=== PATIENT | male | born 1955 | race Caucasian/White ===

== ENCOUNTER 2018-03-19 07:16 | Day surgery (SDC) | payer OTHER, SELFPAY ==
--- NOTE | 2018-03-19 | COLBX_PTH ---
PATIENT: MEIR LANDRUM LOC: EN U#:[id number] AGE/SX: 62/M ROOM: RE03/19/[address]: Dr. Marisol Colin MD : 1955 BED: DIS: 03/19/2018 SPEC #: [id number] RECD: 03/19/18 14:16 STATUS: PAT FRANCISCO #: [id number] VU: 03/19/18 00:[address]: Marisol Colin DEPT: SURGICAL PATHOLOGY RECD BY: Min Stubbs ENTERED: 03/19/18 14:16 SP TYPE: COLON BX OTHR DR: Dr. Nicolás Hernandez, DO Tissues: A - Cecum, NOS B - Descending colon Procedures: Surgery Specimen Level IV HEADER OPERATION: Colonoscopy (MAC) PRE-OP DIAGNOSIS: Screening TISSUE SUBMITTED: A ? Cecum polyp biopsy, B ? Descending colon polyp biopsy MICROSCOPIC DIAGNOSIS A. Cecum polyp, biopsy: Fragments of tubular adenoma. B. Descending colon polyp, biopsy: Fragments of tubular adenoma. BRISEYDA:alissa 03/20/18 MICROSCOPIC DESCRIPTION Slides are reviewed. GROSS DESCRIPTION A - Received in fixative is one container labeled with the patient's name and designated cecum polyp biopsy. The specimen consists of multiple irregular fragments of light mendez soft tissue that in aggregate measure 0.8 x 0.3 x 0.1 cm. The specimen is totally submitted in one cassette. B - Received in fixative is one container labeled with the patient's name and designated descending colon polyp biopsy. The specimen consists of two irregular fragments of light mendez soft tissue that in aggregate measure 0.8 x 0.3 x 0.1 cm. The specimen is totally submitted in one cassette. / SJ:alissa 03/19/18 TC:1 CPT: 70940 x2
[2018-03-19 07:34] VITALS: BP 112/81; PULSE 81; RESP 16; TEMP 36.7; O2SAT 98; BMI 28.5
[2018-03-19 10:07] VITALS: BP 112/81; BP 116/73; PULSE 87; RESP 16; TEMP 36.6; O2SAT 98
[2018-03-19 10:12] VITALS: BP 112/81; BP 121/85; PULSE 80; RESP 16; O2SAT 98
[2018-03-19 10:17] VITALS: BP 112/81; BP 127/86; PULSE 78; RESP 16; O2SAT 99
[2018-03-19 10:22] VITALS: BP 112/81; BP 123/87; PULSE 77; RESP 16; TEMP 36.4; O2SAT 99
--- NOTE | 2018-03-19 10:39 | PCM.OPRPT ---
Report of Operation Date of Procedure: 03/19/18 Pre-Operative Diagnosis: Screening for colon cancer, history of diverticulitis Post-Operative Diagnosis: Cecal and descending colon polyp, diverticulosis of the descending and sigmoid colon Surgery/Procedure Performed:: Colonoscopy with biopsy Type of Anesthesia:: MAC Anesthesiologist: Randal Watson Specimen's removed: 1 cecal polyp, 2 descending colon polyp Estimated Blood Loss (mL): Minimal Description of Procedure: Procedure: Colonoscopy After reviewing the risks benefits, the patient was deemed in satisfactory condition to undergo procedure. After obtaining informed consent, the scope was passed under direct visualization. Throughout the procedure, the patient's blood pressure pulse and position saturations were monitored continuously anesthesia. The colonoscope was introduced through the anus and advanced to the cecum, identified by the appendiceal orifice, IC valve and transillumination. The colonoscopy was performed without difficulty. The patient tolerated procedure well. Quality of bowel prep was good. Findings: The perianal and digital rectal exam were normal. Small linear cecal polyp was seen in the cecum and removed completely with cold forceps biopsies. Two additional small sessile polyps are seen in the descending colon and removed completely with cold forceps biopsies. There is also noted to be moderate diverticulosis of the descending and sigmoid colon. Otherwise the colon (entire examined portion) appeared normal. Retroflexed view of the distal rectum and anal verge was normal and showed no anal or rectal abnormalities Impression: 1. Small cecal and descending colon polyps removed completely with cold forceps biopsies. 2. Moderate diverticulosis of the descending and sigmoid colon 3. The distal rectal and anal verge were normal on retroflexed view. Recommendations: Await biopsies Repeat colonoscopy in 3-5 years for screening purposes depending on biopsies - Complications None
[2018-03-19 10:44] VITALS: BP 112/81
== END 2018-03-19 10:51 | disposition home or self-care (01) ==
LOC: EN 07:16 → AC 07:17
PROVIDERS: Family Provider Family Medicine; PCP Family Medicine; Visit Provider Surgery
PROC: 0DJD8ZZ Inspection of Lower Intestinal Tract, Via Natural or Artificial Opening Endoscopic (ICD-10-PCS; CPT 45378; principal; 2018-03-19 08:25)
DX: Z12.11 Encounter for screening for malignant neoplasm of colon (principal); K57.90 Diverticulosis of intestine, part unspecified, without perforation or abscess without bleeding; D12.0 Benign neoplasm of cecum; D12.4 Benign neoplasm of descending colon; I25.10 Atherosclerotic heart disease of native coronary artery without angina pectoris; Z95.5 Presence of coronary angioplasty implant and graft; I10 Essential (primary) hypertension; E78.5 Hyperlipidemia, unspecified; G47.33 Obstructive sleep apnea (adult) (pediatric); M19.90 Unspecified osteoarthritis, unspecified site; Z85.828 Personal history of other malignant neoplasm of skin; Z79.02 Long term (current) use of antithrombotics/antiplatelets; Z79.899 Other long term (current) drug therapy; M51.36 Other intervertebral disc degeneration, lumbar region
CPT/HCPCS: 45380; 88305; J7120

== ENCOUNTER → 2018-07-09 06:43 | Outpatient (CLI) | payer OTHER, SELFPAY ==
--- NOTE | 2018-07-09 06:48 | CT_ITS ---
STUDY: LOW DOSE CT LUNG CANCER SCREENING REASON FOR EXAM: Male, 63 years old. 45 pack-year history. Current smoker. RADIATION DOSAGE (If Supplied By Facility): CTDIvol = ( 4.02 ) mGy, DLP = ( 141.95 ) mGycm TECHNIQUE: No contrast was administered. Low dose technique was utilized (average mAS-38 and kVp 120). 1.25 mm axial source images with a slice interval of 1.25-mm were reconstructed in lung windows. 2.5 mm axial source images with a slice interval of 2.5-mm were reconstructed in lung windows. 5.0 mm axial source images with a slice interval of 5.0-mm were reconstructed in soft tissue windows. Nodule measured using lung windows on PACS and/or independent workstation with automated measurement of minimum and maximum diameter. Nodule measurement reported as average diameter rounded to the nearest whole number. Growth is defined as an increase ins size of greater than 1.5 mm. COMPARISON: Chest, April 17, 2017. NODULES: Total lung nodules (excluding granulomas): Emphysema: There are mild emphysematous changes. There is evidence of subpleural fibrosis and honeycombing in the anterior upper lobes. Endobronchial lesion: None Aorta: There is atherosclerotic tortuosity of the thoracic aorta without aneurysm. Coronary arteries: There are coronary artery calcifications. There is evidence of coronary stents. Heart: The heart is normal in size. Normal pericardium. Pulmonary artery: Normal Mediastinal nodes: None Other chest and abdominal findings: Minimal degenerative changes on the thoracic spine. 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 IMPORTANT NOTES FOR USE: ACR Lung-RADS Version 1.0 Assessment Categories Release Date: January 03, 2014 Category: Coded 0-4 bases on nodule(s) with highest degree of suspicion. Negative screen is defined as categories 1 and 2; a positive screen is defined as categories 3 and 4. Category 3 and 4A nodules that are unchanged on interval CT should be coded as category 2, and individuals returned to screening in 12 months. Category 4X: Category 3 or 4 nodules with additional imaging findings that increase the suspicion of lung cancer, such as spiculation, GGN that doubles in size in 1 year, enlarged lymph notes, etc. Category Modifiers: S (significant finding unrelated to lung cancer) and C (prior history of treated lung cancer) may be added to the 0-4 Lung-RADS Electronically Signed: Lazaro Corey DO at 20:20 EDT Tel [phone], Service support ,
== END ==
PROVIDERS: Family Provider Family Medicine; PCP Family Medicine; Referring Provider Family Medicine; Visit Provider Family Medicine
DX: Z87.891 Personal history of nicotine dependence (principal); Z72.0 Tobacco use; Z12.2 Encounter for screening for malignant neoplasm of respiratory organs
CPT/HCPCS: G0297

== ENCOUNTER → 2018-07-22 08:13 | Outpatient (CLI) | payer OTHER, SELFPAY ==
[2018-07-22 10:13] LABS: AST(SGOT) 22 U/L (15-37); Alanine Aminotransfer ALT/SGPT 33 U/L (16-61); Albumin, Serum 4.1 g/dL (3.2-5.0); Alkaline Phosphatase 72 U/L (45-117); Bilirubin, Direct 0.13 mg/dL (0.00-0.30); Cholesterol 192 mg/dL (200); Globulin 2.8 g/dL (2.2-4.2); High Density Lipoprotein 51 mg/dL; PSA,Total - Annual Screen 0.87 ng/mL (0.00-4.00); Protein, Total 6.9 g/dL (6.4-8.2); Triglycerides 198 mg/dL; Very Low Density Lipoprotein 40 mg/dL (5-40)
== END ==
PROVIDERS: Physician Assistant Medical; Family Provider Family Medicine; PCP Family Medicine; Referring Provider Internal Medicine Cardiovascular Disease; Visit Provider Internal Medicine Cardiovascular Disease
DX: E78.5 Hyperlipidemia, unspecified (principal); Z12.5 Encounter for screening for malignant neoplasm of prostate
CPT/HCPCS: 36415; 80061; 80076; 84153; G0103

== ENCOUNTER → 2018-08-21 09:39 | Outpatient (CLI) | payer OTHER, SELFPAY ==
[2018-07-23 09:58] VITALS: BMI 30.2
[2018-08-21 09:42] LABS: Bacteria 0 SEEN /hpf (None Seen); Mucous, Urine 0 SEEN /hpf (<or=2+); Red Blood Cells-Urine 0 SEEN /hpf (0-5); Squamous Epithelial Cells - UA 0 SEEN /hpf (0-5); White Blood Cells 0 SEEN /hpf (0-5)
[2018-08-21 12:33] LABS: Color, Urine Yellow (Yellow); Glucose, Dipstick Normal (Normal); Ketone-Dipstick Negative (Negative); Leukocyte Esterase-Dipstick Negative /ul (Negative); Nitrite-Dipstick Negative (Negative); Occult Blood-Urine Negative /ul (Negative); Protein-Dipstick Negative (Negative); Urine Bilirubin Dipstick Negative (Negative); Urine Clarity Clear (Clear); Urine Urobilinogen Normal (Normal)
[2018-08-21 12:48] LABS: Absolute Lymphocyte Count 1.94 X10^3/ul (0.83-4.51); Basophil# 0.06 X10^3/uL; Basophil% 0.5 % (0-1); Eosinophil# 0.47 X10^3/uL; Eosinophils% 3.8 % (0-5); Hematocrit 48.1 % (40-54); Hemoglobin 16.4 g/dl (13.0-16.5); Lymphocyte # 1.94 X10^3/ul (4.0); Lymphocyte % 15.6 % (19-41); Mean Corp Hgb Conc 34.1 g/gl (32-36); Mean Corpuscular Hgb 31.1 pg (27.0-32.0); Mean Corpuscular Volume 91.3 fL (80-94); Mean Platelet Vol. 9.2 fl (6.2-12.0); Monocyte# 0.94 X10^3/uL; Monocyte% 7.6 % (0-10); Neutrophil # 8.95 X10^3/uL (2.7-7.7); Platelet Count 309 K/mm3 (150-450); RBC Distribution Width CV 13.1 % (11.6-14.6); RBC Distribution Width SD 43.3 fl (35.1-43.9); Red Blood Count 5.27 M/mm3 (4.6-6.2); White Blood Count 12.4 K/mm3 (4.4-11.0)
[2018-08-21 13:02] LABS: POSITIVE COUNT NO; POSITIVE DIFFERENTIAL NO; POSITIVE MORPHOLOGY NO
[2018-08-21 13:45] LABS: ALB/GLOB Ratio 1.1 RATIO (0.9-2.4); AST(SGOT) 27 U/L (15-37); Alanine Aminotransfer ALT/SGPT 39 U/L (16-61); Albumin, Serum 3.8 g/dL (3.2-5.0); Alkaline Phosphatase 75 U/L (45-117); Anion Gap 8 (5-15); BUN 18 mg/dL (7-18); BUN/Creat Ratio 17.6 RATIO (10-20); Calcium,Total 9.3 mg/dL (8.5-10.1); Chloride 106 mmol/L (98-107); Creatinine, Serum 1.02 mg/dL (0.70-1.30); EST Glomerular Filtration Rate 79 mL/min (>60); Est Glom Filt Rate - Afr Amer 95 mL/min (>60); Globulin 3.5 g/dL (2.2-4.2); Glucose 89 mg/dL (74-106); Potassium 4.3 mmol/L (3.5-5.1); Protein, Total 7.3 g/dL (6.4-8.2); Sodium Level 140 mmol/L (136-145)
--- OUTSIDE RECORDS SUMMARY | 2018-10-06 23:29 | XMS RPT_ITS ---
:1955 Author Organization OHIP Support Name Relationship Address Phone BABGIULIANAS, LUIS ENRIQUE Unavailable [address] + [place] [address] S Unavailable Unavailable Unavailable LUCITA JS Unavailable [address] + [place] [address] BABBES, LUIS ENRIQUE Unavailable [address] + [place] [address] S Unavailable Unavailable Unavailable JACQUES LANDRUMA Unavailable [address] + [place] [address] BABBES, LUIS ENRIQUE Unavailable [address] + [place] [address] S Unavailable Unavailable Unavailable JACQUES LANDRUMA Unavailable [address] + [place] [address] BABBES, LUIS ENRIQUE Unavailable [address] + [place] [address] S Unavailable Unavailable Unavailable LUCITA JS Unavailable [address] + [place] [address] BABBES, LUIS ENRIQUE Unavailable [address] + [place] [address] S Unavailable Unavailable Unavailable JACQUES LANDRUMA Unavailable [address] + [place] [address] BABBES, LUIS ENRIQUE Unavailable [address] + [place] [address] S Unavailable Unavailable Unavailable JACQUES LANDRUMA Unavailable [address] + [place] [address] BABBES, LUIS ENRIQUE Unavailable [address] + [place] [address] S Unavailable Unavailable Unavailable BABBES, LUIS ENRIQUE Unavailable [address] + [place] [address] S Unavailable Unavailable Unavailable BABBES, LUIS ENRIQUE Unavailable [address] + [place] [address] S Unavailable Unavailable Unavailable BABBES, LUIS ENRIQUE Unavailable NA + [place], [place] S Unavailable Unavailable Unavailable BABBES, LUIS ENRIQUE Unavailable NA + [place], [place] S Unavailable Unavailable Unavailable BABBES, LUIS ENRIQUE Unavailable [address] [phone] [place] [address] S Unavailable Unavailable Unavailable Care Team Providers Name Role Phone Nicolás Hernandez Attending Unavailable David, Nicolás Primary Care Unavailable Nicolás Hernandez Attending Unavailable David, Nicolás Referring Unavailable David, Nicolás Primary Care Unavailable Saul Arias Attending Unavailable Saul Arias Referring Unavailable David, Nicolás Primary Care Unavailable Jayshree Gaytan Attending Unavailable David, Nicolás Referring Unavailable David, Nicolás Primary Care Unavailable Wayt, Amarjit Attending Unavailable David, Nicolás Referring Unavailable Wayt, Amarjit Attending Unavailable Wayt, Amarjit Referring Unavailable David, Nicolás Primary Care Unavailable Robotham, Marisol Attending Unavailable David, Nicolás Referring Unavailable David, Nicolás Primary Care Unavailable Robotham, Marisol Attending Unavailable Robotham, Marisol Referring Unavailable David, Nicolás Primary Care Unavailable Robotham, Marisol Attending Unavailable Robotham, Marisol Referring Unavailable David, Nicolás Primary Care Unavailable Robotham, Marisol Consulting Unavailable David, Nicolás Attending Unavailable David, Nicolás Referring Unavailable David, Nicolás Primary Care Unavailable Saul Arias Attending Unavailable MoodisSaul peraza Referring Unavailable David, Nicolás Primary Care Unavailable Jayshree Gaytan Attending Unavailable PROBLEMS PROBLEMS DATE TYPE CONDITION / CODE ATTENDING STATUS SOURCE 09/24/2018 Unknown M54.5 - Low back pain Dipesh Beaversew Active [place] / [facility]54.5([facility]-10) [facility] 09/24/2018 Unknown M25.551 - Pain in Nimesh Amarjit Active [place] right hip / Community M25.551(ICD-10) Hospital Repository 08/28/2018 Unknown R10.9 - Unspecified Nicolás Hernandez Active [facility] abdominal pain / Community R10.9(ICD-10) Hospital Repository 08/28/2018 Unknown K57.92 - Nicolás Hernandez Active [place] [facility] intestine, [facility] unspecified, without Repository perforation or abscess without bleeding / K57.92(ICD-10) 07/23/2018 Unknown I25.10 - Gaytan, Active [place] Atherosclerotic heart Jayshree [facility] disease of [facility] coronary artery Repository without angina pectoris / I25.10(ICD-10) 07/23/2018 Unknown I10 - Essential Gaytan, Active [place] (primary) [facility] hypertension / Hospital I10(ICD-10) Repository 07/23/2018 Unknown E78.00 - Pure Gaytan, Active [facility] hypercholesterolemia, Jayshree [facility] unspecified / Hospital E78.00(ICD-10) Repository 02/04/2018 Unknown Z87.19 - Personal Cristi, Active [place] history of other [facility] diseases of the Hospital digestive system / Repository Z87.19(ICD-10) 02/04/2018 Unknown Z12.11 - Encounter Cristi Active [place] for screening for [facility] malignant neoplasm of [facility] colon / Repository Z12.11(ICD-10) PROCEDURES PROCEDURES No Procedure Records FoundRESULTS RESULTS ORTHOPEDIC VISIT Observed: 09/24/2018 Status: F Source: [place] REPORT 12:38 PM [facility] REPOSITORY [facility] [address] [place], [place] [id number] OFFICE VISIT Date of Service: 09/24/18 MR#: [id number] Acct: [id number] Name: AMOL LANDRUM Delta Rep #: [id number] : 1955 Provider: DANIE Beavers Age/Sex: 63/M Location: [facility] Status: Signed Intake Vital Signs09/24/18 Body Mass Index (BMI) 30.2 09/24/18 Height 5 ft 11 in 09/24/18 Weight: 212 lb 09/24/18 Body Mass Index (BMI) 29.5 Intake Visit Reasons: RIGHT HIP Is patient in pain?: Yes Pain scale (1-10): 4 Allergies Penicillins [PCN] Allergy (Verified 09/24/18 09:48) Itching rosuvastatin [From Crestor] Adverse Reaction (Verified 09/24/18 09:48) Other simvastatin [From Zocor] Adverse Reaction (Verified 09/24/18 09:48) Other Medications Naproxen Sodium [Aleve] 440 mg PO BID 03/27/17 [History Confirmed 07/23/18] Nitroglycerin [Nitrostat] 0.4 mg SUBLINGUAL Q5M PRN 03/27/17 [History Confirmed 07/23/18] clopidogrel 75 mg tablet 75 mg PO DAILY #90 tab 10/24/17 [Rx Confirmed 07/23/18] atorvastatin 10 mg tablet 5 mg PO .QOD tab 07/23/18 [History] ezetimibe 10 mg tablet 5 mg PO .QOD tab 07/23/18 [History] varenicline 1 mg tablet 1 mg PO BID 07/23/18 [History Confirmed 07/23/18] PFSH Medical History History of heart attack (Chronic) Diverticulitis (Chronic) Arthritis (Acute) Seasonal allergies (Acute) Hemorrhoids (Acute) Hx of squamous cell carcinoma of skin (Acute) GO (obstructive sleep apnea) (Chronic) Hyperlipidemia (Chronic) Hypertension (Chronic) CAD (coronary artery disease) (Chronic) Surgical History Hx of shoulder surgery (Resolved) History of left heart catheterization (Resolved) Hx of knee surgery (Resolved) Family History Father Hypertension CAD (coronary artery disease) Mother CAD (coronary artery disease) Brother Cancer Skin cancer- Outside of anus Social History Smoking Status: Current every day smoker second hand exposure: Yes alcohol intake: never substance use type: does not use caffeine: Yes Type: coffee Number of servings: 3 what type of physical activity do you participate in: none frequency: does not exercise seatbelt use: always HPI RIGHT HIP: Details: AMOL LANDRUM is a 63 year old M here today for right hip pain. He states that he has had right hip pain for about 2 years. He fell off his deck about 2 years ago. He had xrays at that time which showed no fracture. 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 Patient has increased pain with ambulation and climbing ladders. Patient has decreased hip range of motion. He has difficulty sleeping at night due to his pain. He walks with an antalgic gait. Patient complains of pain over his anterior and posterior hip. He also notes he has a history of back issues which he has a home exercise program for. Patient states that he had heart stents and had a hematoma in his groin, which is the area that is painful. He has been applying icy hot which is not helpful. He denies any formal physical therapy or injections. He denies any recent xrays or recent MRI. ROS Const Reports system reviewed and no additional complaints, except as docu Eyes Reports system reviewed and no additional complaints, except as docu ENT Reports system reviewed and no additional complaints, except as docu Card Reports system reviewed and no additional complaints, except as docu Resp Reports system reviewed and no additional complaints, except as docu GI Reports system reviewed and no additional complaints, except as docu Reports system reviewed and no additional complaints, except as docu Musc Reports joint pain, Reports limited joint movement Skin/Breast Reports system reviewed and no additional complaints, except as docu Neuro Yes system reviewed and no additional complaints, except as docu Psych Reports system reviewed and no additional complaints, except as docu Endo Reports system reviewed and no additional complaints, except as docu Ortho Exam Right Hip Hip: absent soft tissue swelling, absent erythema, absent TTP Greater Troch, absent eccymosis internal rotation @90 degree flexion: 25 degrees external rotation @90 degree extension: 70 degrees Impingement Test: 1 Labral Stress Test: 1 Special Tests: No pain with log roll, No IT band snap, No KADEN test Homans Sign: No HIP: Today in the office patient has no evident abnormalities on inspection of the right hip. He has no localized or generalized swelling and no bruising/ecchymosis or other skin changes. Patient does have normal sensation throughout the lower extremity. Patient does have anterior hip pain with flexion of the hip against resistance. He has normal extension, abduction, and adduction with and without resistance. He does also have a very evident limited internal rotation compared to the left hip. He has a slight limitation of external rotation compared to the left as well. the rest of the movements are pretty comparable to the left hip. He has some minor tightness of the IT band at the same time a negative Kaden test. He has very minimal tenderness on palpation of the greater trochanter bursa at the same time is not consistently reproducible. There is no evident instability of the hip throughout movements. There is no grinding, snapping, clicking, or laxity. He has a negative Betty test Spine SPINE TESTING CERVICAL THORACIC LUMBAR Musculoskeletal Thoracic/Lumbar Spine: straight leg raise negative bilaterally Strength 0=absent - 5=normal Assessment AND Plan Problems 1. Right hip pain M25.551 2. Arthritis of right hip M16.11 Plan Obtained Xrays of patient's right hip. Personally reviewed Xrays. There is no obvious fracture, dislocation, or lucency noted. Patient has very evident femoral acetabular arthritis noted on the inferior and superior margins of the joint. He has evidence of impingement of superior margin as well. See chart for further details. This time patient presents the office with a 2+ year history of hip pain that primarily occurs in the anterior hip with some posterior as well. Patient does have a history of some back issues and therefore does have some radiating type pains down the lateral aspect of the leg and it does cross the knee. He states these pains are very different than the pain he gets in the hip. We did go over his x-rays today which show very evident moderate amount of arthritis throughout the hip joint. This is very much likely at least part of the pains that he has. Patient was told at one point that he would need arthroplasty and this is definitely a possibility seen the x-rays. At this time patient though does not wish to proceed with any type of surgical intervention. At this time then after discussion we are going to go ahead and start him in some physical therapy as well as have him see pain management for an intra-articular joint injection under fluoroscopy. I explained that this often times is helpful for only a short amount of time at the same time would help him decide how much of pain is coming from the arthritis and how much could be a result of the back problems. Would also definitely recommend that he work on some core strength and stability for the back as well. I would like patient to return to our office after he has the injection and has gone through physical therapy and meet with Dr. Mcclure who does joint arthroplasty here. In the meantime patient is able to ice, heat, and/or anti-inflammatories as needed for pain and inflammation. He has been taking anti-inflammatories for a long time and thus we did discuss the concerns or risks associated with the such as ulcers, GI bleeds, or other kidney dysfunction. Try to use only as needed. patient is to monitor for signs or symptoms that would point more to the back which include numbness or tingling down the leg, weakness of the lower extremity, change in bowel or bladder dysfunction, and/or any saddleback paresthesias. He needs to notify immediately of any of these concerns or complaints. All of patient's questions were answered at this time his satisfaction. This note was generated with goTennaation software. It may contain incorrect words, spelling, and punctuation that were not noted in checking the note before signing. Orders Orders: Plan Detail Follow Up 8 Weeks Coding Level of Care Code Off vis,new,level 3 Diagnoses Right hip pain M25.551 Arthritis of right hip M16.11 09/24/18 1238 <Electronically signed by Amarjit HELTON> Date Amarjit HELTON Cosigner Signature: Date (if applicable) CC: HIP, UNI W/ PELVIS Observed: 09/24/2018 Status: F Source: [place] 2-3 VIEWS 9:55 AM [facility] REPOSITORY [facility] Imaging Services [address] [place] [address] HIP, UNI W/ Pelvis 2-3 Views MR#: [id number] Acct: [id number] Name: AMOL LANDRUM Rep #: [id number] : 1955 M 63 From: Gil Reveles MD PCP: Nicolás Hernandez DO Status: REG CLI Study: HIP, UNI W/ Pelvis 2-3 Views Date of Exam: 09/24/18 Exam# [id number] Ordering Dr: Amarjit Beavers STUDY: X-RAY - RIGHT HIP and pelvis REASON FOR EXAM: Male, 63 years old. Right hip and lower back pain TECHNIQUE: 2 views of the hip. One view of the pelvis. COMPARISON: None. FINDINGS: The bony pelvis is intact with no evidence of fracture or lytic or blastic osseous process. The SI joints are within normal limits. There are moderately severe arthritic changes of the right hip. Joint space narrowing is noted superiorly. There are mild arthritic changes with joint space narrowing of the left hip. There is no evidence of left or right hip fracture, dislocation, or lytic or blastic osseous process. RAD/HIP, UNI W/ Pelvis 2-3 Views IMPRESSION: Degenerative changes of the hips right side more severely affected than left. The bony pelvis is intact with no evidence of fracture or lytic or blastic osseous process. Electronically Signed: Gil Reveles MD at 23:39 EST , Service support , CC: DANIE Beavers; Nicolás Hernandez DO Business Lawyer: Signed L/S SPINE COMP/W Observed: 09/24/2018 Status: F Source: [place] BENDING VIEWS 9:55 AM [facility] REPOSITORY [facility] Imaging Services [address] [place] [address] L/S Spine Comp/w Bending Views MR#: [id number] Acct: [id number] Name: AMOL LANDRUM Rep #: [id number] : 1955 63 From: Gil Reveles MD PCP: Nicolás Hernandez DO Status: REG CLI Study: L/S Spine Comp/w Bending Views Date of Exam: 09/24/18 Exam# [id number] Ordering Dr: Amarjit Beavers STUDY: X-RAY - LUMBOSACRAL SPINE REASON FOR EXAM: Male, 63 years old. Right hip, lower back pain TECHNIQUE: 6 view(s) of the lumbosacral spine were obtained. COMPARISON: Previous study of 11/12/2016 FINDINGS: Normal lumbar lordosis. There is a minimal lumbar dextroscoliosis with slight rotatory component. There is normal alignment of the vertebrae. There is mild endplate spondylosis at L4 and L5. There is narrowing of the L4-5 and L5-S1 disc spaces. Normal bilateral sacral ala, sacroiliac joints, and visualized sacrum. Normal visualized soft tissue structures. RAD/L/S Spine Comp/w Bending Views IMPRESSION: Endplate spondylosis of L4 and L5. Narrowing of the L4-5 and L5-S1 disc spaces. There is no evidence of fracture, spondylolysis, or spondylolisthesis. There is a minimal lumbar dextroscoliosis with slight rotatory component. There is no significant interval change. Electronically Signed: Gil Reveles MD at 23:53 EST , Service support , CC: DANIE Beavers; Nicolás Hernandez DO Business Lawyer: Signed ABDOMEN SINGLE VIEW Observed: 08/28/2018 Status: F Source: [place] 10:36 AM [facility] REPOSITORY [facility] Imaging Services [address] [place] [address] Abdomen Single View MR#: [id number] Acct: [id number] Name: AMOL LANDRUM Rep #: [id number] : 1955 63 From: Bryan Tellez MD PCP: Nicolás Hernandez DO Status: REG CLI Study: Abdomen Single View Date of Exam: 08/28/18 Exam# [id number] Ordering Dr: Nicolás Hernandez DO STUDY: X-RAY - ABDOMEN/PELVIS REASON FOR EXAM: Male, 63 years old. Generalized lower abdominal pain. History of recent diverticulitis. TECHNIQUE: AP supine and upright views of the abdomen and pelvis. COMPARISON: None. FINDINGS: Normal visualized lung bases. There is an unremarkable bowel gas pattern. There is no demonstrated free abdominal air. The visualized liver, spleen and kidneys are grossly normal in size and morphology. Normal soft tissue structures. Normal visualized osseous structures. RAD/Abdomen Single View IMPRESSION: Normal x-ray examination of the abdomen and pelvis. Electronically Signed: Bryan Tellez MD at 15:02 EST Tel [phone], Service support , CC: Nicolás Hernandez DO Business Lawyer: Signed CBC W/DIFF, AUTOMATED Collected: 08/28/2018 Status: F Source: [place] 10:21 AM [facility] REPOSITORY TYPE CODE TESTS RESULT OUT OF RANGE REFERENCE UNITS LAB L100.1000 4.4-11.0 K/mm3 Normal WBC 8.2 LAB L100.1200 4.6-6.2 M/mm3 Normal RBC 5.37 LAB L100.1300 13.0-16.5 g/dl High HGB 16.7 LAB L100.1400 40-54 % Normal HCT 48.7 LAB L100.1500 80-94 fL Normal MCV 90.7 LAB L100.1600 27.0-32.0 pg Normal MCH 31.1 LAB L100.1700 32-36 g/gl Normal MCHC 34.3 LAB L100.1810 11.6-14.6 % Normal RDW CV 13.2 LAB L100.1820 35.1-43.9 fl Normal RDW SD 43.6 LAB L100.1900 150-450 K/mm3 Normal PLT 288 LAB L100.2000 6.2-12.0 fl Normal MPV 9.0 LAB L100.2100 47-70 % Normal NEUT% 64.2 LAB L100.2200 19-41 % Low LY% 18.4 LAB L100.2300 0-10 % High MONO% 11.6 LAB L100.2400 0-5 % Normal EO% 4.5 LAB L100.2500 0-1 % Normal BASO% 0.7 LAB L100.2550 0.0-0.9 % Normal IM GRAN % 0.600 Result Comment: IG% - Immature Granulocytes (promyelocytes, myelocytes and metamyelocytes) > 1% indicates that a LEFT SHIFT is Present. LAB L100.2620 2.0-7.7 X10 3/uL Normal Absolute Neut 5.3 LAB L100.2720 0.83-4.51 X10 3/ul Normal Absolute Lymph 1.51 Performed By: #### L100.0100 #### [facility] [address] [place], [address] CRP Collected: 08/28/2018 Status: F Source: [place] 10:21 AM [facility] REPOSITORY TYPE CODE TESTS RESULT OUT OF RANGE REFERENCE UNITS LAB L501.6710 0.0-3.0 mg/L High 3.59 C-REACTIVE PROT Result Comment: C-Reactive Protein (CRP) provides useful information for the diagnosis, therapy and monitoring of inflammatory processes and associated diseases. For the evaluation of Relative Risk for Cardiovascular Disease, a High Sensitivity CRP (HSCRP) should be ordered. Performed By: #### L501.6710 #### [facility] [address] [place], [address] URINALYSIS, COMPLETE Collected: 08/21/2018 Status: F Source: [place] 9:41 AM [facility] REPOSITORY Order Comment: How was Urine Obtained? Urine, Random TYPE CODE TESTS RESULT OUT OF RANGE REFERENCE UNITS LAB L400.3000 Yellow COLOR Normal Yellow LAB L400.3050 Clear Normal CLARITY Clear LAB L400.3200 Normal mg/dl Normal GLUCOSE, UR Normal LAB L400.3300 Negative mg/dL Normal BILIRUBIN URINE Negative LAB L400.3400 Negative mg/dl Normal KETONE UR Negative LAB L400.3465 1.002-1.030 Normal SP.GR. DIPSTX 1.010 LAB L400.3550 5.0 - 8.0 pH UR Normal 7.0 LAB L400.3600 Negative mg/dl PROT Normal DIPSTX Negative LAB L400.3700 Normal mg/dl Normal UROBILI Normal LAB L400.3750 Negative Normal NITRITE UR Negative LAB L400.3780 Negative /ul Normal OCCULT BLOOD-UR Negative LAB L400.3800 Negative /ul LEUK Normal ESTERASE Negative LAB L400.4050 0-5 /hpf WBC 0 Normal SEEN LAB L400.4100 0-5 /hpf 0 Normal RBC-UA SEEN LAB L400.4150 0-5 /hpf SQUAM 0 Normal EPI SEEN LAB L400.4300 None Seen /hpf 0 Normal BACTERIA SEEN LAB L400.4350 <or=2+ /hpf 0 Normal MUCUS, URINE SEEN Performed By: #### L400.0001 #### [facility] [address] [place], [place], [address] CBC W/DIFF, AUTOMATED Collected: 08/21/2018 Status: F Source: [place] 9:41 AM [facility] REPOSITORY TYPE CODE TESTS RESULT OUT OF RANGE REFERENCE UNITS LAB L100.1000 4.4-11.0 K/mm3 High WBC 12.4 LAB L100.1200 4.6-6.2 M/mm3 Normal RBC 5.27 LAB L100.1300 13.0-16.5 g/dl Normal HGB 16.4 LAB L100.1400 40-54 % Normal HCT 48.1 LAB L100.1500 80-94 fL Normal MCV 91.3 LAB L100.1600 27.0-32.0 pg Normal MCH 31.1 LAB L100.1700 32-36 g/gl Normal MCHC 34.1 LAB L100.1810 11.6-14.6 % Normal RDW CV 13.1 LAB L100.1820 35.1-43.9 fl Normal RDW SD 43.3 LAB L100.1900 150-450 K/mm3 Normal PLT 309 LAB L100.2000 6.2-12.0 fl Normal MPV 9.2 LAB L100.2100 47-70 % High NEUT% 72.0 LAB L100.2200 19-41 % Low LY% 15.6 LAB L100.2300 0-10 % Normal MONO% 7.6 LAB L100.2400 0-5 % Normal EO% 3.8 LAB L100.2500 0-1 % Normal BASO% 0.5 LAB L100.2550 0.0-0.9 % Normal IM GRAN % 0.500 Result Comment: IG% - Immature Granulocytes (promyelocytes, myelocytes and metamyelocytes) > 1% indicates that a LEFT SHIFT is Present. LAB L100.2620 2.0-7.7 X10 3/uL High Absolute Neut 9.0 LAB L100.2720 0.83-4.51 X10 3/ul Normal Absolute Lymph 1.94 Performed By: #### L100.0100 #### [facility] [address] [place], [address] COMPREHENSIVE METABOLIC Collected: 08/21/2018 Status: F Source: [place] [facility] 9:41 AM [facility] REPOSITORY TYPE CODE TESTS RESULT OUT OF RANGE REFERENCE UNITS LAB L501.0100 74-106 mg/dL Normal GLU 89 Result Comment: Please note revised GLUCOSE reference range effective 2017. LAB L501.1000 7-18 mg/dL Normal BUN 18 LAB L501.1100 0.70-1.30 mg/dL Normal CREAT,SERUM 1.02 Result Comment: The validity of the calculated GFR AND GFRAA in patients over 70 years has not been determined. Clinical correlation is essential. LAB L501.1110 >60 mL/min Normal EST GFR 79 Result Comment: Non- GFR Calc LAB L501.1115 >60 mL/min Normal EST GFR - AA 95 Result Comment: GFR Calc LAB L501.1300 10-20 RATIO Normal BUN/CRE 17.6 LAB L501.1500 6.4-8.2 g/dL T Normal PROT 7.3 LAB L501.1800 3.2-5.0 g/dL Normal ALB 3.8 LAB L501.1950 2.2-4.2 g/dL Normal GLOB 3.5 LAB L501.2000 0.9-2.4 RATIO Normal A/G 1.1 LAB L501.2200 8.5-10.1 mg/dL CA Normal 9.3 LAB L501.4100 15-37 U/L Normal AST 27 LAB L501.4305 45-117 U/L Normal ALK P 75 LAB L501.4405 16-61 U/L Normal ALT 39 LAB L501.4600 0.20-1.00 mg/dL T Normal BILI 0.70 LAB L501.5300 136-145 mmol/L NA Normal 140 LAB L501.5600 3.5-5.1 mmol/L K Normal 4.3 LAB L501.5900 98-107 mmol/L CL Normal 106 LAB L501.6100 21.0-32.0 mmol/L Normal CO2 26.0 LAB L501.6200 5-15 Normal GAP 8 Performed By: #### L500.4050, L501.6710 #### [facility] [address] [place], [address] CRP Collected: 08/21/2018 Status: F Source: [place] 9:41 AM [facility] REPOSITORY TYPE CODE TESTS RESULT OUT OF RANGE REFERENCE UNITS LAB L501.6710 0.0-3.0 mg/L High 33.90 C-REACTIVE PROT Result Comment: C-Reactive Protein (CRP) provides useful information for the diagnosis, therapy and monitoring of inflammatory processes and associated diseases. For the evaluation of Relative Risk for Cardiovascular Disease, a High Sensitivity CRP (HSCRP) should be ordered. Performed By: #### L500.4050, L501.6710 #### [facility] [address] [place], [address] Observed: 08/21/2018 Status: F Source: [place] CULTURE, URINE 9:41 AM [facility] REPOSITORY Urine Culture Culture exhibits no growth. Performed By: #### M100.0650 #### [facility] [facility] [address] [place], [address] CARDIOLOGY VISIT Observed: 07/23/2018 Status: F Source: ERIK REPORT 10:45 AM [facility] REPOSITORY [facility] [address] [place] [address] OFFICE VISIT Date of Service: 07/23/18 MR#: [id number] Acct: [id number] Name: AMOL LANDRUM Rep #: [id number] : 1955 Provider: Jayshree Gaytan Age/Sex: 63/M Location: [facility] [place] [facility] Status: Signed HPI HPI Details: AMOL LANDRUM, is a 63 M who presents to the office today for a cardiovascular follow-up. He has a history of premature coronary artery disease. He had an anterior myocardial infarction in 2008 at stenting to his LAD. He also has a history of hyperlipidemia and sleep apnea. Pts biggest issue is his smoking. He is trying to quit again. He did have a CT of his chest because of some atypical chest pain. This pain when away when he stopped smoking. He does not have any chest discomfort/heaviness/tightness. He does not have any worsening symptoms of shortness of breath. He denies any PND. He does not have any orthopnea. He does not have any symptoms of congestive heart failure. He does not have any palpitations that he is aware of. He does not have any lightheadedness or dizziness. He does not have any near-syncope or syncope. He does not have any lower extremity edema. He does not have any symptoms of claudication. Intake Vital Signs07/23/18 Height 5 ft 11 in 07/23/18 Weight: 217 lb 07/23/18 Body Mass Index (BMI) 30.2 07/23/18 Blood Pressure 112/70 Intake Visit Reasons: 6 M FU Micro Paleontologist Required: No Accompanied by: None Is patient in pain?: No Allergies Penicillins [PCN] Allergy (Verified 07/23/18 10:18) Itching rosuvastatin [From Crestor] Adverse Reaction (Verified 07/23/18 10:18) Other simvastatin [From Zocor] Adverse Reaction (Verified 07/23/18 10:18) Other Medications Naproxen Sodium [Aleve] 440 mg PO BID 03/27/17 [History Confirmed 07/23/18] Nitroglycerin [Nitrostat] 0.4 mg SUBLINGUAL Q5M PRN 03/27/17 [History Confirmed 07/23/18] clopidogrel 75 mg tablet 75 mg PO DAILY #90 tab 10/24/17 [Rx Confirmed 07/23/18] atorvastatin 10 mg tablet 5 mg PO .QOD tab 07/23/18 [History] ezetimibe 10 mg tablet 5 mg PO .QOD tab 07/23/18 [History] varenicline 1 mg tablet 1 mg PO BID 07/23/18 [History Confirmed 07/23/18] Ejection fraction %: 60 to 64 PFSH Medical History History of heart attack (Chronic) Diverticulitis (Chronic) Arthritis (Acute) Seasonal allergies (Acute) Hemorrhoids (Acute) Hx of squamous cell carcinoma of skin (Acute) GO (obstructive sleep apnea) (Chronic) Hyperlipidemia (Chronic) Hypertension (Chronic) CAD (coronary artery disease) (Chronic) Surgical History Hx of shoulder surgery (Resolved) History of left heart catheterization (Resolved) Hx of knee surgery (Resolved) Family History Father Hypertension CAD (coronary artery disease) Mother CAD (coronary artery disease) Brother Cancer Skin cancer- Outside of anus Social History Smoking Status: Current every day smoker second hand exposure: Yes alcohol intake: never substance use type: does not use caffeine: Yes Type: coffee Number of servings: 3 what type of physical activity do you participate in: none frequency: does not exercise seatbelt use: always ROS Const Const: Negative for weakness, fatigue, fever(s) or headache(s) Eyes Eyes: Negative for blind spots, loss of peripheral vision or transient loss of vision ENT ENT: Negative for headache(s) Cardio Chest Pain: No Edema: None Muscle aches with walking: None Resp Respiratory: Negative for SOB with activity, SOB at rest or SOB orthopnea\SOB lying down GI GI: Negative nausea, vomiting, heartburn or vomiting blood/hematemesis : Negative for hematuria Musc Musc: Negative for muscle aches/ myalgia Neuro Neuro: Negative for weakness or headache(s) Mario Hematologic/Lymphatic: Negative for easy bleeding Endo Endo: Negative for fatigue Cardiology Exam Const Appearance: cooperative, no acute distress and well developed Orientation: alert, awake and oriented x3 Head Head: normocephalic and atraumatic Mouth: moist mucous membranes Eyes General: appearance normal, both eyes and all related structures Conjunctivae: conjunctivae normal Pupils: PERRL EOM: EOM intact bilaterally Neck Neck: normal visual inspection, no lymphadenopathy and no JVD Carotids: Negative bruit Neck Mass: Negative Neck mass Chest Chest inspection: normal inspection of the chest and symmetric chest movement Auscultation: Bilateral: Clear to Auscultation Cardio Palpation: normal PMI Rate: regular rate Rhythm: regular rhythm Heart sounds: S1 normal, S2 normal, rub and positive S4; negative gallop or murmur GI GI: normal to inspection, soft, no hepatosplenomegaly and bowel sounds present; negative tender Neuro General: alert, awake, oriented x3, CN's II-XI intact bilaterally and moves all extremities Extremities Pulses: Normal: Right Posterior Tibial Pulse, Left Posterior Tibial Pulse, Right Radial Pulse, Left Radial Pulse Lower Extremity Edema: None: Bilateral Psych Psychological: normal affect Supplemental Info Stress test in 2017 was negative for ischemia. Echocardiogram at that time demonstrated an ejection fraction of 60% with trivial mitral and tricuspid insufficiency. Trivial pulmonic insufficiency. Assessment AND Plan 1. Coronary artery disease involving [place] coronary artery of [place] heart without angina pectoris I25.10 anterior [place] (2008), stenting to LAD Plan Stable, from a cardiac standpoint patient does not have any symptoms of angina. We recommend that they continue with current aggressive medical management and risk factor modification. Orders Orders: 2. Essential hypertension I10 Plan Patient is currently not on any blood pressure lowering medications. Blood pressure is adequately controlled. We will continue to monitor. Orders Orders: 3. Pure hypercholesterolemia E78.00 Plan Recent lipid profile demonstrates total cholesterol 192, HDL 51, LDL 101. We will continue to monitor and update labs as appropriately. Orders Orders: Plan Detail Other Medications New: Additional Comments Strongly encouraged smoking cessations. Thank you for allowing us to participate in patient's plan of care, if you have any questions please do not hesitate to call. This note was generated using a voice recognition system and there may be incorrect words, spelling or punctuation errors that were not noted when reviewing the office note prior to saving. Follow Up 1 Year (PFM) 6 Months (MMM) Coding Level of Care Code Off vis,est,level 3 Diagnoses Coronary artery disease involving [place] coronary artery of [place] heart without angina pectoris I25.10 Coronary Disease-Associated Artery/Lesion type: [place] artery [place] vs. transplanted heart: [place] heart Associated angina: without angina Essential hypertension I10 Hypertension type: essential hypertension Pure hypercholesterolemia E78.00 Hyperlipidemia type: pure hypercholesterolemia Coding Level of Care Code Off vis,est,level 3 Diagnoses Coronary artery disease involving [place] coronary artery of [place] heart without angina pectoris I25.10 Coronary Disease-Associated Artery/Lesion type: [place] artery [place] vs. transplanted heart: [place] heart Associated angina: without angina Essential hypertension I10 Hypertension type: essential hypertension Pure hypercholesterolemia E78.00 Hyperlipidemia type: pure hypercholesterolemia 07/23/18 1045 <Electronically signed by Jayshree HELTON> Date Jayshree HELTON Cosigner Signature: Date (if applicable) CC: Nicolás Hernandez DO LIVER PROFILE Collected: 07/22/2018 Status: F Source: MILAN 8:17 AM [facility] REPOSITORY Order Comment: PSA FOR DR HERNANDEZ LIVER AND LIPID FOR DR GAYTAN TYPE CODE TESTS RESULT OUT OF RANGE REFERENCE UNITS LAB L501.1500 6.4-8.2 g/dL Normal T PROT 6.9 LAB L501.1800 3.2-5.0 g/dL Normal ALB 4.1 LAB L501.1950 2.2-4.2 g/dL Normal GLOB 2.8 LAB L501.4100 15-37 U/L Normal AST 22 LAB L501.4305 45-117 U/L Normal ALK P 72 LAB L501.4405 16-61 U/L Normal ALT 33 LAB L501.4600 0.20-1.00 mg/dL Normal T BILI 0.60 LAB L501.4700 0.00-0.30 mg/dL Normal D BILI 0.13 Performed By: #### L500.3400, L500.4100, L501.9910 #### [facility] [address] [place], [address] LIPID PROFILE Collected: 07/22/2018 Status: F Source: MILAN 8:17 AM [facility] REPOSITORY Order Comment: PSA FOR DR HERNANDEZ LIVER AND LIPID FOR DR GAYTAN TYPE CODE TESTS RESULT OUT OF RANGE REFERENCE UNITS LAB L501.4900 200 mg/dL Normal CHOL 192 Result Comment: <200 mg/dL Desirable 200-240 mg/dL Borderline >240 mg/dL High Risk LAB L501.5000 mg/dL Normal TRIG 198 Result Comment: The drugs N-Acetylcysteine and Metamizole may falsely depress this assay. Serum Triglycerides Reference Interval Normal <150 mg/dL Borderline high 150 - 199 mg/dL High 200 - 499 mg/dL Very High > or = 500 mg/dL LAB L501.6400 mg/dL Normal HDL 51 Result Comment: The drugs N-Acetylcysteine and Metamizole may falsely depress this assay. Reference Range HDL <40 mg/dL Low HDL Cholesterol HDL >or= 60 mg/dL High HDL Cholesterol LAB L501.6500 0-130 mg/dL Normal LDL 101 LAB L501.6600 5-40 mg/dL Normal VLDL 40 Performed By: #### L500.3400, L500.4100, L501.9910 #### [facility] [address] [place], [address] PSA,TOTAL - ANNUAL Collected: 07/22/2018 Status: F Source: MILAN SCREEN 8:17 AM [facility] REPOSITORY Order Comment: PSA FOR DR HERNANDEZ LIVER AND LIPID FOR DR GAYTAN TYPE CODE TESTS RESULT OUT OF RANGE REFERENCE UNITS LAB L501.9910 0.00-4.00 ng/mL Normal PSA,TOT 0.87 SCREEN Result Comment: This test was performed using the TPSA assay method for the [employer] chemistry system. Values obtained with different assay methods cannot be used interchangably. When changing PSA assays in the course of monitoring a patient, additional sequential testing should be carried out to confirm baseline values. Performed By: #### L500.3400, L500.4100, L501.9910 #### [facility] [address] [place], [address] LUNG Observed: 07/09/2018 Status: F Source: MILAN SCREENING 6:48 AM [facility] REPOSITORY [facility] Imaging Services [address] [place] [address] Lung Screening MR#: [id number] Acct: [id number] Name: AMOL LANDRUM Rep #: [id number] : 1955 M 63 From: Lazaro Corey DO PCP: Nicolás Hernandez DO Status: REG CLI Study: Low Dose CT Lung Screening Date of Exam: 07/09/18 Exam# [id number] Ordering Dr: Nicolás Hernandez DO STUDY: LOW DOSE CT LUNG CANCER SCREENING REASON FOR EXAM: Male, 63 years old. 45 pack-year history. Current smoker. RADIATION DOSAGE (If Supplied By Facility): CTDIvol = ( 4.02 ) mGy, DLP = ( 141.95 ) mGycm TECHNIQUE: No contrast was administered. Low dose technique was utilized (average mAS-38 and kVp 120). 1.25 mm axial source images with a slice interval of 1.25- mm were reconstructed in lung windows. 2.5 mm axial source images with a slice interval of 2.5-mm were reconstructed in lung windows. 5.0 mm axial source images with a slice interval of 5.0-mm were reconstructed in soft tissue windows. Nodule measured using lung windows on PACS and/or independent workstation with automated measurement of minimum and maximum diameter. Nodule measurement reported as average diameter rounded to the nearest whole number. Growth is defined as an increase ins size of greater than 1.5 mm. COMPARISON: Chest, April 17, 2017. NODULES: Total lung nodules (excluding granulomas): Emphysema: There are mild emphysematous changes. There is evidence of subpleural fibrosis and honeycombing in the anterior upper lobes. Endobronchial lesion: None Aorta: There is atherosclerotic tortuosity of the thoracic aorta without aneurysm. Coronary arteries: There are coronary artery calcifications. There is evidence of coronary stents. Heart: The heart is normal in size. Normal pericardium. Pulmonary artery: Normal Mediastinal nodes: None Other chest and abdominal findings: Minimal degenerative changes on the thoracic spine. 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 IMPORTANT NOTES FOR USE: ACR Lung-RADS Version 1.0 Assessment Categories Release Date: January 03, 2014 Category: Coded 0-4 bases on nodule(s) with highest degree of suspicion. Negative screen is defined as categories 1 and 2; a positive screen is defined as categories 3 and 4. Category 3 and 4A nodules that are unchanged on interval CT should be coded as category 2, and individuals returned to screening in 12 months. Category 4X: Category 3 or 4 nodules with additional imaging findings that increase the suspicion of lung cancer, such as spiculation, GGN that doubles in size in 1 year, enlarged lymph notes, etc. Category Modifiers: S (significant finding unrelated to lung cancer) and C (prior history of treated lung cancer) may be added to the 0-4 Lung-RADS Electronically Signed: Lazaro Corey DO at 20:20 EDT Tel [phone], Service support , CC: Nicolás Hernandez DO Business Lawyer: Signed OPERATIVE REPORT Observed: 03/19/2018 Status: F Source: MILAN 10:42 AM [facility] REPOSITORY [facility] Medical Records Department [address] [place] [address] Operative Report 03/19/18 1039 MR#: [id number] Acct: [id number] Name: AMOL LANDRUM Rep #: [id number] : 1955 62 From: Marisol Colin MD PCP: Nicolás Hernandez DO Status: REG [facility] Location: [place] [address] Report of Operation Date of Procedure: 03/19/18 Pre-Operative Diagnosis: Screening for colon cancer, history of diverticulitis Post-Operative Diagnosis: Cecal and descending colon polyp, diverticulosis of the descending and sigmoid colon Surgery/Procedure Performed:: Colonoscopy with biopsy Type of Anesthesia:: MAC Anesthesiologist: Randal Watson Specimen's removed: 1 cecal polyp, 2 descending colon polyp Estimated Blood Loss (mL): Minimal Description of Procedure: Procedure: Colonoscopy After reviewing the risks benefits, the patient was deemed in satisfactory condition to undergo procedure. After obtaining informed consent, the scope was passed under direct visualization. Throughout the procedure, the patient's blood pressure pulse and position saturations were monitored continuously anesthesia. The colonoscope was introduced through the anus and advanced to the cecum, identified by the appendiceal orifice, IC valve and transillumination. The colonoscopy was performed without difficulty. The patient tolerated procedure well. Quality of bowel prep was good. Findings: The perianal and digital rectal exam were normal. Small linear cecal polyp was seen in the cecum and removed completely with cold forceps biopsies. Two additional small sessile polyps are seen in the descending colon and removed completely with cold forceps biopsies. There is also noted to be moderate diverticulosis of the descending and sigmoid colon. Otherwise the colon (entire examined portion) appeared normal. Retroflexed view of the distal rectum and anal verge was normal and showed no anal or rectal abnormalities Impression: 1. Small cecal and descending colon polyps removed completely with cold forceps biopsies. 2. Moderate diverticulosis of the descending and sigmoid colon 3. The distal rectal and anal verge were normal on retroflexed view. Recommendations: Await biopsies Repeat colonoscopy in 3-5 years for screening purposes depending on biopsies - Complications None 03/19/18 1042 <Electronically signed by Marisol Colin MD> Date Marisol Colin MD CC: Nicolás Hernandez DO; Marisol Colin MD Signed COLON BIOPSY (CHOOSE Observed: 03/19/2018 Status: F Source: MILAN SITE) 12:00 AM [facility] REPOSITORY Patient: AMOL LANDRUM : 1955 (62/M) Acct Num: [id number] Phys: Cristi SHAW,Marisol Unit Num: [id number] Loc: EN Specimen: [id number] Received: 03/19/18 - 1415 Spec Type: COLON BX TISSUES TISSUES: A. Cecum, NOS B. Descending colon GROSS DESCRIPTION A - Received in fixative is one container labeled with the patient's name and designated cecum polyp biopsy. The specimen consists of multiple irregular fragments of light mendez soft tissue that in aggregate measure 0.8 x 0.3 x 0.1 cm. The specimen is totally submitted in one cassette. B - Received in fixative is one container labeled with the patient's name and designated descending colon polyp biopsy. The specimen consists of two irregular fragments of light mendez soft tissue that in aggregate measure 0.8 x 0.3 x 0.1 cm. The specimen is totally submitted in one cassette. / BRISEYDA:alissa 03/19/18 TC:1 CPT: 64347 x2 HEADER OPERATION: Colonoscopy (MAC) PRE-OP DIAGNOSIS: Screening TISSUE SUBMITTED: A Cecum polyp biopsy, B Descending colon polyp biopsy MICROSCOPIC DESCRIPTION Slides are reviewed. MICROSCOPIC DIAGNOSIS A. Cecum polyp, biopsy: Fragments of tubular adenoma. B. Descending colon polyp, biopsy: Fragments of tubular adenoma. SJ:alissa 03/20/18 Signed Paul Lee 03/20/18 <signature on file> Performed By: #### PCOLBX #### [facility] [address] [place], [address] SURGERY VISIT REPORT Observed: 02/04/2018 Status: F Source: ERIK 9:28 AM [facility] REPOSITORY [facility] [address] [place] [address] OFFICE VISIT Date of Service: 02/04/18 MR#: [id number] Acct: [id number] Name: AMOL LANDRUM Rep #: [id number] : 1955 Provider: Marisol Colin MD Age/Sex: 62/M Location: [facility] Status: Signed Intake Vital Signs02/04/18 Height 5 ft 11 in 02/04/18 Weight: 215 lb Intake Visit Reasons: TO DISCUSS GETTING C-SCOPE Micro Paleontologist Required: No Is patient in pain?: No Allergies Penicillins [PCN] Allergy (Verified 02/04/18 09:11) Itching rosuvastatin [From Crestor] Adverse Reaction (Verified 02/04/18 09:11) Other simvastatin [From Zocor] Adverse Reaction (Verified 02/04/18 09:11) Other Medications Ezetimibe [Zetia] 5 mg PO QHS 03/27/17 [History Confirmed 02/04/18] Naproxen Sodium [Aleve] 440 mg PO BID 03/27/17 [History Confirmed 02/04/18] Nitroglycerin [Nitrostat] 0.4 mg SUBLINGUAL Q5M PRN 03/27/17 [History Confirmed 02/04/18] clopidogrel 75 mg tablet 75 mg PO DAILY #90 tab 10/24/17 [Rx Confirmed 02/04/18] atorvastatin 10 mg tablet 5 mg PO QHS #45 tab 01/20/18 [Rx Confirmed 02/04/18] PFSH Medical History History of heart attack (Acute) Diverticulitis (Chronic) Arthritis (Acute) Seasonal allergies (Acute) Hemorrhoids (Acute) Hx of squamous cell carcinoma of skin (Acute) GO (obstructive sleep apnea) (Chronic) Hyperlipidemia (Chronic) Hypertension (Chronic) CAD (coronary artery disease) (Chronic) Surgical History Hx of shoulder surgery (Acute) History of left heart catheterization (Acute) Hx of knee surgery (Acute) Family History Father Hypertension CAD (coronary artery disease) Mother CAD (coronary artery disease) Brother Cancer Skin cancer- Outside of anus Social History Smoking Status: Current every day smoker second hand exposure: Yes alcohol intake: never substance use type: does not use caffeine: Yes what type of physical activity do you participate in: none frequency: does not exercise seatbelt use: always HPI HPI HPI: AMOL LANDRUM, is a 62 M who presents to the office today for screening colonoscopy. Patient was initially seen in June of last year but during that time he was having crampy suprapubic pain and did get a CT abdomen pelvis which showed acute diverticulitis and he was treated with antibiotics and it did resolve. However he did have a repeat flare in mid November and currently states that he does not have any pain in his abdomen is doing well. He does state he has bowel movements daily denies having previous scope denies any blood in the stool does state he has hemorrhoids occasionally. Denies a family history of colon cancer. 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 He was also worried about having some bumps near his anus. Exam Const General: cooperative, comfortable, no acute distress GI Inspection: non-distended Palpation: soft, nontender, no guarding Rectal Exam: visual inspection normal (Ingrown hairs surrounding anus, noninfected, clogged glands Patient was bro), hemorrhoids (Circumferential mainly internal larger on right), prostate normal, normal sphincter tone Assessment AND Plan Problems 1. Diverticulitis K57.92 Last flareup was mid November 2. Screening for colon cancer Z12.11 3. Coronary artery disease involving [place] coronary artery of [place] heart without angina pectoris I25.10 anterior [place] (2008), stenting to LAD Plan Patient reports his last flare of diverticulitis was in mid November he denies any pain since then. I have discussed the above with the patient. I have offered the patient colonoscopy for evaluation. I have explained the risks/benefits of the procedure and described the procedure. I have discussed the risks with the patient, including but not limited to: infection, bleeding, perforation of the GI tract requiring emergency surgery, inability to complete the procedure, injury to any internal organs, complications of anesthesia, etc. - the patient understands and agrees to proceed. I have answered all the patient's questions to the patient's satisfaction and the patient has no further questions. The patient has been given instructions for the colon cleansing preparation, one day of clears, MiraLAX Dulcolax split, pt will stop plavix 5 days before. Marisol Colin M.D. Pager: [phone] [facility] [address] [place] [address], [address] [place] [address] Office: [phone] Orders Orders: Medications Discontinued: varenicline (Chantix Starting Month Box) Discontinued RePO PER PKAlec Bruner ason: Pt no longer taking Plan Detail Follow Up 1 (Patient will schedule colonoscopy.) Coding Level of Care Code Off vis,est,level 3 Diagnoses Diverticulitis K57.92 Screening for colon cancer Z12.11 Coronary artery disease involving [place] coronary artery of [place] heart without angina pectoris I25.10 Coronary Disease-Associated Artery/Lesion type: [place] artery [place] vs. transplanted heart: [place] and [place] heart Associated angina: without angina 02/04/18 0928 <Electronically signed by Marisol Colin MD> Date Marisol Colin MD Cosigner Signature: Date (if applicable) CC: Nicolás Hernandez DO; Saul Arias MD CARDIOLOGY VISIT Observed: 10/06/2017 Status: F Source: ERIK REPORT 6:11 PM [facility] REPOSITORY [facility] [address] [place] [address] OFFICE VISIT Date of Service: 10/01/17 MR#: [id number] Acct: [id number] Name: AMOL LANDRUM Rep #: [id number] : 1955 Provider: Jayshree Gaytan Age/Sex: 62/M Location: [facility] Status: Signed HPI 6 M FU: Details: AMOL LANDRUM, is a 62 M who presents to the office today for a cardiovascular follow-up. He has a history of premature coronary artery disease. He had an anterior myocardial infarction in 2008 at stenting to his LAD. He also has a history of hyperlipidemia and sleep apnea. Stress test in 2017 was negative for ischemia. Echocardiogram at that time demonstrated an ejection fraction of 60% with trivial mitral and tricuspid insufficiency. Trivial pulmonic insufficiency. Pt stopped taking his Bystolic a few months ago. He did this on his own for low BP. He did not have any episodes of chest pain. He does not have any symptoms of CHF. He does not have any palpitations. He does have any lightheadedness/dizziness. He does not have any near syncope/syncope. He does not have any edema. Intake Vital Signs10/01/17 Height 5 ft 9 in 10/01/17 Weight: 210 lb 10/01/17 Body Mass Index (BMI) 31.0 10/01/17 Blood Pressure 120/80 10/01/17 Pulse Rate 84 Intake Visit Reasons: 6 M FU Allergies Penicillins [PCN] Allergy (Verified 03/27/17 13:15) Itching rosuvastatin [From Crestor] Adverse Reaction (Verified 03/27/17 13:15) Other simvastatin [From Zocor] Adverse Reaction (Verified 03/27/17 13:15) Other Medications Clopidogrel Bisulfate [Plavix] 75 mg PO DAILY 03/27/17 [History Confirmed 09/24/17] Ezetimibe [Zetia] 5 mg PO QHS 03/27/17 [History Confirmed 09/24/17] Naproxen Sodium [Aleve] 440 mg PO BID 03/27/17 [History Confirmed 09/24/17] Nitroglycerin [Nitrostat] 0.4 mg SUBLINGUAL Q5M PRN 03/27/17 [History Confirmed 09/24/17] atorvastatin 10 mg tablet 5 mg PO QHS #45 tab 08/12/17 [Rx Confirmed 09/24/17] aspirin 81 mg tablet,delayed release 81 mg PO QDAY 10/01/17 [History Confirmed 10/01/17] Ejection fraction %: 60 to 64 PFSH Medical History GO (obstructive sleep apnea) (Chronic) Hyperlipidemia (Chronic) Hypertension (Chronic) CAD (coronary artery disease) (Chronic) Family History Father Hypertension CAD (coronary artery disease) ROS Const Const: Negative for weakness, fatigue, fever(s) or headache(s) Eyes Eyes: Negative for blind spots, loss of peripheral vision or transient loss of vision ENT ENT: Negative for headache(s), Negative for dizziness, Negative for tinnitus, Negative for Nosebleed/epistaxis Cardio Chest Pain: No Palpitations: Positive for No Edema: None Muscle aches with walking: None Resp Respiratory: Negative for SOB with activity, SOB at rest or SOB orthopnea\SOB lying down GI GI: Negative nausea, vomiting, heartburn or vomiting blood/hematemesis : Negative for hematuria Musc Musc: Negative for muscle aches/ myalgia Neuro Neuro: Negative for weakness, Negative for headache(s), Negative for dizziness, Negative for near syncope, Negative for syncope, Negative for lightheadedness Mario Hematologic/Lymphatic: Negative for easy bleeding Endo Endo: Negative for fatigue Cardiology Exam Const Appearance: cooperative, no acute distress and well developed Orientation: alert, awake and oriented x3 Head Head: normocephalic and atraumatic Mouth: moist mucous membranes Eyes General: appearance normal, both eyes and all related structures Conjunctivae: conjunctivae normal Pupils: PERRL EOM: EOM intact bilaterally Neck Neck: normal visual inspection, no lymphadenopathy and no JVD Carotids: Negative bruit Neck Mass: Negative Neck mass Chest Chest inspection: normal inspection of the chest and symmetric chest movement Auscultation: Bilateral: Clear to Auscultation Cardio Palpation: normal PMI Rate: regular rate Rhythm: regular rhythm Heart sounds: S1 normal, S2 normal, rub and positive S4; negative gallop or murmur GI GI: normal to inspection, soft, no hepatosplenomegaly and bowel sounds present; negative tender Neuro General: alert, awake, oriented x3, CN's II-XI intact bilaterally and moves all extremities Extremities Pulses: Normal: Right Posterior Tibial Pulse, Left Posterior Tibial Pulse, Right Radial Pulse, Left Radial Pulse Lower Extremity Edema: None: Bilateral Psych Psychological: normal affect Assessment AND Plan 1. Coronary artery disease involving [place] coronary artery of [place] heart without angina pectoris I25.10 anterior [place] (2008), stenting to LAD Plan - DANIE Bella Stable, from a cardiac standpoint patient does not have any symptoms of angina. We recommend that they continue with current aggressive medical management and risk factor modification. 2. Essential hypertension I10 Plan - DANIE Bella Patient is currently not on any blood pressure lowering medications. Blood pressure is adequately controlled. We will continue to monitor. 3. Pure hypercholesterolemia E78.00; E78.0 Plan - DANIE Bella Recent lipid profile demonstrates total cholesterol 176, HDL 50, LDL 87. We will continue to monitor and update labs as appropriately. Plan Detail Other Orders Orders: Follow Up 9 Months (PFM) Coding Level of Care Code Off vis,est,level 3 Diagnoses Coronary artery disease involving [place] coronary artery of [place] heart without angina pectoris I25.10 Coronary Disease-Associated Artery/Lesion type: [place] artery [place] vs. transplanted heart: [place] heart Associated angina: without angina Essential hypertension I10 Hypertension type: essential hypertension Pure hypercholesterolemia E78.00; E78.0 Hyperlipidemia type: pure hypercholesterolemia 10/01/171800 <Electronically signed by Jayshree HELTON> Date Jayshree EHLTON 10/06/171810<Electronically signed by Saul Arias MD> Cosigner Signature: Date (if applicable) Saul Arias MD CC: Nicolás Hernandez DO LIVER PROFILE Collected: 10/01/2017 Status: F Source: ERIK 8:02 AM [facility] REPOSITORY Order Comment: Order Date: 01/31/17 Order Info: [id number] - *Hepatic Function Panel Order Info: [id number] - *Lipid Profile CC PCP Comments: 12 hours fasting, may have water. TYPE CODE TESTS RESULT OUT OF RANGE REFERENCE UNITS LAB L501.1500 6.4-8.2 g/dL Normal T PROT 7.3 LAB L501.1800 3.4-5.0 g/dL Normal ALB 4.0 Result Comment: Please note revised Albumin AND Globulin reference range effective 2017. LAB L501.1950 2.2-4.2 g/dL Normal GLOB 3.3 LAB L501.4100 15-37 U/L Normal AST 18 LAB L501.4305 45-117 U/L Normal ALK P 68 LAB L501.4405 12-78 U/L Normal ALT 33 LAB L501.4600 0.20-1.00 mg/dL Normal T BILI 0.70 LAB L501.4700 0.00-0.30 mg/dL Normal D BILI 0.18 Performed By: #### L500.3400 #### [facility] [address] [place], [place], [address] LIPID PROFILE Collected: 10/01/2017 Status: F Source: MILAN 8:02 AM [facility] REPOSITORY Order Comment: Order Date: 01/31/17 Order Info: [id number] - *Hepatic Function Panel Order Info: [id number] - *Lipid Profile CC PCP Comments: 12 hours fasting, may have water. TYPE CODE TESTS RESULT OUT OF RANGE REFERENCE UNITS LAB L501.4900 200 mg/dL Normal CHOL 176 Result Comment: <200 mg/dL Desirable 200-240 mg/dL Borderline >240 mg/dL High Risk LAB L501.5000 mg/dL Normal TRIG 193 Result Comment: The drugs N-Acetylcysteine and Metamizole may falsely depress this assay. Serum Triglycerides Reference Interval Normal <150 mg/dL Borderline high 150 - 199 mg/dL High 200 - 499 mg/dL Very High > or = 500 mg/dL LAB L501.6400 mg/dL Normal HDL 50 Result Comment: The drugs N-Acetylcysteine and Metamizole may falsely depress this assay. Reference Range HDL <40 mg/dL Low HDL Cholesterol HDL >or= 60 mg/dL High HDL Cholesterol LAB L501.6500 0-130 mg/dL Normal LDL 87 LAB L501.6600 5-40 mg/dL Normal VLDL 39 Performed By: #### L500.4100 #### [facility] [address] [place], [place], [address] ALLERGIES ALLERGIES DATE TYPE / CODE NAME / CODE REACTION SEVERITY SOURCE 09/24/2018 Drug Penicillins/ Itching Unknown [facility] Allergy/4160 [id number]( Hospital 96893(SNOMED XNORM) Repository CT) 09/24/2018 Drug simvastatin/ Other Unknown [facility] Allergy/4160 [id number]( Hospital 47636(SNOMED XNORM) Repository CT) 09/24/2018 Drug rosuvastatin Other Unknown [facility] Allergy/4160 /[id number]( Hospital 68939(SNOMED RXNORM) Repository CT) ENCOUNTERS ENCOUNTERS ADMIT/DISCHARGE ACCOUNT ADMITTING ENCOUNTER LOCATION SOURCE NUMBER CLASS 09/24/2018 [id number] Ambulatory [facility] ing:HPRAD Repository 09/24/2018/ [id number] Ambulatory BMSBuilding:B [place] [facility] 9 [place].[facility] Repository 08/28/2018 [id number] Ambulatory Erik [facility] 8 [facility] ing:LAB Repository 08/21/2018 [id number] Ambulatory [facility] 9 [facility] ing:BFHLAB Repository 07/23/2018/ [id number] Ambulatory BMSBuilding:B [place] [facility] 4 [place] Repository 07/22/2018 [id number] Ambulatory [facility] [place] ing:LAB Repository 07/09/2018 [id number] Ambulatory [facility] ing:CT Repository 03/19/2018/ [id number] Ambulatory [place] [facility] 8 4 [facility] ing:EN Repository 03/19/2018 [id number] Ambulatory BMSBuilding:B [place] [facility] MS.CF.[facility]ly [facility] Repository 02/04/2018/ [id number] Ambulatory BMSBuilding:B Erik 8 8 [place].[facility] Repository 10/01/2017/ [id number] Ambulatory BMSBuilding:B [place] [facility] 4 [place].[facility] Repository 10/01/2017 [id number] Ambulatory [place] [facility] 6 [facility] ing:LAB Repository PAYERS PAYERS ENCOUNTER GUARANTOR PAYER SUBSCRIBER SOURCE 09/24/2018 AMOL [facility]son Primary AMOL Sorenson [facility] [place] [id number] [facility] Y[facility]LLD[facility] Community [facility] [id number] Number: Repository [address]Jgi: 330 [id number] [phone] (HP) Date:8212-30-31FK [address] [address]IW: 09/24/2018 Secondary NOT GIVENUNK Erik Insurance:SELF PAY [facility] Number: Effective Repository Date:2018-09-24 09/24/2018 AMOL J Primary AMOL J [place] [id number] Insurance:[employer] YARNELLDOB: Community [facility] [id number] Number: Repository [address]Ziv: 330 [id number] [phone] (HP) Date:6169-79-52XY [address] [address]OH: 09/24/2018 Secondary NOT GIVENUNK [place] Insurance:SELF PAY [facility] Number: Effective Repository Date:2018-09-23 08/28/2018 AMOL J Primary AMOL J [facility] [place] [id number] Insurance:[employer] YARNELLDOB: Community [facility] JUST [place] 339917-08-08[place] Number: Repository [address]Ibh: 330 [id number] [phone] (HP) Date:2616-18-74YV [address] [address]PK: 08/28/2018 Secondary NOT GIVENUNK Erik Insurance:SELF PAY [facility] Number: Effective Repository Date:2018-08-28 08/21/2018 AMOL J Primary AMOL J [place] [id number] Insurance:[employer] YARNELLDOB: Community [facility] [place] 741497-08-08[place] Number: Repository [address]Mhr: 330 [id number] [phone] (HP) Date:4525-40-31DY [address] [address]JS: 08/21/2018 Secondary NOT GIVENUNK Erik Insurance:SELF PAY [facility] Number: Effective Repository Date:2018-08-21 07/23/2018 AMOL J Primary AMOL [place] Erik [id number] Insurance:[employer] YARNELLDOB: Community [facility] [place] 741497-08-08[place] Number: Repository [address]Dfs: 330 [id number] [phone] (HP) Date:7739-31-70KC [address] [address]PK: 07/23/2018 Secondary NOT GIVENUNK Erik Insurance:SELF PAY [facility] Number: Effective Repository Date:2018-07-23 07/22/2018 AMOL J Primary AMOL J [place] [id number] Insurance:[employer] YARNELLDOB: [facility] [address]IN[address] Number: Repository [address]Obm: 330 [id number] [phone] (HP) Date:1788-31-50AO [address] [address]EP: 07/22/2018 Secondary NOT GIVENUNK Erik Insurance:SELF PAY [facility] Number: Effective Repository Date:2018-07-21 07/09/2018 AMOL J Primary AMOL J Erik [id number] Insurance:[employer] YARNELLDOB: [facility] [place] 741497-08-08[place] Number: Repository [address]Mbb: 330 [id number] [phone] (HP) Date:9109-37-62MH [address] [address]ZQ: 07/09/2018 Secondary NOT GIVENUNK [place] Insurance:SELF PAY [facility] Number: Effective Repository Date:2018-06-08 03/19/2018 AMOL J Primary AMOL J [place] [id number] Insurance:[employer] YARNELLDOB: Community [facility] JUST [facility] [id number] Number: Repository [address]Usp: 330 [id number] [phone] (HP) Date:0532-16-29HN [address] [address]OY: 03/19/2018 Secondary NOT GIVENUNK Erik Insurance:SELF PAY [facility] Number: Effective Repository Date:2018-02-04 03/19/2018 AMOL J Primary AMOL J [place] [id number] Insurance:[employer] YARNELLDOB: Community [facility] JUST FOR [facility] [id number] [place] Number: Repository [address]Ztq: 330 [id number] [phone] (HP) Date:3575-55-97RV [address] [address]MG: 03/19/2018 Secondary NOT GIVENUNK [place] Insurance:SELF PAY [facility] Number: Effective Repository Date:2018-03-19 02/04/2018 AMOL J Primary AMOL J [place] [id number] Insurance:[employer] YARNELLDOB: Community [facility] JUST [place] 339917-08-08[place] Number: Repository [address]Zvp: 330 [id number] [phone] (HP) Date:7758-60-83JP [address] [address]JY: 02/04/2018 Secondary NOT GIVENUNK [place] Insurance:SELF PAY [facility] Number: Effective Repository Date:2018-01-23 10/01/2017 AMOL J Primary AMOL J [place] [id number] Insurance:[employer] YARNELLDOB: Community [facility] [place] 741497-08-08[place] Number: Repository [address]Ryb: 330 [id number] [phone] (HP) Date:7541-22-69LH [address] [address]GL: 10/01/2017 Secondary NOT GIVENUNK [place] Insurance:SELF PAY [facility] Number: Effective Repository Date:2017-08-09 10/01/2017 Amol Sorenson Primary Amol [place] [id number] Insurance:CARESOURCE ChristineB: [facility] [place]: Repository [address]Kfq: [phone] [id number] [phone] Date:8974-01-87IY [facility] [address] [place] [address]IQ: 10/01/2017 Secondary NOT GIVENUNK Erik Insurance:SELF PAY [facility] Number: Effective Repository Date:2017-10-01
== END ==
PROVIDERS: Family Provider Family Medicine; PCP Family Medicine; Visit Provider Family Medicine
DX: R10.9 Unspecified abdominal pain (principal)
CPT/HCPCS: 36415; 80053; 81001; 85025; 86140; 87086

== ENCOUNTER → 2018-08-28 10:11 | Outpatient (CLI) | payer OTHER, SELFPAY ==
[2018-07-23 09:58] VITALS: BMI 30.2
--- NOTE | 2018-08-28 10:38 | RAD_ITS ---
STUDY: X-RAY - ABDOMEN/PELVIS REASON FOR EXAM: Male, 63 years old. Generalized lower abdominal pain. History of recent diverticulitis. TECHNIQUE: AP supine and upright views of the abdomen and pelvis. COMPARISON: None. FINDINGS: Normal visualized lung bases. There is an unremarkable bowel gas pattern. There is no demonstrated free abdominal air. The visualized liver, spleen and kidneys are grossly normal in size and morphology. Normal soft tissue structures. Normal visualized osseous structures. RAD/Abdomen Single View IMPRESSION: Normal x-ray examination of the abdomen and pelvis. Electronically Signed: Bryan Tellez MD at 15:02 EST Tel [phone], Service support ,
[2018-08-28 11:09] LABS: Absolute Lymphocyte Count 1.51 X10^3/ul (0.83-4.51); Absolute Neutrophil Count 5.3 X10^3/uL (2.0-7.7); Basophil# 0.06 X10^3/uL; Basophil% 0.7 % (0-1); Eosinophil# 0.37 X10^3/uL; Eosinophils% 4.5 % (0-5); Hematocrit 48.7 % (40-54); Hemoglobin 16.7 g/dl (13.0-16.5); Lymphocyte # 1.51 X10^3/ul (4.0); Lymphocyte % 18.4 % (19-41); Mean Corp Hgb Conc 34.3 g/gl (32-36); Mean Corpuscular Hgb 31.1 pg (27.0-32.0); Mean Corpuscular Volume 90.7 fL (80-94); Monocyte# 0.95 X10^3/uL; Monocyte% 11.6 % (0-10); Neutrophil # 5.25 X10^3/uL (2.7-7.7); Neutrophil % 64.2 % (47-70); POSITIVE COUNT NO; POSITIVE DIFFERENTIAL NO; POSITIVE MORPHOLOGY NO; Platelet Count 288 K/mm3 (150-450); RBC Distribution Width CV 13.2 % (11.6-14.6); RBC Distribution Width SD 43.6 fl (35.1-43.9); Red Blood Count 5.37 M/mm3 (4.6-6.2); White Blood Count 8.2 K/mm3 (4.4-11.0)
[2018-08-28 11:55] LABS: CRP 3.59 mg/L (0.0-3.0)
== END ==
PROVIDERS: Family Provider Family Medicine; PCP Family Medicine; Referring Provider Family Medicine; Visit Provider Family Medicine
DX: K57.92 Diverticulitis of intestine, part unspecified, without perforation or abscess without bleeding (principal); R10.9 Unspecified abdominal pain
CPT/HCPCS: 36415; 74018; 85025; 86140

== ENCOUNTER → 2018-09-24 09:52 | Outpatient (CLI) | payer OTHER, SELFPAY ==
[2018-09-24 09:48] VITALS: BMI 29.5
--- NOTE | 2018-09-24 09:55 | RAD_ITS ---
STUDY: X-RAY - RIGHT HIP and pelvis REASON FOR EXAM: Male, 63 years old. Right hip and lower back pain TECHNIQUE: 2 views of the hip. One view of the pelvis. COMPARISON: None. FINDINGS: The bony pelvis is intact with no evidence of fracture or lytic or blastic osseous process. The SI joints are within normal limits. There are moderately severe arthritic changes of the right hip. Joint space narrowing is noted superiorly. There are mild arthritic changes with joint space narrowing of the left hip. There is no evidence of left or right hip fracture, dislocation, or lytic or blastic osseous process. RAD/HIP, UNI W/ Pelvis 2-3 Views IMPRESSION: Degenerative changes of the hips right side more severely affected than left. The bony pelvis is intact with no evidence of fracture or lytic or blastic osseous process. Electronically Signed: Gil Reveles MD at 23:39 EST , Service support ,
--- NOTE | 2018-09-24 09:55 | RAD_ITS ---
STUDY: X-RAY - LUMBOSACRAL SPINE REASON FOR EXAM: Male, 63 years old. Right hip, lower back pain TECHNIQUE: 6 view(s) of the lumbosacral spine were obtained. COMPARISON: Previous study of 11/12/2016 FINDINGS: Normal lumbar lordosis. There is a minimal lumbar dextroscoliosis with slight rotatory component. There is normal alignment of the vertebrae. There is mild endplate spondylosis at L4 and L5. There is narrowing of the L4-5 and L5-S1 disc spaces. Normal bilateral sacral ala, sacroiliac joints, and visualized sacrum. Normal visualized soft tissue structures. RAD/L/S Spine Comp/w Bending Views IMPRESSION: Endplate spondylosis of L4 and L5. Narrowing of the L4-5 and L5-S1 disc spaces. There is no evidence of fracture, spondylolysis, or spondylolisthesis. There is a minimal lumbar dextroscoliosis with slight rotatory component. There is no significant interval change. Electronically Signed: Gil Reveles MD at 23:53 EST , Service support ,
--- OUTSIDE RECORDS SUMMARY | 2018-11-28 23:59 | XMS RPT_ITS ---
:1955 Author Organization OHIP Support Name Relationship Address Phone BABGIULIANAS, LUIS ENRIQUE Unavailable [address] + [place] [address] S Unavailable Unavailable Unavailable LUCITA JS Unavailable [address] + [place] [address] BABBES, LUIS ENRIQUE Unavailable [address] + [place] [address] S Unavailable Unavailable Unavailable JACQUES LANDRUMA Unavailable [address] + [place] [address] BABBES, LUIS ENRIQUE Unavailable [address] + [place] [address] S Unavailable Unavailable Unavailable JACQUES LANDRUMA Unavailable [address] + [place] [address] BABBES, LUIS ENRIQUE Unavailable [address] + [place] [address] S Unavailable Unavailable Unavailable LUCITA JS Unavailable [address] + [place] [address] BABBES, LUIS ENRIQUE Unavailable [address] + [place] [address] S Unavailable Unavailable Unavailable JACQUES LANDRUMA Unavailable [address] + [place] [address] BABBES, LUIS ENRIQUE Unavailable [address] + [place] [address] S Unavailable Unavailable Unavailable JACQUES LANDRUMA Unavailable [address] + [place] [address] BABBES, LUIS ERNIQUE Unavailable [address] + [place] [address] S Unavailable Unavailable Unavailable BABBES, LUIS ENRIQUE Unavailable [address] + [place] [address] S Unavailable Unavailable Unavailable BABBES, LUIS ENRIQUE Unavailable [address] + [place] [address] S Unavailable Unavailable Unavailable BABBES, LUIS ENRIQUE Unavailable NA + [place], [place] S Unavailable Unavailable Unavailable BABBES, LUIS ENRIQUE Unavailable NA + [place], [place] Unavailable Unavailable Unavailable Care Team Providers Name Role Phone Nicolás Hernandez Attending Unavailable David, Nicolás Primary Care Unavailable DavidNicolás ortiz Attending Unavailable DavidNicolás ortiz Referring Unavailable David, Nicolás Primary Care Unavailable Robotham, Marisol Attending Unavailable Nicolás Hernandez Referring Unavailable DavidNicolás ortiz Primary Care Unavailable Robotham, Marisol Attending Unavailable Robotham, Marisol Referring Unavailable David, Nicolás Primary Care Unavailable Amarjit Beavers Attending Unavailable Nicolás Hernandez Referring Unavailable Amarjit Beavers Attending Unavailable Wayt, Amarjit Referring Unavailable David, Nicolás Primary Care Unavailable Robotham, Marisol Attending Unavailable Robotham, Marisol Referring Unavailable David, Nicolás Primary Care Unavailable Robotham, Marisol Consulting Unavailable Nicolás Hernandez Attending Unavailable David, Nicolás Referring Unavailable David, Nicolás Primary Care Unavailable Saul Arias Attending Unavailable Saul Arias Referring Unavailable David, Nicolás Primary Care Unavailable Jayshree Gaytan Attending Unavailable Jayshree Gaytan Attending Unavailable David, Nicolás Referring Unavailable David, Nicolás Primary Care Unavailable PROBLEMS PROBLEMS DATE TYPE CONDITION / CODE ATTENDING STATUS SOURCE 09/24/2018 Unknown M54.5 - Low back pain Amarjit Beavers Active [place] / M54.5(ICD-10) [facility] 09/24/2018 Unknown M25.551 - Pain in Amarjit Beavers Active [place] right hip / Community M25.551(ICD-10) Hospital Repository 08/28/2018 Unknown R10.9 - Unspecified DavidNicolás ortiz Active [place] abdominal pain / Community R10.9(ICD-10) Hospital Repository 08/28/2018 Unknown K57.92 - DavidNicolás ortiz Active [place] Diverticulitis of [facility] intestine, [facility] [place] unspecified, without Repository perforation or abscess without bleeding / K57.92(ICD-10) 07/23/2018 Unknown I25.10 - Greg, Active [place] Atherosclerotic heart Jayshree Zafar [facility] disease of [facility] coronary artery Repository without angina pectoris / I25.10(ICD-10) 07/23/2018 Unknown I10 - Essential Greg, Active [place] (primary) Jayshree Zafar [facility] hypertension / Hospital I10(ICD-10) Repository 07/23/2018 Unknown E78.00 - Pure Gaytan, Active [place] hypercholesterolemia, Jayshree Zafar [facility] unspecified / Hospital E78.00(ICD-10) Repository 02/04/2018 Unknown Z87.19 - Personal Cristi, Active [place] history of other [facility] diseases of the [facility] digestive system / Repository Z87.19(ICD-10) 02/04/2018 Unknown Z12.11 - Encounter Michael Colin for screening for [facility] malignant neoplasm of Hospital colon / Repository Z12.11(ICD-10) PROCEDURES PROCEDURES No Procedure Records FoundRESULTS RESULTS ORTHOPEDIC VISIT Observed: 09/24/2018 Status: F Source: [place] REPORT 12:38 PM [facility] REPOSITORY [facility] [address] [place] [address] OFFICE VISIT Date of Service: 09/24/18 MR#: [id number] Acct: [id number] Name: LUCITAMEIR Rep #: [id number] : 1955 Provider: DANIE Beavers Age/Sex: 63/M [place] [facility] [place] Status: Signed Intake Vital Signs09/24/18 Body Mass [...] seatbelt use: always HPI RIGHT HIP: Details: MEIR LANDRUM is a 63 year old M here today for right hip pain. He states that he has had right hip pain for about 2 years. He fell off his deck about 2 years ago. He had xrays at that time which showed no fracture. 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 This note was generated with [employer] dictation software. It may contain incorrect words, spelling, [...] W/ PELVIS Observed: 09/24/2018 Status: F Source: [place] 2-3 VIEWS 9:55 AM [facility] REPOSITORY [facility] Imaging Services [address] [place] [address] HIP, UNI W/ Pelvis 2-3 Views MR#: [id number] Acct: [id number] Name: MEIR LANDRUM Rep #: [id number] : 1955 63 From: Gil Reveles MD PCP: Nicolás Hernandez DO Status: REG CLI Study: HIP, UNI W/ Pelvis 2-3 Views Date of Exam: 09/24/18 Exam# [id number] Ordering Dr: Amarjit Beavers STUDY: X-RAY - [...] , CC: DANIE Beavers; Nicolás Hernandez DO Leveler: Signed L/S SPINE COMP/W Observed: 09/24/2018 Status: F Source: [place] BENDING VIEWS 9:55 AM [facility] REPOSITORY [facility] Imaging Services [address] [place] [address] L/S Spine Comp/w Bending Views MR#: [id number] Acct: [id number] Name: MEIR LANDRUM [place] Rep #: [id number] : 1955 63 From: Gil Reveles MD PCP: Nicolás Hernandez DO Status: REG CLI Study: L/S Spine Comp/w Bending Views Date of Exam: 09/24/18 Exam# [id number] Ordering Dr: Amarjit Beavers STUDY: X-RAY - [...] , CC: DANIE Beavers; Nicolás Hernandez DO Leveler: Signed ABDOMEN SINGLE VIEW Observed: 08/28/2018 Status: F Source: [place] 10:36 AM [facility] REPOSITORY [facility] Imaging Services [address] [place] [address] Abdomen Single View MR#: [id number] Acct: [id number] Name: MEIR LANDRUM Rep #: [id number] : 1955 63 From: Bryan Tellez MD PCP: Nicolás Hernandez DO Status: REG CLI Study: Abdomen Single View Date of Exam: 08/28/18 Exam# [id number] Ordering Dr: Nicolás Hernandez DO STUDY: X-RAY [...] Bryan Tellez MD at 15:02 EST Tel [phone], Service support , CC: Nicolás Hernandez DO Leveler: Signed CBC W/DIFF, AUTOMATED Collected: 08/28/2018 Status: F Source: [place] 10:21 AM [facility] REPOSITORY TYPE CODE TESTS RESULT OUT OF [...] Lymph 1.51 Performed By: #### L100.0100 #### [facility] [address] [place], [address] CRP Collected: 08/28/2018 Status: F Source: [place] 10:21 AM [facility] REPOSITORY TYPE CODE TESTS RESULT OUT OF RANGE REFERENCE UNITS LAB L501.6710 0.0-3.0 mg/L High 3.59 C-REACTIVE PROT Result Comment: C-Reactive Protein (CRP) provides useful information for the diagnosis, therapy and monitoring of inflammatory processes and associated diseases. For the evaluation of Relative Risk for Cardiovascular Disease, a High Sensitivity CRP (HSCRP) should be ordered. Performed By: #### L501.6710 #### [facility] [address] [place], [address] URINALYSIS, COMPLETE Collected: 08/21/2018 Status: F Source: [place] 9:41 AM [facility] REPOSITORY Order Comment: How was Urine Obtained? [...] URINE SEEN Performed By: #### L400.0001 #### [facility] [address] [place], [place], [address] CBC W/DIFF, AUTOMATED Collected: 08/21/2018 Status: F Source: [place] 9:41 AM [facility] REPOSITORY TYPE CODE TESTS RESULT OUT OF [...] Lymph 1.94 Performed By: #### L100.0100 #### [facility] [address] [place], [address] COMPREHENSIVE METABOLIC Collected: 08/21/2018 Status: F Source: [place] KONG 9:41 AM [facility] REPOSITORY TYPE CODE TESTS RESULT OUT OF [...] 8 Performed By: #### L500.4050, L501.6710 #### [facility] [address] [place], [address] CRP Collected: 08/21/2018 Status: F Source: [place] 9:41 AM [facility]OS[facility] REPOSITORY TYPE CODE TESTS RESULT OUT OF RANGE REFERENCE UNITS LAB L501.6710 0.0-3.0 mg/L High 33.90 C-REACTIVE PROT Result Comment: C-Reactive Protein (CRP) provides useful information for the diagnosis, therapy and monitoring of inflammatory processes and associated diseases. For the evaluation of Relative Risk for Cardiovascular Disease, a High Sensitivity CRP (HSCRP) should be ordered. Performed By: #### L500.4050, L501.6710 #### [facility] [address] [place], [address] Observed: 08/21/2018 Status: F Source: [place] CULTURE, URINE 9:41 AM [facility] REPOSITORY Urine Culture Culture exhibits no growth. Performed By: #### M100.0650 #### [facility] [address] [place], [address] CARDIOLOGY VISIT Observed: 07/23/2018 Status: F Source: [place] REPORT 10:45 AM [facility] REPOSITORY [facility] [address] [place] [address] OFFICE VISIT Date of Service: 07/23/18 MR#: [id number] Acct: [id number] Name: MEIR LANDRUM Rep #: [id number] : 1955 Provider: Jayshree Gaytan Age/Sex: 63/M Location[place] [facility] [place] Status: Signed HPI HPI Details: MEIR LANDRUM, is a 63 M who presents [...] Pressure 112/70 Intake Visit Reasons: 6 M Circular Head Saw Operator Required: No Accompanied by: None Is patient [...] AND Plan 1. Coronary artery disease involving alatna coronary artery of alatna heart without angina pectoris I25.10 anterior [place] (2008), stenting to LAD Plan Stable, from [...] vis,est,level 3 Diagnoses Coronary artery disease involving al[place]na coronary artery of alatna heart without angina pectoris I25.10 Coronary Disease-Associated Artery/Lesion type: alatna artery Elem vs. transplanted heart: alatna heart Associated angina: without angina Essential hypertension I10 Hypertension type: essential hypertension Pure hypercholesterolemia E78.00 Hyperlipidemia type: pure hypercholesterolemia Coding Level of Care Code Off vis,est,level 3 Diagnoses Coronary artery disease involving alatna coronary artery of alatna heart without angina pectoris I25.10 Coronary Disease-Associated Artery/Lesion type: alatna artery Elem vs. transplanted heart: alatna heart Associated angina: without angina Essential hypertension I10 Hypertension type: essential hypertension Pure hypercholesterolemia E78.00 Hyperlipidemia type: pure hypercholesterolemia 07/23/18 1045 <Electronically signed by Jayshree HELTON> Date Jayshree HELTON Cosigner Signature: Date (if applicable) CC: Nicolás Hernandez DO LIVER PROFILE Collected: 07/22/2018 Status: F Source: [place] 8:17 AM [facility] REPOSITORY Order Comment: PSA FOR DR HERNANDEZ [...] Performed By: #### L500.3400, L500.4100, L501.9910 #### [facility] [address] [place], [address] LIPID PROFILE Collected: 07/22/2018 Status: F Source: [place] 8:17 AM [facility] REPOSITORY Order Comment: PSA FOR DR HERNANDEZ [...] Performed By: #### L500.3400, L500.4100, L501.9910 #### [facility] [address] [place], [address] PSA,TOTAL - ANNUAL Collected: 07/22/2018 Status: F Source: [place] SCREEN 8:17 AM [facility] REPOSITORY Order Comment: PSA FOR DR HERNANDEZ LIVER AND LIPID FOR DR GAYTAN TYPE CODE TESTS RESULT OUT OF RANGE REFERENCE UNITS LAB L501.9910 0.00-4.00 ng/mL Normal PSA,TOT 0.87 SCREEN Result Comment: This test was performed using the TPSA assay method for the [employer] chemistry system. Values obtained with different assay methods cannot be used interchangably. When changing PSA assays in the course of monitoring a patient, additional sequential testing should be carried out to confirm baseline values. Performed By: #### L500.3400, L500.4100, L501.9910 #### [facility] [address] [place], [address] LUNG Observed: 07/09/2018 Status: F Source: [place] SCREENING 6:48 AM [facility] REPOSITORY [facility] Imaging Services [address] [place] [address] Lung Screening MR#: [id number] Acct: [id number] Name: MEIR LANDRUM Rep #: [id number] : 1955 M 63 From: Lazaro Corey DO PCP: Nicolás Hernandez DO Status: REG CLI Study: Low Dose CT Lung Screening Date of Exam: 07/09/18 Exam# [id number] Ordering Dr: Nicolás Hernandez DO STUDY: LOW [...] Lazaro Corey DO at 20:20 EDT Tel [phone], Service support , CC: Nicolás Hernandez DO Leveler: Signed OPERATIVE REPORT Observed: 03/19/2018 Status: F Source: [place] 10:42 AM [facility] REPOSITORY [facility] Medical Records Department [address] [place] [address] Operative Report 03/19/18 1039 MR#: [id number] Acct: [id number] Name: MEIR LANDRUM Rep #: [id number] : 1955 62 From: Marisol Colin MD PCP: Nicolás Hernandez DO Status: REG COC Y Location: [place] [address] Report of Operation Date of Procedure: 03/19/18 [...] MD> Date Marisol Colin MD CC: Nicolás David DO; Marisol Colin MD Signed COLON BIOPSY (CHOOSE Observed: 03/19/2018 Status: F Source: [place] SITE) 12:00 AM [facility] REPOSITORY Patient: MEIR LANDRUM : 1955 (62/M) Acct Num: [id number] Phys: Cristi SHAW,Marisol Unit Num: [id number] Loc: EN Specimen: [id number] Received: 03/19/181415 Spec Type: COLON BX TISSUES TISSUES: A. [...] is totally submitted in one cassette. / SJ:alissa 03/19/18 TC:1 CPT: 08902 x2 HEADER OPERATION: Colonoscopy (MAC) PRE-OP DIAGNOSIS: Screening TISSUE SUBMITTED: A Cecum polyp biopsy, B Descending colon polyp biopsy MICROSCOPIC DESCRIPTION Slides are reviewed. MICROSCOPIC DIAGNOSIS A. Cecum polyp, biopsy: Fragments of tubular adenoma. B. Descending colon polyp, biopsy: Fragments of tubular adenoma. SJ:alissa 03/20/18 Signed Paul Lee 03/20/18 <signature on file> Performed By: #### PCOLBX #### [facility] [address] [place], [address] SURGERY VISIT REPORT Observed: 02/04/2018 Status: F Source: [place] [address]:28 AM [facility] REPOSITORY [facility] [address] [place] [address] OFFICE VISIT Date of Service: 02/04/18 MR#: [id number] Acct: [id number] Name: MEIR LANDRUM Rep #: [id number] : 1955 Provider: Marisol Colin MD Age/Sex: 62/M Location: [facility] Status: Signed Intake Vital Signs02/04/18 Height 5 ft 11 in 02/04/18 Weight: 215 lb Intake Visit Reasons: TO DISCUSS GETTING C-SCOPE Circular Head Saw Operator Required: No Is patient in pain?: No [...] exercise seatbelt use: always HPI HPI HPI: MEIR LANDRUM, is a 62 M who presents [...] cancer Z12.11 3. Coronary artery disease involving alatna coronary artery of alatna heart without angina pectoris I25.10 anterior [place] (2008), stenting to LAD Plan Patient reports [...] 5 days before. Marisol Colin M.D. Pager: [phone] [facility] [address] [place] [address], [address] [place] [address] Office: [phone] Orders Orders: Medications Discontinued: varenicline (Chantix Starting Month Box) Discontinued RePO PER PKG DIR Rashmi Bruner ason: Pt no longer taking Plan Detail Follow Up 1 (Patient will schedule colonoscopy.) Coding Level of Care Code Off vis,est,level 3 Diagnoses Diverticulitis K57.92 Screening for colon cancer Z12.11 Coronary artery disease involving alatna coronary artery of alatna heart without angina pectoris I25.10 Coronary Disease-Associated Artery/Lesion type: alatna artery Elem vs. transplanted heart: alatna heart Associated angina: without angina 02/04/18 0928 <Electronically signed by Marisol Colin MD> Date Marisol Cloin MD Cosigner Signature: Date (if applicable) CC: Nicolás Hernandez DO; Saul Arias MD CARDIOLOGY VISIT Observed: 10/06/2017 Status: F Source: [place] REPORT 6:11 PM [facility] REPOSITORY [facility] [address] [place] [address]. [address] [place] [address] OFFICE VISIT Date of Service: 10/01/17 MR#: [id number] Acct: [id number] Name: MEIR LANDRUM Rep #: [id number] : 1955 Provider: Jayshree Gaytan Age/Sex: 62/M Location: [facility] [place] Status: Signed HPI 6 M FU: Details: MEIR LANDRUM, is a 62 M who presents [...] AND Plan 1. Coronary artery disease involving alatna coronary artery of alatna heart without angina pectoris I25.10 anterior DE (2008), stenting to LAD Plan - DANIE [...] vis,est,level 3 Diagnoses Coronary artery disease involving alatna coronary artery of al[place]na heart without angina pectoris I25.10 Coronary Disease-Associated Artery/Lesion type: al[place] artery Elem vs. transplanted heart: alatna heart Associated angina: without angina Essential hypertension I10 Hypertension type: essential hypertension Pure hypercholesterolemia E78.00; E78.0 Hyperlipidemia type: pure hypercholesterolemia 10/01/171800 <Electronically signed by Jayshree HELTON> Date Jayshree HELTON 10/06/171810<Electronically signed by Saul Arias MD> Cosigner Signature: Date (if applicable) Saul Arias MD CC: Nicolás Hernandez DO ALLERGIES ALLERGIES DATE TYPE / CODE NAME / CODE REACTION SEVERITY SOURCE 09/24/2018 Drug [facility]/ [facility] [id number]([place] [address](SNOMED XNORM) Repository CT) 09/24/2018 Drug simvastatin/ Other Unknown [place] [facility] Allergy/4160 [id number]([place] [address](SNOMED XNORM) Repository CT) 09/24/2018 Drug rosuvastatin Other Unknown [place] [facility] Allergy/4160 /[id number]( [place] [address](SNOMED RXNORM) Repository CT) ENCOUNTERS ENCOUNTERS ADMIT/DISCHARGE ACCOUNT ADMITTING ENCOUNTER LOCATION SOURCE NUMBER CLASS 09/24/2018 [id number] Ambulatory [place] 9 [facility] ing:HPRAD Repository 09/24/2018/ [id number] Ambulatory BMSBuilding:B [place] 9 9 [facility] Repository 08/28/2018 [id number] Ambulatory [place] 8 [facility] ing:LAB Repository 08/21/2018 [id number] Ambulatory [place] 9 [facility] ing:BFHLAB Repository 07/23/2018/ [id number] Ambulatory BMSBuilding:B [place] 8 4 [facility] Repository 07/22/2018 [id number] Ambulatory [place] 3 [facility] ing:LAB Repository 07/09/2018 [id number] Ambulatory [place] 9 [facility] ing:CT Repository 03/19/2018/ [id number] Ambulatory [place] 8 4 [facility] ing:EN Repository 03/19/2018 [id number] Ambulatory BMSBuilding:B [place] 0 [facility] Repository 02/04/2018/ [id number] Ambulatory BMSBuilding:B [place] 8 8 [facility] Repository 10/01/2017/ [id number] Ambulatory BMSBuilding:B [place] 8 4 [facility] Repository PAYERS PAYERS ENCOUNTER GUARANTOR PAYER SUBSCRIBER SOURCE 09/24/2018 MEIR Sorenson Primary MEIR [place] [id number] Insurance:CARESOURCE YARNELLDOB: [facility] [id number] [place] [address] Number: Repository [id number]: 330 [id number] [phone] () Date:5971-55-00[address] [address]LQ: 09/24/2018 Secondary NOT GIVENUNK [place] Insurance:SELF PAY [facility] Number: Effective Repository Date:2018-09-24 09/24/2018 MEIR Valencia [id number] [facility] YARNELLB: [facility] [id number] Number: Repository [id number]: 330 [id number] [phone] (HP) Date:0064-28-20YU [address] [place] [address]OI: 09/24/2018 Secondary NOT GIVENUNK [place] Insurance:SELF PAY [facility] Number: Effective Repository Date:2018-09-23 08/28/2018 MEIR J Primary MEIR Sorenson [place] [id number] Insurance:CARESOURCE YARNELLDOB: Community [address] [facility] [id number] Number: Repository [address]Xmv: 330 [id number] [phone] (HP) Date:0093-79-28WR [address] [address]BR: 08/28/2018 Secondary NOT GIVENUNK [place] Insurance:SELF PAY [facility] Number: Effective Repository Date:2018-08-28 08/21/2018 MEIR J Primary MEIR Sorenson [place] [id number] Insurance:CARESOURCE YARNELLDOB: Community [facility] [address] [id number] Number: Repository [id number]: 330 [id number] [phone] (HP) Date:4485-18-04ZH [address] [address]SM: 08/21/2018 Secondary NOT GIVENUNK [place] Insurance:SELF PAY [facility] Number: Effective Repository Date:2018-08-21 07/23/2018 MEIR J Primary MEIR [place] [id number] Insurance:CARESOURCE YARNELLDOB: Community [facility] [address] [id number], [place] Number: Repository [address]Ukt: 330 [id number] [phone] (HP) Date:6490-66-78XM [address] [address]RL: 07/23/2018 Secondary NOT GIVENUNK [place] Insurance:SELF PAY [facility] Number: Effective Repository Date:2018-07-23 07/22/2018 MEIR J Primary MEIR Sorenson [place] [id number] Insurance:CARESOURCE YARNELLDOB: Community [facility] [address] JUST FOR [facility] [id number], [place] Number: Repository [address]Jfm: 330 [id number] [phone] (HP) Date:0674-78-62IQ [address] [address]PX: 07/22/2018 Secondary NOT GIVENUNK [place] Insurance:SELF PAY [facility] Number: Effective Repository Date:2018-07-21 07/09/2018 MEIR J Primary MEIR J [place] [id number] Insurance:CARESOURCE YARNELLDOB: Community [facility] [address] JUST [facility] [id number], [place] Number: Repository [address]Tcx: 330 [id number] [phone] (HP) Date:9191-34-08KV [address] [address]XB: 07/09/2018 Secondary NOT GIVENUNK [place] Insurance:SELF PAY [facility] Number: Effective Repository Date:2018-06-08 03/19/2018 MEIR J Primary MEIR Sorenson [place] [id number] Insurance:CARESOURCE YARNELLDOB: [facility] [address] JUST [facility] [id number], [place] Number: Repository [address]Tgf: 330 [id number] [phone] (HP) Date:5754-74-80FX [address] [address]JE: 03/19/2018 Secondary NOT GIVENUNK [place] Insurance:SELF PAY [facility] Number: Effective Repository Date:2018-02-04 03/19/2018 MEIR J Primary MEIR Sorenson Erik [id number] Insurance:CARESOURCE YARNELLDOB: [facility] [id number] Number: Repository [id number]: [id number] [phone] (HP) Date:[id number] [address] [address]NN: 03/19/2018 Secondary NOT GIVENUNK Erik Insurance:SELF PAY [facility] Number: Effective Repository Date:2018-03-19 02/04/2018 MEIR J Primary MEIR [place] [id number] Insurance:CARESOURCE YARNELLDOB: [facility] KIET [facility] [id number] Number: Repository [id number]: [id number] [phone] (HP) Date:[id number] [address] [address]CL: 02/04/2018 Secondary NOT GIVENUNK Erik Insurance:SELF PAY [facility] Number: Effective Repository Date:2018-01-23 10/01/2017 MEIR J Primary MEIR J Erik [id number] Insurance:CARESOURCE YARNELLDOB: [facility] [id number] Number: Repository [id number]: [phone] [id number] [phone] (HP) Date:[id number] [address] [address]ZQ: 10/01/2017 Secondary NOT GIVENUNK Erik Insurance:SELF PAY [facility] Number: Effective Repository Date:2017-08-09
== END ==
PROVIDERS: Family Provider Family Medicine; PCP Family Medicine; Referring Provider Physician Assistant; Visit Provider Physician Assistant
DX: M54.5 Low back pain (principal); M25.551 Pain in right hip
CPT/HCPCS: 72114; 73502

== ENCOUNTER 2018-11-30 17:00 | Outpatient (RCR) | payer OTHER, SELFPAY ==
[2018-10-13 16:24] VITALS: BMI 29.5
--- NOTE | 2018-10-22 09:42 | HP.PTEVAL ---
Patient's Visit Information MEIR LANDRUM is a 63 year old M referred to Physical Therapy by Terra Gonzalez MD with a diagnosis of BACK AND HIP PAIN. Date of Evaluation: 10/21/18 Physical Therapist: Dung Valladares, PT, Cert MDT, OCS - Visit Plan Frequency: 2x /Week Duration: 4 Weeks Plan: Intially ,Aquatic PT for ROM /strength right hip ,lumbar ROM/strength ,2xwk for 2weeks then recheck - Subjective Findings: This 63 y/o male presents to physical therapy with with back and hip pain.Patient has lumbar pain many years and right hip 2 years ago after falling on icy step. 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 Lumbar pain symmrical lower L-S region region no radiular symptoms. Location of hip groin to thigh.Symptoms worse with working,bending ,lifting ,staning and walking.In the morning is better. Patient affects sleeping. Denies parathesia/tingling.Coughing sneezing -.Bowel/bladder -. Patient fell 2 years ago. Symptoms better rest. Seen DR patel fluroscopy injection to right hip. Patient seen orthopedic Dr did x-rays hip and DJD right,and DDD lumbar spine. Patient back hip and back affects QOL /job demands and ADL'S. SOCAIL: . 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 GAIT: antalgic gait right side decrease stance time. NEURO: denies parathesia/tingling L3-4,L4-5,L5-S1. HIP ROM: flexion 90 degrees,IR 0 degrees,hip abd 40 degrees. MMT: quads/hams 4-/5 right,hip flexion/abduction 3+/5,ankle 4/5. LUMBAR ROM: flexion WFL ,extension min/mod loss ,side glides mod loss pain on right side. PIRIFORMIS: mod loss - Special Tests L/S Slump test left side: Negative L/S Slump test right side: Negative L/S Left Straight Leg Raise: Negative L/S Right Straight Leg Raise: Negative Lumbar Standing: Flexion - Mechanical Response: No effect Lumbar Standing: Flexion - Symptoms During Testing: No effect Lumbar Standing: Flexion - Symptoms After Testing: No effect Lumbar Standing: Extension - Mechanical Response: No effect Lumbar Standing: Extension - Symptoms During Testing: Increases Lumbar Standing: Extension - Symptoms After Testing: No worse Comments:: right hip Lumbar Standing: Right Side Glides - Mechanical Response: No effect Lumbar Standing: Right Side Marcellus - Symptoms During Testing: Increases Lumbar Standing: Right Side Marcellus - Symptoms After Testing: No effect Lumbar Standing: Left Side Marcellus - Mechanical Response: No effect Lumbar Standing: Left Side Marcellus - Symptoms During Testing: Increases Lumbar Standing: Left Side Marcellus - Symptoms After Testing: No worse Lumbar Lying: Flexion - Mechanical Response: No effect Lumbar Lying: Flexion - Symptoms During Testing: Increases Lumbar Lying: Flexion - Symptoms After Testing: Worse Lumbar Lying: Extension - Mechanical Response: No effect Lumbar Lying: Extension - Symptoms During Testing: Increases Lumbar Lying: Extension - Symptoms After Testing: Worse Comments:: lateral hip R Hip Scour: Positive R Hip SAUL - Intraarticular Pathology: Positive R Hip Trendelenberg - Glut Medius: Positive - Goals Goal 1:: Independant with HEP and Aquatic program. Goal Time Frame: 4-6 Weeks Goal 2:: Decrease hip and back pain by 40-50% or greater to improve function with ADL'S Goal Time Frame: 4-6 Weeks Goal 3:: Patient increase right hip ROM by 5-10 degrees to improve function with stairs. Goal Time Frame: 4-6 Weeks Goal 4:: Patient increase hip strength by 4-/5 to imptrove function. 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 Patient has decrease hip ROM ,strength,antalgic gait impairs walking and standing affects job demands. Patient has lumbar pain and has symptoms radiating to lateral hip as well with weakness of abd /back Rehabilitation Potential: Fair - Anticipated Interventions Patient/Client Instruction: Educate patient on: Condition, Plan of Care For the Purpose of:: To decrease pain, To increase ROM, To improve muscle performance and motor function, To improve ability to perform ADL's, To increase tolerance to activity/condition/position, To improve performance and independence with ADL's, To improve ability of physical actions for home/community/work/leisure, To improve health of tissue, To decrease soft tissue restriction, To increase flexibility/ROM, To improve ability to perform tasks related to life management Therapeutic Exercise to Include: Strength training, Postural training, Flexibilty training, In an aquatic setting, Active ROM, Dynamic Lumbar Stabilization Comment: hip/knee For the Purpose of:: To decrease pain, To increase ROM, To improve muscle performance and motor function, To increase tolerance to activity/condition/position, To improve ability of physical actions for home/community/work/leisure, To improve gait and locomotor functions, To improve health of tissue, To decrease soft tissue restriction, To increase flexibility/ROM, To improve ability to perform tasks related to life management Thank you for the opportunity to evaluate your patient. For Medicare and Medicare HMO plans, please review the plan of care and approve it. It will need to be FAXED BACK to us at [phone] for Medicare purposes. For Medicare only, by signing this I certify the plan of care. Please let me know if there are questions or concerns regarding this plan of care. Physician Signature: Date:
--- NOTE | 2018-11-30 18:04 | HP.PTDCSUM_ITS ---
HP - PT D/C Summary It has been my pleasure to treat MEIR LANDRUM under orders from Terra Gonzalez MD, for the diagnosis of BACK AND HIP PAIN for a total of 8 visit(s). Discharge Date: 11/30/18 Please see the following information for a summary of their discharge status. - Subjective Subjective: Feeling pretty good today. - Pain Bilateral Back Pain Intensity (Out of 10): 2 Right Hip Pain Intensity (Out of 10): 2 - Overall Improvement % Improvement: 70 - Objective Objective/Function: Cues for glute engagment with progression to SLS wall push- ups as well as newly added noodle stomp - difficulty with neutral pelvis. Demo'ing same difficulty with NWBing (with progression to 1 UE on HR) DLP exc. Cues for glute engagment against upward buoyant pull. GAIT: normal zhanna. PROM: flexion 100 degrees ,abduction 40 degrees,IR 10,ER 50 degrees. MMT: quads/hams/hip flexion 4/5,hip abd 4-/5 - Goals Goal 1:: Independant with HEP and Aquatic program. Goal Progress: Goal Met Goal 2:: Decrease hip and back pain by 40-50% or greater to improve function with ADL'S Goal Progress: Goal Met Goal 3:: Patient increase right hip ROM by 5-10 degrees to improve function with stairs. Goal Progress: Goal Met Goal 4:: Patient increase hip strength by 4-/5 to imptrove function. Goal Progress: Goal Met Goal 5:: Patient to improve LFES score by 5-10 points to improve QOL Goal Progress: Goal Met - Plan Plan: D/C TO HEP IN AQUATIC - D/C Information Discharge Comments: Aquatics on own If there are questions or concerns regarding this patient's physical therapy, please feel free to call me at [phone]. Thank you for the referral of this patient. Sincerely, Dung Valladares, PT, Cert MDT, OCS
== END 2018-11-30 19:00 | disposition home or self-care (01) ==
LOC: PT 17:00
PROVIDERS: Family Provider Family Medicine; PCP Family Medicine; Referring Provider Anesthesiology Pain Medicine; Visit Provider Anesthesiology Pain Medicine
DX: M54.9 Dorsalgia, unspecified (principal); M79.606 Pain in leg, unspecified
CPT/HCPCS: 97110; 97113; 97162; 97530

== ENCOUNTER → 2019-02-04 | Outpatient (CLI) | payer OTHER, SELFPAY ==
[2018-10-13 16:24] VITALS: BMI 29.5
[2019-02-04 09:14] LABS: AST(SGOT) 28 U/L (15-37); Alanine Aminotransfer ALT/SGPT 36 U/L (16-61); Albumin, Serum 3.8 g/dL (3.2-5.0); Alkaline Phosphatase 70 U/L (45-117); Bilirubin, Direct 0.14 mg/dL (0.00-0.30); Cholesterol 161 mg/dL (200); High Density Lipoprotein 46 mg/dL; Protein, Total 6.8 g/dL (6.4-8.2); Triglycerides 201 mg/dL; Very Low Density Lipoprotein 40 mg/dL (5-40)
== END | disposition home or self-care (01) ==
LOC: LAB.FUTURE 08:10
PROVIDERS: Physician Assistant Medical; Family Provider Family Medicine; PCP Family Medicine; Referring Provider Family Medicine; Visit Provider Family Medicine
DX: I25.10 Atherosclerotic heart disease of native coronary artery without angina pectoris (principal); I10 Essential (primary) hypertension; E78.00 Pure hypercholesterolemia, unspecified; R97.20 Elevated prostate specific antigen [PSA]
CPT/HCPCS: 36415; 80061; 80076; 84153

== ENCOUNTER → 2019-04-06 | Outpatient (CLI) | payer OTHER, SELFPAY ==
[2019-03-05 15:58] VITALS: BMI 29.7
--- NOTE | 2019-04-06 15:43 | STRESSREP ---
Stress Test Report Date: 04-06-19 Procedure: Pharmacologic stress nuclear imaging study Indications: Chest pain; CAD; PCI Consent: Per the patient Procedure: The patient underwent pharmacologic (Regadenoson) evaluation with a peak heart rate of 88 beats per minute (55 %predicted maximal heart rate) and a peak blood pressure of 142/80 mmHg. The baseline ECG demonstrated normal sinus rhythm. The peak pharmacologic ECG demonstrated no obvious ECG changes. There were no cardiac dysrhythmias pretest, during pharmacologic infusion, or recovery. There was no complaint of chest discomfort during pharmacologic infusion or recovery. The examination was discontinued secondary to completion of protocol. Impression: 1. Pharmacologic (Regadenoson) evaluation 2. Peak pharmacologic ECG with no obvious ECG changes. 3. There were no cardiac dysrhythmias pretest, during pharmacologic infusion, or recovery. 4. Nuclear images pending Myocardial perfusion imaging study: Technique: The patient was injected with 14.3 millicuries of technetium 99m Cardiolite and subsequently rest SPECT Cardiolite nuclear imaging was obtained in the horizontal long, vertical long, and short axis views. The patient underwent pharmacologic (Regadenoson) evaluation with a peak heart rate of 88 beats per minute (55 % percent predicted maximal heart rate) and a peak blood pressure of 142/80 mmHg. The patient was injected with 44.5 millicuries of technetium 99m Cardiolite and subsequently stress SPECT Cardiolite nuclear imaging was obtained in the horizontal long, vertical long, and short axis views. A gated Cardiolite study at peak stress was obtained. Interpretation: Rest and stress SPECT Cardiolite nuclear imaging status post realignment, normalization, and attenuation correction demonstrate areas of extracardiac/gastrointestinal tracer uptake near the inferior segments which appears to be more prominent at rest as opposed to stress. There is notation of diminished tracer uptake in portions of the mid to distal inferior segments at rest which appear to improve and/or normalize following stress.. There is end systolic thickening and brightening. The gated Cardiolite study demonstrates myocardial thickening and inward wall motion. The reported LVEF is 49 %. Impression: 1. Rest and stress SPECT cardio light nuclear imaging demonstrate myocardial perfusion changes appearing compatible with the effects of soft tissue attenuation/gastrointestinal uptake/detraction with myocardial perfusion changes at rest in the mid to distal inferior segments which appear to improve and/or normalize following stress with no myocardial perfusion changes considered diagnostic for associated stress-induced myocardial ischemia. 2. The gated Cardiolite study reports an LVEF of 49 %. This note was generated with [employer] software. It may contain incorrect words, spelling, and punctuation that were not noted in checking the note before signing.
== END | disposition home or self-care (01) ==
LOC: CVS 05:58
PROVIDERS: Family Provider Family Medicine; PCP Family Medicine; Referring Provider Nurse Practitioner Family; Visit Provider Nurse Practitioner Family
DX: I25.10 Atherosclerotic heart disease of native coronary artery without angina pectoris (principal); R07.89 Other chest pain; E78.5 Hyperlipidemia, unspecified; I10 Essential (primary) hypertension
CPT/HCPCS: 78452; 93017; A9500; A4216; J2785

== ENCOUNTER → 2019-04-08 | Outpatient (CLI) | payer OTHER, SELFPAY ==
[2019-03-05 15:58] VITALS: BMI 29.7
--- NOTE | 2019-04-08 12:45 | RAD_ITS ---
STUDY: X-RAY - LEFT SHOULDER REASON FOR EXAM: Pain. TECHNIQUE: 4 view(s) of the shoulder. COMPARISON: None. FINDINGS: There are marginal osteophytes of the medial humeral head and joint space narrowing of the glenohumeral articulation. Normal acromioclavicular joint. Normal acromion. Normal humeral head and visualized proximal humerus. There is calcific tendinitis. Normal visualized pulmonary apex. RAD/Shoulder min 2 Views IMPRESSION: Glenohumeral arthrosis. Calcific tendinitis. Electronically Signed: Daren Curtis MD at 13:02 EDT Tel , Service support ,
== END | disposition home or self-care (01) ==
LOC: HPRAD 12:45
PROVIDERS: Family Provider Family Medicine; PCP Family Medicine; Referring Provider Physician Assistant; Visit Provider Physician Assistant
DX: M25.512 Pain in left shoulder (principal)
CPT/HCPCS: 73030

== ENCOUNTER → 2019-11-04 08:20 | Outpatient (CLI) | payer OTHER, SELFPAY ==
[2019-07-28 08:01] VITALS: BMI 29.7
[2019-11-04 09:40] LABS: AST(SGOT) 26 U/L (15-37); Alanine Aminotransfer ALT/SGPT 41 U/L (16-61); Albumin, Serum 3.8 g/dL (3.2-5.0); Alkaline Phosphatase 63 U/L (45-117); Bilirubin, Direct 0.18 mg/dL (0.00-0.30); Cholesterol 169 mg/dL (200); Globulin 3.1 g/dL (2.2-4.2); High Density Lipoprotein 56 mg/dL; Protein, Total 6.9 g/dL (6.4-8.2); Triglycerides 180 mg/dL; Very Low Density Lipoprotein 36 mg/dL (5-40)
== END ==
PROVIDERS: PCP Family Medicine; Referring Provider Physician Assistant Medical; Visit Provider Physician Assistant Medical
DX: E78.5 Hyperlipidemia, unspecified (principal)
CPT/HCPCS: 36415; 80061; 80076

== ENCOUNTER → 2020-02-14 | Outpatient (CLI) | payer OTHER, SELFPAY ==
[2020-02-14 08:47] VITALS: BMI 30.9
--- NOTE | 2020-02-14 08:52 | RAD_ITS ---
STUDY: X-RAY - LEFT KNEE REASON FOR EXAM: Male, 64 years old. KNEE PAIN TECHNIQUE: 4 view(s) of the knee. COMPARISON: None. FINDINGS: Normal visualized distal femur. Normal visualized proximal tibia and fibula. Normal proximal tibiofibular articulation. There is moderate degenerative arthrosis of the medial femorotibial compartment with moderate joint space narrowing. Normal lateral femorotibial compartment. There is mild degenerative arthrosis of the patellofemoral articulation. The soft tissue structures are unremarkable. RAD/Knee 4 or More Views IMPRESSION: Degenerative arthrosis. Electronically Signed: Bryan Tellez, at 15:46 EDT , Service support ,
== END | disposition home or self-care (01) ==
LOC: HPRAD 08:52
PROVIDERS: PCP Family Medicine; Referring Provider Orthopaedic Surgery; Visit Provider Orthopaedic Surgery
DX: M25.562 Pain in left knee (principal)
CPT/HCPCS: 73564

== ENCOUNTER → 2020-05-04 08:19 | Outpatient (CLI) | payer OTHER, SELFPAY ==
[2020-02-14 08:47] VITALS: BMI 30.9
[2020-05-04 09:40] LABS: AST(SGOT) 26 U/L (15-37); Alanine Aminotransfer ALT/SGPT 32 U/L (16-61); Albumin, Serum 4.2 g/dL (3.2-5.0); Alkaline Phosphatase 77 U/L (45-117); Bilirubin, Direct 0.25 mg/dL (0.00-0.30); Cholesterol 188 mg/dL (200); Globulin 3.4 g/dL (2.2-4.2); High Density Lipoprotein 52 mg/dL; PSA,Total- Diagnostic 1.06 ng/mL (0.0-4.0); Protein, Total 7.6 g/dL (6.4-8.2); Triglycerides 160 mg/dL; Very Low Density Lipoprotein 32 mg/dL (5-40)
== END ==
PROVIDERS: PCP Family Medicine; Referring Provider Internal Medicine Cardiovascular Disease; Visit Provider Internal Medicine Cardiovascular Disease
DX: E78.00 Pure hypercholesterolemia, unspecified (principal); E78.5 Hyperlipidemia, unspecified; R97.20 Elevated prostate specific antigen [PSA]
CPT/HCPCS: 36415; 80061; 80076; 84153

== ENCOUNTER → 2020-08-15 16:14 | Outpatient (CLI) | payer OTHER, SELFPAY ==
[2020-08-15 18:08] LABS: Absolute Lymphocyte Count 1.99 X10^3/uL (0.83-4.51); Absolute Neutrophil Count 10.9 X10^3/uL (2.0-7.7); Basophil# 0.11 X10^3/uL; Basophil% 0.7 % (0-1); Hematocrit 47.1 % (40-54); Hemoglobin 16.1 g/dL (13.0-16.5); Lymphocyte # 1.99 X10^3/ul (4.0); Lymphocyte % 13.6 % (19-41); Mean Corp Hgb Conc 34.2 g/dL (32-36); Mean Corpuscular Hgb 31.8 pg (27.0-32.0); Mean Corpuscular Volume 92.9 fL (80-94); Mean Platelet Vol. 8.9 fl (6.2-12.0); Monocyte# 1.22 X10^3/uL; Monocyte% 8.3 % (0-10); NRBC Flagged by Analyzer 0 % (0-5); Neutrophil # 10.85 X10^3/uL (2.7-7.7); Platelet Count 292 K/mm3 (150-450); RBC Distribution Width CV 12.8 % (11.6-14.6); RBC Distribution Width SD 43.4 fl (35.1-43.9); Red Blood Count 5.07 M/mm3 (4.6-6.2); White Blood Count 14.7 K/mm3 (4.4-11.0)
[2020-08-15 18:31] LABS: Anion Gap 6 (5-15); BUN 20 mg/dL (7-18); BUN/Creat Ratio 18.9 RATIO (10-20); Calcium,Total 9.3 mg/dL (8.5-10.1); Chloride 106 mmol/L (98-107); Creatinine, Serum 1.06 mg/dL (0.70-1.30); EST Glomerular Filtration Rate 75 mL/min (>60); Est Glom Filt Rate - Afr Amer 91 mL/min (>60); Glucose 83 mg/dL (74-106); Potassium 3.9 mmol/L (3.5-5.1); Sodium Level 138 mmol/L (136-145)
[2020-08-16 07:14] LABS: SARS-COV-2 TOTAL ABS Nonreactive (Nonreactive)
== END ==
PROVIDERS: PCP Family Medicine; Visit Provider Family Medicine
DX: I25.10 Atherosclerotic heart disease of native coronary artery without angina pectoris (principal); Z51.81 Encounter for therapeutic drug level monitoring; R07.9 Chest pain, unspecified; Z20.828 Contact with and (suspected) exposure to other viral communicable diseases
CPT/HCPCS: 36415; 80048; 84484; 85025; 86769

== ENCOUNTER → 2020-08-18 15:45 | Outpatient (CLI) | payer OTHER, SELFPAY | PROVIDERS: PCP Family Medicine; Visit Provider Family Medicine | DX: R10.13 Epigastric pain (principal); D72.829 Elevated white blood cell count, unspecified ==

== ENCOUNTER → 2020-08-23 13:51 | Outpatient (CLI) | payer OTHER, SELFPAY ==
[2020-08-23 15:25] LABS: Absolute Lymphocyte Count 1.72 X10^3/uL (0.83-4.51); Basophil# 0.08 X10^3/uL; Basophil% 0.7 % (0-1); Eosinophil# 0.35 X10^3/uL; Eosinophils% 2.9 % (0-5); Hematocrit 46.3 % (40-54); Hemoglobin 15.5 g/dL (13.0-16.5); Lymphocyte # 1.72 X10^3/ul (4.0); Lymphocyte % 14.1 % (19-41); Mean Corp Hgb Conc 33.5 g/dL (32-36); Mean Corpuscular Hgb 31.5 pg (27.0-32.0); Mean Corpuscular Volume 94.1 fL (80-94); Mean Platelet Vol. 9.2 fl (6.2-12.0); Monocyte# 0.97 X10^3/uL; Monocyte% 7.9 % (0-10); NRBC Flagged by Analyzer 0 % (0-5); Neutrophil % 73.5 % (47-70); Platelet Count 295 K/mm3 (150-450); RBC Distribution Width SD 44.9 fl (35.1-43.9); Red Blood Count 4.92 M/mm3 (4.6-6.2); White Blood Count 12.2 K/mm3 (4.4-11.0)
== END ==
PROVIDERS: PCP Family Medicine; Visit Provider Family Medicine
DX: R10.13 Epigastric pain (principal); D72.829 Elevated white blood cell count, unspecified
CPT/HCPCS: 36415; 85025

== ENCOUNTER → 2021-02-10 08:14 | Outpatient (CLI) | payer OTHER, SELFPAY ==
[2021-02-09 14:59] VITALS: BMI 28.6
[2021-02-10 09:44] LABS: AST(SGOT) 21 U/L (15-37); Alanine Aminotransfer ALT/SGPT 34 U/L (16-61); Albumin, Serum 3.8 g/dL (3.2-5.0); Alkaline Phosphatase 65 U/L (45-117); Bilirubin, Direct 0.13 mg/dL (0.00-0.30); Cholesterol 187 mg/dL (200); Globulin 2.9 g/dL (2.2-4.2); High Density Lipoprotein 59 mg/dL; Protein, Total 6.7 g/dL (6.4-8.2); Triglycerides 104 mg/dL; Very Low Density Lipoprotein 21 mg/dL (5-40)
== END ==
PROVIDERS: PCP Family Medicine; Referring Provider Internal Medicine Cardiovascular Disease; Visit Provider Internal Medicine Cardiovascular Disease
DX: E78.00 Pure hypercholesterolemia, unspecified (principal)
CPT/HCPCS: 36415; 80061; 80076

== ENCOUNTER → 2021-07-07 10:15 | Outpatient (CLI) | payer OTHER, SELFPAY ==
--- NOTE | 2021-07-07 10:45 | RAD_ITS ---
STUDY: X-RAY - PELVIS AND RIGHT HIP REASON FOR EXAM: Male, 66 years old. PAIN -- HIP REPLACEMENT FRIDAY TECHNIQUE: 3 views of the pelvis and hip. COMPARISON: 09/24/2018 FINDINGS: There is a non-specific bowel gas pattern. Normal visualized soft tissue structures. Normal bilateral iliac wings, sacroiliac joints and visualized sacrum. Normal bilateral superior and inferior pubic rami. Normal pubic symphysis. Normal bilateral ischial tuberosities. Interval right hip arthroplasty. The prosthesis appears located. No ostial lysis to suggest loosening.. RAD/HIP, UNI W/ Pelvis 2-3 Views IMPRESSION: Interval right hip arthroplasty. Electronically Signed: Lane Gallo MD at 12:41 EDT Tel , Service support ,
--- NOTE | 2021-07-07 10:45 | RAD_ITS ---
STUDY: X-RAY - LUMBAR SPINE REASON FOR EXAM: Male, 66 years old. PAIN TECHNIQUE: 5 view(s) of the lumbar spine were obtained. COMPARISON: 09/24/2018 FINDINGS: Normal lumbar lordosis. Mild dextroscoliosis centered at L2. There is a normal alignment of the vertebrae. There is multilevel endplate spondylosis of the lumbar vertebrae. There is multi-level degenerative disc disease with multi-level disc space narrowing. The soft tissue structures are unremarkable. RAD/L/S Spine Min 4 Views IMPRESSION: Mild dextroscoliosis with diffuse degenerative disc disease. MRI would be useful. Electronically Signed: Lane Gallo MD at 12:39 EDT Tel , Service support ,
== END ==
PROVIDERS: PCP Family Medicine; Referring Provider Family Medicine; Visit Provider Family Medicine
DX: M54.50 Low back pain, unspecified (principal); M25.551 Pain in right hip
CPT/HCPCS: 72110; 73502

== ENCOUNTER → 2021-08-13 08:03 | Outpatient (CLI) | payer OTHER, SELFPAY ==
[2021-08-13 09:42] LABS: AST(SGOT) 20 U/L (15-37); Alanine Aminotransfer ALT/SGPT 30 U/L (16-61); Albumin, Serum 3.6 g/dL (3.2-5.0); Alkaline Phosphatase 85 U/L (45-117); Bilirubin, Direct 0.14 mg/dL (0.00-0.30); Cholesterol 193 mg/dL (200); Globulin 3.4 g/dL (2.2-4.2); High Density Lipoprotein 51 mg/dL; Triglycerides 153 mg/dL; Very Low Density Lipoprotein 31 mg/dL (5-40)
== END ==
PROVIDERS: PCP Family Medicine; Referring Provider Internal Medicine Cardiovascular Disease; Visit Provider Internal Medicine Cardiovascular Disease
DX: E78.00 Pure hypercholesterolemia, unspecified (principal); E78.5 Hyperlipidemia, unspecified
CPT/HCPCS: 36415; 80061; 80076

== ENCOUNTER 2021-08-27 07:06 | Day surgery (SDC) | payer OTHER, SELFPAY ==
[2021-08-27] VITALS (7 sets, daily range): BP systolic 118–146; BP diastolic 77–98; PULSE 64–81; RESP 16; TEMP 36.1–36.5; O2SAT 96–100; BMI 28.5
--- NOTE | 2021-08-27 07:25 | PCM.HP.BLA ---
History and Physical Date of Admission: 08/27/21 Date of Service: 08/21/21 MR#:[id number]:[id number]: MEIR LANDRUMDALI #:[id number]:[id number] Provider:Dr. 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 Required: No Is patient in pain?: No Allergies Penicillins [PCN] Allergy (Verified 08/21/21 09:31) Itching ciprofloxacin [From Cipro] Adverse Reaction (Intermediate, Verified 08/21/21 09:31) Unknown rosuvastatin [From Crestor] Adverse Reaction (Verified 08/21/21 09:31) Other simvastatin [From Zocor] Adverse Reaction (Verified 08/21/21 09:31) Other Medications nitroglycerin 0.4 mg SUBLINGUAL Q5M PRN 03/27/17 [History Confirmed 08/21/21] naproxen sodium 220 mg tablet 220 mg PO BID tab 11/04/19 [History Confirmed 08/21/21] pantoprazole 20 mg tablet,delayed release 20 mg PO DAILY tab 02/09/21 [History Confirmed 08/21/21] aspirin 81 mg tablet,delayed release 81 mg PO DAILY 08/13/21 [History Confirmed 08/21/21] atorvastatin 10 mg tablet 5 mg PO .COMPLEX #45 tab 08/13/21 [Rx Confirmed 08/21/21] ezetimibe 10 mg tablet 5 mg PO .QOD #45 tab 08/13/21 [Rx Confirmed 08/21/21] PFSH Medical History Arthritis Atherosclerotic heart disease of [place] coronary artery without angina pectoris CAD (coronary artery disease) Diverticulitis Essential hypertension Hemorrhoids Hx of squamous cell carcinoma of skin Hyperlipidemia Old myocardial infarction GO (obstructive sleep apnea) Presence of stent in coronary artery (~05/23/09) Seasonal allergies Surgical History History of colonoscopy (~2018) History of left heart catheterization Hx of knee surgery Hx of shoulder surgery Presence of coronary angioplasty implant and graft (~05/23/09) Family History Father Hypertension CAD (coronary artery disease) Mother CAD (coronary artery disease) Brother Cancer Skin cancer- Outside of anus Social History Smoking Status: Current every day smoker second hand exposure: Yes alcohol intake: current alcohol intake frequency: holidays/special occasions only substance use type: does not use caffeine: Yes Type: carbonated beverages Number of servings: 2 and coffee Number of servings: 2 what type of physical activity do you participate in: none frequency: does not exercise seatbelt use: always HPI HPI HPI: MEIR LANDRUM, is a 66 M who presents to the office today for need for repeat colonoscopy due to history of colon polyps as well as some left-sided abdominal pain which has resolved since patient made appointment. PCP for diverticulitis and was given 7 days of antibiotics Cipro/Flagyl. Patient did not have a CAT scan. Patient was also started have some pain when he made this appointment however that has resolved. States he has bowel movements daily denies any blood denies any nausea/vomiting patient last colonoscopy was in March 2018 patient did have 3 polyps at that time plan repeat in 3 years. ROS General General: No weight change, appetite, fatigue, colon cancer, breast cancer or weakness HEENT HEENT: No difficulty swallowing, eye injury, eye surgery, swollen glands or hoarseness Endo Endocrine: No thyroid disease, diabetes mellitus, thyroid cancer, Hair loss, heat intolerance or cold intolerance Musc Musculoskeletal: Yes back problems and arthritis; No rheumatoid arthritis, gout or joint pain Cardio Cardiovascular: Yes heart disease, heart attack and heart stent; No murmur, pacemaker, atrial fibrillation, high blood pressure, palpitations, shortness of breat with exertion or chest pain Psych Psychiatric: No depression, anxiety or hearing voices Resp Respiratory: No shortness of breath, Yes sleep apnea, No cough, No COPD, No asthma, No emphysema and No wheezing Gastro Gastrointestinal: No abdominal pain, No nausea or vomiting, No diarrhea, No constipation, No blood in stool, No acid reflux, No hemorrhoids, No ulcers, No gallbladder problem and No black,tarry stools Mario Hematologic: Yes blood thinners, No blood disorders, No bleeding, No anemia and No blood clots Neuro Neurologic: No weakness Exam Const General: cooperative, healthy appearing, comfortable and no acute distress Neck Neck: normal visual inspection Resp Effort & Inspection: normal respiratory effort Cardio Rate: regular rate GI Inspection: non-distended Palpation: soft, no guarding and nontender Skin General: no rashes or lesions noted Neuro General: patient oriented x3 Psych Affect: normal affect Assessment and Plan Assessment and Plan (1) Hx of colonic polyps: Status: Acute Plan - Dr. Marisol Colin MD: I have discussed the above with the patient. I have offered the patient colonoscopy for evaluation. I have explained the risks/benefits of the procedure and described the procedure. I have discussed the risks with the patient, including but not limited to: infection, bleeding, perforation of the GI tract requiring emergency surgery, inability to complete the procedure, injury to any internal organs, complications of anesthesia, etc. - the patient understands and agrees to proceed. I have answered all the patient's questions to the patient's satisfaction and the patient has no further questions. The patient has been given instructions for the colon cleansing preparation. 1 day of clears, MiraLAX Dulcolax split prep. Marisol Colin M.D. Pager: [phone] [facility] [address] [place] [address], [address] [place] [address] Office: [phone] Coding Level of Care Code Off vis,est,level 3 Diagnoses Hx of colonic polyps Z86.010 08/22/21 0940<Electronically signed by Marisol Colin MD>Date Marisol Colin MD
[2021-08-27] MEDS: Lactated Ringers 1,000 ML 15 ML IV (07:45)
--- NOTE | 2021-08-27 08:15 | COLBX_PTH ---
PATIENT: MEIR LANDRUM LOC: EN U#:[id number] AGE/SX: 66/M ROOM: RE08/27/[address]: Dr. Marisol Colin MD : 1955 BED: DIS: 08/27/2021 SPEC #: [id number] RECD: 08/27/21 10:37 STATUS: PAT REMohit #: [id number] VU: 08/27/21 08:[address]: Marisol Colin DEPT: SURGICAL PATHOLOGY RECD BY: Yeni Castañeda ENTERED: 08/27/21 11:20 SP TYPE: COLON BX OTHR DR: Dr. Nicolás Hernandez, DO Tissues: A - Cecum, NOS B - Transverse colon C - Descending colon D - Sigmoid colon biopsy E - Rectum, NOS Procedures: Surgery Specimen Level IV HEADER OPERATION: Colonoscopy (MAC) PRE-OP DIAGNOSIS: History of colon polyps TISSUE SUBMITTED: A ? Cecal polyp biopsies, B ? Transverse polyp biopsy, C ? Descending polyps biopsy x2, D ? Sigmoid polyp, E ? Rectal polyp biopsy MICROSCOPIC DIAGNOSIS A. Cecal polyp, biopsy: Fragments of tubular adenoma. B. Transverse colon polyp, biopsy: Fragments of tubular adenoma. C. Descending colon polyps, biopsy: Fragments of tubular adenoma. D. Sigmoid colon polyp, biopsy: Fragments of tubular adenoma. E. Rectal polyp, biopsy: Hyperplastic polyp. AM:alissa 08/28/2021 MICROSCOPIC DESCRIPTION Slides are reviewed. GROSS DESCRIPTION A - Received in fixative is one container labeled with the patient's name and designated cecal polyp biopsy. The specimen consists of two irregular fragments of light mendez soft tissue that in aggregate measure 0.6 x 0.5 x 0.1 cm. The specimen is totally submitted in one cassette. B - Received in fixative is one container labeled with the patient's name and designated transverse polyp. The specimen consists of multiple irregular fragments of light mendez soft tissue that in aggregate measure 1 x 0.3 x 0.1 cm. The specimen is totally submitted in one cassette. C - Received in fixative is one container labeled with the patient's name and designated descending polyp. The specimen consists of multiple irregular fragments of light mendez soft tissue that in aggregate measure 1 x 0.5 x 0.1 cm. The specimen is totally submitted in one cassette. D - Received in fixative is one container labeled with the patient's name and designated sigmoid polyp. The specimen consists of multiple irregular fragments of light mendez soft tissue that in aggregate measure 2 x 1 x 0.1 cm. The specimen is totally submitted in one cassette. E - Received in fixative is one container labeled with the patient's name and designated rectal polyp. The specimen consists of one irregular fragment of light mendez soft tissue that measures 0.3 x 0.3 x 0.1 cm. The specimen is totally submitted in one cassette. / AM:alissa 08/27/21 TC:5 CPT: 67715 x5
[2021-08-27] MEDS: Glucagon 1 MG/ML Syringe (08:34)
--- NOTE | 2021-08-27 09:20 | OP.COLON_ITS ---
Patient Name: Amol Mejias Procedure Date: 08/27/2021 8:08 AM Date of : 1955 Age: 66 Procedure: Colonoscopy Indications: High risk colon cancer surveillance: Personal history of colonic polyps Providers: Marisol Colin MD Medicines: Monitored Anesthesia Care Patient Profile: This is a 66 year old male. Last Colonoscopy: 2018. Complications: No immediate complications. Procedure: Pre-Anesthesia Assessment: - Prior to the procedure, a History and Physical was performed, and patient medications and allergies were reviewed. The patient's tolerance of previous anesthesia was also reviewed. The risks and benefits of the procedure and the sedation options and risks were discussed with the patient. All questions were answered, and informed consent was obtained. Prior Anticoagulants: The patient has taken aspirin, last dose was 5 days prior to procedure. ASA Grade Assessment: Per anesthesia. After reviewing the risks and benefits, the patient was deemed in satisfactory condition to undergo the procedure. After I obtained informed consent, the scope was passed under direct vision. Throughout the procedure, the patient's blood pressure, pulse, and oxygen saturations were monitored continuously. The pediatric colonoscope was introduced through the anus and advanced to the cecum, identified by appendiceal orifice and ileocecal valve. The colonoscopy was performed without difficulty. The patient tolerated the procedure well. The quality of the bowel preparation was good. Scope In: 8:16:21 AM Scope Withdrawal Time 0 hours 46 minutes 44 seconds Scope Out: 9:11:13 AM Total Procedure Duration Time 0 hours 54 minutes 52 seconds Findings: The perianal and digital rectal examinations were normal. Six sessile polyps were found in the rectum, descending colon, transverse colon and cecum. The polyps were less than 5 mm in size. These polyps were removed with a cold biopsy forceps. Resection and retrieval were complete. A 5 mm polyp was found in the sigmoid colon. The polyp was semi-pedunculated. The polyp was removed with a hot snare. Resection and retrieval were complete. Multiple small-mouthed diverticula were found in the sigmoid colon and descending colon. The exam was otherwise without abnormality on direct and retroflexion views. Impression: - Six less than 5 mm polyps in the rectum, in the descending colon, in the transverse colon and in the cecum, removed with a cold biopsy forceps. Resected and retrieved. - One 5 mm polyp in the sigmoid colon, removed with a hot snare. Resected and retrieved. - Diverticulosis in the sigmoid colon and in the descending colon. - The examination was otherwise normal on direct and retroflexion views. Recommendation: - Discharge patient to home. - High fiber diet. - Continue present medications. - Await pathology results. - Repeat colonoscopy in 3 years for surveillance based on pathology results. Procedure Code(s): --- Professional --- 50137, PT, Colonoscopy, flexible; with removal of tumor(s), polyp(s), or other lesion(s) by snare technique 99344, 59, Colonoscopy, flexible; with biopsy, single or multiple Diagnosis Code(s): --- Professional --- Z86.010, Personal history of colonic polyps K62.1, Rectal polyp D12.4, Benign neoplasm of descending colon D12.3, Benign neoplasm of transverse colon (hepatic flexure or splenic flexure) D12.0, Benign neoplasm of cecum D12.5, Benign neoplasm of sigmoid colon K57.30, Diverticulosis of large intestine without perforation or abscess without bleeding CPT copyright 2017 [employer]. All rights reserved. The codes documented in this report are preliminary and upon computer language coder review may be revised to meet current compliance requirements. MD Marisol Schreiber MD 08/27/2021 9:19:23 AM This report has been signed electronically. Number of Addenda: 0 Note Initiated On: 08/27/2021 8:08 AM
--- NOTE | 2021-08-27 09:21 | OP.CCLET_ITS ---
08/27/2021 Nicolás Hernandez [address] [place] [address] Re : Colonoscopy procedure for Amol Mejias Dear Dr. Hernandez This procedure was performed on Friday, August 27, 2021. My impressions and recommendations are as follows: Impressions : - Six less than 5 mm polyps in the rectum, in the descending colon, in the transverse colon and in the cecum, removed with a cold biopsy forceps. Resected and retrieved. - One 5 mm polyp in the sigmoid colon, removed with a hot snare. Resected and retrieved. - Diverticulosis in the sigmoid colon and in the descending colon. - The examination was otherwise normal on direct and retroflexion views. Recommendations : - Discharge patient to home. - High fiber diet. - Continue present medications. - Await pathology results. - Repeat colonoscopy in 3 years for surveillance based on pathology results. My findings are described in the full procedure note, which is enclosed. If I can be of further assistance, please feel free to contact me at Doctor phone number(s): , Work: . Sincerely, MD Marisol Schreiber MD 08/27/2021 9:19:23 AM This report has been signed electronically.
== END 2021-08-27 10:01 | disposition home or self-care (01) ==
LOC: EN 07:07 → AC 07:08
PROVIDERS: PCP Family Medicine; Referring Provider Family Medicine; Visit Provider Surgery
PROC: 0DJD8ZZ Inspection of Lower Intestinal Tract, Via Natural or Artificial Opening Endoscopic (ICD-10-PCS; CPT 45378; principal; 2021-08-27 08:10)
DX: D12.0 Benign neoplasm of cecum (principal); D12.3 Benign neoplasm of transverse colon; D12.4 Benign neoplasm of descending colon; D12.5 Benign neoplasm of sigmoid colon; K62.1 Rectal polyp; K57.30 Diverticulosis of large intestine without perforation or abscess without bleeding; Z86.010 Personal history of colon polyps; I10 Essential (primary) hypertension; I25.10 Atherosclerotic heart disease of native coronary artery without angina pectoris; M19.90 Unspecified osteoarthritis, unspecified site; E78.5 Hyperlipidemia, unspecified; I25.2 Old myocardial infarction; G47.33 Obstructive sleep apnea (adult) (pediatric); Z87.19 Personal history of other diseases of the digestive system; Z87.442 Personal history of urinary calculi; Z85.828 Personal history of other malignant neoplasm of skin; Z95.1 Presence of aortocoronary bypass graft; Z79.82 Long term (current) use of aspirin; Z79.899 Other long term (current) drug therapy; F17.200 Nicotine dependence, unspecified, uncomplicated
CPT/HCPCS: 45380; 45385; 88305; J7120; J1610; J2405

== ENCOUNTER 2021-11-05 15:30 | Outpatient (RCR) | payer OTHER, SELFPAY ==
--- NOTE | 2021-09-12 18:52 | HP.PTEVAL_ITS ---
Patient's Visit Information MEIR LANDRUM is a 66 year old M referred to Physical Therapy by MENA WILCOX with a diagnosis of Lumbar facet arthropathy. Date of Evaluation: 09/12/21 Physical Therapist: LAYLA Pruett - Visit Plan Frequency: 2x /Week Duration: 6 Weeks Plan: 2X/ week for 6 weeks for AT for neutral spine core stability, hip strength, postural exercises, deep water hang, proper movement mechanics with bending etc with HEP - Subjective Pt had a hip replacement Jul 02. He has always had a bad back and he has arthritis and disc issues. He has always had some back soreness. But the last week before surgery he found his back that it tightened up worst. Bending FW increases his pain. If he sits and relaxes it is better. He wears suspenders. If he puts a belt on his back will tighten up and the elastic on his boxers will set his back off. Any pressure like that increases his pain. He went to a chiropractor last week and did get some relief. He has no pain that goes down the back of the legs. He takes a break at work. He is on mobic and Tylenol and Alieve. He has been cutting his hours short due to pain. By the next morning he feels better but it starts up again the next day. Chiro says that his pelvis is way off and seeing him again on Friday. He had a R THR in June. He still has bad habits due to the amount of pain he had in his R hip prior to surgery. He works everyday. - Pain Back Pain Pain Intensity (Out of 10): 2 Pain Intensity Range: 8 Comment: after work - Objective Gait: Walks with slight antalgic gait on the R with R shoulder dips. Pt is able to walk on heels and toes. Trunk AROM: flexion 50%, Ext 25%, SB B 75%, Rot B 75%. LE MMT: hip flex B 4/5, R hip abd 4-/5 and L hip and 4/5, pt is able to do a full ROM bridge, B knee flex 4/5, B knee ext 4/5. Patella DTR's: 2+/3. -SLR B. Palpation: tender to palpation along the L paraspinals around L3-L4. Pt demonstrates that when he goes to reach for something he can not bend straight FW and he tends to reach his R arm across his body to get something off the floor etc.. - Balance/Special Test Scores Oswestry Low Back Score: 11 - Goals Goal 1:: I HEP Goal Time Frame: 6-8 Weeks Goal 2:: Be able to tolerate his work day better with 50% less pain Goal Time Frame: 6-8 Weeks Goal 3:: Increase posture to demonstrate proper pain free posture to be able to do during his work day. Goal Time Frame: 6-8 Weeks Goal 4:: Increase LE strength by 1/2 muscle grade (at time of eval: LE MMT: hip flex B 4/5, R hip abd 4-/5 and L hip and 4/5, pt is able to do a full ROM bridge, B knee flex 4/5, B knee ext 4/5). Goal Time Frame: 6-8 Weeks Goal 5:: Be able to demonstrate how to reach fw to get something off the floor etc without having to cross his body due to bad habits with his hip pain prior to R hip surgery. Goal Time Frame: 6-8 Weeks - Rehabilitation Potential Rehabilitation Potential: Good - Anticipated Interventions Patient/Client Instruction: Educate patient on: Condition, Plan of Care For the Purpose of:: To decrease pain, To increase ROM, To improve nutrient deli very to tissue, To improve muscle performance and motor function, To improve ability to perform ADL's, To increase tolerance to activity/condition/position, To improve performance and independence with ADL's, To improve ability of physical actions for home/community/work/leisure, To improve gait and locomotor functions, To improve health of tissue, To increase flexibility/ROM Therapeutic Exercise to Include: Strength training, Body mechanics, Postural training, Flexibilty training, Gait and locomotor training, Neuromotor development, In an aquatic setting, Passive ROM, Active ROM, Dynamic Lumbar Stabilization For the Purpose of:: To decrease pain, To increase ROM, To improve nutrient delivery to tissue, To improve muscle performance and motor function, To improve ability to perform ADL's, To increase tolerance to activity/condition/position, To improve performance and independence with ADL's, To improve ability of physical actions for home/community/work/leisure, To improve gait and locomotor functions, To decrease soft tissue restriction, To increase flexibility/ROM Functional Training to Include: Gait training For the Purpose of:: To improve gait and locomotor functions Thank you for the opportunity to evaluate your patient. For Medicare and Medicare HMO plans, please review the plan of care and approve it. It will need to be FAXED BACK to us at [phone] for Medicare purposes. For Medicare only, by signing this I certify the plan of care. Please let me know if there are questions or concerns regarding this plan of care. Physician Signature: Date:
--- NOTE | 2021-11-05 15:53 | HP.PTDCSUM ---
It has been my pleasure to treat MEIR LANDRUM referred by MENA WILCOX, with the diagnosis of Lumbar facet arthropathy for a total of 13 visit(s). Discharge Date: 11/05/21 Please see the following information for a summary of their discharge status. Subjective: Pt does not wake up with that much pain anymore and he used to wake up with pain. He has to make an appt with his Dr. He likes the water a lot. He feels stronger. Feels less pain. Pt wants to save his remaining to visits for other ailments. Back Pain Pain Intensity (Out of 10): 2 % Improvement: 40 Objective/Function: LE MMT: hip flex R 4/5 and L 4-/5, R hip abd 4/5 and L hip and 4/5, pt is able to do a full ROM bridge, B knee flex 4+/5, B knee ext 4+/5). Goal 1:: I HEP Goal Progress: Goal Met Goal 2:: Be able to tolerate his work day better with 50% less pain Goal Progress: Goal Met Goal 3:: Increase posture to demonstrate proper pain free posture to be able to do during his work day. Goal Progress: Progressing Goal 4:: Increase LE strength by 1/2 muscle grade (at time of eval: LE MMT: hip flex B 4/5, R hip abd 4-/5 and L hip and 4/5, pt is able to do a full ROM bridge, B knee flex 4/5, B knee ext 4/5). Goal 5:: Be able to demonstrate how to reach fw to get something off the floor etc without having to cross his body due to bad habits with his hip pain prior to R hip surgery. Goal Progress: Goal Met Plan: DC PT to HEP Discharge Comments: DC PT TO HEP If there are questions or concerns regarding this patient's physical therapy, please feel free to call me at [phone]. Thank you for the referral of this patient. Sincerely, Susan Mauro, MPT Balance/Gait/Functional tests - Balance/Special Test Scores Oswestry Low Back Score: 13
== END 2021-11-05 19:00 | disposition home or self-care (01) ==
LOC: PT 15:30
PROVIDERS: PCP Family Medicine; Visit Provider Anesthesiology Pain Medicine
DX: M47.816 Spondylosis without myelopathy or radiculopathy, lumbar region (principal)
CPT/HCPCS: 97113; 97161; 97530

== ENCOUNTER 2022-01-08 17:00 | Outpatient (RCR) | payer OTHER, SELFPAY ==
--- NOTE | 2021-12-13 18:23 | HP.PTEVAL ---
Patient's Visit Information MEIR LANDRUM is a 66 year old M referred to Physical Therapy by Dr. Terra Gonzalez MD with a diagnosis of L shoulder OA. Date of Evaluation: 12/13/21 Physical Therapist: Randal Ruvalcaba DPT, OCS, CSCS - Visit Plan Frequency: 2-3x /Week Duration: 4-6 Weeks Plan: 2-3x/week for 4-6 weeks. 1. US nonthermal to L infraspinatus muscle, CFM to same and STM same. PROM work on ext rotation and flexion. 2. Gentle mobs grade 2-4 to L g-h joint. 3. strength progression L RC and scap, postural emphasis - Subjective L shoulder has hurt on and off for 5 years, cortisone shots from Dr. Powers. Has had R shouldr cleaned out. Started seeing Borussa which did not help then Basali injections which helped. 06/28 got AGUSTIN and shoulder was worse. Injection in October and lasted 3-4 days. Hurting ever since. Met with surgeon at [facility] and had x rays and Catscan but is a TSA candidate. Is bone on bone in shoulder and has spurs. Wants to try to get relief from therapy. Will see ortho January 3 may have TSA in fall. Has to walk arm up wall to put deodorant on. Pain daily is 10/10 if using it. 0/10 at rest most times. sleep: wakes up often at night. Up 4x last night if rolls on it. Uses alleve like skittles. 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 Hobbies: golf and swimming and scuba. Time has not allowed him to do those. Basic ADLs: Dressing I modificed and painful. All I. Has not done any exercises for shoulder. - Pain L posterior shoulder Pain Intensity (Out of 10): 0 Pain Intensity Range: 0, 10 - Objective L scap elevated significantly vs R, FW head and protracted scap posture. Tender to palpation in infraspinatus insertion and post joint surface as well as infra belly. cervical AROM wfl adn without pain today. R UE AROM WFL elevation limited to 140 adn ext rotation to 65. L shoulder AROM 39 ext rotation with pain, full IR without pain, elevation to 130 and painful flexion and abduction, painful empty can and resisted with er and flexion, abd. + HK, + neer, + scour L, =- ext rotation lag test, - drop arm. Obvious pain with elevation and cross body. Elbow and wrist AROM and strength full. reflexes 2/3 bi and tri. Sensation UE WNL to gross light touch. - Balance/Special Test Scores Quick DASH Score: 54.5450 - Goals Goal 1:: AROM flexion L 145 and ext rotation 55 without pain to facilitate work. Goal Time Frame: 4-6 Weeks Goal 2:: Pain to 4/10 at worst and manageable at 70% better Goal Time Frame: 4-6 Weeks Goal 3:: I approp HEP to manage symptoms Goal Time Frame: 4-6 Weeks Goal 4:: Quickdash score 20 or better. Goal Time Frame: 4-6 Weeks - Rehabilitation Potential Physical Therapy Diagnosis: L shoulder OA Rehabilitation Potential: Fair - Anticipated Interventions Patient/Client Instruction: Educate patient on: Condition, Plan of Care For the Purpose of:: To decrease pain, To increase ROM, To increase tolerance to activity/condition/position Therapeutic Exercise to Include: Strength training, Postural training, Flexibilty training, Passive ROM, Active ROM For the Purpose of:: To decrease pain, To increase ROM, To improve muscle performance and motor function, To increase tolerance to activity/condition/position Manual Therapy Techniques to Include: Mobilization, Passive ROM, Soft tissue mobilization For the Purpose of:: To decrease pain, To increase ROM, To improve muscle performance and motor function, To increase tolerance to activity/condition/position, To improve ability of physical actions for home/community/work/leisure Cryotherapy (ice pack, ice massage): Yes Thermo therapy (hot pack): Yes Ultrasound (thermal/non thermal): Yes - nonthermal For the Purpose of:: To decrease pain, To increase ROM, To improve muscle performance and motor function, To increase tolerance to activity/condition/position, To improve ability of physical actions for home/community/work/leisure, To improve gait and locomotor functions Thank you for the opportunity to evaluate your patient. For Medicare and Medicare HMO plans, please review the plan of care and approve it. It will need to be FAXED BACK to us at [phone] for Medicare purposes. For Medicare only, by signing this I certify the plan of care. Please let me know if there are questions or concerns regarding this plan of care. Physician Signature: Date:
--- NOTE | 2022-01-08 17:16 | HP.PTDCSUM ---
It has been my pleasure to treat MEIR LANDRUM referred by Dr. Terra Gonzalez MD, with the diagnosis of L shoulder OA for a total of 6 visit(s). Discharge Date: 01/08/22 Please see the following information for a summary of their discharge status. Subjective: Saw surgeon today to review Catscan. Decided that work is too busy for surgery right now. Willing to keep doing strengthening and he was given a shot today. Steroid always helps and is still numb from the procedure. No real relief from the exercises he did in therapy but did work to I with band exercises. Still working with saw and drill. L posterior shoulder Pain Intensity (Out of 10): Unrated % Improvement: 0 Objective/Function: 143 AROM flexion, 45 ext rotation ROM on L arm. Strength is 4/5 with pain on empty can moderately and flexion minimally. Overall objective and subjective about the same. Pt feels I in continued home strength and will continue this 3x/weedk Goal 1:: AROM flexion L 145 and ext rotation 55 without pain to facilitate work. Goal Progress: Not Progressing Goal 2:: Pain to 4/10 at worst and manageable at 70% better Goal Progress: Not Progressing Goal 3:: I approp HEP to manage symptoms Goal Progress: Goal Met Goal 4:: Quickdash score 20 or better. Goal Progress: Progressing Plan: d/c Discharge Comments: d/c to HEP If there are questions or concerns regarding this patient's physical therapy, please feel free to call me at [phone]. Thank you for the referral of this patient. Sincerely, Randal Ruvalcaba, DPT, OCS, CSCS Balance/Gait/Functional tests - Balance/Special Test Scores Quick DASH Score: 36.3625
== END 2022-01-08 19:00 | disposition home or self-care (01) ==
LOC: PT 17:00
PROVIDERS: PCP Family Medicine; Referring Provider Anesthesiology Pain Medicine; Visit Provider Anesthesiology Pain Medicine
DX: M19.012 Primary osteoarthritis, left shoulder (principal)
CPT/HCPCS: 97035; 97110; 97140; 97161; 97164

== ENCOUNTER → 2022-02-18 | Outpatient (CLI) | payer OTHER, SELFPAY ==
[2022-02-18 09:10] LABS: AST(SGOT) 29 U/L (15-37); Alanine Aminotransfer ALT/SGPT 33 U/L (16-61); Albumin, Serum 3.7 g/dL (3.2-5.0); Alkaline Phosphatase 69 U/L (45-117); Bilirubin, Direct 0.12 mg/dL (0.00-0.30); Cholesterol 171 mg/dL (200); Globulin 2.9 g/dL (2.2-4.2); High Density Lipoprotein 43 mg/dL; Protein, Total 6.6 g/dL (6.4-8.2); Triglycerides 212 mg/dL; Very Low Density Lipoprotein 42 mg/dL (5-40)
== END | disposition home or self-care (01) ==
LOC: LAB 08:09
PROVIDERS: Internal Medicine Cardiovascular Disease; PCP Family Medicine; Referring Provider Internal Medicine Cardiovascular Disease; Visit Provider Internal Medicine Cardiovascular Disease
DX: E78.00 Pure hypercholesterolemia, unspecified (principal); E78.5 Hyperlipidemia, unspecified
CPT/HCPCS: 36415; 80061; 80076

== ENCOUNTER → 2022-05-09 | Outpatient (CLI) | payer MEDICARE, OTHER, SELFPAY ==
--- NOTE | 2022-05-09 13:44 | STRESSREP_ITS ---
Stress Test Report Date: 05-09-2022 Procedure: Exercise tolerance test/imaging study Indications: Chest pain; CAD; status post PCI Consent: Per the patient Procedure: The patient exercised on a Sean protocol for 5 minutes and 36 seconds completing completing Stage I and 2 minutes and 36 seconds of Stage II achieving a peak heart rate of 130 bpm (83% predicted maximal heart rate) with a peak blood pressure 152/68 mmHg and a peak MET capacity of 7 METs. The baseline ECG demonstrated normal sinus rhythm. The peak exercise ECG demonstrated no obvious ECG changes at the heart rate achieved. There were no cardiac dysrhythmias pretest, during exercise, or recovery. The functional capacity was considered good. There was no complaint of chest discomfort during exercise or recovery. The examination was discontinued secondary to dyspnea and leg discomfort. Impression: 1. Technically adequate (percent predicted maximal heart rate greater than 85%) exercise tolerance test 2. Peak exercise ECG with no obvious ECG changes at the heart rate achieved 3. There were no cardiac dysrhythmias pretest, during exercise, or recovery 4. Nuclear images pending Myocardial perfusion imaging study: Technique: The patient was injected with 14.7 mCi of technetium 99m Cardiolite and subsequently rest SPECT Cardiolite nuclear imaging was obtained in the horizontal long, vertical long, and short axis views. The patient exercised on a Sean protocol for 5 minutes and 36 seconds completing completing Stage I and 2 minutes and 36 seconds of Stage II achieving a peak heart rate of 130 bpm (83% predicted maximal heart rate) with a peak blood pressure 152/68 mmHg and a peak MET capacity of 7 METs. The patient was injected with 44.3 mCi of technetium 99 m Cardiolite and subsequently stress SPECT Cardiolite nuclear imaging was obtained in the horizontal long, vertical long, and short axis views. A gated Cardiolite study at peak stress was obtained. Interpretation: Rest and stress SPECT Cardiolite nuclear imaging status post realignment, normalization, and attenuation correction, demonstrates the appearance of extracardiac/gastrointestinal tracer uptake near the inferior segments and otherwise relative uniform tracer uptake and myocardial perfusion appearing within normal limits. There is end systolic thickening and brightening. The gated Cardiolite study demonstrates myocardial thickening and inward wall motion. The reported LVEF is 58%. Impression: 1. Rest and stress SPECT Cardiolite nuclear imaging demonstrate relative uniform tracer uptake and myocardial perfusion appearing within normal limits. 2. The gated Cardiolite study reports an LVEF of 58%. This note was generated with [email or web address] software. It may contain incorrect words, spelling, and punctuation that were not noted in checking the note before signing.
== END | disposition home or self-care (01) ==
LOC: CVS 06:35
PROVIDERS: PCP Family Medicine; Referring Provider Nurse Practitioner Family; Visit Provider Nurse Practitioner Family
DX: R07.9 Chest pain, unspecified (principal); I25.10 Atherosclerotic heart disease of native coronary artery without angina pectoris; Z95.5 Presence of coronary angioplasty implant and graft; I10 Essential (primary) hypertension; E78.5 Hyperlipidemia, unspecified
CPT/HCPCS: 78452; 93017; A9500; A4216

== ENCOUNTER 2022-08-09 10:52 | Outpatient (CLI) | payer MEDICARE, OTHER, SELFPAY | END 2022-08-09 23:59 | disposition home or self-care (01) | PROVIDERS: PCP Family Medicine; Visit Provider Otolaryngology Otolaryngology/Facial Plastic Surgery | DX: J32.8 Other chronic sinusitis (principal) | CPT/HCPCS: 87070; 87205 ==

== ENCOUNTER → 2022-11-08 | Outpatient (CLI) | payer MEDICARE, OTHER, SELFPAY ==
[2022-11-08 17:41] LABS: Absolute Lymphocyte Count 2.58 X10^3/uL (0.83-4.51); Absolute Neutrophil Count 7.3 X10^3/uL (2.0-7.7); Basophil# 0.14 X10^3/uL; Basophil% 1.1 % (0-1); Eosinophil# 1.21 X10^3/uL; Eosinophils% 9.8 % (0-5); Hematocrit 50.2 % (40-54); Hemoglobin 16.7 g/dL (13.0-16.5); Lymphocyte # 2.58 X10^3/ul (0.83-4.51); Lymphocyte % 20.9 % (19-41); Mean Corp Hgb Conc 33.3 g/dL (32-36); Mean Corpuscular Hgb 30.4 pg (27.0-32.0); Mean Corpuscular Volume 91.4 fL (80-94); Mean Platelet Vol. 8.5 fl (6.2-12.0); Monocyte# 0.98 X10^3/uL; NRBC Flagged by Analyzer 0 % (0-5); Neutrophil # 7.31 X10^3/uL (2.7-7.7); Neutrophil % 59.4 % (47-70); Platelet Count 295 K/mm3 (150-450); RBC Distribution Width CV 13.3 % (11.6-14.6); RBC Distribution Width SD 45.4 fl (35.1-43.9); Red Blood Count 5.49 M/mm3 (4.6-6.2); White Blood Count 12.3 K/mm3 (4.4-11.0)
[2022-11-08 17:44] LABS: Anion Gap 8 (5-15); BUN 17 mg/dL (7-18); Calcium,Total 9.4 mg/dL (8.5-10.1); Chloride 103 mmol/L (98-107); Creatinine, Serum 1.13 mg/dL (0.70-1.30); EST Glomerular Filtration Rate 69 mL/min (>60); Est Glom Filt Rate - Afr Amer 84 mL/min (>60); Glucose 91 mg/dL (74-106); PSA,Total - Annual Screen 2.21 ng/mL (0.00-4.00); Potassium 4.3 mmol/L (3.5-5.1); Sodium Level 138 mmol/L (136-145)
== END | disposition home or self-care (01) ==
LOC: BFHLAB 14:12
PROVIDERS: PCP Family Medicine; Visit Provider Family Medicine
DX: Z12.5 Encounter for screening for malignant neoplasm of prostate (principal); I25.10 Atherosclerotic heart disease of native coronary artery without angina pectoris; Z51.81 Encounter for therapeutic drug level monitoring; Z79.899 Other long term (current) drug therapy
CPT/HCPCS: 36415; 80048; 84153; 85025; G0103

== ENCOUNTER → 2023-12-25 | Outpatient (CLI) | payer MEDICARE, OTHER, SELFPAY | END | disposition home or self-care (01) | LOC: LABSPEC 15:06 | PROVIDERS: PCP Family Medicine; Visit Provider Otolaryngology Otolaryngology/Facial Plastic Surgery | DX: J32.9 Chronic sinusitis, unspecified (principal) | CPT/HCPCS: 87070; 87077; 87186; 87205 ==

== ENCOUNTER → 2023-12-30 | Outpatient (CLI) | payer MEDICARE, OTHER, SELFPAY ==
--- NOTE | 2023-12-30 08:10 | CT_ITS ---
STUDY: CT MAXILLOFACIAL SINUSES REASON FOR EXAM: Male, 68 years old. CHRONIC SINUSITIS RADIATION DOSAGE (If Supplied By Facility): CTDIvol = ( 28.14 ) mGy, DLP = ( 1450.17 ) mGycm TECHNIQUE: The patient was scanned in a multi detector CT scanner. High resolution axial imaging was performed without the administration of intravenous contrast material. Sagittal and coronal images were reconstructed. Individualized dose optimization techniques were used for this CT. COMPARISON: None. FINDINGS: FRONTAL SINUSES: Mucosal thickening of the left frontal sinus. ETHMOIDAL SINUSES: Partial opacification of the ethmoid sinuses bilaterally. MAXILLARY SINUSES: Mucosal thickening of the maxillary sinuses more prominent in the inferior aspect of the left maxillary sinus. SPHENOIDAL SINUSES: Normal aeration, without mucosal inflammatory disease. There is patency of the bilateral maxillary infundibuli with normal uncinate processes, ethmoid bullae, and hiatus semilunaris. Normal bilateral middle turbinates. Normal bilateral inferior turbinates. Normal midline nasal septum. There is patency of the bilateral nasal airways. The visualized osseous structures are normal. The visualized bilateral orbital contents are normal. CT/Sinus/Facial Bone IMPRESSION: Mucosal thickening of the maxillary sinus bilaterally more prominent in the inferior aspect of the left maxillary sinus. Partial opacification of the ethmoid sinuses. Mucosal thickening of the left frontal sinus. Electronically Signed: Bryan Tellez MD at 10:49 EDT ,
--- NOTE | 2023-12-30 08:10 | RAD_ITS ---
STUDY: X-RAY CHEST REASON FOR EXAM: Male, 68 years old. EMPHYSEMA TECHNIQUE: PA and lateral views of the chest. COMPARISON: None. FINDINGS: Mild cystic emphysematous changes are present. No demonstrated consolidation. The lungs are clear and expanded. There is no demonstrated pleural abnormality. Normal size heart. Normal mediastinum and daria. Normal visualized pulmonary arteries. There is atherosclerotic tortuosity of the aortic arch and descending thoracic aorta. There are diffuse degenerative changes of the visualized thoracic spine. Left shoulder prosthesis noted. There is no demonstrated abnormality of the visualized soft tissue structures of the upper abdomen. RAD/Chest PA and Lateral IMPRESSION: 1. Degenerative changes, as described above. No demonstrated acute cardiopulmonary process. 2. Mild cystic emphysematous changes. Electronically Signed: Mumtaz Resendiz MD at 11:15 EDT ,
== END | disposition home or self-care (01) ==
LOC: CT 08:09
PROVIDERS: PCP Family Medicine; Referring Provider Otolaryngology Otolaryngology/Facial Plastic Surgery; Visit Provider Otolaryngology Otolaryngology/Facial Plastic Surgery
DX: J32.8 Other chronic sinusitis (principal); J43.9 Emphysema, unspecified
CPT/HCPCS: 70486; 71046

== ENCOUNTER → 2024-07-09 | Outpatient (CLI) | payer MEDICARE, OTHER, SELFPAY ==
--- NOTE | 2024-07-09 06:34 | MRI_ITS ---
STUDY: MRI TEMPOROMANDIBULAR JOINTS REASON FOR EXAM: Male, 69 years old. ASSESS RT TMJ FOR ABNORMALITIES, PREV RT TMJ SURGERY TECHNIQUE: Standardized fat and water weighted pulse sequences were obtained in all 3 orthogonal planes. COMPARISON: None. FINDINGS: Left TMJ: In the closed-mouth position, the left mandibular condyle is normally positioned in the mandibular fossa. 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 There is meniscal degeneration with intrasubstance signal alteration and diffuse attrition. There is anterior dislocation of the meniscus of the left temporomandibular joint in the closed mouth position. There is no demonstrated joint effusion. There is limited forward translation of the mandibular condyle on the open mouth position, which does not come to rest under the articular eminence. There is a persistent displacement of the meniscus without recapture of the meniscus in the open mouth position. Right TMJ: In the closed-mouth position, the right mandibular condyle is normally positioned in the mandibular fossa. There is severe osteoarthritis of the right mandibular condyle with a reduction in the size of the condyle, articular flattening, cortical loss, cavitation of the subchondral bone, narrowing of the joint space and osteoarthritic spurring. There is meniscal degeneration with intrasubstance signal alteration and diffuse attrition. There is anterior dislocation of the meniscus of the right temporomandibular joint in the closed mouth position. There is no demonstrated joint effusion. There is limited forward translation of the mandibular condyle on the open mouth position, which does not come to rest under the articular eminence. There is a persistent displacement of the meniscus without recapture of the meniscus in the open mouth position. MRI/TMJ/Bilat IMPRESSION: Severe DJD bilateral TMJs. Meniscus is not well visualized but appears to be anteriorly displaced bilaterally on open and closed views. Electronically Signed: Ruben Norwood MD at 19:14 EDT ,
== END | disposition home or self-care (01) ==
LOC: MRI 06:26
PROVIDERS: PCP Family Medicine; Referring Provider Nurse Practitioner Family; Visit Provider Nurse Practitioner Family
DX: M26.621 Arthralgia of right temporomandibular joint (principal)
CPT/HCPCS: 70336

== ENCOUNTER → 2024-12-09 | Outpatient (CLI) | payer MEDICARE, OTHER, SELFPAY | END | disposition home or self-care (01) | LOC: LABSPEC 15:30 | PROVIDERS: PCP Family Medicine; Referring Provider Otolaryngology Otolaryngology/Facial Plastic Surgery; Visit Provider Otolaryngology Otolaryngology/Facial Plastic Surgery | DX: J32.9 Chronic sinusitis, unspecified (principal) | CPT/HCPCS: 87070; 87077; 87205 ==

== ENCOUNTER → 2025-01-13 | Outpatient (CLI) | payer MEDICARE, OTHER, SELFPAY ==
[2025-01-13 10:02] LABS: Absolute Lymphocyte Count 2.78 X10^3/uL (0.83-4.51); Absolute Neutrophil Count 7.3 X10^3/uL (2.0-7.7); Basophil% 0.8 % (0-1); Eosinophil# 0.88 X10^3/uL; Eosinophils% 7.1 % (0-5); Hematocrit 46.8 % (40-54); Hemoglobin 16.3 g/dL (13.0-16.5); Lymphocyte # 2.78 X10^3/ul (0.83-4.51); Lymphocyte % 22.6 % (19-41); Mean Corp Hgb Conc 34.8 g/dL (32-36); Mean Corpuscular Hgb 30.9 pg (27.0-32.0); Mean Corpuscular Volume 88.6 fL (80-94); Mean Platelet Vol. 8.6 fl (6.2-12.0); Monocyte# 1.18 X10^3/uL; Monocyte% 9.6 % (0-10); NRBC Flagged by Analyzer 0 % (0-5); Neutrophil # 7.28 X10^3/uL (2.7-7.7); Neutrophil % 59.2 % (47-70); Platelet Count 262 K/mm3 (150-450); RBC Distribution Width CV 13.1 % (11.6-14.6); RBC Distribution Width SD 42.5 fl (35.1-43.9); Red Blood Count 5.28 M/mm3 (4.6-6.2); White Blood Count 12.3 K/mm3 (4.4-11.0)
== END | disposition home or self-care (01) ==
PROVIDERS: PCP Family Medicine; Referring Provider Family Medicine; Visit Provider Family Medicine
DX: E78.5 Hyperlipidemia, unspecified (principal); I25.119 Atherosclerotic heart disease of native coronary artery with unspecified angina pectoris; Z98.61 Coronary angioplasty status
CPT/HCPCS: 36415; 85025

== ENCOUNTER → 2025-01-14 | Outpatient (CLI) | payer MEDICARE, OTHER, SELFPAY ==
[2025-01-14 10:01] LABS: ALB/GLOB Ratio 1.5 RATIO (0.9-2.4); AST(SGOT) 31 U/L (<=37); Alanine Aminotransfer ALT/SGPT 27 U/L (<=46); Albumin, Serum 4.2 g/dL (3.4-4.8); Alkaline Phosphatase 85 U/L (40-129); Anion Gap 11 (5-15); BUN 16 mg/dL (4-19); BUN/Creat Ratio 15.4 RATIO (10-20); Bilirubin, Direct 0.12 mg/dL (0.00-0.30); Calcium,Total 9.7 mg/dL (7.6-11.0); Carbon Dioxide 23.9 mmol/L (21.0-32.0); Chloride 105 mmol/L (98-108); Cholesterol 196 mg/dL (<=200); Creatinine, Serum 1.02 mg/dL (0.70-1.20); EST Glomerular Filtration Rate 81 (>60); Globulin 2.8 g/dL (2.2-4.2); Glucose 92 mg/dL (70-99); High Density Lipoprotein 38 mg/dL; Low Density Lipoprotein Calc. 87 mg/dL; PSA,Total - Annual Screen 2.09 ng/mL (0.02-4.00); Potassium 4.6 mmol/L (3.3-5.1); Sodium Level 139 mmol/L (133-145); Triglycerides 358 mg/dL; Very Low Density Lipoprotein 72 mg/dL (5-40); cholesterol:hdl ratio screen 5.19
== END | disposition home or self-care (01) ==
PROVIDERS: PCP Family Medicine; Referring Provider Family Medicine; Visit Provider Family Medicine
DX: I25.10 Atherosclerotic heart disease of native coronary artery without angina pectoris (principal); E78.5 Hyperlipidemia, unspecified; Z12.5 Encounter for screening for malignant neoplasm of prostate; I25.119 Atherosclerotic heart disease of native coronary artery with unspecified angina pectoris; Z98.61 Coronary angioplasty status
CPT/HCPCS: 80053; 80061; 82248; 84153; G0103

== ENCOUNTER → 2025-02-02 | Outpatient (CLI) | payer MEDICARE, OTHER, SELFPAY ==
[2025-02-02 08:17] LABS: Absolute Neutrophil Count 7.6 X10^3/uL (2.0-7.7); Basophil# 0.12 X10^3/uL; Eosinophil# 0.84 X10^3/uL; Eosinophils% 6.9 % (0-5); Hematocrit 47.7 % (40-54); Hemoglobin 16.4 g/dL (13.0-16.5); Lymphocyte % 20.4 % (19-41); Mean Corp Hgb Conc 34.4 g/dL (32-36); Mean Corpuscular Hgb 31.1 pg (27.0-32.0); Mean Corpuscular Volume 90.5 fL (80-94); Mean Platelet Vol. 8.5 fl (6.2-12.0); Monocyte# 1.09 X10^3/uL; Monocyte% 8.9 % (0-10); NRBC Flagged by Analyzer 0 % (0-5); Platelet Count 247 K/mm3 (150-450); RBC Distribution Width SD 43.2 fl (35.1-43.9); Red Blood Count 5.27 M/mm3 (4.6-6.2); White Blood Count 12.3 K/mm3 (4.4-11.0)
[2025-02-02 09:12] LABS: Anion Gap 11 (5-15); BUN 24 mg/dL (4-19); BUN/Creat Ratio 22.1 RATIO (10-20); Calcium,Total 9.2 mg/dL (7.6-11.0); Carbon Dioxide 21.9 mmol/L (21.0-32.0); Chloride 105 mmol/L (98-108); Creatinine, Serum 1.08 mg/dL (0.70-1.20); EST Glomerular Filtration Rate 75 (>60); Glucose 99 mg/dL (70-99); Potassium 4.4 mmol/L (3.3-5.1); Sodium Level 138 mmol/L (133-145)
== END | disposition home or self-care (01) ==
PROVIDERS: PCP Family Medicine; Referring Provider Internal Medicine Cardiovascular Disease; Visit Provider Internal Medicine Cardiovascular Disease
DX: Z01.810 Encounter for preprocedural cardiovascular examination (principal)
CPT/HCPCS: 36415; 80048; 85025

== ENCOUNTER 2025-03-18 13:39 | Emergency (ER) | payer MEDICARE, OTHER, SELFPAY ==
[2025-03-18 13:40] VITALS: BP 120/82; PULSE 98; RESP 18; TEMP 36.6; O2SAT 98; BMI 27.6
--- NOTE | 2025-03-18 15:40 | VDLE_ITS ---
Reason For Study Reason For Study: Swelling RIGHT LEFT GSV harvested for CABG. CFV is compressible, spontaneous, phasic, competent, CFV is compressible, spontaneous, phasic, competent and demonstrates normal augmentation. and demonstrates normal augmentation. FV is compressible, spontaneous, phasic, competent and demonstrates normal augmentation. POP V is compressible, spontaneous, phasic, competent and demonstrates normal augmentation. T/P Trunk is compressible. PTV is compressible. RT PerV is compressible. Procedure This is a venous duplex using B-mode, color flow and spectral Doppler. Exam performed portable in ED. A preliminary report was called and/or faxed to [facility]. VL/Venous Duplex US, Unilateral Interpretation Summary Deep veins of the right lower extremity are patent and compressible segmentally . There is no evidence of right lower extremity deep vein thrombosis. Ordering Physician: Randal Flores Referring Physician: Nicolás Hernandez Performed By: Rhonda Mayfield RVT
--- NOTE | 2025-03-18 15:42 | EX.ED.DYSGE1 ---
HPI History of Present Illness Chief Complaint: Lower Extremity Injury Informant: patient Onset/Context/Timing Onset: Today Context: Sudden Onset Timing: Intermittent Quality: Purple discoloration Location: Plantar aspects of the feet bilaterally Worsened by: Walking Relieved by: Rest Narrative Narrative: Patient presents with discoloration to his feet that was noticed today. Patient states he went for a walk today and after that he noted some discoloration to the plantar aspects of his feet. Patient states that they appeared to be purple. Patient states that this resolved. Patient states he contacted the sheet metal insulator in [place] where he had his recent coronary artery bypass graft and was told to come to the emergency department for evaluation. Patient denies any change in temperature of his feet. Patient denies any pallor. [facility] Medical History Wears glasses Cancer History of steroid therapy Kidney stones High cholesterol Excessive bleeding Easy bruising Back pain History of diverticulitis Gastric reflux Former smoker Sleep apnea History of stress test Cardiology follow-up encounter History of heart attack Presence of stent in coronary artery (~05/23/09) Atherosclerotic heart disease of [place] coronary artery without angina pectoris Essential hypertension Old myocardial infarction Diverticulitis Arthritis Seasonal allergies Hemorrhoids Hx of squamous cell carcinoma of skin GO (obstructive sleep apnea) Hyperlipidemia CAD (coronary artery disease) Home Medications ?Medication ?Instructions ?Recorded ?Last Taken ?Type nitroglycerin 0.4 mg sublingual 0.4 mg sublingual Q5M PRN Chest 03/27/17 Unknown History tablet Pain pantoprazole 20 mg tablet,delayed 20 mg PO DAILY 02/09/21 Unknown History release aspirin 81 mg tablet,delayed 81 mg PO DAILY 08/13/21 08/22/21 History release (Adult Aspirin Regimen) acetaminophen 500 mg tablet 1,000 mg PO BID 02/18/22 Unknown History naproxen sodium 220 mg tablet 440 mg PO BID 02/18/22 Unknown History ezetimibe 10 mg tablet 5 mg (1/2 x 10 mg) PO .QOD #45 tabs 09/11/22 Unknown Rx atorvastatin 10 mg tablet 5 mg (1/2 x 10 mg) PO .COMPLEX #45 04/22/23 Unknown Rx tabs cephalexin 500 mg capsule 500 mg PO Q6 #40 CAPSULES 03/18/25 Unknown Rx Allergy/AdvReac Type Severity Reaction Status Date / Time Penicillins (PCN) Allergy Itching Verified 03/18/25 13:43 ciprofloxacin (From Cipro) AdvReac Intermediate Unknown Verified 03/18/25 13:43 rosuvastatin (From Crestor) AdvReac Other Verified 03/18/25 13:43 simvastatin (From Zocor) AdvReac Other Verified 03/18/25 13:43 Family History Father Hypertension CAD (coronary artery disease) Mother CAD (coronary artery disease) Brother Cancer Skin cancer- Outside of anus Surgical History History of coronary artery stent placement Hx of total hip arthroplasty History of colonoscopy (~2017) Presence of coronary angioplasty implant and graft (~05/23/09) Hx of shoulder surgery History of left heart catheterization Hx of knee surgery Social History Smoking Status: Current every day smoker tobacco type: cigarettes second hand exposure: Yes alcohol intake: current alcohol intake frequency: holidays/special occasions only substance use type: does not use caffeine: Yes Type: carbonated beverages Number of servings: 1, coffee Number of servings: 2 and tea Number of servings: 1 what type of physical activity do you participate in: none frequency: does not exercise seatbelt use: always ROS ROS ED Constitutional Constitutional ED: Denies chills or fever(s) Eyes Eyes: Denies blurry vision or change in vision ENT ENT ED: Denies rhinorrhea or sore throat Cardiovascular Cardiovascular: Reports chest pain; Denies palpitations Respiratory/Chest Respiratory/Chest: Denies cough or dyspnea Gastrointestinal Gastrointestinal: Denies nausea or vomiting Genitourinary Genitourinary ED: Denies dysuria or hematuria Musculoskeletal Musculoskeletal: Denies back pain or neck pain Integumentary Denies abscess or rash Neurologic Neurologic: Denies headache(s) or weakness Allergic/Immunologic Allergic/Immunologic ED: Denies mouth swelling or urticaria EXAM Physical Exam Const Vital Signs: 03/18/25 13:40 03/18/25 15:57 03/18/25 17:00 Temperature 98 F Temperature Source Oral Pulse Rate 98 90 67 Respiratory Rate 18 16 16 Blood Pressure 120/82 H 121/80 H 143/106 H Blood Pressure Mean 94 93 118 Pulse Ox 98 97 97 Oxygen Delivery Method Room Air Room Air Positive well nourished and well developed General Appearance ED: well developed and NAD HEENT Reports moist mucous membranes Neck supple and no JVD Chest Wall Chest Narrative: The incision is healing well. There is no sign of any infection. There is no erythema or warmth. There is no discharge or drainage. Resp normal respiratory effort and clear to auscultation bilaterally Cardio regular rate and regular rhythm GI non-tender and non-distended Palpation: soft Extremity Extremity Narrative: The incisions on the right thigh and lower leg are healing well. There is mild erythema. There is also some mild erythema proximal to the thigh incision. There is no abscess. There is no fluctuance. There is no discharge or drainage. Neuro oriented x3, CN's II-XII intact bilaterally and no sensory deficits noted Sensorium / Orientation: alert Motor Exam: strength 5/5 throughout Psych mental status grossly normal MDM MDM MDM Narrative Medical decision making narrative: Differential diagnosis includes DVT, peripheral vascular disease, dehydration, electrolyte abnormality, and anemia. CBC will be obtained to assess for leukocytosis, anemia, and thrombocytopenia. Basic metabolic profile will be obtained to assess for electrolyte abnormality and renal function. PT was INR and PTT will be obtained to assess for coagulopathy. Venous duplex of the right lower extremity will be obtained to assess for DVT. History & Record Review Additional record(s) reviewed:: Prior labs Lab Data Attestation: I reviewed the patient's lab results. Lab results narrative: CBC was reviewed. There is a leukocytosis of 18.0. There is mild anemia with a hemoglobin of 12.8 and hematocrit 38.2. Basic metabolic profile was reviewed. Creatinine was slightly elevated at 1.46. Labs: Laboratory Results - last 24 hr 03/18/25 15:55 WBC 18.0 H RBC 4.15 L Hgb 12.8 L Hct 38.2 L MCV 92.0 MCH 30.8 MCHC 33.5 RDW Std Deviation 46.4 H RDW Coeff of Lizette 13.9 Plt Count 376 MPV 8.2 Immature Gran % (Auto) 4.300 H Neut % (Auto) 66.2 Lymph % (Auto) 12.7 L [place] % (Auto) 9.6 Eos % (Auto) 6.6 H Baso % (Auto) 0.6 Absolute Neuts (auto) 11.9 H Absolute Lymphs (auto) 2.28 Nucleated RBC % 0 PT 14.1 INR 1.1 APTT 26.8 Sodium 136 Potassium 4.8 Chloride 101 Carbon Dioxide 22.9 Anion Gap 12 BUN 18 Creatinine 1.46 H Estim Creat Clear Calc 52.29 Est GFR (MDRD) Non-Af 52 L BUN/Creatinine Ratio 12.5 Glucose 100 H Calcium 9.2 Radiography Diagnostic Testing: Venous duplex of the right lower extremity was reviewed. There is no evidence of DVT. Treatment and Re-Evaluation :: Patient was advised of his findings. Patient declined IV fluids. Because of the leukocytosis and erythema over the right medial thigh, we will cover for cellulitis. Patient was given a dose of Keflex here and a prescription for Keflex. Patient was instructed to follow-up with his primary care physician and cardiothoracic surgeon as scheduled. Patient understood and was agreeable with plan. All questions were answered. Discharge Plan Triage Chief Complaint: Lower Extremity Injury ED Provider: Randal Flores Dx/Rx/DC Orders Clinical Impression: Cellulitis, Essential hypertension Instructions: ED Cellulitis Prescriptions: New cephalexin 500 mg capsule 500 mg PO Q6 Qty: 40 0RF No Action pantoprazole 20 mg tablet,delayed release (DR/EC) 20 mg PO DAILY Patient Comments: take 1 tablet by mouth once daily aspirin [Adult Aspirin Regimen] 81 mg tablet,delayed release (DR/EC) 81 mg PO DAILY acetaminophen 500 mg tablet 1,000 mg PO BID nitroglycerin 0.4 MG tablet 0.4 mg SUBLINGUAL Q5M PRN (Reason: Chest Pain) naproxen sodium 220 mg tablet 440 mg PO BID ezetimibe 10 mg tablet 5 mg PO .QOD Qty: 45 3RF atorvastatin 10 mg tablet 5 mg PO .COMPLEX Qty: 45 3RF Rx Instructions: 5 mg PO every other day; Primary Care Provider: Nicolás Hernandez Referrals: Nicolás Hernandez DO [Primary Care Provider] - 5-7 Days Print Language: Singaporean Disposition Disposition: Home, Self Care
[2025-03-18 15:57] VITALS: BP 121/80; PULSE 90; RESP 16; O2SAT 97
[2025-03-18 16:06] LABS: Hematocrit 38.2 % (40-54); Hemoglobin 12.8 g/dL (13.0-16.5); Immature Granulocytes Count 0.770 X10^3/uL (0.0-0.0); Mean Corp Hgb Conc 33.5 g/dL (32-36); Mean Corpuscular Volume 92.0 fL (80-94); Mean Platelet Vol. 8.2 fl (6.2-12.0); NRBC Flagged by Analyzer 0 % (0-5); POSITIVE DIFFERENTIAL YES; Platelet Count 376 K/mm3 (150-450); RBC Distribution Width CV 13.9 % (11.6-14.6); RBC Distribution Width SD 46.4 fl (35.1-43.9); Red Blood Count 4.15 M/mm3 (4.6-6.2); White Blood Count 18.0 K/mm3 (4.4-11.0)
[2025-03-18 16:12] LABS: Partial Thromboplast Time 26.8 Seconds (24.1-36.2); Prothrombin Time (Protime)PT. 14.1 SECONDS (11.7-14.9)
[2025-03-18 16:28] LABS: Anion Gap 12 (5-15); BUN 18 mg/dL (4-19); BUN/Creat Ratio 12.5 RATIO (10-20); Calcium,Total 9.2 mg/dL (7.6-11.0); Carbon Dioxide 22.9 mmol/L (21.0-32.0); Chloride 101 mmol/L (98-108); Estimated Creatinine Clearance 52.29 ml/min (50-250); Glucose 100 mg/dL (70-99); Potassium 4.8 mmol/L (3.3-5.1)
[2025-03-18 17:00] VITALS: BP 143/106; PULSE 67; RESP 16; O2SAT 97
[2025-03-18] MEDS: 0.9% Normal Saline (1000mL) 1,000 ML 1000 ML IV (17:00)
--- NOTE | 2025-03-18 17:07 | ED.RN ---
pt on 128oz per day fluid restriction post heart surgery. family concerned about fluids iv. discussed with dr zamora. to hold fluids for now.
[2025-03-18 18:27] VITALS: BP 145/81; PULSE 78; RESP 16; TEMP 36.7; O2SAT 99
[2025-03-18 19:15] LABS: Differential Comment SCANNED
== END 2025-03-18 18:28 | disposition home or self-care (01) ==
PROVIDERS: Emergency Provider Emergency Medicine; PCP Family Medicine; Referring Provider Emergency Medicine; Visit Provider Emergency Medicine
DX: L03.115 Cellulitis of right lower limb (principal); I10 Essential (primary) hypertension; E78.00 Pure hypercholesterolemia, unspecified; I25.10 Atherosclerotic heart disease of native coronary artery without angina pectoris; I25.2 Old myocardial infarction; Z85.828 Personal history of other malignant neoplasm of skin; K21.9 Gastro-esophageal reflux disease without esophagitis; Z79.899 Other long term (current) drug therapy; Z79.82 Long term (current) use of aspirin; Z95.5 Presence of coronary angioplasty implant and graft; Z96.649 Presence of unspecified artificial hip joint; F17.210 Nicotine dependence, cigarettes, uncomplicated
CPT/HCPCS: 80048; 85025; 85610; 85730; 93971; 96360; 99283

== ENCOUNTER → 2025-03-30 | Outpatient (CLI) | payer MEDICARE, OTHER, SELFPAY ==
--- NOTE | 2025-03-30 14:11 | PCM.CR.HP2 ---
CR - History & Physical General Arrival date:: 03/30/25 Arrival time:: 14:11 Date of Referral:: 03/23/25 Date of CR Evaluation:: 03/30/25 Referring Physician: Dr. Ambriz Primary Diagnosis: S/P CABG X 3 History of Present Cardiac Event Onset Date Coronary Artery Bypass Graft:: Yes (onset 03/10/2025) Vessel: IM-LAD, SVG-OM, SVG-PDA Medications Ambulatory Orders Medication Instructions Recorded nitroglycerin 0.4 mg sublingual 0.4 mg sublingual Q5M PRN Chest 03/27/17 tablet Pain pantoprazole 20 mg tablet,delayed 20 mg PO DAILY 02/09/21 release aspirin 81 mg tablet,delayed 81 mg PO DAILY 08/13/21 release (Adult Aspirin Regimen) acetaminophen 500 mg tablet 1,000 mg PO BID 02/18/22 naproxen sodium 220 mg tablet 440 mg PO BID 02/18/22 ezetimibe 10 mg tablet 5 mg (1/2 x 10 mg) PO .QOD #45 tabs 09/11/22 atorvastatin 10 mg tablet 5 mg (1/2 x 10 mg) PO .COMPLEX #45 04/22/23 tabs cephalexin 500 mg capsule 500 mg PO Q6 #40 CAPSULES 03/18/25 Allergies Allergies Penicillins (PCN) Allergy (Verified 03/18/25 13:43) Itching ciprofloxacin (From Cipro) Adverse Reaction (Intermediate, Verified 03/18/25 13:43) Unknown muscle aches rosuvastatin (From Crestor) Adverse Reaction (Verified 03/18/25 13:43) Other simvastatin (From Zocor) Adverse Reaction (Verified 03/18/25 13:43) Other MUSCLE ACHES/JOINT PAIN Sleep Disorder Evaluation Hx of Sleep Apnea: Yes Do you snore loudly (louder than talking or can be heard through closed doors)?: Yes Do you often feel tired/ fatigued/ sleepy during daytime?: Yes Has anyone observed you stop breathing during sleep?: No History of Hypertension (for STOP score): Yes STOP Results: Positive Advanced Directives Advanced Directives Do you have a Healthcare Power of Scale Model Maker?: No Living Will: No Advance Directives Information Provided: No Advance Directives on File: No DNR Order?:: No Past Medical History Covid-19 Screening Physicial Symptoms Other Clinical Concerns Exposure Risk Pertinent Comorbidities 65 years or older:: Yes Has a serious heart condition:: Yes Past Medical Illness Medical History Wears glasses Cancer History of steroid therapy Kidney stones High cholesterol Excessive bleeding Easy bruising Back pain History of diverticulitis Gastric reflux Former smoker Sleep apnea History of stress test Cardiology follow-up encounter History of heart attack Presence of stent in coronary artery (~05/23/09) Atherosclerotic heart disease of [place] coronary artery without angina pectoris Essential hypertension Old myocardial infarction Diverticulitis Arthritis Seasonal allergies Hemorrhoids Hx of squamous cell carcinoma of skin GO (obstructive sleep apnea) Hyperlipidemia CAD (coronary artery disease) Past Surgical History Surgical History History of coronary artery stent placement Hx of total hip arthroplasty History of colonoscopy (~2017) Presence of coronary angioplasty implant and graft (~05/23/09) Hx of shoulder surgery History of left heart catheterization Hx of knee surgery Family History Summary Family History Father Hypertension CAD (coronary artery disease) Mother CAD (coronary artery disease) Brother Cancer Skin cancer- Outside of anus Social History Smoking History Smoking Status: Former smoker Years Smokin (Recently stopped smoking) Packs Smoked per Day: 1 Alcohol Use Alcohol Usage: Yes (rare) Substance Abuse Hx Substance Use: No Occupation Occupation (List type of work in comments):: Retired Social Environment Status Marital Status: Current Living Arrangements Living Environment:: Spouse Safety Do you feel safe in your surroundings?: Yes Assistance Do you need any assistance at home?: no Review of Systems Review of Systems Hints Review of Present Symptoms: Reports Shortness of Breath with Exertion, Operative Discomfort, Dizziness/Lightheadedness, Fatigue and Appetite - Normal; Denies Shortness of Breath at Rest, PVD, Angina, Wound Healing, Heart Arrhythmia/Irregularities, Appetite - Special Diet, Sleep - Normal or Sexual Changes Pain Pain Location: back Pain Level: 10 Risk Factor Assessment Chief Complaint Chief Complaint: S/P CABG Vital Signs Pulse Ox: 96 Blood Pressure: 122/76 Pulse Pulse Rate: 80 Pulse Rhythm: Regular Hypertension Blood Pressure Sitting - Right Arm: 122/76 Obesity Height: 5 ft 11 in Weight:: 228 lb Weight in Pounds: 228.0 lbs Body Mass Index (BMI): 31.8 Physical Inactivity Physical Inactivity: Reg Exercise 30 min/day Risk Stratification Risk Guidelines: Moderate Risk: Risk Factor for Diabetes, Risk Factor for Obesity, Risk Factor for Sedentary Lifestyle and Risk Factor for Depression and Highest Risk: Risk Factor for Smoking, Risk Factor for Dyslipidemia and Risk Factor for Hypertension For Smoking Smoking Risk Guidelines For Dyslipidemia Dyslipidemia Risk Guidelines For Diabetes Mellitus Diabetes Risk Guidelines For Obesity/Overweight Obesity/Overweight Risk Guidelines For Hypertension Hypertension Risk Guidelines For Sedentary Lifestyle Sedentary Lifestyle Risk Guidelines For Depression Depression Risk Guidelines Family History Family History Father Hypertension CAD (coronary artery disease) Mother CAD (coronary artery disease) Brother Cancer Motivation Motivation to Participate On a scale of 1 to 10, how prepared are you to commit to attending program?: 8 What do you see as barriers to successfully being able to complete the program?: nothing What do you see as the benefits of succesfully completing the program? In other words, what do you hope to get out of participating in the program?: mor eenergy Are there issues you are dealing with that will interfere with completing the program?: no Do you have a spouse or signficant other, family or friends who will help support you to complete the program?: yes
[2025-03-30 14:25] VITALS: PULSE 80; O2SAT 96
[2025-03-30 14:30] VITALS: BP 122/76
--- NOTE | 2025-03-30 14:57 | PCM.CR.ITP ---
Diagnosis General Information Admitting Diagnosis: S/P CABG Personal Learning Style:: Audio/Visual Barriers to Learning: No Barriers Stage of change r/t lifestyle modifications:: Contemplation Gave educational material for:: Treating Heart Disease, How The Heart Works, What it means to have Heart Disease, How Coronary Artery Disease is Diagnosed, Heart Procedures, What Heart Medications Do, Risk Factors & Modifications, Living an Active Life, Nutrition, Emotions & Heart Disease, Stress Management & Relaxation and Sleep Disorders & Heart Disease Education/Goals Cardiac Rehabilitation Goals Personal Goals: Initial Assessment: Improve energy level, Participate in home exercise program, Get back to work, or to resume activities faster and Improve muscle strength and endurance Scale for measuring improvement of personal goals Diagnosis & Disease Process Outcomes/Goals: Pt IDs own risk factors & lifestyle modifications by Session 10, Verbalizes symptoms of angina & response by session 3., Pt independently manages and Other Additional Outcomes/Goals: Plan/Interventions: Assist Pt to ID & engage in lifestyle modification to reduce CVD risk, Instruct on individual risk factors, Review symptoms of angina & emergency actions, Review secondary diagnosis & identify educational needs. and Other see comment 30 day Reassessments:: Not Met 30 day Reassessments:: Not Met 30 day Reassessments:: Not Met 30 day Reassessments:: Not Met Final Reassessments:: Not Met Safety Referral to Physical Therapy: No Referral to [facility] Case Management: No Fall Risk Assessed:: Yes Assistive Devices:: None Exercise - Initial Assessment Visit Date of Eval: 03/30/25 (initial eval ) Mets: Pre-: >3 METS for 30 minutes by discharge, >5 METS for 30 minutes by discharge, >7 METS for 30 minutes by discharge and Unable to meet goal due to: (see comment below) Physician Prescribed Exercise Modalities: Treadmill, Rower, Schwinn Airdyne AD-7, SciFit Stepper, SciFit Pro-II Ergometer and SciFit Lateral Projection Camera Operator Frequency: 3x/week for 12 weeks [36 sessions] Intensity: 60-80% of age predicted maximum heart rate reserve Duration: 30 - 45 minutes Current METSs:: 3 Target Heart Rate:: 92-115 Resting Blood Pressure: 122/76 EKG Type: NSR Outcomes & Goals Goals:: Verbalizes understanding of THR, RPE & goal METS by session 6, Documents in home exercise log/reports 30 min aerobic 5 day/wk by DC, Demonstrates accurate pulse taking by DC and Other additional outcome/goals: see below Intervention & Plan Exercise Program Goals: Instruct on personal THR & RPE, Instruct on MET level & personal MET goal, Show patient to take own pulse /validate performance until accurate, Instruct on home exercise and Other additional plan/int Physical Activity Home Exercise Physical Activity - Home Exercise: Safe Exercise, Warm-up, Self-monitoring, Cool-Down, Home Exercise > 30 min Daily and Sitting Time <3 hours/daily Outcomes & Goals Outcomes/Goals: Demonstrates correct Warm-up/exercise Cool-Down (S3) if = 2.5 METs, Verbalizes symptoms of exercise intolerance by Session 3 (S3), Demonstrate safe equipment use (S3) & follows exercise prescrition (6) and Other: See below Intervention & Plan Plan/Intervention: Instruct warm-up & cool-down if exercising at > 2 METs, Instruct on symptoms of exercise intolerance & actions to take, Instruct & monitor on saf, Assess intial functional capacity & safety risk and Other See below Nutrition - Initial Assessment Program Goals Nutrition Program Goals Patient has diagnosis of Hyperlipidemia (ICD E78)?: Yes Visit Date of Eval: 03/30/25 (initial eval ) Cholesterol/Lipids (Other Core Measures) Determine presence & major risk factors that modify LDL goal: Cigarette smoking, Hypertension or hypertensive medication, Low HDL cholesterol <40 mg/dL*, Family history of premature CHD in Male < 55 years: female <65 yearsFa and Age men > 45 years; women >/= 55 years Outcomes/Goals: Pt IDs own risk factors & lifestyle modifications by Session 10, Verbalizes symptoms of angina & response by session 3., Pt independently manages and Other Additional Outcomes/Goals: Intervention/Plan: Advocate for lipid panel cholesterol medication if applicable, Instruct on personal lipid levels & lipid goals/NCEP guidelines, Instruct on cholesterol and Other additional plan/int Diabetes (Other Core Measures) Diabetes Type: Not Applicable Weight Mgt (Other Care) Height: 5 ft 11 in Weight:: 228 lb BMI: 31.8 Diagnosis Overweight/Obesity BMI> 30% ICD-10 E66: Yes Diagnosis High BMI/Morbid Obesity BMI> 35% ICD-10 Z68: No Outcomes/Goals: Pt sets, maintains & shows weight loss goal & trend during rehab and Other additional outcomes/goals Intervention/Plan: Instruct on ideal BMI & set weight loss goal w/patient, Assist pt to ID & incorporate diet changes for weight loss by S9, Refer to Structured Weight Loss program as appropriate, Encourage goal of using 250-300dcal per session for weight loss and Other additional plan/interventions Healthy Eating Habits Will attend diet classes:: Yes Outcomes/Goals:: Consume diet rich in vegs,fruits,whole grain/high fiber,fish,lean meat, Limit sat/trans fats,cholesterol & added salts & sugars and Other additional outcome/goals: Intervention/Plan:: Assess current eating habits and Other Additional plan/interventions Education Gave educational materials for:: Signs & symptoms of hypoglycemia, Signs & symptoms of hyperglycemia, Relate diabetes to coronary artery disease and Healthy eating Core - Initial Assessment Visit Date of Eval: 03/30/25 (initial eval ) Medication Compliance Preventative Medication(s):: Aspirin, Statin/lipid and Beta roberto H/O mental health issues: depression, anxiety, or addiction?: No Doesn’t believe in the benefits of treatment?: No Believes medications are unnecessary or harmful?: No Has a concern about medication side effects?: No Expresses concern over the cost of medications?: No Outcomes/Goals: Verbalizes medications,desired effect & common side effects @ DC, Pt self-reports following medication regimen, Keeps card in wallet w/medications listed by DC and Other additional outcome/goals: Interventions/plans: Instruct on medication effects & side effects, Review medication list w/patient every two weeks, Instruct importance of taking meds as ordered & assist problem solving and Other additional Tobacco Use Tobacco Use: Non-smoker How long ago did you quit using tobacco products?: Less than 6 months ago Years Smokin (Pt has recently stopped smoking) Do you use smokeless tobacco?: No Interventions/plan: Instruct on effects of smoking & provide smoking cessation resource, Assist pt to set quit date & provide encouragement, Assist pt to develop strategies to achieve/maintain quit date, Assist pt w/nicotine replacement & medication for cessation success and Other additional plan/interventions Hypertension Hypertension Diagnosis:: Hypertension ICD-10 I10 Resting Blood Pressure:: 122/76 [employer] Hypertension Guidelines Outcomes/Goals: Able to verbalize/achieve optimal blood pressure <130/80, Incorporates diet changes & exercise for blood pressure control by DC and Other additional outcomes/goals Interventions/plan: Instruct on optimal blood pressure, hypertension & medications, Instruct on effects of sodium, alcohol, stress, exercise &hypertension and Other additional plan/interventions Tobacco Cessation Referral Education Schedule Given:: Yes Psychosocial - Initial Assess VIsit Date of Eval: 03/30/25 (initial eval ) History of previous Mental disease:: No Target Goals Target Goals Psychosocial Test Tool Used:: PHQ-9 Questionnaire phq-9 Severity See PHQ-9 Score: 2 Referral to Behavioral Health PS - Interventions: Yes: Attend Stress Management Classes Outcomes/Goals: See list Psychosocial Outcomes/Goals:: ID's personal stressors & 2 strategies to manage stress by discharge and Other Additional outcome/goals: Intervention/Plan: See List Interventions/Plan:: Assess stressors,coping strategies & signs of derpression on admission, Instruct/assist pt to develop coping & personal stress Mgt strategies, Refer to Behavioral Health if appropriate, Refer to Physician if appropriate, Instruct patient to recognize signs & symptoms of depression, Instruct patient to recog and Other additional plan/intervention Patient Health Questionnaire PHQ-9 Screening Initial Assessment: 1. Little interest or pleasure in doing things: Not at all 2. Feeling down, depressed, or hopeless: Not at all 3. Trouble falling or staying asleep, or sleeping too much: Not at all 4. Feeling tired or having little energy: Several days 5. Poor appetite or overeating: Not at all 6. Feeling bad about yourself -- or that you are a failure or have let yourself or your family down: Not at all 7. Trouble concentrating on things, such as reading the newspaper or watching television: Not at all 8. Moving or speaking so slowly that other people could have noticed. Or the opposite - being so fidgety or restless that you have been moving around a lot more than usual: Not at all 9. Thoughts that you would be better off , or of hurting yourself in some way: Not at all How difficult have these problems made it for you to do your work, take care of things at home, or get along with other people?: Not difficult at all Total Score: 1 MAYKEL-Q SV Test Statements CAD is a disease of the arteries in the heart: False Examples of risk factors for heart disease: True Angina is chest pain or discomfort: True The benefits of resistance training include: True Eating more meat and dairy products: False Anti-platelet medications such as aspirin are important: False The only effective way to manage stress: False An exercise warm-up slowly increases heart rate: True Prepared, processed foods usually have high sodium: True Depression is common after a heart attack: True The statin medications lower cholesterol: True To control blood pressure, lower the amount of sodium: True If someone gets chest discomfort during walking: False Transfats are partially hydrogenated vegetable oils: True Sleep apnea that is not treated increases the risk: False To control cholesterol, one should become a vegetarian: False Someone knows if he/she is exercising at the right level: I Don't Know Diabetes cannot be prevented with exercise & health eating: False Stress is a large risk for heart attack: True A diet that can help lower blood pressure is rich in: True Total Score Total Correct Responses: 18 Self-Efficacy 6-Item Scale Initial Assessment: We would like to know how confident you are in doing certain activities. Please select your confidence level for: Fatigue Select Number: 8 Physical Discomfort or Pain Select Number: 8 Emotional Distress Select Number: 10 Other Symptoms or Health Problems Select Number: 8 Different Tasks and Activities Select Number: 8 Medication Select Number: 8 Total Score:: 8 Nutrition Survey Nutrition Survey Instructions Scoring Instructions Nutrition Survey Initial: Have you lost >10 lbs over the past 2 months without trying?: Yes Are you following a special diet at home for diabetes, low fat, or low salt?: Yes Are you interested in meeting with a dietitian for help understanding your diet?: No Do you eat less than 3 meals a day?: No Do you eat fatty meats (mann, sausage, ribs, etc), fried foods, desserts, large amounts of salad dressings, margarine, butter, or cheese most days?: No Do you have food allergies? [Enter types in comment field]: No Do you eat in restaurants more than 3 times a week?: No Do you season food with salt, seasoning salt, or garlic salt?: No Do you used canned, boxed, frozen meals, or soups, seasoning packets?: No Total Score:: 2 Exercise - 30-day Assessment Physician Prescribed Exercise Modalities: Treadmill, RowerWillie AD-7, SciFit Stepper, SciFit Pro-II Ergometer and SciFit Lateral [place] Exercise - 60-day Assessment Physician Prescribed Exercise Modalities: Treadmill, RowerWilliene AD-7, SciFit Stepper, SciFit Pro-II Ergometer and SciFit Lateral Projection Camera Operator Exercise - 90-day Assessment Physician Prescribed Exercise Modalities: Treadmill, Rower, Schwinn Airdyne AD-7, SciFit Stepper, SciFit Pro-II Ergometer and SciFit Lateral [place] Exercise - Final/Discharge Physician Prescribed Exercise Modalities: Treadmill, Rower, Schwinn Airdyne AD-7, SciFit Stepper, SciFit Pro-II Ergometer and SciFit Lateral Projection Camera Operator Frequency: 3x/week for 12 weeks [36 sessions] Intensity: 60-80% of age predicted maximum heart rate reserve Current METSs:: 3 Target Heart Rate:: 92-115 Nutrition - 30-Day Assessment Weight Mgt (Other Care) Height: 5 ft 11 in Weight:: 228 lb BMI: 31.8 Nutrition - 60-Day Assessment Weight Mgt (Other Care) Height: 5 ft 11 in Weight:: 228 lb BMI: 31.8 Core - 30-Day Assessment Tobacco Use Years Smokin (Pt has recently stopped smoking) Core - Final Assessment Hypertension Resting Blood Pressure:: 122/76 [employer] Hypertension Guidelines Core - 60-Day Assessment Hypertension Resting Blood Pressure:: 122/76 [employer] Hypertension Guidelines Psychosocial - 30-Day Assess Target Goals Target Goals Referral to Behavioral Health PS - Interventions: Yes: Attend Stress Management Classes Psychosocial - 60-Day Assess Target Goals Target Goals Referral to Behavioral Health PS - Interventions: Yes: Attend Stress Management Classes Psychosocial - 90-Day Assess Target Goals Target Goals Referral to Behavioral Health PS - Interventions: Yes: Attend Stress Management Classes Psychosocial - Final Assessmen Target Goals Target Goals Psychosocial Test phq-9 Severity See PHQ-9 Score: 2 Referral to Behavioral Health PS - Interventions: Yes: Attend Stress Management Classes Nutrition - 90-Day Assessment Weight Mgt (Other Care) Height: 5 ft 11 in Weight:: 228 lb BMI: 31.8 Nutrition - Final Assessment Program Goals Patient has diagnosis of Hyperlipidemia (ICD E78)?: Yes Weight Mgt (Other Care) Height: 5 ft 11 in Weight:: 228 lb BMI: 31.8
[2025-03-30 15:07] VITALS: BP 122/76; BMI 31.8
== END | disposition home or self-care (01) ==
PROVIDERS: PCP Family Medicine; Referring Provider Thoracic Surgery (Cardiothoracic Vascular Surgery); Visit Provider Thoracic Surgery (Cardiothoracic Vascular Surgery)
DX: Z95.1 Presence of aortocoronary bypass graft (principal)

== ENCOUNTER 2025-04-01 17:02 | Emergency (ER) | payer MEDICARE, OTHER, SELFPAY ==
[2025-03-30 15:07] VITALS: BMI 31.8
[2025-04-01] VITALS (10 sets, daily range): BP systolic 91–131; BP diastolic 70–93; PULSE 65–113; RESP 13–20; TEMP 37; O2SAT 97–98; BMI 29.7
--- NOTE | 2025-04-01 17:27 | EKG12_ITS ---
Test Reason : CP Blood Pressure : */* mmHG Vent. Rate : 98 BPM Atrial Rate : 98 BPM P-R Int : 152 ms QRS Dur : 94 ms QT Int : 374 ms P-R-T Axes : 62 -26 61 degrees QTcB Int : 477 ms Normal sinus rhythm Normal ECG Confirmed by ARTHUR SHAW, MARBELLA ([id number]), business editor BLAINE HOWARD ([id number]) on 04/04/2025 8:33:32 AM Referred By: HAWK/MEAGHAN Confirmed By: MARBELLA GIBSON MD
--- NOTE | 2025-04-01 17:28 | EDS_ITS ---
HPI History of Present Illness Chief Complaint: Chest Pain Informant: patient Narrative Narrative: 69-year-old male was at rest when he started having nonpleuritic substernal chest discomfort about 2.5 hours ago radiating into his right axilla and upper arm. He had a CABG 1-2 months ago at [facility], so he took a couple of nitroglycerin which improved his symptoms, he now has no chest discomfort and just has the discomfort in his right axilla and upper arm. No other associated symptoms. He states this occurred about an hour after he broke down and "bummed a cigarette off of someone and smoked." He now regrets smoking. He denies any other drug or illicit substance use. He has been compliant with his medications which include aspirin and no other antiplatelet or anticoagulants. States otherwise has been doing well until this occurred, breathing well, his chest has not been bothering him with regards to the CABG scar/incision. [facility] Medical History Wears glasses Cancer History of steroid therapy Kidney stones High cholesterol Excessive bleeding Easy bruising Back pain History of diverticulitis Gastric reflux Former smoker Sleep apnea History of stress test Cardiology follow-up encounter History of heart attack Presence of stent in coronary artery (~05/23/09) Atherosclerotic heart disease of [place] coronary artery without angina pectoris Essential hypertension Old myocardial infarction Diverticulitis Arthritis Seasonal allergies Hemorrhoids Hx of squamous cell carcinoma of skin GO (obstructive sleep apnea) Hyperlipidemia CAD (coronary artery disease) Home Medications Medication Instructions Recorded Last Taken Type nitroglycerin 0.4 mg sublingual 0.4 mg sublingual Q5M PRN Chest 03/27/17 Unknown History tablet Pain pantoprazole 20 mg tablet,delayed 20 mg PO DAILY 02/09 Unknown History release aspirin 81 mg tablet,delayed 81 mg PO DAILY 08/13/21 1 10/23/20 History release (Adult Aspirin Regimen) acetaminophen 500 mg tablet 1,000 mg PO BID 02/18/22 U nknown History naproxen sodium 220 mg tablet 440 mg PO BID 02/18/22 U nknown History ezetimibe 10 mg tablet 5 mg (1/2 x 10 mg) PO .QOD # 45 tabs 09/11/22 Unknown Rx atorvastatin 10 mg tablet 5 mg (1/2 x 10 mg) PO .COMPL EX #45 04/22/23 Unknown Rx tabs Allergy/AdvReac Type Severity Reaction Status Date / Time Penicillins (PCN) Allergy Itching Verified 04/01/25 17:04 ciprofloxacin (From Cipro) AdvReac Intermediate Unknown Verified 04/01/25 17:04 rosuvastatin (From Crestor) AdvReac Other Verified 04/01/25 17:04 simvastatin (From Zocor) AdvReac Other Verified 04/01/25 17:04 Family History Father Hypertension CAD (coronary artery disease) Mother CAD (coronary artery disease) Brother Cancer Skin cancer- Outside of anus Surgical History (Updated 04/01/25 @ 23:[address] Vince Sanford MD) Hx of CABG History of coronary artery stent placement Hx of total hip arthroplasty History of colonoscopy (~2017) Presence of coronary angioplasty implant and graft (~05/23/09) Hx of shoulder surgery History of left heart catheterization Hx of knee surgery Social History household members: spouse housing: house Smoking Status: Former smoker second hand exposure: Yes alcohol intake: current alcohol intake frequency: holidays/special occasions only substance use type: does not use caffeine: Yes Type: carbonated beverages Number of servings: 1, coffee Number of servings: 2 and tea Number of servings: 1 what type of physical activity do you participate in: none frequency: does not exercise seatbelt use: always ROS ROS ED Constitutional Constitutional ED: Denies chills, fever(s) or sweats Eyes Eyes: Denies change in vision or diplopia ENT ENT ED: Denies rhinorrhea or sore throat Cardiovascular Cardiovascular: Reports as per HPI, chest pain and radiating jaw, neck or arm pain; Denies leg edema, lightheadedness, palpitations or syncope Respiratory/Chest Respiratory/Chest: Denies cough or dyspnea Gastrointestinal Gastrointestinal: Denies abdominal pain, diarrhea, nausea or vomiting Genitourinary Genitourinary ED: Denies dysuria or hematuria Musculoskeletal Musculoskeletal: Denies back pain or neck pain Integumentary Denies abscess or rash Neurologic Neurologic: Denies headache(s), paresthesias or weakness Psychiatric Psychiatric: Denies suicidal thoughts EXAM Physical Exam Const Vital Signs: 04/01/25 17:03 04/01/25 17:16 04/01/25 17:27 Temperature 98.6 F Temperature Source Oral Pulse Rate 113 H Respiratory Rate 20 H Respiratory Effort Normal Non-Labored Blood Pressure 117/79 Blood Pressure Mean 91 Pulse Ox 98 98 Oxygen Delivery Method Room Air Room Air 04/01/25 18:02 04/01/25 19:14 04/01/25 20:00 Temperature Temperature Source Pulse Rate 83 83 76 Respiratory Rate 13 13 15 Respiratory Effort Blood Pressure 117/82 H 116/83 H 123/79 H Blood Pressure Mean 93 94 93 Pulse Ox 97 97 97 Oxygen Delivery Method Room Air Room Air 04/01/25 21:00 04/01/25 22:00 04/01/25 23:00 Temperature Temperature Source Pulse Rate 90 84 65 Respiratory Rate 16 13 14 Respiratory Effort Blood Pressure 115/74 127/93 H 131/90 H Blood Pressure Mean 87 104 103 Pulse Ox 97 98 97 Oxygen Delivery Method Room Air Room Air Room Air 04/01/25 23:33 Temperature Temperature Source Pulse Rate 74 Respiratory Rate Respiratory Effort Blood Pressure 129/89 H Blood Pressure Mean Pulse Ox Oxygen Delivery Method Positive well nourished and well developed General Appearance ED: well developed and NAD HEENT Reports moist mucous membranes normocephalic and atraumatic Eyes PERRL and EOMs intact bilaterally Neck full ROM and supple Chest Wall Chest Narrative: Well-healing midline chest CABG incision and epigastric wire sites. Resp normal respiratory effort and clear to auscultation bilaterally Cardio regular rate, regular rhythm and no murmurs Rate: Negative for tachycardic Peripheral Pulses: pulses 2+ throughout GI non-tender and non-distended Auscultation: normoactive bowel sounds Palpation: soft Back/Spine no CVA tenderness General Back: other FROM Extremity normal to inspection General Extremety ED: Negative for edema, pulses abnormal or tenderness General Extremity: Negative for edema or pulses abnormal Neuro oriented x3, CN's II-XII intact bilaterally and no sensory deficits noted Sensorium / Orientation: awake and alert Motor Exam: strength 5/5 throughout Skin no rashes or lesions noted and no wounds Heart Score History: Highly Suspicious ECG: Normal Age: >/= 65 years Risk Factors: >/= 3 Risk Factors or History of CAD Troponin: >1 - <3 Normal Limit Score: 7 MDM MDM MDM Narrative Medical decision making narrative: Patient without chest discomfort at this time, and his EKG appears unremarkable. Obtained a 1 view chest x-ray which is normal on my interpretation, and sequential troponin measurements as well as renal function, blood counts. All his labs are normal except for his troponins, which were nonspecifically elevated at 36, at 2 hours 41 and at 4 hours 53. Checked on the patient multiple times during all of this, his chest and axilla/right upper extremity discomfort is all completely resolved and he feels good. His vitals are normal. I think that he should be admitted for further testing. I am concerned about the symptoms. Does not sound like a pulmonary embolus I do not think he needs CT angiography of the chest right now. He and his asked that I discussed with his cardiothoracic surgeon who happened to be on-call at [facility], Dr. Kenny. He advised that they would be happy to take the patient down there, but it would also be reasonable for us to admit him for cardiology consult here. Discussed with the patient and his family, as they see Dr. Arias in [place] for cardiology although he just sees him as an outpatient. Under the circumstances and recently having surgery and studies at [facility], the patient prefers to go there. He was given Lovenox 1 mg/kg as well as 2 baby aspirin, he took a baby aspirin earlier this morning. He received a bed pretty quickly, accepted by the C[facility]. While waiting for transport, he developed RUE discomfort again. I repeated EKG, on my interpretation it is unchanged compared with his old/prior. Given another nitroglycerin and he had improvement. He is clinically and hemodynamically stable at this time. Awaiting transport. History & Record Review Discussion w/independent historian: Patient and Significant other Lab Data Attestation: I reviewed the patient's lab results. Labs: Laboratory Results - last 24 hr 04/01/25 04/01/25 04/01/25 17:08 19:10 21:08 WBC 10.9 RBC 4.80 Hgb 14.9 Hct 44.1 MCV 91.9 MCH 31.0 MCHC 33.8 RDW Std Deviation 44.5 H RDW Coeff of Lizette 13.1 Plt Count 355 MPV 8.2 Immature Gran % (Auto) 0.600 Neut % (Auto) 58.0 Lymph % (Auto) 20.7 [place] % (Auto) 11.6 H Eos % (Auto) 7.6 H Baso % (Auto) 1.5 H Absolute Neuts (auto) 6.3 Absolute Lymphs (auto) 2.25 Nucleated RBC % 0 Sodium 141 Potassium 4.1 Chloride 103 Carbon Dioxide 22.4 Anion Gap 16 H BUN 16 Creatinine 1.19 Estim Creat Clear Calc 71.42 Est GFR (MDRD) Non-Af 67 BUN/Creatinine Ratio 13.2 Glucose 103 H Calcium 9.6 Troponin T High Sens 36 H Troponin T Hi Sens 2 Hr 41 H Troponin T Hi Sens 4Hr 53 H Radiography Diagnostic Testing: Clinical Impression(s) from Imaging Studies Chest X-Ray 04/01/25 17:40 IMPRESSION: NO ACUTE FINDINGS. Reading Location: [id number] Rhythm Strip Rhythm Strip: Sinus Rhythm Rate: 98 Ectopy: None EKG Initial EKG: Attestation: I personally reviewed and interpreted this EKG as follows: Interpretation: Sinus Rhythm and No Acute Injury Pattern Comments: Nml intervals, leftward axis otherwise nml EKG Follow-up EKG: Attestation: I personally reviewed and interpreted this EKG as follows: (During chest pain recurrence) Interpretation: Sinus Rhythm and No Acute Injury Pattern Comments: Nml intervals, leftward axis otherwise nml EKG Prior: Unchanged Management Discussion w/another healthcare provider: Business Analyst [employer] (Cardiothoracic surgery) Discharge Plan Triage Chief Complaint: Chest Pain ED Provider: Vince Sanford Dx/Rx/DC Orders Clinical Impression: Chest pain, Elevated troponin, Status post coronary artery bypass graft Prescriptions: No Action pantoprazole 20 mg tablet,delayed release (DR/EC) 20 mg PO DAILY Patient Comments: take 1 tablet by mouth once daily aspirin [Adult Aspirin Regimen] 81 mg tablet,delayed release (DR/EC) 81 mg PO DAILY acetaminophen 500 mg tablet 1,000 mg PO BID nitroglycerin 0.4 MG tablet 0.4 mg SUBLINGUAL Q5M PRN (Reason: Chest Pain) naproxen sodium 220 mg tablet 440 mg PO BID ezetimibe 10 mg tablet 5 mg PO .QOD Qty: 45 3RF atorvastatin 10 mg tablet 5 mg PO .COMPLEX Qty: 45 3RF Rx Instructions: 5 mg PO every other day; Primary Care Provider: Nicolás Hernandez: Nicolás Hernandez, [Primary Care Provider] - Print Language: Chilean
--- NOTE | 2025-04-01 17:40 | RAD_ITS ---
PROCEDURE: CHEST PA AND LATERAL 04/01/2025 REASON FOR EXAM: CHEST PAIN TECHNIQUE: CHEST PA AND LATERAL COMPARISON: 12/30/2023. FINDINGS: Prior sternotomy. Left shoulder arthroplasty. The heart is enlarged. The lungs are clear. No acute osseous abnormalities. RAD/Chest PA and Lateral IMPRESSION: NO ACUTE FINDINGS. Reading Location: [id number]
[2025-04-01 17:44] LABS: Hematocrit 44.1 % (40-54); Hemoglobin 14.9 g/dL (13.0-16.5); Immature Granulocytes Count 0.070 X10^3/uL (0.0-0.0); Mean Corp Hgb Conc 33.8 g/dL (32-36); Mean Corpuscular Volume 91.9 fL (80-94); Mean Platelet Vol. 8.2 fl (6.2-12.0); NRBC Flagged by Analyzer 0 % (0-5); Platelet Count 355 K/mm3 (150-450); RBC Distribution Width CV 13.1 % (11.6-14.6); RBC Distribution Width SD 44.5 fl (35.1-43.9); Red Blood Count 4.80 M/mm3 (4.6-6.2); White Blood Count 10.9 K/mm3 (4.4-11.0)
[2025-04-01 18:08] LABS: Anion Gap 16 (5-15); BUN 16 mg/dL (4-19); BUN/Creat Ratio 13.2 RATIO (10-20); Calcium,Total 9.6 mg/dL (7.6-11.0); Carbon Dioxide 22.4 mmol/L (21.0-32.0); Chloride 103 mmol/L (98-108); Estimated Creatinine Clearance 71.42 ml/min (50-250); Glucose 103 mg/dL (70-99); Potassium 4.1 mmol/L (3.3-5.1); Troponin T High Sensitivity 36 ng/L (<=22)
[2025-04-01 20:10] LABS: Troponin T High Sens 2 HR 41 ng/L (<=22)
[2025-04-01 21:50] LABS: Troponin T High Sens 4 HR 53 ng/L (<=22)
--- NOTE | 2025-04-01 23:25 | EKG12_ITS ---
Test Reason : REPEAT CP Blood Pressure : */* mmHG Vent. Rate : 78 BPM Atrial Rate : 78 BPM P-R Int : 168 ms QRS Dur : 94 ms QT Int : 416 ms P-R-T Axes : 18 -30 74 degrees QTcB Int : 474 ms Normal sinus rhythm Left axis deviation Abnormal ECG Confirmed by MARBELLA GIBSON MD ([id number]), assignment editor BLAINE HOWARD ([id number]) on 04/04/2025 8:33:44 AM Referred By: MEAGHAN Confirmed By: MARBELLA GIBSON MD
[2025-04-01] MEDS: Nitroglycerin SL (ED/IMG/CATH) 0.4 MG TABLET SL (23:33)
[2025-04-02] VITALS: BP 91/70; PULSE 86; RESP 21; O2SAT 96
[2025-04-02 00:06] VITALS: BP 91/70; PULSE 86; RESP 21; TEMP 36.6; O2SAT 96
== END 2025-04-02 00:57 | disposition short-term general hospital (02) ==
LOC: ED 17:55
PROVIDERS: Emergency Provider Emergency Medicine; PCP Family Medicine; Visit Provider Emergency Medicine
DX: R07.9 Chest pain, unspecified (principal); I25.10 Atherosclerotic heart disease of native coronary artery without angina pectoris; E78.00 Pure hypercholesterolemia, unspecified; I10 Essential (primary) hypertension; Z95.1 Presence of aortocoronary bypass graft; R79.89 Other specified abnormal findings of blood chemistry; Z87.891 Personal history of nicotine dependence; Z95.5 Presence of coronary angioplasty implant and graft; I25.2 Old myocardial infarction; Z85.828 Personal history of other malignant neoplasm of skin; K21.9 Gastro-esophageal reflux disease without esophagitis; Z96.649 Presence of unspecified artificial hip joint
CPT/HCPCS: 71046; 80048; 84484; 85025; 93005; 96372; 99285; A4216

== ENCOUNTER 2025-05-06 09:15 | Outpatient (RCR) | payer MEDICARE, OTHER, SELFPAY ==
[2025-03-30 15:07] VITALS: BMI 31.8
--- NOTE | 2025-04-26 08:12 | PCM.CR.ITP ---
Exercise - Initial Assessment Visit Session #:: 6 Physician Prescribed Exercise Modalities: Treadmill, Rower, Schwinn Airdyne AD-7, SciFit Stepper, SciFit Pro-II Ergometer and SciFit Lateral [place] Nutrition - Initial Assessment Weight Mgt (Other Care) Height: 5 ft 11 in Weight:: 216 lb BMI: 30.1 BMI (Report if calculated above): 30 Psychosocial - Initial Assess Target Goals Target Goals Referral to Behavioral Health PS - Interventions: Yes: Attend Stress Management Classes Patient Health Questionnaire PHQ-9 Screening 30-Day Re-eval Assessment: 1. Little interest or pleasure in doing things: Not at all 2. Feeling down, depressed, or hopeless: Not at all 3. Trouble falling or staying asleep, or sleeping too much: Not at all 4. Feeling tired or having little energy: Several days 5. Poor appetite or overeating: Not at all 6. Feeling bad about yourself -- or that you are a failure or have let yourself or your family down: Not at all 7. Trouble concentrating on things, such as reading the newspaper or watching television: Not at all 8. Moving or speaking so slowly that other people could have noticed. Or the opposite - being so fidgety or restless that you have been moving around a lot more than usual: Not at all 9. Thoughts that you would be better off , or of hurting yourself in some way: Not at all How difficult have these problems made it for you to do your work, take care of things at home, or get along with other people?: Not difficult at all Total Score: 1 Self-Efficacy 6-Item Scale 30-Day Re-eval Assessment: We would like to know how confident you are in doing certain activities. Please select your confidence level for: Fatigue Select Number: 8 Physical Discomfort or Pain Select Number: 8 Emotional Distress Select Number: 10 Other Symptoms or Health Problems Select Number: 8 Different Tasks and Activities Select Number: 8 Medication Select Number: 8 Total Score:: 8 Nutrition Survey Nutrition Survey Instructions Scoring Instructions Exercise - 30-day Assessment Visit Date of Eval: 04/26/25 Session #:: 6 Physician Prescribed Exercise Modalities: Treadmill, Rower, Schwinn Airdyne AD-7, SciFit Stepper, SciFit Pro-II Ergometer and SciFit Lateral Demand Planning Manager Frequency: 3x/week for 12 weeks [36 sessions] Intensity: 60-80% of age predicted maximum heart rate reserve Duration: 30 - 45 minutes METs - Progression 0.5-1.0 weekly:: 0.5-1 Current METSs:: 4 Target Heart Rate:: 92-115 Target RPE 12-16:: 12-16 Current RPE:: 13 Maximum Excercise HR:: 122 Resting Blood Pressure: 134/78 Maximum Exercise Blood Pressure: 128/80 EKG Type: NSR to ST with rare pac/pvc Current Physical Activity or Exercising minutes: 30-45 Outcomes & Goals Goals:: Verbalizes understanding of THR, RPE & goal METS by session 6, Documents in home exercise log/reports 30 min aerobic 5 day/wk by DC and Demonstrates accurate pulse taking by DC Intervention & Plan Exercise Program Goals: Instruct on personal THR & RPE, Instruct on MET level & personal MET goal, Show patient to take own pulse /validate performance until accurate and Instruct on home exercise 30-day Reassessments 30 day Reassessments:: Progressing Reassessment Notes & Comments:: Pt instructed on personal MET goal and continues to progress each week. Physical Activity Home Exercise Physical Activity - Home Exercise: Safe Exercise, Warm-up, Self-monitoring, Cool-Down, Home Exercise > 30 min Daily and Sitting Time <3 hours/daily Outcomes & Goals Outcomes/Goals: Demonstrates correct Warm-up/exercise Cool-Down (S3) if = 2.5 METs, Verbalizes symptoms of exercise intolerance by Session 3 (S3) and Demonstrate safe equipment use (S3) & follows exercise prescrition (6) Intervention & Plan Plan/Intervention: Instruct warm-up & cool-down if exercising at > 2 METs, Instruct on symptoms of exercise intolerance & actions to take, Instruct & monitor on saf and Assess intial functional capacity & safety risk 30-day Reassessments 30 day Reassessments:: Progressing Reassessment Notes & Comments:: Pt instructed on proper warm up and cool down for exercise. Pt completes both with minimal direction. Exercise - 60-day Assessment Physician Prescribed Exercise Modalities: Treadmill, Rower, Schwinn Airdyne AD-7, SciFit Stepper, SciFit Pro-II Ergometer and SciFit Lateral Demand Planning Manager Exercise - 90-day Assessment Physician Prescribed Exercise Modalities: Treadmill, Rower, Schwinn Airdyne AD-7, SciFit Stepper, SciFit Pro-II Ergometer and SciFit Lateral Demand Planning Manager Exercise - Final/Discharge Physician Prescribed Exercise Modalities: Treadmill, RowerWillie AD-7, SciFit Stepper, SciFit Pro-II Ergometer and SciFit Lateral Demand Planning Manager Nutrition - 30-Day Assessment Program Goals Nutrition Program Goals Patient has diagnosis of Hyperlipidemia (ICD E78)?: Yes Visit Date of Eval: 04/26/25 Session #:: 6 Cholesterol/Lipids (Other Core Measures) Triglycerides (mg/dL): 358 Total Cholesterol (mg/dL): 196 LDL Cholesterol (mg/dL): 87 HDL Cholesterol (mg/dL): 38 Lipid Medication: atorvastatin 20mg daily Determine presence & major risk factors that modify LDL goal: Cigarette smoking, Hypertension or hypertensive medication, Low HDL cholesterol <40 mg/dL* and Age men > 45 years; women >/= 55 years Outcomes/Goals: Pt IDs own risk factors & lifestyle modifications by Session 10, Verbalizes symptoms of angina & response by session 3. and Pt independently manages Intervention/Plan: Advocate for lipid panel cholesterol medication if applicable, Instruct on personal lipid levels & lipid goals/NCEP guidelines and Instruct on cholesterol Referral to dietitian:: Yes 30-day Reassessments:: Progressing Diabetes (Other Core Measures) Diabetes Type: Not Applicable Weight Mgt (Other Care) Height: 5 ft 11 in Weight:: 216 lb BMI: 30.1 BMI (Report if calculated above): 30 Diagnosis Overweight/Obesity BMI> 30% ICD-10 E66: No Diagnosis High BMI/Morbid Obesity BMI> 35% ICD-10 Z68: No Outcomes/Goals: Pt sets, maintains & shows weight loss goal & trend during rehab Intervention/Plan: Instruct on ideal BMI & set weight loss goal w/patient, Assist pt to ID & incorporate diet changes for weight loss by S9, Refer to Structured Weight Loss program as appropriate and Encourage goal of using 250-300dcal per session for weight loss 30 day Reassessments:: Progressing Reassessment Notes & Comments:: Pt currently at ideal BMI and continues to track weight weekly in class. Healthy Eating Habits Will attend diet classes:: Yes Outcomes/Goals:: Consume diet rich in vegs,fruits,whole grain/high fiber,fish,lean meat and Limit sat/trans fats,cholesterol & added salts & sugars Intervention/Plan:: Assess current eating habits 30-day Reassessments:: Progressing Reassessment Notes & Comments:: Pt to attend diet classes. Education Gave educational materials for:: Signs & symptoms of hypoglycemia, Signs & symptoms of hyperglycemia, Relate diabetes to coronary artery disease and Healthy eating Nutrition - 60-Day Assessment Weight Mgt (Other Care) Height: 5 ft 11 in Weight:: 216 lb BMI: 30.1 BMI (Report if calculated above): 30 Core - 30-Day Assessment Visit Date of Eval: 04/26/25 Session #:: 6 Medication Compliance Preventative Medication(s):: Aspirin, Statin/lipid and Beta roberto H/O mental health issues: depression, anxiety, or addiction?: No Doesn?t believe in the benefits of treatment?: No Believes medications are unnecessary or harmful?: No Has a concern about medication side effects?: No Expresses concern over the cost of medications?: No Outcomes/Goals: Verbalizes medications,desired effect & common side effects @ DC, Pt self-reports following medication regimen and Keeps card in wallet w/medications listed by DC Interventions/plans: Instruct on medication effects & side effects, Review medication list w/patient every two weeks and Instruct importance of taking meds as ordered & assist problem solving 30-day Reassessments:: Progressing Reassessment Notes & Comments:: Pt verbalizes importance of following medication regimen and taking medications as prescribed. Tobacco Use Tobacco Use: Non-smoker Hypertension Hypertension Diagnosis:: Hypertension ICD-10 I10 Resting Blood Pressure:: 134/78 [place] [employer] Hypertension Guidelines Peak Exercise Blood Pressure:: 128/80 Outcomes/Goals: Able to verbalize/achieve optimal blood pressure <130/80 and Incorporates diet changes & exercise for blood pressure control by DC Interventions/plan: Instruct on optimal blood pressure, hypertension & medications and Instruct on effects of sodium, alcohol, stress, exercise &hypertension 30 day Reassessments:: Progressing Reassessment Notes & Comments:: Pt taking antihypertensive medications as prescribed, pt encouraged to maintain low sodium diet, pt able to verbalize optimal BP is <130/80 Tobacco Cessation Referral Education Schedule Given:: Yes Psychosocial - 30-Day Assess VIsit Date of Eval: 04/26/25 Session #:: 6 History of previous Mental disease:: No History of Emotional Disorders: None Target Goals Target Goals Psychosocial Test Tool Used:: PHQ-9 Questionnaire phq-9 Severity See PHQ-9 Score: 1 Total Score:: 1 Referral to Behavioral Health PS - Interventions: Yes: Attend Stress Management Classes Outcomes/Goals: See list Psychosocial Outcomes/Goals:: ID's personal stressors & 2 strategies to manage stress by discharge Intervention/Plan: See List Interventions/Plan:: Assess stressors,coping strategies & signs of derpression on admission, Instruct/assist pt to develop coping & personal stress Mgt strategies, Refer to Behavioral Health if appropriate, Refer to Physician if appropriate and Instruct patient to recognize signs & symptoms of depression 30-day Reassessments: 30 day Reassessments:: Met Reassessment Notes & Comments:: Pt denies any psychosocial needs at this time. Pt to attend stress management classes. Psychosocial - 60-Day Assess Target Goals Target Goals Referral to Behavioral Health PS - Interventions: Yes: Attend Stress Management Classes Outcomes/Goals: See list Psychosocial Outcomes/Goals:: ID's personal stressors & 2 strategies to manage stress by discharge Psychosocial - 90-Day Assess Target Goals Target Goals Referral to Behavioral Health PS - Interventions: Yes: Attend Stress Management Classes Psychosocial - Final Assessmen Target Goals Target Goals Referral to Behavioral Health PS - Interventions: Yes: Attend Stress Management Classes Nutrition - 90-Day Assessment Weight Mgt (Other Care) Height: 5 ft 11 in Weight:: 216 lb BMI: 30.1 BMI (Report if calculated above): 30 Nutrition - Final Assessment Weight Mgt (Other Care) Height: 5 ft 11 in Weight:: 216 lb BMI: 30.1 BMI (Report if calculated above): 30
[2025-04-26 08:43] VITALS: BP 134/78; BMI 30.1
== END 2025-05-08 23:59 ==
LOC: CR 09:15
PROVIDERS: PCP Family Medicine; Referring Provider Thoracic Surgery (Cardiothoracic Vascular Surgery); Visit Provider Thoracic Surgery (Cardiothoracic Vascular Surgery)
DX: Z95.1 Presence of aortocoronary bypass graft (principal)
CPT/HCPCS: 93798

== ENCOUNTER 2025-06-06 09:15 | Outpatient (RCR) | payer MEDICARE, OTHER, SELFPAY ==
[2025-04-26 08:43] VITALS: BMI 30.1
--- NOTE | 2025-05-23 09:38 | PCM.CR.ITP ---
Exercise - Initial Assessment Physician Prescribed Exercise Modalities: Treadmill, Schwinn Airdyne AD-7 and SciFit Stepper Nutrition - Initial Assessment Weight Mgt (Other Care) Height: 5 ft 11 in Weight:: 222 lb BMI: 30.9 Core - Initial Assessment Hypertension Resting Blood Pressure:: 118/78 [place] [employer] Hypertension Guidelines Psychosocial - Initial Assess Referral to Behavioral Health PS - Interventions: Yes: Attend Stress Management Classes Patient Health Questionnaire PHQ-9 Screening 60-Day Re-eval Assessment: 1. Little interest or pleasure in doing things: Not at all 2. Feeling down, depressed, or hopeless: Not at all 3. Trouble falling or staying asleep, or sleeping too much: Not at all 4. Feeling tired or having little energy: More than half the days 5. Poor appetite or overeating: Not at all 6. Feeling bad about yourself -- or that you are a failure or have let yourself or your family down: Not at all 7. Trouble concentrating on things, such as reading the newspaper or watching television: Not at all 8. Moving or speaking so slowly that other people could have noticed. Or the opposite - being so fidgety or restless that you have been moving around a lot more than usual: Not at all 9. Thoughts that you would be better off , or of hurting yourself in some way: Not at all How difficult have these problems made it for you to do your work, take care of things at home, or get along with other people?: Not difficult at all Total Score: 2 Self-Efficacy 6-Item Scale 60-Day Re-eval Assessment: We would like to know how confident you are in doing certain activities. Please select your confidence level for: Fatigue Select Number: 8 Physical Discomfort or Pain Select Number: 8 Emotional Distress Select Number: 10 Other Symptoms or Health Problems Select Number: 8 Different Tasks and Activities Select Number: 8 Medication Select Number: 8 Total Score:: 8 Exercise - 30-day Assessment Physician Prescribed Exercise Modalities: Treadmill, Schwinn Airdyne AD-7 and SciFit Stepper Exercise - 60-day Assessment Visit Date of Eval: 05/23/25 Session #:: 14 Physician Prescribed Exercise Modalities: Treadmill, Schwinn Airdyne AD-7 and SciFit Stepper Frequency: 3x/week for 12 weeks [36 sessions] Intensity: 60-80% of age predicted maximum heart rate reserve Duration: 30 - 45 minutes Current METSs:: 4.4 Target Heart Rate:: 92-115 Current RPE:: 12-13 Maximum Excercise HR:: 125 Resting Blood Pressure: 134/84 Maximum Exercise Blood Pressure: 140/72 EKG Type: NSR to ST w/ rare PVC Outcomes & Goals Goals:: Verbalizes understanding of THR, RPE & goal METS by session 6, Documents in home exercise log/reports 30 min aerobic 5 day/wk by DC, Demonstrates accurate pulse taking by DC and Other additional outcome/goals: see below Intervention & Plan Exercise Program Goals: Instruct on personal THR & RPE, Instruct on MET level & personal MET goal, Show patient to take own pulse /validate performance until accurate, Instruct on home exercise and Other additional plan/int Physical Activity Home Exercise Physical Activity - Home Exercise: Safe Exercise, Warm-up, Self-monitoring, Cool-Down, Home Exercise > 30 min Daily and Sitting Time <3 hours/daily Outcomes & Goals Outcomes/Goals: Demonstrates correct Warm-up/exercise Cool-Down (S3) if = 2.5 METs, Verbalizes symptoms of exercise intolerance by Session 3 (S3), Demonstrate safe equipment use (S3) & follows exercise prescrition (6) and Other: See below Intervention & Plan Plan/Intervention: Instruct warm-up & cool-down if exercising at > 2 METs, Instruct on symptoms of exercise intolerance & actions to take, Instruct & monitor on saf, Assess intial functional capacity & safety risk and Other See below 30-day Reassessments 30 day Reassessments:: Progressing Reassessment Notes & Comments:: Proper warm up and cool down reviewed with pt. Pt demonstrates understanding in his daily sessions. Exercise - 90-day Assessment Physician Prescribed Exercise Modalities: Treadmill, Schwinn Airdyne AD-7 and SciFit Stepper Exercise - Final/Discharge Physician Prescribed Exercise Modalities: Treadmill, Schwinn Airdyne AD-7 and SciFit Stepper Nutrition - 30-Day Assessment Weight Mgt (Other Care) Height: 5 ft 11 in Weight:: 222 lb BMI: 30.9 Nutrition - 60-Day Assessment Program Goals Nutrition Program Goals Patient has diagnosis of Hyperlipidemia (ICD E78)?: Yes Visit Date of Eval: 05/23/25 Session #:: 14 (Nutrition survey score 2) Cholesterol/Lipids (Other Core Measures) Determine presence & major risk factors that modify LDL goal: Cigarette smoking, Hypertension or hypertensive medication, Low HDL cholesterol <40 mg/dL*, Family history of premature CHD in Male < 55 years: female <65 yearsFa and Age men > 45 years; women >/= 55 years Outcomes/Goals: Pt IDs own risk factors & lifestyle modifications by Session 10, Verbalizes symptoms of angina & response by session 3., Pt independently manages and Other Additional Outcomes/Goals: Intervention/Plan: Advocate for lipid panel cholesterol medication if applicable, Instruct on personal lipid levels & lipid goals/NCEP guidelines, Instruct on cholesterol and Other additional plan/int Referral to dietitian:: Yes Diabetes (Other Core Measures) Diabetes Type: Not Applicable Weight Mgt (Other Care) Height: 5 ft 11 in Weight:: 222 lb BMI: 30.9 Diagnosis Overweight/Obesity BMI> 30% ICD-10 E66: Yes Diagnosis High BMI/Morbid Obesity BMI> 35% ICD-10 Z68: No Outcomes/Goals: Pt sets, maintains & shows weight loss goal & trend during rehab and Other additional outcomes/goals Intervention/Plan: Instruct on ideal BMI & set weight loss goal w/patient, Assist pt to ID & incorporate diet changes for weight loss by S9, Refer to Structured Weight Loss program as appropriate, Encourage goal of using 250-300dcal per session for weight loss and Other additional plan/interventions 30 day Reassessments:: Progressing Reassessment Notes & Comments:: Pt is scheduled to attend nutrition class. Heart healthy low sodium diet encouraged. Healthy Eating Habits Will attend diet classes:: Yes Outcomes/Goals:: Consume diet rich in vegs,fruits,whole grain/high fiber,fish,lean meat, Limit sat/trans fats,cholesterol & added salts & sugars and Other additional outcome/goals: Intervention/Plan:: Assess current eating habits and Other Additional plan/interventions 30-day Reassessments:: Progressing Reassessment Notes & Comments:: Pt is scheduled to attend nutrition class. Heart healthy low sodium diet encouraged. Education Gave educational materials for:: Signs & symptoms of hypoglycemia, Signs & symptoms of hyperglycemia, Relate diabetes to coronary artery disease and Healthy eating Core - Final Assessment Hypertension Resting Blood Pressure:: 118/78 [place] [employer] Hypertension Guidelines Core - 60-Day Assessment Visit Date of Eval: 05/23/25 Session #:: 14 Medication Compliance Preventative Medication(s):: Aspirin, Statin/lipid and Beta roberto H/O mental health issues: depression, anxiety, or addiction?: No Doesn?t believe in the benefits of treatment?: No Believes medications are unnecessary or harmful?: No Has a concern about medication side effects?: No Expresses concern over the cost of medications?: No Outcomes/Goals: Verbalizes medications,desired effect & common side effects @ DC, Pt self-reports following medication regimen, Keeps card in wallet w/medications listed by DC and Other additional outcome/goals: Interventions/plans: Instruct on medication effects & side effects, Review medication list w/patient every two weeks, Instruct importance of taking meds as ordered & assist problem solving and Other additional 30-day Reassessments:: Progressing Reassessment Notes & Comments:: 04/18/25 Pt taken off Plavix and put on prasugrel 10 mg QD and metoprolol succinate 25 mg QD Tobacco Use Tobacco Use: Non-smoker Hypertension Hypertension Diagnosis:: Hypertension ICD-10 I10 Resting Blood Pressure:: 134/84 Resting Blood Pressure:: 118/78 [place] [employer] Hypertension Guidelines Peak Exercise Blood Pressure:: 140/72 Outcomes/Goals: Able to verbalize/achieve optimal blood pressure <130/80, Incorporates diet changes & exercise for blood pressure control by DC and Other additional outcomes/goals Interventions/plan: Instruct on optimal blood pressure, hypertension & medications, Instruct on effects of sodium, alcohol, stress, exercise &hypertension and Other additional plan/interventions 30 day Reassessments:: Progressing Reassessment Notes & Comments:: Pt's BP's are within AHA normal limits on most days. Weigh loss and a low sodium diet encouraged. Will continue to monitor and report to pt's physician if necessary. Tobacco Cessation Referral Smoking Cessation Referral:: No Individual Education/Counseling:: No Education Schedule Given:: Yes Psychosocial - 30-Day Assess Referral to Behavioral Health PS - Interventions: Yes: Attend Stress Management Classes Outcomes/Goals: See list Psychosocial Outcomes/Goals:: ID's personal stressors & 2 strategies to manage stress by discharge Psychosocial - 60-Day Assess VIsit Date of Eval: 05/23/25 Session #:: 14 History of previous Mental disease:: No Psychosocial Test Tool Used:: PHQ-9 Questionnaire phq-9 Severity See PHQ-9 Score: 2 Referral to Behavioral Health PS - Interventions: Yes: Attend Stress Management Classes Outcomes/Goals: See list Psychosocial Outcomes/Goals:: ID's personal stressors & 2 strategies to manage stress by discharge Intervention/Plan: See List Interventions/Plan:: Assess stressors,coping strategies & signs of derpression on admission, Instruct/assist pt to develop coping & personal stress Mgt strategies, Refer to Behavioral Health if appropriate, Refer to Physician if appropriate, Instruct patient to recognize signs & symptoms of depression and Instruct patient to recog 30-day Reassessments: 30 day Reassessments:: Progressing Reassessment Notes & Comments:: Pt denies any psychosocial issues at this time. Will continue to monitor. Psychosocial - 90-Day Assess Referral to Behavioral Health PS - Interventions: Yes: Attend Stress Management Classes Psychosocial - Final Assessmen Referral to Behavioral Health PS - Interventions: Yes: Attend Stress Management Classes Nutrition - 90-Day Assessment Weight Mgt (Other Care) Height: 5 ft 11 in Weight:: 222 lb BMI: 30.9 Nutrition - Final Assessment Weight Mgt (Other Care) Height: 5 ft 11 in Weight:: 222 lb BMI: 30.9
[2025-05-23 09:56] VITALS: BP 118/78; BP 134/84; BMI 30.9
== END 2025-06-07 23:59 ==
LOC: CR 09:15
PROVIDERS: PCP Family Medicine; Referring Provider Thoracic Surgery (Cardiothoracic Vascular Surgery); Visit Provider Thoracic Surgery (Cardiothoracic Vascular Surgery)
DX: Z95.1 Presence of aortocoronary bypass graft (principal)
CPT/HCPCS: 93798

== ENCOUNTER → 2025-06-09 | Outpatient (CLI) | payer MEDICARE, OTHER, SELFPAY ==
[2025-05-23 09:56] VITALS: BMI 30.9
--- OUTSIDE RECORDS SUMMARY | 2025-06-10 00:53 | XMS RPT_ITS | CCD ---
Author Organization [facility] Care Team Providers Care Scaffold Erector Name Role Phone JAMES, DR RIMA Mancuso Attending Unavaila ble JAMES, DR RIMA Mancuso Primary Care Unavaila ble JAMES, DR RIMA Mancuso Admitting Unavaila ble JAMES, DR RIMA Mancuso Attending Unavaila ble JAMES, DR RIMA Mancuso Primary Care Unavaila ble JAMES, DR RMIA Mancuso Admitting Unavaila ble Tracy ALDANA MD, Augustine Romero Primary Care Provider Pratibha Ronquillo DO Primary Care Provider Dr. Pratibha Ronquillo Primary Care Provider Dr. Pratibha Ronquillo Referring Provider Roof METER MECHANIC, METER MECHANIC-C Enzo Barnett Attending Provider Pratibha Ronquillo DO Primary Care Provider Dr. Pratibha Ronquillo Primary Care Provider Roof METER MECHANIC, METER MECHANIC-C Enzo Barnett Referring Provider Roof METER MECHANIC, METER MECHANIC-C Enzo Barnett Other Provider Dr. Luis Antonio Arias Attending Provider Pratibha Ronquillo DO Primary Care Provider Dr. Pratibha Ronquillo DO Primary Care Provider Jaylan SHAW, Dr. Omar Manrique Attending Provider Dr. Omar Tian MD Referring Provider Pratibha Ronquillo DO Primary Care Provider Dr. Pratibha Ronquillo DO Attending Provider Dr. Pratibha Ronquillo DO Referring Provider Angel SHAW, Dr. Hughes Other Provider [phone] Angel SHAW, Dr. Hughes Attending Provider Angel SHAW, Dr. Hughes Referring Provider Hawk SIMON, Dr. Tee Referring Provider Hawk SIMON, Dr. Tee Emergency Provider Hawk SIMON, Dr. Tee Attending Provider Bettie SHAW, Dr. Tee Attending Provider Jose SHAW, Bony Attending Provider Jose HSAW, Bony Referring Provider Meaghan SHAW, Dr. Clarke Emergency Provider Yg SIMON, Dr. Monzon Primary Care Provider Meaghan SHAW, Dr. Clarke Attending Provider Vance, Samantha Attending Unavailable Vance, Samantha Referring Unavailable Yg, Pratibha Primary Care Unavailable Schwiger, Randal Referring Unavailable Yg, Pratibha Primary Care Unavailable Schwiger, Randal Attending Unavailable Yg, Pratibha Primary Care Unavailable Bony Garcia Attending Unavailable JoseBony Referring Unavailable Yg, Pratibha Primary Care Unavailable Yg, Pratibha Attending Unavailable Bony Garcia Attending Unavailable Jose, Bony Referring Unavailable Yg, Pratibha Primary Care Unavailable Yg, Pratibha Primary Care Unavailable Bony Garcia Attending Unavailable Jose, Bony Referring Unavailable Yg, Pratibha Primary Care Unavailable Vince Harding Attending Unavailable Schwiger, Randal Referring Unavailable Yg, Pratibha Primary Care Unavailable Randal Alexandre Attending Unavailable Yg, Pratibha Primary Care Unavailable Luis Antonio Arias Attending Unavailable Moodispasalina, Luis Antonio Referring Unavailable Yg, Pratibha Primary Care Unavailable Moodispaw, Luis Antonio Consulting Unavailable Yg, Pratibha Attending Unavailable Yg, Pratibha Referring Unavailable Yg, Pratibha Primary Care Unavailable Moodispaw, Luis Antonio Consulting Unavailable Yg, Pratibha Attending Unavailable Yg, Pratibha Referring Unavailable Omar Tian Attending Unavailable Omar Tian Referring Unavailable Yg, Pratibha Primary Care Unavailable YG, PRATIBHA A Primary Care Unavailable RHEA VÁZQUEZ Attending Unavailable YG, PRATIBHA A Referring Unavailable MOODISPAW, LUIS ANTONIO Yao Attending Unavailable YG, PRATIBHA A Primary Care Unavailable YG, PRATIBHA A Referring Unavailable MOODISPAW, LUIS ANTONIO Yao Attending Unavailable YG, PRATIBHA A Primary Care Unavailable YG, PRATIBHA A Referring Unavailable MOODISPAW, LUIS ANTONIO Yao Attending Unavailable YG, PRATIBHA A Primary Care Unavailable YG, PRATIBHA A Primary Care Unavailable YADI LEON Attending Unavailable KURTISSTEYADI Referring Unavailable MOODISPAW, LUIS ANTONIO F Referring Unavailable JOSEBONY JOSE Admitting Unavailable CONSULT, LIFESTYLE MEDICINE Consulting Unav ailable YG, PRATIBHA A Primary Care Unavailable BONY GARCIA Attending Unavailable BONY GARCIA Admitting Unavailable CONSULT, CARDIOLOGY Consulting Unavailable VINCE HARDING Referring Unavailable BONY GARCIA Attending Unavailable YG, PRATIBHA A Primary Care Unavailable NICOLE SALINAS Admitting Unavailable YG, PRATIBHA A Primary Care Unavailable MEIR DELEON Referring Unavailable MEIR DELEON Attending Unavailable YG, PRATIBHA A Primary Care Unavailable YADI LEON Referring Unavailable KURTISSTEYADI Attending Unavailable AHMAD, ANIRUDH S Referring Unavailable YG, PRATIBHA A Primary Care Unavailable BONY GARCIA Attending Unavailable MOODISPAW, LUIS ANTONIO Yao Referring Unavailable MOODISPAW, LUIS ANTONIO Yao Attending Unavailable YG, PRATIBHA A Primary Care Unavailable MOODISPASalina, LUIS ANTONIO Yao Attending Unavailable SELF, SELF Referring Unavailable YG, PRATIBHA A Primary Care Unavailable YG, PRATIBHA A Primary Care Unavailable KURTISSTEYADI Referring Unavailable KURTISSTEYADI Attending Unavailable YG, PRATIBHA A Primary Care Unavailable KURTISSTNANCY MancusoIE C Attending Unavailable KURTISSTE, YADI C Referring Unavailable JOSEBONY A Attending Unavailable YG, PRATIBHA A Primary Care Unavailable KURTISSTENANCYIE C Referring Unavailable JOSEBONY A Attending Unavailable YG, PRATIBHA A Primary Care Unavailable KURTISSTE YADI C Referring Unavailable SELF, SELF Referring Unavailable MARILYN MARIE Attending Unavailable YG, PRATIBHA A Primary Care Unavailable KISTEYADI C Referring Unavailable YG, PRATIBHA A Primary Care Unavailable AHMAD, ANIRUDH S Referring Unavailable AHMAD, ANIRUDH S Attending Unavailable YG, PRATIBHA A Primary Care Unavailable YG, PRATIBHA A Referring Unavailable YG, PRATIBHA A Attending Unavailable YG, PRATIBHA A Primary Care Unavailable MAURICIO TADEO Attending Unavailable MAURICIO TADEO Admitting Unavailable GY, PRATIBHA A Primary Care Unavailable YG, PRATIBHA A Referring Unavailable YG, PRATIBHA A Attending Unavailable YG, PRATIBHA A Primary Care Unavailable Allergies Allergy Classification Reported Allergen(s) Allergy Type Date of Onset Reaction(s) Facility Penicillins (antibiotic) (1 source) Penicillins Drug Allergy 05-22-20 09 [facility] Work Phone: varenicline (1 source) varenicline Drug Allergy 10-23-19 12 Mental Status Change [facility] Work Phone: (20 sources) Ciprofloxacin; Translations: [CIPROFLOXACIN] Drug Allergy 05-17-20 20 [facility] Comment on above: muscle aches (20 sources) meloxicam; Translations: [MELOXICAM] Drug Allergy 07-17-20 21 [facility] Work Phone: (20 sources) Penicillins; Translations: [Penicillins] Propensity to adverse reactions to drug 05-22-20 09 Itching [facility] (20 sources) rosuvastatin Drug Allergy 01-01-20 11 [facility] (20 sources) Simvastatin; Translations: [SIMVASTATIN] Drug Allergy 01-01-20 11 Other [facility] Comment on above: MUSCLE ACHES/JOINT P AIN (20 sources) varenicline; Translations: [VARENICLINE] Drug Allergy 10-23-19 12 [facility] (20 sources) meloxicam Drug Allergy 07-17-20 21 [facility] Work Phone: (3 sources) Rosuvastatin calcium Propensity to adverse reactions to drug 01-01-20 11 [facility] (20 sources) Simvastatin Propensity to adverse reactions to drug 01-01-20 11 [facility] (20 sources) Sulfamethoxazole / Trimethoprim; Translations: [SULFAMETHOXAZOLE-T RIMETHOPRIM] Drug Allergy 01-18-20 Hives, Swelling [facility] (6 sources) clopidogrel; Translations: [CLOPIDOGREL] Drug Allergy 05-04-20 Drowsy/Sedated [facility] (1 source) Ciprofloxacin Drug Allergy 04-01-20 [facility] (1 source) rosuvastatin Drug Allergy 04-01-20 [facility] (1 source) Simvastatin Drug Allergy 04-01-20 [facility] Medications Current Medications Medication Drug Class(es) Dates Sig (Normalized) Sig (Original) aspirin 81 mg chewable tablet (20 sources) Platelet Aggregation Inhibitor, Nonsteroidal Anti-inflammatory Drug Start: 04-02-2025 End: 05-30-2025 aspirin 81 MG Chew Tab chewable tablet Chew 1 tablet daily. 90 tablet 3 05/30/2025 Active Start: 03-11-2025 End: 04-05-2025 take 1 tablet by mouth once daily Aspirin 325 MG tablet Take 1 tablet by mouth daily. 30 tablet 3 03/16/2025 04/05/2025 Discontinued (Stop Taking at Discharge) Start: 02-03-2025 End: 02-03-2025 324 mg, Oral, ONCE, 1 dose, On Maria Luz 02/03/25 at 1000, Patient to receive at least 30 minutes prior to procedure. Instruct patient to chew and not swallow., Pre-op/Pre-Proc Start: 08-14-2022 End: 07-21-2023 aspirin chewable tablet 81 m g Start: 08-13-2021 End: 03-15-2025 take 1 tablet by mouth once daily Aspirin (Adult Aspirin Regimen) 81 mg tablet,delayed release (DR/EC) Active 81 mg PO DAILY August 13, 2021 1:00am Start: 07-03-2021 End: 01-30-2022 take 1 tablet by mouth twice daily aspirin 325 MG tablet Take 1 tablet by mouth 2 times daily. Take for 35 days for prevention of blood clots 70 tablet 0 07/03/2021 01/30/2022 Discontinued Start: 05-04-2020 End: 02-09-2021 Aspirin (Adult Low Dose Aspi rin) 81 mg tablet,delayed release (DR/EC) Discontinued 81 mg PO .qod 30 0 May 04, 2020 9:12am February 09, 2021 3:02pm Start: 04-20-2019 End: 05-04-2020 Aspirin (Adult Low Dose Aspi rin) 81 mg tablet,delayed release (DR/EC) Discontinued 81 mg PO DAILY 30 0 April 20, 2019 12:00am May 04, 2020 9:12am Start: 10-01-2017 End: 02-04-2018 Aspirin (Adult Low Dose Aspi rin) 81 mg tablet,delayed release (DR/EC) Discontinued 81 mg PO daily October 01, 2017 1:00am February 04, 2018 9:13am Start: 05-26-2009 End: 10-01-2017 take 1 tablet by mouth at bedtime Aspirin 325 MG tablet Discontinued 325 mg PO AT BEDTIME March 27, 2017 12:00am October 01, 2017 5:05pm Comment on above: 1 Tab ORAL DAILY atorvastatin 10 mg oral tablet (20 sources) HMG-CoA Reductase Inhibitor Start: End: take 1 tablet by mouth once daily Atorvastatin 10 MG tablet Indications: 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 , Hyperlipidemia, unspecified hyperlipidemia type , Encounter for screening for coronary artery disease Take 1 tablet by mouth daily. 05/12/2025 Active Start: 01-18-2025 End: 05-12-2025 take 1 tablet by mouth once daily Atorvastatin 20 MG tablet Indications: 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 , Hyperlipidemia, unspecified hyperlipidemia type , Encounter for screening for coronary artery disease Take 1 tablet by mouth daily. 90 tablet 3 01/18/2025 05/12/2025 Discontinued Start: 07-21-2023 End: 01-18-2025 take 0.5 tablet by mouth every other day Atorvastatin 10 MG tablet Indications: 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 , Hyperlipidemia, unspecified hyperlipidemia type , Encounter for screening for coronary artery disease Take 0.5 tablets by mouth every other day. 90 tablet 3 07/21/2023 01/18/2025 Discontinued (Reorder) Start: 03-27-2017 End: 04-22-2023 take 5 mg by mouth every other day Atorvastatin 10 mg tablet Discontinued 5 mg PO .COMPLEX 15 March 26, 2021 12:26pm Kyaw 6th, 2021 9:47am 5 mg PO every other day; Start: 03-27-2017 End: 04-22-2023 take 5 mg by mouth every other day Atorvastatin Discontinued 5 MG PO .COMPLEX 15 March 26, 2021 12:26pm August 13, 2021 9:47am 5 mg PO every other day; 24 hr metoprolol succinate 25 mg extended release oral tablet (20 sources) beta-Adrenergic Roberto Start: 06-02-2025 take 1 tablet by mouth twice daily Metoprolol succinate (Toprol XL) 25 MG tablet XL Indications: 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 , H/O heart artery stent , S/P CABG x 3 , Hyperlipidemia, unspecified hyperlipidemia type , Angina pectoris Take 1 tablet by mouth 2 times daily. 180 tablet 3 06/02/2025 Active Start: 04-14-2025 End: 06-02-2025 take 1 tablet by mouth once daily Metoprolol succinate (Toprol XL) 25 MG tablet XL Take 1 tablet by mouth daily. 90 tablet 3 04/14/2025 06/02/2025 Discontinued (Reorder) Start: 04-04-2025 End: 04-05-2025 take 25 mg by mouth every twelve hours 25 mg, Oral, EVERY 12 HOURS, First dose (after last modification) on Fri04/04/25 at 2100, Until Discontinued, Hold for SBP Start: 04-03-2025 End: 04-14-2025 take 1 tablet by mouth twice daily Metoprolol 25 MG tab regular release Take 1 tablet by mouth 2 times daily. 60 tablet 2 04/05/2025 04/14/2025 Discontinued (Therapy completed) Start: 04-02-2025 End: 04-03-2025 take 12.5 mg by mouth twice daily 12.5 mg, Oral, 2 TIMES DAILY, First dose on Fri04/02/25 at 0900, Until Discontinued Start: 03-15-2025 End: 04-05-2025 take 0.5 tablet by mouth twice daily Metoprolol 25 MG tab regular release Take 0.5 tablets by mouth 2 times daily. 30 tablet 1 03/15/2025 04/05/2025 Discontinued Start: 03-15-2025 End: 03-15-2025 take 12.5 mg by mouth once daily 12.5 mg, Oral, DAILY, First dose (after last modification) on Fri03/15/25 at 0900, Until Discontinued, For all post-operative patients starting POD #1 for atrial fibrillation prophylaxis. Hold for Heart Rate less than 65 and Systolic Blood Pressure less than 100bpm or hold if patient is receiving inotropes (dobutamine, epinephrine, milrinone) or pressors (vasopressin, dopamine, norepinephrine, phenylephrine, isoproterenol)., Post-op/Post-Proc Start: 03-11-2025 End: 03-15-2025 take 12.5 mg by mouth every twelve hours 12.5 mg, Oral, EVERY 12 HOURS, First dose (after last modification) on Fri03/12/25 at 2100, Until Discontinued, For all post-operative patients starting POD #1 for atrial fibrillation prophylaxis. Hold for Heart Rate less than 65 and Systolic Blood Pressure less than 100bpm or hold if patient is receiving inotropes (dobutamine, epinephrine, milrinone) or pressors (vasopressin, dopamine, norepinephrine, phenylephrine, isoproterenol)., Post-op/Post-Proc Start: 02-10-2025 End: 03-15-2025 take 1 tablet by mouth once daily Metoprolol succinate (Toprol XL) 25 MG tablet XL Take 1 tablet by mouth daily. 30 tablet 6 02/10/2025 03/15/2025 Discontinued (Stop Taking at Discharge) Multiple Vitamins-Minerals (Multivitamin Gummies Adult) Chew Tab (12 sources) Multiple Vitamins-Minerals (Multivitamin Gummies Adult) Chew Tab Chew 1 tablet daily. Active naproxen sodium 220 mg oral tablet (20 sources) Nonsteroidal Anti-inflammatory Drug Start: 2021 take 2 tablets by mouth twice daily Naproxen Sodium 220 mg tablet Active 440 mg PO TWICE A DAY February 18, 2022 8:53am Start: 02-18-2022 take 440 mg by mouth twice daily Naproxen Sodium Active 440 MG PO TWICE A DAY February 18, 2022 8:53am Start: 11-04-2019 End: 02-18-2022 take 1 tablet by mouth twice daily Naproxen Sodium 220 mg tablet Discontinued 220 mg PO TWICE A DAY November 04, 2019 5:02pm February 18, 2022 8:53am Start: 03-27-2017 End: 11-04-2019 take 440 mg by mouth twice daily Naproxen Sodium Discontinued 440 MG PO TWICE A DAY March 27, 2017 12:00am November 04, 2019 5:03pm Start: 03-13-2006 End: 11-04-2019 take 2 tablets by mouth twice daily Naproxen Sodium 220 MG tablet Discontinued 440 mg PO TWICE A DAY March 27, 2017 12:00am November 04, 2019 5:03pm End: 07-21-2023 Naproxen Sodium 220 MG capsu le Take by mouth as needed for Mild Pain. 0 07/21/2023 Discontinued (Medication Reconciliation (suppress cancel msg)) Comment on above: 2 tabs bid nitroglycerin 0.4 mg sublingual tablet (20 sources) Nitrate Vasodilator Start: 05-29-2025 End: 05-29-2025 1 dose, Starting on 05/29/25 at 1150, Until 05/29/25 at 1151, Created by cabinet override Start: 05-29-2025 End: 05-30-2025 nitroGLYCERIN 0.[address] 1 tablet under tongue every 5 minutes as needed for Chest pain. max = 3 doses. If CP persists after 1st dose, call 911 25 tablet 2 05/31/2025 Active Start: 04-02-2025 End: 04-03-2025 0-100 mcg/min (0-30 mL/hr), Intravenous, CONTINUOUS, Starting on 04/02/25 at 1400, Until 04/03/25 at 1707, Initiate at 10 mcg/min. Titrate by 10 mcg/min every 5 minutes for chest pain relief (spasm in [place]OR[place]). Maintain SBP greater than 90 mmHg. Notify prescriber for inability to achieve goals at maximum dose of ordered range or for change in clinical condition. Start: 03-10-2025 End: 03-11-2025 take 3 mL intravenously every hour 10 mcg/min (3 mL/hr ), Intravenous, CONTINUOUS, Starting on Maria Luz 03/10/25 at 2044, Until Fri03/11/25 at 2043, Initiate at ordered dose. Do not titrate. Notify Prescriber for a change in clinical condition. Start: 03-27-2017 End: 03-15-2025 Nitroglycerin 0.4 MG tablet Active 0.4 mg SL Q5M as needed for Chest Pain March 27, 2017 12:00am prasugrel 10 mg oral tablet (8 sources) [id number] Platelet Inhibitor Start: 04-14-2025 End: 05-30-2025 take 1 tablet by mouth once daily Prasugrel HCl (Effient) 10 MG tablet Take 1 tablet by mouth daily. 90 tablet 3 05/30/2025 Active 12 hr ranolazine 500 mg extended release oral tablet (1 source) Anti-anginal Start: 06-02-2025 take 1 tablet by mouth twice daily Ranolazine 500 MG Tab SR 12 HR tablet Indications: 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 , H/O heart artery stent , S/P CABG x 3 , Hyperlipidemia, unspecified hyperlipidemia type , Angina pectoris Take 1 tablet by mouth 2 times daily. 60 tablet 6 06/02/2025 Active Completed/Discontinued Medications Medication Drug Class(es) Dates Sig (Normalized) Sig (Original) acetaminophen 325 mg oral tablet (20 sources) Start: 05-28-2025 End: 05-30-2025 take 1 tablet by mouth every four hours as needed 650 mg, Oral, EVERY 4 HOURS NEEDED, Starting on 05/28/25 at 1240, Until 05/30/25 at 1908, Mild Pain, Moderate Pain, Severe Pain, Maximum dose of acetaminophen is 4000 mg from all sources in 24 hours. Start: 04-02-2025 End: 04-05-2025 975 mg, Oral, EVERY 6 HOURS, First dose on 04/02/25 at 2230, Until Discontinued, Maximum dose of acetaminophen is 4000 mg from all sources in 24 hours. Start: 04-02-2025 End: 04-02-2025 take 1 tablet by mouth every six hours as needed 325 mg, Oral, EVERY 6 HOURS NEEDED, Starting on 04/02/25 at 0307, Until 04/02/25 at 2218, Mild Pain, Moderate Pain, Severe Pain, Oral temp > 100.4 F, For mild, moderate, or severe pain (DVPRS) or CPOT >2. Ok to give with opioid if frequency allows. Start: 03-14-2025 End: 03-15-2025 take 1 tablet by mouth every four hours as needed Acetaminophen (TYLENOL) tablet 650 mg Start: 03-10-2025 End: 03-10-2025 take 1 dose by mouth once 975 mg, Oral, ONCE, 1 dose, On Maria Luz 03/10/25 at 1030, Prior to OR; Hold if liver dysfunction present (AST/ALT greater than 2x upper limit of normal)., Pre-op/Pre-Proc Start: 08-14-2022 End: 09-17-2022 take 1 tablet by mouth every six hours as needed acetaminophen 650 MG Tab CR Take 1 tablet by mouth every 6 hours as needed for Mild Pain or Moderate Pain for up to 20 days. 40 tablet 1 08/28/2022 09/17/2022 Active Start: 02-18-2022 take 2 tablets by mo uth twice daily Acetaminophen 500 mg tablet Active 1000 mg PO TWICE A DAY February 18, 2022 12:00am Start: 02-18-2022 take 1000 mg by mout h twice daily Acetaminophen Active 1000 MG PO TWICE A DAY February 18, 2022 12:00am Start: 07-03-2021 End: 03-15-2025 take 2 tablets by mouth every six hours as needed Acetaminophen 325 MG tablet Take 2 tablets by mouth every 6 hours as needed for Moderate Pain or Mild Pain. 03/15/2025 Active Start: 11-04-2019 End: 05-17-2020 take 1 tablet by mouth every six hours as needed Acetaminophen 325 mg tablet Discontinued 325 mg PO EVERY 6 HOURS as needed November 04, 2019 1:00am May 17, 2020 8:52am 500 ml albumin human, retirement 50 mg/ml injection (1 source) Human Serum Albumin Start: 04-04-2025 End: 04-04-2025 12.5 g, Intravenous, Administer over 60 Minutes, ONCE, 1 dose, On Fri04/04/25 at 1045, At [facility], in emergencies, administer as rapidly as necessary to improve clinical conditions. Rate of infusion is based on dose: 12.5g given over 30min, 25g given over 60min, 50g given over 120min., Indications: Fluid Resuscitation albuterol 0.83 mg/ml inhalation solution (1 source) beta2-Adrenergic Agonist Start: 03-13-2025 End: 03-15-2025 take 2.5 mg by inhalation every six hours as needed 2.5 mg, Nebulization, EVERY 6 HOURS NEEDED, Starting on Fri03/13/25 at 1804, Until Fri03/15/25 at 1626, Shortness of Breath aluminum hydroxide 40 mg/ml / magnesium hydroxide 40 mg/ml / simethicone 4 mg/ml oral suspension (1 source) Start: 04-02-2025 End: 04-05-2025 take 30 mL by mouth every six hours as needed 30 mL, Oral, EVERY 6 HOURS NEEDED, Starting on 04/02/25 at 0307, Until Tu04/05/25 at 1514, Indigestion, Per 5 mL is equivalent to: (Alum-Mag Hydroxide 200-225 mg and Simethicone 20 mg) and (Alum-Mag Hydroxide 200-200 mg and Simethicone 20 mg) amiodarone hydrochloride 400 mg oral tablet (2 sources) Antiarrhythmic Start: 02-22-2025 End: 03-15-2025 take 1 tablet by mouth three times daily amiodarone 400 MG tablet Take 1 tablet by mouth 3 (three) times a day for 9 doses. For atrial fibrillation prophylaxis prior to cardiac surgery. 9 tablet 02/22/2025 03/15/2025 Discontinued (Stop Taking at Discharge) azithromycin 250 mg oral tablet (1 source) Macrolide Antimicrobial Start: 05-04-2025 End: 05-08-2025 Azithromycin 250 MG tablet Take two tabs on day one, and one tab daily on days two through five. 6 tablet 05/04/2025 05/08/2025 Aztreonam (AZACTAM) 2 g in sodium chloride 0.9% (MB PLUS) 100 mL (total volume) IVPB (1 source) Start: 03-11-2025 End: 03-11-2025 take 2 g intravenously every eight hours 2 g, Intravenous, Administer over 30 Minutes, EVERY 8 HOURS NON-STANDARD, 2 doses, First dose on Fri03/11/25 at 0300, Last dose on Fri03/11/25 at 1100, For 2 doses and 24 hour duration of antibiotic. Pharmacists to adjust., Post-op/Post-Proc bisacodyl 10 mg rectal suppository (1 source) Stimulant Laxative Start: 03-13-2025 End: 03-15-2025 10 mg, Rectal, DAILY, First dose on Fri03/13/25 at 0900, Until Discontinued, Hold for loose stools or positive bowel movement in the last 48 hours., Post-op/Post-Proc 5 ml bupivacaine hydrochloride 5 mg/ml injection (4 sources) Amide Local Anesthetic Start: 04-10-2022 End: 04-10-2022 bupivacaine (PF) (MARCAINE) 0.5 % injection 0.5 mL Start: 03-06-2022 End: 03-06-2022 bupivacaine (PF) (MARCAINE) 0.5 % injection 0.5 mL calcium carbonate 648 mg oral tablet (16 sources) Start: 05-29-2025 End: 05-30-2025 take 648-1296 mg by mouth four times daily as needed 648-1,296 mg (1-2 tablet), Oral, 4 TIMES DAILY NEEDED, Starting on 05/29/25 at 2054, Until 05/30/25 at 1908, Indigestion Start: 03-27-2017 End: 10-01-2017 take 1 tablet by mouth at bedtime Calcium Carbonate 200 MG tablet,chewable Discontinued 200 mg PO AT BEDTIME March 27, 2017 12:00am October 01, 2017 5:05pm calcium chloride 0.0014 meq/ ml / potassium chloride 0.004 meq/ml / sodium chloride 0.103 meq/ml / sodium lactate 0.028 meq/ml injectable solution (1 source) Start: 08-14-2022 End: 08-14-2022 lactated ringers IV solution Calcium Gluconate 10 % injec tion 2 g (2 sources) Start: 04-02-2025 End: 04-05-2025 Calcium Gluconate 10 % injection 2 g Start: 03-10-2025 End: 03-15-2025 Calcium Gluconate 10 % injec tion 2 g carvedilol 3.125 mg oral tablet (1 source) alpha-Adrenergic Roberto, beta-Adrenergic Roberto Start: 05-26-2009 take 1 tablet by mouth once daily CARVEDILOL 3.125 MG TAB 1 Tab ORAL DAILY 30 0 05/26/2009 Active Comment on above: 1 Tab ORAL DAILY castor oil 0.788 mg/mg / cymro balsam 0.087 mg/mg topical ointment (1 source) Standardized Chemical Allergen Start: 03-10-2025 End: 03-15-2025 1 Application, Topical, 3 TIMES DAILY, First dose on Maria Luz 03/10/25 at 2100, Until Discontinued, Apply to bony prominences (like back, heels, elbows, sacrum, etc.) to promote circulation., ICU celecoxib 100 mg oral capsule (20 sources) Nonsteroidal Anti-inflammatory Drug Start: 05-01-2022 End: 07-31-2022 take 2 capsules by mouth twice daily celecoxib (CeleBREX) 100 MG capsule Take 2 capsules by mouth 2 times daily. 60 capsule 1 05/01/2022 07/31/2022 Discontinued (Medication Reconciliation (suppress cancel msg)) Start: 11-16-2021 End: 05-01-2022 take 1 capsule by mouth twice daily celecoxib (CeleBREX) 100 MG capsule Take 1 capsule by mouth 2 times daily. 60 capsule 1 11/16/2021 05/01/2022 Discontinued (Reorder) cephalexin 500 mg oral capsule (5 sources) Cephalosporin Antibacterial Start: 03-18-2025 End: 04-01-2025 take 1 capsule by mouth every six hours Cephalexin 500 mg capsule Discontinued 500 mg PO EVERY 6 HOURS 40 0 March 18, 2025 12:00am April 01, 2025 5:25pm chlorhexidine gluconate 1.2 mg/ml mouthwash (2 sources) Start: 03-10-2025 End: 03-13-2025 take 15 mL by mouth every twelve hours 15 mL, Swish & Spit, EVERY 12 HOURS, First dose on Maria Luz 03/10/25 at 2030, Until Discontinued, Not for systemic administration. Non-ventilated patients: Swish and spit. Ventilated patients: Swab in mouth., Intubation Start: 03-10-2025 End: 03-10-2025 15 mL, Mouth/Throat, HYPERBARIC WELDER DIVER TO PROCEDURE, 1 dose, Starting on Maria Luz 03/10/25 at 1020, Until Maria Luz 03/10/25 at 1055, Mouth Cleansing, To be administered in PACU., Pre-op/Pre-Proc ciprofloxacin 500 mg oral tablet (15 sources) Quinolone Antimicrobial Start: 09-24-2017 End: 10-01-2017 take 1 tablet by mouth twice daily Ciprofloxacin Hcl (Cipro) 500 mg tablet Discontinued 500 mg PO TWICE A DAY September 24, 2017 1:00am October 01, 2017 5:05pm clindamycin 150 mg oral capsule (20 sources) Lincosamide Antibacterial End: 07-31-2022 take 1 capsule by mouth four times daily clindamycin 150 MG capsule Take 150 mg by mouth 4 times daily. 0 07/31/2022 Discontinued (Medication Reconciliation (suppress cancel msg)) clopidogrel 75 mg oral tablet (20 sources) [id number] Platelet Inhibitor Start: 04-02-2025 End: 04-02-2025 take 1 dose by mouth once 525 mg, Oral, ONCE, 1 dose, On 04/02/25 at 1215 Start: 04-02-2025 End: 04-14-2025 take 1 tablet by mouth once daily Clopidogrel 75 MG tablet Take 1 tablet by mouth daily. 30 tablet 5 04/06/2025 04/14/2025 Discontinued (Side effects) Start: 03-27-2017 End: 04-20-2019 take 1 tablet by mouth once daily Clopidogrel 75 mg tablet Discontinued 75 mg PO DAILY 90 3 October 26, 2018 11:00am April 20, 2019 10:07am Start: 05-26-2009 take 1 tablet by [facility] twice daily, then take 1 tablet by mouth every month CLOPIDOGREL 75 MG TAB 1 Tab ORAL 2 TIMES DAILY for first month, then take 1 tab daily every month. 120 0 05/26/2009 Active Comment on above: 1 Tab ORAL 2 TIMES D AILY for first month, then take 1 tab daily every month. docusate sodium 100 mg oral capsule (20 sources) Start: 2 End: take 1 capsule by mouth twice daily as needed docusate 100 MG capsule Take 1 capsule by mouth 2 times daily as needed. 20 capsule 08/14/2022 02/03/2025 Discontinued (Stop Taking at Discharge) EPINEPHrine (ADRENALIN) 5 mg in Sodium chloride 0.9% 250 mL IV infusion (1 source) Start: 5 End: 5 0-0.06 mcg/kg/min 102.1 kg Order-specific weight (0-18.378 mL/hr, rounded to 0-18.4 mL/hr), Intravenous, CONTINUOUS, Starting on Maria Luz 03/10/25 at 2045, Until 03/12/25 at 0451, Initiate infusion at 0.02 mcg/kg/min. Titrate by 0.01 mcg/kg/min every 1 minute to maintain MAP between 65 and 75 mmHg . Titrate to the lowest rate to achieve target goal. Notify prescriber for inability to achieve goals at maximum dose of ordered range or change in clinical condition. Extravasation risk. Central line required. ezetimibe 10 mg oral tablet (20 sources) Dietary Cholesterol Absorption Inhibitor Start: End: take 10 mg by mouth once daily 10 mg, Oral, DAILY, First dose on 05/28/25 at 1115, Until Discontinued Start: 04-29-2021 End: 01-19-2025 take 0.5 tablet by mouth every other day Ezetimibe 10 MG tablet Indications: 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 , Hyperlipidemia, unspecified hyperlipidemia type , Encounter for screening for coronary artery disease Take 0.5 tablets by mouth every other day. 90 tablet 3 07/21/2023 01/19/2025 Discontinued (Reorder) Start: 03-27-2017 End: 09-11-2022 take 5 mg by mouth every other day Ezetimibe 10 mg tablet Discontinued 5 mg PO .QOD 15 June 14, 2020 11:19am February 09, 2021 3:05pm Start: 03-27-2017 End: 09-11-2022 take 5 mg by mouth every other day Ezetimibe Discontinued 5 MG PO .QOD June 14, 2020 11:19am February 09, 2021 3:05pm 2 ml fentaNYL 0.05 mg/ml injection (1 source) Opioid Agonist Start: 08-14-2022 End: 08-14-2022 fentaNYL (SUBLIMAZE) injection 25 mcg furosemide 40 mg oral tablet (6 sources) Loop Diuretic Start: 03-14-2025 End: 04-04-2025 take 1 tablet by mouth once daily furOSEmide 40 MG tablet Take 1 tablet by mouth daily for 5 days. 5 tablet 03/16/2025 04/04/2025 Discontinued (Medication Reconciliation (suppress cancel msg)) Start: 03-12-2025 End: 03-12-2025 20 mg, Intravenous, 2 TIMES DAILY BEFORE MEALS, 1 dose, First dose (after last reorder) on 03/13/25 at 0900, Administer by slow IV push at a rate not exceeding 40mg/min gabapentin 100 mg oral capsule (17 sources) Anti-epileptic Agent Start: 08-14-2022 End: 03-15-2025 take 1 capsule by mouth three times daily for pain gabapentin 100 MG capsule Take 1 capsule by mouth 3 times daily for 10 days. This medication is used for acute post-operative pain 30 capsule 08/14/2022 03/15/2025 Discontinued (Stop Taking at Discharge) Gadobutrol (GADAVIST) 1 MMOL/ML injection 1-30 mL (1 source) Start: 04-04-2025 End: 04-04-2025 1-30 mL, Intravenous, ONCE, 1 dose, On Fri04/04/25 at 1300, Extravasation Risk GI Cocktail (2 sources) Start: 05-29-2025 End: 05-29-2025 take 1 dose by mouth once Oral, ONCE, 1 dose, On 05/29/25 at 1330 Start: 04-03-2025 End: 04-03-2025 take 1 dose by mouth once Oral, ONCE, 1 dose, On Fri at 0400 guaiFENesin 20 mg/ml oral solution (1 source) Start: 03-12-2025 End: 03-15-2025 take 200 mg by mouth every four hours as needed 200 mg, Oral, EVERY 4 HOURS NEEDED, Starting on 03/12/25 at 0544, Until Tu03/15/25 at 1626, Cough 1 ml haloperidol 5 mg/ml prefilled syringe (1 source) Typical Antipsychotic Start: 03-11-2025 End: 03-11-2025 2 mg, Intravenous, ONCE, 1 dose, On Fri03/11/25 at 0300 250 ml heparin sodium, porcine 100 unt/ml injection (4 sources) Unfractionated Heparin, Anti-coagulant Start: 05-29-2025 End: 05-30-2025 CONTINUOUS, Starting on 05/29/25 at 0930, Until 05/30/25 at 1129, INTERMEDIATE/CA RDIAC SLIDING SCALE FOR PATIENTS EQUAL TO OR GREATER THAN 65KG: Initiate dose at 12 units/kg/hr. If PTT is less than 47, increase dose by 3 units/kg/hr. If PTT is 47-60, increase dose by 2 units/kg/hr. If PTT is 61-71, increase dose by 1 unit/kg/hr. If PTT is 72-95, no change. If PTT is 96-111, decrease dose by 1 unit/kg/hr. If PTT is 112-126, hold infusion for 60 minutes and decrease dose by 2 units/kg/hr. If PTT greater than 126, hold infusion and check PTT every 2 hours. Once PTT is in goal range or below, restart infusion at 3 units/kg/hr lower than the most recent dose. Note: Round PTT to nearest whole number (e.g. 70.5=71, 70.4=70)., Indications: Acute Coronary Syndrome, On hold since 05/30/2025 at 0845 until manually unheld Start: 05-29-2025 End: 05-29-2025 4,000 Units, Intravenous, ON CE, 1 dose, On 05/29/25 at 0930 Start: 04-02-2025 End: 04-05-2025 CONTINUOUS, Starting on 04/02/25 at 0645, Until Tu04/05/25 at 1034, INTERMEDIATE/CARDIAC SLIDING SCALE FOR PATIENTS EQUAL TO OR GREATER THAN 65KG: Initiate dose at 12 units/kg/hr. If PTT is less than 47, increase dose by 3 units/kg/hr. If PTT is 47-60, increase dose by 2 units/kg/hr. If PTT is 61-71, increase dose by 1 unit/kg/hr. If PTT is 72-95, no change. If PTT is 96-111, decrease dose by 1 unit/kg/hr. If PTT is 112-126, hold infusion for 60 minutes and decrease dose by 2 units/kg/hr. If PTT greater than 126, hold infusion and check PTT every 2 hours. Once PTT is in goal range or below, restart infusion at 3 units/kg/hr lower than the most recent dose. Note: Round PTT to nearest whole number (e.g. 70.5=71, 70.4=70)., Indications: Elevated tropoin Start: 03-11-2025 End: 03-15-2025 inject 5000 [IU] by subcutaneous injection every eight hours 5,000 Units, Subcutaneous, EVERY 8 HOURS (0800/1600/2200), First dose on Fri03/11/25 at 2200, Until Discontinued, Post-op/Post-Proc hydrALAZINE hydrochloride 25 mg oral tablet (2 sources) Arteriolar Vasodilator Start: 05-29-2025 End: 05-30-2025 take 1 tablet by mouth every eight hours as needed 25 mg, Oral, EVERY 8 HOURS NEEDED, Starting on 05/29/25 at 1746, Until 05/30/25 at 1908, Other, BP>160 or DBP>90 (notify MD prior to giving) Start: 03-12-2025 End: 03-12-2025 5 mg, Intravenous, ONCE, 1 d ose, On 03/12/25 at 2315 hydrogen peroxide 30 mg/ml topical solution (1 source) Start: 08-14-2022 End: 08-14-2022 hydrogen peroxide - sterile 0.03 topical solution 1 Application 1 ml HYDROmorphone hydrochloride 1 mg/ml cartridge (4 sources) Opioid Agonist Start: 03-11-2025 End: 03-11-2025 0.5 mg, Intravenous, ONCE, 1 dose, On Fri03/11/25 at 0930 Start: 03-10-2025 End: 03-11-2025 take 0.5 mg intravenously every four hours as needed 0.5 mg, Intravenous, EVERY 4 HOURS NEEDED, Starting on Maria Luz 03/10/25 at 2017, Until Fri03/11/25 at 0016, Severe Pain, Single dose for severe pain (DVPRS) or CPOT>2. May give x1 30 minutes post PRN IV hydromorphone if dose previously documented as ineffective and did not result in adverse effects (RR 100 ml insulin, regular, human 1 unt/ml injection (1 source) Insulin Start: 03-10-2025 End: 03-12-2025 0-25 Units/hr (0-25 mL/hr), Intravenous, CONTINUOUS, Starting on Fri03/10/25 at 2030, Until Fri03/12/25 at 0451, TYPE 2 DIABETES OR OTHER HYPERGLYCEMIA standard rate. Initiate at 2 units/hr. Measure patient's glucose q1hr. Adjust the insulin infusion rate as directed in Table 1. , Post-op/Post-Proc 24 hr isosorbide mononitrate 30 mg extended release oral tablet (8 sources) Nitrate Vasodilator Start: 04-04-2025 End: 04-05-2025 30 mg, Oral, DAILY, First dose on Fri04/04/25 at 0900, Until Discontinued, Do not crush or chew. May be divided in half., On hold since Fri04/04/2025 at 1520 until manually unheld Start: 02-10-2025 End: 03-15-2025 take 1 tablet by mouth once daily in the morning Isosorbide mononitrate 30 MG Tab SR 24 HR tablet XL Take 1 tablet by mouth daily every morning. 30 tablet 6 02/10/2025 03/15/2025 Discontinued (Stop Taking at Discharge) lidocaine 0.04 mg/mg medicated patch (1 source) Antiarrhythmic, Amide Local Anesthetic Start: 03-11-2025 End: 03-15-2025 apply 1 dose transdermal route every twenty-four hours 1 patch, Transdermal, Administer over 12 Hours, EVERY 24 HOURS, First dose on Fri03/11/25 at 1300, Until Discontinued, Apply to chest tube site . magnesium chloride 0.31094 meq/ml / potassium chloride 0.99983 meq/ml / sodium acetate 0.027 meq/ml / sodium chloride 0.0899 meq/ml / sodium gluconate 5.02 mg/ml injectable solution (2 sources) Start: 03-10-2025 End: 03-11-2025 500 mL, Intravenous, ONCE, 1 dose, On Fri03/11/25 at 0145, Fluid Bolus magnesium hydroxide 240 mg/ml oral suspension (1 source) Start: 03-14-2025 End: 03-15-2025 10 mL, Oral, DAILY, First dose on Fri03/14/25 at 0900, Until Discontinued, 10 mL concentrate = 30 mL regular magnesium oxide 400 mg oral tablet (1 source) Start: 05-30-2025 End: 05-30-2025 800 mg, Per NG tube, ADMINISTER DIRECTED, Starting on Fri05/30/25 at 0637, Until Fri05/30/25 at 1908, See admin instructions, For Magnesium 1.6 - 2.0, give 800 mg of Magnesium oxide. 50 ml magnesium sulfate 80 mg/ml injection (4 sources) Start: 05-30-2025 End: 05-30-2025 4 g, Intravenous, Administer over 4 Hours, ADMINISTER DIRECTED, Starting on Fri05/30/25 at 0637, Until Fri05/30/25 at 1908, Other, Magnesium Replacement Therapy, If Magnesium less than 1.6, give 4 g Magnesium Sulfate IVPB over 4 hours (may give over 1 hour if arrhythmias present). Start: 04-02-2025 End: 04-05-2025 4 g, Intravenous, Administer over 4 Hours, ADMINISTER DIRECTED, Starting on 04/02/25 at 0307, Until Fri04/05/25 at 1514, Other, Magnesium replacement therapy:, 1. If Magnesium 1.7-2.4, Give 4 g Magnesium Sulfate IVPB. 2. If Magnesium less than or equal to 1.6, Give 8g Magnesium Sulfate IVPB. 3. Recheck Magnesium level 4 hours after completion of infusion. Start: 03-10-2025 End: 03-11-2025 take 4 g intravenously every twelve hours 4 g, Intravenous, Administer over 4 Hours, EVERY 12 HOURS NON-STANDARD, 2 doses, First dose on Maria Luz 03/10/25 at 2100, Last dose on Fri03/11/25 at 0900, Hold if Magnesium level greater than 3., Post-op/Post-Proc Start: 03-10-2025 End: 03-15-2025 4 g, Intravenous, Administer over 4 Hours, ADMINISTER DIRECTED, Starting on Fri03/10/25 at 2017, Until Fri03/15/25 at 1626, Other, Magnesium replacement therapy:, 1. If Magnesium 1.7-2.4, Give 4 g Magnesium Sulfate IVPB. 2. If Magnesium less than or equal to 1.6, Give 8g Magnesium Sulfate IVPB. 3. Recheck Magnesium level 4 hours after completion of infusion., Post-op/Post-Proc meloxicam 15 mg oral tablet (20 sources) Nonsteroidal Anti-inflammatory Drug Start: 08-24-2021 End: 02-18-2022 take 1 tablet by mouth once daily Meloxicam 15 mg tablet Discontinued 15 mg PO DAILY August 24, 2021 1:00am February 18, 2022 8:52am Start: 03-02-2021 End: 08-13-2021 take 1 tablet by mouth once daily Meloxicam 15 mg tablet Discontinued 15 mg PO DAILY 21 0 March 02, 2021 12:00am August 13, 2021 9:23am Primary osteoarthritis of left knee Primary osteoarthritis of left shoulder Unilateral primary osteoarthritis, left knee Primary osteoarthritis, left shoulder Pain Do not take in conjunction with other NSAIDs. methocarbamol 500 mg oral tablet (3 sources) Muscle Relaxant Start: 03-11-2025 End: 04-04-2025 take 1 tablet by mouth every eight hours Methocarbamol 500 MG tablet Take 1 tablet by mouth every 8 hours for 5 days. 15 tablet 03/15/2025 04/04/2025 Discontinued (Medication Reconciliation (suppress cancel msg)) methylPREDNISolone acetate 40 mg/ml injectable suspension (4 sources) Corticosteroid Start: 11-03-2020 End: 11-03-2020 Depo-Medrol (methylprednisolone acetate) 40 mg/mL suspension for injection Discontinued 40 MG INTRAARTIC ONCE November 03, 2020 8:52am November 03, 2020 9:14am Start: 07-05-2020 End: 07-05-2020 Depo-Medrol (methylprednisol one acetate) 40 mg/mL suspension for injection Discontinued 40 MG INTRAARTIC ONCE July 05, 2020 8:03am July 05, 2020 8:25am Start: 05-17-2020 End: 05-17-2020 Depo-Medrol (methylprednisol one acetate) 40 mg/mL suspension for injection Discontinued 40 MG INTRAARTIC ONCE May 17, 2020 8:39am May 17, 2020 9:20am Start: 02-14-2020 End: 02-14-2020 Depo-Medrol (methylprednisol one acetate) 40 mg/mL suspension for injection Discontinued 40 MG INTRAARTIC ONCE February 14, 2020 8:28am February 14, 2020 9:21am Multi-Vitamins tablet 1 tablet (1 source) Start: 03-11-2025 End: 03-15-2025 Multi-Vitamins tablet 1 tablet mupirocin 0.02 mg/mg topical ointment (20 sources) RNA Synthetase Inhibitor Antibacterial Start: 03-10-2025 End: 03-10-2025 1 Application, Topical, HYPERBARIC WELDER DIVER TO PROCEDURE, 1 dose, Starting on Maria Luz 7//25 at 1020, Until Maria Luz 7//25 at 1055, Other, preoperative prophylaxis, DO NOT GIVE PRIOR TO MRSA SCREEN. Apply a generous amount of ointment onto the tip of a clean Q-tip. Insert the coated Q-tip about 1/4 of an inch into one nostril, gently wiping the inner surface of the nostril. Repeat using the opposite end of the Q-tip for the other nostril. Press the sides of the nose together and gently massage to spread the ointment throughout the inside of the nostrils., Pre-op/Pre-Proc Start: 07-31-2022 End: 02-03-2025 apply 0.5 g nasal route twice daily mupirocin (Bactroban Nasal) 2 % Ointment Indications: Preoperative examination Intranasal Approximately 0.5 gram applied into each nostril twice daily for 5 days ( Please dispense regular generic mupirocin ointment if nasal ointment is not available or not covered by insurance ) 20 g 07/31/2022 02/03/2025 Discontinued (Stop Taking at Discharge) Start: 06-08-2021 End: 07-03-2021 apply 0.5 g nasal route twice daily mupirocin (Bactroban Nasal) 2 % Ointment Intranasal Approximately 0.5 gram applied into each nostril twice daily for 5 days ( Please dispense regular generic mupirocin ointment if nasal ointment is not available or not covered by insurance 22 g 0 06/08/2021 07/03/2021 Discontinued (Stop Taking at Discharge) nebivolol 2.5 mg oral tablet (15 sources) Start: 03-27-2017 End: 10-01-2017 take 1 tablet by mouth at bedtime Nebivolol 2.5 MG tablet Discontinued 2.5 mg PO AT BEDTIME March 27, 2017 12:00am October 01, 2017 5:04pm 2 ml ondansetron 2 mg/ml injection (20 sources) Serotonin-3 Receptor Antagonist Start: 03-10-2025 End: 03-15-2025 4 mg, Intravenous, EVERY 4 HOURS NEEDED, Starting on Maria Luz 03/10/25 at 2017, Until Fri03/15/25 at 1626, Nausea / Vomiting, Post-op/Post-Proc Start: 08-14-2022 End: 02-03-2025 take 1 tablet by mouth every eight hours as needed ondansetron 4 MG tablet Take 1 tablet by mouth every 8 hours as needed for Nausea / Vomiting. 20 tablet 08/14/2022 02/03/2025 Discontinued (Stop Taking at Discharge) oxyCODONE hydrochloride 5 mg oral tablet (20 sources) Opioid Agonist Start: 04-02-2025 End: 04-05-2025 take 1 tablet by mouth every four hours as needed 5 mg, Oral, EVERY 4 HOURS NEEDED, Starting on Fri04/02/25 at 0307, Until Fri04/05/25 at 1514, Moderate Pain, Severe Pain, PRN for moderate pain or severe pain (DVPRS) or greater than 2.. Use first if PO/NG administration available. Start: 03-12-2025 End: 03-15-2025 take 1 tablet by mouth every four hours as needed 5 mg, Oral, EVERY 4 HOURS NEEDED, Starting on Fri03/12/25 at 1756, Until Fri03/15/25 at 1626, Moderate Pain, Severe Pain, PRN for moderate pain or severe pain (DVPRS) or CPOT>2. Use first if PO/NG administration available., Post-op/Post-Proc Start: 03-11-2025 End: 03-12-2025 take 1 tablet by mouth every four hours as needed 10 mg, Oral, EVERY 4 HOURS NEEDED, Starting on Fri03/11/25 at 2333, Until Fri03/12/25 at 1756, Moderate Pain, Severe Pain, PRN for moderate pain or severe pain (DVPRS) or CPOT>2. Use first if PO/NG administration available., Post-op/Post-Proc Start: 03-11-2025 End: 03-11-2025 take 1 dose by mouth once 10 mg, Oral, ONCE, 1 dose, O n Fri03/11/25 at 1815 Start: 03-11-2025 End: 03-11-2025 take 1 tablet by mouth every three hours as needed 5 mg, Oral, EVERY 3 HOURS NEEDED, Starting on Fri03/11/25 at 0547, Until Fri03/11/25 at 2333, Moderate Pain, Severe Pain, PRN for moderate pain or severe pain (DVPRS) or CPOT>2. Use first if PO/NG administration available., Post-op/Post-Proc Start: 08-14-2022 End: 04-04-2025 take 1 tablet by mouth every eight hours as needed for pain oxyCODONE 5 MG tablet Indications: S/P three vessel coronary artery bypass , Acute post-operative pain Take 1 tablet by mouth every 8 hours as needed for Moderate Pain or Severe Pain for up to 7 days. 15 tablet 03/15/2025 04/04/2025 Discontinued (Medication Reconciliation (suppress cancel msg)) Start: 08-14-2022 End: 08-14-2022 take 1 tablet by mouth every four hours as needed oxyCODONE (ROXICODONE) tablet 5 mg pantoprazole 40 mg delayed release oral tablet (20 sources) Proton Pump Inhibitor Start: 05-28-2025 End: 05-30-2025 take 40 mg by mouth once daily 40 mg, Oral, DAILY, First dose on 05/28/25 at 1115, Until Discontinued, Swallow whole; do not crush or chew., Indications: Continuation of Home Therapy Start: 04-02-2025 End: 04-05-2025 take 40 mg by mouth once daily 40 mg, Oral, DAILY, Fir st dose on 04/02/25 at 0900, Until Discontinued, Swallow whole; do not crush or chew., Indications: Continuation of Home Therapy Start: 03-11-2025 End: 03-15-2025 take 40 mg by mouth once daily at bedtime 40 mg, Oral, DAILY AT BEDTIME, First dose on Fri03/11/25 at 2100, Until Discontinued, Swallow whole; do not crush or chew., Indications: Continuation of Home Therapy Start: 04-27-2021 take 1 tablet by miryam th once daily pantoprazole 20 MG Tab tablet Take 1 tablet by mouth daily. 04/27/2021 Active Start: 11-03-2020 End: 02-09-2021 take 1 tablet by mouth once daily pantoprazole 20 MG Tab tablet Take 1 tablet by mouth daily. 04/27/2021 Active Start: 11-03-2020 End: 02-09-2021 Pantoprazole 20 mg tablet,de layed release (DR/EC) Discontinued NMA PO November 03, 2020 1:00am February 09, 2021 3:03pm polyethylene glycol 3350 [id number] mg powder for oral solution (2 sources) Osmotic Laxative Start: 04-02-2025 End: 04-05-2025 17 g, Oral, EVERY 12 HOURS, First dose on 04/02/25 at 0900, Until Discontinued, Hold for loose stools or positive bowel movement in the last 48 hours. Start: 03-11-2025 End: 03-15-2025 17 g, Oral, 2 TIMES DAILY, F irst dose on Fri03/11/25 at 0900, Until Discontinued, Hold for loose stools or positive bowel movement in the last 48 hours., Post-op/Post-Proc potassium bicarbonate 20 meq effervescent oral tablet (5 sources) Start: 05-30-2025 End: 05-30-2025 20-40 mEq, Per NG tube, ADMINISTER DIRECTED, Starting on 05/30/25 at 0637, Until 05/30/25 at 1908, Other, See administration instructions, If SCr 2.0 - 2.5 mg/dL 1. For Potassium 3.6-4.0, give 20 mEq potassium via enteral route. 2. If Potassium less than 3.6, give 40 mEq potassium via enteral route, recheck in AM. If SCr greater than 2.5 and potassium less than 4.0, Contact MD/LIP for replacement order Do not swallow whole. Dissolve completely in 3-4 ounces of water or cold juice before drinking. If administering via J tube, dilute in sterile water, wait for tablet to stop fizzing, swirl the solution and draw into a syringe suitable for attaching to the tube. After administration, flush tube with 15-30 ml water. Start: 04-02-2025 End: 04-05-2025 20-60 mEq, Oral, ADMINISTER DIRECTED, Starting on 04/02/25 at 0311, Until 04/05/25 at 1514, Other, See administration instructions, 1. If Creatinine less than 2.0 mg/dL and/or urine output greater than 30 mL/hour. 2. If Potassium is 4.1-4.4, give 20 mEq Potassium Chloride oral. 3. If Potassium is 3.6-4.0, give 40 mEq Potassium Chloride oral. 4. If Potassium less than 3.6, give 60 mEq Potassium Chloride orally, recheck in 8 hours. 5. If Potassium low, replace Magnesium first if indicated. Do not swallow whole. Dissolve completely in 3-4 ounces of water or cold juice before drinking. If administering via J tube, dilute in sterile water, wait for tablet to stop fizzing, swirl the solution and draw into a syringe suitable for attaching to the tube. After administration, flush tube with 15-30 ml water. Start: 03-12-2025 End: 03-15-2025 20-60 mEq, Oral, ADMINISTER DIRECTED, Starting on 03/12/25 at 1956, Until Tu03/15/25 at 1626, Other, See administration instructions, 1. If Creatinine less than 2.0 mg/dL and/or urine output greater than 30 mL/hour. 2. If Potassium is 4.1-4.4, give 20 mEq Potassium Chloride oral. 3. If Potassium is 3.6-4.0, give 40 mEq Potassium Chloride oral. 4. If Potassium less than 3.6, give 60 mEq Potassium Chloride orally, recheck in 8 hours. 5. If Potassium low, replace Magnesium first if indicated. Do not swallow whole. Dissolve completely in 3-4 ounces of water or cold juice before drinking. If administering via J tube, dilute in sterile water, wait for tablet to stop fizzing, swirl the solution and draw into a syringe suitable for attaching to the tube. After administration, flush tube with 15-30 ml water., Post-op/Post-Proc microencapsulated potassium chloride 20 meq extended release oral tablet (7 sources) Start: 05-28-2025 End: 05-30-2025 take 60 mEq by mouth every eight hours 40-60 mEq, Oral, ADMINISTER DIRECTED, Starting on 05/28/25 at 1012, Until 05/30/25 at 0637, See admin instructions, If Cr less than 2.0 mg/dL 1. For Potassium 3.6 - 4.0, give 40 mEq of Potassium Chloride orally, recheck in the AM. 2. For Potassium less than 3.6, give 60 mEq Potassium Chloride orally, recheck in 8 hours. 3. If potassium is low please administer magnesium first if indicated. Start: 04-02-2025 End: 04-05-2025 take 60 mEq by mouth every eight hours 20-60 mEq, Oral, ADMINISTER DIRECTED, Starting on 04/02/25 at 0311, Until Tu04/05/25 at 1514, See admin instructions, 1. If Creatinine less than 2.0 mg/dL and/or urine output greater than 30 mL/hour. 2. If Potassium is 4.1-4.4, give 20 mEq Potassium Chloride oral. 3. If Potassium is 3.6-4.0, give 40 mEq Potassium Chloride oral. 4. If Potassium less than 3.6, give 60 mEq Potassium Chloride orally, recheck in 8 hours. 5. If Potassium low, replace Magnesium first if indicated. Start: 03-16-2025 End: 04-04-2025 take 2 tablets by mouth once daily Potassium chloride 20 MEQ Tab CR tablet Take 2 tablets by mouth daily for 5 days. Take potasium along with Lasix. Stop taking if you no longer on Lasix . 10 tablet 03/16/2025 04/04/2025 Discontinued (Medication Reconciliation (suppress cancel msg)) Start: 03-14-2025 End: 03-15-2025 20 mEq, Oral, DAILY, First d ose on Fri03/14/25 at 0900, Until Discontinued Start: 03-12-2025 End: 03-15-2025 take 60 mEq by mouth every eight hours 20-60 mEq, Oral, ADMINISTER DIRECTED, Starting on 03/12/25 at 1956, Until Fri03/15/25 at 1626, See admin instructions, 1. If Creatinine less than 2.0 mg/dL and/or urine output greater than 30 mL/hour. 2. If Potassium is 4.1-4.4, give 20 mEq Potassium Chloride oral. 3. If Potassium is 3.6-4.0, give 40 mEq Potassium Chloride oral. 4. If Potassium less than 3.6, give 60 mEq Potassium Chloride orally, recheck in 8 hours. 5. If Potassium low, replace Magnesium first if indicated., Post-op/Post-Proc Start: 03-12-2025 End: 03-15-2025 20 mEq, Oral, ADMINISTER DIRECTED, Starting on Fri03/12/25 at 1956, Until Fri03/15/25 at 1626, See admin instructions, RENAL DOSAGE, 1. If Creatinine 2.0-2.5 mg/dL and/or urine output less than 30 mL/hour. 2. Potassium Less than 3.6, give 20 mEq Potassium Chloride, recheck in 8 hours. 3. If Creatinine greater than 2.5 consult critical care team for Potassium less than 4.0 for replacement orders. 4. If Potassium low, replace magnesium first if indicated., Post-op/Post-Proc povidone-iodine (3M SKIN and NASAL ANTISEPTIC) 5 % topical solution 1 Application (1 source) Start: 03-10-2025 End: 03-10-2025 1 Application, Nasal, HYPERBARIC WELDER DIVER TO PROCEDURE, 1 dose, Starting on Maria Luz 03/10/25 at 1020, Until Maria Luz 7 at 1055, Other, preoperative prophylaxis, Administer 60 minutes prior to procedure., Pre-op/Pre-Proc 100 ml propofol 10 mg/ml injection (1 source) General Anesthetic Start: 03-10-2025 End: 03-10-2025 0-50 mcg/kg/min 102 kg Order-specific weight (0-30.6 mL/hr), Intravenous, CONTINUOUS, Starting on Maria Luz 03/10/25 at 2030, Until Maria Luz 7 at 2129, Assess analgesic needs and treat pain first prior to sedation titration. Initiate infusion at 5 mcg/kg/min and titrate up by 5 mcg/kg/min no more frequently than every 5 minutes to maintain target arousal. If below target arousal, titrate down by 5 mcg/kg/min every 5 minutes to the lowest rate needed to achieve target arousal. Do not administer by bolus dosing. Notify prescriber for inability to achieve target arousal at maximum dose of ordered range or if at target arousal but not meeting other clinical parameters. If below target arousal for two consecutive assessments, contact the prescriber for revised titration parameters or an additional spontaneous awakening trial. Extravasation Risk, ICU 10 ml ropivacaine hydrochloride 10 mg/ml injection (4 sources) Amide Local Anesthetic Start: 04-29-2022 End: 04-29-2022 ropivacaine (NAROPIN) 1 % injection 4 mL Start: 01-08-2022 End: 01-08-2022 ropivacaine (NAROPIN) 1 % in jection 4 mL Ropivacaine HCl-NaCl 0.2-0.9 % On-Q pump (1 source) Start: 08-14-2022 End: 08-14-2022 Ropivacaine HCl-NaCl 0.2-0.9 % On-Q pump sennosides, retirement 8.6 mg oral tablet (3 sources) Start: 04-02-2025 End: 04-05-2025 take 8.6 mg by mouth once daily 8.6 mg, Oral, DAILY, First dose on 04/02/25 at 0900, Until Discontinued Start: 03-15-2025 End: 03-29-2025 take 1 tablet by mouth once daily Senna 8.6 MG tablet Take 1 tablet by mouth daily for 14 days. Stop taking if you have loose stools. 14 tablet 03/15/2025 03/29/2025 Active Start: 03-11-2025 End: 03-15-2025 8.6 mg, Oral, EVERY 12 HOURS , First dose on Fri03/11/25 at 0900, Until Discontinued, Hold for loose stools or positive bowel movement in the last 48 hours., Post-op/Post-Proc 250 ml sodium chloride 9 mg/ml injection (8 sources) Start: 05-28-2025 End: 05-30-2025 take 1.5 mL intravenously every hour 1.5 mL/kg/hr 97.7 kg Dosing weight (146.55 mL/hr, rounded to 146.6 mL/hr), Intravenous, CONTINUOUS, Starting on 05/30/25 at 1015, Until 05/30/25 at 1614, Administer for Post Bin Piler Hydration to Prevent Acute Kidney Injury. , Post-op/Post-Proc Start: 04-04-2025 End: 04-04-2025 1-100 mL, Intravenous, ONCE NEEDED, 1 dose, Starting on Fri04/04/25 at 1258, Until 04/04/25 at 1340, Flush, MR Procedure Start: 04-02-2025 End: 04-02-2025 take 1.5 mL intravenously every hour 1.5 mL/kg/hr 97.5 kg Dosing weight (146.25 mL/hr, rounded to 146.3 mL/hr), Intravenous, CONTINUOUS, Starting on 04/02/25 at 1345, Until 04/02/25 at 1944, Administer for Post Bin Piler Hydration to Prevent Acute Kidney Injury. , Post-op/Post-Proc Start: 03-10-2025 End: 03-12-2025 Intravenous, at 1 mL/hr, CONTINUOUS, Starting on Maria Luz 03/10/25 at 2030, Until 03/12/25 at 0451, Per pressure bags for all transduced lines., ICU Start: 03-10-2025 End: 03-15-2025 Intravenous, at 20 mL/hr, NEEDED, Starting on Fri03/10/25 at 2017, Until Fri03/15/25 at 1626, Carrier Fluid - See Admin. Inst, 0.9NS to be used as carrier fluid for intermittent small volume or piggyback medication administration as needed. Infusion rate of the carrier fluid should be set at 20 mL/hr unless the rate as the intermittent medication is less than 20 mL/hr. For intermittent medications with a rate less than 20 mL/hr set the carrier fluid at that rate of the intermittent or piggy back medication., Post-op/Post-Proc Start: 02-03-2025 End: 02-03-2025 take 75 mL intravenously every hour 75 mL/hr, Intravenous, CONTINUOUS, Starting on Fri02/03/25 at 1230, Until Fri02/03/25 at 1429, Administer for Post Bin Piler Hydration to Prevent Acute Kidney Injury. , Post-op/Post-Proc Start: 02-03-2025 End: 02-03-2025 Intravenous, at 100 mL/hr, CONTINUOUS, Starting on Fri02/03/25 at 1000, Until Fri02/03/25 at 1631, Pre-op/Pre-Proc Sulfur Hexafluoride Microsph (Lumason) 60.7-25 MG 2 mL (1 source) Start: 05-30-2025 End: 05-30-2025 2 mL, Intravenous, ONCE, 1 dose, On 05/30/25 at 1230, FOR ECHO PROCEDURE ONLY - after reconstitution is 2mL administered as in intravenous bolus injection during echocardiography, during a single examination, a second injection of 2 mL may be administered to prolong contrast enhancement. Follow each Lumason injection with a intravenous flush using 5 mL of 0.9% sodium chloride injection., Echo Procedure traMADol hydrochloride 50 mg oral tablet (1 source) Opioid Agonist Start: 04-05-2021 End: 07-03-2021 take 1 tablet by mouth three times daily for pain traMADol 50 MG tablet take 1 tablet by mouth three times a day if needed for pain 0 04/05/2021 07/03/2021 Discontinued (Stop Taking at Discharge) 1 ml triamcinolone acetonide 40 mg/ml prefilled syringe (7 sources) Corticosteroid Start: 04-29-2022 End: 04-29-2022 triamcinolone (KENALOG-40) injection 1 mL Start: 01-08-2022 End: 01-08-2022 triamcinolone (KENALOG-40) i njection 1 mL Start: 05-17-2020 End: 05-17-2020 Kenalog (triamcinolone aceto nide) 40 mg/mL suspension for injection Discontinued 40 MG INTRAARTIC ONCE 1 May 17, 2020 8:39am May 17, 2020 9:17am Start: 07-19-2019 End: 07-19-2019 Kenalog (triamcinolone aceto nide) 40 mg/mL suspension for injection Discontinued 80 MG INTRAARTIC ONCE 2 July 19, 2019 9:18am July 19, 2019 10:22am Start: 04-08-2019 End: 04-08-2019 Kenalog (triamcinolone aceto nide) 40 mg/mL suspension for injection Discontinued 80 MG INTRAARTIC ONCE 2 April 08, 2019 12:39pm April 08, 2019 3:17pm Vancomycin HCl in NaCl (Vancocin) 1,250 mg 287.5 ml premade IVPB (2 sources) Start: 03-10-2025 End: 03-11-2025 take 1250 mg intravenously every twelve hours 1,250 mg, Intravenous, Administer over 2 Hours, EVERY 12 HOURS NON-STANDARD, 1 dose, First dose on Maria Luz 03/10/25 at 2215, For 1 dose and 24 hour duration of antibiotic. Pharmacists to adjust., Post-op/Post-Proc Start: 03-10-2025 End: 03-10-2025 1,250 mg, Intravenous, Admin ister over 1 Hours, HYPERBARIC WELDER DIVER TO PROCEDURE, 1 dose, Starting on Maria Luz 03/10/25 at 0000, Until Maria Luz 03/10/25 at 1154, Other, Surgical Prophylaxis, Initiate antibiotic based on infusion time to complete administration 30-60 minutes prior to surgical incision., Pre-op/Pre-Proc varenicline 1 mg oral tablet (20 sources) Partial Cholinergic Nicotinic Agonist Start: 07-23-2018 End: 03-05-2019 take 1 tablet by mouth twice daily, then take 1 tablet by mouth once Varenicline Tartrate (Chantix Continuing Month Box) 1 mg tablet Discontinued 1 mg PO TWICE A DAY July 23, 2018 1:00March 05, 2019 4:02pm Start: 10-24-2017 End: 02-04-2018 take 1 tablet by mouth once Varenicline Tartrate (Saucedo tix Starting Month Box) 0.5 mg (11)- 1 mg (42) tablets,dose pack Discontinued 0 PO per package directions 53 October 24, 2017 1:00am February 04, 2018 9:13am PO PER PKG DIR Problems Active Problems Problem Classification Problem Date Documented Date Episodic/Chronic Acute myocardial infarction (9 sources) Acute myocardial infarction; Translations: [Acute myocardial infarction, unspecified] Onset: 05-23-2009 Resolved: 05-30-2025 10-23-2011 Chronic Congestive heart failure; nonhypertensive (3 sources) Systolic heart failure; Translations: [Unspecified systolic (congestive) heart failure] Onset: 04-02-2025 04-02-2025 Chronic Coronary atherosclerosis and other heart disease (20 sources) Coronary arteriosclerosis; Translations: [Atherosclerotic heart disease of [place] coronary artery without angina pectoris] Onset: 05-23-2009 Chronic Comment on above: anterior VT (2008), stenting to LAD Coronary atherosclerosis and other heart disease (20 sources) Patient post percutaneous transluminal coronary angioplasty; Translations: [Coronary angioplasty status] Onset: 05-09-2009 05-23-2009 Episodic Comment on above: PCI/LILIANA to mid LAD 0 05/23/09 Disorders of lipid metabolism (20 sources) Hyperlipidemia; Translations: [Hyperlipidemia, unspecified] Onset: 09-15-2007 09-15-2007 Chronic Diverticulosis and diverticulitis (15 sources) Diverticulitis; Translations: [Diverticulitis of intestine, part unspecified, without perforation or abscess without bleeding] 03-19-2018 Chronic Comment on above: Last flareup was mid November Esophageal disorders (1 source) Gastroesophageal reflux disease; Translations: [Gastro-esophageal reflux disease without esophagitis] Chronic Essential hypertension (16 sources) Essential hypertension; Translations: [Essential (primary) hypertension] Chronic Comment on above: NO MEDS Inflammatory conditions of male genital organs (1 source) Inflammatory disorder of penis; Translations: [Other inflammatory disorders of penis] Onset: 03-04-2008 03-04-2008 Chronic Malaise and fatigue (4 sources) Physical deconditioning; Translations: [Other malaise] Onset: 03-10-2025 03-15-2025 Episodic Nonspecific chest pain (20 sources) Chest pain; Translations: [Chest pain, unspecified] Onset: 04-07-2025 02-27-2022 Episodic Osteoarthritis (20 sources) Arthritis of left glenohumeral joint; Translations: [Primary osteoarthritis, left shoulder] Onset: 05-07-2021 Chronic Other aftercare (1 source) Surgical follow-up; Translations: [Encounter for follow-up examination after completed treatment for conditions other than malignant neoplasm] Episodic Other and unspecified benign neoplasm (15 sources) History of polyp of colon; Translations: [Personal history of colonic polyps] 08-22-2021 Episodic Other circulatory disease (3 sources) Vascular disorder; Translations: [Other disorders of arteries, arterioles and capillaries in diseases classified elsewhere] Onset: 03-08-2025 03-04-2025 Chronic Other circulatory disease (1 source) Other disorders of arteries, arterioles and capillaries in diseases classified elsewhere; Translations: [Other disorders of arteries, arterioles and capillaries in diseases classified elsewhere] Onset: 03-08-2025 Chronic Other circulatory disease (2 sources) Vascular disorder 03-04-2025 Episodic Other connective tissue disease (1 source) History of repair of hip joint; Translations: [Presence of right artificial hip joint] Chronic Other connective tissue disease (1 source) History of left shoulder arthroplasty; Translations: [Presence of left artificial shoulder joint] Chronic Other connective tissue disease (20 sources) History of operative procedure on shoulder; Translations: [Presence of unspecified artificial shoulder joint] Onset: 08-14-2022 Chronic Other lower respiratory disease (4 sources) Interstitial lung disease; Translations: [Interstitial pulmonary disease, unspecified] 05-16-2025 Chronic Other lower respiratory disease (2 sources) Interstitial pulmonary disease, unspecified; Translations: [Interstitial pulmonary disease, unspecified] Onset: 05-04-2025 Chronic Other lower respiratory disease (4 sources) Dyspnea on exertion; Translations: [Other forms of dyspnea] 02-03-2025 Episodic Other nervous system disorders (2 sources) Acute postoperative pain; Translations: [Other acute postprocedural pain] Episodic Other nervous system disorders (2 sources) Other acute postprocedural pain; Translations: [Other acute postprocedural pain] Onset: 03-10-2025 Episodic Other non-traumatic joint disorders (7 sources) Shoulder pain; Translations: [Pain in left shoulder] Episodic Other non-traumatic joint disorders (2 sources) Pain in right hip joint; Translations: [Pain in right hip] Episodic Other non-traumatic joint disorders (1 source) Chronic pain of left upper limb; Translations: [Pain in left shoulder] Episodic Other nutritional; endocrine; and metabolic disorders (1 source) Body mass index 30+ - obesity; Translations: [Body mass index (BMI) 30.0-30.9, adult] Chronic Other nutritional; endocrine; and metabolic disorders (20 sources) Obese class I; Translations: [Obesity, unspecified] Onset: 07-21-2023 07-21-2023 Chronic Other nutritional; endocrine; and metabolic disorders (1 source) Personal history of other endocrine, nutritional and metabolic disease; Translations: [History of hyperlipidemia] Onset: 05-27-2025 Episodic Other screening for suspected conditions (not mental disorders or infectious disease) (2 sources) Abnormal findings on diagnostic imaging of other specified body structures; Translations: [Abnormal findings on diagnostic imaging of other specified body structures] Onset: 03-08-2025 Chronic Other screening for suspected conditions (not mental disorders or infectious disease) (9 sources) Raised cardiac enzyme or marker; Translations: [Other specified abnormal findings of blood chemistry] Onset: 03-08-2025 04-01-2025 Episodic Other upper respiratory infections (1 source) Chronic sinusitis, unspecified; Translations: [Chronic sinusitis, unspecified] Onset: 12-14-2024 Chronic Residual codes; unclassified (15 sources) Obstructive sleep apnea syndrome; Translations: [Obstructive sleep apnea (adult) (pediatric)] 03-19-2018 Chronic Comment on above: does not use BiPAP Residual codes; unclassified (2 sources) Hypersomnia; Translations: [Hypersomnia, unspecified] 05-16-2025 Chronic Residual codes; unclassified (2 sources) Hypersomnia, unspecified; Translations: [Hypersomnia, unspecified] Onset: 05-04-2025 Chronic Residual codes; unclassified (14 sources) Bilateral lower limb edema; Translations: [Localized edema] 02-18-2022 Episodic Residual codes; unclassified (1 source) Localized edema; Translations: [Edema] Episodic Residual codes; unclassified (15 sources) Patient encounter status; Translations: [Encounter for procedure for purposes other than remedying health state, unspecified] Onset: 03-10-2025 Episodic Residual codes; unclassified (9 sources) History of operative procedure on shoulder; Translations: [Other specified postprocedural states] Episodic Residual codes; unclassified (2 sources) Other specified postprocedural states; Translations: [Other specified postprocedural states] Onset: 05-12-2025 Episodic Skin and subcutaneous tissue infections (6 sources) Cellulitis; Translations: [Cellulitis, unspecified] Onset: 04-07-2025 03-18-2025 Episodic Spondylosis; intervertebral disc disorders; other back problems (12 sources) Lumbar spondylosis; Translations: [Spondylosis without myelopathy or radiculopathy, lumbar region] Chronic Substance-related disorders (4 sources) Smoker; Translations: [Nicotine dependence, unspecified, uncomplicated] Onset: 04-02-2025 Chronic Past or Other Problems Problem Classification Problem Date Documented Date Episodic/Chronic Disorders of teeth and jaw (1 source) Arthralgia of right temporomandibular joint; Translations: [Arthralgia of right temporomandibular joint] Onset: 08-02-2024 Episodic Other lower respiratory disease (2 sources) Other forms of dyspnea; Translations: [Other forms of dyspnea] Onset: 02-10-2025 Episodic Unclassified (3 sources) Onset: 09-03-2023 09-03-2023 Viral infection (1 source) Verruca vulgaris; Translations: [Other viral warts] Onset: 09-15-2007 09-15-2007 Episodic Results Test Name Value Interpretation Reference Range Facility INVASIVE CARDIOVASCULAR PROC [facility] 05-31-2025 INVASIVE CARDIOVASCULAR PROCEDURE Conclusions - 2/3 patent bypass grafts. ARORA-LAD is patent. SVG-OM is patent. SVG-RPDA occluded. - 95% stenosis tandem lesions in the proximal SVG-OM graft successfully treated with a 2.5 x 28 mm Synergy XD drug-eluting stent. 80% stenosis at the ostium of the SVG-OM graft successfully treated with 3.0 x 20 mm Synergy XD drug-eluting stent. - [place] three vessel disease as outlined below. - Elevated LVEDP Access - left radial artery with TR band hemostasis Hemodynamics - LVEDP 22 mmHg - No gradient on LV to AO pullback Coronary angiography - RCA: dominant, moderate in size. There is 90% stenosis in the proximal vessel. Mild diffuse disease in the remainder of the vessel. - LM: large in caliber, angiographically normal - LCx: nondominant, moderate in size. 90% stenosis in the proximal segment. The vessel gives off a large OM branch with 90% stenosis in the proximal OM. - LAD: moderate in size with mild diffuse disease. There is a 95% proximal LAD lesion. Competitive flow is seen in the mid-distal segment that is also supplied by the ARORA-graft. Bypass angiography - ARORA-LAD is patent - SVG-OM is patent with 90% stenosis in the proximal segment and 80% stenosis at the ostium. - SVG-RPDA is occluded. PCI: mid SVG-OM (2.5 x 28 mm Synergy XD drug eluting stent. Ostial SVG-OM (3.0 x 20 mm Synergy XD drug eluting stent. Recommendations - DAPT (aspirin + P2Y12i) for at least 6 months, preferably one year. - SAPT indefinitely - Cardiac rehab - GDMT for CAD per primary ship's cook and inpatient team Table formatting from the original result was not included. Images from the original result were not included. [facility] Invasive [facility] Cath Procedure Ordering Physician: NICOLE SALINAS Order #: [id number] Study Date: 05/30/2025 Patient Information Name MRN Description Meir Ramos Randell [id number] y.o. male Location Name Address [address] [id number] Physicians Panel Physicians Referring Physician Case Authorizing Physician Anirudh Rutledge MD (Primary) Provider Not In System Nicole Salinas MD, PhD Gabo Shahid DO (Fellow) Jamar Farrell DO (Fellow) Procedures CORONARY ANGIOGRAM WITH LEFT HEART CATH CORONARY BYPASS GRAFT ANGIOGRAM ULTRASOUND GUIDED ACCESS STENT-BYPASS GRAFT Indications NSTEMI (non-ST elevated myocardial infarction) [I21.4 (ICD-10-CM)] Coronary artery disease involving [place] coronary artery of [place] heart with unstable angina pectoris [I25.110 (ICD-10-CM)] Conclusion Conclusions - 2/3 patent bypass grafts. ARORA-LAD is patent. SVG-OM is patent. SVG-RPDA occluded. - 95% stenosis tandem lesions in the proximal SVG-OM graft successfully treated with a 2.5 x 28 mm Synergy XD drug-eluting stent. 80% stenosis at the ostium of the SVG-OM graft successfully treated with 3.0 x 20 mm Synergy XD drug-eluting stent. - [place] three vessel disease as outlined below. - Elevated LVEDP Access - left radial artery with TR band hemostasis Hemodynamics - LVEDP 22 mmHg - No gradient on LV to AO pullback Coronary angiography - RCA: dominant, moderate in size. There is 90% stenosis in the proximal vessel. Mild diffuse disease in the remainder of the vessel. - LM: large in caliber, angiographically normal - LCx: nondominant, moderate in size. 90% stenosis in the proximal segment. The vessel gives off a large OM branch with 90% stenosis in the proximal OM. - LAD: moderate in size with mild diffuse disease. There is a 95% proximal LAD lesion. Competitive flow is seen in the mid-distal segment that is also supplied by the ARORA-graft. Bypass angiography - ARORA-LAD is patent - SVG-OM is patent with 90% stenosis in the proximal segment and 80% stenosis at the ostium. - SVG-RPDA is occluded. PCI: mid SVG-OM (2.5 x 28 mm Synergy XD drug eluting stent. Ostial SVG-OM (3.0 x 20 mm Synergy XD drug eluting stent. Recommendations - DAPT (aspirin + P2Y12i) for at least 6 months, preferably one year. - SAPT indefinitely - Cardiac rehab - GDMT for CAD per primary ship's cook and inpatient team Medical History Diagnosis Date Comment Source Arthritis CAD (coronary artery disease) Cardiac angina Congestive heart failure Diverticulitis GERD (gastroesophageal reflux disease) Hyperlipidemia VT (myocardial infarction) Medical History - Pertinent Negatives Pertinent Negative Date Comment Source Arrhythmia 02/22/2025 Atrial fibrillation 02/22/2025 Cardiomyopathy 02/22/2025 Claudication 02/22/2025 Congenital heart disease 02/22/2025 COPD (chronic obstructive pulmonary disease) 02/03/2025 Diabetes mellitus 02/03/2025 Essential hypertension, benign 02/03/2025 Hepatitis 02/03/2025 Hyperthyroidism 02/22/2025 Hypothyroidism 02/22/2025 Liver disease 02/03/2025 Migraine 02/03/2025 GO (obstructive sleep apnea) 02/03/2025 Pacemaker 02/03/2025 Renal disease 02/03/2025 Seizure 02/03/2025 S (more content not included)... Normal [facility] ACT* LOW RANGE, POCon 2024 ACT LOW RANGE, POC [facility] Comment on above: Out of Range High. The test result is outside clinical range and should not be used for patient-management decisions. Test performed at address of the patient encounter. [facility] ACT LOW RANGE, POC [facility] Comment on above: Out of Range High. The test result is outside clinical range and should not be used for patient-management decisions. Test performed at address of the patient encounter. [facility] ACT LOW RANGE, POC 292.0 High [facility] Interpretation and review of laboratory results Abnormal [facility] Test performed at address of the patient encounter. [facility] CARDIAC RHYTHMon 05-30-2025 [facility] CBC,PLATELETSon 05-30-2025 Erythrocyte distribution width (RBC) [Ratio] 12.8 % 10.9 - 14.3 % [facility] Hematocrit (Bld) [Volume fraction] 40.8 % 39.6 - 48.8 % [facility] Hemoglobin (Bld) [Mass/Vol] 13.6 g/dL 13.4 - 16.8 g/dL [facility] Interpretation and review of laboratory results Abnormal [facility] MCH (RBC) [Entitic mass] 29.6 pg 26.1 - 33.3 pg [facility] MCHC (RBC) [Mass/Vol] 33.3 g/dL 31.9 - 36.5 g/dL [facility] MCV (RBC) [Entitic vol] 88.7 fL 79.0 - 94.5 fL [facility] Platelet mean volume (Bld) [Entitic vol] 8.5 fL Low 8.7 - 12.3 fL [facility] Platelets (Bld) [#/Vol] 216 10*3/uL 146 - 337 K/uL [facility] RBC (Bld) [#/Vol] 4.60 10*6/uL [facility] WBC (Bld) [#/Vol] 11.86 10*3/uL High 3.73 - 10.10 K/uL [facility] Hematocrit (Bld) [Volume fraction] 40.8 % Normal 39.6-48.8 [facility] Comment on above: Performed By: #### I CA #### [facility] (DEFAULT) [address] [place] [id number] Hemoglobin (Bld) [Mass/Vol] 13.6 g/dL Normal 13.4-16.8 [facility] Comment on above: Performed By: #### I CA #### [facility] (DEFAULT) [address] [place] [id number] MCV (RBC) [Entitic vol] 88.7 fL Normal 79.0-94.5 [facility] Comment on above: Performed By: #### I CA #### [facility] (DEFAULT) [address] [id number] Mean Cell Hgb 29.6 pg Normal 26.1-33.3 [facility] Comment on above: Performed By: #### I CA #### [facility] (DEFAULT) [address] [place] [address] 51332 Mean Cell Hgb Conc 33.3 g/dL Normal 31.9-36.5 [facility] Comment on above: Performed By: #### I CA #### [facility] (DEFAULT) [address] [place] [address] 28434 Platelet mean volume (Bld) [Entitic vol] 8.5 fL Low 8.7-12.3 [facility] Comment on above: Performed By: #### I CA #### [facility] (DEFAULT) [address] [place] [address] 00521 Platelets (Bld) [#/Vol] 216 10*3/uL Normal 146-337 [facility] Comment on above: Performed By: #### I CA #### [facility] (DEFAULT) [address] [place] [address] 62327 RBC (Bld) [#/Vol] 4.60 10*6/uL Normal 4.38-5.83 [facility] Comment on above: Performed By: #### I CA #### [facility] (DEFAULT) [address] [place] [address] 32116 RBC Distribution 12.8 % Normal 10.9-14.3 [facility] Comment on above: Performed By: #### I CA #### [facility] (DEFAULT) [address] [place] [address] 56037 WBC (Bld) [#/Vol] 11.86 10*3/uL High 3.73-10.10 [facility] Comment on above: Performed By: #### I CA #### [facility] (DEFAULT) [address] [place] [address] 12610 CHEM 7 (LYTES,BUN,CREA,GLUC) on 05-30-2025 Anion gap [Moles/Vol] 12 mmol/L 7 - 17 mmol/L [facility] Chloride [Moles/Vol] 106 mmol/L 98 - 10 8 mmol/L [facility] CO2 [Moles/Vol] 25 mmol/L 21 - 31 mmol/L [facility] Creatinine [Mass/Vol] 1.02 mg/dL 0.70 - 1.30 mg/dL [facility] eGFR, CKD-EPI, Male 80 - PINF [facility] Comment on above: Reported eGFR is bas ed on the CKD-EPI 2020 equation using creatinine, age, and sex. Glucose [Mass/Vol] 96 mg/dL 70 - 179 mg/dL [facility] Osmolality Calc [Osmolality] 291 [facility] Potassium [Moles/Vol] 4.0 mmol/L 3.5 - 5.0 mmol/L [facility] Sodium [Moles/Vol] 139 mmol/L 135 - 145 mmol/L [facility] Urea nitrogen [Mass/Vol] 15 mg/dL 7 - 25 mg/dL [facility] Urea nitrogen/Creatinine [Mass ratio] 15 mg/mg [facility] Anion gap [Moles/Vol] 12 mmol/L Normal 7-17 [facility] Comment on above: Performed By: #### S URGP #### [facility] (DEFAULT) [address] [place] [address] 00025 Chloride [Moles/Vol] 106 mmol/L Normal 98-108 [facility] Comment on above: Performed By: #### S URGP #### [facility] (DEFAULT) [address] [place] [address] 45056 CO2 [Moles/Vol] 25 mmol/L Normal 21-31 [facility] Comment on above: Performed By: #### S URGP #### [facility] (DEFAULT) [address] [place] [address] 66111 Creatinine [Mass/Vol] 1.02 mg/dL Normal 0.70-1.30 [facility] Comment on above: Performed By: #### S URGP #### [facility] (DEFAULT) [address] [place] [address] 69705 GFR/1.73 sq M.predicted among non-blacks MDRD (S/P/Bld) [Vol rate/Area] 80 mL/min/{1.73_m2} Normal >=60 [facility] Comment on above: Result Comment: Repo rted eGFR is based on the CKD-EPI 2020 equation using creatinine, age, and sex. Performed By: #### S URGP #### [facility] (DEFAULT) [address] [place] [address] 20558 Glucose [Mass/Vol] 96 mg/dL Normal Nonfastin -179 mg/dL; Fastin-99 [facility] Comment on above: Performed By: #### S URGP #### [facility] (DEFAULT) [address] [place] [address] 01560 Osmolality [Osmolality] 291 mosm/kg Normal 278-305 [facility] Comment on above: Performed By: #### S URGP #### [facility] (DEFAULT) [address] [place] [address] 79143 Potassium [Moles/Vol] 4.0 mmol/L Normal 3.5-5.0 [facility] Comment on above: Performed By: #### S URGP #### [facility] (DEFAULT) [address] [place] [address] 30789 Sodium [Moles/Vol] 139 mmol/L Normal 135-145 [facility] Comment on above: Performed By: #### S URGP #### [facility] (DEFAULT) [address] [place] [address] 97117 Urea nitrogen [Mass/Vol] 15 mg/dL Normal 7-25 [facility] Comment on above: Performed By: #### S URGP #### [facility] (DEFAULT) [address] [place] [address] 42727 Urea nitrogen/Creatinine [Mass ratio] 15 mg/mg Normal [facility] Comment on above: Performed By: #### S URGP #### [facility] (DEFAULT) [address] [place] [address] 40333 Cardiac catheterization stud yon 05-30-2025 [facility] Radiology Study observation (narrative) [facility] ECHOCARDIOGRAM LIMITED/FOLLO WUPon 05-30-2025 ECHOCARDIOGRAM LIMITED/FOLLOWUP Limited echo for ventricular function Left ventricular chamber size is mildly enlarged at end-systole. Persistent inferior/inferolateral wall motion abnormalities, as previously described, consistent with remote infarction. No definitive new wall motion abnormalities. Global function mildly reduced, ejection fraction +/-48%. Right ventricle visually appears normal in size with normal function Table formatting from the original result was not included. Images from the original result were not included. [facility] Facility [facility] Patient Information Patient Name Meir Landrum Legal Sex Male Indication for Exam Priority: Routine Dx: Chest pain, unspecified type [R07.9 (ICD-10-CM)] Order Question Reason for Exam 70M CABG 03/2025 and PCI 2008, new chest pain, eval for new WMA Interpretation Summary Result History is available. Limited echo for ventricular function Left ventricular chamber size is mildly enlarged at end-systole. Persistent inferior/inferolateral wall motion abnormalities, as previously described, consistent with remote infarction. No definitive new wall motion abnormalities. Global function mildly reduced, ejection fraction +/-48%. Right ventricle visually appears normal in size with normal function Findings Left Ventricle Chamber size is mildly enlarged at end systole. Normal wall thickness. Global hypokinesis with regional wall motion abnormalities. Wall motion abnormality: See wall scoring diagram. Akinesis of the inferior wall. Akinesis of the inferolateral wall. The ejection fraction is 48%. Ejection fraction by modified Hess's rule is mildly reduced. Diastolic function not assessed. Right Ventricle Chamber size is normal. Systolic function is low normal. Left Atrium Left atrium not assessed. Right Atrium Right atrium not assessed. Septum Atrial septum not assessed. Mitral Valve Normal appearing leaflets. Mitral valve function not assessed. Aortic Valve Non-specific thickening. Aortic valve function not assessed. Tricuspid Valve Normal leaflets. Tricuspid valve function not assessed. Pulmonic Valve Pulmonic valve not assessed. Aorta Aorta not assessed. Pericardium No pericardial effusion. IVC/SVC The inferior vena cava structure is normal. Pulmonary Artery Pulmonary artery not assessed. Reading Providers Reading Role Read Date Abhijit Blanco DO Echo Arlee 05/30/2025 Wall Scoring Score Index: 1.47 The following segments are akinetic: basal anteroseptal and basal inferoseptal. The following segments are hypokinetic: basal anterolateral, mid inferolateral, mid anterolateral and apical lateral. All other segments are normal. Left Heart Measurements LV - Systole LVIDD 5.29 cm IVS 0.91 cm LVIDS 4.27 cm PW 1.04 cm LV RWT 0.39 LV Mass Index 89.4 g/m2 LV EDV BP 88 mL LV ESV BP 46 mL BP EF 48 % LV stroke volume BP (ml) 42 mL LV stroke volume index BP 19.44 mL/m2 Vitals Height Weight BSA (Calculated - sq m) BP Pulse 1.778 m (5' 10") 98.2 kg (216 lb 7.9 oz) 2.16 m2 148/82 71 Performing Staff Michael Green RDCS Study Details A limited echocardiography study (including microbubbles) was performed. Contrast indication: evaluation of left ventricle contiguous segments. Study limitations include poor cardiac windows. Imaging system used: Siemens. Exam Details Performed Procedure Technologist Supporting Staff Performing Physician ECHOCARDIOGRAM LIMITED/FOLLOWUP STUDY DETAILS BILLING Michael Green RDCS Appointment Date/Status Modality Department 05/30/2025 Arrived INPATIENT BEDSIDE ECHO TESTING, [facility] ECHOCARDIOGRAPHY ROSS Begin Exam End Exam Begin Exam Questionnaires 05/30/2025 11:13 AM 05/30/2025 12:35 PM [facility] CARD TIMEOUT CHECKLIST Signed at 1310 EDT External Results Report There is an external results report available. Patient Release Status: This result is viewable by the patient in MyChart and MyChart Bedside. ECHOCARDIOGRAM LIMITED/FOLLOWUP: Patient Communication Released Not seen ABN Associated with this Order There is no ABN associated with this order. Normal [facility] HIGH SENSITIVITY TROPONIN I - SINGLE ORDEROrdered By: Nicola Peralta on 05-30-2025 Interpretation and review of laboratory results Abnormal [facility] Troponin I.cardiac High sensitivity method [Mass/Vol] 5175 ng/L Critically high NINF - 53 ng/L [facility] Comment on above: Suggestive of myocar dial injury [facility] HIGH SENSITIVITY TROPONIN I - SINGLE ORDERon 05-30-2025 hs-Troponin I 5175 ng/L Critically high <53 [facility] Comment on above: Order Comment: Acute Coronary Syndrome (ACS): Initial Evaluation and Management:[email or web address] [email or web address] Result Comment: Sugg estive of myocardial injury Performed By: #### F SHELLIE PARK #### [facility] (DEFAULT) [address] [place] [address] hs-Troponin I 1666 ng/L High <53 [facility] Comment on above: Order Comment: This test was performed using a real-time PCR assay. This test was developed, and its performance characteristics determined by [facility]. It has not been cleared or approved by the FDA. The laboratory is regulated under CLIA as qualified to perform high-complexity testing. This test is used for clinical purposes. It should not be regarded as investigational or for research. Result Comment: Sugg estive of myocardial injury Performed By: #### C ANDBALJIT AURIS SCREEN BY PCR #### [facility] (DEFAULT) [address] [place] [address] Interpretation and review of laboratory results Abnormal [facility] Troponin I.cardiac High sensitivity method [Mass/Vol] 926 ng/L High NINF - 53 ng/L [facility] Comment on above: Suggestive of myocar dial injury Critical value previously called. [facility] hs-Troponin I 926 ng/L High <53 [facility] Comment on above: Order Comment: Acute Coronary Syndrome (ACS): Initial Evaluation and Management:[email or web address] [email or web address]%[email or web address] Result Comment: Sugg estive of myocardial injury Critical value previously called. Performed By: #### G AS5L #### [facility] (DEFAULT) [address] [place] [address] HIGH SENSITIVITY TROPONIN I - SINGLE ORDEROrdered By: Adam Flores on 05-30-2025 Interpretation and review of laboratory results Abnormal [facility] Troponin I.cardiac High sensitivity method [Mass/Vol] 1666 ng/L High NINF - 53 ng/L [facility] Comment on above: Suggestive of myocar dial injury [facility] HIGH SENSITIVITY TROPONIN I - SINGLE ORDEROrdered By: Tiffany Dodson on 05-30-2025 Interpretation and review of laboratory results Abnormal [facility] Troponin I.cardiac High sensitivity method [Mass/Vol] 696 ng/L High NINF - 53 ng/L [facility] Comment on above: Suggestive of myocar dial injury [facility] MAGNESIUMon 05-30-2025 Interpretation and review of laboratory results Normal [facility] Magnesium [Mass/Vol] 2.2 mg/dL 1.6 - 2 .6 mg/dL [facility] Magnesium [Mass/Vol] 2.2 mg/dL Normal 1.6-2.6 [facility] Comment on above: Performed By: #### S URGP #### [facility] (DEFAULT) [address] [place] [address] No Panel Informationon 05-30 [facility] PTTon 05-30-2025 aPTT Coag (PPP) [Time] 95.9 s High [facility] Interpretation and review of laboratory results Abnormal [facility] aPTT Coag (Bld) [Time] 95.9 s High 24.0-34.3 [facility] Comment on above: Order Comment: After initiation a PTT should be checked every 6 hours from time of last dose change or, if dose has not changed, 6 hours after last PTT result posted.? The frequent monitoring should occur until PTT in goal range for two consecutive lab draws without dose changes at which time PTTs may be checked no less frequently than every 12 hours.? If dose requires a change, PTT should be monitored at least every 6 hours until titration is no longer indicated, then as directed above.? If PTT above goal range refer to medication administration instructions. Performed By: #### X M #### [facility] (DEFAULT) [address] [place], [place] [id number] aPTT Coag (Bld) [Time] 91.9 s High 24.0-34.3 [facility] Comment on above: Order Comment: After initiation a PTT should be checked every 6 hours from time of last dose change or, if dose has not changed, 6 hours after last PTT result posted.? The frequent monitoring should occur until PTT in goal range for two consecutive lab draws without dose changes at which time PTTs may be checked no less frequently than every 12 hours.? If dose requires a change, PTT should be monitored at least every 6 hours until titration is no longer indicated, then as directed above.? If PTT above goal range refer to medication administration instructions. Performed By: #### I CA #### [facility] (DEFAULT) [address] [place] [address] PTTOrdered By: Lolita Michael on 05-30-2025 aPTT Coag (PPP) [Time] 91.9 s High [facility] Interpretation and review of laboratory results Abnormal [facility] US Heart limitedOrdered By: Abhijit Blanco on 05-30-2025 Body surface area Derived from formula 2.16 m2 [facility] Work Phone: [phone] BP EF 48 % [facility] Work Phone: [phone] EF SP 2CH 46 [facility] Work Phone: [phone] EF SP 4CH 49 [facility] Work Phone: [phone] FS 19 % [facility] Work Phone: [phone] IVS 0.91 cm [facility] Work Phone: [phone] LV EDV BP 88 mL [facility] Work Phone: [phone] LV EDV SP 2CH 65 mL [facility] Work Phone: [phone] LV EDV SP 4CH 110 mL [facility] Work Phone: [phone] LV ESV BP 46 mL [facility] Work Phone: [phone] LV ESV SP 2CH 35 mL [facility] Work Phone: [phone] LV ESV SP 4CH 56 mL [facility] Work Phone: [phone] LV mass 193.18 g [facility] Work Phone: [phone] LV Mass Index 89.4 g/m2 [facility] Work Phone: [phone] LV RWT 0.39 [facility] Work Phone: [phone] LV stroke volume BP (ml) 42 mL [facility] Work Phone: LV stroke volume index BP 19.44 mL/m2 [facility] Work Phone: LVIDD 5.29 cm [facility] Work Phone: [phone] LVIDS 4.27 cm [facility] Work Phone: [phone] [facility] ECHO LV BIPLANE SYSTOLIC VOLUME INDEX 21.30 mL/m2 [facility] Work Phone: [facility] ECHO LV BP DIASTOLIC VOLUME INDEX 40.74 [facility]: PW 1.04 cm [facility] Work Phone: [facility] Work Phone: Heart [facility] 5 Limited echo for ventricular function Left ventricular chamber size is mildly enlarged at end-systole. Persistent inferior/inferolateral wall motion abnormalities, as previously described, consistent with remote infarction. No definitive new wall motion abnormalities. Global function mildly reduced, ejection fraction +/-48%. Right ventricle visually appears normal in size with normal function Left Ventricle Chamber size is mildly enlarged at end systole. Normal wall thickness. Global hypokinesis with regional wall motion abnormalities. Wall motion abnormality: See wall scoring diagram. Akinesis of the inferior wall. Akinesis of the inferolateral wall. The ejection fraction is 48%. Ejection fraction by modified Hess's rule is mildly reduced. Diastolic function not assessed. Right Ventricle Chamber size is normal. Systolic function is low normal. Left Atrium Left atrium not assessed. Right Atrium Right atrium not assessed. IVC/SVC The inferior vena cava structure is normal. Mitral Valve Normal appearing leaflets. Mitral valve function not assessed. Tricuspid Valve Normal leaflets. Tricuspid valve function not assessed. Aortic Valve Non-specific thickening. Aortic valve function not assessed. Pulmonic Valve Pulmonic valve not assessed. Pericardium No pericardial effusion. Septum Atrial septum not assessed. Pulmonary Artery Pulmonary artery not assessed. Aorta Aorta not assessed. Study Details A limited echocardiography study (including microbubbles) was performed. Contrast indication: evaluation of left ventricle contiguous segments. Study limitations include poor cardiac windows. Imaging system used: Siemens. Wall Scoring Score Index: 1.47 The following segments are akinetic: basal anteroseptal and basal inferoseptal. The following segments are hypokinetic: basal anterolateral, mid inferolateral, mid anterolateral and apical lateral. All other segments are normal. [facility] Radiology Study observation (narrative) [facility] CBC,PLATELETSon 05-29-2025 Erythrocyte distribution width (RBC) [Ratio] 12.7 % 10.9 - 14.3 % [facility] Hematocrit (Bld) [Volume fraction] 42.4 % 39.6 - 48.8 % [facility] Hemoglobin (Bld) [Mass/Vol] 13.9 g/dL 13.4 - 16.8 g/dL [facility] Interpretation and review of laboratory results Abnormal [facility] MCH (RBC) [Entitic mass] 29.2 pg 26.1 - 33.3 pg [facility] MCHC (RBC) [Mass/Vol] 32.8 g/dL 31.9 - 36.5 g/dL [facility] MCV (RBC) [Entitic vol] 89.1 fL 79.0 - 94.5 fL [facility] Platelet mean volume (Bld) [Entitic vol] 8.3 fL Low 8.7 - 12.3 fL [facility] Platelets (Bld) [#/Vol] 210 10*3/uL 146 - 337 K/uL [facility] RBC (Bld) [#/Vol] 4.76 10*6/uL [facility] WBC (Bld) [#/Vol] 9.68 10*3/uL 3.73 - 10.10 K/uL [facility] Hematocrit (Bld) [Volume fraction] 42.4 % Normal 39.6-48.8 [facility] Comment on above: Performed By: #### X M #### [facility] (DEFAULT) [address] [address] Hemoglobin (Bld) [Mass/Vol] 13.9 g/dL Normal 13.4-16.8 [facility] Comment on above: Performed By: #### X M #### [facility] (DEFAULT) [address] [address] MCV (RBC) [Entitic vol] 89.1 fL Normal 79.0-94.5 O [facility] Comment on above: Performed By: #### X M #### [facility] (DEFAULT) [address] [address] Mean Cell Hgb 29.2 pg Normal 26.1-33.3 [facility] Comment on above: Performed By: #### X M #### [facility] (DEFAULT) [address] [address] Mean Cell Hgb Conc 32.8 g/dL Normal 31.9-36.5 [facility] Comment on above: Performed By: #### X M #### [facility] (DEFAULT) [address] [address] Platelet mean volume (Bld) [Entitic vol] 8.3 fL Low 8.7-12.3 [facility] Comment on above: Performed By: #### X M #### [facility] (DEFAULT) [address] [address] Platelets (Bld) [#/Vol] 210 10*3/uL Normal 146-337 [facility] Comment on above: Performed By: #### X M #### [facility] (DEFAULT) [address] [address] RBC (Bld) [#/Vol] 4.76 10*6/uL Normal 4.38-5.83 [facility] Comment on above: Performed By: #### X M #### [facility] (DEFAULT) [address] [address] RBC Distribution 12.7 % Normal 10.9-14.3 [facility] Comment on above: Performed By: #### X M #### [facility] (DEFAULT) [address] [place] [address] WBC (Bld) [#/Vol] 9.68 10*3/uL Normal 3.73-10.10 [facility] Comment on above: Performed By: #### X M #### [facility] (DEFAULT) [address] [place] [address] CHEM 7 (LYTES,BUN,CREA,GLUC) on 05-29-2025 Anion gap [Moles/Vol] 13 mmol/L 7 - 17 mmol/L [facility] Chloride [Moles/Vol] 107 mmol/L 98 - 10 8 mmol/L [facility] CO2 [Moles/Vol] 24 mmol/L 21 - 31 mmol/L [facility] Creatinine [Mass/Vol] 0.98 mg/dL 0.70 - 1.30 mg/dL [facility] eGFR, CKD-EPI, Male 84 - PINF [facility] Comment on above: Reported eGFR is bas ed on the CKD-EPI 2020 equation using creatinine, age, and sex. Glucose [Mass/Vol] 93 mg/dL 70 - 179 mg/dL [facility] Osmolality Calc [Osmolality] 294 [facility] Potassium [Moles/Vol] 4.0 mmol/L 3.5 - 5.0 mmol/L [facility] Sodium [Moles/Vol] 140 mmol/L 135 - 145 mmol/L [facility] Urea nitrogen [Mass/Vol] 18 mg/dL 7 - 25 mg/dL [facility] Urea nitrogen/Creatinine [Mass ratio] 18 mg/mg [facility] Anion gap [Moles/Vol] 13 mmol/L Normal 7-17 [facility] Comment on above: Performed By: #### G AS5L #### [facility] (DEFAULT) [address] [place] [address] Chloride [Moles/Vol] 107 mmol/L Normal 98-108 [facility] Comment on above: Performed By: #### G AS5L #### [facility] (DEFAULT) [address] [place] [address] CO2 [Moles/Vol] 24 mmol/L Normal 21-31 [facility] Comment on above: Performed By: #### Alec AS5L #### [facility] (DEFAULT) [address] [place] [address] Creatinine [Mass/Vol] 0.98 mg/dL Normal 0.70-1.30 [facility] Comment on above: Performed By: #### G AS5L #### [facility] (DEFAULT) [address] [place] [address]84[address] GFR/1.73 sq M.predicted among non-blacks MDRD (S/P/Bld) [Vol rate/Area] 84 mL/min/{1.73_m2} Normal >=60 [facility] Comment on above: Result Comment: Repo rted eGFR is based on the CKD-EPI 2020 equation using creatinine, age, and sex. Performed By: #### Alec AS5L #### [facility] (DEFAULT) [address] [place] [address]5980 Glucose [Mass/Vol] 93 mg/dL Normal Nonfastin -179 mg/dL; Fastin-99 [facility] Comment on above: Performed By: #### Alec AS5L #### [facility] (DEFAULT) [address] [place] [address] 27827 Osmolality [Osmolality] 294 mosm/kg Normal 278-305 [facility] Comment on above: Performed By: #### G AS5L #### [facility] (DEFAULT) [address] [place] [address]87[address] Potassium [Moles/Vol] 4.0 mmol/L Normal 3.5-5.0 [facility] Comment on above: Performed By: #### G AS5L #### [facility] (DEFAULT) [address] [place] [address]2749 Sodium [Moles/Vol] 140 mmol/L Normal 135-145 [facility] Comment on above: Performed By: #### G AS5L #### [facility] (DEFAULT) [address] [place] [address]70 Urea nitrogen [Mass/Vol] 18 mg/dL Normal 7-25 [facility] Comment on above: Performed By: #### G AS5L #### [facility] (DEFAULT) [address] [place] [address] 80592 Urea nitrogen/Creatinine [Mass ratio] 18 mg/mg Normal [facility] Comment on above: Performed By: #### G AS5L #### [facility] (DEFAULT) [address] [place] [address] HEMOGLOBIN A1Con 05-29-2025 Average glucose Estimated from glycated hemoglobin (Bld) [Mass/Vol] 103 mg/dL [facility] HbA1c (Bld) [Mass fraction] 5.2 % 4.7 - 5.6 % [facility] Glucose [Mass/Vol] 103 mg/dL Normal [facility] Comment on above: Performed By: #### X M #### [facility] (DEFAULT) [address] [place] [address] Hemoglobin A1C HPLC 5.2 % Normal 4.7-5.6 [facility] Comment on above: Performed By: #### X M #### [facility] (DEFAULT) [address] [place] [address] HEPATIC FUNCTION PANELon Albumin [Mass/Vol] 3.8 g/dL 3.5 - 5.0 g/dL [facility] ALP [Catalytic activity/Vol] 66 U/L 32 - 126 U/L [facility] ALT [Catalytic activity/Vol] 15 U/L 10 - 52 U/L [facility] AST [Catalytic activity/Vol] 17 U/L 10 - 39 U/L [facility] Bilirubin [Mass/Vol] 0.4 mg/dL NINF - 1.5 mg/dL [facility] Bilirubin.direct [Mass/Vol] mg/dL NINF - 0.3 mg/dL [facility] Interpretation and review of laboratory results Abnormal [facility] Protein [Mass/Vol] 6.3 g/dL Low 6.4 - 8.3 g/dL [facility] Albumin [Mass/Vol] 3.8 g/dL Normal 3.5-5.0 [facility] Comment on above: Performed By: #### Alec AS5L #### [facility] (DEFAULT) [address] [place] [address] 95019 ALP [Catalytic activity/Vol] 66 U/L Normal 32-126 [facility] Comment on above: Performed By: #### Alec AS5L #### [facility] (DEFAULT) [address] [place] [address] 50054 ALT [Catalytic activity/Vol] 15 U/L Normal 10-52 [facility] Comment on above: Performed By: #### Alec AS5L #### [facility] (DEFAULT) [address] [place] [address] 82742 AST [Catalytic activity/Vol] 17 U/L Normal 10-39 [facility] Comment on above: Performed By: #### Alec AS5L #### [facility] (DEFAULT) [address] [place] [address] 98244 Bilirubin [Mass/Vol] 0.4 mg/dL Normal <1.5 [facility] Comment on above: Performed By: #### Alec AS5L #### [facility] (DEFAULT) [address] [place] [address] 49211 Bilirubin Direct < Normal <0.3 [facility] Comment on above: Performed By: #### Alec AS5L #### [facility] (DEFAULT) [address] [place] [address] 50251 Protein [Mass/Vol] 6.3 g/dL Low 6.4-8.3 [facility] Comment on above: Performed By: #### Alec AS5L #### [facility] (DEFAULT) [address] [place] [address] HIGH SENSITIVITY TROPONIN I - SINGLE ORDERon 05-29-2025 hs-Troponin I 696 ng/L High <53 [facility] Comment on above: Order Comment: Acute Coronary Syndrome (ACS): Initial Evaluation and Management:[email or web address] [email or web address]%20Coronary%20Syndrome.[email or web address] Result Comment: Pham estive of myocardial injury Performed By: #### X M #### [facility] (DEFAULT) [address] [place] [address] 63002 Interpretation and review of laboratory results Normal [facility] Troponin I.cardiac High sensitivity method [Mass/Vol] 38 ng/L NINF - 53 ng/L [facility] hs-Troponin I 38 ng/L Normal <53 [facility] Comment on above: Order Comment: Acute Coronary Syndrome (ACS): Initial Evaluation and Management:[email or web address] [email or web address]%20Coronary%20Syndrome.[email or web address] Performed By: #### X M #### [facility] (DEFAULT) [address] [place] [address] 72058 Interpretation and review of laboratory results Normal [facility] Troponin I.cardiac High sensitivity method [Mass/Vol] 40 ng/L NINF - 53 ng/L [facility] hs-Troponin I 40 ng/L Normal <53 [facility] Comment on above: Order Comment: Acute Coronary Syndrome (ACS): Initial Evaluation and Management:[email or web address] delines/Acute%20Coronary%[email or web address]#[email or web address] Performed By: #### X M #### [facility] (DEFAULT) [address] [place] [address] LIPID PANEL W CALCULATED LDL on 05-29-2025 Cholesterol [Mass/Vol] 116 mg/dL NINF - 200 mg/dL [facility] Comment on above: [<200 mg/dL: Desirab le] [200-239 mg/dL: Borderline High] [>239 mg/dL: High] Cholesterol in HDL [Mass/Vol] 34 mg/dL Low 40 - PINF mg/dL [facility] Comment on above: [<40 mg/dL: Low (Hig h Risk)] [>59 mg/dL: High (Low Risk)] Cholesterol in LDL [Mass/Vol] 27 mg/dL 0 - 99 mg/dL [facility] Comment on above: [<100 mg/dL: Optimal ] [100-129 mg/dL: Near Optimal] [130-159 mg/dL: Borderline High] [160-189 mg/dL: High] [>189 mg/dL: Very High] Cholesterol non HDL [Mass/Vol] 82 mg/dL NINF - 130 mg/dL [facility] Cholesterol.total/Misty sterol in HDL [Mass ratio] 3.4 {ratio} NINF - 4.5 [facility] Interpretation and review of laboratory results Abnormal [facility] Triglyceride [Mass/Vol] 276 mg/dL High NINF - 150 mg/dL [facility] Comment on above: [<150 mg/dL: Desirab le] [150-199 mg/dL: Borderline] [200-499 mg/dL: High] [>500 mg/dL: Very High] [facility] Calculated LDL Cholesterol 27 mg/dL Normal 0-99 [facility] Comment on above: Result Comment: [<10 0 mg/dL: Optimal] [100-129 mg/dL: Near Optimal] [130-159 mg/dL: Borderline High] [160-189 mg/dL: High] [>189 mg/dL: Very High] Performed By: #### G AS5L #### [facility] (DEFAULT) [address] [place] [address] Cholesterol [Mass/Vol] 116 mg/dL Normal <200 [facility] Comment on above: Result Comment: [<20 0 mg/dL: Desirable] [200-239 mg/dL: Borderline High] [>239 mg/dL: High] Performed By: ###Peter Michael AS5L #### [facility] (DEFAULT) [address] [place] [address] 46406 Cholesterol in HDL [Mass/Vol] 34 mg/dL Low >=40 [facility] Comment on above: Result Comment: [<40 mg/dL: Low (High Risk)] [>59 mg/dL: High (Low Risk)] Performed By: ###Peter Michael AS5L #### [facility] (DEFAULT) [address] [place] [address] 97553 Non HDL Cholesterol 82 mg/dL Normal <130 [facility] Comment on above: Performed By: ###Peter Michael AS5L #### [facility] (DEFAULT) [address] [place] [address] 80792 Total Cholesterol/HDL Ratio 3.4 Normal <4.5 [facility] Comment on above: Performed By: ###Peter Michael AS5L #### [facility] (DEFAULT) [address] [place] [address] 64470 Triglyceride [Mass/Vol] 276 mg/dL High <150 [facility] Comment on above: Result Comment: [<15 0 mg/dL: Desirable] [150-199 mg/dL: Borderline] [200-499 mg/dL: High] [>500 mg/dL: Very High] Performed By: ###Peter Michael AS5L #### [facility] (DEFAULT) [address] [place] [address] 47945 MAGNESIUMon 05-29-2025 Interpretation and review of laboratory results Normal [facility] Magnesium [Mass/Vol] 2.2 mg/dL 1.6 - 2 .6 mg/dL [facility] Magnesium [Mass/Vol] 2.2 mg/dL Normal 1.6-2.6 [facility] Comment on above: Performed By: #### Alec AS5L #### [facility] (DEFAULT) [address] [address] No Panel Informationon 05-29 [facility] PTTOrdered By: Janice Madrigal on 05-29-2025 aPTT Coag (PPP) [Time] 70.5 s High [facility] Comment on above: Results inconsistent with previous results Interpretation and review of laboratory results Abnormal [facility] PTTon 05-29-2025 aPTT Coag (Bld) [Time] 70.5 s High 24.0-34.3 [facility] Comment on above: Order Comment: Draw prior to initiation of intravenous Heparin. Result Comment: Resu lts inconsistent with previous results Performed By: #### S URGP #### [facility] (DEFAULT) [address] [place], [place] [id number] CALCIUMon 05-28-2025 Calcium [Mass/Vol] 9.4 mg/dL 8.6 - 10. 5 mg/dL [facility] Calcium [Mass/Vol] 9.4 mg/dL Normal 8.6-10.5 [facility] Comment on above: Performed By: #### G AS5L #### [facility] (DEFAULT) [address] [place] [address] 10026 CBC AND ELECTRONIC DIFFon Basophils (Bld) [#/Vol] 0.07 10*3/uL 0.00 - 0.09 K/uL [facility] Basophils/100 WBC (Bld) 0.7 % [facility] Differential cell count method Nom (Bld) Electronic Differential [facility] Eosinophils (Bld) [#/Vol] 0.55 10*3/uL High 0.00 - 0.48 K/uL [facility] Eosinophils/100 WBC (Bld) 5.4 % [facility] Erythrocyte distribution width (RBC) [Ratio] 12.7 % 10.9 - 14.3 % [facility] Hematocrit (Bld) [Volume fraction] 45.6 % 39.6 - 48.8 % [facility] Hemoglobin (Bld) [Mass/Vol] 15.4 g/dL 13.4 - 16.8 g/dL [facility] Immature granulocytes (Bld) [#/Vol] 0.07 10*3/uL NINF - 0.07 K/uL [facility] Immature granulocytes/100 WBC (Bld) 0.7 % [facility] Interpretation and review of laboratory results Abnormal [facility] Lymphocytes (Bld) [#/Vol] 1.87 10*3/uL 0.83 - 3.57 K/uL [facility] Lymphocytes/100 WBC (Bld) 18.2 % [facility] MCH (RBC) [Entitic mass] 29.8 pg 26.1 - 33.3 pg [facility] MCHC (RBC) [Mass/Vol] 33.8 g/dL 31.9 - 36.5 g/dL [facility] MCV (RBC) [Entitic vol] 88.2 fL 79.0 - 94.5 fL [facility] Monocytes (Bld) [#/Vol] 0.76 10*3/uL 0.24 - 0.93 K/uL [facility] Monocytes/100 WBC (Bld) 7.4 % [facility] Neutrophils (Bld) [#/Vol] 6.94 10*3/uL High 1.57 - 6.19 K/uL [facility] Nucleated RBC/100 WBC (Bld) [Ratio] 0.0 % [facility] Platelet mean volume (Bld) [Entitic vol] 8.3 fL Low 8.7 - 12.3 fL [facility] Platelets (Bld) [#/Vol] 236 10*3/uL 146 - 337 K/uL [facility] RBC (Bld) [#/Vol] 5.17 10*6/uL [facility] Segmented neutrophils/100 WBC (Bld) 67.6 % [facility] WBC (Bld) [#/Vol] 10.26 10*3/uL High 3.73 - 10.10 K/uL [facility] Basophils (Bld) [#/Vol] 0.07 10*3/uL Normal 0.00-0.09 [facility] Comment on above: Performed By: #### F IB, PTPTT #### [facility] (DEFAULT) [address] [place] [address] 62009 Basophils/100 WBC (Bld) 0.7 % Normal [facility] Comment on above: Performed By: #### F IB, PTPTT #### [facility] (DEFAULT) [address] [place] [address] 30156 DIFF STATUS Electronic Differential Normal [facility] Comment on above: Performed By: #### F IB, PTPTT #### [facility] (DEFAULT) [address] [address] Eosinophils (Bld) [#/Vol] 0.55 10*3/uL High 0.00-0.48 [facility] Comment on above: Performed By: #### F IB, PTPTT #### [facility] (DEFAULT) [address] [address] Eosinophils/100 WBC (Bld) 5.4 % Normal [facility] Comment on above: Performed By: #### F IB, PTPTT #### [facility] (DEFAULT) [address] [address] Hematocrit (Bld) [Volume fraction] 45.6 % Normal 39.6-48.8 [facility] Comment on above: Performed By: #### F IB, PTPTT #### [facility] (DEFAULT) [address] [place] [address] 63603 Hemoglobin (Bld) [Mass/Vol] 15.4 g/dL Normal 13.4-16.8 [facility] Comment on above: Performed By: #### F IB, PTPTT #### [facility] (DEFAULT) [address] [place] [address] 56768 Immature Grans % 0.7 % Normal [facility] Comment on above: Performed By: #### F IB, PTPTT #### [facility] (DEFAULT) [address] [place] [address] 82987 Immature Grans Absolute 0.07 K/uL Normal <=0.07 [facility] Comment on above: Performed By: #### F IB, PTPTT #### [facility] (DEFAULT) [address] [place] [address] 61643 Lymphocytes (Bld) [#/Vol] 1.87 10*3/uL Normal 0.83-3.57 [facility] Comment on above: Performed By: #### F IB, PTPTT #### [facility] (DEFAULT) [address] [place] [address] 93667 Lymphocytes/100 WBC (Bld) 18.2 % Normal [facility] Comment on above: Performed By: #### F IB, PTPTT #### [facility] (DEFAULT) [address] [place] [address] 97288 MCV (RBC) [Entitic vol] 88.2 fL Normal 79.0-94.5 [facility] Comment on above: Performed By: #### F IB, PTPTT #### [facility] (DEFAULT) [address] [place] [address] 27020 Mean Cell Hgb 29.8 pg Normal 26.1-33.3 [facility] Comment on above: Performed By: #### F IB, PTPTT #### [facility] (DEFAULT) [address] [place] [address] 52286 Mean Cell Hgb Conc 33.8 g/dL Normal 31.9-36.5 [facility] Comment on above: Performed By: #### F IB, PTPTT #### [facility] (DEFAULT) [address] [place] [address] 02375 Monocytes (Bld) [#/Vol] 0.76 10*3/uL Normal 0.24-0.93 [facility] Comment on above: Performed By: #### F IB, PTPTT #### [facility] (DEFAULT) [address] [place] [address] 93130 Monocytes/100 WBC (Bld) 7.4 % Normal [facility] Comment on above: Performed By: #### F IB, PTPTT #### [facility] (DEFAULT) [address] [place] [address] 68572 Nucleated RBC 0.0 /100 WBC Normal <=0.2 [facility] Comment on above: Performed By: #### F IB, PTPTT #### [facility] (DEFAULT) [address] [place] [address] 38185 Platelet mean volume (Bld) [Entitic vol] 8.3 fL Low 8.7-12.3 [facility] Comment on above: Performed By: #### F IB, PTPTT #### [facility] (DEFAULT) [address] [place] [address] 88968 Platelets (Bld) [#/Vol] 236 10*3/uL Normal 146-337 [facility] Comment on above: Performed By: #### F IB, PTPTT #### [facility] (DEFAULT) [address] [place] [address] 85380 RBC (Bld) [#/Vol] 5.17 10*6/uL Normal 4.38-5.83 [facility] Comment on above: Performed By: #### F IB, PTPTT #### [facility] (DEFAULT) [address] [place] [address] 28993 RBC Distribution 12.7 % Normal 10.9-14.3 [facility] Comment on above: Performed By: #### F IB, PTPTT #### [facility] (DEFAULT) [address] [place] [address] 51228 Segs + Bands Auto 67.6 % Normal [facility] Comment on above: Performed By: #### F IB, PTPTT #### [facility] (DEFAULT) [address] [place] [address] 52269 Segs + Bands,Absolute Auto 6.94 K/uL High 1.57-6.19 [facility] Comment on above: Performed By: #### F IB, PTPTT #### [facility] (DEFAULT) [address] [place] [address] WBC (Bld) [#/Vol] 10.26 10*3/uL High 3.73-10.10 [facility] Comment on above: Performed By: #### F IB, PTPTT #### [facility] (DEFAULT) [address] [place] [address] CHEM 7 (LYTES,BUN,CREA,GLUC) on 05-28-2025 Anion gap [Moles/Vol] 15 mmol/L 7 - 17 mmol/L [facility] Chloride [Moles/Vol] 105 mmol/L 98 - 10 8 mmol/L [facility] CO2 [Moles/Vol] 23 mmol/L 21 - 31 mmol/L [facility] Creatinine [Mass/Vol] 0.96 mg/dL 0.70 - 1.30 mg/dL [facility] eGFR, CKD-EPI, Male 86 - PINF [facility] Comment on above: Reported eGFR is bas ed on the CKD-EPI 2020 equation using creatinine, age, and sex. Glucose [Mass/Vol] 87 mg/dL 70 - 179 mg/dL [facility] Osmolality Calc [Osmolality] 291 [facility] Potassium [Moles/Vol] 4.6 mmol/L 3.5 - 5.0 mmol/L [facility] Comment on above: Specimen slightly he molyzed. Potassium results may be falsey elevated by more than 0.5 mmol/L. Consider recollection. Sodium [Moles/Vol] 138 mmol/L 135 - 145 mmol/L [facility] Urea nitrogen [Mass/Vol] 17 mg/dL 7 - 25 mg/dL [facility] Urea nitrogen/Creatinine [Mass ratio] 18 mg/mg [facility] Anion gap [Moles/Vol] 15 mmol/L Normal 7-17 [facility] Comment on above: Performed By: #### G AS5L #### [facility] (DEFAULT) [address] [place] [address] 51574 Chloride [Moles/Vol] 105 mmol/L Normal 98-108 [facility] Comment on above: Performed By: #### Alec AS5L #### [facility] (DEFAULT) [address] [place] [address] 42696 CO2 [Moles/Vol] 23 mmol/L Normal 21-31 [facility] Comment on above: Performed By: #### G AS5L #### [facility] (DEFAULT) [address] [place] [address] 69465 Creatinine [Mass/Vol] 0.96 mg/dL Normal 0.70-1.30 [facility] Comment on above: Performed By: #### G AS5L #### Adriana [facility] (DEFAULT) [address] [place] [address] 29588 GFR/1.73 sq M.predicted among non-blacks MDRD (S/P/Bld) [Vol rate/Area] 86 mL/min/{1.73_m2} Normal >=60 [facility] Comment on above: Result Comment: Repo rted eGFR is based on the CKD-EPI 2020 equation using creatinine, age, and sex. Performed By: #### Alec AS5L #### [facility] (DEFAULT) [address] [place] [address] 93416 Glucose [Mass/Vol] 87 mg/dL Normal Nonfastin -179 mg/dL; Fastin-99 [facility] Comment on above: Performed By: #### G AS5L #### [facility] (DEFAULT) [address] [place] [address] 30237 Osmolality [Osmolality] 291 mosm/kg Normal 278-305 [facility] Comment on above: Performed By: #### G AS5L #### [facility] (DEFAULT) [address] [place] [address] 86313 Potassium [Moles/Vol] 4.6 mmol/L Normal 3.5-5.0 [facility] Comment on above: Result Comment: Spec imen slightly hemolyzed. Potassium results may be falsey elevated by more than 0.5 mmol/L. Consider recollection. Performed By: #### G AS5L #### [facility] (DEFAULT) [address] [place] [address] 05348 Sodium [Moles/Vol] 138 mmol/L Normal 135-145 [facility] Comment on above: Performed By: #### G AS5L #### [facility] (DEFAULT) [address] [place] [address] 39366 Urea nitrogen [Mass/Vol] 17 mg/dL Normal 7-25 [facility] Comment on above: Performed By: #### G AS5L #### [facility] (DEFAULT) [address] [place] [address] 85669 Urea nitrogen/Creatinine [Mass ratio] 18 mg/mg Normal [facility] Comment on above: Performed By: #### G AS5L #### [facility] (DEFAULT) [address] [place] [address] 96011 ED NOTEon 05-28-2025 ED NOTE HNO ID: [id number] Author: NEGRA RODRIGES RN Service: Emergency Medicine Author Type: Registered Nurse Type: ED Notes Filed: 05/28/2025 05:12 Note Text: Called transfer line to check status, they are working on transfer request. Normal [facility] ED NOTE HNO ID: [id number] Author: HUANG MERCADO RN Service: Emergency Medicine Author Type: Registered Nurse Type: ED Notes Filed: 05/28/2025 07:54 Note Text: Report given to [facility]. Pt is alert and oriented, verbalizes understanding of transport to [facility]. Pt ambulates to transfer cot with steady gait. Normal [facility] ED NOTE HNO ID: [id number] Author: HUANG MERCADO, RN Service: Emergency Medicine Author Type: Registered Nurse Type: ED Notes Filed: 05/28/2025 07:23 Note Text: Transfer line contacted to call [facility] accepting physician to discuss change in trop. Normal [facility] ED NOTE HNO ID: [id number] Author: NEGRA RODRIGES RN Service: Emergency Medicine Author Type: Registered Nurse Type: ED Notes Filed: 05/28/2025 07:04 Note Text: Report to MICHELLE Jo [facility] ED NOTE HNO ID: [id number] Author: NEGRA RODRIGES RN Service: Emergency Medicine Author Type: Registered Nurse Type: ED Notes Filed: 05/28/2025 06:53 Note Text: Patients SO Jayshree updated on ETA for ambulance, bed #. Breakfast ordered for patient. [facility] ED NOTE HNO ID: [id number] Author: JUSTYNA VELAZQUEZ RN Service: ? Author Type: Registered Nurse Type: ED Notes Filed: 05/28/2025 04:56 Note Text: Bed assignment [facility] room 2027 Report [phone] [facility] ED NOTE HNO ID: [id number] Author: NEGRA RODRIGES RN Service: Emergency Medicine Author Type: Registered Nurse Type: ED Notes Filed: 05/28/2025 04:53 Note Text: [facility] ETA 3 hours. [facility] ED NOTE HNO ID: [id number] Author: NEGRA RODRIGES RN Service: Emergency Medicine Author Type: Registered Nurse Type: ED Notes Filed: 05/28/2025 04:52 Note Text: Brenda, charge nurse from [facility], called with bed assignment. Patient will go to [facility] Bed 2035 Report number [id number] Report given to Brenda, vladislav update with ETA [facility] ED PROGRESS NOTE (PROVIDER)o n 05-28-2025 ED PROGRESS NOTE (PROVIDER) HNO ID: [id number] Author: AMADA SENA DO Service: Emergency Medicine Author Type: Physician Type: ED PROGRESS NOTE (PROVIDER) Filed: 05/28/2025 07:39 Note Text: ED CONTINUATION OF CARE NOTE Code Status: Full Code Assumed care from: Dr. Vázquez Presentation / Findings / Interventions / Plan / Items to Follow Up: Patient accepted to [facility] with pending transfer at 0800. Fourth troponin pending. ED Course as of 05/28/25 0708 Others' Documentation Sat May 28, 2025 0329 [facility] transfer center returned the call: Mimi. [ES] ED Course User Index [ES] Rhea Vázquez DO Clinical Impressions as of 05/28/25 0708 Chest pain History of hyperlipidemia Hx of CABG Elevated troponin Results for orders placed or performed during the hospital encounter of 05/27/25 EKG Impression NORMAL SINUS RHYTHM LEFT AXIS DEVIATION ABNORMAL ECG NO PREVIOUS ECGS AVAILABLE Confirmed by MD CLARK JOSHUA ([id number]) on 05/27/2025 11:36:27 PM Medical Decision Making Fourth troponin trending up from 22 to 29. On re-evaluation: Patient resting in bed, no distress. Heart RRR. He states he has no chest pain. No shortness of breath. No complaints at this time. Patient is set up for transfer to [facility] waiting for transport to arrive. Time: 730 am I spoke with [facility] transfer line. They will message the physician with the update on fourth troponin result and if physician wants to discuss with me, they will call me back. Time: 733 am Patient reports right TMJ pain. He reports he has a history of TMJ pain in the past. He received tylenol last night for it and is requesting another dose of tylenol. He reports the pain is worse when he moves his jaw and points directly to the right TMJ area. He denies any headache. No chest pain or shortness of breath. SIGNATURE: Amada Sena DO PATIENT NAME: Meir Landrum DATE: May 28, 2025 TIME: 7:08 AM PAGER/CONTACT #: Normal [facility] ED PROV NOTEon 05-28-2025 ED PROV NOTE HNO ID: [id number] Author: RHEA VÁZQUEZ DO Service: Emergency Medicine Author Type: Physician Type: ED Provider Notes Filed: 05/28/2025 06:09 Note Text: ED CONTINUATION OF CARE NOTE Code Status: Full Code Assumed care from: Dr Clark Presentation / Findings / Interventions / Plan / Items to Follow Up: Patient had been evaluated by Dr. Clark and signed out pending a 3 hour trop. His trop increased to 22 and per the care pathway, admission was recommended. His cardiac team is a [facility] (Dr. Garcia, cardiothoracic), Luis Antonio Renee is the ship's cook. He denies current CP. He denies Shortness of Breath. He denies back, arm or jaw pain. His last ASA was 8 hours ago,162mg. His last nitro was taken at 8pm on his way from [facility] to [facility]. There was a long wait at [place], so he left. His CP was intermittent yesterday beginning at 1pm. He took at nitro at 2pm yesterday and the pain improved so he went to get evaluated. The patient has remained chest pain-free while in our emergency department. I did give him an additional 162 mg of aspirin. The patient was updated on his third troponin result. He understands that per the care pathway and recommendation is that he be admitted for further workup and evaluation. The patient is agreeable to this and requested transfer to his hospital of choice which is [facility]. We did contact them and arranged for admission. The patient verbalized understanding of the care plan along with his . Shared decision making was utilized for this encounter and all their questions were answered. HEENT head is normocephalic atraumatic extraocular muscles intact sclera is nonicteric neck is supple normal passive range of motion no JVD. Cardiovascular heart is regular rate rhythm without murmurs gallops or rubs. Lungs clear to auscultation bilaterally without wheeze rales or rhonchi. Abdomen is soft nontender nondistended normal active bowel sounds no rebound rigidity or guarding no peritoneal signs. Extremities equal radial DP and PT pulses no peripheral edema cyanosis or clubbing. He has a chronic wound that is approximately 3 mm in length from where his graft was harvested that appears to still be healing the other harvest wounds are healed. There is no surrounding cellulitis or purulent drainage to that wound. It is on the right leg on the medial aspect of the upper calf. Neurologic alert awake and oriented x 3 cranial nerves are grossly intact no focal deficits. Psychiatric patient is calm and cooperative with a normal affect. ED Course as of 05/28/25 06 Rhea Vázquez's Documentation Sat May 28, 2025 0329 [facility] transfer center returned the call: Mimi. Clinical Impressions as of 05/28/25 0607 Chest pain History of hyperlipidemia Hx of CABG Elevated troponin Medical Decision Making SIGNATURE: Rhea Vázquez DO PATIENT NAME: Meir Landrum DATE: May 28, 2025 TIME: 12:54 AM PAGER/CONTACT #: RHEA VÁZQUEZ 05/28/25 0609 Normal [facility] HIGH SENSITIVITY TROPONIN I - SINGLE ORDERon 05-28-2025 Interpretation and review of laboratory results Abnormal [facility] Troponin I.cardiac High sensitivity method [Mass/Vol] 104 ng/L High NINF - 53 ng/L [facility] hs-Troponin I 104 ng/L High <53 [facility] Comment on above: Order Comment: Acute Coronary Syndrome (ACS): Initial Evaluation and Management:[email or web address] Performed By: #### L ABHSTI1 ####[facility] (DEFAULT)[address] [place] [address] hs-Troponin I 114 ng/L High <53 [facility] Comment on above: Order Comment: Acute Coronary Syndrome (ACS): Initial Evaluation and Management:[email or web address] Performed By: #### X MPO #### [facility] (DEFAULT) [address] [place] [address] HIGH SENSITIVITY TROPONIN I - SINGLE ORDEROrdered By: Jinny Spencer on 05-28-2025 Interpretation and review of laboratory results Abnormal [facility] Troponin I.cardiac High sensitivity method [Mass/Vol] 114 ng/L High NINF - 53 ng/L [facility] HIGH SENSITIVITY TROPONIN To n 05-28-2025 Troponin T.cardiac High sensitivity method [Mass/Vol] 29 ng/L High <12 [facility] Comment on above: Order Comment: Speci men Type: BLOOD SPECIMENOrdering Facility: [facility] Address: [address] [place] [address] Performed By: #### H STNT ####[facility]CLIA [id number] [place] [address] [place] HIGH SENSITIVITY TROPONIN T (THIRD) 3 HRS AFTER INITIALon 05-28-2025 Troponin T.cardiac High sensitivity method [Mass/Vol] 22 ng/L High <12 [facility] Comment on above: Order Comment: Speci men Type: BLOOD SPECIMEN [facility] Address: [address] [place] [address] Performed By: #### L [id number] #### [facility] CLIA [id number] [address] [place] [address] [place] MAGNESIUMon 05-28-2025 Magnesium [Mass/Vol] 2.3 mg/dL 1.6 - 2 .6 mg/dL [facility] Magnesium [Mass/Vol] 2.3 mg/dL Normal 1.6-2.6 [facility] Comment on above: Performed By: #### G AS5L #### [facility] (DEFAULT) [address] [place] [address] No Panel Informationon 05-28 Interpretation and review of laboratory results Normal [facility] PT,INR,PTTon 05-28-2025 aPTT Coag (PPP) [Time] 28.8 s [facility] INR Coag (Bld) [Relative time] 1.1 {INR} 0.9 - 1.1 [facility] Interpretation and review of laboratory results Normal [facility] PT Coag (PPP) [Time] 13.7 s [facility] aPTT Coag (Bld) [Time] 28.8 s Normal 24.0-34.3 [facility] Comment on above: Performed By: #### P TPTT ####[facility] (DEFAULT)[address] [place] [address] INR Coag (PPP) [Relative time] 1.1 {INR} Normal 0.9-1.1 [facility] Comment on above: Performed By: #### P TPTT ####[facility] (DEFAULT)[address] [place] [address] PT Coag (PPP) [Time] 13.7 s Normal 11.9-14.2 [facility] Comment on above: Performed By: #### P TPTT ####[facility] (DEFAULT)[address] [place] [address] CBC W Auto Differential pane l (Bld)on 05-27-2025 Basophils (Bld) [#/Vol] 0.07 10*3/uL Normal <0.11 [facility] Comment on above: Order Comment: Speci men Type: BLOOD SPECIMEN [facility] Address: [address] [place] [address] Performed By: #### 5 7021-8 #### [facility] CLIA [id number] [address] [place] [address] [place] Basophils/100 WBC (Bld) 0.7 % Normal [facility] Comment on above: Order Comment: Speci men Type: BLOOD SPECIMEN [facility] Address: [address] [place] [address] Performed By: #### 5 7021-8 #### [facility] CLIA [id number] [address] [place] [address] [place] Differential cell count method Nom (Bld) Auto Normal [facility] Comment on above: Order Comment: Speci men Type: BLOOD SPECIMEN [facility] Address: [address] [place] [address] Performed By: #### 5 7021-8 #### [facility] CLIA [id number] [address] [place] [address] [place] Eosinophils (Bld) [#/Vol] 0.72 10*3/uL High <0.46 [facility] Comment on above: Order Comment: Speci men Type: BLOOD SPECIMEN [facility] Address: [address] [place] [address] Performed By: #### 5 7021-8 #### [facility] CLIA [id number] [address] [place] [address] [place] Eosinophils/100 WBC (Bld) 7.5 % Normal [facility] Comment on above: Order Comment: Speci men Type: BLOOD SPECIMEN [facility] Address: [address] [place] [address] Performed By: #### 5 7021-8 #### [facility] CLIA [id number] [address] [place] [address] [place] Erythrocyte distribution width (RBC) [Ratio] 13.0 % Normal 11.5-15.0 [facility] Comment on above: Order Comment: Speci men Type: BLOOD SPECIMEN [facility] Address: [address] [place] [address] Performed By: #### 5 7021-8 #### [facility] CLIA [id number] [address] [place] Hematocrit (Bld) [Volume fraction] 42.5 % Normal 39.0-51.0 [facility] Comment on above: Order Comment: Speci men Type: BLOOD SPECIMEN [facility] Address: [address] [place] [address] Performed By: #### 5 7021-8 #### [facility] CLIA [id number] [address] [place] [address] [place] Hemoglobin (Bld) [Mass/Vol] 14.0 g/dL Normal 13.0-17.0 [facility] Comment on above: Order Comment: Speci men Type: BLOOD SPECIMEN [facility] Address: [address] [place] [address] Performed By: #### 5 7021-8 #### [facility] CLIA [id number] [address] [place] [address] [place] Immature granulocytes (Bld) [#/Vol] 0.04 10*3/uL Normal <0.10 [facility] Comment on above: Order Comment: Speci men Type: BLOOD SPECIMEN [facility] Address: [address] [place] [address] Performed By: #### 5 7021-8 #### [facility] CLIA [id number] [address] [place] [address] [place] [facility] Immature granulocytes/100 WBC (Bld) 0.4 % Normal [facility] Comment on above: Order Comment: Speci men Type: BLOOD SPECIMEN [facility] Address: [address] [place] [address] Performed By: #### 5 7021-8 #### [facility] CLIA [id number] [address] [place] [address] [place] Lymphocytes (Bld) [#/Vol] 2.62 10*3/uL Normal 1.00-4.00 [facility] Comment on above: Order Comment: Speci men Type: BLOOD SPECIMEN [facility] Address: [address] [place] [address] Performed By: #### 5 7021-8 #### [facility] CLIA [id number] [address] [place] [facility] Lymphocytes/100 WBC (Bld) 27.2 % Normal [facility] Comment on above: Order Comment: Speci men Type: BLOOD SPECIMEN [facility] Address: [address] [place] [address] Performed By: #### 5 7021-8 #### [facility] CLIA [id number] [address] [place] [address] [place] MCH (RBC) [Entitic mass] 30.0 pg Normal 26.0-34.0 [facility] Comment on above: Order Comment: Speci men Type: BLOOD SPECIMEN [facility] Address: [address] [place] [address] Performed By: #### 5 7021-8 #### [facility] CLIA [id number] [address] [place] [address] [place] MCHC (RBC) [Mass/Vol] 32.9 g/dL Normal 30.5-36.0 [facility] Comment on above: Order Comment: Speci men Type: BLOOD SPECIMEN [facility] Address: [address] [place] [address] Performed By: #### 5 7021-8 #### [facility] CLIA [id number] [address] [place] [address] [place] MCV (RBC) [Entitic vol] 91.0 fL Normal 80.0-100.0 [facility] Comment on above: Order Comment: Speci men Type: BLOOD SPECIMEN [facility] Address: [address] [place] [address] Performed By: #### 5 7021-8 #### [facility] CLIA [id number] [address] [place] [address] [place] Monocytes (Bld) [#/Vol] 0.98 10*3/uL High <0.87 [facility] Comment on above: Order Comment: Speci men Type: BLOOD SPECIMEN [facility] Address: [address] [place] [address] Performed By: #### 5 7021-8 #### [facility] CLIA [id number] [address] [place] [address] [place] Monocytes/100 WBC (Bld) 10.2 % Normal A [facility] Comment on above: Order Comment: Speci men Type: BLOOD SPECIMEN [facility] Address: [address] [place] [address] Performed By: #### 5 7021-8 #### [facility] CLIA [id number] [address] [place] [address] [place] Neutrophils (Bld) [#/Vol] 5.22 10*3/uL Normal 1.45-7.50 [facility] Comment on above: Order Comment: Speci men Type: BLOOD SPECIMEN [facility] Address: [address] [place] [address] Performed By: #### 5 7021-8 #### [facility] CLIA [id number] [address] [place] [address] [place] Neutrophils/100 WBC (Bld) 54.0 % Normal [facility] Comment on above: Order Comment: Speci men Type: BLOOD SPECIMEN [facility] Address: [address] [place] [address] Performed By: #### 5 7021-8 #### [facility] CLIA [id number] [address] [place] [address] [place] Nucleated RBC (Bld) [#/Vol] Normal [facility] Comment on above: Order Comment: Speci men Type: BLOOD SPECIMEN [facility] Address: [address] [place] [address] Performed By: #### 5 7021-8 #### [facility] CLIA [id number] [address] [place] [address] [place] Nucleated RBC/100 WBC (Bld) [Ratio] Normal [facility] Comment on above: Order Comment: Speci men Type: BLOOD SPECIMEN [facility] Address: [address] [place] [address] Performed By: #### 5 7021-8 #### [facility] CLIA [id number] [address] [place] [address] [place] Platelet mean volume (Bld) [Entitic vol] 8.3 fL Low 9.0-12.7 [facility] Comment on above: Order Comment: Speci men Type: BLOOD SPECIMEN [facility] Address: [address] [place] [address] Performed By: #### 5 7021-8 #### [facility] CLIA [id number] [address] [place] [address] [place] Platelets (Bld) [#/Vol] 239 10*3/uL Normal 150-400 [facility] Comment on above: Order Comment: Speci men Type: BLOOD SPECIMEN [facility] Address: [address] [place] [address] Performed By: #### 5 7021-8 #### [facility] CLIA [id number] [address] [place] [address] [facility] RBC (Bld) [#/Vol] 4.67 10*6/uL Normal 4.20-6.00 [facility] Comment on above: Order Comment: Speci men Type: BLOOD SPECIMEN [facility] Address: [address] [place] [address] Performed By: #### 5 7021-8 #### [facility] CLIA [id number] [address] [place] [address] [facility] WBC (Bld) [#/Vol] 9.65 10*3/uL Normal 3.70-11.00 [facility] Comment on above: Order Comment: Speci men Type: BLOOD SPECIMEN [facility] Address: [address] [place] [address] Performed By: #### 5 7021-8 #### [facility] CLIA [id number] [address] [place] [address] [facility] Comprehensive metabolic 2000 panelon 05-27-2025 Albumin [Mass/Vol] 4.1 g/dL Normal 3.9-4.9 [facility] Comment on above: Order Comment: Speci men Type: BLOOD SPECIMEN [facility] Address: [address] [place] [address] Performed By: #### 2 4323-8, #### [facility] CLIA [id number] [address] [place] [address] [facility] ALP [Catalytic activity/Vol] 82 U/L Normal 38-113 [facility] Comment on above: Order Comment: Speci men Type: BLOOD SPECIMEN [facility] Address: [address] [place] [address] Performed By: #### 2 4323-8, #### [facility] CLIA [id number] [address] [place] [address] [place] ALT With P-5'-P [Catalytic activity/Vol] 18 U/L Normal 10-54 [facility] Comment on above: Order Comment: Speci men Type: BLOOD SPECIMEN [facility] Address: [address] [place], [place] [address] Performed By: #### 2 4323-8, #### [facility] CLIA [id number] [address] [place] [address] [place] Anion gap [Moles/Vol] 13 mmol/L Normal 8-15 [facility] Comment on above: Order Comment: Speci men Type: BLOOD SPECIMEN [facility] Address: [address] [place] [address] Performed By: #### 2 4323-8, #### [facility] CLIA [id number] [address] [place] [address] [place] AST With P-5'-P [Catalytic activity/Vol] 18 U/L Normal 14-40 [facility] Comment on above: Order Comment: Speci men Type: BLOOD SPECIMEN [facility] Address: [address] [place], [place] [address] Performed By: #### 2 432-8, #### [facility] CLIA [id number] [address] [place] [address] [place] Bilirubin [Mass/Vol] 0.2 mg/dL Normal 0.2-1.3 [facility] Comment on above: Order Comment: Speci men Type: BLOOD SPECIMEN [facility] Address: [address] [place] [address] Performed By: #### 2 432-8, #### [facility] CLIA [id number] [address] [place] [address] [place] Calcium [Mass/Vol] 9.4 mg/dL Normal 8.5-10.2 [facility] Comment on above: Order Comment: Speci men Type: BLOOD SPECIMEN [facility] Address: [address] [place] [address] Performed By: #### 2 4323-8, #### [facility] CLIA [id number] [address] [place] [address] [place] Chloride [Moles/Vol] 104 mmol/L Normal 98-107 [facility] Comment on above: Order Comment: Speci men Type: BLOOD SPECIMEN [facility] Address: [address] [place] [address] Performed By: #### 2 4323-8, #### [facility] CLIA [id number] [address] [place] [address] [place] CO2 [Moles/Vol] 22 mmol/L Normal 22-30 [facility] Comment on above: Order Comment: Speci men Type: BLOOD SPECIMEN [facility] Address: [address] [place] [address] Performed By: #### 2 4323-8, #### [facility] CLIA [id number] [address] [place] [address] [place] Creatinine [Mass/Vol] 1.05 mg/dL Normal 0.73-1.22 [facility] Comment on above: Order Comment: Speci men Type: BLOOD SPECIMEN [facility] Address: [address] [place] [address] Performed By: #### 2 4323-8, #### [facility] CLIA [id number] [address] [place] [address] [place] eGFRcr SerPlBld CKD-EPI 2020 77 mL/min/1.73m??? Normal >=60 [facility] Comment on above: Order Comment: Speci men Type: BLOOD SPECIMEN [facility] Address: [address] [place] [address] Result Comment: Cici mated Glomerular Filtration Rate (eGFR) is calculated using the 2020 CKD-EPI creatinine equation. This equation utilizes serum creatinine, sex, and age as parameters. The creatinine assay has traceable calibration to isotope dilution-mass spectrometry. Refer to KDIGO guidelines for clinical interpretation. In patients with unstable renal function, e.g. those with acute kidney injury, the eGFR may not accurately reflect actual GFR. Performed By: #### 2 432-8, #### [facility] CLIA [id number] [address] [place] [address] [place] Glucose [Mass/Vol] 89 mg/dL Normal 74-99 [facility] Comment on above: Order Comment: Lisbeth arroyo Type: BLOOD SPECIMEN [facility] Address: [address] [place], [place] [address] Result Comment: The [place] [employer] (ADA) provides guidance for cutoff values for fasting glucose and random glucose. The ADA defines fasting as no caloric intake for at least 8 hours. Fasting plasma glucose results between 100 to 125 mg/dL indicate increased risk for diabetes (prediabetes). Fasting plasma glucose results greater than or equal to 126 mg/dL meet the criteria for diagnosis of diabetes. In the absence of unequivocal hyperglycemia, results should be confirmed by repeat testing. In a patient with classic symptoms of hyperglycemia or hyperglycemic crisis, random plasma glucose results greater than or equal to 200 mg/dL meet the criteria for diagnosis of diabetes. Reference: Standards of Medical Care in Diabetes 2016, [place] [employer] Association. Diabetes Care. 2016.39(Suppl 1). Performed By: #### 2 43211-13, #### [facility] CLIA [id number] [address] [place] [address] [place] Potassium [Moles/Vol] 4.2 mmol/L Normal 3.7-5.1 [facility] Comment on above: Order Comment: Lisbeth arroyo Type: BLOOD SPECIMEN [facility] Address: [address] [place] [address] Performed By: #### 2 43211-13, #### [facility] CLIA [id number] [address] [place] [address] [place] Protein [Mass/Vol] 6.6 g/dL Normal 6.3-8.0 [facility] Comment on above: Order Comment: Lisbeth men Type: BLOOD SPECIMEN [facility] Address: [address] [place] [address] Performed By: #### 2 4323-8, #### [facility] CLIA [id number] [address] [place] [address] [place] Sodium [Moles/Vol] 139 mmol/L Normal 136-144 [facility] Comment on above: Order Comment: Deanni men Type: BLOOD SPECIMEN [facility] Address: [address] [place] [address] Performed By: #### 2 43238, #### [facility] CLIA [id number] [address] [place] [address] [place] [facility] Urea nitrogen [Mass/Vol] 20 mg/dL Normal 9-24 [facility] Comment on above: Order Comment: Deanni men Type: BLOOD SPECIMEN [facility] Address: [address] [place] [address] Performed By: #### 2 4328, #### [facility] CLIA [id number] [address] [place] [address] [facility] ED NOTEon 05-27-2025 ED NOTE HNO ID: [id number] Author: NEGRA RODRIGES RN Service: Emergency Medicine Author Type: Registered Nurse Type: ED Notes Filed: 05/27/2025 20:49 Note Text: Patient states that he had cardiac rehab this morning, got home, patient was doing yard work, pulled fountain out of pond, patient was standing outside watering when he went inside and sat down, patient ate and then developed chest pain. 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 Patient took 5 nitro and 2 extra ASA today. States nitro helped some. Patient denies Shortness of Breath, nausea, sweating. Had CABG x3 this spring at [facility], is currently in cardiac rehab. Normal [facility] ED PROV NOTEon 05-27-2025 ED PROV NOTE HNO ID: [id number] Author: YOVANY CLARK MD Service: Emergency Medicine Author Type: Physician Type: ED Provider Notes Filed: 05/29/2025 20:26 Note Text: ED Provider Note Patient Name: Meir Landrum : 1955 SERVICE DATE: 05/27/25 History Patient presents with: Chest Pain This is a 70-year-old white male with history of CAD who stated that he had CABG x 3 in March of this year at [facility] and is currently in cardiac rehab. He states that about 3 or 4 weeks after he had his CABG he had an episode of chest pain that radiated into his right arm and he went back in the hospital and was found to have troponins in the 400s that raised up to the 500s and after lots of tests he went back to the [facility] and was found to have a narrowing of one of the grafts due to "Competitive flow" per patient. 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 He states that yesterday he rode a 4 rich with a grandchild and then was doing physical work as well and he thinks maybe he is just having some sternotomy pain because of moving the handlebars on the 4 rich and doing the physical work because he was tightening a gas line and other things that required some torque. But then on the other hand he states that he took some nitro and felt it helped and so he just wanted to make sure that this was not related to another heart attack. He denies associated shortness of breath nausea diaphoresis lightheadedness. He does not have pleuritic chest pain. He states he takes Effient denies a history of PE. He denies lower extremity swelling. No numbness or tingling. No headache. 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 PAST SURGICAL HISTORY Procedure Laterality Date - ARTHROSCOPY KNEE DIAGNOSTIC W/WO SYNOVIAL BX SPX lt for meniscus tear in 2000 - CORONARY ARTERY BYPASS GRAFT HX x3 - ORTHOPEDICS SURGERY HX Left Shoulder, Left Hip replacements - PAST SURGICAL HISTORY OF tmj surgery in FAMILY HISTORY Problem Relation Age of Onset - Heart Father [place] 55 and CAB[place] 63 [place] - Heart Paternal Uncle [place] at age 40 - Heart Maternal Uncle [place] at age 46 - Heart Maternal Grandfather at age 67 from [place] - Heart Paternal Grandfather at age 73 from [place] - Colon Cancer Brother - Hypertension Father - Hypertension Maternal Grandfather - Hypertension Paternal Grandfather - Hypertension Maternal Uncle - Lipids Maternal Uncle - Lipids Paternal Uncle - Lipids Paternal Grandfather - Lipids Maternal Grandfather - Lipids Father Social History[1] ALLERGIES Allergen Reactions - Simvastatin Other: See Comments Other reaction(s): Myalgias, Other - Ciprofloxacin Other: See Comments - Chantix [Vareniclin* Mental Status Change Depression - Clopidogrel Other: See Comments Feels very sore - Meloxicam Hives It is tolerable if he uses benadryl. - Penicillins Itching - Sulfamethoxazole-Tr* Hives, Swelling Review of Systems Physical Exam Vitals BP Pulse Temp Temp src Resp SpO2 Weight Height 05/27/25205005/27/25205005/27/25205005/27/25205005/27/25205005/27/25205005/27/25 2100 -- 138/94 80 36.6 ?C (97.9 ?F) Temporal 18 99 % 100.7 kg (222 lb) Physical Exam Vitals and nursing note reviewed. Constitutional: Appearance: He is well-developed. He is not toxic-appearing or diaphoretic. HENT: Head: Normocephalic and atraumatic. Right Ear: Tympanic membrane, ear canal and external ear normal. Left Ear: Tympanic membrane, ear canal and external ear normal. Mouth/Throat: Mouth: Mucous membranes are moist. Mucous membranes are not dry. Pharynx: Uvula midline. No oropharyngeal exudate or posterior oropharyngeal erythema. Eyes: General: No scleral icterus. Extraocular Movements: Extraocular movements intact. Conjunctiva/sclera: Conjunctivae normal. Right eye: Right conjunctiva is not injected. Left eye: Left conjunctiva is not injected. Pupils: Pupils are equal, round, and reactive to light. Neck: Vascular: No JVD. Cardiovascular: Rate and Rhythm: Normal rate and regular rhythm. Pulses: Normal pulses. Radial pulses are 2+ on the right side and 2+ on the left side. Dorsalis pedis pulses are 2+ on the right side and 2+ on the left side. Posterior tibial pulses are 2+ on the right side and 2+ on the left side. Heart sounds: Normal heart sounds. No murmur heard. No friction rub. No gallop. Pulmonary: Effort: Pulmonary effort is normal. No respiratory distress. Breath sounds: Normal breath sounds. No stridor. No wheezing, rhonchi or rales. Chest: Comments: Ster (more content not included)... Normal [facility] EKGon 05-27-2025 Electrocardiogram Ventricular Rate : 7 0 BPM Atrial Rate : 70 BPM P-R Interval : 170 ms QRS Duration : 96 ms Q-T Interval : 430 ms QTC Calculation(Bazett) : 464 ms Calculated P [place] : 24 degrees Calculated R [place] : -30 degrees Calculated T [place] : 52 degrees NORMAL SINUS RHYTHM LEFT AXIS DEVIATION ABNORMAL ECG NO PREVIOUS ECGS AVAILABLE Confirmed by MD CLARK JOSHUA ([id number]) on 05/27/2025 11:36:27 PM NAME : MEIR LANDRUM PID : [id number] : 1955 Gender : Male Race : ORD : Procedure Date : May 27 2025 20:42:32 Edit Date : May 27 2025 23:36:29 Diagnosis: NORMAL SINUS RHYTHM LEFT AXIS DEVIATION ABNORMAL ECG NO PREVIOUS ECGS AVAILABLE Confirmed by MD CLARK JOSHUA ([id number]) on 05/27/2025 11:36:27 PM Test Reason : Location : 150 : [facility] Overread By : MD CLARK JOSHUA Edited By : MD CLARK JOSHUA Referred By : , Acquired by : YONAS CAMARENA [facility] HIGH SENSITIVITY TROPONIN T (INITIAL)on 05-27-2025 Troponin T.cardiac High sensitivity method [Mass/Vol] 16 ng/L High <12 [facility] Comment on above: Order Comment: Speci men Type: BLOOD SPECIMENOrdering Facility: [facility] Address: [address] [place] [address] Performed By: #### L [id number] ####[facility] [id number] [place] [address] [place] HIGH SENSITIVITY TROPONIN T (SECOND)on 05-27-2025 Troponin T.cardiac High sensitivity method [Mass/Vol] 18 ng/L High <12 [facility] Comment on above: Order Comment: Lisbeth arroyo Type: BLOOD SPECIMEN [facility] Facility: [facility] Address: [address] [place], [place] [id number] Performed By: #### L [id number] #### [facility] CLIA [id number] [address] [place] [address] [facility] Magnesium SerPl-mCncon 05-27 Magnesium [Mass/Vol] 2.3 mg/dL Normal 1.7-2.3 [facility] Comment on above: Order Comment: Lisbeth arroyo Type: BLOOD SPECIMEN [facility] Facility[facility] Address: [address] [place] [address] Performed By: #### 2 4323-8, 97821-9 #### [facility] CLIA [id number] [address] [place], [place] [id number] [facility] XR CHEST 2V FRONTAL/LATon XR CHEST 2V FRONTAL/LAT * * *Final Repor t* * * DATE OF EXAM: May 27 2025 9:42PM LDX [id number] - XR CHEST 2V FRONTAL/LAT / PROCEDURE REASON: Chest Pain * * * * Physician Interpretation * * * * EXAMINATION: CHEST RADIOGRAPH (2 VIEW FRONTAL and LATERAL) CLINICAL HISTORY: Chest Pain MQ: [id number] EXAM DATE/TIME: 05/27/2025 9:42 PM COMPARISON: No relevant prior studies available. RESULT: Lines, tubes, and devices: None. Lungs and pleura: No consolidation. No lung mass. No pleural effusion. No pneumothorax. Cardiomediastinal silhouette: Normal cardiomediastinal silhouette. Bones and soft tissues: Sternal sutures are noted. Postoperative changes from left shoulder replacement. IMPRESSION: No acute radiographic abnormality. Instructional Consultant: SUHA Transcribe Date/Time: May 27 2025 11:00P Dictated by : SHIRLEY VALDES MD This examination was interpreted and the report reviewed and electronically signed by: SHIRLEY VALDES MD on May 27 2025 11:01PM EST [id number] Normal [facility] XR CHEST PA AND LATERAL 2 EWSon 05-12-2025 XR CHEST PA AND LATERAL 2 VIEWS EXAM: XR CHEST PA AND LATERAL 2 VIEWS, 05/12/2025 10:14 AM COMPARISON: XR CHEST 1 VIEW PORTABLE April 02, 2025, XR CHEST 1 VIEW PORTABLE March 15, 2025 CLINICAL INDICATIONS: Post-op CABG RELEVANT CLINICAL HISTORY: Z95.1:S/P three vessel coronary artery bypass FINDINGS: (Adequate technique) Implanted Devices: Partially visualized left shoulder arthroplasty hardware. Lungs: Clear, without mass, interstitial disease, or consolidation. Pleural Spaces: No pleural effusion. No pneumothorax. Mediastinum and Lizette: Normal Cardiac silhouette and great vessels: Normal heart size. Atherosclerotic calcifications in the aorta. Postsurgical changes from previous CABG. Chest Wall: Stable appearance of sternotomy wires. IMPRESSION: No significant change from the previous examination I personally viewed and interpreted these images and I have reviewed and approved this report. Normal [facility] XR Chest PA and Lateralon IMPRESSION: No significant change from the previous examination I personally viewed and interpreted these images and I have reviewed and approved this report. OLOGY EXAM: XR CHEST PA AN D LATERAL 2 VIEWS, 05/12/2025 10:14 AM COMPARISON: XR CHEST 1 VIEW PORTABLE April 02, 2025, XR CHEST 1 VIEW PORTABLE March 15, 2025 CLINICAL INDICATIONS: Post-op CABG RELEVANT CLINICAL HISTORY: Z95.1:S/P three vessel coronary artery bypass FINDINGS: (Adequate technique) Implanted Devices: Partially visualized left shoulder arthroplasty hardware. Lungs: Clear, without mass, interstitial disease, or consolidation. Pleural Spaces: No pleural effusion. No pneumothorax. Mediastinum and Lizette: Normal Cardiac silhouette and great vessels: Normal heart size. Atherosclerotic calcifications in the aorta. Postsurgical changes from previous CABG. Chest Wall: Stable appearance of sternotomy wires. RADIOLOGY Андрей Stinson MD - 05/12/2025 EXAM: XR CHEST PA AND LATERAL 2 VIEWS, 05/12/2025 10:14 AM COMPARISON: XR CHEST 1 VIEW PORTABLE April 02, 2025, XR CHEST 1 VIEW PORTABLE March 15, 2025 CLINICAL INDICATIONS: Post-op CABG RELEVANT CLINICAL HISTORY: Z95.1:S/P three vessel coronary artery bypass FINDINGS: (Adequate technique) Implanted Devices: Partially visualized left shoulder arthroplasty hardware. Lungs: Clear, without mass, interstitial disease, or consolidation. Pleural Spaces: No pleural effusion. No pneumothorax. Mediastinum and Lizette: Normal Cardiac silhouette and great vessels: Normal heart size. Atherosclerotic calcifications in the aorta. Postsurgical changes from previous CABG. Chest Wall: Stable appearance of sternotomy wires. IMPRESSION IMPRESSION: No significant change from the previous examination I personally viewed and interpreted these images and I have reviewed and approved this report. [facility] Radiology Study observation (narrative) [facility] XR Chest PA and LateralOrder ed By: Андрей Stinson on 05-12-2025 [facility] Work Phone: LIPID PANEL W CALCULATED LDL on 05-10-2025 Cholesterol [Mass/Vol] 162 mg/dL NINF - 200 mg/dL [facility] Comment on above: [<200 mg/dL: Desirab le] [200-239 mg/dL: Borderline High] [>239 mg/dL: High] Cholesterol in HDL [Mass/Vol] 41 mg/dL 40 - PINF mg/dL [facility] Comment on above: [<40 mg/dL: Low (Hig h Risk)] [>59 mg/dL: High (Low Risk)] Cholesterol in LDL [Mass/Vol] [facility] Comment on above: Not Calculated Cholesterol non HDL [Mass/Vol] 121 mg/dL NINF - 130 mg/dL [facility] Cholesterol.total/Misty sterol in HDL [Mass ratio] 4.0 {ratio} [facility] Interpretation and review of laboratory results Abnormal [facility] Triglyceride [Mass/Vol] 428 mg/dL High NINF - 150 mg/dL [facility] Comment on above: [<150 mg/dL: Desirab le] [150-199 mg/dL: Borderline] [200-499 mg/dL: High] [>500 mg/dL: Very High] [facility] Calculated LDL Cholesterol Normal [facility] Comment on above: Result Comment: Not Calculated Performed By: #### X MPO #### [facility] (DEFAULT) [address] [place] [address] Cholesterol [Mass/Vol] 162 mg/dL Normal <200 [facility] Comment on above: Result Comment: [<20 0 mg/dL: Desirable] [200-239 mg/dL: Borderline High] [>239 mg/dL: High] Performed By: #### X MPO #### [facility] (DEFAULT) [address] [place] [address]1607 Cholesterol in HDL [Mass/Vol] 41 mg/dL Normal >=40 [facility] Comment on above: Result Comment: [<40 mg/dL: Low (High Risk)] [>59 mg/dL: High (Low Risk)] Performed By: #### X MPO #### [facility] (DEFAULT) [address] [place] [address] Non HDL Cholesterol 121 mg/dL Normal <130 [facility] Comment on above: Performed By: #### X MPO #### [facility] (DEFAULT) [address] [place] [address]484 Total Cholesterol/HDL Ratio 4.0 Normal <4.5 [facility] Comment on above: Performed By: #### X MPO #### [facility] (DEFAULT) [address] [place] [address] Triglyceride [Mass/Vol] 428 mg/dL High <150 [facility] Comment on above: Result Comment: [<15 0 mg/dL: Desirable] [150-199 mg/dL: Borderline] [200-499 mg/dL: High] [>500 mg/dL: Very High] Performed By: #### X MPO #### [facility] (DEFAULT) [address] [place] [address] No Panel InformationOrdered By: Radha Edwards on 04-26-2025 [facility] Cardiac Rehab [address] [place] [address] CR - Individual Treatment Plan MR#: [id number] Acct: [id number] Name: MEIR LANDRUM Rep #:[id number] : 1955 70 From: Radha Edwards PCP: Dr. Pratibha Ronquillo, DO DOS: 04/25 Exercise - Initial Assessment Visit Session #:: 6 Physician Prescribed Exercise Modalities: Treadmill, Rower, Schwinn Airdyne AD-7, SciFit Stepper, SciFit Pro-II Ergometer and SciFit Lateral [place] Nutrition - Initial Assessment Weight Mgt (Other Care) Height: 5 ft 11 in Weight:: 216 lb BMI: 30.1 BMI (Report if calculated above): 30 Psychosocial - Initial Assess Target Goals Target Goals Referral to Behavioral Health PS - Interventions: Yes: Attend Stress Management Classes Patient Health Questionnaire PHQ-9 Screening 30-Day Re-eval Assessment: 1. Little interest or pleasure in doing things: Not at all 2. Feeling down, depressed, or hopeless: Not at all 3. Trouble falling or staying asleep, or sleeping too much: Not at all 4. Feeling tired or having little energy: Several days 5. Poor appetite or overeating: Not at all 6. Feeling bad about yourself -- or that you are a failure or have let yourself or your family down: Not at all 7. Trouble concentrating on things, such as reading the newspaper or watching television: Not at all 8. Moving or speaking so slowly that other people could have noticed. Or the opposite - being so fidgety or restless that you have been moving around a lot more than usual: Not at all 9. Thoughts that you would be better off , or of hurting yourself in some way: Not at all How difficult have these problems made it for you to do your work, take care of things at home, or get along with other people?: Not difficult at all Total Score: 1 Self-Efficacy 6-Item Scale 30-Day Re-eval Assessment: We would like to know how confident you are in doing certain activities. Please select your confidence level for: Fatigue Select Number: 8 Physical Discomfort or Pain Select Number: 8 Emotional Distress Select Number: 10 Other Symptoms or Health Problems Select Number: 8 Different Tasks and Activities Select Number: 8 Medication Select Number: 8 Total Score:: 8 Nutrition Survey Nutrition Survey Instructions Scoring Instructions Exercise - 30-day Assessment Visit Date of Eval: 04/26/25 Session #:: 6 Physician Prescribed Exercise Modalities: Treadmill, Rower, Schwinn Airdyne AD-7, SciFit Stepper, SciFit Pro-II Ergometer and SciFit Lateral [place] Frequency: 3x/week for 12 weeks [36 sessions] Intensity: 60-80% of age predicted maximum heart rate reserve Duration: 30 - 45 minutes METs - Progression 0.5-1.0 weekly:: 0.5-1 Current METSs:: 4 Target Heart Rate:: 92-115 Target RPE 12-16:: 12-16 Current RPE:: 13 Maximum Excercise HR:: 122 Resting Blood Pressure: 134/78 Maximum Exercise Blood Pressure: 128/80 EKG Type: NSR to ST with rare pac/pvc Current Physical Activity or Exercising minutes: 30-45 Outcomes & Goals Goals:: Verbalizes understanding of THR, RPE & goal METS by session 6, Documentsin home exercise log/reports 30 min aerobic 5 day/wk by DC and Demonstrates accurate pulse taking by DC Intervention & Plan Exercise Program Goals: Instruct on personal THR & RPE, Instruct on MET level & personal MET goal, Show patient to take own pulse /validate performance until accurate and Instruct on home exercise 30-day Reassessments 30 day Reassessments:: Progressing Reassessment Notes & Comments:: Pt instructed on personal MET goal and continuesto progress each week. Physical Activity Home Exercise Physical Activity - Home Exercise: Safe Exercise, Warm-up, Self-monitoring, Cool-Down, Home Exercise > 30 min Daily and Sitting Time <3 hours/daily Outcomes & Goals Outcomes/Goals: Demonstrates correct Warm-up/exercise Cool-Down (S3) if = 2.5 METs, Verbalizes symptoms of exercise intolerance by Session 3 (S3) and Demonstrate safe equipment use (S3) & follows exercise prescrition (6) Intervention & Plan Plan/Intervention: Instruct warm-up & cool-down if exercising at > 2 METs, Instruct on symptoms of exercise intolerance & actions to take, Instruct & monitor on saf and Assess intial functional capacity & safety risk 30-day Reassessments 30 day Reassessments:: Progressing Reassessment Notes & Comments:: Pt instructed on proper warm up and cool down for exercise. Pt completes both with minimal direction. Exercise - 60-day Assessment Physician Prescribed Exercise Modalities: Treadmill, Rower, Schwinn Airdyne AD-7, SciFit Stepper, SciFit Pro-II Ergometer and SciFit Lateral [place] Exercise - 90-day Assessment Physician Prescribed Exercise Modalities: Treadmill, Rower, Schwinn Airdyne AD-7, SciFit Stepper, SciFit Pro-II Ergometer and SciFit Lateral [employer] Exercise - Final/Discharge Physician Prescribed Exercise Modalities: Treadmill, Rower, Schwinn Airdyne AD-7, SciFit Stepper, SciFit Pro-II Ergometer and SciFit Lateral [employer] Nutrition - 30-Day Assessment Program Goals Nutrition Program Goals Marcia (more content not included)... [facility] CBC,PLATELETSon 04-05-2025 Erythrocyte distribution width (RBC) [Ratio] 13.2 % 10.9 - 14.3 % [facility] Hematocrit (Bld) [Volume fraction] 37.3 % Low 39.6 - 48.8 % [facility] Hemoglobin (Bld) [Mass/Vol] 12.2 g/dL Low 13.4 - 16.8 g/dL [facility] Interpretation and review of laboratory results Abnormal [facility] MCH (RBC) [Entitic mass] 30 pg 26.1 - 33.3 pg [facility] MCHC (RBC) [Mass/Vol] 32.7 g/dL 31.9 - 36.5 g/dL [facility] MCV (RBC) [Entitic vol] 91.9 fL 79.0 - 94.5 fL [facility] Platelet mean volume (Bld) [Entitic vol] 8.6 fL Low 8.7 - 12.3 fL [facility] Platelets (Bld) [#/Vol] 222 10*3/uL 146 - 337 K/uL [facility] RBC (Bld) [#/Vol] 4.06 10*6/uL Low [facility] WBC (Bld) [#/Vol] 11.02 10*3/uL High 3.73 - 10.10 K/uL [facility] Hematocrit (Bld) [Volume fraction] 37.3 % Low 39.6-48.8 [facility] Comment on above: Performed By: #### X MPO #### [facility] (DEFAULT) [address] [place] [address]49 Hemoglobin (Bld) [Mass/Vol] 12.2 g/dL Low 13.4-16.8 [facility] Comment on above: Performed By: #### X MPO #### [facility] (DEFAULT) [address] [place] [address] 56993 MCV (RBC) [Entitic vol] 91.9 fL Normal 79.0-94.5 [facility] Comment on above: Performed By: #### X MPO #### [facility] (DEFAULT) [address] [place] [address] 75497 Mean Cell Hgb 30.0 pg Normal 26.1-33.3 [facility] Comment on above: Performed By: #### X MPO #### [facility] (DEFAULT) [address] [place] [address] 47863 Mean Cell Hgb Conc 32.7 g/dL Normal 31.9-36.5 [facility] Comment on above: Performed By: #### X MPO #### [facility] (DEFAULT) [address] [place] [address] 06508 Platelet mean volume (Bld) [Entitic vol] 8.6 fL Low 8.7-12.3 [facility] Comment on above: Performed By: #### X MPO #### [facility] (DEFAULT) [address] [place] [address] 75593 Platelets (Bld) [#/Vol] 222 10*3/uL Normal 146-337 [facility] Comment on above: Performed By: #### X MPO #### [facility] (DEFAULT) [address] [place] [address] 22043 RBC (Bld) [#/Vol] 4.06 10*6/uL Low 4.38-5.83 [facility] Comment on above: Performed By: #### X MPO #### [facility] (DEFAULT) [address] [place] [address] 65680 RBC Distribution 13.2 % Normal 10.9-14.3 [facility] Comment on above: Performed By: #### X MPO #### [facility] (DEFAULT) [address] [place] [address] 40860 WBC (Bld) [#/Vol] 11.02 10*3/uL High 3.73-10.10 [facility] Comment on above: Performed By: #### X MPO #### [facility] (DEFAULT) [address] [place] [address] 07707 CHEM 7 (LYTES,BUN,CREA,GLUC) on 04-05-2025 Anion gap [Moles/Vol] 15 mmol/L 7 - 17 mmol/L [facility] Chloride [Moles/Vol] 106 mmol/L 98 - 10 8 mmol/L [facility] CO2 [Moles/Vol] 22 mmol/L 21 - 31 mmol/L [facility] Creatinine [Mass/Vol] 1.01 mg/dL 0.70 - 1.30 mg/dL [facility] eGFR, CKD-EPI, Male 82 - PINF [facility] Comment on above: Reported eGFR is bas ed on the CKD-EPI 2020 equation using creatinine, age, and sex. Glucose [Mass/Vol] 103 mg/dL 70 - 179 mg/dL [facility] Osmolality Calc [Osmolality] 290 [facility] Potassium [Moles/Vol] 4 mmol/L 3.5 - 5.0 mmol/L [facility] Sodium [Moles/Vol] 139 mmol/L 135 - 145 mmol/L [facility] Urea nitrogen [Mass/Vol] 11 mg/dL 7 - 25 mg/dL [facility] Urea nitrogen/Creatinine [Mass ratio] 11 mg/mg [facility] Anion gap [Moles/Vol] 15 mmol/L Normal 7-17 [facility] Comment on above: Performed By: #### X M #### [facility] (DEFAULT) [address] [place] [address] 54334 Chloride [Moles/Vol] 106 mmol/L Normal 98-108 [facility] Comment on above: Performed By: #### X M #### [facility] (DEFAULT) [address] [place] [address] 65654 CO2 [Moles/Vol] 22 mmol/L Normal 21-31 [facility] Comment on above: Performed By: #### X M #### [facility] (DEFAULT) [address] [place] [address] 86583 Creatinine [Mass/Vol] 1.01 mg/dL Normal 0.70-1.30 [facility] Comment on above: Performed By: #### X M #### [facility] (DEFAULT) [address] [place] [address] 62473 GFR/1.73 sq M.predicted among non-blacks MDRD (S/P/Bld) [Vol rate/Area] 82 mL/min/{1.73_m2} Normal >=60 [facility] Comment on above: Result Comment: Repo rted eGFR is based on the CKD-EPI 2020 equation using creatinine, age, and sex. Performed By: #### X M #### [facility] (DEFAULT) [address] [place] [address] 66139 Glucose [Mass/Vol] 103 mg/dL Normal Nonfastin -179 mg/dL; Fastin-99 [facility] Comment on above: Performed By: #### X M #### [facility] (DEFAULT) [address] [place] [address] 76657 Osmolality [Osmolality] 290 mosm/kg Normal 278-305 [facility] Comment on above: Performed By: #### X M #### [facility] (DEFAULT) [address] [place] [address] Potassium [Moles/Vol] 4.0 mmol/L Normal 3.5-5.0 [facility] Comment on above: Performed By: #### X M #### [facility] (DEFAULT) [address] [place] [address] 33374 Sodium [Moles/Vol] 139 mmol/L Normal 135-145 [facility] Comment on above: Performed By: #### X M #### [facility] (DEFAULT) [address] [place] [address] 23957 Urea nitrogen [Mass/Vol] 11 mg/dL Normal 7-25 [facility] Comment on above: Performed By: #### X M #### [facility] (DEFAULT) [address] [place] [address] 52842 Urea nitrogen/Creatinine [Mass ratio] 11 mg/mg Normal [facility] Comment on above: Performed By: #### X M #### [facility] (DEFAULT) [address] [place] [address] 99172 IONIZED CALCIUM, WHOLE BLOOD Ordered By: Abdirahman Ponce on 04-05-2025 Calcium.ionized (Bld) [Moles/Vol] 4.64 mg/dL 4.60 - 5.30 mg/dL [facility] Interpretation and review of laboratory results Normal [facility] IONIZED CALCIUM, WHOLE BLOOD on 04-05-2025 ICA 4.64 mg/dL Normal 4.60-5.30 [facility] Comment on above: Performed By: #### F IB, PTPTT #### [facility] (DEFAULT) [address] [place] [address] 15291 MAGNESIUMon 04-05-2025 Interpretation and review of laboratory results Normal [facility] Magnesium [Mass/Vol] 2.2 mg/dL 1.6 - 2 .6 mg/dL [facility] Magnesium [Mass/Vol] 2.2 mg/dL Normal 1.6-2.6 [facility] Comment on above: Performed By: #### F IB, PTPTT #### [facility] (DEFAULT) [address] [address] No Panel Informationon 04-05 [facility] PTTon 04-05-2025 aPTT Coag (PPP) [Time] 78.4 s High [facility] Interpretation and review of laboratory results Abnormal [facility] aPTT Coag (Bld) [Time] 78.4 s High 24.0-34.3 [facility] Comment on above: Order Comment: After initiation a PTT should be checked every 6 hours from time of last dose change or, if dose has not changed, 6 hours after last PTT result posted.? The frequent monitoring should occur until PTT in goal range for two consecutive lab draws without dose changes at which time PTTs may be checked no less frequently than every 12 hours.? If dose requires a change, PTT should be monitored at least every 6 hours until titration is no longer indicated, then as directed above.? If PTT above goal range refer to medication administration instructions. Performed By: #### X M #### [facility] (DEFAULT) [address] [address] CARDIAC RHYTHMon 04-04-2025 [facility] CBC,PLATELETSon 04-04-2025 Erythrocyte distribution width (RBC) [Ratio] 13 % 10.9 - 14.3 % [facility] Hematocrit (Bld) [Volume fraction] 39.6 % 39.6 - 48.8 % [facility] Hemoglobin (Bld) [Mass/Vol] 13.1 g/dL Low 13.4 - 16.8 g/dL [facility] Interpretation and review of laboratory results Abnormal [facility] MCH (RBC) [Entitic mass] 30.3 pg 26.1 - 33.3 pg [facility] MCHC (RBC) [Mass/Vol] 33.1 g/dL 31.9 - 36.5 g/dL [facility] MCV (RBC) [Entitic vol] 91.5 fL 79.0 - 94.5 fL [facility] Platelet mean volume (Bld) [Entitic vol] 8.3 fL Low 8.7 - 12.3 fL [facility] Platelets (Bld) [#/Vol] 214 10*3/uL 146 - 337 K/uL [facility] RBC (Bld) [#/Vol] 4.33 10*6/uL Low [facility] WBC (Bld) [#/Vol] 9.12 10*3/uL 3.73 - 10.10 K/uL [facility] Hematocrit (Bld) [Volume fraction] 39.6 % Normal 39.6-48.8 [facility] Comment on above: Performed By: #### F IB, PTPTT #### [facility] (DEFAULT) [address] [address] Hemoglobin (Bld) [Mass/Vol] 13.1 g/dL Low 13.4-16.8 [facility] Comment on above: Performed By: #### F IB, PTPTT #### [facility] (DEFAULT) [address] [place] [address]30 MCV (RBC) [Entitic vol] 91.5 fL Normal 79.0-94.5 [facility] Comment on above: Performed By: #### F IB, PTPTT #### [facility] (DEFAULT) [address] [place] [address] Mean Cell Hgb 30.3 pg Normal 26.1-33.3 [facility] Comment on above: Performed By: #### F IB, PTPTT #### [facility] (DEFAULT) [address] [place] [address] 03129 Mean Cell Hgb Conc 33.1 g/dL Normal 31.9-36.5 [facility] Comment on above: Performed By: #### F IB, PTPTT #### [facility] (DEFAULT) [address] [place] [address] 46227 Platelet mean volume (Bld) [Entitic vol] 8.3 fL Low 8.7-12.3 [facility] Comment on above: Performed By: #### F IB, PTPTT #### [facility] (DEFAULT) [address] [place] [address] 17097 Platelets (Bld) [#/Vol] 214 10*3/uL Normal 146-337 [facility] Comment on above: Performed By: #### F IB, PTPTT #### [facility] (DEFAULT) [address] [place] [address] 98432 RBC (Bld) [#/Vol] 4.33 10*6/uL Low 4.38-5.83 [facility] Comment on above: Performed By: #### F IB, PTPTT #### [facility] (DEFAULT) [address] [address] RBC Distribution 13.0 % Normal 10.9-14.3 [facility] Comment on above: Performed By: #### F IB, PTPTT #### [facility] (DEFAULT) [address] [place] [address] 19568 WBC (Bld) [#/Vol] 9.12 10*3/uL Normal 3.73-10.10 [facility] Comment on above: Performed By: #### F IB, PTPTT #### [facility] (DEFAULT) [address] [place] [address] 74858 CHEM 7 (LYTES,BUN,CREA,GLUC) on 04-04-2025 Anion gap [Moles/Vol] 14 mmol/L 7 - 17 mmol/L [facility] Chloride [Moles/Vol] 106 mmol/L 98 - 10 8 mmol/L [facility] CO2 [Moles/Vol] 22 mmol/L 21 - 31 mmol/L [facility] Creatinine [Mass/Vol] 1.02 mg/dL 0.70 - 1.30 mg/dL [facility] eGFR, CKD-EPI, Male 81 - PINF [facility] Comment on above: Reported eGFR is bas ed on the CKD-EPI 2020 equation using creatinine, age, and sex. Glucose [Mass/Vol] 92 mg/dL 70 - 179 mg/dL [facility] Osmolality Calc [Osmolality] 288 [facility] Potassium [Moles/Vol] 3.9 mmol/L 3.5 - 5.0 mmol/L [facility] Sodium [Moles/Vol] 138 mmol/L 135 - 145 mmol/L [facility] Urea nitrogen [Mass/Vol] 13 mg/dL 7 - 25 mg/dL [facility] Urea nitrogen/Creatinine [Mass ratio] 13 mg/mg [facility] Anion gap [Moles/Vol] 14 mmol/L Normal 7-17 [facility] Comment on above: Performed By: #### C ANDIDA AURIS SCREEN BY PCR #### [facility] (DEFAULT) [address] [place] [address] 63338 Chloride [Moles/Vol] 106 mmol/L Normal 98-108 [facility] Comment on above: Performed By: #### C ANDIDA AURIS SCREEN BY PCR #### [facility] (DEFAULT) [address] [place] [address] 42712 CO2 [Moles/Vol] 22 mmol/L Normal 21-31 [facility] Comment on above: Performed By: #### C ANDIDA AURIS SCREEN BY PCR #### Adriana [facility] (DEFAULT) [address] [place] [address] 95317 Creatinine [Mass/Vol] 1.02 mg/dL Normal 0.70-1.30 [facility] Comment on above: Performed By: #### C ANDIDA AURIS SCREEN BY PCR #### [facility] (DEFAULT) [address] [place] [address] 67957 GFR/1.73 sq M.predicted among non-blacks MDRD (S/P/Bld) [Vol rate/Area] 81 mL/min/{1.73_m2} Normal >=60 [facility] Comment on above: Result Comment: Repo rted eGFR is based on the CKD-EPI 2020 equation using creatinine, age, and sex. Performed By: #### C ANDIDA AURIS SCREEN BY PCR #### BUFFY [facility] (DEFAULT) [address] [place] [address] [phone] Glucose [Mass/Vol] 92 mg/dL Normal Nonfastin -179 mg/dL; Fastin-99 [facility] Comment on above: Performed By: #### C ANDIDA AURIS SCREEN BY PCR #### Adriana [facility] (DEFAULT) [address] [place] [address] 58042 Osmolality [Osmolality] 288 mosm/kg Normal 278-305 [facility] Comment on above: Performed By: #### C ANDIDA AURIS SCREEN BY PCR #### [facility] (DEFAULT) [address] [place] [address] 79058 Potassium [Moles/Vol] 3.9 mmol/L Normal 3.5-5.0 [facility] Comment on above: Performed By: #### C ANDIDA AURIS SCREEN BY PCR #### [facility] (DEFAULT) [address] [place] [address] 22510 Sodium [Moles/Vol] 138 mmol/L Normal 135-145 [facility] Comment on above: Performed By: #### C ANDIDA AURIS SCREEN BY PCR #### [facility] (DEFAULT) [address] [place] [address] 17936 Urea nitrogen [Mass/Vol] 13 mg/dL Normal 7-25 [facility] Comment on above: Performed By: #### C ANDIDA AURIS SCREEN BY PCR #### [facility] (DEFAULT) [address] [place] [address] 50232 Urea nitrogen/Creatinine [Mass ratio] 13 mg/mg Normal [facility] Comment on above: Performed By: #### C ANDIDA AURIS SCREEN BY PCR #### [facility] (DEFAULT) [address] [place] [address] 50198 Cardiac catheterization stud yOrdered By: Nicole Salinas on 04-04-2025 Body surface area Derived from formula 2.15 m2 [facility] Work Phone: [facility] Work Phone: Cardiac catheterization stud leonor 04-04-2025 Impression Obstructive moapa coronary artery disease Patent coronary bypass grafts Recommendations: Continue aggressive risk factor modification and medical management for CAD. Consider medical management of NSTEMI, 48 hours of heparin (can start 4 hours after hemostasis of femoral access site) and DAPT for at least 6-12 months ------ Access: R femoral access, sheath left in for removal when ACT is below 160 L radial artery, TR band used for hemostasis Coronary angiography: The left main is angiographically normal. The left anterior descending (LAD) is a large vessel with 90% ISR of previously placed proximal LAD stent The left circumflex (LCx) has proximal 80% stenosis distal to the first obtuse marginal branch The right coronary artery is dominant with mid 80% stenosis Coronary bypass angiography ARORA-LAD graft is widely patent. There is some tapering near the distal anastomosis that is favored to represent competitive flow rather than obstructive stenosis. Required use of L radial artery access in order to engage SVG-RCA is widely patent SVG-OM is widely patent [facility] ECHOCARDIOGRAM LIMITED/CAITLYN Baird 04-04-2025 ECHOCARDIOGRAM LIMITED/FOLLOWUP ? NSTEMI, limited oracle bpm consultant echo by fellowCHITO reviewed 04/04/25. ? Mild segmental LV dysfunction, basal septal akinesis, lateral hypokinesis, EF ~45%. ? Grossly normal RV. ? Valves not assessed in data. Table formatting from the original result was not included. Images from the original result were not included. [facility] Facility [facility] Patient Information Patient Name Meir Landrum Legal Sex Male Indication for Exam Priority: Urgent Dx: Systolic heart failure, unspecified HF chronicity [I50.20 (ICD-10-CM)] Order Question Reason for Exam evaluate for wall motion abnormality and EF Interpretation Summary Result History is available. ? NSTEMI, limited oracle bpm consultant echo by fellowCHITO reviewed 04/04/25. ? Mild segmental LV dysfunction, basal septal akinesis, lateral hypokinesis, EF ~45%. ? Grossly normal RV. ? Valves not assessed in data. Findings Left Ventricle Chamber size is normal. Wall motion abnormality: See wall scoring diagram. Ejection fraction is mildly reduced. Diastolic function not assessed. Right Ventricle Chamber size is normal. Systolic function is low normal. Left Atrium Left atrium not assessed. Right Atrium Right atrium not assessed. Septum Atrial septum not assessed. Mitral Valve Normal appearing leaflets. Mitral valve function not assessed. Aortic Valve Non-specific thickening. Aortic valve function not assessed. Tricuspid Valve Normal leaflets. Tricuspid valve function not assessed. Pulmonic Valve Pulmonic valve not assessed. Aorta Aorta not assessed. Pericardium No pericardial effusion. IVC/SVC The inferior vena cava structure is normal. Pulmonary Artery Pulmonary artery not assessed. Reading Providers Reading Role Read Date Kelin Pritchard MD Fellow - Reading 04/02/2025 Cayden Valentin MD Echo Arlee 04/04/2025 Wall Scoring Score Index: 1.47 The following segments are akinetic: basal anteroseptal and basal inferoseptal. The following segments are hypokinetic: basal inferolateral, basal anterolateral, mid inferolateral and mid anterolateral. All other segments are normal. Left Heart Measurements LV - Systole LVIDD 4.48 cm IVS 0.93 cm LVIDS 3.62 cm PW 0.85 cm LV RWT 0.38 LV Mass Index 60.4 g/m2 Right Heart Measurements Right Atrium EST RAP 3 mmHg Doppler Measurements - Tricuspid Valve Regurgitation EST RAP 3 mmHg Vitals Height Weight BSA (Calculated - sq m) BP Pulse 1.778 m (5' 10") 97.5 kg (215 lb) 2.15 m2 152/76 74 Performing Staff Tabby Juan RDCS Study Details A limited echocardiography study (including M-mode) was performed. Overall study quality was fair. Study limitations include patient body habitus and patient's inability to turn. Imaging system used: FOCUS Trainr. Indications Indications for study: LV function. Exam Details Performed Procedure Technologist Supporting Staff Performing Physician ECHOCARDIOGRAM LIMITED/FOLLOWUP STUDY DETAILS BILLING Tabby Juan RDCS Appointment Date/Status Modality Department 04/02/2025 Arrived ECHO TESTING, [facility] ECHOCARDIOGRAPHY ROSS Begin Exam End Exam Begin Exam Questionnaires 04/02/2025 6:54 PM 04/02/2025 7:49 PM [facility] CARD TIMEOUT CHECKLIST Signed at 0823 EDT External Results Report There is an external results report available. Patient Release Status: This result is viewable by the patient in MyChart and MyChart Bedside. ECHOCARDIOGRAM LIMITED/FOLLOWUP: Patient Communication Released Not seen ABN Associated with this Order There is no ABN associated with this order. Normal [facility] GLUCOSE POCon 04-04-2025 Glucose [Mass/Vol] 113 mg/dL 70 - 179 mg/dL [facility] POC Sample Type CAPBL [facility] Test performed at address of the patient encounter. [facility] HEMATOCRITon 04-04-2025 Hematocrit (Bld) [Volume fraction] 37.5 % Low 39.6 - 48.8 % [facility] Interpretation and review of laboratory results Abnormal [facility] Hematocrit (Bld) [Volume fraction] 37.5 % Low 39.6-48.8 [facility] Comment on above: Performed By: #### H CT ####[facility] (DEFAULT)[address] [place] [address] INVASIVE CARDIOVASCULAR PROC EDUREon 04-04-2025 INVASIVE CARDIOVASCULAR PROCEDURE Impression Obstructive moapa coronary artery disease Patent coronary bypass grafts Recommendations: Continue aggressive risk factor modification and medical management for CAD. Consider medical management of NSTEMI, 48 hours of heparin (can start 4 hours after hemostasis of femoral access site) and DAPT for at least 6-12 months Access: R femoral access, sheath left in for removal when ACT is below 160 L radial artery, TR band used for hemostasis Coronary angiography: The left main is angiographically normal. The left anterior descending (LAD) is a large vessel with 90% ISR of previously placed proximal LAD stent The left circumflex (LCx) has proximal 80% stenosis distal to the first obtuse marginal branch The right coronary artery is dominant with mid 80% stenosis Coronary bypass angiography ARORA-LAD graft is widely patent. There is some tapering near the distal anastomosis that is favored to represent competitive flow rather than obstructive stenosis. Required use of L radial artery access in order to engage SVG-RCA is widely patent SVG-OM is widely patent Table formatting from the original result was not included. Images from the original result were not included. Meir Landrum Invasive Cardiology Cath Procedure Ordering Physician: BONY GARCIA Order #: [id number] Study Date: 04/02/2025 Patient Information Name MRN Description Meir Richard Randell [id number] y.o. male Location Name Address [facility] [address] [facility] [address] Physicians Panel Physicians Referring Physician Case Authorizing Physician Nicole Salinas MD, PhD (Primary) MD Bony Schuster MD, PhD Joaquim Flanagan MD (Fellow) Procedures CORONARY ANGIOGRAM CORONARY BYPASS GRAFT ANGIOGRAM Indications NSTEMI (non-ST elevated myocardial infarction) [I21.4 (ICD-10-CM)] Conclusion Impression Obstructive moapa coronary artery disease Patent coronary bypass grafts Recommendations: Continue aggressive risk factor modification and medical management for CAD. Consider medical management of NSTEMI, 48 hours of heparin (can start 4 hours after hemostasis of femoral access site) and DAPT for at least 6-12 months Access: R femoral access, sheath left in for removal when ACT is below 160 L radial artery, TR band used for hemostasis Coronary angiography: The left main is angiographically normal. The left anterior descending (LAD) is a large vessel with 90% ISR of previously placed proximal LAD stent The left circumflex (LCx) has proximal 80% stenosis distal to the first obtuse marginal branch The right coronary artery is dominant with mid 80% stenosis Coronary bypass angiography ARORA-LAD graft is widely patent. There is some tapering near the distal anastomosis that is favored to represent competitive flow rather than obstructive stenosis. Required use of L radial artery access in order to engage SVG-RCA is widely patent SVG-OM is widely patent Medical History Diagnosis Date Comment Source Arthritis CAD (coronary artery disease) Cardiac angina Congestive heart failure Diverticulitis GERD (gastroesophageal reflux disease) Hyperlipidemia VT (myocardial infarction) Medical History - Pertinent Negatives Pertinent Negative Date Comment Source Arrhythmia 02/22/2025 Atrial fibrillation 02/22/2025 Cardiomyopathy 02/22/2025 Claudication 02/22/2025 Congenital heart disease 02/22/2025 COPD (chronic obstructive pulmonary disease) 02/03/2025 Diabetes mellitus 02/03/2025 Essential hypertension, benign 02/03/2025 Hepatitis 02/03/2025 Hyperthyroidism 02/22/2025 Hypothyroidism 02/22/2025 Liver disease 02/03/2025 Migraine 02/03/2025 GO (obstructive sleep apnea) 02/03/2025 Pacemaker 02/03/2025 Renal disease 02/03/2025 Seizure 02/03/2025 Sickle cell anemia 02/22/2025 Stroke 02/03/2025 TIA (transient ischemic attack) 02/03/2025 Vascular disease 02/03/2025 Procedure The risks and alternatives of the procedure and sedation were explained. Informed consent was obtained. The patient was brought to the canvas shop laborer and placed on the table. The planned puncture sites were prepped and draped in the usual sterile fashion. Fluoro Dose Fluoro Dose: 86.7 Gy-cm^2 Complications Complications documented before study signed (04/04/2025 1:06 PM) No complications were associated with this study. Documented by Joaquim Flanagan MD - 04/02/2025 3:35 PM Cardiac Bin Piler Attending Physician Statement and Signature I have personally performed and/or personally supervised and was present for this entire procedure, including the review and interpretation of all images and physiologic tracings acquired during (more content not included)... Normal [facility] IONIZED CALCIUM, WHOLE BLOOD Ordered By: Raquel Smith on 04-04-2025 Calcium.ionized (Bld) [Moles/Vol] 4.99 mg/dL 4.60 - 5.30 mg/dL [facility] Interpretation and review of laboratory results Normal [facility] IONIZED CALCIUM, WHOLE BLOOD on 04-04-2025 ICA 4.99 mg/dL Normal 4.60-5.30 [facility] Comment on above: Performed By: #### C ANDIDA AURIS SCREEN BY PCR #### [facility] (DEFAULT) [address] [place] [address] ICA 3.89 mg/dL Low 4.60-5.30 [facility] Comment on above: Performed By: #### X M #### [facility] (DEFAULT) [address] [place] [address] IONIZED CALCIUM, WHOLE BLOOD Ordered By: Adam Flores on 04-04-2025 Calcium.ionized (Bld) [Moles/Vol] 3.89 mg/dL Low 4.60 - 5.30 mg/dL [facility] Interpretation and review of laboratory results Abnormal [facility] MAGNESIUMon 04-04-2025 Interpretation and review of laboratory results Normal [facility] Magnesium [Mass/Vol] 2.1 mg/dL 1.6 - 2 .6 mg/dL [facility] Magnesium [Mass/Vol] 2.1 mg/dL Normal 1.6-2.6 [facility] Comment on above: Performed By: #### C ANDIDA AURIS SCREEN BY PCR #### [facility] (DEFAULT) [address] [place], [place] [id number] MR Heart cine for blood flow velocity mapping W contrast Delmi 04-04-2025 [facility] CMR Report Name: MEIR LANDRUM : Scan Date: Electronically signed by Bella Tobias 14:40:33 VITALS HEIGHT: 70 in (178 cm) WEIGHT: 212 lbs (96 kgs) BSA: 2.14 m^2 BP: 113 / 63 mmHg BASELINE HR: 66 BPM HEART RHYTHM: Normal Sinus Rhythm FINAL IMPRESSION Mild systolic dysfunction with regional wall motion abnormalities and predominantly ischemic fibrosis. CRITICAL RESULT: No SUMMARY 69 yo M with HTN, HLD, multivessel CAD s/p PCI LAD & CABG (ARORA-LAD, SVG-RCA, SVG-OM), HFmrEF/ICM, admitted with NSTEMI; CMR for further assessment; CARDIAC MRI LEFT VENTRICLE: Normal left ventricular size with normal wall thickness. Mild systolic dysfunction with thinning and focal akinesis of the mid anteroseptal wall - partially extending into the mid inferoseptal wall - as well as focal akinesis of the mid inferior wall. Quantitative LVEF 48 %. LGE: Late gadolinium enhancement imaging demonstrates subendocardial infarct scar in the basal anteroseptal wall involving approximately 25% of wall thickness, near transmural infarct scar in the mid septal wall as well as focal near transmural infarct scar in the mid inferior wall. There is also mild patchy midmyocardial nonischemic fibrosis in the basal septal/inferior/inferol ateral adams as well as superior/inferior RV insertion point fibrosis. MYOCARDIUM: Normal moapa T1 values with no evidence of diffuse interstitial expansion (ECV 25%, normal <31%). No evidence of myocardial edema/inflammation on T2 mapping. RIGHT VENTRICLE: Normal right ventricular size with normal systolic function. Quantitative RVEF 56 %. LA/RA SEPTUM: Fatty infiltration. LEFT ATRIUM: LA cavity size is normal. RIGHT ATRIUM: RA cavity size is upper limits of normal. PERICARDIUM: Epicardial fat pad with trivial circumferential pericardial effusion. AORTIC VALVE: Peak aortic velocity 1.2 m/s. Trivial aortic regurgitation. Assessment by phase contrast imaging: regurgitant volume 6 ml, regurgitant fraction 8%. MITRAL VALVE: Trivial mitral regurgitation. TRICUSPID VALVE: Trivial tricuspid regurgitation. PULMONIC VALVE: Peak aortic velocity 0.8 m/s. Trivial regurgitation. Assessment by phase contrast imaging: regurgitant volume 4 ml, regurgitant fraction 4%. STUDY QUALITY: Study quality is good. OTHER FINDINGS: Evidence of prior median sternotomy. Mild parenchymal pulmonary changes not further characterized on this cardiac oriented exam. CORE EXAM MEASUREMENTS VOLUMETRIC ANALYSIS . . LV Reference RV Reference +------+ +--- ---+ +------ + + EDV ml 144 (109-191) 118 (105-205) ml/m^2 67 (60-95) 55 (56-101) ESV ml 75.5 (27-72) 51.8 (20-80) ml/m^2 35 (14-36) 24 (11-40) CO L/min 4.52 4.37 L/min/m^2 2.11 2.04 MASS g 120 (107-183) g/m^2 56 (57-90) SV ml 68 (73-129) 66 (71-139) ml/m^2 32 (40-64) 31 (37-69) EF % 48 (58-76) 56 (55-81) '------+ +--- ---+ +------ + ' LV DIMENSIONS WALL THICKNESS - ANTEROSEPTAL: 0.9 cm WALL THICKNESS - INFEROLATERAL: 0.7 cm LV NICOLE: 5.5 cm LA DIMENSIONS (LV SYSTOLE) AREA - 2 CHAMBER: 24 cm^2 LENGTH - 2 CHAMBER: 5.8 cm AREA - 4 CHAMBER: 24 cm^2 LENGTH - 4 CHAMBER: 6.6 cm VOLUME: 84 ml VOLUME NORMALIZED: 39.5 ml/m^2 RA DIMENSIONS (RV SYSTOLE) --------- (more content not included)... CARDIOLOGY Bella Tobias MD - 04/04/2025 [facility] CMR Report Name: MEIR LANDRUM : Scan Date: Electronically signed by Bella Tobias 14:40:33 VITALS ====== ======== HEIGHT: 70 in (178 cm) WEIGHT: 212 lbs (96 kgs) BSA: 2.14 m^2 BP: 113 / 63 mmHg BASELINE HR: 66 BPM HEART RHYTHM: Normal Sinus Rhythm FINAL IMPRESSION ====== ======== Mild systolic dysfunction with regional wall motion abnormalities and predominantly ischemic fibrosis. CRITICAL RESULT: No SUMMARY ====== ======== 69 yo M with HTN, HLD, multivessel CAD s/p PCI LAD & CABG (ARORA-LAD, SVG-RCA, SVG-OM), HFmrEF/ICM, admitted with NSTEMI; CMR for further assessment; CARDIAC MRI LEFT VENTRICLE: Normal left ventricular size with normal wall thickness. Mild systolic dysfunction with thinning and focal akinesis of the mid anteroseptal wall - partially extending into the mid inferoseptal wall - as well as focal akinesis of the mid inferior wall. Quantitative LVEF 48 %. LGE: Late gadolinium enhancement imaging demonstrates subendocardial infarct scar in the basal anteroseptal wall involving approximately 25% of wall thickness, near transmural infarct scar in the mid septal wall as well as focal near transmural infarct scar in the mid inferior wall. There is also mild patchy midmyocardial nonischemic fibrosis in the basal septal/inferior/inferol ateral adams as well as superior/inferior RV insertion point fibrosis. MYOCARDIUM: Normal moapa T1 values with no evidence of diffuse interstitial expansion (ECV 25%, normal <31%). No evidence of myocardial edema/inflammation on T2 mapping. RIGHT VENTRICLE: Normal right ventricular size with normal systolic function. Quantitative RVEF 56 %. LA/RA SEPTUM: Fatty infiltration. LEFT ATRIUM: LA cavity size is normal. RIGHT ATRIUM: RA cavity size is upper limits of normal. PERICARDIUM: Epicardial fat pad with trivial circumferential pericardial effusion. AORTIC VALVE: Peak aortic velocity 1.2 m/s. Trivial aortic regurgitation. Assessment by phase contrast imaging: regurgitant volume 6 ml, regurgitant fraction 8%. MITRAL VALVE: Trivial mitral regurgitation. TRICUSPID VALVE: Trivial tricuspid regurgitation. PULMONIC VALVE: Peak aortic velocity 0.8 m/s. Trivial regurgitation. Assessment by phase contrast imaging: regurgitant volume 4 ml, regurgitant fraction 4%. STUDY QUALITY: Study quality is good. OTHER FINDINGS: Evidence of prior median sternotomy. Mild parenchymal pulmonary changes not further characterized on this cardiac oriented exam. CORE EXAM ====== ======== MEASUREMENTS ------ VOLUMETRIC ANALYSIS . . LV Reference RV Reference +------+ +--- ---+ +------ + + EDV ml 144 (109-191) 118 (105-205) ml/m^2 67 (60-95) 55 (56-101) ESV ml 75.5 (27-72) 51.8 (20-80) ml/m^2 35 (14-36) 24 (11-40) CO L/min 4.52 4.37 L/min/m^2 2.11 2.04 MASS g 120 (107-183) g/m^2 56 (57-90) SV ml 68 (73-129) 66 (71-139) ml/m^2 32 (40-64) 31 (37-69) EF % 48 (58-76) 56 (55-81) '------+ +--- ---+ +------ + ' LV DIMENSIONS WALL THICKNESS - ANTEROSEPTAL: 0.9 cm WALL THICKNESS - INFEROLATERAL: 0.7 cm LV NICOLE: 5.5 cm LA DIMENSIONS (LV SYSTOLE) AREA - 2 CHAMBER: 24 cm^2 LENGTH - 2 CHAMBER: 5.8 cm AREA - 4 CHAMBER: 24 cm^2 LENGTH - 4 CHAMBER: 6.6 cm VOLUME: 84 ml VOLUME NORMALIZED: 39.5 ml/m^2 RA DIMENSIONS (RV SYSTOLE) AREA - 4 CHAMBER: 25 cm^2 EXTRACELLULAR VOLUME MEASUREMENT PRE-CONTRAST T1 MYOCARDIUM: 1047 msec PRE-CONTRAST T1 LV CAVITY: 1692 msec POST-CONTRAST T1 MYOCARDIUM: 421 msec POST-CONTRAST T1 LV CAVITY: 247 msec HEMATOCRIT: 39.6 % HEMATOCRIT DATE: ECV: 24.8 % SCAN INFO ====== ======== GENERAL (more content not included)... [facility] Radiology Study observation (narrative) [facility] MRI CARDIAC WITH CONTRAST W/ VELOCITY FLOW [facility] 04-04-2025 MRI CARDIAC WITH CONTRAST W/VELOCITY FLOW MAP [facility] CMR Report Name: MEIR LANDRUM : Scan Date: Electronically signed by Bella Tobias 14:40:33 VITALS HEIGHT: 70 in (178 cm) WEIGHT: 212 lbs (96 kgs) BSA: 2.14 m^2 BP: 113 / 63 mmHg BASELINE HR: 66 BPM HEART RHYTHM: Normal Sinus Rhythm FINAL Mild systolic dysfunction with regional wall motion abnormalities and predominantly ischemic fibrosis. CRITICAL RESULT: No SUMMARY 69 yo M with HTN, HLD, multivessel CAD s/p PCI LAD & CABG (ARORA-LAD, SVG-RCA, SVG-OM), HFmrEF/ICM, admitted with NSTEMI; CMR for further assessment; CARDIAC MRI LEFT VENTRICLE: Normal left ventricular size with normal wall thickness. Mild systolic dysfunction with thinning and focal akinesis of the mid anteroseptal wall - partially extending into the mid inferoseptal wall - as well as focal akinesis of the mid inferior wall. Quantitative LVEF 48 %. LGE: Late gadolinium enhancement imaging demonstrates subendocardial infarct scar in the basal anteroseptal wall involving approximately 25% of wall thickness, near transmural infarct scar in the mid septal wall as well as focal near transmural infarct scar in the mid inferior wall. There is also mild patchy midmyocardial nonischemic fibrosis in the basal septal/inferior/inferol ateral adams as well as superior/inferior RV insertion point fibrosis. MYOCARDIUM: Normal moapa T1 values with no evidence of diffuse interstitial expansion (ECV 25%, normal <31%). No evidence of myocardial edema/inflammation on T2 mapping. RIGHT VENTRICLE: Normal right ventricular size with normal systolic function. Quantitative RVEF 56 %. LA/RA SEPTUM: Fatty infiltration. LEFT ATRIUM: LA cavity size is normal. RIGHT ATRIUM: RA cavity size is upper limits of normal. PERICARDIUM: Epicardial fat pad with trivial circumferential pericardial effusion. AORTIC VALVE: Peak aortic velocity 1.2 m/s. Trivial aortic regurgitation. Assessment by phase contrast imaging: regurgitant volume 6 ml, regurgitant fraction 8%. MITRAL VALVE: Trivial mitral regurgitation. TRICUSPID VALVE: Trivial tricuspid regurgitation. PULMONIC VALVE: Peak aortic velocity 0.8 m/s. Trivial regurgitation. Assessment by phase contrast imaging: regurgitant volume 4 ml, regurgitant fraction 4%. STUDY QUALITY: Study quality is good. OTHER FINDINGS: Evidence of prior median sternotomy. Mild parenchymal pulmonary changes not further characterized on this cardiac oriented exam. CORE EXAM MEASUREMENTS VOLUMETRIC ANALYSIS . . LV Reference RV Reference +------+ +--- ---+ +------ + + EDV ml 144 (109-191) 118 (105-205) ml/m^2 67 (60-95) 55 (56-101) ESV ml 75.5 (27-72) 51.8 (20-80) ml/m^2 35 (14-36) 24 (11-40) CO L/min 4.52 4.37 L/min/m^2 2.11 2.04 MASS g 120 (107-183) g/m^2 56 (57-90) SV ml 68 (73-129) 66 (71-139) ml/m^2 32 (40-64) 31 (37-69) EF % 48 (58-76) 56 (55-81) '------+ +--- ---+ +------ + ' LV DIMENSIONS WALL THICKNESS - ANTEROSEPTAL: 0.9 cm WALL THICKNESS - INFEROLATERAL: 0.7 cm LV NICOLE: 5.5 cm LA DIMENSIONS (LV SYSTOLE) AREA - 2 CHAMBER: 24 cm^2 LENGTH - 2 CHAMBER: 5.8 cm AREA - 4 CHAMBER: 24 cm^2 LENGTH - 4 CHAMBER: 6.6 cm VOLUME: 84 ml VOLUME NORMALIZED: 39.5 ml/m^2 RA DIMENSIONS (RV SYSTOLE) AREA - 4 CHAMBER: 25 cm^2 EXTRACELLULAR VOLUME MEASUREMENT PRE-CONTRAST T1 MYOCARDIUM: 1047 msec PRE-CONTRAST T1 LV CAVITY: 1692 msec POST-CONTRAST T1 MYOCARDIUM: 421 msec POST-CONTRAST T1 LV CAVITY: 247 msec HEMATOCRIT: 39.6 % HEMATOCRIT DATE: ECV: 24.8 % SCAN INFO GENERAL SCANNER OTOLARYNGOLOGY NURSE: Ubalo Charisma (more content not included)... Normal [facility] No Panel Informationon 04-04 [facility] PTTon 04-04-2025 aPTT Coag (PPP) [Time] 78.1 s High [facility] Interpretation and review of laboratory results Abnormal [facility] aPTT Coag (Bld) [Time] 78.1 s High 24.0-34.3 [facility] Comment on above: Performed By: #### I CA #### [facility] (DEFAULT) [address] [place] [address] aPTT Coag (Bld) [Time] 76.7 s High 24.0-34.3 [facility] Comment on above: Order Comment: After initiation a PTT should be checked every 6 hours from time of last dose change or, if dose has not changed, 6 hours after last PTT result posted.? The frequent monitoring should occur until PTT in goal range for two consecutive lab draws without dose changes at which time PTTs may be checked no less frequently than every 12 hours.? If dose requires a change, PTT should be monitored at least every 6 hours until titration is no longer indicated, then as directed above.? If PTT above goal range refer to medication administration instructions. Performed By: #### S URGP #### [facility] (DEFAULT) [address] [address] aPTT Coag (Bld) [Time] 124.4 s High 24.0-34.3 [facility] Comment on above: Order Comment: After initiation a PTT should be checked every 6 hours from time of last dose change or, if dose has not changed, 6 hours after last PTT result posted.? The frequent monitoring should occur until PTT in goal range for two consecutive lab draws without dose changes at which time PTTs may be checked no less frequently than every 12 hours.? If dose requires a change, PTT should be monitored at least every 6 hours until titration is no longer indicated, then as directed above.? If PTT above goal range refer to medication administration instructions. Performed By: #### X M #### [facility] (DEFAULT) [address] [place] [id number] PTTOrdered By: Storm Burnham on 04-04-2025 aPTT Coag (PPP) [Time] 76.7 s High [facility] Interpretation and review of laboratory results Abnormal [facility] PTTOrdered By: Alie tristan on 04-04-2025 aPTT Coag (PPP) [Time] 124.4 s High [facility] Interpretation and review of laboratory results Abnormal [facility] Heart limitedon 5 Body surface area Derived from formula 2.15 m2 [facility] EF SP 2CH 61 [facility] EF SP 4CH 52 [facility] EST RAP 3 mmHg [facility] FS 19 % [facility] IVS 0.93 cm [facility] LV EDV SP 2CH 75 mL [facility] LV EDV SP 4CH 56 mL [facility] LV ESV SP 2CH 29 mL [facility] LV ESV SP 4CH 27 mL [facility] LV mass 129.89 g [facility] LV Mass Index 60.4 g/m2 [facility] LV RWT 0.38 [facility] LVIDD 4.48 cm [facility] LVIDS 3.62 cm [facility] PW 0.85 cm [facility] NSTEMI, limited on c all echo by fellow, CHITO reviewed 04/04/25. Mild segmental LV dysfunction, basal septal akinesis, lateral hypokinesis, EF ~45%. Grossly normal RV. Valves not assessed in data. Left Ventricle Chamber size is normal. Wall motion abnormality: See wall scoring diagram. Ejection fraction is mildly reduced. Diastolic function not assessed. Right Ventricle Chamber size is normal. Systolic function is low normal. Left Atrium Left atrium not assessed. Right Atrium Right atrium not assessed. IVC/SVC The inferior vena cava structure is normal. Mitral Valve Normal appearing leaflets. Mitral valve function not assessed. Tricuspid Valve Normal leaflets. Tricuspid valve function not assessed. Aortic Valve Non-specific thickening. Aortic valve function not assessed. Pulmonic Valve Pulmonic valve not assessed. Pericardium No pericardial effusion. Septum Atrial septum not assessed. Pulmonary Artery Pulmonary artery not assessed. Aorta Aorta not assessed. Study Details A limited echocardiography study (including M-mode) was performed. Overall study quality was fair. Study limitations include patient body habitus and patient's inability to turn. Imaging system used: [employer]. Indications Indications for study: LV function. Wall Scoring Score Index: 1.47 The following segments are akinetic: basal anteroseptal and basal inferoseptal. The following segments are hypokinetic: basal inferolateral, basal anterolateral, mid inferolateral and mid anterolateral. All other segments are normal. [facility] CBC,PLATELETSon 04-03-2025 Erythrocyte distribution width (RBC) [Ratio] 13 % 10.9 - 14.3 % [facility] Hematocrit (Bld) [Volume fraction] 39.5 % Low 39.6 - 48.8 % [facility] Hemoglobin (Bld) [Mass/Vol] 13.1 g/dL Low 13.4 - 16.8 g/dL [facility] Interpretation and review of laboratory results Abnormal [facility] MCH (RBC) [Entitic mass] 30.5 pg 26.1 - 33.3 pg [facility] MCHC (RBC) [Mass/Vol] 33.2 g/dL 31.9 - 36.5 g/dL [facility] MCV (RBC) [Entitic vol] 91.9 fL 79.0 - 94.5 fL [facility] Platelet mean volume (Bld) [Entitic vol] 8.2 fL Low 8.7 - 12.3 fL [facility] Platelets (Bld) [#/Vol] 223 10*3/uL 146 - 337 K/uL [facility] RBC (Bld) [#/Vol] 4.3 10*6/uL Low [facility] WBC (Bld) [#/Vol] 10.22 10*3/uL High 3.73 - 10.10 K/uL [facility] Hematocrit (Bld) [Volume fraction] 39.5 % Low 39.6-48.8 [facility] Comment on above: Performed By: #### X M #### [facility] (DEFAULT) [address] [place] [address] Hemoglobin (Bld) [Mass/Vol] 13.1 g/dL Low 13.4-16.8 [facility] Comment on above: Performed By: #### X M #### [facility] (DEFAULT) [address] [place] [address] 31868 MCV (RBC) [Entitic vol] 91.9 fL Normal 79.0-94.5 [facility] Comment on above: Performed By: #### X M #### [facility] (DEFAULT) [address] [place] [address]14 Mean Cell Hgb 30.5 pg Normal 26.1-33.3 [facility] Comment on above: Performed By: #### X M #### [facility] (DEFAULT) [address] [place] [address] Mean Cell Hgb Conc 33.2 g/dL Normal 31.9-36.5 [facility] Comment on above: Performed By: #### X M #### [facility] (DEFAULT) [address] [address] Platelet mean volume (Bld) [Entitic vol] 8.2 fL Low 8.7-12.3 [facility] Comment on above: Performed By: #### X M #### [facility] (DEFAULT) [address] [address] Platelets (Bld) [#/Vol] 223 10*3/uL Normal 146-337 [facility] Comment on above: Performed By: #### X M #### [facility] (DEFAULT) [address] [address] RBC (Bld) [#/Vol] 4.30 10*6/uL Low 4.38-5.83 [facility] Comment on above: Performed By: #### X M #### [facility] (DEFAULT) [address] [address] RBC Distribution 13.0 % Normal 10.9-14.3 [facility] Comment on above: Performed By: #### X M #### [facility] (DEFAULT) [address] [address] WBC (Bld) [#/Vol] 10.22 10*3/uL High 3.73-10.10 [facility] Comment on above: Performed By: #### X M #### [facility] (DEFAULT) [address] [address] CHEM 7 (LYTES,BUN,CREA,GLUC) on 04-03-2025 Anion gap [Moles/Vol] 13 mmol/L 7 - 17 mmol/L [facility] Chloride [Moles/Vol] 106 mmol/L 98 - 10 8 mmol/L [facility] CO2 [Moles/Vol] 22 mmol/L 21 - 31 mmol/L [facility] Creatinine [Mass/Vol] 1.11 mg/dL 0.70 - 1.30 mg/dL [facility] eGFR, CKD-EPI, Male 75 - PINF [facility] Comment on above: Reported eGFR is bas ed on the CKD-EPI 2020 equation using creatinine, age, and sex. Glucose [Mass/Vol] 86 mg/dL 70 - 179 mg/dL [facility] Osmolality Calc [Osmolality] 287 [facility] Potassium [Moles/Vol] 4.1 mmol/L 3.5 - 5.0 mmol/L [facility] Sodium [Moles/Vol] 137 mmol/L 135 - 145 mmol/L [facility] Urea nitrogen [Mass/Vol] 15 mg/dL 7 - 25 mg/dL [facility] Urea nitrogen/Creatinine [Mass ratio] 14 mg/mg [facility] Anion gap [Moles/Vol] 13 mmol/L Normal 7-17 [facility] Comment on above: Performed By: #### X M #### [facility] (DEFAULT) [address] [address] Chloride [Moles/Vol] 106 mmol/L Normal 98-108 [facility] Comment on above: Performed By: #### X M #### [facility] (DEFAULT) [address] [address] CO2 [Moles/Vol] 22 mmol/L Normal 21-31 [facility] Comment on above: Performed By: #### X M #### [facility] (DEFAULT) [address] [address] Creatinine [Mass/Vol] 1.11 mg/dL Normal 0.70-1.30 [facility] Comment on above: Performed By: #### X M #### [facility] (DEFAULT) [address] [address] GFR/1.73 sq M.predicted among non-blacks MDRD (S/P/Bld) [Vol rate/Area] 73 mL/min/{1.73_m2} Normal >=60 [facility] Comment on above: Result Comment: Repo rted eGFR is based on the CKD-EPI 2020 equation using creatinine, age, and sex. Performed By: #### X M #### [facility] (DEFAULT) [address] [place] [address] Glucose [Mass/Vol] 86 mg/dL Normal Nonfastin -179 mg/dL; Fastin-99 [facility] Comment on above: Performed By: #### X M #### [facility] (DEFAULT) [address] [place] [address] Osmolality [Osmolality] 287 mosm/kg Normal 278-305 [facility] Comment on above: Performed By: #### X M #### [facility] (DEFAULT) [address] [place] [address] Potassium [Moles/Vol] 4.1 mmol/L Normal 3.5-5.0 [facility] Comment on above: Performed By: #### X M #### [facility] (DEFAULT) [address] [place] [address] Sodium [Moles/Vol] 137 mmol/L Normal 135-145 [facility] Comment on above: Performed By: #### X M #### [facility] (DEFAULT) [address] [place] [address] Urea nitrogen [Mass/Vol] 15 mg/dL Normal 7-25 [facility] Comment on above: Performed By: #### X M #### [facility] (DEFAULT) [address] [place] [address] Urea nitrogen/Creatinine [Mass ratio] 14 mg/mg Normal [facility] Comment on above: Performed By: #### X M #### [facility] (DEFAULT) [address] [place] [address] HIGH SENSITIVITY TROPONIN I - SINGLE ORDEROrdered By: Anuj Ware on 04-03-2025 Interpretation and review of laboratory results Abnormal [facility] Troponin I.cardiac High sensitivity method [Mass/Vol] 257 ng/L High NINF - 53 ng/L [facility] Comment on above: Suggestive of myocar dial injury [facility] HIGH SENSITIVITY TROPONIN I - SINGLE ORDERon 04-03-2025 hs-Troponin I 257 ng/L High <53 [facility] Comment on above: Order Comment: Acute Coronary Syndrome (ACS): Initial Evaluation and Management:[email or web address] [email or web address] Result Comment: Sugg estive of myocardial injury Performed By: #### L ABHSTI1 ####[facility] (DEFAULT)[address] [place] [address] Interpretation and review of laboratory results Abnormal [facility] Troponin I.cardiac High sensitivity method [Mass/Vol] 359 ng/L High NINF - 53 ng/L [facility] Comment on above: Suggestive of myocar dial injury [facility] hs-Troponin I 359 ng/L High <53 [facility] Comment on above: Order Comment: Acute Coronary Syndrome (ACS): Initial Evaluation and Management:[email or web address] [email or web address]%20Coronary%20Syndrome.pdf#search=troponin Result Comment: Sugg estive of myocardial injury Performed By: #### S URGP #### [facility] (DEFAULT) [address] [place] [address] hs-Troponin I 414 ng/L High <53 [facility] Comment on above: Order Comment: This test was performed using a real-time PCR assay. This test was developed, and its performance characteristics determined by [facility]. It has not been cleared or approved by the FDA. The laboratory is regulated under CLIA as qualified to perform high-complexity testing. This test is used for clinical purposes. It should not be regarded as investigational or for research. Result Comment: Sugg estive of myocardial injury Performed By: #### C PENNIE DOOLEY SCREEN BY PCR #### [facility] (DEFAULT) [address] [place] [address] hs-Troponin I 508 ng/L High <53 [facility] Comment on above: Order Comment: Acute Coronary Syndrome (ACS): Initial Evaluation and Management:[email or web address] [email or web address]/Danis delines/Acute%20Coronary%20Syndrome.pdf#search=troponin Result Comment: Sugg estive of myocardial injury Performed By: #### L ABHSTI1 ####[facility] (DEFAULT)[address] [place] [address] hs-Troponin I 436 ng/L High <53 [facility] Comment on above: Order Comment: Acute Coronary Syndrome (ACS): Initial Evaluation and Management:[email or web address] [email or web address]%20Coronary%20Syndrome.pdf#search=troponin Result Comment: Sugg estive of myocardial injury Performed By: #### X M #### [facility] (DEFAULT) [address] [place] [address] HIGH SENSITIVITY TROPONIN I - SINGLE ORDEROrdered By: Nicole Powers on 04-03-2025 Interpretation and review of laboratory results Abnormal [facility] Troponin I.cardiac High sensitivity method [Mass/Vol] 414 ng/L High NINF - 53 ng/L [facility] Comment on above: Suggestive of myocar dial injury [facility] HIGH SENSITIVITY TROPONIN I - SINGLE ORDEROrdered By: Marcelle Duenas on 04-03-2025 Interpretation and review of laboratory results Abnormal [facility] Troponin I.cardiac High sensitivity method [Mass/Vol] 436 ng/L High NINF - 53 ng/L [facility] Comment on above: Suggestive of myocar dial injury [facility] HIGH SENSITIVITY TROPONIN I - SINGLE ORDEROrdered By: Tiffany Dodson on 04-03-2025 Interpretation and review of laboratory results Abnormal [facility] Troponin I.cardiac High sensitivity method [Mass/Vol] 508 ng/L High NINF - 53 ng/L [facility] Comment on above: Suggestive of myocar dial injury [facility] PTTon 04-03-2025 aPTT Coag (PPP) [Time] 80.4 s High [facility] Interpretation and review of laboratory results Abnormal [facility] aPTT Coag (Bld) [Time] 80.4 s High 24.0-34.3 [facility] Comment on above: Order Comment: After initiation a PTT should be checked every 6 hours from time of last dose change or, if dose has not changed, 6 hours after last PTT result posted.? The frequent monitoring should occur until PTT in goal range for two consecutive lab draws without dose changes at which time PTTs may be checked no less frequently than every 12 hours.? If dose requires a change, PTT should be monitored at least every 6 hours until titration is no longer indicated, then as directed above.? If PTT above goal range refer to medication administration instructions. Performed By: #### X M #### [facility] (DEFAULT) [address] [address] aPTT Coag (PPP) [Time] 63.2 s High [facility] Interpretation and review of laboratory results Abnormal [facility] aPTT Coag (Bld) [Time] 63.2 s High 24.0-34.3 [facility] Comment on above: Order Comment: After initiation a PTT should be checked every 6 hours from time of last dose change or, if dose has not changed, 6 hours after last PTT result posted.? The frequent monitoring should occur until PTT in goal range for two consecutive lab draws without dose changes at which time PTTs may be checked no less frequently than every 12 hours.? If dose requires a change, PTT should be monitored at least every 6 hours until titration is no longer indicated, then as directed above.? If PTT above goal range refer to medication administration instructions. Performed By: #### X MPO #### [facility] (DEFAULT) [address] [place] [address] aPTT Coag (PPP) [Time] 84.8 s High [facility] Interpretation and review of laboratory results [facility] Coag (Bld) [Time] 84.8 s High 24.0-34.3 [facility] Comment on above: Order Comment: After initiation a PTT should be checked every 6 hours from time of last dose change or, if dose has not changed, 6 hours after last PTT result posted.? The frequent monitoring should occur until PTT in goal range for two consecutive lab draws without dose changes at which time PTTs may be checked no less frequently than every 12 hours.? If dose requires a change, PTT should be monitored at least every 6 hours until titration is no longer indicated, then as directed above.? If PTT above goal range refer to medication administration instructions. Performed By: #### F IB, PTPTT #### [facility] (DEFAULT) [address] [address] aPTT Coag (Bld) [Time] 67.3 s High 24.0-34.3 [facility] Comment on above: Order Comment: After initiation a PTT should be checked every 6 hours from time of last dose change or, if dose has not changed, 6 hours after last PTT result posted.? The frequent monitoring should occur until PTT in goal range for two consecutive lab draws without dose changes at which time PTTs may be checked no less frequently than every 12 hours.? If dose requires a change, PTT should be monitored at least every 6 hours until titration is no longer indicated, then as directed above.? If PTT above goal range refer to medication administration instructions. Performed By: #### F IB, PTPTT #### [facility] (DEFAULT) [address] [place] [address] PTTOrdered By: Xiomara hopson 04-03-2025 aPTT Coag (PPP) [Time] 67.3 s High [facility] Interpretation and review of laboratory results Abnormal [facility] ACT* LOW RANGE, POCon 2024 ACT LOW RANGE, POC 163 High [facility] Interpretation and review of laboratory results Abnormal [facility] Test performed at address of the patient encounter. [facility] ACT LOW RANGE, POC 231 High [facility] Interpretation and review of laboratory results Abnormal [facility] Test performed at address of the patient encounter. [facility] JL AURIS SCREEN BY PCRO rdered By: Laurence Alcala on 04-02-2025 Jl auris Screen by PCR Not detected Not Detected [facility] Interpretation and review of laboratory results Normal [facility] This test was perfor med using a real-time PCR assay. [facility] JL AURIS SCREEN BY PCRo n 04-02-2025 Jl auris Screen by PCR Not detected Normal Not Detected [facility] Comment on above: Order Comment: This test was performed using a real-time PCR assay. Performed By: #### X M #### [facility] (DEFAULT) [address] [place] [address] CBC,PLATELETSon 04-02-2025 Erythrocyte distribution width (RBC) [Ratio] 13.2 % 10.9 - 14.3 % [facility] Hematocrit (Bld) [Volume fraction] 43.8 % 39.6 - 48.8 % [facility] Hemoglobin (Bld) [Mass/Vol] 14.2 g/dL 13.4 - 16.8 g/dL [facility] Interpretation and review of laboratory results Abnormal [facility] MCH (RBC) [Entitic mass] 30.1 pg 26.1 - 33.3 pg [facility] MCHC (RBC) [Mass/Vol] 32.4 g/dL 31.9 - 36.5 g/dL [facility] MCV (RBC) [Entitic vol] 93 fL 79.0 - 94.5 fL [facility] Platelet mean volume (Bld) [Entitic vol] 8.1 fL Low 8.7 - 12.3 fL [facility] Platelets (Bld) [#/Vol] 303 10*3/uL 146 - 337 K/uL [facility] RBC (Bld) [#/Vol] 4.71 10*6/uL [facility] WBC (Bld) [#/Vol] 10.9 10*3/uL High 3.73 - 10.10 K/uL [facility] Hematocrit (Bld) [Volume fraction] 43.8 % Normal 39.6-48.8 [facility] Comment on above: Performed By: #### F IB, PTPTT #### [facility] (DEFAULT) [address] [place] [address] Hemoglobin (Bld) [Mass/Vol] 14.2 g/dL Normal 13.4-16.8 [facility] Comment on above: Performed By: #### F IB, PTPTT #### [facility] (DEFAULT) [address] [place] [address] MCV (RBC) [Entitic vol] 93.0 fL Normal 79.0-94.5 [facility] Comment on above: Performed By: #### F IB, PTPTT #### [facility] (DEFAULT) [address] [place] [address] Mean Cell Hgb 30.1 pg Normal 26.1-33.3 [facility] Comment on above: Performed By: #### F IB, PTPTT #### [facility] (DEFAULT) [address] [place] [address] Mean Cell Hgb Conc 32.4 g/dL Normal 31.9-36.5 [facility] Comment on above: Performed By: #### F IB, PTPTT #### [facility] (DEFAULT) [address] [place] [address] Platelet mean volume (Bld) [Entitic vol] 8.1 fL Low 8.7-12.3 [facility] Comment on above: Performed By: #### F IB, PTPTT #### [facility] (DEFAULT) [address] [place] [address] Platelets (Bld) [#/Vol] 303 10*3/uL Normal 146-337 [facility] Comment on above: Performed By: #### F IB, PTPTT #### [facility] (DEFAULT) [address] [place] [address] RBC (Bld) [#/Vol] 4.71 10*6/uL Normal 4.38-5.83 [facility] Comment on above: Performed By: #### F IB, PTPTT #### [facility] (DEFAULT) [address] [place] [address] 76122 RBC Distribution 13.2 % Normal 10.9-14.3 [facility] Comment on above: Performed By: #### F IB, PTPTT #### [facility] (DEFAULT) [address] [place] [address] 25914 WBC (Bld) [#/Vol] 10.90 10*3/uL High 3.73-10.10 [facility] Comment on above: Performed By: #### F IB, PTPTT #### [facility] (DEFAULT) [address] [place] [address] 76272 CHEM 7 (LYTES,BUN,CREA,GLUC) on 04-02-2025 Anion gap [Moles/Vol] 15 mmol/L 7 - 17 mmol/L [facility] Chloride [Moles/Vol] 105 mmol/L 98 - 10 8 mmol/L [facility] CO2 [Moles/Vol] 23 mmol/L 21 - 31 mmol/L [facility] Creatinine [Mass/Vol] 1.18 mg/dL 0.70 - 1.30 mg/dL [facility] eGFR, CKD-EPI, Male 70 - PINF [facility] Comment on above: Reported eGFR is bas ed on the CKD-EPI 2020 equation using creatinine, age, and sex. Glucose [Mass/Vol] 89 mg/dL 70 - 179 mg/dL [facility] Osmolality Calc [Osmolality] 291 [facility] Potassium [Moles/Vol] 4 mmol/L 3.5 - 5.0 mmol/L [facility] Sodium [Moles/Vol] 139 mmol/L 135 - 145 mmol/L [facility] Urea nitrogen [Mass/Vol] 16 mg/dL 7 - 25 mg/dL [facility] Urea nitrogen/Creatinine [Mass ratio] 14 mg/mg [facility] Anion gap [Moles/Vol] 15 mmol/L Normal 7-17 [facility] Comment on above: Performed By: #### X MPO #### [facility] (DEFAULT) [address] [place] [address] 80261 Chloride [Moles/Vol] 105 mmol/L Normal 98-108 [facility] Comment on above: Performed By: #### X MPO #### [facility] (DEFAULT) [address] [address] CO2 [Moles/Vol] 23 mmol/L Normal 21-31 [facility] Comment on above: Performed By: #### X MPO #### [facility] (DEFAULT) [address] [address] Creatinine [Mass/Vol] 1.18 mg/dL Normal 0.70-1.30 [facility] Comment on above: Performed By: #### X MPO #### [facility] (DEFAULT) [address] [place] [address] 98364 GFR/1.73 sq M.predicted among non-blacks MDRD (S/P/Bld) [Vol rate/Area] 68 mL/min/{1.73_m2} Normal >=60 [facility] Comment on above: Result Comment: Repo rted eGFR is based on the CKD-EPI 2020 equation using creatinine, age, and sex. Performed By: #### X MPO #### [facility] (DEFAULT) [address] [place] [address] 82619 Glucose [Mass/Vol] 89 mg/dL Normal Nonfastin -179 mg/dL; Fastin-99 [facility] Comment on above: Performed By: #### X MPO #### [facility] (DEFAULT) [address] [place] [address] Osmolality [Osmolality] 291 mosm/kg Normal 278-305 [facility] Comment on above: Performed By: #### X MPO #### [facility] (DEFAULT) [address] [place] [address] Potassium [Moles/Vol] 4.0 mmol/L Normal 3.5-5.0 [facility] Comment on above: Performed By: #### X MPO #### [facility] (DEFAULT) [address] [place] [address] Sodium [Moles/Vol] 139 mmol/L Normal 135-145 [facility] Comment on above: Performed By: #### X MPO #### [facility] (DEFAULT) [address] [place] [address] Urea nitrogen [Mass/Vol] 16 mg/dL Normal 7-25 [facility] Comment on above: Performed By: #### X MPO #### [facility] (DEFAULT) [address] [place] [address] 49322 Urea nitrogen/Creatinine [Mass ratio] 14 mg/mg Normal [facility] Comment on above: Performed By: #### X MPO #### [facility] (DEFAULT) [address] [place] [address] 71553 Cardiac catheterization stud yon 04-02-2025 [facility] Radiology Study observation (narrative) [facility] HEPATIC FUNCTION PANELon Albumin [Mass/Vol] 3.8 g/dL 3.5 - 5.0 g/dL [facility] ALP [Catalytic activity/Vol] 70 U/L 32 - 126 U/L [facility] ALT [Catalytic activity/Vol] 13 U/L 10 - 52 U/L [facility] AST [Catalytic activity/Vol] 20 U/L 10 - 39 U/L [facility] Bilirubin [Mass/Vol] 0.6 mg/dL NINF - 1.5 mg/dL [facility] Bilirubin.direct [Mass/Vol] mg/dL NINF - 0.3 mg/dL [facility] Protein [Mass/Vol] 6.5 g/dL 6.4 - 8.3 g/dL [facility] Albumin [Mass/Vol] 3.8 g/dL Normal 3.5-5.0 [facility] Comment on above: Performed By: #### X MPO #### [facility] (DEFAULT) [address] [place] [address] 42711 ALP [Catalytic activity/Vol] 70 U/L Normal 32-126 [facility] Comment on above: Performed By: #### X MPO #### [facility] (DEFAULT) [address] [place] [address] 69283 ALT [Catalytic activity/Vol] 13 U/L Normal 10-52 [facility] Comment on above: Performed By: #### X MPO #### [facility] (DEFAULT) [address] [place] [address] 89961 AST [Catalytic activity/Vol] 20 U/L Normal 10-39 [facility] Comment on above: Performed By: #### X MPO #### [facility] (DEFAULT) [address] [place] [address] 06151 Bilirubin [Mass/Vol] 0.6 mg/dL Normal <1.5 [facility] Comment on above: Performed By: #### X MPO #### [facility] (DEFAULT) [address] [place] [address] 21162 Bilirubin Direct < Normal <0.3 [facility] Comment on above: Performed By: #### X MPO #### [facility] (DEFAULT) [address] [place] [address] 80448 Protein [Mass/Vol] 6.5 g/dL Normal 6.4-8.3 [facility] Comment on above: Performed By: #### X MPO #### [facility] (DEFAULT) [address] [place] [address] 06524 HIGH SENSITIVITY TROPONIN I - SINGLE ORDEROrdered By: Nicola Peralta on 04-02-2025 Interpretation and review of laboratory results Abnormal [facility] Troponin I.cardiac High sensitivity method [Mass/Vol] 431 ng/L High NINF - 53 ng/L [facility] Comment on above: Suggestive of myocar dial injury [facility] HIGH SENSITIVITY TROPONIN I - SINGLE ORDERon 04-02-2025 hs-Troponin I 431 ng/L High <53 [facility] Comment on above: Order Comment: Acute Coronary Syndrome (ACS): Initial Evaluation and Management:[email or web address]/[email or web address]/Danis delines/Acute%20Coronary%20Syndrome.pdf#search=troponin Result Comment: Sugg estive of myocardial injury Performed By: #### F IB, PTPTT #### [facility] (DEFAULT) [address] [place] [address] Interpretation and review of laboratory results Abnormal [facility] Troponin I.cardiac High sensitivity method [Mass/Vol] 742 ng/L High NINF - 53 ng/L [facility] Comment on above: Suggestive of myocar dial injury [facility] hs-Troponin I 742 ng/L High <53 [facility] Comment on above: Order Comment: Acute Coronary Syndrome (ACS): Initial Evaluation and Management:https://[email or web address]/sites/ebm/Documents/Danis delines/Acute%20Coronary%20Syndrome.pdf#search=troponin Result Comment: Sugg estive of myocardial injury Performed By: #### S URGP #### [facility] (DEFAULT) [address] [address] Interpretation and review of laboratory results Abnormal [facility] Troponin I.cardiac High sensitivity method [Mass/Vol] 631 ng/L High NINF - 53 ng/L [facility] Comment on above: Suggestive of myocar dial injury [facility] hs-Troponin I 631 ng/L High <53 [facility] Comment on above: Order Comment: Acute Coronary Syndrome (ACS): Initial Evaluation and Management:[email or web address]/Documents/Danis delines/Acute%20Coronary%20Syndrome.pdf#search=troponin Result Comment: Sugg estive of myocardial injury Performed By: #### I CA #### [facility] (DEFAULT) [address] [place] [address] 58578 hs-Troponin I 573 ng/L High <53 [facility] Comment on above: Order Comment: Acute Coronary Syndrome (ACS): Initial Evaluation and Management:[email or web address]://[facility] [email or web address].[facility]/sites/ebm/Documents/Danis delines/Acute%20Coronary%20Syndrome.pdf#search=troponin Result Comment: Sugg estive of myocardial injury Performed By: #### X M #### [facility] (DEFAULT) [address] [place] [address] 81865 HIGH SENSITIVITY TROPONIN I - SINGLE ORDEROrdered By: Luba Garcia on 04-02-2025 Interpretation and review of laboratory results Abnormal [facility] Troponin I.cardiac High sensitivity method [Mass/Vol] 573 ng/L High NINF - 53 ng/L [facility] Comment on above: Suggestive of myocar dial injury [facility] IONIZED CALCIUM, WHOLE BLOOD Ordered By: Simi Beck on 04-02-2025 Calcium.ionized (Bld) [Moles/Vol] 4.52 mg/dL Low 4.60 - 5.30 mg/dL [facility] Interpretation and review of laboratory results Abnormal [facility] IONIZED CALCIUM, WHOLE BLOOD on 04-02-2025 ICA 4.52 mg/dL Low 4.60-5.30 [facility] Comment on above: Performed By: #### S URGP #### [facility] (DEFAULT) [address] [place] [address] 90326 MAGNESIUMon 04-02-2025 Magnesium [Mass/Vol] 2.1 mg/dL 1.6 - 2 .6 mg/dL [facility] Magnesium [Mass/Vol] 2.1 mg/dL Normal 1.6-2.6 [facility] Comment on above: Performed By: #### X MPO #### [facility] (DEFAULT) [address] [place] [address] 87814 No Panel Informationon 04-02 Interpretation and review of laboratory results Normal [facility] Radiology Study observation (narrative) [facility] PHOSPHATE, INORGANICon 04-02 Phosphate [Mass/Vol] 3.7 mg/dL 2.2 - 4 .6 mg/dL [facility] Phosphorous 3.7 mg/dL Normal 2.2-4.6 [facility] Comment on above: Performed By: #### X MPO #### [facility] (DEFAULT) [address] [place] [address] 66252 PLATELET COUNTon 04-02-2025 Interpretation and review of laboratory results Abnormal [facility] Platelet mean volume (Bld) [Entitic vol] 8.2 fL Low 8.7 - 12.3 fL [facility] Platelets (Bld) [#/Vol] 291 10*3/uL 146 - 337 K/uL [facility] Platelet mean volume (Bld) [Entitic vol] 8.2 fL Low 8.7-12.3 [facility] Comment on above: Performed By: #### X M #### [facility] (DEFAULT) [address] [place] [address] 53679 Platelets (Bld) [#/Vol] 291 10*3/uL Normal 146-337 [facility] Comment on above: Performed By: #### X M #### [facility] (DEFAULT) [address] [place] [address] 22954 PT,INR,PTTon 04-02-2025 aPTT Coag (PPP) [Time] 35.9 s High [facility] INR Coag (Bld) [Relative time] 1.1 {INR} 0.9 - 1.1 [facility] Interpretation and review of laboratory results Abnormal [facility] PT Coag (PPP) [Time] 14.4 s High [facility] aPTT Coag (Bld) [Time] 35.9 s High 24.0-34.3 [facility] Comment on above: Performed By: #### X M #### [facility] (DEFAULT) [address] [place] [address] 96928 INR Coag (PPP) [Relative time] 1.1 {INR} Normal 0.9-1.1 [facility] Comment on above: Performed By: #### X M #### [facility] (DEFAULT) [address] [place] [address] 46352 PT Coag (PPP) [Time] 14.4 s High 11.9-14.2 [facility] Comment on above: Performed By: #### X M #### [facility] (DEFAULT) [address] [place] [address] 31709 Portable XR Chest Viewson IMPRESSION: No acute cardiopulmonary disease OLOGY EXAM: XR CHEST 1 VIE W PORTABLE, 04/02/2025 03:54 AM COMPARISON: XR CHEST 1 VIEW PORTABLE March 15, 2025 CLINICAL INDICATIONS: cabg readmission with chest pain RELEVANT CLINICAL HISTORY: FINDINGS: (Adequate technique) Implanted Devices: None Thorax: No acute findings in the chest. RADIOLOGY Carolina Goldstein MB [facility] - 04/02/2025 EXAM: XR CHEST 1 VIEW PORTABLE, 04/02/2025 03:54 AM COMPARISON: XR CHEST 1 VIEW PORTABLE March 15, 2025 CLINICAL INDICATIONS: cabg readmission with chest pain RELEVANT CLINICAL HISTORY: FINDINGS: (Adequate technique) Implanted Devices: None Thorax: No acute findings in the chest. IMPRESSION IMPRESSION: No acute cardiopulmonary disease [facility] Portable XR Chest ViewsOrder ed By: Carolina Goldstein on 04-02-2025 [facility] Work Phone: TYPE AND SCREENon 04-02-2025 ABO/RH(D) TYPE Positive [facility] Specimen Expiration 04/05/2025 23:59 [facility] ABO/RH(D) TYPE Positive Normal [facility] Comment on above: Performed By: #### X M #### [facility] (DEFAULT) [address] [place] [address] 22720 Specimen Expiration 04/05/2025 23:59 Normal [facility] Comment on above: Performed By: #### X M #### [facility] (DEFAULT) [address] [address] US Heart limitedon Radiology Study observation (narrative) [facility] XR CHEST 1 VIEW PORTABLEon 0 04-02-2025 XR CHEST 1 VIEW PORTABLE EXAM: XR CHEST 1 VIEW PORTABLE, 04/02/2025 03:54 AM COMPARISON: XR CHEST 1 VIEW PORTABLE March 15, 2025 CLINICAL INDICATIONS: cabg readmission with chest pain RELEVANT CLINICAL HISTORY: FINDINGS: (Adequate technique) Implanted Devices: None Thorax: No acute findings in the chest. IMPRESSION: No acute cardiopulmonary disease [facility] 12 Lead EKGon 04-01-2025 12 Lead EKG [facility] Cardiovascular Services [address] [place] [address] 12 Lead EKG 04/01/25 2332 MR#: [id number] Acct: [id number] Name: MEIR LANDRUM Rep #: [id number] : 1955 69 From: Jg Nix MD Attending Dr: Status: DEP ER Ordering Dr: Vince Harding MD Date: 04/01/25 Location: ED Sex: M C Admitted: Test Reason : REPEAT CP Blood Pressure : */* mmHG Vent. Rate : 78 BPM Atrial Rate : 78 BPM P-R Int : 168 ms QRS Dur : 94 ms QT Int : 416 ms P-R-T Axes : 18 -30 74 degrees QTcB Int : 474 ms Normal sinus rhythm Left axis deviation Abnormal ECG Confirmed by JG NIX MD ([id number]), development editor BLAINE HOWARD ([id number]) on 04/04/2025 8:33:44 AM Referred By: MEAGHAN Confirmed By: JG NIX MD 04/04/25832 Date Jg Nix MD CC: Dr. Vince Harding MD; Dr. Pratibha Ronquillo DO Signed [facility] 12 Lead EKG [facility] Cardiovascular Services [address] [place] [address] 12 Lead EKG 04/01/25 1711 MR#: [id number] Acct: [id number] Name: MEIR LANDRUM Rep #: [id number] : 1955 69 From: Jg Nix MD Attending Dr: Status: DEP ER Ordering Dr: Vince Harding MD Date: 04/01/25 Location: ED Sex: M C Admitted: Test Reason : CP Blood Pressure : */* mmHG Vent. Rate : 98 BPM Atrial Rate : 98 BPM P-R Int : 152 ms QRS Dur : 94 ms QT Int : 374 ms P-R-T Axes : 62 -26 61 degrees QTcB Int : 477 ms Normal sinus rhythm Normal ECG Confirmed by JG NIX MD ([id number]), development editor BLAINE HOWARD ([id number]) on 04/04/2025 8:33:32 AM Referred By: HAWK/MEAGHAN Confirmed By: JG NIX MD 04/04/25832 Date Jg Nix MD CC: Dr. Vince Harding MD; Dr. Pratibha Ronquillo, Signed [facility] Absolute lymphocyte countOrd ered By: Vince Harding on 04-01-2025 Lymphocytes Auto (Unsp spec) [#/Vol] 2.25 10*3/uL 0.83-4.51 [facility] Absolute neutrophil countOrd ered By: Vince Harding on 04-01-2025 Neutrophils (Bld) [#/Vol] 6.3 10*3/uL 2.0-7.7 [facility] Anion gap in Serum or Plasma Ordered By: Vince Harding on 04-01-2025 Anion gap [Moles/Vol] 16 mmol/L High 5-15 [facility] Automated lymphocyte count a s percentage of total leukocytesOrdered By: Vince Harding on 04-01-2025 Lymphocytes/100 WBC Auto (Unsp spec) 20.7 % [facility] BUN/creatinine ratioOrdered By: Vince Harding on 04-01-2025 Urea nitrogen/Creatinine [Mass ratio] 13.2 mg/mg 06-27 [facility] Basic Metabolic Profile (BMP )on 04-01-2025 BUN/CRE 13.2 RATIO Normal 06-27 [facility] Comment on above: Performed By: #### L 100.0100, L501.4021, L500.2500 #### [facility] Laboratory [address] [place], [address] Calcium [Mass/Vol] 9.6 mg/dL Normal 7.6-11.0 [facility] Comment on above: Performed By: #### L 100.0100, L501.4021, L500.2500 #### [facility] [address] [place], [address] Chloride [Moles/Vol] 103 mmol/L Normal 98-108 [facility] Comment on above: Performed By: #### L 100.0100, L501.4021, L500.2500 #### [facility] [address] [place], [address] CO2 [Moles/Vol] 22.4 mmol/L Normal 21.0-32.0 [facility] Comment on above: Performed By: #### L 100.0100, L501.4021, L500.2500 #### [facility] [address] [place], [address] Creatinine [Mass/Vol] 1.19 mg/dL Normal 0.70-1.20 [facility] Comment on above: Performed By: #### L 100.0100, L501.4021, L500.2500 #### [facility] [address] [place], [address] ECRCL 71.42 ml/min Normal 50-250 [facility] Comment on above: Performed By: #### L 100.0100, L501.4021, L500.2500 #### [facility] [address] [place], [address] GAP 16 High 5-15 [facility] Comment on above: Performed By: #### L 100.0100, L501.4021, L500.2500 #### [facility] [address] [place], [address] GFR/1.73 sq M.predicted among non-blacks MDRD (S/P/Bld) [Vol rate/Area] 67 mL/min/{1.73_m2} Normal >60 [facility] Comment on above: Result Comment: mL/m in/1.73m2 CKD-EPI Creatinine Equation (2020) Performed By: #### L 100.0100, L501.4021, L500.2500 #### [facility] [address] [place], [address] Glucose [Mass/Vol] 103 mg/dL High 70-99 [facility] Comment on above: Performed By: #### L 100.0100, L501.4021, L500.2500 #### [facility] [address] [place], [address] Potassium [Moles/Vol] 4.1 mmol/L Normal 3.3-5.1 [facility] Comment on above: Performed By: #### L 100.0100, L501.4021, L500.2500 #### [facility] [address] [place], [address] Sodium [Moles/Vol] 141 mmol/L Normal 133-145 [facility] Comment on above: Performed By: #### L 100.0100, L501.4021, L500.2500 #### [facility] [address] [place], [address] Urea nitrogen [Mass/Vol] 16 mg/dL Normal 4-19 [facility] Comment on above: Performed By: #### L 100.0100, L501.4021, L500.2500 #### [facility] [address] [place], [address] Basophil percentageOrdered B y: Vince Harding on 04-01-2025 Basophils/100 WBC (Bld) 1.5 % High 0-1 [facility] CBC W/Diff, Automatedon 03-09 Absolute Lymph 2.25 X10 3/uL Normal 0.83-4.51 [facility] Comment on above: Performed By: #### L 100.0100, L501.4021, L500.2500 #### [facility] [address] [place], [address] Absolute Neut 6.3 X10 3/uL Normal 2.0-7.7 [facility] Comment on above: Performed By: #### L 100.0100, L501.4021, L500.2500 #### [facility] [address] [place], [address] Basophils/100 WBC (Bld) 1.5 % High 0-1 [facility] Comment on above: Performed By: #### L 100.0100, L501.4021, L500.2500 #### [facility] [address] [place], [address] Eosinophils/100 WBC (Bld) 7.6 % High 0-5 [facility] Comment on above: Performed By: #### L 100.0100, L501.4021, L500.2500 #### [facility] [address] [place], [address] Erythrocyte distribution width (RBC) [Ratio] 13.1 % Normal 11.6-14.6 [facility] Comment on above: Performed By: #### L 100.0100, L501.4021, L500.2500 #### [facility] [address] [place], [address] Hematocrit (Bld) [Volume fraction] 44.1 % Normal 40-54 [facility] Comment on above: Performed By: #### L 100.0100, L501.4021, L500.2500 #### [facility] [address] [place], [address] Hemoglobin (Bld) [Mass/Vol] 14.9 g/dL Normal 13.0-16.5 [facility] Comment on above: Performed By: #### L 100.0100, L501.4021, L500.2500 #### [facility] [address] [place], [address] IG% 0.600 Normal 0.0-0.9 [facility] Comment on above: Result Comment: IG% - Immature Granulocytes (promyelocytes, myelocytes and metamyelocytes) > 1% indicates that a LEFT SHIFT is Present. Performed By: #### L 100.0100, L501.4021, L500.2500 #### [facility] [address] [place], [address] Lymphocytes/100 WBC (Bld) 20.7 % Normal 19-41 [facility] Comment on above: Performed By: #### L 100.0100, L501.4021, L500.2500 #### [facility] [address] [place], [address] MCH (RBC) [Entitic mass] 31.0 pg Normal 27.0-32.0 [facility] Comment on above: Performed By: #### L 100.0100, L501.4021, L500.2500 #### [facility] [address] [place], [address] MCHC (RBC) [Mass/Vol] 33.8 g/dL Normal 32-36 [facility] Comment on above: Performed By: #### L 100.0100, L501.4021, L500.2500 #### [facility] [address] [place], [address] MCV (RBC) [Entitic vol] 91.9 fL Normal 80-94 [facility] Comment on above: Performed By: #### L 100.0100, L501.4021, L500.2500 #### [facility] [address] [place], [address] Monocytes/100 WBC (Bld) 11.6 % High 0-10 [facility] Comment on above: Performed By: #### L 100.0100, L501.4021, L500.2500 #### [facility] [address] [place], [address] Neutrophils/100 WBC (Bld) 58.0 % Normal 47-70 [facility] Comment on above: Performed By: #### L 100.0100, L501.4021, L500.2500 #### [facility] [address] [place], [address] Nucleated RBC (Bld) [#/Vol] 0 10*3/uL Normal 0-5 [facility] Comment on above: Performed By: #### L 100.0100, L501.4021, L500.2500 #### [facility] [address] [place], [address] Platelet mean volume (Bld) [Entitic vol] 8.2 fL Normal 6.2-12.0 [facility] Comment on above: Performed By: #### L 100.0100, L501.4021, L500.2500 #### [facility] [address] [place], [address] Platelets (Bld) [#/Vol] 355 10*3/uL Normal 150-450 [facility] Comment on above: Performed By: #### L 100.0100, L501.4021, L500.2500 #### [facility] [address] [place], [address] RBC (Bld) [#/Vol] 4.80 10*6/uL Normal 4.6-6.2 [facility] Comment on above: Performed By: #### L 100.0100, L501.4021, L500.2500 #### [facility] [address] [place], [address] RDW SD 44.5 fl High 35.1-43.9 [facility] Comment on above: Performed By: #### L 100.0100, L501.4021, L500.2500 #### [facility] [address] [place], [address] WBC (Bld) [#/Vol] 10.9 10*3/uL Normal 4.4-11.0 [facility] Comment on above: Performed By: #### L 100.0100, L501.4021, L500.2500 #### [facility] [address] [place], [address] Carbon dioxide, total [Moles /volume] in Central venous bloodOrdered By: Vince Harding on 04-01-2025 CO2 [Moles/Vol] 22.4 mmol/L 21.0-32.0 [facility] Chest PA and Lateralon 04-01 Chest PA and Lateral [facility] Imaging Services [address] [place] [address] Chest PA and Lateral MR#: [id number] Acct: [id number] Name: MEIR LANDRUM Rep #: [id number] : 1955 M 69 From: Amarjit Bedolla MD PCP: Dr. Pratibha Ronquillo DO Status: PRE ER Study: Chest PA and Lateral Date of Exam: 04/01/25 Exam# [id number] Ordering Dr: Vince Harding MD PROCEDURE: CHEST PA AND LATERAL 04/01/2025 REASON FOR EXAM: CHEST PAIN TECHNIQUE: CHEST PA AND LATERAL COMPARISON: 12/30/2023. FINDINGS: Prior sternotomy. Left shoulder arthroplasty. The heart is enlarged. The lungs are clear. No acute osseous abnormalities. RAD/Chest PA and Lateral IMPRESSION: NO ACUTE FINDINGS. Reading Location: [facility] CC: Dr. Vince Harding MD; Dr. Pratibha Ronquillo DO Instructional Consultant: Signed Normal [facility] Chloride assayOrdered By: Sarah Harding on 04-01-2025 Chloride [Moles/Vol] 103 mmol/L 98-108 [facility] Emergency Department Summary on 04-01-2025 Emergency Department Summary [facility] Medical Records Department [address] [place] [address] Emergency Department Summary 04/01/25 MR#: [id number] Acct: [id number] Name: MEIR LANDRUM Rep #: [id number] : 1955 69 From: Vince Harding MD PCP: Dr. Pratibha Ronquillo DO Status:REG ER Location: ED HPI History of Present Illness Chief Complaint: Chest Pain Informant: patient Narrative Narrative: 69-year-old male was at rest when he started having nonpleuritic substernal chest discomfort about 2.5 hours ago radiating into his right axilla and upper arm. He had a CABG 1-2 months ago at [facility], so he took a couple of nitroglycerin which improved his symptoms, he now has no chest discomfort and just has the discomfort in his right axilla and upper arm. No other associated symptoms. He states this occurred about an hour after he broke down and "bummed a cigarette off of someone and smoked." He now regrets smoking. He denies any other drug or illicit substance use. He has been compliant with his medications which include aspirin and no other antiplatelet or anticoagulants. States otherwise has been doing well until this occurred, breathing well, his chest has not been bothering him with regards to the CABG scar/incision. [facility] Medical History Wears glasses Cancer History of steroid therapy Kidney stones High cholesterol Excessive bleeding Easy bruising Back pain History of diverticulitis Gastric reflux Former smoker Sleep apnea History of stress test Cardiology follow-up encounter History of heart attack Presence of stent in coronary artery ( 05/23/09) Atherosclerotic heart disease of [place] coronary artery without angina pectoris Essential hypertension Old myocardial infarction Diverticulitis Arthritis Seasonal allergies Hemorrhoids Hx of squamous cell carcinoma of skin GO (obstructive sleep apnea) Hyperlipidemia CAD (coronary artery disease) Home Medications ???Medication ???Instructions ???Recorded ???Last Taken ???Type nitroglycerin 0.4 mg sublingual 0.4 mg sublingual Q5M PRN Chest Unknown History tablet Pain pantoprazole 20 mg tablet,delayed 20 mg PO DAILY 02/09/21 Unknown H istory release aspirin 81 mg tablet,delayed 81 mg PO DAILY 08/13/21 08/22/21 H istory release (Adult Aspirin Regimen) acetaminophen 500 mg tablet 1,000 mg PO BID 02/18/22 Unknown H istory naproxen sodium 220 mg tablet 440 mg PO BID 02/18/22 Unknown His tory ezetimibe 10 mg tablet 5 mg (1/2 x 10 mg) PO .QOD #45 tab s 09/11/22 Unknown Rx atorvastatin 10 mg tablet 5 mg (1/2 x 10 mg) PO .COMPLEX #45 04/22/23 Unknown Rx tabs Allergy/AdvReac Type Severity Reaction Status Date / Time Penicillins (PCN) Allergy Itching Verified 04/01/25 17:04 ciprofloxacin (From Cipro) AdvReac Intermediate Unknown Verified 04/01/25 17:04 rosuvastatin (From Crestor) AdvReac Other Verified 04/01/25 17:04 simvastatin (From Zocor) AdvReac Other Verified 04/01/25 17:04 Family History Father Hypertension CAD (coronary artery disease) Mother CAD (coronary artery disease) Brother Cancer Skin cancer- Outside of anus Surgical History (Updated 04/01/25 @ 23:[address] Vince Harding MD) Hx of CABG History of coronary artery stent placement Hx of total hip arthroplasty History of colonoscopy ( 2018) Presence of coronary angioplasty implant and graft ( 05/23/09) Hx of shoulder surgery History of left heart catheterization Hx of knee surgery Social History household members: spouse housing: house Smoking Status: Former smoker second hand exposure: Yes alcohol intake: current alcohol intake frequency: holidays/special occasions only substance use type: does not use caffeine: Yes Type: carbonated beverages Number of servings: 1, coffee Number of servings: 2 and tea Number of servings: 1 what type of physical activity do you participate in: none frequency: does not exercise seatbelt use: always ROS ROS ED Constitutional Constitutional ED: Denies chills, fever(s) or sweats Eyes Eyes: Denies change in vision or diplopia ENT ENT ED: Denies rhinorrhea or sore throat Cardiovascular Cardiovascular: Reports as per HPI, chest pain and radiating jaw, neck or arm pain; Denies leg edema, lightheadedness, palpitations or syncope Respiratory/Chest Respiratory/Chest: Denies cough or dyspnea Gastrointestinal Gastrointestinal: Denies abdominal pain, diarrhea, nausea or vomiting Genitourinary Genitourinary ED: Denies dysuria or hematuria Musculoskeletal Musculoskeletal: Denies back pain or neck pain Integumentary Denies abscess or rash Neurologic Neurologic: Denies headache(s (more content not included)... Normal [facility] Eosinophil percentageOrdered By: Vince Harding on 04-01-2025 Eosinophils/100 WBC (Bld) 7.6 % High 0-5 [facility] Erythrocyte distribution wid th ratioOrdered By: Vince Harding on 04-01-2025 Erythrocyte distribution width (RBC) [Ratio] 13.1 % 11.6-14.6 [facility] Erythrocyte distribution wid th standard deviationOrdered By: Vince Harding on 04-01-2025 Erythrocyte distribution width (RBC) [Ratio] 44.5 fl High 35.1-43.9 [facility] Glomerular filtration rate ( GFR) estimation/1.73 sq m using serum, plasma, or whole bOrdered By: Vince Harding on 04-01-2025 GFR/1.73 sq M.predicted among non-blacks MDRD (S/P/Bld) [Vol rate/Area] 67 mL/min/{1.73_m2} >60 [facility] Comment on above: mL/min/1.73m2 CKD-EP I Creatinine Equation (2020) Hematocrit Auto (Bld) [Volum e fraction]Ordered By: Vince Harding on 04-01-2025 Hematocrit (Bld) [Volume fraction] 44.1 % 40-54 [facility] Hemoglobin measurementOrdere d By: Vince Harding on 04-01-2025 Hemoglobin (Bld) [Mass/Vol] 14.9 g/dL 13.0-16.5 [facility] Immature granulocytes/100 WB C Auto (Bld)Ordered By: Vince Harding on 04-01-2025 Immature granulocytes/100 WBC (Bld) 0.600 % 0.0-0.9 [facility] Comment on above: IG% - Immature Granu locytes (promyelocytes, myelocytes and metamyelocytes) > 1% indicates that a LEFT SHIFT is Present. L501.4021on 04-01-2025 Trop T High Sen 36 ng/L High <=22 [facility] Comment on above: Performed By: #### L 100.0100, L501.4021, L500.2500 #### [facility] Laboratory [address] [place], [address] MCV (mean corpuscular volume ) determinationOrdered By: Vince Harding on 04-01-2025 MCV (RBC) [Entitic vol] 91.9 fL 80-94 [facility] Mean corpuscular hemoglobin (MCH) determinationOrdered By: Vincepio Harding on 04-01-2025 MCH (RBC) [Entitic mass] 31.0 pg 27.0-32.0 [facility] Mean corpuscular hemoglobin concentration (MCHC) determinationOrdered By: Vince Harding on 04-01-2025 MCHC (RBC) [Mass/Vol] 33.8 g/dL 32-36 [facility] Mean platelet volume determi nationOrdered By: Vince Harding on 04-01-2025 Platelet mean volume (Bld) [Entitic vol] 8.2 fL 6.2-12.0 [facility] Monocyte percentageOrdered B y: Vince Harding on 04-01-2025 Monocytes/100 WBC (Bld) 11.6 % High 0-10 [facility] Neutrophil percentageOrdered By: Vince Harding on 04-01-2025 Neutrophils/100 WBC (Bld) 58.0 % 47-70 [facility] Nucleated red blood cell per centageOrdered By: Vince Harding on 04-01-2025 Nucleated RBC/100 WBC (Bld) [Ratio] 0 % 0-5 [facility] Platelet countOrdered By: Sarah Harding on 04-01-2025 Platelets (Bld) [#/Vol] 355 10*3/uL 150-450 [facility] Potassium measurement (mass/ volume)Ordered By: Vince Harding on 04-01-2025 Potassium (Unsp spec) [Mass/Vol] 4.1 mmol/L 3.3-5.1 [facility] RBC Auto (Bld) [#/Vol]Ordere d By: Vince Harding on 04-01-2025 RBC (Bld) [#/Vol] 4.80 10*6/uL 4.6-6.2 [facility] Serum creatinine measurement (mass/volume)Ordered By: Vince Harding on 04-01-2025 Creatinine [Mass/Vol] 1.19 mg/dL 0.70-1.20 [facility] Serum glucose measurement (m ass/volume)Ordered By: Vince Harding on 04-01-2025 Glucose [Mass/Vol] 103 mg/dL High 70-99 [facility] Serum or plasma calcium jimy urement (mass/volume)Ordered By: Vince Harding on 04-01-2025 Calcium [Mass/Vol] 9.6 mg/dL 7.6-11.0 [facility] Serum or plasma urea nitroge n measurement (mass/volume)Ordered By: Vince Harding on 04-01-2025 Urea nitrogen [Mass/Vol] 16 mg/dL 4-19 [facility] Sodium levelOrdered By: Juan Ramon Harding on 04-01-2025 Sodium [Moles/Vol] 141 mmol/L 133-145 [facility] Troponin T HS 2 HRon 025 Trop T High Sen 41 ng/L High <=22 [facility] Comment on above: Performed By: #### L 100.0100, L500.2500 #### [facility] Laboratory [address] [place], [place], [id number] Troponin T HS 4 HRon 025 Trop T High Sen 53 ng/L High <=22 [facility] Comment on above: Result Comment: Crit ical Result(s) Called at: 2148 by:??JAMEL VANEGAS TO MICHELLE NICHOLSON. Results read back by same. Performed By: #### L 499.0043 #### [facility] [address] [place], [place], [address] Troponin T.cardiac [Mass/vol ume] in Serum or Plasma by High sensitivity methodOrdered By: Vince Harding on 04-01-2025 Troponin T.cardiac High sensitivity method [Mass/Vol] 53 ng/L High <22 [facility] Comment on above: Critical Result(s) C alled at: 2148 by: JAMEL VANEGAS TO MICHELLE NICHOLSON. Results read back by same. Troponin T.cardiac High sensitivity method [Mass/Vol] 41 ng/L High <22 [facility] Troponin T.cardiac High sensitivity method [Mass/Vol] 36 ng/L High <22 [facility] White blood cell (WBC) count Ordered By: Vince Harding on 04-01-2025 WBC (Bld) [#/Vol] 10.9 10*3/uL 4.4-11.0 [facility] CR - History AND Physicalon 03-30-2025 CR - History & Physical [facility] Cardiac Rehab [address] [place] [address] CR - History Physical MR#: [id number] Acct: [id number] Name: MEIR LANDRUM Rep #: [id number] : 1955 69 From: Yusuf Carranza BS, RVT PCP: Dr. Pratibha Ronquillo, DO DOS: 03/30/25 CR - History Physical General Arrival date:: 03/30/25 Arrival time:: 14:11 Date of Referral:: 03/23/25 Date of CR Evaluation:: 03/30/25 Referring Physician: Dr. Garcia Primary Diagnosis: S/P CABG X 3 History of Present Cardiac Event Onset Date Coronary Artery Bypass Graft:: Yes (onset 03/10/2025) Vessel: IM-LAD, SVG-OM, SVG-PDA Medications Ambulatory Orders ???Medication ???Instructions ???Recorded nitroglycerin 0.4 mg sublingual 0.4 mg sublingual Q5M PRN Chest tablet Pain pantoprazole 20 mg tablet,delayed 20 mg PO DAILY 02/09/21 release aspirin 81 mg tablet,delayed 81 mg PO DAILY 08/13/21 release (Adult Aspirin Regimen) acetaminophen 500 mg tablet 1,000 mg PO BID 02/18/22 naproxen sodium 220 mg tablet 440 mg PO BID 02/18/22 ezetimibe 10 mg tablet 5 mg (1/2 x 10 mg) PO .QOD #45 tab s 09/11/22 atorvastatin 10 mg tablet 5 mg (1/2 x 10 mg) PO .COMPLEX #45 04/22/23 tabs cephalexin 500 mg capsule 500 mg PO Q6 #40 CAPSULES 03/18/25 Allergies Allergies Penicillins (PCN) Allergy (Verified 03/18/25 13:43) Itching ciprofloxacin (From Cipro) Adverse Reaction (Intermediate, Verified 03/18/25 13:43) Unknown muscle aches rosuvastatin (From Crestor) Adverse Reaction (Verified 03/18/25 13:43) Other simvastatin (From Zocor) Adverse Reaction (Verified 03/18/25 13:43) Other MUSCLE ACHES/JOINT PAIN Sleep Disorder Evaluation Hx of Sleep Apnea: Yes Do you snore loudly (louder than talking or can be heard through closed doors)?: Yes Do you often feel tired/ fatigued/ sleepy during daytime?: Yes Has anyone observed you stop breathing during sleep?: No History of Hypertension (for STOP score): Yes STOP Results: Positive Advanced Directives Advanced Directives Do you have a Healthcare Power of Synthetic Gem [employer] Operator?: No Living Will: No Advance Directives Information Provided: No Advance Directives on File: No DNR Order?:: No Past Medical History Covid-19 Screening Physicial Symptoms Other Clinical Concerns Exposure Risk Pertinent Comorbidities 65 years or older:: Yes Has a serious heart condition:: Yes Past Medical Illness Medical History Wears glasses Cancer History of steroid therapy Kidney stones High cholesterol Excessive bleeding Easy bruising Back pain History of diverticulitis Gastric reflux Former smoker Sleep apnea History of stress test Cardiology follow-up encounter History of heart attack Presence of stent in coronary artery ( 05/23/09) Atherosclerotic heart disease of [place] coronary artery without angina pectoris Essential hypertension Old myocardial infarction Diverticulitis Arthritis Seasonal allergies Hemorrhoids Hx of squamous cell carcinoma of skin GO (obstructive sleep apnea) Hyperlipidemia CAD (coronary artery disease) Past Surgical History Surgical History History of coronary artery stent placement Hx of total hip arthroplasty History of colonoscopy ( 2018) Presence of coronary angioplasty implant and graft ( 05/23/09) Hx of shoulder surgery History of left heart catheterization Hx of knee surgery Family History Summary Family History Father Hypertension CAD (coronary artery disease) Mother CAD (coronary artery disease) Brother Cancer Skin cancer- Outside of anus Social History Smoking History Smoking Status: Former smoker Years Smokin (Recently stopped smoking) Packs Smoked per Day: 1 Alcohol Use Alcohol Usage: Yes (rare) Substance Abuse Hx Substance Use: No Occupation Occupation (List type of work in comments):: Retired Social Environment Status Marital Status: Current Living Arrangements Living Environment:: Spouse Safety Do you feel safe in your surroundings?: Yes Assistance Do you need any assistance at home?: no Review of Systems Review of Systems Hints Review of Present Symptoms: Reports Shortness of Breath with Exertion, Operative Discomfort, Dizziness/Lightheadedne ss, Fatigue and Appetite - Normal; Denies Shortness of Breath at Rest, PVD, Angina, Wound Healing, Heart Arrhythmia/Irregulariti es, Appetite - Special Diet, Sleep - Normal or Sexual Changes Pain Pain Location: back Pain Level: 310 Risk Factor Assessment Chief Complaint Chief Complaint: S/P CABG Vital Signs Pulse Ox: 96 Blood Pressure: 122/76 Pulse Pulse Rate: 80 Pulse Rhythm: Regular Hypertension Blood Pressure Sitting - Right Arm: 122/7 (more content not included)... Normal [facility] Cardiac rehabilitation evalu ation reportOrdered By: Yusuf Tsang on 03-30-2025 Study report [facility] Cardiac Rehab [address] [place] [address] CR - History & Physical MR#: [id number] Acct: [id number] Name: MEIR LANDRUM Rep #:[id number] : 1955 69 From: Yusuf Carranza BS, RVT PCP: Dr. Pratibha Ronquillo, DO DOS: 03/30 CR - History & Physical General Arrival date:: 03/30/25 Arrival time:: 14:11 Date of Referral:: 03/23/25 Date of CR Evaluation:: 03/30/25 Referring Physician: Dr. Garcia Primary Diagnosis: S/P CABG X 3 History of Present Cardiac Event Onset Date Coronary Artery Bypass Graft:: Yes (onset 03/10/2025) Vessel: IM-LAD, SVG-OM, SVG-PDA Medications Ambulatory Orders ?Medication ?Instructions ?Recorded nitroglycerin 0.4 mg sublingual 0.4 mg sublingual Q5M PRN Chest 03/27/17 tablet Pain pantoprazole 20 mg tablet,delayed 20 mg PO DAILY 02/09 release aspirin 81 mg tablet,delayed 81 mg PO DAILY 08/13/21 release (Adult Aspirin Regimen) acetaminophen 500 mg tablet 1,000 mg PO BID 02/18/22 naproxen sodium 220 mg tablet 440 mg PO BID 02/18/22 ezetimibe 10 mg tablet 5 mg (1/2 x 10 mg) PO .QOD # 45 tabs 09/11/22 atorvastatin 10 mg tablet 5 mg (1/2 x 10 mg) PO .COMPL EX #45 04/22/23 tabs cephalexin 500 mg capsule 500 mg PO Q6 #40 CAPSULES Allergies Allergies Penicillins (PCN) Allergy (Verified 03/18/25 13:43) Itching ciprofloxacin (From Cipro) Adverse Reaction (Intermediate, Verified 03/18/25 13:43) Unknown muscle aches rosuvastatin (From Crestor) Adverse Reaction (Verified 03/18/25 13:43) Other simvastatin (From Zocor) Adverse Reaction (Verified 03/18/25 13:43) Other MUSCLE ACHES/JOINT PAIN Sleep Disorder Evaluation Hx of Sleep Apnea: Yes Do you snore loudly (louder than talking or can be heard through closed doors)?:Yes Do you often feel tired/ fatigued/ sleepy during daytime?: Yes Has anyone observed you stop breathing during sleep?: No History of Hypertension (for STOP score): Yes STOP Results: Positive Advanced Directives Advanced Directives Do you have a Healthcare Power of Synthetic Gem [employer] Operator?: No Living Will: No Advance Directives Information Provided: No Advance Directives on File: No DNR Order?:: No Past Medical History Covid-19 Screening Physicial Symptoms Other Clinical Concerns Exposure Risk Pertinent Comorbidities 65 years or older:: Yes Has a serious heart condition:: Yes Past Medical Illness Medical History Wears glasses Cancer History of steroid therapy Kidney stones High cholesterol Excessive bleeding Easy bruising Back pain History of diverticulitis Gastric reflux Former smoker Sleep apnea History of stress test Cardiology follow-up encounter History of heart attack Presence of stent in coronary artery (~05/23/09) Atherosclerotic heart disease of [place] coronary artery without angina pectoris Essential hypertension Old myocardial infarction Diverticulitis Arthritis Seasonal allergies Hemorrhoids Hx of squamous cell carcinoma of skin GO (obstructive sleep apnea) Hyperlipidemia CAD (coronary artery disease) Past Surgical History Surgical History History of coronary artery stent placement Hx of total hip arthroplasty History of colonoscopy (~2018) Presence of coronary angioplasty implant and graft (~05/23/09) Hx of shoulder surgery History of left heart catheterization Hx of knee surgery Family History Summary Family History Father Hypertension CAD (coronary artery disease) Mother CAD (coronary artery disease) Brother Cancer Skin cancer- Outside of anus Social History Smoking History Smoking Status: Former smoker Years Smokin (Recently stopped smoking) Packs Smoked per Day: 1 Alcohol Use Alcohol Usage: Yes (rare) Substance Abuse Hx Substance Use: No Occupation Occupation (List type of work in comments):: Retired Social Environment Status Marital Status: Current Living Arrangements Living Environment:: Spouse Safety Do you feel safe in your surroundings?: Yes Assistance Do you need any assistance at home?: no Review of Systems Review of Systems Hints Review of Present Symptoms: Reports Shortness of Breath with Exertion, OperativeDiscomfort, Dizziness/Lightheadedne ss, Fatigue and Appetite - Normal; Denies Shortness of Breath at Rest, PVD, Angina, Wound Healing, Heart Arrhythmia/Irregulariti es, Appetite - Special Diet, Sleep - Normal or Sexual Changes Pain Pain Location: back Pain Level: 11/15 Risk Factor Assessment Chief Complaint Chief Complaint: S/P CABG Vital Signs Pulse Ox: 96 Blood Pressure: 122/76 Pulse Pulse Rate: 80 Pulse Rhythm: Regular Hypertension Blood Pressure Sitting - Right Arm: 122/76 Obesity Height: 5 ft 11 in Weight:: 228 lb Weight in Pounds: 228.0 lbs Body Mass Index (BMI): 31.8 Physical Inactivity Physical Inactivity: Reg Exercise 30 min/day Risk Stratification Risk Guidelines: Moderate Risk: Risk Factor for Diabetes, Risk Factor for Obesity, Risk Factor for Sedentary Lifestyle and Risk (more content not included)... [facility] No Panel InformationOrdered By: Yusuf Tsang on 03-30-2025 [facility] Cardiac Rehab [address] [place] [address] CR - Individual Treatment Plan MR#: [id number] Acct: [id number] Name: MEIR LANDRUM Rep #:[id number] : 1955 69 From: Yusuf Carranza BS, RVT PCP: Dr. Pratibha Ronquillo, DO DOS: 03/30 Diagnosis General Information Admitting Diagnosis: S/P CABG Personal Learning Style:: Audio/Visual Barriers to Learning: No Barriers Stage of change r/t lifestyle modifications:: Contemplation Gave educational material for:: Treating Heart Disease, How The Heart Works, What it means to have Heart Disease, How Coronary Artery Disease is Diagnosed, Heart Procedures, What Heart Medications Do, Risk Factors & Modifications, Living an Active Life, Nutrition, Emotions & Heart Disease, Stress Management & Relaxation and Sleep Disorders & Heart Disease Education/Goals Cardiac Rehabilitation Goals Personal Goals: Initial Assessment: Improve energy level, Participate in home exercise program, Get back to work, or to resume activities faster and Improve muscle strength and endurance Scale for measuring improvement of personal goals Diagnosis & Disease Process Outcomes/Goals: Pt IDs own risk factors & lifestyle modifications by Session 10,Verbalizes symptoms of angina & response by session 3., Pt independently managesand Other Additional Outcomes/Goals: Plan/Interventions: Assist Pt to ID & engage in lifestyle modification to reduceCVD risk, Instruct on individual risk factors, Review symptoms of angina & emergency actions, Review secondary diagnosis & identify educational needs. and Other see comment 30 day Reassessments:: Not Met 30 day Reassessments:: Not Met 30 day Reassessments:: Not Met 30 day Reassessments:: Not Met Final Reassessments:: Not Met Safety Referral to Physical Therapy: No Referral to [facility] Case Management: No Fall Risk Assessed:: Yes Assistive Devices:: None Exercise - Initial Assessment Visit Date of Eval: 03/30/25 (initial eval ) Mets: Pre-: >3 METS for 30 minutes by discharge, >5 METS for 30 minutes by discharge, >7 METS for 30 minutes by discharge and Unable to meet goal due to: (see comment below) Physician Prescribed Exercise Modalities: Treadmill, Rower, Schwinn Airdyne AD-7, SciFit Stepper, SciFit Pro-II Ergometer and SciFit Lateral Game Farm Helper Frequency: 3x/week for 12 weeks [36 sessions] Intensity: 60-80% of age predicted maximum heart rate reserve Duration: 30 - 45 minutes Current METSs:: 3 Target Heart Rate:: 92-115 Resting Blood Pressure: 122/76 EKG Type: NSR Outcomes & Goals Goals:: Verbalizes understanding of THR, RPE & goal METS by session 6, Documentsin home exercise log/reports 30 min aerobic 5 day/wk by DC, Demonstrates accurate pulse taking by DC and Other additional outcome/goals: see below Intervention & Plan Exercise Program Goals: Instruct on personal THR & RPE, Instruct on MET level & personal MET goal, Show patient to take own pulse /validate performance until accurate, Instruct on home exercise and Other additional plan/int Physical Activity Home Exercise Physical Activity - Home Exercise: Safe Exercise, Warm-up, Self-monitoring, Cool-Down, Home Exercise > 30 min Daily and Sitting Time <3 hours/daily Outcomes & Goals Outcomes/Goals: Demonstrates correct Warm-up/exercise Cool-Down (S3) if = 2.5 METs, Verbalizes symptoms of exercise intolerance by Session 3 (S3), Demonstratesafe equipment use (S3) & follows exercise prescrition (6) and Other: See below Intervention & Plan Plan/Intervention: Instruct warm-up & cool-down if exercising at > 2 METs, Instruct on symptoms of exercise intolerance & actions to take, Instruct & monitor on saf, Assess intial functional capacity & safety risk and Other See below Nutrition - Initial Assessment Program Goals Nutrition Program Goals Patient has diagnosis of Hyperlipidemia (ICD E78)?: Yes Visit Date of Eval: 03/30/25 (initial eval ) Cholesterol/Lipids (Other Core Measures) Determine presence & major risk factors that modify LDL goal: Cigarette smoking,Hypertension or hypertensive medication, Low HDL cholesterol <40 mg/dL*, Family history of premature CHD in Male < 55 years: female <65 yearsFa and Age men > 45years; women >/= 55 years Outcomes/Goals: Pt IDs own risk factors & lifestyle modifications by Session 10,Verbalizes symptoms of angina & response by session 3., Pt independently managesand Other Additional Outcomes/Goals: Intervention/Plan: Advocate for lipid panel cholesterol medication if applicable, Instruct on personal lipid levels & lipid goals/NCEP guidelines, Instruct on cholesterol and Other additional plan/int Diabetes (Other Core Measures) Diabetes Type: Not Applicable Weight Mgt (Other Care) Height: 5 ft 11 in Weight:: 228 lb BMI: 31.8 Diagnosis Overweight/Obesity BMI> 30% ICD-10 E66: Yes Diagnosis High BMI/Morbid Obesity BMI> 35% ICD-10 Z68: No Outcomes/Goals: Pt sets, maintains & shows weight loss goal & trend during rehaband Other additional outcomes/goals Intervention/Plan: Instruct on ideal BMI & set weight loss goal w/patient, Assist (more content not included)... [facility] Absolute lymphocyte countOrd ered By: Randal Flores on 03-18-2025 Lymphocytes Auto (Unsp spec) [#/Vol] 2.28 10*3/uL 0.83-4.51 [facility] Absolute neutrophil countOrd ered By: Randal Flores on 03-18-2025 Neutrophils (Bld) [#/Vol] 11.9 10*3/uL High 2.0-7.7 [facility] Activated partial thrombopla stin time (aPTT) in platelet poor plasma by coagulation aOrdered By: Randal Flores on 03-18-2025 aPTT Coag (PPP) [Time] 26.8 s 24.1-36.2 [facility] Anion gap in Serum or Plasma Ordered By: Randal Flores on 03-18-2025 Anion gap [Moles/Vol] 12 mmol/L 5-15 [facility] Automated lymphocyte count a s percentage of total leukocytesOrdered By: Randal Flores on 03-18-2025 Lymphocytes/100 WBC Auto (Unsp spec) 12.7 % Low 19-41 [facility] BUN/creatinine ratioOrdered By: Randal Flores on 03-18-2025 Urea nitrogen/Creatinine [Mass ratio] 12.5 mg/mg 10- [facility] Basic Metabolic Profile (BMP )on 03-18-2025 BUN/CRE 12.5 RATIO Normal - [facility] Comment on above: Performed By: #### L 100.0100, L500.2500 #### [facility] [address] [place], [address] Calcium [Mass/Vol] 9.2 mg/dL Normal 7.6-11.0 [facility] Comment on above: Performed By: #### L 100.0100, L500.2500 #### [facility] [address] [place], [address] Chloride [Moles/Vol] 101 mmol/L Normal 98-108 [facility] Comment on above: Performed By: #### L 100.0100, L500.2500 #### [facility] [address] [place], [address] CO2 [Moles/Vol] 22.9 mmol/L Normal 21.0-32.0 [facility] Comment on above: Performed By: #### L 100.0100, L500.2500 #### [facility] [address] [place], [address] Creatinine [Mass/Vol] 1.46 mg/dL High 0.70-1.20 [facility] Comment on above: Performed By: #### L 100.0100, L500.2500 #### [facility] [address] [place], [address] ECRCL 52.29 ml/min Normal 50-250 [facility] Comment on above: Performed By: #### L 100.0100, L500.2500 #### [facility] [address] [place], [address] GAP 12 Normal 5-15 [facility] Comment on above: Performed By: #### L 100.0100, L500.2500 #### [facility] [address] [place], [address] GFR/1.73 sq M.predicted among non-blacks MDRD (S/P/Bld) [Vol rate/Area] 52 mL/min/{1.73_m2} Low >60 [facility] Comment on above: Result Comment: mL/m in/1.73m2 CKD-EPI Creatinine Equation (2020) Performed By: #### L 100.0100, L500.2500 #### [facility] [address] [place], [address] Glucose [Mass/Vol] 100 mg/dL High 70-99 [facility] Comment on above: Performed By: #### L 100.0100, L500.2500 #### [facility] [address] [place], [address] Potassium [Moles/Vol] 4.8 mmol/L Normal 3.3-5.1 [facility] Comment on above: Performed By: #### L 100.0100, L500.2500 #### [facility] [address] [place], [address] Sodium [Moles/Vol] 136 mmol/L Normal 133-145 [facility] Comment on above: Performed By: #### L 100.0100, L500.2500 #### [facility] [address] [place], [address] Urea nitrogen [Mass/Vol] 18 mg/dL Normal 4-19 [facility] Comment on above: Performed By: #### L 100.0100, L500.2500 #### [facility] [address] [place], [address] Basophil percentageOrdered B y: Randal Flores on 03-18-2025 Basophils/100 WBC (Bld) 0.6 % 0-1 [facility] Blood manual differential co mment interpretation (narrative result)Ordered By: Randal Flores on 03-18-2025 Manual differential comment Arsenio (Bld) [Interp] SCANNED [facility] CBC W/Diff, Automatedon 03-08 PLT EST ADEQUATE Normal ADEQ [facility] Comment on above: Performed By: #### L 100.0100, L500.2500 #### [facility] [address] [place], [address] SMEAR COMMENT SCANNED Normal [facility] Comment on above: Performed By: #### L 100.0100, L500.2500 #### [facility] [address] [place], [address] Carbon dioxide, total [Moles /volume] in Central venous bloodOrdered By: Randal Flores on 03-18-2025 CO2 [Moles/Vol] 22.9 mmol/L 21.0-32.0 [facility] Chloride assayOrdered By: Jose Flores on 03-18-2025 Chloride [Moles/Vol] 101 mmol/L 98-108 [facility] Emergency Department Summary on 03-18-2025 Emergency Department Summary [facility] Medical Records Department [address] [place] [address] Emergency Department Summary 03/18/25 MR#: [id number] Acct: [id number] Name: MEIR LANDRUM Rep #: [id number] : 1955 69 From: Randal Flores DO PCP: Dr. Pratibha Ronquillo DO Status:DEP ER Location: ED HPI History of Present Illness Chief Complaint: Lower Extremity Injury Informant: patient Onset/Context/Timing Onset: Today Context: Sudden Onset Timing: Intermittent Quality: Purple discoloration Location: Plantar aspects of the feet bilaterally Worsened by: Walking Relieved by: Rest Narrative Narrative: Patient presents with discoloration to his feet that was noticed today. Patient states he went for a walk today and after that he noted some discoloration to the plantar aspects of his feet. Patient states that they appeared to be purple. Patient states that this resolved. Patient states he contacted the ship's cook in [place] where he had his recent coronary artery bypass graft and was told to come to the emergency department for evaluation. Patient denies any change in temperature of his feet. Patient denies any pallor. [facility] Medical History Wears glasses Cancer History of steroid therapy Kidney stones High cholesterol Excessive bleeding Easy bruising Back pain History of diverticulitis Gastric reflux Former smoker Sleep apnea History of stress test Cardiology follow-up encounter History of heart attack Presence of stent in coronary artery ( 05/23/09) Atherosclerotic heart disease of [place] coronary artery without angina pectoris Essential hypertension Old myocardial infarction Diverticulitis Arthritis Seasonal allergies Hemorrhoids Hx of squamous cell carcinoma of skin GO (obstructive sleep apnea) Hyperlipidemia CAD (coronary artery disease) Home Medications ???Medication ???Instructions ???Recorded ???Last Taken ???Type nitroglycerin 0.4 mg sublingual 0.4 mg sublingual Q5M PRN Chest Unknown History tablet Pain pantoprazole 20 mg tablet,delayed 20 mg PO DAILY 02/09/21 Unknown H istory release aspirin 81 mg tablet,delayed 81 mg PO DAILY 08/13/21 08/22/21 H istory release (Adult Aspirin Regimen) acetaminophen 500 mg tablet 1,000 mg PO BID 02/18/22 Unknown H istory naproxen sodium 220 mg tablet 440 mg PO BID 02/18/22 Unknown His tory ezetimibe 10 mg tablet 5 mg (1/2 x 10 mg) PO .QOD #45 tab s 09/11/22 Unknown Rx atorvastatin 10 mg tablet 5 mg (1/2 x 10 mg) PO .COMPLEX #45 04/22/23 Unknown Rx tabs cephalexin 500 mg capsule 500 mg PO Q6 #40 CAPSULES 03/18/25 Unknown Rx Allergy/AdvReac Type Severity Reaction Status Date / Time Penicillins (PCN) Allergy Itching Verified 03/18/25 13:43 ciprofloxacin (From Cipro) AdvReac Intermediate Unknown Verified 03/18/25 13:43 rosuvastatin (From Crestor) AdvReac Other Verified 03/18/25 13:43 simvastatin (From Zocor) AdvReac Other Verified 03/18/25 13:43 Family History Father Hypertension CAD (coronary artery disease) Mother CAD (coronary artery disease) Brother Cancer Skin cancer- Outside of anus Surgical History History of coronary artery stent placement Hx of total hip arthroplasty History of colonoscopy ( 2018) Presence of coronary angioplasty implant and graft ( 05/23/09) Hx of shoulder surgery History of left heart catheterization Hx of knee surgery Social History Smoking Status: Current every day smoker tobacco type: cigarettes second hand exposure: Yes alcohol intake: current alcohol intake frequency: holidays/special occasions only substance use type: does not use caffeine: Yes Type: carbonated beverages Number of servings: 1, coffee Number of servings: 2 and tea Number of servings: 1 what type of physical activity do you participate in: none frequency: does not exercise seatbelt use: always ROS ROS ED Constitutional Constitutional ED: Denies chills or fever(s) Eyes Eyes: Denies blurry vision or change in vision ENT ENT ED: Denies rhinorrhea or sore throat Cardiovascular Cardiovascular: Reports chest pain; Denies palpitations Respiratory/Chest Respiratory/Chest: Denies cough or dyspnea Gastrointestinal Gastrointestinal: Denies nausea or vomiting Genitourinary Genitourinary ED: Denies dysuria or hematuria Musculoskeletal Musculoskeletal: Denies back pain or neck pain Integumentary Denies abscess or rash Neurologic Neurologic: Denies headache(s) or weakness Allergic/Immunologic Allergic/Immunologic ED: Denies mouth swelling or urticaria EXAM Physical Exam Const Vital Signs: (more content not included)... Normal [facility] Eosinophil percentageOrdered By: Randal Flores on 03-18-2025 Eosinophils/100 WBC (Bld) 6.6 % High 0-5 [facility] Erythrocyte distribution wid th ratioOrdered By: Randal Flores on 03-18-2025 Erythrocyte distribution width (RBC) [Ratio] 13.9 % 11.6-14.6 [facility] Erythrocyte distribution wid th standard deviationOrdered By: Randal Flores on 03-18-2025 Erythrocyte distribution width (RBC) [Ratio] 46.4 fl High 35.1-43.9 [facility] Glomerular filtration rate ( GFR) estimation/1.73 sq m using serum, plasma, or whole bOrdered By: Randal Flores on 03-18-2025 GFR/1.73 sq M.predicted among non-blacks MDRD (S/P/Bld) [Vol rate/Area] 52 mL/min/{1.73_m2} Low >60 [facility] Comment on above: mL/min/1.73m2 CKD-EP I Creatinine Equation (2020) Hematocrit Auto (Bld) [Volum e fraction]Ordered By: Randal Flores on 03-18-2025 Hematocrit (Bld) [Volume fraction] 38.2 % Low 40-54 [facility] Hemoglobin measurementOrdere d By: Randal Flores on 03-18-2025 Hemoglobin (Bld) [Mass/Vol] 12.8 g/dL Low 13.0-16.5 [facility] Immature granulocytes/100 WB C Auto (Bld)Ordered By: Randal Flores 03-18-2025 Immature granulocytes/100 WBC (Bld) 4.300 % High 0.0-0.9 [facility] Comment on above: IG% - Immature Granu locytes (promyelocytes, myelocytes and metamyelocytes) > 1% indicates that a LEFT SHIFT is Present. International normalized rat io (INR) calculationOrdered By: Randal Flores on 03-18-2025 INR Coag (Bld) [Relative time] 1.1 {INR} [facility] MCV (mean corpuscular volume ) determinationOrdered By: Randal Flores 03-18-2025 MCV (RBC) [Entitic vol] 92.0 fL 80-94 [facility] Mean corpuscular hemoglobin (MCH) determinationOrdered By: Randal Flores on 03-18-2025 MCH (RBC) [Entitic mass] 30.8 pg 27.0-32.0 [facility] Mean corpuscular hemoglobin concentration (MCHC) determinationOrdered By: Randal Flores on 03-18-2025 MCHC (RBC) [Mass/Vol] 33.5 g/dL 32-36 [facility] Mean platelet volume determi nationOrdered By: Randal Flores on 03-18-2025 Platelet mean volume (Bld) [Entitic vol] 8.2 fL 6.2-12.0 [facility] Monocyte percentageOrdered B y: Randal Flores on 03-18-2025 Monocytes/100 WBC (Bld) 9.6 % 0-10 [facility] Neutrophil percentageOrdered By: Randal Flores on 03-18-2025 Neutrophils/100 WBC (Bld) 66.2 % 47-70 [facility] Nucleated red blood cell per centageOrdered By: Randal Flores on 03-18-2025 Nucleated RBC/100 WBC (Bld) [Ratio] 0 % 0-5 [facility] Partial Thromboplast Timeon 03-18-2025 aPTT Coag (Bld) [Time] 26.8 s Normal 24.1-36.2 [facility] Comment on above: Performed By: #### L 100.0100, L500.2500 #### [facility] [address] [place] [address], [address] Platelet countOrdered By: Jose Flores on 03-18-2025 Platelets (Bld) [#/Vol] 376 10*3/uL 150-450 [facility] Platelet estimateOrdered By: Randal Flores on 03-18-2025 Platelets LM Ql (Bld) ADEQUATE ADEQ [facility] Potassium measurement (mass/ volume)Ordered By: Randal Flores on 03-18-2025 Potassium (Unsp spec) [Mass/Vol] 4.8 mmol/L 3.3-5.1 [facility] Prothrombin Time w/INRon INR Coag (PPP) [Relative time] 1.1 {INR} Normal [facility] Comment on above: Performed By: #### L 100.0100, L500.2500 #### [facility] [address] [place], [address] PT Coag (PPP) [Time] 14.1 s Normal 11.7-14.9 [facility] Comment on above: Performed By: #### L 100.0100, L500.2500 #### [facility] [address] [place], [address] Prothrombin timeOrdered By: Randal Flores on 03-18-2025 PT Coag (PPP) [Time] 14.1 s 11.7-14.9 [facility] RBC Auto (Bld) [#/Vol]Ordere d By: Randal Flores on 03-18-2025 RBC (Bld) [#/Vol] 4.15 10*6/uL Low 4.6-6.2 [facility] Serum creatinine measurement (mass/volume)Ordered By: Randal Flores on 03-18-2025 Creatinine [Mass/Vol] 1.46 mg/dL High 0.70-1.20 [facility] Serum glucose measurement (m ass/volume)Ordered By: Randal Flores on 03-18-2025 Glucose [Mass/Vol] 100 mg/dL High 70-99 [facility] Serum or plasma calcium jimy urement (mass/volume)Ordered By: Randal Flores on 03-18-2025 Calcium [Mass/Vol] 9.2 mg/dL 7.6-11.0 [facility] Serum or plasma urea nitroge n measurement (mass/volume)Ordered By: Randal Flores on 03-18-2025 Urea nitrogen [Mass/Vol] 18 mg/dL 4-19 [facility] Sodium levelOrdered By: Randal Flores on 03-18-2025 Sodium [Moles/Vol] 136 mmol/L 133-145 [facility] Venous Duplex US, Unilateral on 03-18-2025 Venous Duplex US, Unilateral [facility] [address] [place] [address] Venous Duplex US, Unilateral 03/18/251548 MR#: [id number] Acct: [id number] Name: MEIR LANDRUM Rep #: [id number] : 1955 69 From: Randal Alexandre MD Attending Dr: Status: [facility] ER Ordering Dr: Randal Flores DO Date: 03/18/25 Location: ED Sex: M C Admitted: Reason For Study Reason For Study: Swelling RIGHT LEFT GSV harvested for CABG. CFV is compressible, spontaneous, phasic, competent, CFV is compressible, spontaneous, phasic, competent and demonstrates normal augmentation. and demonstrates normal augmentation. FV is compressible, spontaneous, phasic, competent and demonstrates normal augmentation. POP V is compressible, spontaneous, phasic, competent and demonstrates normal augmentation. T/P Trunk is compressible. PTV is compressible. RT PerV is compressible. Procedure This is a venous duplex using B-mode, color flow and spectral Doppler. Exam performed portable in ED. A preliminary report was called and/or faxed to MICHELLE Mccullough. VL/Venous Duplex US, Unilateral Interpretation Summary Deep veins of the right lower extremity are patent and compressible segmentally. There is no evidence of right lower extremity deep vein thrombosis. Ordering Physician: Randal Flores Referring Physician: Pratibha Ronquillo Performed By: Rhonda Mayfield RVT 03/21/25 1252 Date Randal Alexandre MD CC: Dr. Randal Flores DO; Dr. Pratibha Ronquillo DO Date Dictated: 03/18/25 1549 Date Transcribed: 03/21/25 1252 Instructional Consultant: Signed Normal [facility] White blood cell (WBC) count Ordered By: Randal Flores on 03-18-2025 WBC (Bld) [#/Vol] 18.0 10*3/uL High 4.4-11.0 [facility] CARDIAC RHYTHMon 03-15-2025 [facility] CBC,PLATELETSon 03-15-2025 Erythrocyte distribution width (RBC) [Ratio] 13.6 % 10.9 - 14.3 % [facility] Hematocrit (Bld) [Volume fraction] 36.6 % Low 39.6 - 48.8 % [facility] Hemoglobin (Bld) [Mass/Vol] 12.4 g/dL Low 13.4 - 16.8 g/dL [facility] Interpretation and review of laboratory results Abnormal [facility] MCH (RBC) [Entitic mass] 30.9 pg 26.1 - 33.3 pg [facility] MCHC (RBC) [Mass/Vol] 33.9 g/dL 31.9 - 36.5 g/dL [facility] MCV (RBC) [Entitic vol] 91.3 fL 79.0 - 94.5 fL [facility] Platelet mean volume (Bld) [Entitic vol] 8.6 fL Low 8.7 - 12.3 fL [facility] Platelets (Bld) [#/Vol] 251 10*3/uL 146 - 337 K/uL [facility] RBC (Bld) [#/Vol] 4.01 10*6/uL Low [facility] WBC (Bld) [#/Vol] 15.26 10*3/uL High 3.73 - 10.10 K/uL [facility] Hematocrit (Bld) [Volume fraction] 36.6 % Low 39.6-48.8 [facility] Comment on above: Performed By: #### S URGP #### [facility] (DEFAULT) [address] [place] [address] Hemoglobin (Bld) [Mass/Vol] 12.4 g/dL Low 13.4-16.8 [facility] Comment on above: Performed By: #### S URGP #### [facility] (DEFAULT) [address] [address] MCV (RBC) [Entitic vol] 91.3 fL Normal 79.0-94.5 [facility] Comment on above: Performed By: #### S URGP #### [facility] (DEFAULT) [address] [place] [address] Mean Cell Hgb 30.9 pg Normal 26.1-33.3 [facility] Comment on above: Performed By: #### S URGP #### [facility] (DEFAULT) [address] [address] Mean Cell Hgb Conc 33.9 g/dL Normal 31.9-36.5 [facility] Comment on above: Performed By: #### S URGP #### [facility] (DEFAULT) [address] [address] Platelet mean volume (Bld) [Entitic vol] 8.6 fL Low 8.7-12.3 [facility] Comment on above: Performed By: #### S URGP #### [facility] (DEFAULT) [address] [address] Platelets (Bld) [#/Vol] 251 10*3/uL Normal 146-337 [facility] Comment on above: Performed By: #### S URGP #### [facility] (DEFAULT) [address] [address] RBC (Bld) [#/Vol] 4.01 10*6/uL Low 4.38-5.83 [facility] Comment on above: Performed By: #### S URGP #### [facility] (DEFAULT) [address] [address] RBC Distribution 13.6 % Normal 10.9-14.3 [facility] Comment on above: Performed By: #### S URGP #### [facility] (DEFAULT) [address] [place] [address] WBC (Bld) [#/Vol] 15.26 10*3/uL High 3.73-10.10 [facility] Comment on above: Performed By: #### S URGP #### [facility] (DEFAULT) [address] [place] [address] CHEM 7 (LYTES,BUN,CREA,GLUC) on 03-15-2025 Anion gap [Moles/Vol] 11 mmol/L 7 - 17 mmol/L [facility] Chloride [Moles/Vol] 99 mmol/L 98 - 10 8 mmol/L [facility] CO2 [Moles/Vol] 27 mmol/L 21 - 31 mmol/L [facility] Creatinine [Mass/Vol] 0.88 mg/dL 0.70 - 1.30 mg/dL [facility] eGFR, CKD-EPI, Male - PINF [facility] Comment on above: Reported eGFR is bas ed on the CKD-EPI 2020 equation using creatinine, age, and sex. Glucose [Mass/Vol] 97 mg/dL 70 - 179 mg/dL [facility] Interpretation and review of laboratory results Abnormal [facility] Osmolality Calc [Osmolality] 280 [facility] Potassium [Moles/Vol] 4 mmol/L 3.5 - 5.0 mmol/L [facility] Sodium [Moles/Vol] 133 mmol/L Low 135 - 145 mmol/L [facility] Urea nitrogen [Mass/Vol] 15 mg/dL 7 - 25 mg/dL [facility] Urea nitrogen/Creatinine [Mass ratio] 17 mg/mg [facility] Anion gap [Moles/Vol] 11 mmol/L Normal 7-17 [facility] Comment on above: Performed By: #### F IB, PTPTT #### [facility] (DEFAULT) [address] [place] [address] Chloride [Moles/Vol] 99 mmol/L Normal 98-108 [facility] Comment on above: Performed By: #### F IB, PTPTT #### [facility] (DEFAULT) [address] [place] [address] CO2 [Moles/Vol] 27 mmol/L Normal 21-31 [facility] Comment on above: Performed By: #### F IB, PTPTT #### [facility] (DEFAULT) [address] [place] [address] Creatinine [Mass/Vol] 0.88 mg/dL Normal 0.70-1.30 [facility] Comment on above: Performed By: #### F IB, PTPTT #### [facility] (DEFAULT) [address] [place] [address] eGFR, CKD-EPI, Male > Normal >=60 [facility] Comment on above: Result Comment: Repo rted eGFR is based on the CKD-EPI 2020 equation using creatinine, age, and sex. Performed By: #### F IB, PTPTT #### [facility] (DEFAULT) [address] [place] [address] Glucose [Mass/Vol] 97 mg/dL Normal Nonfastin -179 mg/dL; Fastin-99 [facility] Comment on above: Performed By: #### F IB, PTPTT #### [facility] (DEFAULT) [address] [place] [address] Osmolality [Osmolality] 280 mosm/kg Normal 278-305 [facility] Comment on above: Performed By: #### F IB, PTPTT #### [facility] (DEFAULT) [address] [place] [address] Potassium [Moles/Vol] 4.0 mmol/L Normal 3.5-5.0 [facility] Comment on above: Performed By: #### F IB, PTPTT #### [facility] (DEFAULT) [address] [place] [address] Sodium [Moles/Vol] 133 mmol/L Low 135-145 [facility] Comment on above: Performed By: #### F IB, PTPTT #### [facility] (DEFAULT) [address] [place] [address] Urea nitrogen [Mass/Vol] 15 mg/dL Normal 7-25 [facility] Comment on above: Performed By: #### F IB, PTPTT #### [facility] (DEFAULT) [address] [place] [address] Urea nitrogen/Creatinine [Mass ratio] 17 mg/mg Normal [facility] Comment on above: Performed By: #### F IB, PTPTT #### [facility] (DEFAULT) [address] [place] [address] MAGNESIUMon 03-15-2025 Interpretation and review of laboratory results Normal [facility] Magnesium [Mass/Vol] 2.3 mg/dL 1.6 - 2 .6 mg/dL [facility] Magnesium [Mass/Vol] 2.3 mg/dL Normal 1.6-2.6 [facility] Comment on above: Performed By: #### F IB, PTPTT #### [facility] (DEFAULT) [address] [place] [address] No Panel Informationon 03-15 [facility] Portable XR Chest Viewson IMPRESSION: Improved right pleural effusion and right basilar atelectasis. OLOGY EXAM: XR CHEST 1 VIE W PORTABLE, 03/15/2025 06:21 AM COMPARISON: Compared to prior day. CLINICAL INDICATIONS: post op heart surgery RELEVANT CLINICAL HISTORY: FINDINGS: (Adequate technique) Implanted Devices: None Thorax: No new acute findings in the chest. Improved right pleural effusion and right basilar atelectasis. No other change. RADIOLOGY Carolina Goldstein MB [facility] - 03/15/2025 EXAM: XR CHEST 1 VIEW PORTABLE, 03/15/2025 06:21 AM COMPARISON: Compared to prior day. CLINICAL INDICATIONS: post op heart surgery RELEVANT CLINICAL HISTORY: FINDINGS: (Adequate technique) Implanted Devices: None Thorax: No new acute findings in the chest. Improved right pleural effusion and right basilar atelectasis. No other change. IMPRESSION IMPRESSION: Improved right pleural effusion and right basilar atelectasis. [facility] Radiology Study observation (narrative) [facility] XR CHEST 1 VIEW PORTABLEon 0 03-15-2025 XR CHEST 1 VIEW PORTABLE EXAM: XR CHEST 1 VIEW PORTABLE, 03/15/2025 06:21 AM COMPARISON: Compared to prior day. CLINICAL INDICATIONS: post op heart surgery RELEVANT CLINICAL HISTORY: FINDINGS: (Adequate technique) Implanted Devices: None Thorax: No new acute findings in the chest. Improved right pleural effusion and right basilar atelectasis. No other change. IMPRESSION: Improved right pleural effusion and right basilar atelectasis. Normal [facility] CBC,PLATELETSon 03-14-2025 Erythrocyte distribution width (RBC) [Ratio] 13.2 % 10.9 - 14.3 % [facility] Hematocrit (Bld) [Volume fraction] 35.8 % Low 39.6 - 48.8 % [facility] Hemoglobin (Bld) [Mass/Vol] 12.3 g/dL Low 13.4 - 16.8 g/dL [facility] Interpretation and review of laboratory results Abnormal [facility] MCH (RBC) [Entitic mass] 31.4 pg 26.1 - 33.3 pg [facility] MCHC (RBC) [Mass/Vol] 34.4 g/dL 31.9 - 36.5 g/dL [facility] MCV (RBC) [Entitic vol] 91.3 fL 79.0 - 94.5 fL [facility] Platelet mean volume (Bld) [Entitic vol] 9.1 fL 8.7 - 12.3 fL [facility] Platelets (Bld) [#/Vol] 196 10*3/uL 146 - 337 K/uL [facility] RBC (Bld) [#/Vol] 3.92 10*6/uL Low [facility] WBC (Bld) [#/Vol] 15.44 10*3/uL High 3.73 - 10.10 K/uL [facility] Hematocrit (Bld) [Volume fraction] 35.8 % Low 39.6-48.8 [facility] Comment on above: Performed By: #### F IB, PTPTT #### [facility] (DEFAULT) [address] [place] [address] [id number] Hemoglobin (Bld) [Mass/Vol] 12.3 g/dL Low 13.4-16.8 [facility] Comment on above: Performed By: #### F IB, PTPTT #### [facility] (DEFAULT) [address] [place] [address] 15711 MCV (RBC) [Entitic vol] 91.3 fL Normal 79.0-94.5 [facility] Comment on above: Performed By: #### F IB, PTPTT #### [facility] (DEFAULT) [address] [place] [address] 38009 Mean Cell Hgb 31.4 pg Normal 26.1-33.3 [facility] Comment on above: Performed By: #### F IB, PTPTT #### [facility] (DEFAULT) [address] [place] [address] 16468 Mean Cell Hgb Conc 34.4 g/dL Normal 31.9-36.5 [facility] Comment on above: Performed By: #### F IB, PTPTT #### [facility] (DEFAULT) [address] [place] [address] 97159 Platelet mean volume (Bld) [Entitic vol] 9.1 fL Normal 8.7-12.3 [facility] Comment on above: Performed By: #### F IB, PTPTT #### [facility] (DEFAULT) [address] [place] [address] 13192 Platelets (Bld) [#/Vol] 196 10*3/uL Normal 146-337 [facility] Comment on above: Performed By: #### F IB, PTPTT #### [facility] (DEFAULT) [address] [place] [address] 59259 RBC (Bld) [#/Vol] 3.92 10*6/uL Low 4.38-5.83 [facility] Comment on above: Performed By: #### F IB, PTPTT #### [facility] (DEFAULT) [address] [place] [address] 31080 RBC Distribution 13.2 % Normal 10.9-14.3 [facility] Comment on above: Performed By: #### F IB, PTPTT #### [facility] (DEFAULT) [address] [place] [address] 65470 WBC (Bld) [#/Vol] 15.44 10*3/uL High 3.73-10.10 [facility] Comment on above: Performed By: #### F IB, PTPTT #### [facility] (DEFAULT) [address] [place] [address] 04082 CHEM 7 (LYTES,BUN,CREA,GLUC) on 03-14-2025 Anion gap [Moles/Vol] 14 mmol/L 7 - 17 mmol/L [facility] Chloride [Moles/Vol] 96 mmol/L Low 98 - 10 8 mmol/L [facility] CO2 [Moles/Vol] 24 mmol/L 21 - 31 mmol/L [facility] Creatinine [Mass/Vol] 0.87 mg/dL 0.70 - 1.30 mg/dL [facility] eGFR, CKD-EPI, Male - PINF [facility] Comment on above: Reported eGFR is bas ed on the CKD-EPI 2020 equation using creatinine, age, and sex. Glucose [Mass/Vol] 98 mg/dL 70 - 179 mg/dL [facility] Interpretation and review of laboratory results Abnormal [facility] Osmolality Calc [Osmolality] 275 Low [facility] Potassium [Moles/Vol] 3.6 mmol/L 3.5 - 5.0 mmol/L [facility] Sodium [Moles/Vol] 130 mmol/L Low 135 - 145 mmol/L [facility] Urea nitrogen [Mass/Vol] 18 mg/dL 7 - 25 mg/dL [facility] Urea nitrogen/Creatinine [Mass ratio] 21 mg/mg [facility] Anion gap [Moles/Vol] 14 mmol/L Normal 7-17 [facility] Comment on above: Performed By: #### C HM7, MGO ####[facility] (DEFAULT)[address] [place] [address] Chloride [Moles/Vol] 96 mmol/L Low 98-108 [facility] Comment on above: Performed By: #### C HM7, MGO ####[facility] (DEFAULT)[address] [place] [address] CO2 [Moles/Vol] 24 mmol/L Normal 21-31 [facility] Comment on above: Performed By: #### C HM7, MGO ####[facility] (DEFAULT)[address] [place] [address] Creatinine [Mass/Vol] 0.87 mg/dL Normal 0.70-1.30 [facility] Comment on above: Performed By: #### C HM7, MGO ####[facility] (DEFAULT)[address] [place] [address] eGFR, CKD-EPI, Male > Normal >=60 [facility] Comment on above: Result Comment: Repo rted eGFR is based on the CKD-EPI 2020 equation using creatinine, age, and sex. Performed By: #### C HM7, MGO ####[facility] (DEFAULT)[address] [place] [address] Glucose [Mass/Vol] 98 mg/dL Normal Nonfastin -179 mg/dL; Fastin-99 [facility] Comment on above: Performed By: #### C HM7, MGO ####[facility] (DEFAULT)[address] [facility] [place] [address] Osmolality [Osmolality] 275 mosm/kg Low 278-305 [facility] Comment on above: Performed By: #### C HM7, MGO ####[facility] (DEFAULT)[address] [place] [address] Potassium [Moles/Vol] 3.6 mmol/L Normal 3.5-5.0 [facility] Comment on above: Performed By: #### C HM7, MGO ####[facility] (DEFAULT)[address] [facility] [place] [address] Sodium [Moles/Vol] 130 mmol/L Low 135-145 [facility] Comment on above: Performed By: #### C HM7, MGO ####[facility] (DEFAULT)[address] [place] [address] Urea nitrogen [Mass/Vol] 18 mg/dL Normal 7-25 [facility] Comment on above: Performed By: #### C HM7, MGO ####[facility] (DEFAULT)[address] [place] [address] Urea nitrogen/Creatinine [Mass ratio] 21 mg/mg Normal [facility] Comment on above: Performed By: #### C HM7, MGO ####[facility] (DEFAULT)[address] [place] [address] MAGNESIUMon 03-14-2025 Interpretation and review of laboratory results Normal [facility] Magnesium [Mass/Vol] 2.2 mg/dL 1.6 - 2 .6 mg/dL [facility] Magnesium [Mass/Vol] 2.2 mg/dL Normal 1.6-2.6 [facility] Comment on above: Performed By: #### C HM7, MGO ####[facility] (DEFAULT)[address] [place], [place] [id number] No Panel Informationon 03-14 [facility] Portable XR Chest Viewson IMPRESSION: No pneumothorax after thoracostomy tube removal. OLOGY EXAM: XR CHEST 1 VIE W PORTABLE, 03/14/2025 11:40 AM COMPARISON: March 14, 2025 CLINICAL INDICATIONS: post removal of pleural CT - r/o pneumo RELEVANT CLINICAL HISTORY: FINDINGS: (Adequate technique) Left thoracostomy tube is removed. No pneumothorax. No other change. RADIOLOGY Zelda Vernon M D - 03/14/2025 EXAM: XR CHEST 1 VIEW PORTABLE, 03/14/2025 11:40 AM COMPARISON: March 14, 2025 CLINICAL INDICATIONS: post removal of pleural CT - r/o pneumo RELEVANT CLINICAL HISTORY: FINDINGS: (Adequate technique) Left thoracostomy tube is removed. No pneumothorax. No other change. IMPRESSION IMPRESSION: No pneumothorax after thoracostomy tube removal. [facility] Radiology Study observation (narrative) [facility] IMPRESSION: No significant change from the previous examination OLOGY EXAM: XR CHEST 1 VIE W PORTABLE, 03/14/2025 06:32 AM COMPARISON: Compared to prior day. CLINICAL INDICATIONS: post op heart surgery RELEVANT CLINICAL HISTORY: FINDINGS: (Adequate technique) Implanted Devices: Stable left chest tube. Thorax: No new acute findings in the chest stable small right pleural effusion and bibasilar atelectasis. No pneumothorax. RADIOLOGY Carolina Goldstein MB [facility] - 03/14/2025 EXAM: XR CHEST 1 VIEW PORTABLE, 03/14/2025 06:32 AM COMPARISON: Compared to prior day. CLINICAL INDICATIONS: post op heart surgery RELEVANT CLINICAL HISTORY: FINDINGS: (Adequate technique) Implanted Devices: Stable left chest tube. Thorax: No new acute findings in the chest stable small right pleural effusion and bibasilar atelectasis. No pneumothorax. IMPRESSION IMPRESSION: No significant change from the previous examination [facility] Radiology Study observation (narrative) [facility] Portable XR Chest ViewsOrder ed By: Zelda Vernon on 03-14-2025 [facility] Work Phone: Portable XR Chest ViewsOrder ed By: Carolina Goldstein on 03-14-2025 [facility] Work Phone: TYPE AND SCREENon 03-14-2025 ABO/RH(D) TYPE Positive [facility] Specimen Expiration 03/17/2025 23:59 [facility] ABO/RH(D) TYPE Positive Normal [facility] Comment on above: Performed By: #### X M #### [facility] (DEFAULT) [address] [place] [address] Specimen Expiration 03/17/2025 23:59 Normal [facility] Comment on above: Performed By: #### X M #### [facility] (DEFAULT) [address] [place], [place] [id number] XR CHEST 1 VIEW PORTABLEon 0 03-14-2025 XR CHEST 1 VIEW PORTABLE EXAM: XR CHEST 1 VIEW PORTABLE, 03/14/2025 11:40 AM COMPARISON: March 14, 2025 CLINICAL INDICATIONS: post removal of pleural CT - r/o pneumo RELEVANT CLINICAL HISTORY: FINDINGS: (Adequate technique) Left thoracostomy tube is removed. No pneumothorax. No other change. IMPRESSION: No pneumothorax after thoracostomy tube removal. Normal [facility] XR CHEST 1 VIEW PORTABLE EXAM: XR CHEST 1 VIEW PORTABLE, 03/14/2025 06:32 AM COMPARISON: Compared to prior day. CLINICAL INDICATIONS: post op heart surgery RELEVANT CLINICAL HISTORY: FINDINGS: (Adequate technique) Implanted Devices: Stable left chest tube. Thorax: No new acute findings in the chest stable small right pleural effusion and bibasilar atelectasis. No pneumothorax. IMPRESSION: No significant change from the previous examination Normal [facility] XR CHEST PA AND LATERAL 2 EWSon 03-14-2025 XR CHEST PA AND LATERAL 2 VIEWS EXAM: XR CHEST PA AND LATERAL 2 VIEWS, 03/14/2025 16:19 PM COMPARISON: Chest radiograph March 14, 2025 CLINICAL INDICATIONS: post removal of all chest tubes , r/o pneumo FINDINGS: (Adequate technique) Implanted Devices: Left shoulder arthroplasty. Well aligned sternotomy wires. Coronary ostial marker. Surgical clips along the mediastinum. Postsurgical changes status post CABG. Unchanged low lung volumes. Small right effusion with mild adjacent atelectasis. Stable cardiomediastinal silhouette. Degenerative changes of visualized osseous structures with no acute osseous abnormality. No pneumothorax. IMPRESSION: Stable exam with no pneumothorax. I personally viewed and interpreted these images and I have reviewed and approved this report. Normal [facility] XR Chest PA and Lateralon IMPRESSION: Stable exam with no pneumothorax. I personally viewed and interpreted these images and I have reviewed and approved this report. OLOGY EXAM: XR CHEST PA AN D LATERAL 2 VIEWS, 03/14/2025 16:19 PM COMPARISON: Chest radiograph March 14, 2025 CLINICAL INDICATIONS: post removal of all chest tubes , r/o pneumo FINDINGS: (Adequate technique) Implanted Devices: Left shoulder arthroplasty. Well aligned sternotomy wires. Coronary ostial marker. Surgical clips along the mediastinum. Postsurgical changes status post CABG. Unchanged low lung volumes. Small right effusion with mild adjacent atelectasis. Stable cardiomediastinal silhouette. Degenerative changes of visualized osseous structures with no acute osseous abnormality. No pneumothorax. RADIOLOGY Zelda Vernon M D - 03/14/2025 EXAM: XR CHEST PA AND LATERAL 2 VIEWS, 03/14/2025 16:19 PM COMPARISON: Chest radiograph March 14, 2025 CLINICAL INDICATIONS: post removal of all chest tubes , r/o pneumo FINDINGS: (Adequate technique) Implanted Devices: Left shoulder arthroplasty. Well aligned sternotomy wires. Coronary ostial marker. Surgical clips along the mediastinum. Postsurgical changes status post CABG. Unchanged low lung volumes. Small right effusion with mild adjacent atelectasis. Stable cardiomediastinal silhouette. Degenerative changes of visualized osseous structures with no acute osseous abnormality. No pneumothorax. IMPRESSION IMPRESSION: Stable exam with no pneumothorax. I personally viewed and interpreted these images and I have reviewed and approved this report. [facility] Radiology Study observation (narrative) [facility] CBC,PLATELETSon 03-13-2025 Erythrocyte distribution width (RBC) [Ratio] 13.1 % 10.9 - 14.3 % [facility] Hematocrit (Bld) [Volume fraction] 34 % Low 39.6 - 48.8 % [facility] Hemoglobin (Bld) [Mass/Vol] 11.7 g/dL Low 13.4 - 16.8 g/dL [facility] Interpretation and review of laboratory results Abnormal [facility] MCH (RBC) [Entitic mass] 30.8 pg 26.1 - 33.3 pg [facility] MCHC (RBC) [Mass/Vol] 34.4 g/dL 31.9 - 36.5 g/dL [facility] MCV (RBC) [Entitic vol] 89.5 fL 79.0 - 94.5 fL [facility] Platelet mean volume (Bld) [Entitic vol] 9.1 fL 8.7 - 12.3 fL [facility] Platelets (Bld) [#/Vol] 156 10*3/uL 146 - 337 K/uL [facility] RBC (Bld) [#/Vol] 3.8 10*6/uL Low [facility] WBC (Bld) [#/Vol] 19.49 10*3/uL High 3.73 - 10.10 K/uL [facility] Hematocrit (Bld) [Volume fraction] 34.0 % Low 39.6-48.8 [facility] Comment on above: Performed By: #### I CA #### [facility] (DEFAULT) [address] [place] [address] 60970 Hemoglobin (Bld) [Mass/Vol] 11.7 g/dL Low 13.4-16.8 [facility] Comment on above: Performed By: #### I CA #### [facility] (DEFAULT) [address] [place] [address] 01451 MCV (RBC) [Entitic vol] 89.5 fL Normal 79.0-94.5 [facility] Comment on above: Performed By: #### I CA #### [facility] (DEFAULT) [address] [place] [address] 61559 Mean Cell Hgb 30.8 pg Normal 26.1-33.3 [facility] Comment on above: Performed By: #### I CA #### [facility] (DEFAULT) [address] [place] [address] 32467 Mean Cell Hgb Conc 34.4 g/dL Normal 31.9-36.5 [facility] Comment on above: Performed By: #### I CA #### [facility] (DEFAULT) [address] [place] [address] 36886 Platelet mean volume (Bld) [Entitic vol] 9.1 fL Normal 8.7-12.3 [facility] Comment on above: Performed By: #### I CA #### [facility] (DEFAULT) [address] [place] [address] 94765 Platelets (Bld) [#/Vol] 156 10*3/uL Normal 146-337 [facility] Comment on above: Performed By: #### I CA #### [facility] (DEFAULT) [address] [place] [address] 21983 RBC (Bld) [#/Vol] 3.80 10*6/uL Low 4.38-5.83 [facility] Comment on above: Performed By: #### I CA #### [facility] (DEFAULT) [address] [place] [address] RBC Distribution 13.1 % Normal 10.9-14.3 [facility] Comment on above: Performed By: #### I CA #### [facility] (DEFAULT) [address] [place] [address] WBC (Bld) [#/Vol] 19.49 10*3/uL High 3.73-10.10 [facility] Comment on above: Performed By: #### I CA #### [facility] (DEFAULT) [address] [place] [address] CHEM 7 (LYTES,BUN,CREA,GLUC) on 03-13-2025 Anion gap [Moles/Vol] 12 mmol/L 7 - 17 mmol/L [facility] Chloride [Moles/Vol] 97 mmol/L Low 98 - 10 8 mmol/L [facility] CO2 [Moles/Vol] 26 mmol/L 21 - 31 mmol/L [facility] Creatinine [Mass/Vol] 0.95 mg/dL 0.70 - 1.30 mg/dL [facility] eGFR, CKD-EPI, Male 88 - PINF [facility] Comment on above: Reported eGFR is bas ed on the CKD-EPI 2020 equation using creatinine, age, and sex. Glucose [Mass/Vol] 118 mg/dL 70 - 179 mg/dL [facility] Interpretation and review of laboratory results Abnormal [facility] Osmolality Calc [Osmolality] 280 [facility] Potassium [Moles/Vol] 3.8 mmol/L 3.5 - 5.0 mmol/L [facility] Sodium [Moles/Vol] 131 mmol/L Low 135 - 145 mmol/L [facility] Urea nitrogen [Mass/Vol] 22 mg/dL 7 - 25 mg/dL [facility] Urea nitrogen/Creatinine [Mass ratio] 23 mg/mg [facility] Anion gap [Moles/Vol] 12 mmol/L Normal 7-17 [facility] Comment on above: Performed By: #### C ANDIDA AURIS SCREEN BY PCR #### [facility] (DEFAULT) [address] [place] [address] 18543 Chloride [Moles/Vol] 97 mmol/L Low 98-108 [facility] Comment on above: Performed By: #### C ANDIDA AURIS SCREEN BY PCR #### [facility] (DEFAULT) [address] [place] [address] 27685 CO2 [Moles/Vol] 26 mmol/L Normal 21-31 [facility] Comment on above: Performed By: #### C ANDIDA AURIS SCREEN BY PCR #### [facility] (DEFAULT) [address] [place] [address] 56861 Creatinine [Mass/Vol] 0.95 mg/dL Normal 0.70-1.30 [facility] Comment on above: Performed By: #### C ANDIDA AURIS SCREEN BY PCR #### Adriana [facility] (DEFAULT) [address] [place] [address] 88521 GFR/1.73 sq M.predicted among non-blacks MDRD (S/P/Bld) [Vol rate/Area] 88 mL/min/{1.73_m2} Normal >=60 [facility] Comment on above: Result Comment: Repo rted eGFR is based on the CKD-EPI 2020 equation using creatinine, age, and sex. Performed By: #### C ANDIDA AURIS SCREEN BY PCR #### [facility] (DEFAULT) [address] [place] [address] 33868 Glucose [Mass/Vol] 118 mg/dL Normal Nonfastin -179 mg/dL; Fastin-99 [facility] Comment on above: Performed By: #### C ANDIDA AURIS SCREEN BY PCR #### [facility] (DEFAULT) [address] [place] [address] 74468 Osmolality [Osmolality] 280 mosm/kg Normal 278-305 [facility] Comment on above: Performed By: #### C ANDIDA AURIS SCREEN BY PCR #### [facility] (DEFAULT) [address] [place] [address] 39971 Potassium [Moles/Vol] 3.8 mmol/L Normal 3.5-5.0 [facility] Comment on above: Performed By: #### C ANDIDA AURIS SCREEN BY PCR #### [facility] (DEFAULT) [address] [place] [address] 66480 Sodium [Moles/Vol] 131 mmol/L Low 135-145 [facility] Comment on above: Performed By: #### C ANDIDA AURIS SCREEN BY PCR #### [facility] (DEFAULT) [address] [place] [address] 10536 Urea nitrogen [Mass/Vol] 22 mg/dL Normal 7-25 [facility] Comment on above: Performed By: #### C ANDIDA AURIS SCREEN BY PCR #### [facility] (DEFAULT) [address] [place] [address] 96143 Urea nitrogen/Creatinine [Mass ratio] 23 mg/mg Normal [facility] Comment on above: Performed By: #### C ANDIDA AURIS SCREEN BY PCR #### [facility] (DEFAULT) [address] [place] [address] 11192 GLUCOSE POCon 03-13-2025 Glucose [Mass/Vol] 128 mg/dL 70 - 179 mg/dL [facility] POC Sample Type CAPBL [facility] Test performed at address of the patient encounter. [facility] Glucose [Mass/Vol] 100 mg/dL 70 - 179 mg/dL [facility] POC Sample Type CAPBL [facility] Test performed at address of the patient encounter. [facility] Glucose [Mass/Vol] 117 mg/dL 70 - 179 mg/dL [facility] POC Sample Type CAPBL [facility] Test performed at address of the patient encounter. [facility] MAGNESIUMon 03-13-2025 Interpretation and review of laboratory results Normal [facility] Magnesium [Mass/Vol] 2.4 mg/dL 1.6 - 2 .6 mg/dL [facility] Magnesium [Mass/Vol] 2.4 mg/dL Normal 1.6-2.6 [facility] Comment on above: Performed By: #### C ANDIDA AURIS SCREEN BY PCR #### [facility] (DEFAULT) [address] [place] [address] No Panel Informationon 03-13 [facility] Portable XR Chest Viewson IMPRESSION: Interval removal of the 3 anterior chest tubes without pneumothorax or other appreciable change. OLOGY EXAM: XR CHEST 1 VIE W PORTABLE, 03/13/2025 10:45 AM CLINICAL INDICATIONS: s/p CT removal RELEVANT CLINICAL HISTORY: COMPARISON: XR CHEST 1 VIEW PORTABLE March 13, 2025 FINDINGS: Unchanged midline sternal wires and coronary ostial marker. Interval removal of 2 of the 3 anterior chest tubes. Left humeral head prosthesis. No pneumothorax. Increased left greater than right volume loss, similar to the previous study. Prominent heart size. No pulmonary edema. Degenerative change of the thoracic spine. RADIOLOGY Phill Wing M D, PhD - 03/13/2025 EXAM: XR CHEST 1 VIEW PORTABLE, 03/13/2025 10:45 AM CLINICAL INDICATIONS: s/p CT removal RELEVANT CLINICAL HISTORY: COMPARISON: XR CHEST 1 VIEW PORTABLE March 13, 2025 FINDINGS: Unchanged midline sternal wires and coronary ostial marker. Interval removal of 2 of the 3 anterior chest tubes. Left humeral head prosthesis. No pneumothorax. Increased left greater than right volume loss, similar to the previous study. Prominent heart size. No pulmonary edema. Degenerative change of the thoracic spine. IMPRESSION IMPRESSION: Interval removal of the 3 anterior chest tubes without pneumothorax or other appreciable change. [facility] Radiology Study observation (narrative) [facility] IMPRESSION: Stable exam without pneumothorax. OLOGY EXAM: XR CHEST 1 VIE W PORTABLE, 03/13/2025 05:47 AM CLINICAL INDICATIONS: post op heart surgery RELEVANT CLINICAL HISTORY: COMPARISON: XR CHEST 1 VIEW PORTABLE March 12, 2025 FINDINGS: Unchanged midline sternal wires, coronary ostial markers and anterior chest tubes. No pneumothorax. Right greater than left basilar volume loss, unchanged. Normal heart size. No pulmonary edema. RADIOLOGY Phill Wing M D, PhD - 03/13/2025 EXAM: XR CHEST 1 VIEW PORTABLE, 03/13/2025 05:47 AM CLINICAL INDICATIONS: post op heart surgery RELEVANT CLINICAL HISTORY: COMPARISON: XR CHEST 1 VIEW PORTABLE March 12, 2025 FINDINGS: Unchanged midline sternal wires, coronary ostial markers and anterior chest tubes. No pneumothorax. Right greater than left basilar volume loss, unchanged. Normal heart size. No pulmonary edema. IMPRESSION IMPRESSION: Stable exam without pneumothorax. [facility] Radiology Study observation (narrative) [facility] XR CHEST 1 VIEW PORTABLEon 0 03-13-2025 XR CHEST 1 VIEW PORTABLE EXAM: XR CHEST 1 VIEW PORTABLE, 03/13/2025 10:45 AM CLINICAL INDICATIONS: s/p CT removal RELEVANT CLINICAL HISTORY: COMPARISON: XR CHEST 1 VIEW PORTABLE March 13, 2025 FINDINGS: Unchanged midline sternal wires and coronary ostial marker. Interval removal of 2 of the 3 anterior chest tubes. Left humeral head prosthesis. No pneumothorax. Increased left greater than right volume loss, similar to the previous study. Prominent heart size. No pulmonary edema. Degenerative change of the thoracic spine. IMPRESSION: Interval removal of the 3 anterior chest tubes without pneumothorax or other appreciable change. Normal [facility] XR CHEST 1 VIEW PORTABLE EXAM: XR CHEST 1 VIEW PORTABLE, 03/13/2025 05:47 AM CLINICAL INDICATIONS: post op heart surgery RELEVANT CLINICAL HISTORY: COMPARISON: XR CHEST 1 VIEW PORTABLE March 12, 2025 FINDINGS: Unchanged midline sternal wires, coronary ostial markers and anterior chest tubes. No pneumothorax. Right greater than left basilar volume loss, unchanged. Normal heart size. No pulmonary edema. IMPRESSION: Stable exam without pneumothorax. Normal [facility] CBC,PLATELETSon 03-12-2025 Erythrocyte distribution width (RBC) [Ratio] 13.4 % 10.9 - 14.3 % [facility] Hematocrit (Bld) [Volume fraction] 37 % Low 39.6 - 48.8 % [facility] Hemoglobin (Bld) [Mass/Vol] 12.3 g/dL Low 13.4 - 16.8 g/dL [facility] Interpretation and review of laboratory results Abnormal [facility] MCH (RBC) [Entitic mass] 30.5 pg 26.1 - 33.3 pg [facility] MCHC (RBC) [Mass/Vol] 33.2 g/dL 31.9 - 36.5 g/dL [facility] MCV (RBC) [Entitic vol] 91.8 fL 79.0 - 94.5 fL [facility] Platelet mean volume (Bld) [Entitic vol] 8.9 fL 8.7 - 12.3 fL [facility] Platelets (Bld) [#/Vol] 148 10*3/uL 146 - 337 K/uL [facility] RBC (Bld) [#/Vol] 4.03 10*6/uL Low [facility] WBC (Bld) [#/Vol] 22.26 10*3/uL High 3.73 - 10.10 K/uL [facility] Hematocrit (Bld) [Volume fraction] 37.0 % Low 39.6-48.8 [facility] Comment on above: Performed By: #### [facility] ####[facility] (DEFAULT)[address] [place] [address] Hemoglobin (Bld) [Mass/Vol] 12.3 g/dL Low 13.4-16.8 [facility] Comment on above: Performed By: #### H EMOGC ####[facility] (DEFAULT)[address] [place] [address] MCV (RBC) [Entitic vol] 91.8 fL Normal 79.0-94.5 [facility] Comment on above: Performed By: #### H EMOGC ####[facility] (DEFAULT)[address] [place] [address] Mean Cell Hgb 30.5 pg Normal 26.1-33.3 [facility] Comment on above: Performed By: #### H EMOGC ####[facility] (DEFAULT)[address] [facility] [place] [address] Mean Cell Hgb Conc 33.2 g/dL Normal 31.9-36.5 [facility] Comment on above: Performed By: #### H EMOGC ####[facility] (DEFAULT)[address] [facility] [place] [address] Platelet mean volume (Bld) [Entitic vol] 8.9 fL Normal 8.7-12.3 [facility] Comment on above: Performed By: #### H EMOGC ####[facility] (DEFAULT)[address] [place] [address] Platelets (Bld) [#/Vol] 148 10*3/uL Normal 146-337 [facility] Comment on above: Performed By: #### H EMOGC ####[facility] (DEFAULT)[address] [place] [address] RBC (Bld) [#/Vol] 4.03 10*6/uL Low 4.38-5.83 [facility] Comment on above: Performed By: #### H EMOGC ####[facility] (DEFAULT)[address] [place] [address] RBC Distribution 13.4 % Normal 10.9-14.3 [facility] Comment on above: Performed By: #### [facility] ####[facility] (DEFAULT)[address] [place] [address] WBC (Bld) [#/Vol] 22.26 10*3/uL High 3.73-10.10 [facility] Comment on above: Performed By: #### [facility] ####[facility] (DEFAULT)[address] [place] [address] CHEM 7 (LYTES,BUN,CREA,GLUC) Ordered By: Julito Bazzi on 03-12-2025 Anion gap [Moles/Vol] 12 mmol/L 7 - 17 mmol/L [facility] Chloride [Moles/Vol] 102 mmol/L 98 - 10 8 mmol/L [facility] CO2 [Moles/Vol] 23 mmol/L 21 - 31 mmol/L [facility] Creatinine [Mass/Vol] 1.05 mg/dL 0.70 - 1.30 mg/dL [facility] eGFR, CKD-EPI, Male 78 - PINF [facility] Comment on above: Reported eGFR is bas ed on the CKD-EPI 2020 equation using creatinine, age, and sex. Glucose [Mass/Vol] 103 mg/dL 70 - 179 mg/dL [facility] Interpretation and review of laboratory results Abnormal [facility] Osmolality Calc [Osmolality] 284 [facility] Potassium [Moles/Vol] 4.4 mmol/L 3.5 - 5.0 mmol/L [facility] Sodium [Moles/Vol] 133 mmol/L Low 135 - 145 mmol/L [facility] Urea nitrogen [Mass/Vol] 21 mg/dL 7 - 25 mg/dL [facility] Urea nitrogen/Creatinine [Mass ratio] 20 mg/mg [facility] CHEM 7 (LYTES,BUN,CREA,GLUC) on 03-12-2025 Anion gap [Moles/Vol] 12 mmol/L Normal 7-17 [facility] Comment on above: Performed By: #### I CA #### U [facility] (DEFAULT) [address] [place] [address] Chloride [Moles/Vol] 102 mmol/L Normal 98-108 [facility] Comment on above: Performed By: #### I CA #### [facility] (DEFAULT) [address] [place] [address] CO2 [Moles/Vol] 23 mmol/L Normal 21-31 [facility] Comment on above: Performed By: #### I CA #### U [facility] (DEFAULT) [address] [place] [address] Creatinine [Mass/Vol] 1.05 mg/dL Normal 0.70-1.30 [facility] Comment on above: Performed By: #### I CA #### U [facility] (DEFAULT) [address] [place] [address] GFR/1.73 sq M.predicted among non-blacks MDRD (S/P/Bld) [Vol rate/Area] 78 mL/min/{1.73_m2} Normal >=60 [facility] Comment on above: Result Comment: Repo rted eGFR is based on the CKD-EPI 2020 equation using creatinine, age, and sex. Performed By: #### I CA #### U [facility] (DEFAULT) [address] [place] [address] Glucose [Mass/Vol] 103 mg/dL Normal Nonfastin -179 mg/dL; Fastin-99 [facility] Comment on above: Performed By: #### I CA #### U [facility] (DEFAULT) [address] [place] [address] Osmolality [Osmolality] 284 mosm/kg Normal 278-305 [facility] Comment on above: Performed By: #### I CA #### [facility] (DEFAULT) [address] [place] [address] Potassium [Moles/Vol] 4.4 mmol/L Normal 3.5-5.0 [facility] Comment on above: Performed By: #### I CA #### [facility] (DEFAULT) [address] [place] [address] Sodium [Moles/Vol] 133 mmol/L Low 135-145 [facility] Comment on above: Performed By: #### I CA #### [facility] (DEFAULT) [address] [place] [address] Urea nitrogen [Mass/Vol] 21 mg/dL Normal 7-25 [facility] Comment on above: Performed By: #### I CA #### [facility] (DEFAULT) [address] [place] [address] Urea nitrogen/Creatinine [Mass ratio] 20 mg/mg Normal [facility] Comment on above: Performed By: #### I CA #### [facility] (DEFAULT) [address] [place] [address] FIBRINOGEN, CLOTTABLEon Fibrinogen Coag (PPP) [Mass/Vol] 677 mg/dL High 220 - 410 mg/dL [facility] Comment on above: Functional Fibrinoge n (activity) levels can be affected by direct thrombin inhibitors such as heparins (>2.0 IU/ml) and dabigatran. Abnormal results should be interpreted with caution. Interpretation and review of laboratory results Abnormal [facility] Fibrinogen-Clottable 677 mg/dL High 220-410 [facility] Comment on above: Result Comment: Func tional Fibrinogen (activity) levels can be affected by direct thrombin inhibitors such as heparins (>2.0 IU/ml) and dabigatran. Abnormal results should be interpreted with caution. Performed By: #### X MPO #### [facility] (DEFAULT) [address] [place] [address] GLUCOSE POCon 03-12-2025 Glucose [Mass/Vol] 141 mg/dL 70 - 179 mg/dL [facility] POC Sample Type CAPBL [facility] Test performed at address of the patient encounter. [facility] Glucose [Mass/Vol] 113 mg/dL 70 - 179 mg/dL [facility] POC Sample Type CAPBL [facility] Test performed at address of the patient encounter. [facility] Glucose [Mass/Vol] 88 mg/dL 70 - 179 mg/dL [facility] POC Sample Type CAPBL [facility] Test performed at address of the patient encounter. [facility] Glucose [Mass/Vol] 95 mg/dL 70 - 179 mg/dL [facility] POC Sample Type CAPBL [facility] Test performed at address of the patient encounter. [facility] IONIZED CALCIUM, WHOLE BLOOD Ordered By: Jone Simon on 03-12-2025 Calcium.ionized (Bld) [Moles/Vol] 4.69 mg/dL 4.60 - 5.30 mg/dL [facility] Interpretation and review of laboratory results Normal [facility] IONIZED CALCIUM, WHOLE BLOOD on 03-12-2025 ICA 4.69 mg/dL Normal 4.60-5.30 [facility] Comment on above: Order Comment: Maximus e draw daily with [facility] chemistry lab while patient is ICU status.Obtain if patient has new onset of atrial fibrillation with a Heart Rate greater than 110, and as dictated by patient serum electrolyte values and replacement therapy. Performed By: #### F IB, PTPTT #### [facility] (DEFAULT) [address] [place] [address] MAGNESIUMon 03-12-2025 Interpretation and review of laboratory results Normal [facility] Magnesium [Mass/Vol] 2.3 mg/dL 1.6 - 2 .6 mg/dL [facility] Magnesium [Mass/Vol] 2.3 mg/dL Normal 1.6-2.6 [facility] Comment on above: Performed By: #### I CA #### [facility] (DEFAULT) [address] [address] PT,INR,PTTon 03-12-2025 aPTT Coag (PPP) [Time] 34.7 s High [facility] INR Coag (Bld) [Relative time] 1.3 {INR} High 0.9 - 1.1 [facility] Interpretation and review of laboratory results Abnormal [facility] PT Coag (PPP) [Time] 16.6 s High [facility] aPTT Coag (Bld) [Time] 34.7 s High 24.0-34.3 [facility] Comment on above: Performed By: #### X MPO #### [facility] (DEFAULT) [address] [place] [address] INR Coag (PPP) [Relative time] 1.3 {INR} High 0.9-1.1 [facility] Comment on above: Performed By: #### X MPO #### [facility] (DEFAULT) [address] [place] [address] PT Coag (PPP) [Time] 16.6 s High 11.9-14.2 [facility] Comment on above: Performed By: #### X MPO #### [facility] (DEFAULT) [address] [place] [address] Portable XR Chest Viewson IMPRESSION: Interval removal of the right IJ pulmonary artery catheter without pneumothorax or other appreciable change. OLOGY EXAM: XR CHEST 1 VIE W PORTABLE, 03/12/2025 05:51 AM CLINICAL INDICATIONS: post op heart surgery RELEVANT CLINICAL HISTORY: COMPARISON: XR CHEST 1 VIEW PORTABLE March 11, 2025 FINDINGS: Unchanged midline sternal wires, coronary ostial markers and anterior chest tube. Left humeral head prosthesis. Interval removal of the right IJ pulmonary artery catheter. No pneumothorax. Right greater than left basilar volume loss, overall similar to the previous study. Heart size partially obscured by the volume loss. No pulmonary edema. RADIOLOGY Phill Wing M D, PhD - 03/12/2025 EXAM: XR CHEST 1 VIEW PORTABLE, 03/12/2025 05:51 AM CLINICAL INDICATIONS: post op heart surgery RELEVANT CLINICAL HISTORY: COMPARISON: XR CHEST 1 VIEW PORTABLE March 11, 2025 FINDINGS: Unchanged midline sternal wires, coronary ostial markers and anterior chest tube. Left humeral head prosthesis. Interval removal of the right IJ pulmonary artery catheter. No pneumothorax. Right greater than left basilar volume loss, overall similar to the previous study. Heart size partially obscured by the volume loss. No pulmonary edema. IMPRESSION IMPRESSION: Interval removal of the right IJ pulmonary artery catheter without pneumothorax or other appreciable change. [facility] Radiology Study observation (narrative) [facility] Portable XR Chest ViewsOrder ed By: Phill Wing on 03-12-2025 [facility] Work Phone: XR CHEST 1 VIEW PORTABLEon 0 03-12-2025 XR CHEST 1 VIEW PORTABLE EXAM: XR CHEST 1 VIEW PORTABLE, 03/12/2025 05:51 AM CLINICAL INDICATIONS: post op heart surgery RELEVANT CLINICAL HISTORY: COMPARISON: XR CHEST 1 VIEW PORTABLE March 11, 2025 FINDINGS: Unchanged midline sternal wires, coronary ostial markers and anterior chest tube. Left humeral head prosthesis. Interval removal of the right IJ pulmonary artery catheter. No pneumothorax. Right greater than left basilar volume loss, overall similar to the previous study. Heart size partially obscured by the volume loss. No pulmonary edema. IMPRESSION: Interval removal of the right IJ pulmonary artery catheter without pneumothorax or other appreciable change. Normal [facility] ACT* LOW RANGE, POCon 2024 ACT LOW RANGE, POC 116 [facility] Interpretation and review of laboratory results Normal [facility] Test performed at address of the patient encounter. [facility] ARTERIAL BLOOD GAS PLUS LACT ATEon 03-11-2025 Base excess Calc (Bld) [Moles/Vol] -3.8000 mmol/L Low -3.0 - 3.0 mmol/L [facility] CO2 (Bld) [Partial pressure] 46 mm[Hg] [facility] HCO3 (Bld) [Moles/Vol] 23 mmol/L 22 - 28 mmol/L [facility] Inhaled oxygen concentration [facility] Comment on above: 45% Interpretation and review of laboratory results Abnormal [facility] Lactate [Moles/Vol] 2.7 mmol/L High 0.5 - 1. 6 mmol/L [facility] Comment on above: Lactate results >/= 2.0 mmol/L should be followed up with a measurement 2 hours later for patients with suspicion of sepsis. Oxygen (Bld) [Partial pressure] 78 mm[Hg] Low [facility] Oxygen saturation in Blood 96 % 94 - 98 % [facility] pH (Bld) 7.3 [pH] Low 7.35 - 7.45 [facility] Specimen source Nom (Unsp spec) Arterial [facility] Base Excess -3.8 mmol/L Low -3.0-3.0 [facility] Comment on above: Performed By: #### X M #### [facility] (DEFAULT) [address] [place] [address] FIO2 Normal [facility] Comment on above: Result Comment: 45% Performed By: #### X M #### [facility] (DEFAULT) [address] [place] [address]75 HCO3 (Bld) [Moles/Vol] 23 mmol/L Normal 22-28 [facility] Comment on above: Performed By: #### X M #### [facility] (DEFAULT) [address] [place] [address] 06955 Lactate, Whole Blood 2.7 mmol/L High 0.5-1.6 [facility] Comment on above: Result Comment: Lact ate results >/= 2.0 mmol/L should be followed up with a measurement 2 hours later for patients with suspicion of sepsis. Performed By: #### X M #### [facility] (DEFAULT) [address] [place] [address] Oxygen saturation in Blood 96 % Normal 94-98 [facility] Comment on above: Performed By: #### X M #### [facility] (DEFAULT) [address] [place] [address] 11122 pCO2 46 mm Hg Normal 32-48 [facility] Comment on above: Performed By: #### X M #### [facility] (DEFAULT) [address] [place] [address] 26318 pH, Arterial 7.30 Low 7.35-7.45 [facility] Comment on above: Performed By: #### X M #### [facility] (DEFAULT) [address] [place] [address] 22012 pO2 78 mm Hg Low 83-108 [facility] Comment on above: Performed By: #### X M #### [facility] (DEFAULT) [address] [place] [address]69 Specimen type Nom (Spec) Arterial Normal [facility] Comment on above: Performed By: #### X M #### [facility] (DEFAULT) [address] [place] [address] Base excess Calc (Bld) [Moles/Vol] -5.6000 mmol/L Low -3.0 - 3.0 mmol/L [facility] CO2 (Bld) [Partial pressure] 48 mm[Hg] [facility] HCO3 (Bld) [Moles/Vol] 22 mmol/L 22 - 28 mmol/L [facility] Inhaled oxygen concentration [facility] Comment on above: 45% Interpretation and review of laboratory results Abnormal [facility] Lactate [Moles/Vol] 3.5 mmol/L High 0.5 - 1. 6 mmol/L [facility] Comment on above: Lactate results >/= 2.0 mmol/L should be followed up with a measurement 2 hours later for patients with suspicion of sepsis. Oxygen (Bld) [Partial pressure] 81 mm[Hg] Low [facility] Oxygen saturation in Blood 98 % 94 - 98 % [facility] pH (Bld) 7.26 [pH] Low 7.35 - 7.45 [facility] Specimen source Nom (Unsp spec) Arterial [facility] Base Excess -5.6 mmol/L Low -3.0-3.0 [facility] Comment on above: Performed By: #### G AS5L #### [facility] (DEFAULT) [address] [place] [address]10 FIO2 Normal [facility] Comment on above: Result Comment: 45% Performed By: #### G AS5L #### [facility] (DEFAULT) [address] [place] [address]186 HCO3 (Bld) [Moles/Vol] 22 mmol/L Normal 22-28 [facility] Comment on above: Performed By: #### G AS5L #### [facility] (DEFAULT) [address] [place] [address] 85997 Lactate, Whole Blood 3.5 mmol/L High 0.5-1.6 [facility] Comment on above: Result Comment: Lact ate results >/= 2.0 mmol/L should be followed up with a measurement 2 hours later for patients with suspicion of sepsis. Performed By: #### G AS5L #### [facility] (DEFAULT) [address] [place] [address] 76169 Oxygen saturation in Blood 98 % Normal 94-98 [facility] Comment on above: Performed By: #### G AS5L #### [facility] (DEFAULT) [address] [place] [address] 52750 pCO2 48 mm Hg Normal 32-48 [facility] Comment on above: Performed By: #### G AS5L #### [facility] (DEFAULT) [address] [place] [address] 39906 pH, Arterial 7.26 Low 7.35-7.45 [facility] Comment on above: Performed By: #### G AS5L #### [facility] (DEFAULT) [address] [place] [address] pO2 81 mm Hg Low 83-108 [facility] Comment on above: Performed By: #### G AS5L #### [facility] (DEFAULT) [address] [place] [address] Specimen type Nom (Spec) Arterial Normal [facility] Comment on above: Performed By: #### G AS5L #### [facility] (DEFAULT) [address] [place] [address] JL AURIS SCREEN BY PCRO rdered By: Laurence Alcala on 03-11-2025 Jl auris Screen by PCR Not detected Not Detected [facility] Interpretation and review of laboratory results Normal [facility] This test was perfor med using a real-time PCR assay. This test was developed, and its performance characteristics determined by [facility]. It has not been cleared or approved by the FDA. The laboratory is regulated under CLIA as qualified to perform high-complexity testing. This test is used for clinical purposes. It should not be regarded as investigational or for research. [facility] CBC,PLATELETSon 03-11-2025 Erythrocyte distribution width (RBC) [Ratio] 13.6 % 10.9 - 14.3 % [facility] Hematocrit (Bld) [Volume fraction] 36.7 % Low 39.6 - 48.8 % [facility] Hemoglobin (Bld) [Mass/Vol] 12.3 g/dL Low 13.4 - 16.8 g/dL [facility] Interpretation and review of laboratory results Abnormal [facility] MCH (RBC) [Entitic mass] 31.1 pg 26.1 - 33.3 pg [facility] MCHC (RBC) [Mass/Vol] 33.5 g/dL 31.9 - 36.5 g/dL [facility] MCV (RBC) [Entitic vol] 92.7 fL 79.0 - 94.5 fL [facility] Platelet mean volume (Bld) [Entitic vol] 8.8 fL 8.7 - 12.3 fL [facility] Platelets (Bld) [#/Vol] 208 10*3/uL 146 - 337 K/uL [facility] RBC (Bld) [#/Vol] 3.96 10*6/uL Low [facility] WBC (Bld) [#/Vol] 22.7 10*3/uL High 3.73 - 10.10 K/uL [facility] Hematocrit (Bld) [Volume fraction] 36.7 % Low 39.6-48.8 [facility] Comment on above: Order Comment: Draw lab 8 hours after arrival Performed By: #### G AS5L #### [facility] (DEFAULT) [address] [address] Hemoglobin (Bld) [Mass/Vol] 12.3 g/dL Low 13.4-16.8 [facility] Comment on above: Order Comment: Draw lab 8 hours after arrival Performed By: #### G AS5L #### [facility] (DEFAULT) [address] [address] MCV (RBC) [Entitic vol] 92.7 fL Normal 79.0-94.5 O [facility] Comment on above: Order Comment: Draw lab 8 hours after arrival Performed By: #### G AS5L #### [facility] (DEFAULT) [address] [address] Mean Cell Hgb 31.1 pg Normal 26.1-33.3 [facility] Comment on above: Order Comment: Draw lab 8 hours after arrival Performed By: #### G AS5L #### [facility] (DEFAULT) [address] [address] Mean Cell Hgb Conc 33.5 g/dL Normal 31.9-36.5 [facility] Comment on above: Order Comment: Draw lab 8 hours after arrival Performed By: #### G AS5L #### [facility] (DEFAULT) [address] [place] [address] Platelet mean volume (Bld) [Entitic vol] 8.8 fL Normal 8.7-12.3 [facility] Comment on above: Order Comment: Draw lab 8 hours after arrival Performed By: #### G AS5L #### [facility] (DEFAULT) [address] [place] [address] Platelets (Bld) [#/Vol] 208 10*3/uL Normal 146-337 [facility] Comment on above: Order Comment: Draw lab 8 hours after arrival Performed By: #### G AS5L #### [facility] (DEFAULT) [address] [place] [address] RBC (Bld) [#/Vol] 3.96 10*6/uL Low 4.38-5.83 [facility] Comment on above: Order Comment: Draw lab 8 hours after arrival Performed By: #### Alec AS5L #### [facility] (DEFAULT) [address] [place] [address]23 RBC Distribution 13.6 % Normal 10.9-14.3 [facility] Comment on above: Order Comment: Draw lab 8 hours after arrival Performed By: #### Alce AS5L #### [facility] (DEFAULT) [address] [place] [address] WBC (Bld) [#/Vol] 22.70 10*3/uL High 3.73-10.10 [facility] Comment on above: Order Comment: Draw lab 8 hours after arrival Performed By: #### G AS5L #### [facility] (DEFAULT) [address] [place] [address] CHEM 7 (LYTES,BUN,CREA,GLUC) on 03-11-2025 Anion gap [Moles/Vol] 15 mmol/L 7 - 17 mmol/L [facility] Chloride [Moles/Vol] 110 mmol/L High 98 - 10 8 mmol/L [facility] CO2 [Moles/Vol] 22 mmol/L 21 - 31 mmol/L [facility] Creatinine [Mass/Vol] 1.38 mg/dL High 0.70 - 1.30 mg/dL [facility] eGFR, CKD-EPI, Male 58 Low - PINF [facility] Comment on above: Reported eGFR is bas ed on the CKD-EPI 2020 equation using creatinine, age, and sex. Glucose [Mass/Vol] 113 mg/dL 70 - 179 mg/dL [facility] Osmolality Calc [Osmolality] 301 [facility] Potassium [Moles/Vol] 4.6 mmol/L 3.5 - 5.0 mmol/L [facility] Sodium [Moles/Vol] 142 mmol/L 135 - 145 mmol/L [facility] Urea nitrogen [Mass/Vol] 20 mg/dL 7 - 25 mg/dL [facility] Urea nitrogen/Creatinine [Mass ratio] 14 mg/mg [facility] Anion gap [Moles/Vol] 15 mmol/L Normal 7-17 [facility] Comment on above: Order Comment: This test was performed using a real-time PCR assay. This test was developed, and its performance characteristics determined by [facility]. It has not been cleared or approved by the FDA. The laboratory is regulated under CLIA as qualified to perform high-complexity testing. This test is used for clinical purposes. It should not be regarded as investigational or for research. Performed By: #### C ANDIDA AURIS SCREEN BY PCR #### [facility] (DEFAULT) [address] [address] Chloride [Moles/Vol] 110 mmol/L High 98-108 [facility] Comment on above: Order Comment: This test was performed using a real-time PCR assay. This test was developed, and its performance characteristics determined by [facility]. It has not been cleared or approved by the FDA. The laboratory is regulated under CLIA as qualified to perform high-complexity testing. This test is used for clinical purposes. It should not be regarded as investigational or for research. Performed By: #### C ANDIDA AURIS SCREEN BY PCR #### [facility] (DEFAULT) [address] [address] CO2 [Moles/Vol] 22 mmol/L Normal 21-31 [facility] Comment on above: Order Comment: This test was performed using a real-time PCR assay. This test was developed, and its performance characteristics determined by [facility]. It has not been cleared or approved by the FDA. The laboratory is regulated under CLIA as qualified to perform high-complexity testing. This test is used for clinical purposes. It should not be regarded as investigational or for research. Performed By: #### C ANDIDA AURIS SCREEN BY PCR #### [facility] (DEFAULT) [address] [address] Creatinine [Mass/Vol] 1.38 mg/dL High 0.70-1.30 [facility] Comment on above: Order Comment: This test was performed using a real-time PCR assay. This test was developed, and its performance characteristics determined by [facility]. It has not been cleared or approved by the FDA. The laboratory is regulated under CLIA as qualified to perform high-complexity testing. This test is used for clinical purposes. It should not be regarded as investigational or for research. Performed By: #### C ANDIDA AURIS SCREEN BY PCR #### [facility] [facility] (DEFAULT) [address] [address] GFR/1.73 sq M.predicted among non-blacks MDRD (S/P/Bld) [Vol rate/Area] 56 mL/min/{1.73_m2} Low >=60 [facility] Comment on above: Order Comment: This test was performed using a real-time PCR assay. This test was developed, and its performance characteristics determined by [facility]. It has not been cleared or approved by the FDA. The laboratory is regulated under CLIA as qualified to perform high-complexity testing. This test is used for clinical purposes. It should not be regarded as investigational or for research. Result Comment: Repo rted eGFR is based on the CKD-EPI 2020 equation using creatinine, age, and sex. Performed By: #### C ANDIDA AURIS SCREEN BY PCR #### [facility] (DEFAULT) [address] [place] [address] Glucose [Mass/Vol] 113 mg/dL Normal Nonfastin -179 mg/dL; Fastin-99 [facility] Comment on above: Order Comment: This test was performed using a real-time PCR assay. This test was developed, and its performance characteristics determined by [facility]. It has not been cleared or approved by the FDA. The laboratory is regulated under CLIA as qualified to perform high-complexity testing. This test is used for clinical purposes. It should not be regarded as investigational or for research. Performed By: #### C ANDIDA AURIS SCREEN BY PCR #### [facility] (DEFAULT) [address] [place] [address] Osmolality [Osmolality] 301 mosm/kg Normal 278-305 [facility] Comment on above: Order Comment: This test was performed using a real-time PCR assay. This test was developed, and its performance characteristics determined by [facility]. It has not been cleared or approved by the FDA. The laboratory is regulated under CLIA as qualified to perform high-complexity testing. This test is used for clinical purposes. It should not be regarded as investigational or for research. Performed By: #### C ANDIDA AURIS SCREEN BY PCR #### [facility] (DEFAULT) [address] [place] [address] Potassium [Moles/Vol] 4.6 mmol/L [facility] 3.5-5.0 [facility] above: Order Comment: This test was performed using a real-time PCR assay. This test was developed, and its performance characteristics determined by [facility]. It has not been cleared or approved by the FDA. The laboratory is regulated under CLIA as qualified to perform high-complexity testing. This test is used for clinical purposes. It should not be regarded as investigational or for research. Performed By: #### C ANDIDA AURIS SCREEN BY PCR #### [facility] (DEFAULT) [address] [address] Sodium [Moles/Vol] 142 mmol/L Normal 135-145 [facility] Comment on above: Order Comment: This test was performed using a real-time PCR assay. This test was developed, and its performance characteristics determined by [facility]. It has not been cleared or approved by the FDA. The laboratory is regulated under CLIA as qualified to perform high-complexity testing. This test is used for clinical purposes. It should not be regarded as investigational or for research. Performed By: #### C ANDIDA AURIS SCREEN BY PCR #### [facility] (DEFAULT) [address] [address] Urea nitrogen [Mass/Vol] 20 mg/dL Normal 7-25 [facility] Comment on above: Order Comment: This test was performed using a real-time PCR assay. This test was developed, and its performance characteristics determined by [facility]. It has not been cleared or approved by the FDA. The laboratory is regulated under CLIA as qualified to perform high-complexity testing. This test is used for clinical purposes. It should not be regarded as investigational or for research. Performed By: #### C ANDIDA AURIS SCREEN BY PCR #### [facility] (DEFAULT) [address] [address] Urea nitrogen/Creatinine [Mass ratio] 14 mg/mg Normal [facility] Comment on above: Order Comment: This test was performed using a real-time PCR assay. This test was developed, and its performance characteristics determined by [facility]. It has not been cleared or approved by the FDA. The laboratory is regulated under CLIA as qualified to perform high-complexity testing. This test is used for clinical purposes. It should not be regarded as investigational or for research. Performed By: #### C ANDIDA AURIS SCREEN BY PCR #### [facility] (DEFAULT) [address] [address] GLUCOSE POCon 03-11-2025 Glucose [Mass/Vol] 107 mg/dL 70 - 179 mg/dL [facility] POC Sample Type CAPBL [facility] Test performed at address of the patient encounter. [facility] Glucose [Mass/Vol] 108 mg/dL 70 - 179 mg/dL [facility] POC Sample Type CAPBL [facility] Test performed at address of the patient encounter. [facility] Glucose [Mass/Vol] 120 mg/dL 70 - 179 mg/dL [facility] POC Sample Type ARTER [facility] Test performed at address of the patient encounter. [facility] Glucose [Mass/Vol] 119 mg/dL 70 - 179 mg/dL [facility] POC Sample Type ARTER [facility] Test performed at address of the patient encounter. [facility] Glucose [Mass/Vol] 115 mg/dL 70 - 179 mg/dL [facility] POC Sample Type ARTER [facility] Test performed at address of the patient encounter. [facility] Glucose [Mass/Vol] 119 mg/dL 70 - 179 mg/dL [facility] Glucose [Mass/Vol] 136 mg/dL 70 - 179 mg/dL [facility] Glucose [Mass/Vol] 129 mg/dL 70 - 179 mg/dL [facility] POC Sample Type ARTER [facility] Test performed at address of the patient encounter. [facility] Glucose [Mass/Vol] 137 mg/dL 70 - 179 mg/dL [facility] POC Sample Type ARTER [facility] Test performed at address of the patient encounter. [facility] HEMOGLOBIN A1Con 03-11-2025 Average glucose Estimated from glycated hemoglobin (Bld) [Mass/Vol] 103 mg/dL [facility] HbA1c (Bld) [Mass fraction] 5.2 % 4.7 - 5.6 % [facility] Glucose [Mass/Vol] 103 mg/dL Normal [facility] Comment on above: Performed By: #### G AS5L #### [facility] (DEFAULT) [address] [address] Hemoglobin A1C HPLC 5.2 % Normal 4.7-5.6 [facility] Comment on above: Performed By: #### G AS5L #### [facility] (DEFAULT) [address] [address] IONIZED CALCIUM, WHOLE BLOOD Ordered By: Nia Goldsmith on 03-11-2025 Calcium.ionized (Bld) [Moles/Vol] 4.52 mg/dL Low 4.60 - 5.30 mg/dL [facility] Interpretation and review of laboratory results Abnormal [facility] IONIZED CALCIUM, WHOLE BLOOD on 03-11-2025 ICA 4.52 mg/dL Low 4.60-5.30 [facility] Comment on above: Order Comment: Draw lab 8 hours after arrival Performed By: #### I CA #### [facility] (DEFAULT) [address] [address] MAGNESIUMon 03-11-2025 Magnesium [Mass/Vol] 3.4 mg/dL High 1.6 - 2 .6 mg/dL [facility] Magnesium [Mass/Vol] 3.4 mg/dL High 1.6-2.6 [facility] Comment on above: Order Comment: This test was performed using a real-time PCR assay. This test was developed, and its performance characteristics determined by [facility]. It has not been cleared or approved by the FDA. The laboratory is regulated under CLIA as qualified to perform high-complexity testing. This test is used for clinical purposes. It should not be regarded as investigational or for research. Performed By: #### Supriya CASPER AURSOPHIA SCREEN BY PCR #### [facility] (DEFAULT) [address] [address] No Panel Informationon 03-11 POC Sample Type ARTER [facility] Test performed at address of the patient encounter. [facility] Interpretation and review of laboratory results Abnormal [facility] PT,INR,PTTon 03-11-2025 aPTT Coag (PPP) [Time] 30 s OS [facility] INR Coag (Bld) [Relative time] 1.2 {INR} High 0.9 - 1.1 [facility] Interpretation and review of laboratory results Abnormal [facility] PT Coag (PPP) [Time] 15.1 s High [facility] aPTT Coag (Bld) [Time] 30.0 s Normal 24.0-34.3 [facility] Comment on above: Order Comment: Draw lab 8 hours after arrival Performed By: #### I CA #### [facility] (DEFAULT) [address] [place] [address] INR Coag (PPP) [Relative time] 1.2 {INR} High 0.9-1.1 [facility] Comment on above: Order Comment: Draw lab 8 hours after arrival Performed By: #### I CA #### [facility] (DEFAULT) [address] [place] [address] PT Coag (PPP) [Time] 15.1 s High 11.9-14.2 [facility] Comment on above: Order Comment: Draw lab 8 hours after arrival Performed By: #### I CA #### [facility] (DEFAULT) [address] [place] [address] Portable XR Chest Viewson IMPRESSION: Interval extubation. Slight interval increase in bilateral basilar predominant opacities which may represent atelectasis. Correlate clinically for superimposed infection. OLOGY XR CHEST 1 VIEW PORTABLE, 03/11/2025 5:27 AM CLINICAL INFORMATION: Male, 69 years old. post op CABG TECHNIQUE: XR CHEST 1 VIEW PORTABLE COMPARISON: XR CHEST 1 VIEW PORTABLE March 10, 2025, CT CHEST WITHOUT CONTRAST March 04, 2025 FINDINGS: Low lung volumes make detailed cardiopulmonary evaluation difficult. Right internal jugular catheter with tip overlying the main pulmonary outflow tract. Left-sided chest tubes are again seen. There is slight interval increase in bilateral basilar predominant opacities. No large pleural effusion or significant pneumothorax. Interval extubation. Cardiomediastinal silhouette is stable. RADIOLOGY Jayda Llamas MD - 03/11/2025 XR CHEST 1 VIEW PORTABLE, 03/11/2025 5:27 AM CLINICAL INFORMATION: Male, 69 years old. post op CABG TECHNIQUE: XR CHEST 1 VIEW PORTABLE COMPARISON: XR CHEST 1 VIEW PORTABLE March 10, 2025, CT CHEST WITHOUT CONTRAST March 04, 2025 FINDINGS: Low lung volumes make detailed cardiopulmonary evaluation difficult. Right internal jugular catheter with tip overlying the main pulmonary outflow tract. Left-sided chest tubes are again seen. There is slight interval increase in bilateral basilar predominant opacities. No large pleural effusion or significant pneumothorax. Interval extubation. Cardiomediastinal silhouette is stable. IMPRESSION IMPRESSION: Interval extubation. Slight interval increase in bilateral basilar predominant opacities which may represent atelectasis. Correlate clinically for superimposed infection. [facility]narrative[facility] ViewsOrder ed By: Jayda Llamas on 03-11-2025 [facility] XR CHEST 1 VIEW PORTABLEon 0 03-11-2025 XR CHEST 1 VIEW PORTABLE XR CHEST 1 VIEW PORTABLE, 03/11/2025 5:27 AM CLINICAL INFORMATION: Male, 69 years old. post op CABG TECHNIQUE: XR CHEST 1 VIEW PORTABLE COMPARISON: XR CHEST 1 VIEW PORTABLE March 10, 2025, CT CHEST WITHOUT CONTRAST March 04, 2025 FINDINGS: Low lung volumes make detailed cardiopulmonary evaluation difficult. Right internal jugular catheter with tip overlying the main pulmonary outflow tract. Left-sided chest tubes are again seen. There is slight interval increase in bilateral basilar predominant opacities. No large pleural effusion or significant pneumothorax. Interval extubation. Cardiomediastinal silhouette is stable. IMPRESSION: Interval extubation. Slight interval increase in bilateral basilar predominant opacities which may represent atelectasis. Correlate clinically for superimposed infection. Normal [facility] ACTIVATED CLOTTING TIME,POCo n 03-10-2025 aPTT Coag (Bld) [Time] 120 s OS [facility] Interpretation and review of laboratory results [facility] a[facility] Coag (Bld) [Time] 422 s High OS [facility] Interpretation and review of laboratory results Abnormal [facility] Test performed at address of the patient encounter. [facility] aPTT Coag (Bld) [Time] 557 s High OS [facility] Interpretation and review of laboratory results Abnormal [facility] Test performed at address of the patient encounter. [facility] aPTT Coag (Bld) [Time] 631 s High OS [facility] Interpretation and review of laboratory results Abnormal [facility] Test performed at address of the patient encounter. [facility] aPTT Coag (Bld) [Time] 649 s High OS [facility] Interpretation and review of laboratory results Abnormal [facility] Test performed at address of the patient encounter. [facility] aPTT Coag (Bld) [Time] 112 s OS [facility] Interpretation and review of laboratory results Normal [facility] Test performed at address of the patient encounter. [facility] ARTERIAL BLOOD GAS PLUS LACT ATEon 03-10-2025 Base excess Calc (Bld) [Moles/Vol] -7.2000 mmol/L Low -3.0 - 3.0 mmol/L [facility] CO2 (Bld) [Partial pressure] 50 mm[Hg] [facility] HCO3 (Bld) [Moles/Vol] 21 mmol/L Low 22 - 28 mmol/L [facility] Inhaled oxygen concentration 60 % [facility] Interpretation and review of laboratory results Abnormal [facility] Lactate [Moles/Vol] 3.1 mmol/L High 0.5 - 1. 6 mmol/L [facility] Comment on above: Lactate results >/= 2.0 mmol/L should be followed up with a measurement 2 hours later for patients with suspicion of sepsis. Oxygen (Bld) [Partial pressure] 111 mm[Hg] High [facility] Oxygen saturation in Blood 99 % High 94 - 98 % [facility] PF Ratio 185 [facility] pH (Bld) 7.22 [pH] Low 7.35 - 7.45 [facility] Specimen source Nom (Unsp spec) Arterial [facility] Base Excess -7.2 mmol/L Low -3.0-3.0 [facility] Comment on above: Performed By: #### X M #### [facility] (DEFAULT) [address] [place] [address] FIO2 60 % Normal [facility] Comment on above: Performed By: #### X M #### [facility] (DEFAULT) [address] [place] [address] HCO3 (Bld) [Moles/Vol] 21 mmol/L Low 22-28 [facility] Comment on above: Performed By: #### X M #### [facility] (DEFAULT) [address] [place] [address] Lactate, Whole Blood 3.1 mmol/L High 0.5-1.6 [facility] Comment on above: Result Comment: Lact ate results >/= 2.0 mmol/L should be followed up with a measurement 2 hours later for patients with suspicion of sepsis. Performed By: #### X M #### [facility] (DEFAULT) [address] [place] [address] Oxygen saturation in Blood 99 % High 94-98 [facility] Comment on above: Performed By: #### X M #### [facility] (DEFAULT) [address] [place] [address] pCO2 50 mm Hg High 32-48 [facility] Comment on above: Performed By: #### X M #### [facility] (DEFAULT) [address] [place] [address] PF Ratio 185 Normal [facility] Comment on above: Performed By: #### X M #### [facility] (DEFAULT) [address] [place] [address] pH, Arterial 7.22 Low 7.35-7.45 [facility] Comment on above: Performed By: #### X M #### [facility] (DEFAULT) [address] [place] [address] pO2 111 mm Hg High 83-108 [facility] Comment on above: Performed By: #### X M #### [facility] (DEFAULT) [address] [place] [address] Specimen type Nom (Spec) Arterial Normal [facility] Comment on above: Performed By: #### X M #### [facility] (DEFAULT) [address] [place] [address] Base excess Calc (Bld) [Moles/Vol] -6.4000 mmol/L Low -3.0 - 3.0 mmol/L [facility] CO2 (Bld) [Partial pressure] 52 mm[Hg] High [facility] HCO3 (Bld) [Moles/Vol] 21 mmol/L Low 22 - 28 mmol/L [facility] Inhaled oxygen concentration 60 % [facility] Interpretation and review of laboratory results Abnormal [facility] Lactate [Moles/Vol] 2.9 mmol/L High 0.5 - 1. 6 mmol/L [facility] Comment on above: Lactate results >/= 2.0 mmol/L should be followed up with a measurement 2 hours later for patients with suspicion of sepsis. Oxygen (Bld) [Partial pressure] 89 mm[Hg] [facility] Oxygen saturation in Blood 98 % 94 - 98 % [facility] PF Ratio 148 [facility] pH (Bld) 7.22 [pH] Low 7.35 - 7.45 [facility] Specimen source Nom (Unsp spec) Arterial [facility] Base Excess -6.4 mmol/L Low -3.0-3.0 [facility] Comment on above: Order Comment: Colle ct first specimen at 30 minutes of arrival unit. Performed By: #### X M #### [facility] (DEFAULT) [address] [place] [address] FIO2 60 % Normal [facility] Comment on above: Order Comment: Colle ct first specimen at 30 minutes of arrival unit. Performed By: #### X M #### [facility] (DEFAULT) [address] [place] [address] HCO3 (Bld) [Moles/Vol] 21 mmol/L Low 22-28 [facility] Comment on above: Order Comment: Colle ct first specimen at 30 minutes of arrival unit. Performed By: #### X M #### [facility] (DEFAULT) [address] [place] [address] Lactate, Whole Blood 2.9 mmol/L High 0.5-1.6 [facility] Comment on above: Order Comment: Colle ct first specimen at 30 minutes of arrival unit. Result Comment: Lact ate results >/= 2.0 mmol/L should be followed up with a measurement 2 hours later for patients with suspicion of sepsis. Performed By: #### X M #### [facility] (DEFAULT) [address] [place] [address] Oxygen saturation in Blood 98 % Normal 94-98 [facility] Comment on above: Order Comment: Colle ct first specimen at 30 minutes of arrival unit. Performed By: #### X M #### [facility] (DEFAULT) [address] [place] [address] pCO2 52 mm Hg High 32-48 [facility] Comment on above: Order Comment: Colle ct first specimen at 30 minutes of arrival unit. Performed By: #### X M #### [facility] (DEFAULT) [address] [address] PF Ratio 148 Normal [facility] Comment on above: Order Comment: Colle ct first specimen at 30 minutes of arrival unit. Performed By: #### X M #### [facility] (DEFAULT) [address] [address] pH, Arterial 7.22 Low 7.35-7.45 [facility] Comment on above: Order Comment: Colle ct first specimen at 30 minutes of arrival unit. Performed By: #### X M #### [facility] (DEFAULT) [address] [place] [address] pO2 89 mm Hg Normal 83-108 [facility] Comment on above: Order Comment: Colle ct first specimen at 30 minutes of arrival unit. Performed By: #### X M #### [facility] (DEFAULT) [address] [address] Specimen type Nom (Spec) Arterial Normal [facility] Comment on above: Order Comment: Colle ct first specimen at 30 minutes of arrival unit. Performed By: #### X M #### [facility] (DEFAULT) [address] [address] JL AURIS SCREEN BY PCRo n 03-10-2025 Jl auris Screen by PCR Not detected Normal Not Detected [facility] Comment on above: Order Comment: This test was performed using a real-time PCR assay. This test was developed, and its performance characteristics determined by [facility]. It has not been cleared or approved by the FDA. The laboratory is regulated under CLIA as qualified to perform high-complexity testing. This test is used for clinical purposes. It should not be regarded as investigational or for research. Performed By: #### C ANDIDA AURIS SCREEN BY PCR #### [facility] (DEFAULT) [address] [place] [address] CBC,PLATELETSon 03-10-2025 Erythrocyte distribution width (RBC) [Ratio] 13.2 % 10.9 - 14.3 % [facility] Hematocrit (Bld) [Volume fraction] 40.5 % 39.6 - 48.8 % [facility] Hemoglobin (Bld) [Mass/Vol] 13.5 g/dL 13.4 - 16.8 g/dL [facility] Interpretation and review of laboratory results Abnormal [facility] MCH (RBC) [Entitic mass] 30.5 pg 26.1 - 33.3 pg [facility] MCHC (RBC) [Mass/Vol] 33.3 g/dL 31.9 - 36.5 g/dL [facility] MCV (RBC) [Entitic vol] 91.6 fL 79.0 - 94.5 fL [facility] Platelet mean volume (Bld) [Entitic vol] 8.7 fL 8.7 - 12.3 fL [facility] Platelets (Bld) [#/Vol] 230 10*3/uL 146 - 337 K/uL [facility] RBC (Bld) [#/Vol] 4.42 10*6/uL [facility] WBC (Bld) [#/Vol] 31.82 10*3/uL High 3.73 - 10.10 K/uL [facility] Hematocrit (Bld) [Volume fraction] 40.5 % Normal 39.6-48.8 [facility] Comment on above: Performed By: #### I CA #### [facility] (DEFAULT) [address] [address] Hemoglobin (Bld) [Mass/Vol] 13.5 g/dL Normal 13.4-16.8 [facility] Comment on above: Performed By: #### I CA #### [facility] (DEFAULT) [address] [address] MCV (RBC) [Entitic vol] 91.6 fL Normal 79.0-94.5 O [facility] Comment on above: Performed By: #### I CA #### [facility] (DEFAULT) [address] [place] [address] Mean Cell Hgb 30.5 pg Normal 26.1-33.3 [facility] Comment on above: Performed By: #### I CA #### [facility] (DEFAULT) [address] [place] [address] Mean Cell Hgb Conc 33.3 g/dL Normal 31.9-36.5 [facility] Comment on above: Performed By: #### I CA #### [facility] (DEFAULT) [address] [place] [address] Platelet mean volume (Bld) [Entitic vol] 8.7 fL Normal 8.7-12.3 [facility] Comment on above: Performed By: #### I CA #### [facility] (DEFAULT) [address] [place] [address] Platelets (Bld) [#/Vol] 230 10*3/uL Normal 146-337 [facility] Comment on above: Performed By: #### I CA #### [facility] (DEFAULT) [address] [place] [address] RBC (Bld) [#/Vol] 4.42 10*6/uL Normal 4.38-5.83 [facility] Comment on above: Performed By: #### I CA #### [facility] (DEFAULT) [address] [place] [address] RBC Distribution 13.2 % Normal 10.9-14.3 [facility] Comment on above: Performed By: #### I CA #### [facility] (DEFAULT) [address] [place] [address] WBC (Bld) [#/Vol] 31.82 10*3/uL High 3.73-10.10 [facility] Comment on above: Performed By: #### I CA #### [facility] (DEFAULT) [address] [place] [address] CHEM 7 (LYTES,BUN,CREA,GLUC) on 03-10-2025 Anion gap [Moles/Vol] 16 mmol/L 7 - 17 mmol/L [facility] Chloride [Moles/Vol] 108 mmol/L 98 - 10 8 mmol/L [facility] CO2 [Moles/Vol] 22 mmol/L 21 - 31 mmol/L [facility] Creatinine [Mass/Vol] 1.3 mg/dL 0.70 - 1.30 mg/dL [facility] eGFR, CKD-EPI, Male 60 - PINF [facility] Comment on above: Reported eGFR is bas ed on the CKD-EPI 2020 equation using creatinine, age, and sex. Glucose [Mass/Vol] 164 mg/dL 70 - 179 mg/dL [facility] Osmolality Calc [Osmolality] 301 [facility] Potassium [Moles/Vol] 4.6 mmol/L 3.5 - 5.0 mmol/L [facility] Sodium [Moles/Vol] 141 mmol/L 135 - 145 mmol/L [facility] Urea nitrogen [Mass/Vol] 17 mg/dL 7 - 25 mg/dL [facility] Urea nitrogen/Creatinine [Mass ratio] 13 mg/mg [facility] Anion gap [Moles/Vol] 16 mmol/L Normal 7-17 [facility] Comment on above: Performed By: #### X M #### [facility] (DEFAULT) [address] [place] [address] Chloride [Moles/Vol] 108 mmol/L Normal 98-108 [facility] Comment on above: Performed By: #### X M #### [facility] (DEFAULT) [address] [place] [address] CO2 [Moles/Vol] 22 mmol/L Normal 21-31 [facility] Comment on above: Performed By: #### X M #### [facility] (DEFAULT) [address] [place] [address] Creatinine [Mass/Vol] 1.30 mg/dL Normal 0.70-1.30 [facility] Comment on above: Performed By: #### X M #### [facility] (DEFAULT) [address] [place] [address]2014 GFR/1.73 sq M.predicted among non-blacks MDRD (S/P/Bld) [Vol rate/Area] 60 mL/min/{1.73_m2} Normal >=60 [facility] Comment on above: Result Comment: Repo rted eGFR is based on the CKD-EPI 2020 equation using creatinine, age, and sex. Performed By: #### X M #### [facility] (DEFAULT) [address] [place] [address]671 Glucose [Mass/Vol] 164 mg/dL Normal Nonfastin -179 mg/dL; Fastin-99 [facility] Comment on above: Performed By: #### X M #### [facility] (DEFAULT) [address] [place] [address] 75946 Osmolality [Osmolality] 301 mosm/kg Normal 278-305 [facility] Comment on above: Performed By: #### X M #### [facility] (DEFAULT) [address] [address] Potassium [Moles/Vol] 4.6 mmol/L Normal 3.5-5.0 [facility] Comment on above: Performed By: #### X M #### [facility] (DEFAULT) [address] [place] [address] 63786 Sodium [Moles/Vol] 141 mmol/L Normal 135-145 [facility] Comment on above: Performed By: #### X M #### [facility] (DEFAULT) [address] [address] Urea nitrogen [Mass/Vol] 17 mg/dL Normal 7-25 [facility] Comment on above: Performed By: #### X M #### [facility] (DEFAULT) [address] [place] [address] 43368 Urea nitrogen/Creatinine [Mass ratio] 13 mg/mg Normal [facility] Comment on above: Performed By: #### X M #### [facility] (DEFAULT) [address] [place] [address]858 FIBRINOGEN, CLOTTABLEon 07-0 Fibrinogen Coag (PPP) [Mass/Vol] 333 mg/dL 220 - 410 mg/dL [facility] Comment on above: Functional Fibrinoge n (activity) levels can be affected by direct thrombin inhibitors such as heparins (>2.0 IU/ml) and dabigatran. Abnormal results should be interpreted with caution. Interpretation and review of laboratory results Normal [facility] Fibrinogen-Clottable 333 mg/dL Normal 220-410 [facility] Comment on above: Result Comment: Func tional Fibrinogen (activity) levels can be affected by direct thrombin inhibitors such as heparins (>2.0 IU/ml) and dabigatran. Abnormal results should be interpreted with caution. Performed By: #### F IB, PTPTT #### [facility] (DEFAULT) [address] [address] GLUCOSE POCon 03-10-2025 Glucose [Mass/Vol] 161 mg/dL 70 - 179 mg/dL [facility] POC Sample Type ARTER [facility] Test performed at address of the patient encounter. [facility] Glucose [Mass/Vol] 168 mg/dL 70 - 179 mg/dL [facility] POC Sample Type ARTER [facility] Test performed at address of the patient encounter. [facility] Glucose [Mass/Vol] 108 mg/dL 70 - 179 mg/dL [facility] POC Sample Type CAPBL [facility] Test performed at address of the patient encounter. [facility] IONIZED CALCIUM, WHOLE BLOOD Ordered By: Glenny Hyde on 03-10-2025 Calcium.ionized (Bld) [Moles/Vol] 4.72 mg/dL 4.60 - 5.30 mg/dL [facility] Interpretation and review of laboratory results Normal [facility] IONIZED CALCIUM, WHOLE BLOOD on 03-10-2025 ICA 4.72 mg/dL Normal 4.60-5.30 [facility] Comment on above: Performed By: #### I CA #### [facility] (DEFAULT) [address] [place] [address] MAGNESIUMon 03-10-2025 Interpretation and review of laboratory results Abnormal [facility] Magnesium [Mass/Vol] 2.8 mg/dL High 1.6 - 2 .6 mg/dL [facility] Magnesium [Mass/Vol] 2.8 mg/dL High 1.6-2.6 [facility] Comment on above: Performed By: #### X M #### [facility] (DEFAULT) [address] [address] No Panel Informationon 03-10 [facility] ABO/RH(D) TYPE Positive [facility] BLOOD COMPONENT TYPE Red Cells, Leukoreduced [facility] EXPIRATION DATE [id number] [facility] Product ABO/RH(D) Positive [facility] Product ABO/RH(D) NUMBER [id number] [facility] PRODUCT CODE [id number] [facility] UNIT STATUS released [facility] PHOSPHATE, INORGANICon 03-10 Interpretation and review of laboratory results Normal [facility] Phosphate [Mass/Vol] 3.8 mg/dL 2.2 - 4 .6 mg/dL [facility] Phosphorous 3.8 mg/dL Normal 2.2-4.6 [facility] Comment on above: Performed By: #### X M #### [facility] (DEFAULT) [address] [place] [address] POC ARTERIAL BLOOD GASon Base excess Calc (Bld) [Moles/Vol] -2.7000 mmol/L -3.0 - 3.0 mmol/L [facility] Calcium.ionized (Bld) [Mass/Vol] 5.19 mg/dL 4.60 - 5.30 mg/dL [facility] CO2 (Bld) [Partial pressure] 61 mm[Hg] High [facility] Glucose [Mass/Vol] 133 mg/dL 70 - 179 mg/dL [facility] HCO3 (Bld) [Moles/Vol] 25 mmol/L 22 - 28 mmol/L [facility] Hematocrit (Bld) [Volume fraction] 38 % Low 40 - 50 % [facility] Hemoglobin (Bld) [Mass/Vol] 12.8 g/dL Low 13.4 - 16.8 g/dL [facility] Interpretation and review of laboratory results Abnormal [facility] Lactate [Moles/Vol] 1.5 mmol/L 0.5 - 1. 6 mmol/L [facility] Oxygen (Bld) [Partial pressure] 227 mm[Hg] High [facility] Oxygen saturation in Blood 100 % High 94 - 98 % [facility] pH (Bld) 7.22 [pH] Low 7.35 - 7.45 [facility] Potassium [Moles/Vol] 5.2 mmol/L High 3.5 - 5.0 mmol/L [facility] Sodium [Moles/Vol] 134 mmol/L Low 135 - 145 mmol/L [facility] Specimen source Nom (Unsp spec) Arterial [facility] Test performed at address of the patient encounter. [facility] Base excess Calc (Bld) [Moles/Vol] -1.6000 mmol/L -3.0 - 3.0 mmol/L [facility] Calcium.ionized (Bld) [Mass/Vol] 4.38 mg/dL Low 4.60 - 5.30 mg/dL [facility] CO2 (Bld) [Partial pressure] 49 mm[Hg] High [facility] Glucose [Mass/Vol] 147 mg/dL 70 - 179 mg/dL [facility] HCO3 (Bld) [Moles/Vol] 25 mmol/L 22 - 28 mmol/L [facility] Hematocrit (Bld) [Volume fraction] 37 % Low 40 - 50 % [facility] Hemoglobin (Bld) [Mass/Vol] 12.2 g/dL Low 13.4 - 16.8 g/dL [facility] Interpretation and review of laboratory results Abnormal [facility] Lactate [Moles/Vol] 1.2 mmol/L 0.5 - 1. 6 mmol/L [facility] Oxygen (Bld) [Partial pressure] 262 mm[Hg] High [facility] Oxygen saturation in Blood 100 % High 94 - 98 % [facility] pH (Bld) 7.31 [pH] Low 7.35 - 7.45 [facility] Potassium [Moles/Vol] 6.3 mmol/L Critically high 3.5 - 5.0 mmol/L [facility] Sodium [Moles/Vol] 136 mmol/L 135 - 145 mmol/L [facility] Specimen source Nom (Unsp spec) Arterial [facility] Test performed at address of the patient encounter. [facility] Base excess Calc (Bld) [Moles/Vol] -2.1000 mmol/L -3.0 - 3.0 mmol/L [facility] Calcium.ionized (Bld) [Mass/Vol] 4.34 mg/dL Low 4.60 - 5.30 mg/dL [facility] CO2 (Bld) [Partial pressure] 48 mm[Hg] [facility] Glucose [Mass/Vol] 132 mg/dL 70 - 179 mg/dL [facility] HCO3 (Bld) [Moles/Vol] 24 mmol/L 22 - 28 mmol/L [facility] Hematocrit (Bld) [Volume fraction] 37 % Low 40 - 50 % [facility] Hemoglobin (Bld) [Mass/Vol] 12.3 g/dL Low 13.4 - 16.8 g/dL [facility] Interpretation and review of laboratory results Abnormal [facility] Lactate [Moles/Vol] 0.9 mmol/L 0.5 - 1. 6 mmol/L [facility] Oxygen (Bld) [Partial pressure] 250 mm[Hg] High [facility] Oxygen saturation in Blood 100 % High 94 - 98 % [facility] pH (Bld) 7.31 [pH] Low 7.35 - 7.45 [facility] Potassium [Moles/Vol] 5.6 mmol/L High 3.5 - 5.0 mmol/L [facility] Sodium [Moles/Vol] 136 mmol/L 135 - 145 mmol/L [facility] Specimen source Nom (Unsp spec) Arterial [facility] Test performed at address of the patient encounter. [facility] Base excess Calc (Bld) [Moles/Vol] -0.3000 mmol/L -3.0 - 3.0 mmol/L [facility] Calcium.ionized (Bld) [Mass/Vol] 4.22 mg/dL Low 4.60 - 5.30 mg/dL [facility] CO2 (Bld) [Partial pressure] 53 mm[Hg] High [facility] Glucose [Mass/Vol] 121 mg/dL 70 - 179 mg/dL [facility] HCO3 (Bld) [Moles/Vol] 26 mmol/L 22 - 28 mmol/L [facility] Hematocrit (Bld) [Volume fraction] 37 % Low 40 - 50 % [facility] Hemoglobin (Bld) [Mass/Vol] 12.2 g/dL Low 13.4 - 16.8 g/dL [facility] Interpretation and review of laboratory results Abnormal [facility] Lactate [Moles/Vol] 0.7 mmol/L 0.5 - 1. 6 mmol/L [facility] Oxygen (Bld) [Partial pressure] 329 mm[Hg] High [facility] Oxygen saturation in Blood 100 % High 94 - 98 % [facility] pH (Bld) 7.3 [pH] Low 7.35 - 7.45 [facility] Potassium [Moles/Vol] 4.9 mmol/L 3.5 - 5.0 mmol/L [facility] Sodium [Moles/Vol] 136 mmol/L 135 - 145 mmol/L [facility] Specimen source Nom (Unsp spec) Arterial [facility] Test performed at address of the patient encounter. [facility] Base excess Calc (Bld) [Moles/Vol] -2.1000 mmol/L -3.0 - 3.0 mmol/L [facility] Calcium.ionized (Bld) [Mass/Vol] 4.47 mg/dL Low 4.60 - 5.30 mg/dL [facility] CO2 (Bld) [Partial pressure] 51 mm[Hg] High [facility] Glucose [Mass/Vol] 91 mg/dL 70 - 179 mg/dL [facility] HCO3 (Bld) [Moles/Vol] 24 mmol/L 22 - 28 mmol/L [facility] Hematocrit (Bld) [Volume fraction] 46 % 40 - 50 % [facility] Hemoglobin (Bld) [Mass/Vol] 15.2 g/dL 13.4 - 16.8 g/dL [facility] Interpretation and review of laboratory results Abnormal [facility] Lactate [Moles/Vol] 0.6 mmol/L 0.5 - 1. 6 mmol/L [facility] Oxygen (Bld) [Partial pressure] 176 mm[Hg] High [facility] Oxygen saturation in Blood 100 % High 94 - 98 % [facility] pH (Bld) 7.29 [pH] Low 7.35 - 7.45 [facility] Potassium [Moles/Vol] 4.2 mmol/L 3.5 - 5.0 mmol/L [facility] Sodium [Moles/Vol] 136 mmol/L 135 - 145 mmol/L [facility] Specimen source Nom (Unsp spec) Arterial [facility] Test performed at address of the patient encounter. [facility] PREPARE TO TRANSFUSE OR RED BLOOD CELLSon 03-10-2025 UNIT NUMBER [id number] [facility] UNIT NUMBER [id number] [facility] PT,INR,PTTon 03-10-2025 aPTT Coag (PPP) [Time] 26.4 s OS [facility] INR Coag (Bld) [Relative time] 1.2 {INR} High 0.9 - 1.1 [facility] Interpretation and review of laboratory results Abnormal [facility] PT Coag (PPP) [Time] 15.2 s High [facility] aPTT Coag (Bld) [Time] 26.4 s Normal 24.0-34.3 [facility] Comment on above: Performed By: #### F IB, PTPTT #### [facility] (DEFAULT) [address] [place] [address] INR Coag (PPP) [Relative time] 1.2 {INR} High 0.9-1.1 [facility] Comment on above: Performed By: #### F IB, PTPTT #### [facility] (DEFAULT) [address] [place] [address] PT Coag (PPP) [Time] 15.2 s High 11.9-14.2 [facility] Comment on above: Performed By: #### F IB, PTPTT #### [facility] (DEFAULT) [address] [place] [address] Portable XR Chest Viewson IMPRESSION: 1. Shallow lung volumes. 2. Lines and tubes in appropriate position as described. OLOGY EXAM: XR CHEST 1 VIE W PORTABLE, 03/10/2025 20:53 PM COMPARISON: No prior studies available for comparison. CLINICAL INDICATIONS: postop heart surgery RELEVANT CLINICAL HISTORY: On arrival to unit.; FINDINGS: (Adequate technique) Implanted Devices: The patient is status post median sternotomy and CABG. The endotracheal tube tip is approximately 3.7 cm from the farzaneh. The feeding tube extends into the stomach. The tip is within the body of the stomach. Right jugular approach central venous catheter tip within the proximal/superior aspect of the right atrium. Left shoulder prosthesis. Thorax: Shallow lung volumes. No pleural effusions. No pneumothorax. RADIOLOGY Abbi Irene MD - 03/10/2025 EXAM: XR CHEST 1 VIEW PORTABLE, 03/10/2025 20:53 PM COMPARISON: No prior studies available for comparison. CLINICAL INDICATIONS: postop heart surgery RELEVANT CLINICAL HISTORY: On arrival to unit.; FINDINGS: (Adequate technique) Implanted Devices: The patient is status post median sternotomy and CABG. The endotracheal tube tip is approximately 3.7 cm from the farzaneh. The feeding tube extends into the stomach. The tip is within the body of the stomach. Right jugular approach central venous catheter tip within the proximal/superior aspect of the right atrium. Left shoulder prosthesis. Thorax: Shallow lung volumes. No pleural effusions. No pneumothorax. IMPRESSION IMPRESSION: 1. Shallow lung volumes. 2. Lines and tubes in appropriate position as described. [facility] Radiology Study observation (narrative) [facility] Portable XR Chest ViewsOrder ed By: Abbi Irene on 03-10-2025 [facility] Work Phone: SURG PATH REQUESTon 03-10-20 Case Report Normal [facility] Comment on above: Result Comment: Surg ical Pathology Report Case: [id number] Authorizing Provider: Bony Garcia MD, PhD Collected: 03/10/2025 05:18 PM Ordering Location: [place] PERIOP Received: 03/11/2025 12:53 PM Pathologist: Simeon Joaquin MD Specimen: SURG PATH, Left atrial appendage Performed By: #### S URGP #### [facility] [address] [place] [address] Clinical History 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 Medical History: Arthritis. Hyperlipidemia. Coronary artery disease. Gastroesophageal reflux disease. Myocardial infarction. Diverticulitis. Congestive heart failure. Cardiac angina. Normal [facility] Comment on above: Performed By: #### S URGP #### [facility] (DEFAULT) [address] [address] Diagnosis Comments Congo red stain (performed per protocol) is negative for amyloid. Normal [facility] Comment on above: Performed By: #### S URGP #### [facility] (DEFAULT) [address] [place] [address] Gross Description Normal [facility] Comment on above: Result Comment: The specimen is received in one properly labeled container with the patient's name and accession number. A. The specimen is designated "left atrial appendage" and consists of a 2.8 x 2.4 x 1.8 cm atrial appendage. The epicardial surface is minimally mendez-brown with focal mendez-white fibrotic areas and diffusely covered with mendez-yellow adipose tissue. The staple line is removed with the underlying margin inked blue. The specimen is serially sectioned to reveal a 1.3 x 0.9 x 0.8 cm area of clotted blood abutting the resection margin. The remaining cut surface is mendez-white to mendez-brown. RS 1 Cassettes: A1, accounting representative section of atrial appendage to include area of clotted blood Lab Use Only: JobID [id number] Grosser for this case was: Ro Ace Performed By: #### S URGP #### [facility] (DEFAULT) [address] [place] [address] Microscopic Description Normal [facility] Comment on above: Result Comment: A mi croscopic examination was performed. All controls show appropriate reactivity. All immunohistochemistry (IHC), in situ hybridization (VEL), and histochemical tests were developed by and are performed at the [facility], Histology and IHC Lab, [address] [place] [address]. All Immunofluorescent (IF) tests were developed by and are performed at the [facility], Renal Division, [address] [place] [address]. All tests reported here, except for PD-L1, have not been cleared by or approved by the [place] Food and Drug Administration (FDA). The laboratory is regulated under CLIA as qualified to perform high-complexity testing. The tests are used for clinical purposes. They should not be regarded as investigational or for research. Performed By: #### S URGP #### [facility] (DEFAULT) [address] [address] Pathologic Diagnosis [facility] Comment on above: Result Comment: A. A trial appendage, left, excision: Atrial tissue with subendocardial fibrosis, and myocyte hyperplasia. at 1537 EDT Performed By: #### S URGP #### [facility] (DEFAULT) [address] [address] Professional Interpretation Performed at: [facility] Comment on above: Result Comment: [facility] For Immediate Release [facility] Yes [address] [place] [address] Performed By: #### S URGP #### [facility] (DEFAULT) [address] [address] XR ABDOMEN 1 VIEW PORTABLEon 03-10-2025 XR ABDOMEN 1 VIEW PORTABLE EXAM: XR ABDOMEN 1 VIEW PORTABLE, 03/10/2025 20:54 PM COMPARISON: No prior studies available for comparison. CLINICAL INDICATIONS: post operative heart surgery Upon arrival to unit; FINDINGS: Tubes: NG/OG tube is better seen on the concurrent chest radiograph with sidehole at the GE junction. A More catheter projects over the pelvis. Bowel gas pattern: Mild gaseous distention of central small bowel loops in a pattern suggesting ileus. No visible free air. Abnormal calcifications/Radiopac ities: None Bones: Right hip arthroplasty Other findings: None. IMPRESSION: Enteric tube with sidehole at the GE junction. Recommend advancement approximately 5 cm. Mild gaseous distention of central small bowel loops in a pattern suggesting ileus. [facility] XR Abdomen Single viewon IMPRESSION: Enteric tube with sidehole at the GE junction. Recommend advancement approximately 5 cm. Mild gaseous distention of central small bowel loops in a pattern suggesting ileus. OLOGY EXAM: XR ABDOMEN 1 V IEW PORTABLE, 03/10/2025 20:54 PM COMPARISON: No prior studies available for comparison. CLINICAL INDICATIONS: post operative heart surgery Upon arrival to unit; FINDINGS: Tubes: NG/OG tube is better seen on the concurrent chest radiograph with sidehole at the GE junction. A More catheter projects over the pelvis. Bowel gas pattern: Mild gaseous distention of central small bowel loops in a pattern suggesting ileus. No visible free air. Abnormal calcifications/Radiopac ities: None Bones: Right hip arthroplasty Other findings: None. RADIOLOGY Mohit Perez MD - 03/10/2025 EXAM: XR ABDOMEN 1 VIEW PORTABLE, 03/10/2025 20:54 PM COMPARISON: No prior studies available for comparison. CLINICAL INDICATIONS: post operative heart surgery Upon arrival to unit; FINDINGS: Tubes: NG/OG tube is better seen on the concurrent chest radiograph with sidehole at the GE junction. A More catheter projects over the pelvis. Bowel gas pattern: Mild gaseous distention of central small bowel loops in a pattern suggesting ileus. No visible free air. Abnormal calcifications/Radiopac ities: None Bones: Right hip arthroplasty Other findings: None. IMPRESSION IMPRESSION: Enteric tube with sidehole at the GE junction. Recommend advancement approximately 5 cm. Mild gaseous distention of central small bowel loops in a pattern suggesting ileus. [facility] Radiology Study observation (narrative) [facility] XR Abdomen Single viewOrdere d By: Mohit Perez on 03-10-2025 [facility] Work Phone: XR CHEST 1 VIEW PORTABLEon 0 03-10-2025 XR CHEST 1 VIEW PORTABLE EXAM: XR CHEST 1 VIEW PORTABLE, 03/10/2025 20:53 PM COMPARISON: No prior studies available for comparison. CLINICAL INDICATIONS: postop heart surgery RELEVANT CLINICAL HISTORY: On arrival to unit.; FINDINGS: (Adequate technique) Implanted Devices: The patient is status post median sternotomy and CABG. The endotracheal tube tip is approximately 3.7 cm from the farzaneh. The feeding tube extends into the stomach. The tip is within the body of the stomach. Right jugular approach central venous catheter tip within the proximal/superior aspect of the right atrium. Left shoulder prosthesis. Thorax: Shallow lung volumes. No pleural effusions. No pneumothorax. IMPRESSION: 1. Shallow lung volumes. 2. Lines and tubes in appropriate position as described. Normal [facility] CALCIUMon 03-08-2025 Calcium [Mass/Vol] 9.4 mg/dL Normal 8.6-10.5 [facility] Comment on above: Performed By: #### F IB, PTPTT #### [facility] (DEFAULT) [address] [place] [address] CBC AND ELECTRONIC DIFFon Basophils (Bld) [#/Vol] 0.10 10*3/uL High 0.00-0.09 [facility] Comment on above: Performed By: #### F IB, PTPTT #### [facility] (DEFAULT) [address] [place] [address]400 Basophils/100 WBC (Bld) 0.8 % Normal [facility] Comment on above: Performed By: #### F IB, PTPTT #### [facility] (DEFAULT) [address] [place] [address] DIFF STATUS Electronic Differential Normal [facility] Comment on above: Performed By: #### F IB, PTPTT #### [facility] (DEFAULT) [address] [place] [address] Eosinophils (Bld) [#/Vol] 0.72 10*3/uL High 0.00-0.48 [facility] Comment on above: Performed By: #### F IB, PTPTT #### [facility] (DEFAULT) [address] [place] [address] Eosinophils/100 WBC (Bld) 6.1 % Normal [facility] Comment on above: Performed By: #### F IB, PTPTT #### [facility] (DEFAULT) [address] [place] [address] Hematocrit (Bld) [Volume fraction] 47.6 % Normal 39.6-48.8 [facility] Comment on above: Performed By: #### F IB, PTPTT #### [facility] (DEFAULT) [address] [place] [address] Hemoglobin (Bld) [Mass/Vol] 15.8 g/dL Normal 13.4-16.8 [facility] Comment on above: Performed By: #### F IB, PTPTT #### [facility] (DEFAULT) [address] [address] Immature Grans % 0.8 % Normal [facility] Comment on above: Performed By: #### F IB, PTPTT #### [facility] (DEFAULT) [address] [place] [address] Immature Grans Absolute 0.10 K/uL High <=0.07 [facility] Comment on above: Performed By: #### F IB, PTPTT #### [facility] (DEFAULT) [address] [place] [address] 247[address] Lymphocytes (Bld) [#/Vol] 2.34 10*3/uL Normal 0.83-3.57 [facility] Comment on above: Performed By: #### F IB, PTPTT #### [facility] (DEFAULT) [address] [place] [address]5529 Lymphocytes/100 WBC (Bld) 19.7 % Normal [facility] Comment on above: Performed By: #### F IB, PTPTT #### [facility] (DEFAULT) [address] [address] MCV (RBC) [Entitic vol] 89.8 fL Normal 79.0-94.5 [facility] Comment on above: Performed By: #### F IB, PTPTT #### [facility] (DEFAULT) [address] [place] [address] Mean Cell Hgb 29.8 pg Normal 26.1-33.3 [facility] Comment on above: Performed By: #### F IB, PTPTT #### [facility] (DEFAULT) [address] [place] [address] 86079 Mean Cell Hgb Conc 33.2 g/dL Normal 31.9-36.5 [facility] Comment on above: Performed By: #### F IB, PTPTT #### [facility] (DEFAULT) [address] [place] [address] Monocytes (Bld) [#/Vol] 1.05 10*3/uL High 0.24-0.93 [facility] Comment on above: Performed By: #### F IB, PTPTT #### [facility] (DEFAULT) [address] [place] [address]3368 Monocytes/100 WBC (Bld) 8.8 % Normal [facility] Comment on above: Performed By: #### F IB, PTPTT #### [facility] (DEFAULT) [address] [place] [address] 53711 Nucleated RBC 0.0 /100 WBC Normal <=0.2 [facility] Comment on above: Performed By: #### F IB, PTPTT #### [facility] (DEFAULT) [address] [place] [address]484 Platelet mean volume (Bld) [Entitic vol] 8.7 fL Normal 8.7-12.3 [facility] Comment on above: Performed By: #### F IB, PTPTT #### [facility] (DEFAULT) [address] [place] [address] 74172 Platelets (Bld) [#/Vol] 254 10*3/uL Normal 146-337 [facility] Comment on above: Performed By: #### F IB, PTPTT #### [facility] (DEFAULT) [address] [place] [address] 11391 RBC (Bld) [#/Vol] 5.30 10*6/uL Normal 4.38-5.83 [facility] Comment on above: Performed By: #### F IB, PTPTT #### [facility] (DEFAULT) [address] [place] [address] 88202 RBC Distribution 13.0 % Normal 10.9-14.3 [facility] Comment on above: Performed By: #### F IB, PTPTT #### [facility] (DEFAULT) [address] [place] [address] 05493 Segs + Bands Auto 63.8 % Normal [place] [facility] Comment on above: Performed By: #### F IB, PTPTT #### [facility] (DEFAULT) [address] [place] [address] 03653 Segs + Bands,Absolute Auto 7.59 K/uL High 1.57-6.19 [facility] Comment on above: Performed By: #### F IB, PTPTT #### [facility] (DEFAULT) [address] [place] [address] 88096 WBC (Bld) [#/Vol] 11.90 10*3/uL High 3.73-10.10 [facility] Comment on above: Performed By: #### F IB, PTPTT #### [facility] (DEFAULT) [address] [place] [address] 94882 CHEM 7 (LYTES,BUN,CREA,GLUC) on 03-08-2025 Anion gap [Moles/Vol] 13 mmol/L Normal 7-17 [facility] Comment on above: Performed By: #### F IB, PTPTT #### [facility] (DEFAULT) [address] [place] [address] 59268 Chloride [Moles/Vol] 103 mmol/L Normal 98-108 [facility] Comment on above: Performed By: #### F IB, PTPTT #### [facility] (DEFAULT) [address] [place] [address] 72348 CO2 [Moles/Vol] 28 mmol/L Normal 21-31 [facility] Comment on above: Performed By: #### F IB, PTPTT #### [facility] (DEFAULT) [address] [place] [address] 17460 Creatinine [Mass/Vol] 1.03 mg/dL Normal 0.70-1.30 [facility] Comment on above: Performed By: #### F IB, PTPTT #### [facility] (DEFAULT) [address] [place] [address] 89051 GFR/1.73 sq M.predicted among non-blacks MDRD (S/P/Bld) [Vol rate/Area] 80 mL/min/{1.73_m2} Normal >=60 [facility] Comment on above: Result Comment: Repo rted eGFR is based on the CKD-EPI 2020 equation using creatinine, age, and sex. Performed By: #### F IB, PTPTT #### Adriana [facility] (DEFAULT) [address] [place] [address] 08031 Glucose [Mass/Vol] 76 mg/dL Normal Nonfastin -179 mg/dL; Fastin-99 [facility] Comment on above: Performed By: #### F IB, PTPTT #### [facility] (DEFAULT) [address] [place] [address] 23686 Osmolality [Osmolality] 292 mosm/kg Normal 278-305 [facility] Comment on above: Performed By: #### F IB, PTPTT #### [facility] (DEFAULT) [address] [place] [address] 38915 Potassium [Moles/Vol] 4.5 mmol/L Normal 3.5-5.0 [facility] Comment on above: Performed By: #### F IB, PTPTT #### [facility] (DEFAULT) [address] [place] [address] 94751 Sodium [Moles/Vol] 139 mmol/L Normal 135-145 [facility] Comment on above: Performed By: #### F IB, PTPTT #### [facility] (DEFAULT) [address] [place] [address] Urea nitrogen [Mass/Vol] 17 mg/dL Normal 7-25 [facility] Comment on above: Performed By: #### F IB, PTPTT #### [facility] (DEFAULT) [address] [place] [address] Urea nitrogen/Creatinine [Mass ratio] 17 mg/mg Normal [facility] Comment on above: Performed By: #### F IB, PTPTT #### [facility] (DEFAULT) [address] [place] [address] 97583 FIBRINOGEN, CLOTTABLEon 07-0 Fibrinogen-Clottable 459 mg/dL High 220-410 [facility] Comment on above: Result Comment: Func tional Fibrinogen (activity) levels can be affected by direct thrombin inhibitors such as heparins (>2.0 IU/ml) and dabigatran. Abnormal results should be interpreted with caution. Performed By: #### X M #### [facility] (DEFAULT) [address] [place] [address] 33212 HEMOGLOBIN A1Con 03-08-2025 Glucose [Mass/Vol] 103 mg/dL Normal [facility] Comment on above: Performed By: #### A 1CB ####[facility] (DEFAULT)[address] [place] [address] 46237 Hemoglobin A1C HPLC 5.2 % Normal 4.7-5.6 [facility] Comment on above: Performed By: #### A 1CB ####[facility] (DEFAULT)[address] [place] [address] 27445 HEPATIC FUNCTION PANELon Albumin [Mass/Vol] 4.2 g/dL Normal 3.5-5.0 [facility] Comment on above: Performed By: #### F IB, PTPTT #### [facility] (DEFAULT) [address] [place] [address] 72257 ALP [Catalytic activity/Vol] 69 U/L Normal 32-126 [facility] Comment on above: Performed By: #### F IB, PTPTT #### [facility] (DEFAULT) [address] [place] [address] 72514 ALT [Catalytic activity/Vol] 21 U/L Normal 10-52 [facility] Comment on above: Performed By: #### F IB, PTPTT #### [facility] (DEFAULT) [address] [place] [address] 02079 AST [Catalytic activity/Vol] 21 U/L Normal 10-39 [facility] Comment on above: Performed By: #### F IB, PTPTT #### [facility] (DEFAULT) [address] [place] [address] 37166 Bilirubin [Mass/Vol] 0.5 mg/dL Normal <1.5 [facility] Comment on above: Performed By: #### F IB, PTPTT #### [facility] (DEFAULT) [address] [place] [address] 21140 Bilirubin.indirect [Mass/Vol] 0.1 mg/dL Normal <0.3 [facility] Comment on above: Performed By: #### F IB, PTPTT #### [facility] (DEFAULT) [address] [place] [address] 09524 Protein [Mass/Vol] 6.9 g/dL Normal 6.4-8.3 [facility] Comment on above: Performed By: #### F IB, PTPTT #### [facility] (DEFAULT) [address] [place] [address] 58137 LIPID PANEL W CALCULATED LDL on 03-08-2025 Calculated LDL Cholesterol 98 mg/dL Normal 0-99 [facility] Comment on above: Result Comment: [<10 0 mg/dL: Optimal] [100-129 mg/dL: Near Optimal] [130-159 mg/dL: Borderline High] [160-189 mg/dL: High] [>189 mg/dL: Very High] Performed By: #### F IB, PTPTT #### [facility] (DEFAULT) [address] [place] [address] 99193 Cholesterol [Mass/Vol] 213 mg/dL High <200 [facility] Comment on above: Result Comment: [<20 0 mg/dL: Desirable] [200-239 mg/dL: Borderline High] [>239 mg/dL: High] Performed By: #### F IB, PTPTT #### [facility] (DEFAULT) [address] [place] [address] 56684 Cholesterol in HDL [Mass/Vol] 37 mg/dL Low >=40 [facility] Comment on above: Result Comment: [<40 mg/dL: Low (High Risk)] [>59 mg/dL: High (Low Risk)] Performed By: #### F IB, PTPTT #### [facility] (DEFAULT) [address] [place] [address] 43873 Non HDL Cholesterol 176 mg/dL High <130 [facility] Comment on above: Performed By: #### F IB, PTPTT #### [facility] (DEFAULT) [address] [place] [address] 28427 Total Cholesterol/HDL Ratio 5.8 High <4.5 [facility] Comment on above: Performed By: #### F IB, PTPTT #### [facility] (DEFAULT) [address] [place] [address] 12286 Triglyceride [Mass/Vol] 392 mg/dL High <150 [facility] Comment on above: Result Comment: [<15 0 mg/dL: Desirable] [150-199 mg/dL: Borderline] [200-499 mg/dL: High] [>500 mg/dL: Very High] Performed By: #### F IB, PTPTT #### [facility] (DEFAULT) [address] [place] [address] 21439 MAGNESIUMon 03-08-2025 Magnesium [Mass/Vol] 2.2 mg/dL Normal 1.6-2.6 [facility] Comment on above: Performed By: #### F IB, PTPTT #### [facility] (DEFAULT) [address] [place] [address] 58873 PHOSPHATE, INORGANICon 03-08 Phosphorous 2.6 mg/dL Normal 2.2-4.6 [facility] Comment on above: Performed By: #### F IB, PTPTT #### [facility] (DEFAULT) [address] [place] [address] 84806 PREALBUMINon 03-08-2025 Prealbumin [Mass/Vol] 26 mg/dL Normal 17-34 [facility] Comment on above: Performed By: #### C ANDIDA AURIS SCREEN BY PCR #### [facility] (DEFAULT) [address] [place] [address] 31103 PT,INR,PTTon 03-08-2025 aPTT Coag (Bld) [Time] 28.9 s Normal 24.0-34.3 [facility] Comment on above: Performed By: #### X M #### [facility] (DEFAULT) [address] [place] [address] 99947 INR Coag (PPP) [Relative time] 1.0 {INR} Normal 0.9-1.1 [facility] Comment on above: Performed By: #### X M #### [facility] (DEFAULT) [address] [place] [address] 83632 PT Coag (PPP) [Time] 13.2 s Normal 11.9-14.2 [facility] Comment on above: Performed By: #### X M #### [facility] (DEFAULT) [address] [place] [address] 82986 T3 FREEon 03-08-2025 Free T3 [Mass/Vol] 3.1 pg/mL Normal 2.3-4.2 [facility] Comment on above: Performed By: #### S URGP #### [facility] (DEFAULT) [address] [place] [address] 27331 T4 FREEon 03-08-2025 Free T4 [Mass/Vol] 1.20 ng/dL Normal 0.89-1.76 [facility] Comment on above: Performed By: #### X M #### [facility] (DEFAULT) [address] [place] [address] TSHon 03-08-2025 TSH 1.584 uIU/mL Normal 0.550-4.780 [facility] Comment on above: Performed By: #### X M #### [facility] (DEFAULT) [address] [place] [address] 49496 TYPE AND SCREEN - PREADMISSI ONon 03-08-2025 ABO/RH(D) TYPE Positive Normal [facility] Comment on above: Performed By: #### X MPO #### [facility] (DEFAULT) [address] [place] [address] 91556 Specimen Expiration 03/13/2025 23:59 Normal [facility] Comment on above: Performed By: #### X MPO #### [facility] (DEFAULT) [address] [place] [address] CHEST WITHOUT CONTRASTon 03-05-2025 CT CHEST WITHOUT CONTRAST EXAM: CT CHEST WITHOUT CONTRAST COMPARISON: none CLINICAL INDICATIONS: preop CABG TECHNIQUE: Non contrast axial CT images of the chest 5 mm with 1 mm contiguous high-resolution, coronal MIP and sagittal MPR series. FINDINGS: Bilateral upper lobe hazy groundglass and minimal fine reticular markings with subpleural cysts predominantly in the lung periphery No dominant mass, no suspicious pulmonary nodule No pleural effusion Patent airways without wall thickening No adenopathy in the chest or axilla, few subcentimeter middle mediastinal paratracheal lymph nodes Aortic and coronary arteriosclerosis No pericardial effusion No aggressive osteolytic or blastic bony lesion Opposing endplate degenerative sclerotic Modic changes mid and caudal thoracic vertebral bodies, also cervical thoracic junction, bones are otherwise moderately demineralized No suspicious finding limited upper abdomen IMPRESSION: 1. Patient is a former smoker, upper lung findings of subpleural cysts and very mild groundglass and thin reticular markings may represent peripheral paraseptal subtype emphysema. The possibility of interstitial lung disease such as lymphocytic interstitial pneumonia (LIP) is also a consideration. Consider presentation at multidisciplinary chest conference and consultation with lung specialist regarding the need for additional management Mando Alcala M.D. This report has been electronically signed and verified by the Radiologist whose name is printed above. This report contains privileged and confidential information and is intended solely for the use of the individual or entity to which it is addressed. If you are not the intended recipient of this report, you are hereby notified that any copying, distribution, dissemination or action taken in relation to the contents of this report is strictly prohibited and may be unlawful. If you have received this report in error, please notify the sender immediately at [phone] and permanently delete the original report and destroy any copies or printouts. Normal [facility] US.doppler Carotid arteries - bilateralOrdered By: Manjinder Perez on 03-04-2025 [facility] Work Phone: US.doppler Carotid arteries - bilateralon 03-04-2025 Radiology Study observation (narrative) [facility] US.doppler Lower extremity v ein - bilateralOrdered By: Manjinder Perez on 03-04-2025 [facility] Work Phone: US.doppler Lower extremity v ein - bilateralon 03-04-2025 Radiology Study observation (narrative) [facility] SCREEN: MRSA/MSSAon 02-23-20 25 Methicillin Resistant S. Aureus By Pcr Negative Normal Negative [facility] Comment on above: Order Comment: This test was performed using a real time PCR assay. Results should be interpreted in conjunction with other clinical and laboratory findings. A positive result does not necessarily indicate the presence of viable organism. This test should not be used as a test of cure. For E-swab specimens, this test was developed and its performance characteristics determined by the Clinical Microbiology Laboratory at [facility]. It has not been cleared or approved by the FDA.The laboratory is regulated under CLIA as qualified to perform high-complexity testing. This test is used for clinical purposes. It should not be regarded as investigational or for research. Performed By: #### X M #### [facility] (DEFAULT) [address] [place] [address] Staphylococcus Aureus By Pcr Negative Normal Negative [facility] Comment on above: Order Comment: This test was performed using a real time PCR assay. Results should be interpreted in conjunction with other clinical and laboratory findings. A positive result does not necessarily indicate the presence of viable organism. This test should not be used as a test of cure. For E-swab specimens, this test was developed and its performance characteristics determined by the [facility]biology [facility] at [facility]. It has not been cleared or approved by the FDA.The laboratory is regulated under CLIA as qualified to perform high-complexity testing. This test is used for clinical purposes. It should not be regarded as investigational or for research. Performed By: #### X M #### [facility] (DEFAULT) [address] [place] [address] Cardiac echo study Procedure Ordered By: Kyaw Rowell on 02-10-2025 Ao ASC index 1.51 cm/m2 [facility] Work Phone: [phone] Ao peak jon 0.99 m/s [facility] Work Phone: [phone] Ao SOV index 1.57 cm/m2 [facility] Work Phone: [phone] Ao STJ index 1.37 cm/m2 [facility] Work Phone: [phone] Ao VTI 23.53 cm [facility] Work Phone: [phone] Ascending aorta 3.3 cm [facility] Work Phone: [phone] AV LVOT peak gradient 3 mmHg [facility] Work Phone: [phone] AV mean gradient 3 mmHg [facility] Work Phone: [phone] AV peak gradient 4 mmHG [facility] Work Phone: [phone] AV valve area 2.8 cm2 [facility] Work Phone: [phone] AV Velocity Ratio 0.[address] [facility] Work Phone: [phone] MERCEDES (continuity Vmax) 3.21 cm2 [facility] Work Phone: [phone] MERCEDES (continuity VTI) 2.8 cm2 [facility] Work Phone: [phone] MERCEDES index (continuity Vmax) 1.47 m/s [facility] Work Phone: [phone] MERCEDES index (continuity VTI) 1.28 cm2/m2 [facility] Phone: [phone] Avg e' pk jon 0.09 m/s [facility] Work Phone: [phone] Avg E/e' ratio 8.07 [facility] Work Phone: [phone] Body surface area Derived from formula 2.19 m2 [facility] Work Phone: [phone] BP EF 50 % [facility] Work Phone: [phone] DI (Vmax) 0.87 [facility] Work Phone: [phone] DI (VTI) 0.76 m/2 [facility] Work Phone: E wave decelartion time 327.96 msec O [facility] Work Phone: [phone] e' lateral pk jon 0.0896 m/s [facility] Work Phone: e' lateral pk jon 0.09 m/s [facility] Work Phone: [phone] e' septal pk jon 0.0913 m/s [facility]: [phone] e' septal pk jon 0.09 m/s [facility] Work Phone: E/A ratio 0.74 [facility] Work Phone: E/e' lateral ratio 8.15 [facility] Work Phone: [phone] E/e' septal ratio 8 [facility] Work Phone: EF SP 2CH 49 [facility] Work Phone: [phone] EF SP 4CH 49 [facility] Work Phone: [phone] EST RAP 3 mmHg [facility] Work Phone: [phone] FS 17 % [facility] Work Phone: [phone] IVC ostium 1.91 cm [facility] Work Phone: [phone] IVS 0.99 cm [facility] Work Phone: [phone] LA AREA 2CH 18.71 cm2 [facility] Work Phone: [phone] LA area 4CH 17.88 cm2 [facility] Work Phone: [phone] LA ESV BP (MOD) 49 mL [facility] Work Phone: [phone] LA ESV BP (MOD) index 22 mL/m2 [facility] Work Phone: [phone] LA ESV SP 2CH (MOD) 53 mL [facility] Work Phone: [phone] LA ESV SP 4CH (MOD) 45 [facility]: [phone] LA size 4.17 cm [facility] Work Phone: [phone] LEFT ATRIAL DIAMETER INDEX 1.9 cm/m2 [facility] Work Phone: [phone] Long Strain -17.8 % [facility] Work Phone: [phone] LV EDV BP 121 mL [facility] Work Phone: [phone] LV EDV SP 2CH 109 mL [facility] Work Phone: [phone] LV EDV SP 4CH 129 mL [facility] Work Phone: [phone] LV ESV BP 61 mL [facility] Work Phone: [phone] LV ESV SP 2CH 56 mL [facility] Work Phone: [phone] LV ESV SP 4CH 66 mL [facility] Work Phone: [phone] LV mass 211.98 g [facility] Work Phone: [phone] LV Mass Index 96.8 g/m2 [facility] Work Phone: [phone] LV RWT 0.37 [facility] Work Phone: [phone] LV stroke volume BP (ml) 60 mL [facility] Work Phone: [phone] LV stroke volume index BP 27.4 mL/m2 [facility] Work Phone: [phone] LVIDD 5.46 cm [facility] Work Phone: [phone] LVIDS 4.52 cm [facility] Work Phone: [phone] LVOT area 3.7 cm2 [facility] Work Phone: [phone] LVOT diameter 2.17 cm [facility] Work Phone: [phone] LVOT peak jon 0.86 m/s [facility] Work Phone: [phone] LVOT peak VTI 17.8 cm [facility] Work Phone: [phone] LVOT stroke volume 66 cm3 [facility] Work Phone: [phone] LVOT stroke volume index 30.04 ml/m2 [facility] Work Phone: [phone] MV pk A jon 0.99 m/s [facility] Work Phone: [phone] MV pk E jon 0.73 m/s [facility] Work Phone: [phone] MV stenosis pressure 1/2 time 95.11 ms [facility] Work Phone: [phone] MV valve area p 1/2 method 2.31 cm2 [facility] Work Phone: [facility] AV VTI RATIO PRE STRESS 0.76 [facility] Work Phone: [facility] ECHO LV BIPLANE SYSTOLIC VOLUME INDEX 27.85 mL/m2 [facility] Work Phone: [facility] ECHO LV BP DIASTOLIC VOLUME INDEX 55.25 mL/m2 [facility] Work Phone: [facility] RVOT VTI RATIO 0.77 [facility] Work Phone: PV mean gradient 2 mmHg [facility] Work Phone: PV peak gradient 4 mmHg [facility] Work Phone: PV PK JON 0.97 m/s [facility] Work Phone: PV VTI 20.87 cm [facility] Work Phone: PW 1.02 cm [facility] Work Phone: RA vol index 4CH (MOD) 21 mL/m2 [facility] Work Phone: Right atrium volume 4 chamber method of disks 46 [facility] Work Phone: RV Area diastolic 20.01 cm2 [facility] Work Phone: RV Area systolic 10.01 cm2 [facility] Work Phone: RV basal diam 3.3 cm [facility] Work Phone: RV Fractional area change 50 % [facility] Work Phone: RV long diam 8.5 cm [facility] Work Phone: RV mid diam 2.27 cm [facility] Work Phone: RV S' 9.94 cm/s [facility] Work Phone: RVOT peak gradient 1 mmHg [facility] Work Phone: RVOT peak jon 0.56 m/s [facility] Work Phone: RVOT peak VTI 16.09 cm [facility] Work Phone: Sinus 3.43 cm [facility] Work Phone: [phone] STJ 3 cm [facility] Work Phone: Stroke Volume 66 cm/mL [facility] Work Phone: Stroke volume index 30 [facility] Work Phone: TAPSE 1.92 cm [facility] Work Phone: [facility] Work Phone: Cardiac echo study Procedure on 02-10-2025 Left Ventricle: Yamilet marianne size is normal. Ejection fraction is mildly reduced (45 - 50%). Diastolic function is normal. GLS =-17.8% Right Ventricle: Chamber size is normal. Systolic function is normal. Left Atrium: Chamber size is normal. Trace TR, trace MR. Left Ventricle Chamber size is normal. Normal wall thickness. Ejection fraction is mildly reduced (45 - 50%). Diastolic function is normal. Global longitudinal strain is -17.8%. Right Ventricle Chamber size is normal. Systolic function is normal. Left Atrium Chamber size is normal. Right Atrium Chamber size is normal. IVC/SVC The inferior vena cava is normal in size. The inferior vena cava structure is normal. Mitral Valve Normal appearing leaflets. Leaflet mobility is normal. Trace regurgitation. No valve stenosis. Tricuspid Valve Normal leaflets. Leaflet mobility is normal. Trace regurgitation. No stenosis. Aortic Valve Trileaflet valve. Leaflet mobility is normal. No regurgitation. No stenosis. Pulmonic Valve Trace regurgitation. No stenosis. Pericardium No pericardial effusion. Septum The atrial septum is normal. Aorta No dilation to extent seen. SOV: 3.43 cm. STJ: 3.00 cm. Ascendin.30 cm. Study Details A complete echocardiography study (including color flow Doppler, spectral Doppler, M-mode and left ventricular strain) was performed. Imaging system used: Siemens. Indications Indications for study: pre-op, LV function and dyspnea. [facility] Radiology Study observation (narrative) [facility] ECHOCARDIOGRAMon 02-10-2025 Echocardiography ? Left Ventricle: Chamber size is normal. Ejection fraction is mildly reduced (45 - 50%). ? Diastolic function is normal. GLS =-17.8% ? Right Ventricle: Chamber size is normal. Systolic function is normal. ? Left Atrium: Chamber size is normal. ? Trace TR, trace MR. Table formatting from the original result was not included. Images from the original result were not included. [facility] Patient Information Patient Name Meir Landrum Legal Sex Male Indication for Exam Priority: Routine Dx: Hx of percutaneous transluminal coronary angioplasty [Z98.61 (ICD-10-CM)]; DAVID (dyspnea on exertion) [R06.09 (ICD-10-CM)] Comments: CABG eval, LV function assessment, multivessel CAD Interpretation Summary Result History is available. ? Left Ventricle: Chamber size is normal. Ejection fraction is mildly reduced (45 - 50%). ? Diastolic function is normal. GLS =-17.8% ? Right Ventricle: Chamber size is normal. Systolic function is normal. ? Left Atrium: Chamber size is normal. ? Trace TR, trace MR. Findings Left Ventricle Chamber size is normal. Normal wall thickness. Ejection fraction is mildly reduced (45 - 50%). Diastolic function is normal. Global longitudinal strain is -17.8%. Right Ventricle Chamber size is normal. Systolic function is normal. Left Atrium Chamber size is normal. Right Atrium Chamber size is normal. Septum The atrial septum is normal. Mitral Valve Normal appearing leaflets. Leaflet mobility is normal. Trace regurgitation. No valve stenosis. Aortic Valve Trileaflet valve. Leaflet mobility is normal. No regurgitation. No stenosis. Tricuspid Valve Normal leaflets. Leaflet mobility is normal. Trace regurgitation. No stenosis. Pulmonic Valve Trace regurgitation. No stenosis. Aorta No dilation to extent seen. SOV: 3.43 cm. STJ: 3.00 cm. Ascendin.30 cm. Pericardium No pericardial effusion. IVC/SVC The inferior vena cava is normal in size. The inferior vena cava structure is normal. Reading Providers Reading Role Read Date Kyaw Rowell MD Echo Arlee, Test Bilingual Nanny 02/10/2025 Left Heart Measurements LV - Systole LVIDD 5.46 cm IVS 0.99 cm LVIDS 4.52 cm PW 1.02 cm LV RWT 0.37 LV Mass Index 96.8 g/m2 LV EDV BP 121 mL LV ESV BP 61 mL BP EF 50 % LV stroke volume BP (ml) 60 mL LV stroke volume index BP 27.4 mL/m2 Long Strain -17.8 % LV - Diastole MV pk E jon 0.73 m/s MV pk A jon 0.99 m/s E/A ratio 0.74 e' septal pk jon 0.09 m/s e' lateral pk jon 0.09 m/s Avg e' pk jon 0.09 m/s E/e' septal ratio 8 E/e' lateral ratio 8.15 Avg E/e' ratio 8.07 LV - HCM AV LVOT peak gradient 3 mmHg Left Atrium LA size 4.17 cm LA ESV SP 4CH (MOD) 45 mL LA ESV SP 2CH (MOD) 53 mL LA ESV BP (MOD) index 22 mL/m2 Right Heart Measurements RV - 2D RV basal diam 3.3 cm RV mid diam 2.27 cm RV long diam 8.5 cm RV Area diastolic 20.01 cm2 RV Area systolic 10.01 cm2 RV Fractional area change 50 % RV - Doppler TAPSE 1.92 cm RV S' 9.94 cm/s Right Atrium RA vol index 4CH (MOD) 21 mL/m2 EST RAP 3 mmHg Great Vessels Aortic Root - End Diastolic Sinus 3.43 cm STJ 3 cm Ascending aorta 3.3 cm Inferior Vena Cava IVC ostium 1.91 cm Doppler Measurements - Aortic Valve Stenosis LVOT diameter 2.17 cm LVOT area 3.7 cm2 LVOT peak jon 0.86 m/s LVOT peak VTI 17.8 cm Stroke Volume 66 cm/mL Stroke volume index 30 Ao peak jon 0.99 m/s Ao VTI 23.53 cm AV peak gradient 4 mmHG AV mean gradient 3 mmHg DI (VTI) 0.76 m/2 DI (Vmax) 0.87 MERCEDES (continuity Vmax) 3.21 cm2 MERCEDES index (continuity Vmax) 1.47 m/s MERCEDES (continuity VTI) 2.8 cm2 MERCEDES index (continuity VTI) 1.28 cm2/m2 LVOT stroke volume 66 cm3 LVOT stroke volume index 30.04 ml/m2 Doppler Measurements - Mitral Valve Stenosis MV pk E jon 0.73 m/s MV pk A jon 0.99 m/s E/A ratio 0.74 MV stenosis pressure 1/2 time 95.11 ms MV valve area p 1/2 method 2.31 cm2 PISA-MS MV pk E jon 0.73 m/s Doppler Measurements - Tricuspid Valve Stenosis IVC ostium 1.91 cm Regurgitation EST RAP 3 mmHg Doppler Measurements - Pulmonic Valve Stenosis PV PK JON 0.97 m/s PV VTI 20.87 cm PV peak gradient 4 mmHg PV mean gradient 2 mmHg RVOT peak jon 0.56 m/s RVOT peak VTI 16.09 cm RVOT peak gradient 1 mmHg Vitals Height Weight BSA (Calculated - sq m) BP Pulse 1.778 m (5' 10") 102.1 kg (225 lb 1.4 oz) 2.19 m2 130/84 75 Performing Staff Lyndon Jacinto RDCS Study Details A complete echocardiography study (including color flow Doppler, spectral Doppler, M-mode and left ventricular strain) was (more content not included)... Normal [facility] INVASIVE CARDIOVASCULAR PROC EDURE 02-07-2025 INVASIVE CARDIOVASCULAR PROCEDURE Background:Meir Landrum is 69 y.o. who presents for [facility]/Coronary angiogram due to DAVID. Access: Right Radial Diagnostics: - right dominant system -RCA : mRCA up to 80% stenosis -LAD: at previously placed proximal LAD stent there is up to 80%-90% ISR -LCx: proximal LCx just after OM1 there is up to 80% focal stenosis. 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 Recommendations: CTS Referral placed for expedited eval for CABG Table formatting from the original result was not included. Images from the original result were not included. Meir Landrum Invasive Cardiology Cath Procedure Ordering Physician: LUIS ANTONIO ARIAS Order #: [id number] Study Date: 02/03/2025 Patient Information Name MRN Description Meir Landrum [id number] 69 y.o. male Location Name Address [facility] [address] [facility] [address] Physicians Panel Physicians Referring Physician Case Authorizing Physician Anirudh Rutledge MD (Primary) DO Luis Antonio Damian MD CC Referring Recipient Method Contact Information Pratibha Ronquillo DO ? ? Procedures CORONARY ANGIOGRAM WITH LEFT HEART CATH Indications Angina pectoris [I20.9 (ICD-10-CM)] 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 [I25.119 (ICD-10-CM)] H/O heart artery stent [Z95.5 (ICD-10-CM)] Hyperlipidemia, unspecified hyperlipidemia type [E78.5 (ICD-10-CM)] Conclusion Background:Meir Landrum is 69 y.o. who presents for [facility]/Coronary angiogram due to DAVID. Access: Right Radial Diagnostics: - right dominant system -RCA : mRCA up to 80% stenosis -LAD: at previously placed proximal LAD stent there is up to 80%-90% ISR -LCx: proximal LCx just after OM1 there is up to 80% focal stenosis. 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 Recommendations: CTS Referral placed for expedited eval for CABG Medical History Diagnosis Date Comment Source Arthritis CAD (coronary artery disease) Congestive heart failure Diverticulitis Hyperlipidemia VT (myocardial infarction) Medical History - Pertinent Negatives Pertinent Negative Date Comment Source COPD (chronic obstructive pulmonary disease) 02/03/2025 Diabetes mellitus 02/03/2025 Essential hypertension, benign 02/03/2025 Hepatitis 02/03/2025 Liver disease 02/03/2025 Migraine 02/03/2025 GO (obstructive sleep apnea) 02/03/2025 Pacemaker 02/03/2025 Renal disease 02/03/2025 Seizure 02/03/2025 Stroke 02/03/2025 TIA (transient ischemic attack) 02/03/2025 Vascular disease 02/03/2025 Procedure The risks and alternatives of the procedure and sedation were explained. Informed consent was obtained. The patient was brought to the canvas shop laborer and placed on the table. The planned puncture sites were prepped and draped in the usual sterile fashion. Fluoro Dose Fluoro Dose: 27.2 Gy-cm^2 Complications Complications documented before study signed (02/07/2025 9:57 AM) No complications were associated with this study. Documented by Anirudh Rutledge MD - 02/07/2025 9:57 AM Cardiac Bin Piler Attending Physician Statement and Signature I have personally performed and/or personally supervised and was present for this entire procedure, including the review and interpretation of all images and physiologic tracings acquired during the course of this study. Signed at 0957 EDT Phase: Baseline Data Systolic (mmHg) Diastolic (mmHg) Mean (mmHg) dP/dt (mmHg/sec) A Wave (mmHg) V Wave (mmHg) AO Pressures [phone] 92 LV Pressures 146 6 Case Tracking Events Event Time In Patient In - Facility (Arrived) 9:56 AM In Preprocedure 9:58 AM Preprocedure Complete 10:30 AM Patient Ready for Procedure 11:40 AM Medical History Prompt Yes/No Comments Date VT Yes Hypertension No 02/03/2025 Stroke No 02/03/2025 Vascular Disease No 02/03/2025 COPD No 02/03/2025 Diabetes No 02/03/2025 Surgical History Prompt Yes/No Procedure Laterality Comments Date CABG Unanswered Coronary Artery Bypass Graft Tobacco Use Some Days; Cigarettes: Started 09/08/1974; Last attempted to quit 04/30/2021; 0.5 packs/day; Smoked an average of 1 pack/day for 48.[address]?: Occasional tobacco smoker ([id number]). Smokeless Tobacco: Never used smokeless tobacco. Comments: Not a heavy smoker and have quit several times in last 10 years Vaping Use Never used Last Resulted Components Date/Time Component Value Lab Status 02/03/25 1008 CREATSERUM 1.05 Final result 02/03/25 1008 HGB 17.7 Final result Normal [facility] CBC,PLATELETSon 02-03-2025 Erythrocyte distribution width (RBC) [Ratio] 13.2 % 10.9 - 14.3 % [facility] Hematocrit (Bld) [Volume fraction] 53.1 % High 39.6 - 48.8 % [facility] Hemoglobin (Bld) [Mass/Vol] 17.7 g/dL High 13.4 - 16.8 g/dL [facility] Interpretation and review of laboratory results Abnormal [facility] MCH (RBC) [Entitic mass] 30.6 pg 26.1 - 33.3 pg [facility] MCHC (RBC) [Mass/Vol] 33.3 g/dL 31.9 - 36.5 g/dL [facility] MCV (RBC) [Entitic vol] 91.7 fL 79.0 - 94.5 fL [facility] Platelet mean volume (Bld) [Entitic vol] 8.8 fL 8.7 - 12.3 fL [facility] Platelets (Bld) [#/Vol] 271 10*3/uL 146 - 337 K/uL [facility] RBC (Bld) [#/Vol] 5.79 10*6/uL [facility] WBC (Bld) [#/Vol] 11.85 10*3/uL High 3.73 - 10.10 K/uL [facility] Hematocrit (Bld) [Volume fraction] 53.1 % High 39.6-48.8 [facility] Comment on above: Performed By: #### [facility] ####[facility] (DEFAULT)[address] [place] [address] Hemoglobin (Bld) [Mass/Vol] 17.7 g/dL High 13.4-16.8 [facility] Comment on above: Performed By: #### [facility] ####[facility] (DEFAULT)[address] [place] [address] MCV (RBC) [Entitic vol] 91.7 fL Normal 79.0-94.5 O [facility] Comment on above: Performed By: #### [facility] ####[facility] (DEFAULT)[address] [place] [address] Mean Cell Hgb 30.6 pg Normal 26.1-33.3 [facility] Comment on above: Performed By: #### H EMO ####[facility] (DEFAULT)[address] [place] [address] Mean Cell Hgb Conc 33.3 g/dL Normal 31.9-36.5 [facility] Comment on above: Performed By: #### H EMO ####[facility] (DEFAULT)[address] [place] [address] Platelet mean volume (Bld) [Entitic vol] 8.8 fL Normal 8.7-12.3 [facility] Comment on above: Performed By: #### H EMO ####[facility] (DEFAULT)[address] [place] [address] Platelets (Bld) [#/Vol] 271 10*3/uL Normal 146-337 [facility] Comment on above: Performed By: #### H EMO ####[facility] (DEFAULT)[address] [facility] [place] [address] RBC (Bld) [#/Vol] 5.79 10*6/uL Normal 4.38-5.83 [facility] Comment on above: Performed By: #### H EMO ####[facility] (DEFAULT)[address] [place] [address] RBC Distribution 13.2 % Normal 10.9-14.3 [facility] Comment on above: Performed By: #### H EMOGC ####[facility] (DEFAULT)[address] [place] [address] WBC (Bld) [#/Vol] 11.85 10*3/uL High 3.73-10.10 [facility] Comment on above: Performed By: #### H EMOGC ####[facility] (DEFAULT)[address] [facility] [place] [address] CHEM 6 (LYTES, BUN CREA)on 0 02-03-2025 Anion gap [Moles/Vol] 14 mmol/L 7 - 17 mmol/L [facility] Chloride [Moles/Vol] 103 mmol/L 98 - 10 8 mmol/L [facility] CO2 [Moles/Vol] 26 mmol/L 21 - 31 mmol/L [facility] Creatinine [Mass/Vol] 1.05 mg/dL 0.70 - 1.30 mg/dL [facility] eGFR, CKD-EPI, Male 78 - PINF [facility] Comment on above: Reported eGFR is bas ed on the CKD-EPI 2020 equation using creatinine, age, and sex. Potassium [Moles/Vol] 3.9 mmol/L 3.5 - 5.0 mmol/L [facility] Sodium [Moles/Vol] 139 mmol/L 135 - 145 mmol/L [facility] Urea nitrogen [Mass/Vol] 21 mg/dL 7 - 25 mg/dL [facility] Urea nitrogen/Creatinine [Mass ratio] 20 mg/mg [facility] Anion gap [Moles/Vol] 14 mmol/L Normal 7-17 [facility] Comment on above: Performed By: #### S URGP #### [facility] (DEFAULT) [address] [address] Chloride [Moles/Vol] 103 mmol/L Normal 98-108 [facility] Comment on above: Performed By: #### S URGP #### [facility] (DEFAULT) [address] [place] [address] CO2 [Moles/Vol] 26 mmol/L Normal 21-31 [facility] Comment on above: Performed By: #### S URGP #### [facility] (DEFAULT) [address] [address] Creatinine [Mass/Vol] 1.05 mg/dL Normal 0.70-1.30 [facility] Comment on above: Performed By: #### S URGP #### [facility] (DEFAULT) [address] [place] [address] GFR/1.73 sq M.predicted among non-blacks MDRD (S/P/Bld) [Vol rate/Area] 78 mL/min/{1.73_m2} Normal >=60 [facility] Comment on above: Result Comment: Repo rted eGFR is based on the CKD-EPI 2020 equation using creatinine, age, and sex. Performed By: #### S URGP #### [facility] (DEFAULT) [address] [place] [address] Potassium [Moles/Vol] 3.9 mmol/L Normal 3.5-5.0 [facility] Comment on above: Performed By: #### S URGP #### [facility] (DEFAULT) [address] [place] [address] Sodium [Moles/Vol] 139 mmol/L Normal 135-145 [facility] Comment on above: Performed By: #### S URGP #### [facility] (DEFAULT) [address] [place] [address] Urea nitrogen [Mass/Vol] 21 mg/dL Normal 7-25 [facility] Comment on above: Performed By: #### S URGP #### [facility] (DEFAULT) [address] [place] [address] Urea nitrogen/Creatinine [Mass ratio] 20 mg/mg Normal [facility] Comment on above: Performed By: #### S URGP #### [facility] (DEFAULT) [address] [place] [address] Cardiac catheterization stud yon 02-03-2025 [facility] Radiology Study observation (narrative) [facility] EXTRA LIGHT BLUE TOPOrdered By: Storm Eagle on 02-03-2025 [facility] Absolute lymphocyte countOrd ered By: Luis Antonio Arias on 02-02-2025 Lymphocytes Auto (Unsp spec) [#/Vol] 2.50 10*3/uL 0.83-4.51 [facility] Absolute neutrophil countOrd ered By: Luis Antonio Arias on 02-02-2025 Neutrophils (Bld) [#/Vol] 7.6 10*3/uL 2.0-7.7 [facility] Anion gap in Serum or Plasma Ordered By: Luis Antonio Arisa on 02-02-2025 Anion gap [Moles/Vol] 11 mmol/L 5-15 [facility] Automated lymphocyte count a s percentage of total leukocytesOrdered By: Luis Antonio Arias on 02-02-2025 Lymphocytes/100 WBC Auto (Unsp spec) 20.4 % [facility] BUN/creatinine ratioOrdered By: Luis Antonio Arias on 02-02-2025 Urea nitrogen/Creatinine [Mass ratio] 22.1 mg/mg High 06-27 [facility] Basic Metabolic Profile (BMP )on 02-02-2025 BUN/CRE 22.1 RATIO High 06-27 [facility] Comment on above: Performed By: #### L 100.0100, L500.2500 #### [facility] [address] [place], [address] Calcium [Mass/Vol] 9.2 mg/dL Normal 7.6-11.0 [facility] Comment on above: Performed By: #### L 100.0100, L500.2500 #### [facility] [address] [place], [address] Chloride [Moles/Vol] 105 mmol/L Normal 98-108 [facility] Comment on above: Performed By: #### L 100.0100, L500.2500 #### [facility] [address] [place], [address] CO2 [Moles/Vol] 21.9 mmol/L Normal 21.0-32.0 [facility] Comment on above: Performed By: #### L 100.0100, L500.2500 #### [facility] [address] [place], [address] Creatinine [Mass/Vol] 1.08 mg/dL Normal 0.70-1.20 [facility] Comment on above: Performed By: #### L 100.0100, L500.2500 #### [facility] [address] [place], [address] GAP 11 Normal 5-15 [facility] Comment on above: Performed By: #### L 100.0100, L500.2500 #### [facility] [address] [place], [address] GFR/1.73 sq M.predicted among non-blacks MDRD (S/P/Bld) [Vol rate/Area] 75 mL/min/{1.73_m2} Normal >60 [facility] Comment on above: Result Comment: mL/m in/1.73m2 CKD-EPI Creatinine Equation (2020) Performed By: #### L 100.0100, L500.2500 #### [facility] [address] [place], [address] Glucose [Mass/Vol] 99 mg/dL Normal 70-99 [facility] Comment on above: Performed By: #### L 100.0100, L500.2500 #### [facility] [address] [place], [address] Potassium [Moles/Vol] 4.4 mmol/L Normal 3.3-5.1 [facility] Comment on above: Performed By: #### L 100.0100, L500.2500 #### [facility] [address] [place], [address] Sodium [Moles/Vol] 138 mmol/L Normal 133-145 [facility] Comment on above: Performed By: #### L 100.0100, L500.2500 #### [facility] [address] [place], [address] Urea nitrogen [Mass/Vol] 24 mg/dL High 4-19 [facility] Comment on above: Performed By: #### L 100.0100, L500.2500 #### [facility] [address] [place], [address] Basophil percentageOrdered B y: Luis Antonio Arias on 02-02-2025 Basophils/100 WBC (Bld) 1.0 % 0-1 [facility] CBC W/Diff, Automatedon 05- Absolute Lymph 2.50 X10 3/uL Normal 0.83-4.51 [facility] Comment on above: Performed By: #### L 100.0100, L500.2500 #### [facility] [address] [place], [address] Absolute Neut 7.6 X10 3/uL Normal 2.0-7.7 [facility] Comment on above: Performed By: #### L 100.0100, L500.2500 #### [facility] [address] [place], [address] Basophils/100 WBC (Bld) 1.0 % Normal 0-1 [facility] Comment on above: Performed By: #### L 100.0100, L500.2500 #### [facility] [address] [place], [address] Eosinophils/100 WBC (Bld) 6.9 % High 0-5 [facility] Comment on above: Performed By: #### L 100.0100, L500.2500 #### [facility] [address] [place], [address] Erythrocyte distribution width (RBC) [Ratio] 13.0 % Normal 11.6-14.6 [facility] Comment on above: Performed By: #### L 100.0100, L500.2500 #### [facility] [address] [place], [address] Hematocrit (Bld) [Volume fraction] 47.7 % Normal 40-54 [facility] Comment on above: Performed By: #### L 100.0100, L500.2500 #### [facility] [address] [place], [address] Hemoglobin (Bld) [Mass/Vol] 16.4 g/dL Normal 13.0-16.5 [facility] Comment on above: Performed By: #### L 100.0100, L500.2500 #### [facility] [address] [place], [address] IG% 0.800 Normal 0.0-0.9 [facility] Comment on above: Result Comment: IG% - Immature Granulocytes (promyelocytes, myelocytes and metamyelocytes) > 1% indicates that a LEFT SHIFT is Present. Performed By: #### L 100.0100, L500.2500 #### [facility] [address] [place], [address] Lymphocytes/100 WBC (Bld) 20.4 % Normal 19-41 [facility] Comment on above: Performed By: #### L 100.0100, L500.2500 #### [facility] [address] [place], [address] MCH (RBC) [Entitic mass] 31.1 pg Normal 27.0-32.0 [facility] Comment on above: Performed By: #### L 100.0100, L500.2500 #### [facility] [address] [place], [address] MCHC (RBC) [Mass/Vol] 34.4 g/dL Normal 32-36 [facility] Comment on above: Performed By: #### L 100.0100, L500.2500 #### [facility] [address] [place], [address] MCV (RBC) [Entitic vol] 90.5 fL Normal 80-94 [facility] Comment on above: Performed By: #### L 100.0100, L500.2500 #### [facility] [address] [place], [address] Monocytes/100 WBC (Bld) 8.9 % Normal 0-10 [facility] Comment on above: Performed By: #### L 100.0100, L500.2500 #### [facility] [address] [place], [address] Neutrophils/100 WBC (Bld) 62.0 % Normal 47-70 [facility] Comment on above: Performed By: #### L 100.0100, L500.2500 #### [facility] [address] [place], [address] Nucleated RBC (Bld) [#/Vol] 0 10*3/uL Normal 0-5 [facility] Comment on above: Performed By: #### L 100.0100, L500.2500 #### [facility] [address] [place], [address] Platelet mean volume (Bld) [Entitic vol] 8.5 fL Normal 6.2-12.0 [facility] Comment on above: Performed By: #### L 100.0100, L500.2500 #### [facility] [address] [place], [address] Platelets (Bld) [#/Vol] 247 10*3/uL Normal 150-450 [facility] Comment on above: Performed By: #### L 100.0100, L500.2500 #### [facility] [address] [place], [address] RBC (Bld) [#/Vol] 5.27 10*6/uL Normal 4.6-6.2 [facility] Comment on above: Performed By: #### L 100.0100, L500.2500 #### [facility] [address] [place], [address] RDW SD 43.2 fl Normal 35.1-43.9 [facility] Comment on above: Performed By: #### L 100.0100, L500.2500 #### [facility] [address] [place], [address] WBC (Bld) [#/Vol] 12.3 10*3/uL High 4.4-11.0 [facility] Comment on above: Performed By: #### L 100.0100, L500.2500 #### [facility] [address] [place], [address] Carbon dioxide, total [Moles /volume] in Central venous bloodOrdered By: Luis Antonio Arias on 02-02-2025 CO2 [Moles/Vol] 21.9 mmol/L 21.0-32.0 [facility] Chloride assayOrdered By: Danie Arias on 02-02-2025 Chloride [Moles/Vol] 105 mmol/L 98-108 [facility] Eosinophil percentageOrdered By: Luis Antonio Arias on 02-02-2025 Eosinophils/100 WBC (Bld) 6.9 % High 0-5 [facility] Erythrocyte distribution wid th ratioOrdered By: Luis Antonio Arias on 02-02-2025 Erythrocyte distribution width (RBC) [Ratio] 13.0 % 11.6-14.6 [facility] Erythrocyte distribution wid th standard deviationOrdered By: Luis Antonio Arias on 02-02-2025 Erythrocyte distribution width (RBC) [Ratio] 43.2 fl 35.1-43.9 [facility] Glomerular filtration rate ( GFR) estimation/1.73 sq m using serum, plasma, or whole bOrdered By: Luis Antonio Arias on 02-02-2025 GFR/1.73 sq M.predicted among non-blacks MDRD (S/P/Bld) [Vol rate/Area] 75 mL/min/{1.73_m2} >60 [facility] Comment on above: mL/min/1.73m2 CKD-EP I Creatinine Equation (2020) Hematocrit Auto (Bld) [Volum e fraction]Ordered By: Luis Antonio Arias on 02-02-2025 Hematocrit (Bld) [Volume fraction] 47.7 % 40-54 [facility] Hemoglobin measurementOrdere d By: Luis Antonio Arias on 02-02-2025 Hemoglobin (Bld) [Mass/Vol] 16.4 g/dL 13.0-16.5 [facility] Immature granulocytes/100 WB C Auto (Bld)Ordered By: Luis Antonio Arias on 02-02-2025 Immature granulocytes/100 WBC (Bld) 0.800 % 0.0-0.9 [facility] Comment on above: IG% - Immature Granu locytes (promyelocytes, myelocytes and metamyelocytes) > 1% indicates that a LEFT SHIFT is Present. MCV (mean corpuscular volume ) determinationOrdered By: Luis Antonio Arias on 02-02-2025 MCV (RBC) [Entitic vol] 90.5 fL 80-94 [facility] Mean corpuscular hemoglobin (MCH) determinationOrdered By: Luis Antonio Arias on 02-02-2025 MCH (RBC) [Entitic mass] 31.1 pg 27.0-32.0 [facility] Mean corpuscular hemoglobin concentration (MCHC) determinationOrdered By: Luis Antonio Arias on 02-02-2025 MCHC (RBC) [Mass/Vol] 34.4 g/dL 32-36 [facility] Mean platelet volume determi nationOrdered By: Luis Antonio Arias on 02-02-2025 Platelet mean volume (Bld) [Entitic vol] 8.5 fL 6.2-12.0 [facility] Monocyte percentageOrdered B y: Luis Antonio Arias on 02-02-2025 Monocytes/100 WBC (Bld) 8.9 % 0-10 [facility] Neutrophil percentageOrdered By: Luis Antonio Arias on 02-02-2025 Neutrophils/100 WBC (Bld) 62.0 % 47-70 [facility] Nucleated red blood cell per centageOrdered By: Luis Antonio Arias on 02-02-2025 Nucleated RBC/100 WBC (Bld) [Ratio] 0 % 0-5 [facility] Platelet countOrdered By: Danie Arias on 02-02-2025 Platelets (Bld) [#/Vol] 247 10*3/uL 150-450 [facility] Potassium measurement (mass/ volume)Ordered By: Luis Antonio Arias on 02-02-2025 Potassium (Unsp spec) [Mass/Vol] 4.4 mmol/L 3.3-5.1 [facility] RBC Auto (Bld) [#/Vol]Ordere d By: Luis Antonio Arias on 02-02-2025 RBC (Bld) [#/Vol] 5.27 10*6/uL 4.6-6.2 [facility] Serum creatinine measurement (mass/volume)Ordered By: Luis Antonio Arias on 02-02-2025 Creatinine [Mass/Vol] 1.08 mg/dL 0.70-1.20 [facility] Serum glucose measurement (m ass/volume)Ordered By: Luis Antonio Arias on 02-02-2025 Glucose [Mass/Vol] 99 mg/dL 70-99 [facility] Serum or plasma calcium jimy urement (mass/volume)Ordered By: Luis Antonio Arias on 02-02-2025 Calcium [Mass/Vol] 9.2 mg/dL 7.6-11.0 [facility] Serum or plasma urea nitroge n measurement (mass/volume)Ordered By: Luis Antonio Arias on 02-02-2025 Urea nitrogen [Mass/Vol] 24 mg/dL High 4-19 [facility] Sodium levelOrdered By: Luis Antonio Arias on 02-02-2025 Sodium [Moles/Vol] 138 mmol/L 133-145 [facility] White blood cell (WBC) count Ordered By: Luis Antonio Arias on 02-02-2025 WBC (Bld) [#/Vol] 12.3 10*3/uL High 4.4-11.0 [facility] Anion gap in Serum or Plasma Ordered By: Pratibha Ronquillo on 01-14-2025 Anion gap [Moles/Vol] 11 mmol/L 5-15 [facility] BUN/creatinine ratioOrdered By: Pratibha Ronquillo on 01-14-2025 Urea nitrogen/Creatinine [Mass ratio] 15.4 mg/mg 10-20 [facility] Bilirubin directOrdered By: Pratibha Ronquillo on 01-14-2025 Bilirubin.direct [Mass/Vol] 0.12 mg/dL Normal 0.00-0.30 [facility] Comment on above: Hemolysis present, R esults could be affected. Order Comment: DR.PM BONILLA ORDERED LIPID AND LIVERDR.LINDA ORDERED CMP, LIPID, PSA Result Comment: Hemo lysis present, Results??could be affected. ?? Performed By: #### L 100.0100, L500.2500 #### [facility] [address] [place], [address] Bilirubin, totalOrdered By: Pratibha Ronquillo on 01-14-2025 Bilirubin [Mass/Vol] 0.50 mg/dL Normal 0.00-1.30 [facility] Comment on above: Order Comment: DR.PM BONILLA ORDERED LIPID AND LIVERDR.LINDA ORDERED CMP, LIPID, PSA Performed By: #### L 100.0100, L500.2500 #### [facility] [address] [place], [address] Calculated very low density lipoprotein (VLDL) cholesterol measurementOrdered By: Pratibha Ronquillo on 01-14-2025 Calculated very low density lipoprotein (VLDL) cholesterol measurement 72 mg/dL High 5-40 [facility] Carbon dioxide, total [Moles /volume] in Central venous bloodOrdered By: Pratibha Ronquillo on 01-14-2025 CO2 [Moles/Vol] 23.9 mmol/L Normal 21.0-32.0 [facility] Comment on above: Order Comment: DR.PM BONILLA ORDERED LIPID AND LIVERDR.LINDA ORDERED CMP, LIPID, PSA Performed By: #### L 100.0100, L500.2500 #### [facility] [address] [place], [address] Chloride assayOrdered By: Daniel Ronquillo on 01-14-2025 Chloride [Moles/Vol] 105 mmol/L Normal 98-108 [facility] Comment on above: Order Comment: DR.PM BONILLA ORDERED LIPID AND LIVERDR.LINDA ORDERED CMP, LIPID, PSA Performed By: #### L 100.0100, L500.2500 #### [facility] [address] [place], [address] Comprehensive Metabolic Prof nina 01-14-2025 ALK PHOS 85 U/L Normal 40-129 [facility] Comment on above: Order Comment: DR.PM BONILLA ORDERED LIPID AND LIVERDR.[facility] ORDERED CMP, LIPID, PSA Performed By: #### L 100.0100, L500.2500 #### [facility] [address] [place], [address] BUN/CRE 15.4 RATIO Normal 10-20 [facility] Comment on above: Order Comment: DR.PM BONILLA ORDERED LIPID AND LIVERDR.[facility] ORDERED CMP, LIPID, PSA Performed By: #### L 100.0100, L500.2500 #### [facility] [address] [place], [address] GAP 11 Normal 5-15 [facility] Comment on above: Order Comment: DR.PM BONILLA ORDERED LIPID AND LIVERDR.[facility] ORDERED CMP, LIPID, PSA Performed By: #### L 100.0100, L500.2500 #### [facility] [address] [place], [address] Potassium [Moles/Vol] 4.6 mmol/L Normal 3.3-5.1 [facility] Comment on above: Order Comment: DR.PM BONILLA ORDERED LIPID AND LIVERDR.[facility] ORDERED CMP, LIPID, PSA Result Comment: Hemo lysis present, Results??could be affected. ?? Performed By: #### L 100.0100, L500.2500 #### [facility] [address] [place], [address] T PROT 7.0 g/dL Normal 5.9-8.4 [facility] Comment on above: Order Comment: DR.PM BONILLA [facility]DR[facility]MP, LIPID, PSA Performed By: #### L 100.0100, L500.2500 #### [facility] [address] [place], [address] Comprehensive Metabolic Prof ilOrdered By: Pratibha Ronquillo on 01-14-2025 AST [Catalytic activity/Vol] 31 U/L Normal <=37 [facility] Comment on above: Hemolysis present, R esults could be affected. Order Comment: DR.PM BONILLA ORDERED LIPID AND LIVERDR.LINDA ORDERED CMP, LIPID, PSA Result Comment: Hemo lysis present, Results??could be affected. ?? Performed By: #### L 100.0100, L500.2500 #### [facility] [address] [place], [address] Glomerular filtration rate ( GFR) estimation/1.73 sq m using serum, plasma, or whole bOrdered By: Pratibha Ronquillo on 01-14-2025 GFR/1.73 sq M.predicted among non-blacks MDRD (S/P/Bld) [Vol rate/Area] 81 mL/min/{1.73_m2} Normal >60 [facility] Comment on above: mL/min/1.73m2 CKD-EP I Creatinine Equation (2020) Order Comment: DR.PM BONILLA ORDERED LIPID AND LIVERDR.LINDA ORDERED CMP, LIPID, PSA Result Comment: mL/m in/1.73m2 CKD-EPI Creatinine Equation (2020) Performed By: #### L 100.0100, L500.2500 #### [facility] [address] [place], [address] LDL calc ser/plasOrdered By: Pratibha Ronquillo on 01-14-2025 Cholesterol in LDL [Mass/Vol] 87 mg/dL Normal [facility] Comment on above: Oqzilwqeks=448-441 m g/dL & Higher Oszp=686 mg/dL or greater Order Comment: DR.PM BONILLA ORDERED LIPID AND LIVERDR.LINDA ORDERED CMP, LIPID, PSA Result Comment: Bord byveqe=792-298 mg/dL Higher Xqyc=606 mg/dL or greater Performed By: #### L 100.0100, L500.2500 #### [facility] [address] [place], [address] Lipid Profileon 01-14-2025 CHOL:HDL 5.19 Normal [facility] Comment on above: Order Comment: DR.PM BONILLA ORDERED LIPID AND LIVERDR.LINDA ORDERED CMP, LIPID, PSA Performed By: #### L 100.0100, L500.2500 #### [facility] [address] [place], [address] Cholesterol in VLDL [Mass/Vol] 72 mg/dL High 5-40 [facility] Comment on above: Order Comment: DR.PM BONILLA ORDERED LIPID AND LIVERDR.LINDA ORDERED CMP, LIPID, PSA Performed By: #### L 100.0100, L500.2500 #### [facility] [address] [place], [address] PSA,Total - Annual Screenon 01-14-2025 PSA,TOT SCREEN 2.09 ng/mL Normal 0.02-4.00 [facility] Comment on above: Order Comment: DR.PM BONILLA ORDERED LIPID AND LIVERDR.LINDA ORDERED CMP, LIPID, PSA Result Comment: This test was performed using the [employer] tPSA method. Measured values of a patient??sample can vary depending on the testing procedure used. PSA values determined on patient samples by different testing procedures cannot be used interchangeably. If there is a change in PSA assays while monitoring therapy, sequential testing should be performed to confirm baseline values. Performed By: #### L 100.0100, L500.2500 #### [facility] [address] [place], [address] Potassium measurement (mass/ volume)Ordered By: Pratibha Ronquillo on 01-14-2025 Potassium (Unsp spec) [Mass/Vol] 4.6 mmol/L 3.3-5.1 [facility] Comment on above: Hemolysis present, R esults could be affected. Screening total cholesterol/ high density lipoprotein (HDL) cholesterol ratioOrdered By: Pratibha Ronquillo on 01-14-2025 Cholesterol.total/Misty sterol in HDL [Mass ratio] 5.19 {ratio} [facility] Serum creatinine measurement (mass/volume)Ordered By: Pratibha Ronquillo on 01-14-2025 Creatinine [Mass/Vol] 1.02 mg/dL Normal 0.70-1.20 [facility] Comment on above: Order Comment: DR.PM BONILLA ORDERED LIPID AND LIVERDR.LINDA ORDERED CMP, LIPID, PSA Performed By: #### L 100.0100, L500.2500 #### [facility] [address] [place], [address] Serum globulin measurementOr dered By: Pratibha Ronquillo on 01-14-2025 Globulin (S) [Mass/Vol] 2.8 g/dL Normal 2.2-4.2 [facility] Comment on above: Order Comment: DR.PM BONILLA ORDERED LIPID AND LIVERDR.LINDA ORDERED CMP, LIPID, PSA Performed By: #### L 100.0100, L500.2500 #### [facility] [address] [place], [address] Serum glucose measurement (m ass/volume)Ordered By: Pratibha Ronquillo on 01-14-2025 Glucose [Mass/Vol] 92 mg/dL Normal 70-99 [facility] Comment on above: Order Comment: DR.PM BONILLA ORDERED LIPID AND LIVERDR.LINDA ORDERED CMP, LIPID, PSA Performed By: #### L 100.0100, L500.2500 #### [facility] [address] [place], [address] Serum or plasma alanine mccoy otransferase (ALT) measurementOrdered By: Pratibha Ronquillo on 01-14-2025 ALT [Catalytic activity/Vol] 27 U/L Normal <=46 [facility] Comment on above: Order Comment: DR.PM BONILLA ORDERED LIPID AND LIVERDR.LINDA ORDERED CMP, LIPID, PSA Performed By: #### L 100.0100, L500.2500 #### [facility] [address] [place], [address] Serum or plasma albumin jimy urement (mass/volume)Ordered By: Pratibha Ronquillo on 01-14-2025 Albumin [Mass/Vol] 4.2 g/dL Normal 3.4-4.8 [facility] Comment on above: Order Comment: DR.PM BONILLA ORDERED LIPID AND LIVERDR.LINDA ORDERED CMP, LIPID, PSA Performed By: #### L 100.0100, L500.2500 #### [facility] [address] [place], [address] Serum or plasma albumin/glob ulin mass ratioOrdered By: Pratibha Ronquillo on 01-14-2025 Albumin/Globulin [Mass ratio] 1.5 {ratio} Normal 0.9-2.4 [facility] Comment on above: Order Comment: DR.PM BONILLA ORDERED LIPID AND LIVERDR.LINDA ORDERED CMP, LIPID, PSA Performed By: #### L 100.0100, L500.2500 #### [facility] [address] [facility] [address] Serum or plasma alkaline richardson sphatase measurementOrdered By: Pratibha Ronquillo on 01-14-2025 ALP [Catalytic activity/Vol] 85 U/L 40-129 [facility] Serum or plasma calcium jimy urement (mass/volume)Ordered By: Pratibha Ronquillo on 01-14-2025 Calcium [Mass/Vol] 9.7 mg/dL Normal 7.6-11.0 [facility] Comment on above: Order Comment: DR.PM BONILLA ORDERED LIPID AND LIVERDR.LINDA ORDERED CMP, LIPID, PSA Performed By: #### L 100.0100, L500.2500 #### [facility] [address] [place], [address] Serum or plasma cholesterol in HDL measurement (mass/volume)Ordered By: Pratibha Ronquillo on 01-14-2025 Cholesterol in HDL [Mass/Vol] 38 mg/dL Low [facility] Comment on above: National Cholesterol Education Program (NCEP) guidelines:<40 mg/dL: Low HDL-cholesterol (major risk factor for CHD)>= 60 mg/dL: High HDL-cholesterol (negative risk factor for CHD)HDL-cholesterol is affected by a number of factors, e.g. smoking, exercise, hormones, sex and age. Order Comment: DR.PM BONILLA ORDERED LIPID AND LIVERDRJACKY ORDERED CMP, LIPID, PSA Result Comment: Sonali onal Cholesterol Education Program (NCEP) guidelines: <40 mg/dL: Low HDL-cholesterol (major risk factor for CHD) >= 60 mg/dL: High HDL-cholesterol (negative risk factor for CHD) HDL-cholesterol is affected by a number of factors, e.g. smoking, exercise, hormones, sex and age. Performed By: #### L 100.0100, L500.2500 #### [facility] [address] [place], [place], [id number] Serum or plasma cholesterol measurement (mass/volume)Ordered By: Pratibha Ronquillo on 01-14-2025 Cholesterol [Mass/Vol] 196 mg/dL Normal <=200 [facility] Comment on above: Cholesterol level, D esirable <200 mg/dLBorderline high cholesterol 200-239 mg/dLHigh cholesterol >=240 mg/dLRecommendations of the NCEP Adult Treatment Panel for the following risk-cutoff thresholds for the [place] population. Order Comment: DR.PM BONILLA ORDERED LIPID AND LIVERDRJACKY ORDERED CMP, LIPID, PSA Result Comment: Chol esterol level, Desirable <200 mg/dL Borderline high cholesterol 200-239 mg/dL High cholesterol >=240 mg/dL Recommendations of the NCEP Adult Treatment Panel for the following risk-cutoff thresholds for the [place] population. Performed By: #### L 100.0100, L500.2500 #### [facility] [address] [place], [place], [id number] Serum or plasma urea nitroge n measurement (mass/volume)Ordered By: Pratibha Ronquillo on 01-14-2025 Urea nitrogen [Mass/Vol] 16 mg/dL Normal 4-19 [facility] Comment on above: Order Comment: DR.PM BONILLA ORDERED LIPID AND LIVERDRJACKY ORDERED CMP, LIPID, PSA Performed By: #### L 100.0100, L500.2500 #### [facility] [address] [place], [address] Sodium levelOrdered By: Pratibha Ronquillo on 01-14-2025 Sodium [Moles/Vol] 139 mmol/L Normal 133-145 [facility] Comment on above: Order Comment: DR.PM BONILLA ORDERED LIPID AND LIVERDR.LINDA ORDERED CMP, LIPID, PSA Performed By: #### L 100.0100, L500.2500 #### [facility] [address] [place], [address] Total proteinOrdered By: Suni Ronquillo on 01-14-2025 Protein [Mass/Vol] 7.0 g/dL 5.9-8.4 [facility] Triglycerides measurementOrd ered By: Pratibha Ronquillo on 01-14-2025 Triglyceride [Mass/Vol] 358 mg/dL High [facility] Comment on above: The drugs N-Acetylcy steine and Metamizole may falsely depress this assay. Normal range: <150 mg/dLBorderline High: 150-199 mg/dLHigh: 200-499 mg/dLVery High: >500 mg/dL Order Comment: DR.PM BONILLA ORDERED LIPID AND LIVERDR.LINDA ORDERED CMP, LIPID, PSA Result Comment: The drugs N-Acetylcysteine and Metamizole may falsely depress this assay. Normal range: <150 mg/dL Borderline High: 150-199 mg/dL High: 200-499 mg/dL Very High: >500 mg/dL Performed By: #### L 100.0100, L500.2500 #### [facility] [address] [place], [address] Absolute lymphocyte countOrd ered By: Pratibha Ronquillo on 01-13-2025 Lymphocytes Auto (Unsp spec) [#/Vol] 2.78 10*3/uL 0.83-4.51 [facility] Absolute neutrophil countOrd ered By: Pratibha Ronquillo on 01-13-2025 Neutrophils (Bld) [#/Vol] 7.3 10*3/uL 2.0-7.7 [facility] Automated lymphocyte count a s percentage of total leukocytesOrdered By: Pratibha Ronquillo on 01-13-2025 Lymphocytes/100 WBC Auto (Unsp spec) 22.6 % 19-41 [facility] Basophil percentageOrdered B y: Pratibha Ronquillo on 01-13-2025 Basophils/100 WBC (Bld) 0.8 % 0-1 [facility] CBC W/Diff, Automatedon Absolute Lymph 2.78 X10 3/uL Normal 0.83-4.51 [facility] Comment on above: Performed By: #### L 500.4050, L100.0100, L501.9910, L500.4100 #### [facility] [address] [place], [address] Absolute Neut 7.3 X10 3/uL Normal 2.0-7.7 [facility] Comment on above: Performed By: #### L 500.4050, L100.0100, L501.9910, L500.4100 #### [facility] [address] [place], [address] Basophils/100 WBC (Bld) 0.8 % Normal 0-1 [facility] Comment on above: Performed By: #### L 500.4050, L100.0100, L501.9910, L500.4100 #### [facility] [address] [place], [address] Eosinophils/100 WBC (Bld) 7.1 % High 0-5 [facility] Comment on above: Performed By: #### L 500.4050, L100.0100, L501.9910, L500.4100 #### [facility] [address] [place], [address] Erythrocyte distribution width (RBC) [Ratio] 13.1 % Normal 11.6-14.6 [facility] Comment on above: Performed By: #### L 500.4050, L100.0100, L501.9910, L500.4100 #### [facility] [address] [place], [address] Hematocrit (Bld) [Volume fraction] 46.8 % Normal 40-54 [facility] Comment on above: Performed By: #### L 500.4050, L100.0100, L501.9910, L500.4100 #### [facility] [address] [place], [address] Hemoglobin (Bld) [Mass/Vol] 16.3 g/dL Normal 13.0-16.5 [facility] Comment on above: Performed By: #### L 500.4050, L100.0100, L501.9910, L500.4100 #### [facility] [address] [place], [address] IG% 0.700 Normal 0.0-0.9 [facility] Comment on above: Result Comment: IG% - Immature Granulocytes (promyelocytes, myelocytes and metamyelocytes) > 1% indicates that a LEFT SHIFT is Present. Performed By: #### L 500.4050, L100.0100, L501.9910, L500.4100 #### [facility] [address] [place], [address] Lymphocytes/100 WBC (Bld) 22.6 % Normal 19-41 [facility] Comment on above: Performed By: #### L 500.4050, L100.0100, L501.9910, L500.4100 #### [facility] [address] [place], [address] MCH (RBC) [Entitic mass] 30.9 pg Normal 27.0-32.0 [facility] Comment on above: Performed By: #### L 500.4050, L100.0100, L501.9910, L500.4100 #### [facility] [address] [place], [address] MCHC (RBC) [Mass/Vol] 34.8 g/dL Normal 32-36 [facility] Comment on above: Performed By: #### L 500.4050, L100.0100, L501.9910, L500.4100 #### [facility] [address] [place], [address] MCV (RBC) [Entitic vol] 88.6 fL Normal 80-94 [facility] Comment on above: Performed By: #### L 500.4050, L100.0100, L501.9910, L500.4100 #### [facility] [address] [place], [address] Monocytes/100 WBC (Bld) 9.6 % Normal 0-10 [facility] Comment on above: Performed By: #### L 500.4050, L100.0100, L501.9910, L500.4100 #### [facility] [address] [place], [address] Neutrophils/100 WBC (Bld) 59.2 % Normal 47-70 [facility] Comment on above: Performed By: #### L 500.4050, L100.0100, L501.9910, L500.4100 #### [facility] [address] [place], [address] Nucleated RBC (Bld) [#/Vol] 0 10*3/uL Normal 0-5 [facility] Comment on above: Performed By: #### L 500.4050, L100.0100, L501.9910, L500.4100 #### [facility] [address] [place], [address] Platelet mean volume (Bld) [Entitic vol] 8.6 fL Normal 6.2-12.0 [facility] Comment on above: Performed By: #### L 500.4050, L100.0100, L501.9910, L500.4100 #### [facility] [address] [place], [address] Platelets (Bld) [#/Vol] 262 10*3/uL Normal 150-450 [facility] Comment on above: Performed By: #### L 500.4050, L100.0100, L501.9910, L500.4100 #### [facility] [address] [place], [address] RBC (Bld) [#/Vol] 5.28 10*6/uL Normal 4.6-6.2 [facility] Comment on above: Performed By: #### L 500.4050, L100.0100, L501.9910, L500.4100 #### [facility] [address] [place], [address] RDW SD 42.5 fl Normal 35.1-43.9 [facility] Comment on above: Performed By: #### L 500.4050, L100.0100, L501.9910, L500.4100 #### [facility] [address] [place], [address] WBC (Bld) [#/Vol] 12.3 10*3/uL High 4.4-11.0 [facility] Comment on above: Performed By: #### L 500.4050, L100.0100, L501.9910, L500.4100 #### [facility] [address] [place], [address] Comprehensive Metabolic Prof ilon 01-13-2025 ALB Normal 3.4-4.8 [facility] Comment on above: Result Comment: This specimen has been REJECTED due to Laboratory criteria: Hemolyzed. STARR FARRIS has been notified of need of recollection. 01/13/25 1101 Luis Leos Performed By: #### L 100.0100, L500.2500 #### [facility] [address] [place], [address] ALK PHOS Normal 40-129 [facility] Comment on above: Result Comment: This specimen has been REJECTED due to Laboratory criteria: Hemolyzed. STARR COCHRANERHOFF has been notified of need of recollection. 01/13/25 110 Luis L White Performed By: #### L 100.0100, L500.2500 #### [facility] [address] [place], [address] ALT Normal <=46 [facility] Comment on above: Result Comment: This specimen has been REJECTED due to Laboratory criteria: Hemolyzed. STARR BRENTON has been notified of need of recollection. 01/13/25 110 Luis L White Performed By: #### L 100.0100, L500.2500 #### [facility] [address] [place], [address] AST Normal <=37 [facility] Comment on above: Result Comment: This specimen has been REJECTED due to Laboratory criteria: Hemolyzed. STARR BRENTON has been notified of need of recollection. 01/13/25 110 Luis L White Performed By: #### L 100.0100, L500.2500 #### [facility] [address] [place], [address] BUN Normal 4-19 [facility] Comment on above: Result Comment: This specimen has been REJECTED due to Laboratory criteria: Hemolyzed. STARR BRENTON has been notified of need of recollection. 01/13/251100 Luis L White Performed By: #### L 100.0100, L500.2500 #### [facility] [address] [place], [address] BUN/CRE Normal 10-20 [facility] Comment on above: Result Comment: This specimen has been REJECTED due to Laboratory criteria: Hemolyzed. STARR BRENTON has been notified of need of recollection. 01/13/25 110 Luis L White Performed By: #### L 100.0100, L500.2500 #### [facility] [address] [place], [address] Calcium Normal 7.6-11.0 [facility] Comment on above: Result Comment: This specimen has been REJECTED due to Laboratory criteria: Hemolyzed. STARR FARRIS has been notified of need of recollection. 01/13/25 1101 Luis L White Performed By: #### L 100.0100, L500.2500 #### [facility] [address] [place], [address] CL Normal 98-108 [facility] Comment on above: Result Comment: This specimen has been REJECTED due to Laboratory criteria: Hemolyzed. STARR FARRIS has been notified of need of recollection. 01/13/25 110 Luis L White Performed By: #### L 100.0100, L500.2500 #### [facility] [address] [place], [address] CO2 Normal 21.0-32.0 [facility] Comment on above: Result Comment: This specimen has been REJECTED due to Laboratory criteria: Hemolyzed. STARR FARRIS has been notified of need of recollection. 01/13/25 110 Luis L White Performed By: #### L 100.0100, L500.2500 #### [facility] [address] [place], [address] CREAT,SERUM Normal 0.70-1.20 [facility] Comment on above: Result Comment: This specimen has been REJECTED due to Laboratory criteria: Hemolyzed. STARR FARRIS has been notified of need of recollection. 01/13/25 110 Luis L White Performed By: #### L 100.0100, L500.2500 #### [facility] [address] [place], [address] eGFR Normal >60 [facility] Comment on above: Result Comment: This specimen has been REJECTED due to Laboratory criteria: Hemolyzed. STARR FARRIS has been notified of need of recollection. 01/13/25 110 Luis L White Performed By: #### L 100.0100, L500.2500 #### [facility] [address] [place], [address] GAP Normal 5-15 [facility] Comment on above: Result Comment: This specimen has been REJECTED due to Laboratory criteria: Hemolyzed. STARR FARRIS has been notified of need of recollection. 01/13/25 110 Luis L White Performed By: #### L 100.0100, L500.2500 #### [facility] [address] [place], [address] GLU Normal 70-99 [facility] Comment on above: Result Comment: This specimen has been REJECTED due to Laboratory criteria: Hemolyzed. STARR FARRIS has been notified of need of recollection. 01/13/25 110 Luis L White Performed By: #### L 100.0100, L500.2500 #### [facility] [address] [place], [address] Potassium Normal 3.3-5.1 [facility] Comment on above: Result Comment: This specimen has been REJECTED due to Laboratory criteria: Hemolyzed. STARR FARRIS has been notified of need of recollection. 01/13/25 110 Luis L White Performed By: #### L 100.0100, L500.2500 #### [facility] [address] [place], [address] T BILI Normal 0.00-1.30 [facility] Comment on above: Result Comment: This specimen has been REJECTED due to Laboratory criteria: Hemolyzed. STARR FARRIS has been notified of need of recollection. 01/13/25 110 Luis L White Performed By: #### L 100.0100, L500.2500 #### [facility] [address] [place], [place], [address] T PROT Normal 5.9-8.4 [facility] Comment on above: Result Comment: This specimen has been REJECTED due to Laboratory criteria: Hemolyzed. STARR HERNANDEZHOFF has been notified of need of recollection. 01/13/25 1101 Luis L White Performed By: #### L 100.0100, L500.2500 #### [facility] [address] [place], [address] Comprehensive Metabolic Profil Normal 133-145 [facility] Comment on above: Result Comment: This specimen has been REJECTED due to Laboratory criteria: Hemolyzed. STARR POSTBRENTON has been notified of need of recollection. 01/13/25 110 Luis L White Performed By: #### L 100.0100, L500.2500 #### [facility] [address] [place], [address] Eosinophil percentageOrdered By: Pratibha Ronquillo on 01-13-2025 Eosinophils/100 WBC (Bld) 7.1 % High 0-5 [facility] Erythrocyte distribution wid th ratioOrdered By: Pratibha Ronquillo on 01-13-2025 Erythrocyte distribution width (RBC) [Ratio] 13.1 % 11.6-14.6 [facility] Erythrocyte distribution wid th standard deviationOrdered By: Pratibha Ronquillo on 01-13-2025 Erythrocyte distribution width (RBC) [Ratio] 42.5 fl 35.1-43.9 [facility] Hematocrit Auto (Bld) [Volum e fraction]Ordered By: Pratibha Ronquillo on 01-13-2025 Hematocrit (Bld) [Volume fraction] 46.8 % 40-54 [facility] Hemoglobin measurementOrdere d By: Pratibha Ronquillo on 01-13-2025 Hemoglobin (Bld) [Mass/Vol] 16.3 g/dL 13.0-16.5 [facility] Immature granulocytes/100 WB C Auto (Bld)Ordered By: Pratibha Ronquillo on 01-13-2025 Immature granulocytes/100 WBC (Bld) 0.700 % 0.0-0.9 [facility] Comment on above: IG% - Immature Granu locytes (promyelocytes, myelocytes and metamyelocytes) > 1% indicates that a LEFT SHIFT is Present. Lipid Profileon 01-13-2025 CHOL:HDL 4.59 Normal [facility] Comment on above: Result Comment: This specimen has been REJECTED due to Laboratory criteria: Hemolyzed. STARR FARRIS has been notified of need of recollection. 01/13/25 1101 Luis Leos Performed By: #### L 500.4050, L100.0100, L501.9910, L500.4100 #### [facility] [address] [place], [address] Cholesterol [Mass/Vol] 181 mg/dL Normal <=200 [facility] Comment on above: Result Comment: This specimen has been REJECTED due to Laboratory criteria: Hemolyzed. STARR FARRIS has been notified of need of recollection. 01/13/251100 Luis Leos Cholesterol level, Desirable <200 mg/dL Borderline high cholesterol 200-239 mg/dL High cholesterol >=240 mg/dL Recommendations of the NCEP Adult Treatment Panel for the following risk-cutoff thresholds for the [place] population. Performed By: #### L 500.4050, L100.0100, L501.9910, L500.4100 #### [facility] [address] [place], [address] Cholesterol in HDL [Mass/Vol] 39 mg/dL Low [facility] Comment on above: Result Comment: This specimen has been REJECTED due to Laboratory criteria: Hemolyzed. STARR FARRIS has been notified of need of recollection. 01/13/25 1101 Luis Leos National Cholesterol Education Program (NCEP) guidelines: <40 mg/dL: Low HDL-cholesterol (major risk factor for CHD) >= 60 mg/dL: High HDL-cholesterol (negative risk factor for CHD) HDL-cholesterol is affected by a number of factors, e.g. smoking, exercise, hormones, sex and age. Performed By: #### L 500.4050, L100.0100, L501.9910, L500.4100 #### [facility] [address] [place], [address] Cholesterol in LDL [Mass/Vol] 92 mg/dL Normal [facility] Comment on above: Result Comment: This specimen has been REJECTED due to Laboratory criteria: Hemolyzed. STARR FARRIS has been notified of need of recollection. 01/13/25 1101 Luis L White Bxgaygyqiv=961-056 mg/dL Higher Vmtg=266 mg/dL or greater Performed By: #### L 500.4050, L100.0100, L501.9910, L500.4100 #### [facility] [address] [place], [address] Cholesterol in VLDL [Mass/Vol] 50 mg/dL High 5-40 [facility] Comment on above: Result Comment: This specimen has been REJECTED due to Laboratory criteria: Hemolyzed. STARR FARRIS has been notified of need of recollection. 01/13/25 1101 Luis Asif White Performed By: #### L 500.4050, L100.0100, L501.9910, L500.4100 #### [facility] [address] [place], [address] Triglyceride [Mass/Vol] 250 mg/dL High [facility] Comment on above: Result Comment: This specimen has been REJECTED due to Laboratory criteria: Hemolyzed. STARR FARRIS has been notified of need of recollection. 01/13/25 1101 Luis Yefri White The drugs N-Acetylcysteine and Metamizole may falsely depress this assay. Normal range: <150 mg/dL Borderline High: 150-199 mg/dL High: 200-499 mg/dL Very High: >500 mg/dL Performed By: #### L 500.4050, L100.0100, L501.9910, L500.4100 #### [facility] [address] [place], [address] MCV (mean corpuscular volume ) determinationOrdered By: Pratibha Ronquillo on 01-13-2025 MCV (RBC) [Entitic vol] 88.6 fL 80-94 [facility] Mean corpuscular hemoglobin (MCH) determinationOrdered By: Pratibha Ronquillo on 01-13-2025 MCH (RBC) [Entitic mass] 30.9 pg 27.0-32.0 [facility] Mean corpuscular hemoglobin concentration (MCHC) determinationOrdered By: Pratibha Ronquillo on 01-13-2025 MCHC (RBC) [Mass/Vol] 34.8 g/dL 32-36 [facility] Mean platelet volume determi nationOrdered By: Pratibha Ronquillo on 01-13-2025 Platelet mean volume (Bld) [Entitic vol] 8.6 fL 6.2-12.0 [facility] Monocyte percentageOrdered B y: Pratibha Ronquillo on 01-13-2025 Monocytes/100 WBC (Bld) 9.6 % 0-10 [facility] Neutrophil percentageOrdered By: Praitbha Ronquillo on 01-13-2025 Neutrophils/100 WBC (Bld) 59.2 % 47-70 [facility] Nucleated red blood cell per centageOrdered By: Pratibha Ronquillo on 01-13-2025 Nucleated RBC/100 WBC (Bld) [Ratio] 0 % 0-5 [facility] PSA,Total - Annual Screenon 01-13-2025 PSA,TOT SCREEN 2.08 ng/mL Normal 0.02-4.00 [facility] Comment on above: Order Comment: This specimen has been REJECTED due to Laboratory criteria: Hemolyzed. STARR FARRIS has been notified of need of recollection. 01/13/25 1101 Luis Leos Result Comment: This specimen has been REJECTED due to Laboratory criteria: Hemolyzed. STARR FARRIS has been notified of need of recollection. 01/13/25 1101 Luis Leos This test was performed using the [employer] tPSA method. Measured values of a patient??sample can vary depending on the testing procedure used. PSA values determined on patient samples by different testing procedures cannot be used interchangeably. If there is a change in PSA assays while monitoring therapy, sequential testing should be performed to confirm baseline values. Performed By: #### L 500.4050, L100.0100, L501.9910, L500.4100 #### [facility] [address] [place], [place], [address] Platelet countOrdered By: Daniel Ronquillo on 01-13-2025 Platelets (Bld) [#/Vol] 262 10*3/uL 150-450 [facility] RBC Auto (Bld) [#/Vol]Ordere d By: Pratibha Ronquillo on 01-13-2025 RBC (Bld) [#/Vol] 5.28 10*6/uL 4.6-6.2 [facility] White blood cell (WBC) count Ordered By: Pratibha Ronquillo on 01-13-2025 WBC (Bld) [#/Vol] 12.3 10*3/uL High 4.4-11.0 [facility] Nasopharyngeal Cultureon NAC #1 Trimeth/Sulfa, Chloramphenicol, Cefotaxime, Ciprofloxacin, Amoxicillin/Clavulanic Acid, and Oral 2nd/3rd Generation Cephalosporins are effective against both Beta-Lactamase positive and Beta-Lactamase negative isolates. Nasopharyngeal Culture #2 Susceptibility not normally performed on this organism. Nasopharyngeal Culture Nasopharyngeal Culture Nasopharyngeal Culture Haemophilus influenzae Amount Growth 2+ Beta Lactamase-Reportable Positive AHAE Amount Growth 1+ Normal [facility] Comment on above: Performed By: #### L 100.0100, L500.2500 #### [facility] [address] [place], [address] Gram Stainon 12-10-2024 GS Positive Normal [facility] Comment on above: Performed By: #### L 100.0100, L500.2500 #### [facility] [address] [place], [address] Gram stainOrdered By: Omar espino on 12-09-2024 Microscopic observation Gram stain Nom (Unsp spec) [facility] Nasopharyngeal cultureOrdere d By: Omar Tian on 12-09-2024 Respiratory microbial culture Arcanobacterium haemolyticum Abnormal [facility] TMJ/Bilaton 07-09-2024 TMJ/Bilat [facility] Imaging Services [address] [place] [address] TMJ/Bilat MR#: [id number] Acct: [id number] Name: MEIR LANDRUM Rep #: [id number] : 1955 M 69 From: Ruben Fonseca PCP: Dr. Pratibha Ronquillo, DO Status: REG CLI Study: TMJ/Bilat Date of Exam: 07/09/24 Exam# [id number] Ordering Dr: Samantha Woodard [employer]C [id number] STUDY: MRI TEMPOROMANDIBULAR JOINTS REASON FOR EXAM: Male, 69 years old. ASSESS RT TMJ FOR ABNORMALITIES, PREV RT TMJ SURGERY TECHNIQUE: Standardized fat and water weighted pulse sequences were obtained in all 3 orthogonal planes. COMPARISON: None. FINDINGS: Left TMJ: In the closed-mouth position, the left mandibular condyle is normally positioned in the mandibular fossa. 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 There is meniscal degeneration with intrasubstance signal alteration and diffuse attrition. There is anterior dislocation of the meniscus of the left temporomandibular joint in the closed mouth position. There is no demonstrated joint effusion. There is limited forward translation of the mandibular condyle on the open mouth position, which does not come to rest under the articular eminence. There is a persistent displacement of the meniscus without recapture of the meniscus in the open mouth position. Right TMJ: In the closed-mouth position, the right mandibular condyle is normally positioned in the mandibular fossa. There is severe osteoarthritis of the right mandibular condyle with a reduction in the size of the condyle, articular flattening, cortical loss, cavitation of the subchondral bone, narrowing of the joint space and osteoarthritic spurring. There is meniscal degeneration with intrasubstance signal alteration and diffuse attrition. There is anterior dislocation of the meniscus of the right temporomandibular joint in the closed mouth position. There is no demonstrated joint effusion. There is limited forward translation of the mandibular condyle on the open mouth position, which does not come to rest under the articular eminence. There is a persistent displacement of the meniscus without recapture of the meniscus in the open mouth position. MRI/TMJ/Bilat IMPRESSION: Severe DJD bilateral TMJs. Meniscus is not well visualized but appears to be anteriorly displaced bilaterally on open and closed views. Electronically Signed: Ruben Norwood MD at 19:14 EDT , CC: VIOLETTE Woodard; Dr. Pratibha Ronquillo DO Instructional Consultant: Signed [facility] XR Shoulder - left 2 Viewson 03-16-2024 IMPRESSION: Status post conventional left shoulder total arthroplasty. Hardware appears intact. Anterior subluxation of the humeral component relative to the glenoid component on the axillary view. No acute osseous abnormality. OLOGY EXAM: XR SHOULDER LE FT 2+ VIEWS, 03/16/2024 09:18 AM CLINICAL INDICATIONS: Left Shoulder Pain RELEVANT CLINICAL HISTORY: Z98.890:S/P shoulder surgery [facility], [facility], Axillary, Scap Y; COMPARISON: March 17, 2023 FINDINGS: 4 images obtained. Soft Tissue: No soft tissue swelling evident. Bone: No acute osseous abnormality is identified. Joint: Status post glenohumeral joint total arthroplasty. Hardware appears intact. Anterior subluxation of the humeral component relative to the glenoid component on the axillary view. Acromioclavicular joint is anatomically aligned. RADIOLOGY Oliverio Jay MD - 03/16/2024 EXAM: XR SHOULDER LEFT 2+ VIEWS, 03/16/2024 09:18 AM CLINICAL INDICATIONS: Left Shoulder Pain RELEVANT CLINICAL HISTORY: Z98.890:S/P shoulder surgery [facility], [facility], Axillary, Scap Y; COMPARISON: March 17, 2023 FINDINGS: 4 images obtained. Soft Tissue: No soft tissue swelling evident. Bone: No acute osseous abnormality is identified. Joint: Status post glenohumeral joint total arthroplasty. Hardware appears intact. Anterior subluxation of the humeral component relative to the glenoid component on the axillary view. Acromioclavicular joint is anatomically aligned. IMPRESSION IMPRESSION: Status post conventional left shoulder total arthroplasty. Hardware appears intact. Anterior subluxation of the humeral component relative to the glenoid component on the axillary view. No acute osseous abnormality. [facility] Radiology Study observation (narrative) [facility] XR Shoulder - left 2 ViewsOr dered By: Oliverio Jay on 03-16-2024 [facility] Work Phone: Gram stain for investigation of transfusion reactionOrdered By: Omar Tian on 12-25-2023 Microscopic observation Gram stain Nom (Unsp spec) [facility] No Panel InformationOrdered By: Omar Tian on 12-25-2023 Nasopharyngeal Culture Klebsiella pneumo niae sp pneum [facility] Cardiac echo study Procedure Ordered By: Nasim Chen on 09-03-2023 Ao ASC index 1.60 cm/m2 [facility] Work [facility]: Ao peak jon 1.00 m/s [facility] Work Phone: Ao SOV index 1.67 cm/m2 [facility] Work Phone: Ao STJ index 1.42 cm/m2 [facility] Work Phone: Ao VTI 20.59 cm [facility] Work Phone: Ascending aorta 3.40 cm [facility] Work Phone: [phone] AV LVOT peak gradient 3 mmHg [facility] Work Phone: AV mean gradient 2 mmHg [facility] Work Phone: [phone] AV peak gradient 4 mmHG [facility] Work Phone: [phone] AV valve area 3.34 cm2 [facility] Work Phone: [phone] AV Velocity Ratio 0.[address] [facility] Work Phone: [phone] MERCEDES (continuity Vmax) 3.38 cm2 [facility] Work Phone: [phone] MERCEDES (continuity VTI) 3.34 cm2 [facility] Work Phone: [phone] MERCEDES index (continuity Vmax) 1.58 m/s [facility] Work Phone: [phone] MERCEDES index (continuity VTI) 1.57 cm2/m2 [facility] Work Phone: [phone] Avg e' pk jon 0.09 m/s [facility] Work Phone: [phone] Avg E/e' ratio 6.53 [facility] Work Phone: [phone] Body surface area Derived from formula 2.13 m2 [facility] Work Phone: [phone] BP EF 51 % [facility] Work Phone: [phone] DI (Vmax) 0.82 [facility] Work Phone: [phone] DI (VTI) 0.81 m/2 [facility] Work Phone: [phone] E wave decelartion time 193.38 msec [facility] Work Phone: [phone] e' lateral pk jon 0.0953 m/s [facility] Work Phone: [phone] e' lateral pk jon 0.10 m/s [facility] Work Phone: [phone] e' septal pk jon 0.0888 m/s [facility] Work Phone: [phone] e' septal pk jon 0.09 m/s [facility] Work Phone: [phone] E/A ratio 0.90 [facility] Work Phone: [phone] E/e' lateral ratio 6.30 [facility] Work Phone: [phone] E/e' septal ratio 6.76 [facility] Work Phone: [phone] EF SP 2CH 58 [facility] Work Phone: [phone] EF SP 4CH 45 [facility] Work Phone: [phone] EST RAP 3.00 mmHg [facility] Work Phone: [phone] EST RVSP 23 mmHg [facility] Work Phone: [phone] FS 17 % Abnormal 28 - 44 % [facility] Work Phone: [phone] Interpretation and review of laboratory results Abnormal [facility] Work Phone: [phone] IVC ostium 1.85 cm [facility] Work Phone: [phone] IVS 0.75 cm [facility] Work Phone: [phone] LA AREA 2CH 13.64 cm2 [facility] Work Phone: [phone] LA area 4CH 15.60 cm2 [facility] Work Phone: [phone] LA ESV BP (MOD) [facility]: LA ESV BP (MOD) index 17 mL/m2 [facility] Work Phone: [phone] LA ESV SP 2CH (MOD) 32 mL [facility] Work Phone: LA ESV SP 4CH (MOD) 42 mL [facility] Work Phone: LV EDV BP 105 mL [facility] Work Phone: [phone] LV EDV SP 2CH 106 mL [facility] Work Phone: [phone] LV EDV SP 4CH 100 mL [facility] Work Phone: [phone] LV ESV BP 51 mL [facility] Work Phone: [phone] LV ESV SP 2CH 44 mL [facility] Work Phone: [phone] LV ESV SP 4CH 55 mL [facility] Work Phone: [phone] LV mass 108.30 g [facility] Work Phone: [phone] LV Mass Index 50.8 g/m2 [facility] Work Phone: [phone] LV RWT 0.34 [facility] Work Phone: [phone] LV stroke volume BP (ml) 54 mL [facility] Work Phone: [phone] LV stroke volume index BP 25.35 mL/m2 [facility] Work Phone: [phone] LVIDD 4.55 cm [facility] Work Phone: [phone] LVIDS 3.78 cm [facility] Work Phone: [phone] LVOT area 4.12 cm2 [facility] Work Phone: [phone] LVOT diameter 2.29 cm [facility] Work Phone: [phone] LVOT peak jon 0.82 m/s [facility] Work Phone: [phone] LVOT peak VTI 16.69 cm [facility] Work Phone: [phone] LVOT stroke volume 69 cm3 [facility] Work Phone: [phone] LVOT stroke volume index 32.26 ml/m2 [facility] Work Phone: [phone] MV mean gradient 1.00 mmHg [facility] Work Phone: [phone] MV pk A jon 0.67 m/s [facility] Work Phone: [phone] MV pk E jon 0.60 m/s [facility] Work Phone: [phone] MV stenosis pressure 1/2 time 56.08 ms [facility] Work Phone: [phone] MV valve area by continuity eq 3.01 cm2 [facility] Work Phone: [phone] MV valve area p 1/2 method 3.92 cm2 [facility] Work Phone: [phone] MV VTI 22.80 cm [facility] Work Phone: [phone] [facility] AV VTI RATIO PRE STRESS 0.81 [facility] Work Phone: [phone] [facility] ECHO LV BIPLANE SYSTOLIC VOLUME INDEX 23.94 mL/m2 [facility] Work Phone: [phone] [facility] ECHO LV BP DIASTOLIC VOLUME INDEX 49.30 mL/m2 [facility] Work Phone: [phone] PV peak gradient 2 mmHg [facility] Work Phone: [phone] PV PK JON 0.65 m/s [facility] Work Phone: [phone] PW 0.77 cm [facility] Work Phone: [phone] RA vol index 4CH (MOD) 17.37 mL/m2 [facility] Work Phone: [phone] Right atrium volume 4 chamber method of disks 37 mL [facility] Work Phone: [phone] RV Area diastolic 18.[address] [facility] Work Phone: [phone] RV Area systolic 11.20 cm2 [facility] Work Phone: RV basal diam 3.80 cm [facility] Work Phone: RV Fractional area change 38.4 % [facility] Work Phone: RV long diam 8.48 cm [facility] Work Phone: RV mid diam 2.63 cm [facility] Work Phone: RV S' 11.16 cm/s [facility] Work Phone: RVOT peak gradient [address] [facility] Work [facility]: RVOT peak jon 0.30 m/s [facility] Work Phone: Sinus 3.55 cm [facility] Work Phone: STJ 3.02 cm [facility] Work Phone: Stroke Volume 69 cm/mL [facility] Work Phone: Stroke volume index [facility]: TAPSE 2.24 cm [facility] Work Phone: TR pk grad 20 mmHg [facility] Work Phone: TR pk jon 2.24 m/s [facility] Work Phone: [facility] Work Phone: Cardiac echo study Procedure on 09-03-2023 Technically difficul t study, endocardium not well seen Normal left ventricular size and low normal systolic function. LVEF of 50-55%. Proximal anteroseptum appears hypekinetic. Normal diastolic function Normal right ventricular size and systolic function No significant valvular abnormalities RVSP of 23 mmHg Left Ventricle Chamber size is normal. Normal wall thickness. Normal global systolic function. Wall motion abnormality: See wall scoring diagram. Ejection fraction is low normal (50-55%). Diastolic function is normal. Right Ventricle Chamber size is normal. Systolic function is normal. Left Atrium Chamber size is normal. Right Atrium Chamber size is normal. IVC/SVC The inferior vena cava is normal in size. Mitral Valve Non-specific leaflet thickening. Leaflet mobility is normal. Trace regurgitation. No valve stenosis. Tricuspid Valve Normal leaflets. Leaflet mobility is normal. Trace regurgitation. No stenosis. Estimated right ventricular systolic pressure is 23 mmHg. Aortic Valve Trileaflet valve. Leaflet calcification of the right coronary cusp (RCC). Leaflet mobility is normal. No regurgitation. No stenosis. Pulmonic Valve Pulmonic valve not well visualized. No regurgitation. No stenosis. Pericardium An echo density consistent with a fat pad is present. No pericardial effusion. Septum The atrial septum is normal. Aorta No dilation to extent seen. SOV: 3.55 cm. Ascendin.40 cm. Study Details A complete echocardiography study was performed. Imaging system used: [facility]. Indications Indications for study: CAD. Wall Scoring Score Index: 1.06 The following segments are hypokinetic: basal anteroseptal. All other segments are normal. [facility] [facility] Radiology Study observation (narrative) [facility] XR Shoulder - left 2 Viewson 03-17-2023 IMPRESSION: Stable anatomic left total shoulder arthroplasty. OLOGY EXAM: XR SHOULDER LE FT 4 VIEWS, 03/17/2023 10:24 AM CLINICAL INDICATIONS: pain RELEVANT CLINICAL HISTORY: Z98.890:S/P shoulder surgery Scap Y, Axillary, Grashey-ER, AP-IR; COMPARISON: Radiographs dated December 02, 2022. FINDINGS: 4 images obtained. Soft Tissue: No soft tissue swelling evident. Bone: No acute osseous abnormality is identified. Joint: Status post anatomic left total shoulder arthroplasty. No perioperative fracture or osteolysis. The components are stable in alignment. Narrowing and osteophytosis of the AC joint. RADIOLOGY Chuck Mclean DO - 03/17/2023 EXAM: XR SHOULDER LEFT 4 VIEWS, 03/17/2023 10:24 AM CLINICAL INDICATIONS: pain RELEVANT CLINICAL HISTORY: Z98.890:S/P shoulder surgery Scap Y, Axillary, Grashey-ER, AP-IR; COMPARISON: Radiographs dated December 02, 2022. FINDINGS: 4 images obtained. Soft Tissue: No soft tissue swelling evident. Bone: No acute osseous abnormality is identified. Joint: Status post anatomic left total shoulder arthroplasty. No perioperative fracture or osteolysis. The components are stable in alignment. Narrowing and osteophytosis of the AC joint. IMPRESSION IMPRESSION: Stable anatomic left total shoulder arthroplasty. [facility] Radiology Study observation (narrative) [facility] XR Shoulder - left 2 ViewsOr dered By: Chuck Mclean on 03-17-2023 [facility] Work Phone: XR Shoulder - left 2 Viewson 12-02-2022 IMPRESSION: Total left shoulder arthroplasty hardware. No acute osseous abnormality. OLOGY EXAM: XR SHOULDER LE FT 4 VIEWS, 12/02/2022 09:50 AM CLINICAL INDICATIONS: Left Shoulder Pain RELEVANT CLINICAL HISTORY: Z98.890:S/P shoulder surgery Grashey ER, AP IR, Axillary, Scap Y; COMPARISON: Left shoulder radiographs 09/30/2022 FINDINGS: 4 images obtained. Soft Tissue: No soft tissue swelling evident. Bone: No acute osseous abnormality is identified. Joint: Stable total left shoulder arthroplasty hardware. Joint is anatomically aligned with stable degenerative changes. RADIOLOGY Meir Redd MD - 12/02/2022 EXAM: XR SHOULDER LEFT 4 VIEWS, 12/02/2022 09:50 AM CLINICAL INDICATIONS: Left Shoulder Pain RELEVANT CLINICAL HISTORY: Z98.890:S/P shoulder surgery Grashey ER, AP IR, Axillary, Scap Y; COMPARISON: Left shoulder radiographs 09/30/2022 FINDINGS: 4 images obtained. Soft Tissue: No soft tissue swelling evident. Bone: No acute osseous abnormality is identified. Joint: Stable total left shoulder arthroplasty hardware. Joint is anatomically aligned with stable degenerative changes. IMPRESSION IMPRESSION: Total left shoulder arthroplasty hardware. No acute osseous abnormality. [facility] Radiology Study observation (narrative) [facility] XR Shoulder - left 2 ViewsOr dered By: Meir Redd on 12-02-2022 [facility] Work Phone: Absolute lymphocyte countOrd ered By: Dr. Ronquillo on 11-08-2022 Lymphocytes Auto (Unsp spec) [#/Vol] 2.58 10*3/uL 0.83-4.51 [facility] Basophil percentageOrdered B y: Dr. Ronquillo on 11-08-2022 Basophils/100 WBC (Bld) 1.1 % 0-1 [facility] Chloride [Moles/Vol] 103 mmol/L 98-107 [facility] Eosinophils/100 WBC (Bld) 9.8 % 0-5 [facility] Glucose [Mass/Vol] 91 mg/dL 74-106 [facility] Neutrophils (Bld) [#/Vol] 7.3 10*3/uL 2.0-7.7 [facility] Neutrophils/100 WBC (Bld) 59.4 % 47-70 [facility] Potassium [Moles/Vol] 4.3 mmol/L 3.5-5.1 [facility] Sodium [Moles/Vol] 138 mmol/L 136-145 [facility] WBC (Bld) [#/Vol] 12.3 10*3/uL 4.4-11.0 [facility] Blood erythrocytes count (nu mber/volume)Ordered By: Dr. Ronquillo on 11-08-2022 RBC (Bld) [#/Vol] 5.49 10*6/uL 4.6-6.2 [facility] Blood hemoglobin measurement (mass/volume)Ordered By: Dr. Ronquillo on 11-08-2022 Hemoglobin (Bld) [Mass/Vol] 16.7 g/dL 13.0-16.5 [facility] Blood lymphocytes/100 leukoc ytesOrdered By: Dr. Ronquillo on 11-08-2022 Lymphocytes/100 WBC (Bld) 20.9 % 19-41 [facility] Blood monocytes/100 leukocyt esOrdered By: Dr. Ronquillo on 11-08-2022 Monocytes/100 WBC (Bld) 8.0 % 0-10 [facility] Blood platelet mean volumeOr dered By: Dr. Ronquillo on 11-08-2022 Platelet mean volume (Bld) [Entitic vol] 8.5 fL 6.2-12.0 [facility] Determination of erythrocyte mean corpuscular volume (MCV)Ordered By: Dr. Ronquillo on 11-08-2022 MCV (RBC) [Entitic vol] 91.4 fL 80-94 [facility] Hematocrit Auto (Bld) [Volum e fraction]Ordered By: Dr. Ronquillo on 11-08-2022 Hematocrit (Bld) [Volume fraction] 50.2 % 40-54 [facility] Laboratory - Chemistry and C hemistry - challengeOrdered By: Dr. Ronquillo on 11-08-2022 CO2 [Moles/Vol] 27.0 mmol/L 21.0-32.0 [facility] Urea nitrogen/Creatinine [Mass ratio] 15.0 mg/mg 10-20 [facility] Laboratory - Hematology and Cell countsOrdered By: Dr. Ronquillo on 11-08-2022 Erythrocyte distribution width (RBC) [Entitic vol] 45.4 fL 35.1-43.9 [facility] Erythrocyte distribution width (RBC) [Ratio] 13.3 % 11.6-14.6 [facility] Immature granulocytes/100 WBC (Bld) 0.800 % 0.0-0.9 [facility] Comment on above: IG% - Immature Granu locytes (promyelocytes, myelocytes and metamyelocytes) > 1% indicates that a LEFT SHIFT is Present. MCH (RBC) [Entitic mass] 30.4 pg 27.0-32.0 [facility] Nucleated RBC/100 WBC (Bld) [Ratio] 0 % 0-5 [facility] MCHC Auto (RBC) [Mass/Vol]Or dered By: Dr. Ronquillo on 11-08-2022 MCHC (RBC) [Mass/Vol] 33.3 g/dL 32-36 [facility] No Panel InformationOrdered By: Dr. Ronquillo on 11-08-2022 Estimated GFR (MDRD) Amer 84 mL/min >60 [facility] Comment on above: GFR Calc Estimated GFR (MDRD) Non-Af Amer 69 mL/min >60 [facility] Comment on above: Non- GFR Calc Prostate Specific Antigen Screen 2.21 ng/mL 0.00-4.00 [facility] Comment on above: This test was perfor med using the TPSA assay method for the[employer] chemistry system. Values obtained with differentassay methods cannot be used interchangably.When changing PSA assays in the course of monitoring apatient, additional sequential testing should be carriedout to confirm baseline values. Platelets bldOrdered By: Dr. Ronquillo on 11-08-2022 Platelets (Bld) [#/Vol] 295 10*3/uL 150-450 [facility] Serum or plasma calcium jimy urement (mass/volume)Ordered By: Dr. Ronquillo on 11-08-2022 Calcium [Mass/Vol] 9.4 mg/dL 8.5-10.1 [facility] Serum or plasma creatinine m easurement (mass/volume)Ordered By: Dr. Ronquillo on 11-08-2022 Creatinine [Mass/Vol] 1.13 mg/dL 0.70-1.30 [facility] Comment on above: The validity of the calculated GFR & GFRAA in patients over 70 years has not been determined. Clinical correlation is essential. Serum or plasma urea nitroge n measurement (mass/volume)Ordered By: Dr. Ronquillo on 11-08-2022 Urea nitrogen [Mass/Vol] 17 mg/dL 7-18 [facility] Thin prep Papanicolaou smear with manual screeningOrdered By: Dr. Ronquillo on 11-08-2022 Thin prep Papanicolaou smear with manual screening 8 5-15 [facility] XR Shoulder - left 2 Viewson 09-30-2022 IMPRESSION: Stable previous total shoulder arthroplasty without hardware failure or acute osseous abnormality. OLOGY EXAM: XR SHOULDER LE FT 4 VIEWS, 09/30/2022 09:05 AM CLINICAL INDICATIONS: Left Shoulder Pain RELEVANT CLINICAL HISTORY: Z98.890:S/P shoulder surgery Grashey ER, AP IR, Axillary, Scap Y; COMPARISON: 08/28/2022 FINDINGS: 4 images obtained. Soft Tissue: No soft tissue swelling evident. Bone: No acute osseous abnormality is identified. Joint: Previous total left shoulder arthroplasty is present. Prosthesis is stable and intact without hardware failure or loosening. Acromioclavicular and glenohumeral joints are aligned. RADIOLOGY Fiordaliza Wyatt MD - 09/30/2022 EXAM: XR SHOULDER LEFT 4 VIEWS, 09/30/2022 09:05 AM CLINICAL INDICATIONS: Left Shoulder Pain RELEVANT CLINICAL HISTORY: Z98.890:S/P shoulder surgery Grashey ER, AP IR, Axillary, Scap Y; COMPARISON: 08/28/2022 FINDINGS: 4 images obtained. Soft Tissue: No soft tissue swelling evident. Bone: No acute osseous abnormality is identified. Joint: Previous total left shoulder arthroplasty is present. Prosthesis is stable and intact without hardware failure or loosening. Acromioclavicular and glenohumeral joints are aligned. IMPRESSION IMPRESSION: Stable previous total shoulder arthroplasty without hardware failure or acute osseous abnormality. [facility] Radiology Study observation (narrative) [facility] XR Shoulder - left 2 ViewsOr dered By: Fiordaliza Wyatt on 09-30-2022 [facility] Work Phone: XR Shoulder - left 2 Viewson 08-28-2022 IMPRESSION: Improved soft tissue findings. Stable left total shoulder arthroplasty. OLOGY EXAM: XR SHOULDER LE FT 4 VIEWS, 08/28/2022 09:01 AM CLINICAL INDICATIONS: left shoulder pain RELEVANT CLINICAL HISTORY: Z98.890:S/P shoulder surgery Shoulder Complete-AP, Outlet, AC Joint, Axillary; COMPARISON: Radiographs dated August 14, 2022 FINDINGS: 4 images obtained. Soft Tissue: Resolution of postoperative air with improved swelling. Bone: No acute osseous abnormality is identified. Joint: Postoperative changes are again seen relating to left total shoulder arthroplasty. No perioperative fracture is identified. AC joint is anatomic. RADIOLOGY Chuck Mclean DO - 08/28/2022 EXAM: XR SHOULDER LEFT 4 VIEWS, 08/28/2022 09:01 AM CLINICAL INDICATIONS: left shoulder pain RELEVANT CLINICAL HISTORY: Z98.890:S/P shoulder surgery Shoulder Complete-AP, Outlet, AC Joint, Axillary; COMPARISON: Radiographs dated August 14, 2022 FINDINGS: 4 images obtained. Soft Tissue: Resolution of postoperative air with improved swelling. Bone: No acute osseous abnormality is identified. Joint: Postoperative changes are again seen relating to left total shoulder arthroplasty. No perioperative fracture is identified. AC joint is anatomic. IMPRESSION IMPRESSION: Improved soft tissue findings. Stable left total shoulder arthroplasty. [facility] Radiology Study observation (narrative) [facility] XR Shoulder - left 2 ViewsOr dered By: Chuck Mclean on 08-28-2022 [facility] Work Phone: US Unspecified body region d uring surgeryOrdered By: Unassigned Pacs on 08-14-2022 [facility] Work Phone: US Unspecified body region d uring surgeryon 08-14-2022 Radiology Study observation (narrative) [facility] XR Shoulder - left 2 Viewson 08-14-2022 IMPRESSION: Expected postsurgical changes related to left total shoulder arthroplasty. OLOGY EXAM: XR SHOULDER LE FT 2 VIEWS, 08/14/2022 13:54 PM CLINICAL INDICATIONS: S/p shoulder surgery RELEVANT CLINICAL HISTORY: COMPARISON: December 11, 2021 FINDINGS: 2 images obtained. Postsurgical changes are evident related to a conventional left total shoulder arthroplasty. The scapular and humeral implants appear well seated. Intra-articular and intrabursal air is noted as well as within the surrounding soft tissues of the left shoulder. The acromioclavicular joint appears anatomically aligned. RADIOLOGY Fred Rodriguez MD - 08/14/2022 EXAM: XR SHOULDER LEFT 2 VIEWS, 08/14/2022 13:54 PM CLINICAL INDICATIONS: S/p shoulder surgery RELEVANT CLINICAL HISTORY: COMPARISON: December 11, 2021 FINDINGS: 2 images obtained. Postsurgical changes are evident related to a conventional left total shoulder arthroplasty. The scapular and humeral implants appear well seated. Intra-articular and intrabursal air is noted as well as within the surrounding soft tissues of the left shoulder. The acromioclavicular joint appears anatomically aligned. IMPRESSION IMPRESSION: Expected postsurgical changes related to left total shoulder arthroplasty. [facility] Radiology Study observation (narrative) [facility] XR Shoulder - left 2 ViewsOr dered By: Fred Rodriguez on 08-14-2022 [facility] Work Phone: No Panel InformationOrdered By: Dr. Tian on 08-11-2022 Nasopharyngeal Culture [facility] Gram stain for investigation of transfusion reactionOrdered By: Dr. Tian on 08-09-2022 Microscopic observation Gram stain Nom (Unsp spec) [facility] XR Hip - right 2 Viewson IMPRESSION: Stable right total hip arthroplasty. No acute osseous abnormality. OLOGY EXAM: XR HIP RIGHT 3 VIEWS,, 08/06/2022 09:43 AM COMPARISON: Compared to prior study dated January 30, 2022. CLINICAL INDICATIONS: pain RELEVANT CLINICAL HISTORY: M25.551:Right hip pain FINDINGS: 3 images obtained. Soft Tissue: There is no obvious soft tissue swelling. There is no radiographically evident heterotopic ossification. Bone: No acute osseous abnormality is identified. Hip: Total hip arthroplasty in place. Hardware intact and stable in alignment. No periprosthetic lucency. RADIOLOGY Elbert Ferrell MD - 08/06/2022 EXAM: XR HIP RIGHT 3 VIEWS,, 08/06/2022 09:43 AM COMPARISON: Compared to prior study dated January 30, 2022. CLINICAL INDICATIONS: pain RELEVANT CLINICAL HISTORY: M25.551:Right hip pain FINDINGS: 3 images obtained. Soft Tissue: There is no obvious soft tissue swelling. There is no radiographically evident heterotopic ossification. Bone: No acute osseous abnormality is identified. Hip: Total hip arthroplasty in place. Hardware intact and stable in alignment. No periprosthetic lucency. IMPRESSION IMPRESSION: Stable right total hip arthroplasty. No acute osseous abnormality. [facility] Radiology Study observation (narrative) [facility] XR Hip - right 2 ViewsOrdere d By: Elbert Ferrell on 08-06-2022 [facility] Work Phone: SCREEN: MRSA/MSSAOrdered By: Bethany Vitale on 08-01-2022 Interpretation and review of laboratory results Normal [facility] Methicillin Resistant S. Aureus By Pcr Negative Negative [facility] Staphylococcus Aureus By Pcr Negative Negative [facility] This test was perfor med using a real time PCR assay. Results should be interpreted in conjunction with other clinical and laboratory findings. A positive result does not necessarily indicate the presence of viable organism. This test should not be used as a test of cure. For E-swab specimens, this test was developed and its performance characteristics determined by the Clinical Microbiology Laboratory at [facility]. It has not been cleared or approved by the FDA.The laboratory is regulated under CLIA as qualified to perform high-complexity testing. This test is used for clinical purposes. It should not be regarded as investigational or for research. [facility] ALBUMINon 07-31-2022 Albumin [Mass/Vol] 4.1 g/dL 3.5 - 5.0 g/dL [facility] C REACTIVE PROTEINon 022 CRP High sensitivity method [Mass/Vol] 4.35 mg/L NINF - 10.00 mg/L [facility] CALCIUMon 07-31-2022 Calcium [Mass/Vol] 9.6 mg/dL 8.6 - 10. 5 mg/dL [facility] CHEM 6 (LYTES, BUN CREA)on 09-30-2021 Anion gap [Moles/Vol] 11 mmol/L 7 - 17 mmol/L [facility] Chloride [Moles/Vol] 107 mmol/L 98 - 10 8 mmol/L [facility] CO2 [Moles/Vol] 28 mmol/L 21 - 31 mmol/L [facility] Creatinine [Mass/Vol] 1.19 mg/dL 0.70 - 1.30 mg/dL [facility] GFR/1.73 sq M.predicted CKD-EPI (S/P/Bld) [Vol rate/Area] 68 - PINF [facility] Comment on above: Reported eGFR is bas ed on the CKD-EPI 2020 equation using creatinine, age, and sex. Potassium [Moles/Vol] 5.0 mmol/L 3.5 - 5.0 mmol/L [facility] Sodium [Moles/Vol] 141 mmol/L 135 - 145 mmol/L [facility] Urea nitrogen [Mass/Vol] 25 mg/dL 7 - 25 mg/dL [facility] Urea nitrogen/Creatinine [Mass ratio] 21 mg/mg [facility] HEMOGLOBIN [id number] By: Ulises Pierre on 07-31-2022 Average glucose Estimated from glycated hemoglobin (Bld) [Mass/Vol] 103 mg/dL [facility] HbA1c (Bld) [Mass fraction] 5.2 % 4.7 - 5.6 % [facility] No Panel Informationon 07-31 Interpretation and review of laboratory results Normal [facility] PT,INR,PTTon 07-31-2022 aPTT Coag (PPP) [Time] 27.0 s [facility] INR Coag (Bld) [Relative time] 1.0 {INR} 0.9 - 1.1 [facility] Interpretation and review of laboratory results Normal [facility] PT Coag (PPP) [Time] 13.2 s [facility] SEDIMENTATION RATE, AUTOMATE DOrdered By: Heidi Gifford on 07-31-2022 ESR (Bld) [Velocity] 11 mm/h NINF [facility] Interpretation and review of laboratory results Normal [facility] TYPE AND SCREEN - PREADMISSI ONon 07-31-2022 ABO/RH(D) TYPE Positive [facility] RADIOFREQUENCY ABLATIONon Teresita Rawls MD 07/03/2022 8:45 AM RADIOFREQUENCY ABLATION Date/Time: 07/03/2022 8:40 AM Performed by: Teresita Rawls MD Authorized by: Teresita Rawls MD Procedure Details: Radiofrequency Ablation for 3 level(s):Left After informed consent was obtained, the patient was escorted back to the procedure room and placed prone on the procedure table. Verbal verification and time-out was performed and all present were in agreement. Vital sign monitoring was initiated. The patient was sterilely prepped and draped in usual fashion using Chloraprep. The procedure was completed with intermittent fluoroscopy. The skin and soft tissues overlying the affected region were anesthetized using 5 mL of lidocaine 1%. A 20 G 100 mm curved tip radiofrequency needle with 10 mm active tip was directed toward the anatomic location of the medial branch nerves at the sacral ala, superior articular process / transverse process junctions and L5 dorsal ramus of the above listed levels. Utilizing intermittent fluoroscopy anteroposterior, lateral and ipsilateral oblique views were used to confirm placement. Motor stimulation up to 2 mV was done to confirm no ablation of the ventral ramus at each level. After waiting 30-60 seconds, the ablation was performed using a radiofrequency generator at 80 degrees C for 90 seconds. The needle(s) were then moved slightly back and rotated and a second ablation was done at 80 degrees C for another 90 seconds. The needle(s) were removed. Post Procedure Details: Complications: none The procedure was tolerated well. The patient was transported to the recovery room where they were observed prior to discharge. The patient was discharged to home. They were advised to contact the office with any questions or concerns. Pre-Procedure Details The procedure was performed with a resident Resident: Michelle Vo MD The attending physician was present for the entire procedure. I have personally evaluated this patient on the day of service, and personally supervised the procedures as they were performed or performed any portion of the procedures myself. Pre Procedure Details: Informed consent was obtained. Risks and benefits were explained to the patient and they wish to proceed. We discussed risks (pain, bleeding, infection, CSF leak, positional headache, paralysis, nerve injury, medication allergy, seizure, stroke and ), benefits (pain relief and increase in function and improvement of QoL), and process involved. . [facility] Radiology Study observation (narrative) [facility] RADIOFREQUENCY ABLATION: L3- L4, L4-L5, L5-S1on 06-26-2022 Teresita Rawls MD 06/26/2022 9:34 AM RADIOFREQUENCY ABLATION: L3-L4, L4-L5, L5-S1 Date/Time: 06/26/2022 8:40 AM Performed by: Teresita Rawls MD Authorized by: Teresita Rawls MD Procedure Details: Radiofrequency Ablation for 3 level(s):Right L3-L4 L4-L5 L5-S1 After informed consent was obtained, the patient was escorted back to the procedure room and placed prone on the procedure table. Verbal verification and time-out was performed and all present were in agreement. Vital sign monitoring was initiated. The patient was sterilely prepped and draped in usual fashion using Chloraprep. The procedure was completed with intermittent fluoroscopy. The skin and soft tissues overlying the affected region were anesthetized using 5 mL of lidocaine 1%. A 20 G 100 mm curved tip radiofrequency needle with 10 mm active tip was directed toward the anatomic location of the medial branch nerves at the sacral ala, superior articular process / transverse process junctions and L5 dorsal ramus of the above listed levels. Utilizing intermittent fluoroscopy anteroposterior, lateral and ipsilateral oblique views were used to confirm placement. Motor stimulation up to 2 mV was done to confirm no ablation of the ventral ramus at each level. After waiting 30-60 seconds, the ablation was performed using a radiofrequency generator at 80 degrees C for 90 seconds. The needle(s) were then moved slightly back and rotated and a second ablation was done at 80 degrees C for another 90 seconds. The needle(s) were removed. Post Procedure Details: Complications: none The procedure was tolerated well. The patient was transported to the recovery room where they were observed prior to discharge. The patient was discharged to home. They were advised to contact the office with any questions or concerns. Pre-Procedure Details The attending physician was present for the entire procedure. I have personally evaluated this patient on the day of service, and personally supervised the procedures as they were performed or performed any portion of the procedures myself. Pre Procedure Details: Informed consent was obtained. Risks and benefits were explained to the patient and they wish to proceed. We discussed risks (pain, bleeding, infection, CSF leak, positional headache, paralysis, nerve injury, medication allergy, seizure, stroke and ), benefits (pain relief and increase in function and improvement of QoL), and process involved. . [facility] Radiology Study observation (narrative) [facility] LARGE JOINT/BURSA INJECTION AND/OR ASPIRATION: L glenohumeralon 04-29-2022 Zaheer Govea MD 04/29/2022 4:22 PM LARGE JOINT/BURSA INJECTION AND/OR ASPIRATION: L glenohumeral Date/Time: 04/29/2022 4:30 PM Supporting Documentation Indications: pain Procedure Details: Location: shoulder - L glenohumeral Guidance: ultrasound Ultrasound probe size: 4 mHz curvilinear Images were saved electronically. Needle size: 21 G Needle Length: 3.0 inch Approach: posterior Medication Verification: I have personally verified and performed the final check of the medication(s) used in this procedure prior to administration. The following items were included during the verification process for medication(s) administered: drug name, strength, volume, expiration, physical integrity and appearance of the medication(s). Medications administered: 1 mL triamcinolone 40 MG/ML; 4 mL ropivacaine 1 % Patient tolerance: patient tolerated the procedure well with no immediate complications Comments Comments The use of direct ultrasound visualization of the needle (rather than a non-guided injection) was required to increase patient safety by excluding inadvertent intramuscular or intratendinous placement and minimizing bleeding by avoiding osteochondral or vascular injury from the needle. Additionally, the increased accuracy of placement may increase clinical effectiveness and will allow higher diagnostic specificity when evaluating effectiveness of this injection. Using ultrasound, a pre-scan of the region was performed to identify the target structure. Left GH joint Pre-Procedure Details The attending physician was present for the entire procedure. Consent: Consent was obtained prior to the procedure after discussion of the risks, benefits and alternatives, and expected outcomes were discussed with the patient. The possibilities of reaction to medication, bleeding, infection, the need for additional procedures, failure to diagnosis a condition, and creating a complication requiring operation were discussed with the patient. The patient concurred with the proposed plan, giving consent. Preparation: Patient was prepped in the usual sterile fashion. The patient was prepped with Chloraprep. [facility] Radiology Study observation (narrative) [facility] US Unspecified body regionOr dered By: Unassigned Pacs on 04-29-2022 [facility] Work Phone: [phone] [place] Unspecified body regionon 04-29-2022 Radiology Study observation (narrative) [facility] SPINAL INJECTION: L3, L4, L5 , L2, L3, L4, L5, L2on 04-10-2022 Teresita Rawls MD 04/10/2022 11:12 AM SPINAL INJECTION: L3, L4, L5, L2, L3, L4, L5, L2 Date/Time: 04/10/2022 11:00 AM Performed by: Teresita Rawls MD Authorized by: Teresita Rawls MD Procedure Details: Procedure performed: medial branch block After informed consent was obtained, the patient was escorted back to the procedure room and placed in the prone position on the procedure table. Verbal verification and time-out was performed and all present were in agreement. Vital sign monitoring was initiated. The patient was sterilely prepped and draped in usual fashion with Chloraprep gluconate 4% antiseptic solution. Procedure guidance: fluoroscopy The fluoroscope was brought into the field and a PA image was obtained to identify the appropriate vertebral body. The anterior and posterior aspects of the superior endplate of the vertebral body were superimposed upon one another. The fluoroscope was then rotated in an oblique angle toward the right and left such that the superior articulating process was positioned midway between the anterior and posterior aspects of the vertebral body superior endplate. A point on the skin overlying the proposed site of needle entry was marked. The skin and subcutaneous tissues overlying the proposed needle entry site were anesthetized with 4 mL of lidocaine 1%. A 22 G 3.5 inch spinal needle was advanced to the medial branch nerve L5 dorsal ramus area. Needle depth was periodically evaluated using fluoroscopic imaging. Correct final needle position was confirmed with anteroposterior, lateral and ipsilateral oblique fluoroscopic imaging. Medication Verification: I have personally verified and performed the final check of the medication(s) used in this procedure prior to administration. The following items were included during the verification process for medication(s) administered: drug name, strength, volume, expiration, physical integrity and appearance of the medication(s). A solution of 0.5 mL bupivacaine (PF) 0.5 % was divided equally among the affected levels and injected. After completion of the injection, the needle was flushed and removed. The above listed procedure was done for: Left L3, L4, L5 and L2 Right L3, L4, L5 and L2 Post Procedure Details: Complications: none The procedure was tolerated well. The patient was transported to the recovery room where they were observed for at least 20 minutes prior to discharge. The patient was discharged to home. They were advised to contact the office with any questions or concerns. Comments: 0.5ml of 1% lidocaine given for local skin infiltration, 0.5ml 0.5% bupivicaine given per spinal level Pre-Procedure Details The procedure was performed with a fellow Fellow: Placido Wei MDI have personally evaluated this patient on the day of service, and personally supervised the procedures as they were performed or performed any portion of the procedures myself. I have personally evaluated this patient on the day of service, and personally supervised the procedures as they were performed or performed any portion of the procedures myself. Pre Procedure Details: Informed consent was obtained. Risks and benefits were explained to the patient and they wish to proceed. We discussed risks (pain, bleeding, infection, CSF leak, positional headache, artery injury, paralysis, nerve injury, medication allergy, seizure, stroke and ), benefits (pain relief and increase in function and improvement of QoL), and process involved. [facility] Radiology Study observation (narrative) [facility] SPINAL INJECTION: L3, L4, L5 , L2, L3, L4, L5, L2on 03-06-2022 Teresita Rawls MD 03/06/2022 11:06 AM SPINAL INJECTION: L3, L4, L5, L2, L3, L4, L5, L2 Date/Time: 03/06/2022 11:00 AM Performed by: Teresita Rawls MD Authorized by: Teresita Rawls MD Procedure Details: Procedure performed: medial branch block After informed consent was obtained, the patient was escorted back to the procedure room and placed in the prone position on the procedure table. Verbal verification and time-out was performed and all present were in agreement. Vital sign monitoring was initiated. The patient was sterilely prepped and draped in usual fashion with Chloraprep gluconate 4% antiseptic solution. Procedure guidance: fluoroscopy The fluoroscope was brought into the field and a PA image was obtained to identify the appropriate vertebral body. The anterior and posterior aspects of the superior endplate of the vertebral body were superimposed upon one another. The fluoroscope was then rotated in an oblique angle toward the right and left such that the superior articulating process was positioned midway between the anterior and posterior aspects of the vertebral body superior endplate. A point on the skin overlying the proposed site of needle entry was marked. A 25 G 3.5 inch spinal needle was advanced to the medial branch nerve L5 dorsal ramus area. Needle depth was periodically evaluated using fluoroscopic imaging. Correct final needle position was confirmed with anteroposterior, lateral and ipsilateral oblique fluoroscopic imaging. Medication Verification: I have personally verified and performed the final check of the medication(s) used in this procedure prior to administration. The following items were included during the verification process for medication(s) administered: drug name, strength, volume, expiration, physical integrity and appearance of the medication(s). A solution of 0.5 mL bupivacaine (PF) 0.5 % was divided equally among the affected levels and injected. After completion of the injection, the needle was flushed and removed. The above listed procedure was done for: Left L3, L4, L5 and L2 Right L3, L4, L5 and L2 Post Procedure Details: Complications: none The procedure was tolerated well. The patient was transported to the recovery room where they were observed for at least 20 minutes prior to discharge. The patient was discharged to home. They were advised to contact the office with any questions or concerns. Comments: 0.5ml 0.5% bupivicaine given per level Pre-Procedure Details The procedure was performed with a fellow Fellow: EMILE Costello have personally evaluated this patient on the day of service, and personally supervised the procedures as they were performed or performed any portion of the procedures myself. I have personally evaluated this patient on the day of service, and personally supervised the procedures as they were performed or performed any portion of the procedures myself. Pre Procedure Details: Informed consent was obtained. Risks and benefits were explained to the patient and they wish to proceed. We discussed risks (pain, bleeding, infection, CSF leak, positional headache, artery injury, paralysis, nerve injury, medication allergy, seizure, stroke and ), benefits (pain relief and increase in function and improvement of QoL), and process involved. [facility] Radiology Study observation (narrative) [facility] Basophil percentageon 2021 Bilirubin [Mass/Vol] 0.50 mg/dL 0.20-1.00 [facility] Work Phone: Comment on above: For patients on eltr ombopag therapy, use of Dimension [place] TBIL is not recommended. Cholesterol [Mass/Vol] 171 mg/dL <200 [facility] Work Phone: Comment on above: <200 mg/dL Desirable 200-240 mg/dL Borderline >240 mg/dL High Risk Protein [Mass/Vol] 6.6 g/dL 6.4-8.2 [facility] Work Phone: [phone] Triglyceride [Mass/Vol] 212 mg/dL <199 [facility] Work Phone: Comment on above: The drugs N-Acetylcy steine and Metamizole may falsely depress this assay.Serum Triglycerides Reference Interval Normal <150 mg/dL Borderline high 150 - 199 mg/dL High 200 - 499 mg/dL Very High > or = 500 mg/dL Direct bilirubinon 2 Bilirubin.direct [Mass/Vol] 0.12 mg/dL 0.00-0.30 [facility] Work Phone: Laboratory - Chemistry and C hemistry - challengeon 02-18-2022 ALP [Catalytic activity/Vol] 69 U/L 45-117 [facility] Work Phone: [phone] ALT [Catalytic activity/Vol] 33 U/L 16-61 [facility] Work Phone: Globulin (S) [Mass/Vol] 2.9 g/dL 2.2-4.2 [facility] Work Phone: Serum or plasma albumin jimy urement (mass/volume)on 02-18-2022 Albumin [Mass/Vol] 3.7 g/dL 3.2-5.0 [facility] Work Phone: Serum or plasma cholesterol in HDL measurement (mass/volume)on 02-18-2022 Cholesterol in HDL [Mass/Vol] 43 mg/dL >40 [facility] Work Phone: Comment on above: The drugs N-Acetylcy steine and Metamizole may falsely depress this assay. Reference Range HDL <40 mg/dL Low HDL Cholesterol HDL >or= 60 mg/dL High HDL Cholesterol Serum or plasma cholesterol in VLDL measurement (mass/volume)on 02-18-2022 Cholesterol in VLDL [Mass/Vol] 42 mg/dL 5-40 [facility] Work Phone: Serum or plasma low density lipoprotein (LDL) cholesterol measurement (mass/volume)on 02-18-2022 Cholesterol in LDL [Mass/Vol] 86 mg/dL 0-130 [facility] Work Phone: Thin prep Papanicolaou smear with manual screeningon 02-18-2022 Thin prep Papanicolaou smear with manual screening 29 U/L 15-37 [facility] Work Phone: C REACTIVE PROTEINon 022 CRP High sensitivity method [Mass/Vol] 5.58 mg/L <10.00 [facility] Interpretation and review of laboratory results Normal [facility] SEDIMENTATION RATE, AUTOMATE Don 01-30-2022 ESR (Bld) [Velocity] 8 mm/h <20 mm/hr [facility] Interpretation and review of laboratory results Normal [facility] XR Hip - right 2 Viewson IMPRESSION: Stable right total hip arthroplasty. No hardware failure. OLOGY EXAM: XR HIP RIGHT 3 VIEWS,, 01/30/2022 14:26 PM COMPARISON: July 17, 2021 CLINICAL INDICATIONS: eval RELEVANT CLINICAL HISTORY: Z96.641:Status post right hip replacement AP/Cross table lateral of right hip with 30 mm calibration ball, AP Pelvis; FINDINGS: 3 images obtained. Soft Tissue: There is no new heterotopic ossification. Bone: A right total hip arthroplasty is redemonstrated. The acetabular and femoral implants are well-seated. No indication of hardware failure or acute osseous abnormality. The remainder of the pelvis appears grossly unchanged. RADIOLOGY Fred Rodriguze MD - 01/30/2022 EXAM: XR HIP RIGHT 3 VIEWS,, 01/30/2022 14:26 PM COMPARISON: July 17, 2021 CLINICAL INDICATIONS: eval RELEVANT CLINICAL HISTORY: Z96.641:Status post right hip replacement AP/Cross table lateral of right hip with 30 mm calibration ball, AP Pelvis; FINDINGS: 3 images obtained. Soft Tissue: There is no new heterotopic ossification. Bone: A right total hip arthroplasty is redemonstrated. The acetabular and femoral implants are well-seated. No indication of hardware failure or acute osseous abnormality. The remainder of the pelvis appears grossly unchanged. IMPRESSION IMPRESSION: Stable right total hip arthroplasty. No hardware failure. [facility] Radiology Study observation (narrative) [facility] XR Hip - right 2 ViewsOrdere d By: Fred Rodriguez on 01-30-2022 [facility] Work Phone: LARGE JOINT/BURSA INJECTION AND/OR ASPIRATION: L glenohumeralon 01-08-2022 Zaheer Govea MD 01/08/2022 10:47 AM LARGE JOINT/BURSA INJECTION AND/OR ASPIRATION: L glenohumeral Date/Time: 01/08/2022 11:15 AM Supporting Documentation Indications: pain Procedure Details: Location: shoulder - L glenohumeral Guidance: ultrasound Ultrasound probe size: 4 mHz curvilinear Images were saved electronically. Needle size: 21 G Approach: posterior Medication Verification: I have personally verified and performed the final check of the medication(s) used in this procedure prior to administration. The following items were included during the verification process for medication(s) administered: drug name, strength, volume, expiration, physical integrity and appearance of the medication(s). Medications administered: 1 mL triamcinolone 40 MG/ML; 4 mL ropivacaine 1 % Patient tolerance: patient tolerated the procedure well with no immediate complications Comments Comments The use of direct ultrasound visualization of the needle (rather than a non-guided injection) was required to increase patient safety by excluding inadvertent intramuscular or intratendinous placement and minimizing bleeding by avoiding osteochondral or vascular injury from the needle. Additionally, the increased accuracy of placement may increase clinical effectiveness and will allow higher diagnostic specificity when evaluating effectiveness of this injection. Using ultrasound, a pre-scan of the region was performed to identify the target structure. Left GH joint Pre-Procedure Details The attending physician was present for the entire procedure. Consent: Consent was obtained prior to the procedure after discussion of the risks, benefits and alternatives, and expected outcomes were discussed with the patient. The possibilities of reaction to medication, bleeding, infection, the need for additional procedures, failure to diagnosis a condition, and creating a complication requiring operation were discussed with the patient. The patient concurred with the proposed plan, giving consent. Preparation: Patient was prepped in the usual sterile fashion. The patient was prepped with Chloraprep. [facility] CT Shoulder - left NAYELI jones 01-02-2022 IMPRESSION: Severe glenohumeral arthritis as above with intra-articular body. Measurements as above. Calcific tendinitis in the distribution of the supraspinatus. OLOGY EXAM: CT SHOULDER LE FT WITHOUT CONTRAST WITH 3D FOR SURGICAL PLANNING, 01/02/2022 13:34 PM COMPARISON: Left shoulder radiographs December 11, 2021 CLINICAL INDICATIONS: surgical planning for replacement; RELEVANT CLINICAL HISTORY: M25.512:Left shoulder pain, unspecified chronicity TECHNIQUE: Contiguous 0.625 x 0.3125 mm transaxial images were performed through the shoulder without the use of intravenous contrast. The images were then reconstructed in the coronal, sagittal, and axial planes at 2-2.5 mm intervals. TECHNIQUE 3D IMAGES: Multiplanar 3-dimensional reconstructed images of the shoulder were also obtained at an independent workstation. FINDINGS: Soft Tissue: There is no significant soft tissue swelling. No pathologic fluid collection. No soft tissue mass identified. Limited imaging of the left lung shows paraseptal emphysema anteriorly. Calcific tendinitis is evident adjacent to the greater tuberosity. Bone: No acute osseous abnormality is identified. Joint: Severe glenohumeral arthritis manifested by joint space narrowing and osteophytosis. Ossific intra-articular body in the subcoracoid recess. Mechanical remodeling is evident involving the posterior aspect of the glenoid with slight posterior subluxation of the humeral head. Acromioclavicular arthritis is evident. The glenoid measures 4.5 mm in depth, 29 mm transversely, and 35 mm in craniocaudal dimension. 3D reconstruction was performed on an independent workstation based on specific patient condition and were reviewed and approved by Min Omalley MD. The post-processed images contributed with the following findings: Precise assessment of osseous anatomy for purposes of preoperative planning. RADIOLOGY Min Omalley MD - 01/02/2022 EXAM: CT SHOULDER LEFT WITHOUT CONTRAST WITH 3D FOR SURGICAL PLANNING, 01/02/2022 13:34 PM COMPARISON: Left shoulder radiographs December 11, 2021 CLINICAL INDICATIONS: surgical planning for replacement; RELEVANT CLINICAL HISTORY: M25.512:Left shoulder pain, unspecified chronicity TECHNIQUE: Contiguous 0.625 x 0.3125 mm transaxial images were performed through the shoulder without the use of intravenous contrast. The images were then reconstructed in the coronal, sagittal, and axial planes at 2-2.5 mm intervals. TECHNIQUE 3D IMAGES: Multiplanar 3-dimensional reconstructed images of the shoulder were also obtained at an independent workstation. FINDINGS: Soft Tissue: There is no significant soft tissue swelling. No pathologic fluid collection. No soft tissue mass identified. Limited imaging of the left lung shows paraseptal emphysema anteriorly. Calcific tendinitis is evident adjacent to the greater tuberosity. Bone: No acute osseous abnormality is identified. Joint: Severe glenohumeral arthritis manifested by joint space narrowing and osteophytosis. Ossific intra-articular body in the subcoracoid recess. Mechanical remodeling is evident involving the posterior aspect of the glenoid with slight posterior subluxation of the humeral head. Acromioclavicular arthritis is evident. The glenoid measures 4.5 mm in depth, 29 mm transversely, and 35 mm in craniocaudal dimension. 3D reconstruction was performed on an independent workstation based on specific patient condition and were reviewed and approved by Min Omalley MD. The post-processed images contributed with the following findings: Precise assessment of osseous anatomy for purposes of preoperative planning. IMPRESSION IMPRESSION: Severe glenohumeral arthritis as above with intra-articular body. Measurements as above. Calcific tendinitis in the distribution of the supraspinatus. [facility] Radiology Study observation (narrative) [facility] CT Shoulder - left WO contra stOrdered By: Min Omalley on 01-02-2022 [facility] Work Phone: XR Shoulder - left 2 Viewson 12-11-2021 IMPRESSION: 1. Chronic rotator cuff disease. 2. Severe arthritic changes in the glenohumeral joint. OLOGY EXAM: XR SHOULDER LE FT 4 VIEWS, 12/11/2021 10:02 AM CLINICAL INDICATIONS: Left shoulder pain RELEVANT CLINICAL HISTORY: M25.512:Left shoulder pain, unspecified chronicity [place] [facility], AP IR, Axillary, Scap Y; COMPARISON: No prior studies available for comparison. FINDINGS: 4 images obtained. Soft Tissue: No soft tissue swelling evident. Bone: No acute osseous abnormality is identified. There is cortical irregularity in the greater tuberosity foot plate. Joint: There is severe narrowing of the glenohumeral joint with osteophytosis. The acromioclavicular joint appears anatomically aligned. RADIOLOGY Fred Rodriguez MD - 12/11/2021 EXAM: XR SHOULDER LEFT 4 VIEWS, 12/11/2021 10:02 AM CLINICAL INDICATIONS: Left shoulder pain RELEVANT CLINICAL HISTORY: M25.512:Left shoulder pain, unspecified chronicity [place] [facility], AP IR, Axillary, Scap Y; COMPARISON: No prior studies available for comparison. FINDINGS: 4 images obtained. Soft Tissue: No soft tissue swelling evident. Bone: No acute osseous abnormality is identified. There is cortical irregularity in the greater tuberosity foot plate. Joint: There is severe narrowing of the glenohumeral joint with osteophytosis. The acromioclavicular joint appears anatomically aligned. IMPRESSION IMPRESSION: 1. Chronic rotator cuff disease. 2. Severe arthritic changes in the glenohumeral joint. [facility] Radiology Study observation (narrative) [facility] XR Shoulder - left 2 ViewsOr dered By: Fred Rodriguez on 12-11-2021 [facility] Work Phone: NOVEL CORONAVIRUS PCRon 06-08 SARS-CoV-2 (COVID-19) RNA ODESSA+probe Ql (Unsp spec) Not detected NOT DETECTED [facility] Comment on above: [facility] Negative results do not preclude SARS-CoV-2 infection and should not be used as the sole basis for treatment or other patient management decisions. Optimum specimen types and timing for peak viral levels during infections caused by SARS-CoV-2 has not been determined. The possibility of a false negative result should especially be considered if the patient's recent exposures or clinical presentation suggest that SARS-CoV-2 infection is probable, and diagnostic tests for other causes of illness (e.g., other respiratory illness) are negative. Collection of a new specimen and re-testing may be necessary if the patient is critically ill or clinically deteriorating. SARS-CoV-2 (COVID-19) RNA NA A+probe Ql (Unsp spec)on 06-26-2021 Interpretation and review of laboratory results Normal [facility] This test was perfor med using [employer] Mediated Amplification and has been approved as Emergency Use Authorization (EUA) for the qualitative detection of SARS-CoV-2 nucleic acid. [facility] Gram stain for investigation of transfusion reaction Microscopic observation Gram stain Nom (Unsp spec) [facility] Work Phone: No Panel Information Nasopharyngeal Culture [facility] Work Phone: Vital Signs Date Time Vital Sign Value Performing Clinician Facility 06-02-2025 13:43-0400 Body height 177.8 cm Luis Antonio Arias MD Work Phone: [phone] [address] 06-02-2025 13:43-0400 Body mass index (BMI) [Ratio] 31.27 kg/m2 Luis Antonio Arias MD Work Phone: [phone] [place] [address] 06-02-2025 13:43-0400 Body weight 98.84 kg Luis Antonio Arias MD Work Phone: [phone] [place] [address] 06-02-2025 13:43-0400 Diastolic blood pressure 66 mm[Hg] Luis Antonio Arias MD Work Phone: [phone] [place] [address] 06-02-2025 13:43-0400 Heart rate 96 /min Luis Antonio Arias MD Work Phone: [phone] [place] [address] 06-02-2025 13:43-0400 SaO2% (BldA) [Mass fraction] 98 % Luis Antonio Arias MD Work Phone: [phone] [place] [address] 06-02-2025 13:43-0400 Systolic blood pressure 122 mm[Hg] Luis Antonio Arias MD Work Phone: [phone] [place] [address] 05-30-2025 16:05-0400 Body temperature 97.7 [degF] Nicole Salinas MD, PhD Work Phone: [phone] [place] [address] 05-30-2025 16:05-0400 Diastolic blood pressure 80 mm[Hg] Nicole Salinas MD, PhD Work Phone: [phone] [place] [address] 05-30-2025 16:05-0400 Heart rate 69 /min Nicole Salinas MD, PhD Work Phone: [phone] [place] [address] 05-30-2025 16:05-0400 Respiratory rate 18 /min Nicole Salinas MD, PhD Work Phone: [phone] [place] [address] 05-30-2025 16:05-0400 SaO2% (BldA) [Mass fraction] 97 % Nicole Salinas MD, PhD Work Phone: [phone] [place] [address] 05-30-2025 16:05-0400 Systolic blood pressure 166 mm[Hg] Nicole Salinas MD, PhD Work Phone: [phone] [place] [address] 05-30-2025 12:15-0400 Body height 177.8 cm Nicole Salinas MD, PhD Work Phone: [phone] [place] [address] 05-30-2025 12:15-0400 Body mass index (BMI) [Ratio] 31.06 kg/m2 Nicole Salinas MD, PhD Work Phone: [phone] [place] [address] 05-30-2025 12:15-0400 Body weight 98.2 kg Nicole Salinas MD, PhD Work Phone: [phone] [place] [address] 05-10-2025 11:36-0400 Body height 177.8 cm Luis Antonio Arias MD Work Phone: [phone] [place] [address] 05-10-2025 11:36-0400 Body mass index (BMI) [Ratio] 31.41 kg/m2 Luis Antonio Arias MD Work Phone: [phone] [place] [address] 05-10-2025 11:36-0400 Body weight 99.29 kg Luis Antonio Arias MD Work Phone: [phone] [place] [address] 05-10-2025 11:36-0400 Diastolic blood pressure 74 mm[Hg] Luis Antonio Arias MD Work Phone: [phone] [place] [address] 05-10-2025 11:36-0400 Heart rate 76 /min Luis Antonio Arias MD Work Phone: 6(188)392-551052 [place] [address] 05-10-2025 11:36-0400 Systolic blood pressure 120 mm[Hg] Luis Antonio Arias MD Work Phone: 3(837)103-285152 [place] [address] 05-04-2025 10:24-0400 Body height 177.8 cm Armani Rae MD Work Phone: [facility] 05-04-2025 10:24-0400 Body mass index (BMI) [Ratio] 31.14 kg/m2 Armani Rae MD Work Phone: [facility] 05-04-2025 10:24-0400 Body temperature 97.39 [degF] Armani Rae MD Work Phone: [facility] 05-04-2025 10:24-0400 Body weight 98.43 kg Armani Rae MD Work Phone: [facility] 05-04-2025 10:24-0400 Diastolic blood pressure 84 mm[Hg] Armani Rae MD Work Phone: [facility] 05-04-2025 10:24-0400 Heart rate 68 /min Armani Rae MD Work Phone: [facility] 05-04-2025 10:24-0400 SaO2% (BldA) [Mass fraction] 98 % Armani Rae MD Work Phone: [facility] Comment on above: RA 05-04-2025 10:24-0400 Systolic blood pressure 134 mm[Hg] Armani Rae MD Work Phone: [facility] 04-26-2025 08:43-0400 Body height 180.[address] Pratibha Ronquillo DO Work Phone: [facility] 04-26-2025 08:43-0400 Body weight 97.[address] Pratibha Ronquillo DO Work Phone: [facility] 04-14-2025 14:41-0400 Body height 177.8 cm Marilyn MERCER Work Phone: [facility] 04-14-2025 14:41-0400 Body mass index (BMI) [Ratio] 30.42 kg/m2 Marilyn MERCER Work Phone: [facility] 04-14-2025 14:41-0400 Body weight 96.16 kg Marilyn Marie PROFESSOR OF VOICE-AERONAUTICAL DRAFTER Work Phone: 1(467)518-492652 [place] [address] 04-14-2025 14:41-0400 Diastolic blood pressure 82 mm[Hg] Marilyn Johnsine PROFESSOR OF VOICE-AERONAUTICAL DRAFTER Work Phone: 9(957)952-809152 [place] [address] 04-14-2025 14:41-0400 Heart rate 74 /min Marilyn Marie PROFESSOR OF VOICE-AERONAUTICAL DRAFTER Work Phone: 5(145)447-719052 [place] [address] 04-14-2025 14:41-0400 Systolic blood pressure 120 mm[Hg] Marilyn Marie PROFESSOR OF VOICE-AERONAUTICAL DRAFTER Work Phone: 7(403)788-060352 [place] [address] 04-05-2025 12:00-0400 Heart rate 64 /min Bony Garcia MD, PhD Work Phone: 7(506)972-585979 [place] [address] 04-05-2025 10:38-0400 Body temperature 97.59 [degF] Bony Garcia MD, PhD Work Phone: 4(336)598-770579 [place] [address] 04-05-2025 10:33-0400 Diastolic blood pressure 89 mm[Hg] Bony Garcia MD, PhD Work Phone: 3(564)274-852379 [place] [address] 04-05-2025 10:33-0400 Systolic blood pressure 140 mm[Hg] Bony Garcia MD, PhD Work Phone: 7(159)845-473379 [place] [address] 04-05-2025 08:00-0400 Body mass index (BMI) [Ratio] 30.36 kg/m2 Bony Garcia MD, PhD Work Phone: 9(340)941-353379 [place] [address] 04-05-2025 08:00-0400 Body weight 95.98 kg Bony Garcia MD, PhD Work Phone: 0(937)740-572979 [place] [address] Comment on above: standing 04-05-2025 08:00-0400 Respiratory rate 18 /min Bony Garcia MD, PhD Work Phone: [facility] 04-05-2025 08:00-0400 SaO2% (BldA) [Mass fraction] 95 % Bony Garcia MD, PhD Work Phone: [facility] 04-02-2025 18:01-0400 Body height 177.8 cm Bony Garcia MD, PhD Work Phone: [facility] 04-02-2025 00:06-0400 Body temperature 97.8 [degF] Dr. Pratibha Ronquillo DO Work Phone: [facility] 04-02-2025 00:06-0400 Diastolic blood pressure 70 mm[Hg] Dr. Pratibha Ronquillo DO Work Phone: [facility] 04-02-2025 00:06-0400 Heart rate 86 /min Dr. Pratibha Ronquillo DO Work Phone: [facility] 04-02-2025 00:06-0400 Respiratory rate 21 /min Dr. Pratibha Ronquillo DO Work Phone: [facility] 04-02-2025 00:06-0400 SaO2% (BldA) [Mass fraction] 96 % Dr. Pratibha Ronquillo DO Work Phone: [facility] 04-02-2025 00:06-0400 Systolic blood pressure 91 mm[Hg] Dr. Pratibha Ronquillo DO Work Phone: [facility] 04-01-2025 17:03-0400 Body height 180.[address] Pratibha Ronquillo DO Work Phone: [facility] 04-01-2025 17:03-0400 Body mass index (BMI) [Ratio] 29.7 kg/m2 Dr. Pratibha Ronquillo DO Work Phone: [facility] 04-01-2025 17:03-0400 Body weight 96.[address] Pratibha Ronquillo DO Work Phone: [facility] 03-30-2025 15:07-0400 Body mass index (BMI) [Ratio] 31.8 kg/m2 Dr. Pratibha Ronquillo DO Work Phone: [facility] 03-30-2025 15:07-0400 Body weight 103.[address] Pratibha Ronquillo DO Work Phone: [facility] 03-30-2025 14:30-0400 Diastolic blood pressure 76 mm[Hg] Dr. Pratibha Ronquillo DO Work Phone: [facility] 03-30-2025 14:30-0400 Systolic blood pressure 122 mm[Hg] Dr. Pratibha Ronquillo DO Work Phone: [facility] 03-30-2025 14:25-0400 Heart rate 80 /min Dr. Pratibha Ronquillo DO Work Phone: [facility] 03-30-2025 14:25-0400 SaO2% (BldA) [Mass fraction] 96 % Dr. Pratibha Ronquillo DO Work Phone: [facility] 03-18-2025 18:27-0400 Body temperature 98.1 [degF] Dr. Pratibha Ronquillo DO Work Phone: [facility] 03-18-2025 18:27-0400 Diastolic blood pressure 81 mm[Hg] Dr. Pratibha Ronquillo DO Work Phone: [facility] 03-18-2025 18:27-0400 Heart rate 78 /min Dr. Pratibha Ronquillo DO Work Phone: [facility] 03-18-2025 18:27-0400 Respiratory rate 16 /min Dr. Pratibha Ronquillo DO Work Phone: [facility] 03-18-2025 18:27-0400 SaO2% (BldA) [Mass fraction] 99 % Dr. Pratibha Ronquillo DO Work Phone: [facility] 03-18-2025 18:27-0400 Systolic blood pressure 145 mm[Hg] Dr. Pratibha Ronquillo DO Work Phone: [facility] 03-18-2025 13:40-0400 Body height 180.[address] Pratibha Ronquillo DO Work Phone: [facility] 03-18-2025 13:40-0400 Body mass index (BMI) [Ratio] 27.6 kg/m2 Dr. Pratibha Ronquillo DO Work Phone: [facility] 03-18-2025 13:40-0400 Body weight 89.[address] Pratibha Ronquillo DO Work Phone: [facility] 03-15-2025 10:46-0400 Heart rate 67 /min Bony Garcia MD, PhD Work Phone: 4(204)719-573422 [address] 03-15-2025 10:46-0400 Respiratory rate 18 /min Bony Garcia MD, PhD Work Phone: 7(283)617-211579 [place] [address] 03-15-2025 10:46-0400 SaO2% (BldA) [Mass fraction] 95 % Bony Garcia MD, PhD Work Phone: 2(785)789-830079 [place] [address] 03-15-2025 09:36-0400 Diastolic blood pressure 76 mm[Hg] Bony Garcia MD, PhD Work Phone: 0(387)513-088779 [place] [address] 03-15-2025 09:36-0400 Systolic blood pressure 130 mm[Hg] Bony Garcia MD, PhD Work Phone: 6(950)608-174379 [place] [address] 03-15-2025 07:58-0400 Body temperature 98.2 [degF] Bony Garcia MD, PhD Work Phone: 2(906)520-675079 [place] [address] 03-15-2025 05:00-0400 Body mass index (BMI) [Ratio] 32.8 kg/m2 Bony Garcia MD, PhD Work Phone: [facility] 03-15-2025 05:00-0400 Body weight 103.69 kg Bony Garcia MD, PhD Work Phone: [facility] Comment on above: Standing weight. 03-12-2025 01:00-0400 Body height 177.8 cm Bony Garcia MD, PhD Work Phone: [facility] 02-10-2025 15:00-0400 Body mass index (BMI) [Ratio] 32.3 kg/m2 Anirudh Rutledge MD Work Phone: [facility] 02-10-2025 15:00-0400 Body weight 102.1 kg Anirudh Rutledge MD Work Phone: 9(716)833-823108 [place] [address] 02-10-2025 13:55-0400 Body height 177.8 cm Luis Antonio Arias MD Work Phone: [facility] 02-10-2025 13:55-0400 Body mass index (BMI) [Ratio] 32.28 kg/m2 Luis Antonio Arias MD Work Phone: [facility] 02-10-2025 13:55-0400 Body weight 102.06 kg Luis Antonio Arias MD Work Phone: [facility] 02-10-2025 13:55-0400 Diastolic blood pressure 84 mm[Hg] Luis Antonio Arias MD Work Phone: [facility] 02-10-2025 13:55-0400 Heart rate 75 /min Luis Antonio Arias MD Work Phone: [facility] 02-10-2025 13:55-0400 SaO2% (BldA) [Mass fraction] 97 % Luis Antonio Arias MD Work Phone: [facility] 02-10-2025 13:55-0400 Systolic blood pressure 130 mm[Hg] Luis Antonio Arias MD Work Phone: [facility] 02-03-2025 14:15-0400 Diastolic blood pressure 87 mm[Hg] Mauricio Tadeo MD Work Phone: 6(507)543-756152 [place] [address] 02-03-2025 14:15-0400 Heart rate 71 /min Mauricio Tadeo MD Work Phone: 1(562)619-453652 [place] [address] 02-03-2025 14:15-0400 Respiratory rate 16 /min Mauricio Tadeo MD Work Phone: 8(828)077-977452 [place] [address] 02-03-2025 14:15-0400 SaO2% (BldA) [Mass fraction] 98 % Mauricio Tadeo MD Work Phone: 5(679)138-570452 [place] [address] 02-03-2025 14:15-0400 Systolic blood pressure 136 mm[Hg] Mauricio Tadeo MD Work Phone: 1(682)216-880152 [place] [address] 02-03-2025 10:17-0400 Body height 177.8 cm Mauricio Tadeo MD Work Phone: 8(496)332-412752 [place] [address] 02-03-2025 10:17-0400 Body mass index (BMI) [Ratio] 31.73 kg/m2 Mauricio Tadeo MD Work Phone: 1(541)709-076752 [place] [address] 02-03-2025 10:17-0400 Body temperature 97.81 [degF] Mauricio Tadeo MD Work Phone: 9(238)807-477452 [place] [address] 02-03-2025 10:17-0400 Body weight 100.3 kg Mauricio Tadeo MD Work Phone: 3(967)402-245752 [place] [address] 01-17-2025 10:05-0400 Heart rate 85 /min Luis Antonio Arias MD Work Phone: 4(964)496-775152 [place] [address] 07-21-2023 10:43-0500 Body height 177.8 cm Luis Antonio Arias MD Work Phone: [facility] 07-21-2023 10:43-0500 Body mass index (BMI) [Ratio] 30.12 kg/m2 Luis Antonio Arias MD Work Phone: [facility] 07-21-2023 10:43-0500 Body weight 95.21 kg Luis Antonio Arias MD Work Phone: [facility] 07-21-2023 10:43-0500 Diastolic blood pressure 77 mm[Hg] Luis Antonio Arias MD Work Phone: [facility] 07-21-2023 10:43-0500 Heart rate 79 /min Luis Antonio Arias MD Work Phone: [facility] 07-21-2023 10:43-0500 Systolic blood pressure 132 mm[Hg] Luis Antonio Arias MD Work Phone: [facility] 12-25-2022 14:32-0400 Body height 179.1 cm Teresita Rawls MD Work Phone: [facility] 12-25-2022 14:32-0400 Body mass index (BMI) [Ratio] 30.55 kg/m2 Teresita Rawls MD Work Phone: [facility] 12-25-2022 14:32-0400 Body temperature 96.91 [degF] Teresita Rawls MD Work Phone: [facility] 12-25-2022 14:32-0400 Body weight 97.98 kg Teresita Rawls MD Work Phone: [facility] 12-25-2022 14:32-0400 Heart rate 78 /min Teresita Rawls MD Work Phone: [facility] 12-25-2022 14:32-0400 SaO2% (BldA) [Mass fraction] 96 % Teresita Rawls MD Work Phone: [facility] 08-14-2022 14:15-0500 Body temperature 98.4 [degF] Robin Mcguire MD Work Phone: [facility] 08-14-2022 14:15-0500 Diastolic blood pressure 82 mm[Hg] Robin Mcguire MD Work Phone: [facility] 08-14-2022 14:15-0500 Heart rate 89 /min Robin Mcguire MD Work Phone: [facility] 08-14-2022 14:15-0500 Respiratory rate 18 /min Robin Mcguire MD Work Phone: [facility] 08-14-2022 14:15-0500 SaO2% (BldA) [Mass fraction] 93 % Robin Mcguire MD Work Phone: [facility] 08-14-2022 14:15-0500 Systolic blood pressure 130 mm[Hg] Robin Mcguier MD Work Phone: [facility] 08-14-2022 08:53-0500 Body height 179.1 cm Robin Mcguire MD Work Phone: [facility] 08-14-2022 08:53-0500 Body mass index (BMI) [Ratio] 30.27 kg/m2 Robin Mcguire MD Work Phone: [facility] 08-14-2022 08:53-0500 Body weight 97.07 kg Robin Mcguire MD Work Phone: [facility] 07-31-2022 07:16-0500 Body height 179.1 cm Susan Vernon APRN-AERONAUTICAL DRAFTER Work Phone: [facility] 07-31-2022 07:16-0500 Body mass index (BMI) [Ratio] 30.27 kg/m2 Susan Vernon APRN-AERONAUTICAL DRAFTER Work Phone: [facility] 07-31-2022 07:16-0500 Body weight 97.07 kg Susan Vernon PROFESSOR OF VOICE-AERONAUTICAL DRAFTER Work Phone: [facility] 07-31-2022 07:16-0500 Diastolic blood pressure 86 mm[Hg] Susan Vernon PROFESSOR OF VOICE-AERONAUTICAL DRAFTER Work Phone: [facility] 07-31-2022 07:16-0500 Heart rate 74 /min Susan Vernon PROFESSOR OF VOICE-AERONAUTICAL DRAFTER Work Phone: [facility] 07-31-2022 07:16-0500 Respiratory rate 16 /min Susan Vernon PROFESSOR OF VOICE-AERONAUTICAL DRAFTER Work Phone: [facility] 07-31-2022 07:16-0500 SaO2% (BldA) [Mass fraction] 97 % Susan Vernon PROFESSOR OF VOICE-AERONAUTICAL DRAFTER Work Phone: [facility] 07-31-2022 07:16-0500 Systolic blood pressure 138 mm[Hg] Susan Vernon PROFESSOR OF VOICE-AERONAUTICAL DRAFTER Work Phone: [facility] 07-03-2022 09:12-0400 Diastolic blood pressure 90 mm[Hg] Teresita Rawls MD Work Phone: [facility] 07-03-2022 09:12-0400 Heart rate 77 /min Teresita Rawls MD Work Phone: [facility] 07-03-2022 09:12-0400 Systolic blood pressure 151 mm[Hg] Teresita Rawls MD Work Phone: [facility] 07-03-2022 08:39-0400 Body height 180.3 cm Teresita Rawls MD Work Phone: [facility] 07-03-2022 08:39-0400 Body mass index (BMI) [Ratio] 28.59 kg/m2 Teresita Rawls MD Work Phone: 0(242)908-260276 [place] [address] 07-03-2022 08:39-0400 Body temperature 97.3 [degF] Teresita Rawls MD Work Phone: 7(707)567-180964 [place] [address] 07-03-2022 08:39-0400 Body weight 92.99 kg Teresita Rawls MD Work Phone: 0(070)653-891964 [place] [address] 06-26-2022 09:32-0400 Diastolic blood pressure 96 mm[Hg] Teresita Rawls MD Work Phone: 3(062)672-061864 [place] [address] 06-26-2022 09:32-0400 Heart rate 79 /min Teresita Rawls MD Work Phone: 1(505)035-352364 [place] [address] 06-26-2022 09:32-0400 Systolic blood pressure 149 mm[Hg] Teresita Rawls MD Work Phone: 1(926)251-878264 [place] [address] 06-26-2022 09:08-0400 Body height 180.3 cm Teresita Ralws MD Work Phone: 6(141)622-062364 [place] [address] 06-26-2022 09:08-0400 Body mass index (BMI) [Ratio] 28.59 kg/m2 Teresita Rawls MD Work Phone: 8(801)788-667364 [place] [address] 06-26-2022 09:08-0400 Body temperature 97.2 [degF] Teresita Rawls MD Work Phone: 6(313)743-264764 [place] [address] 06-26-2022 09:08-0400 Body weight 92.99 kg Teresita Rawls MD Work Phone: 1(556)142-456364 [place] [address] 06-26-2022 09:08-0400 Respiratory rate 9 /min Teresita Rawls MD Work Phone: 8(218)833-046764 [place] [address] 04-10-2022 11:43-0400 Diastolic blood pressure 88 mm[Hg] Teresita Rawls MD Work Phone: [facility] 04-10-2022 11:43-0400 Heart rate 70 /min Teresita Rawls MD Work Phone: [facility] 04-10-2022 11:43-0400 Systolic blood pressure 143 mm[Hg] Teresita Rawls MD Work Phone: [facility] 04-10-2022 10:49-0400 Body height 180.3 cm Teresita Rawls MD Work Phone: [facility] 04-10-2022 10:49-0400 Body mass index (BMI) [Ratio] 28.59 kg/m2 Teresita Rawls MD Work Phone: [facility] 04-10-2022 10:49-0400 Body temperature 97.2 [degF] Teresita Rawls MD Work Phone: [facility] 04-10-2022 10:49-0400 Body weight 92.99 kg Teresita Rawls MD Work Phone: [facility] 03-06-2022 11:20-0400 Diastolic blood pressure 86 mm[Hg] Teresita Rawls MD Work Phone: [facility] 03-06-2022 11:20-0400 Heart rate 74 /min Teresita Rawls MD Work Phone: [facility] 03-06-2022 11:20-0400 Systolic blood pressure 146 mm[Hg] Teresita Rawls MD Work Phone: [facility] 03-06-2022 10:39-0400 Body height 180.3 cm Teresita Rawls MD Work Phone: [facility] 03-06-2022 10:39-0400 Body mass index (BMI) [Ratio] 29.29 kg/m2 Teresita Rawls MD Work Phone: [facility] 03-06-2022 10:39-0400 Body temperature 97.5 [degF] Teresita Rawls MD Work Phone: [facility] 03-06-2022 10:39-0400 Body weight 95.25 kg Teresita Rawls MD Work Phone: [facility] 02-18-2022 08:51-0400 Body height 180.[address] Pratibha Ronquillo Work Phone: [facility] Work Phone: 02-18-2022 08:51-0400 Body mass index (BMI) [Ratio] 29.5 kg/m2 Dr. Pratibha Ronquillo Work Phone: [facility] Work Phone: 02-18-2022 08:51-0400 Body weight 96.[address] Pratibha Ronquillo Work Phone: [facility] Work Phone: 02-18-2022 08:51-0400 Diastolic blood pressure 86 mm[Hg] Dr. Pratibha Ronquillo Work Phone: [facility] Work Phone: 02-18-2022 08:51-0400 Heart rate 74 /min Dr. Pratibha Ronquillo Work Phone: [facility] Work Phone: 02-18-2022 08:51-0400 Respiratory rate 16 /min Dr. Pratibha Ronquillo Work Phone: [facility] Work Phone: 02-18-2022 08:51-0400 Systolic blood pressure 149 mm[Hg] Dr. Pratibha Ronquillo Work Phone: [facility] Work Phone: 01-03-2022 11:44-0400 Body height 180.3 cm Teresita Rawls MD Work Phone: [facility] 01-03-2022 11:44-0400 Body mass index (BMI) [Ratio] 29.29 kg/m2 Teresita Rawls MD Work Phone: [facility] 01-03-2022 11:44-0400 Body temperature 96.6 [degF] Teresita Rawls MD Work Phone: [facility] 01-03-2022 11:44-0400 Body weight 95.25 kg Teresita Rawls MD Work Phone: [facility] 01-03-2022 11:44-0400 Heart rate 91 /min Teresita Rawls MD Work Phone: [facility] 01-03-2022 11:44-0400 SaO2% (BldA) [Mass fraction] 96 % Teresita Rawls MD Work Phone: [facility] Encounters Encounter Date Encounter Type Care Provider Facility Start: 06-02-2025 End: 06-02-2025 Office outpatient visit 25 minutes Luis Antonio Arias MD Work Phone: [facility] Comment on above: Atherosclerosis of n ative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 (Primary Dx); H/O heart artery stent; S/P CABG x 3; Angina pectoris; Hyperlipidemia, unspecified hyperlipidemia type Start: 06-02-2025 ambulatory PRATIBHA RONQUILLO Facilit y:[facility] Start: 05-28-2025 End: 05-30-2025 Evaluation and management of inpatient Nicole Salinas MD, PhD Work Phone: [facility] Comment on above: NSTEMI (non-ST eleva arpit myocardial infarction) Start: 05-27-2025 End: 05-28-2025 Emergency department patient visit PRATIBHA RONQUILLO Facility:[facility] Start: 05-27-2025 ambulatory Bony Jose Facility: [facility] Start: 05-12-2025 ambulatory PRATIBHA RONQUILLO Facilit y:[facility] Start: 05-12-2025 End: 05-12-2025 Subsequent hospital visit by physician Pratibha Ronquillo DO Work Phone: [facility] Comment on above: Arrived Start: 05-11-2025 Registered Recurring Bony Fonseca -Cardiac Rehab Work Phone: Start: 05-10-2025 End: 05-10-2025 Office outpatient visit 25 minutes Luis Antonio Arias MD Work Phone: [facility] Comment on above: 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 Pratibha Ronquillo DO Work Phone: -Cardiac Rehab Start: 05-06-2025 End: 05-08-2025 Discharged Recurring Bony Garcia MD -Cardiac Rehab Work Phone: Start: 05-04-2025 End: 05-04-2025 Office outpatient new 45 minutes Armani Rae MD Work Phone: [facility] Comment on above: Hypersomnia (Primary Dx); ILD (interstitial lung disease) Start: 05-04-2025 ambulatory YADIDELMA ALDRICHBartolome Facility :[facility] Start: 04-14-2025 End: 04-14-2025 Office outpatient visit 25 minutes Marilyn Marie APRN-AERONAUTICAL DRAFTER Work Phone: [facility] Comment on above: S/P CABG x 3 (Primar y Dx); Hx of percutaneous transluminal coronary angioplasty; Mixed hyperlipidemia Start: 04-14-2025 ambulatory SELF SELF Facility:[facility] Start: 04-02-2025 End: 04-05-2025 Evaluation and management of inpatient Bony Garcia MD, PhD Work Phone: [facility] Comment on above: S/P CABG (coronary a rtery bypass graft) Start: 04-01-2025 End: 04-02-2025 Emergency department patient visit Dr. Pratibha Ronquillo DO Work Phone: -Emergency Department Work Phone: Start: 03-30-2025 End: 03-30-[address] Pratibha Ronquillo DO Work Phone: -Cardiac Rehab Start: 03-30-2025 End: 03-30-2025 Patient encounter procedure Bony Garcia MD -Cardiac Rehab Work Phone: Start: 03-30-2025 End: 03-30-2025 ambulatory Pratibha Ronquillo Facility:[facility] Start: 03-18-2025 ambulatory Randal Flores Facility: [facility] Start: 03-18-2025 Non-patient / Non-visit Dr. Randal young MD -[facility] Start: 03-18-2025 End: 03-18-2025 Emergency department patient visit Dr. Pratibha Ronquillo DO Work Phone: -Emergency Department Work Phone: Start: 03-10-2025 End: 03-15-2025 Evaluation and management of inpatient Bony Garcia MD, PhD Work Phone: [facility] Comment on above: Elective surgical pr ocedure Start: 03-08-2025 ambulatory BONY Parrish y:[facility] Start: 03-08-2025 ambulatory BONY GARCIA Facilit y:[facility] Start: 03-04-2025 ambulatory PRATIBHA RONQUILLO Facilit y:[facility] Start: 03-04-2025 End: 03-04-2025 Subsequent hospital visit by physician Yadi Leon PROFESSOR OF VOICE-AERONAUTICAL DRAFTER Work Phone: Department of Radiology Comment on above: Arrived Start: 03-04-2025 ambulatory PRATIBHA RONQUILLO Facilit y:[facility] Start: 03-04-2025 End: 03-04-2025 Subsequent hospital visit by physician Yadi Leon PROFESSOR OF VOICE-AERONAUTICAL DRAFTER Work Phone: Cardi[facility] Comment on above: Arrived Start: 02-22-2025 ambulatory ANIRUDH RUTLEDGE Facility: [facility] Start: 02-10-2025 End: 02-10-2025 Office outpatient visit 25 minutes Luis Antonio Arias MD Work Phone: [facility] Comment on above: Angina pectoris (Jessi carmen Dx); 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; H/O heart artery stent; Hyperlipidemia, unspecified hyperlipidemia type Start: 02-10-2025 ambulatory [facility] ANTONIO ARIAS Facili ty:[facility] Start: 02-10-2025 End: 02-10-2025 Subsequent hospital visit by physician Anirudh Rutledge MD Work Phone: [facility] Start: 02-08-2025 Encounter for preprocedural cardiovascular examination Luis Antonio Arias [facility] Start: 02-03-2025 End: 02-03-2025 ambulatory MAURICIO TADEO Facility:[facility] Start: 02-03-2025 End: 02-03-2025 Subsequent hospital visit by physician Mauricio Tadeo MD Work Phone: [facility] Comment on above: Angina pectoris Start: 02-02-2025 End: 02-02-[address] Pratibha Ronquillo DO Work Phone: [facility] Work Phone: Start: 02-02-2025 End: 02-02-[address] Luis Antonio Arias MD -Laboratory Work Phone: Start: 02-02-2025 End: 02-02-2025 ambulatory Pratibha Ronquillo Facility:[facility] Start: 01-18-2025 End: 01-18-2025 Telephone encounter Kelin Albarran RN [facility] Comment on above: Outside Medical [place] rds Request Start: 01-17-2025 End: 01-17-2025 Office outpatient visit 25 minutes Luis Antonio Arias MD Work Phone: [facility] Comment on above: Angina pectoris (Jessi carmen Dx); 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; H/O heart artery stent; Hyperlipidemia, unspecified hyperlipidemia type; Hx of percutaneous transluminal coronary angioplasty Start: 01-17-2025 ambulatory [facility] ANTONIO TELLEZCONRAD Carmonai ty:[facility] Start: 01-14-2025 End: 01-14-[address] Pratibha Ronquillo DO Work Phone: [facility] Work Phone: Start: 01-14-2025 End: 01-14-[address] Pratibha Ronquillo DO -Laboratory Work Phone: Start: 01-13-2025 End: 01-14-[address] Pratibha Ronquillo DO Work Phone: [facility] Work Phone: Start: 01-13-2025 End: 01-13-[address] Pratibha Ronquillo DO -Laboratory Work Phone: Start: 01-13-2025 End: 01-13-2025 ambulatory Pratibha Ronquillo Facility:[facility] Start: 12-09-2024 End: 12-09-[address] Pratibha Ronquillo DO Work Phone: [facility] Work Phone: Start: 12-09-2024 End: 12-09-[address] Omar Tian MD -Laboratory, Specimen Work Phone: Start: 12-09-2024 End: 12-09-2024 ambulatory Omar Tian Facility:[facility] Start: 08-26-2024 ambulatory Pratibha Ronquillo Facility: [facility] Start: 07-09-2024 End: 07-09-2024 ambulatory Samantha Woodard Facility:[facility] Start: 03-16-2024 End: 03-16-2024 Office outpatient visit 25 minutes Robin Mcguire MD Work Phone: [facility] [place] Comment on above: S/P shoulder surgery (Primary Dx) Start: 03-16-2024 End: 03-16-2024 Subsequent hospital visit by physician Robin Mcguire MD Work Phone: [facility] [place] Comment on above: Arrived Start: 12-30-2023 End: 12-30-2023 ambulatory [facility] Work Phone: Start: 12-30-2023 End: 12-30-2023 Patient encounter procedure [facility]-Cat Scan, [facility] Work Phone: Start: 12-25-2023 End: 12-25-2023 ambulatory [facility] Work Phone: Start: 12-25-2023 End: 12-25-2023 Patient encounter procedure [facility]-Laboratory, Specimen Work Phone: Start: 09-03-2023 End: 09-03-2023 Subsequent hospital visit by physician Luis Antonio Arias MD Work Phone: [facility] [place] Start: 07-21-2023 End: 07-21-2023 Office outpatient new 45 minutes Luis Antonio Arias MD Work Phone: [facility] [place] Comment on above: Atherosclerosis of n ative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 (Primary Dx); Hyperlipidemia, unspecified hyperlipidemia type; Hx of percutaneous transluminal coronary angioplasty; Encounter for screening for coronary artery disease Start: 07-11-2023 Telephone encounter Kelin Jefferson RN [facility] [place] Comment on above: Outside Medical [place] rds Request Start: 03-17-2023 End: 03-17-2023 Office outpatient visit 25 minutes Robin Mcguire MD Work Phone: [facility] [place] Comment on above: Left shoulder pain, unspecified chronicity (Primary Dx) Start: 03-17-2023 End: 03-17-2023 Subsequent hospital visit by physician Robin Mcguire MD Work Phone: [facility] [place] Comment on above: Arrived Start: 12-25-2022 End: 12-25-2022 Office outpatient visit 15 minutes Teresita Rawls MD Work Phone: [facility] Comment on above: 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) Start: 12-02-2022 End: 12-02-2022 Office outpatient visit 25 minutes Robin Mcguire MD Work Phone: [facility] [place] Comment on above: S/P shoulder surgery (Primary Dx) Start: 12-02-2022 End: 12-02-2022 Subsequent hospital visit by physician Robin Mcguire MD Work Phone: Imaging [facility]patient [facility] Comment on above: Arrived Start: 11-08-2022 End: 11-08-2022 ambulatory [facility] Work Phone: Start: 11-08-2022 End: 11-08-2022 Patient encounter procedure [facility]-Melanie, Delbert Garner [facility] Start: 09-30-2022 End: 09-30-2022 Postop follow up visit related to original px Robin Mcguire MD Work Phone: [facility] Comment on above: S/P shoulder surgery (Primary Dx) Start: 09-30-2022 End: 09-30-2022 Subsequent hospital visit by physician Robin Mcguire MD Work Phone: [facility] Comment on above: Arrived Start: 08-28-2022 End: 08-28-2022 Postop follow up visit related to original px Betzaida Bueno PA-C Work Phone: Sports Medicine [facility] Comment on above: S/P shoulder surgery (Primary Dx) Start: 08-28-2022 End: 08-28-2022 Subsequent hospital visit by physician Juan De PA-C Work Phone: Imaging [facility] [employer] [facility] Comment on above: Arrived Start: 08-14-2022 End: 08-14-2022 Evaluation and management of inpatient Robin Mcguire MD Work Phone: [facility] Comment on above: Status post shoulder replacement Start: 08-09-2022 End: 08-09-[address] Pratibha Ronquillo Work Phone: [facility] Work Phone: Start: 08-09-2022 End: 08-09-[address] Pratibha Ronquillo Work Phone: [facility]-Laboratory, Specimen Start: 08-06-2022 End: 08-06-2022 Subsequent hospital visit by physician Amarjit Marroquin MD Work Phone: [facility] [place] Comment on above: Arrived Start: 07-31-2022 End: 07-31-2022 Office outpatient visit 40 minutes Susan Valles Saulo PROFESSOR OF VOICE-[employer]ONAUTICAL DRAFTER Work Phone: Pre-Procedure Evaluation and Assessment [facility] Comment on above: Preoperative examina tion (Primary Dx); Coronary artery disease involving moapa coronary artery of moapa heart without angina pectoris; H/O heart artery stent; Mixed hyperlipidemia; Chronic GERD; Smoker; BMI 30.0-30.9,adult; Chronic left shoulder pain Start: 07-31-2022 End: 07-31-2022 Preprocedural examination done Susan Vernon PROFESSOR OF VOICE-[employer]ONAUTICAL DRAFTER Work Phone: Pre-Procedure Evaluation [facility] Assessment [facility] Start: 07-03-2022 End: 07-03-2022 Patient encounter procedure Teresita Rawls MD Work Phone: [facility] Comment on above: 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) Start: 07-03-2022 End: 07-03-2022 Subsequent hospital visit by physician Teresita Rawls MD Work Phone: [facility] Comment on above: Arrived Start: 06-26-2022 End: 06-26-2022 Patient encounter procedure Teresita Rawls MD Work Phone: [facility] Comment on above: 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 Daniel Ronquillo Work Phone: [facility] Start: 05-09-2022 End: 05-09-[address] Pratibha Ronquillo Work Phone: [facility]-Cardiovascular Services Start: 05-01-2022 End: 05-01-2022 Office outpatient visit 25 minutes Amarjit Marroquin MD Work Phone: [facility] [place] Comment on above: Right hip pain (Prim summer Dx) Start: 04-29-2022 End: 04-29-2022 Patient encounter procedure Zaheer Govea MD Work Phone: [facility] [place] Comment on above: Left shoulder pain, unspecified chronicity (Primary Dx) Start: 04-10-2022 Telephone encounter Suri Howard [facility] [place] Comment on above: Appointment Start: 04-10-2022 End: 04-10-2022 Patient encounter procedure Teresita Rawls MD Work Phone: [facility] Comment on above: 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 Pratibha Ronquillo Work Phone: [facility] Start: 01-30-2022 End: 01-30-2022 Office outpatient visit 15 minutes Amarjit Keita PA-C Work Phone: Orthopedics [facility] Comment on above: Status post right hi p replacement (Primary Dx) Start: 01-30-2022 End: 01-30-2022 Subsequent hospital visit by physician Amarjit Keita PA-C Work Phone: [facility] Comment on above: Arrived Start: 01-08-2022 End: 01-08-2022 Discharged Recurring [facility]-Physical Therapy Start: 01-08-2022 End: 01-08-2022 Patient encounter procedure Zaheer Govea MD Work Phone: [facility] Comment on above: Arthritis of left gl enohumeral joint (Primary Dx) Start: 01-08-2022 End: 01-08-2022 Office outpatient visit 25 minutes Robin Mcguire MD Work Phone: [facility] Comment on above: Left shoulder pain, unspecified chronicity (Primary Dx) Start: 01-03-2022 End: 01-03-2022 Office outpatient visit 25 minutes Teresita Rawls MD Work Phone: [facility] Comment on above: 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); Lumbar facet arthropathy; DDD (degenerative disc disease), lumbar Start: 01-02-2022 End: 01-02-2022 Subsequent hospital visit by physician Robin Mcguire MD Work Phone: [facility] [place] Comment on above: Arrived Start: 12-11-2021 End: 12-11-2021 Office consultation new/estab patient 40 min Robin Mcguire MD Work Phone: [facility] Comment on above: Arthritis of left gl enohumeral joint (Primary Dx); Left shoulder pain, unspecified chronicity Start: 12-11-2021 End: 12-11-2021 Subsequent hospital visit by physician Alvaro Chaves MD Work Phone: Imaging [facility] Comment on above: Arrived Start: 11-05-2021 End: 11-05-2021 Discharged Recurring [facility]-Physical Therapy Start: 06-25-2021 End: 06-25-2021 Admission to same day surgery center Amarjit Marroquin MD Work Phone: [facility] Comment on above: Primary osteoarthrit is of right hip; Elective surgery Start: 12-15-2020 End: 12-15-[address] RIMA Mancuso JAMES [facility] Start: 11-17-2020 End: 11-17-[address] RIMA Mancuso JAMES [facility] Start: 05-26-2009 End: 05-26-2009 Patient encounter procedure Queenie Valles (Res) Yordy Work Phone: Internal Medicine Comment on above: CAD (Coronary Artery Disease) (Primary Dx) Procedures Date Procedure Procedure Detail Performing Clinician Start: 05-30-2025 Assay of troponin quantitative Gurveer S Iveth DO Work Phone: Start: 05-30-2025 CARDIAC RHYTHM Other Ot her OT Start: 05-30-2025 2D TTE w or w/o fol w/con,fu Shira Oliveros MD Work Phone: Start: 05-30-2025 Cath plmt l hrt & ar ts w/njx & angio img s&i Nicole Salinas MD, PhD Work Phone: Start: 05-30-2025 Prq trluml coronary byp grft revasc one vessel Nicole Salinas MD, PhD Work Phone: Start: 05-30-2025 Us vasc access sits vsl patency ndl entry Nicole Salinas MD, PhD Work Phone: Start: 05-30-2025 End: 05-30-2025 ACT* LOW RANGE, POC Nicole Salinas MD, PhD Work Phone: Start: 05-30-2025 Cardiac catheterization Nicole Salinas MD, PhD Work Phone: Start: 05-30-2025 Thromboplastin time partial plasma/whole blood Gurveer S Iveth DO Work Phone: Start: 05-30-2025 End: 05-30-2025 Assay of magnesium Shira Oliveros MD Work Phone: Start: 05-29-2025 Assay of troponin quantitative Amada Singh DO Work Phone: Start: 05-29-2025 Thromboplastin time partial plasma/whole blood Anne Valles Iveth DO Work Phone: Start: 05-29-2025 Assay of troponin quantitative Shira Oliveros MD Work Phone: Start: 05-29-2025 Assay of troponin quantitative Shira Oliveros MD Work Phone: Start: 05-29-2025 Lipid 1996 panel - S isabel or Plasma Nicole Salinas MD, PhD Work Phone: Start: 05-29-2025 Hemoglobin glycosyla arpit a1c Shira Oliveros MD Work Phone: Start: 05-29-2025 Lipid panel Shira romero MD Work Phone: Start: 05-28-2025 Prothrombin time Shira Oliveros MD Work Phone: Start: 05-28-2025 Assay of troponin quantitative Shira Oliveros MD Work Phone: Start: 05-28-2025 Assay of magnesium Stephane Oliveros MD Work Phone: Start: 05-28-2025 CBC AND ELECTRONIC DIFF Shira Oliveros MD Work Phone: Start: 05-28-2025 Complete blood count with white cell differential, automated Shira Oliveros MD Work Phone: Start: 05-28-2025 Ecg routine ecg w/le ast 12 lds w/i&r Shira Oliveros MD Work Phone: Start: 05-12-2025 Radiologic exam ches t 2 views Deloris Mathur PROFESSOR OF [employer]AUT[employer]TER Work Phone: Start: 05-10-2025 Lipid 1996 panel - S isabel or Plasma Luis Antonio Arias MD Work Phone: Start: 04-14-2025 Follow-up visit Follow-up MARILYN MARIE Start: 04-05-2025 Thromboplastin time partial plasma/whole blood Cinira C Keystone PA-C Work Phone: Start: 04-05-2025 Assay of magnesium Cini ra C Keystone PA-C Work Phone: Start: 04-04-2025 Thromboplastin time partial plasma/whole blood Bony Garcia MD, PhD Work Phone: Start: 04-04-2025 Blood count hematocrit Jennifer Atkins MD Work Phone: Start: 04-04-2025 CARDIAC RHYTHM Other Ot her OT Start: 04-04-2025 Cardiac mri w/wo con trast & further seq Cinira C Carlos PA-C Work Phone: Start: 04-04-2025 Calcium ionized Cinira C Keystone PA-C Work Phone: Start: 04-04-2025 Assay of magnesium Cini ra C Carlos PA-C Work Phone: Start: 04-04-2025 Glucose measurement, blood Bony Garcia MD, PhD Work Phone: Start: 04-03-2025 Thromboplastin time partial plasma/whole blood Cinira C Keystone PA-C Work Phone: Start: 04-03-2025 Thromboplastin time partial plasma/whole blood Cinira C Carlos PA-C Work Phone: Start: 04-03-2025 Assay of troponin quantitative Meagan E Hites PA-C Work Phone: Start: 04-03-2025 Thromboplastin time partial plasma/whole blood Cinira C Keystone PA-C Work Phone: Start: 04-03-2025 End: 04-03-2025 Assay of troponin quantitative Meagan E Hites PA-C Work Phone: Start: 04-03-2025 Thromboplastin time partial plasma/whole blood Janay Gonzalez PA-C Work Phone: Start: 04-02-2025 Echo transthorc r-t 2d w/wo m-mode rec f-up/lmtd Bony Garcia MD, PhD Work Phone: Start: 04-02-2025 Assay of troponin quantitative Janay Epps Keystone PA-C Work Phone: Start: 04-02-2025 End: 04-14-2025 History of coronary artery bypass grafting S/P CABG x 3 Bony Garcia MD, PhD Work Phone: Start: 04-02-2025 Cath placement & njx coronary art angio img s&i Bony Garcia MD, PhD Work Phone: Start: 04-02-2025 End: 04-02-2025 ACT* LOW RANGE, POC Bony Garcia MD, PhD Work Phone: Start: 04-02-2025 Cardiac catheterization Bony Garcia MD, PhD Work Phone: Start: 04-02-2025 Blood count platelet automated Janay Gonzalez PA-C Work Phone: Start: 04-02-2025 Assay of troponin quantitative Meagan Greenwood PA-C Work Phone: Start: 04-02-2025 Antibody screen Bony hart MD, PhD Work Phone: Start: 04-02-2025 Radiologic exam ches t single view Meagan Kirkpatrickes PA-C Work Phone: Start: 04-02-2025 Antibody screen PRATIBHA YANG Comment on above: Performed By: #### X M #### [facility] ([facility]) [address] [place] [address] Start: 04-02-2025 JL AURIS SCREEN BY PCR Meagan Kirkpatrickes PA-C Work Phone: Start: 04-02-2025 Assay of magnesium Baron n Bartolome Kirkpatrickes PA-C Work Phone: Start: 04-02-2025 End: 04-02-2025 Hepatic function panel Meagan Greenwood PA- C Work Phone: Start: 04-01-2025 X-ray of chest, PA a nd lateral views Dr. Pratibha Ronquillo DO Work Phone: Start: 04-01-[address] Pratibha Ronquillo DO Work Phone: Start: 03-18-[address] Pratibha Ronquillo DO Work Phone: Start: 03-15-2025 CARDIAC RHYTHM Other Ot her OT Start: 03-15-2025 History of coronary artery bypass grafting S/P CABG x 3 Bony Garcia MD, PhD Work Phone: Start: 03-15-2025 Radiologic exam ches t single view Yuliana Alvarado MD Work Phone: Start: 03-15-2025 Assay of magnesium Tristan Alvarado MD Work Phone: Start: 03-14-2025 Radiologic exam ches t 2 views Ancey Vinoyi PROFESSOR OF [employer]AUT[employer]RAFTER Work Phone: Start: 03-14-2025 Radiologic exam ches t single view Ancey Vinoyi PROFESSOR OF VO[employer]AUTICAL [employer]TER Work Phone: Start: 03-14-2025 Radiologic exam ches t single view Yuliana Alvarado MD Work Phone: Start: 03-14-2025 Antibody screen Bony hart MD, PhD Work Phone: Start: 03-14-2025 Antibody screen PRATIBHA YANG Comment on above: Performed By: #### X M #### [facility] ([facility]) [address] [place] [address] Start: 03-14-2025 Assay of magnesium Tristan Alvarado MD Work Phone: Start: 03-14-2025 Blood typing serolog ic abo Yuliana Alvarado MD Work Phone: Start: 03-13-2025 Glucose measurement, blood Bony Garcia MD, PhD Work Phone: Start: 03-13-2025 Glucose measurement, blood Bony Garcia MD, PhD Work Phone: Start: 03-13-2025 Radiologic exam ches t single view Deloris Mathur PROFESSOR OF [employer]AUT[employer]TER Work Phone: Start: 03-13-2025 Glucose measurement, blood Bony Garcia MD, PhD Work Phone: Start: 03-13-2025 Radiologic exam ches t single view Yuliana Alvarado MD Work Phone: Start: 03-13-2025 Assay of magnesium Tristan Alvarado MD Work Phone: Start: 03-12-2025 Glucose measurement, blood Bony Garcia MD, PhD Work Phone: Start: 03-12-2025 Glucose measurement, blood Bony Garcia MD, PhD Work Phone: Start: 03-12-2025 Glucose measurement, blood Bony Garcia MD, PhD Work Phone: Start: 03-12-2025 Glucose measurement, blood Bony Garcia MD, PhD Work Phone: Start: 03-12-2025 Radiologic exam ches t single view Yuliana Alvarado MD Work Phone: Start: 03-12-2025 Assay of magnesium Tristan Alvarado MD Work Phone: Start: 03-11-2025 Glucose measurement, blood Bony Garcia MD, PhD Work Phone: Start: 03-11-2025 Glucose measurement, blood Bony Garcia MD, PhD Work Phone: Start: 03-11-2025 Glucose measurement, blood Bony Garcia MD, PhD Work Phone: Start: 03-11-2025 Glucose measurement, blood Bony Garcia MD, PhD Work Phone: Start: 03-11-2025 Radiologic exam ches t single view Yuliana Alvarado MD Work Phone: Start: 03-11-2025 Glucose measurement, blood Bony Garcia MD, PhD Work Phone: Start: 03-11-2025 End: 03-11-2025 Hemoglobin glycosylated a1c Madiha Courtney [facility] Work Phone: Start: 03-11-2025 End: 03-11-2025 Glucose measurement, blood Bony Garcia MD, PhD Work Phone: Start: 03-11-2025 Gases blood ph direc t jimy xcpt pulse oximitry Brenda D Bryan PROFESSOR OF [employer]AUT[employer]TER Work Phone: Start: 03-11-2025 Gases blood ph direc t jimy xcpt pulse oximitry Brenda D Bryan PROFESSOR OF VOICE-A[employer]ONAUTICAL [employer]RAFTER Work Phone: Start: 03-11-2025 Glucose measurement, blood Bony Garcia MD, PhD Work Phone: Start: 03-10-2025 Glucose measurement, blood Bony Garcia MD, PhD Work Phone: Start: 03-10-2025 Glucose measurement, blood Bony Garcia MD, PhD Work Phone: Start: 03-10-2025 Gases blood ph direc t jimy xcpt pulse oximitry Brenda D Armando PROFESSOR OF VOICE-[employer]ONAUTICAL [employer]RAFTER Work Phone: Start: 03-10-2025 ACT* LOW RANGE, POC Lino Garcia MD, PhD Work Phone: Start: 03-10-2025 Radiologic exam abdo men 1 view Yuliana Alvarado MD Work Phone: Start: 03-10-2025 Radiologic exam ches t single view Yuliana Alvarado MD Work Phone: Start: 03-10-2025 Assay of magnesium Tristan Alvarado MD Work Phone: Start: 03-10-2025 JL AURIS SCREEN BY PCR Yuliana Alvarado MD Work Phone: Start: 03-10-2025 Gases blood ph direc t jimy xcpt pulse oximitry Yuliana Alvarado MD Work Phone: Start: 03-10-2025 Glucose measurement, blood Bony Garcia MD, PhD Work Phone: Start: 03-10-2025 Retired procedure Zion Alvarado MD Work Phone: Start: 03-10-2025 Calcium ionized Bony Garcia MD, PhD Work Phone: Start: 03-10-2025 ACTIVATED CLOTTING TIME,POC Bony Garcia MD, PhD Work Phone: Start: 03-10-2025 End: 03-10-2025 ACTIVATED CLOTTING TIME,POC Bony Garcia MD, PhD Work Phone: Start: 03-10-2025 End: 03-10-2025 Calcium ionized Bony Garcia MD, PhD Work Phone: Start: 03-10-2025 End: 03-10-2025 ACTIVATED CLOTTING TIME,POC Bony Garcia MD, PhD Work Phone: Start: 03-10-2025 Calcium ionized Bony Garcia MD, PhD Work Phone: Start: 03-10-2025 ACTIVATED CLOTTING TIME,POC Bony Garcia MD, PhD Work Phone: Start: 03-10-2025 End: 03-10-2025 Cabg w/arterial graft three arterial grafts Bony Garcia MD, PhD Work Phone: Start: 03-10-2025 Glucose measurement, blood Bony Garcia MD, PhD Work Phone: Start: 03-08-[address] GARCIA Comment on above: Performed By: #### X MPO #### [facility] ([facility]) [address] [place] [address] Start: 03-08-2025 PREPARE TO TRANSFUSE OR RED BLOOD CELLS Yadi Epps Edward PROFESSOR OF VO[employer]ONAUT[employer]RAFTER Work Phone: Start: 03-08-2025 Lipid 1996 panel - S isabel or Plasma Bony Garcia MD, PhD Work Phone: Start: 03-04-2025 Spmtry w/vc expirato ry kailey w/wo mxml vol vntj Yadi Epps Edward PROFESSOR OF [employer]AUT[employer]TER Work Phone: Start: 03-04-2025 Dup-scan xtr veins complete bilateral study Yadi Epps Edward PROFESSOR OF [employer]ONAUTICAL [employer]RAFTER Work Phone: Start: 03-04-2025 Duplex scan extracra nial art compl bi study Yadi Torresjasson PROFESSOR OF VOICE-[employer]ONAUTICAL [employer]RAFTER Work Phone: Start: 02-10-2025 Echo tthrc r-t 2d w/wom-mode compl spec&colr d Anirudh Rutledge MD Work Phone: Start: 02-03-2025 Cardiac catheterization Luis Antonio Arias MD Work Phone: Start: 02-03-2025 EXTRA LIGHT BLUE TOP Ra ankit Tadeo MD Work Phone: Start: 02-03-2025 EXTRA TUBES Mauricio Tadeo MD Work Phone: Start: 02-03-2025 Creatinine blood Valeriy Bautista MD Work Phone: Start: 01-14-2025 Prostate specific an tigen measurement Dr. Pratibha Ronquillo DO Work Phone: Comment on above: This test was perfor med using the [employer] tPSA method. Measured values of a patient sample can vary depending on the testing procedure used. PSA values determined on patient samples by different testing procedures cannot be used interchangeably. If there is a change in PSA assays while monitoring therapy, sequential testing should be performed to confirm baseline values. Start: 12-09-2024 Gram stain microscopy D mehrdad Ronquillo DO Work Phone: Start: 12-09-2024 End: 12-09-[address] rPatibha Ronquillo DO Work Phone: Start: 03-16-2024 Radex shoulder compl ete minimum 2 views Robin Mcguire MD Work Phone: Start: 12-30-2023 CT of face Start: 12-30-2023 Plain chest X-ray Start: 12-25-2023 Investigation of transfusion reaction Start: 12-25-2023 Nasopharyngeal Culture Start: 09-03-2023 Echo tthrc r-t 2d w/wom-mode compl spec&colr d Luis Antonio Arias MD Work Phone: Start: 07-21-2023 History of percutane ous transluminal coronary angioplasty Hx of percutaneous transluminal coronary angioplasty Luis Antonio Arias MD Work Phone: Start: 03-17-2023 Radex shoulder compl ete minimum 2 views Robni Mcguire MD Work Phone: Start: 12-02-2022 Radex shoulder compl ete minimum 2 views Robin Mcguire MD Work Phone: Start: 09-30-2022 Radex shoulder compl ete minimum 2 views Robin Mcguire MD Work Phone: Start: 08-28-2022 Radex shoulder compl ete minimum 2 views Juan Westbrookra PA-C Work Phone: Start: 08-14-2022 Radex shoulder compl ete minimum 2 views Ishvin Yefri Cubra PA-C Work Phone: Start: 08-14-2022 US Unspecified body region during surgery Michael Castro MD Work Phone: Start: 08-06-2022 Radex hip unilateral with pelvis 2-3 views Amarjit Marroquin MD Work Phone: Start: 07-31-2022 Antibody screen Susan Vernon PROFESSOR OF [employer]AUT[employer]TER Work Phone: Start: 07-31-2022 History of placement of stent for coronary artery disease H/O heart artery stent Susan Vernon PROFESSOR OF [employer]AUT[employer]TER Work Phone: Start: 07-31-2022 Iadna s aureus ampli fied probe tq Susan Vernon PROFESSOR OF [employer]ICE-[employer]ONAUTICAL [employer]RAFTER Work Phone: Start: 07-03-2022 Dstr nrolytc agnt parverteb fct sngl lmbr/sacral Teresita Rawls MD Work Phone: Start: 06-26-2022 Dstr nrolytc agnt parverteb fct sngl lmbr/sacral Teresita Rawls MD Work Phone: Start: 05-09-2022 Radionuclide imaging of perfusion of myocardium under exercise stress Dr. Pratibha Ronquillo Work Phone: Start: 04-29-2022 Arthrocentesis aspir &/inj major jt/bursa w/us Zaheer Govea MD Work Phone: Start: 04-29-2022 US Unspecified body region Zaheer Govea MD Work Phone: Start: 04-10-2022 Njx dx/ther agt pvrt facet jt lmbr/sac 1 level Teresita Rawls MD Work Phone: Start: 03-06-2022 Njx dx/ther agt pvrt facet jt lmbr/sac 1 level Teresita Rawls MD Work Phone: Start: 01-30-2022 Radex hip unilateral with pelvis 2-3 views Marcelle Velasco PA-C Work Phone: Start: 01-08-2022 Arthrocentesis aspir &/inj major jt/bursa w/us Zaheer Govea MD Work Phone: Start: 01-02-2022 Ct upper extremity w /o contrast material Robin Mcguire MD Work Phone: Start: 12-11-2021 Radex shoulder compl ete minimum 2 views Alvaro Chaves MD Work Phone: Start: 06-25-2021 SARS-CoV-2 (COVID-19 ) RNA [Presence] in Unspecified specimen by ODESSA with probe detection Marcelle Velasco PA-C Work Phone: History of coronary artery bypass grafting S/P three vessel coronary artery bypass Bony Garcia MD, PhD Work Phone: History of coronary artery bypass grafting S/P three vessel coronary artery bypass Bony Garcia MD, PhD Work Phone: History of coronary artery bypass grafting Status post coronary artery bypass graft Dr. Pratibha Ronquillo DO Work Phone: History of coronary artery bypass grafting S/P CABG x 3 Marilyn Marie PROFESSOR OF VOICE-AERONAUTICAL DRAFTER Work Phone: History of coronary artery bypass grafting S/P CABG x 3 Luis Antonio Arias MD Work Phone: History of coronary artery bypass grafting S/P three vessel coronary artery bypass Pratibha Ronquillo DO Work Phone: History of coronary artery bypass grafting S/P CABG x 3 Luis Antonio Arias MD Work Phone: History of percutane ous transluminal coronary angioplasty Hx of percutaneous transluminal coronary angioplasty Luis Antonio Arias MD Work Phone: History of percutane ous transluminal coronary angioplasty Hx of percutaneous transluminal coronary angioplasty Mauricio Tadeo MD Work Phone: History of percutane ous transluminal coronary angioplasty Hx of percutaneous transluminal coronary angioplasty Anirudh Rutledge MD Work Phone: History of percutane ous transluminal coronary angioplasty Hx of percutaneous transluminal coronary angioplasty Marilyn Marie APRN-AERONAUTICAL DRAFTER Work Phone: History of placement of stent for coronary artery disease H/O heart artery stent Luis Antonio Arias MD Work Phone: History of placement of stent for coronary artery disease H/O heart artery stent Mauricio Tadeo MD Work Phone: History of placement of stent for coronary artery disease H/O heart artery stent Luis Antonio Arias MD Work Phone: History of placement of stent for coronary artery disease H/O heart artery stent Luis Antonio Arias MD Work Phone: History of placement of stent for coronary artery disease H/O heart artery stent Luis Antonio Arias MD Work Phone: Investigation of transfusion reaction Dr. Pratibha Ronquillo Work Phone: Investigation of transfusion reaction Nasopharyngeal Culture Dr. Charisma Ronquillo Work Phone: Nasopharyngeal Culture Plan of Treatment Date Care Activity Detail Author Start: 05-29-2030 Lipid panel LIPID SCREENING [facility] Start: 05-15-2030 Tetanus vaccination TETANUS [facility] Start: 05-10-2030 Lipid panel LIPID SCREENING [facility] Start: 03-08-2030 Lipid panel LIPID SCREENING [facility] Start: 03-15-2026 Potassium [Moles/volume] in Serum or Plasma POTASSIUM [facility] Start: 03-04-2026 Screening for malignant neoplasm of lung LUNG CANCER SCREENING [facility] Start: 12-28-2025 End: 12-28-2025 Patient encounter procedure 12/28/2025 10:00 AM EDT Office Visit [facility] [address] [address] Luis Antonio Arias MD [facility] [address] [address] [facility] [place] Start: 11-22-2025 End: 11-22-2025 Patient encounter procedure 11/22/2025 9:30 AM EDT Appointment Pulmonary Testing [facility] [address] [place] [address] Armani Rae MD [address] [place] [phone] Pulmonary Testing [facility] Start: 11-22-2025 End: 11-22-2025 Patient encounter procedure Imaging [facility] Outpatient [facility] Start: 09-14-2025 End: 09-14-2025 Patient encounter procedure 09/14/2025 10:00 AM EST Office Visit [facility] [address] [address] Luis Antonio Arias MD [address] [place] [address] [facility] [place] Start: 08-15-2025 End: 08-15-2025 Clinical Support Encounter 08/15/2025 7:20 PM EST Clinical Support Encounter [facility] [address] [place] [phone] Sleep Disorders [facility] Start: 05-12-2025 End: 05-12-2025 Patient encounter procedure [facility] Start: 05-10-2025 End: 05-10-2025 Patient encounter procedure 05/10/2025 11:30 AM EDT Office Visit [facility] [address] [address] Luis Antonio Arias MD [address] [place] [address] [facility] [place] Start: 05-09-2025 COVID-19 VACCINE ( season) COVID-19 VACCINE () [facility] Start: 05-09-2025 Influenza vaccination [facility] Start: 05-04-2025 End: 05-04-2026 CT Chest WO contrast CT CHEST WITHOUT CONTRAST Imaging Routine ILD (interstitial lung disease) Expected: 05/04/2025, Expires: 05/04/2026 [facility] Comment on above: Expected: 05/04/2025, Expires: Start: 05-04-2025 End: 05-04-2025 Patient encounter procedure 05/04/2025 10:40 AM EDT Office Visit Lung Care [facility] [address] [place] [address] Armani Rae MD [address] [place] [address] Lung Care [facility] Start: 04-14-2025 End: 04-14-2025 Patient encounter procedure [facility] Start: 04-01-2025 [facility] Start: 04-01-2025 [facility] Start: 03-18-2025 [facility] Start: 03-13-2025 End: 03-13-2026 XR Chest PA and Lateral XR CHEST PA AND LATERAL 2 VIEWS Imaging Routine S/P three vessel coronary artery bypass Expected: 03/13/2025, Expires: 03/13/2026 [facility] Comment on above: Expected: 03/13/2025, Expires: Start: 03-10-2025 End: 03-10-2025 Cabg w/arterial graft three arterial grafts CABG W/ ARTERY GRAFT OPEN 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 03/10/2025 8:15 AM EDT [facility] Start: 03-10-2025 End: 03-10-2025 Evaluation and management of inpatient [facility] Comment on above: Atherosclerosis of moapa coronary arter y 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 CABG W/ ARTERY GRAFT OPEN Start: 03-08-2025 End: 03-08-2025 Patient encounter procedure 03/08/2025 10:00 AM EDT Office Visit [facility] [address] [place] [address] Bony Garcia MD, PhD [address] [place] [phone] Recovery Rn Center [facility] Start: 02-22-2025 End: 02-22-2025 Patient encounter procedure 02/22/2025 8:00 AM EDT Office Visit Recovery [facility] [address] [place] [phone] Bony Garcia MD, PhD [address] [place] [phone] Recovery Rn [facility] Start: 02-03-2025 End: 02-03-2026 Echocardiography ECHOCARDIOGRAM Echocardiography Routine Hx of percutaneous transluminal coronary angioplasty DAVID (dyspnea on exertion) Expected: 02/03/2025, Expires: 02/03/2026 [facility] Comment on above: Expected: 02/03/2025, Expires: Start: 02-03-2025 End: 02-03-2025 Admission to same day surgery center 02/03/2025 12:00 PM EDT - 02/03/2025 1:00 PM EDT Surgery [facility] [address] [place] [phone] Ihisschedule, Cath All [address] [place] [address] CORONARY ANGIOGRAM WITH LEFT HEART CATH [facility] Comment on above: CORONARY ANGIOGRAM WITH LEFT HEART CATH Start: 02-03-2025 Subsequent hospital visit by physician 02/03/2025 12:00 PM EDT Hospital Encounter [facility] [address] [place] [address] [address] [place] [address] Angina pectoris [facility] Comment on above: Angina pectoris Start: 12-09-2024 Respiratory microbial culture Nasopharyngeal Culture [facility] Start: 12-09-2024 Source specific culture [facility] Start: 05-09-2024 COVID-19 VACCINE ( season) COVID-19 VACCINE () [facility] Start: 05-09-2024 Influenza vaccination INFLUENZA VACCINE (#1) [facility] Start: 03-15-2024 End: 03-15-2024 Patient encounter procedure 03/15/2024 10:00 AM EDT Office Visit [facility] [place] [address] [facility] [address] [place] [address] Robin Mcguire MD [address] [place] [address] [facility] Start: 12-30-2023 Plain chest X-ray Chest PA and Lateral [facility] Start: 12-30-2023 XR Chest PA and Lateral [facility] Start: 09-03-2023 End: 09-03-2023 Patient encounter procedure [facility] [place] Start: 07-21-2023 End: 07-21-2024 Echocardiography ECHOCARDIOGRAM Echocardiography Routine 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 Hyperlipidemia, unspecified hyperlipidemia type Encounter for screening for coronary artery disease Expected: 07/21/2023, Expires: 07/21/2024 [facility] Comment on above: Expected: 07/21/2023, Expires: 4 Start: 07-21-2023 End: 07-21-2024 LIPID PANEL W CALCULATED LDL LIPID PANEL W CALCULATED LDL Lab Routine 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 Hyperlipidemia, unspecified hyperlipidemia type Encounter for screening for coronary artery disease Expected: 07/21/2023, Expires: 07/21/2024 [facility] Comment on above: Expected: 07/21/2023, Expires: 4 Start: 07-21-2023 End: 07-21-2024 SPECT Heart perfusion at rest and W stress and W radionuclide IV NUC MYOCARD PERF STRESS MIBI EXERCISE Cardiac Nuclear Medicine Routine 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 Hyperlipidemia, unspecified hyperlipidemia type Encounter for screening for coronary artery disease Expected: 07/21/2023, Expires: 07/21/2024 [facility] Comment on above: Expected: 07/21/2023, Expires: Start: 07-21-2023 End: 07-21-2023 Patient encounter procedure 07/21/2023 11:00 AM EST Office Visit [facility] [address] [address] Luis Antonio Arias MD [address] [address] [facility] [place] Start: 05-09-2023 COVID-19 VACCINE ( season) COVID-19 VACCINE () [facility] Start: 05-09-2023 Influenza vaccination INFLUENZA VACCINE (#1) [facility] Start: 03-04-2023 End: 03-04-2023 Patient encounter procedure 03/04/2023 Office Visit Robin Duron MD [address] [place] [address] [facility] Start: 12-25-2022 End: 12-25-2022 Patient encounter procedure 12/25/2022 Office Visit Multispecialty Teresita Rawls MD [address] [place] [phone] Spine Care Outpatient Care [facility] Start: 12-02-2022 End: 12-02-2022 Patient encounter procedure 12/02/2022 Office Visit Robin Duron MD [address] [place] [address] [facility] Start: 11-12-2022 COVID-19 VACCINE (2 - Moderna series) COVID-19 VACCINE (2 - Moderna series) [facility] Start: 09-30-2022 End: 09-30-2022 Patient encounter procedure 09/30/2022 Office Visit Sports Medicine Robin Mcguire MD [address] [place] [address] [facility] Start: 08-28-2022 End: 08-28-2022 Patient encounter procedure 08/28/2022 Office Visit Sports Medicine Betzaida Bueno PA-C [address] [place] [address] [facility] Start: 08-14-2022 End: 08-14-2022 Arthroplasty glenohumeral joint total shoulder [facility] Start: 08-14-2022 End: 08-14-2022 Evaluation and management of inpatient [facility] Comment on above: Arthritis of left glenohumeral joint ARTHROPLASTY SHOULDE R TOTAL Left [facility] Start: 08-14-2022 End: 08-14-2022 Arthroplasty glenohumeral joint total shoulder ARTHROPLASTY SHOULDER TOTAL Arthritis of left glenohumeral joint Biceps tendinitis of left upper extremity 08/14/2022 10:42 AM EST [facility] Start: 08-06-2022 End: 08-06-2022 Patient encounter procedure [facility] Start: 07-31-2022 End: 07-31-2023 Standard ECG [facility] Comment on above: Expected: 07/31/2022, Expires: Start: 07-31-2022 End: 07-31-2022 ambulatory 07/31/2022 Pre-Operative Assessment [facility] Susan Vernon, PROFESSOR OF VOICE-AERONAUTICAL DRAFTER [address] [place] [address] Pre-Procedure Evaluation and Assessment Outpatient [facility] Start: 07-26-2022 End: 07-26-2022 ambulatory 07/26/2022 Pre-Operative Nurse Assessment [facility] Start: 07-10-2022 End: 07-10-2022 Patient encounter procedure 07/10/2022 Office Visit Amarjit Clinton MD [address] [place] [address] [facility] [place] Start: 07-03-2022 End: 07-02-2023 [facility] Comment on above: Expected: 07/03/2022, Expires: 3 1 Occurrences starti ng 07/03/2022 until 07/03/2022 Start: 07-03-2022 End: 07-03-2022 Patient encounter procedure 07/03/2022 Office Visit Multispecialty Terseita Rawls MD [address] [place] [phone] Spine Care Outpatient Care [facility] Start: 06-26-2022 End: 06-25-2023 [facility] Comment on above: Expected: 06/26/2022, Expires: 3 1 Occurrences starti ng 06/26/2022 until 06/26/2022 Start: 05-22-2022 End: 05-22-2022 Patient encounter procedure 05/22/2022 Office Visit Multispecialty Teresita Rawls MD [address] [place] [address] Spine Care Outpatient Care [facility] Start: 05-09-2022 Influenza vaccination INFLUENZA VACCINE (#1) [facility] Start: 05-01-2022 End: 05-01-2022 Patient encounter procedure 05/01/2022 Office Visit Amarjit Clinton MD [address] [place], [place] [phone] [facility] [place] Start: 04-29-2022 End: 04-29-2022 Patient encounter procedure 04/29/2022 Office Visit Sports Medicine Zaheer Govea MD [address] [place] [address] [facility] Start: 04-16-2022 End: 04-16-2022 Patient encounter procedure 04/16/2022 Office Visit Sports Medicine Zaheer Govea MD [address] [place] [address] [facility] Start: 2022 Abdominal aortic aneurysm screening ABDOMINAL AORTIC ANEURYSM HIGH RISK SCREEN [facility] Start: 2022 Pneumococcal vaccination PNEUMOCOCCAL VACCINE SERIES (1 - PCV) [facility] Start: 04-10-2022 End: 04-09-2023 [facility] Comment on above: Expected: 04/10/2022, Expires: 3 Start: 03-06-2022 End: 03-05-2023 [facility] Comment on above: Expected: 03/06/2022, Expires: 3 1 Occurrences starti ng 03/06/2022 until 03/06/2022 Start: 03-06-2022 End: 03-06-2022 Patient encounter procedure [facility] [place] Start: 02-12-2022 End: 02-12-2022 Patient encounter procedure 02/12/2022 Office Visit Orthopaedics Jen Mac PA-C [address] [place] [address] Orthopedics Outpatient Care [facility] Start: 01-08-2022 End: 01-08-2022 Patient encounter procedure 01/08/2022 Office Visit Sports Medicine Robin Mcguire MD [address] [place] [address] [facility] Start: 01-03-2022 End: 01-03-2022 Patient encounter procedure 01/03/2022 Office Visit Multispecialty Teresita Rawls MD [address] [place] [address] Spine Care Outpatient [facility] Start: 01-02-2022 End: 01-02-2022 Patient encounter procedure 01/02/2022 Appointment Computerized Tomography Scan Robin Mcguire MD [address] [place] [address] [facility] [place] Start: 12-11-2021 End: 12-11-2022 CT Shoulder - left WO contrast CT SHOULDER LEFT WITHOUT CONTRAST WITH 3D FOR SURGICAL PLANNING Imaging Routine Left shoulder pain, unspecified chronicity Expected: 12/11/2021, Expires: 12/11/2022 [facility] Comment on above: Expected: 12/11/2021, Expires: 3 Start: 05-09-2021 Influenza vaccination [facility]ZA (Season Ended) [facility] Start: 11-10-2020 LIPID SCREEN LIPID SCREEN [facility] Start: 09-25-2012 PROSTATE CANCER SCREENING DISCUSSION PROSTATE CANCER SCREENING DISCUSSION [facility] Start: 05-26-2012 DIABETES SCREEN DIABETES SCREEN [facility] Start: 2012 Prostate specific antigen measurement PROSTATE CANCER SCREENING DISCUSSION [facility] Start: 05-29-2010 Pneumococcal vaccination [facility] Start: 02-07-2008 Urine microalbumin profile DTAP,TDAP,TD (2 - Tdap) [facility] Start: 2007 Prostate specific antigen measurement PROSTATE CANCER SCREENING DISCUSSION [facility] Start: 2007 Screening for malignant neoplasm of colon [facility] Start: 2007 Screening for malignant neoplasm of lung LUNG CANCER SCREENING [facility] Start: 2007 SHINGRIX VACCINE (1 of 2) SHINGRIX VACCINE (1 of 2) [facility] Start: 2007 Zoster vaccine hzv live for subcutaneous use ZOSTER (SHINGLES) VACCINE (1 of 2) [facility] Start: 2002 Colonoscopy COLORECTAL CANCER SCREENING DISCUSSION [facility] Start: 2002 Screening for malignant neoplasm of colon COLORECTAL CANCER SCREENING DISCUSSION [facility] Start: 1997 Fasting lipid profile LIPID SCREENING [facility] Start: 1997 Lipid panel LIPID SCREENING [facility] Start: 1976 Third diphtheria, tetanus and acellular pertussis (DTaP) vaccination TDAP (ADULT) [facility] Start: 1975 HEPATITIS C SCREENING HEPATITIS C SCREENING [facility] Start: 1975 Tetanus vaccination TETANUS [facility] Start: 1972 HIV screening HIV SCREENING DISCUSSION [facility] Start: 1969 Adult depression screening assessment DEPRESSION SCREENING [facility] Start: 1969 COVID-19 VACCINE (1) COVID-19 VACCINE (1) [facility] Start: 1962 COVID-19 VACCINE (#1) COVID-19 VACCINE (#1) [facility] Start: 1962 COVID-19 VACCINE (1) COVID-19 VACCINE (1) [facility] Start: 1957 COVID-19 VACCINE (#1) COVID-19 VACCINE (#1) [facility] Start: 1957 Hepatitis C antibody, confirmatory test HEPATITIS C VIRUS SCREENING [facility] Start: 1957 Hepatitis C screening HEPATITIS C VIRUS SCREENING [facility] 6-minute walk test EXERCISE-6 VT N. WALK PFT Routine ILD (interstitial lung disease) Ordered: 05/04/2025 [facility] Comment on above: Ordered: 05/04/2025 Arthroplasty glenohumeral joint total shoulder ARTHROPLASTY SHOULDER TOTAL Arthritis of left glenohumeral joint [facility] End: 01-17-2025 Cardiac catheterization study [facility] Comment on above: One Time for 1 Occurrences starting 01/06 until 01/17/2025 Cardiac catheterizat ion study INVASIVE CARDIOVASCULAR PROCEDURE Cardiac Cath Routine NSTEMI (non-ST elevated myocardial infarction) Coronary artery disease involving moapa coronary artery of moapa heart with unstable angina pectoris 05/30/2025 10:01 AM EDT [facility] End: 03-04-2025 CT Chest WO contrast [facility] Comment on above: 1 Occurrences starting 03/04/2025 until 03/04/2025 Ecg routine ecg w/le ast 12 lds w/i&r IL ELECTROCARDIOGRAM, COMPLETE IL - OFFICE PERFORMED Routine 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 Hyperlipidemia, unspecified hyperlipidemia type Encounter for screening for coronary artery disease Ordered: 07/21/2023 [facility] Comment on above: Ordered: 07/21/2023 Ecg routine ecg w/le ast 12 lds w/i&r IL ECG ROUTINE ECG W/LEAST 12 LDS W/I&R IL - OFFICE PERFORMED Routine 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 H/O heart artery stent Hyperlipidemia, unspecified hyperlipidemia type Ordered: 01/17/2025 [facility] Comment on above: Ordered: 01/17/2025 Ecg routine ecg w/le ast 12 lds w/i&r IL ECG ROUTINE ECG W/LEAST 12 LDS W/I&R IL - OFFICE PERFORMED Routine 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 H/O heart artery stent S/P CABG x 3 Hyperlipidemia, unspecified hyperlipidemia type Angina pectoris Ordered: 06/02/2025 [facility] Comment on above: Ordered: 06/02/2025 End: 03-10-2025 ECHOCARDIOGRAM TRANSESOPHAGEAL ([place]) IN OR - IMAGES ECHOCARDIOGRAM TRANSESOPHAGEAL ([place]) IN OR - IMAGES Imaging Routine One Time for 1 Occurrences starting 03/10/2025 until 03/10/2025 [facility] Comment on above: One Time for 1 Occurrences starting 11/2024 until 03/10/2025 End: 05-30-2025 Echocardiography ECHOCARDIOGRAM Echocardiography STAT One Time for 1 Occurrences starting 05/30/2025 until 05/30/2025 [facility] Work Phone: Comment on above: One Time for 1 Occurrences starting 05/10 until 05/30/2025 Measurement of respiratory function PFT STANDARD PFT Routine 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 03/04/2025 9:39 AM EDT [facility] Measurement of respiratory function PFT STANDARD PFT Routine ILD (interstitial lung disease) Ordered: 05/04/2025 [facility] Comment on above: Ordered: 05/04/2025 Patient Education ED Cellulitis [facility] Work Phone: Polysomnography SLEEP STUDY - DI AGNOSTIC PFT Routine Hypersomnia Ordered: 05/04/2025 [facility] Comment on above: Ordered: 05/04/2025 Radionuclide imaging of perfusion of myocardium under exercise stress [facility] Work Phone: End: 03-15-2025 Standard ECG ECG ECG Routine One Time for 1 Occurrences starting 03/15/2025 until 03/15/2025 [facility] Comment on above: One Time for 1 Occurrences starting 04/2025 until 03/15/2025 End: 04-02-2025 Standard ECG [facility] Comment on above: One Time for 1 Occurrences starting 03/09 until 04/02/2025 SURG PATH REQUEST [facility] Comment on above: Release Upon Ordering for 1 Occurrences starting 03/10/2025, 1 completed US Heart [facility] Work Phone: End: 03-10-2025 US IMAGING ANESTHESIA OR US IMAGING ANESTHESIA OR Imaging Routine One Time for 1 Occurrences starting 03/10/2025 until 03/10/2025 [facility] Comment on above: One Time for 1 Occurrences starting 11/2024 until 03/10/2025 US Unspecified body region US [facility]ING SPORTS MEDICINE Imaging Routine Arthritis of left glenohumeral joint Ordered: 01/08/2022 [facility] Comment on above: Ordered: 01/08/2022 End: 03-10-2025 US Unspecified body region US IMAGING REGIONAL ANESTHESIA Imaging Routine One Time for 1 Occurrences starting 03/10/2025 until 03/10/2025 [facility] Comment on above: One Time for 1 Occurrences starting 11/2024 until 03/10/2025 End: 08-14-2022 US Unspecified body region during surgery US IMAGING OR Imaging Routine One Time for 1 Occurrences starting 08/14/2022 until 08/14/2022 [facility] Comment on above: One Time for 1 Occurrences starting 03/2022 until 08/14/2022 Immunizations Immunization Date Immunization Notes Care Provider Henry randall 06-03-2023 influenza virus vaccine, unspecified formulation Robin Mcguire MD Work Phone: [facility] 06-30-2022 influenza virus vaccine, unspecified formulation Robin Mcguire MD Work Phone: [facility] 07-23-2021 influenza virus vaccine, unspecified formulation Teresita Rawls MD Work Phone: [facility] 02-06-1998 diphtheria and tetan us toxoids, adsorbed for pediatric use Queenie Scales Work Phone: [facility] Payers Date Payer Category Payer Self-pay [id number] 2024 Unknown [id number] 2022 Managed Care (unspecified) MEDICARE SUPPLEMENT [id number] 2022 Medicare [id number]. 1.13.172.2.7 .[id number] 2022 Medicare [id number] 2022 Unknown [id number] 2021 Unknown [id number]. 1.13.172.2.7 .3.286507.315 2016 Unknown [id number] 2004 Unknown ANTHEM BLUE ACCE SS PPO [id number] 2004-2016 PPO [id number] .[id number] 2004 Self-pay SELF PAY HSP/MED ICAL SELF PAY [id number] 2004-2015 SELF PAY Indemnity [id number] [id number] .3.730197.315 1957 Unknown [id number] 2.840.1.045916.3.579.2.6 51 1957 Unknown [id number] 2.840.1.864176.3.579.2.6 51 1957 Unknown [id number] 2.840.1.503318.3.579.2.5 94 1957 Unknown [id number] 2.840.1.272469.3.579.2.5 94 1957 Unknown [id number] 2.840.1.144182.3.579.2.5 94 1957 Unknown [id number] 2.16.840.1.367891.3.579.2.5 94 1957 Unknown [id number] 2.16840.1.460668.3.579.2.5 94 1957 Unknown [id number] 2.840.1.759156.3.579.2.5 94 1957 Unknown [id number] 2.16.840.1.394482.3.579.2.5 94 - Unknown [id number] 2.16.840.1.765259.3.579.2.5 94 - Unknown [id number] 2.16.840.1.041984.3.579.2.5 94 1957 Unknown [id number] 2.16.840.1.943173.3.579.2.5 94 - Unknown [id number] 2.16.840.1.820467.3.579.2.5 94 1957 Unknown [id number] 2.840.1.243459.3.579.2.5 94 1957 Unknown [id number] 2.840.1.383275.3.579.2.5 94 1957 Unknown [id number] 2.840.1.274369.3.579.2.5 94 - Unknown [id number] 2..840.1.292357.3.579.2.5 94 1957 Unknown [id number] 2.16.840.1.204279.3.579.2.5 94 - Unknown [id number] 2..840.1.932766.3.579.2.5 94 1957 Unknown [id number] 2.16.840.1.668983.3.579.2.5 94 - Unknown [id number] 2.16.840.1.551827.3.579.2.5 94 1957 Unknown [id number] 2.16.840.1.433747.3.579.2.5 94 - Unknown [id number] 2.16.840.1.087351.3.579.2.5 94 Unknown [id number] 2.16.840.1.290621.3.579.2.4 62 Unknown [id number] 2.16.840.1.683014.3.579.2.4 62 Unknown [id number] 2.16.840.1.989375.3.579.2.4 62 Unknown [id number] 2.16.840.1.052306.3.579.2.4 62 Unknown [id number] 2.16.840.1.313299.3.579.2.4 62 Unknown [id number] 2.16.840.1.219008.3.579.2.4 62 Unknown [id number] 2.16.840.1.204734.3.579.2.4 62 Unknown [id number] 2.16.840.1.729705.3.579.2.4 62 Unknown [id number] 2.16.840.1.406935.3.579.2.4 62 Unknown [id number] 2.16.840.1.691365.3.579.2.4 62 Unknown [id number] 2.16.840.1.950066.3.579.2.4 62 Unknown [id number] 2.16.840.1.089737.3.579.2.4 62 Social History Date Type Detail Facility Start: 05-22-2009 End: 03-18-2025 Tobacco smoking status VTIS Current every day smoker [facility] Start: 09-08-1974 End: 06-05-2021 History of tobacco use Cigarette Smoker [facility] Work Phone: Start: 05-22-2009 End: 05-29-2025 Cigarettes smoked current (pack per day) - Reported [facility] Start: 05-22-2009 End: 12-25-2022 Alcohol intake Current drinker of alcohol (finding) [facility] Start: 1955 Sex Assigned At Not on file [facility] Start: 06-25-2021 End: 04-01-2025 Tobacco smoking status NHIS Ex-smoker [facility] End: 06-05-2021 History of tobacco use Current smoker [facility] Start: 06-25-2021 End: 02-03-2025 Tobacco use and exposure Smokeless tobacco non-user [facility] Start: 06-25-2021 History SDOH Alcohol Comment Less than once a week [facility] Start: 12-01-2021 End: 12-11-2021 Exposure to SARS-CoV-2 (event) Not sure [facility] Start: 08-24-2021 End: 02-18-2022 Tobacco smoking status NHIS Unknown if ever smoked [facility] Start: 03-16-2018 Cigarettes [facility] Start: 1955 Sex Assigned At Male [facility] Start: 07-26-2022 Tobacco Comment Down to 5 Cig. Per d ay. [facility] Start: 08-04-2022 End: 08-28-2022 Exposure to SARS-CoV-2 (event) Unable to assess [facility] Start: 12-25-2022 End: 05-29-2025 Tobacco use panel [facility] Start: 05-01-2021 Gender identity Identifies as male gender (finding) [facility] Start: 05-01-2021 Sexual orientation Heterosexual (iliana cody) [facility] Start: 09-08-1974 End: 02-03-2025 Tobacco smoking status NHIS Occasional tobacco smoker [facility] Start: 07-21-2023 End: 06-02-2025 Alcohol intake Ex-drinker (finding) [facility] Start: 07-21-2023 Tobacco Comment Not a heavy sm oker and have quit several times in last 10 years [facility] Start: 04-17-2021 End: 12-14-2024 Sex Male (finding) [facility] Within the past 12 months, did you worry that your food would run out before you got money to buy more? No [facility] Medical Equipment Procedure Code Equipment Code Equipment Origin al Text Equipment Identifier Dates Stem Femoral 107 mm 6 08/21 High Offset Taper Actis Duofix - [id number] Start: 07-02-2021 Head Humeral Shoulder Nucleus Simpliciti 3 Sterile - [id number] Start: 08-14-2022 Shell Acetabular 56mm Hip Sector Gription Dalzell Sterile - [id number] Start: 07-02-2021 Altrx Neut 40idx 56od - [id number] Start: 07-02-2021 Erika Ts Cer Hd 40mm +1.5 - [id number] Start: 07-02-2021 Cement Bone Simp roseann P Speedset Radiopaque Sterile - [id number] Start: 08-14-2022 Component Glenoi d 15d Medium Augment Cortiloc Shoulder Left - [id number] Start: 08-14-2022 Head Humeral 17m m 46mm Shoulder Simpliciti Sterile - [id number] Start: 08-14-2022 Coronary Stent 2 0mm 3mm Synergy Xd Monorail 144cm Everolimus - [id number] Start: 05-30-2025 Coronary Stent 2 8mm 2.5mm Synergy Xd Monorail 144cm - [id number] Start: 05-30-2025 Functional Status Date Assessment Result Facility 05-28-2025 Are you deaf, or do you have serious difficulty hearing No 05/28/2025 10:10 AM Ned Staley RN No [facility] 05-28-2025 Are you blind, or do you have serious difficulty seeing, even when wearing glasses No 05/28/2025 10:10 AM Ned Staley RN No [facility] 05-28-2025 Do you have serious difficulty walking or climbing stairs No 05/28/2025 10:10 AM Ned Staley RN No [facility] 05-28-2025 Do you have difficul ty dressing or bathing No 05/28/2025 10:10 AM Ned Staley, MICHELLE No [facility] 05-28-2025 Because of a physica l, mental, or emotional condition, do you have difficulty doing errands alone such as visiting a physician's office or shopping No 05/28/2025 10:10 AM Ned Staley, MICHELLE No [facility] 04-02-2025 Are you deaf, or do you have serious difficulty hearing No 04/02/2025 3:05 AM Palak Carbajal, IMCHELLE No [facility] 04-02-2025 Are you blind, or do you have serious difficulty seeing, even when wearing glasses No 04/02/2025 3:05 AM Palak Carbajal, MICHELLE No [facility] 04-02-2025 Do you have serious difficulty walking or climbing stairs No 04/02/2025 3:05 AM Palak Carbajal, MICHELLE No [facility] 04-02-2025 Do you have difficul ty dressing or bathing No 04/02/2025 3:05 AM Palak Carbajal, MICHELLE No [facility] 04-02-2025 Because of a physica l, mental, or emotional condition, do you have difficulty doing errands alone such as visiting a physician's office or shopping No 04/02/2025 3:05 AM Palak Carbajal, MICHELLE No [facility] 07-02-2021 Are you deaf, or do you have serious difficulty hearing No 07/02/2021 1:00 PM Bettina Ibarra, MICHELLE No [facility] 07-02-2021 Are you blind, or do you have serious difficulty seeing, even when wearing glasses No 07/02/2021 1:00 PM Bettina Ibarra, MICHELLE No [facility] 07-02-2021 Do you have serious difficulty walking or climbing stairs No 07/02/2021 1:00 PM Bettina Ibarra, MICHELLE No [facility] 07-02-2021 Do you have difficul ty dressing or bathing No 07/02/2021 1:00 PM Bettina Ibarra, RN No [facility] 07-02-2021 Because of a physica l, mental, or emotional condition, do you have difficulty doing errands alone such as visiting a physician's office or shopping No 07/02/2021 1:00 PM EDT Bettina Perez, MICHELLE No [facility] Mental Status Date Assessment Result Facility 05-28-2025 Because of a physica l, mental, or emotional condition, do you have serious difficulty concentrating, remembering, or making decisions No 05/28/2025 10:10 AM EDT Ned Barcenas, MICHELLE No [facility] 04-02-2025 Because of a physica l, mental, or emotional condition, do you have serious difficulty concentrating, remembering, or making decisions No 04/02/2025 3:05 AM EDT Palak Mcintosh, MICHELLE No [facility] 04-01-2025 Cognitive function Voice/Name [facility] Work Phone: 07-02-2021 Because of a physica l, mental, or emotional condition, do you have serious difficulty concentrating, remembering, or making decisions No 07/02/2021 1:00 PM EDT Bettina Perez, MICHELLE No [facility] Clinical Notes 12-11-2021 to 06-02-2025 Assessment & Plan Note - Luis Antonio Arias MD - 06/02/2025 4:45 PM EDTAssessment & Plan Note - Luis Antonio Arias MD - 06/02/2025 4:45 PM EDTPalbert Arias MD - 06/02/2025 2:00 PM EDT Note Date & Type Note Facility 06-02-2025 Evaluation + Plan note Associated Problem(s): Hyperlipidemia He states being on lipid-lowering therapy has been challenging in the past. However, he is continuing his current therapeutic intervention. [facility] 06-02-2025 Evaluation + Plan note Associated Problem(s): Angina pectoris He does have angina pectoris. His medicines will be adjusted as noted. Hopefully this will provide some improvement in his symptoms. [facility] 06-02-2025 Evaluation + Plan note Associated Problem(s): S/P CABG x 3 He has had CABG as noted. He has had issues with his ARORA to the LAD, his SVG to the OM, and his SVG to the RCA. He will continue medical management for concerns of his angina pectoris. His case will be discussed with the [facility] cardiac catheterization laboratory team as to whether not he is a candidate for any further percutaneous intervention of his moapa systems or the ARORA to the LAD. [facility] 06-02-2025 Miscellaneous Notes Associated Problem(s): Hyperlipidemia He states being on lipid-lowering therapy has been challenging in the past. However, he is continuing his current therapeutic intervention. Associated Problem(s): Angina pectoris He does have angina pectoris. His medicines will be adjusted as noted. Hopefully this will provide some improvement in his symptoms. Associated Problem(s): S/P CABG x 3 He has had CABG as noted. He has had issues with his ARORA to the LAD, his SVG to the OM, and his SVG to the RCA. He will continue medical management for concerns of his angina pectoris. His case will be discussed with the [facility] cardiac catheterization laboratory team as to whether not he is a candidate for any further percutaneous intervention of his moapa systems or the ARORA to the LAD. Associated Problem(s): H/O heart artery stent He has undergone previous PCI to the LAD in 2008 and subsequent now PCI to the SVG to the OM. He is continuing aspirin therapy and antiplatelet therapy with prasugrel. Associated Problem(s): 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 He has had longstanding history of underlying CAD. He was found to have multivessel disease on repeat evaluation in the Cardiac catheterization laboratory. He underwent CABG with a ARORA to the LAD, an SVG to the OM, and an SVG to the RCA on 03/10/2025. Since that time he has had to repeat cardiac catheterizations. He has been found to have concerns of the AORRA to the LAD being somewhat small and partially atretic as it nears the anastomosis to the LAD. He has now been found to have serial high-grade diseas in the SVG to the OM which required PTCA/stent as well as occlusion of the SVG to the RCA. At the present time he is going to continue medical therapy. He has been asked to increase his metoprolol XL 25 mg to be ID to assist with his rate and hopefully symptoms. He is going to be placed on ranolazine/Ranexa, as he appears to be in previously intolerant to nitrates, at 500 mg p.o. b.i.d.. A request will be made to the [facility] cardiac catheterization to review his cardiac catheterization films as to whether he is a candidate for any further percutaneous intervention of his moapa RCA system or to the ARORA to the LAD system. documented in this encounter [facility] 06-02-2025 Evaluation + Plan note Associated Problem(s): H/O heart artery stent He has undergone previous PCI to the LAD in 2008 and subsequent now PCI to the SVG to the OM. He is continuing aspirin therapy and antiplatelet therapy with [facility]ugrel. [facility] + Plan note Associated Problem(s): 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 He has had longstanding history of underlying CAD. He was found to have multivessel disease on repeat evaluation in the Cardiac catheterization laboratory. He underwent CABG with a ARORA to the LAD, an SVG to the OM, and an SVG to the RCA on 03/10/2025. Since that time he has had to repeat cardiac catheterizations. He has been found to have concerns of the ARORA to the LAD being somewhat small and partially atretic as it nears the anastomosis to the LAD. He has now been found to have serial high-grade diseas in the SVG to the OM which required PTCA/stent as well as occlusion of the SVG to the RCA. At the present time he is going to continue medical therapy. He has been asked to increase his metoprolol XL 25 mg to be ID to assist with his rate and hopefully symptoms. He is going to be placed on ranolazine/Ranexa, as he appears to be in previously intolerant to nitrates, at 500 mg p.o. b.i.d.. A request will be made to the [facility] cardiac catheterization to review his cardiac catheterization films as to whether he is a candidate for any further percutaneous intervention of his moapa RCA system or to the ARORA to the LAD system. [facility] 06-02-2025 History of Presen t illness Narrative Images from the original note were not included. Primary care provider: Pratibha Ronquillo DO (General) Dear Dr. Ronquillo, I had the pleasure of seeing your patient, Meir Landrum, at the [facility] on 06/02/2025 in follow-up. I have reviewed pertinent outside medical records available at this time regarding this patient. As you recall, this 70 y.o. male is managed by our group for concerns of a history of CAD, PCI, CABG, and hyperlipidemia.. Chief Complaint Patient presents with Follow-up Hospital follow up, Had a heart attack Friday morning and he had 2 stents in. Wants to know exactly what the next steps are HPI: Initial HPI from: 07/21/2023 This is a 68-year-old white male who presents for a new outpatient cardiovascular visit with a history of underlying CAD status post PCI-LAD at [facility] (2008), hyperlipidemia, for concerns of chest discomfort concerning for angina pectoris. He has previously been followed through the [facility] in [place], [place]. He has requested transferring his care to [facility] Cardiovascular Medicine. He states he has been doing well until a short time ago. He developed concerns of centralized chest pressure. He states it was somewhat random. It did not necessarily radiate out of his chest. He can have associated dyspnea on exertion. There was no obvious orthopnea, PND, or worsening peripheral pitting edema. He has had no near-syncope or syncope. He states following his chest pressure events he then developed an respiratory tract related issue. He tested negative for COVID-19. He was evaluated by his PCP. He was placed on antibiotic therapy. He states he feels somewhat better but still feels he has drainage from his upper respiratory tract. He is status post a previous hip surgery. He states he has been dealing with plantar fasciitis. He has been evaluated by other physicians and has changed shoes, insoles, and had various injections performed. He knows he has had his lipid labs performed in the past. He does not believe he is undergone any recent cardiovascular diagnostic studies. Some of his previous studies are noted below. They have included an ECG, and echocardiogram, and his cardiac catheterization/PCI procedure. Again, this was performed at [facility] and included PCI to the LAD distribution. He had an ECG in the office. He was noted to have normal sinus rhythm. He had no acute ECG changes. Interval History: 01/17/2025 History of Present Illness The patient, a 69-year-old male, presents for an outpatient cardiovascular follow-up visit. He has a medical history significant for coronary artery disease (CAD), status post percutaneous coronary intervention (PCI) of the left anterior descending (LAD) artery performed in 2008 at the [facility] ([facility]), and hyperlipidemia. He notes that he has been having symptoms of chest discomfort radiating to his neck and to his jaw area. He states this is similar to the symptoms he had prior to 2008 when he had his PCI performed at [facility]. He states the jaw discomfort has been what is been most concerning to him. He notes that he can feel somewhat short of breath with these events and with activity. He has not had orthopnea or PND or peripheral pitting edema. He states there has been times when he is felt somewhat lightheaded but he has had no loss of consciousness episode/syncope. He does have nitroglycerin tablets however he states he has not use them. He has been hoping that his symptoms were related to gastroesophageal reflux disorder. He did have an ECG in the office. He was noted to be in normal sinus rhythm. He had no acute ECG changes. He did have a left axis deviation. He states he just had laboratory work done through his PCP office. Based upon the information he has received this included a CMP, a lipid profile, and a PSA. He believes there may have been other labs performed as well. These labs have not yet been received for review. His other cardiovascular studies available for review are noted below. They have been discussed with him. Interval History: 02/10/25 History of Present Illness The patient is a 69-year-old male presenting for an outpatient cardiovascular follow-up. He has a history of coronary artery disease (CAD) status post percutaneous coronary intervention (PCI) and hyperlipidemia. Recently, he underwent a repeat diagnostic cardiac catheterization, which revealed progressive multivessel coronary artery disease. Consequently, coronary artery bypass grafting (CABG) has been recommended. At the present time he states that he has still been somewhat active at home. However he notes that with activity he does start to get tired and fatigued much easier. He has not noted any acute chest discomfort. There has been no orthopnea or PND or peripheral pitting edema. He has had no near-syncope or syncope. He states that since initiating statin therapy he has had significant joint discomfort. He states he feels like he has difficulty moving his joints. He has undergone evaluation with cardiac catheterization. He did have multivessel disease involving both the right coronary artery, the LAD system, and the LCX system. He was recommended for CABG. He has a pre CABG transthoracic echocardiogram scheduled for this afternoon. He has an appointment scheduled for Dr. Garcia on 02/22/2025 for his CABG evaluation. Interval History: 04/14/[address] Arias, patient underwent CABGx3 (ARORA-LAD, SVG-OM, SVG-PDA), LAAL with Dr. Bony Garcia on 03/10/25. His postoperative course was uncomplicated and he was discharged on 03/15/25. He was seen in the local ER for poor perfusion to lower extremities (bottoms of feet were purple), duplexes were WNL, but he was prescribed 10 days of Keflex for his mildly erythematous SVG sites which he completed. He was also admitted 04/02 to 04/05 due to concerns for chest pain after smoking his first cigarette after surgery. Troponin was elevated at local ER, so he was transferred to [facility]. EKG showed new T wave inversion in aVL & V2. He had a LHC on 04/02 revealing open grafts and ARORA-LAD tapering c/w completive flow. A TTE was also completed revealing EF 50-55% and WMA. MRI was unrevealing. He was hypotensive with Imdur. Since starting Plavix, he's been achy. Pain began in his back, moved around to sides/kidneys and into legs. He's also been really sleepy. He had similar aching when he took Plavix in the past. He's not had any issues with ASA 81mg or 325mg daily. He cannot recall taking any other antiplatelet therapy. He felt a little "strange" on the three days he took isosorbide prior to CABG. He was lightheaded in the hospital when he was taking isosorbide during the second admission. BP has been pretty good. He started cardiac rehab yesterday. He's feeling pretty good. No chest pain. He's a little SOB, but just feels like everything is a lot to do as he's just sore and fatigued. feels like he's sleeping ok, but seems to sleep a lot. He has an upcoming appointment with pulmonology. He doesn't feel depressed, but doesn't like the way he feels due to soreness and fatigue. He's taking atorvastatin 10mg daily along with Zetia. He was unable to tolerate 20mg due to myalgias. He has not smoked since his second admission. Interval History: 05/10/2025 Mr. Landrum is a 70-year-old male who presents today for an outpatient cardiovascular follow-up with a history of CAD, remote LAD PCI, status post CABG, and hyperlipidemia. He states he overall he is feeling better. His only chest discomfort is residual discomfort from his sternotomy. He states that he has used his upper extremities moving some dirt with a shovel and does note some residual musculoskeletal type discomfort. He states that his right lower extremity incision appears to be healing now. He has had no other symptoms of classic angina pectoris at the moment. He has had no issues of overt CHF or pulmonary edema. There has been no near-syncope or syncope. He states that since changing from clopidogrel to Effient/prasugrel he feels much better. He appears to be tolerating it well. He continues in cardiac rehab at his local hospital. Thus far there has been no obvious report of any concerns during his cardiac rehab sessions. He also notes that he has refrain from any cigarette smoking/tobacco use since his last event that led him to repeat hospitalization that led to repeat diagnostic cardiac catheterization that demonstrated his ARORA to LAD to be distally somewhat atretic. He continued medical therapy after that did not require any other form of intervention. Interval History: 06/02/2025 Mr. Landrum is a 70-year-old male with a past medical history of CAD status post remote (2008) LAD PCI, subsequent CABG (recent), and hyperlipidemia. Since his last visit he has had recurrent symptoms of angina pectoris. He was once again re-evaluated in a local emergency department. He was transferred back to [facility] for additional evaluation care and felt to have findings compatible with an acute non ST segment elevation VT type 1. He underwent re-evaluation with transthoracic echocardiogram and diagnostic cardiac catheterization. His transthoracic echocardiogram demonstrated left ventricular regional wall motion abnormalities-previously noted-with an LVEF reported at 48%. His diagnostic cardiac catheterization revealed underlying moapa vessel disease, a patent ARORA to the LAD, an SVG to the OM with multiple high-grade stenoses, and an occluded SVG to the RCA system. He subsequently underwent PTCA/stenting to the SVG to the OM system. He was released home recently on medical management. He states that his concern is recurrent chest discomforts for which he has used nitroglycerin sublingual. He is not complaining of orthopnea or PND or findings of CHF. There has been no near-syncope or syncope. He states he is concerned about cardiac rehab. He has been told his heart rate is somewhat higher than usual. He is also concerned about that he has had early graft failure. He knows that he did not have any additional revascularization to his moapa RCA system. In the office today he had an ECG performed. He was noted to be in normal sinus rhythm. He had a subtle nonspecific ST segment abnormality. He had no acute ECG changes. Historical information was reviewed in the medical record. The following historical elements were reviewed by a provider in the specific [facility] and updated as appropriate: Allergies[1] Encounter Medications[2] Past Medical History[3] Past Surgical History[4] Family History Problem Relation Age of Onset Uterine Cancer Mother Heart Disease - Other Mother Heart Disease - Other Father Heart Failure Father Heart Disease - Other Maternal Uncle Myocardial Infarction Maternal Uncle Heart Disease - Other Maternal Grandfather Myocardial Infarction Maternal Grandfather Heart Disease - Other Paternal Grandfather Myocardial Infarction Paternal Grandfather Social History Socioeconomic History Marital status: Single Spouse name: Not on file Number of children: Not on file Years of education: Not on file Highest education level: Not on file Occupational History Not on file Tobacco Use Smoking status: Some Days Current packs/day: 0.50 Average packs/day: 1 pack/day for 48.4 years (47.5 ttl pk-yrs) Types: Cigarettes Start date: 09/08/1974 Last attempt to quit: 04/30/2021 Smokeless tobacco: Never Tobacco comments: Not a heavy smoker and have quit several times in last 10 years Vaping Use Vaping status: Former Substance and Sexual Activity Alcohol use: Not Currently Comment: Less than once a week Drug use: Never Sexual activity: Yes Partners: Female control/protection: Female Sterilization Comment: My had a hysterictomy in 2018 Other Topics Concern Occupational Exposure No Hobby Hazards No Social History Narrative Not on file Social Drivers of Health Financial Resource Strain: Not on file Food Insecurity: No Food Insecurity (05/29/2025) NCSS - Food Insecurity Worried About Running Out of Food in the Last Year: No Ran Out of Food in the Last Year: No Transportation Needs: No Transportation Needs (05/29/2025) NCSS - Transportation Lack of Transportation: No Physical Activity: Not on file Stress: Not on file Social Connections: Not on file Personal Safety: Not At Risk (05/29/2025) NCSS - Interpersonal Safety Feels Physically and Emotionally Safe: Yes Physically Hurt by Someone: No Humiliated or Emotionally Abused by Someone: No Housing Stability: Not At Risk (05/29/2025) NCSS - Housing/Utilities Has Housing: Yes Worried About Losing Housing: No Unable to Get Utilities: No Review of Systems Cardiovascular: Positive for chest pain. Negative for claudication, cyanosis, dyspnea on exertion, irregular heartbeat, leg swelling, near-syncope, orthopnea, palpitations, paroxysmal nocturnal dyspnea and syncope. On physcial exam today, the vital signs are as follows: Vitals: 06/02/25 1343 BP: 122/66 Pulse: 96 SpO2: 98% Weight: 98.8 kg (217 lb 14.4 oz) Height: 1.778 m (5' 10") Body mass index is 31.27 kg/m . Physical Exam Vitals and nursing note reviewed. Constitutional: General: He is awake. Appearance: Normal appearance. He is well-developed, well-groomed and overweight. HENT: Head: Normocephalic and atraumatic. Cardiovascular: Rate and Rhythm: Normal rate and regular rhythm. No extrasystoles are present. Chest Wall: PMI is not displaced. No thrill. Pulses: Carotid pulses are 2+ on the right side and 2+ on the left side. Radial pulses are 2+ on the right side and 2+ on the left side. Posterior tibial pulses are 2+ on the right side and 2+ on the left side. Heart sounds: S1 normal and S2 normal. No murmur heard. No friction rub. No gallop. Pulmonary: Effort: Pulmonary effort is normal. Breath sounds: Normal breath sounds. Chest: Comments: Median Sternotomy: well healed Abdominal: General: Abdomen is flat. Bowel sounds are normal. Palpations: Abdomen is soft. Musculoskeletal: General: Normal range of motion. Cervical back: Normal range of motion. Right lower leg: No edema. Left lower leg: No edema. Skin: General: Skin is warm and dry. Neurological: General: No focal deficit present. Mental Status: He is alert. Psychiatric: Mood and Affect: Mood normal. Behavior: Behavior is cooperative. Relevant diagnostic data includes the following: Lab Results Component Value Date CHOLESTEROL 116 05/29/2025 TRIG 276 (H) 05/29/2025 HDL 34 (L) 05/29/2025 LDLCALC 27 05/29/2025 NHCHOL 82 05/29/2025 Lab Results Component Value Date WBC 11.86 (H) 05/30/2025 HGB 13.6 05/30/2025 HCT 40.8 05/30/2025 PLATELET 216 05/30/2025 MCV 88.7 05/30/2025 Lab Results Component Value Date SODIUM 139 05/30/2025 POTASSIUM 4.0 05/30/2025 CHLORIDE 106 05/30/2025 CO2 25 05/30/2025 BUN 15 05/30/2025 CREATSERUM 1.02 05/30/2025 GLUCOSE 96 05/30/2025 Lab Results Component Value Date TSH 1.584 03/08/2025 Lab Results Component Value Date HGBA1C 5.2 05/29/2025 I have independently reviewed the following images/tracings: as noted below. Supplemental Information: [facility]ARD[facility]2022 [facility] 04[facility]25 [facility] ECHOCARDIOGRAM 05[facility]24/2009 [facility] CONCLUSIONS S/p NSTEMI and Stent to LAD. Technically Difficult and Limited Study. 1. Grossly normal LV and RV systolic function. 2. Valves and aorta not well seen. 3. Trivial pericardial effusion. ECHOCARDIOGRAM 09/03/2023 (Final) Interpretation Summary Technically difficult study, endocardium not well seen Normal left ventricular size and low normal systolic function. LVEF of 50-55%. Proximal anteroseptum appears hypekinetic. Normal diastolic function Normal right ventricular size and systolic function No significant valvular abnormalities RVSP of 23 mmHg ECHOCARDIOGRAM LIMITED/FOLLOWUP 04/02/2025 (Final) Interpretation Summary NSTEMI, limited oracle bpm consultant echo by fellow, CHITO reviewed 04/04/25. Mild segmental LV dysfunction, basal septal akinesis, lateral hypokinesis, EF ~45%. Grossly normal RV. Valves not assessed in data. ECHOCARDIOGRAM LIMITED/FOLLOWUP 05/30/2025 (Final) Interpretation Summary Limited echo for ventricular function Left ventricular chamber size is mildly enlarged at end-systole. Persistent inferior/inferolateral wall motion abnormalities, as previously described, consistent with remote infarction. No definitive new wall motion abnormalities. Global function mildly reduced, ejection fraction +/-48%. Right ventricle visually appears normal in size with normal function MYOCARDIAL PERFUSION STUDY 09/03/2023 [facility] Lexiscan Stress myocardial perfusion scan within normal limits. No evidence of ischemia. No evidence of prior myocardial injury. Normal left ventricular systolic function ( 58% ). CARDIAC MRI 04/04/2025 [facility] Mild systolic dysfunction with regional wall motion abnormalities and predominantly ischemic fibrosis. CRITICAL RESULT: No SUMMARY 69 yo M with HTN, HLD, multivessel CAD s/p PCI LAD & CABG (ARORA-LAD, SVG-RCA, SVG-OM), HFmrEF/ICM, admitted with NSTEMI; CMR for further assessment; CARDIAC MRI LEFT VENTRICLE: Normal left ventricular size with normal wall thickness. Mild systolic dysfunction with thinning and focal akinesis of the mid anteroseptal wall - partially extending into the mid inferoseptal wall - as well as focal akinesis of the mid inferior wall. Quantitative LVEF 48 %. LGE: Late gadolinium enhancement imaging demonstrates subendocardial infarct scar in the basal anteroseptal wall involving approximately 25% of wall thickness, near transmural infarct scar in the mid septal wall as well as focal near transmural infarct scar in the mid inferior wall. There is also mild patchy midmyocardial nonischemic fibrosis in the basal septal/inferior/inferolateral adams as well as superior/inferior RV insertion point fibrosis. MYOCARDIUM: Normal [place] T1 values with no evidence of diffuse interstitial expansion (ECV 25%, normal <31%). No evidence of myocardial edema/inflammation on T2 mapping. RIGHT VENTRICLE: Normal right ventricular size with normal systolic function. Quantitative RVEF 56 %. LA/RA SEPTUM: Fatty infiltration. LEFT ATRIUM: LA cavity size is normal. RIGHT ATRIUM: RA cavity size is upper limits of normal. PERICARDIUM: Epicardial fat pad with trivial circumferential pericardial effusion. AORTIC VALVE: Peak aortic velocity 1.2 m/s. Trivial aortic regurgitation. Assessment by phase contrast imaging: regurgitant volume 6 ml, regurgitant fraction 8%. MITRAL VALVE: Trivial mitral regurgitation. TRICUSPID VALVE: Trivial tricuspid regurgitation. PULMONIC VALVE: Peak aortic velocity 0.8 m/s. Trivial regurgitation. Assessment by phase contrast imaging: regurgitant volume 4 ml, regurgitant fraction 4%. STUDY QUALITY: Study quality is good. OTHER FINDINGS: Evidence of prior median sternotomy. Mild parenchymal pulmonary changes not further characterized on this cardiac oriented exam. CARDIAC CATHETERIZATION / PCI 05/23/2009 [facility] Left Main Angiographically free of disease. LAD A 80% stenosis was seen in a large Proximal LAD. It was characterized as a class C (Complex) lesion. Circumflex Stenosis of greater than or equal to 50% noted for this vessel. RCA Stenosis of greater than or equal to 50% noted for this vessel. Bypass Grafts None Other Pertinent Medical Problems: None Current Medications: ASA (mg), Heparin (units), Nitroglycerin (mcg), Plavix (mg), Statin PROCEDURE Site: Proximal LAD Artery Size: 3.56 ACC/AHA: C *lesion length > 20mm Primary Treatment: Intended - Balloon Angioplasty 12-austin Result: 80% to 60% stenosis, MURIEL 3 Complications: None Final Result: Successful Final Complications: None Site: Proximal LAD Artery Size: 3.56 ACC/AHA: C *lesion length > 20mm Primary Treatment: Intended - Drug Eluting Stent 18-austin Result: 60% to 10% stenosis, MURIEL 3 Complications: None Final Result: Successful Final Complications: None Site: Proximal LAD Artery Size: 3.56 ACC/AHA: C *lesion length > 20mm Primary Treatment: Intended - Drug Eluting Stent 16-austin Result: 60% to 10% stenosis, MURIEL 3 Complications: None Final Result: Successful Final Complications: None Site: Proximal LAD Artery Size: 3.56 ACC/AHA: C *lesion length > 20mm Primary Treatment: Intended - Balloon Angioplasty 20-austin Result: 10% to 0% stenosis, MURIEL 3 Complications: None Final Result: Successful Final Complications: None 02/03/2025 [facility] Diagnostics: - right dominant system -RCA : mRCA up to 80% stenosis -LAD: at previously placed proximal LAD stent there is up to 80%-90% ISR -LCx: proximal LCx just after OM1 there is up to 80% focal stenosis. 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 Recommendations: CTS Referral placed for expedited eval for CABG 04/02/2025 [facility] Impression Obstructive mo[place] coronary artery disease Patent coronary bypass grafts Recommendations: Continue aggressive risk factor modification and medical management for CAD. Consider medical management of NSTEMI, 48 hours of heparin (can start 4 hours after hemostasis of femoral access site) and DAPT for at least 6-12 months Access: R femoral access, sheath left in for removal when ACT is below 160 L radial artery, TR band used for hemostasis Coronary angiography: The left main is angiographically normal. The left anterior descending (LAD) is a large vessel with 90% ISR of previously placed proximal LAD stent The left circumflex (LCx) has proximal 80% stenosis distal to the first obtuse marginal branch The right coronary artery is dominant with mid 80% stenosis Coronary bypass angiography ARORA-LAD graft is widely patent. There is some tapering near the distal anastomosis that is favored to represent competitive flow rather than obstructive stenosis. Required use of L radial artery access in order to engage SVG-RCA is widely patent SVG-OM is widely patent 05/30/2025 [facility] Conclusions - 2/3 patent bypass grafts. ARORA-LAD is patent. SVG-OM is patent. SVG-RPDA occluded. - 95% stenosis tandem lesions in the proximal SVG-OM graft successfully treated with a 2.5 x 28 mm Synergy XD drug-eluting stent. 80% stenosis at the ostium of the SVG-OM graft successfully treated with 3.0 x 20 mm Synergy XD drug-eluting stent. - [place] three vessel disease as outlined below. - Elevated LVEDP Access - left radial artery with TR band hemostasis Hemodynamics - LVEDP 22 mmHg - No gradient on LV to AO pullback Coronary angiography - RCA: dominant, moderate in size. There is 90% stenosis in the proximal vessel. Mild diffuse disease in the remainder of the vessel. - LM: large in caliber, angiographically normal - LCx: nondominant, moderate in size. 90% stenosis in the proximal segment. The vessel gives off a large OM branch with 90% stenosis in the proximal OM. - LAD: moderate in size with mild diffuse disease. There is a 95% proximal LAD lesion. Competitive flow is seen in the mid-distal segment that is also supplied by the ARORA-graft. Bypass angiography - ARORA-LAD is patent - SVG-OM is patent with 90% stenosis in the proximal segment and 80% stenosis at the ostium. - SVG-RPDA is occluded. PCI: mid SVG-OM (2.5 x 28 mm Synergy XD drug eluting stent. Ostial SVG-OM (3.0 x 20 mm Synergy XD drug eluting stent. Recommendations - DAPT (aspirin + P2Y12i) for at least 6 months, preferably one year. - SAPT indefinitely - Cardiac rehab - GDMT for CAD per primary ship's cook and inpatient team CT SURGERY 03/10/2025 [facility] PROCEDURES PERFORMED: 1. Coronary artery bypass graft x3 with left internal mammary artery to left anterior descending artery, reverse saphenous vein graft to obtuse marginal branch and a separate reverse saphenous vein graft to the posterior descending artery. In summary, Mr. 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 He was found to have multivessel disease on repeat evaluation in the Cardiac catheterization laboratory. He underwent CABG with a ARORA to the LAD, an SVG to the OM, and an SVG to the RCA on 03/10/2025. Since that time he has had to repeat cardiac catheterizations. He has been found to have concerns of the ARORA to the LAD being somewhat small and partially atretic as it nears the anastomosis to the LAD. He has now been found to have serial high-grade diseas in the SVG to the OM which required PTCA/stent as well as occlusion of the SVG to the RCA. At the present time he is going to continue medical therapy. He has been asked to increase his metoprolol XL 25 mg to be ID to assist with his rate and hopefully symptoms. He is going to be placed on ranolazine/Ranexa, as he appears to be in previously intolerant to nitrates, at 500 mg p.o. b.i.d.. A request will be made to the [facility] cardiac catheterization to review his cardiac catheterization films as to whether he is a candidate for any further percutaneous intervention of his [place] RCA system or to the ARORA to the LAD system. H/O heart artery stent He has undergone previous PCI to the LAD in 2008 and subsequent now PCI to the SVG to the OM. He is continuing aspirin therapy and antiplatelet therapy with prasugrel. S/P CABG x 3 He has had CABG as noted. He has had issues with his ARORA to the LAD, his SVG to the OM, and his SVG to the RCA. He will continue medical management for concerns of his angina pectoris. His case will be discussed with the [facility] cardiac catheterization laboratory team as to whether not he is a candidate for any further percutaneous intervention of his mo[place] systems or the ARORA to the LAD. Angina pectoris He does have angina pectoris. His medicines will be adjusted as noted. Hopefully this will provide some improvement in his symptoms. Hyperlipidemia He states being on lipid-lowering therapy has been challenging in the past. However, he is continuing his current therapeutic intervention. I have ordered the following: Diagnoses and all orders for this visit: 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 - [place] ECG ROUTINE ECG W/LEAST 12 LDS W/I&R - Ranolazine 500 MG Tab SR 12 HR tablet; Take 1 tablet by mouth 2 times daily. - Metoprolol succinate (Toprol XL) 25 MG tablet XL; Take 1 tablet by mouth 2 times daily. H/O heart artery stent - IL ECG ROUTINE ECG W/LEAST 12 LDS W/I&R - Ranolazine 500 MG Tab SR 12 HR tablet; Take 1 tablet by mouth 2 times daily. - Metoprolol succinate (Toprol XL) 25 MG tablet XL; Take 1 tablet by mouth 2 times daily. S/P CABG x 3 - IL ECG ROUTINE ECG W/LEAST 12 LDS W/I&R - Ranolazine 500 MG Tab SR 12 HR tablet; Take 1 tablet by mouth 2 times daily. - Metoprolol succinate (Toprol XL) 25 MG tablet XL; Take 1 tablet by mouth 2 times daily. Angina pectoris - IL ECG ROUTINE ECG W/LEAST 12 LDS W/I&R - Ranolazine 500 MG Tab SR 12 HR tablet; Take 1 tablet by mouth 2 times daily. - Metoprolol succinate (Toprol XL) 25 MG tablet XL; Take 1 tablet by mouth 2 times daily. Hyperlipidemia, unspecified hyperlipidemia type The above was discussed and reviewed with him. He was agreeable to this approach. We will plan on No follow-ups on file.. If I can be of any further assistance, please do not hesitate to contact me. Sincerely, Luis Antonio Arias MD, [facility] [employer] - Clinical Division of Cardiovascular Medicine Department of Internal Medicine [facility] If Code G2211 is submitted, it indicates that this visit constitutes management of one or more complex chronic conditions listed, a process that involves longitudinal medical decision making, review/interpretation of lab work, cardiac rhythm/function testing, medical titration, and/or care coordination as described. Please be aware that portions of this note may have been completed with a voice recognition software system and an artificial intelligence system with the knowledge and approval of the patient. Despite efforts to edit the note mis-transcribed words may still be present. [1] Allergies Allergen Reactions Penicillins Itching Itching Rosuvastatin Numbness Other reaction(s): Other Simvastatin Other reaction(s): Myalgias, Other Ciprofloxacin Numbness Bactrim [Sulfamethoxazole-Trimethoprim] Hives and Swelling Meloxicam Hives It is tolerable if he uses benadryl. Plavix [Clopidogrel] Drowsy/Sedated Feels very sore Varenicline Other reaction(s): Mental Status Change Depression [2] Outpatient Encounter Medications as of 06/02/2025 Medication Sig Dispense Refill Metoprolol succinate (Toprol XL) 25 MG tablet XL Take 1 tablet by mouth 2 times daily. 180 tablet 3 Acetaminophen 325 MG tablet Take 2 tablets by mouth every 6 hours as needed for Moderate Pain or Mild Pain. (Patient taking differently: Take 500 mg by mouth every 6 hours as needed for Moderate Pain or Mild Pain.) aspirin 81 MG Chew Tab chewable tablet Chew 1 tablet daily. 90 tablet 3 Atorvastatin 10 MG tablet Take 1 tablet by mouth daily. Ezetimibe 10 MG tablet Take 1 tablet by mouth daily. 90 tablet 3 Multiple Vitamins-Minerals (Multivitamin Gummies Adult) Chew Tab Chew 1 tablet daily. nitroGLYCERIN 0.[address] 1 tablet under tongue every 5 minutes as needed for Chest pain. max = 3 doses. If CP persists after 1st dose, call 911 25 tablet 2 pantoprazole [address] tablet DR Take 1 tablet by mouth daily. Prasugrel HCl (Effient) 10 MG tablet Take 1 tablet by mouth daily. 90 tablet 3 Ranolazine 500 MG Tab SR 12 HR tablet Take 1 tablet by mouth 2 times daily. 60 tablet 6 [DISCONTINUED] Metoprolol succinate (Toprol XL) 25 MG tablet XL Take 1 tablet by mouth daily. 90 tablet 3 No facility-administered encounter medications on file as of 06/02/2025. [3] Past Medical History: Diagnosis Date Arthritis CAD (coronary artery disease) Cardiac angina Congestive heart failure Diverticulitis GERD (gastroesophageal reflux disease) Hyperlipidemia VT (myocardial infarction) [4] Past Surgical History: Procedure Laterality Date CORONARY STENT PLACEMENT N/A 05/30/2025 Laterality: N/A; Surgeon: Anirudh Rutledge MD; Location[facility] CATH CABG W/ ARTERY GRAFT OPEN Midline 03/10/2025 Laterality: Midline; Surgeon: Bony Garcia MD, PhD; Location: [facility] MA[facility] OR ARTHROPLASTY SHOULDER TOTAL Left 08/14/2022 Laterality: Left; Surgeon: Robin Mcguire MD; Location: [facility] MA[facility] OR TENODESIS BICEPS LONG TENDON Left 08/14/2022 Laterality: Left; Surgeon: Robin Mcguire MD; Location: [facility] MA[facility] OR ARTHROPLASTY HIP TOTAL ANTERIOR APPROACH Right 07/02/2021 Laterality: Right; Surgeon: Amarjit Marroquin MD; Location: [facility] MA[facility] OR ASPIRATION OR INJECTION LARGE JOINT BURSA Left 07/02/2021 Laterality: Left; Surgeon: Amarjit Marroquin MD; Location: [facility] MA[facility] OR CORONARY STENT PLACEMENT 2009 MENISCECTOMY Left SHOULDER ARTHROSCOPY Right Patient has verified full name and . 12 Lead EKG performed per provider's order, per policy, and given to dr. Arias for interpretation. Medical automatic tire tester offered to patient prior to sensitive procedure and patient declined documented in this encounter [facility] 06-02-2025 Instructions Luis Antonio Arias MD - 06/02/2025 2:00 PM EDT Medication Changes: Metoprolol XL: 25 mg twice a day Ranexa / Ranolazine: 500 mg twice a day documented in this encounter [facility] 05-30-2025 Miscellaneous Notes After Visit Summary instructions provided and reviewed with the patient at the bedside. Patient verbalized understanding and denied any questions or concerns. Peripheral IV & telemetry discontinued per physician order. Patient denies having any medications secured in the medication room upon admission. Patient will be discharged home with belongings and a copy of discharge instructions accompanied by hospital staff. I was notified about the 14:12 troponin result of 5175 by the RN. This lab was drawn after the patient underwent PCI. This result was discussed with the team. It is expected that the patient will have a troponin elevation after his procedure. He is asymptomatic at this time. We have gone over return precautions extensively and the patient is still clear for discharge at this time. 2 Jeffrey Daily Rounding Plan of Care The plan of care was discussed with the attending service regarding Meir Landrum. The 2 Jeffrey Multidisciplinary Checklist was reviewed - yes Daily Plan of Care: -LHC--> 2 LILIANA stents placed -trend troponin -echo Avoiding Complications: Active Cardiac Monitoring Order: yes Active Restraints Order: no Restraint type: na Central Line or Arterial Line Present: no CVC indication: na Arterial line indication: na More Catheter Present: no Catheter Indication: na DVT and VTE Prophylaxis? yes Antibiotic Timeout Reviewed: no Nutrition Plan: DIET HEART HEALTHY - 4 GM SODIUM BM in the last 24hrs: yes [place] Score: 20 Skin breakdown: no Wound Consult: no Activity plan: independent but with effort PT/OT: no Cardiac Rehab consult: yes Social Work: no Case Management needs: no Palliative needs present: no; consult placed no LDAs The type, length of duration and necessity of all lines and drains listed below was reviewed, in order to prevent any possible sources of infection and encourage timely removal. Patient Lines/Drains/Airways Status Active Lines, Drains, Airways, & Wound Overview Name Placement date Placement time Site Days Peripheral IV Line - Single Lumen 05/28/25 1026 median cubital vein (antecubital fossa), right 20 gauge 05/28/25 1026 -- 2 Peripheral IV Line - Single Lumen 05/29/25 1123 pink forearm, posterior, left 20 gauge;1 1/4 in length 05/29/25 1123 -- 1 Wound Surgical 03/10/25 1534 Lower;Right Leg 03/10/25 1534 Leg 81 Wound Surgical Sheath Site 05/30/25 1015 Left Radial 05/30/25 1015 Radial less than 1 Transient chest pain during the day and overnight. Somewhat relieved with nitro. Trending troponins: 38->696->926. No EKG changes. Problem: Adult Inpatient Plan of Care Goal: Plan of Care Review Outcome: Progressing Goal: Patient-Specific Goal (Individualized) Outcome: Progressing Goal: Absence of Hospital-Acquired Illness or Injury Outcome: Progressing Goal: Optimal Comfort and Wellbeing Outcome: Progressing Goal: Readiness for Transition of Care Outcome: Progressing 2 Jeffrey Daily Rounding Plan of Care The plan of care was discussed with the attending service regarding Meir Landrum. The 2 Jeffrey Multidisciplinary Checklist was reviewed - yes Daily Plan of Care: Pt with intermittent chest pain. Started heparin gtt today. SL Ntg x2. Troponin levels at this time were 40>38 respectively. ECG neg. Pt reports pain relief after starting heparin infusion and GI cocktail. Plan for [facility] 05/30. Avoiding Complications: Active Cardiac Monitoring Order: yes Active Restraints Order: no Restraint type: Central Line or Arterial Line Present: no CVC indication: no Arterial line indication: no More Catheter Present: no Catheter Indication: no DVT and VTE Prophylaxis? No Antibiotic Timeout Reviewed: no Nutrition Plan: DIET HEART HEALTHY - 4 GM SODIUM DIET NPO with meds BM in the last 24hrs: yes Dakota Dakota Score: 23 Skin breakdown: yes Wound Consult: no Activity plan: normal PT/OT: no Cardiac Rehab consult: yes Social Work: yes Case Management needs: yes Palliative needs present: no; consult placed no LDAs The type, length of duration and necessity of all lines and drains listed below was reviewed, in order to prevent any possible sources of infection and encourage timely removal. Patient Lines/Drains/Airways Status Active Lines, Drains, Airways, & Wound Overview Name Placement date Placement time Site Days Peripheral IV Line - Single Lumen 05/28/25 1026 median cubital vein (antecubital fossa), right 20 gauge 05/28/25 1026 -- 1 Peripheral IV Line - Single Lumen 05/29/25 1123 pink forearm, posterior, left 20 gauge;1 1/4 in length 05/29/25 1123 -- less than 1 Wound Surgical 03/10/25 1534 Lower;Right Leg 03/10/25 1534 Leg 80 Problem: Adult Inpatient Plan of Care Goal: Plan of Care Review Outcome: Progressing Goal: Patient-Specific Goal (Individualized) Outcome: Progressing Goal: Absence of Hospital-Acquired Illness or Injury Outcome: Progressing Goal: Optimal Comfort and Wellbeing Outcome: Progressing Problem: Cardiac Catheterization (Diagnostic/Interventional) Goal: Stable Heart Rate and Rhythm Outcome: Progressing Patient admitted to [facility] for CP. Patient alert & oriented x4. No complaints of pain/SOB at this time. VSS, NSR on telemetry. Orders reviewed. Labs and ECG obtained. Dr. Salinas resident notified of patient arrival. Plan for [facility]. Admissions questions asked and completed to the best ability of the patient at this time. On admission to , from outside facility a dual RN initial assessment of skin condition was performed by Ned Barcenas RN and Nicole Espinoza RN. Skin Assessment: Skin within defined limits: Yes - s/p cabg-healing appropriately Dakota Score: 23 LDA Added:No Ned Barcenas RN Problem: Adult Inpatient Plan of Care Goal: Plan of Care Review Outcome: Progressing Goal: Patient-Specific Goal (Individualized) Outcome: Progressing Goal: Absence of Hospital-Acquired Illness or Injury Outcome: Progressing Goal: Optimal Comfort and Wellbeing Outcome: Progressing documented in this encounter [facility] 05-30-2025 Nurse Note After Visit Summary instructions provided and reviewed with the patient at the bedside. Patient verbalized understanding and denied any questions or concerns. Peripheral IV & telemetry discontinued per physician order. Patient denies having any medications secured in the medication room upon admission. Patient will be discharged home with belongings and a copy of discharge instructions accompanied by hospital staff. [facility] 05-30-2025 Plan of care note I was notified about the 14:12 troponin result of 5175 by the RN. This lab was drawn after the patient underwent PCI. This result was discussed with the team. It is expected that the patient will have a troponin elevation after his procedure. He is asymptomatic at this time. We have gone over return precautions extensively and the patient is still clear for discharge at this time. [facility] 05-30-2025 Note Acute Coronary Syndr ome (ACS): Initial Evaluation and Management: [email or web address] [facility] 05-30-2025 Hospital Discharg e instructions Cristian Whitlock DO - 05/30/2025 4:04 PM EDT You were seen for evaluation of your chest pain. You were found to have an occluded graft upon coronary catheterization. You received two new drug eluding stents. Please continue all of your previous medications, which can reviewed in the medication section of your discharge paperwork. You should return to cardiac rehab as soon as possible. Please seek re-evaluation at the nearest emergency department if you develop new/worsening chest pain, dizziness, weakness, or sweating. Please follow up with our outpatient cardiac team and PCP as scheduled. The following attachments cannot be sent through Care Everywhere.Stent: How to Protect ([facility]) (Georgian)Cardiac Catheterization: Left (Georgian)Cardiac Cath Care After Wrist Site ([facility]) (Georgian)documented in this encounter [facility] 05-30-2025 History of Presen t illness Narrative Department of Pharmacy Medication Reconciliation Note Patient: Meir Landrum Room/Bed: I have reviewed the patient's discharge medication list. The patient's medication list is correct and accurate to the best of my knowledge. We sent refills for both the aspirin and prasugrel to ensure there are enough refills at the patient's retail pharmacy for one year from when the stent is placed. Please feel free to contact me or the pharmacy with any further questions. Name: Shabana Lama [facility] Phone #: [phone] Date/Time: 05/30/2025 2:17 PM Time Spent: 20 minutes Department of Pharmacy Admission Medication Reconciliation Note Patient: Meir Landrum Room/Bed: I have reviewed the patient's home medication list with the following sources Patient recall without prompting. I have also reviewed this list with the pharmacist. A call to the pharmacy was not needed because the information compiled from listed sources corroborates the patient/caregiver interview. I am recommending the following changes to the home medication list. These recommendations are considered preliminary until attestation of this note by a pharmacist. Added to Home Medications: N/A Deleted from Home Medications: N/A Edits to Home Medications: N/A Other Comments: The patient's allergies have been reviewed with Patient. Patient is taking all the home medications that are listed. No additional medications taken. Please feel free to contact me with any further questions. Name: Francheska Yuen Student Preceptor: Barry Cifuentes RPH Date/Time: 05/30/2025 12:10 PM Time Spent: 60 minutes Cosigned by Barry Cifuentes RPH at 05/30/2025 1:21 PM EDT Associated attestation - Barry Cifuentes RPH - 05/30/2025 1:21 PM EDT Department of Pharmacy Admission Medication Reconciliation Note Patient: Meir Landrum Room/Bed: 2036/A Updated SPEECH AND LANGUAGE SPECIALIST Med List: Prior to Admission Medications Prescriptions Acetaminophen 325 MG tablet Sig: Take 2 tablets by mouth every 6 hours as needed for Moderate Pain or Mild Pain. Atorvastatin 10 MG tablet Sig: Take 1 tablet by mouth daily. Ezetimibe 10 MG tablet Sig: Take 1 tablet by mouth daily. Metoprolol succinate (Toprol XL) 25 MG tablet XL Sig: Take 1 tablet by mouth daily. Multiple Vitamins-Minerals (Multivitamin Gummies Adult) Chew Tab Sig: Chew 1 tablet daily. Prasugrel HCl (Effient) 10 MG tablet Sig: Take 1 tablet by mouth daily. aspirin 81 MG Chew Tab chewable tablet Sig: Chew 1 tablet daily. nitroGLYCERIN 0.4 MG tablet SL Sig: Place 1 tablet under tongue every 5 minutes as needed for Chest pain. max = 3 doses. If CP persists after 1st dose, call 911 pantopraz[address] tablet Sig: Take 1 tablet by mouth daily. Facility-Administered Medications: None I have reviewed the home medication list with the Student. The home medication list status is: complete and home med list marked as reviewed . All changes to the home medication list have been updated in [facility]. Please feel free to contact me with any further questions. Name: Barry Cifuentes [facility] Phone #: [phone] Date/Time: 05/30/2025 1:19 PM Discharge Planning Assessment Is the patient able to participate in the assessment?: Yes Care Management Plan Pt lives with spouse in a one story house and was independent prior to admission. Anticipate pt will return home at discharge with outpatient follow up. Initial Discharge Planning Expected Discharge Disposition: Home Transportation Available for Discharge: Family or Friend Anticipated DME: none Anticipated Services at Discharge: Outpatient follow up Patient Assessment Completed: Initial Legal Next of Kin Does the patient have a Guardian?: No Spouse: Yes Name and Contact information: Jayshree Adams [phone] Adult Sibling(s), List All Adult Siblings: Yes Name and Contact information: Sonali Landrum [phone] Reviewed and Updated in Demographics? : Yes Advanced Care Planning Has the patient completed Advance Directives?: Not Completed Referral to Social Work for Advance Care Planning? : Patient Declines Medication Management Does the patient have prescription insurance coverage? : Yes Is the patient on Anticoagulation? : Yes Provider or Clinic that manages Anticoagulation?: [facility] 81/Plavix [id number] [place] [address] - [phone] [facility] [id number] Living Environment and Support System Is the patient from a facility or chcf?: No Living Environment: House Patient Caregiving Responsibilities: Self Patient-identified caregiver/support network: Family, Friends Who does the patient identify as a teachable caregiver(s)?: Spouse or Partner Services Does the patient use a home health or hospice agency?: No Current with dialysis?: No Does the patient use any community programs or services?: No Does patient use DME? : rollator, shower seat, blood pressure monitor Would you like to add additional DME providers?: No Does the patient use oxygen?: No Does patient use medical supplies? : none Anticipated Changes Related to Illness/Injury? : No Inability to care for self?: No Initial ADLs Prior to Arrival What is the patient's reported baseline physical functioning prior to this acute illness?: independent What is the patient's reported baseline cognitive functioning prior to this acute illness?: independent Is the patient's baseline functioning changed by this acute illness? : No Concerns with patient being able to care for themselves at home? : No MINNIE Hu LISW-S Obstetrics Gynecology Md for ACS/HRT3 DAILY PROGRESS NOTE IDENTIFYING INFORMATION PATIENT: Meir Landrum ADMIT DATE: 05/28/2025 TIME OF EVALUATION: 05/29/2025 8:28 AM HOSPITAL STAY: LOS: 1 day SUBJECTIVE/INTERVAL HISTORY Meir Landrum's events from the last 12-24 hours were reviewed. Patient reports that yesterday around 8:30pm he developed a short-lasting episode of chest pain after walking the halls. This morning, denies chest pain, chest pressure, or shortness of breath. Patient aware of plan for heart cath tomorrow. ASSESSMENT AND PLAN Meir Landrum is a 70 y.o. male with a history of CAD s/p PCI to LAD in 2008 and CABG (ARORA-LAD, SVG-OM, SVG-PDA) with LI ligation in 03/10/2025, HTN, HLD, hx of prior tobacco use who presents on 05/28 with chest pain. Major updates today: - Started heparin gtt - Plan for [facility] tomorrow, NPO at midnight NSTEMI Type 2 CAD s/p CABGx3 03/10/25, PCI to LAD in 2008 Per patient, history of stents to LAD in 2008 which was very traumatic due to uncontrolled femoral site bleeding post-PCI. Recent CABGx3 (ARORA-LAD, SVG-OM, SVG-PDA) with LI ligation on 03/10/2025. Has been in cardiac rehab. Had an episode of chest pain 3 weeks post-CABG and was admitted for NSTEMI. Last cath 04/02/25 with patent bypass grafts and obstructive moapa coronary artery disease with suggestion of aggressive risk factor modification for which he was initiated on DAPT. This admission, presented with chest pain for the first time since March in the setting of exertion. Troponin elevated to 22 in OSH ED (reference >12). - CXR with no acute findings - ECG with NSR - Troponin peak 114 - Heparin gtt given patient is high-risk and complaining of intermittent chest pain - Antiplatelet: home bASA, prasugrel - Lipid management: home atorvastatin 10mg, zetia 10mg - Antianginals: home Toprol 25mg, SL nitroglycerin prn - Limited TTE ordered - Lipid panel (LDL 27) and A1C (5.2) ordered - Plan for [facility] 05/30 Hypertension - Continue home Toprol 25mg Hyperlipidemia Hypertriglyceridemia Per patient, unable to tolerate high-intensity statin dosage. Triglycerides managed by diet modification at this time. - Lipid panel TC 116/ HDL 34/ LDL 27/ TG 276 - Continue home atorvastatin 10mg & zetia Leukocytosis, resolved WBC on admission 10.26. Low concern for infection at this time given patient is afebrile and asymptomatic. CXR negative. - CTM Chronic Medical Problems: GERD: home PPI daily Hx of TMJ: tylenol prn, ice application prn Quality Self-Check Complexity. Obesity, class I Body mass index is 31.16 kg/m . - Follow with PCP for dietary and lifestyle modifications. Wound Documentation Wound Surgical 03/10/25 1534 Lower;Right Leg (Active) Date First Assessed/Time First Assessed: 03/10/251533 Primary Wound Type: Surgical Present on Original Admission: No Device Related: no Incision Type: laparoscopic punctures Incision Closure/Dressing: Dermabond;Island Dressing;Pedrito Wrap Wound L... Any conditions listed below are present on admission unless otherwise specified. . -- FEN: DIET HEART HEALTHY - 4 GM SODIUM DIET NPO with meds / Replace as needed (K>4, Mg>2) DVT Prophylaxis: heparin gtt Code Status: Full Code Disposition: Pending [facility] -- This plan was discussed with the team on rounds. Shira Oliveros MD, MPH Internal Medicine, PGY-1 MEDICATIONS SCHEDULED: aspirin chewable tablet 81 mg, 81 mg, Daily Atorvastatin (LIPITOR) tablet 10 mg, 10 mg, Daily Enoxaparin Sodium (LOVENOX) injection 40 mg, 40 mg, Daily Ezetimibe (ZETIA) 10 mg, 10 mg, Daily Metoprolol succinate (TOPROL-XL) tablet XL 25 mg, 25 mg, Daily Pantoprazole (PROTONIX) tablet DR 40 mg, 40 mg, Daily Prasugrel HCl (EFFIENT) tablet 10 mg, 10 mg, Daily FLUIDS/DRIPS: PRNs: Acetaminophen, 650 mg, Q4H PRN magnesium oxide, 800 mg, As directed PRN magnesium sulfate, 4 g, As directed PRN Potassium chloride, 20 mEq, As directed PRN Potassium chloride, 40-60 mEq, As directed PRN Sodium chloride 0.9%, 250 mL, PRN ALLERGIES: He is allergic to penicillins, rosuvastatin, simvastatin, ciprofloxacin, bactrim [sulfamethoxazole-trimethoprim], meloxicam, plavix [clopidogrel], and varenicline. OBJECTIVE FINDINGS Vital Signs (24hrs): Temp: [97.5 F (36.4 C)-98.5 F (36.9 C)] 98.5 F (36.9 C) Pulse (Heart Rate): [59-99] 75 Resp Rate: [16-18] 18 BP: (131-149)/(74-90) 149/90 O2 Sat (%): [96 %-99 %] 98 % Weight: [97.7 kg (215 lb 6.2 oz)-98.5 kg (217 lb 2.5 oz)] 98.5 kg (217 lb 2.5 oz) Hemodynamic/Invasive Device Data (24 hrs): Pulmonary/Cardiac Hemodynamics Pulse (Heart Rate): 75 BSA (Calculated - sq m): 2.15 m2 Neuro ICP/CPP Monitoring MAP (mmHg): (!) 113 mmHg Neuro ICP/CPP Monitoring 2 MAP (mmHg): (!) 113 mmHg Ventilation/Oxygen Therapy (24hrs): Oxygen Therapy O2 Sat (%): 98 % O2 Device: room air Oxygen Delivery/Consumption Hemodynamics BSA (Calculated - sq m): 2.15 m2 Lines/Drains/Airways/Wounds: Patient Lines/Drains/Airways Status Active Lines, Drains, Airways, & Wound Overview Name Placement date Placement time Site Days Peripheral IV Line - Single Lumen 05/28/25 1026 median cubital vein (antecubital fossa), right 20 gauge 05/28/25 1026 -- less than 1 Wound Surgical 03/10/25 1534 Lower;Right Leg 03/10/25 1534 Leg 79 Fluid Management (24hrs): -Intake/Output last 3 shifts: I/O last 3 completed shifts: In: 910 [P.O.:910] Out: - Physical Examination: General: awake, cooperative, no acute distress HEENT: PERRL, EOMI, full neck ROM, no JVD Heart: RRR, S1+S2 present, no m/r/g Lung: Equal, bilateral breath sounds; normal respiratory effort, midline scar well healed on chest consistent with prior CABG Abdomen: soft, non-tender, non-distended Ext: warm, no edema; peripheral pulses present bilaterally Neuro: A&Ox4, moves all extremities spontaneously DIAGNOSTIC RESULTS/PROCEDURES Labs-ABGs Labs-CBC WBC/Hgb/Hct/Plts: 9.68/13.9/42.4/210 (05/29 116) Labs-Chem 7(PMC) Bun/Creat/Cl/CO2/Glucose: 18/0.98/107/24/93 (05/29 116) Na/K+/Phos/Mg/Ca: 140/4.0/--/2.2/9.4 (05/28 1104-05/29 116) Labs-Coags Ptt/Pt/Inr: 28.8/13.7/1.1 (05/28 1453) Additional Labs No results found for: "BNP" No results found for: "TROP" Lab Results Component Value Date CHOLESTEROL 162 05/10/2025 TRIG 428 (H) 05/10/2025 HDL 41 05/10/2025 Imaging/Radiological Studies: ECHOCARDIOGRAM LIMITED/FOLLOWUP (Results Pending) Recent Results (from the past 3650 days) INVASIVE CARDIOVASCULAR PROCEDURE 04/02/2025 (Final) Narrative Impression Obstructive moapa coronary artery disease Patent coronary bypass grafts Recommendations: Continue aggressive risk factor modification and medical management for CAD. Consider medical management of NSTEMI, 48 hours of heparin (can start 4 hours after hemostasis of femoral access site) and DAPT for at least 6-12 months Access: R femoral access, sheath left in for removal when ACT is below 160 L radial artery, TR band used for hemostasis Coronary angiography: The left main is angiographically normal. The left anterior descending (LAD) is a large vessel with 90% ISR of previously placed proximal LAD stent The left circumflex (LCx) has proximal 80% stenosis distal to the first obtuse marginal branch The right coronary artery is dominant with mid 80% stenosis Coronary bypass angiography ARORA-LAD graft is widely patent. There is some tapering near the distal anastomosis that is favored to represent competitive flow rather than obstructive stenosis. Required use of L radial artery access in order to engage SVG-RCA is widely patent SVG-OM is widely patent Results for orders placed during the hospital encounter of 04/02/25 ECHOCARDIOGRAM LIMITED/FOLLOWUP 04/02/2025 (Final) Interpretation Summary NSTEMI, limited oracle bpm consultant echo by fellow, CHITO reviewed 04/04/25. Mild segmental LV dysfunction, basal septal akinesis, lateral hypokinesis, EF ~45%. Grossly normal RV. Valves not assessed in data. Consults/Procedures: None Cosigned by Nicole Salinas MD, PhD at 05/29/2025 1:08 PM EDT Associated attestation - Nicole Salinas MD, PhD - 05/29/2025 1:08 PM EDT Meir Landrum was seen and evaluated independently evaluated and examined by me on 05/29/2025. I discussed my findings and the therapeutic plan with Dr. Oliveros. I have reviewed the laboratory results and imaging studies in the EMR on rounds. I agree with the overnight events and interval history, physical examination, and medical decisions and documentation supporting the plan of care as outlined today's progress note by Dr. Oliveros. I oversaw the plan of care developed by Dr. Oliveros. Vitals stable, heart no murmurs, lungs CTA, extremities no edema NSTEMI with minor troponin elevation in patient with recent CABG. Prior cath reviewed. We will plan on repeat cath tomorrow to assess anatomy and PCI if indicated Remainder as per the documentation and plan of care by Dr. Oliveros. Nicole Salinas MD, PhD, [facility], DANK electrical accessories assembler Director, Division of Cardiovascular Medicine The Luis Wolf Chair in Cardiology Division of Cardiovascular Medicine Department of Medicine [facility] documented in this encounter [facility] 05-30-2025 Nurse Note 2 Ross Daily Rounding Plan of Care The plan of care was discussed with the attending service regarding Meir Landrum. The 2 [place] Multidisciplinary Checklist was reviewed - yes Daily Plan of Care: -LHC--> 2 LILIANA stents placed -trend troponin -echo Avoiding Complications: Active Cardiac Monitoring Order: yes Active Restraints Order: no Restraint type: na Central Line or Arterial Line Present: no CVC indication: na Arterial line indication: na More Catheter Present: no Catheter Indication: na DVT and VTE Prophylaxis? yes Antibiotic Timeout Reviewed: no Nutrition Plan: DIET HEART HEALTHY - 4 GM SODIUM BM in the last 24hrs: yes Dakota Dakota Score: 20 Skin breakdown: no Wound Consult: no Activity plan: independent but with effort PT/OT: no Cardiac Rehab consult: yes Social Work: no Case Management needs: no Palliative needs present: no; consult placed no LDAs The type, length of duration and necessity of all lines and drains listed below was reviewed, in order to prevent any possible sources of infection and encourage timely removal. Patient Lines/Drains/Airways Status Active Lines, Drains, Airways, & Wound Overview Name Placement date Placement time Site Days Peripheral IV Line - Single Lumen 05/28/25 1026 median cubital vein (antecubital fossa), right 20 gauge 05/28/25 1026 -- 2 Peripheral IV Line - Single Lumen 05/29/25 1123 pink forearm, posterior, left 20 gauge;1 1/4 in length 05/29/25 1123 -- 1 Wound Surgical 03/10/25 1534 Lower;Right Leg 03/10/25 1534 Leg 81 Wound Surgical Sheath Site 05/30/25 1015 Left Radial 05/30/25 1015 Radial less than 1 [facility] 05-30-2025 Note Acute Coronary Syndr ome (ACS): Initial Evaluation and Management: [email or web address] quin [facility] 05-30-2025 Plan of care note Transient chest pain during the day and overnight. Somewhat relieved with nitro. Trending troponins: 38->696->926. No EKG changes. Problem: Adult Inpatient Plan of Care Goal: Plan of Care Review Outcome: Progressing Goal: Patient-Specific Goal (Individualized) Outcome: Progressing Goal: Absence of Hospital-Acquired Illness or Injury Outcome: Progressing Goal: Optimal Comfort and Wellbeing Outcome: Progressing Goal: Readiness for Transition of Care Outcome: Progressing [facility] 05-30-2025 Note Acute Coronary Syndr ome (ACS): Initial Evaluation and Management: [email or web address] [email or web address]#search=[email or web address] [facility] 05-30-2025 Note Acute Coronary Syndr ome (ACS): Initial Evaluation and Management: [email or web address] [email or web address]%[email or web address].pdf#search=[email or web address] [facility] 05-29-2025 Plan of care note Marlyn Singh Daily Rounding Plan of Care The plan of care was discussed with the attending service regarding Meir Landrum. The 2 Jeffrey Multidisciplinary Checklist was reviewed - yes Daily Plan of Care: Pt with intermittent chest pain. Started heparin gtt today. SL Ntg x2. Troponin levels at this time were 40>38 respectively. ECG neg. Pt reports pain relief after starting heparin infusion and GI cocktail. Plan for [facility] 05/30. Avoiding Complications: Active Cardiac Monitoring Order: yes Active Restraints Order: no Restraint type: Central Line or Arterial Line Present: no CVC indication: no Arterial line indication: no More Catheter Present: no Catheter Indication: no DVT and VTE Prophylaxis? No Antibiotic Timeout Reviewed: no Nutrition Plan: DIET HEART HEALTHY - 4 GM SODIUM DIET NPO with meds BM in the last 24hrs: yes Dakota Dakota Score: 23 Skin breakdown: yes Wound Consult: no Activity plan: normal PT/OT: no Cardiac Rehab consult: yes Social Work: yes Case Management needs: yes Palliative needs present: no; consult placed no LDAs The type, length of duration and necessity of all lines and drains listed below was reviewed, in order to prevent any possible sources of infection and encourage timely removal. Patient Lines/Drains/Airways Status Active Lines, Drains, Airways, & Wound Overview Name Placement date Placement time Site Days Peripheral IV Line - Single Lumen 05/28/25 1026 median cubital vein (antecubital fossa), right 20 gauge 05/28/25 1026 -- 1 Peripheral IV Line - Single Lumen 05/29/25 1123 pink forearm, posterior, left 20 gauge;1 1/4 in length 05/29/25 1123 -- less than 1 Wound Surgical 03/10/25 1534 Lower;Right Leg 03/10/25 1534 Leg 80 Problem: Adult Inpatient Plan of Care Goal: Plan of Care Review Outcome: Progressing Goal: Patient-Specific Goal (Individualized) Outcome: Progressing Goal: Absence of Hospital-Acquired Illness or Injury Outcome: Progressing Goal: Optimal Comfort and Wellbeing Outcome: Progressing Problem: Cardiac Catheterization (Diagnostic/Interventional) Goal: Stable Heart Rate and Rhythm Outcome: Progressing [facility] 05-29-2025 Note Acute Coronary Syndr ome (ACS): Initial Evaluation and Management: [email or web address] [facility] 05-29-2025 Note Acute Coronary Syndr ome (ACS): Initial Evaluation and Management: [email or web address].[email or web address]#search=[email or web address] [facility] 05-28-2025 Note Acute Coronary Syndr ome (ACS): Initial Evaluation and Management: [email or web address] [email or web address].pdf#search=[email or web address] [facility] 05-28-2025 Plan of care note Patient admitted to [facility] for CP. Patient alert & oriented x4. No complaints of pain/SOB at this time. VSS, NSR on telemetry. Orders reviewed. Labs and ECG obtained. Dr. Salinas resident notified of patient arrival. Plan for LHC. Admissions questions asked and completed to the best ability of the patient at this time. On admission to , from outside facility a dual RN initial assessment of skin condition was performed by Ned Barcenas RN and Nicole Espinoza RN. Skin Assessment: Skin within defined limits: Yes - s/p cabg-healing appropriately Dakota Score: 23 LDA Added:No Ned Barcenas RN Problem: Adult Inpatient Plan of Care Goal: Plan of Care Review Outcome: Progressing Goal: Patient-Specific Goal (Individualized) Outcome: Progressing Goal: Absence of Hospital-Acquired Illness or Injury Outcome: Progressing Goal: Optimal Comfort and Wellbeing Outcome: Progressing [facility] 05-28-2025 Note Acute Coronary Syndr ome (ACS): Initial Evaluation and Management: [email or web address]#search=[email or web address] [facility] 05-28-2025 History and physical note Images from the original note were not included. HRT3/HRT1 HISTORY AND PHYSICAL IDENTIFYING INFORMATION PATIENT: Meir Landrum ADMIT DATE: 05/28/2025 TIME OF EVALUATION: 05/28/2025 11:58 AM CHIEF COMPLAINT Chest pain HISTORY OF PRESENT ILLNESS Meir Landrum is a 70 y.o. male with a past medical history of CAD s/p PCI to LAD in 2008 and CABG (ARORA-LAD, SVG-OM, SVG-PDA) with LI ligation in 03/10/2025, HTN, HLD, hx of prior tobacco use who presents on 05/28 with chest pain yesterday. Per OSH ED Note 05/27, the patient presented with chest pain. He had cardiac rehab in the morning, then started doing yard work. Once he sat back down, developed chest pain. He described the chest pain as slightly worse with movement and radiating to the right shoulder. Took 5 nitroglycerin and 2 extra ASA with mild improvement in pain. Denies shortness of breath, nausea, sweating. CXR with no acute findings. Troponins 16>18>22. CBC and CMP within normal. Of note, had CABGx3 in March 2025. He had a similar presentation 3 weeks post-CABG and had a C at that time (04/02/25) with obstructive moapa coronary artery disease with LAD 90% ISR, proximal LCX 80% stenosis, midRCA 80% stenosis. He was started on plavix at that time, but was switched to prasugrel a week later due to intolerance. Was previously on imdur for antianginal but unable to tolerate as well due to headache. On risk modification, on atorvastatin 10mg (unable to tolerate 20mg) and zetia. On admission at [facility], patient agrees with HPI as above. Denies chest pain, shortness of breath, nausea/vomiting, abdominal pain, or leg swelling. CARDIAC HISTORY Primary Engineering Agent Luis Antonio Arias Last Admission 04/02-04/05/25 Last Ischemic Eval Cath 04/02/25 Coronary angiography: The left main is angiographically normal. The left anterior descending (LAD) is a large vessel with 90% ISR of previously placed proximal LAD stent The left circumflex (LCx) has proximal 80% stenosis distal to the first obtuse marginal branch The right coronary artery is dominant with mid 80% stenosis Coronary bypass angiography ARORA-LAD graft is widely patent. There is some tapering near the distal anastomosis that is favored to represent competitive flow rather than obstructive stenosis. Required use of L radial artery access in order to engage SVG-RCA is widely patent SVG-OM is widely patent Last Echo/MRI CMR 04/04/25: Mild systolic dysfunction with regional wall motion abnormalities and predominantly ischemic fibrosis. LVEF 48% Echo Limited 04/02/25: Mild segmental LV dysfunction, basal septal akinesis, lateral hypokinesis, EF ~45%. PCP Pratibha Ronquillo PAST MEDICAL, SURGICAL, FAMILY, and SOCIAL HISTORY Past Medical History[1] Past Surgical History[2] Family History Problem Relation Age of Onset Uterine Cancer Mother Heart Disease - Other Mother Heart Disease - Other Father Heart Failure Father Heart Disease - Other Maternal Uncle Myocardial Infarction Maternal Uncle Heart Disease - Other Maternal Grandfather Myocardial Infarction Maternal Grandfather Heart Disease - Other Paternal Grandfather Myocardial Infarction Paternal Grandfather Social History[3] MEDICATIONS SCHEDULED: aspirin chewable tablet 81 mg, 81 mg, Daily Atorvastatin (LIPITOR) tablet 10 mg, 10 mg, Daily Enoxaparin Sodium (LOVENOX) injection 40 mg, 40 mg, Daily Ezetimibe (ZETIA) 10 mg, 10 mg, Daily Metoprolol succinate (TOPROL-XL) tablet XL 25 mg, 25 mg, Daily Pantoprazole (PROTONIX) tablet DR 40 mg, 40 mg, Daily Prasugrel HCl (EFFIENT) tablet 10 mg, 10 mg, Daily FLUIDS/DRIPS: PRNs: magnesium oxide, 800 mg, As directed PRN magnesium sulfate, 4 g, As directed PRN Potassium chloride, 20 mEq, As directed PRN Potassium chloride, 40-60 mEq, As directed PRN Sodium chloride 0.9%, 250 mL, PRN ALLERGIES: He is allergic to penicillins, rosuvastatin, simvastatin, ciprofloxacin, bactrim [sulfamethoxazole-trimethoprim], meloxicam, plavix [clopidogrel], and varenicline. PRIOR TO ARRIVAL MEDS: Prior to Admission Medications Prescriptions Last Dose Informant Patient Reported? Taking? Acetaminophen 325 MG tablet No No Sig: Take 2 tablets by mouth every 6 hours as needed for Moderate Pain or Mild Pain. Atorvastatin 10 MG tablet Yes No Sig: Take 1 tablet by mouth daily. Ezetimibe 10 MG tablet No No Sig: Take 1 tablet by mouth daily. Metoprolol succinate (Toprol XL) 25 MG tablet XL No No Sig: Take 1 tablet by mouth daily. Multiple Vitamins-Minerals (Multivitamin Gummies Adult) Chew Tab Yes No Sig: Chew 1 tablet daily. Prasugrel HCl (Effient) 10 MG tablet No No Sig: Take 1 tablet by mouth daily. aspirin 81 MG Chew Tab chewable tablet No No Sig: Chew 1 tablet daily. nitroGLYCERIN 0.4 MG tablet SL Yes No Sig: Place 1 tablet under tongue every 5 minutes as needed for Chest pain. max = 3 doses. If CP persists after 1st dose, call 911 pantoprazole [address] tablet DR Yes No Sig: Take 1 tablet by mouth daily. Facility-Administered Medications: None REVIEW OF SYSTEMS Positive in BOLD, otherwise negative CONSTITUTIONAL: fever, chills, sweats, weight change, fatigue EYES: changes in vision or pain ENT: rhinorrhea, sore throat CV: chest pain, palpitations, peripheral edema PULM: dyspnea, orthopnea, cough, hemoptysis GI: nausea, vomiting, diarrhea, melena, hematochezia : dysuria, hematuria MSK: arthralgias, myalgias SKIN: rash, sores NEURO: headache, weakness HEME: lymphadenopathy, easy bruising ENDO: heat/cold intolerance, polydipsia ALLERGY: hives, pruritis PSYCH: depression, anxiety Denies symptoms at time of admission. OBJECTIVE FINDINGS Vital Signs (24hrs): Vitals: 05/28/25 1000 BP: 141/90 Pulse: 88 Resp: 16 Temp: 97.8 F (36.6 C) SpO2: 99% Temp: [97.8 F (36.6 C)] 97.8 F (36.6 C) Pulse (Heart Rate): [88] 88 Resp Rate: [16] 16 BP: (141)/(90) 141/90 O2 Sat (%): [99 %] 99 % Weight: [97.7 kg (215 lb 6.2 oz)] 97.7 kg (215 lb 6.2 oz) O2 Device: room air (05/28/25 1011) Lines/Drains/Airways/Wounds: Patient Lines/Drains/Airways Status Active Lines, Drains, Airways, & Wound Overview Name Placement date Placement time Site Days Peripheral IV Line - Single Lumen 05/28/25 1026 median cubital vein (antecubital fossa), right 20 gauge 05/28/25 1026 -- less than 1 Wound Surgical 03/10/25 1534 Lower;Right Leg 03/10/25 1534 Leg 78 Fluid Management (24hrs): -Intake/Output last 3 shifts: No intake/output data recorded. Physical Examination: Gen: in no acute distress, laying comfortably in bed HENT: PERRL, EOMI, normal appearing conjunctiva, sclera anicteric Resp: clear to auscultation bilaterally, no wheezes, rales, or ronchi Cardio: regular rate and rhythm, nl S1, S2, no audible murmurs or rubs, midline scar well healed on chest consistent with prior CABG GI: soft, nontender, nondistended, bowel sounds active, no rebounding or guarding MS: moves all extremities, nails appear healthy Skin: no rash or bruises, warm and dry Neuro: grossly intact, no focal deficits Psych: appropriate affect, alert and oriented x3 Body mass index is 30.91 kg/m . DIAGNOSTIC RESULTS/PROCEDURES ABGs CBC WBC/Hgb/Hct/Plts: 10.26/15.4/45.6/236 (05/28 1104) Chem 7(PMC) Bun/Creat/Cl/CO2/Glucose: 17/0.96/105/23/87 (05/28 1104) Na/K+/Phos/Mg/Ca: 138/4.6/--/2.3/9.4 (05/28 1104) Coags Additional Labs No results found for: "BNP" No results found for: "TROP" Lab Results Component Value Date CHOLESTEROL 162 05/10/2025 TRIG 428 (H) 05/10/2025 HDL 41 05/10/2025 Imaging/ECG/Echo: Results for orders placed during the hospital encounter of 04/02/25 ECHOCARDIOGRAM LIMITED/FOLLOWUP 04/02/2025 (Final) Interpretation Summary NSTEMI, limited oracle bpm consultant echo by fellowCHITO reviewed 04/04/25. Mild segmental LV dysfunction, basal septal akinesis, lateral hypokinesis, EF ~45%. Grossly normal RV. Valves not assessed in data. Recent Results (from the past 3650 days) INVASIVE CARDIOVASCULAR PROCEDURE 04/02/2025 (Final) Narrative Impression Obstructive moapa coronary artery disease Patent coronary bypass grafts Recommendations: Continue aggressive risk factor modification and medical management for CAD. Consider medical management of NSTEMI, 48 hours of heparin (can start 4 hours after hemostasis of femoral access site) and DAPT for at least 6-12 months Access: R femoral access, sheath left in for removal when ACT is below 160 L radial artery, TR band used for hemostasis Coronary angiography: The left main is angiographically normal. The left anterior descending (LAD) is a large vessel with 90% ISR of previously placed proximal LAD stent The left circumflex (LCx) has proximal 80% stenosis distal to the first obtuse marginal branch The right coronary artery is dominant with mid 80% stenosis Coronary bypass angiography ARORA-LAD graft is widely patent. There is some tapering near the distal anastomosis that is favored to represent competitive flow rather than obstructive stenosis. Required use of L radial artery access in order to engage SVG-RCA is widely patent SVG-OM is widely patent ASSESSMENT AND PLAN Meir Landrum is a 70 y.o. male with a history of CAD s/p PCI to LAD in 2008 and CABG (ARORA-LAD, SVG-OM, SVG-PDA) with LI ligation in 03/10/2025, HTN, HLD, hx of prior tobacco use. NSTEMI Type 2 CAD s/p CABGx3 03/10/25, PCI to LAD in 2008 Per patient, history of stents to LAD in 2008 which was very traumatic due to uncontrolled femoral site bleeding post-PCI. Recent CABGx3 (ARORA-LAD, SVG-OM, SVG-PDA) with LI ligation on 03/10/2025. Has been in cardiac rehab. Had an episode of chest pain 3 weeks post-CABG and was admitted for NSTEMI. Last cath 04/02/25 with patent bypass grafts and obstructive moapa coronary artery disease with suggestion of aggressive risk factor modification for which he was initiated on DAPT. This admission, presented with chest pain for the first time since March in the setting of exertion. Troponin elevated to 22 in OSH ED (reference >12). - CXR with no acute findings - ECG with NSR - Admission troponin 114; Repeat troponin in 1hr, if uptrending then will trend and start heparin gtt - Antiplatelet: home bASA, prasugrel - Lipid management: home atorvastatin 10mg, zetia 10mg - Antianginals: home Toprol 25mg, SL nitroglycerin prn - Limited TTE ordered Hypertension - Continue home Toprol 25mg Hyperlipidemia Hypertriglyceridemia Per patient, unable to tolerate high-intensity statin dosage. Triglycerides managed by diet modification at this time. - Continue home atorvastatin 10mg & zetia Leukocytosis WBC on admission 10.26. Low concern for infection at this time given patient is afebrile and asymptomatic. CXR negative. - CTM Chronic Medical Problems: GERD: home PPI daily Quality Self-Check Complexity. Obesity, class I Body mass index is 30.91 kg/m . - Follow with PCP for dietary and lifestyle modifications. Wound Documentation Wound Surgical 03/10/25 1534 Lower;Right Leg (Active) Date First Assessed/Time First Assessed: 03/10/25 153 Primary Wound Type: Surgical Present on Original Admission: No Device Related: no Incision Type: laparoscopic punctures Incision Closure/Dressing: Dermabond;Island Dressing;Pedrito Wrap Wound L... Any conditions listed below are present on admission unless otherwise specified. . Diet: DIET HEART HEALTHY - 4 GM SODIUM DIET NPO with meds DVT Prophylaxis: [] heparin [x] lovenox [] on therapeutic anticoagulation [] SCDs only ([]concern for bleed, [] Patient ambulating > 500 ft/day) Lines: [x] PIV []More [] CVC GI Prophylaxis: [] Famotidine BID [x] PPI daily [] GI ppx not indicated Code Status: Full Code Dispo: admit to hospital, final disposition plan to be determined Plan discussed with attending and team on rounds. Shira Oliveros MD, MPH Internal Medicine, PGY-1 [1] Past Medical History: Diagnosis Date Arthritis CAD (coronary artery disease) Cardiac angina Congestive heart failure Diverticulitis GERD (gastroesophageal reflux disease) Hyperlipidemia VT (myocardial infarction) [2] Past Surgical History: Procedure Laterality Date CABG W/ ARTERY GRAFT OPEN Midline 03/10/2025 Laterality: Midline; Surgeon: Bony Garcia MD, PhD; Location: [facility] MAIN OR ARTHROPLASTY SHOULDER TOTAL Left 08/14/2022 Laterality: Left; Surgeon: Robin Mcguire MD; Location: [facility] MAIN OR TENODESIS BICEPS LONG TENDON Left 08/14/2022 Laterality: Left; Surgeon: Robin Mcguire MD; Location: [facility] MA[facility] OR ARTHROPLASTY HIP TOTAL ANTERIOR APPROACH Right 07/02/2021 Laterality: Right; Surgeon: Amarjit Marroquin MD; Location: [facility] MA[facility] OR ASPIRATION OR INJECTION LARGE JOINT BURSA Left 07/02/2021 Laterality: Left; Surgeon: Amarjit Marroquin MD; Location: [facility] MAIN OR CORONARY STENT PLACEMENT 2009 MENISCECTOMY Left SHOULDER ARTHROSCOPY Right [3] Social History Socioeconomic History Marital status: Single Tobacco Use Smoking status: Some Days Current packs/day: 0.50 Average packs/day: 1 pack/day for 48.4 years (47.5 ttl pk-yrs) Types: Cigarettes Start date: 09/08/1974 Last attempt to quit: 04/30/2021 Smokeless tobacco: Never Tobacco comments: Not a heavy smoker and have quit several times in last 10 years Vaping Use Vaping status: Former Substance and Sexual Activity Alcohol use: Not Currently Comment: Less than once a week Drug use: Never Sexual activity: Yes Partners: Female control/protection: Female Sterilization Comment: My had a hysterictomy in 2018 Other Topics Concern Occupational Exposure No Hobby Hazards No Social Drivers of Health Food Insecurity: No Food Insecurity (04/03/2025) NCSS - Food Insecurity Worried About Running Out of Food in the Last Year: No Ran Out of Food in the Last Year: No Transportation Needs: No Transportation Needs (04/03/2025) NCSS - Transportation Lack of Transportation: No Personal Safety: Not At Risk (04/03/2025) NCSS - Interpersonal Safety Feels Physically and Emotionally Safe: Yes Physically Hurt by Someone: No Humiliated or Emotionally Abused by Someone: No Housing Stability: Not At Risk (04/03/2025) NCSS - Housing/Utilities Has Housing: Yes Worried About Losing Housing: No Unable to Get Utilities: No Cosigned by Nicole Salinas MD, PhD at 05/28/2025 4:05 PM EDT Associated attestation - Nicole Salinas MD, PhD - 05/28/2025 4:05 PM EDT Attending Physician Attestation (GC): I have interviewed and independently examined Meir Landrum on 05/28/2025. I have reviewed the History and Physical documentation by Dr. Oliveros and I concur with the HPI, Medications, Allergies, ROS, Family History, Social History,and Past Medical History. In brief, Meir Landrum is a 70 y.o. male with known ASCVD s/p CABG surgery who is known to me. He presented with recurrnet CP and found to hive mild increase in tropoini. Transferred for further care. On my eeacm he is alert and oriented. He is chest pain free. Physical Examination: Vitals As documented in the housestaff note General: alert, cooperative, no distress, appears stated age HEENT: PERRLA and EOMI Neck: Normal Lungs: clear to auscultation bilaterally Cardiovascular: regular rate and rhythm, S1, S2 normal, no murmur, click, rub or gallop Abdomen: Bowel sounds are normal Neurologic grossly non-focal Extremities: No edema Additional comments (if any): I have reviewed all of the pertinent laboratory results and imaging in the EMR on rounds Assessment and Plan I actively participated in the plan of care. I have reviewed the laboratory and imaging results I agree with the medical decision and documentation and the assessment supporting the plan of care. ASCVD. With NSTEMI. He has residual ASCVD and may have outstripped collaterals with his increased activities yesterday. We will plan for repeat coronary angiogram to ensure that no intervention is warranted Remainder as documented by Dr. Arlin Salinas MD, PhD, [facility], [facility] electrical accessories assembler Director, Division of Cardiovascular Medicine [facility] in Cardiology Division of Cardiovascular Medicine Department of Medicine [facility] [place] 05-28-2025 History and physical note Images from the original note were not included. HRT3/HRT1 HISTORY AND PHYSICAL IDENTIFYING INFORMATION PATIENT: Meir Landrum ADMIT DATE: 05/28/2025 TIME OF EVALUATION: 05/28/2025 11:58 AM CHIEF COMPLAINT Chest pain HISTORY OF PRESENT ILLNESS Meir Landrum is a 70 y.o. male with a past medical history of CAD s/p PCI to LAD in 2008 and CABG (ARORA-LAD, SVG-OM, SVG-PDA) with LI ligation in 03/10/2025, HTN, HLD, hx of prior tobacco use who presents on 9/20 with chest pain yesterday. Per OSH ED Note 05/27, the patient presented with chest pain. He had cardiac rehab in the morning, then started doing yard work. Once he sat back down, developed chest pain. He described the chest pain as slightly worse with movement and radiating to the right shoulder. Took 5 nitroglycerin and 2 extra ASA with mild improvement in pain. Denies shortness of breath, nausea, sweating. CXR with no acute findings. Troponins 16>18>22. CBC and CMP within normal. Of note, had CABGx3 in March 2025. He had a similar presentation 3 weeks post-CABG and had a LHC at that time (04/02/25) with obstructive moapa coronary artery disease with LAD 90% ISR, proximal LCX 80% stenosis, midRCA 80% stenosis. He was started on plavix at that time, but was switched to prasugrel a week later due to intolerance. Was previously on imdur for antianginal but unable to tolerate as well due to headache. On risk modification, on atorvastatin 10mg (unable to tolerate 20mg) and zetia. On admission at [facility], patient agrees with HPI as above. Denies chest pain, shortness of breath, nausea/vomiting, abdominal pain, or leg swelling. CARDIAC HISTORY Primary Engineering Agent Luis Antonio Arias Last Admission 04/02-04/05/25 Last Ischemic Eval Cath 04/02/25 Coronary angiography: The left main is angiographically normal. The left anterior descending (LAD) is a large vessel with 90% ISR of previously placed proximal LAD stent The left circumflex (LCx) has proximal 80% stenosis distal to the first obtuse marginal branch The right coronary artery is dominant with mid 80% stenosis Coronary bypass angiography ARORA-LAD graft is widely patent. There is some tapering near the distal anastomosis that is favored to represent competitive flow rather than obstructive stenosis. Required use of L radial artery access in order to engage SVG-RCA is widely patent SVG-OM is widely patent Last Echo/MRI CMR 04/04/25: Mild systolic dysfunction with regional wall motion abnormalities and predominantly ischemic fibrosis. LVEF 48% Echo Limited 04/02/25: Mild segmental LV dysfunction, basal septal akinesis, lateral hypokinesis, EF ~45%. PCP Pratibha Ronquillo PAST MEDICAL, SURGICAL, FAMILY, and SOCIAL HISTORY Past Medical History[1] Past Surgical History[2] Family History Problem Relation Age of Onset Uterine Cancer Mother Heart Disease - Other Mother Heart Disease - Other Father Heart Failure Father Heart Disease - Other Maternal Uncle Myocardial Infarction Maternal Uncle Heart Disease - Other Maternal Grandfather Myocardial Infarction Maternal Grandfather Heart Disease - Other Paternal Grandfather Myocardial Infarction Paternal Grandfather Social History[3] MEDICATIONS SCHEDULED: aspirin chewable tablet 81 mg, 81 mg, Daily Atorvastatin (LIPITOR) tablet 10 mg, 10 mg, Daily Enoxaparin Sodium (LOVENOX) injection 40 mg, 40 mg, Daily Ezetimibe (ZETIA) 10 mg, 10 mg, Daily Metoprolol succinate (TOPROL-XL) tablet XL 25 mg, 25 mg, Daily Pantoprazole (PROTONIX) tablet DR 40 mg, 40 mg, Daily Prasugrel HCl (EFFIENT) tablet 10 mg, 10 mg, Daily FLUIDS/DRIPS: PRNs: magnesium oxide, 800 mg, As directed PRN magnesium sulfate, 4 g, As directed PRN Potassium chloride, 20 mEq, As directed PRN Potassium chloride, 40-60 mEq, As directed PRN Sodium chloride 0.9%, 250 mL, PRN ALLERGIES: He is allergic to penicillins, rosuvastatin, simvastatin, ciprofloxacin, bactrim [sulfamethoxazole-trimethoprim], meloxicam, plavix [clopidogrel], and varenicline. PRIOR TO ARRIVAL MEDS: Prior to Admission Medications Prescriptions Last Dose Informant Patient Reported? Taking? Acetaminophen 325 MG tablet No No Sig: Take 2 tablets by mouth every 6 hours as needed for Moderate Pain or Mild Pain. Atorvastatin 10 MG tablet Yes No Sig: Take 1 tablet by mouth daily. Ezetimibe 10 MG tablet No No Sig: Take 1 tablet by mouth daily. Metoprolol succinate (Toprol XL) 25 MG tablet XL No No Sig: Take 1 tablet by mouth daily. Multiple Vitamins-Minerals (Multivitamin Gummies Adult) Chew Tab Yes No Sig: Chew 1 tablet daily. Prasugrel HCl (Effient) 10 MG tablet No No Sig: Take 1 tablet by mouth daily. aspirin 81 MG Chew Tab chewable tablet No No Sig: Chew 1 tablet daily. nitroGLYCERIN 0.4 MG tablet SL Yes No Sig: Place 1 tablet under tongue every 5 minutes as needed for Chest pain. max = 3 doses. If CP persists after 1st dose, call 911 pantoprazole [address] tablet DR Yes No Sig: Take 1 tablet by mouth daily. Facility-Administered Medications: None REVIEW OF SYSTEMS Positive in BOLD, otherwise negative CONSTITUTIONAL: fever, chills, sweats, weight change, fatigue EYES: changes in vision or pain ENT: rhinorrhea, sore throat CV: chest pain, palpitations, peripheral edema PULM: dyspnea, orthopnea, cough, hemoptysis GI: nausea, vomiting, diarrhea, melena, hematochezia : dysuria, hematuria MSK: arthralgias, myalgias SKIN: rash, sores NEURO: headache, weakness HEME: lymphadenopathy, easy bruising ENDO: heat/cold intolerance, polydipsia ALLERGY: hives, pruritis PSYCH: depression, anxiety Denies symptoms at time of admission. OBJECTIVE FINDINGS Vital Signs (24hrs): Vitals: 05/28/25 1000 BP: 141/90 Pulse: 88 Resp: 16 Temp: 97.8 F (36.6 C) SpO2: 99% Temp: [97.8 F (36.6 C)] 97.8 F (36.6 C) Pulse (Heart Rate): [88] 88 Resp Rate: [16] 16 BP: (141)/(90) 141/90 O2 Sat (%): [99 %] 99 % Weight: [97.7 kg (215 lb 6.2 oz)] 97.7 kg (215 lb 6.2 oz) O2 Device: room air (05/28/25 1011) Lines/Drains/Airways/Wounds: Patient Lines/Drains/Airways Status Active Lines, Drains, Airways, & Wound Overview Name Placement date Placement time Site Days Peripheral IV Line - Single Lumen 05/28/25 1026 median cubital vein (antecubital fossa), right 20 gauge 05/28/25 1026 -- less than 1 Wound Surgical 03/10/25 1534 Lower;Right Leg 03/10/25 1534 Leg 78 Fluid Management (24hrs): -Intake/Output last 3 shifts: No intake/output data recorded. Physical Examination: Gen: in no acute distress, laying comfortably in bed HENT: PERRL, EOMI, normal appearing conjunctiva, sclera anicteric Resp: clear to auscultation bilaterally, no wheezes, rales, or ronchi Cardio: regular rate and rhythm, nl S1, S2, no audible murmurs or rubs, midline scar well healed on chest consistent with prior CABG GI: soft, nontender, nondistended, bowel sounds active, no rebounding or guarding MS: moves all extremities, nails appear healthy Skin: no rash or bruises, warm and dry Neuro: grossly intact, no focal deficits Psych: appropriate affect, alert and oriented x3 Body mass index is 30.91 kg/m . DIAGNOSTIC RESULTS/PROCEDURES ABGs CBC WBC/Hgb/Hct/Plts: 10.26/15.4/45.6/236 (05/28 1104) Chem 7(PMC) Bun/Creat/Cl/CO2/Glucose: 17/0.96/105/23/87 (05/28 1104) Na/K+/Phos/Mg/Ca: 138/4.6/--/2.3/9.4 (05/28 1104) Coags Additional Labs No results found for: "BNP" No results found for: "TROP" Lab Results Component Value Date CHOLESTEROL 162 05/10/2025 TRIG 428 (H) 05/10/2025 HDL 41 05/10/2025 Imaging/ECG/Echo: Results for orders placed during the hospital encounter of 04/02/25 ECHOCARDIOGRAM LIMITED/FOLLOWUP 04/02/2025 (Final) Interpretation Summary NSTEMI, limited oracle bpm consultant echo by fellowCHITO reviewed 04/04/25. Mild segmental LV dysfunction, basal septal akinesis, lateral hypokinesis, EF ~45%. Grossly normal RV. Valves not assessed in data. Recent Results (from the past 3650 days) INVASIVE CARDIOVASCULAR PROCEDURE 04/02/2025 (Final) Narrative Impression Obstructive moapa coronary artery disease Patent coronary bypass grafts Recommendations: Continue aggressive risk factor modification and medical management for CAD. Consider medical management of NSTEMI, 48 hours of heparin (can start 4 hours after hemostasis of femoral access site) and DAPT for at least 6-12 months Access: R femoral access, sheath left in for removal when ACT is below 160 L radial artery, TR band used for hemostasis Coronary angiography: The left main is angiographically normal. The left anterior descending (LAD) is a large vessel with 90% ISR of previously placed proximal LAD stent The left circumflex (LCx) has proximal 80% stenosis distal to the first obtuse marginal branch The right coronary artery is dominant with mid 80% stenosis Coronary bypass angiography ARORA-LAD graft is widely patent. There is some tapering near the distal anastomosis that is favored to represent competitive flow rather than obstructive stenosis. Required use of L radial artery access in order to engage SVG-RCA is widely patent SVG-OM is widely patent ASSESSMENT AND PLAN Meir Landrum is a 70 y.o. male with a history of CAD s/p PCI to LAD in 2008 and CABG (ARORA-LAD, SVG-OM, SVG-PDA) with LI ligation in 03/10/2025, HTN, HLD, hx of prior tobacco use. NSTEMI Type 2 CAD s/p CABGx3 03/10/25, PCI to LAD in 2008 Per patient, history of stents to LAD in 2008 which was very traumatic due to uncontrolled femoral site bleeding post-PCI. Recent CABGx3 (ARORA-LAD, SVG-OM, SVG-PDA) with LI ligation on 03/10/2025. Has been in cardiac rehab. Had an episode of chest pain 3 weeks post-CABG and was admitted for NSTEMI. Last cath 04/02/25 with patent bypass grafts and obstructive moapa coronary artery disease with suggestion of aggressive risk factor modification for which he was initiated on DAPT. This admission, presented with chest pain for the first time since March in the setting of exertion. Troponin elevated to 22 in [facility] ED (reference >12). - CXR with no acute findings - ECG with NSR - Admission troponin 114; Repeat troponin in 1hr, if uptrending then will trend and start heparin gtt - Antiplatelet: home bASA, prasugrel - Lipid management: home atorvastatin 10mg, zetia 10mg - Antianginals: home Toprol 25mg, SL nitroglycerin prn - Limited TTE ordered Hypertension - Continue home Toprol 25mg Hyperlipidemia Hypertriglyceridemia Per patient, unable to tolerate high-intensity statin dosage. Triglycerides managed by diet modification at this time. - Continue home atorvastatin 10mg & zetia Leukocytosis WBC on admission 10.26. Low concern for infection at this time given patient is afebrile and asymptomatic. CXR negative. - CTM Chronic Medical Problems: GERD: home PPI daily Quality Self-Check Complexity. Obesity, class I Body mass index is 30.91 kg/m . - Follow with PCP for dietary and lifestyle modifications. Wound Documentation Wound Surgical 03/10/25 1534 Lower;Right Leg (Active) Date First Assessed/Time First Assessed: 03/10/25 1534 Primary Wound Type: Surgical Present on Original Admission: No Device Related: no Incision Type: laparoscopic punctures Incision Closure/Dressing: Dermabond;Island Dressing;Pedrito Wrap Wound L... Any conditions listed below are present on admission unless otherwise specified. . Diet: DIET HEART HEALTHY - 4 GM SODIUM DIET NPO with meds DVT Prophylaxis: [] heparin [x] lovenox [] on therapeutic anticoagulation [] SCDs only ([]concern for bleed, [] Patient ambulating > 500 ft/day) Lines: [x] PIV []More [] CVC GI Prophylaxis: [] Famotidine BID [x] PPI daily [] GI ppx not indicated Code Status: Full Code Dispo: admit to hospital, final disposition plan to be determined Plan discussed with attending and team on rounds. Shira Oliveros MD, MPH Internal Medicine, PGY-1 [1] Past Medical History: Diagnosis Date Arthritis CAD (coronary artery disease) Cardiac angina Congestive heart failure Diverticulitis GERD (gastroesophageal reflux disease) Hyperlipidemia VT (myocardial infarction) [2] Past Surgical History: Procedure Laterality Date CABG W/ ARTERY GRAFT OPEN Midline 03/10/2025 Laterality: Midline; Surgeon: Bony Garcia MD, PhD; Location: [facility] MA[facility] OR ARTHROPLASTY SHOULDER TOTAL Left 08/14/2022 Laterality: Left; Surgeon: Robin Mcguire MD; Location: [facility] MA[facility] OR TENODESIS BICEPS LONG TENDON Left 08/14/2022 Laterality: Left; Surgeon: Robin Mcguire MD; Location: [facility] MA[facility] OR ARTHROPLASTY HIP TOTAL ANTERIOR APPROACH Right 07/02/2021 Laterality: Right; Surgeon: Amarjit Marroquin MD; Location: [facility] MA[facility] OR ASPIRATION OR INJECTION LARGE JOINT BURSA Left 07/02/2021 Laterality: Left; Surgeon: Amarjit Marroquin MD; Location: [facility] MA[facility] OR CORONARY STENT PLACEMENT 2009 MENISCECTOMY Left SHOULDER ARTHROSCOPY Right [3] Social History Socioeconomic History Marital status: Single Tobacco Use Smoking status: Some Days Current packs/day: 0.50 Average packs/day: 1 pack/day for 48.4 years (47.5 ttl pk-yrs) Types: Cigarettes Start date: 09/08/1974 Last attempt to quit: 04/30/2021 Smokeless tobacco: Never Tobacco comments: Not a heavy smoker and have quit several times in last 10 years Vaping Use Vaping status: Former Substance and Sexual Activity Alcohol use: Not Currently Comment: Less than once a week Drug use: Never Sexual activity: Yes Partners: Female control/protection: Female Sterilization Comment: My had a hysterictomy in 2018 Other Topics Concern Occupational Exposure No Hobby Hazards No Social Drivers of Health Food Insecurity: No Food Insecurity (04/03/2025) NCSS - Food Insecurity Worried About Running Out of Food in the Last Year: No Ran Out of Food in the Last Year: No Transportation Needs: No Transportation Needs (04/03/2025) NCSS - Transportation Lack of Transportation: No Personal Safety: Not At Risk (04/03/2025) NCSS - Interpersonal Safety Feels Physically and Emotionally Safe: Yes Physically Hurt by Someone: No Humiliated or Emotionally Abused by Someone: No Housing Stability: Not At Risk (04/03/2025) NCSS - Housing/Utilities Has Housing: Yes Worried About Losing Housing: No Unable to Get Utilities: No Cosigned by Nicole Salinas MD, PhD at 05/28/2025 4:05 PM EDT Associated attestation - Nicole Salinas MD, PhD - 05/28/2025 4:05 PM EDT Attending Physician Attestation (GC): I have interviewed and independently examined Meir Landrum on 05/28/2025. I have reviewed the History and Physical documentation by Dr. Oliveros and I concur with the HPI, Medications, Allergies, ROS, Family History, Social History,and Past Medical History. In brief, Meir Landrum is a 70 y.o. male with known ASCVD s/p CABG surgery who is known to me. He presented with recurrnet CP and found to hive mild increase in tropoini. Transferred for further care. On my eeacm he is alert and oriented. He is chest pain free. Physical Examination: Vitals As documented in the housestaff note General: alert, cooperative, no distress, appears stated age HEENT: PERRLA and EOMI Neck: Normal Lungs: clear to auscultation bilaterally Cardiovascular: regular rate and rhythm, S1, S2 normal, no murmur, click, rub or gallop Abdomen: Bowel sounds are normal Neurologic grossly non-focal Extremities: No edema Additional comments (if any): I have reviewed all of the pertinent laboratory results and imaging in the EMR on rounds Assessment and Plan I actively participated in the plan of care. I have reviewed the laboratory and imaging results I agree with the medical decision and documentation and the assessment supporting the plan of care. ASCVD. With NSTEMI. He has residual ASCVD and may have outstripped collaterals with his increased activities yesterday. We will plan for repeat coronary angiogram to ensure that no intervention is warranted Remainder as documented by Dr. Arlin Salinas MD, PhD, [facility], [facility] electrical accessories assembler Director, Division of Cardiovascular Medicine [facility] in Cardiology Division of Cardiovascular Medicine Department of Medicine [facility] documented in this encounter [facility] 05-10-2025 Evaluation + Plan note Associated Problem(s): Hyperlipidemia He will be having lipid labs performed. If his lipid labs do not improve and based upon his intolerance to advancing his statin dose, etc., then as he has also been on ezetimibe/Zetia, he will need to be considered for alteration medical management. This would be with a PCSK9 inhibitor. This was discussed and reviewed with him during his office visit. [facility] 05-10-2025 Miscellaneous Notes Associated Problem(s): Hyperlipidemia He will be having lipid labs performed. If his lipid labs do not improve and based upon his intolerance to advancing his statin dose, etc., then as he has also been on ezetimibe/Zetia, he will need to be considered for alteration medical management. This would be with a PCSK9 inhibitor. This was discussed and reviewed with him during his office visit. Associated Problem(s): S/P CABG x 3 At the present time he is continuing medical management. He is continuing outpatient cardiac rehabilitation. He will need to continue with future outpatient follow-up. Associated Problem(s): H/O heart artery stent He has a history of remote LAD PCI. He has now status post CABG. He has undergone post CABG diagnostic cardiac catheterization. His ARORA to the LAD was distally somewhat atretic. The LAD was patent. He did not require additional revascularization therapy. Associated Problem(s): 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 At the present time he will continue his current medical management. He will continue with outpatient cardiac rehabilitation therapy. He will need future outpatient follow-up to monitor his condition. documented in this encounter [facility] 05-10-2025 Evaluation + Plan note Associated Problem(s): S/P CABG x 3 At the present time he is continuing medical management. He is continuing outpatient cardiac rehabilitation. He will need to continue with future outpatient follow-up. [facility] 05-10-2025 Evaluation + Plan note Associated Problem(s): H/O heart artery stent He has a history of remote LAD PCI. He has now status post CABG. He has undergone post CABG diagnostic cardiac catheterization. His ARORA to the LAD was distally somewhat atretic. The LAD was patent. He did not require additional revascularization therapy. [facility] 05-10-2025 Evaluation + Plan note Associated Problem(s): 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 At the present time he will continue his current medical management. He will continue with outpatient cardiac rehabilitation therapy. He will need future outpatient follow-up to monitor his condition. [facility] 05-10-2025 History of Presen t illness Narrative Images from the original note were not included. Primary care provider: Pratibha Ronquillo DO (General) Dear Dr. Ronquillo, I had the pleasure of seeing your patient, Meir Landrum, at the [facility] on 05/10/2025 in follow-up. I have reviewed pertinent outside medical records available at this time regarding this patient. As you recall, this 70 y.o. male is managed by our group for CAD, s/p LAD PCI (2008), s/p CABG, and hyperlipidemia. Chief Complaint Patient presents with Follow-up 3 mo follow-up. 3 mo CABG. Ribcage soreness and fatigue. Feels better after discontinuing Plavix and starting Effient. HPI: Initial HPI from: 07/21/2023 This is a 68-year-old white male who presents for a new outpatient cardiovascular visit with a history of underlying CAD status post PCI-LAD at [facility] (2008), hyperlipidemia, for concerns of chest discomfort concerning for angina pectoris. He has previously been followed through the [facility] in [place], [place]. He has requested transferring his care to [facility] Cardiovascular Medicine. He states he has been doing well until a short time ago. He developed concerns of centralized chest pressure. He states it was somewhat random. It did not necessarily radiate out of his chest. He can have associated dyspnea on exertion. There was no obvious orthopnea, PND, or worsening peripheral pitting edema. He has had no near-syncope or syncope. He states following his chest pressure events he then developed an respiratory tract related issue. He tested negative for COVID-19. He was evaluated by his PCP. He was placed on antibiotic therapy. He states he feels somewhat better but still feels he has drainage from his upper respiratory tract. He is status post a previous hip surgery. He states he has been dealing with plantar fasciitis. He has been evaluated by other physicians and has changed shoes, insoles, and had various injections performed. He knows he has had his lipid labs performed in the past. He does not believe he is undergone any recent cardiovascular diagnostic studies. Some of his previous studies are noted below. They have included an ECG, and echocardiogram, and his cardiac catheterization/PCI procedure. Again, this was performed at [facility] and included PCI to the LAD distribution. He had an ECG in the office. He was noted to have normal sinus rhythm. He had no acute ECG changes. Interval History: 01/17/2025 History of Present Illness The patient, a 69-year-old male, presents for an outpatient cardiovascular follow-up visit. He has a medical history significant for coronary artery disease (CAD), status post percutaneous coronary intervention (PCI) of the left anterior descending (LAD) artery performed in 2008 at the [facility] ([facility]), and hyperlipidemia. He notes that he has been having symptoms of chest discomfort radiating to his neck and to his jaw area. He states this is similar to the symptoms he had prior to 2008 when he had his PCI performed at [facility]. He states the jaw discomfort has been what is been most concerning to him. He notes that he can feel somewhat short of breath with these events and with activity. He has not had orthopnea or PND or peripheral pitting edema. He states there has been times when he is felt somewhat lightheaded but he has had no loss of consciousness episode/syncope. He does have nitroglycerin tablets however he states he has not use them. He has been hoping that his symptoms were related to gastroesophageal reflux disorder. He did have an ECG in the office. He was noted to be in normal sinus rhythm. He had no acute ECG changes. He did have a left axis deviation. He states he just had laboratory work done through his PCP office. Based upon the information he has received this included a CMP, a lipid profile, and a PSA. He believes there may have been other labs performed as well. These labs have not yet been received for review. His other cardiovascular studies available for review are noted below. They have been discussed with him. Interval History: 02/10/25 History of Present Illness The patient is a 69-year-old male presenting for an outpatient cardiovascular follow-up. He has a history of coronary artery disease (CAD) status post percutaneous coronary intervention (PCI) and hyperlipidemia. Recently, he underwent a repeat diagnostic cardiac catheterization, which revealed progressive multivessel coronary artery disease. Consequently, coronary artery bypass grafting (CABG) has been recommended. At the present time he states that he has still been somewhat active at home. However he notes that with activity he does start to get tired and fatigued much easier. He has not noted any acute chest discomfort. There has been no orthopnea or PND or peripheral pitting edema. He has had no near-syncope or syncope. He states that since initiating statin therapy he has had significant joint discomfort. He states he feels like he has difficulty moving his joints. He has undergone evaluation with cardiac catheterization. He did have multivessel disease involving both the right coronary artery, the LAD system, and the LCX system. He was recommended for CABG. He has a pre CABG transthoracic echocardiogram scheduled for this afternoon. He has an appointment scheduled for Dr. Garcia on 02/22/2025 for his CABG evaluation. Interval History: 04/14/[address] Arias, patient underwent CABGx3 (ARORA-LAD, SVG-OM, SVG-PDA), LAAL with Dr. Bony Garcia on 03/10/25. His postoperative course was uncomplicated and he was discharged on 03/15/25. He was seen in the local ER for poor perfusion to lower extremities (bottoms of feet were purple), duplexes were WNL, but he was prescribed 10 days of Keflex for his mildly erythematous SVG sites which he completed. He was also admitted 04/02 to 04/05 due to concerns for chest pain after smoking his first cigarette after surgery. Troponin was elevated at local ER, so he was transferred to [facility]. EKG showed new T wave inversion in aVL & V2. He had a LHC on 04/02 revealing open grafts and ARORA-LAD tapering c/w completive flow. A TTE was also completed revealing EF 50-55% and WMA. MRI was unrevealing. He was hypotensive with Imdur. Since starting Plavix, he's been achy. Pain began in his back, moved around to sides/kidneys and into legs. He's also been really sleepy. He had similar aching when he took Plavix in the past. He's not had any issues with ASA 81mg or 325mg daily. He cannot recall taking any other antiplatelet therapy. He felt a little "strange" on the three days he took isosorbide prior to CABG. He was lightheaded in the hospital when he was taking isosorbide during the second admission. BP has been pretty good. He started cardiac rehab yesterday. He's feeling pretty good. No chest pain. He's a little SOB, but just feels like everything is a lot to do as he's just sore and fatigued. feels like he's sleeping ok, but seems to sleep a lot. He has an upcoming appointment with pulmonology. He doesn't feel depressed, but doesn't like the way he feels due to soreness and fatigue. He's taking atorvastatin 10mg daily along with Zetia. He was unable to tolerate 20mg due to myalgias. He has not smoked since his second admission. Interval History: 05/10/2025 Mr. Landrum is a 70-year-old male who presents today for an outpatient cardiovascular follow-up with a history of CAD, remote LAD PCI, status post CABG, and hyperlipidemia. He states he overall he is feeling better. His only chest discomfort is residual discomfort from his sternotomy. He states that he has used his upper extremities moving some dirt with a shovel and does note some residual musculoskeletal type discomfort. He states that his right lower extremity incision appears to be healing now. He has had no other symptoms of classic angina pectoris at the moment. He has had no issues of overt CHF or pulmonary edema. There has been no near-syncope or syncope. He states that since changing from clopidogrel to Effient/prasugrel he feels much better. He appears to be tolerating it well. He continues in cardiac rehab at his local hospital. Thus far there has been no obvious report of any concerns during his cardiac rehab sessions. He also notes that he has refrain from any cigarette smoking/tobacco use since his last event that led him to repeat hospitalization that led to repeat diagnostic cardiac catheterization that demonstrated his ARORA to LAD to be distally somewhat atretic. He continued medical therapy after that did not require any other form of intervention. Historical information was reviewed in the medical record. The following historical elements were reviewed by a provider in the specific [facility] and updated as appropriate: Allergies[1] Encounter Medications[2] Past Medical History[3] Past Surgical History[4] Family History Problem Relation Age of Onset Uterine Cancer Mother Heart Disease - Other Mother Heart Disease - Other Father Heart Failure Father Heart Disease - Other Maternal Uncle Myocardial Infarction Maternal Uncle Heart Disease - Other Maternal Grandfather Myocardial Infarction Maternal Grandfather Heart Disease - Other Paternal Grandfather Myocardial Infarction Paternal Grandfather Social History Socioeconomic History Marital status: Single Spouse name: Not on file Number of children: Not on file Years of education: Not on file Highest education level: Not on file Occupational History Not on file Tobacco Use Smoking status: Some Days Current packs/day: 0.50 Average packs/day: 1 pack/day for 48.4 years (47.5 ttl pk-yrs) Types: Cigarettes Start date: 09/08/1974 Last attempt to quit: 04/30/2021 Smokeless tobacco: Never Tobacco comments: Not a heavy smoker and have quit several times in last 10 years Vaping Use Vaping status: Former Substance and Sexual Activity Alcohol use: Not Currently Comment: Less than once a week Drug use: Never Sexual activity: Yes Partners: Female control/protection: Female Sterilization Comment: My had a hysterictomy in 2018 Other Topics Concern Occupational Exposure No Hobby Hazards No Social History Narrative Not on file Social Drivers of Health Financial Resource Strain: Not on file Food Insecurity: No Food Insecurity (04/03/2025) NCSS - Food Insecurity Worried About Running Out of Food in the Last Year: No Ran Out of Food in the Last Year: No Transportation Needs: No Transportation Needs (04/03/2025) NCSS - Transportation Lack of Transportation: No Physical Activity: Not on file Stress: Not on file Social Connections: Not on file Personal Safety: Not At Risk (04/03/2025) NCSS - Interpersonal Safety Feels Physically and Emotionally Safe: Yes Physically Hurt by Someone: No Humiliated or Emotionally Abused by Someone: No Housing Stability: Not At Risk (04/03/2025) NCSS - Housing/Utilities Has Housing: Yes Worried About Losing Housing: No Unable to Get Utilities: No Review of Systems Cardiovascular: Positive for chest pain. Negative for claudication, cyanosis, dyspnea on exertion, irregular heartbeat, leg swelling, near-syncope, orthopnea, palpitations and paroxysmal nocturnal dyspnea. On physcial exam today, the vital signs are as follows: Vitals: 05/10/25 1136 BP: 120/74 Pulse: 76 Weight: 99.3 kg (218 lb 14.4 oz) Height: 1.778 m (5' 10") Body mass index is 31.41 kg/m . Physical Exam Vitals and nursing note reviewed. Constitutional: Appearance: Normal appearance. He is well-developed, well-groomed and overweight. HENT: Head: Normocephalic and atraumatic. Cardiovascular: Rate and Rhythm: Normal rate and regular rhythm. No extrasystoles are present. Chest Wall: PMI is not displaced. No thrill. Pulses: Carotid pulses are 2+ on the right side and 2+ on the left side. Radial pulses are 2+ on the right side and 2+ on the left side. Posterior tibial pulses are 2+ on the right side and 2+ on the left side. Heart sounds: S1 normal and S2 normal. No murmur heard. No friction rub. No gallop. Pulmonary: Effort: Pulmonary effort is normal. Breath sounds: Normal breath sounds. Chest: Comments: Median Sternotomy: well healed Abdominal: General: Abdomen is flat. Bowel sounds are normal. Palpations: Abdomen is soft. Musculoskeletal: General: Normal range of motion. Cervical back: Normal range of motion. Right lower leg: No edema. Left lower leg: No edema. Skin: General: Skin is warm and dry. Neurological: General: No focal deficit present. Mental Status: He is alert. Psychiatric: Mood and Affect: Mood normal. Relevant diagnostic data includes the following: Lab Results Component Value Date CHOLESTEROL 213 (H) 03/08/2025 TRIG 392 (H) 03/08/2025 HDL 37 (L) 03/08/2025 LDLCALC 98 03/08/2025 NHCHOL 176 (H) 03/08/2025 Lab Results Component Value Date WBC 11.02 (H) 04/05/2025 HGB 12.2 (L) 04/05/2025 HCT 37.3 (L) 04/05/2025 PLATELET 222 04/05/2025 MCV 91.9 04/05/2025 Lab Results Component Value Date SODIUM 139 04/05/2025 POTASSIUM 4.0 04/05/2025 CHLORIDE 106 04/05/2025 CO2 22 04/05/2025 BUN 11 04/05/2025 CREATSERUM 1.01 04/05/2025 GLUCOSE 103 04/05/2025 Lab Results Component Value Date TSH 1.584 03/08/2025 Lab Results Component Value Date HGBA1C 5.2 03/11/2025 I have independently reviewed the following images/tracings: as noted below. Supplemental Information: [facility]ROCARDIO[facility] 08[facility]2022 [facility] 07[facility] 04/[facility]25 [facility] ECHOCARD[facility]GRAM 05[facility]24/2009 [facility] CONCLUSIONS S/p NSTEMI and Stent to LAD. Technically Difficult and Limited Study. 1. Grossly normal LV and RV systolic function. 2. Valves and aorta not well seen. 3. Trivial pericardial effusion. ECHOCARDIOGRAM 09/03/2023 (Final) Interpretation Summary Technically difficult study, endocardium not well seen Normal left ventricular size and low normal systolic function. LVEF of 50-55%. Proximal anteroseptum appears hypekinetic. Normal diastolic function Normal right ventricular size and systolic function No significant valvular abnormalities RVSP of 23 mmHg ECHOCARDIOGRAM LIMITED/FOLLOWUP 04/02/2025 (Final) Interpretation Summary NSTEMI, limited oracle bpm consultant echo by fellow, CHITO reviewed 04/04/25. Mild segmental LV dysfunction, basal septal akinesis, lateral hypokinesis, EF ~45%. Grossly normal RV. Valves not assessed in data. MYOCARDIAL PERFUSION STUDY 09/03/2023 [facility] Lexiscan Stress myocardial perfusion scan within normal limits. No evidence of ischemia. No evidence of prior myocardial injury. Normal left ventricular systolic function ( 58% ). CARDIAC MRI 04/04/2025 [facility] Mild systolic dysfunction with regional wall motion abnormalities and predominantly ischemic fibrosis. CRITICAL RESULT: No SUMMARY 69 yo M with HTN, HLD, multivessel CAD s/p PCI LAD & CABG (ARORA-LAD, SVG-RCA, SVG-OM), HFmrEF/ICM, admitted with NSTEMI; CMR for further assessment; CARDIAC MRI LEFT VENTRICLE: Normal left ventricular size with normal wall thickness. Mild systolic dysfunction with thinning and focal akinesis of the mid anteroseptal wall - partially extending into the mid inferoseptal wall - as well as focal akinesis of the mid inferior wall. Quantitative LVEF 48 %. LGE: Late gadolinium enhancement imaging demonstrates subendocardial infarct scar in the basal anteroseptal wall involving approximately 25% of wall thickness, near transmural infarct scar in the mid septal wall as well as focal near transmural infarct scar in the mid inferior wall. There is also mild patchy midmyocardial nonischemic fibrosis in the basal septal/inferior/inferolateral adams as well as superior/inferior RV insertion point fibrosis. MYOCARDIUM: Normal moapa T1 values with no evidence of diffuse interstitial expansion (ECV 25%, normal <31%). No evidence of myocardial edema/inflammation on T2 mapping. RIGHT VENTRICLE: Normal right ventricular size with normal systolic function. Quantitative RVEF 56 %. LA/RA SEPTUM: Fatty infiltration. LEFT ATRIUM: LA cavity size is normal. RIGHT ATRIUM: RA cavity size is upper limits of normal. PERICARDIUM: Epicardial fat pad with trivial circumferential pericardial effusion. AORTIC VALVE: Peak aortic velocity 1.2 m/s. Trivial aortic regurgitation. Assessment by phase contrast imaging: regurgitant volume 6 ml, regurgitant fraction 8%. MITRAL VALVE: Trivial mitral regurgitation. TRICUSPID VALVE: Trivial tricuspid regurgitation. PULMONIC VALVE: Peak aortic velocity 0.8 m/s. Trivial regurgitation. Assessment by phase contrast imaging: regurgitant volume 4 ml, regurgitant fraction 4%. STUDY QUALITY: Study quality is good. OTHER FINDINGS: Evidence of prior median sternotomy. Mild parenchymal pulmonary changes not further characterized on this cardiac oriented exam. CARDIAC CATHETERIZATION / PCI 05/23/2009 [facility] Left Main Angiographically free of disease. LAD A 80% stenosis was seen in a large Proximal LAD. It was characterized as a class C (Complex) lesion. Circumflex Stenosis of greater than or equal to 50% noted for this vessel. RCA Stenosis of greater than or equal to 50% noted for this vessel. Bypass Grafts None Other Pertinent Medical Problems: None Current Medications: ASA (mg), Heparin (units), Nitroglycerin (mcg), Plavix (mg), Statin PROCEDURE Site: Proximal LAD Artery Size: 3.56 ACC/AHA: C *lesion length > 20mm Primary Treatment: Intended - Balloon Angioplasty 12-austin Result: 80% to 60% stenosis, MURIEL 3 Complications: None Final Result: Successful Final Complications: None Site: Proximal LAD Artery Size: 3.56 ACC/AHA: C *lesion length > 20mm Primary Treatment: Intended - Drug Eluting Stent 18-austin Result: 60% to 10% stenosis, MURIEL 3 Complications: None Final Result: Successful Final Complications: None Site: Proximal LAD Artery Size: 3.56 ACC/AHA: C *lesion length > 20mm Primary Treatment: Intended - Drug Eluting Stent 16-asutin Result: 60% to 10% stenosis, MURIEL 3 Complications: None Final Result: Successful Final Complications: None Site: Proximal LAD Artery Size: 3.56 ACC/AHA: C *lesion length > 20mm Primary Treatment: Intended - Balloon Angioplasty 20-austin Result: 10% to 0% stenosis, MURIEL 3 Complications: None Final Result: Successful Final Complications: None 02/03/2025 [facility] Diagnostics: - right dominant system -RCA : mRCA up to 80% stenosis -LAD: at previously placed proximal LAD stent there is up to 80%-90% ISR -LCx: proximal LCx just after OM1 there is up to 80% focal stenosis. 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 Recommendations: CTS Referral placed for expedited eval for CABG 04/02/2025 [facility] Impression Obstructive moapa coronary artery disease Patent coronary bypass grafts Recommendations: Continue aggressive risk factor modification and medical management for CAD. Consider medical management of NSTEMI, 48 hours of heparin (can start 4 hours after hemostasis of femoral access site) and DAPT for at least 6-12 months Access: R femoral access, sheath left in for removal when ACT is below 160 L radial artery, TR band used for hemostasis Coronary angiography: The left main is angiographically normal. The left anterior descending (LAD) is a large vessel with 90% ISR of previously placed proximal LAD stent The left circumflex (LCx) has proximal 80% stenosis distal to the first obtuse marginal branch The right coronary artery is dominant with mid 80% stenosis Coronary bypass angiography ARORA-LAD graft is widely patent. There is some tapering near the distal anastomosis that is favored to represent competitive flow rather than obstructive stenosis. Required use of L radial artery access in order to engage SVG-RCA is widely patent SVG-OM is widely patent In summary, Mr. Landrum is managed today for the following issues: 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 At the present time he will continue his current medical management. He will continue with outpatient cardiac rehabilitation therapy. He will need future outpatient follow-up to monitor his condition. H/O heart artery stent He has a history of remote LAD PCI. He has now status post CABG. He has undergone post CABG diagnostic cardiac catheterization. His ARORA to the LAD was distally somewhat atretic. The LAD was patent. He did not require additional revascularization therapy. S/P CABG x 3 At the present time he is continuing medical management. He is continuing outpatient cardiac rehabilitation. He will need to continue with future outpatient follow-up. Hyperlipidemia He will be having lipid labs performed. If his lipid labs do not improve and based upon his intolerance to advancing his statin dose, etc., then as he has also been on ezetimibe/Zetia, he will need to be considered for alteration medical management. This would be with a PCSK9 inhibitor. This was discussed and reviewed with him during his office visit. 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 His lipid lab history we will be reviewed with him. Alteration in his medical management as discussed. He was agreeable to this approach. We will plan on Return in about 6 months (around 11/07/2025).. If I can be of any further assistance, please do not hesitate to contact me. Sincerely, Luis Antonio Arias MD, [facility] [employer] - Clinical Division of Cardiovascular Medicine Department of Internal Medicine [facility] Please be aware that portions of this note may have been completed with a voice recognition software system and an artificial intelligence system with the knowledge and approval of the patient. Despite efforts to edit the note mis-transcribed words may still be present. [1] Allergies Allergen Reactions Penicillins Itching Itching Rosuvastatin Numbness Other reaction(s): Other Simvastatin Other reaction(s): Myalgias, Other Ciprofloxacin Numbness Bactrim [Sulfamethoxazole-Trimethoprim] Hives and Swelling Meloxicam Hives It is tolerable if he uses benadryl. Plavix [Clopidogrel] Drowsy/Sedated Feels very sore Varenicline Other reaction(s): Mental Status Change Depression [2] Outpatient Encounter Medications as of 05/10/2025 Medication Sig Dispense Refill Acetaminophen 325 MG tablet Take 2 tablets by mouth every 6 hours as needed for Moderate Pain or Mild Pain. aspirin 81 MG Chew Tab chewable tablet Chew 1 tablet daily. 30 tablet 3 Atorvastatin 20 MG tablet Take 1 tablet by mouth daily. 90 tablet 3 Ezetimibe 10 MG tablet Take 1 tablet by mouth daily. 90 tablet 3 Metoprolol succinate (Toprol XL) 25 MG tablet XL Take 1 tablet by mouth daily. 90 tablet 3 Multiple Vitamins-Minerals (Multivitamin Gummies Adult) Chew Tab Chew 1 tablet daily. nitroGLYCERIN 0.[address] 1 tablet under tongue every 5 minutes as needed for Chest pain. max = 3 doses. If CP persists after 1st dose, call 911 pantopraz[address] tablet DR Take 1 tablet by mouth daily. Prasugrel HCl (Effient) 10 MG tablet Take 1 tablet by mouth daily. 90 tablet 3 No facility-administered encounter medications on file as of 05/10/2025. [3] Past Medical History: Diagnosis Date Arthritis CAD (coronary artery disease) Cardiac angina Congestive heart failure Diverticulitis GERD (gastroesophageal reflux disease) Hyperlipidemia VT (myocardial infarction) [4] Past Surgical History: Procedure Laterality Date CABG W/ ARTERY GRAFT OPEN Midline 03/10/2025 Laterality: Midline; Surgeon: Bony Garcia MD, PhD; [facility] ARTHROPLASTY SHOULDER TOTAL Left 08/14/2022 Laterality: Left; Surgeon: Robin Mcguire MD; Location[facility] TENODESIS BICEPS LONG TENDON Left 08/14/2022 Laterality: Left; Surgeon: Robin Mcguire MD; Location: [facility] OR ARTHROPLASTY HIP TOTAL ANTERIOR APPROACH Right 07/02/2021 Laterality: Right; Surgeon: Amarjit Marroquin MD; Location: [facility] OR ASPIRATION OR INJECTION LARGE JOINT BURSA Left 07/02/2021 Laterality: Left; Surgeon: Amarjit Marroquin MD; Location: [facility] OR CORONARY STENT PLACEMENT 2008 MENISCECTOMY Left SHOULDER ARTHROSCOPY Right Patient has verified full name and . DEANN documentation tool explained to patient. Patient accepted the use of DEANN documentation tool during today's visit. Meir Landrum was offered and declined a Medical Patient Care Representative for this exam/procedure/test 05/10/2025. documented in this encounter [facility] 05-04-2025 History of Presen t illness Narrative Patient verified full name and We had the pleasure of seeing Mr. Meir Landrum in our pulmonary clinic today as a new patient with abnormal chest CT scan. He also had CABG X# on March 10. He also has GO and tries Bipap about 25 years ago and could not tolerate it. 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 He does not have any respiratory symptoms. Associated symptoms include cough, currently daily sputum production and wheezing. Mr. Meir Landrum states that he is currently exercising in cardiac rehab. Mr. Meir Landrum is currently not taking any respiratory medications. He has had no exacerbations within the last year. He has a cold right now and is being treated with OTC medications. He is a former smoker; smoked about a pack a day x 50 years. He quit before his CABG and has had one cigarette since then. Current Outpatient Medications Medication Sig Acetaminophen 325 MG tablet Take 2 tablets by mouth every 6 hours as needed for Moderate Pain or Mild Pain. aspirin 81 MG Chew Tab chewable tablet Chew 1 tablet daily. Atorvastatin 20 MG tablet Take 1 tablet by mouth daily. Ezetimibe 10 MG tablet Take 1 tablet by mouth daily. Metoprolol succinate (Toprol XL) 25 MG tablet XL Take 1 tablet by mouth daily. Multiple Vitamins-Minerals (Multivitamin Gummies Adult) Chew Tab Chew 1 tablet daily. nitroGLYCERIN 0.[address] 1 tablet under tongue every 5 minutes as needed for Chest pain. max = 3 doses. If CP persists after 1st dose, call 911 pantoprazole [address] tablet DR Take 1 tablet by mouth daily. Prasugrel HCl (Effient) 10 MG tablet Take 1 tablet by mouth daily. He does get his flu, RSV and Pneumonia vaccines. Vital signs Blood pressure 134/84, pulse 68, temperature 97.4 F (36.3 C), temperature source Infrared, height 1.778 m (5' 10"), weight 98.4 kg (217 lb), SpO2 98% on RA. In general, he is in no acute respiratory distress. Images from the original note were not included. We had the pleasure of seeing Mr. Meir Landrum in our pulmonary clinic today as a new patient with abnormal chest CT scan. He also had CABG X 3 on March 10. He also has GO and tries Bipap about 25 years ago and could not tolerate it. 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 He does not have any significant respiratory symptoms chronically. He has been having an acute productive cough recently. He does have hypersomnia Mr. Meir Landrum states that he is currently exercising in cardiac rehab. Mr. Meir Landrum is currently not taking any respiratory medications. He has had no exacerbations within the last year. He has a cold right now and is being treated with OTC medications. He is a former smoker; smoked about a pack a day x 50 years. He quit before his CABG and has had one cigarette since then. Current Outpatient Medications Medication Sig Acetaminophen 325 MG tablet Take 2 tablets by mouth every 6 hours as needed for Moderate Pain or Mild Pain. aspirin 81 MG Chew Tab chewable tablet Chew 1 tablet daily. Ezetimibe 10 MG tablet Take 1 tablet by mouth daily. Metoprolol succinate (Toprol XL) 25 MG tablet XL Take 1 tablet by mouth daily. Multiple Vitamins-Minerals (Multivitamin Gummies Adult) Chew Tab Chew 1 tablet daily. nitroGLYCERIN 0.[address] 1 tablet under tongue every 5 minutes as needed for Chest pain. max = 3 doses. If CP persists after 1st dose, call 911 pantoprazole [address] tablet DR Take 1 tablet by mouth daily. Prasugrel HCl (Effient) 10 MG tablet Take 1 tablet by mouth daily. Atorvastatin 10 MG tablet Take 1 tablet by mouth daily. He does get his flu, RSV and Pneumonia vaccines. has a past medical history of Arthritis, CAD (coronary artery disease), Cardiac angina, Congestive heart failure, Diverticulitis, GERD (gastroesophageal reflux disease), Hyperlipidemia, and VT (myocardial infarction). reports that he has been smoking cigarettes. He started smoking about 50 years ago. He has a 47.5 pack-year smoking history. He has never used smokeless tobacco. He reports that he does not currently use alcohol. He reports that he does not use drugs. is allergic to penicillins, rosuvastatin, simvastatin, ciprofloxacin, bactrim [sulfamethoxazole-trimethoprim], meloxicam, plavix [clopidogrel], and varenicline. Past Surgical History[1] Vital signs Blood pressure 134/84, pulse 68, temperature 97.4 F (36.3 C), temperature source Infrared, height 1.778 m (5' 10"), weight 98.4 kg (217 lb), SpO2 98% on RA. PE: Blood pressure 134/84, pulse 68, temperature 97.4 F (36.3 C), temperature source Infrared, height 1.778 m (5' 10"), weight 98.4 kg (217 lb), SpO2 98%. RA In general: no acute respiratory distress. Well developed; well nourished. HEENT: Eyes: EOMI, pupils were equal, and round with no scleral icterus. ENT: trachea midline. Cardiovascular: no GR or thrill. Respiratory: Chest is symmetric. Lungs showed decreased breath sounds bilaterally; respirations were not labored. GI: Abdomen - obese. Musculoskeletal: no cyanosis or clubbing; normal tone; no abnormal muscle movements. Neuro: nonfocal Psych: awake and alert. IMPRESSION: Chest CT 03/04/25 1. Patient is a former smoker, upper lung findings of subpleural cysts and very mild groundglass and thin reticular markings may represent peripheral paraseptal subtype emphysema. The possibility of interstitial lung disease such as lymphocytic interstitial pneumonia (LIP) is also a consideration. Consider presentation at multidisciplinary chest conference and consultation with lung specialist regarding the need for additional management Assessment: Abnormal chest CT - consider component of emphysema with ILD. Patient is asymptomatic. Consider RB-ILD CAD with recent CABG Long history of tobacco abuse - now abstinent Acute productive cough - consider early exacerbation Plan: Strongly encouraged continued smoking abstinence Check PFTs and six minute walk Repeat chest CT Zpak - if productive cough worsens Sleep study Follow up in 6 months [1] Past Surgical History: Procedure Laterality Date CABG W/ ARTERY GRAFT OPEN Midline 03/10/2025 Laterality: Midline; Surgeon: Bony Garcia MD, PhD; Location[facility] ARTHROPLASTY SHOULDER TOTAL Left 08/14/2022 Laterality: Left; Surgeon: Robin Mcguire MD; Location: [facility] OR TENODESIS BICEPS LONG TENDON Left 08/14/2022 Laterality: Left; Surgeon: Robin Mcguire MD; Location: [facility] OR ARTHROPLASTY HIP TOTAL ANTERIOR APPROACH Right 07/02/2021 Laterality: Right; Surgeon: Amarjit Marroquin MD; Location: [facility] OR ASPIRATION OR INJECTION LARGE JOINT BURSA Left 07/02/2021 Laterality: Left; Surgeon: Amarjit Marroquin MD; Location: [facility] OR CORONARY STENT PLACEMENT 2009 MENISCECTOMY Left SHOULDER ARTHROSCOPY Right documented in this encounter [facility] 05-04-2025 Instructions Armani Rae MD - 05/04/2025 10:40 AM EDT We are setting up a sleep study We are setting up PFTs and a chest CT in 6 months with next visit Congratulations on quitting smoking! (Stay off the cigarettes) A Zpak antibiotic has been sent in case you need documented in this encounter [facility] 04-14-2025 History of Presen t illness Narrative Images from the original note were not included. Primary care provider: Pratibha Ronquilol DO (General) Meir Landrum was seen at the [facility] on 04/14/2025 in follow-up. I have reviewed pertinent outside medical records available at this time regarding this patient. Mr. Landrum is a 69 y.o. male is managed by our group for concerns of coronary artery disease status post remote LAD PCI, hyperlipidemia, with recent cardiac catheterization demonstrating multivessel coronary artery disease with a recommendation for CABG. He was last seen by Dr. Arias on 02/10/25. Chief Complaint Patient presents with Follow-up Concerns with Plavix, causing extreme aching. Has been on it previously in 2008 and was taken off of it for this reason. Was not sure if there was another option for blood thinner. Since increasing the Metoprolol has been extremely fatigued. Also is unsure why it was increased. HPI: Initial HPI from: 07/21/2023 This is a 68-year-old white male who presents for a new outpatient cardiovascular visit with a history of underlying CAD status post PCI-LAD at [facility] (2008), hyperlipidemia, for concerns of chest discomfort concerning for angina pectoris. He has previously been followed through the [facility] in [place], [place]. He has requested transferring his care to [facility] Cardiovascular Medicine. He states he has been doing well until a short time ago. He developed concerns of centralized chest pressure. He states it was somewhat random. It did not necessarily radiate out of his chest. He can have associated dyspnea on exertion. There was no obvious orthopnea, PND, or worsening peripheral pitting edema. He has had no near-syncope or syncope. He states following his chest pressure events he then developed an respiratory tract related issue. He tested negative for COVID-19. He was evaluated by his PCP. He was placed on antibiotic therapy. He states he feels somewhat better but still feels he has drainage from his upper respiratory tract. He is status post a previous hip surgery. He states he has been dealing with plantar fasciitis. He has been evaluated by other physicians and has changed shoes, insoles, and had various injections performed. He knows he has had his lipid labs performed in the past. He does not believe he is undergone any recent cardiovascular diagnostic studies. Some of his previous studies are noted below. They have included an ECG, and echocardiogram, and his cardiac catheterization/PCI procedure. Again, this was performed at [facility] and included PCI to the LAD distribution. He had an ECG in the office. He was noted to have normal sinus rhythm. He had no acute ECG changes. Interval History: 01/17/2025 History of Present Illness The patient, a 69-year-old male, presents for an outpatient cardiovascular follow-up visit. He has a medical history significant for coronary artery disease (CAD), status post percutaneous coronary intervention (PCI) of the left anterior descending (LAD) artery performed in 2008 at the [facility] ([facility]), and hyperlipidemia. He notes that he has been having symptoms of chest discomfort radiating to his neck and to his jaw area. He states this is similar to the symptoms he had prior to 2008 when he had his PCI performed at [facility]. He states the jaw discomfort has been what is been most concerning to him. He notes that he can feel somewhat short of breath with these events and with activity. He has not had orthopnea or PND or peripheral pitting edema. He states there has been times when he is felt somewhat lightheaded but he has had no loss of consciousness episode/syncope. He does have nitroglycerin tablets however he states he has not use them. He has been hoping that his symptoms were related to gastroesophageal reflux disorder. He did have an ECG in the office. He was noted to be in normal sinus rhythm. He had no acute ECG changes. He did have a left axis deviation. He states he just had laboratory work done through his PCP office. Based upon the information he has received this included a CMP, a lipid profile, and a PSA. He believes there may have been other labs performed as well. These labs have not yet been received for review. His other cardiovascular studies available for review are noted below. They have been discussed with him. Interval History: 02/10/25 History of Present Illness The patient is a 69-year-old male presenting for an outpatient cardiovascular follow-up. He has a history of coronary artery disease (CAD) status post percutaneous coronary intervention (PCI) and hyperlipidemia. Recently, he underwent a repeat diagnostic cardiac catheterization, which revealed progressive multivessel coronary artery disease. Consequently, coronary artery bypass grafting (CABG) has been recommended. At the present time he states that he has still been somewhat active at home. However he notes that with activity he does start to get tired and fatigued much easier. He has not noted any acute chest discomfort. There has been no orthopnea or PND or peripheral pitting edema. He has had no near-syncope or syncope. He states that since initiating statin therapy he has had significant joint discomfort. He states he feels like he has difficulty moving his joints. He has undergone evaluation with cardiac catheterization. He did have multivessel disease involving both the right coronary artery, the LAD system, and the LCX system. He was recommended for CABG. He has a pre CABG transthoracic echocardiogram scheduled for this afternoon. He has an appointment scheduled for Dr. Garcia on 02/22/2025 for his CABG evaluation. Interval History: 04/14/[address] Arias, patient underwent CABGx3 (ARORA-LAD, SVG-OM, SVG-PDA), LAAL with Dr. Bony Garcia on 03/10/25. His postoperative course was uncomplicated and he was discharged on 03/15/25. He was seen in the local ER for poor perfusion to lower extremities (bottoms of feet were purple), duplexes were WNL, but he was prescribed 10 days of Keflex for his mildly erythematous SVG sites which he completed. He was also admitted 04/02 to 04/05 due to concerns for chest pain after smoking his first cigarette after surgery. Troponin was elevated at local ER, so he was transferred to [facility]. EKG showed new T wave inversion in aVL & V2. He had a LHC on 04/02 revealing open grafts and ARORA-LAD tapering c/w completive flow. A TTE was also completed revealing EF 50-55% and WMA. MRI was unrevealing. He was hypotensive with Imdur. Since starting Plavix, he's been achy. Pain began in his back, moved around to sides/kidneys and into legs. He's also been really sleepy. He had similar aching when he took Plavix in the past. He's not had any issues with ASA 81mg or 325mg daily. He cannot recall taking any other antiplatelet therapy. He felt a little "strange" on the three days he took isosorbide prior to CABG. He was lightheaded in the hospital when he was taking isosorbide during the second admission. BP has been pretty good. He started cardiac rehab yesterday. He's feeling pretty good. No chest pain. He's a little SOB, but just feels like everything is a lot to do as he's just sore and fatigued. feels like he's sleeping ok, but seems to sleep a lot. He has an upcoming appointment with pulmonology. He doesn't feel depressed, but doesn't like the way he feels due to soreness and fatigue. He's taking atorvastatin 10mg daily along with Zetia. He was unable to tolerate 20mg due to myalgias. He has not smoked since his second admission. Historical information was reviewed in the medical record. The following historical elements were reviewed by a provider in the specific [facility] and updated as appropriate: Allergies Allergen Reactions Penicillins Itching Itching Rosuvastatin Numbness Other reaction(s): Other Simvastatin Other reaction(s): Myalgias, Other Ciprofloxacin Numbness Bactrim [Sulfamethoxazole-Trimethoprim] Hives and Swelling Meloxicam Hives It is tolerable if he uses benadryl. Varenicline Other reaction(s): Mental Status Change Depression Outpatient Encounter Medications as of 04/14/2025 Medication Sig Dispense Refill Acetaminophen 325 MG tablet Take 2 tablets by mouth every 6 hours as needed for Moderate Pain or Mild Pain. aspirin 81 MG Chew Tab chewable tablet Chew 1 tablet daily. 30 tablet 3 Atorvastatin 20 MG tablet Take 1 tablet by mouth daily. 90 tablet 3 Clopidogrel 75 MG tablet Take 1 tablet by mouth daily. 30 tablet 5 Ezetimibe 10 MG tablet Take 1 tablet by mouth daily. 90 tablet 3 Metoprolol 25 MG tab regular release Take 1 tablet by mouth 2 times daily. 60 tablet 2 Multiple Vitamins-Minerals (Multivitamin Gummies Adult) Chew Tab Chew 1 tablet daily. nitroGLYCERIN 0.[address] 1 tablet under tongue every 5 minutes as needed for Chest pain. max = 3 doses. If CP persists after 1st dose, call 911 pantopraz[address] tablet DR Take 1 tablet by mouth daily. No facility-administered encounter medications on file as of 04/14/2025. Past Medical History: Diagnosis Date Arthritis CAD (coronary artery disease) Cardiac angina Congestive heart failure Diverticulitis GERD (gastroesophageal reflux disease) Hyperlipidemia VT (myocardial infarction) Past Surgical History: Procedure Laterality Date CABG W/ ARTERY GRAFT OPEN Midline 03/10/2025 Laterality: Midline; Surgeon: Bony Garcia MD, PhD; Location: [facility] MAIN OR ARTHROPLASTY SHOULDER TOTAL Left 08/14/2022 Laterality: Left; Surgeon: Robin Mcguire MD; Location: [facility] MA[facility] OR TENODESIS BICEPS LONG TENDON Left 08/14/2022 Laterality: Left; Surgeon: Robin Mcguire MD; Location: [facility] MA[facility] OR ARTHROPLASTY HIP TOTAL ANTERIOR APPROACH Right 07/02/2021 Laterality: Right; Surgeon: Amarjit Marroquin MD; Location: [facility] MA[facility] OR ASPIRATION OR INJECTION LARGE JOINT BURSA Left 07/02/2021 Laterality: Left; Surgeon: Amarjit Marroquin MD; Location: [facility] MAIN OR CORONARY STENT PLACEMENT 2009 MENISCECTOMY Left SHOULDER ARTHROSCOPY Right Family History Problem Relation Age of Onset Uterine Cancer Mother Heart Disease - Other Mother Heart Disease - Other Father Heart Failure Father Heart Disease - Other Maternal Uncle Myocardial Infarction Maternal Uncle Heart Disease - Other Maternal Grandfather Myocardial Infarction Maternal Grandfather Heart Disease - Other Paternal Grandfather Myocardial Infarction Paternal Grandfather Social History Socioeconomic History Marital status: Single Spouse name: Not on file Number of children: Not on file Years of education: Not on file Highest education level: Not on file Occupational History Not on file Tobacco Use Smoking status: Some Days Current packs/day: 0.50 Average packs/day: 1 pack/day for 48.3 years (47.5 ttl pk-yrs) Types: Cigarettes Start date: 09/08/1974 Last attempt to quit: 04/30/2021 Smokeless tobacco: Never Tobacco comments: Not a heavy smoker and have quit several times in last 10 years Vaping Use Vaping status: Every Day Substance and Sexual Activity Alcohol use: Not Currently Comment: Less than once a week Drug use: Never Sexual activity: Yes Partners: Female control/protection: Female Sterilization Comment: My had a hysterictomy in 2018 Other Topics Concern Occupational Exposure No Hobby Hazards No Social History Narrative Not on file Social Drivers of Health Financial Resource Strain: Not on file Food Insecurity: No Food Insecurity (04/03/2025) NCSS - Food Insecurity Worried About Running Out of Food in the Last Year: No Ran Out of Food in the Last Year: No Transportation Needs: No Transportation Needs (04/03/2025) NCSS - Transportation Lack of Transportation: No Physical Activity: Not on file Stress: Not on file Social Connections: Not on file Personal Safety: Not At Risk (04/03/2025) NCSS - Interpersonal Safety Feels Physically and Emotionally Safe: Yes Physically Hurt by Someone: No Humiliated or Emotionally Abused by Someone: No Housing Stability: Not At Risk (04/03/2025) NCSS - Housing/Utilities Has Housing: Yes Worried About Losing Housing: No Unable to Get Utilities: No Review of Systems Cardiovascular: Positive for chest pain. Negative for claudication, cyanosis, dyspnea on exertion, irregular heartbeat, leg swelling, near-syncope, orthopnea, palpitations and paroxysmal nocturnal dyspnea. On physcial exam today, the vital signs are as follows: Vitals: 04/14/25 1441 BP: 120/82 Pulse: 74 Weight: 96.2 kg (212 lb) Height: 1.778 m (5' 10") Body mass index is 30.42 kg/m . Physical Exam Vitals and nursing note reviewed. Constitutional: Appearance: Normal appearance. He is well-developed, well-groomed and overweight. HENT: Head: Normocephalic and atraumatic. Cardiovascular: Rate and Rhythm: Normal rate and regular rhythm. No extrasystoles are present. Chest Wall: PMI is not displaced. No thrill. Pulses: Carotid pulses are 2+ on the right side and 2+ on the left side. Radial pulses are 2+ on the right side and 2+ on the left side. Posterior tibial pulses are 2+ on the right side and 2+ on the left side. Heart sounds: S1 normal and S2 normal. No murmur heard. No friction rub. No gallop. Pulmonary: Effort: Pulmonary effort is normal. Breath sounds: Normal breath sounds. Abdominal: General: Abdomen is flat. Bowel sounds are normal. Palpations: Abdomen is soft. Musculoskeletal: General: Normal range of motion. Cervical back: Normal range of motion. Right lower leg: No edema. Left lower leg: No edema. Skin: General: Skin is warm and dry. Neurological: General: No focal deficit present. Mental Status: He is alert. Psychiatric: Mood and Affect: Mood normal. Relevant diagnostic data includes the following: Cardiac MRI 04/04/25 LEFT VENTRICLE: Normal left ventricular size with normal wall thickness. Mild systolic dysfunction with thinning and focal akinesis of the mid anteroseptal wall - partially extending into the mid inferoseptal wall - as well as focal akinesis of the mid inferior wall. Quantitative LVEF 48 %. LGE: Late gadolinium enhancement imaging demonstrates subendocardial infarct scar in the basal anteroseptal wall involving approximately 25% of wall thickness, near transmural infarct scar in the mid septal wall as well as focal near transmural infarct scar in the mid inferior wall. There is also mild patchy midmyocardial nonischemic fibrosis in the basal septal/inferior/inferolateral adams as well as superior/inferior RV insertion point fibrosis. MYOCARDIUM: Normal moapa T1 values with no evidence of diffuse interstitial expansion (ECV 25%, normal <31%). No evidence of myocardial edema/inflammation on T2 mapping. RIGHT VENTRICLE: Normal right ventricular size with normal systolic function. Quantitative RVEF 56 %. LA/RA SEPTUM: Fatty infiltration. LEFT ATRIUM: LA cavity size is normal. RIGHT ATRIUM: RA cavity size is upper limits of normal. PERICARDIUM: Epicardial fat pad with trivial circumferential pericardial effusion. AORTIC VALVE: Peak aortic velocity 1.2 m/s. Trivial aortic regurgitation. Assessment by phase contrast imaging: regurgitant volume 6 ml, regurgitant fraction 8%. MITRAL VALVE: Trivial mitral regurgitation. TRICUSPID VALVE: Trivial tricuspid regurgitation. PULMONIC VALVE: Peak aortic velocity 0.8 m/s. Trivial regurgitation. Assessment by phase contrast imaging: regurgitant volume 4 ml, regurgitant fraction 4%. [facility] 04/02/25 Obstructive moapa coronary artery disease Patent coronary bypass grafts Echo 04/02/25 NSTEMI, limited oracle bpm consultant echo by fellow, CHITO reviewed 04/04/25. Mild segmental LV dysfunction, basal septal akinesis, lateral hypokinesis, EF ~45%. Grossly normal RV. Valves not assessed in data. Lab Results Component Value Date WBC 11.02 (H) 04/05/2025 HGB 12.2 (L) 04/05/2025 HCT 37.3 (L) 04/05/2025 PLATELET 222 04/05/2025 MCV 91.9 04/05/2025 Lab Results Component Value Date SODIUM 139 04/05/2025 POTASSIUM 4.0 04/05/2025 CHLORIDE 106 04/05/2025 CO2 22 04/05/2025 BUN 11 04/05/2025 CREATSERUM 1.01 04/05/2025 GLUCOSE 103 04/05/2025 Lab Results Component Value Date HGBA1C 5.2 03/11/2025 Lab Results Component Value Date CHOLESTEROL 213 (H) 03/08/2025 TRIG 392 (H) 03/08/2025 HDL 37 (L) 03/08/2025 LDLCALC 98 03/08/2025 I have independently reviewed the following images/tracings: as noted below. Supplemental Information: ELECTROCARDIOGRAM 08/09/2022 [facility] 07/21/2023 [facility] 01/17/2025 [facility] ECHOCARDIOGRAM 05/24/2009 [facility] CONCLUSIONS S/p NSTEMI and Stent to LAD. Technically Difficult and Limited Study. 1. Grossly normal LV and RV systolic function. 2. Valves and aorta not well seen. 3. Trivial pericardial effusion. ECHOCARDIOGRAM 09/03/2023 (Final) Interpretation Summary Technically difficult study, endocardium not well seen Normal left ventricular size and low normal systolic function. LVEF of 50-55%. Proximal anteroseptum appears hypekinetic. Normal diastolic function Normal right ventricular size and systolic function No significant valvular abnormalities RVSP of 23 mmHg MYOCARDIAL PERFUSION STUDY 09/03/2023 [facility] Lexiscan Stress myocardial perfusion scan within normal limits. No evidence of ischemia. No evidence of prior myocardial injury. Normal left ventricular systolic function ( 58% ). CARDIAC CATHETERIZATION / PCI 05/23/2009 [facility] Left Main Angiographically free of disease. LAD A 80% stenosis was seen in a large Proximal LAD. It was characterized as a class C (Complex) lesion. Circumflex Stenosis of greater than or equal to 50% noted for this vessel. RCA Stenosis of greater than or equal to 50% noted for this vessel. Bypass Grafts None Other Pertinent Medical Problems: None Current Medications: ASA (mg), Heparin (units), Nitroglycerin (mcg), Plavix (mg), Statin PROCEDURE Site: Proximal LAD Artery Size: 3.56 ACC/AHA: C *lesion length > 20mm Primary Treatment: Intended - Balloon Angioplasty 12-austin Result: 80% to 60% stenosis, MURIEL 3 Complications: None Final Result: Successful Final Complications: None Site: Proximal LAD Artery Size: 3.56 ACC/AHA: C *lesion length > 20mm Primary Treatment: Intended - Drug Eluting Stent 18-austin Result: 60% to 10% stenosis, MURIEL 3 Complications: None Final Result: Successful Final Complications: None Site: Proximal LAD Artery Size: 3.56 ACC/AHA: C *lesion length > 20mm Primary Treatment: Intended - Drug Eluting Stent 16-austin Result: 60% to 10% stenosis, MURIEL 3 Complications: None Final Result: Successful Final Complications: None Site: Proximal LAD Artery Size: 3.56 ACC/AHA: C *lesion length > 20mm Primary Treatment: Intended - Balloon Angioplasty 20-austin Result: 10% to 0% stenosis, MURIEL 3 Complications: None Final Result: Successful Final Complications: None 02/03/2025 [facility]: - right dominant system -RCA : mRCA up to 80% stenosis -LAD: at previously placed proximal LAD stent there is up to 80%-90% ISR -LCx: proximal LCx just after OM1 there is up to 80% focal stenosis. 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 Recommendations: CTS Referral placed for expedited eval for CABG In summary, Mr. Landrum is managed today for the following issues: 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, s/p remote LILIANA to LAD and now CABGx3 (ARROA-LAD, SVG-OM, SVG-PDA), LAAL with Dr. Bony Garcia on 03/10/25. - He was admitted 04/02 to 04/05 with NSTEMI. LHC revealed patent graft. Echo and cardiac MRI with WMA, EF ~45%, which is decreased slightly from pre-surgery. - Replace Lopressor 25mg BID with Toprol 25mg daily due to complaints of fatigue - Consider titration of GDMT at upcoming appointment as he complains of fatigue/achiness - Previously on isosorbide, but this was trialed and stopped during recent admission due to hypotension - Continue uninterrupted DAPT with ASA and replace clopidogrem with Effient 10mg daily for 12 months post NSTEMI, then lifelong SAPT - Cardiac rehab - Complete smoking cessation encouraged (he's not smoked since discharge!). Hyperlipidemia with statin intolerance - Currently on Zetia at atorvastatin 10mg daily - Consider PSK9 at future appointment Tobacco abuse - Encouraged complete cessation He is scheduled with Dr. Arias on 05/10 and again on 09/14. He's also scheduled with CT surgery on 05/12. Patient has verified full name and . DEANN documentation tool explained to patient. Patient accepted the use of DEANN documentation tool during today's visit. Meir Landrum was offered and declined a Medical Patient Care Representative for this exam/procedure/test 04/14/2025. documented in this encounter [facility] 04-14-2025 Instructions SYLVIE Johnson - 04/14/2025 3:00 PM EDT Stop Plavix, let's try Effient instead. Replace the twice daily metoprolol (Lopressor) with the once daily Toprol. We'll consider the injectable (PSK9) for cholesterol at your next visit. documented in this encounter [facility] 04-05-2025 Miscellaneous Notes Patient discharged. Explained the AVS to the patient and answered all questions. All PIVs removed and patient taken off of tele. Patient taken to the [facility] in a wheelchair and placed in the car with family. Problem: Adult Inpatient Plan of Care Goal: Plan of Care Review Outcome: Progressing Goal: Patient-Specific Goal (Individualized) Outcome: Progressing Goal: Absence of Hospital-Acquired Illness or Injury Outcome: Progressing Goal: Optimal Comfort and Wellbeing Outcome: Progressing Goal: Readiness for Transition of Care Outcome: Progressing Problem: Fall Injury Risk Goal: Fall/Trauma/Injury Risk: Absence of Trauma/Injury/Falls Description: Patient will demonstrate the desired outcomes. Outcome: Progressing Goal: Knowledge of risk factors/behavior modification Description: Knowledge of risk factors/behavior modification for fall/injury prevention Outcome: Progressing Problem: Chest Pain Goal: Resolution of Chest Pain Symptoms Outcome: Progressing Limited study to evaluate for LVEF and RWMA. Preliminary report is below, images are available for review - please see final attending echocardiogram report in AM, which may differ from preliminary report. TRANSTHORACIC ECHOCARDIOGRAM Left ventricular chamber size is normal. LV systolic function is low normal with possible basal inferior, inferoseptal, and inferolateral and mid inferior and inferoseptal hypokinesis although wall motion is incompletely visualized on parasternal short axis view. LV ejection fraction is 50-55%. Diastolic function not assessed. Right ventricular size and systolic function are normal. Valvular disease not assessed on limited study. TR band removed. No signs of bleeding or hematoma are noticed. Pt is stable and denies any pain or discomfort Preliminary Report - Brief Cardiac Catheterization Procedure Note Meir Landrum ([id number]) Pre Procedural Diagnosis NSTEMI (non-ST elevated myocardial infarction) [I21.4] Post Procedural Diagnosis Obstructive CAD Procedure Performed Left heart catheterization, Coronary angiogram, and Bypass angiogram Access Site/Hemostasis Right femoral artery, Sheath left in Left radial, artery, TR Compression Band Findings Left Ventricular End Diastolic Pressure: Not assessed Left Ventricular Ejection Fraction: Not assessed Preliminary Results of Angiography Obstructive CAD Percutaneous Coronary Intervention No Intervention Intraprocedure Anticoagulation Heparin Post-procedure Anticoagulation If anticoagulation is indicated per primary team, may restart 4 hours after hemostasis has been achieved Estimated Blood Loss Minimal Complications None Admission Does patient need to be admitted: Currently admitted Surgeon Surgeons and Role: * Nicole Salinas MD, PhD - Primary * Joaquim Flanagan MD - Fellow Procedural Staff Sedation Nurse: Kirstin Thayer RN; Olivia Marte RN Documenter: Ifeanyi Jorge RN Full report to follow Joaquim Flanagan MD April 02, 2025 1:40 PM Cosigned by Nicole Salinas MD, PhD at 04/02/2025 10:48 PM EDT Associated attestation - Nicole Salinas MD, PhD - 04/02/2025 10:48 PM EDT I was present, scrubbed and participated in all the critical components of this case. I have reviewed and concur with the Brief Operative Note. Nicole Salinas MD, PhD, [facility] electrical accessories assembler Director, Division of Cardiovascular Medicine [facility] in Cardiology Department of Internal Medicine [facility] Problem: Adult Inpatient Plan of Care Goal: Plan of Care Review Outcome: Progressing Goal: Patient-Specific Goal (Individualized) Outcome: Progressing Goal: Absence of Hospital-Acquired Illness or Injury Outcome: Progressing Goal: Optimal Comfort and Wellbeing Outcome: Progressing Goal: Readiness for Transition of Care Outcome: Progressing Problem: Fall Injury Risk Goal: Fall/Trauma/Injury Risk: Absence of Trauma/Injury/Falls Description: Patient will demonstrate the desired outcomes. Outcome: Progressing Goal: Knowledge of risk factors/behavior modification Description: Knowledge of risk factors/behavior modification for fall/injury prevention Outcome: Progressing Problem: Chest Pain Goal: Resolution of Chest Pain Symptoms Outcome: Progressing On admission to , from outside facility a dual RN initial assessment of skin condition was performed by Palak Mcintosh RN and Suresh Castañeda, RN and Heidi Harmon, MICHELLE. Skin Assessment: Skin not within defined limits. - Wound(s) identified: Yes Dakota Score: 21 LDA Added:Yes (PIV placed by outside hospital per pt was added) Palak Mcintosh RN documented in this encounter [facility] 04-05-2025 Nurse Note Patient discharged. Explained the AVS to the patient and answered all questions. All PIVs removed and patient taken off of tele. Patient taken to the [facility] in a wheelchair and placed in the car with family. [facility] 04-05-2025 History of Presen t illness Narrative CARDIOLOGY CONSULT PROGRESS NOTE Cardiology consult: 04/02/25 for CP, elevated troponin, ECG changes post CABG HPI I saw . Meir Landrum in follow-up on 04/05/2025. He is a 69 y.o.male with a history of CAD s/p PCI to LAD in 2008, CABG (ARORA-LAD, SVG-OM, SVG-PDA) with LAAL in March 2025, HTN, HLD, tobacco use disorder who presented with chest pain on 04/02/25. He was found to have an NSTEMI s/p LHC on 04/03/25 demonstrating 3 of 3 patient coronary bypass grafts with ARORA-LAD with competitive flow near distal anastomosis. ASSESSMENT AND PLAN NSTEMI: ECG with new TWI/flattening in leads 1, AVL, V1-V2, no ST elevation, with hs-troponin peaked at 742. 04/03/25 with downtrend. Limited TTE with EF 50-55% with right wall hypokinesis on 04/03/25. Previous TTE done prior to CABGx3 on 02/10/25, with EF of 45-50%. LHC on 04/02/25 demonstrated patent coronary bypass grafts, 3 of 3. Noted tapering near the distal anastomosis with completive flow. No chest pain since 04/03/25 around 0100. Episode of dizziness and lightheadedness while in bathroom yesterday with low blood pressures in the 80-9-'s systolllically. Imdur discontinued and metoprolol held. No angina today. Nitroglycerin gtt weaned off 04/03. -s/p Heparin gtt for 48hrs post troponin peak -Continue DAPT with ASA and plavix for 6-12 months. SAPT for life. -Continue Lipitor and Zetia. Unable to optimize dosages due to statin intolerance. Would benefit from outpatient PCSK9i therapy. -Imdur discontinued due to symptomatic hypotension. Continue Metoprolol 25mg twice daily. Nitroglycerin SL for recurrent angina. -Cardiac rehab outpatient -Highly recommend smoking cessation. -Has an appointment with Dr. Arias on 05/10/25 for outpatient cardiology follow up and a follow-up appointment with Dr. Garcia with CTS is scheduled for 04/11/25. CAD: s/p PCI to LAD 2008, 03/10/25 CABG (ARORA-LAD, SVG-OM, SVG-PDA). 04/03/25 coronary angiogram and coronary bypass angiogram with obstructive moapa CAD, left circumflex with proximal 80% stenosis distal to first obtuse marginal branch and RCA with mid 80% stenosis, patent coronary bypass grafts 3 of 3 with tapering near the distal anastomosis that is favored to represent completive flow. [place] vessels with 90% pLAD, 80% pOM1, 80% dominant RCA. -Continue Lipitor 20mg daily and Zetia 10mg, unable to optimize due to statin intolerance. Will benefit from outpatient PCSK9i therapy. -DAPT therapy with ASA and plavix for 6-12 months. -Continue Metoprolol. -Recommend aggressive risk factor modification. HTN: Blood pressures controlled. -Continue Metoprolol. -Lifestyle modifications HLD Lab Results Component Value Date CHOLESTEROL 213 (H) 03/08/2025 TRIG 392 (H) 03/08/2025 HDL 37 (L) 03/08/2025 LDLCALC 98 03/08/2025 - Currently on Lipitor 20mg daily and Zetia 10mg. Outpatient PCSK9i therapy recommended due to statin intolerance. Other hospital problems Tobacco use disorder: Highly recommend cessation from tobacco products. Would benefit from outpatient nicotine and tobacco cessation clinic when ready. GO: Nocturnal CPAP GERD: Home PPI NTERVAL HISTORY/REVIEW OF SYSTEMS Over the last day, he had no acute events. Endorses intermittent brief episodes of fluttering in his chest this morning while lying in bed. Ambulated 3 laps around unit with no CP, dizziness, lightheadedness, or fluttering in chest. Review of Systems Respiratory: Negative for cough, chest tightness, shortness of breath and wheezing. Cardiovascular: Negative for chest pain, palpitations and leg swelling. Brief episodes of intermittent fluttering in chest Gastrointestinal: Negative for abdominal distention, abdominal pain and vomiting. Musculoskeletal: Negative for arthralgias. Neurological: Negative for dizziness, light-headedness and numbness. PHYSICAL EXAM BP 140/89 (BP Location: Right arm, BP Position: Sitting) Pulse 64 Temp 97.6 F (36.4 C) (Oral) Resp 18 Ht 1.778 m (5' 10") Wt 96 kg (211 lb 9.6 oz) Comment: standing SpO2 95% BMI 30.36 kg/m Smoking Status Some Days Constitutional: Awake and in no distress. Chest: Respiratory effort is unlabored. Lungs are clear without rales, rhonchi or wheezes. Cardiovascular: No JVD appreciated. Normal rate & regular rhythm; S1 normal, S2 normal. Exam reveals no gallop, no friction rub. No murmur heard. Abdomen: Soft, non-tender, non-distended. +BS. Extremities: No peripheral edema. No stasis dermatitis. Radial, dorsalis pedis and posterior tibial pulses are 2+ bilaterally. Neurological: Alert and oriented to person, place and time. Skin: Warm, dry. No cyanosis. Nails show no clubbing. CARDIOVASCULAR IMAGING/DATA 04/03/25 Limited TTE study -Left ventricular chamber size is normal. LV systolic function is low normal with possible basal inferior, inferoseptal, and inferolateral and mid inferior and inferoseptal hypokinesis although wall motion is incompletely visualized on parasternal short axis view. LV ejection fraction is 50-55%. Diastolic function not assessed. -Right ventricular size and systolic function are normal. -Valvular disease not assessed on limited study. 04/02/25 Cardiac catheterization Coronary angiography: -The left main is angiographically normal. -The left anterior descending (LAD) is a large vessel with 90% ISR of previously placed proximal LAD stent -The left circumflex (LCx) has proximal 80% stenosis distal to the first obtuse marginal branch -The right coronary artery is dominant with mid 80% stenosis Coronary bypass graft angiography -ARORA-LAD graft is widely patent. There is some tapering near the distal anastomosis that is favored to represent competitive flow rather than obstructive stenosis. Required use of L radial artery access in order to engage -SVG-RCA is widely patent -SVG-OM is widely patent Impression Obstructive moapa coronary artery disease Patent coronary bypass grafts Recommendations: -Continue aggressive risk factor modification and medical management for CAD. -Consider medical management of NSTEMI, 48 hours of heparin (can start 4 hours after hemostasis of femoral access site) and DAPT for at least 6-12 months 03/10/25 [facility] s/p CABG - Cardiac chambers were evaluated for air and to assess need and success of venting maneuvers. - LV function 55-60% with no notable regional wall motion abnormalities. - Preserved RV function - No evidence of hemodynamically significant valvular dysfunction - No evidence of intracardiac thrombus - No evidence of aortic dissection 02/10/25 TTE -Left Ventricle: Chamber size is normal. Ejection fraction is mildly reduced (45 - 50%). -Diastolic function is normal. GLS =-17.8% -Right Ventricle: Chamber size is normal. Systolic function is normal. -Left Atrium: Chamber size is normal. -Trace TR, trace MR. 02/03/25 [facility], Coronary angiogram Diagnostics: -right dominant system -RCA : mRCA up to 80% stenosis -LAD: at previously placed proximal LAD stent there is up to 80%-90% ISR -LCx: proximal LCx just after OM1 there is up to 80% focal stenosis. Hemodynamics: LVEP: 6 mmhg LV - AO gradient none Impression: -Multivessel CAD involving pLAD with up to 80-90% ISR , 80% proximal LCx and mRCA Recommendations: -CTS Referral placed for expedited eval for CABG 24 hour telemetry (personally reviewed): NSR ADDITIONAL DATA REVIEWED Intake/Output Summary (Last 24 hours) at 04/05/2025 1744 Last data filed at 04/05/2025 1200 Gross per 24 hour Intake 885.9 ml Output 1175 ml Net -289.1 ml Temp: [97.6 F (36.4 C)-98.5 F (36.9 C)] 97.6 F (36.4 C) Pulse (Heart Rate): [60-103] 64 Resp Rate: [18] 18 BP: (98-160)/(58-89) 140/89 O2 Sat (%): [93 %-100 %] 95 % Weight: [96 kg (211 lb 9.6 oz)] 96 kg (211 lb 9.6 oz) Oxygen Therapy O2 Sat (%): 95 % O2 Device: room air Body mass index is 30.36 kg/m . LABS Bun/Creat/Cl/CO2/Glucose: 11/1.01/106/22/103 (04/05 241) Na/K+/Phos/Mg/Ca: 139/4.0/--/2.2/-- (04/05 241) WBC/Hgb/Hct/Plts: 11.02/12.2/37.3/222 (04/05 241) No results found for: "BNP" Lab Results Component Value Date CHOLESTEROL 213 (H) 03/08/2025 TRIG 392 (H) 03/08/2025 HDL 37 (L) 03/08/2025 LDLCALC 98 03/08/2025 Complexity. Obesity, class I Body mass index is 30.36 kg/m . - Follow with PCP for dietary and lifestyle modifications. Wound Documentation Any conditions listed below are present on admission unless otherwise specified. . Safety promotion/fall prevention: ID band on, call light in reach, bed in low position, wheels locked and non-skid shoes/slippers when out of bed. Diuretics will be given before 6pm when possible. Thank you for this consult. Please call with questions. We will continue to follow along. SYLVIE Carr Cardiology Consult Service Final Discharge Planning and Transportation Final Discharge Planning Selected Continued Care - Admitted Since 04/02/2025 No services have been selected for the patient. Plan Patient is medically stable for discharge to home per physician/ medical team AVS completed and recommendations for requested follow up are in place Primary nurse is aware of plan to discharge Application Technician informed patient/ family that they will need to make the necessary appointments that are placed on the AVS by the primary team HHC:none DME: none Follow up appointments appear to be made No further needs from CM for discharge Transportation Private vehicle CM had conversation with patient/caregiver related to specialty care follow-up. Barriers identified: None Outpatient CM was not contacted related to barriers Reanna Ramírez RN, MSN, CNOR Clinical Application Technician Inpatient Cardiopulmonary Rehab Follow Up Visit AND Activity Session Completed. RN approved, as tolerated, and patient agreeable to visit. Patient reports feeling "I am so excited to start cardiac rehab and get to feeling better." Activity Session Vitals: 04/05/25 1019 04/05/25 1033 Vital Signs Pulse (Heart Rate) 68 (Rest) 87 (Post-amb) Heart Rate Source Monitor Monitor BP 128/84 140/89 MAP (mmHg) 100 mmHg 107 mmHg BP Method Automatic Automatic BP Location Right arm Right arm BP Position Sitting Sitting Activity/Level of Assistance Amb in rojo/independent Ambulation Distance (feet) 1600 Symptoms Noted During/After Activity None reported Positioning Seated in chair, call light within reach telemetry all intact upon leaving the room Activity session details: Patient tolerated activity well. He was able to ambulated 1600 ft denying symptoms with activity. Patient excited for discharge, encouraged continued ambulation. RN notified/aware. Encouraged continued ambulation and discussed appropriate activity progression. Discharge education reviewed with the patient. Patient s questions/concerns addressed. Meaganmark anthony Villalobos, ([phone]) Inpatient Cardiopulmonary & Vascular Rehab Images from the original note were not included. Department of Pharmacy Admission Medication Reconciliation Note Patient: Meir Landrum Room/Bed: [facility]/A I have reviewed the patient's home medication list with the following sources Patient recall with prompting, Patient's family member/caregiver ( Jayshree), and Dispense Report. I have also reviewed this list with the pharmacist. I am recommending the following changes to the home medication list. These recommendations are considered preliminary until attestation of this note by a pharmacist. Added to Home Medications: nitroGLYCERIN 0.4 MG tablet SL Deleted from Home Medications: Furosemide 40 mg tablet - Patient reported completed Methocarbamol 500 mg tablet - Patient reported completed Oxycodone 5 mg tablet - Patient reported completed Potassium Chloride 20 MEQ Er tablet - Patient reported completed Edits to Home Medications: N/A Other Comments: The patient's allergies have been reviewed with Patient. Patient seem to be a decent historian. expressed her concern that she does not know anything and that she cannot tell me what the patient takes despite that she manages the patients medications at home. Atorvastatin 20 MG tablet - Patient reported taking differently than prescribed. Taking 10 mg daily. CEPHALEXIN 500 MG CAPSULE - Patient reported completed course. Dispensed 03/18/25 for a 10 day supply. ISOSORBIDE MONONIT ER 30 MG - Patient and his reported they were unsure if patient was taking medication at home. Patients reported "I think we have that medication at home", also reported she was unsure if she was placing medication in the patients Pill box. nitroGLYCERIN 0.4 MG tablet SL - patient reported has medication at home if needed for emergencies. - [facility] AVS from 03/15/25 - Atorvastatin Note from [facility] 01/19/25 Please feel free to contact me with any further questions. Name: Surajlorenzo Florence Phone #: [phone] Date/Time: 04/04/2025 10:42 AM Time Spent: 1 hour Cosigned by Madiha Courtney RPH at 04/04/2025 5:28 PM EDT Associated attestation - Madiha Courtney RPH - 04/04/2025 5:28 PM EDT Department of Pharmacy Admission Medication Reconciliation Note Patient: Meir Landrum Room[facility]Bed: [facility]/A Updated SPEECH AND LANGUAGE SPECIALIST Med List: Prior to Admission Medications Prescriptions Acetaminophen 325 MG tablet Sig: Take 2 tablets by mouth every 6 hours as needed for Moderate Pain or Mild Pain. Aspirin 325 MG tablet Sig: Take 1 tablet by mouth daily. Atorvastatin 20 MG tablet Sig: Take 1 tablet by mouth daily. Note (04/04/2025): Pt reported taking differently than prescribed; Taking 10 mg tablet daily. Ezetimibe 10 MG tablet Sig: Take 1 tablet by mouth daily. Metoprolol 25 MG tab regular release Sig: Take 0.5 tablets by mouth 2 times daily. Multiple Vitamins-Minerals (Multivitamin Gummies Adult) Chew Tab Sig: Chew 1 tablet daily. nitroGLYCERIN 0.4 MG tablet SL Sig: Place 1 tablet under tongue every 5 minutes as needed for Chest pain. max = 3 doses. If CP persists after 1st dose, call 911 pantoprazole [address] victoria SMITH Sig: Take 1 tablet by mouth daily. Facility-Administered Medications: None I have reviewed the home medication list with the Ramp Supervisor. The home medication list status is: complete and home med list marked as reviewed . All changes to the home medication list have been updated in [facility]. Please feel free to contact me with any further questions. Name: Madiha Courtney [facility] Date/Time: 04/04/2025 5:28 PM Physical Therapy Screen 04/04/2025 PT Therapy Completed: Screened yesterday, see PT note from 04/03 Inpatient Cardiopulmonary Rehab Consultation AND Activity Session Completed. RN approved, as tolerated, and patient agreeable to visit. Patient reports feeling I am getting anxiety because we don't have any answers." Activity Session Vitals: 04/04/25 0833 04/04/25 0845 Vital Signs Pulse (Heart Rate) 70 (Rest) 107 (Post-amb) Heart Rate Source Monitor Monitor BP 147/87 131/88 MAP (mmHg) (!) 111 mmHg 104 mmHg BP Method Automatic Automatic BP Location Left arm Left arm BP Position Lying Sitting O2 Sat (%) 96 % 99 % O2 Device room air room air Activity/Level of Assistance Amb in rojo/independent with supervision Ambulation Distance (feet) 1200 Symptoms Noted During/After Activity Mild SOB Positioning Seated in chair, call light within reach IV lines, telemetry all intact upon leaving the room Activity session details: Patient tolerated activity well. He was able to transfer from supine to EOB maintaining sternal precautions with verbal cues. He ambulated 1200 ft, reporting to experiencing mild SOB with activity but denies other symptoms with activity. Encouraged continued ambulation with supervision during admission. RN notified/aware. Encouraged continued ambulation and discussed appropriate activity progression. Discharge education reviewed with the patient. Patient s questions/concerns addressed. Meagan Villalobos, ([phone]) Inpatient Cardiopulmonary & Vascular Rehab CARDIOLOGY CONSULT PROGRESS NOTE Cardiology consult 04/02/25: CP, elevated troponin, ECG changes post CABG. HPI We saw Mr. Meir Landrum in follow-up on 04/04/2025. He is a 69 y.o. male with a history of CAD s/p PCI to LAD 2009, 3vCABG (ARORA-LAD, SVG-OM, SVG-PDA) with LAAL on 03/10/25, HTN, HLD, tobacco use disorder who presented on 04/02/2025 with CP found to have NSTEMI s/p cath 04/03 with 3/3 patent grafts but does note some ARORA-LAD tapering c/w completive flow. ASSESSMENT AND PLAN NSTEMI: hs-troponin peaked at 742 with trend down, ECG with new TWI/flattening in leads I and aVL as well as V1-V2. Suspect type 1 NSTEMI. TTE 04/03/25 showed LVEF 50-55% and rWMAs, prior TTE 02/10/25 showed LVEF 45-50% (before coronary revascularization). Coronary angiogram 04/02/25 with 3/3 patent grafts but does note some ARORA-LAD tapering c/w completive flow. Denies angina today, last episode 04/03 am. NTG gtt weaned off on 04/03 - No obvious culprit on coronary angiography. Our team reviewed and discussed catheterization report with Dr. Salinas who has also discuss the case with Dr. Garcia. Plan for medical management at this time. - Continue heparin gtt for 48 hours from troponin peak and then can stop - Continue medical management with uninterrupted DAPT with aspirin and clopidogrel for at least 6-12 months and SAPT for life - Continue metoprolol and imdur - if he had recurrent angina would increase metoprolol dose to 50mg po q12h - Continue atorvastatin and zetia, would also benefit from a PCSK9-I in the future - Highly recommend smoking cessation - Cardiac rehab consult - Outpatient cardiology follow-up with ship's cook Dr. Arias scheduled on 05/10/25 and follow-up with CTS Dr. Garcia is scheduled on 04/11/25 CAD: s/p PCI to LAD 2008, 3vCABG (ARORA-LAD, SVG-OM, SVG-PDA) on 03/10/25. Cath 04/02/25 showed patent SVG-RCA and SVG-OM, ARORA-LAD also widely patent but does have some tapering near the distal anastomosis that is favored to represent competitive flow rather than obstructive stenosis. [place] vessels with 90% pLAD, 80% pOM1, 80% dominant RCA. - Continue aspirin, clopidogrel, BB, imdur, statin and zetia HTN - Controlled pressures, continue optimizing antianginals as you are HLD: Statin intolerance Lab Results Component Value Date CHOLESTEROL 213 (H) 03/08/2025 TRIG 392 (H) 03/08/2025 HDL 37 (L) 03/08/2025 LDLCALC 98 03/08/2025 - Continue atorvastatin 20mg daily (not on high intensity dosing d/t statin intolerance), and zetia - Would likely benefit from a PCSK9-I, will defer initiation to outpatient cardiology Other hospital problems Tobacco use disorder: highly recommend cessation GO: nocturnal cpap GERD: on home PPI INTERVAL HISTORY/REVIEW OF SYSTEMS Over the last day, he had no acute events. Up in the chair today, walked 3 laps in the hallway. No current CP Review of Systems Constitutional: Negative for fever. Respiratory: Negative for shortness of breath. Cardiovascular: Negative for chest pain. Gastrointestinal: Negative for abdominal pain. Neurological: Negative for dizziness and headaches. PHYSICAL EXAM BP 134/77 Pulse 70 Temp 97.5 F (36.4 C) (Oral) Resp 16 Ht 1.778 m (5' 10") Wt 96.2 kg (212 lb 1.6 oz) Comment: standing SpO2 95% BMI 30.43 kg/m Smoking Status Some Days Constitutional: Awake and in no distress. Chest: Respiratory effort is unlabored. Lungs are clear without rales, rhonchi or wheezes, room air Cardiovascular: No JVD appreciated. Normal rate & regular rhythm; S1 normal, S2 normal. Exam reveals no gallop, no friction rub. No murmur heard. Surgical incisions well healed Abdomen: Soft, non-tender, non-distended. +BS. Extremities: No peripheral edema. No stasis dermatitis. Radial, dorsalis pedis and posterior tibial pulses are 2+ bilaterally. Neurological: Alert and oriented to person, place and time. Skin: Warm, dry. No cyanosis. Nails show no clubbing. CARDIOVASCULAR IMAGING/DATA Limited TTE 04/03/2025, preliminary report - Left ventricular chamber size is normal. LV systolic function is low normal with possible basal inferior, inferoseptal, and inferolateral and mid inferior and inferoseptal hypokinesis although wall motion is incompletely visualized on parasternal short axis view. LV ejection fraction is 50-55%. Diastolic function not assessed. - Right ventricular size and systolic function are normal. - Valvular disease not assessed on limited study. Cardiac catheterization 04/02/2025 Coronary angiography - The left main is angiographically normal. - The left anterior descending (LAD) is a large vessel with 90% ISR of previously placed proximal LAD stent - The left circumflex (LCx) has proximal 80% stenosis distal to the first obtuse marginal branch - The right coronary artery is dominant with mid 80% stenosis Coronary bypass angiography - AROR[place]-LAD graft is widely patent. There is some tapering near the distal anastomosis that is favored to represent competitive flow rather than obstructive stenosis. Required use of L radial artery access in order to engage - SVG-RCA is widely patent - SVG-OM is widely patent Impression - Obstructive [place] coronary artery disease - Patent coronary bypass grafts Recommendations - Continue aggressive risk factor modification and medical management for CAD. - Consider medical management of NSTEMI, 48 hours of heparin (can start 4 hours after hemostasis of femoral access site) and DAPT for at least 6-12 months Post CABG [facility] 03/10/2025 - Cardiac chambers were evaluated for air and to assess need and success of venting maneuvers. - LV function 55-60% with no notable regional wall motion abnormalities. - Preserved RV function - No evidence of hemodynamically significant valvular dysfunction - No evidence of intracardiac thrombus - No evidence of aortic dissection TTE 02/10/2025 - Left Ventricle: Chamber size is normal. Ejection fraction is mildly reduced (45 - 50%). - Diastolic function is normal. GLS =-17.8% - Right Ventricle: Chamber size is normal. Systolic function is normal. - Left Atrium: Chamber size is normal. - Trace TR, trace MR. Cardiac catheterization 02/03/2025 Diagnostics - right dominant system - RCA : mRCA up to 80% stenosis - LAD: at previously placed proximal LAD stent there is up to 80%-90% ISR - LCx: proximal LCx just after OM1 there is up to 80% focal stenosis. Hemodynamics - LVEDP :6 mmHg - LV - AO gradient none: Impression - Multivessel CAD involving pLAD with up to 80-90% ISR , 80% proximal LCx and mRCA . Recommendations - CTS Referral placed for expedited eval for CABG 24 hour telemetry (personally reviewed): NSR ADDITIONAL DATA REVIEWED Intake/Output Summary (Last 24 hours) at 04/04/2025 0814 Last data filed at 04/04/2025 0808 Gross per 24 hour Intake 1943.15 ml Output 1150 ml Net 793.15 ml Temp: [97.5 F (36.4 C)-98 F (36.7 C)] 97.5 F (36.4 C) Pulse (Heart Rate): [62-84] 70 Resp Rate: [15-16] 16 BP: (106-157)/(69-82) 134/77 O2 Sat (%): [95 %-97 %] 95 % Weight: [96.2 kg (212 lb 1.6 oz)] 96.2 kg (212 lb 1.6 oz) Oxygen Therapy O2 Sat (%): 95 % O2 Device: room air Body mass index is 30.43 kg/m . LABS Bun/Creat/Cl/CO2/Glucose: 13/1.02/106/22/92 (04/04 505) Na/K+/Phos/Mg/Ca: 138/3.9/--/2.1/-- (04/04 505) WBC/Hgb/Hct/Plts: 9.12/13.1/39.6/214 (04/04 0505) No results found for: "BNP" Lab Results Component Value Date CHOLESTEROL 213 (H) 03/08/2025 TRIG 392 (H) 03/08/2025 HDL 37 (L) 03/08/2025 LDLCALC 98 03/08/2025 CURRENT MEDICATIONS: Acetaminophen 975 mg Oral Q6H aspirin 81 mg Oral Daily Atorvastatin 20 mg Oral Daily Clopidogrel 75 mg Oral Daily Ezetimibe 10 mg Oral Daily Isosorbide mononitrate 30 mg Oral Daily Metoprolol 25 mg Oral BID Pantoprazole 40 mg Oral Daily Polyethylene glycol 17 g Oral Q12H Senna 8.6 mg Oral Daily heparin 12 Units/kg/hr (04/04/25 0739) Complexity. Hypocalcemia - Continue to monitor and replete. Obesity, class I Body mass index is 30.43 kg/m . - Follow with PCP for dietary and lifestyle modifications. Any conditions listed below are present on admission unless otherwise specified. . Safety promotion/fall prevention: ID band on, call light in reach, bed in low position, wheels locked and non-skid shoes/slippers when out of bed. Diuretics will be given before 6pm when possible. Thank you for this consult. Please call with questions. We will continue to follow along. SYLVIE Gibson Cardiology Consult Service CARDIAC SURGERY DAILY PROGRESS NOTE. HISTORY OF PRESENT ILLNESS: Mr. Landrum is a 69 y.o. male with a past medical history of smoking, HTN, HLD, CAD s/p PCI to LAD and CABGx3 (ARORA-LAD, SVG-OM, SVG-PDA), LAAL with Dr. Bony Garcia on 03/10/25. His postoperative course was uncomplicated and he was discharged on 03/15/25. He presented once to ED for some concerns for poor perfusion to lower extremities (bottoms of feet were purple), duplexes were WNL, but he was prescribed 10 days of Keflex for his mildly erythematous SVG sites which he completed. Pt does endorse during this time he had some right neck swelling which has since improved. On 04/01/25 patient had one cigarette (his first since surgery) at 13:00 and he started to have chest pain at 14:45. The pain was during rest, was burning, right sided, and radiated to right bicep. He took some nitroglycerin which he had on hand which relieved the pain for about 20 minutes and then it came back. He took it a second time, showered, and then the pain started to come back once again, so he took a 3rd nitroglycerin on his way to the emergency department which he presented to OSH at 17:00. There was concern of troponin increasing from 36-53 while in the ED so patient was transferred to [facility] for ongoing care. He presented to [facility] on 04/02/2025 asymptomatic, not in any distress, breathing room air and normotensive in a NSR. EKG shows new T wave inversion in aVL & V2. DATE OF SURGERY: 03/10/25 PROCEDURE: CABGx3 (ARORA-LAD, SVG-OM, SVG-PDA), LAAL SURGEON: Dr. Bony Garcia POD: 24 Code Status:Full Code 24-hour interval history: No issue overnight No chest pain reported yesterday so held off on starting Imdur (per cards recommendation) No chest pain overnight Plan for 04/04/2025: - Continue heparin gtt for now per Dr Garcia - Imdur 30mg daily - Continue metoprolol to 25 mg Q12h. Up titrate as indicated - Cardiac MRI for myocardial ischemia today - Continue DAPT (NSTEMI) - Continue Cardiac Rehab Addendum 09:45am: called to bedside for patient with borderline hypotensive. Reported patient went to restroom and became dizzy and lightheaded, "almost blacked out", and diaphoretic. BP checked and 90/50s. At bedside, patient diaphoretic, on room air at 96%, repeat BP 70/50s. Pt lying in chair. EKG obtained and same as prior. Gave 250 ml albumin. With improvement. Pt reported that prior to this he had walked with PT/OT for 3 laps and reported SBP 130s. Also received first dose of Imdur today. Will hold Imdur. Discharge Planning/NICOLE/Discharge Readiness: Anticipated, Discharge to home with home health. Follow up: TBD Imaging follow up plan: TBD Ambulatory referral to cardiac rehab order placed:Yes Dr. Bony Garcia recommends home health services upon discharge including PT, OT, and residential as indicated SURGICAL PLAN Pre-op [place]: Exam prior to CABG 1. LV: normal size and function; EF 55%; GLS -17.5%; LVH (17mm) 2. RV: normal size and function 3. No significant valvular disease 4. Mild pericardial effusion 5. NO PFO 6. No clot LI 7. Significant atherosclerosis of descending aorta (5 mm) Post-op [place]: POST-INTERVENTION SUMMARY S/p CABG - Cardiac chambers were evaluated for air and to assess need and success of venting maneuvers. - LV function 55-60% with no notable regional wall motion abnormalities. - Preserved RV function - No evidence of hemodynamically significant valvular dysfunction - No evidence of intracardiac thrombus - No evidence of aortic dissection SYSTEM BASED PLAN . Neurological: Acute Post-Operative Pain -- DVPRS: Rest: 2- mild pain (04/04 458) DVPRS: Activity: 2- mild pain (04/04 458) - PRN tylenol and oxy Cardiovascular: NSTEMI CAD s/p CABGx3 03/10/25 with new unstable angina - Plavix 75 mg, ASA to 81 mg, metoprolol, Imdur, atorvastatin - Monitor for chest pain - New T wave inversions in aVL & V2. No ST elevation - Troponin 573 > 671 > 742 - [facility] 04/02: all grafts open but ARORA-LAD tapering c/w completive flow - TTE 04/02: TTE also completed revealing EF 50-55% and WMA - Heparin gtt - Wean nitroglycerin to off 04/03 - Cardiac MRI for myocardial ischemia 04/04 - Cards following; appreciate assistance Hypertension - Metoprolol 25 mg Q12h Transient hypotension Reported patient went to restroom and became dizzy and lightheaded, "almost blacked out", and diaphoretic. BP checked and 90/50s. At bedside, patient diaphoretic, on room air at 96%, repeat BP 70/50s. Pt lying in chair. EKG obtained and same as prior. Gave 250 ml albumin. With improvement - Hold Imdur Hyperlipidemia - Home atorvastatin 20 mg QD and zetia 10 mg QD Anticoagulation Status/Plan - Heparin gtt Antiplatelet Status/Plan Indication: CAD / NSTEMI - Medication(s): ASA / Plavix Pulmonary: Tobacco use disorder - Nicotine cessation education once clinically appropriate On room air Renal: Acute Kidney Injury- Resolved Baseline Creatinine: 0.88 Baseline GFR: >90 Urine output: good Monitor chemistries Avoid nephrotoxic agents. Electrolyte imbalance Hypokalemia - Electrolyte replacement per protocol, Maintain K>4.5 Hypomagnesemia - Electrolyte replacement per protocol, Maintain Mg>3.0 Hypocalcemia - Electrolyte replacement per protocol Gastrointestinal: Slow Transit Constipation Last Bowel Movement: 04/03/[address] with scheduled miralax and senna. PRN dulcolax suppository. GERD - Continue home PPI Diet Current Diet Orders Procedures DIET HEART HEALTHY - 4 GM SODIUM Standing Status: Standing Number of Occurrences: 1 Pt. has class I obesity (BMI 30-34.9). Follow with PCP for dietary and lifestyle modifications : Body mass index is 30.43 kg/m . Integumentary/Musculoskeletal Active Incisions Wounds - Wound Documentation Wound Surgical Open Surgical Incision 03/10/25 1534 Sternum (Active) Date First Assessed/Time First Assessed: 03/10/25 153 Primary Wound Type: Surgical Secondary Wound Type - Surgical: Open Surgical Incision Present on Original Admission: No Device Related: no Incision Closure/Dressing: (c) Location: Sternum Wound Surgical 03/10/25 1534 Lower;Right Leg (Active) Date First Assessed/Time First Assessed: 03/10/25 1534 Primary Wound Type: Surgical Present on Original Admission: No Device Related: no Incision Type: laparoscopic punctures Incision Closure/Dressing: Dermabond;Island Dressing;Pedrito Wrap Wound L... Wound Surgical Sheath Site 04/02/25 1400 Left Radial (Active) Date First Assessed/Time First Assessed: 04/02/25 1400 Primary Wound Type: (c) Surgical Secondary Wound Type - Surgical: Sheath Site Device Related: no Wound Location Orientation: Left Location: Radial Wound Surgical Sheath Site 04/02/25 1511 Right Groin (Active) Date First Assessed/Time First Assessed: 04/02/25 1511 Primary Wound Type: Surgical Secondary Wound Type - Surgical: Sheath Site Present on Original Admission: No Wound Location Orientation: Right Location: Groin Endocrinology No current concern HgbA1c= 03/11/2025: Hemoglobin A1C HPLC 5.2 Hematology No current concern Infectious Disease Reactive Leukocytosis - Pt is afebrile at this time, low suspicion for infection - Monitor and trend Complexity Hypocalcemia - Continue to monitor and replete. Obesity, class I Body mass index is 30.43 kg/m . - Follow with PCP for dietary and lifestyle modifications. Prophylaxis Bundle: HOB: 30 degrees Stress ulcer ppx: [] Yes [] Therapeutic [] Home regimen [x] No, not indicated Chemical DVT ppx: [x] Yes [] No, SCDs ordered Therapy Services: BLOOD TYPER: [] Swallow [] Cognitive Eval [] Speaking Valve [x] N/A Early Mobility: PT/OT consulted: [x]Yes [] No, d/t clinical status [] No, pt is independent Current Mobility Status: OOB and ambulate Fall Risk: Assessed for patient fall risk and discussed safety measures during rounding. OBJECTIVE VITALS: Blood pressure 157/82, pulse 67, temperature 97.8 F (36.6 C), temperature source Oral, resp. rate 16, height 1.778 m (5' 10"), weight 96.2 kg (212 lb 1.6 oz), SpO2 95%. PHYSICAL EXAM: GENERAL: A+O x 4, in NAD HEENT: atraumatic, trachea midline, PEERL, EOMI HEART: RRR, Normal S1 S2. No murmurs/gallops/rubs LUNG: CTA bilaterally. Respirations symmetric and non-labored. Diaphoretic ABD: Soft, non-distended, non-tender EXT: Warm, no cyanosis, no edema in bilateral lower extremities. PULSE: Palpable Bilateral PT/DP Pulses 2+ NEURO: II-XII Grossly intact, no acute deficits appreciated PSYCH: Appropriate for the clinical situation WOUNDS/Incisions: MSI well approximated, healing appropriately SVG harvest site (R leg): intact with mild erythema, ecchymosis, and induration Janay Gonzalez PA-C Cardiovascular ICU/ Cardiac Surgery 04/04/25 7:05 AM I, Dr. Bony Garcia, have evaluated Mr. Landrum. The EMR was reviewed. I discussed the plan of care with the residents/fellows/advanced practice providers. I have reviewed their note and agree with the plan of care as documented. Readmitted for NSTEMI [facility] with patent grafts x 3 Pain free On heparin gtt and NTG gtt Reviewed with Dr. Salinas again this morning and we will transition to PO nitrates MRI ordered Continue heparin today -- Bony Garcia MD, PhD Office: [phone] Pager: [phone] Physical Therapy Screen Note: Received PT consult: Pt reports independence with all functional mobility prior to this hospital admission. Pt demonstrated independence with bed mobility, sit/stand transfers and ambulation this date. Pt reports no concerns with completing functional mobility or ambulation at this time. No acute care PT service needs identified, will discharge PT services at this time. Please re-consult should pt's functional mobility status change during this hospitalization. No charges. 04/03/25 1100 Time In/Out PT Therapy Completed Screen Initial Evaluation/Screen Completed? yes Jaison Jacobo, PT License # [id number] Pager # [phone] Occupational Therapy Attempt Note 04/03/2025 OT Therapy Completed: Screen Attempted Reason: Other (see comments) Pt reports independence with all functional mobility/ADLs prior to this hospital admission. Pt demonstrated independence with bed mobility, sit/stand transfers, self care and ambulation this date. Pt reports no concerns with completing functional mobility, ambulation or ADL/IADLs at this time. No acute care OT service needs identified, will discharge OT services at this time. Please re-consult should pt's functional status changeS during this hospitalization. Key Dockery OT CARDIOLOGY CONSULT PROGRESS NOTE Cardiology consult 04/02/25: CP, elevated troponin, ECG changes post CABG. HPI We saw Mr. Meir Landrum in follow-up on 04/03/2025. He is a 69 y.o. male with a history of CAD s/p PCI to LAD 2008, 3vCABG (ARORA-LAD, SVG-OM, SVG-PDA) with LAAL on 03/10/25, HTN, HLD, tobacco use disorder who presented on 04/02/2025 with CP found to have NSTEMI s/p cath 04/03 with 3/3 patent grafts but does note some ARORA-LAD tapering c/w completive flow. ASSESSMENT AND PLAN NSTEMI: hs-troponin peaked at 742 with trend down, ECG with new TWI/flattening in leads I and aVL as well as V1-V2. Suspect type 1 NSTEMI. TTE 04/03/25 showed LVEF 50-55% and rWMAs, prior TTE 02/10/25 showed LVEF 45-50% (before coronary revascularization). Coronary angiogram 04/02/25 with 3/3 patent grafts but does note some ARORA-LAD tapering c/w completive flow. Notes intermittent angina with last episode occurring this am ~0130. - Continue heparin gtt for 48 hours from troponin peak and then can stop - Recommend weaning NTG gtt down to off as able - Continue medical management with uninterrupted DAPT with aspirin and clopidogrel for at least 6-12 months and SAPT for life - Increase metoprolol to 50mg po q12h - If CP recurs once off NTG gtt then would add imdur to regimen - Continue atorvastatin and zetia, would also benefit from a PCSK9-I in the future - Highly recommend smoking cessation - Cardiac rehab consult - Outpatient cardiology follow-up with ship's cook Dr. Arias scheduled on 05/10/25 and follow-up with CTS Dr. Garcia is scheduled on 04/11/25 CAD: s/p PCI to LAD 2008, 3vCABG (ARORA-LAD, SVG-OM, SVG-PDA) on 03/10/25. Cath 04/02/25 showed patent SVG-RCA and SVG-OM, ARORA-LAD also widely patent but does have some tapering near the distal anastomosis that is favored to represent competitive flow rather than obstructive stenosis. [place] vessels with 90% pLAD, 80% pOM1, 80% dominant RCA. - Continue aspirin, clopidogrel, BB, statin and zetia HTN - Controlled pressures, continue optimizing antianginals as you are HLD: Statin intolerance Lab Results Component Value Date CHOLESTEROL 213 (H) 03/08/2025 TRIG 392 (H) 03/08/2025 HDL 37 (L) 03/08/2025 LDLCALC 98 03/08/2025 - Continue atorvastatin 20mg daily (not on high intensity dosing d/t statin intolerance), and zetia - Would likely benefit from a PCSK9-I, will defer initiation to outpatient cardiology Other hospital problems Tobacco use disorder: highly recommend cessation GO: nocturnal cpap GERD: on home PPI INTERVAL HISTORY/REVIEW OF SYSTEMS Over the last day, he had no acute events. Resting in bed today, did note an episode of angina around 0130 today. Review of Systems Constitutional: Negative for fever. Respiratory: Negative for shortness of breath. Cardiovascular: Positive for chest pain (intermittent, last episode ~0130). Gastrointestinal: Negative for abdominal pain. Neurological: Negative for headaches. PHYSICAL EXAM BP 133/82 Pulse 65 Temp 97.7 F (36.5 C) (Oral) Resp 16 Ht 1.778 m (5' 10") Wt 96.8 kg (213 lb 8 oz) SpO2 97% BMI 30.63 kg/m Smoking Status Some Days Constitutional: Awake and in no distress. Chest: Respiratory effort is unlabored. Lungs are clear without rales, rhonchi or wheezes, room air Cardiovascular: No JVD appreciated. Normal rate & regular rhythm; S1 normal, S2 normal. Exam reveals no gallop, no friction rub. No murmur heard. Surgical incisions well healed Abdomen: Soft, non-tender, non-distended. +BS. Extremities: No peripheral edema. No stasis dermatitis. Radial, dorsalis pedis and posterior tibial pulses are 2+ bilaterally. Neurological: Alert and oriented to person, place and time. Skin: Warm, dry. No cyanosis. Nails show no clubbing. CARDIOVASCULAR IMAGING/DATA Limited TTE 04/03/2025, preliminary report - Left ventricular chamber size is normal. LV systolic function is low normal with possible basal inferior, inferoseptal, and inferolateral and mid inferior and inferoseptal hypokinesis although wall motion is incompletely visualized on parasternal short axis view. LV ejection fraction is 50-55%. Diastolic function not assessed. - Right ventricular size and systolic function are normal. - Valvular disease not assessed on limited study. Cardiac catheterization 04/02/2025 Coronary angiography - The left main is angiographically normal. - The left anterior descending (LAD) is a large vessel with 90% ISR of previously placed proximal LAD stent - The left circumflex (LCx) has proximal 80% stenosis distal to the first obtuse marginal branch - The right coronary artery is dominant with mid 80% stenosis Coronary bypass angiography - ARORA-LAD graft is widely patent. There is some tapering near the distal anastomosis that is favored to represent competitive flow rather than obstructive stenosis. Required use of L radial artery access in order to engage - SVG-RCA is widely patent - SVG-OM is widely patent Impression - Obstructive moapa coronary artery disease - Patent coronary bypass grafts Recommendations - Continue aggressive risk factor modification and medical management for CAD. - Consider medical management of NSTEMI, 48 hours of heparin (can start 4 hours after hemostasis of femoral access site) and DAPT for at least 6-12 months Post CABG [place] 03/10/2025 - Cardiac chambers were evaluated for air and to assess need and success of venting maneuvers. - LV function 55-60% with no notable regional wall motion abnormalities. - Preserved RV function - No evidence of hemodynamically significant valvular dysfunction - No evidence of intracardiac thrombus - No evidence of aortic dissection TTE 02/10/2025 - Left Ventricle: Chamber size is normal. Ejection fraction is mildly reduced (45 - 50%). - Diastolic function is normal. GLS =-17.8% - Right Ventricle: Chamber size is normal. Systolic function is normal. - Left Atrium: Chamber size is normal. - Trace TR, trace MR. Cardiac catheterization 02/03/2025 Diagnostics - right dominant system - RCA : mRCA up to 80% stenosis - LAD: at previously placed proximal LAD stent there is up to 80%-90% ISR - LCx: proximal LCx just after OM1 there is up to 80% focal stenosis. Hemodynamics - LVEDP :6 mmHg - LV - AO gradient none: Impression - Multivessel CAD involving pLAD with up to 80-90% ISR , 80% proximal LCx and mRCA . Recommendations - CTS Referral placed for expedited eval for CABG 24 hour telemetry (personally reviewed): NSR ADDITIONAL DATA REVIEWED Intake/Output Summary (Last 24 hours) at 04/03/2025 1001 Last data filed at 04/03/2025 0922 Gross per 24 hour Intake 1096 ml Output 1000 ml Net 96 ml Temp: [97.3 F (36.3 C)-98.1 F (36.7 C)] 97.7 F (36.5 C) Pulse (Heart Rate): [61-93] 65 Resp Rate: [7-65] 16 BP: (98-157)/(58-95) 133/82 O2 Sat (%): [94 %-100 %] 97 % Weight: [96.8 kg (213 lb 8 oz)-97.5 kg (215 lb)] 96.8 kg (213 lb 8 oz) Oxygen Therapy O2 Sat (%): 97 % O2 Device: room air Flow (L/min): 2 Body mass index is 30.63 kg/m . LABS Bun/Creat/Cl/CO2/Glucose: 15/1.11/106/22/86 (04/03 130) Na/K+/Phos/Mg/Ca: 137/4.1/--/--/-- (04/03 130) WBC/Hgb/Hct/Plts: 10.22/13.1/39.5/223 (04/03 130) No results found for: "BNP" Lab Results Component Value Date CHOLESTEROL 213 (H) 03/08/2025 TRIG 392 (H) 03/08/2025 HDL 37 (L) 03/08/2025 LDLCALC 98 03/08/2025 CURRENT MEDICATIONS: Acetaminophen 975 mg Oral Q6H aspirin 81 mg Oral Daily Atorvastatin 20 mg Oral Daily Clopidogrel 75 mg Oral Daily Ezetimibe 10 mg Oral Daily Metoprolol 25 mg Oral BID Pantoprazole 40 mg Oral Daily Polyethylene glycol 17 g Oral Q12H Senna 8.6 mg Oral Daily heparin 13 Units/kg/hr (04/03/25 0922) nitroGLYCERIN 20 mcg/min (04/03/25 0900) Complexity. Hypocalcemia - Continue to monitor and replete. Obesity, class I Body mass index is 30.63 kg/m . - Follow with PCP for dietary and lifestyle modifications. Any conditions listed below are present on admission unless otherwise specified. . Safety promotion/fall prevention: ID band on, call light in reach, bed in low position, wheels locked and non-skid shoes/slippers when out of bed. Diuretics will be given before 6pm when possible. Thank you for this consult. Please call with questions. We will continue to follow along. Dena Park APRN-FLORINA Cardiology Consult Service ATTENDING ADDENDUM I personally interviewed and examined Meir Landrum on 04/03/2025. I saw and evaluated the patient with Dena Park CNP. I provided a substantive portion of the care for this patient today. I personally performed all aspects of the medical decision-making for this encounter, relative to our reason for following the patient. I have reviewed and verified the documentation and accurately reflects our care and medical decision making. Briefly, he had some recurrent pain that last night or early this evening and is on IV nitroglycerin but pain-free now. Nitro being tapered. I explained to the patient the results of his angiogram and our recommendations for medical management. Brief Exam: Blood pressure 118/70, pulse 62, temperature 97.5 F (36.4 C), temperature source Oral, resp. rate 16, height 1.778 m (5' 10"), weight 96.2 kg (212 lb 1.6 oz), SpO2 96%. Body mass index is 30.43 kg/m . Temp: [97.3 F (36.3 C)-98.1 F (36.7 C)] 97.5 F (36.4 C) Pulse (Heart Rate): [61-93] 62 Resp Rate: [7-65] 16 BP: (98-157)/(58-95) 118/70 O2 Sat (%): [94 %-100 %] 96 % Weight: [96.2 kg (212 lb 1.6 oz)-97.5 kg (215 lb)] 96.2 kg (212 lb 1.6 oz) On my exam, he is in no distress Lungs: Clear Cardiovascular Exam: Regular rate and rhythm. S1, S2 normal. No murmurs, clicks, rubs or gallops. Extremities: No edema. Right groin and left radial catheterization site intact. I have reviewed the relevant laboratory and imaging data for today, either directly in the EMR or in the associated note. Brief Assessment and Plan: Please see the METER MECHANIC note for complete details. Non ST-elevation VT post bypass surgery. No obvious culprit on coronary angiography. Catheterization report reviewed and personally discussed with Dr. Salinas who has also discuss the case with Dr. Garcia. Plan for medical management at this time. Recommendations as outlined above. Cayden Valentin M.D., [facility], [place] Professor of Internal Medicine [facility] [email or web address] Pager [phone] fax [phone] Cosigned by Cayden Valentin MD at 04/03/2025 11:21 AM EDT Discharge Planning Assessment Is the patient able to participate in the assessment?: Yes Care Management Plan CM met with patient at bedside to complete IA Anticipate patient to discharge to home when medically ready Anticipate spouse to transport to home via private vehicle DME: no additional needs at this time HH: patient reports he has been discharged from . CM confirms with Xander Quiroz RN from [facility]. No needs form CM at this time Initial Discharge Planning Expected Discharge Disposition: Home Transportation Available for Discharge: Private Vehicle, Family or Friend Anticipated DME: none Anticipated Services at Discharge: Outpatient follow up Patient Assessment Completed: Initial Legal Next of Kin Does the patient have a Guardian?: No Spouse: Yes Name and Contact information: Jayshree Angie [phone] Adult Sibling(s), List All Adult Siblings: Yes Name and Contact information: Sonali Landrum [phone] Would you like to add additional adult siblings?: No Patient Reports No Relatives by Blood or Adoption.: No Reviewed and Updated in Demographics? : Yes Advanced Care Planning Has the patient completed Advance Directives?: Not Completed Referral to Social Work for Advance Care Planning? : Patient Declines Medication Management Does the patient have prescription insurance coverage? : Yes Is the patient on Anticoagulation? : Yes Provider or Clinic that manages Anticoagulation?: ASA 81mg per MAR (patient reported ASA 325 mg) [facility]/pharmacy [id number] [place] [address] [phone] [facility] [id number] Living Environment and Support System Is the patient from a facility or chcf?: No Living Environment: House Patient Caregiving Responsibilities: Self, Spouse Patient-identified caregiver/support network: Family Who does the patient identify as a teachable caregiver(s)?: Spouse or Partner Services Does the patient use a home health or hospice agency?: No Current with dialysis?: No Does the patient use any community programs or services?: No Does patient use DME? : rollator, shower seat, blood pressure monitor Would you like to add additional DME providers?: No Does the patient use oxygen?: No Does patient use medical supplies? : none Anticipated Changes Related to Illness/Injury? : Yes Inability to care for self?: No Initial ADLs Prior to Arrival What is the patient's reported baseline physical functioning prior to this acute illness?: independent What is the patient's reported baseline cognitive functioning prior to this acute illness?: independent Is the patient's baseline functioning changed by this acute illness? : Yes Changes observed : Physical Concerns with patient being able to care for themselves at home? : Yes Reanna Ramírez RN, MSN, CNOR Clinical Application Technician CARDIAC SURGERY DAILY PROGRESS NOTE. HISTORY OF PRESENT ILLNESS: Mr. Landrum is a 69 y.o. male with a past medical history of smoking, HTN, HLD, CAD s/p PCI to LAD and CABGx3 (ARORA-LAD, SVG-OM, SVG-PDA), LAAL with Dr. Bony Garcia on 03/10/25. His postoperative course was uncomplicated and he was discharged on 03/15/25. He presented once to ED for some concerns for poor perfusion to lower extremities (bottoms of feet were purple), duplexes were WNL, but he was prescribed 10 days of Keflex for his mildly erythematous SVG sites which he completed. Pt does endorse during this time he had some right neck swelling which has since improved. On 04/01/25 patient had one cigarette (his first since surgery) at 13:00 and he started to have chest pain at 14:45. The pain was during rest, was burning, right sided, and radiated to right bicep. He took some nitroglycerin which he had on hand which relieved the pain for about 20 minutes and then it came back. He took it a second time, showered, and then the pain started to come back once again, so he took a 3rd nitroglycerin on his way to the emergency department which he presented to OSH at 17:00. There was concern of troponin increasing from 36-53 while in the ED so patient was transferred to [facility] for ongoing care. He presented to [facility] on 04/02/2025 asymptomatic, not in any distress, breathing room air and normotensive in a NSR. EKG shows new T wave inversion in aVL & V2. DATE OF SURGERY: 03/10/25 PROCEDURE: CABGx3 (ARORA-LAD, SVG-OM, SVG-PDA), LAAL SURGEON: Dr. Bony Garcia POD: 24 Code Status:Full Code 24-hour interval history: Had LHC revealing open grafts and ARORA-LAD tapering c/w completive flow. TTE also completed revealing EF 50-55% and WMA Pt had chest pain overnight and nitroglycerin up titrated with improvement Pt denies chest pain this morning Plan for 04/03/2025: - Wean nitroglycerin to off. If chest pain reoccurs will add Imdur per Cards recommendation - Continue heparin gtt x 48 hrs - Increase metoprolol to 25 mg Q12h. Up titrate as indicated - Cardiac MRI for myocardial ischemia - Stop trending troponin - Continue DAPT (NSTEMI) - Cardiac Rehab, PT/OT Discharge Planning/NICOLE/Discharge Readiness: Anticipated, Discharge to home with home health. Follow up: TBD Imaging follow up plan: TBD Ambulatory referral to cardiac rehab order placed:Yes Dr. Bony Garcia recommends home health services upon discharge including PT, OT, and residential as indicated SURGICAL PLAN Pre-op BROOK[place]NN: Exam prior to CABG 1. LV: normal size and function; EF 55%; GLS -17.5%; LVH (17mm) 2. RV: normal size and function 3. No significant valvular disease 4. Mild pericardial effusion 5. NO PFO 6. No clot LI 7. Significant atherosclerosis of descending aorta (5 mm) Post-op BROOK[place]NN: POST-INTERVENTION SUMMARY S/p CABG - Cardiac chambers were evaluated for air and to assess need and success of venting maneuvers. - LV function 55-60% with no notable regional wall motion abnormalities. - Preserved RV function - No evidence of hemodynamically significant valvular dysfunction - No evidence of intracardiac thrombus - No evidence of aortic dissection SYSTEM BASED PLAN . Neurological: Acute Post-Operative Pain -- - PRN tylenol and oxy Cardiovascular: NSTEMI CAD s/p CABGx3 03/10/25 with new unstable angina - Plavix 75 mg, ASA to 81 mg, metoprolol, atorvastatin - Monitor for chest pain - New T wave inversions in aVL & V2. No ST elevation - Troponin 573 > 671 > 742 - LHC 04/02: all grafts open but ARORA-LAD tapering c/w completive flow - TTE 04/02: TTE also completed revealing EF 50-55% and WMA - Heparin gtt x 48 hrs - Wean nitroglycerin to off. If chest pain reoccurs will add Imdur per Cards recommendation - Cardiac MRI for myocardial ischemia - Cards following; appreciate assistance Hypertension - Metoprolol 25 mg Q12h Hyperlipidemia - Home atorvastatin 20 mg QD and zetia 10 mg QD Anticoagulation Status/Plan - Heparin gtt for NSTEMI x 48 hrs Antiplatelet Status/Plan Indication: CAD / NSTEMI - Medication(s): ASA / Plavix Pulmonary: Tobacco use disorder - Nicotine cessation education once clinically appropriate On room air Renal: Acute Kidney Injury- Resolved Baseline Creatinine: 0.88 Baseline GFR: >90 Urine output: good Monitor chemistries Avoid nephrotoxic agents. Electrolyte imbalance Hypokalemia - Electrolyte replacement per protocol, Maintain K>4.5 Hypomagnesemia - Electrolyte replacement per protocol, Maintain Mg>3.0 Hypocalcemia - Electrolyte replacement per protocol Gastrointestinal: Slow Transit Constipation Last Bowel Movement: 04/01/[address] with scheduled miralax and senna. PRN dulcolax suppository. GERD - Continue home PPI Diet Current Diet Orders Procedures DIET NPO with meds Standing Status: Standing Number of Occurrences: 1 NPO Meds:: with meds Pt. has class I obesity (BMI 30-34.9). Follow with PCP for dietary and lifestyle modifications : Body mass index is 30.63 kg/m . Integumentary/Musculoskeletal Active Incisions Wounds - Wound Documentation Wound Surgical Open Surgical Incision 03/10/25 1534 Sternum (Active) Date First Assessed/Time First Assessed: 03/10/25 1534 Primary Wound Type: Surgical Secondary Wound Type - Surgical: Open Surgical Incision Present on Original Admission: No Device Related: no Incision Closure/Dressing: (c) Location: Sternum Wound Surgical 03/10/25 1534 Lower;Right Leg (Active) Date First Assessed/Time First Assessed: 03/10/25 1534 Primary Wound Type: Surgical Present on Original Admission: No Device Related: no Incision Type: laparoscopic punctures Incision Closure/Dressing: Dermabond;Island Dressing;Pedrito Wrap Wound L... Wound Surgical Sheath Site 04/02/25 1400 Left Radial (Active) Date First Assessed/Time First Assessed: 04/02/25 1400 Primary Wound Type: (c) Surgical Secondary Wound Type - Surgical: Sheath Site Device Related: no Wound Location Orientation: Left Location: Radial Wound Surgical Sheath Site 04/02/25 151 Right Groin (Active) Date First Assessed/Time First Assessed: 04/02/25 1511 Primary Wound Type: Surgical Secondary Wound Type - Surgical: Sheath Site Present on Original Admission: No Wound Location Orientation: Right Location: Groin Endocrinology No current concern HgbA1c= 03/11/2025: Hemoglobin A1C HPLC 5.2 Hematology No current concern Infectious Disease Reactive Leukocytosis - Pt is afebrile at this time, low suspicion for infection - Monitor and trend Complexity Hypocalcemia - Continue to monitor and replete. Obesity, class I Body mass index is 30.63 kg/m . - Follow with PCP for dietary and lifestyle modifications. Prophylaxis Bundle: HOB: 30 degrees Stress ulcer ppx: [] Yes [] Therapeutic [] Home regimen [x] No, not indicated Chemical DVT ppx: [x] Yes [] No, SCDs ordered Therapy Services: BLOOD TYPER: [] Swallow [] Cognitive Eval [] Speaking Valve [x] N/A Early Mobility: PT/OT consulted: [x]Yes [] No, d/t clinical status [] No, pt is independent Current Mobility Status: OOB and ambulate Fall Risk: Assessed for patient fall risk and discussed safety measures during rounding. OBJECTIVE VITALS: Blood pressure 107/70, pulse 78, temperature 97.8 F (36.6 C), temperature source Oral, resp. rate 11, height 1.778 m (5' 10"), weight 96.8 kg (213 lb 8 oz), SpO2 97%. PHYSICAL EXAM: GENERAL: A+O x 4, in NAD HEENT: atraumatic, trachea midline, PEERL, EOMI HEART: RRR, Normal S1 S2. No murmurs/gallops/rubs LUNG: CTA bilaterally. Respirations symmetric and non-labored ABD: Soft, non-distended, non-tender EXT: Warm, no cyanosis, no edema in bilateral lower extremities. PULSE: Palpable Bilateral PT/DP Pulses 2+ NEURO: II-XII Grossly intact, no acute deficits appreciated PSYCH: Appropriate for the clinical situation WOUNDS/Incisions: MSI well approximated, healing appropriately SVG harvest site (R leg): intact with mild erythema, ecchymosis, and induration Janay Gonzalez PA-C Cardiovascular ICU/ Cardiac Surgery 04/03/25 7:31 AM Care Management Progress Note Case Management attempted to complete an initial assessment and to discuss discharge planning with patient. Patient not in the room. Case Management will re-attempt at a later time when patient is available. Will continue to follow to coordinate discharge planning. Kanchan LUCAS RN Clinical Application Technician Please note that I am a float case managers and may not cover the same service every day. Please call the main Case Management office at [phone] for up-to-date coverage. Verified patients identity using date of . Appropriate PPE utilized. I, Dr. Bony Garcia, have evaluated Mr. Landrum. The EMR was reviewed. I discussed the plan of care with the residents/fellows/advanced practice providers. I have reviewed their note and agree with the plan of care as documented. Readmitted for NSTEMI Pain free On heparin gtt Ordering echocardiogram We will ask our IC team to see him Starting clopidogrel We discussed smoking cessation -- Bony Garcia MD, PhD Office: [phone] Pager: [phone] Occupational Therapy Attempt Note 04/02/2025 OT Therapy Completed: Attempted Attempted Reason: Patient is not medically optimized to tolerate therapy program (Recent admit, pending further medical workup) Occupational therapy will follow-up as medically appropriate. Key Dockery OT Physical Therapy Attempt Note 04/02/2025 PT Therapy Completed: Attempted Attempted Reason: Patient is not medically optimized to tolerate therapy program (Recent admit, pending further medical workup) Physical therapy will follow-up as medically appropriate. Thank you Miguel James DPT Time In: 714 Time Out: 714 Total Visit Time: 0 minutes Total Treatment Time (skilled, billable minutes): 0 minutes CARDIAC SURGERY DAILY PROGRESS NOTE. HISTORY OF PRESENT ILLNESS: Mr. Landrum is a 69 y.o. male with a past medical history of smoking, HTN, HLD, CAD s/p PCI to LAD and CABGx3 (ARORA-LAD, SVG-OM, SVG-PDA), LAAL with Dr. Bony Garcia on 03/10/25. His postoperative course was uncomplicated and he was discharged on 03/15/25. He presented once to ED for some concerns for poor perfusion to lower extremities (bottoms of feet were purple), duplexes were WNL, but he was prescribed 10 days of Keflex for his mildly erythematous SVG sites which he completed. Pt does endorse during this time he had some right neck swelling which has since improved. On 04/01/25 patient had one cigarette (his first since surgery) at 13:00 and he started to have chest pain at 14:45. The pain was during rest, was burning, right sided, and radiated to right bicep. He took some nitroglycerin which he had on hand which relieved the pain for about 20 minutes and then it came back. He took it a second time, showered, and then the pain started to come back once again, so he took a 3rd nitroglycerin on his way to the emergency department which he presented to OSH at 17:00. There was concern of troponin increasing from 36-53 while in the ED so patient was transferred to [facility] for ongoing care. He presented to [facility] on 04/02/2025 asymptomatic, not in any distress, breathing room air and normotensive in a NSR. EKG shows new T wave inversion in aVL & V2. DATE OF SURGERY: 03/10/25 PROCEDURE: CABGx3 (ARORA-LAD, SVG-OM, SVG-PDA), LAAL SURGEON: Dr. Bony Garcia POD: 23 Code Status:Full Code 24-hour interval history: Troponin elevated and increasing 573 > 671 > 742 Repeat EKG with same T-wave inversion in aVL and V2 compared to previous Pt denies chest pain Nitroglycerin and heparin gtt started earlier this morning Plan for 04/02/2025: - Discontinue nitroglycerin gtt given no chest pain - Continue heparin gtt - Start Plavix 75 mg (NSTEMI) and decrease ASA to 81 mg - Cards consult - TTE and possible LHC - Keep NPO Discharge Planning/NICOLE/Discharge Readiness: Anticipated, Discharge to home with home health. Follow up: TBD Imaging follow up plan: TBD Ambulatory referral to cardiac rehab order placed:Yes Dr. Bony Garcia recommends home health services upon discharge including PT, OT, and residential as indicated SURGICAL PLAN Pre-op [place]: Exam prior to CABG 1. LV: normal size and function; EF 55%; GLS -17.5%; LVH (17mm) 2. RV: normal size and function 3. No significant valvular disease 4. Mild pericardial effusion 5. NO PFO 6. No clot LI 7. Significant atherosclerosis of descending aorta (5 mm) Post-op [place]: POST-INTERVENTION SUMMARY S/p CABG - Cardiac chambers were evaluated for air and to assess need and success of venting maneuvers. - LV function 55-60% with no notable regional wall motion abnormalities. - Preserved RV function - No evidence of hemodynamically significant valvular dysfunction - No evidence of intracardiac thrombus - No evidence of aortic dissection SYSTEM BASED PLAN . Neurological: Acute Post-Operative Pain -- DVPRS: Rest: 1- mild pain (04/02 0939) DVPRS: Activity: 1- mild pain (04/02 0939) - PRN tylenol and oxy Cardiovascular: NSTEMI CAD s/p CABGx3 03/10/25 with new unstable angina - Plavix 75 mg, ASA to 81 mg, metoprolol, atorvastatin - Intolerant to statins - Monitor for chest pain - New T wave inversions in aVL & V2. No ST elevation - Troponin 573 > 671 > 742 - Heparin gtt - Cards consult - TTE and possible LHC - Keep NPO Hypertension - Metoprolol 12.5 mg Q12h Hyperlipidemia - Home atorvastatin 20 mg QD and zetia 10 mg QD Anticoagulation Status/Plan - Heparin gtt for NSTEMI Antiplatelet Status/Plan Indication: CAD / NSTEMI - Medication(s): ASA / Plavix Pulmonary: Tobacco use disorder - Nicotine cessation education once clinically appropriate On room air Renal: Acute Kidney Injury- Resolved Baseline Creatinine: 0.88 Baseline GFR: >90 Urine output: good Monitor chemistries Avoid nephrotoxic agents. Electrolyte imbalance Hypokalemia - Electrolyte replacement per protocol, Maintain K>4.5 Hypomagnesemia - Electrolyte replacement per protocol, Maintain Mg>3.0 Hypocalcemia - Electrolyte replacement per protocol Gastrointestinal: Slow Transit Constipation - Last Bowel Movement: 04/01/[address] with scheduled miralax and senna. PRN dulcolax suppository. GERD - Continue home PPI Diet -NPO now Current Diet Orders Procedures DIET NPO with meds Standing Status: Standing Number of Occurrences: 1 NPO Meds:: with meds Pt. has class I obesity (BMI 30-34.9). Follow with PCP for dietary and lifestyle modifications : Body mass index is 30.85 kg/m . Integumentary/Musculoskeletal Active Incisions Wounds - Wound Documentation Wound Surgical Open Surgical Incision 03/10/25 153 Sternum (Active) Date First Assessed/Time First Assessed: 03/10/25 153 Primary Wound Type: Surgical Secondary Wound Type - Surgical: Open Surgical Incision Present on Original Admission: No Device Related: no Incision Closure/Dressing: (c) Location: Sternum Wound Surgical 03/10/25 1534 Lower;Right Leg (Active) Date First Assessed/Time First Assessed: 03/10/25 153 Primary Wound Type: Surgical Present on Original Admission: No Device Related: no Incision Type: laparoscopic punctures Incision Closure/Dressing: Dermabond;Island Dressing;Pedrito Wrap Wound L... Endocrinology Stress Induced Hyperglycemia HgbA1c= 03/11/2025: Hemoglobin A1C HPLC 5.2 Hematology No current concern Infectious Disease Reactive Leukocytosis - Pt is afebrile at this time, low suspicion for infection - Monitor and trend Complexity Hypocalcemia - Continue to monitor and replete. Obesity, class I Body mass index is 30.85 kg/m . - Follow with PCP for dietary and lifestyle modifications. Prophylaxis Bundle: HOB: 30 degrees Stress ulcer ppx: [] Yes [] Therapeutic [] Home regimen [x] No, not indicated Chemical DVT ppx: [x] Yes [] No, SCDs ordered Therapy Services: BLOOD TYPER: [] Swallow [] Cognitive Eval [] Speaking Valve [x] N/A Early Mobility: PT/OT consulted: [x]Yes [] No, d/t clinical status [] No, pt is independent Current Mobility Status: OOB and ambulate Fall Risk: Assessed for patient fall risk and discussed safety measures during rounding. OBJECTIVE VITALS: Blood pressure 118/72, pulse 67, temperature 97.4 F (36.3 C), temperature source Oral, resp. rate 16, height 1.778 m (5' 10"), weight 97.5 kg (215 lb), SpO2 96%. PHYSICAL EXAM: GENERAL: A+O x 4, in NAD HEENT: atraumatic, trachea midline, PEERL, EOMI HEART: RRR, Normal S1 S2. No murmurs/gallops/rubs LUNG: CTA bilaterally. Respirations symmetric and non-labored ABD: Soft, non-distended, non-tender EXT: Warm, no cyanosis, no edema in bilateral lower extremities. PULSE: Palpable Bilateral PT/DP Pulses 2+ NEURO: II-XII Grossly intact, no acute deficits appreciated PSYCH: Appropriate for the clinical situation WOUNDS/Incisions: MSI well approximated, healing appropriately SVG harvest site (R leg): intact with mild erythema, ecchymosis, and induration Janay Gonzalez PA-C Cardiovascular ICU/ Cardiac Surgery 04/02/25 11:56 AM documented in this encounter [facility] 04-03-2025 Note Acute Coronary Syndr ome (ACS): Initial Evaluation and Management: [email or web address] [facility] 04-03-2025 Plan of care note Problem: Adult Inpatient Plan of Care Goal: Plan of Care Review Outcome: Progressing Goal: Patient-Specific Goal (Individualized) Outcome: Progressing Goal: Absence of Hospital-Acquired Illness or Injury Outcome: Progressing Goal: Optimal Comfort and Wellbeing Outcome: Progressing Goal: Readiness for Transition of Care Outcome: Progressing Problem: Fall Injury Risk Goal: Fall/Trauma/Injury Risk: Absence of Trauma/Injury/Falls Description: Patient will demonstrate the desired outcomes. Outcome: Progressing Goal: Knowledge of risk factors/behavior modification Description: Knowledge of risk factors/behavior modification for fall/injury prevention Outcome: Progressing Problem: Chest Pain Goal: Resolution of Chest Pain Symptoms Outcome: Progressing [facility] 04-03-2025 Note Acute Coronary Syndr ome (ACS): Initial Evaluation and Management: [email or web address] [facility] 04-03-2025 Note Acute Coronary Syndr ome (ACS): Initial Evaluation and Management: [email or web address] [facility] 04-03-2025 Note Acute Coronary Syndr ome (ACS): Initial Evaluation and Management: [email or web address] [facility] 04-03-2025 Note Acute Coronary Syndr ome (ACS): Initial Evaluation and Management: [email or web address]#search=[email or web address] [facility] 04-03-2025 Plan of care note Limited study to evaluate for LVEF and RWMA. Preliminary report is below, images are available for review - please see final attending echocardiogram report in AM, which may differ from preliminary report. TRANSTHORACIC ECHOCARDIOGRAM Left ventricular chamber size is normal. LV systolic function is low normal with possible basal inferior, inferoseptal, and inferolateral and mid inferior and inferoseptal hypokinesis although wall motion is incompletely visualized on parasternal short axis view. LV ejection fraction is 50-55%. Diastolic function not assessed. Right ventricular size and systolic function are normal. Valvular disease not assessed on limited study. [facility] Work Phone: 04-02-2025 Note Acute Coronary Syndr ome (ACS): Initial Evaluation and Management: [email or web address] [facility] 04-02-2025 Nurse Note TR band removed. No signs of bleeding or hematoma are noticed. Pt is stable and denies any pain or discomfort [facility] 04-02-2025 Surgery Postoperative evaluation and management note Preliminary Report - Brief Cardiac Catheterization Procedure Note Meir Landrum ([id number]) Pre Procedural Diagnosis NSTEMI (non-ST elevated myocardial infarction) [I21.4] Post Procedural Diagnosis Obstructive CAD Procedure Performed Left heart catheterization, Coronary angiogram, and Bypass angiogram Access Site/Hemostasis Right femoral artery, Sheath left in Left radial, artery, TR Compression Band Findings Left Ventricular End Diastolic Pressure: Not assessed Left Ventricular Ejection Fraction: Not assessed Preliminary Results of Angiography Obstructive CAD Percutaneous Coronary Intervention No Intervention Intraprocedure Anticoagulation Heparin Post-procedure Anticoagulation If anticoagulation is indicated per primary team, may restart 4 hours after hemostasis has been achieved Estimated Blood Loss Minimal Complications None Admission Does patient need to be admitted: Currently admitted Surgeon Surgeons and Role: * Nicole Salinas MD, PhD - Primary * Joaquim Flanagan MD - Fellow Procedural Staff Sedation Nurse: Kirstin Thayer RN; Olivia Marte RN Documenter: Ifeanyi Jorge RN Full report to follow Joaquim Flanagan MD April 02, 2025 1:40 PM Cosigned by Nicole Salinas MD, PhD at 04/02/2025 10:48 PM EDT Associated attestation - Nicole Salinas MD, PhD - 04/02/2025 10:48 PM EDT I was present, scrubbed and participated in all the critical components of this case. I have reviewed and concur with the Brief Operative Note. Nicole Salinas MD, PhD, [facility], [facility] electrical accessories assembler Director, Division of Cardiovascular Medicine [facility] in Cardiology Department of Internal Medicine [facility] Work Phone: 04-02-2025 Plan of care note Problem: Adult Inpatient Plan of Care Goal: Plan of Care Review Outcome: Progressing Goal: Patient-Specific Goal (Individualized) Outcome: Progressing Goal: Absence of Hospital-Acquired Illness or Injury Outcome: Progressing Goal: Optimal Comfort and Wellbeing Outcome: Progressing Goal: Readiness for Transition of Care Outcome: Progressing Problem: Fall Injury Risk Goal: Fall/Trauma/Injury Risk: Absence of Trauma/Injury/Falls Description: Patient will demonstrate the desired outcomes. Outcome: Progressing Goal: Knowledge of risk factors/behavior modification Description: Knowledge of risk factors/behavior modification for fall/injury prevention Outcome: Progressing Problem: Chest Pain Goal: Resolution of Chest Pain Symptoms Outcome: Progressing [facility] 04-02-2025 Consult note Associated Order (s): IP CONSULT TO CARDIOLOGY Images from the original note were not included. CARDIOLOGY CONSULTATION NOTE Consulting Provider: Dr. Garcia Consult Date: 04/02/2025 reason for consultation: CP, elevated troponin, ECG changes post CABG IMPRESSION AND PLAN Mr. Landrum is a 69 y.o. male with h/o CAD s/p PCI to LAD 2008, CABG (ARORA-LAD, SVG-OM, SVG-PDA) in March 2025, LAAL, HTN, HLD, tobacco use disorder with recent CABG in 03/10/2025 who presents with chest pain. Cardiology consulted for chest pain and ECG changes. NSTEMI CAD s/p PCI to LAD 2008, CABG (ARORA-LAD, SVG-OM, SVG-PDA) HTN HLD Statin intolerance Tobacco use disorder GO Recommendations: - Pt with multiple episodes of chest pressure that resolved with nitroglycerin, now with continued rise in troponin, most recently at 742, with new TWI/flattening in leads I and aVL as well as V1-V2 consistent with type 1 NSTEMI. - Continue ASA and heparin gtt - If with recurrent chest pain, can resume nitroglycerin gtt - Plan for cath today (ordered), discussed with Dr. Salinas - Continue Atorvastatin/Zetia, will likely require PCSK9i therapy as an outpatient - Can transition to Toprol 25mg daily - Limited TTE to assess for EF post VT - Recommend complete abstinence from tobacco products Pt staffed with attending physician Dr. Valentin. Cardiology will follow. Please page with questions. Layo Pierre MD Cardiovascular Medicine Fellow Consultative attending addendum(CHITO): I personally interviewed and examined the patient on 04/02/[address] Pierre, reviewed / revised / edited the above note as needed to reflect the findings as elicited by me including the Chief Complaint and history of present illness, reviewed the relevant details of the patient's past medical, surgical, family, social history, allergies, medications and review of systems, reviewed the relevant available laboratory and imaging data. I directed the consultative management and have edited as needed the above note to reflect my medical decision making and / or made additional recommendations as noted. Briefly, this 69-year-old gentleman with a history of remote PCI and recent bypass surgery as detailed above as well as hypertension hyperlipidemia and tobacco use disorder presents with recurrent chest pain several weeks after three-vessel bypass surgery. He was doing well but over the last week has noted some fatigue which was worse than earlier postoperatively. Yesterday he developed substernal chest discomfort that radiated to his right bicep, partially relieved with nitroglycerin. ECG reveals new T-wave changes and troponins are rising. He is hemodynamically stable. Discussed with the canvas shop laborer staff, will proceed with coronary angiography. From a medical management point of view, recommendations outlined above including aspirin, intravenous heparin, Plavix, beta-roberto, Zetia and statin. He reports statin intolerance, tolerating low-dose statin as well as Zetia. Most likely would benefit from a PCSK9 inhibitor as an outpatient. Recommend beta-roberto for now as well as limited transthoracic echo. I personally discussed his case with Dr. Salinas. On my examination on 04/02/2025, he is a pleasant, age-appropriate gentleman in no distress Blood pressure 108/73, pulse 77, temperature 98 F (36.7 C), temperature source Oral, resp. rate 16, height 1.778 m (5' 10"), weight 97.5 kg (215 lb), SpO2 94%. Skin is warm and dry. HEENT: Atraumatic/normocephalic. No scleral icterus. Neck: Supple, quite thick, no definite neck vein elevation. No carotid bruits. Lungs clear. Chest: Sternum is stable, no warmth, erythema or tenderness. Surgical incisions well healed. Soft, nontender abdomen. No lower extremity edema. Alert and oriented. No gross focal findings. Cayden Valentin M.D., [facility], [place] Professor of Internal Medicine [email or web address] [email or web address] ph [phone] fax [phone] HISTORY OF PRESENT ILLNESS Mr. Landrum is a 69 y.o. male with h/o CAD s/p PCI to LAD 2008, CABG (ARORA-LAD, SVG-OM, SVG-PDA), LAAL, HTN, HLD, tobacco use disorder with recent CABG in 03/10/2025 who presents with chest pain. Cardiology consulted for chest pain. On 04/01/25 patient had one cigarette (his first since surgery) at 13:00 and he started to have chest pain at 14:45. The pain was during rest, was burning, right sided, and radiated to right bicep. He took some nitroglycerin which he had on hand which relieved the pain for about 20 minutes and then it came back. He took it a second time, showered, and then the pain started to come back once again, so he took a 3rd nitroglycerin on his way to the emergency department which he presented to OSH at 17:00. There was concern of troponin increasing from 36-53 while in the ED so patient was transferred to [facility] for ongoing care. He reports that following his transfer to [facility], he had about 30 minutes of arm pain, that this resolved spontaneously. He has not had further episodes of chest discomfort since that time. He was started on nitroglycerin gtt this morning despite not having any pain and otherwise tolerated the medication without adverse effects. PAST, FAMILY, AND SOCIAL HISTORY He has a past medical history of Arthritis, CAD (coronary artery disease), Cardiac angina, Congestive heart failure, Diverticulitis, GERD (gastroesophageal reflux disease), Hyperlipidemia, and VT (myocardial infarction). His family history includes Heart Disease - Other in his father, maternal grandfather, maternal uncle, mother, and paternal grandfather; Heart Failure in his father; Myocardial Infarction in his maternal grandfather, maternal uncle, and paternal grandfather; Uterine Cancer in his mother. He reports that he has been smoking cigarettes. He started smoking about 50 years ago. He has a 47.5 pack-year smoking history. He has never used smokeless tobacco. He reports that he does not currently use alcohol. He reports that he does not use drugs. He is allergic to penicillins, rosuvastatin, simvastatin, ciprofloxacin, bactrim [sulfamethoxazole-trimethoprim], meloxicam, and varenicline. He has a current medication list which includes the following prescription(s): acetaminophen, aspirin, atorvastatin, ezetimibe, furosemide, methocarbamol, metoprolol, multivitamin gummies adult, oxycodone, pantoprazole, and potassium chloride, and the following Facility-Administered Medications: acetaminophen, alum/mag hydrox.-simethicone, aspirin, atorvastatin, calcium gluconate OR Calcium Gluconate 4 g in Sodium chloride 0.9%, with overfill 150 mL (total volume) IVPB, ezetimibe, heparin, magnesium sulfate, metoprolol, oxycodone OR oxycodone, pantoprazole, polyethylene glycol, potassium bicarb-citric acid, potassium chloride, senna OR [DISCONTINUED] senna, sodium phosphate 30 mmol in Sodium chloride 0.9%, with overfill 285 mL (total volume) IVPB OR sodium phosphate 45 mmol in Sodium chloride 0.9%, with overfill 290 mL (total volume) IVPB. REVIEW OF SYSTEMS A 14-point review of systems is negative except for what is mentioned to be positive elsewhere. PHYSICAL EXAMINATION BP 129/85 Pulse 74 Temp 98 F (36.7 C) (Oral) Resp 14 Ht 1.778 m (5' 10") Wt 97.5 kg (215 lb) Comment: standing SpO2 93% BMI 30.85 kg/m Smoking Status Some Days O2 Device: nasal cannula (04/02/25 0738) General: NAD, well developed, well groomed, appears stated age HEENT: NC/AT, EOMI, no scleral icterus or conjunctival injection, MMM, estimated JVP 6 cm H20 Respiratory: Normal effort, no accessory muscle usage, symmetric to auscultation bilaterally, no wheezes or crackles CV: Regular rate, regular rhythm, nl S1/S2, no murmurs, bilateral lower extremities without edema, prior sternotomy Abdomen: Soft, non-tender, non-distended MSI: Normal muscle tone and bulk, skin warm and dry Neuro: CN2-12 intact without focal deficits, distal sensation to light touch intact Psych: Conversationally oriented DATA REVIEW ECG and telemetry reviewed, INVASIVE CARDIOVASCULAR PROCEDURE 02/03/2025 (Final) Conclusion Background:Meir Landrum is 69 y.o. who presents for [facility]/Coronary angiogram due to DAVID. Access: Right Radial Diagnostics: - right dominant system -RCA : mRCA up to 80% stenosis -LAD: at previously placed proximal LAD stent there is up to 80%-90% ISR -LCx: proximal LCx just after OM1 there is up to 80% focal stenosis. 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 Recommendations: CTS Referral placed for expedited eval for CABG TTE 02/10/2025: Left Ventricle: Chamber size is normal. Ejection fraction is mildly reduced (45 - 50%). Diastolic function is normal. GLS =-17.8% Right Ventricle: Chamber size is normal. Systolic function is normal. Left Atrium: Chamber size is normal. Trace TR, trace MR. Lab Results Component Value Date SODIUM 139 04/02/2025 POTASSIUM 4.0 04/02/2025 CHLORIDE 105 04/02/2025 CO2 23 04/02/2025 BUN 16 04/02/2025 CREATSERUM 1.18 04/02/2025 Lab Results Component Value Date WBC 10.90 (H) 04/02/2025 HGB 14.2 04/02/2025 HCT 43.8 04/02/2025 PLATELET 291 04/02/2025 MCV 93.0 04/02/2025 Lab Results Component Value Date CHOLESTEROL 213 (H) 03/08/2025 TRIG 392 (H) 03/08/2025 HDL 37 (L) 03/08/2025 LDLCALC 98 03/08/2025 Lab Results Component Value Date ALT 13 04/02/2025 AST 20 04/02/2025 ALKPHOS 70 04/02/2025 BILITOTAL 0.6 04/02/2025 BILIDIRECT <0.1 04/02/2025 Recent Labs 04/02/25 0341 04/02/25 0504 04/02/25 0701 HSTROP 573* 631* 742* Cosigned by Cayden Valentin MD at 04/02/2025 10:35 AM EDT [facility] Work Phone: 04-02-2025 Consult note Associated Order (s): IP CONSULT TO CARDIOLOGY Images from the original note were not included. CARDIOLOGY CONSULTATION NOTE Consulting Provider: Dr. Garcia Consult Date: 04/02/2025 reason for consultation: CP, elevated troponin, ECG changes post CABG IMPRESSION AND PLAN Mr. Landrum is a 69 y.o. male with h/o CAD s/p PCI to LAD 2008, CABG (ARORA-LAD, SVG-OM, SVG-PDA) in March 2025, LAAL, HTN, HLD, tobacco use disorder with recent CABG in 03/10/2025 who presents with chest pain. Cardiology consulted for chest pain and ECG changes. NSTEMI CAD s/p PCI to LAD 2008, CABG (ARORA-LAD, SVG-OM, SVG-PDA) HTN HLD Statin intolerance Tobacco use disorder GO Recommendations: - Pt with multiple episodes of chest pressure that resolved with nitroglycerin, now with continued rise in troponin, most recently at 742, with new TWI/flattening in leads I and aVL as well as V1-V2 consistent with type 1 NSTEMI. - Continue ASA and heparin gtt - If with recurrent chest pain, can resume nitroglycerin gtt - Plan for cath today (ordered), discussed with Dr. Salinas - Continue Atorvastatin/Zetia, will likely require PCSK9i therapy as an outpatient - Can transition to Toprol 25mg daily - Limited TTE to assess for EF post VT - Recommend complete abstinence from tobacco products Pt staffed with attending physician Dr. Valentin. Cardiology will follow. Please page with questions. Layo Pierre MD Cardiovascular Medicine Fellow Consultative attending addendum(CHITO): I personally interviewed and examined the patient on 04/02/[address] Pierre, reviewed / revised / edited the above note as needed to reflect the findings as elicited by me including the Chief Complaint and history of present illness, reviewed the relevant details of the patient's past medical, surgical, family, social history, allergies, medications and review of systems, reviewed the relevant available laboratory and imaging data. I directed the consultative management and have edited as needed the above note to reflect my medical decision making and / or made additional recommendations as noted. Briefly, this 69-year-old gentleman with a history of remote PCI and recent bypass surgery as detailed above as well as hypertension hyperlipidemia and tobacco use disorder presents with recurrent chest pain several weeks after three-vessel bypass surgery. He was doing well but over the last week has noted some fatigue which was worse than earlier postoperatively. Yesterday he developed substernal chest discomfort that radiated to his right bicep, partially relieved with nitroglycerin. ECG reveals new T-wave changes and troponins are rising. He is hemodynamically stable. Discussed with the canvas shop lab[employer] staff, will proceed with coronary angiography. From a medical management point of view, recommendations outlined above including aspirin, intravenous heparin, Plavix, beta-roberto, Zetia and statin. He reports statin intolerance, tolerating low-dose statin as well as Zetia. Most likely would benefit from a PCSK9 inhibitor as an outpatient. Recommend beta-roberto for now as well as limited transthoracic echo. I personally discussed his case with Dr. Salinas. On my examination on 04/02/2025, he is a pleasant, age-appropriate gentleman in no distress Blood pressure 108/73, pulse 77, temperature 98 F (36.7 C), temperature source Oral, resp. rate 16, height 1.778 m (5' 10"), weight 97.5 kg (215 lb), SpO2 94%. Skin is warm and dry. HEENT: Atraumatic/normocephalic. No scleral icterus. Neck: Supple, quite thick, no definite neck vein elevation. No carotid bruits. Lungs clear. Chest: Sternum is stable, no warmth, erythema or tenderness. Surgical incisions well healed. Soft, nontender abdomen. No lower extremity edema. Alert and oriented. No gross focal findings. Cayden Valentin M.D., [facility], [place] Professor of Internal Medicine [email or web address] [email or web address] ph [phone] fax [phone] HISTORY OF PRESENT ILLNESS Mr. Landrum is a 69 y.o. male with h/o CAD s/p PCI to LAD 2008, CABG (ARORA-LAD, SVG-OM, SVG-PDA), LAAL, HTN, HLD, tobacco use disorder with recent CABG in 03/10/2025 who presents with chest pain. Cardiology consulted for chest pain. On 04/01/25 patient had one cigarette (his first since surgery) at 13:00 and he started to have chest pain at 14:45. The pain was during rest, was burning, right sided, and radiated to right bicep. He took some nitroglycerin which he had on hand which relieved the pain for about 20 minutes and then it came back. He took it a second time, showered, and then the pain started to come back once again, so he took a 3rd nitroglycerin on his way to the emergency department which he presented to OS at 17:00. There was concern of troponin increasing from 36-53 while in the ED so patient was transferred to [facility] for ongoing care. He reports that following his transfer to [facility], he had about 30 minutes of arm pain, that this resolved spontaneously. He has not had further episodes of chest discomfort since that time. He was started on nitroglycerin gtt this morning despite not having any pain and otherwise tolerated the medication without adverse effects. PAST, FAMILY, AND SOCIAL HISTORY He has a past medical history of Arthritis, CAD (coronary artery disease), Cardiac angina, Congestive heart failure, Diverticulitis, GERD (gastroesophageal reflux disease), Hyperlipidemia, and VT (myocardial infarction). His family history includes Heart Disease - Other in his father, maternal grandfather, maternal uncle, mother, and paternal grandfather; Heart Failure in his father; Myocardial Infarction in his maternal grandfather, maternal uncle, and paternal grandfather; Uterine Cancer in his mother. He reports that he has been smoking cigarettes. He started smoking about 50 years ago. He has a 47.5 pack-year smoking history. He has never used smokeless tobacco. He reports that he does not currently use alcohol. He reports that he does not use drugs. He is allergic to penicillins, rosuvastatin, simvastatin, ciprofloxacin, bactrim [sulfamethoxazole-trimethoprim], meloxicam, and varenicline. He has a current medication list which includes the following prescription(s): acetaminophen, aspirin, atorvastatin, ezetimibe, furosemide, methocarbamol, metoprolol, multivitamin gummies adult, oxycodone, pantoprazole, and potassium chloride, and the following Facility-Administered Medications: acetaminophen, alum/mag hydrox.-simethicone, aspirin, atorvastatin, calcium gluconate OR Calcium Gluconate 4 g in Sodium chloride 0.9%, with overfill 150 mL (total volume) IVPB, ezetimibe, heparin, magnesium sulfate, metoprolol, oxycodone OR oxycodone, pantoprazole, polyethylene glycol, potassium bicarb-citric acid, potassium chloride, senna OR [DISCONTINUED] senna, sodium phosphate 30 mmol in Sodium chloride 0.9%, with overfill 285 mL (total volume) IVPB OR sodium phosphate 45 mmol in Sodium chloride 0.9%, with overfill 290 mL (total volume) IVPB. REVIEW OF SYSTEMS A 14-point review of systems is negative except for what is mentioned to be positive elsewhere. PHYSICAL EXAMINATION BP 129/85 Pulse 74 Temp 98 F (36.7 C) (Oral) Resp 14 Ht 1.778 m (5' 10") Wt 97.5 kg (215 lb) Comment: standing SpO2 93% BMI 30.85 kg/m Smoking Status Some Days O2 Device: nasal cannula (04/02/25 0738) General: NAD, well developed, well groomed, appears stated age HEENT: NC/AT, EOMI, no scleral icterus or conjunctival injection, MMM, estimated JVP 6 cm H20 Respiratory: Normal effort, no accessory muscle usage, symmetric to auscultation bilaterally, no wheezes or crackles CV: Regular rate, regular rhythm, nl S1/S2, no murmurs, bilateral lower extremities without edema, prior sternotomy Abdomen: Soft, non-tender, non-distended MSI: Normal muscle tone and bulk, skin warm and dry Neuro: CN2-12 intact without focal deficits, distal sensation to light touch intact Psych: Conversationally oriented DATA REVIEW ECG and telemetry reviewed, INVASIVE CARDIOVASCULAR PROCEDURE 02/03/2025 (Final) Conclusion Background:Meir Landrum is 69 y.o. who presents for [facility]/Coronary angiogram due to DAVID. Access: Right Radial Diagnostics: - right dominant system -RCA : mRCA up to 80% stenosis -LAD: at previously placed proximal LAD stent there is up to 80%-90% ISR -LCx: proximal LCx just after OM1 there is up to 80% focal stenosis. 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 Recommendations: CTS Referral placed for expedited eval for CABG TTE 02/10/2025: Left Ventricle: Chamber size is normal. Ejection fraction is mildly reduced (45 - 50%). Diastolic function is normal. GLS =-17.8% Right Ventricle: Chamber size is normal. Systolic function is normal. Left Atrium: Chamber size is normal. Trace TR, trace MR. Lab Results Component Value Date SODIUM 139 04/02/2025 POTASSIUM 4.0 04/02/2025 CHLORIDE 105 04/02/2025 CO2 23 04/02/2025 BUN 16 04/02/2025 CREATSERUM 1.18 04/02/2025 Lab Results Component Value Date WBC 10.90 (H) 04/02/2025 HGB 14.2 04/02/2025 HCT 43.8 04/02/2025 PLATELET 291 04/02/2025 MCV 93.0 04/02/2025 Lab Results Component Value Date CHOLESTEROL 213 (H) 03/08/2025 TRIG 392 (H) 03/08/2025 HDL 37 (L) 03/08/2025 LDLCALC 98 03/08/2025 Lab Results Component Value Date ALT 13 04/02/2025 AST 20 04/02/2025 ALKPHOS 70 04/02/2025 BILITOTAL 0.6 04/02/2025 BILIDIRECT <0.1 04/02/2025 Recent Labs 04/02/25 0341 04/02/25 0504 04/02/25 0701 HSTROP 573* 631* 742* Cosigned by Cayden Valentin MD at 04/02/2025 10:35 AM EDT documented in this encounter [facility] 04-02-2025 Note Acute Coronary Syndr ome (ACS): Initial Evaluation and Management: [email or web address] [facility] 04-02-2025 Note Acute Coronary Syndr ome (ACS): Initial Evaluation and Management: [email or web address] 04-02-2025 Note Acute Coronary Syndr ome (ACS): Initial Evaluation and Management: [email or web address] 04-02-2025 Nurse Note On admission to , from outside facility a dual RN initial assessment of skin condition was performed by Palak Mcintosh RN and Suresh Castañeda RN and Heidi Harmon RN. Skin Assessment: Skin not within defined limits. - Wound(s) identified: Yes [place] Score: 21 LDA Added:Yes (PIV placed by outside hospital per pt was added) Palak Mcintosh RN [facility] 04-02-2025 History and physical note CARDIAC SURGERY HISTORY AND PHYSICAL HPI Mr. Landrum is a 69 y.o. male with a past medical history of smoking, HTN, HLD, CAD s/p PCI to LAD and CABG x3, LAAL with Dr. Bony Garcia on 03/10/25. His postoperative course was uncomplicated and he was discharged on 03/15/25. He presented once to ED for some concerns for poor perfusion to lower extremities (bottoms of feet were purple), duplexes were WNL, but he was prescribed 10days of Keflex for his mildly erythematous SVG sites which he completed. Pt does endorse during this time he had some right neck swelling which has since improved. On 04/01/25 patient had one cigarette (his first since surgery) at 13:00 and he started to have chest pain at 14:45. The pain was during rest, was burning, right sided, and radiated to right bicep. He took some nitroglycerin which he had on hand which relieved the pain for about 20 minutes and then it came back. He took it a second time, showered, and then the pain started to come back once again, so he took a 3rd nitroglycerin on his way to the emergency department which he presented to OSH at 17:00. There was concern of troponin increasing from 36-53 while in the ED so patient was [facility]. He presents to [facility] on 04/02/2025 asymptomatic, not in any distress, breathing room air and normotensive in a NSR. EKG shows new T wave inversion in aVL & V2. REVIEW OF SYSTEMS: General: Denies recent illness or fever or recent sick contacts Neuro: Denies numbness, tingling, unilateral weakness, or visual disturbances. Cardiac: Denies current chest pain Pulm: Denies dyspnea on exertion, shortness of breath, orthopnea. : Denies burning with urination GI: Denies black or bloody stools. Last BM yesterday morning MSK: Patient states they are physically able and ambulates at baseline without assistance or DME Derm: Denies rashes, wounds, or pressure ulcers Current Outpatient Medications Medication Instructions Acetaminophen (TYLENOL) 650 mg, Oral, EVERY 6 HOURS NEEDED Aspirin 325 mg, Oral, DAILY Atorvastatin (LIPITOR) 20 mg, Oral, DAILY Ezetimibe (ZETIA) 10 mg, Oral, DAILY furOSEmide (LASIX) 40 mg, Oral, DAILY Methocarbamol (ROBAXIN) 500 mg, Oral, EVERY 8 HOURS Metoprolol (LOPRESSOR) 12.5 mg, Oral, 2 TIMES DAILY Multiple Vitamins-Minerals (Multivitamin Gummies Adult) Chew Tab 1 tablet, DAILY oxyCODONE (ROXICODONE) 5 mg, Oral, EVERY 8 HOURS NEEDED pantoprazole (PROTONIX) 20 mg, DAILY Potassium chloride 20 MEQ Tab CR tablet 40 mEq, Oral, DAILY, Take potasium along with Lasix. Stop taking if you no longer on Lasix . PAST MEDICAL HISTORY Past Medical History: Diagnosis Date Arthritis CAD (coronary artery disease) Cardiac angina Congestive heart failure Diverticulitis GERD (gastroesophageal reflux disease) Hyperlipidemia VT (myocardial infarction) Past Surgical History: Procedure Laterality Date CABG W/ ARTERY GRAFT OPEN Midline 03/10/2025 Laterality: Midline; Surgeon: Bony Garcia MD, PhD; Location: [facility] MAIN OR ARTHROPLASTY SHOULDER TOTAL Left 08/14/2022 Laterality: Left; Surgeon: Robin Mcguire MD; Location: [facility] MAIN OR TENODESIS BICEPS LONG TENDON Left 08/14/2022 Laterality: Left; Surgeon: Robin Mcguire MD; Location: [facility] MA[facility] OR ARTHROPLASTY HIP TOTAL ANTERIOR APPROACH Right 07/02/2021 Laterality: Right; Surgeon: Amarjit Marroquin MD; Location: [facility] MA[facility] OR ASPIRATION OR INJECTION LARGE JOINT BURSA Left 07/02/2021 Laterality: Left; Surgeon: Amarjit Marroquin MD; Location: [facility] MAIN OR CORONARY STENT PLACEMENT 2008 MENISCECTOMY Left SHOULDER ARTHROSCOPY Right FAMILY HISTORY Family History Problem Relation Age of Onset Uterine Cancer Mother Heart Disease - Other Mother Heart Disease - Other Father Heart Failure Father Heart Disease - Other Maternal Uncle Myocardial Infarction Maternal Uncle Heart Disease - Other Maternal Grandfather Myocardial Infarction Maternal Grandfather Heart Disease - Other Paternal Grandfather Myocardial Infarction Paternal Grandfather SOCIAL HISTORY reports that he has been smoking cigarettes. He started smoking about 50 years ago. He has a 47.5 pack-year smoking history. He has never used smokeless tobacco. He reports that he does not currently use alcohol. He reports that he does not use drugs. Social History Tobacco Use Smoking Status Some Days Current packs/day: 0.50 Average packs/day: 1 pack/day for 48.3 years (47.5 ttl pk-yrs) Types: Cigarettes Start date: 09/08/1974 Last attempt to quit: 04/30/2021 Smokeless Tobacco Never Tobacco Comments Not a heavy smoker and have quit several times in last 10 years Social History Substance and Sexual Activity Alcohol Use Not Currently Comment: Less than once a week ALLERGIES Allergies Allergen Reactions Penicillins Itching Itching Rosuvastatin Numbness Other reaction(s): Other Simvastatin Other reaction(s): Myalgias, Other Ciprofloxacin Numbness Bactrim [Sulfamethoxazole-Trimethoprim] Hives and Swelling Meloxicam Hives It is tolerable if he uses benadryl. Varenicline Other reaction(s): Mental Status Change Depression PLAN 04/02/2025 Admit to cardiac surgery service under Dr. Bony Garcia - Admission labs including troponin - Pt does not appear fluid overloaded - CXR - Monitor for chest pain - EKG with new T wave inversion in aVL & V2 PHYSICAL EXAM VITALS: Blood pressure 123/82, pulse 78, temperature 97.8 F (36.6 C), temperature source Oral, resp. rate 16, height 1.778 m (5' 10"), weight 97.5 kg (215 lb), SpO2 97%. WEIGHT: Wt Readings from Last 1 Encounters: 04/02/25 97.5 kg (215 lb) General appearance: Alert, cooperative, appears stated age Lungs: Clear bilaterally Heart: Regular rate and rhythm, no murmur noted Abdomen: Soft, non-distended, non-tender Extremities: No lower extremity edema. Bilateral lower extremities are warm and well perfused Skin: Thorough skin exam including chest and bilateral groins complete without any rashes, wounds, or pressure ulcers Neurologic: No gross focal deficits noted Psych: Appropriate mood and affect for clinical situation Incisions: RLE SVG sites intact with mild erythema and induration. Very small amount of serous fluid expressed from distal SVG site upon palpation. MSI intact healing appropriately with minimal erythem SYSTEM BASED PROBLEMS Neurological: \\ Cardiovascular: CAD s/p CABGx3 03/10/25 with new unstable angina Aspirin, statin, beta roberto Monitor for chest pain New T wave inversions in aVL & V2. No ST elevation Trend troponin Hypertension- Continue BB Hyperlipidemia- Continue home statin & zetia Pulmonary: Tobacco use disorder- nicotine cessation education once clinically appropriate Renal: Lab Results Component Value Date CREATSERUM 0.88 03/15/2025 GFR >90 03/15/2025 Baseline Creatinine: 0.88 Baseline GFR: >90 Monitor chemistries Avoid nephrotoxic agents. Electrolyte abnormalities: Hyponatremia- Continue to monitor Hypokalemia - Electrolyte replacement per protocol, Maintain K>4.5 Hypomagnesemia - Electrolyte replacement per protocol, Maintain Mg>3.0 Hypocalcemia - Electrolyte replacement per protocol Hypophosphatemia- Replace as needed for goal phos >2 Gastrointestinal: Current Diet Orders Procedures DIET HEART HEALTHY - 4 GM SODIUM Standing Status: Standing Number of Occurrences: 1 GERD- Continue home PPI Pt. has class I obesity (BMI 30-34.9). Follow with PCP for dietary and lifestyle modifications Body mass index is 30.85 kg/m . Integumentary/Musculoskeletal Active Incisions Wounds - Wound Surgical Open Surgical Incision 03/10/25 1534 Sternum (23) Wound Surgical 03/10/25 1534 Lower;Right Leg (23) Endocrinology 03/11/2025: Hemoglobin A1C HPLC 5.2 Hematology Iron Deficiency Anemia screening Patient does not have anemia (Hgb >12) Lab Results Component Value Date HGB 14.2 04/02/2025 No results found for: "IRON", "TIBC", "TRANSFERRIN", IRONSATURAT Infectious Disease Not concerned for acute infection at this time, patient is afebrile without leukocytosis Complexity Obesity, class I Body mass index is 30.85 kg/m . - Follow with PCP for dietary and lifestyle modifications. Prophylaxis Bundle: HOB: 30 degrees Stress ulcer ppx: [] Yes [] Therapeutic [x] Home regimen [] No, not indicated Chemical DVT ppx: [x] Yes [] No, SCDs ordered Therapy Services: BLOOD TYPER: [] Swallow [] Cognitive Eval [] Speaking Valve [x] N/A Early Mobility: PT/OT consulted: [x]Yes [] No, d/t clinical status [] No, pt is independent Current Mobility Status: independent Meagan Greenwood PA-C Cardiac Surgery [facility] 04/02/2025 [id number] Cosigned by Bony Garcia MD, PhD at 04/02/2025 12:05 PM EDT [facility] 04-02-2025 History and physical note CARDIAC SURGERY HISTORY AND PHYSICAL HPI Mr. Landrum is a 69 y.o. male with a past medical history of smoking, HTN, HLD, CAD s/p PCI to LAD and CABG x3, LAAL with Dr. Bony Garcia on 03/10/25. His postoperative course was uncomplicated and he was discharged on 03/15/25. He presented once to ED for some concerns for poor perfusion to lower extremities (bottoms of feet were purple), duplexes were WNL, but he was prescribed 10days of Keflex for his mildly erythematous SVG sites which he completed. Pt does endorse during this time he had some right neck swelling which has since improved. On 04/01/25 patient had one cigarette (his first since surgery) at 13:00 and he started to have chest pain at 14:45. The pain was during rest, was burning, right sided, and radiated to right bicep. He took some nitroglycerin which he had on hand which relieved the pain for about 20 minutes and then it came back. He took it a second time, showered, and then the pain started to come back once again, so he took a 3rd nitroglycerin on his way to the emergency department which he presented to OSH at 17:00. There was concern of troponin increasing from 36-53 while in the ED so patient was transferred to [facility] for ongoing care. He presents to [facility] on 04/02/2025 asymptomatic, not in any distress, breathing room air and normotensive in a NSR. EKG shows new T wave inversion in aVL & V2. REVIEW OF SYSTEMS: General: Denies recent illness or fever or recent sick contacts Neuro: Denies numbness, tingling, unilateral weakness, or visual disturbances. Cardiac: Denies current chest pain Pulm: Denies dyspnea on exertion, shortness of breath, orthopnea. : Denies burning with urination GI: Denies black or bloody stools. Last BM yesterday morning MSK: Patient states they are physically able and ambulates at baseline without assistance or DME Derm: Denies rashes, wounds, or pressure ulcers Current Outpatient Medications Medication Instructions Acetaminophen (TYLENOL) 650 mg, Oral, EVERY 6 HOURS NEEDED Aspirin 325 mg, Oral, DAILY Atorvastatin (LIPITOR) 20 mg, Oral, DAILY Ezetimibe (ZETIA) 10 mg, Oral, DAILY furOSEmide (LASIX) 40 mg, Oral, DAILY Methocarbamol (ROBAXIN) 500 mg, Oral, EVERY 8 HOURS Metoprolol (LOPRESSOR) 12.5 mg, Oral, 2 TIMES DAILY Multiple Vitamins-Minerals (Multivitamin Gummies Adult) Chew Tab 1 tablet, DAILY oxyCODONE (ROXICODONE) 5 mg, Oral, EVERY 8 HOURS NEEDED pantoprazole (PROTONIX) 20 mg, DAILY Potassium chloride 20 MEQ Tab CR tablet 40 mEq, Oral, DAILY, Take potasium along with Lasix. Stop taking if you no longer on Lasix . PAST MEDICAL HISTORY Past Medical History: Diagnosis Date Arthritis CAD (coronary artery disease) Cardiac angina Congestive heart failure Diverticulitis GERD (gastroesophageal reflux disease) Hyperlipidemia VT (myocardial infarction) Past Surgical History: Procedure Laterality Date CABG W/ ARTERY GRAFT OPEN Midline 03/10/2025 Laterality: Midline; Surgeon: Bony Garcia MD, PhD; Location: [facility] MAIN OR ARTHROPLASTY SHOULDER TOTAL Left 08/14/2022 Laterality: Left; Surgeon: Robin Mcguire MD; Location: [facility] MAIN OR TENODESIS BICEPS LONG TENDON Left 08/14/2022 Laterality: Left; Surgeon: Robin Mcguire MD; Location: [facility] MA[facility] OR ARTHROPLASTY HIP TOTAL ANTERIOR APPROACH Right 07/02/2021 Laterality: Right; Surgeon: Amarjit Marroquin MD; Location: [facility] MA[facility] OR ASPIRATION OR INJECTION LARGE JOINT BURSA Left 07/02/2021 Laterality: Left; Surgeon: Amarjit Marroquin MD; Location: [facility] MAIN OR CORONARY STENT PLACEMENT 2009 MENISCECTOMY Left SHOULDER ARTHROSCOPY Right FAMILY HISTORY Family History Problem Relation Age of Onset Uterine Cancer Mother Heart Disease - Other Mother Heart Disease - Other Father Heart Failure Father Heart Disease - Other Maternal Uncle Myocardial Infarction Maternal Uncle Heart Disease - Other Maternal Grandfather Myocardial Infarction Maternal Grandfather Heart Disease - Other Paternal Grandfather Myocardial Infarction Paternal Grandfather SOCIAL HISTORY reports that he has been smoking cigarettes. He started smoking about 50 years ago. He has a 47.5 pack-year smoking history. He has never used smokeless tobacco. He reports that he does not currently use alcohol. He reports that he does not use drugs. Social History Tobacco Use Smoking Status Some Days Current packs/day: 0.50 Average packs/day: 1 pack/day for 48.3 years (47.5 ttl pk-yrs) Types: Cigarettes Start date: 09/08/1974 Last attempt to quit: 04/30/2021 Smokeless Tobacco Never Tobacco Comments Not a heavy smoker and have quit several times in last 10 years Social History Substance and Sexual Activity Alcohol Use Not Currently Comment: Less than once a week ALLERGIES Allergies Allergen Reactions Penicillins Itching Itching Rosuvastatin Numbness Other reaction(s): Other Simvastatin Other reaction(s): Myalgias, Other Ciprofloxacin Numbness Bactrim [Sulfamethoxazole-Trimethoprim] Hives and Swelling Meloxicam Hives It is tolerable if he uses benadryl. Varenicline Other reaction(s): Mental Status Change Depression PLAN 04/02/2025 Admit to cardiac surgery service under Dr. Bony Garcia - Admission labs including troponin - Pt does not appear fluid overloaded - CXR - Monitor for chest pain - EKG with new T wave inversion in aVL & V2 PHYSICAL EXAM VITALS: Blood pressure 123/82, pulse 78, temperature 97.8 F (36.6 C), temperature source Oral, resp. rate 16, height 1.778 m (5' 10"), weight 97.5 kg (215 lb), SpO2 97%. WEIGHT: Wt Readings from Last 1 Encounters: 04/02/25 97.5 kg (215 lb) General appearance: Alert, cooperative, appears stated age Lungs: Clear bilaterally Heart: Regular rate and rhythm, no murmur noted Abdomen: Soft, non-distended, non-tender Extremities: No lower extremity edema. Bilateral lower extremities are warm and well perfused Skin: Thorough skin exam including chest and bilateral groins complete without any rashes, wounds, or pressure ulcers Neurologic: No gross focal deficits noted Psych: Appropriate mood and affect for clinical situation Incisions: RLE SVG sites intact with mild erythema and induration. Very small amount of serous fluid expressed from distal SVG site upon palpation. MSI intact healing appropriately with minimal erythem SYSTEM BASED PROBLEMS Neurological: \\ Cardiovascular: CAD s/p CABGx3 03/10/25 with new unstable angina Aspirin, statin, beta roberto Monitor for chest pain New T wave inversions in aVL & V2. No ST elevation Trend troponin Hypertension- Continue BB Hyperlipidemia- Continue home statin & zetia Pulmonary: Tobacco use disorder- nicotine cessation education once clinically appropriate Renal: Lab Results Component Value Date CREATSERUM 0.88 03/15/2025 GFR >90 03/15/2025 Baseline Creatinine: 0.88 Baseline GFR: >90 Monitor chemistries Avoid nephrotoxic agents. Electrolyte abnormalities: Hyponatremia- Continue to monitor Hypokalemia - Electrolyte replacement per protocol, Maintain K>4.5 Hypomagnesemia - Electrolyte replacement per protocol, Maintain Mg>3.0 Hypocalcemia - Electrolyte replacement per protocol Hypophosphatemia- Replace as needed for goal phos >2 Gastrointestinal: Current Diet Orders Procedures DIET HEART HEALTHY - 4 GM SODIUM Standing Status: Standing Number of Occurrences: 1 GERD- Continue home PPI Pt. has class I obesity (BMI 30-34.9). Follow with PCP for dietary and lifestyle modifications Body mass index is 30.85 kg/m . Integumentary/Musculoskeletal Active Incisions Wounds - Wound Surgical Open Surgical Incision 03/10/25 1534 Sternum (23) Wound Surgical 03/10/25 1534 Lower;Right Leg (23) Endocrinology 03/11/2025: Hemoglobin A1C HPLC 5.2 Hematology Iron Deficiency Anemia screening Patient does not have anemia (Hgb >12) Lab Results Component Value Date HGB 14.2 04/02/2025 No results found for: "IRON", "TIBC", "TRANSFERRIN", IRONSATURAT Infectious Disease Not concerned for acute infection at this time, patient is afebrile without leukocytosis Complexity Obesity, class I Body mass index is 30.85 kg/m . - Follow with PCP for dietary and lifestyle modifications. Prophylaxis Bundle: HOB: 30 degrees Stress ulcer ppx: [] Yes [] Therapeutic [x] Home regimen [] No, not indicated Chemical DVT ppx: [x] Yes [] No, SCDs ordered Therapy Services: BLOOD TYPER: [] Swallow [] Cognitive Eval [] Speaking Valve [x] N/A Early Mobility: PT/OT consulted: [x]Yes [] No, d/t clinical status [] No, pt is independent Current Mobility Status: independent Meagan Greenwood PA-C Cardiac Surgery [facility] 04/02/2025 [id number] Cosigned by Bony Garcia MD, PhD at 04/02/2025 12:05 PM EDT documented in this encounter [facility] 04-01-2025 Discharge summary [facility] 04-01-2025 Radiology Diagnostic study note [facility] Imaging Services [address] [place], [place] [id number] Chest PA and Lateral MR#: [id number] Acct: [id number] Name: MEIR LANDRUM Rep #: [id number] 5 : 1955 M 69 From: Rebel Bedolla MD PCP: Dr. Pratibha Ronquillo, DO Status: PRE ER Study:Chest PA and Lateral Date of Exam: 04/01/25 Exam# [id number] Ordering Dr: Richie Harding MD PROCEDURE: CHEST PA AND LATERAL 04/01/2025 REASON FOR EXAM: CHEST PAIN TECHNIQUE: CHEST PA AND LATERAL COMPARISON: 12/30/2023. FINDINGS: Prior sternotomy. Left shoulder arthroplasty. The heart is enlarged. The lungs are clear. No acute osseous abnormalities. RAD/Chest PA and Lateral IMPRESSION: NO ACUTE FINDINGS. Reading Location: [id number] CC: Dr. Vince Harding MD; Dr. Pratibha Ronquillo DO ~ Instructional Consultant: Signed [facility] 04-01-2025 Discharge summary Note Date/Time April 01, 2025 11:49pm [facility] Medical Records Department [address] [place] [address] Emergency Department Summary 04/01/25 MR#: [id number] Acct: [id number] Name: MEIR LANDRUM Rep #:[id number] 1 : 1955 69 From: Vince Harding MD PCP: Dr. Pratibha Ronquillo DO Status:REG ER Location: ED HPI History of Present Illness Chief Complaint: Chest Pain Informant: patient Narrative Narrative: 69-year-old male was at rest when he started having nonpleuritic substernal chest discomfort about 2.5 hours ago radiating into his right axilla and upper arm. He had a CABG 1-2 months ago at [facility], so he took a couple of nitroglycerin which improved his symptoms, he now has no chest discomfort and just has the discomfort in his right axilla and upper arm. No other associated symptoms. Hestates this occurred about an hour after he broke down and "bummed a cigarette off of someone and smoked." He now regrets smoking. He denies any other drug or illicit substance use. He has been compliant with his medications which include aspirin and no other antiplatelet or anticoagulants. States otherwise has been doing well until this occurred, breathing well, his chest has not been bothering him with regards to the CABG scar/incision. [facility] Medical History Wears glasses Cancer History of steroid therapy Kidney stones High cholesterol Excessive bleeding Easy bruising Back pain History of diverticulitis Gastric reflux Former smoker Sleep apnea History of stress test Cardiology follow-up encounter History of heart attack Presence of stent in coronary artery (~05/23/09) Atherosclerotic heart disease of [place] coronary artery without angina pectoris Essential hypertension Old myocardial infarction Diverticulitis Arthritis Seasonal allergies Hemorrhoids Hx of squamous cell carcinoma of skin GO (obstructive sleep apnea) Hyperlipidemia CAD (coronary artery disease) Home Medications ?Medication ?Instructions ?Recorded ?Last Taken ?Type nitroglycerin 0.4 mg sublingual 0.4 mg sublingual Q5M PRN Chest 03/27/17 Unknown History tablet Pain pantoprazole 20 mg tablet,delayed 20 mg PO DAILY 02/09 Unknown History release aspirin 81 mg tablet,delayed 81 mg PO DAILY 08/13/21 1 10/23/20 History release (Adult Aspirin Regimen) acetaminophen 500 mg tablet 1,000 mg PO BID 02/18/22 U nknown History naproxen sodium 220 mg tablet 440 mg PO BID 02/18/22 U nknown History ezetimibe 10 mg tablet 5 mg (1/2 x 10 mg) PO .QOD # 45 tabs 09/11/22 Unknown Rx atorvastatin 10 mg tablet 5 mg (1/2 x 10 mg) PO .COMPL EX #45 04/22/23 Unknown Rx tabs Allergy/AdvReac Type Severity Reaction Status Date / Time Penicillins (PCN) Allergy Itching Verified 04/01/25 17:04 ciprofloxacin (From Cipro) AdvReac Intermediate Unknown Verified 04/01/25 17:04 rosuvastatin (From Crestor) AdvReac Other Verified 04/01/25 17:04 simvastatin (From Zocor) AdvReac Other Verified 04/01/25 17:04 Family History Father Hypertension CAD (coronary artery disease) Mother CAD (coronary artery disease) Brother Cancer Skin cancer- Outside of anus Surgical History (Updated 04/01/25 @ 23:[address] Vince Harding MD) Hx of CABG History of coronary artery stent placement Hx of total hip arthroplasty History of colonoscopy (~2017) Presence of coronary angioplasty implant and graft (~05/23/09) Hx of shoulder surgery History of left heart catheterization Hx of knee surgery Social History household members: spouse housing: house Smoking Status: Former smoker second hand exposure: Yes alcohol intake: current alcohol intake frequency: holidays/special occasions only substance use type: does not use caffeine: Yes Type: carbonated beverages Number of servings: 1, coffee Number of servings: 2 and tea Number of servings: 1 what type of physical activity do you participate in: none frequency: does not exercise seatbelt use: always ROS ROS ED Constitutional Constitutional ED: Denies chills, fever(s) or sweats Eyes Eyes: Denies change in vision or diplopia ENT ENT ED: Denies rhinorrhea or sore throat Cardiovascular Cardiovascular: Reports as per HPI, chest pain and radiating jaw, neck or arm pain; Denies leg edema, lightheadedness, palpitations or syncope Respiratory/Chest Respiratory/Chest: Denies cough or dyspnea Gastrointestinal Gastrointestinal: Denies abdominal pain, diarrhea, nausea or vomiting Genitourinary Genitourinary ED: Denies dysuria or hematuria Musculoskeletal Musculoskeletal: Denies back pain or neck pain Integumentary Denies abscess or rash Neurologic Neurologic: Denies headache(s), paresthesias or weakness Psychiatric Psychiatric: Denies suicidal thoughts EXAM Physical Exam Const Vital Signs: 04/01/25 17:03 04/01/25 17:16 04/01/25 17:27 Temperature 98.6 F Temperature Source Oral Pulse Rate 113 H Respiratory Rate 20 H Respiratory Effort Normal Non-Labored Blood Pressure 117/79 Blood Pressure Mean 91 Pulse Ox 98 98 Oxygen Delivery Method Room Air Room Air 04/01/25 18:02 04/01/25 19:14 04/01/25 20:00 Temperature Temperature Source Pulse Rate 83 83 76 Respiratory Rate 13 13 15 Respiratory Effort Blood Pressure 117/82 H 116/83 H 123/79 H Blood Pressure Mean 93 94 93 Pulse Ox 97 97 97 Oxygen Delivery Method Room Air Room Air 04/01/25 21:00 04/01/25 22:00 04/01/25 23:00 Temperature Temperature Source Pulse Rate 90 84 65 Respiratory Rate 16 13 14 Respiratory Effort Blood Pressure 115/74 127/93 H 131/90 H Blood Pressure Mean 87 104 103 Pulse Ox 97 98 97 Oxygen Delivery Method Room Air Room Air Room Air 04/01/25 23:33 Temperature Temperature Source Pulse Rate 74 Respiratory Rate Respiratory Effort Blood Pressure 129/89 H Blood Pressure Mean Pulse Ox Oxygen Delivery Method Positive well nourished and well developed General Appearance ED: well developed and NAD HEENT Reports moist mucous membranes normocephalic and atraumatic Eyes PERRL and EOMs intact bilaterally Neck full ROM and supple Chest Wall Chest Narrative: Well-healing midline chest CABG incision and epigastric wire sites. Resp normal respiratory effort and clear to auscultation bilaterally Cardio regular rate, regular rhythm and no murmurs Rate: Negative for tachycardic Peripheral Pulses: pulses 2+ throughout GI non-tender and non-distended Auscultation: normoactive bowel sounds Palpation: soft Back/Spine no CVA tenderness General Back: other FROM Extremity normal to inspection General Extremety ED: Negative for edema, pulses abnormal or tenderness General Extremity: Negative for edema or pulses abnormal Neuro oriented x3, CN's II-XII intact bilaterally and no sensory deficits noted Sensorium / Orientation: awake and alert Motor Exam: strength 5/5 throughout Skin no rashes or lesions noted and no wounds Heart Score History: Highly Suspicious ECG: Normal Age: >/= 65 years Risk Factors: >/= 3 Risk Factors or History of CAD Troponin: >1 - <3 Normal Limit Score: 7 MDM MDM MDM Narrative Medical decision making narrative: Patient without chest discomfort at this time, and his EKG appears unremarkable. Obtained a 1 view chest x-ray which is normal on my interpretation, and sequential troponin measurements as well as renal function, blood counts. All his labs are normal except for his troponins, which were nonspecifically elevated at 36, at 2 hours 41 and at 4 hours 53. Checked on the patient multiple times during all of this, his chest and axilla/right upper extremity discomfort is all completely resolved and he feels good. His vitals are normal. I think that he should be admitted for further testing. I am concerned about the symptoms. Does not sound like a pulmonary embolus I do not think he needs CT angiography of the chest right now. He and his asked that I discussed with his cardiothoracic surgeon who happened to be on-call at [facility], Dr. Kenny. He advised that they would be happy to take the patient down there, but it wouldalso be reasonable for us to admit him for cardiology consult here. Discussed with the patient and his family, as they see Dr. Arias in [place] for cardiology although he just sees him as an outpatient. Under the circumstances andrecently having surgery and studies at [facility], the patient prefers to go there. Hewas given Lovenox 1 mg/kg as well as 2 baby aspirin, he took a baby aspirin earlier this morning. He received a bed pretty quickly, accepted by the CTS. While waiting for transport, he developed RUE discomfort again. I repeated EKG, on my interpretation it is unchanged compared with his old/prior. Given another nitroglycerin and he had improvement. He is clinically and hemodynamically stable at this time. Awaiting transport. History & Record Review Discussion w/independent historian: Patient and Significant other Lab Data Attestation: I reviewed the patient's lab results. Labs: Laboratory Results - last 24 hr 04/01/25 04/01/25 04/01/25 17:08 19:10 21:08 WBC 10.9 RBC 4.80 Hgb 14.9 Hct 44.1 MCV 91.9 MCH 31.0 MCHC 33.8 RDW Std Deviation 44.5 H RDW Coeff of Lizette 13.1 Plt Count 355 MPV 8.2 Immature Gran % (Auto) 0.600 Neut % (Auto) 58.0 Lymph % (Auto) 20.7 [place] % (Auto) 11.6 H Eos % (Auto) 7.6 H Baso % (Auto) 1.5 H Absolute Neuts (auto) 6.3 Absolute Lymphs (auto) 2.25 Nucleated RBC % 0 Sodium 141 Potassium 4.1 Chloride 103 Carbon Dioxide 22.4 Anion Gap 16 H BUN 16 Creatinine 1.19 Estim Creat Clear Calc 71.42 Est GFR (MDRD) Non-Af 67 BUN/Creatinine Ratio 13.2 Glucose 103 H Calcium 9.6 Troponin T High Sens 36 H Troponin T Hi Sens 2 Hr 41 H Troponin T Hi Sens 4Hr 53 H Radiography Diagnostic Testing: Clinical Impression(s) from Imaging Studies Chest X-Ray 04/01/25 17:40 IMPRESSION: NO ACUTE FINDINGS. Reading Location: [id number] Rhythm Strip Rhythm Strip: Sinus Rhythm Rate: 98 Ectopy: None EKG Initial EKG: Attestation: I personally reviewed and interpreted this EKG as follows: Interpretation: Sinus Rhythm and No Acute Injury Pattern Comments: Nml intervals, leftward axis otherwise nml EKG Follow-up EKG: Attestation: I personally reviewed and interpreted this EKG as follows: (During chest pain recurrence) Interpretation: Sinus Rhythm and No Acute Injury Pattern Comments: Nml intervals, leftward axis otherwise nml EKG Prior: Unchanged Management Discussion w/another healthcare provider: 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 surgery) Discharge Plan Triage Chief Complaint: Chest Pain ED Provider: Vince Harding Dx/Rx/DC Orders Clinical Impression: Chest pain, Elevated troponin, Status post coronary artery bypass graft Prescriptions: No Action pantoprazole 20 mg tablet,delayed release (DR/EC) 20 mg PO DAILY Patient Comments: take 1 tablet by mouth once daily aspirin [Adult Aspirin Regimen] 81 mg tablet,delayed release (DR/EC) 81 mg PO DAILY acetaminophen 500 mg tablet 1,000 mg PO BID nitroglycerin 0.4 MG tablet 0.4 mg SUBLINGUAL Q5M PRN (Reason: Chest Pain) naproxen sodium 220 mg tablet 440 mg PO BID ezetimibe 10 mg tablet 5 mg PO .QOD Qty: 45 3RF atorvastatin 10 mg tablet 5 mg PO .COMPLEX Qty: 45 3RF Rx Instructions: 5 mg PO every other day; Primary Care Provider: Pratibha Ronquillo Referrals: Pratibha Ronquillo DO [Primary Care Provider] - Print Language: Georgian What to do if you have Problems For any increased pain, shortness of breath, bleeding, nausea or vomiting, chestpain, or any unexpected problems, contact your Primary Care Provider. Call [facility] ([phone]) or report to the closest Emergency Room. Call 911 if necessary. 04/01/25 [id number] <Electronically signed by Vince Harding MD> Cosigner Signature (if applicable): CC: Dr. Pratibha Ronquillo DO ~ Signed [facility] Work Phone: [phone] Miscellaneous Notes* Nursing Notes - Reanna Souza RN - 03/15/2025 2:26 PM EDT Patient discharged to home. Iv discontinued and telemetry per policy. Patient AVS reviewed with patient and questions answered. Patient's here to transport patient home. Report called to home health agency [facility]. Also MATILDE, AVS and discharge summary faxed to [facility] #[phone]. Fax confirmation received. * Nursing Notes - Reanna Aviles RN - 03/15/2025 11:53 AM EDT 03/15/25 1153 Patient Choice for Post-Acute Providers Resumption of care? No Establishing care? Yes Level of care for choice Home Health Care Preferred geographic region Discussed and honored Source of list Aidin List was provided to Patient Method of delivery In Person Is the provider part of a joint venture or have a financial relationship with discharging hospital?No Reserved Provider: [address], [address] [place] [address] Reanna Ramírez RN, MSN, CNOR Clinical Application Technician * Plan of Care - Navi Davis OT - 03/15/2025 10:46 AM EDT Problem: OT - ADLs Goal: Upper Body Dressing - Patient will complete upper body dressing task seated in chair with modified independence using adaptive equipment/compensatory strategies as needed for improved ability to complete self-care activities. Outcome: Progressing Goal: Lower Body Dressing - Patient will complete lower body dressing tasks with modified independence using adaptive equipment/compensatory strategies as needed for improved ability to complete self-care activities. Outcome: Progressing Problem: OT - Other Goal: Precaution Adherence - Patient will demonstrate 100% adherence to precautions during all ADLsand functional transfers to promote safety during daily routine. Outcome: Progressing Problem: OT - ADLs Goal: Toileting - Patient will complete toileting task with modified independence and adaptive equipment as needed for improved ability to safely complete self-care activities. Outcome: Met Goal: Bathing - Patient will perform full body bathing routine with modified independence while seated for improved ability to complete self-care activities Outcome: Met Problem: OT - Transfers Goal: Transfers Toilet/ Bedside Commode - Patient will transfer to/from toilet/bedside commode withmodified independence for improved ability to safely complete ADLs. Outcome: Met * Plan of Care - Xiao Ballard RD - 03/14/2025 2:03 PM EDT Problem: Oral Intake Inadequate Goal: Improved Oral Intake Outcome: Progressing Nutrition Recommendations and Plan of Care: 1. Liberalize to a Heart Healthy Diet - no hx of DM 2. Discontinued Ensure Plus (350kcal, 13g pro, 51g CHO). Will send Ensure Clear (240kcal, 8g pro, 52g CHO) TID for additional kcal & pro. 3. Nutrition will continue to follow per policy and assess more frequently if needed * Nursing Notes - Vannesa De Leon RN - 03/14/2025 9:45 AM EDT Removed pt's Left Pleural (#3) Chest Tube per Abiodun Capone APRN-FLORINA orders; educated/explained procedure to pt prior to removal; pt agreeable; pt tolerated chest tube removal well; instructed pt to notify staff for any new CP/SOB; call light provided and within reach; encouraged pt to use call light for any need/assistance; no signs of acute distress noted at this time; POC discussed with Primary RN Vannesa De Leon RN who will continue to closely monitor. * Plan of Care - Vannesa De Leon RN - 03/14/2025 7:42 AM EDT Problem: Adult Inpatient Plan of Care Goal: Plan of Care Review Outcome: Progressing - plan of care reviewed with patient Goal: Patient-Specific Goal (Individualized) Outcome: Progressing Goal: Absence of Hospital-Acquired Illness or Injury Outcome: Progressing Goal: Optimal Comfort and Wellbeing Outcome: Progressing - patient sitting comfortably in chair Goal: Readiness for Transition of Care Outcome: Progressing Problem: CABG/Valve (Adult) Goal: Signs and Symptoms of Listed Potential Problems Will be Absent or Manageable Description: Signs and symptoms of listed potential problems will be absent or manageable by discharge/transition of care. Outcome: Progressing Goal: Fluid Balance Description: Patient will demonstrate the desired outcomes by discharge/transition of care. Outcome: Progressing Problem: Swallowing Impairment Goal: Optimal Eating/Swallowing without Aspiration Outcome: Progressing - patient tolerating diet * Plan of Care - Vannesa De Leon RN - 03/13/2025 4:23 PM EDT Problem: Adult Inpatient Plan of Care Goal: Plan of Care Review Outcome: Progressing Goal: Patient-Specific Goal (Individualized) Outcome: Progressing Goal: Absence of Hospital-Acquired Illness or Injury Outcome: Progressing Goal: Optimal Comfort and Wellbeing Outcome: Progressing Goal: Readiness for Transition of Care Outcome: Progressing Problem: CABG/Valve (Adult) Goal: Signs and Symptoms of Listed Potential Problems Will be Absent or Manageable Description: Signs and symptoms of listed potential problems will be absent or manageable by discharge/transition of care. Outcome: Progressing Goal: Fluid Balance Description: Patient will demonstrate the desired outcomes by discharge/transition of care. Outcome: Progressing Problem: Swallowing Impairment Goal: Optimal Eating/Swallowing without Aspiration Outcome: Progressing * Nursing Notes - Joselyn Lacey RN - 03/13/2025 10:43 AM EDT Procedure: Chest Tube Removal Performed by: Joselyn Lacey RN Chest Tube Removed: right pleural and mediastinal Indications: Chest Tube: Overall drainage of the tube is less than 200 mL over 24 hours or decreasing volumes with less than 75 mL in the last 8 hours/vitals check Pre-Procedure Details: If nurse performing procedure, is the order in the chart: yes Procedure Details: Procedure was reviewed with the patient. Questions were answered and patient was given time to address concerns. Chest tube(s) were confirmed on water seal Patient was placed in a supine position. Bandages and stabilizing suture(s) were removed. No bleeding noted. Aseptic Technique was used throughout the procedure. The patient tolerated the procedure well. No complications were identified. Post-Procedure Details: BRYSON notified of procedure completion. Portable chest X-ray is ordered and is pending. Joselyn Lacey RN NURSING OFFICER * Plan of Care - Martín Larios RN - 03/12/2025 3:13 AM EDT Problem: Adult Inpatient Plan of Care Goal: Plan of Care Review Outcome: Progressing Goal: Patient-Specific Goal (Individualized) Outcome: Progressing Goal: Absence of Hospital-Acquired Illness or Injury Outcome: Progressing Goal: Optimal Comfort and Wellbeing Outcome: Progressing Goal: Readiness for Transition of Care Outcome: Progressing Problem: CABG/Valve (Adult) Goal: Signs and Symptoms of Listed Potential Problems Will be Absent or Manageable Description: Signs and symptoms of listed potential problems will be absent or manageable by discharge/transition of care. Outcome: Progressing Goal: Fluid Balance Description: Patient will demonstrate the desired outcomes by discharge/transition of care. Outcome: Progressing Problem: Swallowing Impairment Goal: Optimal Eating/Swallowing without Aspiration Outcome: Progressing Problem: Mechanical Ventilation Invasive Goal: Effective Communication Outcome: Completed Goal: Optimal Device Function Outcome: Completed Goal: Mechanical Ventilation Liberation Outcome: Completed Goal: Optimal Nutrition Delivery Outcome: Completed Goal: Absence of Device-Related Skin and Tissue Injury Outcome: Completed Goal: Absence of Ventilator-Induced Lung Injury Outcome: Completed * Plan of Care - Abhijit Lane PT - 03/11/2025 10:14 AM EDT Problem: PT - General Goals Goal: Supine <-> Sit Transfers - Patient will perform supine to/from sit transfers with independence and without use of hospital bed features in order to improve functional mobility and safety. Outcome: Progressing Goal: Sit <-> Stand Transfers - Patient will perform sit to/from stand transfers with independence in order to improve functional mobility and safety. Outcome: Progressing Goal: Ambulation - Patient will ambulate 250 feet with modified independence with/out an assistive device to improve ability to safely navigate home and community. Outcome: Progressing Goal: Precautions - Patient will successfully adhere to post-operative precautions during 100% of functional mobility without verbal cueing in order to maintain safety and reduce risk of injury. Outcome: Progressing * Plan of Care - Navi Davis OT - 03/11/2025 9:54 AM EDT Problem: OT - ADLs Goal: Upper Body Dressing - Patient will complete upper body dressing task seated in chair with modified independence using adaptive equipment/compensatory strategies as needed for improved ability to complete self-care activities. Outcome: Progressing Goal: Lower Body Dressing - Patient will complete lower body dressing tasks with modified independence using adaptive equipment/compensatory strategies as needed for improved ability to complete self-care activities. Outcome: Progressing Goal: Toileting - Patient will complete toileting task with modified independence and adaptive equipment as needed for improved ability to safely complete self-care activities. Outcome: Progressing Goal: Bathing - Patient will perform full body bathing routine with modified independence while seated for improved ability to complete self-care activities Outcome: Progressing Problem: OT - Transfers Goal: Transfers Toilet/ Bedside Commode - Patient will transfer to/from toilet/bedside commode withmodified independence for improved ability to safely complete ADLs. Outcome: Progressing Problem: OT - Other Goal: Precaution Adherence - Patient will demonstrate 100% adherence to precautions during all ADLsand functional transfers to promote safety during daily routine. Outcome: Progressing * Plan of Care - Yuliana Alvarado MD - 03/10/2025 8:01 PM EDT Cardiac surgery post-op plan of care CABGx3 (ARORA-LAD, SVG-OM, SVG-PDA), LAAL V wires Chest tubes: Anterior mediastinal straight Diaphragm mediastinal angled L pleural angled Plans: Chest tube removal: per protocol Wire removal: CUT at time of removal Arterial line: L fem, radial due to unreliable radial Antiplatelet: Asa Anticoagulation: none Yuliana Alvarado MD Cardiothoracic Surgery, Fellow * Brief Op Note - Yuliana Alvarado MD - 03/10/2025 7:59 PM EDT Meir Landrum ([id number]) PRE OPERATIVE DIAGNOSIS 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 [I25.119] POST OPERATIVE DIAGNOSIS 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 [I25.119] PROCEDURE PERFORMED Procedure(s) (LRB): CABG X3 (BIMA, SVG) (Midline) PRIMARY CLOSURE Yes INTRAOPERATIVE FINDINGS CABGx3 (ARORA-LAD, SVG-OM, SVG-PDA), LAAL V wires Chest tubes: Anterior mediastinal straight Diaphragm mediastinal angled L pleural angled Plans: Chest tube removal: per protocol Wire removal: CUT at time of removal Arterial line: L fem, radial due to unreliable radial Antiplatelet: Asa Anticoagulation: none SURGEON Surgeons and Role: * Bony Garcia MD, PhD - Primary ANESTHESIOLOGIST Anesthesiologist: Elena Skaggs MD; Michael Green MD; Lillian Borges MD Cross Tie Turner Assisting: Elbert Crabtree MD; Sona Kunz MD; America Gomez MD Rigging Loft Repairer: Eliseo Retana; Bibiana Archer SURGICAL STAFF Energy Management Specialist: Chelsea Grewal RN Registered Nurse Location Man: Luis Martinez RN Relief Energy Management Specialist: Toya Thompson, MICHELLE; Tyler Denise, MICHELLE; Agatha Solomon, MICHELLE Relief Scrub: Mellisa Olvera, MICHELLE Scrub Person: Naomi Villar Fellow: Yuliana Alvarado MD Sorter Pricer: Adam Urena COMPLICATIONS None ESTIMATED BLOOD LOSS Unable to calculate due to CPB SPECIMENS See below ID Type Source Tests Collected by Time Destination 1 : Left atrial appendage Permanent SURG PATH SURG PATH REQUEST Bony Garcia MD, PhD 03/10/2025 1718 Yuliana Alvarado MD March 10, 2025 7:59 PM Cosigned by Bony Garcia MD, PhD at 03/12/2025 6:45 PM EDT * Op Note - Bony Garcia MD, PhD - 03/10/2025 12:00 PM EDT Operative Report DATE PERFORMED: 03/10/2025 PREOPERATIVE DIAGNOSIS: Three-vessel coronary artery disease. POSTOPERATIVE DIAGNOSIS: Three-vessel coronary artery disease. PROCEDURES PERFORMED: 1. Coronary artery bypass graft x3 with left internal mammary artery to left anterior descending artery, reverse saphenous vein graft to obtuse marginal branch and a separate reverse saphenous vein graft to the posterior descending artery. 2. On-pump cardiopulmonary oxygenator. 3. Ligation of left atrial appendage. 4. Endoscopic recovery of left greater saphenous vein. 5. Placement of a left femoral artery 5-Algerian sheath for hemodynamic monitoring and access. 6. Placement of negative pressure wound VAC over closed incision. SURGEON(S): Bony Garcia MD, PhD. [facility] ASSISTANTS: 1. CORTNEY Alas. 2. Yuliana Alavrado MD. DESCRIPTION OF PROCEDURE: After discussion in which indications, risks, benefits and alternatives were explained, informed consent was obtained. Of note, Mr. Landrum was smoking up until the day of surgery. He was having unstable anginal symptoms, so we opted to proceed with the operation, though between this and his diabetes aborted the use of bilateral mammaries. He was taken to the operating room, placed supine position. After general endotracheal anesthesia was administered by cardiac anesthesiologist and appropriate monitoring. His neck, chest, groins, and legs were scrubbed, prepped and draped in the usual sterile fashion after a pause for patient and procedure identification were performed and completed, and receiving appropriate preoperative antibiotics, median sternotomy was in a standard fashion. Electrocautery and bone wax was used for hemostasis. Left diallo-sternum was elevated. Left internal mammary artery was mobilized at the origin below the costal margin with electrocautery and Ligaclip being used for hemostasis. Left pleura was entered intentionally. Concurrent to this, left greater saphenous vein was procured using standard endoscopic technique. Once it was mobilized, brought outside the body, retrograde cannulated and flushed. Branches were secured with Ligaclip and/or suture. At the end of the procedure leg incisions were closed in multiple layers of absorbable suture wrapped with sterile Pedrito bandage. At this point, our radial arterial line became damped and was unable to draw back. We were asked by our anesthesiologist to place the left femoral 5-Algerian sheath, which we did using percutaneous Seldinger technique, as well as for hemodynamic monitoring and access through the remainder of case. After the conduit was mobilized systemic dose of heparin was given. The distal portion of the mammary was transected, spatulated, made hemostatic with a vinson dog occluder. Regular sternal retractor was introduced, sternum was spread. Pericardium was incised to the diaphragm and the innominate vein with lateral extensions being retracted with pericardial stay stitches. Standard aortic and dual-stage venous cannulation was performed, as well as ascending aortic root vent. After appropriate HD cardiopulmonary bypass was initiated and full flows achieved, respirations were ceased. Aortic crossclamp was introduced. Antegrade cardioplegia was given. A prompt arrest was achieved. Myocardial protection was facilitated with topical ice-cold poured saline given to the anterior surface of the heart, as well as mild systemic cooling. After cardioplegia was given, we turned our attention to the inferior wall. The PDA was identified, incised both proximally and distally, and reverse saphenous vein graft was anastomosed in end-to-side fashion using a running 7-0 Prolene suture. Prior to completing the anastomosis, toe and heel were probed with a linear probe to ensure patency. The antegrade cardioplegia was given in the vein demonstrated good flow and hemostasis. Heart returned to normal position. Vein was cut to appropriate length and we gave antegrade cardioplegia down the aortic root. We then turned our attention to the lateral wall. Obtuse marginal branch was identified and incised both proximally and distally. The reverse saphenous vein graft anastomosed to the obtuse marginal in end-to-side fashion using running 7-0 Prolene suture. Prior to completing the anastomosis, toe and heel were probed with a linear probe to ensure patency. Antegrade cardioplegia down the vein demonstrated good flow and hemostasis. Heart returned to normal position. We gave antegrade cardioplegia down the aortic root. Then we exposed the anterior wall. The LAD was incised, probed proximally and distally, and left internal mammary artery was anastomosed in end-to-side fashion running 7-0 Prolene suture. Prior to completing the anastomosis, toe and heel were probed with a linear probe to ensure patency. Vinson occluder was removed demonstrating blush of blood distally. Good hemostasis was confirmed with MiraQ flow probe. The vinson occluder was reapplied, we gave antegrade cardioplegia down the aortic root. Two aortotomies were made, punched 4 mm in diameter. The veins were anastomosed to respective aortotomy in end-to-side fashion using running 6-0 Prolene suture. Proximal marking washer was replaced. Aortic cross-clamp was removed with de-airing through the root vent. Epicardial and ventricular pacing wires were placed, we confirmed flow with MiraQ flow probe. We checked for hemostasis, resumed ventilations, and weaned from cardiopulmonary bypass. Once off bypass and good hemostasis, the venous cannula was removed. After appropriate de-airing, the root vent was removed. We then finalized flow with MiraQ flow probe and the protamine sulfate was administered. After cardiotomy blood returned to him, the aortic cannula was removed as well. The anterior mediastinum was irrigated. The sternum was reapproximated using interrupted sternal wires. Multiple layers of absorbable sutures were placed and negative pressure wound VAC was placed over closed incision. Cardiopulmonary bypass time was 96 minutes. Cross-clamp time was 83 minutes. Flow in the ARORA to LAD was 37 cc/minute on pump and 23 cc/minute with PI 2.3 off pump. Flow in the vein to obtuse marginal branch of 36 cc/minute. The PI of 2.5 and the vein to the PDA was 29 cc for the PI of 2.9. Dictated By: Bony Garcia MD, PHD Bony Garcia MD, PHD ATTENDING BENNY/Gaby JOB: [id number] DOC: [id number] [facility]* Nursing Notes - Reanna Souza RN - 03/15/2025 2:26 PM EDT Patient discharged to home. Iv discontinued and telemetry per policy. Patient AVS reviewed with patient and questions answered. Patient's here to transport patient home. Report called to home health agency [facility]. Also MATILDE, AVS and discharge summary faxed to home health agency #[phone]. Fax confirmation received. [facility]07-08-2025 History of Present illness Narrative* Reanna Aviles RN - 03/15/2025 12:38 PM EDT Final Discharge Planning and Transportation Final Discharge Planning Selected Continued Care - Admitted Since 03/10/2025 Home Medical Care Coordination complete. Service Provider Services Address Phone Fax Patient Preferred [facility] Home Nursing, Home Rehabilitation [address], [address], [facility] [id number] [phone] -- Discharge Instructions for Bedside RN: 1. Print off MATLIDE (Continuity of Care) 2. Print off AMBULATORY order (found toward top of MATILDE) 3. Print off AVS 4. Print off Discharge Summary, if available 5. Fax all to agency/vendor 6. Call report to agency/vendor Plan Patient is medically stable for discharge to home per physician/ medical team AVS completed and recommendations for requested follow up are in place Primary nurse is aware of plan to discharge Application Technician informed patient/ family that they will need to make the necessary appointments that are placed on the AVS by the primary team [facility]:reserved and updated in [facility] DME: none Follow up appointments appear to be made No further needs from CM for discharge Transportation Family/ private vehicle CM had conversation with patient/caregiver related to specialty care follow-up. Barriers identified: None Outpatient CM was not contacted related to barriers Reanna Ramírez RN, MSN, CNOR Clinical Application Technician * Navi Davis OT - 03/15/2025 10:46 AM EDT Acute Occupational Therapy Treatment Prior Gross Functional Mobility: independent Current AM-PAC score(s): CURRENT AM-PAC Activity Raw Score: 22 Based on the above AM-PAC score(s), and OT clinical judgment, discharge destination recommendation is: Home Mobility equipment available at home: straight cane, front-wheeled walker, none used ADL equipment available at home: grab bars Equipment recommendations for discharge: none Equipment issued: none Current therapy frequency recommendation(s) in acute: 3 times a week Precautions and Weightbearing Status: OT Existing Precautions/Restrictions: standard sternal, cardiac Lines/Tubes/Drains (Rehab Status): Telemetry Patient Safety Communication Prior to Visit: Nursing Current brace/orthoses: (sternal binder on) Subjective: That shower felt so good. Thank you. Pain: General Pain Documentation (Adult, OB, Peds) Presence of Pain: denies pain/discomfort Presence of Pain Score (Auto-calculated): 0 DVPRS (Defense and Veterans Pain Rating Scale) DVPRS: Rest: 0- no pain DVPRS: Activity: 0- no pain Objective/Observation: Vitals/Vitals Responses to Treatment: Vitals WFL with no abnormal signs or symptoms reported or observed throughout session. O2 Device: room air Cognition Overall Cognitive Status: Within Functional Limits Arousal/Alertness: Appropriate responses to stimuli Orientation Level: Oriented X4 Following Commands: Follows all commands and directions without difficulty Safety Judgment: Good awareness of safety precautions Awareness of Errors: Good awareness of errors made Deficits: Fully aware of deficits Attention Span: Appears intact Memory: Appears intact Problem Solving: Able to problem solve independently Cognition Comments: pleasant and cooperative ADL Assessment/Intervention: ADLs: Eating Assistance: Grooming Assistance: Independent Grooming Location: standing at sink Grooming Deficit: Increased time to complete, Activity tolerance, Generalized weakness Grooming Skilled Rationale (Verbal/Tactile/Visual/Demonstration): Compensatory techniques, Energy Conservation Grooming Intervention/Details: oral care, shaving Bathing Assistance: Modified independent Bathing Location: standing in shower Bathing Deficit: Increased time to complete, Activity tolerance, Generalized weakness Bathing Skilled Rationale (Verbal/Tactile/Visual/Demonstration): Compensatory techniques, Techniqueof activity Bathing Intervention/Details: Patient educated on sternal surgical incision care, including: utilizing 2 fingers to gently massage incision with antibacterial soap, not spraying water directly onto incision, and utilizing clean, dry towel to gently pat incision dry. Therapist also instructed pt to a void using lotions, oils, or cologne/perfume around incision. Pt instructed to avoid pushing/pulling on grab bars in bathroom to maintain sternal precautions while utilizing shower chair for energy conservation, and utilizing rest breaks between high MET level tasks throughout the day. Pt completed bathing task in standing. Pt verbalized understanding and demonstrated the ability to wash hair/head/face, bilat UE (including underarm), abdomen, back, perineal area, buttocks, bilat upper leg, bilat lower leg (including foot), and incision care with set-up. Pt verbalized understanding of energy conservation techniques and demonstrated understanding of sternal precautions via teach back method. UE Dressing Assistance: Minimal UE Dressing Location: seated in chair UE Dressing Deficit: Pull around back, Increased time to complete, Activity tolerance, Generalized weakness UE Dressing Skilled Rationale (Verbal/Tactile/Visual/Demonstration): Compensatory techniques, Cues for increased safety, Technique of activity UE Dressing Intervention/Details: Pt educated on modified upper body dressing task to promote adherence of sternal precaution during this ADL task. Pt demonstrated threading RUE, threading LUE, and pulling around back with set-up. Patient educated on proper process and procedure of donning/doffing post-thorax sternal binder. Patient required minimum A to thread BUE into vest and manage velcro/moy. Patient receptive via teach back method. LE Dressing Assistance: Minimal LE Dressing Location: seated in chair, standing LE Dressing Deficit: Don/doff R sock, Increased time to complete, Activity tolerance, Generalized weakness, SOB LE Dressing Skilled Rationale (Verbal/Tactile/Visual/Demonstration): Compensatory techniques, Cues for increased safety, Technique of activity LE Dressing Intervention/Details: Pt educated on the safety techniques of completing LE seated to decrease risk of falls and then donning underwear and pants and only standing once for energy conservation; pt verbalized and demonstated good understanding. Toilet Assistance: Modified independent Toileting Location: toilet Toileting Deficit: Increased time to complete Toilet Skilled Rationale (Verbal/Tactile/Visual/Demonstration): Compensatory techniques Toileting Intervention/Details: Pt educated on modified techniques to achieve more access to perineal area during toileting hygiene, including: twisting through abdomen with a lateral side bend. Pt verbalized and demonstrated understanding. Extremity Assessments: See OT Evaluation flowsheet for Extremity Measurement updates. Balance: Sitting Balance Static Sitting-Level of Assistance: Independent Dynamic Sitting-Level of Assistance: Independent Standing Balance Static Standing-Level of Assistance: Independent Dynamic Standing-Level of Assistance: Independent Skin and Edema: Skin Integrity Skin Integrity Description: Surgical incision Edema Edema: present Location: [facility] Mobility Assessment/Intervention: Transfer Assessment/Intervention: Sit to Stand Transfer Wall Level: Sit->Stand: modified independence Assistive Device: Sit->Stand: armed chair Skilled Rationale: Cues for precaution adherence Skilled Intervention/Details: Sit->Stand: from recliner Stand to Sit Transfer Wall Level: Stand->Sit: modified independence Assistive Device: Stand->Sit: armed chair Skilled Rationale: Verbal cues, Cues for precaution adherence Toilet Transfer Wall Level: Toilet: modified independence Assistive Device: Toilet: grab bars Skilled Rationale: Verbal cues, Cues for precaution adherence Functional Mobility: Functional Mobility Wall Level: Functional Mobility/Gait: modified independence Functional Mobility Distance: Distance needed to access restroom Ambulation Distance (Feet): 30 Functional Mobility Deficits: Activity tolerance Functional Mobility Skilled Rationale: Energy conservation Outcome Score(s): CURRENT [facility] Daily Activity Inpatient Short Form Putting on/Taking Off Lower Body Clothin - A Little Assistance Bathin - No Assistance Toiletin - No Assistance Putting on/Taking Off Upper Body Clothin - A Little Assistance Groomin - No Assistance Eatin - No Assistance CURRENT [facility] Activity Raw Score: 22 CURRENT -[facility] Activity Functional Limitation/Modifier: 25.80% Currently Impaired in Daily Activity- CJ Interventions: Assessment & Plan: Pt making excellent progress towards established plan of care. Patient improving with incision care, grooming, bathing, lower body dressing, upper body dressing, toileting, adherence to precautions, functional transfers, and functional activity tolerance as seen above, however continues to be limited by endurance deficits, impaired balance/strength, and impaired mobility compared to baseline. Pt would benefit from additional OT services at this time, and at discharge to increase independence with functional mobility. Pt educated on precautions on this date. Patient Instruction/Education this session: Learners: Patient Education provided: Precautions/weight bearing status Patient Instruction/Education comments: Pt recalled 100% of standard sternal precautions including no pushing, pulling, or lifting more than 10 lbs and not reaching overhead or behind back for both arms, for 6 weeks. Pt also educated on precautions throughout functional mobility and self-care tasks this date to improve learning/carryover for task. Pt demonstrates fair+ understanding. Plan for next session: review shower protocol prn Acute OT Goals Plan of Care by Navi Davis OT at 03/15/2025 10:46 AM Version 1 of 1 Problem: OT - ADLs Goal: Upper Body Dressing - Patient will complete upper body dressing task seated in chair with modified independence using adaptive equipment/compensatory strategies as needed for improved ability to complete self-care activities. Outcome: Progressing Goal: Lower Body Dressing - Patient will complete lower body dressing tasks with modified independence using adaptive equipment/compensatory strategies as needed for improved ability to complete self-care activities. Outcome: Progressing Problem: OT - Other Goal: Precaution Adherence - Patient will demonstrate 100% adherence to precautions during all ADLsand functional transfers to promote safety during daily routine. Outcome: Progressing Problem: OT - ADLs Goal: Toileting - Patient will complete toileting task with modified independence and adaptive equipment as needed for improved ability to safely complete self-care activities. Outcome: Met Goal: Bathing - Patient will perform full body bathing routine with modified independence while seated for improved ability to complete self-care activities Outcome: Met Problem: OT - Transfers Goal: Transfers Toilet/ Bedside Commode - Patient will transfer to/from toilet/bedside commode withmodified independence for improved ability to safely complete ADLs. Outcome: Met OT treatment consisted of the following to work and progress towards the above goal(s): OT Evaluation and Treatment Time Self Care/Home Management (ADLs) Time Entry: 39 Treating Therapist: Navi Davis OT Additional Details: OT Co-Eval/Treatment Information Co-evaluation/co-treatment performed?: No simultaneous skilled care performed PPE used during patient interaction: gloves Patient location at end of session: chair, lines intact, RN aware Alarms on at end of session: none Needs in reach. Time In: 1046 Time Out: 1125 Total Visit Time: 39 minutes Total Treatment Time (skilled, billable minutes): 39 minutes Upon discontinuation of Acute Care Occupational Therapy Services or patient discharge from the hospital this note represents the current Occupational Therapy Discharge Summary. * Ely Kohlerley - 03/15/2025 9:36 AM EDT Inpatient Cardiopulmonary Rehab Follow Up Visit AND Activity Session Completed. RN approved, as tolerated, and patient agreeable to visit. Patient reports feeling fine without complaints. Activity Session Vitals: 03/15/25 0928 03/15/25 0936 Vital Signs Pulse (Heart Rate) 79 (Rest) 75 (Post-amb) Heart Rate Source Monitor Monitor BP 124/83 130/76 MAP (mmHg) 99 mmHg 100 mmHg BP Method Automatic Automatic BP Location Left arm Left arm BP Position Sitting Sitting O2 Sat (%) 94 % 95 % O2 Device room air room air Activity/Level of Assistance Amb in rojo/ CGA, 4WW Ambulation Distance (feet) 430 Symptoms Noted During/After Activity Mild SOB Positioning Seated in chair, call light within reach telemetry all intact upon leaving the room Activity session details: Patient agreeable to activity and tolerated well. Upon rehab team entering room, patient requested to ambulate 30 ft to the restroom with no symptoms. Patient then [id number] ft in the rojo with mild SOB. Patient left seated comfortably in chair. Encouraged continued ambulation. RN notified/aware. Encouraged continued ambulation and discussed appropriate activity progression. Discharge education reviewed with the patient. Patient s questions/concerns addressed. Ely Quezada Inpatient Cardiopulmonary and Vascular [employer] Meagan Villalobos MS ([phone]) Inpatient Cardiopulmonary & Vascular Rehab Cosigned by Meagan Villalobos at 03/15/2025 12:27 PM EDT Associated attestation - Meagan Villalobos - 03/15/2025 12:27 PM EDT I, Meagan Villalobos MS, provided direct guidance in the room during this patient care session. I attest that all documentation reflects accurate skilled clinical decisions and judgements. Meagan Villalobos ([phone]) Inpatient Cardiopulmonary & Vascular Rehab * Reanna Aviles RN - 03/15/2025 8:26 AM EDT Care Management Progress Note HHC referrals placed in AIDIN. CM to follow up with patient when choice list is available. Reanna Ramírez RN, MSN, CNOR Clinical Application Technician * GREY Armando - 03/14/2025 4:32 PM EDT Occupational Therapy Attempt Note 03/14/2025 OT Therapy Completed: Attempted Attempted Reason: Patient is unavailable due to test/procedure (CXR). OT will continue to follow and re-attempt as able and appropriate. 03/14/25 1632 Time In/Out Time In 1632 Time Out 1632 Total Visit Time 0 minutes Total Treatment Time (skilled, billable minutes) 0 minutes OT Therapy Completed Attempted GREY Armando Time In: 1632 Time Out: 1632 Total Visit Time: 0 minutes Total Treatment Time (skilled, billable minutes): 0 minutes Cosigned by Navi Davis OT at 03/15/2025 5:26 AM EDT * Gordon Randolph PT - 03/14/2025 1:19 PM EDT Physical Therapy Attempt Note 03/14/2025 PT Therapy Completed: Attempted-pt ambulating in the hallway with nursing staff at this time. Will re-attempt PT session as pt is medically appropriate and schedule permits. Gordon Randolph PT Time In: 1319 Time Out: 1319 Total Visit Time: 0 minutes Total Treatment Time (skilled, billable minutes): 0 minutes * SYLVIE Chandra - 03/14/2025 12:33 PM EDT CARDIAC SURGERY DAILY PROGRESS NOTE. HISTORY OF PRESENT ILLNESS: Mr. Landrum is a 69 y.o. male who has a pertinent past medical history including former tobacco use, HTN, HLD, CAD s/p PCI to LAD 2008, with multivessel CAD. DATE OF SURGERY: 03/10/25 PROCEDURE: CABG X3 (BIMA, SVG) (Midline) , LAAL SURGEON: Dr. Bony Garcia POD: 4 Code Status:Full Code 24-hour interval history: O major events overnight Plan for 03/14/2025: Remove LEFT Pleural CT Hold amiodarone and BB d/t bradycardia post op CXR PA lateral OT consult for shower Lasix 40 mg daily Wean off Oxygen Pulmonary hygiene PT/OT/OOB Discharge Planning/NICOLE/Discharge Readiness: Anticipated, Discharge to home with home health. Follow up: Emailed Imaging follow up plan: Chest x-ray - Ordered Ambulatory referral to cardiac rehab order placed:Yes Dr. Bony Garcia recommends home health services upon discharge including PT, OT, and residential as indicated SURGICAL PLAN Pre-op [place]: Exam prior to CABG 1. LV: normal size and function; EF 55%; GLS -17.5%; LVH (17mm) 2. RV: normal size and function 3. No significant valvular disease 4. Mild pericardial effusion 5. NO PFO 6. No clot LI 7. Significant atherosclerosis of descending aorta (5 mm) Post-op [place]: POST-INTERVENTION SUMMARY S/p CABG - Cardiac chambers were evaluated for air and to assess need and success of venting maneuvers. - LV function 55-60% with no notable regional wall motion abnormalities. - Preserved RV function - No evidence of hemodynamically significant valvular dysfunction - No evidence of intracardiac thrombus - No evidence of aortic dissection Chest Tube Mgmt: Right pleural - removed Left pleural Mediastinal - removed Plan for today: Remove Left pleural Pacing Wires: Ventricular Plan: cut and removed on 03/11 Sutures/Blas Plan: Prevena - Remove on POD 4 PA/LAT Chest X-ray: Ordered OT shower complete? Ordered on 03/14, but not completed. SYSTEM BASED PLAN . Neurological: Acute Post-Operative Pain -- Scheduled robaxin, Lidocaine patches around CT sites PRN Acetaminophen and Oxycodone Cardiovascular: CAD s/p CABG x 3 on 03/10 Aspirin Holding Metoprolol 12.5mg bid d/t recent bradycardia Hypertension- SBP goal <140 Home medications: metoprolol held post op Hyperlipidemia- start home statin. Atorvastatin and ezetimibe started Prophylactic Antiarrythmic: Yes - Amiodarone - holding d/t bradycardia overnight 03/12 Anticoagulation Status/Plan - None Antiplatelet Status/Plan - Indication: CAD - Medication(s)aspirin 325 mg Pulmonary: Acute Respiratory insufficiency - improving Maintain O2 Sat > 92% with oxygen as needed On 1 liters NC Wean supplemental oxygen/support as able. Incentive Spirometry while awake Plan: Pulmonary toilet/diuresis Renal: Acute Kidney Injury- Resolved Baseline Creatinine: 1 Baseline GFR: >60 Urine output: good Monitor chemistries Avoid nephrotoxic agents. Diuresis : Lasix 40 mg daily Electrolyte imbalance Hyponatremia :Na 130- Continue Diuresis Hypokalemia : PRN and scheduled K Hypomagnesemia : PRN Magnesium Gastrointestinal: Slow Transit Constipation - Last Bowel Movement: 03/14/[address] with scheduled miralax and senna. PRN dulcolax suppository. Current Diet Orders Procedures DIET HEART HEALTHY - 4 GM SODIUM Carb Controlled Standing Status: Standing Number of Occurrences: 1 Additional Modifier:: Carb Controlled : Body mass index is 33.36 kg/m . Integumentary/Musculoskeletal Active Incisions Wounds - Wound Documentation Wound Surgical Open Surgical Incision 03/10/25 153 Sternum (Active) Date First Assessed/Time First Assessed: 03/10/251533 Primary Wound Type: Surgical Secondary WoundType - Surgical: Open Surgical Incision Present on Original Admission: No Device Related: no Incision Closure/Dressing: (c) Location: Sternum Wound Surgical 03/10/25 1534 Lower;Right Leg (Active) Date First Assessed/Time First Assessed: 03/10/251533 Primary Wound Type: Surgical Present on Original Admission: No Device Related: no Incision Type: laparoscopic punctures Incision Closure/Dressing: Dermabond;Island Dressing;Pedrito Wrap Wound L... Wound Surgical Sheath Site 03/10/252199 Anterior;Left Greater Trochanter (Active) Date First Assessed/Time First Assessed: 03/10/252199 Primary Wound Type: Surgical Secondary WoundType - Surgical: Sheath Site Present on Original Admission: No Wound Location Orientation: Anterior;Left Location: Greater Trochanter Endocrinology Stress Induced Hyperglycemia - Postoperative Insulin gtt transition to SSI HgbA1c= 03/11/2025: Hemoglobin A1C HPLC 5.2 Hematology Acute Blood Loss Anemia No concern for ongoing blood loss CTM daily H/H, no indication for transfusion at this time Infectious Disease Reactive Leukocytosis - - Pt is afebrile at this time, low suspicion for infection - Monitor and trend Prophylactic Antimicrobial Therapy - vancomycin and aztreonam Complexity Hyponatremia - Secondary to fluid shifts. Monitor. Obesity, class I Body mass index is 33.36 kg/m . - Follow with PCP for dietary and lifestyle modifications. Prophylaxis Bundle: HOB: 30 degrees Stress ulcer ppx: [] Yes [] Therapeutic [] Home regimen [x] No, not indicated Chemical DVT ppx: [x] Yes [] No, SCDs ordered Therapy Services: BLOOD TYPER: [] Swallow [] Cognitive Eval [] Speaking Valve [x] N/A Early Mobility: PT/OT consulted: [x]Yes [] No, d/t clinical status [] No, pt is independent Current Mobility Status: OOB and ambulate Fall Risk: Assessed for patient fall risk and discussed safety measures during rounding. OBJECTIVE VITALS: Blood pressure 123/64, pulse 71, temperature 98.5 F (36.9 C), temperature source Oral, resp. rate 16, height 1.778 m (5' 10"), weight 105.5 kg (232 lb 8 oz), SpO2 95%. PHYSICAL EXAM: General appearance: Alert, cooperative, sitting in chair in no acute distress HEENT: PEERL, EOMI, MMM NECK: Supple, Trachea not deviated Lungs: clear to auscultation, no wheezes, rales, or rhonchi Heart: Regular rate and rhythm, S1, S2 normal, no murmur, click, rub or gallop Abdomen: soft and non-tender, non-distended, normoactive bowel sounds Extremities: B/l extremities normal, atraumatic, no cyanosis . Bilateral LE edema present . Pulses: 2+ and symmetric Skin: Skin color, texture, turgor normal. No rashes or lesions Neurologic: II-XII Grossly intact, Grossly normal, Moves all 4 Extremities and follows commands Psych: Appropriate mood and affect for clinical situation SURGICAL INCISIONS Midsternal incision, prevena RLE SVG graft sites, surgical glue intact SYLVIE Chandra Cardiovascular ICU/ Cardiac Surgery 03/14/25 12:33 PM * Ely Quezada - 03/14/2025 10:20 AM EDT Inpatient Cardiopulmonary Rehab Consultation AND Activity Session Completed. RN approved, as tolerated, and patient agreeable to visit. Patient reports feeling fine without complaints. Patient demonstrated IS x 3 up to 1000 mL with okay technique. Patient educated on proper IS technique. Activity Session Vitals: 03/14/25 0947 03/14/25 0958 03/14/25 1008 Vital Signs Pulse (Heart Rate) 78 (Rest) 92 (Post-amb) 75 (Recovery) Heart Rate Source Monitor Monitor Monitor BP 127/68 150/70 154/70 MAP (mmHg) 92 mmHg 100 mmHg 100 mmHg BP Method Automatic Automatic Automatic BP Location Right arm Left arm Left arm BP Position Lying Sitting Sitting O2 Sat (%) 94 % 94 % -- O2 Device room air room air -- Activity/Level of Assistance Amb in rojo/CGA, 4WW Ambulation Distance (feet) 400 Symptoms Noted During/After Activity Mild SOB and fatigue Positioning Seated in chair, call light within reach telemetry all intact upon leaving the room Sternal binder Patient educated on purpose and proper use of sternal binder. Activity session details: Patient agreeable to activity and tolerated well. Patient ambulated 400 ft in rojo with CGA and 4WW. SpO2 dropped to 88% with mild SOB noted. Patient fitted for sternal binder, measured at 51 in. and donned XL. Patient left seated comfortably in chair. RN notified/aware. Encouraged continued ambulation and discussed appropriate activity progression. Patient participation in outpatient cardiac rehab was discussed. Patient is interested in participating in rehab at their local facility: [facility]. Patient should start program in approximately 6 weeks following discharge. Discharge education provided to the patient. Printed materials provided/reviewed: Your Guide to Heart Surgery and Sternal Precautions handout. Patient s questions/concerns were addressed and topics below were discussed. 1. Activity Restrictions s/p sternotomy (standard) for 6 weeks 2. Rest Time 3. Activity Guidelines/Recommendations 4. Nutrition 5. Medications 6. Coughing and Deep Breathing 7. Incision Care 8. Post Surgery Blues 9. When to Call the Doctor We will continue to follow up with patient as needed until discharge for education review and activity progression. 2 bottles of hibaclens (CHG) were provided to the patient and family for incision care at home. Patient and attended MIS Discharge Class today, instructed by the Inpatient Cardiopulmonary & Vascular Rehab team. Questions/concerns were addressed and topics below were discussed. 1. Activity Restrictions s/p sternotomy (standard) for 6 weeks 2. Rest Time 3. Activity Guidelines/Recommendations - Cardiac Rehab to start in 6 weeks at [facility] 4. Nutrition 5. Medications 6. Coughing and Deep Breathing 7. Incision Care and Sternal Binder Education 8. Post Surgery Blues 9. When to Call the Doctor Ely Quezada Inpatient Cardiopulmonary and Vascular [employer] Meagan Villalobos, ([phone]) Inpatient Cardiopulmonary & Vascular Rehab Cosigned by Meagan Villalobos at 03/14/2025 12:06 PM EDT Associated attestation - Meagan Villalobos - 03/14/2025 12:06 PM EDT I, Meagan Villalobos, MS, provided direct guidance in the room during this patient care session. I attest that all documentation reflects accurate skilled clinical decisions and judgements. Meagan Mclaughlindiales, ([phone]) Inpatient Cardiopulmonary & Vascular Rehab * Xiao Ballard, KATLIN - 03/14/2025 9:29 AM EDT Nutrition Consult: assessment, "per sister's request for poor appetite" NUTRITION ASSESSMENT Nutrition Recommendations and Plan of Care: 1. Liberalize to a Heart Healthy Diet - no hx of DM 2. Discontinued Ensure Plus (350kcal, 13g pro, 51g CHO). Will send Ensure Clear (240kcal, 8g pro, 52g CHO) TID for additional kcal & pro. 3. Nutrition will continue to follow per policy and assess more frequently if needed ___ Past History: Reviewed charted notes. Meir Landrum is a 69 y.o. male with PMH of former tobacco use, HTN, HLD, CAD s/p PCI to LAD (2008) w/multivessel CAD. Now s/p CABG x3 (ARORA-LAD, SVG-OM, SVG-PDA) 03/10. Past surgical, family, and social histories have been reviewed and are located elsewhere in the medical record. Nutrition Evaluation: Patient evaluated d/t MD consult for assessment, "per sister's request for poor appetite". POD#4. Extubated 03/11, diet advanced. Visited patient. Obtained wt/intake hx. Endorsed a UBW of 224 lbs. Denied changes in wt/appetite/intake SPEECH AND LANGUAGE SPECIALIST. Limited recent wt records reflect patient's report. Patient reported he typically consumesx2 meals daily, lunch & dinner. Intake adequate SPEECH AND LANGUAGE SPECIALIST. NFPE not performed, though no muscle/fat depletion observed. No malnutrition identified. Patient endorsed limited/minimal PO intake post-op primarily d/t lack of appetite & overall malaise. Additionally endorsed some mild nausea which he attributed to feeling unwell. Charted meals reflect intake of 0-50% since 03/11- not meeting nutrition needs. Encouraged intake as tolerated & for patient to order meals per preference. Ensure Plus ordered 03/12, though patient reported he prefers Ensure Clear (trialed on 4 Ross)- ordered per preference. Anticipate improvement in appetite/intake as post-op recovery progresses. Diet Order: DIET HEART HEALTHY - 4 GM SODIUM Carb Controlled + Ensure Plus TID Anthropometrics: Admit Height: 177.8 cm (5' 10") Admit Weight: no admit wt obtained; wt 03/08 102.1 kg (225 lb) Admit BMI: 32.3 kg/m IBW: 75.5kg; % IBW: 135% Weight History: Wt Readings from Last 20 Encounters: 03/08/25 102.1 kg (225 lb) 02/22/25 101.6 kg (224 lb) 02/10/25 102.1 kg (225 lb 1.4 oz) 02/10/25 102.1 kg (225 lb) 02/03/25 100.3 kg (221 lb 1.9 oz) 01/17/25 (P) 102.7 kg (226 lb 6.4 oz) Weights this admit: 03/14 105.5kg 03/12 108kg 03/11 103.1kg Weight Change: Stable wt around 225 lbs observed since at least 01/2025. Wt gain noted post-op- r/t fluid. Vitals: Tmax: 37.1 BP: 123/64 Pulse (Heart Rate): 71 Oxygen Therapy: room air I/Os: +1.3L net since admit Meds reviewed: Dulcolax suppository- held 03/14, 40mg Lasix, milk of magnesia- held 03/14, multivitamins, Protonix, Miralax BID, 20mEq Kdur, Senokot q12 hrs; 03/13- 20mg Lasix; PRN- 4g Mg Sulfate (x1 03/13, x1 03/14), 40mEq potassium bicarb citric acid (x1 03/13), 40mEq Kdur (x1 03/14) Labs reviewed: Na 130, osmolality 275; 03/11- HgbA1C 5.2 Physical Findings: NFPE: not performed; no muscle/fat depletion observed Respiratory: n/a GI: All Quadrants Bowel Sounds: return to WDL with Last BM x1 so far 03/14 Skin Integrity: incision sternum w/NPWT; surgical wound R lower leg; sheath site L greater trochanter Edema: +1 edema R&L foot Estimated Nutrition Needs: Weight Used: wt obtained 03/08 of 102kg & IBW of 76kg Estimated Energy Requirements (kcal/day): 5752-1289 kcal/day (18-22 kcal/kg @ 102kg) Estimated Protein Requirements (g/day): 110-115 g pro/day (1.5 g/kg @ 76kg) Estimated Fluid Requirements: 1 mL/kcal or per primary team discretion Assessment: Pt is at nutritional risk r/t limited/minimal PO intake post-op Malnutrition Diagnosis: Does the patient meet criteria for malnutrition: No *Based on [employer] and [employer] Indicators to Diagnose Malnutrition (AAIM) criteria (2012) Xiao Ballard, MPH, RD, LD, CNSC Pager #[phone] * Bony Garcia MD, PhD - 03/13/2025 11:16 AM EDT I, Dr. Bony Garcia, have evaluated Mr. Landrum. The EMR was reviewed. I discussed the plan of care with the residents/fellows/advanced practice providers. I have reviewed their note and agree with the plan of care as documented. S/P CABG and LAAL Progressing Pathway Wires to be cut prior to discharge -- Bony Garcia MD, PhD Office: [phone] Pager: [phone] * Kanchan Osorio RN - 03/13/2025 9:45 AM EDT Discharge Planning Assessment Is the patient able to participate in the assessment?: Yes Discharge Planning Summary 1. Plan at this time is discharge home with family support. 2. Spouse requesting a consult to dietary. 3. Patient assessment completed. Case Management Plan 1. Identified self and role as Application Technician. 2. Confirmed and updated demographics and treatment team. 3. Medical team notified of request for dietary consult. 4. Application Technician will continue to follow with medical team for any other additional discharge needs. Initial Discharge Planning Expected Discharge Disposition: Home with Home Health Transportation Available for Discharge: Private Vehicle, Family or Friend Anticipated DME: none Anticipated Services at Discharge: Physical Therapy, Occupational Therapy, Outpatient follow up, Halfway Patient Assessment Completed: Initial Legal Next of Kin Does the patient have a Guardian?: No Spouse: Yes Name and Contact information: Jayshree Adams [phone] Adult Sibling(s), List All Adult Siblings: Yes Name and Contact information: Sonali Landrum [phone] Would you like to add additional adult siblings?: No Patient Reports No Relatives by Blood or Adoption.: No Reviewed and Updated in Demographics? : Yes Advanced Care Planning Has the patient completed Advance Directives?: Not Completed Referral to Social Work for Advance Care Planning? : Patient Declines Medication Management Does the patient have prescription insurance coverage? : Yes Is the patient on Anticoagulation? : Yes Provider or Clinic that manages Anticoagulation?: [facility] 81mg [id number] [place] [address] [phone] [facility]. [phone] [facility] [facility] [id number] Living Environment and Support System Is the patient from a facility or chcf?: No Living Environment: House Patient Caregiving Responsibilities: Self, Spouse Patient-identified caregiver/support network: Family Who does the patient identify as a teachable caregiver(s)?: Spouse or Partner Services Does the patient use a home health or hospice agency?: No Current with dialysis?: No Does the patient use any community programs or services?: No Does patient use DME? : walker, shower seat, blood pressure monitor Would you like to add additional DME providers?: No Does the patient use oxygen?: No Does patient use medical supplies? : none Anticipated Changes Related to Illness/Injury? : Yes Inability to care for self?: No Initial ADLs Prior to Arrival What is the patient's reported baseline physical functioning prior to this acute illness?: independent What is the patient's reported baseline cognitive functioning prior to this acute illness?: independent Is the patient's baseline functioning changed by this acute illness? : Yes Changes observed : Physical Concerns with patient being able to care for themselves at home? : Yes Kanchan LUCAS RN Clinical Application Technician Please note that I am a float case managers and may not cover the same service every day. Please call the main Case Management office at [phone] for up-to-date coverage. Verified patients identity using date of . Appropriate PPE utilized. * Deloris Mathur, LUIGI-AERONAUTICAL DRAFTER - 03/13/2025 6:35 AM EDT CARDIAC SURGERY DAILY PROGRESS NOTE. HISTORY OF PRESENT ILLNESS: Mr. Landrum is a 69 y.o. male who has a pertinent past medical history including former tobacco use, HTN, HLD, CAD s/p PCI to LAD 2008, with multivessel CAD. DATE OF SURGERY: 03/10/25 PROCEDURE: CABG X3 (BIMA, SVG) (Midline) , LAAL SURGEON: Dr. Bony Garcia POD: 3 Code Status:Full Code 24-hour interval history: Patient was bradycardic to 30s overnight, asymptomatic. Plan for 03/13/2025: Remove mediastinal and right pleural CT 20mg IV lasix BID Hold amiodarone and BB d/t bradycardia overnight Pulmonary hygiene PT/OT/OOB Discharge Planning/NICOLE/Discharge Readiness: Anticipated, TBD pending clinical progression. Follow up: Emailed Imaging follow up plan: Chest x-ray Ambulatory referral to cardiac rehab order placed:Yes Dr. Bony Garcia recommends home health services upon discharge including PT, OT, and residential as indicated SURGICAL PLAN Pre-op [facility]: Exam prior to CABG 1. LV: normal size and function; EF 55%; GLS -17.5%; LVH (17mm) 2. RV: normal size and function 3. No significant valvular disease 4. Mild pericardial effusion 5. NO PFO 6. No clot LI 7. Significant atherosclerosis of descending aorta (5 mm) Post-op [facility]: POST-INTERVENTION SUMMARY S/p CABG - Cardiac chambers were evaluated for air and to assess need and success of venting maneuvers. - LV function 55-60% with no notable regional wall motion abnormalities. - Preserved RV function - No evidence of hemodynamically significant valvular dysfunction - No evidence of intracardiac thrombus - No evidence of aortic dissection Chest Tube Mgmt: Right pleural - removed Left pleural Mediastinal - removed Plan for today: water seal Pacing Wires: Ventricular Plan: cut on 03/11 Sutures/Blas Plan: CTM, per protocol PA/LAT Chest X-ray: To be ordered once all chest tubes are removed OT shower complete? No consult OT once all tubes and wires are out. SYSTEM BASED PLAN . Neurological: Acute Post-Operative Pain -- DVPRS: Rest: 0- no pain (03/13 400) DVPRS: Activity: 0- no pain (03/13 400) Scheduled tylenol and robaxin, oxy increased to q3h prn, dilaudid prn Lidocaine patches around CT sites, remove when able to Cardiovascular: CAD s/p CABG x 3 Aspirin Holding Metoprolol 12.5mg bid d/t bradycardia Cardiogenic Shock - resolved, secondary to post CABG procedure MAP goal >65 Off epi and levo Hypertension- SBP goal <140 Home medications: metoprolol Hyperlipidemia- start home statin. Atorvastatin and ezetimibe started Prophylactic Antiarrythmic: Yes - Amiodarone - holding today d/t bradycardia overnight Anticoagulation Status/Plan - Indication: CAD - Medication(s): hold on plavix, continue discussion prior to discharge. Antiplatelet Status/Plan - Indication: CAD - Medication(s)aspirin Pulmonary: Acute Respiratory insufficiency - Maintain O2 Sat > 92% with oxygen as needed Wean supplemental oxygen/support as able. Incentive Spirometry while awake Plan: Pulmonary toilet/diuresis Renal: Acute Kidney Injury Baseline Creatinine: 1 Baseline GFR: >60 Urine output: good Monitor chemistries Avoid nephrotoxic agents. Renal Replacement Therapy: Replace electrolytes via IV access. Gastrointestinal: Slow Transit Constipation - Last Bowel Movement: (SPEECH AND LANGUAGE SPECIALIST) Bowel regimen in place with scheduled miralax and senna. PRN dulcolax suppository. Current Diet Orders Procedures DIET HEART HEALTHY - 4 GM SODIUM Carb Controlled Standing Status: Standing Number of Occurrences: 1 Additional Modifier:: Carb Controlled : Body mass index is 34.16 kg/m . Integumentary/Musculoskeletal Active Incisions Wounds - Wound Documentation Wound Surgical Open Surgical Incision 03/10/251533 Sternum (Active) Date First Assessed/Time First Assessed: 03/10/251533 Primary Wound Type: Surgical Secondary WoundType - Surgical: Open Surgical Incision Present on Original Admission: No Device Related: no Incision Closure/Dressing: (c) Location: Sternum Wound Surgical 03/10/251533 Lower;Right Leg (Active) Date First Assessed/Time First Assessed: 03/10/251533 Primary Wound Type: Surgical Present on Original Admission: No Device Related: no Incision Type: laparoscopic punctures Incision Closure/Dressing: Dermabond;Island Dressing;Pedrito Wrap Wound L... Wound Surgical Sheath Site 03/10/252199 Anterior;Left Greater Trochanter (Active) Date First Assessed/Time First Assessed: 03/10/252199 Primary Wound Type: Surgical Secondary WoundType - Surgical: Sheath Site Present on Original Admission: No Wound Location Orientation: Anterior;Left Location: Greater Trochanter Endocrinology Stress Induced Hyperglycemia - Postoperative Insulin gtt transition to SSI HgbA1c= 03/11/2025: Hemoglobin A1C HPLC 5.2 Hematology Acute Blood Loss Anemia No concern for ongoing blood loss CTM daily H/H, no indication for transfusion at this time Infectious Disease Reactive Leukocytosis - - Pt is afebrile at this time, low suspicion for infection - Monitor and trend Prophylactic Antimicrobial Therapy - vancomycin and aztreonam Complexity Hyponatremia - Secondary to fluid shifts. Monitor. Obesity, class I Body mass index is 34.16 kg/m . - Follow with PCP for dietary and lifestyle modifications. Prophylaxis Bundle: HOB: 30 degrees Stress ulcer ppx: [] Yes [] Therapeutic [] Home regimen [x] No, not indicated Chemical DVT ppx: [x] Yes [] No, SCDs ordered Therapy Services: BLOOD TYPER: [] Swallow [] Cognitive Eval [] Speaking Valve [x] N/A Early Mobility: PT/OT consulted: [x]Yes [] No, d/t clinical status [] No, pt is independent Current Mobility Status: Activity as tolerated Fall Risk: Assessed for patient fall risk and discussed safety measures during rounding. OBJECTIVE VITALS: Blood pressure 125/58, pulse 68, temperature 98.7 F (37.1 C), temperature source Oral, resp. rate 15, height 1.778 m (5' 10"), weight 108 kg (238 lb 1.6 oz), SpO2 96%. PHYSICAL EXAM: GENERAL: Alert, oriented x 4, No acute distress HEENT: PEERL, EOMI, MMM HEART: RRR, +S1+S2, No murmurs LUNG: Non-Labored, ABD: Soft, Non-Distended, Non-Tender EXT: Warm, no cyanosis, trace edema in bilateral lower extremities. PULSE: Palpable Bilateral DP Pulses MUSC: Moves all 4 Extremities NEURO: Grossly intact, no acute deficits appreciated PSYCH: Appropriate for the clinical situation SURGICAL INCISIONS Midsternal incision, prevena RLE graft sites, surgical glue intact SYLVIE Whyte Cardiovascular ICU/ Cardiac Surgery 03/13/25 6:35 AM * Bony Garcia MD, PhD - 03/12/2025 6:30 PM EDT I, Dr. Bony Garcia, have evaluated Mr. Landrum. The EMR was reviewed. I discussed the plan of care with the residents/fellows/advanced practice providers. I have reviewed their note and agree with the plan of care as documented. S/P CABG and LAAL Progressing Pathway Wires to be cut prior to discharge -- Bony Garcia MD, PhD Office: [phone] Pager: [phone] * SYLVIE Whyte - 03/12/2025 6:27 AM EDT CVICU DAILY PROGRESS NOTE. HISTORY OF PRESENT ILLNESS: Mr. Landrum is a 69 y.o. male who has a pertinent past medical history including former tobacco use, HTN, HLD, CAD s/p PCI to LAD 2008, with multivessel CAD. DATE OF SURGERY: 03/10/25 PROCEDURE: CABG X3 (BIMA, SVG) (Midline) , LAAL SURGEON: Dr. Bony Garcia POD: 2 Code Status:Full Code 24-hour interval history: No acute overnight events, patient progressed to PCU Plan for 03/12/2025: Chest tubes to water seal 20mg IV lasix BID Add ensure meal supplements Pulmonary hygiene PT/OT/OOB Discharge Planning/NICOLE/Discharge Readiness: Anticipated, TBD pending clinical progression. Follow up: TBD Imaging follow up plan: TBD Ambulatory referral to cardiac rehab order placed:No Dr. Bony Garcia recommends home health services upon discharge including PT, OT, and residential as indicated SURGICAL PLAN Pre-op [facility]: Exam prior to CABG 1. LV: normal size and function; EF 55%; GLS -17.5%; LVH (17mm) 2. RV: normal size and function 3. No significant valvular disease 4. Mild pericardial effusion 5. NO PFO 6. No clot LI 7. Significant atherosclerosis of descending aorta (5 mm) Post-op [facility]: POST-INTERVENTION SUMMARY S/p CABG - Cardiac chambers were evaluated for air and to assess need and success of venting maneuvers. - LV function 55-60% with no notable regional wall motion abnormalities. - Preserved RV function - No evidence of hemodynamically significant valvular dysfunction - No evidence of intracardiac thrombus - No evidence of aortic dissection Chest Tube Mgmt: Right pleural Left pleural Mediastinal Plan for today: water seal Pacing Wires: Ventricular Plan: cut on 03/11 Sutures/[place] Plan: CTM, per protocol PA/LAT Chest X-ray: To be ordered once all chest tubes are removed OT shower complete? No consult OT once all tubes and wires are out. SYSTEM BASED PLAN . Neurological: Acute Post-Operative Pain -- DVPRS: Rest: 9- severe pain (03/12 527) DVPRS: Activity: 9- severe pain (03/12 527) Scheduled tylenol and robaxin, oxy increased to q3h prn, dilaudid prn Lidocaine patches around CT sites, remove when able to Agitation/Delirium- Overall CAM-ICU: Negative Delirium precautions Day/night sleep cycle, sleep hygiene Cardiovascular: CAD s/p CABG x 3 Aspirin, Metoprolol 12.5mg bid Cardiogenic Shock - resolved, secondary to post CABG procedure MAP goal >65 Off epi and levo Hypertension- SBP goal <140 Home medications: metoprolol Hyperlipidemia- start home statin. Atorvastatin and ezetimibe started Prophylactic Antiarrythmic: Yes - Amiodarone Anticoagulation Status/Plan - Indication: CAD - Medication(s): hold on plavix, continue discussion prior to discharge. Antiplatelet Status/Plan - Indication: CAD - Medication(s)aspirin Pulmonary: Acute Respiratory insufficiency - Maintain O2 Sat > 92% with oxygen as needed Wean supplemental oxygen/support as able. Incentive Spirometry while awake Plan: Pulmonary toilet/diuresis Renal: Acute Kidney Injury Baseline Creatinine: 1 Baseline GFR: >60 Urine output: good Monitor chemistries Avoid nephrotoxic agents. Renal Replacement Therapy: Replace electrolytes via IV access. Gastrointestinal: Slow Transit Constipation - Bowel regimen in place with scheduled miralax and senna. PRN dulcolax suppository. Current Diet Orders Procedures DIET HEART HEALTHY - 4 GM SODIUM Carb Controlled Standing Status: Standing Number of Occurrences: 1 Additional Modifier:: Carb Controlled : Body mass index is 34.16 kg/m . Integumentary/Musculoskeletal Active Incisions Wounds - Wound Documentation Wound Surgical Open Surgical Incision 03/10/25 153 Sternum (Active) Date First Assessed/Time First Assessed: 03/10/25 153 Primary Wound Type: Surgical Secondary WoundType - Surgical: Open Surgical Incision Present on Original Admission: No Device Related: no Incision Closure/Dressing: (c) Location: Sternum Wound Surgical 03/10/25 1534 Lower;Right Leg (Active) Date First Assessed/Time First Assessed: 03/10/25 153 Primary Wound Type: Surgical Present on Original Admission: No Device Related: no Incision Type: laparoscopic punctures Incision Closure/Dressing: Dermabond;Island Dressing;Pedrito Wrap Wound L... Wound Surgical Sheath Site 03/10/25 2200 Anterior;Left Greater Trochanter (Active) Date First Assessed/Time First Assessed: 03/10/250 Primary Wound Type: Surgical Secondary WoundType - Surgical: Sheath Site Present on Original Admission: No Wound Location Orientation: Anterior;Left Location: Greater Trochanter Endocrinology Stress Induced Hyperglycemia - Postoperative Insulin gtt transition to SSI HgbA1c= 03/11/2025: Hemoglobin A1C HPLC 5.2 Hematology Acute Blood Loss Anemia No concern for ongoing blood loss CTM daily H/H, no indication for transfusion at this time Infectious Disease Reactive Leukocytosis - - Pt is afebrile at this time, low suspicion for infection - Monitor and trend Prophylactic Antimicrobial Therapy - vancomycin and aztreonam Complexity Hyponatremia - Secondary to fluid shifts. Monitor. Obesity, class I Body mass index is 34.16 kg/m . - Follow with PCP for dietary and lifestyle modifications. Prophylaxis Bundle: HOB: 30 degrees Stress ulcer ppx: [] Yes [] Therapeutic [] Home regimen [x] No, not indicated Chemical DVT ppx: [x] Yes [] No, SCDs ordered Therapy Services: BLOOD TYPER: [] Swallow [] Cognitive Eval [] Speaking Valve [x] N/A Early Mobility: PT/OT consulted: [x]Yes [] No, d/t clinical status [] No, pt is independent Current Mobility Status: Activity as tolerated Fall Risk: Assessed for patient fall risk and discussed safety measures during rounding. OBJECTIVE VITALS: Blood pressure 123/72, pulse 79, temperature 99.6 F (37.6 C), temperature source Axillary, resp. rate (!) 31, height 1.778 m (5' 10"), weight 108 kg (238 lb 1.6 oz), SpO2 95%. PHYSICAL EXAM: GENERAL: Alert, oriented x 4, No acute distress HEENT: PEERL, EOMI, MMM HEART: RRR, +S1+S2, No murmurs LUNG: Non-Labored, ABD: Soft, Non-Distended, Non-Tender EXT: Warm, no cyanosis, trace edema in bilateral lower extremities. PULSE: Palpable Bilateral DP Pulses MUSC: Moves all 4 Extremities NEURO: Grossly intact, no acute deficits appreciated PSYCH: Appropriate for the clinical situation SURGICAL INCISIONS Midsternal incision, prevena RLE graft sites, surgical glue intact SYLVIE Whyte Cardiovascular ICU/ Cardiac Surgery 03/12/25 6:27 AM * Kanchan Osorio RN - 03/11/2025 4:33 PM EDT Care Management Progress Note Case Management attempted to complete an initial assessment and to discuss discharge planning with patient. Patient recent post op requested CM to come back tomorrow. Case Management will re-attempt at a later time when patient is available. Will continue to follow to coordinate discharge planning. Kanchan LUCAS RN Clinical Application Technician Please note that I am a float case managers and may not cover the same service every day. Please call the main Case Management office at [phone] for up-to-date coverage. Verified patients identity using date of . Appropriate PPE utilized. * SYLVIE Whyte - 03/11/2025 1:44 PM EDT Cardiac Surgery Epicardial Wire Removal Procedure: ventricular pacer wire(s) clipped Performed by: SYLVIE Whyte Indications: Clipped per Dr. Garcia Pre-Procedure Details: INR (Within the last 24 hours): 1.2 IV anticoagulation: not on IV anticoagulation If nurse performing procedure, order in chart: not applicable Procedure Details: Wire Clipping: Procedure was reviewed with the patient. Questions were answered and patient was given time to address concerns. Patient was placed in a supine position. Bandages were removed and stabilizing suture(s) were removed. Tension was applied to the wire(s) with simultaneous downward pressure to the abdomen. Wire(s) were clipped at the skin. No residual wire(s) visualized/protruding at the skin. Aseptic Technique was used throughout the procedure. The patient tolerated the procedure well. No complications were identified. Post-Procedure: Wires were clipped and bedrest is not indicated. [facility] notified of procedure completion. IV anticoagulation: n/a SYLVIE Whyte Cardiac Surgery [facility]YS[facility] * Bony Garcia MD, PhD - 03/11/2025 12:25 PM EDT I, Dr. Bony Garcia, have evaluated Mr. Landrum. The EMR was reviewed. I discussed the plan of care with the residents/fellows/advanced practice providers. I have reviewed their note and agree with the plan of care as documented. S/P CABG and LAAL Progressing Pathway Wires to be cut prior to discharge -- Bony Garcia MD, PhD Office: [phone] Pager: [phone] * Abhijit Lane, PT - 03/11/2025 10:14 AM EDT Acute Physical Therapy Evaluation Prior Gross Functional Mobility: independent Current AM-PAC score(s): CURRENT AM-PAC Mobility Raw Score: 15 Based on the above AM-PAC score(s) and PT clinical judgment, patient is a good candidate for discharge to (TBD; POD 1, pain and line limited. Strong stands and steps back to bed, anticipate will progress well as pain is controlled. Anticipate return home with spouse support.) Mobility equipment available at home: straight cane, front-wheeled walker, none used ADL equipment available at home: grab bars Equipment needed for discharge: to be determined Current therapy frequency recommendation in acute: PT Therapy Frequency: 5 times a week Activity Recommendations for outside of rehab session: OOB for meal times and progressing to 3 walks per day Past Medical History: Diagnosis Date Arthritis CAD (coronary artery disease) Cardiac angina Congestive heart failure Diverticulitis GERD (gastroesophageal reflux disease) Hyperlipidemia VT (myocardial infarction) Past Surgical History: Procedure Laterality Date ARTHROPLASTY SHOULDER TOTAL Left 08/14/2022 Laterality: Left; Surgeon: Robin Mcguire MD; Location: [facility] OR TENODESIS BICEPS LONG TENDON Left 08/14/2022 Laterality: Left; Surgeon: Robin Mcguire MD; Location: [facility] OR ARTHROPLASTY HIP TOTAL ANTERIOR APPROACH Right 07/02/2021 Laterality: Right; Surgeon: Amarjit Marroquin MD; Location: [facility] OR ASPIRATION OR INJECTION LARGE JOINT BURSA Left 07/02/2021 Laterality: Left; Surgeon: Amarjit Marroquin MD; Location: [facility] MA[facility] OR CORONARY STENT PLACEMENT 2009 MENISCECTOMY Left SHOULDER ARTHROSCOPY Right PERIOPERATIVE SURGICAL HISTORY AND PHYSICAL UPDATE Pre-op Diagnoses: 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 [I25.119] Procedure(s): CABG X3 (IVNNIE, DAVID) Surgeon(s): Surgeons and Role: * Bony Garcia MD, PhD - Primary Precautions and Weightbearing Status: Existing Precautions/Restrictions: cardiac, fall, standard sternal Lines/Tubes/Drains (Rehab Status): Telemetry, Arterial line, [place], Chest tube, External pacemaker, Wound vac Patient Safety Communication Prior to Visit: Nursing Subjective: Pt in chair, agreeable to back to bed with therapy assist. Reports increased pain and difficulty taking deep breaths. Pain: General Pain Documentation (Adult, OB, Peds) Presence of Pain: reports pain/discomfort Pain Location: incisional (chest tube sites, referred to upper back) DVPRS (Defense and Veterans Pain Rating Scale) DVPRS: Rest: 8- severe pain DVPRS: Activity: 9- severe pain Home Setting Residence: House (1 story with basement) Lives With: spouse Patient receives help from : spouse First floor setup: bedroom, tub shower Mobility Equipment Available: straight cane, front-wheeled walker, none used ADL Equipment Available: grab bars Previous Level of Function Gross Functional Mobility: independent Assistive Device: none used Prior level ADL Overview: Independent with all ADLs Dominant Hand: Right Bed Mobility: independent Transfers: independent Stairs: independent Ambulation: independent with all needs Prior Level of Function Details: 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 Objective/Observation: Vitals/Vitals Responses to Treatment: WFL O2 Device: nasal cannula Flow (L/min): 6 Cognition Overall Cognitive Status: Within Functional Limits Arousal/Alertness: Appropriate responses to stimuli Orientation Level: Oriented X4 Following Commands: Follows one step commands without difficulty Safety Judgment: Good awareness of safety precautions Awareness of Errors: Assistance required to identify errors made, Assistance required to correct errors made Deficits: Fully aware of deficits Attention Span: Appears intact Memory: Decreased recall of precautions Vision Screen Currently wearing corrective lenses: Yes, Progressive lenses Visual Impairments Observed?: No Speech Speech: no gross deficits noted Hearing Hearing: no gross deficits noted Extremity Assessments: RUE Assessment RUE Assessment: Within Functional Limits LUE Assessment LUE Assessment: Within Functional Limits RLE Assessment RLE Assessment: Within Functional Limits LLE Assessment LLE Assessment: Within Functional Limits Sensation Overall Sensation: Intact Skin Integrity Skin Integrity Description: Surgical Incision Edema Edema: present Location: generalized LEs Mobility Assessment: Sit to Supine Mobility Wall Level: Sit->Supine: maximum assist (25% patient effort) Physical Assist: Sit->Supine: 2 person assist Bed Features/Set-up: Sit->Supine: Flat Skilled Rationale: Sequencing, Hand placement, Verbal cues, Tactile cues, Technique of activity, Initiation and execution of task, Breathing strategies, Maintain precautions Balance: Sitting Balance Static Sitting-Level of Assistance: Contact guard Dynamic Sitting-Level of Assistance: Contact guard Skilled Rationale: Verbal cues, Tactile cues, Full extension to upright positioning/posture, Finding/maintaining midline positioning, Breathing strategies, Maintain precautions Standing Balance Static Standing-Level of Assistance: Contact guard Dynamic Standing-Level of Assistance: Minimum assistance Skilled Rationale: Verbal cues, Tactile cues, Full extension to upright positioning/posture, Upright gaze/neck extension, Technique of activity, Breathing strategies Transfer Assessment: Sit to Stand Transfer Wall Level: Sit->Stand: minimum assist (75% patient effort) Physical Assist: Sit->Stand: 2 person assist Assistive Device: Sit->Stand: arm in arm Skilled Rationale: Hand placement, Verbal cues, Tactile cues, Facilitate anterior shift, Full extension to upright positioning/posture, Upright gaze/neck extension, Technique of activity, Breathing strategies, Maintain precautions, Initiation and execution of task Stand to Sit Transfer Wall Level: Stand->Sit: minimum assist (75% patient effort) Physical Assist: Stand->Sit: 1 person + 1 person to manage equipment Skilled Rationale: Verbal cues, Tactile cues, Controlled descent for sitting, Technique of activity, Breathing strategies, Maintain precautions Bed-Chair Transfer Wall Level: Bed<->Chair: minimum assist (75% patient effort) Physical Assist: Bed<->Chair: 1 person + 1 person to manage equipment Skilled Rationale: Verbal cues, Tactile cues, Full extension to upright positioning/posture, Upright gaze/neck extension, Technique of activity Gait/Functional Mobility: Gait Assessment Wall Level: Gait: not tested Outcome Score(s): CURRENT AM-PAC Basic Mobility Inpatient Short Form Turning over in bed: 2 - A Lot of Assistance Moving from lying on back to sittin - A Lot of Assistance Moving to and from bed to chair: 3 - A Little Assistance Sitting/standing from chair: 3 - A Little Assistance Walk in hospital room: 3 - A Little Assistance Climbing 3-5 steps with a railin - A Lot of Assistance CURRENT AM-PAC Mobility Raw Score: 15 CURRENT AM-[facility] Mobility Functional Limitation: 57.70% Impaired in Basic Mobility Assessment & Plan: Patient was admitted for s/p CABG x 3 on 03/10 and seen for therapy evaluation related to mobility concerns and discharge needs post-op [facility]. Exam findings include impairments in: Strength, Balance, Pain, Posture, Transfers, Gait/Locomotion,Edema, Circulation/vascular, Aerobic capacity/endurance, Ventilation and respiration/gas exchange. These impairments contribute to functional limitations including Ambulation/locomotion pain, Decreased ambulation distance/endurance, Difficulty with transfers, Difficulty with bed mobility, Decreasedfunctional mobility. Current clinical presentation is Evolving - changing/inconsistent clinical characteristics (Moderate). Patient history factors impacting Plan Of Care include PMH. Patient will benefit from skilled physical therapy to address these impairments, functional limitations, and participation restrictions and has good rehab potential to achieve therapy goals. Planned Therapy Interventions: balance training, bed mobility training, endurance, edema control, gait training, postural re-education, strengthening, transfer training, functional activity tolerance Patient Instruction/Education this session: Learners: Patient Education provided: Activity outside of therapy, Discharge recommendations, Bed mobility, Functional transfers, Gait training safety, Plan of care, Precautions/weight bearing status, Role of this discipline Teaching method: Verbal Education/Instruction Learner response: Needs review Plan for next session: advance OOB mobility, ambulation, strength, balance, endurance Acute PT Goals Plan of Care by Abhijit Lane PT at 03/11/2025 10:14 AM Version 1 of 1 Problem: PT - General Goals Goal: Supine <-> Sit Transfers - Patient will perform supine to/from sit transfers with independence and without use of hospital bed features in order to improve functional mobility and safety. Outcome: Progressing Goal: Sit <-> Stand Transfers - Patient will perform sit to/from stand transfers with independence in order to improve functional mobility and safety. Outcome: Progressing Goal: Ambulation - Patient will ambulate 250 feet with modified independence with/out an assistive device to improve ability to safely navigate home and community. Outcome: Progressing Goal: Precautions - Patient will successfully adhere to post-operative precautions during 100% of functional mobility without verbal cueing in order to maintain safety and reduce risk of injury. Outcome: Progressing PT treatment consisted of the following to progress towards the above goal(s): PT Evaluation and Treatment Time PT Evaluation (Moderate) Time Entry: 20 Evaluating Therapist: Abhijit Lane PT Additional Details: PT Co-Eval/Treatment Information Co-evaluation/co-treatment performed?: Yes, simultaneous billable skilled care was necessary due tomedical complexity and functional deficits Other discipline: OT Rationale for need to co-eval/treat: postural control Evaluation Complexity Components History: High (3 personal factors and/or comorbidities) Body Systems Review: Moderate (Addressing a total of 3 or more elements) Clinical Presentation: Evolving - changing/inconsistent clinical characteristics (Moderate) Clinical Decision Making Complexity: Moderate Time In: 0954 Time Out: 1014 Total Visit Time: 20 minutes Total Treatment Time (skilled, billable minutes): 20 minutes PPE used during patient interaction: gloves Patient location at end of session: bed with head of bed elevated, RN aware Alarms on at end of session: none, RN aware Needs in reach. Upon discontinuation of Acute Care Physical Therapy Services or patient discharge from the hospitalthis note represents the current Physical Therapy Discharge Summary. * Navi Davis OT - 03/11/2025 9:54 AM EDT Acute Occupational Therapy Evaluation Prior Gross Functional Mobility: independent Current AM-PAC score(s): CURRENT AM-PAC Mobility Raw Score: 15 CURRENT AM-PAC Activity Raw Score: 14 Based on the above AM-PAC score(s) and OT clinical judgment, discharge destination recommendation is: Home with Home Health (anticipate progression to home once barriers are addressed) Barriers: pain, limited time OOB, medical lines RN considerations: up with 1 person assist Mobility equipment available at home: straight cane, front-wheeled walker, none used ADL equipment available at home: grab bars Equipment recommendations for discharge: to be determined Equipment issued: none Current therapy frequency recommendation(s) in acute: 5 times a week Precautions and Weightbearing Status: OT Existing Precautions/Restrictions: fall, cardiac, standard sternal, supplemental oxygen Lines/Tubes/Drains (Rehab Status): External pacemaker, [place] Ale[place], Arterial line, Telemetry, Urinarycatheter, Tube feeding (CT x3;) Patient Safety Communication Prior to Visit: Nursing Subjective: This is the most pain I have ever experienced. Pain: General Pain Documentation (Adult, OB, Peds) Presence of Pain: reports pain/discomfort Pain Location: incisional DVPRS (Defense and Veterans Pain Rating Scale) DVPRS: Rest: 8- severe pain DVPRS: Activity: 8- severe pain Home Setting Residence: House (1 story with basement) Lives With: spouse Patient receives help from : spouse First floor setup: bedroom, tub shower Mobility Equipment Available: straight cane, front-wheeled walker, none used ADL Equipment Available: grab bars Previous Level of Function Gross Functional Mobility: independent Assistive Device: none used Prior level ADL Overview: Independent with all ADLs Dominant Hand: Right Bed Mobility: independent Transfers: independent Stairs: independent Ambulation: independent with all needs Prior Level of Function Details: 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 Objective/Observation: Vitals/Vitals Responses to Treatment: 03/11/25 0955 03/11/25 1000 03/11/25 1010 Art Line (1) Monitoring Arterial Line (1) BP 119/55 122/55 140/70 Arterial Line (1) MAP 73 mmHg 74 mmHg 94 mmHg Oxygen Therapy O2 Sat (%) 91 % 92 % (!) 89 % O2 Device: nasal cannula Vision Screen Currently wearing corrective lenses: Yes, Progressive lenses Clinical Observations: WFL Speech Speech: no gross deficits noted Successful Methods (Communication Strategies): verbal speech Hearing Hearing: no gross deficits noted Cognition Overall Cognitive Status: Within Functional Limits Arousal/Alertness: Lethargic Orientation Level: Oriented X4 Following Commands: Follows one step commands without difficulty Safety Judgment: Decreased awareness of need for safety, Decreased awareness of need for assistance Awareness of Errors: Good awareness of errors made Deficits: Decreased awareness of deficits Attention Span: Appears intact Memory: Decreased recall of precautions Problem Solving: Able to problem solve independently Cognition Comments: Pleasant and cooperative ADLs: Eating Assistance: Independent Grooming Assistance: Minimal Bathing Assistance: Maximal UE Dressing Assistance: Maximal LE Dressing Assistance: Maximal Toilet Assistance: Total Extremity Assessments: RUE Assessment RUE Assessment: Within Functional Limits Right UE Assessment Details: within sternal precaution LUE Assessment LUE Assessment: Within Functional Limits Left UE Assessment Details: within sternal precaution Balance: Sitting Balance Static Sitting-Level of Assistance: Contact guard Dynamic Sitting-Level of Assistance: Contact guard Skilled Rationale: Verbal cues, Upright gaze/neck extension, Technique of activity Standing Balance Static Standing-Level of Assistance: Contact guard Dynamic Standing-Level of Assistance: Minimum assistance Skilled Rationale: Verbal cues, Upright gaze/neck extension, Technique of activity Neuro: Sensation Overall Sensation: Intact Gross Coordination Gross Coordination: bilat UE intact Fine Motor Coordination Additional Documentation: No Skin and Edema: Skin Integrity Skin Integrity Description: Surgical incision Edema Edema: present Location: generalized Mobility Assessment: Sit to Supine Mobility Wall Level: Sit->Supine: maximum assist (25% patient effort) Physical Assist: Sit->Supine: 2 person assist Bed Features/Set-up: Sit->Supine: Flat Skilled Rationale: Verbal cues, Upright gaze/neck extension, Technique of activity, Sequencing, Breathing strategies Transfer Assessment: Sit to Stand Transfer Wall Level: Sit->Stand: minimum assist (75% patient effort) Physical Assist: Sit->Stand: 2 person assist Assistive Device: Sit->Stand: arm in arm Skilled Rationale: Verbal cues, Upright gaze/neck extension, Technique of activity, Maintain precautions Stand to Sit Transfer Wall Level: Stand->Sit: minimum assist (75% patient effort) Physical Assist: Stand->Sit: 1 person + 1 person to manage equipment Skilled Rationale: Verbal cues, Upright gaze/neck extension, Technique of activity, Breathing strategies Bed-Chair Transfer Wall Level: Bed<->Chair: minimum assist (75% patient effort) Physical Assist: Bed<->Chair: 1 person + 1 person to manage equipment Skilled Rationale: Verbal cues, Technique of activity, Breathing strategies Functional Mobility: Functional Mobility Wall Level: Functional Mobility/Gait: not tested Skilled Intervention/Details - Functional Mobility/Gait: Pt presenting with increased lethargy thisdate therefore ambulation not attempted due to patient safety Outcome Score(s): CURRENT AM-[facility] Daily Activity Inpatient Short Form Putting on/Taking Off Lower Body Clothin - A Lot of Assistance Bathin - A Lot of Assistance Toiletin - Total Assistance Putting on/Taking Off Upper Body Clothin - A Lot of Assistance Groomin - A Little Assistance Eatin - No Assistance CURRENT AM-[facility] Activity Raw Score: 14 CURRENT AM-[facility] Activity Functional Limitation/Modifier: 59.67% Currently Impaired in Daily Activity- CK Interventions: Assessment & Plan: Mr. Landrum is a 69 y.o. male who has a pertinent past medical history including former tobacco use, HTN, HLD, CAD s/p PCI to LAD 2008, with multivessel CAD. Pt seen for therapy evaluation related to decreased ADL performance, functional transfers, and functional activity tolerance which affect participation in self- care tasks and functional mobility. Exam findings include impairments in: aerobic capacity, balance, arousal, attention, endurance, pain with movement, pain, transfers, strength. These impairments contribute to occupational performancelimitations including bathing, dressing, grooming, toileting, functional mobility, ADL transfers. The following factors impact the plan of care: Past Medical History: Diagnosis Date Arthritis CAD (coronary artery disease) Cardiac angina Congestive heart failure Diverticulitis GERD (gastroesophageal reflux disease) Hyperlipidemia VT (myocardial infarction) Patient will benefit from skilled occupational therapy to address these impairments, occupational performance limitations, and participation restrictions. Patient's rehab potential is: good. Planned Therapy Interventions (OT Eval): ADL retraining, IADL retraining, balance training, transfer training, functional activity tolerance Patient Instruction/Education this session: Learners: Patient Education provided: Role of this discipline, Plan of care, Precautions/weight bearing status Teaching method: Verbal Education/Instruction Learner response: States/Identifies/Teaches back Learning preferences: Auditory Learning considerations: Pain/discomfort Plan for next session: Continue to progress OOB activities, LE dressing, and toileting tasks Acute OT Goals Plan of Care by Navi Davis OT at 03/11/2025 9:54 AM Version 1 of 1 Problem: OT - ADLs Goal: Upper Body Dressing - Patient will complete upper body dressing task seated in chair with modified independence using adaptive equipment/compensatory strategies as needed for improved ability to complete self-care activities. Outcome: Progressing Goal: Lower Body Dressing - Patient will complete lower body dressing tasks with modified independence using adaptive equipment/compensatory strategies as needed for improved ability to complete self-care activities. Outcome: Progressing Goal: Toileting - Patient will complete toileting task with modified independence and adaptive equipment as needed for improved ability to safely complete self-care activities. Outcome: Progressing Goal: Bathing - Patient will perform full body bathing routine with modified independence while seated for improved ability to complete self-care activities Outcome: Progressing Problem: OT - Transfers Goal: Transfers Toilet/ Bedside Commode - Patient will transfer to/from toilet/bedside commode withmodified independence for improved ability to safely complete ADLs. Outcome: Progressing Problem: OT - Other Goal: Precaution Adherence - Patient will demonstrate 100% adherence to precautions during all ADLsand functional transfers to promote safety during daily routine. Outcome: Progressing OT treatment consisted of the following to work and progress towards the above goal(s): OT Evaluation and Treatment Time OT Evaluation (High) Time Entry: 20 Evaluating Therapist: Navi Davis OT Additional Details: OT Co-Eval/Treatment Information Co-evaluation/co-treatment performed?: Yes, simultaneous billable skilled care was necessary due tomedical complexity and functional deficits Other discipline: PT Rationale for need to co-eval/treat: postural control OT Evaluation Complexity Occupational Profile and Client History: High - extensive history Assessment of Occupational Performance: High (5 or more performance deficits) Clinical Decision/Performance Deficits: High (comprehensive assessments w/multiple treatment options) Time In: 0954 Time Out: 1014 Total Visit Time: 20 minutes Total Treatment Time (skilled, billable minutes): 20 minutes Assisted by during session: PT PPE used during patient interaction: gloves Patient location at end of session: bed with head of bed elevated, RN aware, lines intact Alarms on at end of session: none Needs in reach. Upon discontinuation of Acute Care Occupational Therapy Services or patient discharge from the hospital this note represents the current Occupational Therapy Discharge Summary. * Xander Boland DO - 03/11/2025 6:26 AM EDT CVICU DAILY PROGRESS NOTE. HISTORY OF PRESENT ILLNESS: Mr. Landrum is a 69 y.o. male who has a pertinent past medical history including former tobacco use, HTN, HLD, CAD s/p PCI to LAD 2008, with multivessel CAD. DATE OF SURGERY: 03/10/25 PROCEDURE: CABG X3 (BIMA, SVG) (Midline) , LAAL SURGEON: Dr. Bony Garcia POD: 1 Code Status:Full Code 24-hour interval history: Extubated, removed Fem line, on nitroglycerin 24 hours 1L fluid given ON Off epi, levo, insulin ggt Urine output good, 60-100cc/hr Plan for 03/11/2025: Pt/OT, pain control Cut wires today Discharge Planning/NICOLE/Discharge Readiness: Anticipated, TBD pending clinical progression. Follow up: TBD Imaging follow up plan: TBD Ambulatory referral to cardiac rehab order placed:No Dr. Bony Garcia recommends home health services upon discharge including PT, OT, and residential as indicated SURGICAL PLAN Pre-op [facility]: Exam prior to CABG 1. LV: normal size and function; EF 55%; GLS -17.5%; LVH (17mm) 2. RV: normal size and function 3. No significant valvular disease 4. Mild pericardial effusion 5. NO PFO 6. No clot LI 7. Significant atherosclerosis of descending aorta (5 mm) Post-op [facility]: POST-INTERVENTION SUMMARY S/p CABG - Cardiac chambers were evaluated for air and to assess need and success of venting maneuvers. - LV function 55-60% with no notable regional wall motion abnormalities. - Preserved RV function - No evidence of hemodynamically significant valvular dysfunction - No evidence of intracardiac thrombus - No evidence of aortic dissection Chest Tube Mgmt: Right pleural Left pleural Mediastinal Plan for today: water seal Pacing Wires: Ventricular Plan: cut when ready Sutures/[place] Plan: CTM, per protocol PA/LAT Chest X-ray: To be ordered once all chest tubes are removed OT shower complete? No consult OT once all tubes and wires are out. SYSTEM BASED PLAN . Neurological: Acute Post-Operative Pain -- DVPRS: Rest: 8- severe pain (03/11 954) DVPRS: Activity: 8- severe pain (03/11 954) Scheduled tylenol and robaxin, oxy increased to q3h prn, dilaudid prn Lidocaine patches around CT sites, remove when able to Agitation/Delirium- Delirium precautions Day/night sleep cycle, sleep hygiene Cardiovascular: CAD s/p CABG x 3 Aspirin, Metoprolol 12.5mg bid Cardiogenic Shock - resolved, secondary to post CABG procedure MAP goal >65 Off epi and levo Hypertension- SBP goal <140 Home medications: metoprolol Hyperlipidemia- start home statin. Atorvastatin and ezetimibe started Prophylactic Antiarrythmic: Yes - Amiodarone Anticoagulation Status/Plan - Indication: CAD - Medication(s): hold on plavix, continue discussion prior to discharge. Antiplatelet Status/Plan - Indication: CAD - Medication(s)aspirin Pulmonary: Acute Respiratory insufficiency - Maintain O2 Sat > 92% with oxygen as needed Wean supplemental oxygen/support as able. Incentive Spirometry while awake Plan: Pulmonary toilet/diuresis Renal: Acute Kidney Injury Baseline Creatinine: 1 Baseline GFR: >60 Urine output: good Monitor chemistries Avoid nephrotoxic agents. Renal Replacement Therapy: Replace electrolytes via IV access. Gastrointestinal: Slow Transit Constipation - Bowel regimen in place with scheduled miralax and senna. PRN dulcolax suppository. Current Diet Orders Procedures DIET HEART HEALTHY - 4 GM SODIUM Carb Controlled Standing Status: Standing Number of Occurrences: 1 Additional Modifier:: Carb Controlled : Body mass index is 32.61 kg/m . Integumentary/Musculoskeletal Active Incisions Wounds - Wound Documentation Wound Surgical Open Surgical Incision 03/10/251533 Sternum (Active) Date First Assessed/Time First Assessed: 03/10/251533 Primary Wound Type: Surgical Secondary WoundType - Surgical: Open Surgical Incision Present on Original Admission: No Device Related: no Incision Closure/Dressing: (c) Location: Sternum Wound Surgical 03/10/251533 Lower;Right Leg (Active) Date First Assessed/Time First Assessed: 03/10/251533 Primary Wound Type: Surgical Present on Original Admission: No Device Related: no Incision Type: laparoscopic punctures Incision Closure/Dressing: Dermabond;Island Dressing;Pedrito Wrap Wound L... Wound Surgical Sheath Site 03/10/252199 Anterior;Left Greater Trochanter (Active) Date First Assessed/Time First Assessed: 03/10/252199 Primary Wound Type: Surgical Secondary WoundType - Surgical: Sheath Site Present on Original Admission: No Wound Location Orientation: Anterior;Left Location: Greater Trochanter Endocrinology Stress Induced Hyperglycemia - Postoperative Insulin gtt transition to SSI HgbA1c= 03/08/2025: Hemoglobin A1C HPLC 5.2 Hematology Acute Blood Loss Anemia No concern for ongoing blood loss CTM daily H/H, no indication for transfusion at this time Infectious Disease Reactive Leukocytosis - - Pt is afebrile at this time, low suspicion for infection - Monitor and trend Prophylactic Antimicrobial Therapy - vancomycin and aztreonam Complexity Acute Lactic Acidosis - Monitor. Management of underlying condition as detailed above. Hypocalcemia - Continue to monitor and replete. Obesity, class I Body mass index is 32.61 kg/m . - Follow with PCP for dietary and lifestyle modifications. ICU Liberation Checklist: CENTRAL LINES: Central Line LDAs Active Central Line Access Devices Name Placement date Placement time Site Days Pulmonary Artery Catheter - Single Lumen 03/10/25 1646 jugular vein, right internal standard thermodilution catheter 03/10/25 1646 -- less than 1 Introducer 03/10/25 Double-lumen internal jugular vein, right 03/10/25 -- internal jugular vein, right 1 Central Line Daily Indication(s) and Daily Review of Necessity 03/11/2025: If multiple lines, please use order shown above as reference when selecting line to be removed Insufficient peripheral venous access for planned therapy Central Line De-escalation Plan: Remove today if can establish 2 PIVs ABCDEF Bundle Reviewed: [x] Yes [] No Breathing: SBT: [] Passed [] Failed [] Does not meet criteria [x] N/A SAT: [] Yes [] No [x] N/A Choice of Analgesia/Sedation: Pain: [x] Controlled [] Uncontrolled Continuous Infusions: [] Sedation [] Analgesia [] NMB [x] None Delirium: CAM: [] Positive [x] Negative [] Unable to assess Restraints: [x] None [] Soft limb [] [place] mitts [] Other Primary person of contact Jayshree Angie (significant other) Prophylaxis Bundle: HOB: 30 degrees Stress ulcer ppx: [] Yes [] Therapeutic [] Home regimen [x] No, not indicated Chemical DVT ppx: [x] Yes [] No, SCDs ordered Therapy Services: BLOOD TYPER: [] Swallow [] Cognitive Eval [] Speaking Valve [x] N/A Early Mobility: PT/OT consulted: [x]Yes [] No, d/t clinical status [] No, pt is independent Current Mobility Status: As able, can start walking and transfers to chair and bed Fall Risk: Assessed for patient fall risk and discussed safety measures during rounding. OBJECTIVE VITALS: Blood pressure 109/67, pulse 77, temperature 97 F (36.1 C), temperature source Temporal, resp. rate22, weight 103.1 kg (227 lb 4.7 oz), SpO2 93%. PHYSICAL EXAM: GENERAL: Alert, oriented x 4, No acute distress HEENT: PEERL, EOMI, MMM HEART: RRR, +S1+S2, No murmurs LUNG: Non-Labored, ABD: Soft, Non-Distended, Non-Tender EXT: Warm, no cyanosis, trace edema in bilateral lower extremities. PULSE: Palpable Bilateral DP Pulses MUSC: Moves all 4 Extremities NEURO: Grossly intact, no acute deficits appreciated PSYCH: Appropriate for the clinical situation SURGICAL INCISIONS CTM Xander Boland DO Cardiovascular ICU/ Cardiac Surgery 03/11/25 12:33 PM Cosigned by Hari Araiza MD at 03/11/2025 1:59 PM EDT Associated attestation - Hari Araiza MD - 03/11/2025 1:59 PM EDT CVICU Attending Critical Care Note ASSESSMENT AND PLAN Meir Landrum is a 69 y.o. patient s/p 3v CABG, LAAL by Bony Garcia MD, PhD on surgery date 03/10/2025. ICU Summary: 03/10 - 3v CABG (ARORA to LAD, SVG to OM, SVG to PDA), LAAL Important points to emphasize in the critical care management are: Low cardiac output syndrome - epi gtt weaned off overnight and CI stable, DC PAC today Acute blood loss anemia - Hgb stable, chest tube output minimal, cont to monitor Acute respiratory insufficiency - extubated overnight, doing reasonably well on 6L NC, optimize pain control, encourage pulm toilet and ambulation ,wean O2 Stress hyperglycemia - transition to SSI when appropriate CAD s/p CABG - cont ASA, start statin, beta roberto to start tonight, NTG gtt x24hrs RELEVANT INFORMATION VITALS: Blood pressure 109/67, pulse 84, temperature 97 F (36.1 C), temperature source Temporal, resp. rate11, SpO2 97%. pH/PCO2/PO2/HCO3: 7.22/61/227/25 (03/10 1907) Documentation of LDA necessity Line necessity: DC CVC and Lyman More necessity: DC more Airway necessity: n/a I spent 33 minutes providing critical care services and making complex medical decisions for this critically ill patient on behalf of Bony Garcia MD, PhD. This time includes examining the patients, reviewing patient data, discussions with other providers and speaking to family members. Total number of minutes spent in direct and indirect care of this critically ill patient excludes proceduretime and time when other physicians were providing critical care. I have discussed this patient with the [facility] and agree with their assessment, plan and decision making or have made amendments where appropriate. Documentation of Comorbid Conditions Complexity. Hyponatremia - Secondary to fluid shifts. Monitor. Obesity, class I There is no height or weight on file to calculate BMI. - Follow with PCP for dietary and lifestyle modifications. Wound Documentation Any conditions listed below are present on admission unless otherwise specified. . GO n/c w home NIPPV - consider NIPPV if needed CAD w previous PCI now s/p CABG - pathway Hari Araiza MD 03/11/25 1:59 PM * Ness Calzada RCP - 03/11/2025 3:40 AM EDT Respiratory Status Update: Meir Landrum has been liberated from mechanical ventilation. Recent Vitals and Breath Sounds: Blood pressure 109/67, pulse 86, temperature 97 F (36.1 C), temperature source Temporal, resp. rate(!) 38, SpO2 97%. Post-Extubation Orders and Indications: Patient extubated to 3lpm NC post NIF & [facility] Respiratory Plan of Care: The patients respiratory plan of care was updated by Ness Calzada RCP 03/11/2025 3:47 AM * Brenda Roberts APRN-AERONAUTICAL DRAFTER - 03/10/2025 11:58 PM EDT CARDIAC SURGERY [facility] IMMEDIATE POST OPERATIVE NOTE Meir Landrum is a 69 y.o. male with a PMH of former tobacco use, HTN, HLD, CAD s/p PCI to LAD 2008, with multivessel CAD. Date of Surgery: 03/10/2025 Procedure: CABG X3 (BIMA, SVG) (Midline) Surgeon: Dr. Bony Garcia Procedure complications: DCCV in OR x3 for Vfib Intra-op Fluids: 2 L crystalloid Intra-op Blood Products: 225 CS Medications EPINEPHrine 0.02 mcg/kg/min (03/11/25 0200) insulin regular 2 Units/hr (03/11/25199) nitroGLYCERIN 10 mcg/min (03/11/25199) Sodium chloride 0.9% 1 mL/hr at 03/11/25199 Mechanical Support Settings: mechanical vent PHYSICAL EXAM Vitals: Blood pressure 109/67, pulse 83, temperature 97 F (36.1 C), temperature source Temporal, resp. rate 16, SpO2 97%. General appearance: cooperative, no distress, appears stated age Lungs: clear decreased equal chest rise Heart: S1, S2 normal Abdomen: soft/ round Extremities: no edema, redness or tenderness in the calves or thighs. Pulses: doppler radial/ DP Skin: pink/ warm/ dry. Midline sternal incision with dressing clean dry intact Neurologic: Grossly normal ASSESSMENT AND PLAN Post-op Surgical Plan: Wean vent to extubate on CPAP respiratory acidosis Monitor chest tube output - correct coagulopathy as indicated Fluid resuscitation as needed -trend lactate Wean drips in the order of Wean epi for CI > 2.2 Replace electrolytes to keep K > 4, Mg > 2, ionized calcium > 4.8. Remove femoral arterial sheath -nitroglycerin 24 hr for graft Goal extubation time: 0 Post-op [facility] Findings: POST-INTERVENTION SUMMARY S/p CABG - Cardiac chambers were evaluated for air and to assess need and success of venting maneuvers. - LV function 55-60% with no notable regional wall motion abnormalities. - Preserved RV function - No evidence of hemodynamically significant valvular dysfunction - No evidence of intracardiac thrombus - No evidence of aortic dissection Chest Tubes - Chest tubes: Anterior mediastinal straight Diaphragm mediastinal angled L pleural angled Pacing Wires - Ventricular Need for Anticoagulation: NA--ASA Quality Review Checklist - DVT Prophylaxis: Heparin Subcutaneous Stress PPI Prophylaxis: Protonix Lines / Access: RIJ Central Venous Catheter SYLVIE Collins 03/11/2025, 2:34 AM Cardiac Surgery [facility] Phone #: [phone] * Hari Araiza MD - 03/10/2025 8:30 PM EDT CVICU Attending Critical Care Note ASSESSMENT AND PLAN Meir Landrum is a 69 y.o. patient s/p 3v CABG, LAAL by Bony Garcia MD, PhD on surgery date 03/10/2025. ICU Summary: 03/10 - 3v CABG (ARORA to LAD, SVG to OM, SVG to PDA), LAAL Important points to emphasize in the critical care management are: Hypovolemia/Vasoplegic syndrome - judicious volume resuscitation, trend lactate Low cardiac output syndrome - wean epi gtt as able Acute blood loss anemia/Coagulopathy - trend Hgb/coags and chest tube output ==> transfuse/correct if indicated Acute respiratory insufficiency - wean vent support, extubate when appropriate, consider nocturnal and PRN NIPPV given home GO Stress hyperglycemia - insulin gtt PRN CAD s/p CABG - ASA now, statin and beta roberto when appropriate RELEVANT INFORMATION VITALS: Blood pressure 109/67, pulse 84, temperature 97 F (36.1 C), temperature source Temporal, resp. rate11, SpO2 97%. pH/PCO2/PO2/HCO3: 7.22/61/227/25 (03/10 1907) Documentation of LDA necessity Line necessity: vasoactive gtts, hemodynamic monitoring More necessity: strict I/Os Airway necessity: wean as able I spent 33 minutes providing critical care services and making complex medical decisions for this critically ill patient on behalf of Bony Garcia MD, PhD. This time includes examining the patients, reviewing patient data, discussions with other providers and speaking to family members. Total number of minutes spent in direct and indirect care of this critically ill patient excludes proceduretime and time when other physicians were providing critical care. I have discussed this patient with the [facility] and agree with their assessment, plan and decision making or have made amendments where appropriate. Documentation of Comorbid Conditions Complexity. Hyponatremia - Secondary to fluid shifts. Monitor. Obesity, class I There is no height or weight on file to calculate BMI. - Follow with PCP for dietary and lifestyle modifications. Wound Documentation Any conditions listed below are present on admission unless otherwise specified. . GO n/c w home NIPPV - consider NIPPV if needed CAD w previous PCI now s/p CABG - pathway Hari Araiza MD 03/10/2025 8:53 PM [facility]* Nursing Notes - Reanna Aviles RN - 03/15/2025 11:53 AM EDT 03/15/25 1153 Patient Choice for Post-Acute Providers Resumption of care? No Establishing care? Yes Level of care for choice Home Health Care Preferred geographic region Discussed and honored Source of list Aidin List was provided to Patient Method of delivery In Person Is the provider part of a joint venture or have a financial relationship with discharging hospital?No Reserved Provider: [facility] [address], [address] [place] [address] Reanna Ramírez RN, MSN, CNOR Clinical Application Technician [facility] Plan of care note* Plan of Care - Navi Davis OT - 03/15/2025 10:46 AM EDT Problem: OT - ADLs Goal: Upper Body Dressing - Patient will complete upper body dressing task seated in chair with modified independence using adaptive equipment/compensatory strategies as needed for improved ability to complete self-care activities. Outcome: Progressing Goal: Lower Body Dressing - Patient will complete lower body dressing tasks with modified independence using adaptive equipment/compensatory strategies as needed for improved ability to complete self-care activities. Outcome: Progressing Problem: OT - Other Goal: Precaution Adherence - Patient will demonstrate 100% adherence to precautions during all ADLsand functional transfers to promote safety during daily routine. Outcome: Progressing Problem: OT - ADLs Goal: Toileting - Patient will complete toileting task with modified independence and adaptive equipment as needed for improved ability to safely complete self-care activities. Outcome: Met Goal: Bathing - Patient will perform full body bathing routine with modified independence while seated for improved ability to complete self-care activities Outcome: Met Problem: OT - Transfers Goal: Transfers Toilet/ Bedside Commode - Patient will transfer to/from toilet/bedside commode withmodified independence for improved ability to safely complete ADLs. Outcome: Met [facility]07-07-2025 Plan of care note* Plan of Care - Xiao Ballard RD - 03/14/2025 2:03 PM EDT Problem: Oral Intake Inadequate Goal: Improved Oral Intake Outcome: Progressing Nutrition Recommendations and Plan of Care: 1. Liberalize to a Heart Healthy Diet - no hx of DM 2. Discontinued Ensure Plus (350kcal, 13g pro, 51g CHO). Will send Ensure Clear (240kcal, 8g pro, 52g CHO) TID for additional kcal & pro. 3. Nutrition will continue to follow per policy and assess more frequently if needed [facility]07-07-2025 Nurse Note* Nursing Notes - Vannesa De Leon RN - 03/14/2025 9:45 AM EDT Removed pt's Left Pleural (#3) Chest Tube per Abiodun Capone APRN-FLORINA orders; educated/explained procedure to pt prior to removal; pt agreeable; pt tolerated chest tube removal well; instructed pt to notify staff for any new CP/SOB; call light provided and within reach; encouraged pt to use call light for any need/assistance; no signs of acute distress noted at this time; POC discussed with Primary RN Vannesa De Leon RN who will continue to closely monitor. [facility]07-07-2025 Plan of care note* Plan of Care - Vannesa De Leon RN - 03/14/2025 7:42 AM EDT Problem: Adult Inpatient Plan of Care Goal: Plan of Care Review Outcome: Progressing - plan of care reviewed with patient Goal: Patient-Specific Goal (Individualized) Outcome: Progressing Goal: Absence of Hospital-Acquired Illness or Injury Outcome: Progressing Goal: Optimal Comfort and Wellbeing Outcome: Progressing - patient sitting comfortably in chair Goal: Readiness for Transition of Care Outcome: Progressing Problem: CABG/Valve (Adult) Goal: Signs and Symptoms of Listed Potential Problems Will be Absent or Manageable Description: Signs and symptoms of listed potential problems will be absent or manageable by discharge/transition of care. Outcome: Progressing Goal: Fluid Balance Description: Patient will demonstrate the desired outcomes by discharge/transition of care. Outcome: Progressing Problem: Swallowing Impairment Goal: Optimal Eating/Swallowing without Aspiration Outcome: Progressing - patient tolerating diet [facility]07-06-2025 Plan of care note* Plan of Care - Vannesa De Leon RN - 03/13/2025 4:23 PM EDT Problem: Adult Inpatient Plan of Care Goal: Plan of Care Review Outcome: Progressing Goal: Patient-Specific Goal (Individualized) Outcome: Progressing Goal: Absence of Hospital-Acquired Illness or Injury Outcome: Progressing Goal: Optimal Comfort and Wellbeing Outcome: Progressing Goal: Readiness for Transition of Care Outcome: Progressing Problem: CABG/Valve (Adult) Goal: Signs and Symptoms of Listed Potential Problems Will be Absent or Manageable Description: Signs and symptoms of listed potential problems will be absent or manageable by discharge/transition of care. Outcome: Progressing Goal: Fluid Balance Description: Patient will demonstrate the desired outcomes by discharge/transition of care. Outcome: Progressing Problem: Swallowing Impairment Goal: Optimal Eating/Swallowing without Aspiration Outcome: Progressing [facility]07-06-2025 Nurse Note* Nursing Notes - Joselyn Lacey RN - 03/13/2025 10:43 AM EDT Procedure: Chest Tube Removal Performed by: Joselyn Lacey RN Chest Tube Removed: right pleural and mediastinal Indications: Chest Tube: Overall drainage of the tube is less than 200 mL over 24 hours or decreasing volumes with less than 75 mL in the last 8 hours/vitals check Pre-Procedure Details: If nurse performing procedure, is the order in the chart: yes Procedure Details: Procedure was reviewed with the patient. Questions were answered and patient was given time to address concerns. Chest tube(s) were confirmed on water seal Patient was placed in a supine position. Bandages and stabilizing suture(s) were removed. No bleeding noted. Aseptic Technique was used throughout the procedure. The patient tolerated the procedure well. No complications were identified. Post-Procedure Details: [facility] notified of procedure completion. Portable chest X-ray is ordered and is pending. Joselyn Lacey RN NURSING OFFICER [facility]07-05-2025 Plan of care note* Plan of Care - Martín Larios RN - 03/12/2025 3:13 AM EDT Problem: Adult Inpatient Plan of Care Goal: Plan of Care Review Outcome: Progressing Goal: Patient-Specific Goal (Individualized) Outcome: Progressing Goal: Absence of Hospital-Acquired Illness or Injury Outcome: Progressing Goal: Optimal Comfort and Wellbeing Outcome: Progressing Goal: Readiness for Transition of Care Outcome: Progressing Problem: CABG/Valve (Adult) Goal: Signs and Symptoms of Listed Potential Problems Will be Absent or Manageable Description: Signs and symptoms of listed potential problems will be absent or manageable by discharge/transition of care. Outcome: Progressing Goal: Fluid Balance Description: Patient will demonstrate the desired outcomes by discharge/transition of care. Outcome: Progressing Problem: Swallowing Impairment Goal: Optimal Eating/Swallowing without Aspiration Outcome: Progressing Problem: Mechanical Ventilation Invasive Goal: Effective Communication Outcome: Completed Goal: Optimal Device Function Outcome: Completed Goal: Mechanical Ventilation Liberation Outcome: Completed Goal: Optimal Nutrition Delivery Outcome: Completed Goal: Absence of Device-Related Skin and Tissue Injury Outcome: Completed Goal: Absence of Ventilator-Induced Lung Injury Outcome: Completed [facility]07-04-2025 Plan of care note* Plan of Care - Abhjiit Lane PT - 03/11/2025 10:14 AM EDT Problem: PT - General Goals Goal: Supine <-> Sit Transfers - Patient will perform supine to/from sit transfers with independence and without use of hospital bed features in order to improve functional mobility and safety. Outcome: Progressing Goal: Sit <-> Stand Transfers - Patient will perform sit to/from stand transfers with independence in order to improve functional mobility and safety. Outcome: Progressing Goal: Ambulation - Patient will ambulate 250 feet with modified independence with/out an assistive device to improve ability to safely navigate home and community. Outcome: Progressing Goal: Precautions - Patient will successfully adhere to post-operative precautions during 100% of functional mobility without verbal cueing in order to maintain safety and reduce risk of injury. Outcome: Progressing [facility]07-04-2025 Plan of care note* Plan of Care - Navi Davis OT - 03/11/2025 9:54 AM EDT Problem: OT - ADLs Goal: Upper Body Dressing - Patient will complete upper body dressing task seated in chair with modified independence using adaptive equipment/compensatory strategies as needed for improved ability to complete self-care activities. Outcome: Progressing Goal: Lower Body Dressing - Patient will complete lower body dressing tasks with modified independence using adaptive equipment/compensatory strategies as needed for improved ability to complete self-care activities. Outcome: Progressing Goal: Toileting - Patient will complete toileting task with modified independence and adaptive equipment as needed for improved ability to safely complete self-care activities. Outcome: Progressing Goal: Bathing - Patient will perform full body bathing routine with modified independence while seated for improved ability to complete self-care activities Outcome: Progressing Problem: OT - Transfers Goal: Transfers Toilet/ Bedside Commode - Patient will transfer to/from toilet/bedside commode withmodified independence for improved ability to safely complete ADLs. Outcome: Progressing Problem: OT - Other Goal: Precaution Adherence - Patient will demonstrate 100% adherence to precautions during all ADLsand functional transfers to promote safety during daily routine. Outcome: Progressing [facility]07-03-2025 Plan of care note* Plan of Care - Yuliana Alvarado MD - 03/10/2025 8:01 PM EDT Cardiac surgery post-op plan of care CABGx3 (ARORA-LAD, SVG-OM, SVG-PDA), LAAL V wires Chest tubes: Anterior mediastinal straight Diaphragm mediastinal angled L pleural angled Plans: Chest tube removal: per protocol Wire removal: CUT at time of removal Arterial line: L fem, radial due to unreliable radial Antiplatelet: Asa Anticoagulation: none Yuliana Alvarado MD Cardiothoracic Surgery, Fellow [facility] Work Phone: [phone]) 178-303807-03-2025 Surgery Postoperative evaluation and management note* Brief Op Note - Yuliana Alvarado MD - 03/10/2025 7:59 PM EDT Meir Landrum ([id number]) PRE OPERATIVE DIAGNOSIS 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 [I25.119] POST OPERATIVE DIAGNOSIS 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 [I25.119] PROCEDURE PERFORMED Procedure(s) (LRB): CABG X3 (BIMA, SVG) (Midline) PRIMARY CLOSURE Yes INTRAOPERATIVE FINDINGS CABGx3 (ARORA-LAD, SVG-OM, SVG-PDA), LAAL V wires Chest tubes: Anterior mediastinal straight Diaphragm mediastinal angled L pleural angled Plans: Chest tube removal: per protocol Wire removal: CUT at time of removal Arterial line: L fem, radial due to unreliable radial Antiplatelet: Asa Anticoagulation: none SURGEON Surgeons and Role: * Bony Garcia MD, PhD - Primary ANESTHESIOLOGIST Anesthesiologist: Elena Skaggs MD; Michael Green MD; Lillian Borges MD Cross Tie Turner Assisting: Elbert Crabtree MD; Sona Kunz MD; America Gomez MD Rigging Loft Repairer: Eliseo Retana; Bibiana Archer SURGICAL STAFF Energy Management Specialist: Chelsea Grewal RN Registered Nurse Location Man: Luis Martinez RN Relief Energy Management Specialist: Toya Thompson RN; Tyler Denise RN; Agatha Solomon RN Relief Scrub: Mellisa Olvera RN Scrub Person: Naomi Villar Fellow: Yuliana Alvarado MD Sorter Pricer: Adam Urena COMPLICATIONS None ESTIMATED BLOOD LOSS Unable to calculate due to CPB SPECIMENS See below ID Type Source Tests Collected by Time Destination 1 : Left atrial appendage Permanent SURG PATH SURG PATH REQUEST Bony Garcia MD, PhD 03/10/2025 [id number] Yuliana Alvarado MD March 10, 2025 7:59 PM Cosigned by Bony Garcia MD, PhD at 03/12/2025 6:45 PM EDT [facility]07-03-2025 Nurse Surgical operation note* Toya Thompson RN - 03/10/2025 7:26 PM EDT Report called to 4 jeffrey ICU nurse [facility]07-03-2025 Nurse Note* Toya Thompson RN - 03/10/2025 7:26 PM EDT Report called to 4 jeffrey ICU nurse [facility] Surgery Postoperative evaluation and management note* Op Note - Bony Garcia MD, PhD - 03/10/2025 12:00 PM EDT Operative Report DATE PERFORMED: 03/10/2025 PREOPERATIVE DIAGNOSIS: Three-vessel coronary artery disease. POSTOPERATIVE DIAGNOSIS: Three-vessel coronary artery disease. PROCEDURES PERFORMED: 1. Coronary artery bypass graft x3 with left internal mammary artery to left anterior descending artery, reverse saphenous vein graft to obtuse marginal branch and a separate reverse saphenous vein graft to the posterior descending artery. 2. On-pump cardiopulmonary oxygenator. 3. Ligation of left atrial appendage. 4. Endoscopic recovery of left greater saphenous vein. 5. Placement of a left femoral artery 5-Algerian sheath for hemodynamic monitoring and access. 6. Placement of negative pressure wound VAC over closed incision. SURGEON(S): Bony Garcia MD, PhD. [facility] ASSISTANTS: 1. CORTNEY Alas. 2. Yuliana Alvarado MD. DESCRIPTION OF PROCEDURE: After discussion in which indications, risks, benefits and alternatives were explained, informed consent was obtained. Of note, Mr. Landrum was smoking up until the day of surgery. He was having unstable anginal symptoms, so we opted to proceed with the operation, though between this and his diabetes aborted the use of bilateral mammaries. He was taken to the operating room, placed supine position. After general endotracheal anesthesia was administered by cardiac anesthesiologist and appropriate monitoring. His neck, chest, groins, and legs were scrubbed, prepped and draped in the usual sterile fashion after a pause for patient and procedure identification were performed and completed, and receiving appropriate preoperative antibiotics, median sternotomy was in a standard fashion. Electrocautery and bone wax was used for hemostasis. Left diallo-sternum was elevated. Left internal mammary artery was mobilized at the origin below the costal margin with electrocautery and Ligaclip being used for hemostasis. Left pleura was entered intentionally. Concurrent to this, left greater saphenous vein was procured using standard endoscopic technique. Once it was mobilized, brought outside the body, retrograde cannulated and flushed. Branches were secured with Ligaclip and/or suture. At the end of the procedure leg incisions were closed in multiple layers of absorbable suture wrapped with sterile Pedrito bandage. At this point, our radial arterial line became damped and was unable to draw back. We were asked by our anesthesiologist to place the left femoral 5-Algerian sheath, which we did using percutaneous Seldinger technique, as well as for hemodynamic monitoring and access through the remainder of case. After the conduit was mobilized systemic dose of heparin was given. The distal portion of the mammary was transected, spatulated, made hemostatic with a vinson dog occluder. Regular sternal retractor was introduced, sternum was spread. Pericardium was incised to the diaphragm and the innominate vein with lateral extensions being retracted with pericardial stay stitches. Standard aortic and dual-stage venous cannulation was performed, as well as ascending aortic root vent. After appropriate HD cardiopulmonary bypass was initiated and full flows achieved, respirations were ceased. Aortic crossclamp was introduced. Antegrade cardioplegia was given. A prompt arrest was achieved. Myocardial protection was facilitated with topical ice-cold poured saline given to the anterior surface of the heart, as well as mild systemic cooling. After cardioplegia was given, we turned our attention to the inferior wall. The PDA was identified, incised both proximally and distally, and reverse saphenous vein graft was anastomosed in end-to-side fashion using a running 7-0 Prolene suture. Prior to completing the anastomosis, toe and heel were probed with a linear probe to ensure patency. The antegrade cardioplegia was given in the vein demonstrated good flow and hemostasis. Heart returned to normal position. Vein was cut to appropriate length and we gave antegrade cardioplegia down the aortic root. We then turned our attention to the lateral wall. Obtuse marginal branch was identified and incised both proximally and distally. The reverse saphenous vein graft anastomosed to the obtuse marginal in end-to-side fashion using running 7-0 Prolene suture. Prior to completing the anastomosis, toe and heel were probed with a linear probe to ensure patency. Antegrade cardioplegia down the vein demonstrated good flow and hemostasis. Heart returned to normal position. We gave antegrade cardioplegia down the aortic root. Then we exposed the anterior wall. The LAD was incised, probed proximally and distally, and left internal mammary artery was anastomosed in end-to-side fashion running 7-0 Prolene suture. Prior to completing the anastomosis, toe and heel were probed with a linear probe to ensure patency. Vinson occluder was removed demonstrating blush of blood distally. Good hemostasis was confirmed with MiraQ flow probe. The vinson occluder was reapplied, we gave antegrade cardioplegia down the aortic root. Two aortotomies were made, punched 4 mm in diameter. The veins were anastomosed to respective aortotomy in end-to-side fashion using running 6-0 Prolene suture. Proximal marking washer was replaced. Aortic cross-clamp was removed with de-airing through the root vent. Epicardial and ventricular pacing wires were placed, we confirmed flow with MiraQ flow probe. We checked for hemostasis, resumed ventilations, and weaned from cardiopulmonary bypass. Once off bypass and good hemostasis, the venous cannula was removed. After appropriate de-airing, the root vent was removed. We then finalized flow with MiraQ flow probe and the protamine sulfate was administered. After cardiotomy blood returned to him, the aortic cannula was removed as well. The anterior mediastinum was irrigated. The sternum was reapproximated using interrupted sternal wires. Multiple layers of absorbable sutures were placed and negative pressure wound VAC was placed over closed incision. Cardiopulmonary bypass time was 96 minutes. Cross-clamp time was 83 minutes. Flow in the ARORA to LAD was 37 cc/minute on pump and 23 cc/minute with PI 2.3 off pump. Flow in the vein to obtuse marginal branch of 36 cc/minute. The PI of 2.5 and the vein to the PDA was 29 cc for the PI of 2.9. Dictated By: Bony Garcia MD, PHD Bony Garcia MD, PHD ATTENDING BAW/Gaby JOB: [id number] DOC: [id number] [facility]06-27-2025 Miscellaneous Notes* Therapy Note - Storm Dominguez RCP - 03/04/2025 4:00 PM EDT Images from the original note were not included. PULMONARY DIAGNOSTICS AMBULATORY ASSESSMENT FALL ASSESSMENT: HISTORY OF FALLING? no DATE OF LAST KNOWN FALL: ALTERED MOBILITY AND/OR GAIT?no ALTERED MENTAL STATUS? no FALL PREVENTION AND PROTECTION SAFETY MEASURES: PHYSICIAN AVAILABLE AND NOTIFIED USED ASSISTIVE DEVICES (WHEELCHAIR, ETC) OBTAINED ASSISTANCE FROM CO-WORKER PATIENT ESCORTED OR FAMILY MEMBER/ATTENDANT PRESENT INSTRUCTED PATIENT ON CALLING FOR ASSISTANCE LEFT DOOR OPEN FOR MONITORING OR FAMILY MEMBER/ATTENDANT PRESENT HEART RATE: 74 BLOOD PRESSURE: 126/87 SpO2: 97 Temperature:98.2 [employer] PAIN RATING AT REST: 0 Provider Notified (if applicable): (Providers name, Date and Time) documented in this encounterMadison Health06-27-2025 Progress note* Therapy Note - Storm Dominguez RCP - 03/04/2025 4:00 PM EDT Images from the original note were not included. PULMONARY DIAGNOSTICS AMBULATORY ASSESSMENT FALL ASSESSMENT: HISTORY OF FALLING? no DATE OF LAST KNOWN FALL: ALTERED MOBILITY AND/OR GAIT?no ALTERED MENTAL STATUS? no FALL PREVENTION AND PROTECTION SAFETY MEASURES: PHYSICIAN AVAILABLE AND NOTIFIED USED ASSISTIVE DEVICES (WHEELCHAIR, ETC) OBTAINED ASSISTANCE FROM CO-WORKER PATIENT ESCORTED OR FAMILY MEMBER/ATTENDANT PRESENT INSTRUCTED PATIENT ON CALLING FOR ASSISTANCE LEFT DOOR OPEN FOR MONITORING OR FAMILY MEMBER/ATTENDANT PRESENT HEART RATE: 74 BLOOD PRESSURE: 126/87 SpO2: 97 Temperature:98.2 [employer] PAIN RATING AT REST: 0 Provider Notified (if applicable): (Providers name, Date and Time) [facility]06-05-2025 History of Present illness Narrative* Luis Antonio Arias MD - 02/10/2025 4:00 PM EDT Images from the original note were not included. Primary care provider: Pratibha Ronquillo DO (General) Dear Dr. Ronquillo, I had the pleasure of seeing your patient, Meir Landrum, at the [facility] on 02/10/2025 in follow-up. I have reviewed pertinent outside medical records available at this time regarding this patient. As you recall, this 69 y.o. male is managed by our group for concerns of coronary artery disease status post remote LAD PCI, hyperlipidemia, with recent cardiac catheterization demonstrating multivessel coronary artery disease with a recommendation for CABG. Chief Complaint Patient presents with Follow-up Cath HPI: Initial HPI from: 07/21/2023 This is a 68-year-old white male who presents for a new outpatient cardiovascular visit with a history of underlying CAD status post PCI-LAD at [facility] (2008), hyperlipidemia, for concerns of chest discomfort concerning for angina pectoris. He has previously been followed through the [facility] in [place], [place]. He has requested transferring his care to [facility] Cardiovascular Medicine. He states he has been doing well until a short time ago. He developed concerns of centralized chestpressure. He states it was somewhat random. It did not necessarily radiate out of his chest. He canhave associated dyspnea on exertion. There was no obvious orthopnea, PND, or worsening peripheral pitting edema. He has had no near-syncope or syncope. He states following his chest pressure events he then developed an respiratory tract related issue. He tested negative for COVID-19. He was evaluated by his PCP. He was placed on antibiotic therapy. He states he feels somewhat better but still feels he has drainage from his upper respiratory tract. He is status post a previous hip surgery. He states he has been dealing with plantar fasciitis. He has been evaluated by other physicians and has changed shoes, insoles, and had various injections performed. He knows he has had his lipid labs performed in the past. He does not believe he is undergone any recent cardiovascular diagnostic studies. Some of his previous studies are noted below. They have included an ECG, and echocardiogram, and his cardiac catheterization/PCI procedure. Again, this was performed at [facility] and included PCI to the LAD distribution. He had an ECG in the office. He was noted to have normal sinus rhythm. He had no acute ECG changes. Interval History: 01/17/2025 History of Present Illness The patient, a 69-year-old male, presents for an outpatient cardiovascular follow-up visit. He has a medical history significant for coronary artery disease (CAD), status post percutaneous coronary intervention (PCI) of the left anterior descending (LAD) artery performed in 2008 at the [facility] ([facility]), and hyperlipidemia. He notes that he has been having symptoms of chest discomfort radiating to his neck and to his jaw area. He states this is similar to the symptoms he had prior to 2008 when he had his PCI performed at [facility]. He states the jaw discomfort has been what is been most concerning to him. He notes that he can feel somewhat short of breath with these events and with activity. He has not had orthopnea or PND or peripheral pitting edema. He states there has been times when he is felt somewhat lightheaded but he has had no loss of consciousness episode/syncope. He does have nitroglycerin tablets however he states he has not use them. He has been hoping that his symptoms were related to gastroesophageal reflux disorder. He did have an ECG in the office. He was noted to be in normal sinus rhythm. He had no acute ECG changes. He did have a left axis deviation. He states he just had laboratory work done through his PCP office. Based upon the information he has received this included a CMP, a lipid profile, and a PSA. He believes there may have been other labs performed as well. These labs have not yet been received for review. His other cardiovascular studies available for review are noted below. They have been discussed with him. Interval History: 02/10/2025 History of Present Illness The patient is a 69-year-old male presenting for an outpatient cardiovascular follow-up. He has a history of coronary artery disease (CAD) status post percutaneous coronary intervention (PCI) and hyperlipidemia. Recently, he underwent a repeat diagnostic cardiac catheterization, which revealed progr essive multivessel coronary artery disease. Consequently, coronary artery bypass grafting (CABG) has been recommended. At the present time he states that he has still been somewhat active at home. However he notes thatwith activity he does start to get tired and fatigued much easier. He has not noted any acute chestdiscomfort. There has been no orthopnea or PND or peripheral pitting edema. He has had no near-syncope or syncope. He states that since initiating statin therapy he has had significant joint discomfort. He states he feels like he has difficulty moving his joints. He has undergone evaluation with cardiac catheterization. He did have multivessel disease involvingboth the right coronary artery, the LAD system, and the LCX system. He was recommended for CABG. He has a pre CABG transthoracic echocardiogram scheduled for this afternoon. He has an appointment scheduled for Dr. Garcia on 02/22/2025 for his CABG evaluation. Historical information was reviewed in the medical record. The following historical elements were reviewed by a provider in the specific [facility] and updated as appropriate: Allergies Allergen Reactions Penicillins Itching Itching Rosuvastatin Numbness Other reaction(s): Other Simvastatin Other reaction(s): Myalgias, Other Ciprofloxacin Numbness Bactrim [Sulfamethoxazole-Trimethoprim] Hives and Swelling Meloxicam Hives It is tolerable if he uses benadryl. Varenicline Other reaction(s): Mental Status Change Depression Outpatient Encounter Medications as of 02/10/2025 Medication Sig Dispense Refill acetaminophen 325 MG tablet Take 2 tablets by mouth every 6 hours as needed for Mild Pain. Aspirin [address] tablet Take 1 tablet by mouth daily. Atorvastatin 20 MG tablet Take 1 tablet by mouth daily. 90 tablet 3 Ezetimibe 10 MG tablet Take 1 tablet by mouth daily. 90 tablet 3 nitroGLYCERIN 0.[address] 1 tablet under tongue every 5 minutes as needed for Chest pain. max = 3 doses. If CP persists after 1st dose, call 911 25 tablet 3 pantoprazole [address] tablet DR Take 1 tablet by mouth daily. gabapentin 100 MG capsule Take 1 capsule by mouth 3 times daily for 10 days. This medication is used for acute post-operative pain (Patient not taking: Reported on 01/17/2025) 30 capsule 0 Isosorbide mononitrate 30 MG Tab SR 24 HR tablet XL Take 1 tablet by mouth daily every morning. 30 tablet 6 Metoprolol succinate (Toprol XL) 25 MG tablet XL Take 1 tablet by mouth daily. 30 tablet 6 oxyCODONE 5 MG tablet Take 1-2 tab by mouth every 4-6 hours as needed for post- op pain (Patient nottaking: Reported on 01/17/2025) 50 tablet 0 No facility-administered encounter medications on file as of 02/10/2025. Past Medical History: Diagnosis Date Arthritis CAD (coronary artery disease) Congestive heart failure Diverticulitis Hyperlipidemia VT (myocardial infarction) Past Surgical History: Procedure Laterality Date ARTHROPLASTY SHOULDER TOTAL Left 08/14/2022 Laterality: Left; Surgeon: Robin Mcguire MD; Location: [facility] MA[facility] OR TENODESIS BICEPS LONG TENDON Left 08/14/2022 Laterality: Left; Surgeon: Robin Mcguire MD; Location: [facility] MAIN OR ARTHROPLASTY HIP TOTAL ANTERIOR APPROACH Right 07/02/2021 Laterality: Right; Surgeon: Amarjit Marroquin MD; Location: [facility] MAIN OR ASPIRATION OR INJECTION LARGE JOINT BURSA Left 07/02/2021 Laterality: Left; Surgeon: Amarjit Marroquin MD; Location: [facility] MAIN OR CORONARY STENT PLACEMENT 2009 AORTIC STENT MENISCECTOMY Left SHOULDER ARTHROSCOPY Right Family History Problem Relation Age of Onset Uterine Cancer Mother Heart Disease - Other Mother Heart Disease - Other Father Heart Failure Father Heart Disease - Other Maternal Uncle Myocardial Infarction Maternal Uncle Heart Disease - Other Maternal Grandfather Myocardial Infarction Maternal Grandfather Heart Disease - Other Paternal Grandfather Myocardial Infarction Paternal Grandfather Social History Socioeconomic History Marital status: Single Spouse name: Not on file Number of children: Not on file Years of education: Not on file Highest education level: Not on file Occupational History Not on file Tobacco Use Smoking status: Some Days Current packs/day: 0.50 Average packs/day: 1 pack/day for 48.1 years (47.4 ttl pk-yrs) Types: Cigarettes Start date: 09/08/1974 Last attempt to quit: 04/30/2021 Smokeless tobacco: Never Tobacco comments: Not a heavy smoker and have quit several times in last 10 years Vaping Use Vaping status: Every Day Substance and Sexual Activity Alcohol use: Not Currently Comment: Less than once a week Drug use: Never Sexual activity: Yes Partners: Female control/protection: Female Sterilization Comment: My had a hysterictomy in 2018 Other Topics Concern Occupational Exposure No Hobby Hazards No Social History Narrative Not on file Social Drivers of Health Financial Resource Strain: Not on file Food Insecurity: Not on file Transportation Needs: Not on file Physical Activity: Not on file Stress: Not on file Social Connections: Not on file Personal Safety: Not on file Housing Stability: Not on file Review of Systems Cardiovascular: Positive for chest pain. Negative for claudication, cyanosis, dyspnea on exertion, irregular heartbeat, leg swelling, near-syncope, orthopnea, palpitations and paroxysmal nocturnal dyspnea. On physcial exam today, the vital signs are as follows: Vitals: 02/10/25 1355 BP: 130/84 Pulse: 75 SpO2: 97% Weight: 102.1 kg (225 lb) Height: 1.778 m (5' 10") Body mass index is 32.28 kg/m . Physical Exam Vitals and nursing note reviewed. Constitutional: Appearance: Normal appearance. He is well-developed, well-groomed and overweight. HENT: Head: Normocephalic and atraumatic. Cardiovascular: Rate and Rhythm: Normal rate and regular rhythm. No extrasystoles are present. Chest Wall: PMI is not displaced. No thrill. Pulses: Carotid pulses are 2+ on the right side and 2+ on the left side. Radial pulses are 2+ on the right side and 2+ on the left side. Posterior tibial pulses are 2+ on the right side and 2+ on the left side. Heart sounds: S1 normal and S2 normal. No murmur heard. No friction rub. No gallop. Pulmonary: Effort: Pulmonary effort is normal. Breath sounds: Normal breath sounds. Abdominal: General: Abdomen is flat. Bowel sounds are normal. Palpations: Abdomen is soft. Musculoskeletal: General: Normal range of motion. Cervical back: Normal range of motion. Right lower leg: No edema. Left lower leg: No edema. Skin: General: Skin is warm and dry. Neurological: General: No focal deficit present. Mental Status: He is alert. Psychiatric: Mood and Affect: Mood normal. Relevant diagnostic data includes the following: Lab Results Component Value Date WBC 11.85 (H) 02/03/2025 HGB 17.7 (H) 02/03/2025 HCT 53.1 (H) 02/03/2025 PLATELET 271 02/03/2025 MCV 91.7 02/03/2025 Lab Results Component Value Date SODIUM 139 02/03/2025 POTASSIUM 3.9 02/03/2025 CHLORIDE 103 02/03/2025 CO2 26 02/03/2025 BUN 21 02/03/2025 CREATSERUM 1.05 02/03/2025 GLUCOSE 152 (H) 07/03/2021 Lab Results Component Value Date HGBA1C 5.2 07/31/2022 I have independently reviewed the following images/tracings: as noted below. Supplemental Information: [facility]ROCARDIOGRAM 08[facility]09/2022 [facility] 07[facility]23 [facility] 01[facility]17[facility]2025 [facility] ECHOCARDIOGRAM 05/24/2009 [facility] CONCLUSIONS S/p NSTEMI and Stent to LAD. Technically Difficult and Limited Study. 1. Grossly normal LV and RV systolic function. 2. Valves and aorta not well seen. 3. Trivial pericardial effusion. ECHOCARDIOGRAM 09/03/2023 (Final) Interpretation Summary Technically difficult study, endocardium not well seen Normal left ventricular size and low normal systolic function. LVEF of 50-55%. Proximal anteroseptum appears hypekinetic. Normal diastolic function Normal right ventricular size and systolic function No significant valvular abnormalities RVSP of 23 mmHg MYOCARDIAL PERFUSION STUDY 09/03/2023 [facility] Lexiscan Stress myocardial perfusion scan within normal limits. No evidence of ischemia. No evidence of prior myocardial injury. Normal left ventricular systolic function ( 58% ). CARDIAC CATHETERIZATION / PCI 05/23/2009 [facility] Left Main Angiographically free of disease. LAD A 80% stenosis was seen in a large Proximal LAD. It was characterized as a class C (Complex) lesion. Circumflex Stenosis of greater than or equal to 50% noted for this vessel. RCA Stenosis of greater than or equal to 50% noted for this vessel. Bypass Grafts None Other Pertinent Medical Problems: None Current Medications: ASA (mg), Heparin (units), Nitroglycerin (mcg), Plavix (mg), Statin PROCEDURE Site: Proximal LAD Artery Size: 3.56 ACC/AHA: C *lesion length > 20mm Primary Treatment: Intended - Balloon Angioplasty 12-austin Result: 80% to 60% stenosis, MURIEL 3 Complications: None Final Result: Successful Final Complications: None Site: Proximal LAD Artery Size: 3.56 ACC/AHA: C *lesion length > 20mm Primary Treatment: Intended - Drug Eluting Stent 18-austin Result: 60% to 10% stenosis, MURIEL 3 Complications: None Final Result: Successful Final Complications: None Site: Proximal LAD Artery Size: 3.56 ACC/AHA: C *lesion length > 20mm Primary Treatment: Intended - Drug Eluting Stent 16-austin Result: 60% to 10% stenosis, MURIEL 3 Complications: None Final Result: Successful Final Complications: None Site: Proximal LAD Artery Size: 3.56 ACC/AHA: C *lesion length > 20mm Primary Treatment: Intended - Balloon Angioplasty 20-austin Result: 10% to 0% stenosis, MURIEL 3 Complications: None Final Result: Successful Final Complications: None 02/03/2025 [facility]: - right dominant system -RCA : mRCA up to 80% stenosis -LAD: at previously placed proximal LAD stent there is up to 80%-90% ISR -LCx: proximal LCx just after OM1 there is up to 80% focal stenosis. 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 Recommendations: CTS Referral placed for expedited eval for CABG In summary, Mr. Landrum is managed today for the following issues: Angina pectoris Based upon his clinical course and findings he will initiate additional medical therapy. This will include isosorbide/mononitrate/Imdur at 30 mg p.o. q.day. It will also include metoprolol XL at 25 mg p.o. q.day. He will continue with his pre CABG evaluation with his transthoracic echocardiogram today. 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 His atherosclerotic coronary artery disease has progressed. He will continue medical management. Unfortunately he appears to be intolerant to statins. He will place his atorvastatin on hold. He will continue his ezetimibe/Zetia. If his symptoms improve without statins then consideration could be given to attempting an alternative statin. Otherwise he may need to remain on his ezetimibe/Zetia and consider other options as well in the future such as a PCSK9 inhibitor. H/O heart artery stent His cardiac catheterization films were reviewed with him. He was shown his coronary arteries and his coronary artery lesions including the progression of disease involving the proximal portion of hisLAD stent. He will continue his current medical management as adjusted. He will proceed with his CABG evaluation. Hyperlipidemia As described above he will place his atorvastatin on hold. He will monitor for improvement in his joint related discomforts. He will continue his non statin at this time with respect to his ezetimibe/Zetia. His clinical course will help guide further evaluation care and medical adjustment. I have ordered the following: Diagnoses and all orders for this visit: Angina pectoris 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 H/O heart artery stent Hyperlipidemia, unspecified hyperlipidemia type Other orders - Metoprolol succinate (Toprol XL) 25 MG tablet XL; Take 1 tablet by mouth daily. - Isosorbide mononitrate 30 MG Tab SR 24 HR tablet XL; Take 1 tablet by mouth daily every morning. The above was discussed and reviewed with him. He was agreeable to this approach. We will plan on Return in about 3 months (around 05/13/2025).. If I can be of any further assistance, please do not hesitate to contact me. Sincerely, Luis Antonio Arias MD, [facility] [employer] - Clinical Division of Cardiovascular Medicine Department of Internal Medicine [facility] Please be aware that portions of this note may have been completed with a voice recognition software system and an artificial intelligence system with the knowledge and approval of the patient. Despite efforts to edit the note mis- transcribed words may still be present. * Chapojosé miguel Rizzo - 02/10/2025 4:00 PM EDT This Reclamation Furnace Operator verified the patients name and date of . documented in this encounterOS[facility] [id number] Evaluation + Plan note* Assessment & Plan Note - Luis Antonio Arais MD - 02/10/2025 2:35 PM EDTAssociated Problem(s): Hyperlipidemia As described above he will place his atorvastatin on hold. He will monitor for improvement in his joint related discomforts. He will continue his non statin at this time with respect to his ezetimibe/Zetia. His clinical course will help guide further evaluation care and medical adjustment. [facility]06-05-2025 Evaluation + Plan note* Assessment & Plan Note - Luis Antonio Arias MD - 02/10/2025 2:35 PM EDTAssociated Problem(s): H/O heart artery stent His cardiac catheterization films were reviewed with him. He was shown his coronary arteries and his coronary artery lesions including the progression of disease involving the proximal portion of hisLAD stent. He will continue his current medical management as adjusted. He will proceed with his CABG evaluation. [facility]06-05-2025 Evaluation + Plan note* Assessment & Plan Note - Luis Antonio Arias MD - 02/10/2025 2:35 PM EDTAssociated Problem(s): 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 His atherosclerotic coronary artery disease has progressed. He will continue medical management. Unfortunately he appears to be intolerant to statins. He will place his atorvastatin on hold. He will continue his ezetimibe/Zetia. If his symptoms improve without statins then consideration could be given to attempting an alternative statin. Otherwise he may need to remain on his ezetimibe/Zetia and consider other options as well in the future such as a PCSK9 inhibitor. [facility]06-05-2025 Miscellaneous Notes* Assessment & Plan Note - Luis Antonio Arias MD - 02/10/2025 2:35 PM EDTAssociated Problem(s): Hyperlipidemia As described above he will place his atorvastatin on hold. He will monitor for improvement in his joint related discomforts. He will continue his non statin at this time with respect to his ezetimibe/Zetia. His clinical course will help guide further evaluation care and medical adjustment. * Assessment & Plan Note - Luis Antonio Arias MD - 02/10/2025 2:35 PM EDT Associated Problem(s): H/O heart artery stent His cardiac catheterization films were reviewed with him. He was shown his coronary arteries and his coronary artery lesions including the progression of disease involving the proximal portion of hisLAD stent. He will continue his current medical management as adjusted. He will proceed with his CABG evaluation. * Assessment & Plan Note - Luis Antonio Arias MD - 02/10/2025 2:35 PM EDT Associated Problem(s): 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 His atherosclerotic coronary artery disease has progressed. He will continue medical management. Unfortunately he appears to be intolerant to statins. He will place his atorvastatin on hold. He will continue his ezetimibe/Zetia. If his symptoms improve without statins then consideration could be given to attempting an alternative statin. Otherwise he may need to remain on his ezetimibe/Zetia and consider other options as well in the future such as a PCSK9 inhibitor. * Assessment & Plan Note - Luis Antonio Arias MD - 02/10/2025 2:34 PM EDT Associated Problem(s): Angina pectoris Based upon his clinical course and findings he will initiate additional medical therapy. This will include isosorbide/mononitrate/Imdur at 30 mg p.o. q.day. It will also include metoprolol XL at 25 mg p.o. q.day. He will continue with his pre CABG evaluation with his transthoracic echocardiogram today. documented in this encounterOSOhiohealth [facility]06-[facility] Evaluation + Plan note* Assessment & Plan Note - Luis Antonio Arias MD - 02/10/2025 2:34 PM EDTAssociated Problem(s): Angina pectoris Based upon his clinical course and findings he will initiate additional medical therapy. This will include isosorbide/mononitrate/Imdur at 30 mg p.o. q.day. It will also include metoprolol XL at 25 mg p.o. q.day. He will continue with his pre CABG evaluation with his transthoracic echocardiogram today. [facility]06-05-2025 History of Present illness Narrative* Lyndon Jacinto RDCS - 02/10/2025 2:30 PM EDT Meir Landrum was offered and declined a Medical Patient Care Representative for this exam/procedure/test 02/10/2025. documented in this encounterMadison Health05-29-2025 Nurse Note* Nursing Notes - Андрей Phillip RN - 02/03/2025 2:25 PM EDT Discharge instructions and printed AVS reviewed with patient by Misael MARTINEZ, all questions answered. Pt verbalizes understanding. IV dc'd with no difficulty and catheter tip intact. Telemetry dc'd. VS stable at time of discharge. Patient being discharged to home by ambulatory with family. No patient belongings left at bedside. Post procedure recovery without events. Right radial site without bleeding or hematoma, palpable 2+ pulses. Ambulates prior to DC without difficulty. [facility]05-29-2025 Miscellaneous Notes* Nursing Notes - Андрей Phillip RN - 02/03/2025 2:25 PM EDT Discharge instructions and printed AVS reviewed with patient by Misael MARTINEZ, all questions answered. Pt verbalizes understanding. IV dc'd with no difficulty and catheter tip intact. Telemetry dc'd. VS stable at time of discharge. Patient being discharged to home by ambulatory with family. No patient belongings left at bedside. Post procedure recovery without events. Right radial site without bleeding or hematoma, palpable 2+ pulses. Ambulates prior to DC without difficulty. * Brief Op Note - Anirudh Rutledge MD - 02/03/2025 12:37 PM EDT Preliminary Report - Brief Cardiac Catheterization Procedure Note Meir Landrum ([id number]) Pre Procedural Diagnosis Angina pectoris [I20.9] 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 [I25.119] H/O heart artery stent [Z95.5] Hyperlipidemia, unspecified hyperlipidemia type [E78.5] Post Procedural Diagnosis Obstructive CAD, multivessel Procedure Performed Left heart catheterization and Coronary angiogram Access Site/Hemostasis Right radial, artery, TR Compression Band Findings Left Ventricular End Diastolic Pressure: Normal Left Ventricular Ejection Fraction: Not assessed Preliminary Results of Angiography Obstructive CAD Percutaneous Coronary Intervention No Intervention Intraprocedure Anticoagulation Heparin Post-procedure Anticoagulation If anticoagulation is indicated per primary team, may restart 4 hours after hemostasis has been achieved Estimated Blood Loss Minimal Complications None Admission Does patient need to be admitted: No Surgeon Surgeons and Role: * Anirudh Rutledge MD - Primary Procedural Staff Monitoring Nurse: Lulu Jimenes RN Automation Tender: Leann Greene Documenter: Justyna De La Paz RN Full report to follow Anirudh Rutledge MD February 03, 2025 12:37 PM * Nursing Notes - Madiha Zheng RN - 02/03/2025 10:21 AM EDT Pt arrives to room 2428 in [facility] for [facility]. ECG not ordered for this admission. IV started in left arm.Labs drawn and sent. 0.9 NS IVF initiated @ 100mL/ hr per pump. Pt prep completed. Valuables given to . Clothes secured in room. Questions about procedure answered. Family brought to bedside. Bedin low position, side rail up x2 and call light given to pt. Tele monitor shows NSR. 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 You are to arrive at [facility] registration on the 1st floor at 10:00 AM You may use matlab developer parking ($10) or park in the [employer] [facility] [facility] just past the [place] ($3). There is a walkway from the 2nd floor of the garage [facility] You are to have nothing to eat after midnight. You may drink CLEAR liquids up to the time you arrive for the procedure. (water, juice, clear soda,tea, coffee NO CREAMERS). +++++++++++++++++++++++++++++++++++++++++++++++++++++++++++++++++ MEDICATIONS: YOU MAY TAKE AM MEDICATIONS. +++++++++++++++++++++++++++++++++++++++++++++++++++++++++++++++++ PLEASE BRING A COMPLETE AND ACCURATE LIST OF ALL THE MEDICATIONS THAT YOU TAKE ON A REGULAR BASIS. BRING AN OVERNIGHT BAG JUST IN CASE YOU HAVE TO SPEND THE NIGHT. JUST ESSENTIALS YOU WOULD NEED FORBED. YOU ARE HAVING A LEFT HEART CATH - Expect to be at the hospital 6 - 8 hrs. If you get a stent, you may have to stay the night. ++++++++++++++++++++++++++++++++++++++++++++++++++++++++++++++++++ IF YOU HAVE SLEEP APNEA AND YOU REQUIRE CPAP, bring it with you. ++++++++++++++++++++++++++++++++++++++++++++++++++++++++++++++++++ If you have a contrast dye or iodine allergy or if you are on Coumadin also called (Warfarin) or any other major blood thinners like Eliquis, Xarelto, Pradaxa and it was NOT addressed during scheduling, please call NOW to notify the lab ([phone]). You may receive sedation during your procedure and will not be permitted to drive yourself home. You will not be allowed to drive for 24-48 hrs. You will need a friend or family member to accompany you home (a taxi or bus is not acceptable). Failure to have a responsible person on discharge will result in cancellation of your procedure. Labs: PLEASE GO TO [facility] TO HAVE YOUR LAB WORK DRAWN ABOUT 1 WEEK BEFORE YOUR PROCEDURE. THESE ARE NOT FASTING LABS. YOU WILL NOT RECEIVE A REMINDER CALL. IF YOU HAVE ANY QUESTIONS REGARDING THE PROCEDURE CALL US AT : [phone] THANK YOU, Jayshree MARTINEZ Bin Piler Scheduling The above instructions were given to patient verbally over the phone AND VIA MY CHART CLICK THE LINK BELOW FOR A VIDEO EXPLANATION OF THE CARDIAC CATH PROCEDURE AND OUT PATIENT PROCESS. [email or web address] documented in this encounterOSOhio[facility] Surgery Postoperative evaluation and management note* Brief Op Note - Anirudh Rutledge MD - 02/03/2025 12:37 PM EDT Preliminary Report - Brief Cardiac Catheterization Procedure Note Meir Landrum ([id number]) Pre Procedural Diagnosis Angina pectoris [I20.9] 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 [I25.119] H/O heart artery stent [Z95.5] Hyperlipidemia, unspecified hyperlipidemia type [E78.5] Post Procedural Diagnosis Obstructive CAD, multivessel Procedure Performed Left heart catheterization and Coronary angiogram Access Site/Hemostasis Right radial, artery, TR Compression Band Findings Left Ventricular End Diastolic Pressure: Normal Left Ventricular Ejection Fraction: Not assessed Preliminary Results of Angiography Obstructive CAD Percutaneous Coronary Intervention No Intervention Intraprocedure Anticoagulation Heparin Post-procedure Anticoagulation If anticoagulation is indicated per primary team, may restart 4 hours after hemostasis has been achieved Estimated Blood Loss Minimal Complications None Admission Does patient need to be admitted: No Surgeon Surgeons and Role: * Anirudh Rutledge MD - Primary Procedural Staff Monitoring Nurse: Lulu Jimenes RN Automation Tender: Leann Greene Documenter: Justyna De La Paz RN Full report to follow Anirudh Rutledge MD February 03, 2025 12:37 PM [facility]05-29-2025 Nurse Note* Nursing Notes - Madiha Zheng RN - 02/03/2025 10:21 AM EDT Pt arrives to room 2428 in [facility] for [facility]. ECG not ordered for this admission. IV started in left arm.Labs drawn and sent. 0.9 NS IVF initiated @ 100mL/ hr per pump. Pt prep completed. Valuables given to . Clothes secured in room. Questions about procedure answered. Family brought to bedside. Bedin low position, side rail up x2 and call light given to pt. Tele monitor shows NSR. [facility]05-29-2025 History and physical note* eKlin Pritchard MD - 02/03/2025 10:10 AM EDT PRE-CATH H&P UPDATE Patient seen and examined by me on day of procedure. Agree with H&P as documented by Dr. Arias on 01/17/2025, there are no significant updates or changes. Meri Landrum is a 69 y.o. male with a history of CAD s/p remote LAD PCI ([facility] 2008) and hyperlipidemia. This cardiac catheterization is being done to investigate angina. Allergies, Laboratory Studies: is allergic to penicillins, rosuvastatin, simvastatin, ciprofloxacin, bactrim [sulfamethoxazole-trimethoprim], meloxicam, and varenicline. Lab Results Component Value Date CREATSERUM 1.19 07/31/2022 Lab Results Component Value Date INR 1.0 07/31/2022 PTT 27.0 07/31/2022 Lab Results Component Value Date WBC 12.05 (H) 07/31/2022 HGB 16.8 07/31/2022 HCT 49.9 (H) 07/31/2022 PLATELET 261 07/31/2022 MCV 90.2 07/31/2022 Estimated GFR: CrCl cannot be calculated (Patient's most recent lab result is older than the maximum 730 days allowed.). Imagin09/03/2023: Lexiscan Stress myocardial perfusion scan within normal limits. No evidence of ischemia. No evidence of prior myocardial injury. Normal left ventricular systolic function ( 58% ). TTE 09/03/2023: Technically difficult study, endocardium not well seen Normal left ventricular size and low normal systolic function. LVEF of 50-55%. Proximal anteroseptum appears hypekinetic. Normal diastolic function Normal right ventricular size and systolic function No significant valvular abnormalities RVSP of 23 mmHg CARDIAC CATHETERIZATION / PCI 05/23/2009 [facility] Left Main Angiographically free of disease. LAD A 80% stenosis was seen in a large Proximal LAD. It was characterized as a class C (Complex) lesion. Circumflex Stenosis of greater than or equal to 50% noted for this vessel. RCA Stenosis of greater than or equal to 50% noted for this vessel. Bypass Grafts None Other Pertinent Medical Problems: None Current Medications: ASA (mg), Heparin (units), Nitroglycerin (mcg), Plavix (mg), Statin PROCEDURE Site: Proximal LAD Artery Size: 3.56 ACC/AHA: C *lesion length > 20mm Primary Treatment: Intended - Balloon Angioplasty 12-austin Result: 80% to 60% stenosis, MURIEL 3 Complications: None Final Result: Successful Final Complications: None Site: Proximal LAD Artery Size: 3.56 ACC/AHA: C *lesion length > 20mm Primary Treatment: Intended - Drug Eluting Stent 18-austin Result: 60% to 10% stenosis, MURIEL 3 Complications: None Final Result: Successful Final Complications: None Site: Proximal LAD Artery Size: 3.56 ACC/AHA: C *lesion length > 20mm Primary Treatment: Intended - Drug Eluting Stent 16-austin Result: 60% to 10% stenosis, MURIEL 3 Complications: None Final Result: Successful Final Complications: None Site: Proximal LAD Artery Size: 3.56 ACC/AHA: C *lesion length > 20mm Primary Treatment: Intended - Balloon Angioplasty 20-austin Result: 10% to 0% stenosis, MURIEL 3 Complications: None Final Result: Successful Final Complications: None Additionally: Prescribed aspirin 81 mg Not on P2Y12i Consent and sedation assessment to be completed prior to procedure. Will proceed with left heart catheterization with coronary angiography. Kelin Pritchard MD Fellow, Cardiovascular Medicine [facility] Work Phone: [phone] History and physical note* Kelin Pritchard MD - 02/03/2025 10:10 AM EDT PRE-CATH H&P UPDATE Patient seen and examined by me on day of procedure. Agree with H&P as documented by Dr. Arias on 01/17/2025, there are no significant updates or changes. Meir Landrum is a 69 y.o. male with a history of CAD s/p remote LAD PCI ([facility] 2008) and hyperlipidemia. This cardiac catheterization is being done to investigate angina. Allergies, Laboratory Studies: is allergic to penicillins, rosuvastatin, simvastatin, ciprofloxacin, bactrim [sulfamethoxazole-trimethoprim], meloxicam, and varenicline. Lab Results Component Value Date CREATSERUM 1.19 07/31/2022 Lab Results Component Value Date INR 1.0 07/31/2022 PTT 27.0 07/31/2022 Lab Results Component Value Date WBC 12.05 (H) 07/31/2022 HGB 16.8 07/31/2022 HCT 49.9 (H) 07/31/2022 PLATELET 261 07/31/2022 MCV 90.2 07/31/2022 Estimated GFR: CrCl cannot be calculated (Patient's most recent lab result is older than the maximum 730 days allowed.). Imagin09/03/2023: Lexiscan Stress myocardial perfusion scan within normal limits. No evidence of ischemia. No evidence of prior myocardial injury. Normal left ventricular systolic function ( 58% ). TTE 09/03/2023: Technically difficult study, endocardium not well seen Normal left ventricular size and low normal systolic function. LVEF of 50-55%. Proximal anteroseptum appears hypekinetic. Normal diastolic function Normal right ventricular size and systolic function No significant valvular abnormalities RVSP of 23 mmHg CARDIAC CATHETERIZATION / PCI 05/23/2009 [facility] Left Main Angiographically free of disease. LAD A 80% stenosis was seen in a large Proximal LAD. It was characterized as a class C (Complex) lesion. Circumflex Stenosis of greater than or equal to 50% noted for this vessel. RCA Stenosis of greater than or equal to 50% noted for this vessel. Bypass Grafts None Other Pertinent Medical Problems: None Current Medications: ASA (mg), Heparin (units), Nitroglycerin (mcg), Plavix (mg), Statin PROCEDURE Site: Proximal LAD Artery Size: 3.56 ACC/AHA: C *lesion length > 20mm Primary Treatment: Intended - Balloon Angioplasty 12-austin Result: 80% to 60% stenosis, MURIEL 3 Complications: None Final Result: Successful Final Complications: None Site: Proximal LAD Artery Size: 3.56 ACC/AHA: C *lesion length > 20mm Primary Treatment: Intended - Drug Eluting Stent 18-austin Result: 60% to 10% stenosis, MURIEL 3 Complications: None Final Result: Successful Final Complications: None Site: Proximal LAD Artery Size: 3.56 ACC/AHA: C *lesion length > 20mm Primary Treatment: Intended - Drug Eluting Stent 16-austin Result: 60% to 10% stenosis, MURIEL 3 Complications: None Final Result: Successful Final Complications: None Site: Proximal LAD Artery Size: 3.56 ACC/AHA: C *lesion length > 20mm Primary Treatment: Intended - Balloon Angioplasty 20-austin Result: 10% to 0% stenosis, MURIEL 3 Complications: None Final Result: Successful Final Complications: None Additionally: Prescribed aspirin 81 mg Not on P2Y12i Consent and sedation assessment to be completed prior to procedure. Will proceed with left heart catheterization with coronary angiography. Kelin Pritchard MD Fellow, Cardiovascular Medicine documented in this encounterOSOhio[facility]05-14-2025 Note* Addendum Note - Luis Antonio Arias MD - 01/19/2025 4:23 PM EDTAddended by: LUIS ANTONIO ARIAS on: 01/19/2025 04:23 PM Modules accepted: Orders [facility]05-14-2025 Note* Addendum Note - Luis Antonio Arias MD - 01/19/2025 4:23 PM EDTAddended by: LUIS ANTONIO ARIAS on: 01/19/2025 04:23 PM Modules accepted: Orders [facility]05-14-2025 Note* Addendum Note - Luis Antonio Arias MD - 01/19/2025 4:23 PM EDTAddended by: LUIS ANTONIO ARIAS on: 01/19/2025 04:23 PM Modules accepted: Orders [facility]05-14-2025 Miscellaneous Notes* Addendum Note - Luis Antonio Arias MD - 01/19/2025 4:23 PM EDTAddended by: LUIS ANTONIO ARIAS on: 01/19/2025 04:23 PM Modules accepted: Orders * Addendum Note - Kelin Albarran RN - 01/19/2025 3:52 PM EDTAddended by: KELIN ALBARRAN on: 01/19/2025 03:52 PM Modules accepted: Orders * Addendum Note - Kelin Albarran RN - 01/19/2025 1:54 PM EDTAddended by: KELIN ALBARRAN on: 01/19/2025 01:54 PM Modules accepted: Orders * Telephone Encounter - Kelin Albarran RN - 01/19/2025 1:42 PM EDT Images from the original note were not included. MD Kelin Devine RN Caller: Unspecified (Yesterday, 9:31 AM) He should attempt the atorvastatin daily and the zetia daily and monitor his response for any concerning symptoms. Thank you. Sw pt reviewed above recommendations. Pt is agreeable to taking atorvastatin and zetia daily and monitor response. Pt requested refill for zetia be sent to pharmacy. Pended refill * Telephone Encounter - Kelin Albarran RN - 01/18/2025 2:43 PM EDT Images from the original note were not included. MD Kelin Devine RN Caller: Unspecified (Today, 9:31 AM) Labs noted. He should continue his current medical therapy at this time with the exception of attempting to increase his atorvastatin dose up to 20 mg a day if tolerated. He will need a CBC pre cath. Thank you. Sw pt reviewed above recommendations. Pt VU and agreeable to increase atorvastatin to 20 mg daily. Pt currently taking atorvastatin 5 mg every other day And zetia on the days not taking atorvastatin. Pt would like to clarify if he should continue the zetia every other day and then the atorvastatin 20 mg on the other days? Advised pt note stated daily but would clarify with Dr Arias. Pt aware CBC needs completed prior to cath. * Telephone Encounter - Kelin Albarran RN - 01/18/2025 9:31 AM EDT Received outside labs and scanned to chart. Pt is scheduled for heart cath on 02-03-2025 documented in this encounterOSOhio[facility]05-14-2025 Note* Addendum Note - Kelin Albarran RN - 01/19/2025 3:52 PM EDTAddended by: KELIN ALBARRAN on: 01/19/2025 03:52 PM Modules accepted: Orders [facility]05-14-2025 Note* Addendum Note - Kelin Albarran RN - 01/19/2025 3:52 PM EDTAddended by: KELIN ALBARRAN on: 01/19/2025 03:52 PM Modules accepted: Orders [facility]05-14-2025 Note* Addendum Note - Kelin Albarran RN - 01/19/2025 3:52 PM EDTAddended by: KELIN ALBARRAN on: 01/19/2025 03:52 PM Modules accepted: Orders [facility]05-14-2025 Note* Addendum Note - Kelin Albarran RN - 01/19/2025 1:54 PM EDTAddended by: KELIN ALBARRAN on: 01/19/2025 01:54 PM Modules accepted: Orders [facility]* Addendum Note - Kelin Albarran RN - 01/19/2025 1:54 PM EDTAddended by: KELIN ALBARRAN on: 01/19/2025 01:54 PM Modules accepted: Orders [facility]05-14-2025 Note* Addendum Note - Kelin Albarran RN - 01/19/2025 1:54 PM EDTAddended by: KELIN ALBARRAN on: 01/19/2025 01:54 PM Modules accepted: Orders [facility]05-14-2025 Telephone encounter Note* Telephone Encounter - Kelin Albarran RN - 01/19/2025 1:42 PM EDT Images from the original note were not included. MD Kelin Devine RN Caller: Unspecified (Yesterday, 9:31 AM) He should attempt the atorvastatin daily and the zetia daily and monitor his response for any concerning symptoms. Thank you. Sw pt reviewed above recommendations. Pt is agreeable to taking atorvastatin and zetia daily and monitor response. Pt requested refill for zetia be sent to pharmacy. Pended refill [facility]05-13-2025 Telephone encounter Note* Telephone Encounter - Kelin Albarran RN - 01/18/2025 2:43 PM EDT Images from the original note were not included. MD Kelin Devine RN Caller: Unspecified (Today, 9:31 AM) Labs noted. He should continue his current medical therapy at this time with the exception of attempting to increase his atorvastatin dose up to 20 mg a day if tolerated. He will need a CBC pre cath. Thank you. Sw pt reviewed above recommendations. Pt VU and agreeable to increase atorvastatin to 20 mg daily. Pt currently taking atorvastatin 5 mg every other day And zetia on the days not taking atorvastatin. Pt would like to clarify if he should continue the zetia every other day and then the atorvastatin 20 mg on the other days? Advised pt note stated daily but would clarify with Dr Arias. Pt aware CBC needs completed prior to cath. [facility]05-13-2025 Telephone encounter Note* Telephone Encounter - Kelin Albarran RN - 01/18/2025 9:31 AM EDT Received outside labs and scanned to chart. 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 You are to arrive at [facility] on the 1st floor at 10:00 AM You may use matlab developer parking ($10) or park in the [employer] [facility] Garage just past the [place] ($3). There is a walkway from the 2nd floor of the garage into the [place] Lobby. You are to have nothing to eat after midnight. You may drink CLEAR liquids up to the time you arrive for the procedure. (water, juice, clear soda,tea, coffee NO CREAMERS). +++++++++++++++++++++++++++++++++++++++++++++++++++++++++++++++++ MEDICATIONS: YOU MAY TAKE AM MEDICATIONS. +++++++++++++++++++++++++++++++++++++++++++++++++++++++++++++++++ PLEASE BRING A COMPLETE AND ACCURATE LIST OF ALL THE MEDICATIONS THAT YOU TAKE ON A REGULAR BASIS. BRING AN OVERNIGHT BAG JUST IN CASE YOU HAVE TO SPEND THE NIGHT. JUST ESSENTIALS YOU WOULD NEED FORBED. YOU ARE HAVING A LEFT HEART CATH - Expect to be at the hospital 6 - 8 hrs. If you get a stent, you may have to stay the night. ++++++++++++++++++++++++++++++++++++++++++++++++++++++++++++++++++ IF YOU HAVE SLEEP APNEA AND YOU REQUIRE CPAP, bring it with you. ++++++++++++++++++++++++++++++++++++++++++++++++++++++++++++++++++ If you have a contrast dye or iodine allergy or if you are on Coumadin also called (Warfarin) or any other major blood thinners like Eliquis, Xarelto, Pradaxa and it was NOT addressed during scheduling, please call NOW to notify the lab ([phone]). You may receive sedation during your procedure and will not be permitted to drive yourself home. You will not be allowed to drive for 24-48 hrs. You will need a friend or family member to accompany you home (a taxi or bus is not acceptable). Failure to have a responsible person on discharge will result in cancellation of your procedure. Labs: PLEASE GO TO [facility] TO HAVE YOUR LAB WORK DRAWN ABOUT 1 WEEK BEFORE YOUR PROCEDURE. THESE ARE NOT FASTING LABS. YOU WILL NOT RECEIVE A REMINDER CALL. IF YOU HAVE ANY QUESTIONS REGARDING THE PROCEDURE CALL US AT : [phone] THANK YOU, Jayshree MARTINEZ Bin Piler Scheduling The above instructions were given to patient verbally over the phone AND VIA MY CHART CLICK THE LINK BELOW FOR A VIDEO EXPLANATION OF THE CARDIAC CATH PROCEDURE AND OUT PATIENT PROCESS. [email or web address] [facility]05-12-2025 Evaluation + Plan note* Assessment & Plan Note - Luis Antonio Arias MD - 01/17/2025 10:52 AM EDTAssociated Problem(s): Hyperlipidemia He states the information he received from his PCP office was that his triglycerides were somewhat elevated. A copy of his labs we will be requested for continuity of care. [facility]05-12-2025 Evaluation + Plan note* Assessment & Plan Note - Luis Antonio Arias MD - 01/17/2025 10:52 AM EDTAssociated Problem(s): Hx of percutaneous transluminal coronary angioplasty His previous PCI was performed at [facility]. The results are noted below. [facility]05-12-2025 Evaluation + Plan note* Assessment & Plan Note - Luis Antonio Arias MD - 01/17/2025 10:52 AM EDTAssociated Problem(s): 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 He does have underlying documented atherosclerotic coronary artery disease. Again his symptoms are concerning for progressive angina pectoris. He is going to proceed with re-evaluation in the cardiac catheterization laboratory. [facility]05-12-2025 Miscellaneous Notes* Assessment & Plan Note - Luis Antonio Arias MD - 01/17/2025 10:52 AM EDTAssociated Problem(s): Hyperlipidemia He states the information he received from his PCP office was that his triglycerides were somewhat elevated. A copy of his labs we will be requested for continuity of care. * Assessment & Plan Note - Luis Antonio Arias MD - 01/17/2025 10:52 AM EDT Associated Problem(s): Hx of percutaneous transluminal coronary angioplasty His previous PCI was performed at [facility]. The results are noted below. * Assessment & Plan Note - Luis Antonio Arias MD - 01/17/2025 10:52 AM EDT Associated Problem(s): 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 He does have underlying documented atherosclerotic coronary artery disease. Again his symptoms are concerning for progressive angina pectoris. He is going to proceed with re-evaluation in the cardiac catheterization laboratory. * Assessment & Plan Note - Luis Antonio Arias MD - 01/17/2025 10:51 AM EDT Associated Problem(s): Angina pectoris At the present time there is concern of ongoing angina pectoris. He is taking his aspirin 81 mg a day. He was given a new prescription for nitroglycerin sublingual tablets to have. He is continuing his lipid-lowering therapy. A discussion was held with him with respect to further evaluation. Noting that he is undergone previous noninvasive studies including a stress myocardial perfusion study just over a year ago, and noting his remote cardiac catheterization/PCI procedure, and noting his concerning symptoms it was felt reasonable to reassess him more definitively in the cardiac catheterization laboratory. He was agreeable to this approach. documented in this [facility]05-[facility]-2025 Evaluation + Plan note* Assessment & Plan Note - Luis Antonio Arias MD - 01/17/2025 10:51 AM EDTAssociated Problem(s): Angina pectoris At the present time there is concern of ongoing angina pectoris. He is taking his aspirin 81 mg a day. He was given a new prescription for nitroglycerin sublingual tablets to have. He is continuing his lipid-lowering therapy. A discussion was held with him with respect to further evaluation. Noting that he is undergone previous noninvasive studies including a stress myocardial perfusion study just over a year ago, and noting his remote cardiac catheterization/PCI procedure, and noting his concerning symptoms it was felt reasonable to reassess him more definitively in the cardiac catheterization laboratory. He was agreeable to this approach. [facility]05-12-2025 History of Present illness Narrative* Luis Antonio Arias MD - 01/17/2025 10:30 AM EDT Images from the original note were not included. Primary care provider: Pratibha Ronquillo DO (General) Dear Dr. Ronquillo, I had the pleasure of seeing your patient, Meir Landrum, at the [facility] on 01/17/2025 in follow-up. I have reviewed pertinent outside medical records available at this time regarding this patient. As you recall, this 69 y.o. male is managed by our group for CAD s/p remote LAD PCI ([facility] 2008) and hyperlipidemia. Chief Complaint Patient presents with Follow-up Last month PT states having pains on left side going inward, knifing pain. Happens both stationary and up moving. Experiences some SOB and light headedness. HPI: Initial HPI from: 07/21/2023 This is a 68-year-old white male who presents for a new outpatient cardiovascular visit with a history of underlying CAD status post PCI-LAD at [facility] (2008), hyperlipidemia, for concerns of chest discomfort concerning for angina pectoris. He has previously been followed through the [facility] in [place], [place]. He has requested transferring his care to [facility] Cardiovascular Medicine. He states he has been doing well until a short time ago. He developed concerns of centralized chestpressure. He states it was somewhat random. It did not necessarily radiate out of his chest. He canhave associated dyspnea on exertion. There was no obvious orthopnea, PND, or worsening peripheral pitting edema. He has had no near-syncope or syncope. He states following his chest pressure events he then developed an respiratory tract related issue. He tested negative for COVID-19. He was evaluated by his PCP. He was placed on antibiotic therapy. He states he feels somewhat better but still feels he has drainage from his upper respiratory tract. He is status post a previous hip surgery. He states he has been dealing with plantar fasciitis. He has been evaluated by other physicians and has changed shoes, insoles, and had various injections performed. He knows he has had his lipid labs performed in the past. He does not believe he is undergone any recent cardiovascular diagnostic studies. Some of his previous studies are noted below. They have included an ECG, and echocardiogram, and his cardiac catheterization/PCI procedure. Again, this was performed at [facility] and included PCI to the LAD distribution. He had an ECG in the office. He was noted to have normal sinus rhythm. He had no acute ECG changes. Interval History: 01/17/2025 History of Present Illness The patient, a 69-year-old male, presents for an outpatient cardiovascular follow-up visit. He has a medical history significant for coronary artery disease (CAD), status post percutaneous coronary intervention (PCI) of the left anterior descending (LAD) artery performed in 2008 at the [facility] ([facility]), and hyperlipidemia. He notes that he has been having symptoms of chest discomfort radiating to his neck and to his jaw area. He states this is similar to the symptoms he had prior to 2008 when he had his PCI performed at [facility]. He states the jaw discomfort has been what is been most concerning to him. He notes that he can feel somewhat short of breath with these events and with activity. He has not had orthopnea or PND or peripheral pitting edema. He states there has been times when he is felt somewhat lightheaded but he has had no loss of consciousness episode/syncope. He does have nitroglycerin tablets however he states he has not use them. He has been hoping that his symptoms were related to gastroesophageal reflux disorder. He did have an ECG in the office. He was noted to be in normal sinus rhythm. He had no acute ECG changes. He did have a left axis deviation. He states he just had laboratory work done through his PCP office. Based upon the information he has received this included a CMP, a lipid profile, and a PSA. He believes there may have been other labs performed as well. These labs have not yet been received for review. His other cardiovascular studies available for review are noted below. They have been discussed with him. Historical information was reviewed in the medical record. The following historical elements were reviewed by a provider in the specific [facility] and updated as appropriate: Allergies Allergen Reactions Penicillins Itching Itching Rosuvastatin Numbness Other reaction(s): Other Simvastatin Other reaction(s): Myalgias, Other Ciprofloxacin Numbness Bactrim [Sulfamethoxazole-Trimethoprim] Hives and Swelling Meloxicam Hives It is tolerable if he uses benadryl. Varenicline Other reaction(s): Mental Status Change Depression Outpatient Encounter Medications as of 01/17/2025 Medication Sig Dispense Refill acetaminophen 325 MG tablet Take 2 tablets by mouth every 6 hours as needed for Mild Pain. Atorvastatin 10 MG tablet Take 0.5 tablets by mouth every other day. 90 tablet 3 Ezetimibe 10 MG tablet Take 0.5 tablets by mouth every other day. 90 tablet 3 nitroGLYCERIN 0.[address] 1 tablet under tongue every 5 minutes as needed for Chest pain. max = 3 doses. If CP persists after 1st dose, call 911 25 tablet 3 pantoprazole [address] tablet DR Take 1 tablet by mouth daily. Aspirin [address] tablet Take 1 tablet by mouth daily. docusate 100 MG capsule Take 1 capsule by mouth 2 times daily as needed. (Patient not taking: Reported on 01/17/2025) 20 capsule 0 gabapentin 100 MG capsule Take 1 capsule by mouth 3 times daily for 10 days. This medication is used for acute post-operative pain (Patient not taking: Reported on 01/17/2025) 30 capsule 0 mupirocin (Bactroban Nasal) 2 % Ointment Intranasal Approximately 0.5 gram applied into each nostril twice daily for 5 days ( Please dispense regular generic mupirocin ointment if nasal ointment is not available or not covered by insurance ) (Patient not taking: Reported on 01/17/2025) 20 g 0 ondansetron 4 MG tablet Take 1 tablet by mouth every 8 hours as needed for Nausea / Vomiting. (Patient not taking: Reported on 01/17/2025) 20 tablet 0 oxyCODONE 5 MG tablet Take 1-2 tab by mouth every 4-6 hours as needed for post- op pain (Patient nottaking: Reported on 01/17/2025) 50 tablet 0 [DISCONTINUED] nitroGLYCERIN 0.[address] 1 tablet under tongue every 5 minutes as neededfor Chest pain. max = 3 doses. If CP persists after 1st dose, call 911 No facility-administered encounter medications on file as of 01/17/2025. Past Medical History: Diagnosis Date Arthritis CAD (coronary artery disease) Congestive heart failure Diverticulitis Hyperlipidemia VT (myocardial infarction) Past Surgical History: Procedure Laterality Date ARTHROPLASTY SHOULDER TOTAL Left 08/14/2022 Laterality: Left; Surgeon: Robin Mcguire MD; Location: [facility] MA[facility] OR TENODESIS BICEPS LONG TENDON Left 08/14/2022 Laterality: Left; Surgeon: Robin Mcguire MD; Location: [facility] MA[facility] OR ARTHROPLASTY HIP TOTAL ANTERIOR APPROACH Right 07/02/2021 Laterality: Right; Surgeon: Amarjit Marroquin MD; Location: [facility] MAIN OR ASPIRATION OR INJECTION LARGE JOINT BURSA Left 07/02/2021 Laterality: Left; Surgeon: Amarjit Marroquin MD; Location: [facility] MAIN OR AORTIC STENT MENISCECTOMY Left SHOULDER ARTHROSCOPY Right Family History Problem Relation Age of Onset Uterine Cancer Mother Heart Disease - Other Mother Heart Disease - Other Father Heart Failure Father Heart Disease - Other Maternal Uncle Myocardial Infarction Maternal Uncle Heart Disease - Other Maternal Grandfather Myocardial Infarction Maternal Grandfather Heart Disease - Other Paternal Grandfather Myocardial Infarction Paternal Grandfather Social History Socioeconomic History Marital status: Single Spouse name: Not on file Number of children: Not on file Years of education: Not on file Highest education level: Not on file Occupational History Not on file Tobacco Use Smoking status: Some Days Current packs/day: 0.00 Average packs/day: 1 pack/day for 46.6 years (46.6 ttl pk-yrs) Types: Cigarettes Start date: 09/08/1974 Last attempt to quit: 04/30/2021 Years since quittin.7 Smokeless tobacco: Never Tobacco comments: Not a heavy smoker and have quit several times in last 10 years Vaping Use Vaping status: Never Used Substance and Sexual Activity Alcohol use: Not Currently Comment: Less than once a week Drug use: Never Sexual activity: Yes Partners: Female control/protection: Female Sterilization Comment: My had a hysterictomy in 2018 Other Topics Concern Occupational Exposure No Hobby Hazards No Social History Narrative Not on file Social Drivers of Health Financial Resource Strain: Not on file Food Insecurity: Not on file Transportation Needs: Not on file Physical Activity: Not on file Stress: Not on file Social Connections: Not on file Personal Safety: Not on file Housing Stability: Not on file Review of Systems Cardiovascular: Positive for chest pain and near-syncope. Negative for claudication, cyanosis, dyspnea on exertion, irregular heartbeat, leg swelling, orthopnea, palpitations and paroxysmal nocturnaldyspnea. On physcial exam today, the vital signs are as follows: Vitals: 01/17/25 1005 BP: (P) 120/78 Pulse: 85 Weight: (P) 102.7 kg (226 lb 6.4 oz) Height: (P) 1.778 m (5' 10") Body mass index is 32.49 kg/m (pended). Physical Exam Vitals and nursing note reviewed. Constitutional: Appearance: Normal appearance. He is well-developed, well-groomed and overweight. HENT: Head: Normocephalic and atraumatic. Cardiovascular: Rate and Rhythm: Normal rate and regular rhythm. No extrasystoles are present. Chest Wall: PMI is not displaced. No thrill. Pulses: Carotid pulses are 2+ on the right side and 2+ on the left side. Radial pulses are 2+ on the right side and 2+ on the left side. Posterior tibial pulses are 2+ on the right side and 2+ on the left side. Heart sounds: S1 normal and S2 normal. No murmur heard. No friction rub. No gallop. Pulmonary: Effort: Pulmonary effort is normal. Breath sounds: Normal breath sounds. Abdominal: General: Abdomen is flat. Bowel sounds are normal. Palpations: Abdomen is soft. Musculoskeletal: General: Normal range of motion. Cervical back: Normal range of motion. Right lower leg: No edema. Left lower leg: No edema. Skin: General: Skin is warm and dry. Neurological: General: No focal deficit present. Mental Status: He is alert. Psychiatric: Mood and Affect: Mood normal. Relevant diagnostic data includes the following: Lab Results Component Value Date WBC 12.05 (H) 07/31/2022 HGB 16.8 07/31/2022 HCT 49.9 (H) 07/31/2022 PLATELET 261 07/31/2022 MCV 90.2 07/31/2022 Lab Results Component Value Date SODIUM 141 07/31/2022 POTASSIUM 5.0 07/31/2022 CHLORIDE 107 07/31/2022 CO2 28 07/31/2022 BUN 25 07/31/2022 CREATSERUM 1.19 07/31/2022 GLUCOSE 152 (H) 07/03/2021 No results found for: "TSH", "ECM38IEK", "WBO20QCM", "TSHBASELINE", "TSHULTRASEN", "TSHRFT4" Lab Results Component Value Date HGBA1C 5.2 07/31/2022 I have independently reviewed the following images/tracings: as noted below. Supplemental Information: [facility]LECTROCARDIOGRAM 08/09/2022 [facility] 07[facility]21[facility]2023 [facility] ECHOCARDIOGRAM 05/24/2009 [facility] CONCLUSIONS S/p NSTEMI and Stent to LAD. Technically Difficult and Limited Study. 1. Grossly normal LV and RV systolic function. 2. Valves and aorta not well seen. 3. Trivial pericardial effusion. ECHOCARDIOGRAM 09/03/2023 (Final) Interpretation Summary Technically difficult study, endocardium not well seen Normal left ventricular size and low normal systolic function. LVEF of 50-55%. Proximal anteroseptum appears hypekinetic. Normal diastolic function Normal right ventricular size and systolic function No significant valvular abnormalities RVSP of 23 mmHg MYOCARDIAL PERFUSION STUDY 09/03/2023 [facility] Lexiscan Stress myocardial perfusion scan within normal limits. No evidence of ischemia. No evidence of prior myocardial injury. Normal left ventricular systolic function ( 58% ). CARDIAC CATHETERIZATION / PCI 05/23/2009 [facility] Left Main Angiographically free of disease. LAD A 80% stenosis was seen in a large Proximal LAD. It was characterized as a class C (Complex) lesion. Circumflex Stenosis of greater than or equal to 50% noted for this vessel. RCA Stenosis of greater than or equal to 50% noted for this vessel. Bypass Grafts None Other Pertinent Medical Problems: None Current Medications: ASA (mg), Heparin (units), Nitroglycerin (mcg), Plavix (mg), Statin PROCEDURE Site: Proximal LAD Artery Size: 3.56 ACC/AHA: C *lesion length > 20mm Primary Treatment: Intended - Balloon Angioplasty 12-austin Result: 80% to 60% stenosis, MURIEL 3 Complications: None Final Result: Successful Final Complications: None Site: Proximal LAD Artery Size: 3.56 ACC/AHA: C *lesion length > 20mm Primary Treatment: Intended - Drug Eluting Stent 18-austin Result: 60% to 10% stenosis, MURIEL 3 Complications: None Final Result: Successful Final Complications: None Site: Proximal LAD Artery Size: 3.56 ACC/AHA: C *lesion length > 20mm Primary Treatment: Intended - Drug Eluting Stent 16-austin Result: 60% to 10% stenosis, MURIEL 3 Complications: None Final Result: Successful Final Complications: None Site: Proximal LAD Artery Size: 3.56 ACC/AHA: C *lesion length > 20mm Primary Treatment: Intended - Balloon Angioplasty 20-austin Result: 10% to 0% stenosis, MURIEL 3 Complications: None Final Result: Successful Final Complications: None In summary, Mr. Landrum is managed today for the following issues: Angina pectoris At the present time there is concern of ongoing angina pectoris. He is taking his aspirin 81 mg a day. He was given a new prescription for nitroglycerin sublingual tablets to have. He is continuing his lipid-lowering therapy. A discussion was held with him with respect to further evaluation. Noting that he is undergone previous noninvasive studies including a stress myocardial perfusion study just over a year ago, and noting his remote cardiac catheterization/PCI procedure, and noting his concerning symptoms it was felt reasonable to reassess him more definitively in the cardiac catheterization laboratory. He was agreeable to this approach. 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 Again his symptoms are concerning for progressive angina pectoris. He is going to proceed with re-evaluation in the cardiac catheterization laboratory. Hx of percutaneous transluminal coronary angioplasty His previous PCI was performed at [facility]. The results are noted below. Hyperlipidemia He states the information he received from his PCP office was that his triglycerides were somewhat elevated. A copy of his labs we will be requested for continuity of care. I have ordered the following: Diagnoses and all orders for this visit: Angina pectoris - CASE REQUEST - CARDIAC CATH 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 - IL ECG ROUTINE ECG W/LEAST 12 LDS W/I&R - nitroGLYCERIN 0.4 MG tablet SL; Place 1 tablet under tongue every 5 minutes as needed for Chest pain. max = 3 doses. If CP persists after 1st dose, call 911 - CASE REQUEST - CARDIAC CATH H/O heart artery stent - IL ECG ROUTINE ECG W/LEAST 12 LDS W/I&R - nitroGLYCERIN 0.4 MG tablet SL; Place 1 tablet under tongue every 5 minutes as needed for Chest pain. max = 3 doses. If CP persists after 1st dose, call 911 - CASE REQUEST - CARDIAC CATH Hyperlipidemia, unspecified hyperlipidemia type We will plan on Return in about 6 months (around 07/20/2025).. If I can be of any further assistance, please do not hesitate to contact me. Sincerely, Luis Antonio Arias MD, [facility] [employer] - Clinical Division of Cardiovascular Medicine Department of Internal Medicine [facility] Please be aware that portions of this note may have been completed with a voice recognition software system and an artificial intelligence system with the knowledge and approval of the patient. Despite efforts to edit the note mis- transcribed words may still be present. * Vanessa Villafana MA - 01/17/2025 10:30 AM EDT Patient has verified full name and . DEANN documentation tool explained to patient. Patient accepted the use of DEANN documentation tool during today's visit. Meir Landrum was offered and declined a Medical Patient Care Representative for this exam/procedure/test 01/17/2025. 12 Lead EKG performed per provider's order, per policy, and given to angel for interpretation. Medical automatic tire tester offered to patient prior to sensitive procedure and patient declined [facility] History of Present illness Narrative* Robin Mcguire MD - 03/16/2024 9:30 AM EDT Chief Complaint Patient presents with Left Shoulder - Follow-up Pt reports for L TSA 19m POV. Pt reports no pain or issues at this time. SUBJECTIVE: Meir returns for post operative follow up. They reports Adequate pain control without the need forpain medication. has not returned to work. PT: effective. PHYSICAL EXAMINATION: Affected shoulder: The incisions appears healing well. no tenderness upon palpation. ROM of the affected shoulder 50 / 160 / L3 . Neurovascular exam is intact. No instability. Radiographs: 4 view left shoulder were reviewed with stable alignment of TSA without complication IMPRESSION: 19 month(s) status post left shoulder TSA. PLAN Meir is progressing well. The diagnosis and treatment were discussed in detail today. Continue with therapy as instructed and follow up as needed. They may begin to wean out of the sling over the next few days. If there are any questions prior to this, they will call the office. All questions wereanswered to their satisfaction. needs new xray's upon arrival of next appointment. [facility] Evaluation + Plan note* Assessment & Plan Note - Luis Antonio Arias MD - 07/21/2023 11:20 AM ESTAssociated Problem(s): Hyperlipidemia He has a history of hyperlipidemia. His medications have been altered over time. He is on low-dose atorvastatin therapy and additional therapy with ezetimibe/Zetia. He states that he has had issues tolerating medications in the past and he appears to be tolerating these medications thus far. He believes it has been awhile since his lipids were evaluated. A copy will be requested for continuity of care. He will be asked to have future lipid profile as well too. [facility]11-13-2023 Evaluation + Plan note* Assessment & Plan Note - Luis Antonio Arias MD - 07/21/2023 11:20 AM ESTAssociated Problem(s): Hx of percutaneous transluminal coronary angioplasty His previous [facility] cardiac catheterization report and PCI report were reviewed. This occurred in 2008. He underwent PTCA/drug-eluting stent to the LAD distribution. [facility]11-13-2023 Miscellaneous Notes* Assessment & Plan Note - Luis Antonio Arias MD - 07/21/2023 11:20 AM ESTAssociated Problem(s): Hyperlipidemia He has a history of hyperlipidemia. His medications have been altered over time. He is on low-dose atorvastatin therapy and additional therapy with ezetimibe/Zetia. He states that he has had issues tolerating medications in the past and he appears to be tolerating these medications thus far. He believes it has been awhile since his lipids were evaluated. A copy will be requested for continuity of care. He will be asked to have future lipid profile as well too. * Assessment & Plan Note - Luis Antonio Arias MD - 07/21/2023 11:20 AM EST Associated Problem(s): Hx of percutaneous transluminal coronary angioplasty His previous [facility] cardiac catheterization report and PCI report were reviewed. This occurred in 2008. He underwent PTCA/drug-eluting stent to the LAD distribution. * Assessment & Plan Note - Luis Antonio Arias MD - 07/21/2023 11:19 AM EST Associated Problem(s): 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 The patient has complained of chest pressure. It is concerning for angina pectoris. At the present time he will re-initiate medical therapy with his aspirin 81 mg p.o. q.day. He was asked to undergo further evaluation of his left ventricular wall motion systolic function for any new regional wall motion abnormalities. This would include a transthoracic echocardiogram. He was also asked to undergo a stress myocardial perfusion study to compare to studies he is had done in the past. Based upon his previous hip surgery and his plantar fasciitis, although he wants to try to perform this with the treadmill, he may not be able to do so and he may have to be altered toa pharmacologic study. Depending upon his findings he may or may not need additional cardiovascular medical therapy and orevaluation. documented [facility] this encounter[facility]11-[facility]23 Evaluation + Plan note* Assessment & Plan Note - Luis Antonio Arias MD - 07/21/2023 11:19 AM ESTAssociated Problem(s): 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 The patient has complained of chest pressure. It is concerning for angina pectoris. At the present time he will re-initiate medical therapy with his aspirin 81 mg p.o. q.day. He was asked to undergo further evaluation of his left ventricular wall motion systolic function for any new regional wall motion abnormalities. This would include a transthoracic echocardiogram. He was also asked to undergo a stress myocardial perfusion study to compare to studies he is had done in the past. Based upon his previous hip surgery and his plantar fasciitis, although he wants to try to perform this with the treadmill, he may not be able to do so and he may have to be altered toa pharmacologic study. Depending upon his findings he may or may not need additional cardiovascular medical therapy and orevaluation. [facility]11-13-2023 History of Present illness Narrative* Luis Antonio Arias MD - 07/21/2023 11:00 AM EST Images from the original note were not included. Referring provider: Pratibha Ronquillo DO Primary care provider: Pratibha Ronquillo DO (General) Dear Dr. Ronquillo, I had the pleasure of seeing your patient, Meir Landrum, at the [facility] on 07/21/2023. I have reviewed pertinent outside medical records available at this time regarding this patient. As you recall, you referred this 68 y.o. male to our attention for CAD, status post PCI (LAD), hyperlipidemia, and chest discomfort concerning for angina pectoris. Chief Complaint Patient presents with Establish Care Pt reports chest discomfort prior to have Upper respiratory virus HPI: This is a 68-year-old white male who presents for a new outpatient cardiovascular visit with a history of underlying CAD status post PCI-LAD at [facility] (2008), hyperlipidemia, for concerns of chest discomfort concerning for angina pectoris. He has previously been followed through the [facility] in [place], [place]. He has requested transferring his care to [facility] Cardi[facility] Medicine. He states he has been doing well until a short time ago. He developed concerns of centralized chestpressure. He states it was somewhat random. It did not necessarily radiate out of his chest. He canhave associated dyspnea on exertion. There was no obvious orthopnea, PND, or worsening peripheral pitting edema. He has had no near-syncope or syncope. He states following his chest pressure events he then developed an respiratory tract related issue. He tested negative for COVID-19. He was evaluated by his PCP. He was placed on antibiotic therapy. He states he feels somewhat better but still feels he has drainage from his upper respiratory tract. He is status post a previous hip surgery. He states he has been dealing with plantar fasciitis. He has been evaluated by other physicians and has changed shoes, insoles, and had various injections performed. He knows he has had his lipid labs performed in the past. He does not believe he is undergone any recent cardiovascular diagnostic studies. Some of his previous studies are noted below. They have included an ECG, and echocardiogram, and his cardiac catheterization/PCI procedure. Again, this was performed at [facility] and included PCI to the LAD distribution. He had an ECG in the office. He was noted to have normal sinus rhythm. He had no acute ECG changes. Historical information was reviewed in the medical record. The following historical elements were reviewed by a provider in the specific [facility] and updated as appropriate: Allergies Allergen Reactions Penicillins Itching Itching Rosuvastatin Numbness Other reaction(s): Other Simvastatin Other reaction(s): Myalgias, Other Ciprofloxacin Numbness Meloxicam Hives It is tolerable if he uses benadryl. Varenicline Other reaction(s): Mental Status Change Depression Outpatient Encounter Medications as of 07/21/2023 Medication Sig Dispense Refill acetaminophen 325 MG tablet Take 2 tablets by mouth every 6 hours as needed for Mild Pain. Atorvastatin 10 MG tablet Take 0.5 tablets by mouth every other day. 90 tablet 3 Ezetimibe 10 MG tablet Take 0.5 tablets by mouth every other day. 90 tablet 3 [DISCONTINUED] aspirin 81 MG Chew Tab chewable tablet Chew 1 tablet daily. [DISCONTINUED] atorvastatin 10 MG tablet Take 0.5 tablets by mouth every other day. [DISCONTINUED] ezetimibe 10 MG tablet Take 0.5 tablets by mouth every other day. docusate 100 MG capsule Take 1 capsule by mouth 2 times daily as needed. (Patient not taking: Reported on 07/21/2023) 20 capsule 0 gabapentin 100 MG capsule Take 1 capsule by mouth 3 times daily for 10 days. This medication is used for acute post-operative pain 30 capsule 0 mupirocin (Bactroban Nasal) 2 % Ointment Intranasal Approximately 0.5 gram applied into each nostril twice daily for 5 days ( Please dispense regular generic mupirocin ointment if nasal ointment is not available or not covered by insurance ) (Patient not taking: Reported on 07/21/2023) 20 g 0 ondansetron 4 MG tablet Take 1 tablet by mouth every 8 hours as needed for Nausea / Vomiting. 20 tablet 0 oxyCODONE 5 MG tablet Take 1-2 tab by mouth every 4-6 hours as needed for post- op pain 50 tablet 0 pantoprazole [address] tablet DR Take 1 tablet by mouth daily. (Patient not taking: Reported on 07/21/2023) [DISCONTINUED] Naproxen Sodium 220 MG capsule Take by mouth as needed for Mild Pain. (Patient not taking: Reported on 07/21/2023) No facility-administered encounter medications on file as of 07/21/2023. Past Medical History: Diagnosis Date Arthritis CAD (coronary artery disease) Congestive heart failure Diverticulitis Hyperlipidemia VT (myocardial infarction) Past Surgical History: Procedure Laterality Date ARTHROPLASTY SHOULDER TOTAL Left 08/14/2022 Laterality: Left; Surgeon: Robin Mcguire MD; Location: [facility] OR TENODESIS BICEPS LONG TENDON Left 08/14/2022 Laterality: Left; Surgeon: Robin Mcguire MD; Location: [facility] MA[facility] OR ARTHROPLASTY HIP TOTAL ANTERIOR APPROACH Right 07/02/2021 Laterality: Right; Surgeon: Amarjit Marroquin MD; Location: [facility] MA[facility] OR ASPIRATION OR INJECTION LARGE JOINT BURSA Left 07/02/2021 Laterality: Left; Surgeon: Amarjit Marroquin MD; Location: [facility] MAIN OR AORTIC STENT MENISCECTOMY Left SHOULDER ARTHROSCOPY Right Family History Problem Relation Age of Onset Uterine Cancer Mother Heart Disease - Other Mother Heart Disease - Other Father Heart Failure Father Heart Disease - Other Maternal Uncle Myocardial Infarction Maternal Uncle Heart Disease - Other Maternal Grandfather Myocardial Infarction Maternal Grandfather Heart Disease - Other Paternal Grandfather Myocardial Infarction Paternal Grandfather Social History Socioeconomic History Marital status: Single Spouse name: Not on file Number of children: Not on file Years of education: Not on file Highest education level: Not on file Occupational History Not on file Tobacco Use Smoking status: Some Days Packs/day: 1.00 Years: 40.00 Additional pack years: 0.00 Total pack years: 40.00 Types: Cigarettes Start date: 09/08/1974 Last attempt to quit: 04/30/2021 Years since quittin.2 Smokeless tobacco: Never Tobacco comments: Not a heavy smoker and have quit several times in last 10 years Vaping Use Vaping Use: Never used Substance and Sexual Activity Alcohol use: Not Currently Comment: Less than once a week Drug use: Never Sexual activity: Yes Partners: Female control/protection: Female Sterilization Comment: My had a hysterictomy in 2018 Other Topics Concern Occupational Exposure No Hobby Hazards No Social History Narrative Not on file Social Determinants of Health Financial Resource Strain: Not on file Food Insecurity: Not on file Transportation Needs: Not on file Physical Activity: Not on file Stress: Not on file Social Connections: Not on file Intimate Partner Violence: Not on file Housing Stability: Not on file Review of Systems Cardiovascular: Positive for chest pain, dyspnea on exertion and near-syncope. Negative for claudication, cyanosis, irregular heartbeat, leg swelling, orthopnea, palpitations and paroxysmal nocturnaldyspnea. On physcial exam today, the vital signs are as follows: BP 132/77 (BP Location: Left arm, BP Position: Sitting) Pulse 79 Ht 1.778 m (5' 10") Wt 95.2 kg (209 lb 14.4 oz) BMI 30.12 kg/m Smoking Status Some Days Body mass index is 30.12 kg/m .. Physical Exam Vitals and nursing note reviewed. Constitutional: Appearance: Normal appearance. He is overweight. HENT: Head: Normocephalic and atraumatic. Cardiovascular: Rate and Rhythm: Normal rate and regular rhythm. No extrasystoles are present. Chest Wall: PMI is not displaced. No thrill. Pulses: Carotid pulses are 2+ on the right side and 2+ on the left side. Radial pulses are 2+ on the right side and 2+ on the left side. Posterior tibial pulses are 2+ on the right side and 2+ on the left side. Heart sounds: S1 normal and S2 normal. No murmur heard. No friction rub. No gallop. Pulmonary: Effort: Pulmonary effort is normal. Breath sounds: Normal breath sounds. Abdominal: General: Abdomen is flat. Bowel sounds are normal. Palpations: Abdomen is soft. Musculoskeletal: General: Normal range of motion. Cervical back: Normal range of motion. Right lower leg: No edema. Left lower leg: No edema. Skin: General: Skin is warm and dry. Neurological: General: No focal deficit present. Mental Status: He is alert. Psychiatric: Mood and Affect: Mood normal. Relevant diagnostic data includes the following: No results found for: "CHOLESTEROL", "TRIG", "HDL", "LDLCALC", "LDLDIRECT", NHCHOL Lab Results Component Value Date WBC 12.05 (H) 07/31/2022 HGB 16.8 07/31/2022 HCT 49.9 (H) 07/31/2022 PLATELET 261 07/31/2022 MCV 90.2 07/31/2022 Lab Results Component Value Date SODIUM 141 07/31/2022 POTASSIUM 5.0 07/31/2022 CHLORIDE 107 07/31/2022 CO2 28 07/31/2022 BUN 25 07/31/2022 CREATSERUM 1.19 07/31/2022 GLUCOSE 152 (H) 07/03/2021 No results found for: "TSH", "GST23ZKY", "SMJ81XLL", "TSHBASELINE", "TSHULTRASEN", "TSHRFT4" Lab Results Component Value Date HGBA1C 5.2 07/31/2022 I have independently reviewed the following reports and/or images/tracings: as noted below. Supplemental Information: ELECTROCARDIOGRAM 08/09/2022 [facility] ECHOCARDIOGRAM 05/24/2009 [facility] CONCLUSIONS S/p NSTEMI and Stent to LAD. Technically Difficult and Limited Study. 1. Grossly normal LV and RV systolic function. 2. Valves and aorta not well seen. 3. Trivial pericardial effusion. CARDIAC CATHETERIZATION / PCI 05/23/2009 [facility] Left Main Angiographically free of disease. LAD A 80% stenosis was seen in a large Proximal LAD. It was characterized as a class C (Complex) lesion. Circumflex Stenosis of greater than or equal to 50% noted for this vessel. RCA Stenosis of greater than or equal to 50% noted for this vessel. Bypass Grafts None Other Pertinent Medical Problems: None Current Medications: ASA (mg), Heparin (units), Nitroglycerin (mcg), Plavix (mg), Statin PROCEDURE Site: Proximal LAD Artery Size: 3.56 ACC/AHA: C *lesion length > 20mm Primary Treatment: Intended - Balloon Angioplasty 12-austin Result: 80% to 60% stenosis, MURIEL 3 Complications: None Final Result: Successful Final Complications: None Site: Proximal LAD Artery Size: 3.56 ACC/AHA: C *lesion length > 20mm Primary Treatment: Intended - Drug Eluting Stent 18-austin Result: 60% to 10% stenosis, MURIEL 3 Complications: None Final Result: Successful Final Complications: None Site: Proximal LAD Artery Size: 3.56 ACC/AHA: C *lesion length > 20mm Primary Treatment: Intended - Drug Eluting Stent 16-austin Result: 60% to 10% stenosis, MURIEL 3 Complications: None Final Result: Successful Final Complications: None Site: Proximal LAD Artery Size: 3.56 ACC/AHA: C *lesion length > 20mm Primary Treatment: Intended - Balloon Angioplasty 20-austin Result: 10% to 0% stenosis, MURIEL 3 Complications: None Final Result: Successful Final Complications: None In summary, Mr. Landrum is managed today for the following issues: 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 The patient has complained of chest pressure. It is concerning for angina pectoris. At the present time he will re-initiate medical therapy with his aspirin 81 mg p.o. q.day. He was asked to undergo further evaluation of his left ventricular wall motion systolic function for any new regional wall motion abnormalities. This would include a transthoracic echocardiogram. He was also asked to undergo a stress myocardial perfusion study to compare to studies he is had done in the past. Based upon his previous hip surgery and his plantar fasciitis, although he wants to try to perform this with the treadmill, he may not be able to do so and he may have to be altered toa pharmacologic study. Depending upon his findings he may or may not need additional cardiovascular medical therapy and orevaluation. Hx of percutaneous transluminal coronary angioplasty His previous [facility] cardiac catheterization report and PCI report were reviewed. This occurred in 2008. He underwent PTCA/drug-eluting stent to the LAD distribution. Hyperlipidemia He has a history of hyperlipidemia. His medications have been altered over time. He is on low-dose atorvastatin therapy and additional therapy with ezetimibe/Zetia. He states that he has had issues tolerating medications in the past and he appears to be tolerating these medications thus far. He believes it has been awhile since his lipids were evaluated. A copy will be requested for continuity of care. He will be asked to have future lipid profile as well too. I have ordered the following: Orders Placed This Encounter LIPID PANEL W CALCULATED LDL ECHOCARDIOGRAM Atorvastatin 10 MG tablet Ezetimibe 10 MG tablet IL ECG, CLINIC PERFORMED The above was discussed and reviewed with him. He was agreeable to this approach. We will plan on Return in about 6 months (around 01/19/2024).. If I can be of any further assistance, please do not hesitate to contact me. Sincerely, Luis Antonio Arias MD, [facility] [employer] - Clinical Division of Cardiovascular Medicine Department of Internal Medicine [facility] Please be aware that portions of this note may have been completed with a voice recognition software system. Despite efforts to edit the note mis-transcribed words may still be present. * Kelin Albarran RN - 07/21/2023 11:00 AM EST 12 Lead EKG performed per provider's order, per policy, and given to Dr Arias for interpretation. Medical automatic tire tester offered to patient prior to sensitive procedure and patient declined documented [facility]11-07-2023 Telephone encounter Note* Telephone Encounter - Katia Franco RN - 07/15/2023 10:45 AM EST Received records. Placed in folder for scanning. [facility]11-07-2023 Miscellaneous Notes* Telephone Encounter - Katia Franco RN - 07/15/2023 10:45 AM EST Received records. Placed in folder for scanning. * Telephone Encounter - Kelin Jefferson RN - 07/11/2023 3:24 PM EDT Records request faxed to [facility] @ [phone]. documented in this encounterMad[facility]11-03-2023 Telephone encounter Note* Telephone Encounter - Kelin Jefferson RN - 07/11/2023 3:24 PM EDT Records request faxed to [facility] @ [phone]. [facility]07-10-2023 History of Present illness Narrative* Robin Mcguire MD - 03/17/2023 10:00 AM EDT Chief Complaint Patient presents with Left Shoulder - Condition Update 7m s/p L shoulder TSA (DOS 08/14/22)-- Not feeling bad, sore sleeping on it. Done with PT in January. Not taking anything for shoulder. SUBJECTIVE: Meir returns for post operative follow up. They reports Adequate pain control without the need forpain medication. has not returned to work. PT: effective. PHYSICAL EXAMINATION: Affected shoulder: The incisions appears healing well. no tenderness upon palpation. ROM of the affected shoulder 50 / 160 / L3 . Neurovascular exam is intact. No instability. Radiographs: 4 view left shoulder were reviewed with stable alignment of TSA without complication IMPRESSION: 7 month(s) status post left shoulder TSA. PLAN Meir is progressing well. The diagnosis and treatment were discussed in detail today. Continue with therapy as instructed and follow up in 1 year(s).. They may begin to wean out of the sling over the next few days. If there are any questions prior to this, they will call the office. All questions were answered to their satisfaction. needs new xray's upon arrival of next appointment. documented in [facility] History of Present illness Narrative* Teresita Rawls MD - 12/25/2022 2:30 PM EDT Images from the original note were not included. [facility] History of Present Illness: Meir Landrum is a 67 y.o. male with a history of diverticulitis, arthritis, HLD, CAD s/p stents 2009, R hip AGUSTIN presenting today for evaluation of his chief complaint: Lower back pain. External notes/medical records independently reviewed and pertinent information found was incorporated. Had Rthen L L2-L5 mb/ RFA in 06/29. In the interim, had L TSA in 08/29. Notes he had almost no low back pain for months, he was sleeping in a chair after surgery. He notes difficulty laying flat in bed. He thinks he has had >50% reduction in pain since the ablation. Meir Landrum reports pain located in his lower back that started 15 years ago. Denies any known inciting event. The pain does not radiate. There is no associated numbness or tingling. Reports noweakness. The percentage of axial to limb pain is 100% and 0%, respectively. Pain level is 0/10 today. Pain is worse with bending and twisting. Worse with laying flat in bed. Feels like "aching" and is intermittent in duration. Denies bowel dysfunction, bladder dysfunction or saddle anesthesia concerning for a cauda equina issue. Current medications for this issue: Aleve. Beneficial Treatments: chiropractor Non-Beneficial Treatments: n/a Treatments: --Physical therapy: has finished full course --Injections: see above --Spine Surgery: n/a Review of Systems: All other systems negative or as above and below. 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 Surgical History: has a past surgical history that includes meniscectomy (Left); shoulder arthroscopy (Right); aorticstent; arthroplasty hip total anterior approach (Right, 07/02/2021); aspiration or injection large joint bursa (Left, 07/02/2021); arthroplasty shoulder total (Left, 08/14/2022); and tenodesis biceps long tendon (Left, 08/14/2022). Social History: reports that he has been smoking cigarettes. He has a 12.00 pack-year smoking history. He has neverused smokeless tobacco. He reports current alcohol use. He reports that he does not use drugs. Social History Substance and Sexual Activity Drug Use Never Social History Social History Narrative Not on file Family History: family history includes Heart Disease - Other in his father, maternal grandfather, maternal uncle, mother, and paternal grandfather; Myocardial Infarction in his maternal grandfather, maternal uncle,and paternal grandfather; Uterine Cancer in his mother. Current Medications: has a current medication list which includes the following prescription(s): acetaminophen 325 MG tablet, aspirin 81 MG Chew Tab chewable tablet, atorvastatin 10 MG tablet, docusate 100 MG capsule, ezetimibe 10 MG tablet, mupirocin (Bactroban Nasal) 2 % Ointment, Naproxen Sodium 220 MG capsule, ondan setron 4 MG tablet, pantoprazole [address] tablet DR, gabapentin 100 MG capsule, and oxyCODONE 5MG tablet. Allergies: is allergic to penicillins, rosuvastatin, simvastatin, ciprofloxacin, meloxicam, and varenicline. PHYSICAL EXAMINATION Pulse 78 Temp 96.9 F (36.1 C) Ht 1.791 m (5' 10.5") Wt 98 kg (216 lb) SpO2 96% BMI 30.55 kg/m Smoking Status Every Day Body mass index is 30.55 kg/m . GENERAL: NAD, good eye contact, well appearing, responds appropriately. Obese/Overweight: no HEENT: Atraumatic, normocephalic. EOMI grossly intact to tracking examiner, sclerae anicteric. THORACIC/PULM: No visible chest wall deformities. No tachypnea, no accessory muscle use at rest. SKIN: Intact. No rashes, bruises, or ulcers over visible skin PSYCH: Affect appears normal, mood congruent. MSK: 5/5 strength with b/l HF, KE, KF, DF, PF Normal sensation in legs 2+ patellar reflexes Non TTP over lumbar facets No pain with facet loading Gait: Grossly Normal Labs/Imaging Reviewed: Labs and imaging personally reviewed. Relevant diagnostic studies were also reviewed with and explained to patient using their images, reports, diagrams, and/or models. XR L spine (08/28): FINDINGS: 5 images obtained. Vertebral: There are 5 typical lumbar spine vertebral bodies in anatomic alignment. Dextroscoliotic curvature of lumbar spine measures approximately 19 degrees. No compression deformity. No spondylolysis. No instability on flexion or extension. Disc: Multilevel degenerative disc disease, most severe at L5/S1. Severe disc height loss, vacuum phenomena and endplate sclerosis at L5/S1 is seen. Joint: Facet joints appear anatomically aligned. Lower lumbar facet arthrosis. Atheromatous calcifications. Previous total right hip arthroplasty. IMPRESSION IMPRESSION: Dextroscoliotic curvature. Multilevel degenerative disc disease, severe at L5/S1. Facet arthrosis. No instability on flexion or extension. Lab Results Component Value Date SODIUM 141 07/31/2022 POTASSIUM 5.0 07/31/2022 CHLORIDE 107 07/31/2022 CO2 28 07/31/2022 BUN 25 07/31/2022 CREATSERUM 1.19 07/31/2022 GLUCOSE 152 (H) 07/03/2021 Lab Results Component Value Date WBC 12.05 (H) 07/31/2022 HGB 16.8 07/31/2022 HCT 49.9 (H) 07/31/2022 PLATELET 261 07/31/2022 MCV 90.2 07/31/2022 Lab Results Component Value Date SEDRATE 11 07/31/2022 Lab Results Component Value Date CRP 4.35 07/31/2022 Patient Reported Outcome Measures: View : No data to display. ASSESSMENT AND PLAN ICD-10-CM 1. Spondylosis 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 or radiculopathy M47.816 Meir Landrum is a 67 y.o. male with a history of diverticulitis, arthritis, HLD, CAD s/p stents 2008, R hip AGUSTIN that presents for evaluation of chronic bilateral lower back pain. Currently doingwell after lumbar RFA in 06/29. - Patient will reach out if he feels he needs a repeat RFA, doing well today. - continue HEP - Patient was counseled on the importance of weight loss as a brown component of attaining and maintaining good spine health in the future. Recommend continuing to perform their usual activities of daily living and to avoid prolonged rest as a means for pain control. Patient to call or go to the ED if he has any bowel or bladder incontinence, worsening muscle weakness or worsening of his symptoms. The natural history and course of the symptomatology of his diagnosis was discussed in detail with the patient. Plan of care discussed. All questions answered. The patient verbalized understanding and agreed to the treatment plan formulated for this visit. Teresita Rawls MD Automatic [employer]- Clinical [facility] Department of Anesthesiology- Pain Medicine documented in this encounterU [facility] History of Present illness Narrative* Robin Mcguire MD - 12/02/2022 10:00 AM EDT Chief Complaint Patient presents with Left Shoulder - Follow-up 3 months s/p left TSA (DOS 08/14/22) - gets sore bc he is using it a bit too much- is trying to lifthe has soreness- does still have decreased ROM SUBJECTIVE: Meir returns for post operative follow up. Reports Adequate pain control without the need for painmedication. has returned to work. PT: effective. PHYSICAL EXAMINATION: Affected shoulder: The incisions appears healing well. mild tenderness upon palpation. ROM of the affected shoulder demonstrates 50 / 140 / Ls. Neurovascular exam is intact. No instability. Strength: 5/5 External rotation, 5-/5 forward elexion, 5-/5 Internal rotation neg Belly Press Radiographs: 4 view left shoulder reveal TSA in stable alignment without complication IMPRESSION: 3 month(s) status post left shoulder TSA. PLAN Meir is progressing well. The diagnosis and treatment were discussed in detail today. Ok to use the arm as tolerated with pain as the guide. Continue to strengthen. Continue with therapy as instructed and follow up in 2 month(s).. Medication refill were not given. If there are any questions prior to this, the patient was instructed to contact the office. All questions were answered to the patients satisfaction. The patient needs new xray's upon arrival of his next appointment. documented in this encounterOS[facility] History of Present illness Narrative* Eliseo Diaz MD - 09/30/2022 9:30 AM EST Chief Complaint Patient presents with Left Shoulder - Post Op Visit 6w5d s/p left TSA (DOS 08/14/22) Pain level 0/2-3 with no activity sore after PT [facility]. Patient just wants update on progression to make sure everything is okay SUBJECTIVE: Meir returns for post operative follow up. Reports Adequate pain control without the need for painmedication. has not started physical therapy. denies fevers, chills, night sweats. denies nausea, vomiting. denies chest pain, calf pain, shortness of breath. denies warmth, drainage or erythema fromthe surgical site or other signs of infection. Meir has been compliant with the sling immobilization and postoperative instructions. PHYSICAL EXAMINATION: Left shoulder: The incisions appears healing well clean dry no drainage and margins intact and healing well with no signs of infection ,, without purulent drainage, warmth or erythema. There is no tenderness upon palpation. PROM of the shoulder demonstrated 20/90/not tested No strength testing for this visit. Neurovascular exam is intact. No instability. Radiographs: XRs of the left shoulder were reviewed and demonstrated stable intact total shoulder arthroplasty IMPRESSION: 6 week(s) status post left shoulder TSA. PLAN Meir is progressing well. The surgical findings and procedure were reviewed in detail with Meir today. The diagnosis and treatment were discussed in detail today. Wean out of sling. Work on regaining motion over next 6 weeks. We will print out written PT protocol because he is working with an outside therapist. Follow-up in 6 weeks. If there are any questions prior to this, the patient was instructed to contact the office. All questions were answered to the patient's satisfaction. The patient needs new xray's upon arrival of next appointment. * Robin Mcguire MD - 09/30/2022 9:30 AM EST Patient was seen and evaluated with the Sports Medicine Fellow/Resident at today's visit. I performed all essential elements of the history and physical exam at today's visit. I have confirmed the diagnosis at today's visit. I have determined the plan of care for today's visit. Please refer to the slava bang/resident's note for further details from today's visit. I have reviewed the note following the visit have added edits as appropriate to my evaluation and plan of care. The diagnoses for today'svisit include: left TSA [facility] History of Present illness Narrative* Juan De PA-C - 08/28/2022 9:40 AM EST Chief Complaint Patient presents with Left Shoulder - Post Op Visit 2w s/p left TSA (DOS 08/14/22). Shoulder feels good. Denies any complications. Takes TYL. SUBJECTIVE: Meir returns for post operative follow up. Reports Adequate pain control with the need for pain medication. has not started physical therapy. denies fevers, chills, night sweats. denies nausea, vomiting. denies chest pain, calf pain, shortness of breath. denies warmth, drainage or erythema from the surgical site or other signs of infection. Meir has been compliant with the sling immobilization and postoperative instructions. PHYSICAL EXAMINATION: Left shoulder: Sutures were removed, steri strips were applied. The incisions appears healing well clean dry no drainage and margins intact and healing well with no signs of infection ,, without purulent drainage, warmth or erythema. There is no tenderness upon palpation. PROM of the shoulder demonstrated 10 / 10 / not tested . No strength testing for this visit. Neurovascular exam is intact. No instability. Radiographs: XRs of the left shoulder were reviewed and demonstrated stable intact total shoulder arthroplasty IMPRESSION: 2 week(s) status post left shoulder TSA. PLAN Meir is progressing well. The surgical findings and procedure were reviewed in detail with Meir today. The diagnosis and treatment were discussed in detail today. Remain in the sling. Follow the motion and activity restrictions discussed in office today. Medication refill were given. Continue to monitor for signs for signs of infection. Therapy script was provided. Physical therapy will start now and participate in the anatomic total shoulder protocol. Plan for follow up in 4 week(s).. If there are any questions prior to this, the patient was instructed to contact the office. All questions were answered to the patient's satisfaction. The patient needs new xray's upon arrival of next appointment. uJan De PA-C Orthopaedic Surgery [facility] Instructions* Patient Instructions* Juan De PA-C - 08/28/2022 9:40 AM EST - Stay in the sling unless doing exercises or self care - No holding anything greater than 1 pound in the surgical hand - OK to shower, just avoid direct scrubbing, and direct water stream to the incision. - Remember the motion and activity restrictions discussed in office today - Monitor for signs of infection - Schedule PT to begin now - Follow up with Dr. Mcguire in 4 weeks - Call the office with any questions or concerns Unused Medication: Visit the site below to see where to find a medication drop box [email or web address] Please visit our websites for reference: [email or web address]. [email or web address] documented [facility] this [facility] Note* Nursing Notes - Samantha Castañeda RN - 08/14/2022 2:08 PM EST Discharge instructions provided to patient & . Verbalized and understanding of instructions. Prescriptions reviewed. Ice man reviewed [facility]12-07-[facility] Miscellaneous Notes* Nursing Notes - Samantha Castañeda RN - 08/14/2022 2:08 PM EST Discharge instructions provided to patient & . Verbalized and understanding of instructions. Prescriptions reviewed. Ice man reviewed * Nursing Notes - Samantha Castañeda RN - 08/14/2022 1:46 PM EST Gracy at bedside hooking up the ropivacaine ball * Nursing Notes - Samantha Castañeda RN - 08/14/2022 1:37 PM EST Xray completed at bedside * Op Note - Robin Mcguire MD - 08/14/2022 1:14 PM EST PATIENT NAME: Meir Landrum AGE: 67 y.o. DATE OF PROCEDURE: 08/14/22 ATTENDING SURGEON: Robin Mcguire MD ASSISTANTS: Julito Salazar MD PREOPERATIVE DIAGNOSES: 1. Left shoulder glenohumeral osteoarthritis 2. Left biceps tendonitis POSTOPERATIVE DIAGNOSES: 1. Left shoulder glenohumeral osteoarthritis 2. Left biceps tendonitis PROCEDURES: 1. Left shoulder anatomic total shoulder arthroplasty 2. Left shoulder biceps tenodesis ANESTHESIA: General with interscalene block. ESTIMATED BLOOD LOSS: 50 mL. COMPLICATIONS: None. SPECIMENS: None. INDICATIONS FOR PROCEDURE: Meir Landrum is a 67 y.o. year old patient who presents with end stage shoulder arthritis. Extensive nonoperative management with activity modification, physical therapy, home exercise, and antiinflamatories was completed, without resolution of his pain or shoulder loss of function. For this reason, an extensive discussion about the risks, benefits and alternatives of surgical treatment were discussed. Total shoulder arthroplasty was discussed as the most reliable option in terms of pain relief and functional improvement. I discussed the expected postoperative course and expected outcome as best as we understand it with current literature. After discussion, the patient elected to proceed with total shoulder arthroplasty. The risks and benefits of total shoulder arthroplasty were discussed including infection, instability, nerve injury (either due to intraoperative injuryor stretching of nerves), bleeding, infection, damage to other structures, poor wound healing, implant loosening and hardware failure, and need for more surgery. These are documented on the office note and within the patient's medical record. The patient signed written consent to proceed with anatomic total shoulder arthroplasty. TECHNIQUE: Meir Landrum was seen in the preoperative holding area and his operative shoulder was site marked. History and physical examination as well as risks, benefits, and alternatives to surgery were again reviewed and the decision was made to proceed with surgery. He was given in interscalene block by anesthesia. He was brought to the operating room and transferred to the operating table. He was induced with a general anesthetic and positioned in the modified beach chair position. All bony prominences were confirmed to be well-padded. His shoulder was prepped and draped in the usual sterile fashion with chloraprep. Antibiotics were administered. A preprocedural timeout was completed including patient, site and side for verification. A deltopectoral incision was made. The cephalic vein was preserved and taken laterally with the deltoid. The clavipectoral fascia was identified and incised. The upper 1cm of the pec was released to expose the anterior circumflex vessels, which were ligated with electrocautery. The long head of thebiceps tendon was identified and biceps tenodesis was performed to the upper border of the pectoralis major tendon with #2 FiberWire sutures in [id number] fashion. The remaining biceps tendon was excised. Attention was turned to the subscapularis, which was intact. The rotator interval was released and the subscapularis was peeled off the lesser tuberosity with electrocautery and tagged with two #2 FiberWires. The humerus was gently externally rotated and the capsule was released from the inferior humeral neck and inferior osteophytes with a Li and electrocautery to beyond the 6-o'clock position. Humeral osteophytes were removed with a rongeur. A Fakuda retractor was then placed and the release was continued on the glenoid side from the 12- o'clock position down to past the 6-o'clock positionto approximately 7:30 o'clock. This allowed the humerus to be easily dislocated and the remainder of the posterosuperior rotator cuff was inspected and found to be intact. The anatomic neck of the humerus was identified and an oscillating saw was used with the guide to resect the humeral head in 20to 30 degrees of retroversion. The humeral side was prepared for the stemless implant. The calcar planar was used to fine tune thehumeral cut surface. The cut surface protector was placed. Next, attention was turned to the glenoid. A darrach retractor was placed posteriorly and an anterior glenoid pitchfork retractor placed anteriorly. We completed the releases of the SGHL, CHL, MGHL, and IGHL while protecting the axillary nerve. Remnant labral tissue and the biceps tendon stump wereexcised. The inferior capsule was released from the glenoid in order to clearly delineate the inferior margin of the glenoid. This provided excellent glenoid exposure, which demonstrated a B2 wear pattern. Remaining labral and cartilage tissue was removed from the glenoid with electrocautery and a curette. The medium glenoid guide was selected and the glenoid guide pin was placed. Pin position was checked and noted to be appropriate. The glenoid was reamed to prepare the surface. Bony and soft tissue debris was irrigated and removed with a rongeur. The central hold cannulated drill was used to make the central peg hole, followed by the three peripheral holes. The glenoid was irrigated and hemostasis was achieved with hydrogen peroxide and thrombin soaked sponges. The Simplex cement was pressurized into the peripheral holes. The size medium 40 15 wedge glenoid had cancellous bone from the humeral head placed around the central peg and was impacted into place. This was checked and was seated fully. The glenoid was held in place until the cement hardened. Excess bone and cement were rem onesimo. Attention was turned back to the humeral side where the head cut protector was removed. Four drill holes were placed into the lesser tuberosity and #5 Fiberwires were passed through the drill holes for later subscapularis repair. The trial head was selected and trialed, revealing 40 degrees external rotation without excess subscapularis tension, 50% posterior humeral translation with spontaneous snap back into the glenoid, and 60 degrees internal rotation in abducted position. The trial components were removed and the humeral surface irrigated. The final components were selected and impacted were Simpliciti size 3 nucleus and 46mm head with excellent component stability and fit on the proxim al humerus. The shoulder was reduced and noted to have excellent motion and stability. The subscapularis had excellent mobility and was repaired with Richard Adeel sutures using the four #5 FiberWires previously inserted across the lesser tuberosity. #2 Fiberwire was also used in the superior lateral aspect of the rotator interval while keeping the arm in external rotation to avoid over- tightening the shoulder. The final subscapularis repair was anatomic and stable through gentle range of motion, without impairing external rotation to beyond 40 degrees. The wound was again copiously irrigated. Excellent hemostasis was achieved and a surgical drain wasdeemed unnecessary. One gram of vancomycin powder was applied to the surgical site. The deltopectoral interval was closed with #1 vicryl. The incision was closed with 2-0 monocryl, 3-0 monocryl, and steri-strips. A sterile dressing was applied. The surgical counts were completed and all counts werecorrect at the completion of the case. The patient's arm was placed into a postoperative sling. Thepatient was extubated at the completion of the case and returned to the recovery room in stable condition. I was present for all critical portions of the procedure. POSTOPERATIVE PLAN: Meir Landrum will be admitted to the hospital. He will be provided with pain control and transitioned to PO pain medication according to the multimodal pain protocol. He will be encouraged to beout of bed as tolerated. He will be placed on the total shoulder arthroplasty postoperative protocol. He will be seen in the office in 10-14 days for suture removal and wound care. Intraoperative findings, procedures performed, and postoperative plan were discussed with the patient and family on the day of surgery. * Brief Op Note - Robin Mcguire MD - 08/14/2022 1:14 PM EST Meir Landrum ([id number]) PRE OPERATIVE DIAGNOSIS Arthritis of left glenohumeral joint [M19.012] POST OPERATIVE DIAGNOSIS Post-Op Diagnosis Codes: * Arthritis of left glenohumeral joint [M19.012] PROCEDURE PERFORMED Procedure(s) (LRB): Left TSA (Left) TENODESIS BICEPS LONG TENDON (Left) PRIMARY CLOSURE Yes INTRAOPERATIVE FINDINGS No significant abnormalities SURGEON Surgeon(s) and Role: * Robin Mcguire MD - Primary ANESTHESIOLOGIST Anesthesiologist: Michael Castro MD SUBMERSIBLE PILOT: Mauricio Leon Jr., PROFESSOR OF VOICE-SUBMERSIBLE PILOT SURGICAL STAFF Energy Management Specialist: Lynne Rojo RN Relief Energy Management Specialist: Enzo Nava RN Scrub Person: Suri Howard; Kayla Lainez Resident Assisting: Julito Salazar DO COMPLICATIONS None ESTIMATED BLOOD LOSS Minimal SPECIMENS No specimen sent * No specimens in log * Robin Mcguire MD August 14, 2022 1:14 PM * Nursing Notes - Aurora Gandhi RN - 08/14/2022 10:41 AM EST Nerve block and perineural catheter completed per Anesthesia. Pt on O2 per nasal canula, vitals as noted per protocol. HOB elevated 30 degrees. Side rails up, bed in low position, frequently monitored for consciousness, airway or untoward affects. Blocked limb protected with blanket. ISBAR handoff procedure completed with anesthesia staff MIRNA Nolan and surgery RN Lynne. Patient stable, no distress, transferred to surgery with OR personnel. [facility] Nurse Surgical operation note* Nick Melissa RN - 08/14/2022 1:57 PM EST 0.2% Ropivicaine infusion started at 6 ml an hour. Pump secured to catheter and statlock applied. Patient instructed on catheter and infusion. Patient and family were given written and verbal instructions of care and removal of perineural catheter as well as instructions regarding the use of the ONQ pump. A demo pump and catheter were used to aid in instructions. Patient and family stated understanding of instruction. Contact information to reach the anesthesiologist oracle bpm consultant was also provided. [facility]12-07-20[facility] Nurse Note* Nick Melissa RN - 08/14/2022 1:57 PM EST 0.2% Ropivicaine infusion started at 6 ml an hour. Pump secured to catheter and statlock applied. Patient instructed on catheter and infusion. Patient and family were given written and verbal instructions of care and removal of perineural catheter as well as instructions regarding the use of the ONQ pump. A demo pump and catheter were used to aid in instructions. Patient and family stated understanding of instruction. Contact information to reach the anesthesiologist [employer] bpm consultant was also provided. * Lynne Rojo RN - 08/14/2022 12:52 PM EST 1252 Family updated. * Lynne Rojo RN - 08/14/2022 11:21 AM EST 1121 Family updated. * Nick Melissa RN - 08/14/2022 11:05 AM EST Left interscalene perineural catheter inserted by Dr. Garza, sterile technique maintained. Site clean and dry, dressing intact. Area is free from redness. Catheter secured at the skin no leaking noted. Patient tolerated procedure well. documented [facility]12-07-2022 Note* Nursing Notes - Samantha Castañeda RN - 08/14/2022 1:46 PM EST Gracy at bedside hooking up the ropivacaine ball [facility]12-07-2022 Note* Nursing Notes - Samantha Castañeda RN - 08/14/2022 1:37 PM EST Xray completed at bedside [facility]12-07-2022 Note* Op Note - Robin Mcguire MD - 08/14/2022 1:14 PM EST PATIENT NAME: Meir Landrum AGE: 67 y.o. DATE OF PROCEDURE: 08/14/22 ATTENDING SURGEON: Robin Mcguire MD ASSISTANTS: Julito Salazar MD PREOPERATIVE DIAGNOSES: 1. Left shoulder glenohumeral osteoarthritis 2. Left biceps tendonitis POSTOPERATIVE DIAGNOSES: 1. Left shoulder glenohumeral osteoarthritis 2. Left biceps tendonitis PROCEDURES: 1. Left shoulder anatomic total shoulder arthroplasty 2. Left shoulder biceps tenodesis ANESTHESIA: General with interscalene block. ESTIMATED BLOOD LOSS: 50 mL. COMPLICATIONS: None. SPECIMENS: None. INDICATIONS FOR PROCEDURE: Meir Landrum is a 67 y.o. year old patient who presents with end stage shoulder arthritis. Extensive nonoperative management with activity modification, physical therapy, home exercise, and antiinflamatories was completed, without resolution of his pain or shoulder loss of function. For this reason, an extensive discussion about the risks, benefits and alternatives of surgical treatment were discussed. Total shoulder arthroplasty was discussed as the most reliable option in terms of pain relief and functional improvement. I discussed the expected postoperative course and expected outcome as best as we understand it with current literature. After discussion, the patient elected to proceed with total shoulder arthroplasty. The risks and benefits of total shoulder arthroplasty were discussed including infection, instability, nerve injury (either due to intraoperative injuryor stretching of nerves), bleeding, infection, damage to other structures, poor wound healing, implant loosening and hardware failure, and need for more surgery. These are documented on the office note and within the patient's medical record. The patient signed written consent to proceed with anatomic total shoulder arthroplasty. TECHNIQUE: Meir Landrum was seen in the preoperative holding area and his operative shoulder was site marked. History and physical examination as well as risks, benefits, and alternatives to surgery were again reviewed and the decision was made to proceed with surgery. He was given in interscalene block by anesthesia. He was brought to the operating room and transferred to the operating table. He was induced with a general anesthetic and positioned in the modified beach chair position. All bony prominences were confirmed to be well-padded. His shoulder was prepped and draped in the usual sterile fashion with chloraprep. Antibiotics were administered. A preprocedural timeout was completed including patient, site and side for verification. A deltopectoral incision was made. The cephalic vein was preserved and taken laterally with the deltoid. The clavipectoral fascia was identified and incised. The upper 1cm of the pec was released to expose the anterior circumflex vessels, which were ligated with electrocautery. The long head of thebiceps tendon was identified and biceps tenodesis was performed to the upper border of the pectoralis major tendon with #2 FiberWire sutures in [id number] fashion. The remaining biceps tendon was excised. Attention was turned to the subscapularis, which was intact. The rotator interval was released and the subscapularis was peeled off the lesser tuberosity with electrocautery and tagged with two #2 FiberWires. The humerus was gently externally rotated and the capsule was released from the inferior humeral neck and inferior osteophytes with a Li and electrocautery to beyond the 6-o'clock position. Humeral osteophytes were removed with a rongeur. A Fakuda retractor was then placed and the release was continued on the glenoid side from the 12- o'clock position down to past the 6-o'clock positionto approximately 7:30 o'clock. This allowed the humerus to be easily dislocated and the remainder of the posterosuperior rotator cuff was inspected and found to be intact. The anatomic neck of the humerus was identified and an oscillating saw was used with the guide to resect the humeral head in 20to 30 degrees of retroversion. The humeral side was prepared for the stemless implant. The calcar planar was used to fine tune thehumeral cut surface. The cut surface protector was placed. Next, attention was turned to the glenoid. A darrach retractor was placed posteriorly and an anterior glenoid pitchfork retractor placed anteriorly. We completed the releases of the SGHL, CHL, MGHL, and IGHL while protecting the axillary nerve. Remnant labral tissue and the biceps tendon stump wereexcised. The inferior capsule was released from the glenoid in order to clearly delineate the inferior margin of the glenoid. This provided excellent glenoid exposure, which demonstrated a B2 wear pattern. Remaining labral and cartilage tissue was removed from the glenoid with electrocautery and a curette. The medium glenoid guide was selected and the glenoid guide pin was placed. Pin position was checked and noted to be appropriate. The glenoid was reamed to prepare the surface. Bony and soft tissue debris was irrigated and removed with a rongeur. The central hold cannulated drill was used to make the central peg hole, followed by the three peripheral holes. The glenoid was irrigated and hemostasis was achieved with hydrogen peroxide and thrombin soaked sponges. The Simplex cement was pressurized into the peripheral holes. The size medium 40 15 wedge glenoid had cancellous bone from the humeral head placed around the central peg and was impacted into place. This was checked and was seated fully. The glenoid was held in place until the cement hardened. Excess bone and cement were rem onesimo. Attention was turned back to the humeral side where the head cut protector was removed. Four drill holes were placed into the lesser tuberosity and #5 Fiberwires were passed through the drill holes for later subscapularis repair. The trial head was selected and trialed, revealing 40 degrees external rotation without excess subscapularis tension, 50% posterior humeral translation with spontaneous snap back into the glenoid, and 60 degrees internal rotation in abducted position. The trial components were removed and the humeral surface irrigated. The final components were selected and impacted were Simpliciti size 3 nucleus and 46mm head with excellent component stability and fit on the proxim al humerus. The shoulder was reduced and noted to have excellent motion and stability. The subscapularis had excellent mobility and was repaired with Richard Adeel sutures using the four #5 FiberWires previously inserted across the lesser tuberosity. #2 Fiberwire was also used in the superior lateral aspect of the rotator interval while keeping the arm in external rotation to avoid over- tightening the shoulder. The final subscapularis repair was anatomic and stable through gentle range of motion, without impairing external rotation to beyond 40 degrees. The wound was again copiously irrigated. Excellent hemostasis was achieved and a surgical drain wasdeemed unnecessary. One gram of vancomycin powder was applied to the surgical site. The deltopectoral interval was closed with #1 vicryl. The incision was closed with 2-0 monocryl, 3-0 monocryl, and steri-strips. A sterile dressing was applied. The surgical counts were completed and all counts werecorrect at the completion of the case. The patient's arm was placed into a postoperative sling. Thepatient was extubated at the completion of the case and returned to the recovery room in stable condition. I was present for all critical portions of the procedure. POSTOPERATIVE PLAN: Meir Landrum will be admitted to the hospital. He will be provided with pain control and transitioned to PO pain medication according to the multimodal pain protocol. He will be encouraged to beout of bed as tolerated. He will be placed on the total shoulder arthroplasty postoperative protocol. He will be seen in the office in 10-14 days for suture removal and wound care. Intraoperative findings, procedures performed, and postoperative plan were discussed with the patient and family on the day of surgery. [facility] Work Phone: [phone]) 706-470312-07-2022 Note* Brief Op Note - Robin Mcguire MD - 08/14/2022 1:14 PM EST Meir Landrum ([id number]) PRE OPERATIVE DIAGNOSIS Arthritis of left glenohumeral joint [M19.012] POST OPERATIVE DIAGNOSIS Post-Op Diagnosis Codes: * Arthritis of left glenohumeral joint [M19.012] PROCEDURE PERFORMED Procedure(s) (LRB): Left TSA (Left) TENODESIS BICEPS LONG TENDON (Left) PRIMARY CLOSURE Yes INTRAOPERATIVE FINDINGS No significant abnormalities SURGEON Surgeon(s) and Role: * Robin Mcguire MD - Primary ANESTHESIOLOGIST Anesthesiologist: Michael Castro MD SUBMERSIBLE PILOT: Mauricio Leon Jr., PROFESSOR OF VOICE-SUBMERSIBLE PILOT SURGICAL STAFF Energy Management Specialist: Lynne Rojo RN Relief Energy Management Specialist: Enzo Nava RN Scrub Person: Suri Howard; Kayla Lainez Resident Assisting: Julito Salazar DO COMPLICATIONS None ESTIMATED BLOOD LOSS Minimal SPECIMENS No specimen sent * No specimens in log * Robin Mcguire MD August 14, 2022 1:14 PM [facility]12-07-2022 Nurse Surgical operation note* Lynne Rojo RN - 08/14/2022 12:52 PM EST 1252 Family updated. [facility]12-07-2022 Nurse Surgical operation note* Lynne Rojo RN - 08/14/2022 11:21 AM EST 1121 Family updated. [facility]12-07-2022 Nurse Surgical operation note* Nick Melissa RN - 08/14/2022 11:05 AM EST Left interscalene perineural catheter inserted by Dr. Garza, sterile technique maintained. Site clean and dry, dressing intact. Area is free from redness. Catheter secured at the skin no leaking noted. Patient tolerated procedure well. [facility]12-07-2022 Note* Nursing Notes - Aurora Gandhi RN - 08/14/2022 10:41 AM EST Nerve block and perineural catheter completed per Anesthesia. Pt on O2 per nasal canula, vitals as noted per protocol. HOB elevated 30 degrees. Side rails up, bed in low position, frequently monitored for consciousness, airway or untoward affects. Blocked limb protected with blanket. ISBAR handoff procedure completed with anesthesia staff MIRNA Nolan and surgery RN Lynne. Patient stable, no distress, transferred to surgery with OR personnel. [facility]12-07-2022 History and physical note* Julito Salazar MD - 08/14/2022 9:47 AM EST This is the pre-operative assessment for Meir AMBROSE Pre op Left shoulder PMH Past Medical History: Diagnosis Date Arthritis Diverticulitis Hyperlipidemia VT (myocardial infarction) SXH: Past Surgical History: Procedure Laterality Date ARTHROPLASTY HIP TOTAL ANTERIOR APPROACH Right 07/02/2021 Laterality: Right; Surgeon: Amarjit Marroquin MD; Location: [facility] MA[facility] OR ASPIRATION OR INJECTION LARGE JOINT BURSA Left 07/02/2021 Laterality: Left; Surgeon: Amarjit Marroquin MD; Location: [facility] MAIN OR AORTIC STENT MENISCECTOMY Left SHOULDER ARTHROSCOPY Right SH: Social History Tobacco Use Smoking status: Every Day Packs/day: 0.25 Years: 48.00 Pack years: 12.00 Types: Cigarettes Smokeless tobacco: Never Tobacco comments: Down to 5 Cig. Per day. Vaping Use Vaping Use: Never used Substance Use Topics Alcohol use: Yes Comment: Less than once a week Drug use: Never Med: (Not in an outpatient encounter) Allergies: Allergies Allergen Reactions Penicillins Itching Itching Rosuvastatin Numbness Other reaction(s): Other Simvastatin Other reaction(s): Myalgias, Other Ciprofloxacin Numbness Meloxicam Hives It is tolerable if he uses benadryl. Varenicline Other reaction(s): Mental Status Change Depression Review of Systems ROS is noncontributory with no significant history of heart, lung, vascular, renal or liver disease. No history of diabetes, epilepsy, bleeding disorders or other systematic disease. Prior adverse reaction to anesthesia no Physical Exam BP 123/81 (BP Location: Right arm) Pulse 76 Temp 98.6 F (37 C) (Infrared) Resp 18 Ht 1.791 m (5' 10.5") Wt 97.1 kg (214 lb) SpO2 97% BMI 30.27 kg/m Smoking Status Every Day Cardiac exam shows regular rate and rhythm, S1 and S2 sounds normal with no significant murmur yes Lungs with non-labored respirations and breath sounds are clear and equal yes Musculoskeletal pertinent findings include: Left shoulder pain Diagnosis Left GH OA Plan left TSA [facility]12-07-2022 History and physical note* Julito Salazar MD - 08/14/2022 9:47 AM EST This is the pre-operative assessment for Meir AMBROSE Pre op Left shoulder PMH Past Medical History: Diagnosis Date Arthritis Diverticulitis Hyperlipidemia VT (myocardial infarction) SXH: Past Surgical History: Procedure Laterality Date ARTHROPLASTY HIP TOTAL ANTERIOR APPROACH Right 07/02/2021 Laterality: Right; Surgeon: Amarjit Marroquin MD; Location: [facility] MAIN OR ASPIRATION OR INJECTION LARGE JOINT BURSA Left 07/02/2021 Laterality: Left; Surgeon: Amarjit Marroquin MD; Location: [facility] MAIN OR AORTIC STENT MENISCECTOMY Left SHOULDER ARTHROSCOPY Right SH: Social History Tobacco Use Smoking status: Every Day Packs/day: 0.25 Years: 48.00 Pack years: 12.00 Types: Cigarettes Smokeless tobacco: Never Tobacco comments: Down to 5 Cig. Per day. Vaping Use Vaping Use: Never used Substance Use Topics Alcohol use: Yes Comment: Less than once a week Drug use: Never Med: (Not in an outpatient encounter) Allergies: Allergies Allergen Reactions Penicillins Itching Itching Rosuvastatin Numbness Other reaction(s): Other Simvastatin Other reaction(s): Myalgias, Other Ciprofloxacin Numbness Meloxicam Hives It is tolerable if he uses benadryl. Varenicline Other reaction(s): Mental Status Change Depression Review of Systems ROS is noncontributory with no significant history of heart, lung, vascular, renal or liver disease. No history of diabetes, epilepsy, bleeding disorders or other systematic disease. Prior adverse reaction to anesthesia no Physical Exam BP 123/81 (BP Location: Right arm) Pulse 76 Temp 98.6 F (37 C) (Infrared) Resp 18 Ht 1.791 m (5' 10.5") Wt 97.1 kg (214 lb) SpO2 97% BMI 30.27 kg/m Smoking Status Every Day Cardiac exam shows regular rate and rhythm, S1 and S2 sounds normal with no significant murmur yes Lungs with non-labored respirations and breath sounds are clear and equal yes Musculoskeletal pertinent findings include: Left shoulder pain Diagnosis Left GH OA Plan left TSA [facility] Discharge instructions* Discharge Instructions* Madiha Machuca APRN-AERONAUTICAL DRAFTER - 08/14/2022 9:36 AM EST Images from the original note were not included. The [facility] Dr. Alvaro Mays [place] [facility] [place] Dr. Gabriela De La Paz [address] Mando Mcguire [facility], [address] Dr. Julito Mcguire Hermila Kimball PA-C GRICEL Condon PA-C POST-OPERATIVE INSTRUCTIONS OPEN SHOULDER REPAIR Your recovery after shoulder surgery can take 6-9 months (and sometimes up to a year) to fully recover. It takes 12 weeks for the repair to fully heal, so it is very important to follow all precautions after surgery as directed. These instructions are intended to help you control swelling and pain,and to allow your shoulder and repaired tissues to heal. These instructions are a general guideline, because no patient or procedure is the same. If needed, your surgeon will give you further specific instructions. If you are calling after hours or on the weekend, call [phone] and at the prompt select option2 - Orthopedics marketing production specialist. Do not select Sports Medicine option WEIGHT BEARING: You should remain non-weightbearing at this time. This means you should NOT put any weight through your arm for any reason. Maintain sling. SLING You are required to wear your sling at all times (including sleeping) until your follow up appointment. This is necessary to protect your repair. You may remove it to work on your hand, wrist, and elbow exercises, for getting dressed, and for hygiene. Otherwise, it should remain on at all times. Ifa squeeze ball was provided with your sling, this should be squeezed as often as possible to help to reduce hand stiffness, and to reduce the swelling that may occur in the hand and wrist ICE It is recommended to ice your shoulder for 20 minutes per hour using an ice pack, Cryo Cuff if provided, or a bag of frozen peas. Ice can be especially helpful for the first several days after surgery. It can then be used as needed for pain and swelling. PAIN BLOCK/PAIN CATHETER The pain block/catheter is intended for pain relief and can last for up to 48 hours. During this time, you will not experience pain and will not be able to move your hand and fingers. It will give you the sensation of your arm being paralyzed . THIS IS TEMPORARY UNTIL THE BLOCK WEARS OFF. It is recommended that you start your pain medication even though you are getting pain relief from the block. It is more difficult to control the pain once the block wears off, then to keep a constant level of the pain medication in your system. For further questions regarding the pain catheter or block, please refer to the pain pump handout given to you from surgery or contact the anesthesia department as directed in the handout. MEDICATIONS You should resume all of your normal medications after shoulder surgery. If you are on blood thinners, these should be discussed with our team to decide on a date to resume them (typically the day after surgery). You will be given prescriptions for pain medications: Fill the pain medications immediately and begin taking the medications before your nerve block wears off. You are encouraged to take the pain medications as directed on the prescription, and on a regular schedule for the first 3-4 days after surgery. For the first few days, it is important to stay "ahead" of the pain, using your pain medicine. It is much more difficult to "catch up" to the pain. Depending on your allergies and medical history, you can add in either tylenol (acetaminophen) or Advil (ibuprofen) for supplemented pain control Even with the nerve block from surgery, it is recommended that you start on the pain medications after surgery to avoid the block wearing off without having pain medications in your system. As the pain decreases, you may decrease the pain medication and switch to extra strength Tylenol ifneeded. Avoid driving and consuming alcohol while taking pain medication. Common side effects of pain medication are nausea, drowsiness, and constipation. Consider taking medication with food, and also consider using an qsvb-jho-wuayild stool softener. Unused Medication: Visit the site below to see where to find a medication drop box [email or web address] If your surgeon is Dr. Mcguire: Please keep your dressing in place until your follow-up appointment in 10-14 days. You are allowed to shower with this dressing in place. If your surgeon is Dr. Mcguire or Dr. De La Paz: Please keep your dressing on for 5 days. If the dressings become saturated before 3 days, you may remove the dressing and replace it with guaze and tape. If you stay in the hospital, they may remove and replace your dressing before you leave. You may shower and get your incision wet 5 days after surgery, as long as there is no drainage coming from the incision. If the dressing is leaking, remove it and apply a clean, dry gauze to your shoulder. Avoid letting the shower stream hit the incisions directly until the sutures are removed. DO NOT scrub incisions or soak under water (bathtub, swimming pool or hot tub etc.) Pat the shoulder dry and then re-apply the dressing. If you have drainage more than 5 days after surgery, please contact our office for advice. SLEEPING You may find it more comfortable to sleep in a semi-reclined position (i.e.. recliner type chair orpropped up on pillows) following shoulder surgery. You may return to sleeping in your bed whenever it feels comfortable to do so. EXERCISES You should begin the elbow, wrist, and hand exercises that you were shown at the hospital on the day of surgery. Remember no active motion of the shoulder or elbow (moving the arm without assistance from someone else) until follow up. These may be repeated throughout the day as you feel needed. These exercises are to make sure your hand, and elbow do not get stiff in your sling. Begin exercises within the first 3 days after surgery. Do them 2-3 times per day, 10 times each. Dothe elbow motion slowly, using your non-operative hand to move the surgical arm FOLLOW UP APPOINTMENTS Your first follow up appointment is generally 10-14 days after surgery. Normally this will be with one of our Physician Assistants. Please refer to your preoperative packet for the date and time or contact the office after surgery to confirm this appointment . . [x] Please wait until after first follow up appointment for physical therapy instructions Wound care, pain management, and a review of your surgical procedure will be discussed at your first post-operative appointment Additional appointments are scheduled according to the type of surgery that you had and how you areprogressing. PRECAUTIONS After anesthesia, rest for 24 hours. General anesthesia may cause a sore throat, jaw discomfort or muscle aches. These symptoms can last for one or two days. Do not drive, drink alcoholic beverages or make any important or legal decisions during this time. Do not put your hand behind back (tucking in shirt, putting on belt), and do not lean on affected hand/arm or use you hand/arm to push up from a seated or laying position. A good general rule is to keep your arm where you can see it. Keep your first few meals after surgery light and drink plenty of fluids, and some people are nauseas after surgery. Smoking increases your risk of infection and can delay healing times. If you smoke, you are encouraged to quit, cut back or at least quit smoking during the post-operative period. Pain medications are important for the first few days after surgery to treat postoperative pain. Addiction, tolerance, and side effects are a big concern. Decrease the pain medications as soon as youcan. This is typically after the first few days. Most patients require narcotic pain medications only for the first few weeks after surgery (even large procedures). Prolonged use increases the risk of problems with these medications. MOST COMMON POST-OPERATIVE CONCERNS Pain - It is important to start you pain medication as soon as you can after surgery, even if you are not experiencing any pain. If you receive a block and when the block wears off, there can be a heightened sense of pain. If this occurs, understand that this can be normal.You may also add in Advil(ibuprofen) or Tylenol (acetaminophen) for added pain relief. Swelling - Due to surgery, fluid may build up in your arm. Due to gravity and being in the sling, the swelling may move to your elbow and wrist/hand. This is normal. It is recommended that you do your hand/wrist and elbow exercises (shown above). This will help move the fluid back up your arm. Yourbody will naturally reabsorb the fluid over the first 1-2 weeks after surgery. Nausea - The pain medication can cause nausea/vomiting. It is suggested to take pain medication with food. We will also prescribe anti-nausea medication (ondansetron/promethazine). It is recommended to take this before taking pain medication Constipation - Pain medication can also cause constipation. We also prescribed constipation medication (docusate). It is recommended to take this medication, and plenty of water, the first few days after surgery until you have your first few bowel movements. If you have not had a bowel movement within 5 days after surgery, you can picking machine operator helper over the counter Milk of Magnesia at any pharmacy. Make sure you stay hydrated. Sleeping - Due to the sling and pain, lack of sleep is a very common concern after shoulder surgery. We suggest sleeping in a recliner the first few days to weeks after surgery. We also suggest scheduling your pain medication so that you are taking it before bed if possible. The pain medication maycause you to be drowsy. We also suggest taking tylenol PM, Advil PM, or melatonin to assist with sleep. Spasms - Due to surgery, and your arm being in a sling, you may experience muscle spasms or cramps around your shoulder and arm. This is completely normal. Continue to use ice and take pain medications as needed. Numbness/Tingling - Due to swelling and being in a sling, you may notice some numbness and or tingling in your hand on the surgical side. This is normal and should decrease over time. If it fails to improve, please let us know Driving - We do not recommend driving during the period that you have to wear your sling. IF YOU ABSOLUTELY HAVE TO, then you can not be taking narcotics, you cannot drive a manual shift car, and youhave to be able to safely operate your vehicle with one arm. We suggest going to an empty parking to get familiar driving with one arm NOTIFY THE OFFICE IMMEDIATELY, , IF YOU DEVELOP ANY OF THE FOLLOWING: If you are calling after hours or on the weekend, call [phone] and at the prompt select option2 - Orthopedics marketing production specialist. Do not select Sports Medicine option Increased redness or swelling over the incision area Incision area is warm or hot to touch Incision has foul smelling drainage Relentless pain, nausea, vomiting, bleeding or drainage Severe calf pain or chest pain You develop a fever greater than 101.4 more than 48 hours after surgery If you having an emergency that requires immediate attention go to the nearest emergency room or call 911. Please contact the office with any other questions or concerns that you may have regarding your surgery. Please visit our website for further information: [email or web address] documented in this encounterMadison Health11-23-2022 History and physical note* SYLVIE Warren - 07/31/2022 7:15 AM EST Pre-Operative Assessment (PAT) Outpatient Clinic Note H&P Date of Evaluation: 07/31/2022 Date of Surgery: 08/14/22 Surgeon: Dr Mcguire Pre-Op Diagnosis: shoulder pain Planned Procedure: ARTHROPLASTY SHOULDER TOTAL - Left CHIEF COMPLAINT Preoperative cardiovascular testing and medication management for major surgery HISTORY Meir Landrum is a 67 y.o. male with the below history presenting for preoperative evaluation. Chronic medical problems are stable with no acute changes in symptoms or medications: Yes Current or ongoing urinary symptoms: No Anesthesia: Personal or Family history of problems related to anesthesia (ex.Malignant Hyperthermia): No History of difficult intubations: No Pacer/AICD: No; PONV: No Penicillin Allergy: hives/itching Cardiac: Hx of Cardiac Disease/Stents -Yes- s/p LILIANA x2 (2008) Current Symptoms of Angina - No Current Symptoms of Decompensated Heart Failure - No Use of Beta-Blockers - No Current Functional Status ? 4 - Yes Pulmonary: History of GO: no History of asthma or COPD: No Smoker: yes STOP-BANG Risk Assessment: STOP Questions o Do you snore? Yes o Frequently tired during the day? Yes o Observed gasping or choking episodes while asleep? No o Diagnosis of/or treated for high blood pressure? Yes BANG Questions o Age more than 50? Yes o Gender assignment at : Male? Yes o Neck circumference greater than 40 cm? Yes o BMI more then 35? - Body mass index is 30.27 kg/m . No High risk: Yes (High risk ? 5 STOP-BANG; STOP ? 2 AND Male; STOP ? 2 AND BMI > 35 kg/m2; STOP ? 2 AND Neck ? 40cm) MEDICAL HISTORY: Past Medical History: Diagnosis Date Arthritis Diverticulitis Hyperlipidemia VT (myocardial infarction) Past Surgical History: Procedure Laterality Date ARTHROPLASTY HIP TOTAL ANTERIOR APPROACH Right 07/02/2021 Laterality: Right; Surgeon: Amarjit Marroquin MD; [facility] ASPIRATION OR INJECTION LARGE JOINT BURSA Left 07/02/2021 Laterality: Left; Surgeon: Amarjit Marroquin MD; Location: [facility] OR AORTIC STENT MENISCECTOMY Left SHOULDER ARTHROSCOPY Right SOCIAL HISTORY: reports that he has been smoking cigarettes. He has a 12.00 pack-year smoking history. He has neverused smokeless tobacco. He reports current alcohol use. He reports that he does not use drugs. FAMILY HISTORY: family history includes Heart Disease - Other in his father, maternal grandfather, maternal uncle, mother, and paternal grandfather; Myocardial Infarction in his maternal grandfather, maternal uncle,and paternal grandfather; Uterine Cancer in his mother. MEDICATIONS: Current Outpatient Medications Medication Instructions acetaminophen (TYLENOL) 650 mg, Oral, EVERY 6 HOURS NEEDED aspirin 81 mg, Oral, DAILY atorvastatin (LIPITOR) 5 mg, Oral, EVERY OTHER DAY ezetimibe (ZETIA) 5 mg, Oral, EVERY OTHER DAY mupirocin (Bactroban Nasal) 2 % Ointment Intranasal Approximately 0.5 gram applied into each nostril twice daily for 5 days ( Please dispense regular generic mupirocin ointment if nasal ointment is not available or not covered by insurance ) Naproxen Sodium (Aleve) 220 MG capsule Oral, NEEDED pantoprazole (PROTONIX) 20 mg, Oral, DAILY ALLERGIES: Allergies Allergen Reactions Penicillins Itching Itching Rosuvastatin Numbness Other reaction(s): Other Simvastatin Other reaction(s): Myalgias, Other Ciprofloxacin Numbness Meloxicam Hives It is tolerable if he uses benadryl. Varenicline Other reaction(s): Mental Status Change Depression REVIEW OF SYSTEMS The patient denies any chest pain on exertion, shortness of breath, orthopnea or palpitation ROS also negative for fever, chills, headache, dizziness, cough, sputum, nausea, vomiting, diarrhea, constipation, dysuria, hematuria, rashes or easy bleeding. All other systems were reviewed and were negative OBJECTIVE Vitals: 07/31/22 0716 BP: 138/86 Pulse: 74 Resp: 16 SpO2: 97% Weight: 97.1 kg (214 lb) Height: 1.791 m (5' 10.5") Body mass index is 30.27 kg/m . General:67 y.o. male in NAD, alert and oriented x 3 HEENT: Normocephalic, pupils equal round and reactive to light, EOMI, wearing glasses Neck: Full ROM, supple, no lymphadenopathy Pulmonary: bilateral breath sounds, clear to auscultation, no use of accessory muscles, no wheezes/rhonchi/rales Cardiovascular:Regular rate and rhythm. Normal S1, S2, No murmurs, rubs or gallops Abdomen: soft, nontender, nondistended, normoactive bowel sounds, Extremities: No cyanosis, clubbing or edema. Normal peripheral pulses noted. Neuro: Cranial nerves are grossly intact, No focal deficits noted, moving all 4 extremities. Skin: warm, dry, intact; no erythema or rash DATA REVIEW Lab Results Component Value Date WBC 12.05 (H) 07/31/2022 HGB 16.8 07/31/2022 HCT 49.9 (H) 07/31/2022 PLATELET 261 07/31/2022 MCV 90.2 07/31/2022 Lab Results Component Value Date SODIUM 141 07/31/2022 POTASSIUM 5.0 07/31/2022 CHLORIDE 107 07/31/2022 CO2 28 07/31/2022 BUN 25 07/31/2022 CREATSERUM 1.19 07/31/2022 GLUCOSE 152 (H) 07/03/2021 Lab Results Component Value Date INR 1.0 07/31/2022 INR 1.1 06/08/2021 PT 13.2 07/31/2022 PT 13.5 06/08/2021 Hemoglobin A1C (%) Date Value 07/31/2022 5.2 06/08/2021 5.3 In addition to the labs above, I have personally reviewed all laboratory data in the EMR and CareEverywhere Imaging/EKG and procedures: I have personally reviewed the EKG and my findings are normal sinus rhythm ECHO: TTE (05/24/2009) CONCLUSIONS S/p NSTEMI and Stent to LAD. Technically Difficult and Limited Study. 1. Grossly normal LV and RV systolic function. 2. Valves and aorta not well seen. 3. Trivial pericardial effusion. Stress 05/09/22 Impression: 1. Technically adequate (percent predicted maximal heart rate greater than 85%) exercise tolerance test 2. Peak exercise ECG with no obvious ECG changes at the heart rate achieved 3. There were no cardiac dysrhythmias pretest, during exercise, or recovery 4. Nuclear images pending Interpretation: Rest and stress SPECT Cardiolite nuclear imaging status post realignment, normalization, and attenuation correction, demonstrates the appearance of extracardiac/gastrointestinal tracer uptake near the inferior segments and otherwise relative uniform tracer uptake and myocardial perfusion appearing within normal limits. There is end systolic thickening and brightening. The gated Cardiolite study demonstrates myocardial thickening and inward wall motion. The reported LVEF is 58%. I have personally reviewed the imaging findings in the chart. ASSESSMENT AND PLAN Pre-operative Risk Evaluation - Meir Landrum is at a Acceptable risk for a intermediate risk surgery - Per ACC/AHA guidelines, the patient requires no further testing at this time. - METS >4: yes, good exercise tolerance - Patient Meets the Following RCRI Criteria (RCRI): *History of congestive heart failure: 1 criteria suggesting a 6.0% risk of major cardiac events - Please utilize continuous pulse oximetry & telemetry for at least 24 hours and consider usingCPAP or BiPAP when patient is sleeping for patients if High risk for GO Coronary artery disease H/O VT (2008) -s/p LILIANA x 2 (2008) -stable on asa, -denies CV symptoms HLD -managed on atorvastatin, ezetimibe, GERD Diverticulitis -stable on pantoprazole Tobacco use -recommend cessation -counseled on risks of perioperative tobacco use including delayed wound healing and wound infection Leukocytosis -mild,likely inflammatory, s/p RFA 07/03/22 -monitor and trend post-op Obesity Body mass index is 30.27 kg/m .:- Lifestyle modifications Perioperative medication recommendations: THE DAY OF your surgery: WHAT TO DO ABOUT YOUR MEDICATIONS: acetaminophen 325 MG tablet Take 2 tablets by mouth every 6 hours as needed for Mild Pain. aspirin 81 MG Chew Tab chewable tablet Chew 81 mg daily. atorvastatin 10 MG tablet Ok to take morning of surgery ezetimibe 10 MG tablet Do Not take the morning of surgery Naproxen Sodium (Aleve) 220 MG capsule Do not take 5 days prior to surgery pantoprazole [address] tablet DR Herrera to take morning of surgery Above recommendations were discussed with the patient, and patient understood and agreed with the plan outlined above. Thank you for allowing us to participate in the care of Meir Landrum. SYLVIE Warren Division of Hospital Medicine [facility]11-23-2022 History and physical note* SYLVIE Warren - 07/31/2022 7:15 AM EST Pre-Operative Assessment (PAT) Outpatient Clinic Note H&P Date of Evaluation: 07/31/2022 Date of Surgery: 08/14/22 Surgeon: Dr Mcguire Pre-Op Diagnosis: shoulder pain Planned Procedure: ARTHROPLASTY SHOULDER TOTAL - Left CHIEF COMPLAINT Preoperative cardiovascular testing and medication management for major surgery HISTORY Meir Landrum is a 67 y.o. male with the below history presenting for preoperative evaluation. Chronic medical problems are stable with no acute changes in symptoms or medications: Yes Current or ongoing urinary symptoms: No Anesthesia: Personal or Family history of problems related to anesthesia (ex.Malignant Hyperthermia): No History of difficult intubations: No Pacer/AICD: No; PONV: No Penicillin Allergy: hives/itching Cardiac: Hx of Cardiac Disease/Stents -Yes- s/p LILIANA x2 (2008) Current Symptoms of Angina - No Current Symptoms of Decompensated Heart Failure - No Use of Beta-Blockers - No Current Functional Status ? 4 - Yes Pulmonary: History of GO: no History of asthma or COPD: No Smoker: yes STOP-BANG Risk Assessment: STOP Questions o Do you snore? Yes o Frequently tired during the day? Yes o Observed gasping or choking episodes while asleep? No o Diagnosis of/or treated for high blood pressure? Yes BANG Questions o Age more than 50? Yes o Gender assignment at : Male? Yes o Neck circumference greater than 40 cm? Yes o BMI more then 35? - Body mass index is 30.27 kg/m . No High risk: Yes (High risk ? 5 STOP-BANG; STOP ? 2 AND Male; STOP ? 2 AND BMI > 35 kg/m2; STOP ? 2 AND Neck ? 40cm) MEDICAL HISTORY: Past Medical History: Diagnosis Date Arthritis Diverticulitis Hyperlipidemia VT (myocardial infarction) Past Surgical History: Procedure Laterality Date ARTHROPLASTY HIP TOTAL ANTERIOR APPROACH Right 07/02/2021 Laterality: Right; Surgeon: Amarjit Marroquin MD; Location: [facility] OR ASPIRATION OR INJECTION LARGE JOINT BURSA Left 07/02/2021 Laterality: Left; Surgeon: Amarjit Marroquin MD; Location: [facility] MAIN OR AORTIC STENT MENISCECTOMY Left SHOULDER ARTHROSCOPY Right SOCIAL HISTORY: reports that he has been smoking cigarettes. He has a 12.00 pack-year smoking history. He has neverused smokeless tobacco. He reports current alcohol use. He reports that he does not use drugs. FAMILY HISTORY: family history includes Heart Disease - Other in his father, maternal grandfather, maternal uncle, mother, and paternal grandfather; Myocardial Infarction in his maternal grandfather, maternal uncle,and paternal grandfather; Uterine Cancer in his mother. MEDICATIONS: Current Outpatient Medications Medication Instructions acetaminophen (TYLENOL) 650 mg, Oral, EVERY 6 HOURS NEEDED aspirin 81 mg, Oral, DAILY atorvastatin (LIPITOR) 5 mg, Oral, EVERY OTHER DAY ezetimibe (ZETIA) 5 mg, Oral, EVERY OTHER DAY mupirocin (Bactroban Nasal) 2 % Ointment Intranasal Approximately 0.5 gram applied into each nostril twice daily for 5 days ( Please dispense regular generic mupirocin ointment if nasal ointment is not available or not covered by insurance ) Naproxen Sodium (Aleve) 220 MG capsule Oral, NEEDED pantoprazole (PROTONIX) 20 mg, Oral, DAILY ALLERGIES: Allergies Allergen Reactions Penicillins Itching Itching Rosuvastatin Numbness Other reaction(s): Other Simvastatin Other reaction(s): Myalgias, Other Ciprofloxacin Numbness Meloxicam Hives It is tolerable if he uses benadryl. Varenicline Other reaction(s): Mental Status Change Depression REVIEW OF SYSTEMS The patient denies any chest pain on exertion, shortness of breath, orthopnea or palpitation ROS also negative for fever, chills, headache, dizziness, cough, sputum, nausea, vomiting, diarrhea, constipation, dysuria, hematuria, rashes or easy bleeding. All other systems were reviewed and were negative OBJECTIVE Vitals: 07/31/22 0716 BP: 138/86 Pulse: 74 Resp: 16 SpO2: 97% Weight: 97.1 kg (214 lb) Height: 1.791 m (5' 10.5") Body mass index is 30.27 kg/m . General:67 y.o. male in NAD, alert and oriented x 3 HEENT: Normocephalic, pupils equal round and reactive to light, EOMI, wearing glasses Neck: Full ROM, supple, no lymphadenopathy Pulmonary: bilateral breath sounds, clear to auscultation, no use of accessory muscles, no wheezes/rhonchi/rales Cardiovascular:Regular rate and rhythm. Normal S1, S2, No murmurs, rubs or gallops Abdomen: soft, nontender, nondistended, normoactive bowel sounds, Extremities: No cyanosis, clubbing or edema. Normal peripheral pulses noted. Neuro: Cranial nerves are grossly intact, No focal deficits noted, moving all 4 extremities. Skin: warm, dry, intact; no erythema or rash DATA REVIEW Lab Results Component Value Date WBC 12.05 (H) 07/31/2022 HGB 16.8 07/31/2022 HCT 49.9 (H) 07/31/2022 PLATELET 261 07/31/2022 MCV 90.2 07/31/2022 Lab Results Component Value Date SODIUM 141 07/31/2022 POTASSIUM 5.0 07/31/2022 CHLORIDE 107 07/31/2022 CO2 28 07/31/2022 BUN 25 07/31/2022 CREATSERUM 1.19 07/31/2022 GLUCOSE 152 (H) 07/03/2021 Lab Results Component Value Date INR 1.0 07/31/2022 INR 1.1 06/08/2021 PT 13.2 07/31/2022 PT 13.5 06/08/2021 Hemoglobin A1C (%) Date Value 07/31/2022 5.2 06/08/2021 5.3 In addition to the labs above, I have personally reviewed all laboratory data in the EMR and CareEverywhere Imaging/EKG and procedures: I have personally reviewed the EKG and my findings are normal sinus rhythm ECHO: TTE (05/24/2009) CONCLUSIONS S/p NSTEMI and Stent to LAD. Technically Difficult and Limited Study. 1. Grossly normal LV and RV systolic function. 2. Valves and aorta not well seen. 3. Trivial pericardial effusion. Stress 05/09/22 Impression: 1. Technically adequate (percent predicted maximal heart rate greater than 85%) exercise tolerance test 2. Peak exercise ECG with no obvious ECG changes at the heart rate achieved 3. There were no cardiac dysrhythmias pretest, during exercise, or recovery 4. Nuclear images pending Interpretation: Rest and stress SPECT Cardiolite nuclear imaging status post realignment, normalization, and attenuation correction, demonstrates the appearance of extracardiac/gastrointestinal tracer uptake near the inferior segments and otherwise relative uniform tracer uptake and myocardial perfusion appearing within normal limits. There is end systolic thickening and brightening. The gated Cardiolite study demonstrates myocardial thickening and inward wall motion. The reported LVEF is 58%. I have personally reviewed the imaging findings in the chart. ASSESSMENT AND PLAN Pre-operative Risk Evaluation - Meir Landrum is at a Acceptable risk for a intermediate risk surgery - Per ACC/AHA guidelines, the patient requires no further testing at this time. - METS >4: yes, good exercise tolerance - Patient Meets the Following RCRI Criteria (RCRI): *History of congestive heart failure: 1 criteria suggesting a 6.0% risk of major cardiac events - Please utilize continuous pulse oximetry & telemetry for at least 24 hours and consider usingCPAP or BiPAP when patient is sleeping for patients if High risk for GO Coronary artery disease H/O VT (2008) -s/p LILIANA x 2 (2008) -stable on asa, -denies CV symptoms HLD -managed on atorvastatin, ezetimibe, GERD Diverticulitis -stable on pantoprazole Tobacco use -recommend cessation -counseled on risks of perioperative tobacco use including delayed wound healing and wound infection Leukocytosis -mild,likely inflammatory, s/p RFA 07/03/22 -monitor and trend post-op Obesity Body mass index is 30.27 kg/m .:- Lifestyle modifications Perioperative medication recommendations: THE DAY OF your surgery: WHAT TO DO ABOUT YOUR MEDICATIONS: acetaminophen 325 MG tablet Take 2 tablets by mouth every 6 hours as needed for Mild Pain. aspirin 81 MG Chew Tab chewable tablet Chew 81 mg daily. atorvastatin 10 MG tablet Ok to take morning of surgery ezetimibe 10 MG tablet Do Not take the morning of surgery Naproxen Sodium (Aleve) 220 MG capsule Do not take 5 days prior to surgery pantoprazole [address] tablet DR Herrera to take morning of surgery Above recommendations were discussed with the patient, and patient understood and agreed with the plan outlined above. Thank you for allowing us to participate in the care of Meir Landrum. SYLVIE Warren Division of Hospital Medicine [facility] Instructions* Patient Instructions* SYLVIE Warren - 07/31/2022 7:15 AM EST Patient Name: Meir Landrum You will be contacted 2 business days prior to your procedure date and will be notified of arrival time and where to register. What you need to bring to the hospital: 1. A photo ID 2. Insurance Card 3. Co-pay for insurance if applicable 4. A list of ALL MEDICATIONS you are currently taking including the dose and times that you take them You will be turning this list over to your nurse. 5. Crutches/walker if applicable. 6. CPAP machine if applicable. What to leave at home: 1. ALL valuables, cell phone, wallet, purse 2. ALL jewelry including watches, wedding bands and ANY FORM of piercing. 3. DO NOT wear lotion, makeup, nail russian, contact lens, or perfume/cologne. 4. DO NOT bring actual pill bottles or home medications unless instructed to do so. PRIOR to your surgery: 1. Do NOT shave, or pluck hair from anywhere near the surgical site the day of or the day before surgery. Bathe the night before and the morning of surgery. 2. DO NOT eat or drink ANYTHING after midnight or the day of surgery. As well as, no gum or breath mints after midnight. 3. DO NOT smoke ANYTHING after midnight the night before your surgery. 4. You may brush your teeth and rinse/gargle you mouth after midnight but avoid drinking too much water. 5. ABSTAIN from using nicotine in any form around the time of your surgery. Smoking or Chewing tobacco can delay wound healing and result in increased risk of infection after surgery. 6. ABSTAIN from alcohol or drug use for one week prior to surgery. Do not show up to your surgery intoxicated or under the influence of any drugs. Drug use within 24 hour of any kind could result in a cancellation of your procedure 7. If you are seen in ER or have any unplanned medical visits between now and your surgery date, please notify your surgeon's office prior to your day of surgery. THE DAY OF your surgery: WHAT TO DO ABOUT YOUR MEDICATIONS: acetaminophen 325 MG tablet Ok to take morning of surgery aspirin 81 MG Chew Tab chewable tablet Ok to take morning of surgery atorvastatin 10 MG tablet Ok to take morning of surgery ezetimibe 10 MG tablet Do Not take the morning of surgery Naproxen Sodium (Aleve) 220 MG capsule Do not take 5 days prior to surgery pantoprazole [address] tablet Ok to take morning of surgery Medications that may need to be STOPPED 24 hours or greater BEFORE surgery. 1. All herbal medications should be stopped 7 days before surgery. (fish oil, glucosamine, garlic, tumeric, etc) 2. Hold NSAIDS for 5 days (Aleve, Motrin, Ibuprofen, Advil, Naproxen, Diclofenac, Celebrex and Meloxicam). It is okay to take Tylenol. 3. Hold Multi-Vitamins for 3 days. 4. Please contact [facility] if you have changes to your medications before surgery. We work in conjunction with your surgeon but cannot any specific questions about your surgery. If you have any questions specific to our visit today for your preoperative testing, please contactthe [facility] at [phone]. Please direct any questions regarding your surgery to your surgeon s office documented in this [facility]10-26-[facility]22 History and physical note* Teresita Rawls MD - 07/03/2022 8:40 AM EDT CC: low back pain HPI: Meir Landrum is a 67 y.o. male presenting with low back pain. Patient is here for plannedleft L2-L5 medial branch/ radiofrequency ablation. No anti- coagulation or steroid use, no open wounds, no recent infections, no antibiotic use, and no recent dental procedures. PMH: Past Medical History: Diagnosis Date Arthritis Diverticulitis Hyperlipidemia VT (myocardial infarction) PSH: Past Surgical History: Procedure Laterality Date ARTHROPLASTY HIP TOTAL ANTERIOR APPROACH Right 07/02/2021 Laterality: Right; Surgeon: Amarjit Marroquin MD; Location: [facility] OR ASPIRATION OR INJECTION LARGE JOINT BURSA Left 07/02/2021 Laterality: Left; Surgeon: Amarjit Marroquin MD; Location: [facility] MAIN OR AORTIC STENT MENISCECTOMY Left SHOULDER ARTHROSCOPY Right Current medications: Current Outpatient Medications Medication Sig Dispense Refill acetaminophen 325 MG tablet Take 2 tablets by mouth every 6 hours as needed for Mild Pain. atorvastatin 10 MG tablet Take 5 mg by mouth every other day. celecoxib (CeleBREX) 100 MG capsule Take 2 capsules by mouth 2 times daily. 60 capsule 1 clindamycin 150 MG capsule Take 150 mg by mouth 4 times daily. ezetimibe 10 MG tablet Take 5 mg by mouth every other day. pantoprazole [address] tablet DR Take 20 mg by mouth daily. No current facility-administered medications for this visit. Allergy: Penicillins, Rosuvastatin, Simvastatin, Ciprofloxacin, Meloxicam, and Varenicline Family Hx: Family History Problem Relation Age of Onset Uterine Cancer Mother Heart Disease - Other Mother Heart Disease - Other Father Heart Disease - Other Maternal Uncle Myocardial Infarction Maternal Uncle Heart Disease - Other Maternal Grandfather Myocardial Infarction Maternal Grandfather Heart Disease - Other Paternal Grandfather Myocardial Infarction Paternal Grandfather Soc/Functional Hx: Social History Socioeconomic History Marital status: Single Spouse name: Not on file Number of children: Not on file Years of education: Not on file Highest education level: Not on file Occupational History Not on file Tobacco Use Smoking status: Former Packs/day: 1.00 Years: 40.00 Pack years: 40.00 Types: Cigarettes Quit date: 06/05/2021 Years since quittin.0 Smokeless tobacco: Never Vaping Use Vaping Use: Never used Substance and Sexual Activity Alcohol use: Yes Comment: Less than once a week Drug use: Never Sexual activity: Not on file Other Topics Concern Not on file Social History Narrative Not on file Social Determinants of Health Financial Resource Strain: Not on file Food Insecurity: Not on file Transportation Needs: Not on file Physical Activity: Not on file Stress: Not on file Social Connections: Not on file Intimate Partner Violence: Not on file Housing Stability: Not on file ROS (relevant): General/Constitutional: No fevers, night sweats, unintentional wt loss Eyes: No acute vision changes Respiratory: No dyspnea Cardio: No Chest pain GI: - bowel dysfunction : - bladder dysfunction MSK: - joint pain, swelling, changes Neuro: - weakness, - saddle anesthesia Heme: No easy bruising, bleeding Psych: No acute mood changes, SI or HI Skin: No new rashes Heme: No jaundice Physical Examination: BP 137/81 Pulse 82 Temp 97.3 F (36.3 C) Ht 1.803 m (5' 11") Wt 93 kg (205 lb) BMI 28.59 kg/m Smoking Status Former BMI = Body mass index is 28.59 kg/m . General: pleasant, cooperative, NAD HEENT: EOMI. Tracking in room Heart: RRR. Lungs: Unlabored breathing Abd: soft, non-tender Ext: No pedal edema Skin: warm and dry. No dysesthesia/allodynia Heme: Non-jaundiced Lymph: No palpable lymph nodes MSK: grossly normal Neurological: Alert and oriented. CN II-XII intact LE MMT: moving all limbs spontaneously and at least anti-gravity throughout Tone: normal Diagnostic studies (reviewed with and explained to pt): Radiology results: None recent Lab Results Component Value Date CREATSERUM 0.96 07/03/2021 BUN 19 07/03/2021 SODIUM 132 (L) 07/03/2021 POTASSIUM 3.8 07/03/2021 CHLORIDE 102 07/03/2021 CO2 23 07/03/2021 No results found for: ALT, TRANSFERASEA, AST, GGT, GAMMAGT, ALKPHOS, BILITOTAL, BILIDIRECT Lab Results Component Value Date WBC 8.52 01/30/2022 HGB 15.3 01/30/2022 HCT 46.0 01/30/2022 PLATELET 231 01/30/2022 MCV 92.0 01/30/2022 Lab Results Component Value Date INR 1.1 06/08/2021 PT 13.5 06/08/2021 Lab Results Component Value Date SEDRATE 8 01/30/2022 Problem List: 1. Low back pain. Assessment: 1. Lumbar spondylosis 2. Left L2-L5 medial branch/ radiofrequency ablation Teresita Rawls MD Automatic [employer]acker- Clinical [facility] Department of Anesthesiology- Pain Medicine documented in this [facility]10-26-2022 History of Present illness Narrative* Teresita Rawls MD - 07/03/2022 8:40 AM EDTAssociated Order(s): RADIOFREQUENCY ABLATION Post-Procedure Diagnose(s): Spondylosis 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 or radiculopathy RADIOFREQUENCY ABLATION Date/Time: 07/03/2022 8:40 AM Performed by: Teresita Rawls MD Authorized by: Teresita Rawls MD Procedure Details: Radiofrequency Ablation for 3 level(s):Left After informed consent was obtained, the patient was escorted back to the procedure room and placedprone on the procedure table. Verbal verification and time-out was performed and all present were in agreement. Vital sign monitoring was initiated. The patient was sterilely prepped and draped in usual fashion using Chloraprep. The procedure was completed with intermittent fluoroscopy. The skin and soft tissues overlying the affected region were anesthetized using 5 mL of lidocaine 1%. A 20 G 100 mm curved tip radiofrequency needle with 10 mm active tip was directed toward the anatomic location of the medial branch nervesat the sacral ala, superior articular process / transverse process junctions and L5 dorsal ramus ofthe above listed levels. Utilizing intermittent fluoroscopy anteroposterior, lateral and ipsilateral oblique views were used to confirm placement. Motor stimulation up to 2 mV was done to confirm no ablation of the ventral ramus at each level. After waiting 30-60 seconds, the ablation was performedusing a radiofrequency generator at 80 degrees C for 90 seconds. The needle(s) were then moved slightly back and rotated and a second ablation was done at 80 degrees C for another 90 seconds. The needle(s) were removed. Post Procedure Details: Complications: none The procedure was tolerated well. The patient was transported to the recovery room where they were observed prior to discharge. The patient was discharged to home. They were advised to contact the office with any questions or concerns. Pre-Procedure Details The procedure was performed with a resident Resident: Michelle Vo MD The attending physician was present for the entire procedure. I have personally evaluated this patient on the day of service, and personally supervised the procedures as they were performed or performed any portion of the procedures myself. Pre Procedure Details: Informed consent was obtained. Risks and benefits were explained to the patient and they wish to proceed. We discussed risks (pain, bleeding, infection, CSF leak, positional headache, paralysis, nerve injury, medication allergy, seizure, stroke and ), benefits (pain relief and increase in function and improvement of QoL), and process involved. . documented in this [facility]10-26-2022 History and physical note* Teresita Rawls MD - 07/03/2022 8:40 AM EDT CC: low back pain HPI: Meir Landrum is a 67 y.o. male presenting with low back pain. Patient is here for plannedleft L2-L5 medial branch/ radiofrequency ablation. No anti- coagulation or steroid use, no open wounds, no recent infections, no antibiotic use, and no recent dental procedures. PMH: Past Medical History: Diagnosis Date Arthritis Diverticulitis Hyperlipidemia VT (myocardial infarction) PSH: Past Surgical History: Procedure Laterality Date ARTHROPLASTY HIP TOTAL ANTERIOR APPROACH Right 07/02/2021 Laterality: Right; Surgeon: Amarjit Marroquin MD; Location: [facility] OR ASPIRATION OR INJECTION LARGE JOINT BURSA Left 07/02/2021 Laterality: Left; Surgeon: Amarjit Marroquin MD; Location: [facility] MAIN OR AORTIC STENT MENISCECTOMY Left SHOULDER ARTHROSCOPY Right Current medications: Current Outpatient Medications Medication Sig Dispense Refill acetaminophen 325 MG tablet Take 2 tablets by mouth every 6 hours as needed for Mild Pain. atorvastatin 10 MG tablet Take 5 mg by mouth every other day. celecoxib (CeleBREX) 100 MG capsule Take 2 capsules by mouth 2 times daily. 60 capsule 1 clindamycin 150 MG capsule Take 150 mg by mouth 4 times daily. ezetimibe 10 MG tablet Take 5 mg by mouth every other day. pantoprazole [address] tablet DR Take 20 mg by mouth daily. No current facility-administered medications for this visit. Allergy: Penicillins, Rosuvastatin, Simvastatin, Ciprofloxacin, Meloxicam, and Varenicline Family Hx: Family History Problem Relation Age of Onset Uterine Cancer Mother Heart Disease - Other Mother Heart Disease - Other Father Heart Disease - Other Maternal Uncle Myocardial Infarction Maternal Uncle Heart Disease - Other Maternal Grandfather Myocardial Infarction Maternal Grandfather Heart Disease - Other Paternal Grandfather Myocardial Infarction Paternal Grandfather Soc/Functional Hx: Social History Socioeconomic History Marital status: Single Spouse name: Not on file Number of children: Not on file Years of education: Not on file Highest education level: Not on file Occupational History Not on file Tobacco Use Smoking status: Former Packs/day: 1.00 Years: 40.00 Pack years: 40.00 Types: Cigarettes Quit date: 06/05/2021 Years since quittin.0 Smokeless tobacco: Never Vaping Use Vaping Use: Never used Substance and Sexual Activity Alcohol use: Yes Comment: Less than once a week Drug use: Never Sexual activity: Not on file Other Topics Concern Not on file Social History Narrative Not on file Social Determinants of Health Financial Resource Strain: Not on file Food Insecurity: Not on file Transportation Needs: Not on file Physical Activity: Not on file Stress: Not on file Social Connections: Not on file Intimate Partner Violence: Not on file Housing Stability: Not on file ROS (relevant): General/Constitutional: No fevers, night sweats, unintentional wt loss Eyes: No acute vision changes Respiratory: No dyspnea Cardio: No Chest pain GI: - bowel dysfunction : - bladder dysfunction MSK: - joint pain, swelling, changes Neuro: - weakness, - saddle anesthesia Heme: No easy bruising, bleeding Psych: No acute mood changes, SI or HI Skin: No new rashes Heme: No jaundice Physical Examination: BP 137/81 Pulse 82 Temp 97.3 F (36.3 C) Ht 1.803 m (5' 11") Wt 93 kg (205 lb) BMI 28.59 kg/m Smoking Status Former BMI = Body mass index is 28.59 kg/m . General: pleasant, cooperative, NAD HEENT: EOMI. Tracking in room Heart: RRR. Lungs: Unlabored breathing Abd: soft, non-tender Ext: No pedal edema Skin: warm and dry. No dysesthesia/allodynia Heme: Non-jaundiced Lymph: No palpable lymph nodes MSK: grossly normal Neurological: Alert and oriented. CN II-XII intact LE MMT: moving all limbs spontaneously and at least anti-gravity throughout Tone: normal Diagnostic studies (reviewed with and explained to pt): Radiology results: None recent Lab Results Component Value Date CREATSERUM 0.96 07/03/2021 BUN 19 07/03/2021 SODIUM 132 (L) 07/03/2021 POTASSIUM 3.8 07/03/2021 CHLORIDE 102 07/03/2021 CO2 23 07/03/2021 No results found for: ALT, TRANSFERASEA, AST, GGT, GAMMAGT, ALKPHOS, BILITOTAL, BILIDIRECT Lab Results Component Value Date WBC 8.52 01/30/2022 HGB 15.3 01/30/2022 HCT 46.0 01/30/2022 PLATELET 231 01/30/2022 MCV 92.0 01/30/2022 Lab Results Component Value Date INR 1.1 06/08/2021 PT 13.5 06/08/2021 Lab Results Component Value Date SEDRATE 8 01/30/2022 Problem List: 1. Low back pain. Assessment: 1. Lumbar spondylosis 2. Left L2-L5 medial branch/ radiofrequency ablation Teresita Rawls MD Automatic [employer]- Clinical [facility] Department of Anesthesiology- Pain Medicine [facility]10-26-2022 Instructions* Patient Instructions* Cira Molina RN - 07/03/2022 8:40 AM EDT Home Care After Ambulatory RFA The following instructions will help you care for yourself, or be cared for upon your return home today. These are guidelines for your care right after your procedure only. Diet: Start your regular diet today Activity: Limit your activity for 24-48 hours. No vigorous activity or heavy lifting for 24-48 hours Apply ice packs to site every 2 hours while awake for 20 minutes. Do not apply directly to skin. Apply for 24 - 48 hours while awake. Wound Care and Hygiene: May remove outer dressing before bedtime tonight. Do not drive or make any important decisions during this time. What to Expect after RFA: Minimal drainage from the incision. Mild to moderate discomfort and tenderness. Call your Doctor for: Pain not relieved with medicines. Increased amounts of redness, swelling, or any drainage (pus) from the incision. Temperature above 101 degrees. Nausea and vomiting not resolved in 24 hours. Call your doctor's office at [phone] to make a follow up appointment. Other Instructions: No showers for 24 hours or tub bathing for 5 days. Bupivacaine/Lidocaine (Injection) Bupivacaine (kzi-QNW-m-kidd), Lidocaine (TFR-mam-qxpp) Causes numbness! Brand Name(s): There may be other brand names for this medicine. When This Medicine Should Not Be Used: You should not receive this medicine if you have had an allergic reaction to bupivacaine, lidocaine, or certain other types of local anesthetic (numbing medicine). You should not receive this medicine if you have certain heart rhythm problems such as Xopcn-Zorwyqkjy-Flzqq syndrome, Matthews-Choe syndrome, or severe heart block, unless you have a pacemaker. How to Use This Medicine: Drugs and Foods to Avoid: Ask your doctor or pharmacist before using any other medicine, including seps-nla-eqowisw medicines, vitamins, and herbal products. Make sure your doctor knows if you are taking heart or blood pressure medicine such as digoxin (Lanoxin ), atenolol (Tenormin ), propranolol (Inderal ), or metoprolol (Lopressor ). Make sure your doctor knows about any other medicine you have used recently. Warnings While Using This Medicine: Make sure your doctor knows if you are or breast feeding. You may need to stop breast feeding for a short time after receiving this medicine. Make sure your doctor knows if you have high blood pressure, low blood pressure, or other circulation problems. Tell your doctor if you have heart problems, such as congestive heart failure or heart rhythm problems. Make sure your doctor knows if you have liver disease, or any other health problemsor drug allergies. Possible Side Effects While Using This Medicine: Call your doctor right away if you notice any of these side effects: Allergic reaction: Itching or hives, swelling in your face or hands, swelling or tingling in your mouth or throat, chest tightness, trouble breathing Dizziness, drowsiness, confusion (trouble thinking), seizures (convulsions), or fainting. Nausea or vomiting. Loss of feeling or movement to your eye that lasts longer than your doctor told you to expect. Loss of feeling or movement that happens somewhere else in your body other than the area that was numbed for treatment. Restlessness, anxiety. Ringing in the ears. Sudden or severe headache, or problems with vision, speech, or walking. Tremors, shaking, or chills. Trouble urinating, or new problems controlling when you urinate or have a bowel movement. Uneven, pounding, fast, or slow heartbeats. If you notice other side effects that you think are caused by this medicine, tell your doctor. Call your doctor for medical advice about side effects. You may report side effects to FDA at 5-699-BBZ-3948 documented in this [facility]10-19-2022 History and physical note* Teresita Rawls MD - 06/26/2022 8:40 AM EDT CC: low back pain HPI: Meir Landrum is a 67 y.o. male presenting with low back pain. Patient is here for plannedright L2-L5 medial branch block/ radiofrequency ablation. No anti-coagulation or steroid use, no open wounds, no recent infections, no antibiotic use, and no recent dental procedures. PMH: Past Medical History: Diagnosis Date Arthritis Diverticulitis Hyperlipidemia VT (myocardial infarction) PSH: Past Surgical History: Procedure Laterality Date ARTHROPLASTY HIP TOTAL ANTERIOR APPROACH Right 07/02/2021 Laterality: Right; Surgeon: Amarjit Marroquin MD; Location: [facility] MA[facility] OR ASPIRATION OR INJECTION LARGE JOINT BURSA Left 07/02/2021 Laterality: Left; Surgeon: Amarjit Marroquin MD; Location: [facility] MAIN OR AORTIC STENT MENISCECTOMY Left SHOULDER ARTHROSCOPY Right Current medications: Current Outpatient Medications Medication Sig Dispense Refill acetaminophen 325 MG tablet Take 2 tablets by mouth every 6 hours as needed for Mild Pain. atorvastatin 10 MG tablet Take 5 mg by mouth every other day. celecoxib (CeleBREX) 100 MG capsule Take 2 capsules by mouth 2 times daily. 60 capsule 1 clindamycin 150 MG capsule Take 150 mg by mouth 4 times daily. ezetimibe 10 MG tablet Take 5 mg by mouth every other day. pantoprazole [address] tablet DR Take 20 mg by mouth daily. No current facility-administered medications for this visit. Allergy: Penicillins, Rosuvastatin, Simvastatin, Ciprofloxacin, Meloxicam, and Varenicline Family Hx: Family History Problem Relation Age of Onset Uterine Cancer Mother Heart Disease - Other Mother Heart Disease - Other Father Heart Disease - Other Maternal Uncle Myocardial Infarction Maternal Uncle Heart Disease - Other Maternal Grandfather Myocardial Infarction Maternal Grandfather Heart Disease - Other Paternal Grandfather Myocardial Infarction Paternal Grandfather Soc/Functional Hx: Social History Socioeconomic History Marital status: Single Spouse name: Not on file Number of children: Not on file Years of education: Not on file Highest education level: Not on file Occupational History Not on file Tobacco Use Smoking status: Former Packs/day: 1.00 Years: 40.00 Pack years: 40.00 Types: Cigarettes Quit date: 06/05/2021 Years since quittin.0 Smokeless tobacco: Never Vaping Use Vaping Use: Never used Substance and Sexual Activity Alcohol use: Yes Comment: Less than once a week Drug use: Never Sexual activity: Not on file Other Topics Concern Not on file Social History Narrative Not on file Social Determinants of Health Financial Resource Strain: Not on file Food Insecurity: Not on file Transportation Needs: Not on file Physical Activity: Not on file Stress: Not on file Social Connections: Not on file Intimate Partner Violence: Not on file Housing Stability: Not on file ROS (relevant): General/Constitutional: No fevers, night sweats, unintentional wt loss Eyes: No acute vision changes Respiratory: No dyspnea Cardio: No Chest pain GI: - bowel dysfunction : - bladder dysfunction MSK: - joint pain, swelling, changes Neuro: - weakness, - saddle anesthesia Heme: No easy bruising, bleeding Psych: No acute mood changes, SI or HI Skin: No new rashes Heme: No jaundice Physical Examination: Smoking Status Former BMI = There is no height or weight on file to calculate BMI. General: pleasant, cooperative, NAD HEENT: EOMI. Tracking in room Heart: RRR. Lungs: Unlabored breathing Abd: soft, non-tender Ext: No pedal edema Skin: warm and dry. No dysesthesia/allodynia Heme: Non-jaundiced Lymph: No palpable lymph nodes MSK: grossly normal Neurological: Alert and oriented. CN II-XII intact LE MMT: moving all limbs spontaneously and at least anti-gravity throughout Tone: normal Diagnostic studies (reviewed with and explained to pt): Radiology results: None recent Lab Results Component Value Date CREATSERUM 0.96 07/03/2021 BUN 19 07/03/2021 SODIUM 132 (L) 07/03/2021 POTASSIUM 3.8 07/03/2021 CHLORIDE 102 07/03/2021 CO2 23 07/03/2021 No results found for: ALT, TRANSFERASEA, AST, GGT, GAMMAGT, ALKPHOS, BILITOTAL, BILIDIRECT Lab Results Component Value Date WBC 8.52 01/30/2022 HGB 15.3 01/30/2022 HCT 46.0 01/30/2022 PLATELET 231 01/30/2022 MCV 92.0 01/30/2022 Lab Results Component Value Date INR 1.1 06/08/2021 PT 13.5 06/08/2021 Lab Results Component Value Date SEDRATE 8 01/30/2022 Problem List: 1. Low back pain. Assessment: 1. Lumbar spondylosis 2. Right L2-L5 medial branch/ radiofrequency ablation Teresita Rawls MD Automatic [employer]acker- Clinical [facility] Department of Anesthesiology- Pain Medicine [facility]10-19-2022 History and physical note* Teresita Rawls MD - 06/26/2022 8:40 AM EDT CC: low back pain HPI: Meir Landrum is a 67 y.o. male presenting with low back pain. Patient is here for plannedright L2-L5 medial branch block/ radiofrequency ablation. No anti-coagulation or steroid use, no open wounds, no recent infections, no antibiotic use, and no recent dental procedures. PMH: Past Medical History: Diagnosis Date Arthritis Diverticulitis Hyperlipidemia VT (myocardial infarction) PSH: Past Surgical History: Procedure Laterality Date ARTHROPLASTY HIP TOTAL ANTERIOR APPROACH Right 07/02/2021 Laterality: Right; Surgeon: Amarjit Marroquin MD; Location: [facility] MA[facility] OR ASPIRATION OR INJECTION LARGE JOINT BURSA Left 07/02/2021 Laterality: Left; Surgeon: Amarjit Marroquin MD; Location: [facility] MAIN OR AORTIC STENT MENISCECTOMY Left SHOULDER ARTHROSCOPY Right Current medications: Current Outpatient Medications Medication Sig Dispense Refill acetaminophen 325 MG tablet Take 2 tablets by mouth every 6 hours as needed for Mild Pain. atorvastatin 10 MG tablet Take 5 mg by mouth every other day. celecoxib (CeleBREX) 100 MG capsule Take 2 capsules by mouth 2 times daily. 60 capsule 1 clindamycin 150 MG capsule Take 150 mg by mouth 4 times daily. ezetimibe 10 MG tablet Take 5 mg by mouth every other day. pantoprazole [address] tablet DR Take 20 mg by mouth daily. No current facility-administered medications for this visit. Allergy: Penicillins, Rosuvastatin, Simvastatin, Ciprofloxacin, Meloxicam, and Varenicline Family Hx: Family History Problem Relation Age of Onset Uterine Cancer Mother Heart Disease - Other Mother Heart Disease - Other Father Heart Disease - Other Maternal Uncle Myocardial Infarction Maternal Uncle Heart Disease - Other Maternal Grandfather Myocardial Infarction Maternal Grandfather Heart Disease - Other Paternal Grandfather Myocardial Infarction Paternal Grandfather Soc/Functional Hx: Social History Socioeconomic History Marital status: Single Spouse name: Not on file Number of children: Not on file Years of education: Not on file Highest education level: Not on file Occupational History Not on file Tobacco Use Smoking status: Former Packs/day: 1.00 Years: 40.00 Pack years: 40.00 Types: Cigarettes Quit date: 06/05/2021 Years since quittin.0 Smokeless tobacco: Never Vaping Use Vaping Use: Never used Substance and Sexual Activity Alcohol use: Yes Comment: Less than once a week Drug use: Never Sexual activity: Not on file Other Topics Concern Not on file Social History Narrative Not on file Social Determinants of Health Financial Resource Strain: Not on file Food Insecurity: Not on file Transportation Needs: Not on file Physical Activity: Not on file Stress: Not on file Social Connections: Not on file Intimate Partner Violence: Not on file Housing Stability: Not on file ROS (relevant): General/Constitutional: No fevers, night sweats, unintentional wt loss Eyes: No acute vision changes Respiratory: No dyspnea Cardio: No Chest pain GI: - bowel dysfunction : - bladder dysfunction MSK: - joint pain, swelling, changes Neuro: - weakness, - saddle anesthesia Heme: No easy bruising, bleeding Psych: No acute mood changes, SI or HI Skin: No new rashes Heme: No jaundice Physical Examination: Smoking Status Former BMI = There is no height or weight on file to calculate BMI. General: pleasant, cooperative, NAD HEENT: EOMI. Tracking in room Heart: RRR. Lungs: Unlabored breathing Abd: soft, non-tender Ext: No pedal edema Skin: warm and dry. No dysesthesia/allodynia Heme: Non-jaundiced Lymph: No palpable lymph nodes MSK: grossly normal Neurological: Alert and oriented. CN II-XII intact LE MMT: moving all limbs spontaneously and at least anti-gravity throughout Tone: normal Diagnostic studies (reviewed with and explained to pt): Radiology results: None recent Lab Results Component Value Date CREATSERUM 0.96 07/03/2021 BUN 19 07/03/2021 SODIUM 132 (L) 07/03/2021 POTASSIUM 3.8 07/03/2021 CHLORIDE 102 07/03/2021 CO2 23 07/03/2021 No results found for: ALT, TRANSFERASEA, AST, GGT, GAMMAGT, ALKPHOS, BILITOTAL, BILIDIRECT Lab Results Component Value Date WBC 8.52 01/30/2022 HGB 15.3 01/30/2022 HCT 46.0 01/30/2022 PLATELET 231 01/30/2022 MCV 92.0 01/30/2022 Lab Results Component Value Date INR 1.1 06/08/2021 PT 13.5 06/08/2021 Lab Results Component Value Date SEDRATE 8 01/30/2022 Problem List: 1. Low back pain. Assessment: 1. Lumbar spondylosis 2. Right L2-L5 medial branch/ radiofrequency ablation Teresita Rawls MD Automatic Stacker- Clinical [facility] Department of Anesthesiology- Pain Medicine [facility] History of Present illness Narrative* Teresita Rawls MD - 06/26/2022 8:40 AM EDTAssociated Order(s): RADIOFREQUENCY ABLATION: L3-L4, L4-L5, L5-S1 Post-Procedure Diagnose(s): Spondylosis 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 or radiculopathy RADIOFREQUENCY ABLATION: L3-L4, L4-L5, L5-S1 Date/Time: 06/26/2022 8:40 AM Performed by: Teresita Rawls MD Authorized by: Teresita Rawls MD Procedure Details: Radiofrequency Ablation for 3 level(s):Right L3-L4 L4-L5 L5-S1 After informed consent was obtained, the patient was escorted back to the procedure room and placedprone on the procedure table. Verbal verification and time-out was performed and all present were in agreement. Vital sign monitoring was initiated. The patient was sterilely prepped and draped in usual fashion using Chloraprep. The procedure was completed with intermittent fluoroscopy. The skin and soft tissues overlying the affected region were anesthetized using 5 mL of lidocaine 1%. A 20 G 100 mm curved tip radiofrequency needle with 10 mm active tip was directed toward the anatomic location of the medial branch nervesat the sacral ala, superior articular process / transverse process junctions and L5 dorsal ramus ofthe above listed levels. Utilizing intermittent fluoroscopy anteroposterior, lateral and ipsilateral oblique views were used to confirm placement. Motor stimulation up to 2 mV was done to confirm no ablation of the ventral ramus at each level. After waiting 30-60 seconds, the ablation was performedusing a radiofrequency generator at 80 degrees C for 90 seconds. The needle(s) were then moved slightly back and rotated and a second ablation was done at 80 degrees C for another 90 seconds. The needle(s) were removed. Post Procedure Details: Complications: none The procedure was tolerated well. The patient was transported to the recovery room where they were observed prior to discharge. The patient was discharged to home. They were advised to contact the office with any questions or concerns. Pre-Procedure Details The attending physician was present for the entire procedure. I have personally evaluated this patient on the day of service, and personally supervised the procedures as they were performed or performed any portion of the procedures myself. Pre Procedure Details: Informed consent was obtained. Risks and benefits were explained to the patient and they wish to proceed. We discussed risks (pain, bleeding, infection, CSF leak, positional headache, paralysis, nerve injury, medication allergy, seizure, stroke and ), benefits (pain relief and increase in function and improvement of QoL), and process involved. . documented in this [facility]10-19-2022 Instructions* Patient Instructions* Rocio Benavides RN - 06/26/2022 8:40 AM EDT HOME CARE INSTRUCTIONS These instructions will help you care for yourself, or be cared for when you return home today. MEDICINES: You may take any NON-ASPRIN over the counter medicine for pain as it is directed. You may take all your usual medicines, including pain medicines. Re-Start your blood thinners tomorrow, and hold them as you were instructed before by your Physician. SITE CARE: Remove any band-aid from the injection site after six (6) hours. For Comfort you may apply ice packs to the site for the FIRST forty eight (48) hours, but for only ten (10) to fifteen (15) minutes at a time. After forty eight (48) hours, use a warm heating pad to the site, for only ten (10) to fifteen (15)minutes at a time. Be sure to NEVER place an Ice Pack or Heating Pad directly on the skin. Always wrap them in a lighttowel or cloth to protect the skin from freezing or burning ACTIVITY: Rest, and limit your activity for the remainder of the day. Tomorrow, you may return to work or school. If you have weakness or numbness anywhere caused by the injection, limit your activity until sensation returns to normal. You may Shower after 24 hours of your injection. Do Not soak in a bath tub, Hot tub, or go swimming for 5 days. DIET: Drink at least six (6) to eight (8) cups of Fluid and eat your normal diet today. WHAT TO EXPECT AFTER THE INJECTION: Some soreness and bruising at the injection sites. CALL THE [facility] AT [phone] FOR: Any severe headache that develops in the next forty eight (48) hours. Any unusual increase in your level of pain. Any unexpected swelling, weakness, skin rash, itching or fever. If it is after hours or on a weekend, call your family doctor or visit the nearest emergency room. FOLLOW UP At your next appointment, be sure to be ready to tell the doctor: When you felt relief from the pain. The level of relief you felt. If your pain got worse, and if so, how much worse. If you have any problems, or questions. Please call the [facility] nurse at [phone]. Talk to your doctor or others on your health care team, if you have questions. You may request morewritten information from the [employer] for [employer] at or e-mail: [email or web address] Bupivacaine/Lidocaine (Injection) Bupivacaine ([id number]-YTV-z-kidd), Lidocaine (MCA-ikt-tvme) Causes numbness! Brand Name(s): There may be other brand names for this medicine. When This Medicine Should Not Be Used: You should not receive this medicine if you have had an allergic reaction to bupivacaine, lidocaine, or certain other types of local anesthetic (numbing medicine). You should not receive this medicine if you have certain heart rhythm problems such as Movbx-Tnjwxzsiq-Tjirg syndrome, Matthews-Choe syndrome, or severe heart block, unless you have a pacemaker. How to Use This Medicine: Drugs and Foods to Avoid: Ask your doctor or pharmacist before using any other medicine, including symt-bke-zbreysy medicines, vitamins, and herbal products. Make sure your doctor knows if you are taking heart or blood pressure medicine such as digoxin (Lanoxin ), atenolol (Tenormin ), propranolol (Inderal ), or metoprolol (Lopressor ). Make sure your doctor knows about any other medicine you have used recently. Warnings While Using This Medicine: Make sure your doctor knows if you are or breast feeding. You may need to stop breast feeding for a short time after receiving this medicine. Make sure your doctor knows if you have high blood pressure, low blood pressure, or other circulation problems. Tell your doctor if you have heart problems, such as congestive heart failure or heart rhythm problems. Make sure your doctor knows if you have liver disease, or any other health problemsor drug allergies. Possible Side Effects While Using This Medicine: Call your doctor right away if you notice any of these side effects: Allergic reaction: Itching or hives, swelling in your face or hands, swelling or tingling in your mouth or throat, chest tightness, trouble breathing Dizziness, drowsiness, confusion (trouble thinking), seizures (convulsions), or fainting. Nausea or vomiting. Loss of feeling or movement to your eye that lasts longer than your doctor told you to expect. Loss of feeling or movement that happens somewhere else in your body other than the area that was numbed for treatment. Restlessness, anxiety. Ringing in the ears. Sudden or severe headache, or problems with vision, speech, or walking. Tremors, shaking, or chills. Trouble urinating, or new problems controlling when you urinate or have a bowel movement. Uneven, pounding, fast, or slow heartbeats. If you notice other side effects that you think are caused by this medicine, tell your doctor. Call your doctor for medical advice about side effects. You may report side effects to FDA at 6-277-JAG-1798 Home Care After Ambulatory RFA The following instructions will help you care for yourself, or be cared for upon your return home today. These are guidelines for your care right after your procedure only. Diet: Start your regular diet today Activity: Limit your activity for 24-48 hours. No vigorous activity or heavy lifting for 24-48 hours Apply ice packs to site every 2 hours while awake for 20 minutes. Do not apply directly to skin. Apply for 24 - 48 hours while awake. Wound Care and Hygiene: May remove outer dressing before bedtime tonight. Do not drive or make any important decisions during this time. What to Expect after RFA: Minimal drainage from the incision. Mild to moderate discomfort and tenderness. Call your Doctor for: Pain not relieved with medicines. Increased amounts of redness, swelling, or any drainage (pus) from the incision. Temperature above 101 degrees. Nausea and vomiting not resolved in 24 hours. Call your doctor's office at [phone] to make a follow up appointment. Other Instructions: No showers for 24 hours or tub bathing for 5 days. [facility] History of Present illness Narrative* Amarjit Marroquin MD - 05/01/2022 10:00 AM EDT 10 moPost-operative Visit Date of Surgery: 07/02/21 Side: right total hip arthroplasty; Anterior Approach Subjective: mild pain at the surgical site. Groin with hip flexion only. Lateral with laying on that side. Lateral tenderness down thigh has not been doing exercises. Just working and doing lots of ladders has returned to all desired activities Currently resides at home Assisted Aid: none Taking aleve. Physical Exam: Bilateral upper extremities are grossly intact in motor and sensory function on observation and do not appear to preclude the use of assistive device. Gait: normal right Hip Exam: Wound: wound does not have erythema, redness, or drainage. Range of Motion: Flexion: 110 Degrees Internal Rotation: 40 Degrees External Rotation: 60 Degrees no pain with passive motion. Pain reproduced with active hip flexion Normal active ankle and toe motion, Normal sensation to light touch in the superficial peroneal, deep peroneal, sural, saphenous, and tibial nerve distributions. Foot is well perfused Radiographs: No new imaging today Assessment/Plan: Having iliopsoas and IT band tendinitis. Discussed options and will switch to celebrex, start PT. Will fu in 2 mo for 1 year follow up and clinical recheck. Discussed appropriate activities in the interim. All of the patient's questions were answered, and they were in agreement with the plan of care. They were advised to call the office if they have any further questions or concerns. [facility] History of Present illness Narrative* Zaheer Govea MD - 04/29/2022 4:30 PM EDT Associated Order(s): LARGE JOINT/BURSA INJECTION AND/OR ASPIRATION: L glenohumeral Post-Procedure Diagnose(s): Left shoulder pain, unspecified chronicity LARGE JOINT/BURSA INJECTION AND/OR ASPIRATION: L glenohumeral Date/Time: 04/29/2022 4:30 PM Supporting Documentation Indications: pain Procedure Details: Location: shoulder - L glenohumeral Guidance: ultrasound Ultrasound probe size: 4 mHz curvilinear Images were saved electronically. Needle size: 21 G Needle Length: 3.0 inch Approach: posterior Medication Verification: I have personally verified and performed the final check of the medication(s) used in this procedure prior to administration. The following items were included during the verification process for medication(s) administered: drug name, strength, volume, expiration, physical integrity and appearance of the medication(s). Medications administered: 1 mL triamcinolone 40 MG/ML; 4 mL ropivacaine 1 % Patient tolerance: patient tolerated the procedure well with no immediate complications Comments Comments The use of direct ultrasound visualization of the needle (rather than a non- guided injection) was required to increase patient safety by excluding inadvertent intramuscular or intratendinous placement and minimizing bleeding by avoiding osteochondral or vascular injury from the needle. Additionally, the increased accuracy of placement may increase clinical effectiveness and will allow higher diagnostic specificity when evaluating effectiveness of this injection. Using ultrasound, a pre-scan of the region was performed to identify the target structure. Left GH joint Pre-Procedure Details The attending physician was present for the entire procedure. Consent: Consent was obtained prior to the procedure after discussion of the risks, benefits and alternatives, and expected outcomes were discussed with the patient. The possibilities of reaction to medication, bleeding, infection, the need for additional procedures, failure to diagnosis a condition, and creating a complication requiring operation were discussed with the patient. The patient concurred with the proposed plan, giving consent. Preparation: Patient was prepped in the usual sterile fashion. The patient was prepped with Chloraprep. documented in this encounter[facility]-22-2022 Instructions* Patient Instructions* Zaheer Govea MD - 04/29/2022 4:30 PM EDT POST INJECTION INSTRUCTIONS You have been given a corticosteroid injection. The goal of this is to relieve pain through numbingeffects and reducing inflammation. The result and length of relief from the injection varies for everyone. Content: The injection consists of numbing agent Ropivacaine, in addition to a corticosteroid, Kenalog. Post Injection Care: Apply ice to the area that was injected for 20 minutes at a time, intermittently for the next 2 days. Please allow at least 1-2 hours between icing until the skin returns to normal temperature and color. Please refrain from strenuous activities for the next 3 days. This will help alleviate any discomfort from the injection and help prevent a post injection "flare-up". Possible Side Effects: Very few people may experience increased discomfort for a few days after the injection. This is typically called a post injection "flare-up. Other possible side effects include injection site tenderness, mild soreness, swelling, warmth or redness, infection (<1% chance associated with any procedure). If you experience the following symptoms, please call our office: -Fever over 100 degrees -Significantly increased redness or warmth -Excessive swelling -Drainage documented in this encounterMad[facility]08-03-2022 Note* Addendum Note - Suri Howard - 04/10/2022 2:11 PM EDTAddended by: SURI HOWARD on: 04/10/2022 02:11 PM Modules accepted: Orders [facility]08-03-[facility] Miscellaneous Notes* Addendum Note - Suri Howard - 04/10/2022 2:11 PM EDTAddended by: SURI HOWARD on: 04/10/2022 02:11 PM Modules accepted: Orders * Telephone Encounter - Suri Howard - 04/10/2022 2:10 PM EDT Returned patient call. Dr. Shayla flores another USGI. I rescheduled his appointment for 3:[address] Govea. * Telephone Encounter - Suri Howard - 04/10/2022 12:39 PM EDT Patient called in requesting a second USGI with Dr. Govea. Wants to have sx with [facility] later this year for replacement. Current has an appointment with Dr. Govea scheduled 04/29. documented in this encounterOS[facility] Telephone encounter Note* Telephone Encounter - Suri Howard - 04/10/2022 2:10 PM EDT Returned patient call. Dr. Shayla flores another USGI. I rescheduled his appointment for 3:[address] Govea. [facility] History and physical note* Teresita Rawls MD - 04/10/2022 11:00 AM EDT CC: low back pain HPI: Meir Landrum is a 66 y.o. male presenting with low back pain. Patient is here for plannedbilateral L2-L5 medial branch blocks. No anti-coagulation or steroid use, no open wounds, no recentinfections, no antibiotic use, and no recent dental procedures. PMH: Past Medical History: Diagnosis Date Arthritis Diverticulitis Hyperlipidemia VT (myocardial infarction) PSH: Past Surgical History: Procedure Laterality Date ARTHROPLASTY HIP TOTAL ANTERIOR APPROACH Right 07/02/2021 Laterality: Right; Surgeon: Amarjit Marroquin MD; Location: [facility] MA[facility] OR ASPIRATION OR INJECTION LARGE JOINT BURSA Left 07/02/2021 Laterality: Left; Surgeon: Amrajit Marroquin MD; Location: [facility] MAIN OR AORTIC STENT MENISCECTOMY Left SHOULDER ARTHROSCOPY Right Current medications: Current Outpatient Medications Medication Sig Dispense Refill acetaminophen 325 MG tablet Take 2 tablets by mouth every 6 hours as needed for Mild Pain. atorvastatin 10 MG tablet Take 5 mg by mouth every other day. ezetimibe 10 MG tablet Take 5 mg by mouth every other day. pantoprazole [address] tablet DR Take 20 mg by mouth daily. celecoxib (CeleBREX) 100 MG capsule Take 1 capsule by mouth 2 times daily. 60 capsule 1 clindamycin 150 MG capsule Take 150 mg by mouth 4 times daily. No current facility-administered medications for this visit. Allergy: Penicillins, Rosuvastatin, Simvastatin, Ciprofloxacin, Meloxicam, and Varenicline Family Hx: Family History Problem Relation Age of Onset Uterine Cancer Mother Heart Disease - Other Mother Heart Disease - Other Father Heart Disease - Other Maternal Uncle Myocardial Infarction Maternal Uncle Heart Disease - Other Maternal Grandfather Myocardial Infarction Maternal Grandfather Heart Disease - Other Paternal Grandfather Myocardial Infarction Paternal Grandfather Soc/Functional Hx: Social History Socioeconomic History Marital status: Single Spouse name: Not on file Number of children: Not on file Years of education: Not on file Highest education level: Not on file Occupational History Not on file Tobacco Use Smoking status: Former Smoker Packs/day: 1.00 Years: 40.00 Pack years: 40.00 Types: Cigarettes Quit date: 06/05/2021 Years since quittin.8 Smokeless tobacco: Never Used Vaping Use Vaping Use: Never used Substance and Sexual Activity Alcohol use: Yes Comment: Less than once a week Drug use: Never Sexual activity: Not on file Other Topics Concern Not on file Social History Narrative Not on file Social Determinants of Health Financial Resource Strain: Not on file Food Insecurity: Not on file Transportation Needs: Not on file Physical Activity: Not on file Stress: Not on file Social Connections: Not on file Intimate Partner Violence: Not on file Housing Stability: Not on file ROS (relevant): General/Constitutional: No fevers, night sweats, unintentional wt loss Eyes: No acute vision changes Respiratory: No dyspnea Cardio: No Chest pain GI: - bowel dysfunction : - bladder dysfunction MSK: - joint pain, swelling, changes Neuro: - weakness, - saddle anesthesia Heme: No easy bruising, bleeding Psych: No acute mood changes, SI or HI Skin: No new rashes Heme: No jaundice Physical Examination: BP (!) 140/97 Pulse 83 Temp 97.2 F (36.2 C) Ht 1.803 m (5' 11") Wt 93 kg (205 lb) BMI 28.59 kg/m Smoking Status Former Smoker BMI = Body mass index is 28.59 kg/m . General: pleasant, cooperative, NAD HEENT: EOMI. Tracking in room Heart: RRR. Lungs: Unlabored breathing Abd: soft, non-tender Ext: No pedal edema Skin: warm and dry. No dysesthesia/allodynia Heme: Non-jaundiced Lymph: No palpable lymph nodes MSK: grossly normal Neurological: Alert and oriented. CN II-XII intact LE MMT: moving all limbs spontaneously and at least anti-gravity throughout Tone: normal Diagnostic studies (reviewed with and explained to pt): Radiology results: None recent Lab Results Component Value Date CREATSERUM 0.96 07/03/2021 BUN 19 07/03/2021 SODIUM 132 (L) 07/03/2021 POTASSIUM 3.8 07/03/2021 CHLORIDE 102 07/03/2021 CO2 23 07/03/2021 No results found for: ALT, TRANSFERASEA, AST, GGT, GAMMAGT, ALKPHOS, BILITOTAL, BILIDIRECT Lab Results Component Value Date WBC 8.52 01/30/2022 HGB 15.3 01/30/2022 HCT 46.0 01/30/2022 PLATELET 231 01/30/2022 MCV 92.0 01/30/2022 Lab Results Component Value Date INR 1.1 06/08/2021 PT 13.5 06/08/2021 Lab Results Component Value Date SEDRATE 8 01/30/2022 Problem List: 1. Low back pain Assessment: 1. Lumbar spondylosis 2. Bilateral L2-L5 medial branch blocks Teresita Rawls MD [employer]- Clinical [facility] Department of Anesthesiology- Pain Medicine documented in this encounterMadison Health08-03-2022 History of Present illness Narrative* Teresita Rawls MD - 04/10/2022 11:00 AM EDT Associated Order(s): SPINAL INJECTION: L3, L4, L5, L2, L3, L4, L5, L2 Post-Procedure Diagnose(s): Spondylosis 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 or radiculopathy SPINAL INJECTION: L3, L4, L5, L2, L3, L4, L5, L2 Date/Time: 04/10/2022 11:00 AM Performed by: Teresita Rawls MD Authorized by: Teresita Rawls MD Procedure Details: Procedure performed: medial branch block After informed consent was obtained, the patient was escorted back to the procedure room and placedin the prone position on the procedure table. Verbal verification and time-out was performed and all present were in agreement. Vital sign monitoring was initiated. The patient was sterilely prepped and draped in usual fashion with Chloraprep gluconate 4% antiseptic solution. Procedure guidance: fluoroscopy The fluoroscope was brought into the field and a PA image was obtained to identify the appropriate vertebral body. The anterior and posterior aspects of the superior endplate of the vertebral body were superimposed upon one another. The fluoroscope was then rotated in an oblique angle toward the right and left such that the superior articulating process was positioned midway between the anterior and posterior aspects of the vertebral body superior endplate. A point on the skin overlying the proposed site of needle entry was marked. The skin and subcutaneous tissues overlying the proposed needle entry site were anesthetized with 4 mL of lidocaine 1%. A 22 G 3.5 inch spinal needle was advanced to the medial branch nerve L5 dorsal ramus area. Needle depth was periodically evaluated using fluoroscopic imaging. Correct final needle position was confirmed with anteroposterior, lateral and ipsilateral oblique fluoroscopic imaging. Medication Verification: I have personally verified and performed the final check of the medication(s) used in this procedure prior to administration. The following items were included during the verification process for medication(s) administered: drug name, strength, volume, expiration, physical integrity and appearance of the medication(s). A solution of 0.5 mL bupivacaine (PF) 0.5 % was divided equally among the affected levels and injected. After completion of the injection, the needle was flushed and removed. The above listed procedure was done for: Left L3, L4, L5 and L2 Right L3, L4, L5 and L2 Post Procedure Details: Complications: none The procedure was tolerated well. The patient was transported to the recovery room where they were observed for at least 20 minutes prior to discharge. The patient was discharged to home. They were advised to contact the office with any questions or concerns. Comments: 0.5ml of 1% lidocaine given for local skin infiltration, 0.5ml 0.5% bupivicaine given per spinal level Pre-Procedure Details The procedure was performed with a fellow Fellow: EMILE Arroyo have personally evaluated this patient on the day of service, and personally supervised the procedures as they were performed or performed any portion of the proceduresmyself. I have personally evaluated this patient on the day of service, and personally supervised the procedures as they were performed or performed any portion of the procedures myself. Pre Procedure Details: Informed consent was obtained. Risks and benefits were explained to the patient and they wish to proceed. We discussed risks (pain, bleeding, infection, CSF leak, positional headache, artery injury, paralysis, nerve injury, medication allergy, seizure, stroke and ), benefits (pain relief and increase in function and improvement of QoL), and process involved. [facility] Telephone encounter Note* Telephone Encounter - Suri Howard - 04/10/2022 12:39 PM EDT Patient called in requesting a second USGI with Dr. Govea. Wants to have sx with [facility] later this year for replacement. Current has an appointment with Dr. Govea scheduled 04/29. [facility]08-03-2022 Instructions* Patient Instructions* Cira Molina RN - 04/10/2022 11:18 AM EDT Images from the original note were not included. HOME CARE INSTRUCTIONS These instructions will help you care for yourself, or be cared for when you return home today. MEDICINES: You may take any NON-ASPRIN over the counter medicine for pain as it is directed. You may take all your usual medicines, including pain medicines. Re-Start your blood thinners tomorrow, and hold them as you were instructed before by your Physician. SITE CARE: Remove any band-aid from the injection site after six (6) hours. For Comfort you may apply ice packs to the site for the FIRST forty eight (48) hours, but for only ten (10) to fifteen (15) minutes at a time. After forty eight (48) hours, use a warm heating pad to the site, for only ten (10) to fifteen (15)minutes at a time. Be sure to NEVER place an Ice Pack or Heating Pad directly on the skin. Always wrap them in a lighttowel or cloth to protect the skin from freezing or burning ACTIVITY: Rest, and limit your activity for the remainder of the day. Tomorrow, you may return to work or school. If you have weakness or numbness anywhere caused by the injection, limit your activity until sensation returns to normal. You may Shower after 24 hours of your injection. Do Not soak in a bath tub, Hot tub, or go swimming for 5 days. DIET: Drink at least six (6) to eight (8) cups of Fluid and eat your normal diet today. WHAT TO EXPECT AFTER THE INJECTION: Some soreness and bruising at the injection sites. CALL THE [facility] AT [phone] FOR: Any severe headache that develops in the next forty eight (48) hours. Any unusual increase in your level of pain. Any unexpected swelling, weakness, skin rash, itching or fever. If it is after hours or on a weekend, call your family doctor or visit the nearest emergency room. FOLLOW UP At your next appointment, be sure to be ready to tell the doctor: When you felt relief from the pain. The level of relief you felt. If your pain got worse, and if so, how much worse. If you have any problems, or questions. Please call the [facility] nurse at [phone]. Talk to your doctor or others on your health care team, if you have questions. You may request morewritten information from the [employer] for [employer] at or e-mail: [email or web address] Bupivacaine/Lidocaine (Injection) Bupivacaine ([id number]), Lidocaine ([id number]) Causes numbness! Brand Name(s): There may be other brand names for this medicine. When This Medicine Should Not Be Used: You should not receive this medicine if you have had an allergic reaction to bupivacaine, lidocaine, or certain other types of local anesthetic (numbing medicine). You should not receive this medicine if you have certain heart rhythm problems such as Fehnm-Ougoqqvcg-Gdsst syndrome, Matthews-Choe syndrome, or severe heart block, unless you have a pacemaker. How to Use This Medicine: Drugs and Foods to Avoid: Ask your doctor or pharmacist before using any other medicine, including poxu-rqh-vibcshl medicines, vitamins, and herbal products. Make sure your doctor knows if you are taking heart or blood pressure medicine such as digoxin (Lanoxin ), atenolol (Tenormin ), propranolol (Inderal ), or metoprolol (Lopressor ). Make sure your doctor knows about any other medicine you have used recently. Warnings While Using This Medicine: Make sure your doctor knows if you are or breast feeding. You may need to stop breast feeding for a short time after receiving this medicine. Make sure your doctor knows if you have high blood pressure, low blood pressure, or other circulation problems. Tell your doctor if you have heart problems, such as congestive heart failure or heart rhythm problems. Make sure your doctor knows if you have liver disease, or any other health problemsor drug allergies. Possible Side Effects While Using This Medicine: Call your doctor right away if you notice any of these side effects: Allergic reaction: Itching or hives, swelling in your face or hands, swelling or tingling in your mouth or throat, chest tightness, trouble breathing Dizziness, drowsiness, confusion (trouble thinking), seizures (convulsions), or fainting. Nausea or vomiting. Loss of feeling or movement to your eye that lasts longer than your doctor told you to expect. Loss of feeling or movement that happens somewhere else in your body other than the area that was numbed for treatment. Restlessness, anxiety. Ringing in the ears. Sudden or severe headache, or problems with vision, speech, or walking. Tremors, shaking, or chills. Trouble urinating, or new problems controlling when you urinate or have a bowel movement. Uneven, pounding, fast, or slow heartbeats. If you notice other side effects that you think are caused by this medicine, tell your doctor. Call your doctor for medical advice about side effects. You may report side effects to FDA at 7-366-FNY-9450 [facility] [address], [address] [place] [address] Patient:Meir Landrum Procedure: Medial Branch Nerve Blocks Provider: Teresita Rawls MD PAIN DIARY of (site) bilateral lower back Please note your pain score (0-10) every HOUR for the next 6-8 hours. Bring this to your next appointment to review with your provider. TIME: Pain Score Pre: 10 Post: 12pm /10 1pm /10 2pm /10 3pm /10 4pm /10 5pm /10 6pm /10 7pm /10 8pm /10 /10 Common Questions about Radiofrequency Ablation Radiofrequency ablation (or RFA) is a procedure used to reduce pain. An electrical current producedby a radio wave is used to heat up a small area of nerve tissue, thereby decreasing pain signals from that specific area. Which Conditions Are Treated With Radiofrequency Ablation? RFA can be used to help patients with chronic (long-lasting) low-back and neck pain and pain related to the degeneration of joints from arthritis. How Long Does Pain Relief from Radiofrequency Ablation Last? The degree of pain relief varies, depending on the cause and location of the pain. Pain relief fromRFA can last from six to 12 months and in some cases, relief can last for years. More than 70% of patients treated with RFA experience pain relief. Is Radiofrequency Ablation Safe? RFA has proven to be a safe and effective way to treat some forms of pain. It also is generally well-tolerated, with very few associated complications. There is a slight risk of infection and bleeding at the insertion site. Your doctor can advise you about your particular risk. Will the radiofrequency ablation hurt? Layers of muscle and soft tissues protect nerves. The procedure involves inserting an introducer needle or needles through skin and those layers of muscle and soft tissues, so there is some pain involved. However, we numb the skin and deeper tissues with a local anesthetic using a very thin needle before inserting the introducer needle or needles. Will I be "put out" for a radiofrequency ablation? No. This procedure is done under local anesthesia. How long will the effects of the radiofrequency ablation last? If successful, the effects of the radiofrequency ablation can last from 3-18 months, with a typicalrange of 6-9 months. How many radiofrequency ablations do I need to have? If the first procedure does not completely relieve your symptoms, you may be recommended to have a repeat or touch-up procedure after the first two to three weeks. Because these are not permanent procedures, they may need to be repeated when the effect wears off. Will the radiofrequency ablation help me? It is sometimes difficult to predict if the radiofrequency ablation will indeed help you or not. Generally speaking, the patients who have responded well to trial blocks will have better results thanthose who responded less well from diagnostic or trial injections. What are the risks and side effects of radiofrequency ablation? Generally speaking, this procedure is safe. However, with any procedure there are risks, side effects and the possibility of complications. The risks and complications are dependent upon the sites that are ablated. Since the introducer needles have to go through skin and soft tissues, there will usually be some soreness and occasionally bruising. The nerves to be ablated may be near blood vesselsor other nerves that can be potentially damaged. Electricity is also used during the procedure raising the possibility of an electrical burn. Great care is taken when placing the radiofrequency needles and using the electrical current, but sometimes complications occur. Fortunately, serious complications or side effects are uncommon. Who should not have a radiofrequency ablation? Patients on a blood thinning medication, patients with an active infection going on, or patients with poorly controlled diabetes or heart disease should not have the procedure or at least consider postponing it if postponing would improve your overall medical condition. Of course, patients who havenot responded to trial blocks or diagnostic injections would be unlikely to benefit from radiofrequency ablation. What Are the Side Effects of Radiofrequency Ablation? The main side effect of RFA is some discomfort, including swelling and bruising at the site of the treatment, but this generally goes away after a few days. How Do I Prepare for Radiofrequency Ablation? To prepare for radiofrequency ablation treatment, you should take a few precautions, Including: You may have clear liquids and light meal until two hours before the procedure. If you have diabetes and use insulin, you must adjust the dosage of insulin the day of the procedure. Your primary care doctor will help you with this adjustment. Bring your diabetes medication with you so you can take it after the procedure. Continue to take all other medications with a small sip of water. Bring all medication with you so you can take it after the procedure. Please note: Do not discontinue any medication without first consulting with your primary or referring doctor. What Happens Before Radiofrequency Ablation? You will meet with a doctor for an evaluation. If radiofrequency ablation is recommended, a doctor will explain the procedure in detail, including possible complications and side effects. The doctor will also answer any questions you may have. Ask your doctor about specifics beforehand. What Happens During Radiofrequency Ablation? After the local anesthesia (you will be awake but will not feel any pain) has been given, the doctor will insert a small needle into the general area where you are experiencing pain. Using X-ray, your doctor will guide the needle to the exact target area. A microelectrode is then inserted through the needle to begin the stimulation process. During the procedure, your doctor will ask if you are able to feel a tingling sensation. The objectof the stimulation process is to help the doctor determine if the electrode is in the optimal area for treatment. Once the needle and electrode placement are verified, a small radiofrequency current is sent through the electrode into the surrounding tissue, causing the tissue to heat. You should not feel discomfort during the heating portion of the procedure. What should I expect after the radiofrequency ablation? Initially there will be muscle soreness for up to a week afterward. Ice packs will usually control this discomfort. After that first several days, your pain may be gone or quite less. Following radiofrequency ablation: A nurse will check your blood pressure and pulse. A bandage will be placed over the injection site. The nurse will review your discharge instructions with you. Someone must drive you home. We advise the patients to take it easy for a day or so after the procedure. You will be encouraged to apply ice to the affected area. Otherwise, you can perform any activities that you can reasonablytolerate. Can I Resume My Normal Activities After Radiofrequency Ablation? You will have these restrictions immediately following radiofrequency ablation: Do not drive or operate machinery for at least 24 hours after the procedure. You may resume your normal diet. Do not engage in any strenuous activity for the first 24 hours after the procedure. Do not take a bath, swim, or soak in water for 5 days after the procedure; and you may only shower after 24 hours. You may remove any bandages in the evening before going to bed. Can I go to work to work the next day? You should be able to return to work the next day. For some patients, soreness at the injection site or sites may cause you to be off work for several days. What Side Effects May I Have After Radiofrequency Ablation? You may experience the following effects after RFA: Leg numbness: If you have any leg numbness, walk only with assistance. This should only last a few hours and is due to the local anesthesia given during the procedure. Mild back discomfort: This may occur when the local anesthetic wears off and usually lasts two or three days. Apply ice to the area the day of the procedure and moist heat the day after the procedureif the discomfort persists. You may also use your usual pain medications. RFA Warning!!! If you feel severe pain at the injection site and notice swelling and redness, or increased leg weakness, have someone take you to the nearest emergency room or call 911. Tell the emergency room staff that you just had RFA. A doctor must evaluate you for bleeding and injection complications. Any Further Questions not explained please call [facility] at [phone], andask for a Nurse to speak with. documented in this encounterMad[facility]08-[facility]22 History and physical note* Teresita Rawls MD - 04/10/2022 11:00 AM EDT CC: low back pain HPI: Meir Landrum is a 66 y.o. male presenting with low back pain. Patient is here for plannedbilateral L2-L5 medial branch blocks. No anti-coagulation or steroid use, no open wounds, no recentinfections, no antibiotic use, and no recent dental procedures. PMH: Past Medical History: Diagnosis Date Arthritis Diverticulitis Hyperlipidemia VT (myocardial infarction) PSH: Past Surgical History: Procedure Laterality Date ARTHROPLASTY HIP TOTAL ANTERIOR APPROACH Right 07/02/2021 Laterality: Right; Surgeon: Amarjit Marroquin MD; Location: [facility] OR ASPIRATION OR INJECTION LARGE JOINT BURSA Left 07/02/2021 Laterality: Left; Surgeon: Amarjit Marroquin MD; Location: [facility] MA[facility] OR AORTIC STENT MENISCECTOMY Left SHOULDER ARTHROSCOPY Right Current medications: Current Outpatient Medications Medication Sig Dispense Refill acetaminophen 325 MG tablet Take 2 tablets by mouth every 6 hours as needed for Mild Pain. atorvastatin 10 MG tablet Take 5 mg by mouth every other day. ezetimibe 10 MG tablet Take 5 mg by mouth every other day. pantoprazole [address] tablet DR Take 20 mg by mouth daily. celecoxib (CeleBREX) 100 MG capsule Take 1 capsule by mouth 2 times daily. 60 capsule 1 clindamycin 150 MG capsule Take 150 mg by mouth 4 times daily. No current facility-administered medications for this visit. Allergy: Penicillins, Rosuvastatin, Simvastatin, Ciprofloxacin, Meloxicam, and Varenicline Family Hx: Family History Problem Relation Age of Onset Uterine Cancer Mother Heart Disease - Other Mother Heart Disease - Other Father Heart Disease - Other Maternal Uncle Myocardial Infarction Maternal Uncle Heart Disease - Other Maternal Grandfather Myocardial Infarction Maternal Grandfather Heart Disease - Other Paternal Grandfather Myocardial Infarction Paternal Grandfather Soc/Functional Hx: Social History Socioeconomic History Marital status: Single Spouse name: Not on file Number of children: Not on file Years of education: Not on file Highest education level: Not on file Occupational History Not on file Tobacco Use Smoking status: Former Smoker Packs/day: 1.00 Years: 40.00 Pack years: 40.00 Types: Cigarettes Quit date: 06/05/2021 Years since quittin.8 Smokeless tobacco: Never Used Vaping Use Vaping Use: Never used Substance and Sexual Activity Alcohol use: Yes Comment: Less than once a week Drug use: Never Sexual activity: Not on file Other Topics Concern Not on file Social History Narrative Not on file Social Determinants of Health Financial Resource Strain: Not on file Food Insecurity: Not on file Transportation Needs: Not on file Physical Activity: Not on file Stress: Not on file Social Connections: Not on file Intimate Partner Violence: Not on file Housing Stability: Not on file ROS (relevant): General/Constitutional: No fevers, night sweats, unintentional wt loss Eyes: No acute vision changes Respiratory: No dyspnea Cardio: No Chest pain GI: - bowel dysfunction : - bladder dysfunction MSK: - joint pain, swelling, changes Neuro: - weakness, - saddle anesthesia Heme: No easy bruising, bleeding Psych: No acute mood changes, SI or HI Skin: No new rashes Heme: No jaundice Physical Examination: BP (!) 140/97 Pulse 83 Temp 97.2 F (36.2 C) Ht 1.803 m (5' 11") Wt 93 kg (205 lb) BMI 28.59 kg/m Smoking Status Former Smoker BMI = Body mass index is 28.59 kg/m . General: pleasant, cooperative, NAD HEENT: EOMI. Tracking in room Heart: RRR. Lungs: Unlabored breathing Abd: soft, non-tender Ext: No pedal edema Skin: warm and dry. No dysesthesia/allodynia Heme: Non-jaundiced Lymph: No palpable lymph nodes MSK: grossly normal Neurological: Alert and oriented. CN II-XII intact LE MMT: moving all limbs spontaneously and at least anti-gravity throughout Tone: normal Diagnostic studies (reviewed with and explained to pt): Radiology results: None recent Lab Results Component Value Date CREATSERUM 0.96 07/03/2021 BUN 19 07/03/2021 SODIUM 132 (L) 07/03/2021 POTASSIUM 3.8 07/03/2021 CHLORIDE 102 07/03/2021 CO2 23 07/03/2021 No results found for: ALT, TRANSFERASEA, AST, GGT, GAMMAGT, ALKPHOS, BILITOTAL, BILIDIRECT Lab Results Component Value Date WBC 8.52 01/30/2022 HGB 15.3 01/30/2022 HCT 46.0 01/30/2022 PLATELET 231 01/30/2022 MCV 92.0 01/30/2022 Lab Results Component Value Date INR 1.1 06/08/2021 PT 13.5 06/08/2021 Lab Results Component Value Date SEDRATE 8 01/30/2022 Problem List: 1. Low back pain Assessment: 1. Lumbar spondylosis 2. Bilateral L2-L5 medial branch blocks Teresita Rawls MD Automatic [employer]acker- Clinical [facility] Department of Anesthesiology- Pain Medicine [facility]29[facility] History and physical note* Teresita Rawls MD - 03/06/2022 11:00 AM EDT CC: low back pain HPI: Meir Landrum is a 66 y.o. male presenting with low back pain. Patient is here for plannedbilateral L2-L5 medial branch blocks. No anti-coagulation or steroid use, no open wounds, no recentinfections, no antibiotic use, and no recent dental procedures. PMH: Past Medical History: Diagnosis Date Arthritis Diverticulitis Hyperlipidemia VT (myocardial infarction) PSH: Past Surgical History: Procedure Laterality Date ARTHROPLASTY HIP TOTAL ANTERIOR APPROACH Right 07/02/2021 Laterality: Right; Surgeon: Amarjit Marroquin MD; Location: [facility] OR ASPIRATION OR INJECTION LARGE JOINT BURSA Left 07/02/2021 Laterality: Left; Surgeon: Amarjit Marroquin MD; Location: [facility] MAIN OR AORTIC STENT MENISCECTOMY Left SHOULDER ARTHROSCOPY Right Current medications: Current Outpatient Medications Medication Sig Dispense Refill acetaminophen 325 MG tablet Take 2 tablets by mouth every 6 hours as needed for Mild Pain. atorvastatin 10 MG tablet Take 5 mg by mouth every other day. celecoxib (CeleBREX) 100 MG capsule Take 1 capsule by mouth 2 times daily. 60 capsule 1 clindamycin 150 MG capsule Take 150 mg by mouth 4 times daily. ezetimibe 10 MG tablet Take 5 mg by mouth every other day. pantoprazole [address] tablet DR Take 20 mg by mouth daily. No current facility-administered medications for this visit. Allergy: Penicillins, Rosuvastatin, Simvastatin, Ciprofloxacin, Meloxicam, and Varenicline Family Hx: Family History Problem Relation Age of Onset Uterine Cancer Mother Heart Disease - Other Mother Heart Disease - Other Father Heart Disease - Other Maternal Uncle Myocardial Infarction Maternal Uncle Heart Disease - Other Maternal Grandfather Myocardial Infarction Maternal Grandfather Heart Disease - Other Paternal Grandfather Myocardial Infarction Paternal Grandfather Soc/Functional Hx: Social History Socioeconomic History Marital status: Single Spouse name: Not on file Number of children: Not on file Years of education: Not on file Highest education level: Not on file Occupational History Not on file Tobacco Use Smoking status: Former Smoker Packs/day: 1.00 Years: 40.00 Pack years: 40.00 Types: Cigarettes Quit date: 06/05/2021 Years since quittin.7 Smokeless tobacco: Never Used Vaping Use Vaping Use: Never used Substance and Sexual Activity Alcohol use: Yes Comment: Less than once a week Drug use: Never Sexual activity: Not on file Other Topics Concern Not on file Social History Narrative Not on file Social Determinants of Health Financial Resource Strain: Not on file Food Insecurity: Not on file Transportation Needs: Not on file Physical Activity: Not on file Stress: Not on file Social Connections: Not on file Intimate Partner Violence: Not on file Housing Stability: Not on file ROS (relevant): General/Constitutional: No fevers, night sweats, unintentional wt loss Eyes: No acute vision changes Respiratory: No dyspnea Cardio: No Chest pain GI: - bowel dysfunction : - bladder dysfunction MSK: - joint pain, swelling, changes Neuro: - weakness, - saddle anesthesia Heme: No easy bruising, bleeding Psych: No acute mood changes, SI or HI Skin: No new rashes Heme: No jaundice Physical Examination: BP (!) 146/93 Pulse 78 Temp 97.5 F (36.4 C) (Infrared) Ht 1.803 m (5' 11") Wt 95.3 kg (210 lb) BMI 29.29 kg/m Smoking Status Former Smoker BMI = Body mass index is 29.29 kg/m . General: pleasant, cooperative, NAD HEENT: EOMI. Tracking in room Heart: RRR. Lungs: Unlabored breathing Abd: soft, non-tender Ext: No pedal edema Skin: warm and dry. No dysesthesia/allodynia Heme: Non-jaundiced Lymph: No palpable lymph nodes MSK: grossly normal Neurological: Alert and oriented. CN II-XII intact LE MMT: moving all limbs spontaneously and at least anti-gravity throughout Tone: normal Diagnostic studies (reviewed with and explained to pt): Radiology results: None recent Lab Results Component Value Date CREATSERUM 0.96 07/03/2021 BUN 19 07/03/2021 SODIUM 132 (L) 07/03/2021 POTASSIUM 3.8 07/03/2021 CHLORIDE 102 07/03/2021 CO2 23 07/03/2021 No results found for: ALT, TRANSFERASEA, AST, GGT, GAMMAGT, ALKPHOS, BILITOTAL, BILIDIRECT Lab Results Component Value Date WBC 8.52 01/30/2022 HGB 15.3 01/30/2022 HCT 46.0 01/30/2022 PLATELET 231 01/30/2022 MCV 92.0 01/30/2022 Lab Results Component Value Date INR 1.1 06/08/2021 PT 13.5 06/08/2021 Lab Results Component Value Date SEDRATE 8 01/30/2022 Problem List: 1. Low back pain Assessment: 1. Lumbar spondylosis 2. Bilateral L2-L5 medial branch blocks Teresita Rawls MD Automatic Stacker- Clinical [facility] Department of Anesthesiology- Pain Medicine documented in this encounterMadison Health06-29-2022 History of Present illness Narrative* Teresita Rawls MD - 03/06/2022 11:00 AM EDT Associated Order(s): SPINAL INJECTION: L3, L4, L5, L2, L3, L4, L5, L2 Post-Procedure Diagnose(s): Spondylosis 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 or radiculopathy SPINAL INJECTION: L3, L4, L5, L2, L3, L4, L5, L2 Date/Time: 03/06/2022 11:00 AM Performed by: Teresita Rawls MD Authorized by: Teresita Rawls MD Procedure Details: Procedure performed: medial branch block After informed consent was obtained, the patient was escorted back to the procedure room and placedin the prone position on the procedure table. Verbal verification and time-out was performed and all present were in agreement. Vital sign monitoring was initiated. The patient was sterilely prepped and draped in usual fashion with Chloraprep gluconate 4% antiseptic solution. Procedure guidance: fluoroscopy The fluoroscope was brought into the field and a PA image was obtained to identify the appropriate vertebral body. The anterior and posterior aspects of the superior endplate of the vertebral body were superimposed upon one another. The fluoroscope was then rotated in an oblique angle toward the right and left such that the superior articulating process was positioned midway between the anterior and posterior aspects of the vertebral body superior endplate. A point on the skin overlying the proposed site of needle entry was marked. A 25 G 3.5 inch spinal needle was advanced to the medial branch nerve L5 dorsal ramus area. Needle depth was periodically evaluated using fluoroscopic imaging. Correct final needle position was confirmed with anteroposterior, lateral and ipsilateral oblique fluoroscopic imaging. Medication Verification: I have personally verified and performed the final check of the medication(s) used in this procedure prior to administration. The following items were included during the verification process for medication(s) administered: drug name, strength, volume, expiration, physical integrity and appearance of the medication(s). A solution of 0.5 mL bupivacaine (PF) 0.5 % was divided equally among the affected levels and injected. After completion of the injection, the needle was flushed and removed. The above listed procedure was done for: Left L3, L4, L5 and L2 Right L3, L4, L5 and L2 Post Procedure Details: Complications: none The procedure was tolerated well. The patient was transported to the recovery room where they were observed for at least 20 minutes prior to discharge. The patient was discharged to home. They were advised to contact the office with any questions or concerns. Comments: 0.5ml 0.5% bupivicaine given per level Pre-Procedure Details The procedure was performed with a fellow Fellow: Binh Grewal MDI have personally evaluated this patient on the day of service, and personally supervised the procedures as they were performed or performed any portion of the procedures myself. I have personally evaluated this patient on the day of service, and personally supervised the procedures as they were performed or performed any portion of the procedures myself. Pre Procedure Details: Informed consent was obtained. Risks and benefits were explained to the patient and they wish to proceed. We discussed risks (pain, bleeding, infection, CSF leak, positional headache, artery injury, paralysis, nerve injury, medication allergy, seizure, stroke and ), benefits (pain relief and increase in function and improvement of QoL), and process involved. [facility] Instructions* Patient Instructions* Cira Molina RN - 03/06/2022 11:09 AM EDT Images from the original note were not included. HOME CARE INSTRUCTIONS These instructions will help you care for yourself, or be cared for when you return home today. MEDICINES: You may take any NON-ASPRIN over the counter medicine for pain as it is directed. You may take all your usual medicines, including pain medicines. Re-Start your blood thinners tomorrow, and hold them as you were instructed before by your Physician. SITE CARE: Remove any band-aid from the injection site after six (6) hours. For Comfort you may apply ice packs to the site for the FIRST forty eight (48) hours, but for only ten (10) to fifteen (15) minutes at a time. After forty eight (48) hours, use a warm heating pad to the site, for only ten (10) to fifteen (15)minutes at a time. Be sure to NEVER place an Ice Pack or Heating Pad directly on the skin. Always wrap them in a lighttowel or cloth to protect the skin from freezing or burning ACTIVITY: Rest, and limit your activity for the remainder of the day. Tomorrow, you may return to work or school. If you have weakness or numbness anywhere caused by the injection, limit your activity until sensation returns to normal. You may Shower after 24 hours of your injection. Do Not soak in a bath tub, Hot tub, or go swimming for 5 days. DIET: Drink at least six (6) to eight (8) cups of Fluid and eat your normal diet today. WHAT TO EXPECT AFTER THE INJECTION: Some soreness and bruising at the injection sites. CALL THE SPINE CENTER AT [phone] FOR: Any severe headache that develops in the next forty eight (48) hours. Any unusual increase in your level of pain. Any unexpected swelling, weakness, skin rash, itching or fever. If it is after hours or on a weekend, call your family doctor or visit the nearest emergency room. FOLLOW UP At your next appointment, be sure to be ready to tell the doctor: When you felt relief from the pain. The level of relief you felt. If your pain got worse, and if so, how much worse. If you have any problems, or questions. Please call the Spine Center nurse at [phone]. Talk to your doctor or others on your health care team, if you have questions. You may request morewritten information from the [employer] for Health Information at or e-mail: [email or web address] Bupivacaine/Lidocaine (Injection) Bupivacaine ([id number]), Lidocaine ([id number]) Causes numbness! Brand Name(s): There may be other brand names for this medicine. When This Medicine Should Not Be Used: You should not receive this medicine if you have had an allergic reaction to bupivacaine, lidocaine, or certain other types of local anesthetic (numbing medicine). You should not receive this medicine if you have certain heart rhythm problems such as Wvmnv-Lbjxwheub-Akltx syndrome, Matthews-Choe syndrome, or severe heart block, unless you have a pacemaker. How to Use This Medicine: Drugs and Foods to Avoid: Ask your doctor or pharmacist before using any other medicine, including [id number]-ulo-nyzkbkd medicines, vitamins, and herbal products. Make sure your doctor knows if you are taking heart or blood pressure medicine such as digoxin (Lanoxin ), atenolol (Tenormin ), propranolol (Inderal ), or metoprolol (Lopressor ). Make sure your doctor knows about any other medicine you have used recently. Warnings While Using This Medicine: Make sure your doctor knows if you are or breast feeding. You may need to stop breast feeding for a short time after receiving this medicine. Make sure your doctor knows if you have high blood pressure, low blood pressure, or other circulation problems. Tell your doctor if you have heart problems, such as congestive heart failure or heart rhythm problems. Make sure your doctor knows if you have liver disease, or any other health problemsor drug allergies. Possible Side Effects While Using This Medicine: Call your doctor right away if you notice any of these side effects: Allergic reaction: Itching or hives, swelling in your face or hands, swelling or tingling in your mouth or throat, chest tightness, trouble breathing Dizziness, drowsiness, confusion (trouble thinking), seizures (convulsions), or fainting. Nausea or vomiting. Loss of feeling or movement to your eye that lasts longer than your doctor told you to expect. Loss of feeling or movement that happens somewhere else in your body other than the area that was numbed for treatment. Restlessness, anxiety. Ringing in the ears. Sudden or severe headache, or problems with vision, speech, or walking. Tremors, shaking, or chills. Trouble urinating, or new problems controlling when you urinate or have a bowel movement. Uneven, pounding, fast, or slow heartbeats. If you notice other side effects that you think are caused by this medicine, tell your doctor. Call your doctor for medical advice about side effects. You may report side effects to FDA at 0-428-MVQ-9939 [facility] [address], [address] [place] [address] Patient:Meir Richard Landrum Procedure: Medial Branch Nerve Blocks Provider: Teresita Rawls MD PAIN DIARY of bilateral lower back Please note your pain score (0-10) every HOUR for the next 6-8 hours. Bring this to your next appointment to review with your provider. TIME: Pain Score Pre: 10 Post: 12pm /10 1pm /10 2pm /10 3pm /10 4pm /10 5pm /10 6pm /10 7pm /10 8pm /10 /10 Common Questions about Radiofrequency Ablation Radiofrequency ablation (or RFA) is a procedure used to reduce pain. An electrical current producedby a radio wave is used to heat up a small area of nerve tissue, thereby decreasing pain signals from that specific area. Which Conditions Are Treated With Radiofrequency Ablation? RFA can be used to help patients with chronic (long-lasting) low-back and neck pain and pain related to the degeneration of joints from arthritis. How Long Does Pain Relief from Radiofrequency Ablation Last? The degree of pain relief varies, depending on the cause and location of the pain. Pain relief fromRFA can last from six to 12 months and in some cases, relief can last for years. More than 70% of patients treated with RFA experience pain relief. Is Radiofrequency Ablation Safe? RFA has proven to be a safe and effective way to treat some forms of pain. It also is generally well-tolerated, with very few associated complications. There is a slight risk of infection and bleeding at the insertion site. Your doctor can advise you about your particular risk. Will the radiofrequency ablation hurt? Layers of muscle and soft tissues protect nerves. The procedure involves inserting an introducer needle or needles through skin and those layers of muscle and soft tissues, so there is some pain involved. However, we numb the skin and deeper tissues with a local anesthetic using a very thin needle before inserting the introducer needle or needles. Will I be "put out" for a radiofrequency ablation? No. This procedure is done under local anesthesia. How long will the effects of the radiofrequency ablation last? If successful, the effects of the radiofrequency ablation can last from 3-18 months, with a typicalrange of 6-9 months. How many radiofrequency ablations do I need to have? If the first procedure does not completely relieve your symptoms, you may be recommended to have a repeat or touch-up procedure after the first two to three weeks. Because these are not permanent procedures, they may need to be repeated when the effect wears off. Will the radiofrequency ablation help me? It is sometimes difficult to predict if the radiofrequency ablation will indeed help you or not. Generally speaking, the patients who have responded well to trial blocks will have better results thanthose who responded less well from diagnostic or trial injections. What are the risks and side effects of radiofrequency ablation? Generally speaking, this procedure is safe. However, with any procedure there are risks, side effects and the possibility of complications. The risks and complications are dependent upon the sites that are ablated. Since the introducer needles have to go through skin and soft tissues, there will usually be some soreness and occasionally bruising. The nerves to be ablated may be near blood vesselsor other nerves that can be potentially damaged. Electricity is also used during the procedure raising the possibility of an electrical burn. Great care is taken when placing the radiofrequency needles and using the electrical current, but sometimes complications occur. Fortunately, serious complications or side effects are uncommon. Who should not have a radiofrequency ablation? Patients on a blood thinning medication, patients with an active infection going on, or patients with poorly controlled diabetes or heart disease should not have the procedure or at least consider postponing it if postponing would improve your overall medical condition. Of course, patients who havenot responded to trial blocks or diagnostic injections would be unlikely to benefit from radiofrequency ablation. What Are the Side Effects of Radiofrequency Ablation? The main side effect of RFA is some discomfort, including swelling and bruising at the site of the treatment, but this generally goes away after a few days. How Do I Prepare for Radiofrequency Ablation? To prepare for radiofrequency ablation treatment, you should take a few precautions, Including: You may have clear liquids and light meal until two hours before the procedure. If you have diabetes and use insulin, you must adjust the dosage of insulin the day of the procedure. Your primary care doctor will help you with this adjustment. Bring your diabetes medication with you so you can take it after the procedure. Continue to take all other medications with a small sip of water. Bring all medication with you so you can take it after the procedure. Please note: Do not discontinue any medication without first consulting with your primary or referring doctor. What Happens Before Radiofrequency Ablation? You will meet with a doctor for an evaluation. If radiofrequency ablation is recommended, a doctor will explain the procedure in detail, including possible complications and side effects. The doctor will also answer any questions you may have. Ask your doctor about specifics beforehand. What Happens During Radiofrequency Ablation? After the local anesthesia (you will be awake but will not feel any pain) has been given, the doctor will insert a small needle into the general area where you are experiencing pain. Using X-ray, your doctor will guide the needle to the exact target area. A microelectrode is then inserted through the needle to begin the stimulation process. During the procedure, your doctor will ask if you are able to feel a tingling sensation. The objectof the stimulation process is to help the doctor determine if the electrode is in the optimal area for treatment. Once the needle and electrode placement are verified, a small radiofrequency current is sent through the electrode into the surrounding tissue, causing the tissue to heat. You should not feel discomfort during the heating portion of the procedure. What should I expect after the radiofrequency ablation? Initially there will be muscle soreness for up to a week afterward. Ice packs will usually control this discomfort. After that first several days, your pain may be gone or quite less. Following radiofrequency ablation: A nurse will check your blood pressure and pulse. A bandage will be placed over the injection site. The nurse will review your discharge instructions with you. Someone must drive you home. We advise the patients to take it easy for a day or so after the procedure. You will be encouraged to apply ice to the affected area. Otherwise, you can perform any activities that you can reasonablytolerate. Can I Resume My Normal Activities After Radiofrequency Ablation? You will have these restrictions immediately following radiofrequency ablation: Do not drive or operate machinery for at least 24 hours after the procedure. You may resume your normal diet. Do not engage in any strenuous activity for the first 24 hours after the procedure. Do not take a bath, swim, or soak in water for 5 days after the procedure; and you may only shower after 24 hours. You may remove any bandages in the evening before going to bed. Can I go to work to work the next day? You should be able to return to work the next day. For some patients, soreness at the injection site or sites may cause you to be off work for several days. What Side Effects May I Have After Radiofrequency Ablation? You may experience the following effects after RFA: Leg numbness: If you have any leg numbness, walk only with assistance. This should only last a few hours and is due to the local anesthesia given during the procedure. Mild back discomfort: This may occur when the local anesthetic wears off and usually lasts two or three days. Apply ice to the area the day of the procedure and moist heat the day after the procedureif the discomfort persists. You may also use your usual pain medications. RFA Warning!!! If you feel severe pain at the injection site and notice swelling and redness, or increased leg weakness, have someone take you to the nearest emergency room or call 911. Tell the emergency room staff that you just had RFA. A doctor must evaluate you for bleeding and injection complications. Any Further Questions not explained please call [facility] at [phone], andask for a Nurse to speak with. documented in this encounterMad[facility]06-29-2022 History and physical note* Teresita Rawls MD - 03/06/2022 11:00 AM EDT CC: low back pain HPI: Meir Landrum is a 66 y.o. male presenting with low back pain. Patient is here for plannedbilateral L2-L5 medial branch blocks. No anti-coagulation or steroid use, no open wounds, no recentinfections, no antibiotic use, and no recent dental procedures. PMH: Past Medical History: Diagnosis Date Arthritis Diverticulitis Hyperlipidemia VT (myocardial infarction) PSH: Past Surgical History: Procedure Laterality Date ARTHROPLASTY HIP TOTAL ANTERIOR APPROACH Right 07/02/2021 Laterality: Right; Surgeon: Amarjit Marroquin MD; Location: [facility] MAIN OR ASPIRATION OR INJECTION LARGE JOINT BURSA Left 07/02/2021 Laterality: Left; Surgeon: Amarjit Marroquin MD; Location: [facility] MAIN OR AORTIC STENT MENISCECTOMY Left SHOULDER ARTHROSCOPY Right Current medications: Current Outpatient Medications Medication Sig Dispense Refill acetaminophen 325 MG tablet Take 2 tablets by mouth every 6 hours as needed for Mild Pain. atorvastatin 10 MG tablet Take 5 mg by mouth every other day. celecoxib (CeleBREX) 100 MG capsule Take 1 capsule by mouth 2 times daily. 60 capsule 1 clindamycin 150 MG capsule Take 150 mg by mouth 4 times daily. ezetimibe 10 MG tablet Take 5 mg by mouth every other day. pantoprazole [address] tablet DR Take 20 mg by mouth daily. No current facility-administered medications for this visit. Allergy: Penicillins, Rosuvastatin, Simvastatin, Ciprofloxacin, Meloxicam, and Varenicline Family Hx: Family History Problem Relation Age of Onset Uterine Cancer Mother Heart Disease - Other Mother Heart Disease - Other Father Heart Disease - Other Maternal Uncle Myocardial Infarction Maternal Uncle Heart Disease - Other Maternal Grandfather Myocardial Infarction Maternal Grandfather Heart Disease - Other Paternal Grandfather Myocardial Infarction Paternal Grandfather Soc/Functional Hx: Social History Socioeconomic History Marital status: Single Spouse name: Not on file Number of children: Not on file Years of education: Not on file Highest education level: Not on file Occupational History Not on file Tobacco Use Smoking status: Former Smoker Packs/day: 1.00 Years: 40.00 Pack years: 40.00 Types: Cigarettes Quit date: 06/05/2021 Years since quittin.7 Smokeless tobacco: Never Used Vaping Use Vaping Use: Never used Substance and Sexual Activity Alcohol use: Yes Comment: Less than once a week Drug use: Never Sexual activity: Not on file Other Topics Concern Not on file Social History Narrative Not on file Social Determinants of Health Financial Resource Strain: Not on file Food Insecurity: Not on file Transportation Needs: Not on file Physical Activity: Not on file Stress: Not on file Social Connections: Not on file Intimate Partner Violence: Not on file Housing Stability: Not on file ROS (relevant): General/Constitutional: No fevers, night sweats, unintentional wt loss Eyes: No acute vision changes Respiratory: No dyspnea Cardio: No Chest pain GI: - bowel dysfunction : - bladder dysfunction MSK: - joint pain, swelling, changes Neuro: - weakness, - saddle anesthesia Heme: No easy bruising, bleeding Psych: No acute mood changes, SI or HI Skin: No new rashes Heme: No jaundice Physical Examination: BP (!) 146/93 Pulse 78 Temp 97.5 F (36.4 C) (Infrared) Ht 1.803 m (5' 11") Wt 95.3 kg (210 lb) BMI 29.29 kg/m Smoking Status Former Smoker BMI = Body mass index is 29.29 kg/m . General: pleasant, cooperative, NAD HEENT: EOMI. Tracking in room Heart: RRR. Lungs: Unlabored breathing Abd: soft, non-tender Ext: No pedal edema Skin: warm and dry. No dysesthesia/allodynia Heme: Non-jaundiced Lymph: No palpable lymph nodes MSK: grossly normal Neurological: Alert and oriented. CN II-XII intact LE MMT: moving all limbs spontaneously and at least anti-gravity throughout Tone: normal Diagnostic studies (reviewed with and explained to pt): Radiology results: None recent Lab Results Component Value Date CREATSERUM 0.96 07/03/2021 BUN 19 07/03/2021 SODIUM 132 (L) 07/03/2021 POTASSIUM 3.8 07/03/2021 CHLORIDE 102 07/03/2021 CO2 23 07/03/2021 No results found for: ALT, TRANSFERASEA, AST, GGT, GAMMAGT, ALKPHOS, BILITOTAL, BILIDIRECT Lab Results Component Value Date WBC 8.52 01/30/2022 HGB 15.3 01/30/2022 HCT 46.0 01/30/2022 PLATELET 231 01/30/2022 MCV 92.0 01/30/2022 Lab Results Component Value Date INR 1.1 06/08/2021 PT 13.5 06/08/2021 Lab Results Component Value Date SEDRATE 8 01/30/2022 Problem List: 1. Low back pain Assessment: 1. Lumbar spondylosis 2. Bilateral L2-L5 medial branch blocks Teresita Rawls MD [employer]- Clinical [facility] Department of Anesthesiology- Pain Medicine [facility] History of Present illness Narrative* Jen Mac PA-C - 01/30/2022 2:30 PM EDT Chief Complaint Patient presents with Right Hip - Follow-up Pt presents today 7 months s/p R AGUSTIN 06/09/21. C/o mild incisional swelling and IT band soreness/tightness x 1 month, worsens when sitting, carrying a ladder, and crawling through an attic. Denies falls. Would like to make sure joint is in its proper place. HPI: 66 y.o. male status post right total hip arthroplasty approximately 7 months ago. He returns to clinic today with increase in discomfort over the last 3-4 weeks. He has been very active and noted some pain laterally and posteriorly along the thigh as well as swelling just proximal and posterior to incision. He denies any trauma or falls. He denies any fevers or chills. He did have recent toe nailinfection which he had toe nail removed and is on Cipro currently. He does have a history of back pain and is following with a provider/discussing injections at this time. He is able to walk without any pain. He notes that this pain is different than the pain he had preoperatively and does not believe this pain is in his hip. He has been taking tylenol and aleve for pain. Physical exam: A./O. x3 in no apparent distress. No discernible limp. The incision is well healed without signs ofcomplication. Area of soft tissue swelling proximal and posterior to incision, not indurated, no fluctuance. The patient has flexion to 90 degrees with no pain. No pain with leg roll of hip. 5/5 hip abductor strength. The patient's neurovascular exam shows 5/5 strength in the EHL/tibialis anterior/gastroc of the right lower extremity. he has a palpable pulse in both the dorsalis pedis and posterior tibial artery of the operative extremity. The overall alignment of the extremity is neutral. Negative Vance sign. Tender to palpation overlying right greater trochanter. X-ray interpretation:Stable right AGUSTIN hardware without evidence of loosening or acute osseous abnormality Assessment and plan: This is a 66 y.o. male status post right total hip arthroplasty with greater trochanter tendonitis. 1. IT band stretches, IT band massaging and Aleve use recommended for patient. I have asked patientto update our office via [employer] in 3-4 weeks with any improvement. He should contact our office prior to this if any changes/worsening of symptoms. 2. Due to insidious onset of pain, will obtain ESR, CRP and CBC for trending purposes. Discussed with patient that these may be elevated given his recent procedure/toe nail infection. If elevated, wewill trend. 3. Recommend follow up with established spine physician. Patient to call our office with questions or concerns. Jen Mac PA-C Department of Orthopaedics [facility] History of Present illness Narrative* Zaheer Govea MD - 01/08/2022 11:15 AM EDT Associated Order(s): LARGE JOINT/BURSA INJECTION AND/OR ASPIRATION: L glenohumeral Post-Procedure Diagnose(s): Arthritis of left glenohumeral joint LARGE JOINT/BURSA INJECTION AND/OR ASPIRATION: L glenohumeral Date/Time: 01/08/2022 11:15 AM Supporting Documentation Indications: pain Procedure Details: Location: shoulder - L glenohumeral Guidance: ultrasound Ultrasound probe size: 4 mHz curvilinear Images were saved electronically. Needle size: 21 G Approach: posterior Medication Verification: I have personally verified and performed the final check of the medication(s) used in this procedure prior to administration. The following items were included during the verification process for medication(s) administered: drug name, strength, volume, expiration, physical integrity and appearance of the medication(s). Medications administered: 1 mL triamcinolone 40 MG/ML; 4 mL ropivacaine 1 % Patient tolerance: patient tolerated the procedure well with no immediate complications Comments Comments The use of direct ultrasound visualization of the needle (rather than a non- guided injection) was required to increase patient safety by excluding inadvertent intramuscular or intratendinous placement and minimizing bleeding by avoiding osteochondral or vascular injury from the needle. Additionally, the increased accuracy of placement may increase clinical effectiveness and will allow higher diagnostic specificity when evaluating effectiveness of this injection. Using ultrasound, a pre-scan of the region was performed to identify the target structure. Left GH joint Pre-Procedure Details The attending physician was present for the entire procedure. Consent: Consent was obtained prior to the procedure after discussion of the risks, benefits and alternatives, and expected outcomes were discussed with the patient. The possibilities of reaction to medication, bleeding, infection, the need for additional procedures, failure to diagnosis a condition, and creating a complication requiring operation were discussed with the patient. The patient concurred with the proposed plan, giving consent. Preparation: Patient was prepped in the usual sterile fashion. The patient was prepped with Chloraprep. documented in this encounterOS[id number] Instructions* Patient Instructions* Zaheer Gvoea MD - 01/08/2022 10:47 AM EDT POST INJECTION INSTRUCTIONS You have been given a corticosteroid injection. The goal of this is to relieve pain through numbingeffects and reducing inflammation. The result and length of relief from the injection varies for everyone. Content: The injection consists of numbing agent Ropivacaine, in addition to a corticosteroid, Kenalog. Post Injection Care: Apply ice to the area that was injected for 20 minutes at a time, intermittently for the next 2 days. Please allow at least 1-2 hours between icing until the skin returns to normal temperature and color. Please refrain from strenuous activities for the next 3 days. This will help alleviate any discomfort from the injection and help prevent a post injection "flare-up". Possible Side Effects: Very few people may experience increased discomfort for a few days after the injection. This is typically called a post injection "flare-up. Other possible side effects include injection site tenderness, mild soreness, swelling, warmth or redness, infection (<1% chance associated with any procedure). If you experience the following symptoms, please call our office: -Fever over 100 degrees -Significantly increased redness or warmth -Excessive swelling -Drainage documented [facility] History of Present illness Narrative* Robin Mcguire MD - 01/08/2022 10:30 AM EDT Chief Complaint Patient presents with Left Shoulder - Condition Update f/u L shoulder CT results, wants to discuss surgical options-- Pt understands that he needs a replacement but wants it later this summer. SUBJECTIVE: Meir returns for follow up. Overall, the pain is same as before. Reports Adequate pain control without the need for medication. Here to review CT. Wants to put off surgery until fall PHYSICAL EXAMINATION: Affected shoulder skin intact/ nothing noted. There is tenderness at anterior joint line and posterior joint line ROM of the affected shoulder is 50 / 140 / Ls versus the contralateral shoulder 60 / 170 / Ls. Strength on the affected side 5/5 with ER, 5-/5 with FE and 5/5 with IR versus contralateral side normal. Neurovascular exam is intact. Radiographs: CT reveals severe glenohumeral arthritis IMPRESSION: Left shoulder glenohumeral arthritis PLAN I had a long discussion with the patient regarding his condition. At this point, his options are tolive with this and continue with conservative management, or consider a left shoulder replacement. Reviewed the CT scan for preoperative planning and does appear to be candidate for anatomic TSA. In a few cases there is a final determination intraoperatively after inspection of the rotator cuff a reverse would be necessary. We will be prepared for either We had a very long and thorough discussion today about his social situation, and the postoperative course. He would need to be in a sling for 6 weeks. He needs at least 3-4 months of formal therapy, starting in the hospital after surgery. I really need him to be compliant with his subscapularis precautions and with his physical therapy afterwards, or he will have a poor result. He understands that the risks include, but are not limited to, infection, nerve damage, bleeding, postoperative stiffness, the chance for periprostatic fracture, subscapularis repair failure, dislocation, loosening, the need for revision surgery, and a chance that he could be no better or even worse. He will do injection now and let us know how it goes and if he wants to schedule documented in this encounterOS[facility]04[facility]28[facility] History of Present illness Narrative* Teresita Rawls MD - 01/03/2022 11:40 AM EDT [facility] History of Present Illness: Meir Landrum is a 66 y.o. male with a history of diverticulitis, arthritis, HLD, CAD s/p stents 2009, R hip AGUSTIN presenting today for evaluation of his chief complaint: Lower back pain. External notes/medical records independently reviewed and pertinent information found was incorporated. Meir Landrum reports pain located in his lower back that started 15 years ago. Denies any known inciting event. He states that he has had a tight back for a long time but his lower back pain gotworse after he started a statin after his cardiac stents. He also states that he is unable to wear tight fitting pants or else his back will hurt worse. The pain does not radiate. There is no associated numbness or tingling. Reports no weakness. The percentage of axial to limb pain is 100% and 0%, respectively. He had been to PT- 8 sessions. Notes that he improved 30-40% with PT but still sore He has stopped doing exercises. Pain level is 2/10 today, pain increases to 6-8/10 with activity. Pain is worse with bending and twisting. Feels like "aching" and is constant in duration. Denies bowel dysfunction, bladder dysfunction or saddle anesthesia concerning for a cauda equina issue. Current medications for this issue: Aleve, tylenol Beneficial Treatments: chiropractor Non-Beneficial Treatments: n/a Treatments: --Physical therapy: has finished full course --Injections: n/a --Spine Surgery: n/a Review of Systems: All other systems negative or as above and below. 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 Surgical History: has a past surgical history that includes meniscectomy (Left); shoulder arthroscopy (Right); aorticstent; arthroplasty hip total anterior approach (Right, 07/02/2021); and aspiration or injection large joint bursa (Left, 07/02/2021). Social History: reports that he quit smoking about 6 months ago. His smoking use included cigarettes. He has a 40.00 pack-year smoking history. He has never used smokeless tobacco. He reports current alcohol use. Hereports that he does not use drugs. Social History Substance and Sexual Activity Drug Use Never Social History Social History Narrative Not on file Family History: family history includes Heart Disease - Other in his father, maternal grandfather, maternal uncle, mother, and paternal grandfather; Myocardial Infarction in his maternal grandfather, maternal uncle,and paternal grandfather; Uterine Cancer in his mother. Current Medications: has a current medication list which includes the following prescription(s): acetaminophen 325 MG tablet, aspirin 325 MG tablet, atorvastatin 10 MG tablet, celecoxib (CeleBREX) 100 MG capsule, ezetimibe 10 MG tablet, pantoprazole [address] tablet DR, and clindamycin 150 MG capsule. Allergies: is allergic to penicillins, rosuvastatin, simvastatin, ciprofloxacin, meloxicam, and varenicline. PHYSICAL EXAMINATION Pulse 91 Temp 96.6 F (35.9 C) Ht 1.803 m (5' 11") Wt 95.3 kg (210 lb) SpO2 96% BMI 29.29 kg/m Smoking Status Former Smoker Body mass index is 29.29 kg/m . GENERAL: NAD, good eye contact, well appearing, responds appropriately. Obese/Overweight: no HEENT: Atraumatic, normocephalic. EOMI grossly intact to tracking examiner, sclerae anicteric. THORACIC/PULM: No visible chest wall deformities. No tachypnea, no accessory muscle use at rest. CARDIO & VASC: Regular rate and rhythm to peripheral pulse. Upper and lower limbs are warm, well perfused. No cyanosis, or edema. SKIN: Intact. No rashes, bruises, or ulcers over visible skin PSYCH: Affect appears normal, mood congruent. MUSCULOSKELETAL & NEURO: Observation: Visible Spine/Back Deformity: no Palpation: Tenderness to percussion of the spinous processes: no Tenderness to palpation of the lumbar paraspinal muscles in the low back: no Tenderness over either trochanteric bursa: yes (recent right hip replacement) Tenderness to palpation of the cervical paraspinal muscles: no Back ROM: Full ROM. Pain with extension and rotation Facet-loading (ext with rotation): + b/l Gait: Grossly Normal Labs/Imaging Reviewed: Labs and imaging personally reviewed. Relevant diagnostic studies were also reviewed with and explained to patient using their images, reports, diagrams, and/or models. XR L spine (08/28): FINDINGS: 5 images obtained. Vertebral: There are 5 typical lumbar spine vertebral bodies in anatomic alignment. Dextroscoliotic curvature of lumbar spine measures approximately 19 degrees. No compression deformity. No spondylolysis. No instability on flexion or extension. Disc: Multilevel degenerative disc disease, most severe at L5/S1. Severe disc height loss, vacuum phenomena and endplate sclerosis at L5/S1 is seen. Joint: Facet joints appear anatomically aligned. Lower lumbar facet arthrosis. Atheromatous calcifications. Previous total right hip arthroplasty. IMPRESSION IMPRESSION: Dextroscoliotic curvature. Multilevel degenerative disc disease, severe at L5/S1. Facet arthrosis. No instability on flexion or extension. Lab Results Component Value Date SODIUM 132 (L) 07/03/2021 POTASSIUM 3.8 07/03/2021 CHLORIDE 102 07/03/2021 CO2 23 07/03/2021 BUN 19 07/03/2021 CREATSERUM 0.96 07/03/2021 GLUCOSE 152 (H) 07/03/2021 Lab Results Component Value Date WBC 20.86 (H) 07/03/2021 HGB 13.5 07/03/2021 HCT 39.2 (L) 07/03/2021 PLATELET 244 07/03/2021 MCV 89.9 07/03/2021 Lab Results Component Value Date SEDRATE 2 06/08/2021 Lab Results Component Value Date CRP 3.31 06/08/2021 Patient Reported Outcome Measures: No flowsheet data found. ASSESSMENT AND PLAN ICD-10-CM 1. Spondylosis 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 or radiculopathy M47.816 SCHEDULE PROCEDURE 2. Lumbar facet arthropathy M47.816 3. DDD (degenerative disc disease), lumbar M51.36 Meir Landrum is a 66 y.o. male with a history of diverticulitis, arthritis, HLD, CAD s/p stents 2009, R hip AGUSTIN that presents for evaluation of chronic bilateral lower back pain. He has had thispain for 15+ years but feels that it has been getting worse over the last few months. No focal weakness or radicular symptoms. History and exam most consistent with lumbar facet pain. Did not improvewith PT. Will schedule for lumbar mbb. - B/l L2-L5 mbb x2. Risks and benefits discussed. Patient wishes to proceed. - consider RFA if mbb successful - continue HEP - NSAIDs and tylenol as needed - Patient was counseled on the importance of weight loss as a brown component of attaining and maintaining good spine health in the future. Recommend continuing to perform their usual activities of daily living and to avoid prolonged rest as a means for pain control. Patient to call or go to the ED if he has any bowel or bladder incontinence, worsening muscle weakness or worsening of his symptoms. The natural history and course of the symptomatology of his diagnosis was discussed in detail with the patient. Plan of care discussed. All questions answered. The patient verbalized understanding and agreed to the treatment plan formulated for this visit. Teresita Rawls MD [employer]- Clinical [facility] Department of Anesthesiology- Pain Medicine documented [facility] History of Present illness Narrative* Robin Mcguire MD - 12/11/2021 10:45 AM EDT Chief Complaint Patient presents with Left Shoulder - Pain HPI: This is the initial visit to me for this 66 y.o. right hand dominant patient who is here today for evaluation of left shoulder pain. The patient noticed the onset of left shoulder pain several years ago. The patient states that the pain started as a result of no injury. The pain is located over anterior and posterior shoulder and is deep. The pain radiates distally. Patient does have night pain. The pain is better with rest. The pain is worse with activity. Overall, the pain is severe. Mechanical symptoms are present. There is not a sense of instability. The patient does not have neurovascular complaints. Treatment to date: prior PT and years of injections with pain management most recently2 months prior. Patient has not had prior shoulder surgery . Past History Past medical, surgical, family, and social histories have been reviewed and updated with the patient today and are located elsewhere in the medical record. Past Medical History: Diagnosis Date Arthritis Diverticulitis Hyperlipidemia VT (myocardial infarction) Review of systems Pertinent items are noted in HPI, all other systems were queried and are negative.. PE: Physical examination does reveal a healthy appearing 66 y.o. year old patient in no acute distress. There is good skin turgor in bilateral upper extremities and lower extremities. There is has symmetric light touch sensation and motor function in bilateral upper extremities and lower extremities, and is neurovascularly intact including axillary, median, radial, and ulnar nerves. Examination of the left shoulder reveals: There is not atrophy of the supraspinatus muscle belly. There is not atrophy of the infraspinatus muscle belly. There is not atrophy of the deltoid. Spurling's maneuver is negative. There is not AC joint tenderness and pain with cross body adduction. There is tenderness of the long head of the biceps tendon. There is not tenderness of the sternoclavicular joint. Range of motion of the affected shoulder reveals: 130 degrees of passive forward elevation, 130 degrees of active forward elevation, 30 degrees of external rotation at 0 degrees of abduction, internal rotation to Lumbar. The contralateral shoulder has 160 degrees of passive forward elevation, 160 degrees of active forward elevation, 50 degrees of external rotation at 0 degrees of abduction, internal rotation to Lumbar. The patient has resisted manual muscle testing strength of 5-/5 supraspinatus, 5/5 infraspinatus, 5/5 subscapularis. There is not pain with Cruz impingement testing. There is not pain with Neer impingement testing. Radiographs: AP/OUTLET/AXILLARY/ACROMIOCLAVICULAR JOINT VIEWS were reviewed of the left shoulder. My independentviewing of the images revealed the following: There are arthritic changes of the glenohumeral joint- severe. There is not superior migration of the humeral head. The glenohumeral joint is reduced. Acromial morphology is type 2. There are arthritic changes of the acromioclavicular joint. There is not evidence of fracture. Assessment: 1. Left shoulder GH joint osteoarthritis Plan: I had a long discussion with the patient regarding his condition. At this point, his options are tolive with this and continue with conservative management, or consider a left shoulder replacement. I would obtain a CT scan for preoperative planning to evaluate the pattern of wear and the status ofthe rotator cuff to determine if anatomic or reverse shoulder arthroplasty would be required, unders tanding that in some cases there is a final determination intraoperatively after inspection of the rotator cuff. We will call her after the CT scan with results. We had a very long and thorough discussion today about his social situation, and the postoperative course. He would need to be in a sling for 6 weeks. He needs at least 3-4 months of formal therapy, starting in the hospital after surgery. I really need him to be compliant with his subscapularis precautions and with his physical therapy afterwards, or he will have a poor result. He understands that the risks include, but are not limited to, infection, nerve damage, bleeding, postoperative stiffness, the chance for periprostatic fracture, subscapularis repair failure, dislocation, loosening, the need for revision surgery, and a chance that he could be no better or even worse. He does understand and consent, and we will go forward and organize this, and get him set up in a timely fashion. documented in this encounterMad[facility] HealthEvaluation note* Diagnosis CAD (coronary artery disease)- Primary Coronary atherosclerosis of unspecified type of vessel, moapa or graft [facility] Diagnosis Arthritis of left glenohumeral joint- Primary Left shoulder pain, unspecified chronicity [facility]* Diagnosis Left shoulder pain, unspecified chronicity [facility]* Diagnosis Left shoulder pain, unspecified chronicity [facility]* Diagnosis Spondylosis 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 or radiculopathy- Primary Lumbosacral spondylosis without myelopathy Lumbar facet arthropathy Lumbosacral spondylosis without myelopathy DDD (degenerative disc disease), lumbar Degeneration of lumbar or lumbosacral intervertebral disc [facility]* Diagnosis Arthritis of left glenohumeral joint- Primary [facility]* Diagnosis Left shoulder pain, unspecified chronicity- Primary documented in this [facility] noteNo assessment information available [facility] Work Phone: Evaluation note* Diagnosis Status post right hip replacement- Primary Hip joint replacement by other means [facility]* Diagnosis Onset Date Resolution Status Bilateral edema of lower extremity acute Atherosclerotic heart diseas e of moapa coronary artery without angina pectoris chronic Essential hypertension chron ic Hyperlipidemia chronic Presence of stent in coronary artery May, chronic [facility] Work Phone: Evaluation note* Diagnosis Lumbar facet arthropathy- Primary Lumbosacral spondylosis without myelopathy Spondylosis 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 or radiculopathy Lumbosacral spondylosis without myelopathy [facility] Diagnosis Lumbar facet arthropathy Lumbosacral spondylosis without myelopathy [facility] Diagnosis Spondylosis 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 or radiculopathy- Primary Lumbosacral spondylosis without myelopathy [facility] Diagnosis Left shoulder pain, unspecified chronicity- Primary [facility] Diagnosis Left shoulder pain, unspecified chronicity- Primary [facility] Diagnosis Right hip pain- Primary Pain in joint, pelvic region and thigh [facility] Diagnosis Primary osteoarthritis of right hip Primary localized osteoarthrosis, pelvic region and thigh Elective surgery Unspecified elective surgery for purposes other than remedying health states [facility] Diagnosis Spondylosis 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 or radiculopathy- Primary Lumbosacral spondylosis without myelopathy [facility] Diagnosis Spondylosis 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 or radiculopathy Lumbosacral spondylosis without myelopathy [facility] Diagnosis Spondylosis 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 or radiculopathy- Primary Lumbosacral spondylosis without myelopathy Arthritis of left glenohumeral joint [facility] Diagnosis Spondylosis 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 or radiculopathy Lumbosacral spondylosis without myelopathy Arthritis of left glenohumeral joint [facility] Diagnosis Preoperative examination- Primary Preoperative examination, unspecified Coronary artery disease involving moapa coronary artery of moapa heart without angina pectoris H/O heart artery stent Postsurgical percutaneous transluminal coronary angioplasty status Mixed hyperlipidemia Chronic GERD Smoker Tobacco use disorder BMI 30.0-30.9,adult Body Mass Index 30.0-30.9, adult Chronic left shoulder pain Pain in joint, shoulder region Right hip pain- Primary Pain in joint, pelvic region and thigh Arthritis of left glenohumeral joint [facility] Diagnosis Right hip pain Pain in joint, pelvic region and thigh Arthritis of left glenohumeral joint [facility] Diagnosis Status post replacement of left shoulder joint- Primary Postop check Follow-up examination, following unspecified surgery Acute post-operative pain Status post shoulder replacement Shoulder joint replacement by other means [facility] Diagnosis S/P shoulder surgery- Primary Other postprocedural status S/P shoulder surgery Other postprocedural status [facility] Diagnosis S/P shoulder surgery Other postprocedural status [facility] Diagnosis S/P shoulder surgery- Primary Other postprocedural status S/P shoulder surgery Other postprocedural status [facility] Diagnosis S/P shoulder surgery Other postprocedural status [facility] Diagnosis S/P shoulder surgery- Primary Other postprocedural status S/P shoulder surgery Other postprocedural status [facility] Diagnosis S/P shoulder surgery Other postprocedural status [facility] Diagnosis Spondylosis 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 or radiculopathy- Primary Lumbosacral spondylosis without myelopathy [facility] Diagnosis Left shoulder pain, unspecified chronicity- Primary [facility] Diagnosis S/P shoulder surgery Other postprocedural status [facility] Diagnosis 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- Primary Hyperlipidemia, unspecified hyperlipidemia type Hx of percutaneous transluminal coronary angioplasty Postsurgical percutaneous transluminal coronary angioplasty status Encounter for screening for coronary artery disease [facility]* Diagnosis 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 Hyperlipidemia, unspecified hyperlipidemia type Encounter for screening for coronary artery disease [facility]* Diagnosis S/P shoulder surgery- Primary Other postprocedural status S/P shoulder surgery Other postprocedural status [facility] Diagnosis S/P shoulder surgery Other postprocedural status [facility]* Diagnosis 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- Primary Hyperlipidemia, unspecified hyperlipidemia type Hx of percutaneous transluminal coronary angioplasty Postsurgical percutaneous transluminal coronary angioplasty status Encounter for screening for coronary artery disease Angina pectoris- Primary Other and unspecified angina pectoris 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 H/O heart artery stent Postsurgical percutaneous transluminal coronary angioplasty status Hyperlipidemia, unspecified hyperlipidemia type Hx of percutaneous transluminal coronary angioplasty Postsurgical percutaneous transluminal coronary angioplasty status Angina pectoris Other and unspecified angina pectoris 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 H/O heart artery stent Postsurgical percutaneous transluminal coronary angioplasty status Hyperlipidemia, unspecified hyperlipidemia type Angina pectoris Other and unspecified angina pectoris 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 H/O heart artery stent Postsurgical percutaneous transluminal coronary angioplasty status Hyperlipidemia, unspecified hyperlipidemia type [facility]* Diagnosis 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- Primary Hyperlipidemia, unspecified hyperlipidemia type Hx of percutaneous transluminal coronary angioplasty Postsurgical percutaneous transluminal coronary angioplasty status Encounter for screening for coronary artery disease Angina pectoris- Primary Other and unspecified angina pectoris 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 H/O heart artery stent Postsurgical percutaneous transluminal coronary angioplasty status Hyperlipidemia, unspecified hyperlipidemia type Hx of percutaneous transluminal coronary angioplasty Postsurgical percutaneous transluminal coronary angioplasty status Angina pectoris Other and unspecified angina pectoris 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 H/O heart artery stent Postsurgical percutaneous transluminal coronary angioplasty status Hyperlipidemia, unspecified hyperlipidemia type 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 Hyperlipidemia, unspecified hyperlipidemia type Encounter for screening for coronary artery disease Angina pectoris Other and unspecified angina pectoris 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 H/O heart artery stent Postsurgical percutaneous transluminal coronary angioplasty status Hyperlipidemia, unspecified hyperlipidemia type [facility]* Diagnosis 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- Primary Hyperlipidemia, unspecified hyperlipidemia type Hx of percutaneous transluminal coronary angioplasty Postsurgical percutaneous transluminal coronary angioplasty status Encounter for screening for coronary artery disease Angina pectoris- Primary Other and unspecified angina pectoris 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 H/O heart artery stent Postsurgical percutaneous transluminal coronary angioplasty status Hyperlipidemia, unspecified hyperlipidemia type Hx of percutaneous transluminal coronary angioplasty Postsurgical percutaneous transluminal coronary angioplasty status Hx of percutaneous transluminal coronary angioplasty- Primary Postsurgical percutaneous transluminal coronary angioplasty status Angina pectoris Other and unspecified angina pectoris 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 H/O heart artery stent Postsurgical percutaneous transluminal coronary angioplasty status Hyperlipidemia, unspecified hyperlipidemia type DAVID (dyspnea on exertion) Other dyspnea and respiratory abnormality [facility] 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- Primary Hyperlipidemia, unspecified hyperlipidemia type Hx of percutaneous transluminal coronary angioplasty Postsurgical percutaneous transluminal coronary angioplasty status Encounter for screening for coronary artery disease Angina pectoris- Primary Other and unspecified angina pectoris 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 H/O heart artery stent Postsurgical percutaneous transluminal coronary angioplasty status Hyperlipidemia, unspecified hyperlipidemia type Hx of percutaneous transluminal coronary angioplasty Postsurgical percutaneous transluminal coronary angioplasty status Angina pectoris- Primary Other and unspecified angina pectoris 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 H/O heart artery stent Postsurgical percutaneous transluminal coronary angioplasty status Hyperlipidemia, unspecified hyperlipidemia type [facility]* Diagnosis 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- Primary Hyperlipidemia, unspecified hyperlipidemia type Hx of percutaneous transluminal coronary angioplasty Postsurgical percutaneous transluminal coronary angioplasty status Encounter for screening for coronary artery disease Angina pectoris- Primary Other and unspecified angina pectoris 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 H/O heart artery stent Postsurgical percutaneous transluminal coronary angioplasty status Hyperlipidemia, unspecified hyperlipidemia type Hx of percutaneous transluminal coronary angioplasty Postsurgical percutaneous transluminal coronary angioplasty status Hx of percutaneous transluminal coronary angioplasty Postsurgical percutaneous transluminal coronary angioplasty status DAVID (dyspnea on exertion) Other dyspnea and respiratory abnormality Angina pectoris- Primary Other and unspecified angina pectoris 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 H/O heart artery stent Postsurgical percutaneous transluminal coronary angioplasty status Hyperlipidemia, unspecified hyperlipidemia type [facility]* Diagnosis 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- Primary Hyperlipidemia, unspecified hyperlipidemia type Hx of percutaneous transluminal coronary angioplasty Postsurgical percutaneous transluminal coronary angioplasty status Encounter for screening for coronary artery disease Angina pectoris- Primary Other and unspecified angina pectoris 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 H/O heart artery stent Postsurgical percutaneous transluminal coronary angioplasty status Hyperlipidemia, unspecified hyperlipidemia type Hx of percutaneous transluminal coronary angioplasty Postsurgical percutaneous transluminal coronary angioplasty status Angina pectoris- Primary Other and unspecified angina pectoris 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 H/O heart artery stent Postsurgical percutaneous transluminal coronary angioplasty status Hyperlipidemia, unspecified hyperlipidemia type 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- Primary 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 [facility]* Diagnosis 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- Primary Hyperlipidemia, unspecified hyperlipidemia type Hx of percutaneous transluminal coronary angioplasty Postsurgical percutaneous transluminal coronary angioplasty status Encounter for screening for coronary artery disease Angina pectoris- Primary Other and unspecified angina pectoris 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 H/O heart artery stent Postsurgical percutaneous transluminal coronary angioplasty status Hyperlipidemia, unspecified hyperlipidemia type Hx of percutaneous transluminal coronary angioplasty Postsurgical percutaneous transluminal coronary angioplasty status Angina pectoris- Primary Other and unspecified angina pectoris 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 H/O heart artery stent Postsurgical percutaneous transluminal coronary angioplasty status Hyperlipidemia, unspecified hyperlipidemia type 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- Primary 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 Other disorders of arteries, arterioles and capillaries in diseases classified elsewhere Chest pain, unspecified type 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 [facility] 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- Primary Hyperlipidemia, unspecified hyperlipidemia type Hx of percutaneous transluminal coronary angioplasty Postsurgical percutaneous transluminal coronary angioplasty status Encounter for screening for coronary artery disease Angina pectoris- Primary Other and unspecified angina pectoris 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 H/O heart artery stent Postsurgical percutaneous transluminal coronary angioplasty status Hyperlipidemia, unspecified hyperlipidemia type Hx of percutaneous transluminal coronary angioplasty Postsurgical percutaneous transluminal coronary angioplasty status Angina pectoris- Primary Other and unspecified angina pectoris 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 H/O heart artery stent Postsurgical percutaneous transluminal coronary angioplasty status Hyperlipidemia, unspecified hyperlipidemia type 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- Primary 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 Other disorders of arteries, arterioles and capillaries in diseases classified elsewhere 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 [facility] Diagnosis 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- Primary Hyperlipidemia, unspecified hyperlipidemia type Hx of percutaneous transluminal coronary angioplasty Postsurgical percutaneous transluminal coronary angioplasty status Encounter for screening for coronary artery disease Angina pectoris- Primary Other and unspecified angina pectoris 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 H/O heart artery stent Postsurgical percutaneous transluminal coronary angioplasty status Hyperlipidemia, unspecified hyperlipidemia type Hx of percutaneous transluminal coronary angioplasty Postsurgical percutaneous transluminal coronary angioplasty status Angina pectoris- Primary Other and unspecified angina pectoris 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 H/O heart artery stent Postsurgical percutaneous transluminal coronary angioplasty status Hyperlipidemia, unspecified hyperlipidemia type 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- Primary 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 [facility] Diagnosis 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- Primary Hyperlipidemia, unspecified hyperlipidemia type Hx of percutaneous transluminal coronary angioplasty Postsurgical percutaneous transluminal coronary angioplasty status Encounter for screening for coronary artery disease Angina pectoris- Primary Other and unspecified angina pectoris 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 H/O heart artery stent Postsurgical percutaneous transluminal coronary angioplasty status Hyperlipidemia, unspecified hyperlipidemia type Hx of percutaneous transluminal coronary angioplasty Postsurgical percutaneous transluminal coronary angioplasty status Angina pectoris- Primary Other and unspecified angina pectoris 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 H/O heart artery stent Postsurgical percutaneous transluminal coronary angioplasty status Hyperlipidemia, unspecified hyperlipidemia type Elective surgical procedure- Primary Unspecified elective surgery for purposes other than remedying health states 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 S/P three vessel coronary artery bypass Postsurgical aortocoronary bypass status Acute post-operative pain S/P CABG x 3 Postsurgical aortocoronary bypass status Physical deconditioning Debility, unspecified 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 Obesity (BMI 30.0-34.9) Obesity, unspecified Hyperlipidemia Other and unspecified hyperlipidemia S/P CABG x 3 Postsurgical aortocoronary bypass status [facility] Diagnosis 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- Primary Hyperlipidemia, unspecified hyperlipidemia type Hx of percutaneous transluminal coronary angioplasty Postsurgical percutaneous transluminal coronary angioplasty status Encounter for screening for coronary artery disease Angina pectoris- Primary Other and unspecified angina pectoris 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 H/O heart artery stent Postsurgical percutaneous transluminal coronary angioplasty status Hyperlipidemia, unspecified hyperlipidemia type Hx of percutaneous transluminal coronary angioplasty Postsurgical percutaneous transluminal coronary angioplasty status Angina pectoris- Primary Other and unspecified angina pectoris 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 H/O heart artery stent Postsurgical percutaneous transluminal coronary angioplasty status Hyperlipidemia, unspecified hyperlipidemia type S/P CABG (coronary artery bypass graft)- Primary Postsurgical aortocoronary bypass status Non-ST elevation (NSTEMI) myocardial infarction Acute myocardial infarction, subendocardial infarction, episode of care unspecified 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 Mixed hyperlipidemia Tobacco use disorder NSTEMI (non-ST elevated myocardial infarction) Acute myocardial infarction, subendocardial infarction, episode of care unspecified Systolic heart failure, unspecified HF chronicity S/P CABG x 3 Postsurgical aortocoronary bypass status NSTEMI (non-ST elevated myocardial infarction) Acute myocardial infarction, subendocardial infarction, episode of care unspecified [facility] 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- Primary Hyperlipidemia, unspecified hyperlipidemia type Hx of percutaneous transluminal coronary angioplasty Postsurgical percutaneous transluminal coronary angioplasty status Encounter for screening for coronary artery disease Angina pectoris- Primary Other and unspecified angina pectoris 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 H/O heart artery stent Postsurgical percutaneous transluminal coronary angioplasty status Hyperlipidemia, unspecified hyperlipidemia type Hx of percutaneous transluminal coronary angioplasty Postsurgical percutaneous transluminal coronary angioplasty status Angina pectoris- Primary Other and unspecified angina pectoris 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 H/O heart artery stent Postsurgical percutaneous transluminal coronary angioplasty status Hyperlipidemia, unspecified hyperlipidemia type S/P CABG x 3- Primary Postsurgical aortocoronary bypass status Hx of percutaneous transluminal coronary angioplasty Postsurgical percutaneous transluminal coronary angioplasty status Mixed hyperlipidemia [facility] 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- Primary Hyperlipidemia, unspecified hyperlipidemia type Hx of percutaneous transluminal coronary angioplasty Postsurgical percutaneous transluminal coronary angioplasty status Encounter for screening for coronary artery disease Angina pectoris- Primary Other and unspecified angina pectoris 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 H/O heart artery stent Postsurgical percutaneous transluminal coronary angioplasty status Hyperlipidemia, unspecified hyperlipidemia type Hx of percutaneous transluminal coronary angioplasty Postsurgical percutaneous transluminal coronary angioplasty status Angina pectoris- Primary Other and unspecified angina pectoris 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 H/O heart artery stent Postsurgical percutaneous transluminal coronary angioplasty status Hyperlipidemia, unspecified hyperlipidemia type 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- Primary H/O heart artery stent Postsurgical percutaneous transluminal coronary angioplasty status S/P CABG x 3 Postsurgical aortocoronary bypass status Mixed hyperlipidemia [facility] Diagnosis 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- Primary Hyperlipidemia, unspecified hyperlipidemia type Hx of percutaneous transluminal coronary angioplasty Postsurgical percutaneous transluminal coronary angioplasty status Encounter for screening for coronary artery disease Angina pectoris- Primary Other and unspecified angina pectoris 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 H/O heart artery stent Postsurgical percutaneous transluminal coronary angioplasty status Hyperlipidemia, unspecified hyperlipidemia type Hx of percutaneous transluminal coronary angioplasty Postsurgical percutaneous transluminal coronary angioplasty status Angina pectoris- Primary Other and unspecified angina pectoris 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 H/O heart artery stent Postsurgical percutaneous transluminal coronary angioplasty status Hyperlipidemia, unspecified hyperlipidemia type 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- Primary H/O heart artery stent Postsurgical percutaneous transluminal coronary angioplasty status S/P CABG x 3 Postsurgical aortocoronary bypass status Mixed hyperlipidemia S/P three vessel coronary artery bypass Postsurgical aortocoronary bypass status [facility] Diagnosis 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- Primary Hyperlipidemia, unspecified hyperlipidemia type Hx of percutaneous transluminal coronary angioplasty Postsurgical percutaneous transluminal coronary angioplasty status Encounter for screening for coronary artery disease Angina pectoris- Primary Other and unspecified angina pectoris 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 H/O heart artery stent Postsurgical percutaneous transluminal coronary angioplasty status Hyperlipidemia, unspecified hyperlipidemia type Hx of percutaneous transluminal coronary angioplasty Postsurgical percutaneous transluminal coronary angioplasty status Angina pectoris- Primary Other and unspecified angina pectoris 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 H/O heart artery stent Postsurgical percutaneous transluminal coronary angioplasty status Hyperlipidemia, unspecified hyperlipidemia type Hypersomnia- Primary Hypersomnia, unspecified ILD (interstitial lung disease) 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- Primary H/O heart artery stent Postsurgical percutaneous transluminal coronary angioplasty status S/P CABG x 3 Postsurgical aortocoronary bypass status Mixed hyperlipidemia [facility] Diagnosis 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- Primary Hyperlipidemia, unspecified hyperlipidemia type Hx of percutaneous transluminal coronary angioplasty Postsurgical percutaneous transluminal coronary angioplasty status Encounter for screening for coronary artery disease Angina pectoris- Primary Other and unspecified angina pectoris 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 H/O heart artery stent Postsurgical percutaneous transluminal coronary angioplasty status Hyperlipidemia, unspecified hyperlipidemia type Hx of percutaneous transluminal coronary angioplasty Postsurgical percutaneous transluminal coronary angioplasty status Angina pectoris- Primary Other and unspecified angina pectoris 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 H/O heart artery stent Postsurgical percutaneous transluminal coronary angioplasty status Hyperlipidemia, unspecified hyperlipidemia type 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- Primary H/O heart artery stent Postsurgical percutaneous transluminal coronary angioplasty status S/P CABG x 3 Postsurgical aortocoronary bypass status Mixed hyperlipidemia NSTEMI (non-ST elevated myocardial infarction)- Primary Acute myocardial infarction, subendocardial infarction, episode of care unspecified Coronary artery disease involving moapa coronary artery of [place] heart with unstable angina pectoris Chest pain, unspecified type NSTEMI (non-ST elevated myocardial infarction) Acute myocardial infarction, subendocardial infarction, episode of care unspecified Coronary artery disease involving [place] coronary artery of [place] heart with unstable angina pectoris [facility] 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- Primary Hyperlipidemia, unspecified hyperlipidemia type Hx of percutaneous transluminal coronary angioplasty Postsurgical percutaneous transluminal coronary angioplasty status Encounter for screening for coronary artery disease Angina pectoris- Primary Other and unspecified angina pectoris 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 H/O heart artery stent Postsurgical percutaneous transluminal coronary angioplasty status Hyperlipidemia, unspecified hyperlipidemia type Hx of percutaneous transluminal coronary angioplasty Postsurgical percutaneous transluminal coronary angioplasty status Angina pectoris- Primary Other and unspecified angina pectoris 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 H/O heart artery stent Postsurgical percutaneous transluminal coronary angioplasty status Hyperlipidemia, unspecified hyperlipidemia type 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- Primary H/O heart artery stent Postsurgical percutaneous transluminal coronary angioplasty status S/P CABG x 3 Postsurgical aortocoronary bypass status Mixed hyperlipidemia 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- Primary H/O heart artery stent Postsurgical percutaneous transluminal coronary angioplasty status S/P CABG x 3 Postsurgical aortocoronary bypass status Angina pectoris Other and unspecified angina pectoris Hyperlipidemia, unspecified hyperlipidemia type [facility] Attachments The following attachments cannot be sent through Care Everywhere. * Cardiac Cath [facility] After - Wrist Site ([facility]) ([place]) [facility] (narrative)* Consultation (Routine) - New Request Specialty Diagnoses / Procedures Referred By Seb t Referred To Contact [facility] Diagnoses Left shoulder pain, unspecified chronicity Cvetanovich, Robin L, MD [address] [place] [phone] Referral ID Status Reason Start Date Expiration Date V isits Requested Visits Authorized [id number] New Request 01/08/2022 02/02/2023 1 1 [facility] Consultation (Routine) - New Request Specialty Diagnoses / Procedures Referred By Contac t Referred To Contact [facility] Diagnoses Left shoulder pain, unspecified chronicity Robin Mcguire MD [address] [place], [place] [id number] Referral ID Status Reason Start Date Expiration Date V isits Requested Visits Authorized [id number] New Request 04/10/2022 05/05/2023 1 1 [facility]No reason for referral information availableWOhio [facility] Work Phone: Reason for referral (narrative)* (Routine) Specialty Diagnoses / Procedures Referred By Contac t Referred To Contact [facility] [address] [place] [address] Referral ID Status Reason Start Date Expiration Date Visits Re quested Visits Authorized * (Routine) Specialty Diagnoses / Procedures Referred By Contac t Referred To Contact [facility] [address] [place] [address] Referral ID Status Reason Start Date Expiration Date Visits Re quested Visits Authorized * (Routine) Specialty Diagnoses / Procedures Referred By Contac t Referred To Contact [facility] [address] [place] [address] Referral ID Status Reason Start Date Expiration Date Visits Re quested Visits Authorized * Radiology (Emergency) - New Request Specialty Diagnoses / Procedures Referred By Contac t Referred To Contact Procedures ECG Meagan Greenwood PA-C [address] [place] [address] Phone: tel: fax: Referral ID Status Reason Start Date Expiration Date V isits Requested Visits Authorized [id number] New Request 04/02/2025 04/27/2026 1 1 * (Routine) Specialty Diagnoses / Procedures Referred By Contac t Referred To Contact [facility] [address] [place] [address] Referral ID Status Reason Start Date Expiration Date Visits Re quested Visits Authorized * (Routine) Specialty Diagnoses / Procedures Referred By Contac t Referred To Contact [facility] [address] [place] [phone] Referral ID Status Reason Start Date Expiration Date Visits Re quested Visits Authorized [facility] for visit Narrative* Auth/Cert Specialty Diagnoses / Procedures Referred By Contac t Referred To Contact Diagnoses Arthritis of left glenohumeral joint Arthritis of left glenohumeral joint [M19.012] Procedures [place] RECONSTR TOTAL SHOULDER IMPLANT ARTHROPLASTY SHOULDER TOTAL Robin Mcguire MD [address] [place] [address] [facility] [address] [place] [address] Referral ID Status Reason Start Date Expiration Date Visits Re quested Visits Authorized [id number] 1 1 [facility] Narrative* Auth/Cert (Routine) Specialty Diagnoses / Procedures Referred By Contac t Referred To Contact Diagnoses Angina pectoris 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 H/O heart artery stent Hyperlipidemia, unspecified hyperlipidemia type Angina pectoris [I20.9] 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 [I25.119] H/O heart artery stent [Z95.5] Hyperlipidemia, unspecified hyperlipidemia type [E78.5] Procedures IL CATH PLMT L HRT & ARTS W/NJX & ANGIO IMG S&I CORONARY ANGIOGRAM WITH LEFT HEART CATH [facility] [address] [place] [phone] [facility] [address] [place] [address] Referral ID Status Reason Start Date Expiration Date Visits Re quested Visits Authorized [id number] 1 1 [facility] for visit Narrative* Radiology (Routine) - New Request Specialty Diagnoses / Procedures Referred By Seb mckeon Referred To Contact Diagnoses Hx of percutaneous transluminal coronary angioplasty DAVID (dyspnea on exertion) Procedures ECHOCARDIOGRAM IL ECHO TTHRC R-T 2D W/WOM-MODE COMPL SPEC&COLR D Anirudh Rutledge MD [address] [address] Phone: tel: fax: Referral ID Status Reason Start Date Expiration Date V isits Requested Visits Authorized [id number] New Request 02/03/2025 02/28/2026 1 1 [facility] for visit Narrative* MRI/CAT Scan (Routine) - New Request Specialty Diagnoses / Procedures Referred By Seb mckeon Referred To Contact Diagnoses 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 Procedures CT CHEST WITHOUT CONTRAST CHG DIAGNOSTIC COMPUTED TOMOGRAPHY THORAX W/O Yadi Dangelo, PROFESSOR OF VOICE-AERONAUTICAL DRAFTER [address] [place] [phone] Phone: tel: fax: Referral ID Status Reason Start Date Expiration Date V isits Requested Visits Authorized [id number] New Request 02/22/2025 03/19/2026 1 1 [facility] for visit Narrative* Radiology (Routine) - New Request Specialty Diagnoses / Procedures Referred By Seb mckeon Referred To Contact Diagnoses 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 Other disorders of arteries, arterioles and capillaries in diseases classified elsewhere Chest pain, unspecified type Procedures VASC DUPLEX VEIN MAPPING EXTREMITY LOWER BILATERAL IL DUP-SCAN XTR VEINS COMPLETE BILATERAL STUDY Nancy Leondelma Epps, PROFESSOR OF VOICE-AERONAUTICAL DRAFTER [address] [place] [phone] Phone: tel: fax: Referral ID Status Reason Start Date Expiration Date V isits Requested Visits Authorized [id number] New Request 02/22/2025 03/19/2026 1 1 [facility] for visit Narrative* Radiology (Routine) - New Request Specialty Diagnoses / Procedures Referred By Seb mckeon Referred To Contact Diagnoses 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 Other disorders of arteries, arterioles and capillaries in diseases classified elsewhere Procedures VASC DUPLEX CAROTID BILATERAL IL DUPLEX SCAN EXTRACRANIAL ART COMPL BI STUDY Ryan Leonsarah Epps, PROFESSOR OF VOICE-AERONAUTICAL DRAFTER [address] [place] [phone] Phone: tel: fax: Referral ID Status Reason Start Date Expiration Date V isits Requested Visits Authorized [id number] New Request 02/22/2025 03/19/2026 1 1 [facility] for visit Narrative* Pulmonary Rehabilitation (Routine) - New Request Specialty Diagnoses / Procedures Referred By Seb mckeon Referred To Contact Diagnoses 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 Procedures PFT STANDARD EdwardYadi, PROFESSOR OF VOICE-AERONAUTICAL DRAFTER [address] [place] [phone] Phone: tel: fax: Referral ID Status Reason Start Date Expiration Date V isits Requested Visits Authorized [id number] New Request 02/22/2025 03/19/2026 1 1 [facility] for visit Narrative* Auth/Cert Specialty Diagnoses / Procedures Referred By Seb mckeon Referred To Contact Diagnoses 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 [I25.119] Procedures [place] CABG W/ARTERIAL GRAFT THREE ARTERIAL GRAFTS CABG W/ ARTERY GRAFT OPEN Bony Garcia MD, PhD [address] [place] [address] Phone: tel: fax: [facility] [address] [place] [address] Referral ID Status Reason Start Date Expiration Date Visits Re quested Visits Authorized [id number] 1 1 [facility] Auth/Cert Specialty Diagnoses / Procedures Referred By Seb mckeon Referred To Contact Diagnoses Chest Pain elevated troponin Recent CABG Bony Garcia MD, PhD [address] [place] [phone] Phone: tel: fax: [facility] [address] [place] [address] Referral ID Status Reason Start Date Expiration Date Visits Re quested Visits Authorized [id number] 1 1 [facility] N[facility]* Auth/Cert Specialty Diagnoses / Procedures Referred By Seb mckeon Referred To Contact Diagnoses Chest Pain Nicole Salinas MD, PhD [address] [facility] [address] [place] [address] Phone: tel: fax: [facility] [address] [place] [address] Referral ID Status Reason Start Date Expiration Date Visits Re quested Visits Authorized [id number] 1 1 [facility] Summary Purpose Family History No Family History Records Found Relationship Condition Age at Onset Recorded Date/T karine father Hypertension Unknown Coronary artery disease Unknown mother Coronary artery disease Unknown brother Malignant neoplasm Unknown Advance Directives No Advanced Directives Records Found Advance Directive Response Recorded Date/ Time Living Will No August 24 12:02pm Power of Synthetic Gem Press Operator No August 24, 2021 12:02pm Advance Directive Response Recorded Date/ Time Living Will No August 24 11:02am Power of Synthetic Gem Press Operator No August 24, 2021 11:02am Date Activated Date Inactivated Comments 03/10/2025 8:18 PM Advance Directive Response Recorded Date/ Time Do you have a Healthcare Power of Synthetic Gem Press Operator? No March 18, 2025 3:57pm Advance Directive Response Recorded Date/ Time Advance Directives on File No March 30, 2025 2:25pm Living Will No March 30, 2025 2:25pm Do you have a Healthcare Power of Synthetic Gem Press Operator? No March 30, 2025 2:25pm Do you have a Healthcare Power of Synthetic Gem Press Operator? No March 18, 2025 3:57pm Do you have a Healthcare Power of Synthetic Gem Press Operator? No April 01, 2025 5:29pm Date Activated Date Inactivated Comments 03/10/2025 8:18 PM Date Activated Date Inactivated Comments 05/28/2025 4:40 PM Date Activated Date Inactivated Comments 03/10/2025 8:18 PM 05/28/2025 4:40 PM Date Activated Date Inactivated Comments 05/28/2025 4:40 PM Date Activated Date Inactivated Comments 03/10/2025 8:18 PM 05/28/2025 4:40 PM Reason for Referral Specialty Diagnoses / Procedures Referred By Contac t Referred To Contact Diagnoses Left shoulder pain, unspecified chronicity Procedures CT SHOULDER LEFT WITHOUT CONTRAST WITH 3D FOR SURGICAL PLANNING [place] CT SCAN,UPPER EXTREMITY,W/O CONTRAST Robin Mcguire MD [address] [place] [address] Referral ID Status Reason Start Date Expiration Date V isits Requested Visits Authorized [id number] New Request 12/11/2021 01/05/2023 1 1 Specialty Diagnoses / Procedures Referred By Contac t Referred To Contact Diagnoses Left shoulder pain, unspecified chronicity Procedures XR SHOULDER LEFT MIN 2 VIEWS Alvaro Chaves MD [address] [address] Referral ID Status Reason Start Date Expiration Date V isits Requested Visits Authorized [id number] New Request 12/10/2021 01/04/2023 1 1 Referral ID Status Reason Start Date Expiration Date Visits Re quested Visits Authorized [id number] Closed 12/11/2021 01/05/2023 1 1 Specialty Diagnoses / Procedures Referred By Contac t Referred To Contact Diagnoses Spondylosis 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 or radiculopathy Teresita Rawls MD [address] [place] [address] Referral ID Status Reason Start Date Expiration Date V isits Requested Visits Authorized [id number] New Request 01/03/2022 01/28/2023 1 1 Scheduling Instructions At least 1 wk apart Specialty Diagnoses / Procedures Referred By Contac t Referred To Contact Diagnoses Arthritis of left glenohumeral joint Procedures [facility] MEDICINE Zaheer Govea MD [address] [place] [address] Referral ID Status Reason Start Date Expiration Date V isits Requested Visits Authorized [id number] New Request 01/08/2022 02/02/2023 1 1 Referral ID Status Reason Start Date Expiration Date V isits Requested Visits Authorized [id number] New Request 03/06/2022 03/31/2023 1 1 Specialty Diagnoses / Procedures Referred By Contac t Referred To Contact Diagnoses Lumbar facet arthropathy Procedures [facility] Teresita Rawls MD [address] [place] [address] Referral ID Status Reason Start Date Expiration Date V isits Requested Visits Authorized [id number] New Request 03/05/2022 03/30/2023 1 1 Specialty Diagnoses / Procedures Referred By Contac t Referred To Contact Diagnoses Spondylosis 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 or radiculopathy Procedures [facility] Teresita Rawls MD [address] [place] [address] Referral ID Status Reason Start Date Expiration Date V isits Requested Visits Authorized [id number] Pending Review 04/09/2022 05/04/2023 1 1 Specialty Diagnoses / Procedures Referred By Contac t Referred To Contact Diagnoses Left shoulder pain, unspecified chronicity Procedures [facility]IC[facility] Zaheer Govea MD [address] [place] [address] Referral ID Status Reason Start Date Expiration Date V isits Requested Visits Authorized [id number] New Request 04/29/2022 05/24/2023 1 1 Specialty Diagnoses / Procedures Referred By Seb mckeon Referred To Contact Physical Therapy Diagnoses Right hip pain Amarjit Marroquin MD [address] [facility] [address] [place] [address] Referral ID Status Reason Start Date Expiration Date V isits Requested Visits Authorized [id number] New Request 05/01/2022 05/26/2023 1 1 Scheduling Instructions [facility] 0 [facility], 2nd [place] [address] Fax [facility] (Neck and Back Therapy) [address] [place], [place] [address] FAX [facility] at [address] [address] FAX Outpatient Rehabilitation [facility] [place] [address] [facility] [address] [place] [address] FAX [facility] [address] [place] [address] FAX [facility] [address] [place], [place] [address] FAX [facility] [address] [place], [place] [address] FAX Continued on next page Outpatient Rehabilitation Outpatient Care [address] [place] [address] FAX Referral ID Status Reason Start Date Expiration Date V isits Requested Visits Authorized [id number] New Request 06/25/2022 07/20/2023 1 1 Referral ID Status Reason Start Date Expiration Date V isits Requested Visits Authorized [id number] New Request 07/02/2022 07/27/2023 1 1 Specialty Diagnoses / Procedures Referred By Contac t Referred To Contact Diagnoses Preoperative examination Procedures ECG Vernon, Susan S, PROFESSOR OF VOICE-AERONAUTICAL DRAFTER [address] [place] [address] Referral ID Status Reason Start Date Expiration Date V isits Requested Visits Authorized [id number] New Request 07/31/2022 08/25/2023 1 1 Specialty Diagnoses / Procedures Referred By Contac t Referred To Contact Procedures US IMAGING OR Michael Castro MD [address] [place] [address] Referral ID Status Reason Start Date Expiration Date V isits Requested Visits Authorized [id number] New Request 08/14/2022 09/08/2023 1 1 Specialty Diagnoses / Procedures Referred By Contac t Referred To Contact Procedures US IMAGING OR Robin Mcguire MD [address] [place] [address] Referral ID Status Reason Start Date Expiration Date V isits Requested Visits Authorized [id number] New Request 08/14/2022 09/08/2023 1 1 Specialty Diagnoses / Procedures Referred By Contact Referred To Contact Sports Medicine and Rehabilitation Diagnoses S/P shoulder surgery Juan De PA-C [address] [place] [address] Referral ID Status Reason Start Date Expiration Date V isits Requested Visits Authorized [id number] New Request 08/28/2022 09/22/2023 1 1 Scheduling Instructions [facility] [place] [address] [facility] Room: [address] [place], [place] [phone] FAX [facility] [place] [address] [place], [place] [phone] FAX [facility] at [facility] [address] [facility] [place], [place] [address] [phone] FAX [facility] [place] [address] [place], [place] [address] [phone] FAX [facility] [address] [facility], [address] [place] [address] [phone] FAX Outpatient Rehabilitation Outpatient [facility] [place] [address], [address] [place] [address] [phone] FAX [facility] [address] [facility] [address] [place] [address] [phone] FAX Continued on next page [facility] [place] [address] [facility], [place] [address] [phone] FAX [facility] [address] [place] [address] [phone] FAX Outpatient Rehabilitation Outpatient Care [address] [place] [address] [phone] FAX [facility] at [place] [address] [place] [address] [phone] FAX Outpatient Care [address] [address] FAX Specialty Diagnoses / Procedures Referred By Contac t Referred To Contact Diagnoses S/P shoulder surgery Procedures XR SHOULDER LEFT MIN 2 VIEWS Robin Mcguire MD [address] [place] [address] Referral ID Status Reason Start Date Expiration Date V isits Requested Visits Authorized [id number] New Request 09/25/2022 10/20/2023 1 1 Referral ID Status Reason Start Date Expiration Date V isits Requested Visits Authorized [id number] New Request 03/03/2023 03/27/2024 1 1 Specialty Diagnoses / Procedures Referred By Seb t Referred To Contact Diagnoses 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 Hyperlipidemia, unspecified hyperlipidemia type Encounter for screening for coronary artery disease Procedures NUC MYOCARD PERF STRESS MIBI EXERCISE IL CHG MYOCARDIAL SPECT MULTIPLE STUDIES [place] CARDIAC STRESS TST,TRACING ONLY Luis Antonio Arias MD [address] [place] [address] Referral ID Status Reason Start Date Expiration Date V isits Requested Visits Authorized [id number] New Request 07/21/2023 08/14/2024 1 1 Specialty Diagnoses / Procedures Referred By Seb mckeon Referred To Contact Diagnoses 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 Hyperlipidemia, unspecified hyperlipidemia type Encounter for screening for coronary artery disease Procedures ECHOCARDIOGRAM IL ECHO HEART XTHORACIC,COMPLETE W DOPPLER Luis Antonio Arias MD [address] [place] [address] Referral ID Status Reason Start Date Expiration Date V isits Requested Visits Authorized [id number] New Request 07/21/2023 08/14/2024 1 1 Chief Complaint and Reason for Visit Chief Complaint BACK PAIN / RX HERE OA LT SHOULDER/ RX HERE Chief Complaint BACK PAIN / RX HERE OA LT SHOULDER/ RX HERE 6 m fu Reason for Visit Bilateral edema of l ower extremity Atherosclerotic heart disease of moapa coronary artery without angina pectoris Essential hypertension Hyperlipidemia Presence of stent in coronary artery Chief Complaint CHEST PAIN CHEST PAIN Chief Complaint SINUSITIS CHRONIC SINUSITIS Chief Complaint Admit Date SINUSITIS December 09, 2024 3:29 pm Chief Complaint Admit Date SINUSITIS December 09, 2024 3:29 pm RE DRAW January 14, 2025 7:50am Chief Complaint Admit Date SINUSITIS December 09, 2024 3:29 pm RE DRAW January 14, 2025 7:50am lower extremity March 18, 2025 1:39 pm Chief Complaint Admit Date SINUSITIS December 09, 2024 3:29 pm RE DRAW January 14, 2025 7:50am lower extremity March 18, 2025 1:39 pm S/P CABG March 30, 2025 2:01 pm CHEST PAIN April 01, 2025 5:02 pm Chief Complaint Admit Date RE DRAW January 14, 2025 7:50am lower extremity March 18, 2025 1:39 pm S/P CABG March 30, 2025 2:01 pm CHEST PAIN April 01, 2025 5:02 pm S/P CABG May 06, 2025 9: 15am Chief Complaint Admit Date RE DRAW January 14, 2025 7:50am lower extremity March 18, 2025 1:39 pm S/P CABG March 30, 2025 2:01 pm CHEST PAIN April 01, 2025 5:02 pm S/P CABG May 06, 2025 9: 15am S/P CABG May 11, 2025 7:18am Additional Source Comments (unrecognized sect ion and content) No Status Records FoundNo Status Records FoundNo Status Records FoundNo Status Records Found INFORMATION SOURCE (unrecogn ized section and content) DATE CREATED AUTHOR 12/31/2020 Corky Ybarra [facility] DATE CREATED AUTHOR AUTHOR'S ORGANIZ ATION 05/28/2025 [facility] DATE CREATED AUTHOR AUTHOR'S ORGANIZ ATION 05/30/2025 [facility] DATE CREATED AUTHOR AUTHOR'S ORGANIZ ATION 06/03/2025 [facility] Source Comments (unrecognize d section and content) In the event this informatio n is protected by the Federal Confidentiality of Alcohol and Drug Abuse Patient Records regulations: The Federal rules restrict any use of the information to criminally investigate or prosecute any alcohol or drug abuse patient.[facility] Reason for Visit (unrecogniz ed section and content) Reason Comments Lower Back Pain Right L2-5 RFA Specialty Diagnoses / Procedures Referred By Fiorac t Referred To Contact Diagnoses Spondylosis 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 or radiculopathy Teresita Rawls MD [facility] [place] [address] Referral ID Status Reason Start Date Expiration Date Visits Re quested Visits Authorized [id number] Closed 05/14/2022 06/08/2023 2 2 Reason Comments Other RFA Referral ID Status Reason Start Date Expiration Date V isits Requested Visits Authorized [id number] Auth Not Needed 05/14/2022 06/08/2023 2 2 Reason Comments Nerve Injection Referral ID Status Reason Start Date Expiration Date Visits Re quested Visits Authorized [id number] Closed 03/06/2022 03/31/2023 1 1 Reason Comments Pain Specialty Diagnoses / Procedures Referred By Contac t Referred To Contact Diagnoses Left shoulder pain, unspecified chronicity Procedures XR SHOULDER LEFT MIN 2 VIEWS Alvaro Chaves MD [address] [address] Referral ID Status Reason Start Date Expiration Date V isits Requested Visits Authorized [id number] New Request 12/10/2021 01/04/2023 1 1 Specialty Diagnoses / Procedures Referred By Contac t Referred To Contact Diagnoses Left shoulder pain, unspecified chronicity Procedures CT SHOULDER LEFT WITHOUT CONTRAST WITH 3D FOR SURGICAL PLANNING [place] CT SCAN,UPPER EXTREMITY,W/O CONTRAST Robin Mcguire MD [address] [place] [address] Referral ID Status Reason Start Date Expiration Date Visits Re quested Visits Authorized [id number] Closed 12/11/2021 01/05/2023 1 1 Reason Comments Follow-up Reason Comments Joint Injection 66yo M is here today for L shoulder USGI Reason Comments Condition Update f/u L shoulder CT re sults, wants to discuss surgical options-- Pt understands that he needs a replacement but wants it later this summer. Reason Comments Follow-up Pt presents today 7 months s/p R AGUSTIN 06/09/21. C/o mild incisional swelling and IT band soreness/tightness x 1 month, worsens when sitting, carrying a ladder, and crawling through an attic. Denies falls. Would like to make sure joint is in its proper place. Specialty Diagnoses / Procedures Referred By Fiorac t Referred To Contact Diagnoses Status post right hip replacement Procedures XR HIP RIGHT 2 VIEWS Marcelle Velasco PA-C [address] [facility] [address] [place] [address] Referral ID Status Reason Start Date Expiration Date V isits Requested Visits Authorized [id number] New Request 01/28/2022 02/22/2023 1 1 Reason Comments Back Pain Lumbar MBB Referral ID Status Reason Start Date Expiration Date Visits Re quested Visits Authorized [id number] Closed 01/03/2022 01/28/2023 2 1 Specialty Diagnoses / Procedures Referred By Contac t Referred To Contact Diagnoses Lumbar facet arthropathy Procedures [facility] Teresita Rawls MD [address] [place] [address] Referral ID Status Reason Start Date Expiration Date V isits Requested Visits Authorized [id number] New Request 03/05/2022 03/30/2023 1 1 Reason Onset Date Comments Appointment 04/10/2022 Reason Comments Joint Injection f/u L shoulder USGI for GH joint, last one done 01/08/22 Reason Comments Surgical Follow-up s/p R AGUSTIN on 1. Pt reports hip is doing well but still has some pain in groin in morning and IT still is painful. C/o of a small pouch of swelling just above the incision. Reason Comments Follow-up Swab for surgery frederic Addison Specialty Diagnoses / Procedures Referred By Contac t Referred To Contact Diagnoses Spondylosis 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 or radiculopathy Procedures [facility] Teresita Rawls MD [address] [place] [address] Referral ID Status Reason Start Date Expiration Date V isits Requested Visits Authorized [id number] New Request 06/25/2022 07/20/2023 1 1 Referral ID Status Reason Start Date Expiration Date V isits Requested Visits Authorized [id number] New Request 07/02/2022 07/27/2023 1 1 Reason Comments Preoperative Assessment Reason Comments Post Op Visit 2w s/p left TSA (DOS 08/14/22). Shoulder feels good. Denies any complications. Takes TYL. Reason Comments Post Op Visit 6w5d s/p left TSA (D OS 08/14/22) Pain level 0/2-3 with no activity sore after PT [facility]. Patient just wants update on progression to make sure everything is okay Specialty Diagnoses / Procedures Referred By Seb mckeon Referred To Contact Diagnoses S/P shoulder surgery Procedures XR SHOULDER LEFT MIN 2 VIEWS Robin Mcguire MD [address] [place] [address] Referral ID Status Reason Start Date Expiration Date V isits Requested Visits Authorized [id number] New Request 09/25/2022 10/20/2023 1 1 Reason Comments Follow-up 3 months s/p left TS A (DOS 08/14/22) - gets sore bc he is using it a bit too much- is trying to lift he has soreness- does still have decreased ROM Reason Comments Follow-up Reason Comments Condition Update 7m s/p L shoulder TS A (DOS 08/14/22)-- Not feeling bad, sore sleeping on it. Done with PT in January. Not taking anything for shoulder. Referral ID Status Reason Start Date Expiration Date V isits Requested Visits Authorized [id number] New Request 03/03/2023 03/27/2024 1 1 Reason Onset Date Comments Outside Medical Records Request 07/11/2023 Reason Comments Establish Care Pt reports chest dis comfort prior to have Upper respiratory virus Specialty Diagnoses / Procedures Referred By Seb mckeon Referred To Contact Diagnoses 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 Hyperlipidemia, unspecified hyperlipidemia type Encounter for screening for coronary artery disease Procedures ECHOCARDIOGRAM IL ECHO HEART XTHORACIC,COMPLETE W DOPPLER Luis Antonio Arias MD [address] [facility] [address] [place] [address] Referral ID Status Reason Start Date Expiration Date V isits Requested Visits Authorized [id number] New Request 07/21/2023 08/14/2024 1 1 Reason Comments Follow-up Pt reports for L TSA 19m POV. Pt reports no pain or issues at this time. Reason Comments Follow-up Last month PT states having pains on left side going inward, knifing pain. Happens both stationary and up moving. Experiences some SOB and light headedness. Reason Onset Date Comments Outside Medical Records Request 01/18/2025 Reason Comments Follow-up Cath Reason Comments Follow-up Concerns with Plavix , causing extreme aching. Has been on it previously in 2008 and was taken off of it for this reason. Was not sure if there was another option for blood thinner. Since increasing the Metoprolol has been extremely fatigued. Also is unsure why it was increased. Reason Comments Follow-up 3 mo follow-up. 3 mo CABG. Ribcage soreness and fatigue. Feels better after discontinuing Plavix and starting Effient. Reason Comments New Patient Ct scan from February 25, copd emphysema spot on lung Specialty Diagnoses / Procedures Referred By Seb mckeon Referred To Contact Pulmonary Disease Diagnoses Abnormal finding on CT scan Yadi Leon, PROFESSOR OF VOICE-AERONAUTICAL DRAFTER [address] [place] [address] Phone: tel: fax: Referral ID Status Reason Start Date Expiration Date V isits Requested Visits Authorized [id number] New Request 03/08/2025 04/02/2026 1 1 Reason Comments Follow-up Hospital follow up, Had a heart attack Friday morning and he had 2 stents in. Wants to know exactly what the next steps are Care Teams (unrecognized sec tion and content) Scaffold Erector Relationship Specialty Start Date End Date Pratibha Ronquillo DO [address] [place] [address] [place] [address] PCP - General Family Medicine 05/04/21 Scaffold Erector Relationship Specialty Start Date End Date Pratibha Ronquillo DO [address] [place] [address] [place] [address] PCP - General Family Medicine 05/04/21 Scaffold Erector Relationship Specialty Start Date End Date Pratibha Ronquillo DO [address] [place] [address] [place] [address] PCP - General Family Medicine 05/04/21 Scaffold Erector Relationship Specialty Start Date End Date Pratibha Ronquillo DO [address] [place] [address] [place] [address] [phone] PCP - General Family Medicine 05/04/21 Scaffold Erector Relationship Specialty Start Date End Date Pratibha Ronquillo, DO [address] [place] [address] [place] [address] PCP - General Family Medicine 05/04/21 Scaffold Erector Relationship Specialty Start Date End Date Pratibha Ronquillo DO [address] [place] [address] [place] [address] PCP - General Family Medicine 05/04/21 Scaffold Erector Relationship Specialty Start Date End Date Pratibha Ronquillo, DO [address] [place] [address] [place] [address] PCP - General Family Medicine 05/04/21 Scaffold Erector Relationship Specialty Start Date End Date Pratibha Ronquillo, DO [address] [place] [address] [place] [address] PCP - General Family Medicine 05/04/21 Scaffold Erector Relationship Specialty Start Date End Date Pratibha Ronquillo, DO [address] [place] [address] [place] [address] PCP - General Family Medicine 05/04/21 Scaffold Erector Relationship Specialty Start Date End Date Pratibha Ronquillo DO [address] [place] [address] [place] [address] PCP - General Family Medicine 05/04/21 Scaffold Erector Relationship Specialty Start Date End Date Pratibha Ronquillo, DO [address] [place] [address] [place] [phone] PCP - General Family Medicine 05/04/21 Scaffold Erector Relationship Specialty Start Date End Date Pratibha Ronquillo, DO [address] [place] [address] [place] [address] PCP - General Family Medicine 05/04/21 Scaffold Erector Relationship Specialty Start Date End Date Pratibha Ronquillo, DO [address] [place] [address] [place] [address] PCP - General Family Medicine 05/04/21 Scaffold Erector Relationship Specialty Start Date End Date Pratibha Ronquillo, DO [address] [place] [address] [place] [address] PCP - General Family Medicine 05/04/21 Scaffold Erector Relationship Specialty Start Date End Date Pratibha Ronquillo, DO [address] [place] [address] [place] [phone] PCP - General Family Medicine 05/04/21 Scaffold Erector Relationship Specialty Start Date End Date Pratibha Ronquillo, DO [address] [place] [address] [place] [id number] PCP - General Family Medicine 05/04/21 Scaffold Erector Relationship Specialty Start Date End Date Pratibha Ronquillo, DO [address] [place] [address] [place] [id number] PCP - General Family Medicine 05/04/21 Scaffold Erector Relationship Specialty Start Date End Date Pratibha Ronquillo, DO [address] [place] [address] [place] [address] PCP - General Family Medicine 05/04/21 Scaffold Erector Relationship Specialty Start Date End Date Pratibha Ronquillo DO [address] [place] [address] [place] [address] PCP - General Family Medicine 05/04/21 Scaffold Erector Relationship Specialty Start Date End Date Pratibha Ronquillo DO [address] [place] [address] [place] [address] PCP - General Family Medicine 05/04/21 Team Status: Active Member Role Status Dates Dr. Pratibha Ronquillo DO Family Provider Active Dr. Pratibha Ronquillo DO Primary Care Provider Active Team Status: Inactive Member Role Status Dates Dr. Pratibha Ronquillo DO Primary Care Provider Active Dr. Omar Tian MD Attending Provider Active Team Status: Inactive Member Role Status Dates Dr. Pratibha Ronquillo DO Primary Care Provider, Attendin g Provider Active Scaffold Erector Relationship Specialty Start Date End Date Pratibha Ronquillo DO [address] [place] [address] [place] [address] PCP - General Family Medicine 05/04/21 Scaffold Erector Relationship Specialty Start Date End Date Pratibha Ronquillo DO [address] [place] [address] [place] [address] PCP - General Family Medicine 05/04/21 Scaffold Erector Relationship Specialty Start Date End Date Pratibha Ronquillo DO [address] [place] [address] [place] [address] PCP - General Family Medicine 05/04/21 Scaffold Erector Relationship Specialty Start Date End Date Pratibha Ronquillo DO [address] [place] [address] [place] [address] PCP - General Family Medicine 05/04/21 Scaffold Erector Relationship Specialty Start Date End Date Pratibha Ronquillo DO [address] [place] [address] [place] [phone] PCP - General Family Medicine 05/04/21 Scaffold Erector Relationship Specialty Start Date End Date Pratibha Ronquillo [address] [place] [address] [place] [phone] PCP - General Family Medicine 05/04/21 Scaffold Erector Relationship Specialty Start Date End Date Pratibha Ronquillo [address] [place] [address] [place] [address] PCP - General Family Medicine 05/04/21 Team Status: Active Member Role Status Dates Dr. Pratibha Ronquillo DO Primary Care Provider Active Dr. Omar Tian MD Attending Provider, Referring P rovider Active Team Status: Inactive Member Role Status Dates Dr. Pratibha Ronquillo DO Primary Care Provider Active Dr. Omar Tian MD Attending Provider, Referring P rovider Active Scaffold Erector Relationship Specialty Start Date End Date Pratibha Ronquillo [address] [place] [address] [place] [address] PCP - General Family Medicine 05/04/21 Scaffold Erector Relationship Specialty Start Date End Date Pratibha Ronquillo [address] [place] [address] [place] [phone] PCP - General Family Medicine 05/04/21 Team Status: Inactive Member Role Status Dates Dr. Pratibha Ronquillo DO Primary Care Provider Active Start: December 09, 2024 End: December 09, 2024 Dr. Omar Tian MD Attending Provider Active Start: December 09, 2024 End: December 09, 2024 Dr. Omar Tian MD Referring Provider Active Start: December 09, 2024 End: December 09, 2024 Scaffold Erector Relationship Specialty Start Date End Date Pratibha Ronquillo DO PCP - [facility] 05/04/21 Team Status: Active Member Role Status Dates Dr. Pratibha Ronquillo DO Primary Care Provider Active Team Status: Inactive Member Role Status Dates Dr. Pratibha Ronquillo DO Primary Care Provider Active Start: January 13, 2025 End: January 13, 2025 Dr. Pratibha Ronquillo DO Attending Provider Active Start: January 13, 2025 End: January 13, 2025 Dr. Pratibha Ronquillo DO Referring Provider Active Start: January 13, 2025 End: January 13, 2025 Dr. Luis Antonio Arias MD Other Provider Active St art: January 13, 2025 End: January 13, 2025 Team Status: Active Member Role Status Dates Dr. Pratibha Ronquillo DO Primary Care Provider Active Start: January 14, 2025 Dr. Pratibha Ronquillo DO Attending Provider Active Start: January 14, 2025 Dr. Pratibha Ronquillo DO Referring Provider Active Start: January 14, 2025 Dr. Luis Antonio Arias MD Other Provider Active St art: January 14, 2025 Scaffold Erector Relationship Specialty Start Date End Date Pratibha Ronquillo DO [facility] 05/04/21 Team Status: Inactive Member Role Status Dates Dr. Pratibha Ronquillo DO Primary Care Provider Active Start: January 14, 2025 End: January 14, 2025 Dr. Pratibha Ronquillo DO Attending Provider Active Start: January 14, 2025 End: January 14, 2025 Dr. Pratibha Ronquillo DO Referring Provider Active Start: January 14, 2025 End: January 14, 2025 Dr. Luis Antonio Arias MD Other Provider Active St art: January 14, 2025 End: January 14, 2025 Scaffold Erector Relationship Specialty Start Date End Date Pratibha Ronquillo DO PCP - General Family Medicine 05/04/21 Scaffold Erector Relationship Specialty Start Date End Date Pratibha Ronquillo DO PCP - General Family Medicine 05/04/21 Scaffold Erector Relationship Specialty Start Date End Date Pratibha Ronquillo DO PCP - General Family Medicine 05/04/21 Team Status: Inactive Member Role Status Dates Dr. Pratibha Ronquillo DO Primary Care Provider Active Start: February 02, 2025 End: February 02, 2025 Dr. Luis Antonio Arias MD Attending Provider Active Start: February 02, 2025 End: February 02, 2025 Dr. Luis Antonio Arias MD Referring Provider Active Start: February 02, 2025 End: February 02, 2025 Scaffold Erector Relationship Specialty Start Date End Date Pratibha Ronquillo DO PCP - General Family Medicine 05/04/21 Scaffold Erector Relationship Specialty Start Date End Date Pratibha Ronquillo DO PCP - General Family Medicine 05/04/21 Scaffold Erector Relationship Specialty Start Date End Date Pratibha Ronquillo DO PCP - General Family Medicine 05/04/21 Scaffold Erector Relationship Specialty Start Date End Date Pratibha Ronquillo PCP - General Family Medicine 05/04/21 Team Status: Active Member Role/Relationship Status Dates Dr. Pratibha Ronquillo DO Primary Care Provider Active Team Status: Inactive Member Role/Relationship Status Dates Dr. Pratibha Ronquillo DO Primary Care Provider Active Start: December 09, 2024 End: December 09, 2024 Dr. Omar Tian MD Attending Provider Active Start: December 09, 2024 End: December 09, 2024 Dr. Omar iTan MD Referring Provider Active Start: December 09, 2024 End: December 09, 2024 Team Status: Inactive Member Role/Relationship Status Dates Dr. Pratibha Ronquillo DO Primary Care Provider Active Start: January 13, 2025 End: January 13, 2025 Dr. Pratibha Ronquillo DO Attending Provider Active Start: January 13, 2025 End: January 13, 2025 Dr. Pratibha Ronquillo DO Referring Provider Active Start: January 13, 2025 End: January 13, 2025 Dr. Luis Antonio Arias MD Other Provider Active St art: January 13, 2025 End: January 13, 2025 Team Status: Inactive Member Role/Relationship Status Dates Dr. Pratibha Ronquillo DO Primary Care Provider Active Start: January 14, 2025 End: January 14, 2025 Dr. Pratibha Ronquillo DO Attending Provider Active Start: January 14, 2025 End: January 14, 2025 Dr. Pratibha Ronquillo DO Referring Provider Active Start: January 14, 2025 End: January 14, 2025 Dr. Luis Antonio Arias MD Other Provider Active St art: January 14, 2025 End: January 14, 2025 Team Status: Inactive Member Role/Relationship Status Dates Dr. Pratibha Ronquillo DO Primary Care Provider Active Start: February 02, 2025 End: February 02, 2025 Dr. Luis Antonio Arias MD Attending Provider Active Start: February 02, 2025 End: February 02, 2025 Dr. Luis Antonio Arias MD Referring Provider Active Start: February 02, 2025 End: February 02, 2025 Team Status: Inactive Member Role/Relationship Status Dates Dr. Pratibha Ronquillo DO Primary Care Provider Active Start: March 18, 2025 End: March 18, 2025 Dr. Randal Flores DO Referring Provider Active Start: March 18, 2025 End: March 18, 2025 Dr. Randal Flores DO Emergency Provider Active Start: March 18, 2025 End: March 18, 2025 Team Status: Inactive Member Role/Relationship Status Dates Dr. Pratibha Ronquillo DO Primary Care Provider Active Start: March 18, 2025 End: March 18, 2025 Dr. Randal Flores DO Attending Provider Active Start: March 18, 2025 End: March 18, 2025 Dr. Randal Flores DO Referring Provider Active Start: March 18, 2025 End: March 18, 2025 Dr. Randal Flores DO Emergency Provider Active Start: March 18, 2025 End: March 18, 2025 Team Status: Active Member Role/Relationship Status Dates Dr. Pratibha Ronquillo DO Primary Care Provider Active Start: March 18, 2025 Dr. Randal Alexandre MD Attending Provider Active S tart: March 18, 2025 Team Status: Active Member Role/Relationship Status Dates Dr. Pratibha Ronquillo DO Primary Care Provider Active Start: March 30, 2025 Bony Garcia MD Attending Provider Active Sta rt: March 30, 2025 Bony Garcia MD Referring Provider Active Sta rt: March 30, 2025 Team Status: Inactive Member Role/Relationship Status Dates Dr. Pratibha Ronquillo DO Primary Care Provider Active Start: April 01, 2025 End: April 02, 2025 Dr. Vince Harding MD Emergency Provider Active Start: April 01, 2025 End: April 02, 2025 Team Status: Inactive Member Role/Relationship Status Dates Dr. Pratibha Ronquillo DO Primary Care Provider Active Start: March 30, 2025 End: March 30, 2025 Bony Garcia MD Attending Provider Active Sta rt: March 30, 2025 End: March 30, 2025 Bony Garcia MD Referring Provider Active Sta rt: March 30, 2025 End: March 30, 2025 Scaffold Erector Relationship Specialty Start Date End Date Pratibha Ronquillo DO PCP - General Family Medicine 05/04/21 Scaffold Erector Relationship Specialty Start Date End Date Pratibha Ronquillo DO PCP - General Family Medicine 05/04/21 Team Status: Inactive Member Role/Relationship Status Dates Dr. Pratibha Ronqiullo DO Primary Care Provider Active Start: January 13, 2025 End: January 13, 2025 Dr. Pratibha Ronquillo DO Attending Provider Active Start: January 13, 2025 End: January 13, 2025 Dr. Pratibha Ronquillo DO Referring Provider Active Start: January 13, 2025 End: January 13, 2025 Dr. Luis Antonio Arias MD Other Provider Active St art: January 13, 2025 End: January 13, 2025 Team Status: Inactive Member Role/Relationship Status Dates Dr. Pratibha Ronquillo DO Primary Care Provider Active Start: January 14, 2025 End: January 14, 2025 Dr. Pratibha Ronquillo DO Attending Provider Active Start: January 14, 2025 End: January 14, 2025 Dr. Pratibha Ronquillo DO Referring Provider Active Start: January 14, 2025 End: January 14, 2025 Dr. Luis Antonio Arias MD Other Provider Active St art: January 14, 2025 End: January 14, 2025 Team Status: Inactive Member Role/Relationship Status Dates Dr. Pratibha Ronquillo DO Primary Care Provider Active Start: February 02, 2025 End: February 02, 2025 Dr. Luis Antonio Arias MD Attending Provider Active Start: February 02, 2025 End: February 02, 2025 Dr. Luis Antonio Arias MD Referring Provider Active Start: February 02, 2025 End: February 02, 2025 Team Status: Inactive Member Role/Relationship Status Dates Dr. Pratibha Ronquillo DO Primary Care Provider Active Start: March 18, 2025 End: March 18, 2025 Dr. Randal Flores DO Attending Provider Active Start: March 18, 2025 End: March 18, 2025 Dr. Randal Flores DO Referring Provider Active Start: March 18, 2025 End: March 18, 2025 Dr. Randal Flores DO Emergency Provider Active Start: March 18, 2025 End: March 18, 2025 Team Status: Active Member Role/Relationship Status Dates Dr. Pratibha Ronquillo DO Primary Care Provider Active Start: March 18, 2025 Dr. Randal Alexandre MD Attending Provider Active S tart: March 18, 2025 Dr. Randal Flores DO Referring Provider Active Start: March 18, 2025 Team Status: Inactive Member Role/Relationship Status Dates Dr. Pratibha Ronquillo DO Primary Care Provider Active Start: March 30, 2025 End: March 30, 2025 Bony Garcia MD Attending Provider Active Sta rt: March 30, 2025 End: March 30, 2025 Bony Garcia MD Referring Provider Active Sta rt: March 30, 2025 End: March 30, 2025 Team Status: Inactive Member Role/Relationship Status Dates Dr. Pratibha Ronquillo DO Primary Care Provider Active Start: April 01, 2025 End: April 02, 2025 Dr. Vince Harding MD Attending Provider Active Start: April 01, 2025 End: April 02, 2025 Dr. Vince Harding MD Emergency Provider Active Start: April 01, 2025 End: April 02, 2025 Team Status: Inactive Member Role/Relationship Status Dates Dr. Pratibha Ronquillo DO Primary Care Provider Active Start: May 06, 2025 End: May 08, 2025 Bony Garcia MD Attending Provider Active Sta rt: May 06, 2025 End: May 08, 2025 Bony Garcia MD Referring Provider Active Sta rt: May 06, 2025 End: May 08, 2025 Scaffold Erector Relationship Specialty Start Date End Date Pratibha Ronquillo DO PCP - General Family Medicine 05/04/21 Team Status: Active Member Role/Relationship Status Dates Dr. Pratibha Ronquillo DO Primary Care Provider Active Start: May 11, 2025 Bony Garcia MD Attending Provider Active Sta rt: May 11, 2025 Bony Garcia MD Referring Provider Active Sta rt: May 11, 2025 Scaffold Erector Relationship Specialty Start Date End Date Pratibha Ronquillo DO PCP - General Family Medicine 05/04/21 Scaffold Erector Relationship Specialty Start Date End Date Pratibha Ronquillo DO PCP - General Family Medicine 05/04/21 Scaffold Erector Relationship Specialty Start Date End Date Pratibha Ronquillo DO PCP - General Family Medicine 05/04/21 Scaffold Erector Relationship Specialty Start Date End Date Pratibha Ronquillo DO PCP - General Family Medicine 05/04/21 Goals (unrecognized section and content) Goals may be documented in a n alternate sectionGoals may be documented in an alternate sectionGoals may be documented in an alternate sectionGoals may be documented in an alternate sectionGoals may be documented in an alternate sectionGoals may be documented in an alternate sectionGoals may be documented in an alternate sectionGoals may be documented in an alternate sectionGoals may be documented in an alternate sectionGoals may be documented in an alternate sectionGoals may be documented in an alternate sectionGoals may be documented in an alternate sectionGoals may be documented in an alternate sectionGoals may be documented in an alternate sectionGoals may be documented in an alternate section Scheduled Active and Recently Administ ered Medications (unrecognized section and content) Medication Order 08/12/2022 08/13/2022 08/14/2022 aspirin chewable tablet 81 mg 81 mg, Oral, DAILY, First dose on Fri08/14/22 at 1030, Until Discontinued 1021 (Given - Provid er: Aurora Gandhi RN)1030 (Canceled Entry - Provider: System Discharge - Comment: Automatically canceled at discontinue of medication order) clindamycin (CLEOCIN) 900 mg in normal saline 50 ml premix IVPB (COMPLETED) 900 mg, Intravenous, Administer over 30 Minutes, ONCE, 1 dose, On Fri08/14/22 at 0900, 30 minutes prior to incision, Pre-op/Pre-Proc 0945 (Due)1055 (Give n - Provider: Mauriico Leon Jr., PROFESSOR OF VOICE-SUBMERSIBLE PILOT) Continuous Medication Order 08/12/2022 08/13/2022 08/14/2022 lactated ringers IV solution Intravenous, at 100 mL/hr, CONTINUOUS, Starting on Fri08/14/22 at 0900, Until Fri08/14/22 at 1712, Pre-op/Pre-Proc 0907 ($$New Bag$$ - Provider: Aurora Gandhi, MICHELLE)1229 (Paused - Provider: Mauricio Leon Jr., PROFESSOR OF VOICE-SUBMERSIBLE PILOT - Comment: Switch to gravity)1230 ($$New Bag$$ - Provider: Mauricio Leon Jr., PROFESSOR OF VOICE-SUBMERSIBLE PILOT) Ropivacaine HCl-NaCl 0.2-0.9 % On-Q pump Dona-neural, CONTINUOUS, Starting on Fri08/14/22 at 1330, Until Fri08/14/22 at 1712, 4th floor around 1330 thanks, Continuous infusion rate (mL/hr): 6, Patient dose (mL): 5, Interval (min): 30, Lockout dose (mL): 16, Lockout interval (min): 60, Procedure Date: 08/14/2022, ON-Q Pump Type: Tppevn-H-Qyct On Demand 1355 ($$New Bag$$ - Provider: Nick Melissa RN - Comment: Interscalene catheter site- tegaderm reinforced) PRN Medication Order 08/12/2022 08/13/2022 08/14/2022 fentaNYL (SUBLIMAZE) injection 25 mcg 25 mcg, Intravenous, Administer over 2 Minutes, EVERY 5 MINUTES NEEDED, 4 doses, Starting on Fri08/14/22 at 1312, Until Fri08/14/22 at 1712, Moderate Pain, Recovery hydrogen peroxide - sterile 0.03 topical solution 1 Application 1 Application, Topical, NEEDED, Starting on Fri08/14/22 at 0959, Until Fri08/14/22 at 1712, Other, surgery hydrogen peroxide - sterile 0.03 topical solution (CANCELED) NEEDED, Starting on Fri08/14/22 at 1034, Until Fri08/14/22 at 1324, Intra-op/Intra-Proc 1034 (Given - Provid er: Robin Mcguire MD) oxyCODONE (ROXICODONE) tablet 5 mg(Linked Group 1) 5 mg, Oral, EVERY 4 HOURS NEEDED, Starting on Fri08/14/22 at 1312, Until Fri08/14/22 at 1712, Moderate Pain, Severe Pain, Use as initial dose. Higher dose may be administered if lower dose was previously documented as ineffective and did not result in adverse effects (RR<10, negative change in RASS of 2 or more)., Recovery 1418 (Given - Provid er: Samantha Castañeda RN) oxyCODONE HCl (ROXICODONE) tablet 10 mg(Linked Group 1) 10 mg, Oral, EVERY 4 HOURS NEEDED, Starting on Fri08/14/22 at 1312, Until Fri08/14/22 at 1712, Moderate Pain, Severe Pain, Higher dose may be administered if lower dose was previously documented as ineffective and did not result in adverse effects (RR<10, negative change in RASS of 2 or more). Decrease back to lower dose if patient has adverse effects or no PRN use in previous 12 hours. Hold for sedation., Recovery 1418 (See Alternativ e - Provider: Samantha Castañeda RN) thrombin topical solution (CANCELED) NEEDED, Starting on Fri08/14/22 at 1034, Until Fri08/14/22 at 1324, Intra-op/Intra-Proc 1034 (Given - Provid er: Robin Mcguire MD) vancomycin (VANCOCIN) injection (CANCELED) NEEDED, Starting on Fri08/14/22 at 1033, Until Fri08/14/22 at 1324, Intra-op/Intra-Proc 1256 (Given - Provid er: Robin Mcguire MD) No Frequency Medication Order 08/12/2022 08/13/2022 08/14/2022 oxyCODONE (ROXICODONE) tablet 1 dose, Starting on Fri08/14/22 at 1417, Until Maria Luz 08/15/22 at 1430, Created by cabinet override, Recovery 1430 (Canceled Entry - Provider: System Discharge - Comment: Automatically canceled at discontinue of medication order) Linked Groups Order Group 1: oxyCODONE (ROXICODONE) tablet 5 mgJump to med 5 mg, Oral, EVERY 4 HOURS NEEDED, Starting on Fri08/14/22 at 1312, Until Fri08/14/22 at 1712, Moderate Pain, Severe Pain
Use as initial dose. Higher dose may be administered if lower dose was previously documented as ineffective and did not result in adverse effects (RR<10, negative change in RASS of 2 or more).
Recovery Or oxyCODONE HCl (ROXICODONE) tablet 10 mgJump to med 10 mg, Oral, EVERY 4 HOURS NEEDED, Starting on Fri08/14/22 at 1312, Until Fri08/14/22 at 1712, Moderate Pain, Severe Pain
Higher dose may be administered if lower dose was previously documented as ineffective and did not result in adverse effects (RR<10, negative change in RASS of 2 or more). Decrease back to lower dose if patient has adverse effects or no PRN use in previous 12 hours. Hold for sedation.
Recovery Scheduled Medication Order 02/01/2025 02/02/2025 02/03/2025 aspirin chewable tablet 324 mg (COMPLETED) 324 mg, Oral, ONCE, 1 dose, On Maria Luz 02/03/25 at 1000, Patient to receive at least 30 minutes prior to procedure. Instruct patient to chew and not swallow., Pre-op/Pre-Proc 1008 (Given - Provid er: Madiha Zheng RN) Continuous Medication Order 02/01/2025 02/02/2025 02/03/2025 Sodium chloride 0.9% IV solution Intravenous, at 100 mL/hr, CONTINUOUS, Starting on Maria Luz 02/03/25 at 1000, Until Maria Luz 02/03/25 at 1631, Pre-op/Pre-Proc 1025 ($$New Bag$$ - Provider: Madiha Zheng RN) Sodium chloride 0.9% IV solution 75 mL/hr, Intravenous, CONTINUOUS, Starting on Maria Luz 02/03/25 at 1230, Until Maria Luz 02/03/25 at 1429, Administer for Post Bin Piler Hydration to Prevent Acute Kidney Injury. , Post-op/Post-Proc 1229 (Rate/Dose Saucedo ge - Provider: Андрей Phillip RN) PRN Medication Order 02/01/2025 02/02/2025 02/03/2025 fentaNYL (SUBLIMAZE) injection (CANCELED) Administer over 2 Minutes, NEEDED, Starting on Maria Luz 02/03/25 at 1212, Until Maria Luz 02/03/25 at 1231, Intra-op/Intra-Proc 1212 (Given - Provid er: Lulu Jimenes RN)1216 (Given - Provider: Lulu Jimenes RN) Heparin injection (CANCELED) NEEDED, Starting on Maria Luz 02/03/25 at 1215, Until Maria Luz 02/03/25 at 1231, Intra-op/Intra-Proc 1215 (Given - Provid er: Anirudh Rutledge MD) iodixanol (VISIPAQUE) injection 320 mg/mL for [facility] IR (CANCELED) NEEDED, Starting on Maria Luz 02/03/25 at 1224, Until Maria Luz 02/03/25 at 1232, Intra-op/Intra-Proc 1224 (Given - Provid er: Anirudh Rutledge MD) Lidocaine 2 % injection (CANCELED) NEEDED, Starting on Maria Luz 02/03/25 at 1214, Until Maria Luz 02/03/25 at 1231, Intra-op/Intra-Proc 1214 (Given - Provid er: Anirudh Rutledge MD - Comment: right radial)1224 (Canceled Entry - Provider: Anirudh Rutledge MD) midazolam (VERSED) injection (CANCELED) NEEDED, Starting on Maria Luz 02/03/25 at 1212, Until Maria Luz 02/03/25 at 1231, Intra-op/Intra-Proc 1212 (Given - Provid er: Lulu Jimenes RN)1216 (Given - Provider: Lulu Jimenes RN) verapamil (ISOPTIN) injection (CANCELED) NEEDED, Starting on Maria Luz 02/03/25 at 1215, Until Maria Luz 02/03/25 at 1231, Intra-op/Intra-Proc 1215 (Given - Provid er: Anirudh Rutledge MD) Scheduled Medication Order 03/13/2025 03/14/2025 03/15/2025 Acetaminophen (TYLENOL) tablet 650 mg (COMPLETED)(Linked Group 1) 650 mg, Oral, 4 TIMES DAILY, 12 doses, First dose on Fri03/11/25 at 0900, Last dose on Fri03/13/25 at 2100, Maximum dose of acetaminophen is 4000 mg from all sources in 24 hours., Post-op/Post-Proc 0902 (Given - Provider: Joselyn Lacey RN)1316 (Given - Provider: Joselyn Lacey RN)163 (Given - Provider: Vannesa De Leon RN)2049 (Given - Provider: Tammy Lomeli RN) Aspirin tablet 325 mg 325 mg, Oral, DAILY, First dose on Fri03/11/25 at 0900, Until Discontinued, Post-op/Post-Proc 09 (Given - Provider: Joselyn Lacey RN) 09 (Given - Provider: Vannesa De Leon RN) 08 (Given - Provider: Reanna Souza RN) Atorvastatin (LIPITOR) tablet 20 mg 20 mg, Oral, DAILY AT BEDTIME, First dose on Fri03/11/25 at 2100, Until Discontinued 2049 (Given - Provider: Tammy Lomeli RN) 2049 (Given - Provider: Tammy Lomeli RN) balsam-castor oil (VENELEX) ointment 1 Application 1 Application, Topical, 3 TIMES DAILY, First dose on Fri03/10/25 at 2100, Until Discontinued, Apply to bony prominences (like back, heels, elbows, sacrum, etc.) to promote circulation., ICU 0902 (Given - Provider: Joselyn Lacey RN)1317 (Given - Provider: Joselyn Lacey RN)2050 (Not Given - Provider: Tammy Lomeli RN - Reason: Order Parameters not met) 09 (Not Given - Provider: Vannesa De Leon RN - Reason: Patient/family refused)1327 (Not Given - Provider: Vannesa De Leon RN - Reason: Patient/family refused)2050 (Not Given - Provider: Tammy Lomeli RN - Reason: Order Parameters not met) 08 (Not Given - Provider: Reanna Souza RN - Reason: Patient/family refused)1400 (Canceled Entry - Provider: System Discharge - Comment: Automatically canceled at discontinue of medication order) bisacodyl (DULCOLAX) suppository 10 mg 10 mg, Rectal, DAILY, First dose on Fri03/13/25 at 0900, Until Discontinued, Hold for loose stools or positive bowel movement in the last 48 hours., Post-op/Post-Proc 09 (Given - Provider: Joselyn Lacey RN) 09 (Not Given - Provider: Vannesa De Leon RN - Reason: Order Parameters not met - Comment: positive bm) 0821 (Not Given - Provider: Reanna Souza RN - Reason: Patient/family refused) Ezetimibe (ZETIA) 10 mg 10 mg, Oral, DAILY, First dose on Fri03/11/25 at 1300, Until Discontinued 09 (Given - Provider: Joselyn Lacey RN) 09 (Given - Provider: Vannesa De Leon RN) 08 (Given - Provider: Reanna Souza RN) furOSEmide (LASIX) injection 20 mg (COMPLETED) 20 mg, Intravenous, 2 TIMES DAILY BEFORE MEALS, 1 dose, First dose (after last reorder) on Fri03/13/25 at 0900, Administer by slow IV push at a rate not exceeding 40mg/min 09 (Given - Provider: Joselyn Lacey RN) furOSEmide (LASIX) tablet 40 mg 40 mg, Oral, DAILY, First dose on Fri03/14/25 at 0900, Until Discontinued 09 (Given - Provider: Vannesa De Leon RN) 08 (Given - Provider: Reanna Souza RN) Heparin injection 5,000 Units 5,000 Units, Subcutaneous, EVERY 8 HOURS (0800/1600/2200), First dose on Fri03/11/25 at 2200, Until Discontinued, Post-op/Post-Proc 0902 (Given - Provider: Joselyn Lacey RN)1636 (Given - Provider: Vannesa De Leon RN)2050 (Given - Provider: Tammy Lomeli RN) 0901 (Given - Provider: Vannesa De Leon RN)1654 (Given - Provider: Vannesa De Leon RN)2212 (Given - Provider: Tammy Lomeli RN) 0821 (Not Given - Provider: Reanna Souza RN - Reason: Patient/family refused - Comment: patient going home)1600 (Canceled Entry - Provider: System Discharge - Comment: Automatically canceled at discontinue of medication order) lidocaine 4 % patch 1 patch 1 patch, Transdermal, Administer over 12 Hours, EVERY 24 HOURS, First dose on Fri03/11/25 at 1300, Until Discontinued, Apply to chest tube site . 1320 (Patch Applied - Provider: Joselyn Lacey RN)2050 (Patch Removed - Provider: Tammy Lomeli RN - Comment: off on this bricklayer) 1317 (Patch Applied - Provider: Vannesa De Leon RN) 0111 (Patch Removed - Provider: Tammy Lomeli RN - Comment: patch already off on this bricklayer)1300 (Canceled Entry - Provider: System Discharge - Comment: Automatically canceled at discontinue of medication order) Magnesium hydroxide (concentrate) (MILK OF MAGNESIA) oral suspension 10 mL 10 mL, Oral, DAILY, First dose on Fri03/14/25 at 0900, Until Discontinued, 10 mL concentrate = 30 mL regular 0902 (Not Given - Provider: Vannesa De Leon RN - Reason: Patient/family refused - Comment: positive bm) 0822 (Not Given - Provider: Reanna Souza RN - Reason: Patient/family refused) Methocarbamol (ROBAXIN) tablet 500 mg 500 mg, Oral, EVERY 8 HOURS, First dose on Fri03/11/25 at 0600, Until Discontinued 0626 (Given - Provider: Min Maldonado RN)1320 (Given - Provider: Joselyn Lacey RN)2050 (Given - Provider: Tammy Lomeli RN) 0637 (Given - Provider: Tammy Lomeli RN)1439 (Given - Provider: Vannesa De Leon RN)2211 (Given - Provider: Tammy Lomeli RN) 0558 (Given - Provider: Tammy Lomeli RN)1400 (Canceled Entry - Provider: System Discharge - Comment: Automatically canceled at discontinue of medication order) Metoprolol (LOPRESSOR) tablet 12.5 mg (CANCELED) 12.5 mg, Oral, EVERY 12 HOURS, First dose (after last modification) on Fri03/12/25 at 2100, Until Discontinued, For all post-operative patients starting POD #1 for atrial fibrillation prophylaxis. Hold for Heart Rate less than 65 and Systolic Blood Pressure less than 100bpm or hold if patient is receiving inotropes (dobutamine, epinephrine, milrinone) or pressors (vasopressin, dopamine, norepinephrine, phenylephrine, isoproterenol)., Post-op/Post-Proc 011 (Held by provider - Provider: SYLVIE Castro - Reason: Other)0900 (Automatically Held - Provider: SYLVIE Castro)2100 (Automatically Held - Provider: SYLVIE Castro) 0900 (Automatically Held - Provider: Melody Fine APRN-AERONAUTICAL DRAFTER)1337 (Unheld by provider - Provider: Abiodun Capone, [facility])4158 (Given - Provider: Tammy Lomeli RN) Metoprolol (LOPRESSOR) tablet 12.5 mg(Linked Group 2) 12.5 mg, Oral, DAILY, First dose (after last modification) on Fri03/15/25 at 0900, Until Discontinued, For all post-operative patients starting POD #1 for atrial fibrillation prophylaxis. Hold for Heart Rate less than 65 and Systolic Blood Pressure less than 100bpm or hold if patient is receiving inotropes (dobutamine, epinephrine, milrinone) or pressors (vasopressin, dopamine, norepinephrine, phenylephrine, isoproterenol)., Post-op/Post-Proc 08 (Given - Provider: Reanna Souza RN) Multi-Vitamins tablet 1 tablet(Linked Group 3) 1 tablet, Per NG tube, DAILY, First dose on Fri03/11/25 at 0900, Until Discontinued, Crush for NG tube administration., Post-op/Post-Proc 09 (See Alternative - Provider: Joselyn Lacey RN) 09 (See Alternative - Provider: Vannesa De Leon RN) 0819 (See Alternative - Provider: Reanna Souza RN) Multi-Vitamins tablet 1 tablet(Linked Group 3) 1 tablet, Oral, DAILY, First dose on Fri03/11/25 at 0900, Until Discontinued, Use PO route if patient tolerating PO., Post-op/Post-Proc 09 (Given - Provider: Joselyn Lacey RN) 0902 (Given - Provider: Vannesa De Leon RN) 0819 (Given - Provider: Reanna Souza RN) Pantoprazole (PROTONIX) tablet DR 40 mg 40 mg, Oral, DAILY AT BEDTIME, First dose on Fri03/11/25 at 2100, Until Discontinued, Swallow whole; do not crush or chew., Indications: Continuation of Home Therapy 2049 (Given - Provider: Tammy Lomeli RN) 2049 (Given - Provider: Tammy Lomeli RN) Polyethylene glycol (MIRALAX) packet 17 g 17 g, Oral, 2 TIMES DAILY, First dose on Fri03/11/25 at 0900, Until Discontinued, Hold for loose stools or positive bowel movement in the last 48 hours., Post-op/Post-Proc 09 (Given - Provider: Joselyn Lacey RN)163 (Given - Provider: Vannesa De Leon RN) 09 (Given - Provider: Vannesa De Leon RN)165 (Not Given - Provider: Vannesa De Leon RN - Reason: Patient/family refused) 0822 (Not Given - Provider: Reanna Souza RN - Reason: Patient/family refused) Potassium chloride (K-DUR) tablet ER 20 mEq 20 mEq, Oral, DAILY, First dose on Fri03/14/25 at 0900, Until Discontinued 0901 (Given - Provider: Vannesa De Leon RN) 0820 (Given - Provider: Reanna Souza, MICHELLE) Senna (SENOKOT) tablet 8.6 mg 8.6 mg, Oral, EVERY 12 HOURS, First dose on Fri03/11/25 at 0900, Until Discontinued, Hold for loose stools or positive bowel movement in the last 48 hours., Post-op/Post-Proc 901 (Given - Provider: Joselyn Lacey RN)2049 (Given - Provider: Tammy Lomeli RN) 09 (Given - Provider: Vannesa De Leon RN)2049 (Given - Provider: Tammy Lomeli RN) 08 (Not Given - Provider: Reanna Souza RN - Reason: Patient/family refused) PRN Medication Order 03/13/2025 03/14/2025 03/15/2025 Acetaminophen (TYLENOL) oral solution 650 mg(Linked Group 4) 650 mg, Per NG tube, EVERY 4 HOURS NEEDED, Starting on Fri03/14/25 at 0000, Until Fri03/15/25 at 1626, Mild Pain, Moderate Pain, Severe Pain, Oral temp > 100.4 F, For mild, moderate, or severe pain (DVPRS) or CPOT greater than 2. Ok to give with opioid if frequency allows., Post-op/Post-Proc 2356 (See Alternative - Provider: Tammy Lomeli RN) 040 (See Alternative - Provider: Tammy Lomeli RN)204 (See Alternative - Provider: Tammy Lomeli RN) 011 (See Alternative - Provider: Tammy Lomeli RN)0558 (See Alternative - Provider: Tammy Lomeli RN) Acetaminophen (TYLENOL) tablet 650 mg(Linked Group 4) 650 mg, Oral, EVERY 4 HOURS NEEDED, Starting on 03/14/25 at 0000, Until Fri03/15/25 at 1626, Mild Pain, Moderate Pain, Severe Pain, Oral temp > 100.4 F, For mild, moderate, or severe pain (DVPRS) or CPOT greater than 2. Ok to give with opioid if frequency allows., Post-op/Post-Proc 2357 (Given - Provider: Tammy Lomeli RN) 0409 (Given - Provider: Tammy Lomeli RN)2049 (Given - Provider: Tammy Lomeli RN) 0111 (Given - Provider: Tammy Lomeli RN)0558 (Given - Provider: Tammy Lomeli RN) Albuterol (PROVENTIL) (2.5 MG/3ML) 0.083% inhalation solution 2.5 mg 2.5 mg, Nebulization, EVERY 6 HOURS NEEDED, Starting on Fri03/13/25 at 1804, Until Fri03/15/25 at 1626, Shortness of Breath 1826 (Given - Provider: Elena Chen RCP) Calcium Gluconate 10 % injection 2 g(Linked Group 5) 2 g, Intravenous, ADMINISTER DIRECTED, Starting on Fri03/10/25 at 2017, Until Fri03/15/25 at 1626, See admin instructions, 1. If ionized Calcium 4.1-4.5, give 2.0 gm of Calcium Gluconate IV Push over 10 minutes 2. If Calcium less than or equal to 4.0, give 4 gm Calcium Gluconate/250 mL NS IVPB over 1 hour and recheck 1 hour after completion of infusion. Repeat labs in AM. Extravasation Risk, Post-op/Post-Proc Calcium Gluconate 4 g in Sodium chloride 0.9%, with overfill 150 mL (total volume) IVPB(Linked Group 5) 4 g, Intravenous, Administer over 60 Minutes, ADMINISTER DIRECTED, Starting on Maria Luz 03/10/25 at 2016, Until Fri03/15/25 at 1626, See admin instructions, 1. If ionized Calcium 4.1-4.5, give 2.0 gm of Calcium Gluconate IV Push over 10 minutes 2. If Calcium less than or equal to 4.0, give 4 gm Calcium Gluconate/250 mL NS IVPB over 1 hour and recheck 1 hour after completion of infusion. Repeat labs in AM. Extravasation Risk, Post-op/Post-Proc guaiFENesin (ROBITUSSIN) oral solution 200 mg 200 mg, Oral, EVERY 4 HOURS NEEDED, Starting on 03/12/25 at 0544, Until Fri03/15/25 at 1626, Cough Magnesium sulfate 4 g in sterile water 50 ml premix IVPB 4 g, Intravenous, Administer over 4 Hours, ADMINISTER DIRECTED, Starting on Maria Luz 03/10/25 at 2016, Until Fri03/15/25 at 1626, Other, Magnesium replacement therapy:, 1. If Magnesium 1.7-2.4, Give 4 g Magnesium Sulfate IVPB. 2. If Magnesium less than or equal to 1.6, Give 8g Magnesium Sulfate IVPB. 3. Recheck Magnesium level 4 hours after completion of infusion., Post-op/Post-Proc 0317 ($$New Bag$$ - Provider: Min Maldonado RN)0430 (Rate/Dose Verify - Provider: Min Maldonado RN)0508 (Rate/Dose Verify - Provider: Min Maldonado RN)0605 (Rate/Dose Verify - Provider: Min Maldonado RN)1636 (Stopped - Provider: Vannesa De Leon RN) 0419 ($$New Bag$$ - Provider: Tammy Lomeli RN)0501 (Paused - Provider: Reanna Souza RN)0506 (Restarted - Provider: Reanna Souza RN)0724 (Stopped - Provider: Reanna Souza RN)0903 (Stopped - Provider: Vannesa De Leon RN) 0628 ($$New Bag$$ - Provider: Tammy Lomeli RN)0743 (Stopped - Provider: Reanna Souza RN) Ondansetron 4mg/2ml (ZOFRAN) injection 4 mg 4 mg, Intravenous, EVERY 4 HOURS NEEDED, Starting on Maria Luz 03/10/25 at 2016, Until Fri03/15/25 at 1626, Nausea / Vomiting, Post-op/Post-Proc oxyCODONE (ROXICODONE) tablet 5 mg(Linked Group 6) 5 mg, Oral, EVERY 4 HOURS NEEDED, Starting on 03/12/25 at 1756, Until Fri03/15/25 at 1626, Moderate Pain, Severe Pain, PRN for moderate pain or severe pain (DVPRS) or CPOT>2. Use first if PO/NG administration available., Post-op/Post-Proc 003 (Given - Provider: Tammy Lomeli RN)2049 (Given - Provider: Tammy Lomeli RN) 0111 (Given - Provider: Tammy Lomeli RN)1300 (Given - Provider: Reanna Souza RN) Potassium Bicarb-Citric Acid (Effer-K) 20 MEQ effervescent tablets for oral solution 20 mEq 20 mEq, Oral, ADMINISTER DIRECTED, Starting on 03/12/25 at 1956, Until Fri03/15/25 at 1626, Low Potassium / RENAL DOSAGE, 1. If Creatinine 2.0-2.5 mg/dL and/or urine output less than 30 mL/hour. 2. Potassium Less than 3.6, give 20 mEq Potassium Chloride, recheck in 8 hours. 3. If Creatinine greater than 2.5 consult critical care team for Potassium less than 4.0 for replacement orders. 4. If Potassium low, replace magnesium first if indicated. Do not swallow whole. Dissolve completely in 3-4 ounces of water or cold juice before drinking. If administering via J tube, dilute in sterile water, wait for tablet to stop fizzing, swirl the solution and draw into a syringe suitable for attaching to the tube. After administration, flush tube with 15-30 ml water., Post-op/Post-Proc Potassium Bicarb-Citric Acid (Effer-K) 20 MEQ effervescent tablets for oral solution 20-60 mEq 20-60 mEq, Oral, ADMINISTER DIRECTED, Starting on 03/12/25 at 1956, Until Fri03/15/25 at 1626, Other, See administration instructions, 1. If Creatinine less than 2.0 mg/dL and/or urine output greater than 30 mL/hour. 2. If Potassium is 4.1-4.4, give 20 mEq Potassium Chloride oral. 3. If Potassium is 3.6-4.0, give 40 mEq Potassium Chloride oral. 4. If Potassium less than 3.6, give 60 mEq Potassium Chloride orally, recheck in 8 hours. 5. If Potassium low, replace Magnesium first if indicated. Do not swallow whole. Dissolve completely in 3-4 ounces of water or cold juice before drinking. If administering via J tube, dilute in sterile water, wait for tablet to stop fizzing, swirl the solution and draw into a syringe suitable for attaching to the tube. After administration, flush tube with 15-30 ml water., Post-op/Post-Proc 0543 (Given - Provider: Min Maldonado RN) Potassium chloride (K-DUR) tablet ER 20 mEq 20 mEq, Oral, ADMINISTER DIRECTED, Starting on 03/12/25 at 1956, Until Fri03/15/25 at 1626, See admin instructions, RENAL DOSAGE, 1. If Creatinine 2.0-2.5 mg/dL and/or urine output less than 30 mL/hour. 2. Potassium Less than 3.6, give 20 mEq Potassium Chloride, recheck in 8 hours. 3. If Creatinine greater than 2.5 consult critical care team for Potassium less than 4.0 for replacement orders. 4. If Potassium low, replace magnesium first if indicated., Post-op/Post-Proc Potassium chloride (K-DUR) tablet ER 20-60 mEq 20-60 mEq, Oral, ADMINISTER DIRECTED, Starting on 03/12/25 at 1956, Until Fri03/15/25 at 1626, See admin instructions, 1. If Creatinine less than 2.0 mg/dL and/or urine output greater than 30 mL/hour. 2. If Potassium is 4.1-4.4, give 20 mEq Potassium Chloride oral. 3. If Potassium is 3.6-4.0, give 40 mEq Potassium Chloride oral. 4. If Potassium less than 3.6, give 60 mEq Potassium Chloride orally, recheck in 8 hours. 5. If Potassium low, replace Magnesium first if indicated., Post-op/Post-Proc 0409 (Given - Provider: Tammy Lomeli RN) 0558 (Given - Provider: Tammy Lomeli RN) Sodium chloride 0.9% IV solution 250 mL Intravenous, at 20 mL/hr, NEEDED, Starting on Maria Luz 03/10/25 at 2017, Until Fri03/15/25 at 1626, Carrier Fluid - See Admin. Inst, 0.9NS to be used as carrier fluid for intermittent small volume or piggyback medication administration as needed. Infusion rate of the carrier fluid should be set at 20 mL/hr unless the rate as the intermittent medication is less than 20 mL/hr. For intermittent medications with a rate less than 20 mL/hr set the carrier fluid at that rate of the intermittent or piggy back medication., Post-op/Post-Proc Linked Groups Order Group 1: Acetaminophen (TYLENOL) tablet 650 mg (COMPLETED)Jump to med 650 mg, Oral, 4 TIMES DAILY, 12 doses, First dose on Fri03/11/25 at 0900, Last dose on Fri03/13/25 at 2100, Maximum dose of acetaminophen is 4000 mg from all sources in 24 hours., Post-op/Post-Proc Or Acetaminophen (TYLENOL) oral solution 650 mg (COMPLETED) 650 mg, Per NG tube, 4 TIMES DAILY, 12 doses, First dose on Fri03/11/25 at 0900, Last dose on Fri03/13/25 at 2100, Maximum dose of acetaminophen is 4000 mg from all sources in 24 hours., Post-op/Post-Proc Group 2: Metoprolol (LOPRESSOR) tablet 12.5 mgJump to med 12.5 mg, Oral, DAILY, First dose (after last modification) on Fri03/15/25 at 0900, Until Discontinued, For all post-operative patients starting POD #1 for atrial fibrillation prophylaxis. Hold for Heart Rate less than 65 and Systolic Blood Pressure less than 100bpm or hold if patient is receiving inotropes (dobutamine, epinephrine, milrinone) or pressors (vasopressin, dopamine, norepinephrine, phenylephrine, isoproterenol)., Post-op/Post-Proc Group 3: Multi-Vitamins tablet 1 tabletJump to med 1 tablet, Per NG tube, DAILY, First dose on Fri03/11/25 at 0900, Until Discontinued, Crush for NG tube administration., Post-op/Post-Proc Or Multi-Vitamins tablet 1 tabletJump to med 1 tablet, Oral, DAILY, First dose on Fri03/11/25 at 0900, Until Discontinued, Use PO route if patient tolerating PO., Post-op/Post-Proc Group 4: Acetaminophen (TYLENOL) tablet 650 mgJump to med 650 mg, Oral, EVERY 4 HOURS NEEDED, Starting on Fri03/14/25 at 0000, Until Fri03/15/25 at 1626, Mild Pain, Moderate Pain, Severe Pain, Oral temp > 100.4 F, For mild, moderate, or severe pain (DVPRS) or CPOT greater than 2. Ok to give with opioid if frequency allows., Post-op/Post-Proc Or Acetaminophen (TYLENOL) oral solution 650 mgJump to med 650 mg, Per NG tube, EVERY 4 HOURS NEEDED, Starting on 03/14/25 at 0000, Until Fri03/15/25 at 1626, Mild Pain, Moderate Pain, Severe Pain, Oral temp > 100.4 F, For mild, moderate, or severe pain (DVPRS) or CPOT greater than 2. Ok to give with opioid if frequency allows., Post-op/Post-Proc Group 5: Calcium Gluconate 10 % injection 2 gJump to med 2 g, Intravenous, ADMINISTER DIRECTED, Starting on Maria Luz 03/10/25 at 2017, Until Fri03/15/25 at 162, See admin instructions, 1. If ionized Calcium 4.1-4.5, give 2.0 gm of Calcium Gluconate IV Push over 10 minutes 2. If Calcium less than or equal to 4.0, give 4 gm Calcium Gluconate/250 mL NS IVPB over 1 hour and recheck 1 hour after completion of infusion. Repeat labs in AM. Extravasation Risk, Post-op/Post-Proc Or Calcium Gluconate 4 g in Sodium chloride 0.9%, with overfill 150 mL (total volume) IVPBJump to med 4 g, Intravenous, Administer over 60 Minutes, ADMINISTER DIRECTED, Starting on Fri03/10/25 at 2016, Until Fri03/15/25 at 1626, See admin instructions, 1. If ionized Calcium 4.1-4.5, give 2.0 gm of Calcium Gluconate IV Push over 10 minutes 2. If Calcium less than or equal to 4.0, give 4 gm Calcium Gluconate/250 mL NS IVPB over 1 hour and recheck 1 hour after completion of infusion. Repeat labs in AM. Extravasation Risk, Post-op/Post-Proc Group 6: oxyCODONE (ROXICODONE) tablet 5 mgJump to med 5 mg, Oral, EVERY 4 HOURS NEEDED, Starting on 03/12/25 at 1756, Until Fri03/15/25 at 1626, Moderate Pain, Severe Pain, PRN for moderate pain or severe pain (DVPRS) or CPOT>2. Use first if PO/NG administration available., Post-op/Post-Proc Scheduled Medication Order 04/03/2025 04/04/2025 04/05/2025 Acetaminophen (TYLENOL) tablet 975 mg 975 mg, Oral, EVERY 6 HOURS, First dose on 04/02/25 at 2230, Until Discontinued, Maximum dose of acetaminophen is 4000 mg from all sources in 24 hours. 0542 (Given - Provider: Lizabeth Vargas RN)1224 (Given - Provider: Karma Kessler, RN)1724 (Hold - Provider: Karma Kessler, MICHELLE - Reason: Order Parameters not met - Comment: Pt with cumulative overdose warning. dose not given at this time.)2320 (Given - Provider: Lizabeth Vargas RN) 0458 (Given - Provider: Lizabeth Vargas RN)1228 (Not Given - Provider: Silvino Gallardo RN - Reason: Patient not available)1312 (Given - Provider: Marcelle Moreno RN)1750 (Given - Provider: Silvino Gallardo, MICHELLE) 0036 (Given - Provider: Аднрей Hoyos, MICHELLE)0636 (Given - Provider: Андрей Hoyos, MICHELLE)1304 (Given - Provider: Quincy Garcia RN) albumin human 5 % injection 12.5 g (COMPLETED) 12.5 g, Intravenous, Administer over 60 Minutes, ONCE, 1 dose, On 04/04/25 at 1045, At [facility], in emergencies, administer as rapidly as necessary to improve clinical conditions. Rate of infusion is based on dose: 12.5g given over 30min, 25g given over 60min, 50g given over 120min., Indications: Fluid Resuscitation 1013 ($$New Bag$$ - Provider: Silvino Gallardo RN)1100 (Rate/Dose Verify - Provider: Silvino Gallardo RN)1112 (Stopped - Provider: Silvino Gallardo RN) aspirin chewable tablet 81 mg 81 mg, Oral, DAILY, First dose on 04/02/25 at 0945, Until Discontinued 0814 (Given - Provider: Silvino Gallardo RN) 0821 (Given - Provider: Silvino Gallardo RN) 0806 (Given - Provider: Quincy Garcia RN) Atorvastatin (LIPITOR) tablet 20 mg 20 mg, Oral, DAILY, First dose on 04/02/25 at 0900, Until Discontinued 0814 (Given - Provider: Silvino Gallardo RN) 0821 (Given - Provider: Silvino Gallardo RN) 0806 (Given - Provider: Quincy Garcia RN) Clopidogrel (PLAVIX) tablet 75 mg 75 mg, Oral, DAILY, First dose on 04/02/25 at 0915, Until Discontinued 0814 (Given - Provider: Silvino Gallardo RN) 0821 (Given - Provider: Silvino Gallardo RN) 08 (Given - Provider: Quincy Garcia RN) Ezetimibe (ZETIA) 10 mg 10 mg, Oral, DAILY, First dose on 04/02/25 at 0900, Until Discontinued 0815 (Given - Provider: Silvino Gallardo RN) 08 (Given - Provider: Silvino Gallardo RN) 08 (Given - Provider: Quincy Garcia RN) Gadobutrol (GADAVIST) 1 MMOL/ML injection 1-30 mL (COMPLETED) 1-30 mL, Intravenous, ONCE, 1 dose, On Fri04/04/25 at 1300, Extravasation Risk 1340 (Given - Radiology - Provider: Barbara Barraza) GI Cocktail (COMPLETED) Oral, ONCE, 1 dose, On Fri04/03/25 at 0400 0421 (Given - Provider: Lizabeth Vargas RN) Isosorbide mononitrate (IMDUR) tablet XL 30 mg (CANCELED) 30 mg, Oral, DAILY, First dose on Fri04/04/25 at 0900, Until Discontinued, Do not crush or chew. May be divided in half., On hold since Fri04/04/2025 at 1520 until manually unheld 0821 (Given - Provider: Silvino Gallardo RN)1520 (Held by provider - Provider: Janay Gonzalez PA-C - Reason: Other) 0900 (Automatically Held - Provider: Janay Gonzalez PA-C)1034 (Unheld by provider - Provider: Janay Gonzalez PA-C) Metoprolol (LOPRESSOR) tablet 25 mg (CANCELED) 25 mg, Oral, 2 TIMES DAILY, First dose (after last modification) on Fri04/03/25 at 0900, Until Discontinued, Hold for SBP < 100 or HR < 60 0814 (Given - Provider: Silvino Gallardo RN)1725 (Given - Provider: Karma Kessler, MICHELLE) 0821 (Given - Provider: Silvino Gallardo RN)1836 (Hold - Provider: Silvino Gallardo RN - Reason: Order Parameters not met - Comment: BP 98/60, MAP 73, HR 84) Metoprolol (LOPRESSOR) tablet 25 mg 25 mg, Oral, EVERY 12 HOURS, First dose (after last modification) on Fri04/04/25 at 2100, Until Discontinued, Hold for SBP < 100 or HR < 60 214 (Given - Provider: Андрей Hoyos RN - Comment: HR: 80BP:116/62) 08 (Given - Provider: Quincy Garcia RN) Pantoprazole (PROTONIX) tablet DR 40 mg 40 mg, Oral, DAILY, First dose on 04/02/25 at 0900, Until Discontinued, Swallow whole; do not crush or chew., Indications: Continuation of Home Therapy 0814 (Given - Provider: Silvino Gallardo RN) 0821 (Given - Provider: Silvino Gallardo RN) 08 (Given - Provider: Quincy Garcia RN) Polyethylene glycol (MIRALAX) packet 17 g 17 g, Oral, EVERY 12 HOURS, First dose on 04/02/25 at 0900, Until Discontinued, Hold for loose stools or positive bowel movement in the last 48 hours. 0813 (Not Given - Provider: Silvino Gallardo RN - Reason: Other - Comment: BM on 04/03)2003 (Not Given - Provider: Lizabeth Vargas RN - Reason: Order Parameters not met) 0823 (Not Given - Provider: Silvino Gallardo RN - Reason: Other - Comment: BM on 11/04)214 (Not Given - Provider: Андрей Hoyos RN - Reason: Patient/family refused) 0734 (Not Given - Provider: Quincy Garcia RN - Reason: Order Parameters not met) Senna (SENOKOT) tablet 8.6 mg(Linked Group 1) 8.6 mg, Oral, DAILY, First dose on 04/02/25 at 0900, Until Discontinued 0812 (Not Given - Provider: Silvino Gallardo RN - Reason: Other - Comment: BM on 04/03) 0824 (Not Given - Provider: Silvino Gallardo RN - Reason: Other - Comment: BM on 11/04) 0735 (Not Given - Provider: Quincy Garcia RN - Reason: Order Parameters not met) Continuous Medication Order 04/03/2025 04/04/2025 04/05/2025 Heparin 25,000 units in dextrose 5% 250 mL premix infusion (CANCELED) CONTINUOUS, Starting on 04/02/25 at 0645, Until Tu04/05/25 at 1034, INTERMEDIATE/CARDIAC SLIDING SCALE FOR PATIENTS EQUAL TO OR GREATER THAN 65KG: Initiate dose at 12 units/kg/hr. If PTT is less than 47, increase dose by 3 units/kg/hr. If PTT is 47-60, increase dose by 2 units/kg/hr. If PTT is 61-71, increase dose by 1 unit/kg/hr. If PTT is 72-95, no change. If PTT is 96-111, decrease dose by 1 unit/kg/hr. If PTT is 112-126, hold infusion for 60 minutes and decrease dose by 2 units/kg/hr. If PTT greater than 126, hold infusion and check PTT every 2 hours. Once PTT is in goal range or below, restart infusion at 3 units/kg/hr lower than the most recent dose. Note: Round PTT to nearest whole number (e.g. 70.5=71, 70.4=70)., Indications: Elevated tropoin 0129 (Rate/Dose Verify - Provider: Lizabeth Vargas RN)0225 (Rate/Dose Change - Provider: Lizabeth Vargas RN)0227 (Rate/Dose Verify - Provider: Lizabeth Varags RN)0839 (Paused - Provider: Silvino Gallardo RN)0844 (Restarted - Provider: Silvino Gallardo RN)0900 (Rate/Dose Verify - Provider: Silvino Gallardo RN)0922 (Rate/Dose Verify - Provider: Silvino Gallardo RN)1013 (Paused - Provider: Silvino Gallardo RN)1020 (Paused - Provider: Silvino Gallardo, RN)1024 (Restarted - Provider: Silvino Gallardo RN)1036 ($$New Bag$$ - Provider: Silvino Gallardo RN)1100 (Rate/Dose Verify - Provider: Silvino Gallardo RN)1300 (Rate/Dose Verify - Provider: Silvino Gallardo RN)1400 (Rate/Dose Verify - Provider: Silvino Gallardo RN)1424 (Paused - Provider: Silvino Gallardo RN)1439 (Paused - Provider: Silvino Gallardo RN)1455 (Restarted - Provider: Silvino Gallardo RN)1500 (Rate/Dose Verify - Provider: Silvino Gallardo RN)1545 (Rate/Dose Change - Provider: Silvino Gallardo RN) 0555 (Paused - Provider: Lizabeth Vargas RN)0655 (Rate/Dose Change - Provider: Lizabeth Vargas RN)0718 ($$New Bag$$ - Provider: Lizabeth Vargas RN)0731 (Paused - Provider: Lizabeth Vargas RN)0733 (Restarted - Provider: Lizabeth Vargas RN)0739 (Rate/Dose Verify - Provider: Lizabeth Vargas RN)0941 (Paused - Provider: Silvino Gallardo RN)0950 (Restarted - Provider: Silvino Gallardo RN)1050 (Paused - Provider: Silvino Gallardo RN)1052 (Restarted - Provider: Silvino Gallardo, RN)1100 (Rate/Dose Verify - Provider: Silvino Gallardo RN)1125 (Paused - Provider: Silvino Gallardo RN)1127 (Restarted - Provider: Silvino Gallardo, RN)1200 (Rate/Dose Verify - Provider: Silvino Gallardo RN)1224 (Stopped - Provider: Silvino Gallardo RN)1415 (Restarted - Provider: Silvino Gallardo RN)1500 (Rate/Dose Verify - Provider: Silvino Gallardo RN)1548 (Rate/Dose Verify - Provider: Silvino Gallardo RN - Comment: PTT 76.7 no change)1600 (Rate/Dose Verify - Provider: Silvino Gallardo RN)2224 (Rate/Dose Change - Provider: Андрей Hoyos RN) 0434 ($$New Bag$$ - Provider: Андрей Hoyos, RN)0800 (Rate/Dose Verify - Provider: Quincy Garcia, RN)1011 (Stopped - Provider: Quincy Garcia RN) nitroGLYCERIN in dextrose 5% 50 mg/250 ml premix infusion (CANCELED) 0-100 mcg/min (0-30 mL/hr), Intravenous, CONTINUOUS, Starting on 04/02/25 at 1400, Until 04/03/25 at 1707, Initiate at 10 mcg/min. Titrate by 10 mcg/min every 5 minutes for chest pain relief (spasm in [place]). Maintain SBP greater than 90 mmHg. Notify prescriber for inability to achieve goals at maximum dose of ordered range or for change in clinical condition. 0127 (Paused - Provider: Silvino Gallardo RN)0129 (Restarted - Provider: Silvino Gallardo RN)0250 (Paused - Provider: Silvino Gallardo RN)0254 (Restarted - Provider: Silvino Gallardo RN)0305 (Rate/Dose Change - Provider: Silvino Gallardo RN)0306 (Rate/Dose Verify - Provider: Palak Mcintosh RN - Comment: chest pain radiating to L shoulder/ chest and posterior shoulder blade, titrate up per provider [Action automatically changed])0315 (Rate/Dose Change - Provider: Palak Mcintosh RN - Comment: CP and L shoulder pain still present)0315 (Rate/Dose Verify - Provider: Silvino Gallardo RN)0322 (Rate/Dose Change - Provider: Palak Mcintosh RN)0322 (Rate/Dose Verify - Provider: Silvino Gallardo RN)0331 (Paused - Provider: Silvino Gallardo RN)0333 (Restarted - Provider: Silvino Gallardo RN)0402 (Rate/Dose Change - Provider: Palak Mcintosh RN - Comment: per provider since BP dropped, see MAR)0402 (Rate/Dose Verify - Provider: Silvino Gallardo RN)0824 (Rate/Dose Change - Provider: Silvino Gallardo RN)0836 (Paused - Provider: Silvino Gallardo RN)0838 (Restarted - Provider: Silvino Gallardo RN)0900 (Rate/Dose Verify - Provider: Silvino Gallardo RN)1014 (Rate/Dose Change - Provider: Silvino Gallardo RN)1100 (Rate/Dose Verify - Provider: Silvino Gallardo RN)1158 (Stopped - Provider: Silvino Gallardo RN)1159 (Stopped - Provider: Silvino Gallardo RN - Comment: pt denies chest pain, BP is 129/71, map 95, per DANIE Gustafson's verbal order) PRN Medication Order 04/03/2025 04/04/2025 04/05/2025 alum/mag hydrox.-simethicone oral suspension 30 mL 30 mL, Oral, EVERY 6 HOURS NEEDED, Starting on 04/02/25 at 0307, Until Fri04/05/25 at 1514, Indigestion, Per 5 mL is equivalent to: (Alum-Mag Hydroxide 200-225 mg and Simethicone 20 mg) and (Alum-Mag Hydroxide 200-200 mg and Simethicone 20 mg) Calcium Gluconate 10 % injection 2 g(Linked Group 2) 2 g, Intravenous, ADMINISTER DIRECTED, Starting on 04/02/25 at 0307, Until Fri04/05/25 at 1514, See admin instructions, 1. If ionized Calcium 4.1-4.5, give 2.0 gm of Calcium Gluconate IV Push over 10 minutes 2. If Calcium less than or equal to 4.0, give 4 gm Calcium Gluconate/250 mL NS IVPB over 1 hour and recheck 1 hour after completion of infusion. Repeat labs in AM. Extravasation Risk 0653 (See Alternative - Provider: Lizabeth Vargas RN)0726 (See Alternative - Provider: Silvino Gallardo RN)0731 (See Alternative - Provider: Silvino Gallardo RN)0736 (See Alternative - Provider: Silvino Gallardo RN)0739 (See Alternative - Provider: Silvino Gallardo RN)0800 (See Alternative - Provider: Silvino Gallardo RN) Calcium Gluconate 4 g in Sodium chloride 0.9%, with overfill 150 mL (total volume) IVPB(Linked Group 2) 4 g, Intravenous, Administer over 60 Minutes, ADMINISTER DIRECTED, Starting on 04/02/25 at 0307, Until Fri04/05/25 at 1514, See admin instructions, 1. If ionized Calcium 4.1-4.5, give 2.0 gm of Calcium Gluconate IV Push over 10 minutes 2. If Calcium less than or equal to 4.0, give 4 gm Calcium Gluconate/250 mL NS IVPB over 1 hour and recheck 1 hour after completion of infusion. Repeat labs in AM. Extravasation Risk 0653 ($$New Bag$$ - Provider: Lizabeth Vargas RN)0726 (Paused - Provider: Silvino Gallardo RN)0731 (Restarted - Provider: Silvino Gallardo RN)0736 (Paused - Provider: Silvino Gallardo RN)0739 (Restarted - Provider: Silvino Gallardo RN)0800 (Stopped - Provider: Silvino Gallardo RN) Magnesium sulfate 4 g in sterile water 50 ml premix IVPB 4 g, Intravenous, Administer over 4 Hours, ADMINISTER DIRECTED, Starting on 04/02/25 at 0307, Until Fri04/05/25 at 1514, Other, Magnesium replacement therapy:, 1. If Magnesium 1.7-2.4, Give 4 g Magnesium Sulfate IVPB. 2. If Magnesium less than or equal to 1.6, Give 8g Magnesium Sulfate IVPB. 3. Recheck Magnesium level 4 hours after completion of infusion. 0556 ($$New Bag$$ - Provider: Lizabeth Vargas RN)0651 (Paused - Provider: Silvino Gallardo RN)0653 (Restarted - Provider: Silvino Gallardo RN)0731 (Paused - Provider: Silvino Gallardo RN)0733 (Rate/Dose Change - Provider: Silvino Gallardo RN)0913 (Paused - Provider: Silvino Gallardo RN)0916 (Restarted - Provider: Silvino Gallardo RN)0938 (Paused - Provider: Silvino Gallardo RN)0950 (Restarted - Provider: Silvino Gallardo RN)0951 (Stopped - Provider: Silvino Gallardo RN)0951 (Stopped - Provider: Silvino Gallardo RN) 0642 ($$New Bag$$ - Provider: Андрей Hoyos RN)0800 (Rate/Dose Verify - Provider: Quincy Garcia, RN)1014 (Stopped - Provider: Quincy Garcia RN) oxyCODONE (ROXICODONE) tablet 5 mg(Linked Group 3) 5 mg, Oral, EVERY 4 HOURS NEEDED, Starting on 04/02/25 at 0307, Until Tu04/05/25 at 1514, Moderate Pain, Severe Pain, PRN for moderate pain or severe pain (DVPRS) or greater than 2.. Use first if PO/NG administration available. Potassium Bicarb-Citric Acid (Effer-K) 20 MEQ effervescent tablets for oral solution 20-60 mEq 20-60 mEq, Oral, ADMINISTER DIRECTED, Starting on 04/02/25 at 0311, Until Fri04/05/25 at 1514, Other, See administration instructions, 1. If Creatinine less than 2.0 mg/dL and/or urine output greater than 30 mL/hour. 2. If Potassium is 4.1-4.4, give 20 mEq Potassium Chloride oral. 3. If Potassium is 3.6-4.0, give 40 mEq Potassium Chloride oral. 4. If Potassium less than 3.6, give 60 mEq Potassium Chloride orally, recheck in 8 hours. 5. If Potassium low, replace Magnesium first if indicated. Do not swallow whole. Dissolve completely in 3-4 ounces of water or cold juice before drinking. If administering via J tube, dilute in sterile water, wait for tablet to stop fizzing, swirl the solution and draw into a syringe suitable for attaching to the tube. After administration, flush tube with 15-30 ml water. Potassium chloride (K-DUR) tablet ER 20-60 mEq 20-60 mEq, Oral, ADMINISTER DIRECTED, Starting on Fri04/02/25 at 0311, Until Fri04/05/25 at 1514, See admin instructions, 1. If Creatinine less than 2.0 mg/dL and/or urine output greater than 30 mL/hour. 2. If Potassium is 4.1-4.4, give 20 mEq Potassium Chloride oral. 3. If Potassium is 3.6-4.0, give 40 mEq Potassium Chloride oral. 4. If Potassium less than 3.6, give 60 mEq Potassium Chloride orally, recheck in 8 hours. 5. If Potassium low, replace Magnesium first if indicated. 0813 (Given - Provider: Silvino Gallardo RN) 0555 (Given - Provider: Lizabeth Vargas RN) Sodium chloride (PF) 0.9 % injection 1-100 mL (COMPLETED) 1-100 mL, Intravenous, ONCE NEEDED, 1 dose, Starting on Fri04/04/25 at 1258, Until Fri04/04/25 at 1340, Flush, MR Procedure 1340 (Given - Provider: Barbara Barraza) Linked Groups Order Group 1: Senna (SENOKOT) tablet 8.6 mgJump to med 8.6 mg, Oral, DAILY, First dose on Fri04/02/25 at 0900, Until Discontinued Or Senna (SENOKOT) tablet 8.6 mg (CANCELED) 8.6 mg, Per NG tube, DAILY, First dose on Fri04/02/25 at 0900, Until Discontinued Group 2: Calcium Gluconate 10 % injection 2 gJump to med 2 g, Intravenous, ADMINISTER DIRECTED, Starting on Fri04/02/25 at 0307, Until Fri04/05/25 at 1514, See admin instructions, 1. If ionized Calcium 4.1-4.5, give 2.0 gm of Calcium Gluconate IV Push over 10 minutes 2. If Calcium less than or equal to 4.0, give 4 gm Calcium Gluconate/250 mL NS IVPB over 1 hour and recheck 1 hour after completion of infusion. Repeat labs in AM. Extravasation Risk Or Calcium Gluconate 4 g in Sodium chloride 0.9%, with overfill 150 mL (total volume) IVPBJump to med 4 g, Intravenous, Administer over 60 Minutes, ADMINISTER DIRECTED, Starting on Fri25 at 0307, Until Fri04/05/25 at 1514, See admin instructions, 1. If ionized Calcium 4.1-4.5, give 2.0 gm of Calcium Gluconate IV Push over 10 minutes 2. If Calcium less than or equal to 4.0, give 4 gm Calcium Gluconate/250 mL NS IVPB over 1 hour and recheck 1 hour after completion of infusion. Repeat labs in AM. Extravasation Risk Group 3: oxyCODONE (ROXICODONE) tablet 5 mgJump to med 5 mg, Oral, EVERY 4 HOURS NEEDED, Starting on 04/02/25 at 0307, Until Fri04/05/25 at 1514, Moderate Pain, Severe Pain, PRN for moderate pain or severe pain (DVPRS) or greater than 2.. Use first if PO/NG administration available. Or oxyCODONE (ROXICODONE) tablet 5 mg (CANCELED) 5 mg, Per NG tube, EVERY 4 HOURS NEEDED, Starting on 04/02/25 at 0307, Until Fri04/03/25 at 1457, Moderate Pain, Severe Pain, PRN for moderate pain or severe pain (DVPRS) or CPOT greater than 2.. Use first if PO/NG administration available. Scheduled Medication Order 05/28/2025 05/29/2025 05/30/2025 aspirin chewable tablet 81 mg 81 mg, Oral, DAILY, First dose on 05/28/25 at 1115, Until Discontinued 1116 (Given - Provider: Ned Barcenas RN) 0833 (Given - Provider: Ned Barcenas RN) 0800 (Given - Provider: Rosetta Maier RN) Atorvastatin (LIPITOR) tablet 10 mg 10 mg, Oral, DAILY, First dose on 05/28/25 at 1115, Until Discontinued 1116 (Given - Provider: Ned Barcenas RN) 0833 (Given - Provider: Ned Barcenas RN) 1106 (Given - Provider: Rosetta Maier RN) Enoxaparin Sodium (LOVENOX) injection 40 mg (CANCELED)(Linked Group 1) 40 mg, Subcutaneous, DAILY, First dose on 05/28/25 at 1230, Until Discontinued, For SUBCUTANEOUS route ONLY: alternate injection sites between left and right abdominal wall, pinching location and avoiding area around navel. If unable to use abdominal sites, may use the front or side of thighs., Indications: DVT/PE prophylaxis 1445 (Given - Provider: Ned Barcenas RN - Comment: On hold pending second troponin level.) Ezetimibe (ZETIA) 10 mg 10 mg, Oral, DAILY, First dose on 05/28/25 at 1115, Until Discontinued 1241 (Given - Provider: Ned Barcenas RN) 0833 (Given - Provider: Ned Barcenas RN) 1106 (Given - Provider: Rosetta Maier, MICHELLE) GI Cocktail (COMPLETED) Oral, ONCE, 1 dose, On 05/29/25 at 1330 1442 (Given - Provider: Ned Barcenas RN) Heparin injection 4,000 Units (COMPLETED) 4,000 Units, Intravenous, ONCE, 1 dose, On 05/29/25 at 0930 1209 (Given - Provider: Ned Barcenas RN) Metoprolol succinate (TOPROL-XL) tablet XL 25 mg 25 mg, Oral, DAILY, First dose on 05/28/25 at 1115, Until Discontinued, Slow release product. Do not crush. Extended release can be cut in half. 1043 (Held by provider - Provider: Shira Oliveros MD - Reason: Other)1043 (Unheld by provider - Provider: Shira Oliveros MD)1116 (Given - Provider: Ned Barcenas RN) 0833 (Given - Provider: Ned Barcenas RN) 1106 (Given - Provider: Rosetta Maier RN) Pantoprazole (PROTONIX) tablet DR 40 mg 40 mg, Oral, DAILY, First dose on 05/28/25 at 1115, Until Discontinued, Swallow whole; do not crush or chew., Indications: Continuation of Home Therapy 1043 (Held by provider - Provider: Shira Oliveros MD - Reason: Other)1115 (Automatically Held)1157 (Unheld by provider - Provider: Shira Oliveros MD) 0833 (Given - Provider: Ned Barcenas RN) 1106 (Given - Provider: Rosetta Maier RN) Prasugrel HCl (EFFIENT) tablet 10 mg 10 mg, Oral, DAILY, First dose on 05/28/25 at 1115, Until Discontinued, This product should be maintained in original container. Contraindicated in history of TIA and stroke. 1242 (Given - Provider: Ned Barcenas, RN) 0834 (Given - Provider: Ned Barcenas, RN) 0911 (Given - Provider: Justyna De La Paz RN) Sulfur Hexafluoride Microsph (Lumason) 60.7-25 MG 2 mL (COMPLETED) 2 mL, Intravenous, ONCE, 1 dose, On 05/30/25 at 1230, FOR ECHO PROCEDURE ONLY - after reconstitution is 2mL administered as in intravenous bolus injection during echocardiography, during a single examination, a second injection of 2 mL may be administered to prolong contrast enhancement. Follow each Lumason injection with a intravenous flush using 5 mL of 0.9% sodium chloride injection., Echo Procedure 1214 (Given - Radiology - Provider: Anthony Austin RN) Continuous Medication Order 05/28/2025 05/29/2025 05/30/2025 Heparin 25,000 units in dextrose 5% 250 mL premix infusion (CANCELED) CONTINUOUS, Starting on 05/29/25 at 0930, Until Fri05/30/25 at 1129, INTERMEDIATE/CARDIAC SLIDING SCALE FOR PATIENTS EQUAL TO OR GREATER THAN 65KG: Initiate dose at 12 units/kg/hr. If PTT is less than 47, increase dose by 3 units/kg/hr. If PTT is 47-60, increase dose by 2 units/kg/hr. If PTT is 61-71, increase dose by 1 unit/kg/hr. If PTT is 72-95, no change. If PTT is 96-111, decrease dose by 1 unit/kg/hr. If PTT is 112-126, hold infusion for 60 minutes and decrease dose by 2 units/kg/hr. If PTT greater than 126, hold infusion and check PTT every 2 hours. Once PTT is in goal range or below, restart infusion at 3 units/kg/hr lower than the most recent dose. Note: Round PTT to nearest whole number (e.g. 70.5=71, 70.4=70)., Indications: Acute Coronary Syndrome, On hold since 05/30/2025 at 0845 until manually unheld 1208 ($$New Bag$$ - Provider: Ned Barcenas RN)1600 (Rate/Dose Verify - Provider: Ned Barcenas RN)1910 (Rate/Dose Change - Provider: Binh Cuello RN)1930 (Rate/Dose Verify - Provider: Binh Cuello RN) 0059 (Rate/Dose Verify - Provider: Binh Cuello RN)0137 (Rate/Dose Verify - Provider: Binh Cuello RN)0400 (Rate/Dose Verify - Provider: Binh Cuello RN)0707 ($$New Bag$$ - Provider: Binh Cuello RN)0759 (Stopped - Provider: Rosetta Maier RN - Comment: To procedure area)0800 (Hold - Provider: Justyna De La Paz RN - Reason: Other)0845 (Held by provider - Provider: Anirudh Rutledge MD - Reason: Other - Comment: To procedure area)1129 (Unheld by provider - Provider: Shabana Lama [facility]) Sodium chloride 0.9% IV solution 1.5 mL/kg/hr 97.7 kg Dosing weight (146.55 mL/hr, rounded to 146.6 mL/hr), Intravenous, CONTINUOUS, Starting on 05/30/25 at 1015, Until 05/30/25 at 1614, Administer for Post Bin Piler Hydration to Prevent Acute Kidney Injury. , Post-op/Post-Proc 1034 ($$New Bag$$ - Provider: Rosetta Maier RN)1410 ($$New Bag$$ - Provider: Rosetta Maier RN)1628 (Stopped - Provider: Rosetta Maier RN) PRN Medication Order 05/28/2025 05/29/2025 05/30/2025 Acetaminophen (TYLENOL) tablet 650 mg 650 mg, Oral, EVERY 4 HOURS NEEDED, Starting on 05/28/25 at 1240, Until 05/30/25 at 1908, Mild Pain, Moderate Pain, Severe Pain, Maximum dose of acetaminophen is 4000 mg from all sources in 24 hours. 1449 (Given - Provider: Ned Barcenas RN)1938 (Given - Provider: Binh Cuello RN) 0108 (Given - Provider: Binh Cuello RN)0619 (Given - Provider: Binh Cuello RN)1329 (Given - Provider: Ned Barcenas, MICHELLE)1735 (Given - Provider: Ned Barcenas RN) 0130 (Given - Provider: Binh Cuello RN) adenosine injection (CANCELED) NEEDED, Starting on Fri05/30/25 at 0940, Until Fri05/30/25 at 1004, Intra-op/Intra-Proc 0940 (Given - Provider: Jamar Farrell DO)0946 (Given - Provider: Jamar Farrell DO)0953 (Given - Provider: Jamar Farrell DO)0956 (Given - Provider: Jamar Farrell DO)0957 (Given - Provider: Jamar Farrell DO) calcium carbonate antacid tablet 648-1,296 mg 648-1,296 mg (1-2 tablet), Oral, 4 TIMES DAILY NEEDED, Starting on 05/29/25 at 2054, Until Fri05/30/25 at 1908, Indigestion 6 (Given - Provider: Binh Cuello RN) fentaNYL (SUBLIMAZE) injection (CANCELED) Administer over 2 Minutes, NEEDED, Starting on Fri05/30/25 at 0827, Until Fri05/30/25 at 1004, Intra-op/Intra-Proc 0827 (Given - Provider: Kirstin Thayer RN)0836 (Given - Provider: Kirstin Thayer RN)0909 (Given - Provider: Kirstin Thayer RN)0924 (Given - Provider: Kirstin Thayer RN) Heparin injection (CANCELED) NEEDED, Starting on Fri05/30/25 at 0842, Until Fri05/30/25 at 1004, Intra-op/Intra-Proc 0842 (Given - Provider: Jamar Farrell DO)0909 (Given - Provider: Kirstin Thayer RN)0924 (Given - Provider: Kirstin Thayer RN) hydrALAZINE (APRESOLINE) tablet 25 mg 25 mg, Oral, EVERY 8 HOURS NEEDED, Starting on Fri05/29/25 at 1746, Until Fri05/30/25 at 1908, Other, BP>160 or DBP>90 (notify MD prior to giving) 1752 (Given - Provider: Ned Barcenas, MICHELLE) iodixanol (VISIPAQUE) injection 320 mg/mL for [facility] IR (CANCELED) NEEDED, Starting on Fri05/30/25 at 1000, Until Fri05/30/25 at 1004, Intra-op/Intra-Proc 1000 (Given - Provider: Jamar Farrell DO) Lidocaine 2 % injection (CANCELED) NEEDED, Starting on Fri05/30/25 at 0828, Until Fri05/30/25 at 1004, Intra-op/Intra-Proc 0828 (Given - Provider: Gabo Shahid DO - Comment: left radial) magnesium oxide (MAG-OX) tablet 800 mg 800 mg, Per NG tube, ADMINISTER DIRECTED, Starting on Fri05/30/25 at 0637, Until Fri05/30/25 at 1908, See admin instructions, For Magnesium 1.6 - 2.0, give 800 mg of Magnesium oxide. Magnesium sulfate 4 g in sterile water 50 ml premix IVPB 4 g, Intravenous, Administer over 4 Hours, ADMINISTER DIRECTED, Starting on Fri05/30/25 at 0637, Until Fri05/30/25 at 1908, Other, Magnesium Replacement Therapy, If Magnesium less than 1.6, give 4 g Magnesium Sulfate IVPB over 4 hours (may give over 1 hour if arrhythmias present). Midazolam (VERSED) injection (CANCELED) NEEDED, Starting on Fri05/30/25 at 0827, Until Fri05/30/25 at 1004, Intra-op/Intra-Proc 0827 (Given - Provider: Kirstin Thayer RN)0836 (Given - Provider: Kirstin Thayer RN) nitroGLYCERIN (NITROSTAT) tablet SL 0.4 mg 0.4 mg, Sublingual, EVERY 5 MINUTES NEEDED, Starting on Fri05/29/25 at 1147, Until Fri05/30/25 at 1908, Chest pain, Maximum of three consecutive doses in 15 minutes. Do not chew, crush, or swallow sublingual tablet. Place under tongue and allow to dissolve. Alternately, may be placed in the buccal pouch. 1151 (Given - Provider: Ned Barcenas RN - Comment: charting updated.)1212 (Given - Provider: Ned Barcenas RN)2045 (Given - Provider: Binh Cuello RN)2209 (Given - Provider: Binh Cuello RN)221 (Given - Provider: Binh Cuello RN) 0058 (Given - Provider: Binh Cuello RN)011 (Given - Provider: Binh Cuello RN)011 (Given - Provider: Binh Cuello RN)0256 (Given - Provider: Binh Cuello RN)0345 (Given - Provider: Binh Cuello RN)035 (Given - Provider: Binh Cuello RN)0356 (Given - Provider: Binh Cuello RN) nitroGLYCERIN in D5W 200mcg/5mL syringe SOLN (CANCELED) NEEDED, Starting on Fri05/30/25 at 0842, Until Fri05/30/25 at 1004, Intra-op/Intra-Proc 0842 (Given - Provider: Jamar Farrell DO) Potassium Bicarb-Citric Acid (Effer-K) 20 MEQ effervescent tablets for oral solution 20-40 mEq 20-40 mEq, Per NG tube, ADMINISTER DIRECTED, Starting on Fri05/30/25 at 0637, Until Fri05/30/25 at 1908, Other, See administration instructions, If SCr 2.0 - 2.5 mg/dL 1. For Potassium 3.6-4.0, give 20 mEq potassium via enteral route. 2. If Potassium less than 3.6, give 40 mEq potassium via enteral route, recheck in AM. If SCr greater than 2.5 and potassium less than 4.0, Contact MD/LIP for replacement order Do not swallow whole. Dissolve completely in 3-4 ounces of water or cold juice before drinking. If administering via J tube, dilute in sterile water, wait for tablet to stop fizzing, swirl the solution and draw into a syringe suitable for attaching to the tube. After administration, flush tube with 15-30 ml water. Potassium Bicarb-Citric Acid (Effer-K) 20 MEQ effervescent tablets for oral solution 40-60 mEq 40-60 mEq, Per NG tube, ADMINISTER DIRECTED, Starting on 05/30/25 at 0637, Until Fri05/30/25 at 1908, Other, See admin instructions, If SCr less than 2.0 mg/dL 1. For Potassium 3.6 - 4.0, give 40 mEq of potassium via enteral route, recheck in the AM. 2. For Potassium less than 3.6, give 60 mEq potassium via enteral route, recheck in 8 hours. 3. If potassium is low please administer magnesium first if indicated. Do not swallow whole. Dissolve completely in 3-4 ounces of water or cold juice before drinking. If administering via J tube, dilute in sterile water, wait for tablet to stop fizzing, swirl the solution and draw into a syringe suitable for attaching to the tube. After administration, flush tube with 15-30 ml water. 0639 (Given - Provider: Binh Cuello RN) Potassium chloride (K-DUR) tablet ER 40-60 mEq (CANCELED) 40-60 mEq, Oral, ADMINISTER DIRECTED, Starting on 05/28/25 at 1012, Until Fri05/30/25 at 0637, See admin instructions, If Cr less than 2.0 mg/dL 1. For Potassium 3.6 - 4.0, give 40 mEq of Potassium Chloride orally, recheck in the AM. 2. For Potassium less than 3.6, give 60 mEq Potassium Chloride orally, recheck in 8 hours. 3. If potassium is low please administer magnesium first if indicated. 0619 (Given - Provider: Binh Cuello RN) Prasugrel HCl (EFFIENT) tablet (CANCELED) NEEDED, Starting on Fri05/30/25 at 0911, Until Fri05/30/25 at 1004, Intra-op/Intra-Proc 0911 (Given - Provider: Kirstin Thayer RN) Sodium chloride 0.9% IV solution 250 mL Intravenous, at 20 mL/hr, NEEDED, Starting on 05/28/25 at 1012, Until Fri05/30/25 at 1908, Carrier Fluid - See Admin. Inst, 250mL 0.9NS to be used as carrier fluid for intermittent small volume or piggyback medication administration as needed. Infusion rate of the carrier fluid should be set at 20 mL/hr unless the rate as the intermittent medication is less than 20 mL/hr. For intermittent medications with a rate less than 20 mL/hr set the carrier fluid at that rate of the intermittent or piggy back medication. verapamil (ISOPTIN) injection (CANCELED) NEEDED, Starting on Fri05/30/25 at 0842, Until Fri05/30/25 at 1004, Intra-op/Intra-Proc 0842 (Given - Provider: Jamar Farrell DO) Linked Groups Order Group 1: Enoxaparin Sodium (LOVENOX) injection 40 mg (CANCELED)Jump to med 40 mg, Subcutaneous, DAILY, First dose on Fri05/28/25 at 1230, Until Discontinued, For SUBCUTANEOUS route ONLY: alternate injection sites between left and right abdominal wall, pinching location and avoiding area around navel. If unable to use abdominal sites, may use the front or side of thighs., Indications: DVT/PE prophylaxis And PLATELET COUNT - baseline (CANCELED) Routine, ONE TIME, On Fri05/28/25 at 1157, For 1 occurrence, New collection And PLATELET COUNT (CANCELED) Routine, EVERY 3 DAYS AM LAB, First occurrence on Fri05/31/25 at 0500, Until Specified, New collection FOR RECORDS PERTAINING TO PATIENTS WHO ARE OR HAVE BEEN ENROLLED IN A CHEMICAL DEPENDENCY/SUBSTANCEABUSE PROGRAM, SOME INFORMATION MAY BE OMITTED. This clinical summary was aggregated from multiple sources. Caution should be exercised in using it in the provision of clinical care. This summary normalizes information from multiple sources, and as a consequence, information in this document may materially change the coding, format and clinical context of patient data. In addition, data may be omitted in some cases. CLINICAL DECISIONS SHOULD BE BASED ON THE PRIMARY CLINICAL RECORDS. [email or web address] provides no warranty or guarantee of the accuracy or completeness of information in this document.
== END | disposition home or self-care (01) ==
LOC: LABSPEC 16:59
PROVIDERS: PCP Family Medicine; Visit Provider Otolaryngology Otolaryngology/Facial Plastic Surgery
DX: J02.9 Acute pharyngitis, unspecified (principal)
CPT/HCPCS: 87070; 87205

== ENCOUNTER → 2025-06-10 | Outpatient (CLI) | payer MEDICARE, OTHER, SELFPAY ==
[2025-05-23 09:56] VITALS: BMI 30.9
[2025-06-10 10:18] LABS: Hematocrit 44.7 % (40-54); Hemoglobin 15.0 g/dL (13.0-16.5); Immature Granulocytes Count 0.070 X10^3/uL (0.0-0.0); Mean Corp Hgb Conc 33.6 g/dL (32-36); Mean Corpuscular Volume 88.9 fL (80-94); Mean Platelet Vol. 8.5 fl (6.2-12.0); NRBC Flagged by Analyzer 0 % (0-5); Platelet Count 277 K/mm3 (150-450); RBC Distribution Width CV 12.7 % (11.6-14.6); RBC Distribution Width SD 41.1 fl (35.1-43.9); Red Blood Count 5.03 M/mm3 (4.6-6.2); White Blood Count 11.8 K/mm3 (4.4-11.0)
[2025-06-10 10:37] LABS: Anion Gap 11 (5-15); BUN 25 mg/dL (4-19); BUN/Creat Ratio 18.9 RATIO (10-20); Calcium,Total 9.6 mg/dL (7.6-11.0); Carbon Dioxide 22.4 mmol/L (21.0-32.0); Chloride 102 mmol/L (98-108); Glucose 93 mg/dL (70-99); Magnesium 2.3 mg/dL (1.5-2.2); Potassium 4.8 mmol/L (3.3-5.1)
== END | disposition home or self-care (01) ==
LOC: LAB 09:54
PROVIDERS: PCP Family Medicine; Referring Provider Internal Medicine Cardiovascular Disease; Visit Provider Internal Medicine Cardiovascular Disease
DX: I25.119 Atherosclerotic heart disease of native coronary artery with unspecified angina pectoris (principal); I47.20 Ventricular tachycardia, unspecified; Z98.61 Coronary angioplasty status; I10 Essential (primary) hypertension
CPT/HCPCS: 36415; 80048; 83735; 84443; 85025

== ENCOUNTER 2025-06-20 09:58 | Outpatient (CLI) | payer MEDICARE, OTHER, SELFPAY ==
[2025-05-23 09:56] VITALS: BMI 30.9
[2025-06-20 10:50] LABS: Hematocrit 45.2 % (40-54); Hemoglobin 14.9 g/dL (13.0-16.5); Immature Granulocytes Count 0.080 X10^3/uL (0.0-0.0); Mean Corp Hgb Conc 33.0 g/dL (32-36); Mean Corpuscular Volume 89.9 fL (80-94); Mean Platelet Vol. 8.8 fl (6.2-12.0); NRBC Flagged by Analyzer 0 % (0-5); Platelet Count 263 K/mm3 (150-450); RBC Distribution Width CV 12.8 % (11.6-14.6); RBC Distribution Width SD 42.2 fl (35.1-43.9); Red Blood Count 5.03 M/mm3 (4.6-6.2); White Blood Count 12.9 K/mm3 (4.4-11.0)
[2025-06-20 11:29] LABS: Magnesium 2.3 mg/dL (1.5-2.2)
[2025-06-20 11:31] LABS: Anion Gap 11 (5-15); BUN 23 mg/dL (4-19); BUN/Creat Ratio 19.2 RATIO (10-20); Calcium,Total 9.2 mg/dL (7.6-11.0); Carbon Dioxide 23.7 mmol/L (21.0-32.0); Chloride 103 mmol/L (98-108); Glucose 80 mg/dL (70-99); Potassium 4.7 mmol/L (3.3-5.1)
== END 2025-06-20 23:59 | disposition home or self-care (01) ==
LOC: LAB 10:00
PROVIDERS: PCP Family Medicine; Referring Provider Internal Medicine Cardiovascular Disease; Visit Provider Internal Medicine Cardiovascular Disease
DX: I25.119 Atherosclerotic heart disease of native coronary artery with unspecified angina pectoris (principal); I47.20 Ventricular tachycardia, unspecified; Z98.61 Coronary angioplasty status; I10 Essential (primary) hypertension
CPT/HCPCS: 36415; 80048; 83735; 84443; 85025

== ENCOUNTER 2025-06-29 09:15 | Outpatient (RCR) | payer MEDICARE, OTHER, SELFPAY ==
[2025-05-23 09:56] VITALS: BMI 30.9
--- NOTE | 2025-06-21 07:18 | PCM.CR.ITP ---
Exercise - Initial Assessment Physician Prescribed Exercise Modalities: Treadmill, Schwinn Airdyne AD-7 and SciFit Stepper Nutrition - Initial Assessment Weight Mgt (Other Care) Height: 5 ft 11 in Weight:: 222 lb BMI: 30.9 Psychosocial - Initial Assess Referral to Behavioral Health PS - Interventions: Yes: Attend Stress Management Classes Exercise - 30-day Assessment Physician Prescribed Exercise Modalities: Treadmill, Schwinn Airdyne AD-7 and SciFit Stepper Exercise - 60-day Assessment Physician Prescribed Exercise Modalities: Treadmill, Schwinn Airdyne AD-7 and SciFit Stepper Exercise - 90-day Assessment Visit Date of Eval: 06/21/25 Session #:: 23 Physician Prescribed Exercise Modalities: Treadmill, Schwinn Airdyne AD-7 and SciFit Stepper Frequency: 3x/week for 12 weeks [36 sessions] Intensity: 60-80% of age predicted maximum heart rate reserve Duration: 30 - 45 minutes Current METSs:: 6.2 Target Heart Rate:: 92-122 Current RPE:: 12-13 Maximum Excercise HR:: 100 Resting Blood Pressure: 122/64 Maximum Exercise Blood Pressure: 130/78 EKG Type: NSR to ST with rare PVC Outcomes & Goals Goals:: Verbalizes understanding of THR, RPE & goal METS by session 6, Documents in home exercise log/reports 30 min aerobic 5 day/wk by DC, Demonstrates accurate pulse taking by DC and Other additional outcome/goals: see below Intervention & Plan Exercise Program Goals: Instruct on personal THR & RPE, Instruct on MET level & personal MET goal, Show patient to take own pulse /validate performance until accurate, Instruct on home exercise and Other additional plan/int Physical Activity Home Exercise Physical Activity - Home Exercise: Safe Exercise, Warm-up, Self-monitoring, Cool-Down, Home Exercise > 30 min Daily and Sitting Time <3 hours/daily Outcomes & Goals Outcomes/Goals: Demonstrates correct Warm-up/exercise Cool-Down (S3) if = 2.5 METs, Verbalizes symptoms of exercise intolerance by Session 3 (S3), Demonstrate safe equipment use (S3) & follows exercise prescrition (6) and Other: See below Intervention & Plan Plan/Intervention: Instruct warm-up & cool-down if exercising at > 2 METs, Instruct on symptoms of exercise intolerance & actions to take, Instruct & monitor on saf, Assess intial functional capacity & safety risk and Other See below 30-day Reassessments 30 day Reassessments:: Progressing Reassessment Notes & Comments:: Pt is working at 6.2 METS. Pt is getting another cath at [facility] on 06/30. Workloads not increased due to this. Exercise - Final/Discharge Physician Prescribed Exercise Modalities: Treadmill, Schwinn Airdyne AD-7 and SciFit Stepper Nutrition - 30-Day Assessment Weight Mgt (Other Care) Height: 5 ft 11 in Weight:: 222 lb BMI: 30.9 Nutrition - 60-Day Assessment Weight Mgt (Other Care) Height: 5 ft 11 in Weight:: 222 lb BMI: 30.9 Core - 30-Day Assessment Hypertension [place] [employer] Hypertension Guidelines Reassessment Notes & Comments:: Pt BP's are within AHA normal limits. Will continue to monitor and report to pt's physician if necessary, Core - Final Assessment Hypertension [place] [employer] Hypertension Guidelines Reassessment Notes & Comments:: Pt BP's are within AHA normal limits. Will continue to monitor and report to pt's physician if necessary, Core - 90 Day Assessment Visit Date of Eval: 06/21/25 Session #:: 23 Medication Compliance Preventative Medication(s):: Aspirin, Statin/lipid and Beta roberto H/O mental health issues: depression, anxiety, or addiction?: No Doesn’t believe in the benefits of treatment?: No Believes medications are unnecessary or harmful?: No Has a concern about medication side effects?: No Expresses concern over the cost of medications?: No Outcomes/Goals: Verbalizes medications,desired effect & common side effects @ DC, Pt self-reports following medication regimen, Keeps card in wallet w/medications listed by DC and Other additional outcome/goals: Interventions/plans: Instruct on medication effects & side effects, Review medication list w/patient every two weeks, Instruct importance of taking meds as ordered & assist problem solving and Other additional 30-day Reassessments:: Progressing Reassessment Notes & Comments:: 05/03 Metoprolol increased to 50 mg BID. Started Ranolazine 500 mg ER BID Tobacco Use Tobacco Use: Non-smoker Hypertension Hypertension Diagnosis:: Hypertension ICD-10 I10 Resting Blood Pressure:: 122/64 [place] [employer] Hypertension Guidelines Peak Exercise Blood Pressure:: 130/78 Outcomes/Goals: Able to verbalize/achieve optimal blood pressure <130/80, Incorporates diet changes & exercise for blood pressure control by DC and Other additional outcomes/goals Interventions/plan: Instruct on optimal blood pressure, hypertension & medications, Instruct on effects of sodium, alcohol, stress, exercise &hypertension and Other additional plan/interventions 30 day Reassessments:: Met Reassessment Notes & Comments:: Pt BP's are within AHA normal limits. Will continue to monitor and report to pt's physician if necessary, Psychosocial - 30-Day Assess Referral to Behavioral Health PS - Interventions: Yes: Attend Stress Management Classes Psychosocial - 60-Day Assess Referral to Behavioral Health PS - Interventions: Yes: Attend Stress Management Classes Psychosocial - 90-Day Assess VIsit Date of Eval: 06/21/25 Session #:: 23 History of previous Mental disease:: No Psychosocial Test Tool Used:: Upgrade, [employer] Aiot[employer] QOL Cardiac and PHQ-9 Questionnaire phq-9 Severity See PHQ-9 Score: 2 Referral to Behavioral Health PS - Interventions: Yes: Attend Stress Management Classes Outcomes/Goals: See list Psychosocial Outcomes/Goals:: ID's personal stressors & 2 strategies to manage stress by discharge and Other Additional outcome/goals: Intervention/Plan: See List Interventions/Plan:: Assess stressors,coping strategies & signs of derpression on admission, Instruct/assist pt to develop coping & personal stress Mgt strategies, Refer to Behavioral Health if appropriate, Refer to Physician if appropriate, Instruct patient to recognize signs & symptoms of depression, Instruct patient to recog and Other additional plan/intervention 30-day Reassessments: 30 day Reassessments:: Met Reassessment Notes & Comments:: Pt denies any psychosocial issues at this time. Will continue to monitor. Psychosocial - Final Assessmen Referral to Behavioral Health PS - Interventions: Yes: Attend Stress Management Classes Nutrition - 90-Day Assessment Program Goals Nutrition Program Goals Patient has diagnosis of Hyperlipidemia (ICD E78)?: Yes Visit Date of Eval: 06/21/25 Session #:: 23 (Nutrition survey score of 2.) Cholesterol/Lipids (Other Core Measures) Determine presence & major risk factors that modify LDL goal: Cigarette smoking, Hypertension or hypertensive medication, Low HDL cholesterol <40 mg/dL*, Family history of premature CHD in Male < 55 years: female <65 yearsFa and Age men > 45 years; women >/= 55 years Outcomes/Goals: Pt IDs own risk factors & lifestyle modifications by Session 10, Verbalizes symptoms of angina & response by session 3., Pt independently manages and Other Additional Outcomes/Goals: Intervention/Plan: Advocate for lipid panel cholesterol medication if applicable, Instruct on personal lipid levels & lipid goals/NCEP guidelines, Instruct on cholesterol and Other additional plan/int Diabetes (Other Core Measures) Diabetes Type: Not Applicable Weight Mgt (Other Care) Height: 5 ft 11 in Weight:: 222 lb BMI: 30.9 Diagnosis Overweight/Obesity BMI> 30% ICD-10 E66: Yes Diagnosis High BMI/Morbid Obesity BMI> 35% ICD-10 Z68: No Outcomes/Goals: Pt sets, maintains & shows weight loss goal & trend during rehab and Other additional outcomes/goals Intervention/Plan: Instruct on ideal BMI & set weight loss goal w/patient, Assist pt to ID & incorporate diet changes for weight loss by S9, Refer to Structured Weight Loss program as appropriate, Encourage goal of using 250-300dcal per session for weight loss and Other additional plan/interventions 30 day Reassessments:: Progressing Reassessment Notes & Comments:: Pt has attended nutrition class. Heart healthy low sodium diet encouraged. Healthy Eating Habits Will attend diet classes:: Yes Outcomes/Goals:: Consume diet rich in vegs,fruits,whole grain/high fiber,fish,lean meat, Limit sat/trans fats,cholesterol & added salts & sugars and Other additional outcome/goals: Intervention/Plan:: Assess current eating habits and Other Additional plan/interventions 30-day Reassessments:: Met Reassessment Notes & Comments:: Pt has attended nutrition class. Heart healthy low sodium diet encouraged. Food log encouraged for our review. Education Gave educational materials for:: Signs & symptoms of hypoglycemia, Signs & symptoms of hyperglycemia, Relate diabetes to coronary artery disease and Healthy eating Nutrition - Final Assessment Weight Mgt (Other Care) Height: 5 ft 11 in Weight:: 222 lb BMI: 30.9
[2025-06-21 07:31] VITALS: BP 122/64; BMI 30.9
--- NOTE | 2025-07-05 12:52 | PCM.CR.ITP ---
Exercise - Initial Assessment Physician Prescribed Exercise Modalities: Treadmill, Schwinn Airdyne AD-7 and SciFit Stepper Nutrition - Initial Assessment Program Goals Nutrition Program Goals Patient has diagnosis of Hyperlipidemia (ICD E78)?: Yes Weight Mgt (Other Care) Height: 5 ft 11 in Weight:: 224 lb 8 oz BMI: 31.3 Core - Initial Assessment Hypertension Resting Blood Pressure:: 96/60 [place] [employer] Hypertension Guidelines Psychosocial - Initial Assess Psychosocial Test phq-9 Severity See PHQ-9 Score: 2 Referral to Behavioral Health PS - Interventions: Yes: Attend Stress Management Classes Exercise - 30-day Assessment Physician Prescribed Exercise Modalities: Treadmill, Schwinn Airdyne AD-7 and SciFit Stepper Exercise - 60-day Assessment Physician Prescribed Exercise Modalities: Treadmill, Schwinn Airdyne AD-7 and SciFit Stepper Exercise - 90-day Assessment Physician Prescribed Exercise Modalities: Treadmill, Schwinn Airdyne AD-7 and SciFit Stepper Exercise - Final/Discharge Visit Date of Eval: 07/05/25 Session #:: 27 (Pt is being discharged due to recent cardiac stent. ) Physician Prescribed Exercise Modalities: Treadmill, Schwinn Airdyne AD-7 and SciFit Stepper Frequency: 3x/week for 12 weeks [36 sessions] Intensity: 60-80% of age predicted maximum heart rate reserve Duration: 30 - 45 minutes Current METSs:: 6.2 Target Heart Rate:: 92-122 Current RPE:: 11-12.5 Maximum Heart Rate:: 97 Resting Blood Pressure: 96/60 Maximum Exercise Blood Pressure: 132/80 EKG Type: NSR Outcomes & Goals Goals:: Verbalizes understanding of THR, RPE & goal METS by session 6, Documents in home exercise log/reports 30 min aerobic 5 day/wk by DC, Demonstrates accurate pulse taking by DC and Other additional outcome/goals: see below Intervention & Plan Exercise Program Goals: Instruct on personal THR & RPE, Instruct on MET level & personal MET goal, Show patient to take own pulse /validate performance until accurate, Instruct on home exercise and Other additional plan/int Outcomes & Goals Outcomes/Goals: Demonstrates correct Warm-up/exercise Cool-Down (S3) if = 2.5 METs, Verbalizes symptoms of exercise intolerance by Session 3 (S3), Demonstrate safe equipment use (S3) & follows exercise prescrition (6) and Other: See below Intervention & Plan Plan/Intervention: Instruct warm-up & cool-down if exercising at > 2 METs, Instruct on symptoms of exercise intolerance & actions to take, Instruct & monitor on saf, Assess intial functional capacity & safety risk and Other See below 30-day Reassessments 30 day Reassessments:: Progressing Nutrition - 30-Day Assessment Weight Mgt (Other Care) Height: 5 ft 11 in Weight:: 224 lb 8 oz BMI: 31.3 Nutrition - 60-Day Assessment Weight Mgt (Other Care) Height: 5 ft 11 in Weight:: 224 lb 8 oz BMI: 31.3 Core - Final Assessment Visit Date of Eval: 07/05/25 Session #:: 27 Medication Compliance Preventative Medication(s):: Aspirin, Statin/lipid and Beta roberto H/O mental health issues: depression, anxiety, or addiction?: No Doesn’t believe in the benefits of treatment?: No Believes medications are unnecessary or harmful?: No Has a concern about medication side effects?: No Expresses concern over the cost of medications?: No Outcomes/Goals: Verbalizes medications,desired effect & common side effects @ DC, Pt self-reports following medication regimen, Keeps card in wallet w/medications listed by DC and Other additional outcome/goals: Interventions/plans: Instruct on medication effects & side effects, Review medication list w/patient every two weeks, Instruct importance of taking meds as ordered & assist problem solving and Other additional Tobacco Use Tobacco Use: Non-smoker Hypertension Hypertension Diagnosis:: Hypertension ICD-10 I10 Resting Blood Pressure:: 96/60 [place] [employer] Hypertension Guidelines Peak Exercise Blood Pressure:: 132/80 Outcomes/Goals: Able to verbalize/achieve optimal blood pressure <130/80, Incorporates diet changes & exercise for blood pressure control by DC and Other additional outcomes/goals Interventions/plan: Instruct on optimal blood pressure, hypertension & medications, Instruct on effects of sodium, alcohol, stress, exercise &hypertension and Other additional plan/interventions 30 day Reassessments:: Met Tobacco Cessation Referral Smoking Cessation Referral:: No Individual Education/Counseling:: No Education Schedule Given:: Yes Core - 60-Day Assessment Hypertension Resting Blood Pressure:: 96/60 [place] [employer] Hypertension Guidelines Psychosocial - 30-Day Assess Referral to Behavioral Health PS - Interventions: Yes: Attend Stress Management Classes Psychosocial - 60-Day Assess Referral to Behavioral Health PS - Interventions: Yes: Attend Stress Management Classes Psychosocial - 90-Day Assess Referral to Behavioral Health PS - Interventions: Yes: Attend Stress Management Classes Psychosocial - Final Assessmen VIsit Date of Eval: 07/05/25 Session #:: 27 History of previous Mental disease:: No Psychosocial Test Tool Used:: [employer] QOL Cardiac and PHQ-9 Questionnaire phq-9 Severity See PHQ-9 Score: 2 Referral to Behavioral Health PS - Interventions: Yes: Attend Stress Management Classes Outcomes/Goals: See list Psychosocial Outcomes/Goals:: ID's personal stressors & 2 strategies to manage stress by discharge and Other Additional outcome/goals: Intervention/Plan: See List Interventions/Plan:: Assess stressors,coping strategies & signs of derpression on admission, Instruct/assist pt to develop coping & personal stress Mgt strategies, Refer to Behavioral Health if appropriate, Refer to Physician if appropriate, Instruct patient to recognize signs & symptoms of depression, Instruct patient to recog and Other additional plan/intervention 30-day Reassessments: 30 day Reassessments:: Met Nutrition - 90-Day Assessment Weight Mgt (Other Care) Height: 5 ft 11 in Weight:: 224 lb 8 oz BMI: 31.3 Nutrition - Final Assessment Program Goals Patient has diagnosis of Hyperlipidemia (ICD E78)?: Yes Visit Date of Assessment:: 07/05/25 Session #:: 27 (nutrition score of 2) Cholesterol/Lipids (Other Core Measures) Determine presence & major risk factors that modify LDL goal: Cigarette smoking, Hypertension or hypertensive medication, Low HDL cholesterol <40 mg/dL*, Family history of premature CHD in Male < 55 years: female <65 yearsFa and Age men > 45 years; women >/= 55 years Outcomes/Goals: Pt IDs own risk factors & lifestyle modifications by Session 10, Verbalizes symptoms of angina & response by session 3., Pt independently manages and Other Additional Outcomes/Goals: Intervention/Plan: Advocate for lipid panel cholesterol medication if applicable, Instruct on personal lipid levels & lipid goals/NCEP guidelines, Instruct on cholesterol and Other additional plan/int Weight Mgt (Other Care) Height: 5 ft 11 in Weight:: 224 lb 8 oz BMI: 31.3 Diagnosis Overweight/Obesity BMI> 30% ICD-10 E66: Yes Diagnosis High BMI/Morbid Obesity BMI> 35% ICD-10 Z68: No Outcomes/Goals: Pt sets, maintains & shows weight loss goal & trend during rehab and Other additional outcomes/goals Intervention/Plan: Instruct on ideal BMI & set weight loss goal w/patient, Assist pt to ID & incorporate diet changes for weight loss by S9, Refer to Structured Weight Loss program as appropriate, Encourage goal of using 250-300dcal per session for weight loss and Other additional plan/interventions Healthy Eating Habits Will attend diet classes:: Yes Intervention/Plan:: Assess current eating habits and Other Additional plan/interventions 30-day Reassessments:: Not Met Education Gave educational materials for:: Signs & symptoms of hypoglycemia, Signs & symptoms of hyperglycemia, Relate diabetes to coronary artery disease and Healthy eating
[2025-07-05 12:57] VITALS: BP 96/60
[2025-07-05 13:03] VITALS: BP 96/60; BMI 31.3
== END 2025-07-08 23:59 ==
LOC: CR 09:15
PROVIDERS: PCP Family Medicine; Referring Provider Thoracic Surgery (Cardiothoracic Vascular Surgery); Visit Provider Thoracic Surgery (Cardiothoracic Vascular Surgery)
DX: Z95.1 Presence of aortocoronary bypass graft (principal)
CPT/HCPCS: 93798

== ENCOUNTER → 2025-07-12 | Outpatient (CLI) | payer MEDICARE, OTHER, SELFPAY ==
[2025-07-05 13:03] VITALS: BMI 31.3
--- NOTE | 2025-07-12 10:03 | CR.HP_ITS ---
CR - History & Physical General Arrival date:: 07/12/25 Arrival time:: 10:03 Date of Referral:: 07/05/25 Date of CR Evaluation:: 07/12/25 Referring Physician: Dr. Saul Arias Primary Diagnosis: S/P drug eluding coronary artery stent History of Present Cardiac Event Onset Date PTCA or coronary stenting:: Yes (onset 06/30/2025) Medications Ambulatory Orders Medication Instructions Recorded nitroglycerin 0.4 mg sublingual 0.4 mg sublingual Q5M PRN Chest 03/27/17 tablet Pain pantoprazole 20 mg tablet,delayed 20 mg PO DAILY 02/09 release aspirin 81 mg tablet,delayed 81 mg PO DAILY 08/13/21 release (Adult Aspirin Regimen) acetaminophen 500 mg tablet 1,000 mg PO BID 02/18/22 naproxen sodium 220 mg tablet 440 mg PO BID 02/18/22 ezetimibe 10 mg tablet 5 mg (1/2 x 10 mg) PO .QOD # 45 tabs 09/11/22 atorvastatin 10 mg tablet 5 mg (1/2 x 10 mg) PO .COMPL EX #45 04/22/23 tabs Allergies Allergies Penicillins (PCN) Allergy (Verified 04/01/25 17:04) Itching ciprofloxacin (From Cipro) Adverse Reaction (Intermediate, Verified 04/01/25 17:04) Unknown muscle aches rosuvastatin (From Crestor) Adverse Reaction (Verified 04/01/25 17:04) Other simvastatin (From Zocor) Adverse Reaction (Verified 04/01/25 17:04) Other MUSCLE ACHES/JOINT PAIN Sleep Disorder Evaluation Hx of Sleep Apnea: Yes Do you snore loudly (louder than talking or can be heard through closed doors)?: No Do you often feel tired/ fatigued/ sleepy during daytime?: No Has anyone observed you stop breathing during sleep?: No History of Hypertension (for STOP score): Yes STOP Results: Negative Advanced Directives Advanced Directives Do you have a Healthcare Power of Stripping Machine Operator?: No Living Will: No Advance Directives Information Provided: No Advance Directives on File: No Past Medical History Covid-19 Screening Physicial Symptoms Other Clinical Concerns Exposure Risk Pertinent Comorbidities 65 years or older:: Yes Has a serious heart condition:: Yes Past Medical Illness Medical History Wears glasses Cancer History of steroid therapy Kidney stones High cholesterol Excessive bleeding Easy bruising Back pain History of diverticulitis Gastric reflux Former smoker Sleep apnea History of stress test Cardiology follow-up encounter History of heart attack Presence of stent in coronary artery (~05/23/09) Atherosclerotic heart disease of [place] coronary artery without angina pectoris Essential hypertension Old myocardial infarction Diverticulitis Arthritis Seasonal allergies Hemorrhoids Hx of squamous cell carcinoma of skin GO (obstructive sleep apnea) Hyperlipidemia CAD (coronary artery disease) Past Surgical History Past Surgical History (Updated 04/10/25 @ 00:01 by Ting Mora) Hx of CABG Z95.1 History of coronary artery stent placement Z95.5 X2 Hx of total hip arthroplasty Z96.649 RIGHT, 07/02/21 AT [facility] History of colonoscopy (~2017) Z98.890 Presence of coronary angioplasty implant and graft (~05/23/09) Z95.5 PCI/LILIANA to mid LAD 05/23/09 Hx of shoulder surgery Z98.890 2009 History of left heart catheterization Z98.890 05/2009 [facility] Hx of knee surgery Z98.890 Left- 2000 Family History Summary Family History Father Hypertension CAD (coronary artery disease) Mother CAD (coronary artery disease) Brother Cancer Skin cancer- Outside of anus Social History Smoking History Smoking Status: Former smoker Years Smokin Packs Smoked per Day: 1 (stopped February of this year.) Alcohol Use Alcohol Usage: Yes (rare) Occupation Occupation (List type of work in comments):: Retired Social Environment Status Marital Status: Current Living Arrangements Living Environment:: Spouse Children How many children do you have?: 1 Do any of your children live nearby?: Yes Safety Do you feel safe in your surroundings?: Yes Assistance Do you need any assistance at home?: no Review of Systems Review of Systems Hints Review of Present Symptoms: Reports Shortness of Breath with Exertion, Fatigue, Appetite - Normal, Appetite - Special Diet and Sleep - Normal; Denies Shortness of Breath at Rest, PVD, Operative Discomfort, Angina, Wound Healing, Dizziness/Lightheadedness, Heart Arrhythmia/Irregularities or Sexual Changes Pain Is Patient Pain Free?: Yes Risk Factor Assessment Chief Complaint Chief Complaint: S/P drug eluding coronary artery stent Vital Signs Blood Pressure: 96/60 Pulse Pulse Rate: 74 Hypertension Blood Pressure Sitting - Right Arm: 96/60 Obesity Height: 5 ft 11 in Weight:: 228 lb Weight in Pounds: 228.0 lbs Body Mass Index (BMI): 31.8 Physical Inactivity Physical Inactivity: Reg Exercise 30 min/day Risk Stratification Risk Guidelines: Moderate Risk: Risk Factor for Obesity, Risk Factor for Sedentary Lifestyle and Risk Factor for Depression and Highest Risk: Risk Factor for Smoking, Risk Factor for Dyslipidemia and Risk Factor for Hypertension For Smoking Smoking Risk Guidelines For Dyslipidemia Dyslipidemia Risk Guidelines For Diabetes Mellitus Diabetes Risk Guidelines For Obesity/Overweight Obesity/Overweight Risk Guidelines For Hypertension Hypertension Risk Guidelines For Sedentary Lifestyle Sedentary Lifestyle Risk Guidelines For Depression Depression Risk Guidelines Family History Family History Father Hypertension CAD (coronary artery disease) Mother CAD (coronary artery disease) Brother Cancer Motivation Motivation to Participate On a scale of 1 to 10, how prepared are you to commit to attending program?: 10 What do you see as barriers to successfully being able to complete the program?: nothing What do you see as the benefits of succesfully completing the program? In other words, what do you hope to get out of participating in the program?: more energy Are there issues you are dealing with that will interfere with completing the program?: no Do you have a spouse or signficant other, family or friends who will help support you to complete the program?: yes
--- NOTE | 2025-07-12 10:31 | PCM.CR.ITP ---
Diagnosis General Information Admitting Diagnosis: S/P drug eluding coronary artery stent Personal Learning Style:: Audio/Visual Barriers to Learning: No Barriers Stage of change r/t lifestyle modifications:: Contemplation Gave educational material for:: Treating Heart Disease, How The Heart Works, What it means to have Heart Disease, How Coronary Artery Disease is Diagnosed, Heart Procedures, What Heart Medications Do, Risk Factors & Modifications, Living an Active Life, Nutrition, Emotions & Heart Disease, Stress Management & Relaxation and Sleep Disorders & Heart Disease Education/Goals Cardiac Rehabilitation Goals Personal Goals: Initial Assessment: Improve energy level, Get back to work, or to resume activities faster, Improve muscle strength and endurance and Other goal: Scale for measuring improvement of personal goals Diagnosis & Disease Process Outcomes/Goals: Pt IDs own risk factors & lifestyle modifications by Session 10, Verbalizes symptoms of angina & response by session 3., Pt independently manages and Other Additional Outcomes/Goals: Plan/Interventions: Assist Pt to ID & engage in lifestyle modification to reduce CVD risk, Instruct on individual risk factors, Review symptoms of angina & emergency actions, Review secondary diagnosis & identify educational needs. and Other see comment 30 day Reassessments:: Not Met 30 day Reassessments:: Not Met 30 day Reassessments:: Not Met 30 day Reassessments:: Not Met Final Reassessments:: Not Met Safety Referral to Physical Therapy: No Referral to [facility] Case Management: No Fall Risk Assessed:: Yes Assistive Devices:: None Exercise - Initial Assessment Visit Date of Eval: 07/12/25 (initial eval) Mets: Pre-: >3 METS for 30 minutes by discharge, >5 METS for 30 minutes by discharge, >7 METS for 30 minutes by discharge and Unable to meet goal due to: (see comment below) Physician Prescribed Exercise Modalities: Treadmill, Rower, Schwinn Airdyne AD-7, SciFit Stepper, SciFit Pro-II Ergometer and SciFit Lateral Assistant General Manager Frequency: 3x/week for 12 weeks [36 sessions] Intensity: 60-80% of age predicted maximum heart rate reserve Duration: 30 - 45 minutes Current METSs:: 3 Target Heart Rate:: 91-114 EKG Type: NSR Outcomes & Goals Goals:: Verbalizes understanding of THR, RPE & goal METS by session 6, Documents in home exercise log/reports 30 min aerobic 5 day/wk by DC, Demonstrates accurate pulse taking by DC and Other additional outcome/goals: see below Intervention & Plan Exercise Program Goals: Instruct on personal THR & RPE, Instruct on MET level & personal MET goal, Show patient to take own pulse /validate performance until accurate, Instruct on home exercise and Other additional plan/int Physical Activity Home Exercise Physical Activity - Home Exercise: Safe Exercise, Warm-up, Self-monitoring, Cool-Down, Home Exercise > 30 min Daily and Sitting Time <3 hours/daily Outcomes & Goals Outcomes/Goals: Demonstrates correct Warm-up/exercise Cool-Down (S3) if = 2.5 METs, Verbalizes symptoms of exercise intolerance by Session 3 (S3), Demonstrate safe equipment use (S3) & follows exercise prescrition (6) and Other: See below Intervention & Plan Plan/Intervention: Instruct warm-up & cool-down if exercising at > 2 METs, Instruct on symptoms of exercise intolerance & actions to take, Instruct & monitor on saf, Assess intial functional capacity & safety risk and Other See below Nutrition - Initial Assessment Program Goals Nutrition Program Goals Patient has diagnosis of Hyperlipidemia (ICD E78)?: Yes Visit Date of Eval: 07/12/25 (initial eval. Nutrition survey score of 2.) Cholesterol/Lipids (Other Core Measures) Determine presence & major risk factors that modify LDL goal: Cigarette smoking, Hypertension or hypertensive medication, Low HDL cholesterol <40 mg/dL*, Family history of premature CHD in Male < 55 years: female <65 yearsFa and Age men > 45 years; women >/= 55 years Outcomes/Goals: Pt IDs own risk factors & lifestyle modifications by Session 10, Verbalizes symptoms of angina & response by session 3., Pt independently manages and Other Additional Outcomes/Goals: Intervention/Plan: Advocate for lipid panel cholesterol medication if applicable, Instruct on personal lipid levels & lipid goals/NCEP guidelines, Instruct on cholesterol and Other additional plan/int Diabetes (Other Core Measures) Diabetes Type: Not Applicable Weight Mgt (Other Care) Height: 5 ft 11 in Weight:: 228 lb BMI: 31.8 Diagnosis Overweight/Obesity BMI> 30% ICD-10 E66: Yes Diagnosis High BMI/Morbid Obesity BMI> 35% ICD-10 Z68: No Outcomes/Goals: Pt sets, maintains & shows weight loss goal & trend during rehab and Other additional outcomes/goals Intervention/Plan: Instruct on ideal BMI & set weight loss goal w/patient, Assist pt to ID & incorporate diet changes for weight loss by S9, Refer to Structured Weight Loss program as appropriate, Encourage goal of using 250-300dcal per session for weight loss and Other additional plan/interventions Healthy Eating Habits Will attend diet classes:: Yes Outcomes/Goals:: Consume diet rich in vegs,fruits,whole grain/high fiber,fish,lean meat, Limit sat/trans fats,cholesterol & added salts & sugars and Other additional outcome/goals: Intervention/Plan:: Assess current eating habits and Other Additional plan/interventions Education Gave educational materials for:: Signs & symptoms of hypoglycemia, Signs & symptoms of hyperglycemia, Relate diabetes to coronary artery disease and Healthy eating Core - Initial Assessment Visit Date of Eval: 07/12/25 (initial eval) Medication Compliance Preventative Medication(s):: Aspirin, Statin/lipid and Beta roberto H/O mental health issues: depression, anxiety, or addiction?: No Doesn’t believe in the benefits of treatment?: No Believes medications are unnecessary or harmful?: No Has a concern about medication side effects?: No Expresses concern over the cost of medications?: No Outcomes/Goals: Verbalizes medications,desired effect & common side effects @ DC, Pt self-reports following medication regimen, Keeps card in wallet w/medications listed by DC and Other additional outcome/goals: Interventions/plans: Instruct on medication effects & side effects, Review medication list w/patient every two weeks, Instruct importance of taking meds as ordered & assist problem solving and Other additional Tobacco Use Tobacco Use: Non-smoker How many cigarettes do you smoke per day?: 1 Years Smokin (stopped in February of this year) Outcomes/Goals: Smoking cessation achieved or maintained by discharge, Identify aids/strategies for achieving smoking cessation by session 6 and Other additional outcome/goals Interventions/plan: Instruct on effects of smoking & provide smoking cessation resource, Assist pt to set quit date & provide encouragement, Assist pt to develop strategies to achieve/maintain quit date, Assist pt w/nicotine replacement & medication for cessation success and Other additional plan/interventions Hypertension Hypertension Diagnosis:: Hypertension ICD-10 I10 Resting Blood Pressure:: 96/60 [place] [employer] Hypertension Guidelines Outcomes/Goals: Able to verbalize/achieve optimal blood pressure <130/80, Incorporates diet changes & exercise for blood pressure control by DC and Other additional outcomes/goals Interventions/plan: Instruct on optimal blood pressure, hypertension & medications, Instruct on effects of sodium, alcohol, stress, exercise &hypertension and Other additional plan/interventions Tobacco Cessation Referral Smoking Cessation Referral:: No Individual Education/Counseling:: No Education Schedule Given:: Yes Psychosocial - Initial Assess VIsit Date of Eval: 07/12/25 (initial eval) History of previous Mental disease:: No Psychosocial Test Tool Used:: [employer] QOL Cardiac and PHQ-9 Questionnaire phq-9 Severity See PHQ-9 Score: 2 Referral to Behavioral Health PS - Interventions: Yes: Attend Stress Management Classes Outcomes/Goals: See list Psychosocial Outcomes/Goals:: ID's personal stressors & 2 strategies to manage stress by discharge and Other Additional outcome/goals: Intervention/Plan: See List Interventions/Plan:: Assess stressors,coping strategies & signs of derpression on admission, Instruct/assist pt to develop coping & personal stress Mgt strategies, Refer to Behavioral Health if appropriate, Refer to Physician if appropriate, Instruct patient to recognize signs & symptoms of depression, Instruct patient to recog and Other additional plan/intervention Exercise - 30-day Assessment Physician Prescribed Exercise Modalities: Treadmill, Rower, Schwinn Airdyne AD-7, SciFit Stepper, SciFit Pro-II Ergometer and SciFit Lateral Assistant General Manager Exercise - 60-day Assessment Physician Prescribed Exercise Modalities: Treadmill, Rower, Schwinn Airdyne AD-7, SciFit Stepper, SciFit Pro-II Ergometer and SciFit Lateral Assistant General Manager Exercise - 90-day Assessment Physician Prescribed Exercise Modalities: Treadmill, Rower, Schwinn Airdyne AD-7, SciFit Stepper, SciFit Pro-II Ergometer and SciFit Lateral Assistant General Manager Exercise - Final/Discharge Physician Prescribed Exercise Modalities: Treadmill, Rower, Schwinn Airdyne AD-7, SciFit Stepper, SciFit Pro-II Ergometer and SciFit Lateral [place] Frequency: 3x/week for 12 weeks [36 sessions] Intensity: 60-80% of age predicted maximum heart rate reserve Current METSs:: 3 Target Heart Rate:: 91-114 Nutrition - 30-Day Assessment Weight Mgt (Other Care) Height: 5 ft 11 in Weight:: 228 lb BMI: 31.8 Nutrition - 60-Day Assessment Weight Mgt (Other Care) Height: 5 ft 11 in Weight:: 228 lb BMI: 31.8 Core - 30-Day Assessment Tobacco Use Years Smokin (stopped in February of this year) Core - Final Assessment Hypertension Resting Blood Pressure:: 96/60 [place] [employer] Hypertension Guidelines Core - 60-Day Assessment Hypertension Resting Blood Pressure:: 96/60 [place] [employer] Hypertension Guidelines Psychosocial - 30-Day Assess Referral to Behavioral Health PS - Interventions: Yes: Attend Stress Management Classes Psychosocial - 60-Day Assess Referral to Behavioral Health PS - Interventions: Yes: Attend Stress Management Classes Psychosocial - 90-Day Assess Referral to Behavioral Health PS - Interventions: Yes: Attend Stress Management Classes Psychosocial - Final Assessmen Psychosocial Test phq-9 Severity See PHQ-9 Score: 2 Referral to Behavioral Health PS - Interventions: Yes: Attend Stress Management Classes Nutrition - 90-Day Assessment Weight Mgt (Other Care) Height: 5 ft 11 in Weight:: 228 lb BMI: 31.8 Nutrition - Final Assessment Program Goals Patient has diagnosis of Hyperlipidemia (ICD E78)?: Yes Weight Mgt (Other Care) Height: 5 ft 11 in Weight:: 228 lb BMI: 31.8
[2025-07-12 10:37] VITALS: BMI 31.8
[2025-07-12 10:52] VITALS: BP 96/60
[2025-07-12 10:53] VITALS: BP 96/60; PULSE 74; BMI 31.8
== END | disposition home or self-care (01) ==
LOC: CR 10:01
PROVIDERS: PCP Family Medicine; Referring Provider Internal Medicine Cardiovascular Disease; Visit Provider Internal Medicine Cardiovascular Disease
DX: I25.119 Atherosclerotic heart disease of native coronary artery with unspecified angina pectoris (principal); Z95.5 Presence of coronary angioplasty implant and graft

== ENCOUNTER 2025-08-03 09:15 | Outpatient (RCR) | payer MEDICARE, OTHER, SELFPAY ==
[2025-07-12 10:37] VITALS: BMI 31.8
--- NOTE | 2025-08-03 10:44 | PCM.CR.ITP ---
Exercise - Initial Assessment Visit Session #:: 9 Physician Prescribed Exercise Modalities: Treadmill, Schwinn Airdyne AD-7 and SciFit Stepper Nutrition - Initial Assessment Weight Mgt (Other Care) Height: 5 ft 11 in Weight:: 228 lb 8 oz BMI: 31.8 Core - Initial Assessment Tobacco Use Years Smokin (Pt stopped in February of this year.) Psychosocial - Initial Assess Referral to Behavioral Health PS - Interventions: Yes: Attend Stress Management Classes Exercise - 30-day Assessment Visit Date of Eval: 08/03/25 Session #:: 9 Physician Prescribed Exercise Modalities: Treadmill, Schwinn Airdyne AD-7 and SciFit Stepper Frequency: 3x/week for 12 weeks [36 sessions] Intensity: 60-80% of age predicted maximum heart rate reserve Duration: 30 - 45 minutes Current METSs:: 4.7 Target Heart Rate:: 91-114 Current RPE:: 12-13 Maximum Excercise HR:: 106 Resting Blood Pressure: 90/60 Maximum Exercise Blood Pressure: 140/82 EKG Type: NSR to ST w/rare pac,pvc Outcomes & Goals Goals:: Verbalizes understanding of THR, RPE & goal METS by session 6, Documents in home exercise log/reports 30 min aerobic 5 day/wk by DC, Demonstrates accurate pulse taking by DC and Other additional outcome/goals: see below Intervention & Plan Exercise Program Goals: Instruct on personal THR & RPE, Instruct on MET level & personal MET goal, Show patient to take own pulse /validate performance until accurate, Instruct on home exercise and Other additional plan/int Physical Activity Home Exercise Physical Activity - Home Exercise: Safe Exercise, Warm-up, Self-monitoring, Cool-Down, Home Exercise > 30 min Daily and Sitting Time <3 hours/daily Outcomes & Goals Outcomes/Goals: Demonstrates correct Warm-up/exercise Cool-Down (S3) if = 2.5 METs, Verbalizes symptoms of exercise intolerance by Session 3 (S3), Demonstrate safe equipment use (S3) & follows exercise prescrition (6) and Other: See below Intervention & Plan Plan/Intervention: Instruct warm-up & cool-down if exercising at > 2 METs, Instruct on symptoms of exercise intolerance & actions to take, Instruct & monitor on saf, Assess intial functional capacity & safety risk and Other See below 30-day Reassessments 30 day Reassessments:: Progressing Reassessment Notes & Comments:: Pt oriented to equipment. RPE explained to pt. Pt demonstrates understanding in his daily sessions. Exercise - 60-day Assessment Physician Prescribed Exercise Modalities: Treadmill, Schwinn Airdyne AD-7 and SciFit Stepper Exercise - 90-day Assessment Physician Prescribed Exercise Modalities: Treadmill, Schwinn Airdyne AD-7 and SciFit Stepper Exercise - Final/Discharge Physician Prescribed Exercise Modalities: Treadmill, Schwinn Airdyne AD-7 and SciFit Stepper Nutrition - 30-Day Assessment Program Goals Nutrition Program Goals Patient has diagnosis of Hyperlipidemia (ICD E78)?: Yes Visit Date of Eval: 08/03/25 Session #:: 9 Cholesterol/Lipids (Other Core Measures) Determine presence & major risk factors that modify LDL goal: Cigarette smoking, Hypertension or hypertensive medication, Low HDL cholesterol <40 mg/dL*, Family history of premature CHD in Male < 55 years: female <65 yearsFa and Age men > 45 years; women >/= 55 years Outcomes/Goals: Pt IDs own risk factors & lifestyle modifications by Session 10, Verbalizes symptoms of angina & response by session 3., Pt independently manages and Other Additional Outcomes/Goals: Intervention/Plan: Advocate for lipid panel cholesterol medication if applicable, Instruct on personal lipid levels & lipid goals/NCEP guidelines, Instruct on cholesterol and Other additional plan/int Referral to dietitian:: No (Nutrition survey score of 2.) Diabetes (Other Core Measures) Diabetes Type: Not Applicable Weight Mgt (Other Care) Height: 5 ft 11 in Weight:: 228 lb 8 oz BMI: 31.8 Diagnosis Overweight/Obesity BMI> 30% ICD-10 E66: Yes Diagnosis High BMI/Morbid Obesity BMI> 35% ICD-10 Z68: No Outcomes/Goals: Pt sets, maintains & shows weight loss goal & trend during rehab and Other additional outcomes/goals Intervention/Plan: Instruct on ideal BMI & set weight loss goal w/patient, Assist pt to ID & incorporate diet changes for weight loss by S9, Refer to Structured Weight Loss program as appropriate, Encourage goal of using 250-300dcal per session for weight loss and Other additional plan/interventions 30 day Reassessments:: Progressing Reassessment Notes & Comments:: Pt has attended nutrition class. Pt understands the benefits of a hearth healthy low sodium diet. Pt encouraged to keep a food diary for our review. Healthy Eating Habits Will attend diet classes:: Yes Outcomes/Goals:: Consume diet rich in vegs,fruits,whole grain/high fiber,fish,lean meat, Limit sat/trans fats,cholesterol & added salts & sugars and Other additional outcome/goals: Intervention/Plan:: Assess current eating habits and Other Additional plan/interventions 30-day Reassessments:: Progressing Reassessment Notes & Comments:: Pt has attended nutrition class. Pt understands the benefits of a hearth healthy low sodium diet. Education Gave educational materials for:: Signs & symptoms of hypoglycemia, Signs & symptoms of hyperglycemia, Relate diabetes to coronary artery disease and Healthy eating Nutrition - 60-Day Assessment Weight Mgt (Other Care) Height: 5 ft 11 in Weight:: 228 lb 8 oz BMI: 31.8 Core - 30-Day Assessment Visit Date of Eval: 08/03/25 Session #:: 9 Medication Compliance Preventative Medication(s):: Aspirin, Statin/lipid and Beta roberto H/O mental health issues: depression, anxiety, or addiction?: No Doesn’t believe in the benefits of treatment?: No Believes medications are unnecessary or harmful?: No Has a concern about medication side effects?: No Expresses concern over the cost of medications?: No Outcomes/Goals: Verbalizes medications,desired effect & common side effects @ DC, Pt self-reports following medication regimen, Keeps card in wallet w/medications listed by DC and Other additional outcome/goals: Interventions/plans: Instruct on medication effects & side effects, Review medication list w/patient every two weeks, Instruct importance of taking meds as ordered & assist problem solving and Other additional Tobacco Use Tobacco Use: Non-smoker How many cigarettes do you smoke per day?: 1 Years Smokin (Pt stopped in February of this year.) Do you use smokeless tobacco?: No Outcomes/Goals: Smoking cessation achieved or maintained by discharge, Identify aids/strategies for achieving smoking cessation by session 6 and Other additional outcome/goals Interventions/plan: Instruct on effects of smoking & provide smoking cessation resource, Assist pt to set quit date & provide encouragement, Assist pt to develop strategies to achieve/maintain quit date, Assist pt w/nicotine replacement & medication for cessation success and Other additional plan/interventions 30-day Reassessments:: Met Reassessment Notes & Comments:: Pt is no longer smoking. Pt to attend smoking class. Hypertension Hypertension Diagnosis:: Hypertension ICD-10 I10 Resting Blood Pressure:: 96/60 [place] [employer] Hypertension Guidelines Peak Exercise Blood Pressure:: 140/82 Outcomes/Goals: Able to verbalize/achieve optimal blood pressure <130/80, Incorporates diet changes & exercise for blood pressure control by DC and Other additional outcomes/goals Interventions/plan: Instruct on optimal blood pressure, hypertension & medications, Instruct on effects of sodium, alcohol, stress, exercise &hypertension and Other additional plan/interventions 30 day Reassessments:: Progressing Reassessment Notes & Comments:: Pt's BP's are within AHA normal limits. Will continue to monitor and report to pt's physician if necessary. Tobacco Cessation Referral Smoking Cessation Referral:: No Individual Education/Counseling:: No Education Schedule Given:: Yes Psychosocial - 30-Day Assess VIsit Date of Eval: 08/03/25 Session #:: 9 History of previous Mental disease:: No Psychosocial Test Tool Used:: [employer] QOL Cardiac and PHQ-9 Questionnaire phq-9 Severity See PHQ-9 Score: 2 Referral to Behavioral Health PS - Interventions: Yes: Attend Stress Management Classes Outcomes/Goals: See list Psychosocial Outcomes/Goals:: ID's personal stressors & 2 strategies to manage stress by discharge and Other Additional outcome/goals: Intervention/Plan: See List Interventions/Plan:: Assess stressors,coping strategies & signs of derpression on admission, Instruct/assist pt to develop coping & personal stress Mgt strategies, Refer to Behavioral Health if appropriate, Refer to Physician if appropriate, Instruct patient to recognize signs & symptoms of depression, Instruct patient to recog and Other additional plan/intervention 30-day Reassessments: 30 day Reassessments:: Progressing Reassessment Notes & Comments:: Pt denies any psychosocial issues at this time. Pt to attend stress management class. Will reassess every 30 days. Psychosocial - 60-Day Assess Referral to Behavioral Health PS - Interventions: Yes: Attend Stress Management Classes Outcomes/Goals: See list Psychosocial Outcomes/Goals:: ID's personal stressors & 2 strategies to manage stress by discharge and Other Additional outcome/goals: Psychosocial - 90-Day Assess Referral to Behavioral Health PS - Interventions: Yes: Attend Stress Management Classes Psychosocial - Final Assessmen Referral to Behavioral Health PS - Interventions: Yes: Attend Stress Management Classes Nutrition - 90-Day Assessment Weight Mgt (Other Care) Height: 5 ft 11 in Weight:: 228 lb 8 oz BMI: 31.8 Nutrition - Final Assessment Weight Mgt (Other Care) Height: 5 ft 11 in Weight:: 228 lb 8 oz BMI: 31.8
[2025-08-03 10:51] VITALS: BP 90/60
[2025-08-03 10:59] VITALS: BP 96/60; BMI 31.8
== END 2025-08-07 23:59 ==
LOC: CR 09:15
PROVIDERS: PCP Family Medicine; Referring Provider Internal Medicine Cardiovascular Disease; Visit Provider Internal Medicine Cardiovascular Disease
DX: Z95.1 Presence of aortocoronary bypass graft (principal)
CPT/HCPCS: 93798

== ENCOUNTER 2025-09-07 09:15 | Outpatient (RCR) | payer MEDICARE, OTHER, SELFPAY ==
--- NOTE | 2025-08-31 09:58 | CR.ITP_ITS ---
Exercise - Initial Assessment Physician Prescribed Exercise Modalities: Treadmill, Schwinn Airdyne AD-7 and SciFit Stepper Nutrition - Initial Assessment Weight Mgt (Other Care) Height: 5 ft 11 in Weight:: 231 lb BMI: 32.2 Core - Initial Assessment Hypertension Resting Blood Pressure:: 126/82 [place] [employer] Hypertension Guidelines Psychosocial - Initial Assess Referral to Behavioral Health PS - Interventions: Yes: Attend Stress Management Classes Exercise - 30-day Assessment Physician Prescribed Exercise Modalities: Treadmill, Schwinn Airdyne AD-7 and SciFit Stepper Exercise - 60-day Assessment Visit Date of Eval: 08/31/25 Session #:: 18 Physician Prescribed Exercise Modalities: Treadmill, Schwinn Airdyne AD-7 and SciFit Stepper Frequency: 3x/week for 12 weeks [36 sessions] Intensity: 60-80% of age predicted maximum heart rate reserve Duration: 30 - 45 minutes Current METSs:: 5 Target Heart Rate:: 91-114 Current RPE:: 14-15 Maximum Excercise HR:: 126 Resting Blood Pressure: 148/90 Maximum Exercise Blood Pressure: 156/86 EKG Type: NSR to ST with rare PAC/PVC Outcomes & Goals Goals:: Verbalizes understanding of THR, RPE & goal METS by session 6, Documents in home exercise log/reports 30 min aerobic 5 day/wk by DC, Demonstrates accurate pulse taking by DC and Other additional outcome/goals: see below Intervention & Plan Exercise Program Goals: Instruct on personal THR & RPE, Instruct on MET level & personal MET goal, Show patient to take own pulse /validate performance until accurate, Instruct on home exercise and Other additional plan/int Physical Activity Home Exercise Physical Activity - Home Exercise: Safe Exercise, Warm-up, Self-monitoring, Cool-Down, Home Exercise > 30 min Daily and Sitting Time <3 hours/daily Outcomes & Goals Outcomes/Goals: Demonstrates correct Warm-up/exercise Cool-Down (S3) if = 2.5 METs, Verbalizes symptoms of exercise intolerance by Session 3 (S3), Demonstrate safe equipment use (S3) & follows exercise prescrition (6) and Other: See below Intervention & Plan Plan/Intervention: Instruct warm-up & cool-down if exercising at > 2 METs, Instruct on symptoms of exercise intolerance & actions to take, Instruct & monitor on saf, Assess intial functional capacity & safety risk and Other See below 30-day Reassessments 30 day Reassessments:: Progressing Reassessment Notes & Comments:: Proper warm up and cool down demonstrated and explained to pt. Pt is able to return demonstration in their daily sessions. Exercise - 90-day Assessment Physician Prescribed Exercise Modalities: Treadmill, Schwinn Airdyne AD-7 and SciFit Stepper Exercise - Final/Discharge Physician Prescribed Exercise Modalities: Treadmill, Schwinn Airdyne AD-7 and SciFit Stepper Nutrition - 30-Day Assessment Weight Mgt (Other Care) Height: 5 ft 11 in Weight:: 231 lb BMI: 32.2 Nutrition - 60-Day Assessment Program Goals Nutrition Program Goals Patient has diagnosis of Hyperlipidemia (ICD E78)?: Yes Visit Date of Eval: 08/31/25 Session #:: 18 (Nutrition survey score of 2.) Cholesterol/Lipids (Other Core Measures) Determine presence & major risk factors that modify LDL goal: Cigarette smoking, Hypertension or hypertensive medication, Low HDL cholesterol <40 mg/dL*, Family history of premature CHD in Male < 55 years: female <65 yearsFa and Age men > 45 years; women >/= 55 years Outcomes/Goals: Pt IDs own risk factors & lifestyle modifications by Session 10, Verbalizes symptoms of angina & response by session 3., Pt independently manages and Other Additional Outcomes/Goals: Intervention/Plan: Advocate for lipid panel cholesterol medication if applicable, Instruct on personal lipid levels & lipid goals/NCEP guidelines, Instruct on cholesterol and Other additional plan/int Diabetes (Other Core Measures) Diabetes Type: Not Applicable Weight Mgt (Other Care) Height: 5 ft 11 in Weight:: 231 lb BMI: 32.2 Diagnosis Overweight/Obesity BMI> 30% ICD-10 E66: Yes Diagnosis High BMI/Morbid Obesity BMI> 35% ICD-10 Z68: No Outcomes/Goals: Pt sets, maintains & shows weight loss goal & trend during rehab and Other additional outcomes/goals Intervention/Plan: Instruct on ideal BMI & set weight loss goal w/patient, Assist pt to ID & incorporate diet changes for weight loss by S9, Refer to Structured Weight Loss program as appropriate, Encourage goal of using 250- 300dcal per session for weight loss and Other additional plan/interventions Healthy Eating Habits Will attend diet classes:: Yes Outcomes/Goals:: Consume diet rich in vegs,fruits,whole grain/high fiber,fish,lean meat, Limit sat/trans fats,cholesterol & added salts & sugars and Other additional outcome/goals: Intervention/Plan:: Assess current eating habits and Other Additional plan/interventions 30-day Reassessments:: Met Reassessment Notes & Comments:: Pt has attended nutrition class. Pt understands the benefits of a hearth healthy low sodium diet. Education Gave educational materials for:: Signs & symptoms of hypoglycemia, Signs & symptoms of hyperglycemia, Relate diabetes to coronary artery disease and Healthy eating Core - Final Assessment Tobacco Use How many cigarettes do you smoke per day?: 1 Years Smokin Hypertension Resting Blood Pressure:: 126/82 [place] [employer] Hypertension Guidelines Core - 60-Day Assessment Visit Date of Eval: 08/31/25 Session #:: 18 Medication Compliance Preventative Medication(s):: Aspirin, Statin/lipid and Beta roberto H/O mental health issues: depression, anxiety, or addiction?: No Doesn?t believe in the benefits of treatment?: No Believes medications are unnecessary or harmful?: No Has a concern about medication side effects?: No Expresses concern over the cost of medications?: No Outcomes/Goals: Verbalizes medications,desired effect & common side effects @ DC, Pt self-reports following medication regimen, Keeps card in wallet w/medications listed by DC and Other additional outcome/goals: Interventions/plans: Instruct on medication effects & side effects, Review medication list w/patient every two weeks, Instruct importance of taking meds as ordered & assist problem solving and Other additional Tobacco Use Tobacco Use: Cigarettes How many cigarettes do you smoke per day?: 1 Years Smokin Outcomes/Goals: Smoking cessation achieved or maintained by discharge, Identify aids/strategies for achieving smoking cessation by session 6 and Other additional outcome/goals Interventions/plan: Instruct on effects of smoking & provide smoking cessation resource, Assist pt to set quit date & provide encouragement, Assist pt to develop strategies to achieve/maintain quit date, Assist pt w/nicotine replacement & medication for cessation success and Other additional plan/interventions 30-day Reassessments:: Met Reassessment Notes & Comments:: Pt stopped in February of this year Hypertension Hypertension Diagnosis:: Hypertension ICD-10 I10 Resting Blood Pressure:: 148/90 Resting Blood Pressure:: 126/82 [place] [employer] Hypertension Guidelines Peak Exercise Blood Pressure:: 156/86 Outcomes/Goals: Able to verbalize/achieve optimal blood pressure <130/80, Incorporates diet changes & exercise for blood pressure control by DC and Other additional outcomes/goals Interventions/plan: Instruct on optimal blood pressure, hypertension & medications, Instruct on effects of sodium, alcohol, stress, exercise &hypertension and Other additional plan/interventions 30 day Reassessments:: Progressing Reassessment Notes & Comments:: Pt was recently started on Cymbalta. Since starting Cymbalta the pt's BP's have been elevated. Will continue to monitor and report to pt's physician if necessary Tobacco Cessation Referral Education Schedule Given:: Yes Psychosocial - 30-Day Assess Referral to Behavioral Health PS - Interventions: Yes: Attend Stress Management Classes Outcomes/Goals: See list Psychosocial Outcomes/Goals:: ID's personal stressors & 2 strategies to manage stress by discharge and Other Additional outcome/goals: Psychosocial - 60-Day Assess VIsit Date of Eval: 08/31/25 Session #:: 18 History of previous Mental disease:: No Psychosocial Test Tool Used:: [employer] QOL Cardiac and PHQ-9 Questionnaire phq-9 Severity See PHQ-9 Score: 2 Referral to Behavioral Health PS - Interventions: Yes: Attend Stress Management Classes Outcomes/Goals: See list Psychosocial Outcomes/Goals:: ID's personal stressors & 2 strategies to manage stress by discharge and Other Additional outcome/goals: Intervention/Plan: See List Interventions/Plan:: Assess stressors,coping strategies & signs of derpression on admission, Instruct/assist pt to develop coping & personal stress Mgt strategies, Refer to Behavioral Health if appropriate, Refer to Physician if appropriate, Instruct patient to recognize signs & symptoms of depression, Instruct patient to recog and Other additional plan/intervention 30-day Reassessments: 30 day Reassessments:: Met Reassessment Notes & Comments:: Pt denies any psychosocial issues at this time. Pt has attended stress management classes. Psychosocial - 90-Day Assess Referral to Behavioral Health PS - Interventions: Yes: Attend Stress Management Classes Psychosocial - Final Assessmen Referral to Behavioral Health PS - Interventions: Yes: Attend Stress Management Classes Nutrition - 90-Day Assessment Weight Mgt (Other Care) Height: 5 ft 11 in Weight:: 231 lb BMI: 32.2 Nutrition - Final Assessment Weight Mgt (Other Care) Height: 5 ft 11 in Weight:: 231 lb BMI: 32.2
[2025-08-31 10:09] VITALS: BP 126/82; BP 148/90; BMI 32.2
== END 2025-09-07 23:59 ==
LOC: CR 09:15
PROVIDERS: PCP Family Medicine; Referring Provider Internal Medicine Cardiovascular Disease; Visit Provider Internal Medicine Cardiovascular Disease
DX: Z95.5 Presence of coronary angioplasty implant and graft (principal); I25.119 Atherosclerotic heart disease of native coronary artery with unspecified angina pectoris
CPT/HCPCS: 93798